=== PATIENT | female | born 1950 | race Caucasian/White ===

== ENCOUNTER → 2017-07-19 17:16 | Outpatient (CLI) | payer MEDICARE, OTHER, SELFPAY | PROVIDERS: Family Provider Family Medicine Geriatric Medicine; PCP Family Medicine Geriatric Medicine; Visit Provider Family Medicine Geriatric Medicine | DX: Z13.89 Encounter for screening for other disorder (principal); E55.9 Vitamin D deficiency, unspecified; I10 Essential (primary) hypertension | CPT/HCPCS: 36415; 80053; 82306; 84443; 86803 ==

== ENCOUNTER → 2017-07-20 09:21 | Outpatient (CLI) | payer MEDICARE, OTHER, SELFPAY ==
[2017-07-20 12:20] LABS: Absolute Lymphocyte Count 1.59 X10^3/ul (0.83-4.51); Absolute Neutrophil Count 3.4 X10^3/uL (2.0-7.7); Basophil# 0.01 X10^3/uL; Basophil% 0.2 % (0-1); Eosinophil# 0.06 X10^3/uL; Eosinophils% 1.1 % (0-5); Hematocrit 45.7 % (37-47); Hemoglobin 15.1 g/dl (12.0-15.0); Lymphocyte # 1.59 X10^3/ul (4.0); Lymphocyte % 28.8 % (19-41); Mean Corpuscular Hgb 31.4 pg (27.0-32.0); Mean Platelet Vol. 10.6 fl (6.2-12.0); Monocyte% 9.1 % (0-10); Neutrophil # 3.36 X10^3/uL (2.7-7.7); Neutrophil % 60.8 % (47-70); Platelet Count 331 K/mm3 (150-450); RBC Distribution Width CV 12.6 % (11.6-14.6); RBC Distribution Width SD 43.4 fl (35.1-43.9); Red Blood Count 4.81 M/mm3 (4.2-5.4); White Blood Count 5.5 K/mm3 (4.4-11.0)
[2017-07-20 12:26] LABS: POSITIVE COUNT NO; POSITIVE DIFFERENTIAL NO; POSITIVE MORPHOLOGY NO
[2017-07-20 12:42] LABS: Vitamin D,25 Hydroxy 21.3 ng/mL (29.95-100.01)
[2017-07-20 13:19] LABS: ALB/GLOB Ratio 1.1 RATIO (0.9-2.4); AST(SGOT) 14 U/L (15-37); Alanine Aminotransfer ALT/SGPT 28 U/L (13-56); Albumin, Serum 3.9 g/dL (3.2-5.0); Alkaline Phosphatase 61 U/L (45-117); Anion Gap 6 (5-15); BUN 15 mg/dL (7-18); BUN/Creat Ratio 20.1 RATIO (10-20); Calcium,Total 8.4 mg/dL (8.5-10.1); Chloride 112 mmol/L (98-107); Creatinine, Serum 0.75 mg/dL (0.55-1.02); EST Glomerular Filtration Rate 82 mL/min (>60); Est Glom Filt Rate - Afr Amer 99 mL/min (>60); Globulin 3.5 g/dL (2.2-4.2); Glucose 104 mg/dL (74-106); Potassium 3.8 mmol/L (3.5-5.1); Protein, Total 7.4 g/dL (6.4-8.2); Sodium Level 143 mmol/L (136-145); Thyroid Stim Hormone (TSH) 2.02 uIU/mL (0.358-3.74)
[2017-07-21 10:55] LABS: Hep C Antibodies <0.1 s/co ratio (0.0-0.9)
== END ==
PROVIDERS: Family Provider Family Medicine Geriatric Medicine; PCP Family Medicine Geriatric Medicine; Visit Provider Family Medicine Geriatric Medicine
DX: Z13.89 Encounter for screening for other disorder (principal); E55.9 Vitamin D deficiency, unspecified; I10 Essential (primary) hypertension
CPT/HCPCS: 36415; 80053; 82306; 84443; 85025; 86803

== ENCOUNTER → 2017-07-27 13:44 | Outpatient (CLI) | payer MEDICARE, OTHER, SELFPAY ==
--- NOTE | 2017-07-27 13:52 | VDUE_ITS ---
Reason For Study: Edema Right Proximal Left Proximal Right jugular vein is spontaneous, widely Left jugular vein is spontaneous, widely patent, phasic, with no intraluminal patent, phasic, with no intraluminal echogenicity noted. echogenicity noted. Right subclavian vein is spontaneous, widely Left subclavian vein is spontaneous, widely patent, phasic, with no intraluminal patent, phasic, with no intraluminal echogenicity noted. echogenicity noted. Right Lower Arm Left Arm Right radial vein is compressible. Left axillary vein is spontaneous, patent, Right ulnar vein is compressible. phasic, competent, compressible and Right Arm demonstrates augmentation. Right axillary vein is spontaneous, patent, Left brachial vein is compressible. phasic, competent, compressible and Left cephalic vein is compressible. demonstrates augmentation. Left basilic vein is compressible. Right brachial vein is compressible. Left Lower Arm Right cephalic vein is compressible. Left radial vein is compressible. Right basilic vein is compressible. Left ulnar vein is compressible. < Interpretation Summary Deep veins of the upper extremities are bilaterally patent and compressible segmentally. There is no evidence of deep vein thrombosis on either side. The superficial veins of the upper extremities, the basilic and cephalic veins, are patent and compressible bilaterally. There is no evidence of upper extremity superficial thrombophlebitis on either side involving the veins imaged. Ordering Physician: Parish Plascencia Referring Physician: Parish Plascencia Chi Performed By: Alia Sam RVT
--- NOTE | 2017-07-27 14:20 | CT_ITS ---
STUDY: CT MAXILLOFACIAL SINUSES REASON FOR EXAM: Female, 67 years old. SINUSITIS. LOSS OF BALANCE TO LEFT RADIATION DOSAGE (If Supplied By Facility): CTDIvol = ( 29.38 ) mGy, DLP = ( 606.22 ) mGycm TECHNIQUE: The patient was scanned in a multi detector CT scanner. High resolution axial imaging was performed without the administration of intravenous contrast material. Sagittal and coronal images were reconstructed. Individualized dose optimization techniques were used for this CT. COMPARISON: None. FINDINGS: FRONTAL SINUSES: Normal aeration, without mucosal inflammatory disease. ETHMOIDAL SINUSES: Normal aeration, without mucosal inflammatory disease. MAXILLARY SINUSES: There is a mucous retention cyst and/or polyp of the right maxillary sinus. Mild mucosal thickening of the left maxillary sinus. SPHENOIDAL SINUSES: Mild mucoperiosteal thickening of the sphenoid sinus. There is patency of the bilateral maxillary infundibuli with normal uncinate processes, ethmoid bullae, and hiatus semilunaris. Normal bilateral middle turbinates. Normal bilateral inferior turbinates. Normal midline nasal septum. There is patency of the bilateral nasal airways. Severe degenerative findings of the right and left mandibular condyle. The visualized bilateral orbital contents are normal. CT/Sinus/Facial Bone IMPRESSION: There is a mucous retention cyst and/or polyp of the right maxillary sinus. Mild mucoperiosteal thickening of the sphenoid sinus. Mild mucosal thickening of the left maxillary sinus. Electronically Signed: Angus Rosales MD at 16:51 EDT , Service support ,
== END ==
PROVIDERS: Family Provider Family Medicine Geriatric Medicine; PCP Family Medicine Geriatric Medicine; Visit Provider Family Medicine Geriatric Medicine
DX: J32.9 Chronic sinusitis, unspecified (principal); R60.0 Localized edema
CPT/HCPCS: 70486; 93970

== ENCOUNTER → 2017-08-23 08:56 | Outpatient (CLI) | payer MEDICARE, OTHER, SELFPAY ==
--- NOTE | 2017-08-23 08:59 | BI_ITS ---
MAMMOGRAPHY - BILATERAL SCREENING REASON FOR EXAM: Female, 67 years old. Routine annual screening examination. PERTINENT HISTORY: Mother with breast cancer. TECHNIQUE: Digital bilateral breast oneil (3D mammographic acquisition) in the CC and MLO projections. 2-D mediolateral oblique (MLO) and craniocaudad (CC) views of both breasts were obtained. CAD: Full Field Digital Mammography with Computer Added Detection was performed. COMPARISON: Comparison is made with prior study dated February 02, 2014. FINDINGS: Breast Composition: The breasts are almost entirely fatty. There are no dominant masses or suspicious calcifications. The previously seen nodular density in the mid lateral aspect of the right breast as decreased in size. It presently measures 7.5 mm. This may represent a small intramammary lymph node. No other significant abnormalities are identified. There has been no significant change since the prior study. BI/SCREENING MAMM (CAD), BILAT IMPRESSION: Stable bilateral screening mammogram. Yearly follow-up mammogram recommended. (A) ASSESSMENT CATEGORY: BIRADS Category 2: Benign. A letter regarding these results will be sent to the patient by the facility within 30 days. Approximately 10% of breast cancers are not detected by mammography. A normal mammogram should not delay biopsy of a clinically suspicious abnormality. [id number] Electronically Signed: Billy Mathew MD at 7:55 EDT Tel [phone], Service support ,
--- NOTE | 2017-08-23 09:03 | BD_ITS ---
STUDY: DUAL ENERGY X-RAY ABSORPTIOMETRY / DXA REASON FOR EXAM: Female, 67 years old. The patient is postmenopausal. Loss of height. TECHNIQUE: Bone Mineral Density (BMD) measurements of lumbar spine and bilateral hips were obtained. COMPARISON: Comparison is made with prior study dated May 06, 2009. FINDINGS: Lumbar Spine (L1-L4): g/cm2 (1.646) / T-score (4.0) / Z-score (5.6) Findings are suggestive of normal bone density with a low fracture risk. Left Femur Total: g/cm2 (1.137) / T-score (1.0) / Z-score (2.4) Left Femoral Neck: g/cm2 (0.952) / T-score (-0.6) / Z-score (1.0) Right Femur Total: g/cm2 (1.032) / T-score (0.2) / Z-score (1.5) Right Femoral Neck: g/cm2 (1.001) / T-score (-0.3) / Z-score (1.3) The T-Scores on the most recent prior examination were: Lumbar Spine (L1-L4): There has been improvement of bone density since the previous examination. Left Femur Total: which represents a worsening of 8.3%. Right Femur Total: which represents a worsening of 11.1%. BD/Dexa Bone Density Study IMPRESSION: The patient is considered normal as outlined below according to World Dion Organization (WHO) criteria with a low fracture risk. There has been worsening of bone density since the previous examination. Reference Information: The T-score is the number of standard deviations above or below the standard which is normal for young adults at their peak bone mineral density. The World Health Organization (WHO) interprets the T-scores as follows: Above -1 Normal bone density Between -1 and -2.5 Osteopenia Equal to / or below -2.5 Osteoporosis As a practical clinical guideline, osteopenia may be graded as follows: Mild -1 through -1.5 Moderate -1.6 through -2.0 Severe -2.1 through -2.4 The Z-score is the number of standard deviations above or below age-matched controls. A Z-score of less than -1.5 would be considered abnormal. References: 1. NIH Osteoporosis and Related Bone Diseases http://www.osteo.org 2. International Society for Clinical Densitometry http://www.iscd.org 3. National Osteoporosis Foundation http://www.nof.org Electronically Signed: Billy Mathew MD at 10:56 EDT Tel [phone], Service support ,
== END ==
PROVIDERS: Family Provider Family Medicine Geriatric Medicine; PCP Family Medicine Geriatric Medicine; Visit Provider Family Medicine Geriatric Medicine
DX: Z78.0 Asymptomatic menopausal state (principal); Z12.31 Encounter for screening mammogram for malignant neoplasm of breast
CPT/HCPCS: 77063; 77067; 77080

== ENCOUNTER → 2017-09-13 11:13 | Outpatient (CLI) | payer MEDICARE, OTHER, SELFPAY ==
[2017-09-13 11:59] LABS: Creatinine, Serum 0.78 mg/dL (0.55-1.02); EST Glomerular Filtration Rate 79 mL/min (>60); Est Glom Filt Rate - Afr Amer 95 mL/min (>60)
== END ==
PROVIDERS: Family Provider Family Medicine Geriatric Medicine; PCP Family Medicine Geriatric Medicine; Visit Provider Otolaryngology
DX: H90.A21 Sensorineural hearing loss, unilateral, right ear, with restricted hearing on the contralateral side (principal)
CPT/HCPCS: 36415; 82565

== ENCOUNTER → 2017-09-25 17:08 | Outpatient (CLI) | payer MEDICARE, OTHER, SELFPAY ==
--- NOTE | 2017-09-25 17:15 | RAD_ITS ---
STUDY: X-RAY CHEST REASON FOR EXAM: Female, 67 years old. Shortness of breath. TECHNIQUE: PA and lateral views of the chest. COMPARISON: None. FINDINGS: The lungs are clear and expanded. There is no demonstrated pleural abnormality. Normal size heart. Normal mediastinum and azra. Normal visualized pulmonary arteries. Normal visualized aortic arch and descending thoracic aorta. There are diffuse degenerative changes of the visualized thoracic spine. Normal visualized ribs, clavicles, and shoulders. There is no demonstrated abnormality of the visualized soft tissue structures of the upper abdomen. RAD/Chest PA and Lateral IMPRESSION: No acute cardiopulmonary process. Electronically Signed: Ana Paula Maurer MD at 19:49 EDT Tel , Service support ,
[2017-09-25 18:30] LABS: Absolute Lymphocyte Count 2.06 X10^3/ul (0.83-4.51); Absolute Neutrophil Count 5.7 X10^3/uL (2.0-7.7); Basophil# 0.02 X10^3/uL; Basophil% 0.2 % (0-1); Eosinophil# 0.09 X10^3/uL; Eosinophils% 1.1 % (0-5); Hematocrit 44.9 % (37-47); Lymphocyte # 2.06 X10^3/ul (4.0); Lymphocyte % 24.3 % (19-41); Mean Corp Hgb Conc 33.4 g/gl (32-36); Mean Corpuscular Hgb 31.8 pg (27.0-32.0); Mean Corpuscular Volume 95.3 fL (81-99); Mean Platelet Vol. 10.1 fl (6.2-12.0); Monocyte# 0.64 X10^3/uL; Monocyte% 7.5 % (0-10); Neutrophil # 5.67 X10^3/uL (2.7-7.7); Neutrophil % 66.9 % (47-70); Platelet Count 348 K/mm3 (150-450); RBC Distribution Width CV 12.6 % (11.6-14.6); RBC Distribution Width SD 43.5 fl (35.1-43.9); Red Blood Count 4.71 M/mm3 (4.2-5.4); White Blood Count 8.5 K/mm3 (4.4-11.0)
[2017-09-25 18:41] LABS: D-Dimer Quantitative (DVT/PE) 0.36 FEU/ug/m (0.27-0.49)
[2017-09-25 18:44] LABS: POSITIVE COUNT NO; POSITIVE DIFFERENTIAL NO; POSITIVE MORPHOLOGY NO
[2017-09-25 18:49] LABS: ALB/GLOB Ratio 1.2 RATIO (0.9-2.4); AST(SGOT) 18 U/L (15-37); Alanine Aminotransfer ALT/SGPT 30 U/L (13-56); Albumin, Serum 4.4 g/dL (3.2-5.0); Alkaline Phosphatase 63 U/L (45-117); Anion Gap 11 (5-15); BNP,B-Type NATRIURETIC PEPTIDE 75.9 pg/mL (0-100); BUN 19 mg/dL (7-18); BUN/Creat Ratio 19.9 RATIO (10-20); CPK Total, Creatine Kinase 216 U/L (26-192); Calcium,Total 9.5 mg/dL (8.5-10.1); Chloride 106 mmol/L (98-107); Creatinine, Serum 0.95 mg/dL (0.55-1.02); EST Glomerular Filtration Rate 62 mL/min (>60); Est Glom Filt Rate - Afr Amer 75 mL/min (>60); Globulin 3.8 g/dL (2.2-4.2); Glucose 99 mg/dL (74-106); Potassium 3.1 mmol/L (3.5-5.1); Protein, Total 8.2 g/dL (6.4-8.2); Sodium Level 142 mmol/L (136-145)
[2017-09-27 15:43] LABS: Myoglobin, Serum 57 ng/mL (25-58)
== END ==
PROVIDERS: Family Provider Family Medicine Geriatric Medicine; PCP Family Medicine Geriatric Medicine; Visit Provider Family Medicine Geriatric Medicine
DX: R06.02 Shortness of breath (principal)
CPT/HCPCS: 36415; 71046; 80053; 82550; 83874; 83880; 84484; 85025; 85379

== ENCOUNTER → 2017-09-26 10:43 | Outpatient (CLI) | payer MEDICARE, OTHER, SELFPAY ==
--- NOTE | 2017-09-26 10:46 | VDLE_ITS ---
Reason For Study: LEG SWELLING RIGHT LEFT GSV is normal. GSV is normal. CFV is compressible, spontaneous, phasic, CFV is compressible, spontaneous, phasic, competent and demonstrates normal competent, and demonstrates normal augmentation. augmentation. FV is compressible, spontaneous, phasic, FV is compressible, spontaneous, phasic, competent and demonstrates normal competent and demonstrates normal augmentation. augmentation. POP V is compressible, spontaneous, phasic, POP V is compressible, spontaneous, phasic, competent and demonstrates normal competent and demonstrates normal augmentation. augmentation. T/P Trunk is compressible. T/P Trunk is compressible. PTV is compressible. PTV is compressible. RT PerV is compressible. LT PerV is compressible. Procedure Exam performed in department. A preliminary report was called and/or faxed to Dr. Plascencia. Interpretation Summary Deep veins of the lower extremities are bilaterally patent and compressible segmentally. There is no evidence of deep vein thrombosis on either side. Valvular competence appears intact within the proximal deep venous systems bilaterally. The greater saphenous veins appear bilaterally patent and compressible segmentally. Ordering Physician: Parish Plascencia Referring Physician: Parish Plascencia Chi Performed By: Alia Sam RVT
== END ==
PROVIDERS: Family Provider Family Medicine Geriatric Medicine; PCP Family Medicine Geriatric Medicine; Visit Provider Family Medicine Geriatric Medicine
DX: R60.0 Localized edema (principal)
CPT/HCPCS: 93970

== ENCOUNTER → 2017-10-04 08:48 | Outpatient (CLI) | payer MEDICARE, OTHER, SELFPAY ==
--- NOTE | 2017-10-04 09:56 | ECHOD_ITS ---
Reason For Study: SOB Procedure This was a 2D Doppler, Color Flow transthoracic echocardiogram. Exam performed in department. Left Ventricle Normal size and thickness. The estimated ejection fraction is 65 %. Stage 1 diastolic dysfunction. No regional wall motion abnormalities noted. Right Ventricle Normal size and thickness. Normal systolic function. Atria Normal left atrium. Normal right atrium. Normal atrial septum. Mitral Valve The mitral valve is structurally normal. No prolapse or stenosis seen. Tricuspid Valve Normal tricuspid valve. Trivial tricuspid valve insufficiency. Right ventricular systolic pressure estimated to be 40 mmHg. Mild pulmonary hypertension. Aortic Valve Normal aortic valve. Trisinus/trileaflet aortic valve. Pulmonic Valve Normal pulmonic valve. Great Vessels Normal aortic root. Normal arch. Normal inferior vena cava. Inferior vena cava collapse with sniff. Pericardium/Pleural No pericardial effusion. MMode/2D Measurements & Calculations LVIDd: 4.5 cm IVSd: 1.2 cm Ao root diam: 3.1 cm LVIDs: 3.3 cm LVPWd: 1.2 cm LA dimension: 3.3 cm FS: 25.9 % LAV(MOD-bp): 45.2 ml LVAd ap4: 33.5 cm2 SV(MOD-sp4): 74.5 ml LAV(MOD-bp) Indexed: 20.8 ml/m2 EDV(MOD-sp4): 119.2 ml LAV(MOD-sp2): 55.8 ml EDV(sp4-el): 123.4 ml LAV(MOD-sp4): 34.7 ml LVAs ap4: 18.4 cm2 ESV(MOD-sp4): 44.7 ml ESV(sp4-el): 44.8 ml EF(MOD-sp4): 62.5 % EF(sp4-el): 63.7 % SV(sp4-el): 78.6 ml LA A4 area: 14.7 cm2 RA A4 area: 13.7 cm2 Time Measurements MV dec time: 0.17 sec Doppler Measurements & Calculations MV E max osei: 77.8 cm/sec Lat Peak E' Osei: 8.0 cm/sec Med Peak E' Osei: 8.0 cm/sec MV A max osei: 100.6 cm/sec E/E' lat: 9.8 E/E' med: 9.8 MV E/A: 0.77 Ao V2 max: 159.5 cm/sec LV V1 max: 133.0 cm/sec PA V2 max: 114.8 cm/sec Ao max P.2 mmHg LV V1 max P.1 mmHg TR max osei: 294.4 cm/sec TR max P.8 mmHg Interpretation Summary The estimated ejection fraction is 65 %. Stage 1 diastolic dysfunction. Trivial tricuspid valve insufficiency. Right ventricular systolic pressure estimated to be 40 mmHg. Mild pulmonary hypertension. Comapred to echo report dated 04/07/2010, no appreciable changes noted. Ordering Physician: Parish Plascencia Referring Physician: Parish Plascencia Chi Performed By: Nerissa Pelayo RDCS
--- NOTE | 2017-10-04 11:17 | PFT ---
INTRODUCTION: The patient is a 67-year-old female that presents for pulmonary function testing secondary to a diagnosis of shortness of breath. Respiratory therapy reports good patient effort. Bronchodilators were used during testing. INTERPRETATION: Forced expiration spirometry demonstrates no evidence of a large airways obstructive ventilatory defect. There was no significant response to aerosolized bronchodilators, based upon strict ATS criteria. Spirograms are of good quality and plateau normally. Body plethysmography was performed and reveals lung volumes to be within normal limits. Diffusing capacity by single breath CO is within normal limits at 92% of predicted. IMPRESSION: These pulmonary function studies are essentially within normal limits.
== END ==
PROVIDERS: Family Provider Family Medicine Geriatric Medicine; PCP Family Medicine Geriatric Medicine; Visit Provider Family Medicine Geriatric Medicine
DX: R06.02 Shortness of breath (principal)
CPT/HCPCS: 93306; 94060; 94726; 94729

== ENCOUNTER → 2017-10-09 15:04 | Outpatient (CLI) | payer MEDICARE, OTHER, SELFPAY | PROVIDERS: Family Provider Family Medicine Geriatric Medicine; PCP Family Medicine Geriatric Medicine; Visit Provider Obstetrics & Gynecology | DX: N39.41 Urge incontinence (principal) | CPT/HCPCS: 87086; 87088 ==

== ENCOUNTER → 2017-10-10 13:33 | Outpatient (CLI) | payer MEDICARE, OTHER, SELFPAY ==
[2017-10-10 17:38] LABS: Anion Gap 9 (5-15); BUN 17 mg/dL (7-18); BUN/Creat Ratio 21.1 RATIO (10-20); Calcium,Total 9.2 mg/dL (8.5-10.1); Chloride 104 mmol/L (98-107); EST Glomerular Filtration Rate 75 mL/min (>60); Est Glom Filt Rate - Afr Amer 91 mL/min (>60); Glucose 92 mg/dL (74-106); Sodium Level 143 mmol/L (136-145)
== END ==
PROVIDERS: Family Provider Family Medicine Geriatric Medicine; PCP Family Medicine Geriatric Medicine; Visit Provider Family Medicine Geriatric Medicine
DX: I27.0 Primary pulmonary hypertension (principal)
CPT/HCPCS: 36415; 80048

== ENCOUNTER → 2017-10-19 09:27 | Outpatient (CLI) | payer MEDICARE, OTHER, SELFPAY ==
[2017-10-19 11:52] LABS: Anion Gap 8 (5-15); BUN 12 mg/dL (7-18); BUN/Creat Ratio 16.8 RATIO (10-20); Calcium,Total 8.5 mg/dL (8.5-10.1); Chloride 105 mmol/L (98-107); Creatinine, Serum 0.72 mg/dL (0.55-1.02); EST Glomerular Filtration Rate 86 mL/min (>60); Est Glom Filt Rate - Afr Amer 104 mL/min (>60); Glucose 111 mg/dL (74-106); Potassium 3.6 mmol/L (3.5-5.1); Sodium Level 141 mmol/L (136-145)
== END ==
PROVIDERS: Family Provider Family Medicine Geriatric Medicine; PCP Family Medicine Geriatric Medicine; Visit Provider Family Medicine Geriatric Medicine
DX: E87.6 Hypokalemia (principal)
CPT/HCPCS: 36415; 80048

== ENCOUNTER → 2018-01-23 09:35 | Outpatient (CLI) | payer MEDICARE, OTHER, SELFPAY ==
[2018-01-23 13:05] LABS: Absolute Lymphocyte Count 2.18 X10^3/ul (0.83-4.51); Absolute Neutrophil Count 3.7 X10^3/uL (2.0-7.7); Basophil# 0.01 X10^3/uL; Basophil% 0.2 % (0-1); Eosinophil# 0.09 X10^3/uL; Eosinophils% 1.4 % (0-5); Hematocrit 49.2 % (37-47); Hemoglobin 16.1 g/dl (12.0-15.0); Lymphocyte # 2.18 X10^3/ul (4.0); Lymphocyte % 33.1 % (19-41); Mean Corp Hgb Conc 32.7 g/gl (32-36); Mean Corpuscular Hgb 31.8 pg (27.0-32.0); Mean Corpuscular Volume 97.2 fL (81-99); Mean Platelet Vol. 11.3 fl (6.2-12.0); Monocyte# 0.62 X10^3/uL; Monocyte% 9.4 % (0-10); Neutrophil # 3.68 X10^3/uL (2.7-7.7); Neutrophil % 55.7 % (47-70); Platelet Count 349 K/mm3 (150-450); RBC Distribution Width CV 12.6 % (11.6-14.6); RBC Distribution Width SD 44.6 fl (35.1-43.9); Red Blood Count 5.06 M/mm3 (4.2-5.4); White Blood Count 6.6 K/mm3 (4.4-11.0)
[2018-01-23 13:32] LABS: AST(SGOT) 15 U/L (15-37); Alanine Aminotransfer ALT/SGPT 34 U/L (13-56); Alkaline Phosphatase 69 U/L (45-117); Anion Gap 9 (5-15); BUN 14 mg/dL (7-18); BUN/Creat Ratio 17.7 RATIO (10-20); Calcium,Total 8.8 mg/dL (8.5-10.1); Chloride 105 mmol/L (98-107); Creatinine, Serum 0.79 mg/dL (0.55-1.02); EST Glomerular Filtration Rate 77 mL/min (>60); Est Glom Filt Rate - Afr Amer 93 mL/min (>60); Globulin 4.1 g/dL (2.2-4.2); Glucose 106 mg/dL (74-106); Potassium 3.6 mmol/L (3.5-5.1); Protein, Total 8.1 g/dL (6.4-8.2); Sodium Level 140 mmol/L (136-145); Thyroid Stim Hormone (TSH) 2.03 uIU/mL (0.358-3.74)
[2018-01-23 14:08] LABS: POSITIVE COUNT NO; POSITIVE DIFFERENTIAL NO; POSITIVE MORPHOLOGY NO
== END ==
PROVIDERS: Family Provider Family Medicine Geriatric Medicine; PCP Family Medicine Geriatric Medicine; Visit Provider Family Medicine Geriatric Medicine
DX: E55.9 Vitamin D deficiency, unspecified (principal); I10 Essential (primary) hypertension
CPT/HCPCS: 36415; 80053; 82306; 84443; 85025

== ENCOUNTER → 2018-02-06 15:30 | Outpatient (CLI) | payer MEDICARE, OTHER, SELFPAY ==
[2018-01-31 09:09] VITALS: BMI 34.8
--- NOTE | 2018-02-06 15:30 | MASS_PTH ---
PATIENT: ELY HERNÁNDEZ LOC: [facility] U#:[id number] AGE/SX: 75/F ROOM: RE02/06/[address]: Dr. Dragan Webb MD : 1950 BED: DIS: SPEC #: [id number] RECD: 02/07/18 08:10 STATUS: MARYBEL REZac #: [id number] JSOE: 02/06/18 15:[address]: Dragan Webb DEPT: SURGICAL PATHOLOGY RECD BY: Manish Treadwell ENTERED: 02/07/18 09:02 SP TYPE: Mass OTHR DR: Dr. Parish Plascencia MD Tissues: Scalp, NOS Procedures: Surgery Specimen Level III HEADER OPERATION: Excision scalp mass PRE-OP DIAGNOSIS: Scalp mass TISSUE SUBMITTED: Scalp tissue MICROSCOPIC DIAGNOSIS Scalp mass, excision: Trichilemmal cyst with focal calcifications. SJ:jacoyb 02/08/18 MICROSCOPIC DESCRIPTION Slides are reviewed. GROSS DESCRIPTION Received in fixative is one container labeled with the patient's name and designated scalp. The specimen consists of a piece of rudd-white skin with underlying tissue. The skin piece measures 3.5 x 0.6 cm. The underlying tissue measures 3 x 2.5 x 2 cm. Also present in the container is a detached piece of skin measuring 1.5 x 0.3 x 0.3 cm. The underlying tissue is partly disrupted and appears to consist of cysts. Watch Engineer sections are submitted in two cassettes. / SJ:jacoby 02/07/18 TC:5 CPT: 58993
== END ==
PROVIDERS: Family Provider Family Medicine Geriatric Medicine; PCP Family Medicine Geriatric Medicine; Referring Provider Surgery; Visit Provider Surgery
DX: R22.0 Localized swelling, mass and lump, head (principal)
CPT/HCPCS: 88304; 88305

== ENCOUNTER → 2018-05-08 06:22 | Outpatient (CLI) | payer MEDICARE, OTHER, SELFPAY ==
[2018-01-31 09:09] VITALS: BMI 34.8
--- NOTE | 2018-05-08 13:12 | STRESSREP ---
Stress Test Report Exercise myocardial perfusion stress test. 68-year-old man with a history of dyspnea. Medications: Pravastatin furosemide amlodipine. Stress protocol: Resting EKG demonstrates normal sinus rhythm with a rate of 77 bpm resting blood pressure 168/90 mmHg. The patient exercised according to the regular Berhane protocol for total duration of 6 minutes. The maximum heart rate attained was 136 bpm which was 89% of maximum predicted heart rate the maximum workload was 7 metabolic equivalents. At rest nonspecific ST-T wave changes were noted. The patient maintained sinus rhythm throughout the recording. At peak exercise there was upsloping ST depression of 1.4 mm not meeting the criteria for ischemia in lead II and aVF and V5 and V6 being less than 1 mm. The resting blood pressure 168/90 with a peak blood pressure 194/80 mmHg. Myocardial perfusion protocol. 14.6 mCi of technetium 99m sestamibi was injected at rest. The patient exercised according to regular Berhane protocol for 6 minutes. At peak exercise 44.1 mCi of technetium 99m sestamibi was injected stress images were obtained stress and rest images were reconstructed and compared in the short axis vertical long horizontal long axis. Gated images were also obtained. Perfusion SPECT analysis: Review of the stress images demonstrate normal uptake of tracer noted in all areas of the myocardium. There is significant GI attenuation artifact noted on the stress and resting images. No obvious ischemia is noted in this area. The gated ejection fraction is noted to be 70%. Conclusion: Exercise myocardial perfusion stress test with no obvious ischemia noted. Preserved ejection fraction. Good functional capacity.
== END ==
PROVIDERS: Family Provider Family Medicine Geriatric Medicine; PCP Family Medicine Geriatric Medicine; Referring Provider Internal Medicine Pulmonary Disease; Visit Provider Internal Medicine Pulmonary Disease
DX: R06.00 Dyspnea, unspecified (principal)
CPT/HCPCS: 78452; 93017; A9500; A4216

== ENCOUNTER → 2018-06-04 16:23 | Outpatient (CLI) | payer MEDICARE, OTHER, SELFPAY ==
[2018-01-31 09:09] VITALS: BMI 34.8
--- NOTE | 2018-06-04 15:59 | LES_PTH ---
PATIENT: ELY HERNÁNDEZ LOC: [facility] U#:[id number] AGE/SX: 75/F ROOM: RE06/04/[address]: Dr. Parish Plascencia MD : 1950 BED: DIS: SPEC #: [id number] RECD: 06/05/18 12:59 STATUS: MARYBEL JULIETH #: [id number] JOSE: 06/04/18 15:[address]: Parish Plascencia Chi DEPT: SURGICAL PATHOLOGY RECD BY: Manish Treadwell Tissues: Skin of face, NOS Procedures: Surgery Specimen Level IV HEADER OPERATION: Not noted PRE-OP DIAGNOSIS: L81.9 TISSUE SUBMITTED: Left cheek MICROSCOPIC DIAGNOSIS Left cheek, skin lesion, shave biopsy: Seborrheic keratosis. CE:jacoby 06/06/18 MICROSCOPIC DESCRIPTION Slides are reviewed. GROSS DESCRIPTION Received in fixative is one container labeled with the patient's name and designated left cheek. The specimen consists of a piece of rudd-white skin measuring 1.2 x 1 cm and 0.2 cm in thickness. The specimen is inked, serially sectioned and submitted entirely in one cassette. / SJ:rg 06/05/18 TC:1 CPT: 71346
== END ==
PROVIDERS: Family Provider Family Medicine Geriatric Medicine; PCP Family Medicine Geriatric Medicine; Visit Provider Family Medicine Geriatric Medicine
DX: L81.9 Disorder of pigmentation, unspecified (principal)
CPT/HCPCS: 88305

== ENCOUNTER 2018-06-20 10:03 | Emergency (ER) | payer MEDICARE, OTHER, SELFPAY ==
[2018-01-31 09:09] VITALS: BMI 34.8
[2018-06-20 10:03] VITALS: BP 162/97; PULSE 79; RESP 16; TEMP 36.4; O2SAT 96; BMI 36.3
--- NOTE | 2018-06-20 10:22 | CT_ITS ---
STUDY: CT BRAIN WITHOUT CONTRAST REASON FOR EXAM: Female, 68 years old. Vertigo. RADIATION DOSAGE (If Supplied By Facility): CTDIvol = ( 44.99 ) mGy, DLP = ( 762.36 ) mGycm TECHNIQUE: Transaxial CT imaging of the brain was performed without administration of intravenous contrast material. Individualized dose optimization techniques were used for this CT. COMPARISON: No relevant priors. FINDINGS: Normal soft tissue structures. There is hyperostosis frontalis internus. Normal size ventricles and extra-axial spaces for the patient's age. Normal white matter tracts of the cerebral hemispheres. Normal basal ganglia and thalami. Normal brainstem. Normal cerebellum. There is no intracranial hemorrhage. There are no findings of an acute ischemic infarction. Mucosal polyp or retention cyst at the base of the right maxillary sinus. CT/Brain/Head without Contrast IMPRESSION: Retention cyst or polyp at the base of the right maxillary sinus. Electronically Signed: Billy Mathew, at 11:42 EDT , Service support ,
--- NOTE | 2018-06-20 10:22 | EKG12_ITS ---
Test Reason : DIZZINESS Blood Pressure : / mmHG Vent. Rate : 075 BPM Atrial Rate : 075 BPM P-R Int : 170 ms QRS Dur : 096 ms QT Int : 406 ms P-R-T Axes : 044 007 055 degrees QTc Int : 453 ms Normal sinus rhythm with sinus arrhythmia Nonspecific ST abnormality Poor R-Wave Progression Abnormal ECG Confirmed by BLESSING GORMAN, PELON ([id number]), desk editor GRANT CARTER ([id number]) on 06/24/2018 10:23:08 AM Referred By: CELSO Confirmed By:PELON FUNK MD
--- NOTE | 2018-06-20 10:29 | ED.DCSUM_ITS ---
- ER Visit Summary Date of Service: 06/20/18 Chief Complaint: Dizziness History of Present Illness: The patient is a 68 F who presents with dizziness that has been intermittent over the past week. Patient describes her dizziness as feeling off balance and the room was spinning. Patient states this is worse with certain movements and improves when she just remains still. Patient states she does have some tinnitus which is a buzzing sound that only last for a couple seconds. Patient does admit to some decreased hearing. Patient also admits to a left occipital headache that she describes as a fullness. Patient also admits to some paresthesias in the left side of her face. Physical Examination: Vital signs are stable. Patient is afebrile. Patient is in no acute distress. Pupils are equal, round, and reactive to light bilaterally. Extraocular muscles are intact. There is no nystagmus noted. There is a mild effusion behind the right tympanic membrane but there is no erythema. The left tympanic membrane is clear. Oral mucosa is pink and moist. Neck is supple. Trachea is midline. There is no JVD noted. Heart was regular rate and rhythm. Lungs are clear and equal bilateral. Skin is warm dry. Cranial nerves II through XII are intact. There are no focal motor or sensory deficits noted. The remaining physical exam is within normal limits. Test Results: EKG showed normal sinus rhythm with a rate of 75. There are no acute ST or T wave changes noted. CBC, basic metabolic profile, troponin, and urinalysis were obtained and were normal. PA and lateral chest x-ray was obtained and was normal. CT scan of the brain was obtained. There is no acute intracranial abnormality. Emergency Department Course and Treatment: Patient was given a dose of meclizine here. Patient felt better on reevaluation. Patient was given a prescription for meclizine. Patient was instructed to follow-up with her primary care physician in 5-7 days. Patient understood and was agreeable with the plan. All questions were answered. Disposition: Discharge home Impression: Dizziness This note was generated with [employer] dictation software. It may contain incorrect words, spelling, and punctuation that were not noted in review of the chart prior to signing ED Disposition - Plan for ED Patient: Disposition: Home or Assisted Living Diagnosis: Dizziness Instructions: ED Dizziness [facility] Prescriptions: Meclizine HCl [Antivert] 25 mg PO 4X/DAY PRN PRN #20 tab PRN Reason: Dizziness Referrals: Parish Plascencia Chi, MD [Primary Care Provider] - 5-7 Days
[2018-06-20 10:57] LABS: Absolute Lymphocyte Count 2.06 X10^3/ul (0.83-4.51); Absolute Neutrophil Count 3.2 X10^3/uL (2.0-7.7); Basophil# 0.01 X10^3/uL; Basophil% 0.2 % (0-1); Eosinophil# 0.11 X10^3/uL; Eosinophils% 1.8 % (0-5); Hematocrit 47.1 % (37-47); Hemoglobin 15.7 g/dl (12.0-15.0); Lymphocyte # 2.06 X10^3/ul (4.0); Lymphocyte % 34.1 % (19-41); Mean Corp Hgb Conc 33.3 g/gl (32-36); Mean Corpuscular Hgb 30.7 pg (27.0-32.0); Mean Platelet Vol. 10.2 fl (6.2-12.0); Monocyte# 0.64 X10^3/uL; Monocyte% 10.6 % (0-10); Neutrophil # 3.22 X10^3/uL (2.7-7.7); Neutrophil % 53.3 % (47-70); Platelet Count 348 K/mm3 (150-450); RBC Distribution Width CV 12.3 % (11.6-14.6); Red Blood Count 5.12 M/mm3 (4.2-5.4)
[2018-06-20 10:58] LABS: POSITIVE COUNT NO; POSITIVE DIFFERENTIAL NO; POSITIVE MORPHOLOGY NO
[2018-06-20 11:00] LABS: Bacteria 0 SEEN /hpf (None Seen)
[2018-06-20 11:04] LABS: Color, Urine Yellow (Yellow); Glucose, Dipstick Normal (Normal); Ketone-Dipstick 5 mg/dl (Negative); Leukocyte Esterase-Dipstick 25 /ul (Negative); Nitrite-Dipstick Negative (Negative); Occult Blood-Urine 10 /ul (Negative); Protein-Dipstick 15 mg/dl (Negative); Specific Gravity, Urine 1.025 (1.002-1.030); Urine Clarity Clear (Clear); Urine Urobilinogen 1 mg/dl (Normal)
[2018-06-20 11:06] LABS: Urine Bilirubin Dipstick 1 mg/dL (Negative)
[2018-06-20 11:10] LABS: Mucous, Urine 3+ /hpf (<or=2+); Squamous Epithelial Cells - UA 0-5 SEEN /hpf (5-10); White Blood Cells 0-5 SEEN /hpf (0-5)
--- NOTE | 2018-06-20 11:10 | RAD_ITS ---
STUDY: X-RAY CHEST REASON FOR EXAM: Female, 68 years old. Chest pain. TECHNIQUE: AP and lateral views of the chest. COMPARISON: Comparison is made with prior study dated April 14, 2010. FINDINGS: The lungs are clear and expanded. Scattered calcified granulomas. There is no demonstrated pleural abnormality. Normal size heart. Normal mediastinum and azra. Normal visualized pulmonary arteries. There is atherosclerotic tortuosity of the aortic arch and descending thoracic aorta. Normal visualized thoracic spine. Normal visualized ribs, clavicles, and shoulders. There is no demonstrated abnormality of the visualized soft tissue structures of the upper abdomen. RAD/Chest PA and Lateral IMPRESSION: Normal x-ray examination of the chest. Electronically Signed: Billy Mathew, at 11:43 EDT , Service support ,
[2018-06-20 11:11] LABS: Red Blood Cells-Urine 0-5 SEEN /hpf (0-5)
[2018-06-20 11:17] LABS: Anion Gap 6 (5-15); BUN 19 mg/dL (7-18); BUN/Creat Ratio 25.8 RATIO (10-20); Calcium,Total 8.9 mg/dL (8.5-10.1); Chloride 107 mmol/L (98-107); Creatinine, Serum 0.74 mg/dL (0.55-1.02); EST Glomerular Filtration Rate 83 mL/min (>60); Est Glom Filt Rate - Afr Amer 101 mL/min (>60); Estimated Creatinine Clearance 52.36 ml/min; Glucose 118 mg/dL (74-106); Potassium 3.8 mmol/L (3.5-5.1); Sodium Level 141 mmol/L (136-145)
[2018-06-20] MEDS: Meclizine HCl 25 MG Tablet PO (11:36)
[2018-06-20 11:37] VITALS: BP 158/63; BP 158/80; BP 165/92; PULSE 73; PULSE 75; PULSE 78
[2018-06-20 13:13] VITALS: BP 170/67; PULSE 82; RESP 20; O2SAT 94
[2018-06-20 13:30] VITALS: BP 170/67; PULSE 68; RESP 16; O2SAT 97
== END 2018-06-20 13:30 | disposition home or self-care (01) ==
PROVIDERS: Emergency Provider Emergency Medicine; Family Provider Family Medicine Geriatric Medicine; PCP Family Medicine Geriatric Medicine
DX: R42 Dizziness and giddiness (principal); I10 Essential (primary) hypertension; M79.7 Fibromyalgia; Z79.82 Long term (current) use of aspirin; Z79.899 Other long term (current) drug therapy
CPT/HCPCS: 70450; 71046; 80048; 81001; 84484; 85025; 93005; 99285; A4216

== ENCOUNTER → 2018-06-24 14:57 | Outpatient (CLI) | payer MEDICARE, OTHER, SELFPAY ==
[2018-06-24 10:03] VITALS: BMI 36.9
[2018-06-24 15:48] LABS: Partial Thromboplast Time 27.9 Seconds (24.1-36.2); Prothrombin Time (Protime)PT. 13.3 SECONDS (11.7-14.9)
== END ==
LOC: OLS.ABSOLU 14:59 → LAB 15:09
PROVIDERS: Internal Medicine Cardiovascular Disease; Family Provider Family Medicine Geriatric Medicine; PCP Family Medicine Geriatric Medicine; Referring Provider Family Medicine Geriatric Medicine; Visit Provider Family Medicine Geriatric Medicine
DX: R07.9 Chest pain, unspecified (principal)
CPT/HCPCS: 36415; 85610; 85730

== ENCOUNTER → 2018-07-09 16:15 | Outpatient (CLI) | payer MEDICARE, OTHER, SELFPAY ==
[2018-07-01 08:12] VITALS: BMI 36.9
--- NOTE | 2018-07-09 16:20 | RAD_ITS ---
STUDY: X-RAY - LUMBAR SPINE REASON FOR EXAM: Female, 68 years old. Lower back pain TECHNIQUE: 3 view(s) of the lumbar spine were obtained. COMPARISON: None FINDINGS: Mild levoscoliosis. Normal lumbar lordosis. En bloc anterior listhesis of L3-L4 relative to L2 and L5, grade 1. Otherwise normal alignment. Normal vertebral body height. Mild osteopenia. Moderate disc narrowing L1-L2, mild L2-L3, L3-L4, L4-L5 and L5-S1. Prominent facet hypertrophy L2-L3, L3-L4 and L4-L5.). L4-L5. RAD/Lumbar Spine 2 or 3 Views IMPRESSION: Spondylosis, scoliosis and spondylolisthesis as noted above. Electronically Signed: Alejandro Hartman MD at 10:57 EDT Tel , Service support ,
== END ==
PROVIDERS: Family Provider Family Medicine Geriatric Medicine; PCP Family Medicine Geriatric Medicine; Referring Provider Family Medicine Geriatric Medicine; Visit Provider Family Medicine Geriatric Medicine
DX: M54.5 Low back pain (principal)
CPT/HCPCS: 72100

== ENCOUNTER 2018-07-19 09:46 | Day surgery (SDC) | payer MEDICARE, OTHER, SELFPAY ==
[2018-06-24 10:03] VITALS: BMI 36.9
--- NOTE | 2018-06-24 12:30 | HP_ITS ---
HPI HPI Surgical H&P: Yes Details: This is a 68-year-old white female who presents today for outpatient cardiovascular consultation based upon concerns of ongoing chest discomfort, shortness of breath/dyspnea, and fatigue superimposed upon a history of underlying pulmonary hypertension and obstructive sleep apnea. She states that despite her noninvasive cardiopulmonary evaluation thus far she continues with concerns of chest discomfort, dyspnea, and fatigue, all especially with exercise/exertion which improves with rest. However she states even at certain times at rest she will feel an underlying chest discomfort as well as feel somewhat more short of breath and dyspneic. She notes that she has not had orthopnea or PND or worsening peripheral pitting edema. There is been no near syncope or syncope. She describes her chest discomfort as somewhat of a chest pressure sensation. Occasionally she states she gets a separate sharp chest discomfort. She has undergone noninvasive studies. From a cardiovascular standpoint it appears that in October 2017 she had a transthoracic echocardiogram performed. The results are as noted below. More recently in May of this year she had a pharmacologic stress nuclear imaging study performed. The results are as noted below. She had an ECG in the office today. She was noted to be in sinus rhythm with poor R wave progression. She states that her wired sweatband cutter does not feel that her underlying pulmonary disease process explains her symptoms. She states her primary care physician has been concerned about her symptoms being related to a cardiovascular etiology despite the results of her previous noninvasive studies. Intake Vital Signs 06/24/18 Height 5 ft 7 in 06/24/18 Weight: 236 lb 06/24/18 Body Mass Index (BMI) 36.9 06/24/18 Blood Pressure 160/90 H 06/24/18 Blood Pressure Location Rt brachial 06/24/18 Blood Pressure Position Sitting 06/24/18 Respiratory Rate 18 06/24/18 Pulse Rate 76 06/24/18 Pulse Source Auscultation 06/24/18 Body Mass Index (BMI) 36.3 Intake Visit Reasons: Dyspnea/Ref. Sibilia Practice Manager Required: No Accompanied by: Self Allergies codeine Allergy (Mild, Verified 06/24/18 10:03) roaring sounds, hives Penicillins Allergy (Mild, Verified 06/24/18 10:03) hives Medications citalopram 20 mg tablet 20 mg PO QDAY 10/09/17 [History Confirmed 06/24/18] potassium chloride ER 20 mEq tablet,extended release 20 meq PO DAILY 06/17/18 [History Confirmed 06/24/18] Meclizine HCl [Antivert] 25 mg PO 4X/DAY PRN PRN #20 tab 06/20/18 [Rx Confirmed 06/24/18] amlodipine 5 mg tablet 5 mg PO DAILY #1 tab 06/24/18 [Rx Confirmed 06/24/18] aspirin 81 mg tablet,delayed release 81 mg PO DAILY #30 tab 06/24/18 [Rx Confirmed 06/24/18] clopidogrel 75 mg tablet 75 mg PO DAILY #30 tab 06/24/18 [Rx Confirmed 06/24/18] ergocalciferol (vitamin D2) 50,000 unit capsule 50,000 unit PO QWEEK 06/24/18 [History Confirmed 06/24/18] furosemide 40 mg tablet 60 mg PO DAILY tab 06/24/18 [History Confirmed 06/24/18] olmesartan 40 mg-hydrochlorothiazide 12.5 mg tablet 1 tab PO DAILY 06/24/18 [History Confirmed 06/24/18] oxybutynin chloride ER 5 mg tablet,extended release 24 hr 5 mg PO QDAY tab 06/24/18 [History Confirmed 06/24/18] pravastatin 40 mg tablet 40 mg PO DAILY 06/24/18 [History Confirmed 06/24/18] [facility] Medical History Pulmonary hypertension (Chronic) Essential hypertension (Chronic) Sebaceous cyst (Acute) Mood disorder (Acute) Edema (Acute) Hyperlipidemia (Chronic) Osteoarthritis (Acute) HESHAM (obstructive sleep apnea) (Chronic) Hypertension (Inactive) Surgical History History of (Resolved) History of tonsillectomy (Resolved) S/P dilation and curettage (Resolved) S/P partial thyroidectomy (Resolved) S/P right knee arthroscopy (Resolved) exploratory surgery (Resolved) Family History Father Heart disease Hypertension Hyperlipidemia Mother Diabetes Breast cancer Heart disease Hypertension Hyperlipidemia Sister CVA (cerebral vascular accident) Social History Smoking Status: Never smoker alcohol intake: never substance use type: does not use caffeine: Yes eating out: rarely or never what type of physical activity do you participate in: none seatbelt use: always do you feel safe at home: Yes additional social history: [id number] at [employer] Patient is retired ROS Const Const: Positive for fatigue; negative for weakness, frequent falls, excessive sweating, weight gain or weight loss Eyes Eyes: Negative for transient loss of vision, blurry vision or change in vision ENT ENT: Positive for dizziness (Went to ED on meclizine which has helped) and balance problems (unsteadiness with ambulation) Cardio Chest Pain: Yes Character: sharp, other (heavy) Onset: at rest, exercise Location: mid sternal Duration: minutes Palpitations: Yes (occasional) feels like its: fast, other (flip flop) Edema: Bilateral (slight) Muscle aches with walking: None Resp Respiratory: Positive for SOB with activity (baseline); negative for SOB at rest Additional Details: wears CPAP @ night with oxygen GI GI: Negative vomiting or vomiting blood/hematemesis : Negative for hematuria Musc Musc: Positive for balance problems (unsteadiness with ambulation); negative for muscle aches/ myalgia, muscle weakness or joint pain Skin Skin: Negative non-healing lesions or rash Neuro Neuro: Positive for dizziness (Went to ED on meclizine which has helped); negative for lightheadedness, orthostatic symptoms, frequent falls, weakness or blurry vision Shashank Hematologic/Lymphatic: Negative for easy bleeding Endo Endo: Positive for fatigue; negative for excessive sweating Psych Psych: Negative for anxiety or depression Allergy Allergy/Immunology: Negative for hives, Negative for rash Cardiology Exam Const Appearance: cooperative, healthy appearing, comfortable, no acute distress, well developed and well groomed Nutritional Appearance: overweight Orientation: alert, awake and oriented x3 Head Head: normal to inspection, normocephalic and atraumatic Ears: hearing grossly normal bilaterally Nose: external nose normal Face and Sinus: face symmetric Mouth: oral mucosae normal Teeth and gingiva: fair dentition Eyes Eyelids: eyelids normal Conjunctivae: conjunctivae normal Pupils: PERRL EOM: EOM intact bilaterally Neck Neck: normal visual inspection and full ROM Carotids: normal carotid upstroke Chest Chest inspection: normal inspection of the chest, symmetric chest movement and normal respiratory effort Auscultation: Bilateral: Clear to Auscultation Cardio Palpation: normal PMI Rate: regular rate Rhythm: regular rhythm Heart sounds: S1 normal and S2 normal GI GI: normal to inspection, soft and bowel sounds present Neuro General: alert, awake, oriented x3, gait normal and moves all extremities Skin Skin: no rashes or lesions noted Extremities Pulses: Normal: Right Radial Pulse, Left Radial Pulse Lower Extremity Edema: Trace: Bilateral Psych Psychological: normal affect Assessment & Plan 1. Chest pain, unspecified type R07.9 Plan She does have chest discomfort. She has both chest pressure and at times a sharp discomfort. Thus there may be more than one etiology for her chest discomfort. From a cardiac standpoint there are concerns as to whether or not she does have any evidence of underlying cardiovascular disease especially CAD contributing to her symptoms that was not detected on her for exercise tolerance test/imaging study. At the present time she will continue medical management. She will initiate additional medical therapy with aspirin 81 mg a day and antiplatelet therapy with clopidogrel/Plavix 75 mg a day. She will be asked to undergo further evaluation with diagnostic cardiac catheterization. The procedure and risks were discussed with her. She was agreeable to this approach. Orders Orders: Left & Right Heart Cath Today Partial Thromboplast Time Today Prothrombin Time w/INR Today 2. Dyspnea, unspecified type R06.00 Plan She does have shortness of breath and dyspnea. Again the etiology may be multifactorial. However in the interim based on the cardiovascular concerns she will continue her cardiac evaluation. With respect to her cardiac catheterization this will include a right/left cardiac catheterization to further assess her underlying cardiopulmonary status. Orders Orders: Left & Right Heart Cath Today 3. Fatigue, unspecified type R53.83 Plan She does have progressive fatigue. She has been evaluated noninvasively. Recently she had laboratory studies performed. She was not anemic. At the present time she will continue her cardiopulmonary evaluation as noted above. Orders Orders: Left & Right Heart Cath Today 4. Pulmonary HTN I27.20 Plan She has a history of pulmonary hypertension. This may be secondary to her obstructive sleep apnea. This will be reassessed during her diagnostic cardiac catheterization with respect to right heart catheterization. Hopefully this will be helpful to her wired sweatband cutter. Orders Orders: 12 Lead EKG performed by [facility] Today Left & Right Heart Cath Today 5. Edema, unspecified type R60.9 Plan She does have trace bilateral lower extremity pitting pedal edema. This could be related to multiple etiologies including concerns of her obstructive sleep apnea and pulmonary hypertension and right-sided involvement. At the present time she will continue her medical management. She will be reassessed as noted above. 6. Hyperlipidemia, unspecified hyperlipidemia type E78.5 Plan She does have a history of hyperlipidemia. She is on lipid-lowering therapy. Orders Orders: Left & Right Heart Cath Today 7. Essential hypertension I10 Plan She does have a history of hypertension. She states her amlodipine was recently discontinued because of low blood pressures. Her ARB was altered because of concerns of recalls on her previous ARB. At the moment her blood pressure is elevated. She states it has been elevated since discontinuation of her amlodipine therapy. Thus she will reinitiate amlodipine at 5 mg a day. She will continue to monitor her blood pressures. Orders Orders: 12 Lead EKG performed by BMS Today Left & Right Heart Cath Today Plan Detail Other Medications New: aspirin 81 mg PO DAILY 30 tabs 0RF clopidogrel (Plavix) 75 mg PO DAILY 30 tabs 3RF amlodipine 5 mg PO DAILY 1 tab 0RF Additional Comments Thank you for allowing us to participate in the patients plan of care, if you have any questions please do not hesitate to call. This note was generated with [employer] dictation software. It may contain incorrect words, spelling, and punctuation that were not noted in checking the note before signing. Follow Up 6 Weeks (PFM) Coding Level of Care Code Off vis,new,level 5 Diagnoses Chest pain, unspecified type R07.9 ??Chest pain type: unspecified Dyspnea, unspecified type R06.00 ??Dyspnea type: unspecified Fatigue, unspecified type R53.83 ??Fatigue type: unspecified Pulmonary HTN I27.20 Edema, unspecified type R60.9 ??Edema type: unspecified Hyperlipidemia, unspecified hyperlipidemia type E78.5 ??Hyperlipidemia type: unspecified Essential hypertension I10 Coding Level of Care Code Off vis,new,level 5 Diagnoses Chest pain, unspecified type R07.9 ??Chest pain type: unspecified Dyspnea, unspecified type R06.00 ??Dyspnea type: unspecified Fatigue, unspecified type R53.83 ??Fatigue type: unspecified Pulmonary HTN I27.20 Edema, unspecified type R60.9 ??Edema type: unspecified Hyperlipidemia, unspecified hyperlipidemia type E78.5 ??Hyperlipidemia type: unspecified Essential hypertension I10 Supplemental Info Supplemental Information Transthoracic echocardiogram: 10-04-17 Interpretation Summary The estimated ejection fraction is 65 %. Stage 1 diastolic dysfunction. Trivial tricuspid valve insufficiency. Right ventricular systolic pressure estimated to be 40 mmHg. Mild pulmonary hypertension. Compared to echo report dated 04/07/2010, no appreciable changes noted. Stress test: 05-08-18 Exercise myocardial perfusion stress test. 68-year-old man with a history of dyspnea. Medications: Pravastatin furosemide amlodipine. Stress protocol: Resting EKG demonstrates normal sinus rhythm with a rate of 77 bpm resting blood pressure 168/90 mmHg. The patient exercised according to the regular Berhane protocol for total duration of 6 minutes. The maximum heart rate attained was 136 bpm which was 89% of maximum predicted heart rate the maximum workload was 7 metabolic equivalents. At rest nonspecific ST-T wave changes were noted. The patient maintained sinus rhythm throughout the recording. At peak exercise there was upsloping ST depression of 1.4 mm not meeting the criteria for ischemia in lead II and aVF and V5 and V6 being less than 1 mm. The resting blood pressure 168/90 with a peak blood pressure 194/80 mmHg. Myocardial perfusion protocol. 14.6 mCi of technetium 99m sestamibi was injected at rest. The patient exercised according to regular Berhane protocol for 6 minutes. At peak exercise 44.1 mCi of technetium 99m sestamibi was injected stress images were obtained stress and rest images were reconstructed and compared in the short axis vertical long horizontal long axis. Gated images were also obtained. Perfusion SPECT analysis: Review of the stress images demonstrate normal uptake of tracer noted in all areas of the myocardium. There is significant GI attenuation artifact noted on the stress and resting images. No obvious ischemia is noted in this area. The gated ejection fraction is noted to be 70%. Conclusion: Exercise myocardial perfusion stress test with no obvious ischemia noted. Preserved ejection fraction. Good functional capacity. Labs LDL Cholesterol 106 mg/dL (0-130) 01/23/14 HDL Cholesterol 32 mg/dL (40-) L 01/23/14 Triglycerides 93 mg/dL (0-199) 01/23/14 VLDL Cholesterol 19 mg/dL (5-40) 01/23/14 Diagnostics Electrocardiogram 06/24/18 Echocardiogram 10/04/17 Stress Test Nuclear Medicine 05/08/18 Stress Test 05/08/18 Chest X-Ray 06/20/18 Venous Doppler Study 09/26/17 Pulmonary Pulmonary Function Test 10/04/17 I have re-examined the patient. There are no clinical changes since date of exam.
[2018-07-01 08:12] VITALS: BMI 36.9
[2018-07-19 12:10] LABS: Blood Gas Specimen Type VEN; VBG BASE EXCESS 0 mmol/L (-1.0-3.5); VBG Bicarbonate 25 mmol/L (22-26); VBG Oxygen Content 26 mmol/L (23-33); VBG PO2 41 mmHg (25-40); VBG SO2 76 % (50-70); VBG pCO2 40.7 mmHg (41-51)
[2018-07-19 12:10] LABS: Blood Gas Specimen Type VEN; VBG BASE EXCESS 0 mmol/L (-1.0-3.5); VBG Bicarbonate 25 mmol/L (22-26); VBG Oxygen Content 26 mmol/L (23-33); VBG PO2 37 mmHg (25-40); VBG SO2 70 % (50-70); VBG pH 7.38 (7.32-7.42)
[2018-07-19 12:10] LABS: Base Excess -2 mmol/L (-2 to +2); Bicarbonate 23.6 mmol/L (22-26); Blood Gas Specimen Type ART; PO2 64 mmHG (75-100); SO2 91 % (95-99); Total Carbon Dioxide 25 mmol/L; pCO2 40.4 mmHg (35-45); pH 7.38 (7.35-7.45)
[2018-07-19 12:10] LABS: Blood Gas Specimen Type VEN; VBG BASE EXCESS 0 mmol/L (-1.0-3.5); VBG Bicarbonate 26 mmol/L (22-26); VBG Oxygen Content 27 mmol/L (23-33); VBG PO2 38 mmHg (25-40); VBG SO2 71 % (50-70); VBG pCO2 43.5 mmHg (41-51); VBG pH 7.38 (7.32-7.42)
--- NOTE | 2018-07-19 17:30 | CL.D_ITS ---
Patient Name: ELY HERNÁNDEZ Study Date: 07/19/2018 Performing: Conrad Arias MD Ht: 67 inches 170 cm : 1950 Wt: 236.2 lbs 107 kg Age: 68 Gender: female BSA: 2.17 PROCEDURE(S) PERFORMED WT80-TAL/LHC/COR/LV CLINICAL PROFILE AND INDICATIONS Indications: Suspected CAD Heart Failure: None Stress/Imaging Date: 05/18/2018Stress Test with SPECT MPI: Negative Angina Classification Anginal Classification w/in 2 Weeks: CCS III CAD Presentations: Other: Shortness of breath / dyspnea on exertion; pulmonary hypertension CONCLUSIONS Right heart pressures - moderately elevated The patient has pulmonary hypertension which is moderate. Intracardiac shunting: None Elevated Left Ventricular End Diastolic Pressure Normal LV size, wall motion,and systolic function LVEF: by LV gram 65 % Single vessel CAD of the LAD (non angiographically significant) RECOMMENDATIONS DESCRIPTION OF PROCEDURE The patient arrived to the procedure lab. The risks and benefits of the procedure as well as a full d escription of our services here and current unavailability of surgical backup were fully explained to the patient and/or their significant other prior to the catheterization. The Timeout was completed, verifying the correct patient and procedure. The patient's procedural site was prepped and draped in the usual fashion. Local anesthetic was given subcutaneously to right radial region with Lidocaine 2% . Using a modified Seldinger technique, arterial access was obtained via the right radial artery, a 6 Fr sheath was inserted. Venous access was obtained via the right antecubital a 7Fr sheath was inserte d. A 7Fr thermal dilution catheter was inserted and right heart pressures were recorded, it was then advanced to PA position for cardiac outputs. O2 saturations were then obtained. Thermal dilution card iac outputs were then recorded. Simultaneous pressures were then recorded. Left Ventriculography was performed in CARR projection using a 5 Fr. Pigtail catheter. The Thermal dilution catheter was then removed. Left Coronary Artery selective angiography was performed in multiple view s using a 5 Fr. 4.0 Sophia catheter. Right Coronary Artery selective angiography was then performed in multiple views using a 5 Fr. 4.0 Sophia catheter.The arterial sheath was pulled and a TR Band was angel lied for hemostasis. The venous sheath was then pulled and manual compression applied until hemostasi s achieved CORONARY ANGIOGRAPHY DOMINANCE: Right Dominant LEFT HEART ASSESSMENT Left Ventricular Ejection Fraction: by LV Gram 65 % Normal LV wall motion Elevated Left Ventricular End Diastolic Pressure LVEDP: 21 mmHg RIGHT HEART ASSESSMENT Thermal CO: 6.44 Thermal CI: 2.97 Adama CO: 9.01 Adama CI: 4.15 PW: 18 PA: 43/22 29 RV: 40/9 17 RA: 14 PVR: 137 SVR: 1019 Aortic Valve Area: >3.50 Aortic Valve Index: 1.61 Aortic Valve Mean Gradient: 12.1 Mitral Valve Area: 3.03 Mitral Valve index: 1.4 Mitral Valve Mean Gradient: 5.5 Right Heart pressures - elevated Pulmonary Hypertension Moderate Intracardiac shunting: None LEFT MAIN: Angiographically normal LEFT ANTERIOR DESCENDING ARTERY: PROX LAD: Mild calcification, Eccentric: 10 - 25 % Stenosis CIRCUMFLEX ARTERY: Angiographically normal RIGHT CORONARY ARTERY: Angiographically normal VALVE FINDINGS: Normal Aortic Valve function Normal Mitral Valve function AORTIC ROOT: Angiographically normal COMPLICATIONS No Complications PROCEDURE MEDICATIONS Versed 1 mg IV Fentanyl 50 mcg IV Oxygen: 2 L/min via nasal cannula Heparin given IA 07/19/2018 11:35:40 Verapamil 2.5mg, Ntg 100mcgs, 2000 units of Heparin given IA 07/19/2018 11:35:40 SUMMARY OF HEMODYNAMIC DATA Time AIR REST ECG 10:17:51 RA (14) SV 11:46:34 RV 40/9, 17 11:46:58 PA 43/22 (29) PA 11:47:23 PW (18) PV 11:47:45 LV 126/9, 17 11:54:48 PW (21) 11:54:48 LV 126/11, 21 11:55:11 PW (20) 11:55:11 LV 129/11, 23 11:57:10 PW (21) 11:57:10 LV 130/11, 23 11:57:16 PW (21) 11:57:16 LVp 131/9, 22 11:57:36 AOp 134/63 (92) 11:57:41 PA 47/22 (32) 11:58:10 RV 44/11, 20 11:58:24 RA (14) 11:58:37 AO 131/71 (96) SA 11:58:59 Valve Area (c P-P/ms Time AIR REST Mitral 3.03 5.5 mn/353 ms 11:57:16 Aortic 3.50 12.1 mn/50 ms 11:57:36 Type SV CO (l/m) CI (l/m/ HR Time AIR REST Thermal 82.60 6.44 2.97 78 10:17:51 Adama 115.50 9.01 4.15 78 10:17:51 Label % O2 Pres/Loc Time AIR REST AO 91 PV 12:00:40 PA 70 PA 12:00:45 SVC 71 12:00:58 IVC 76 SV 12:01:06 Signed By Conrad Arias MD On 07/19/2018 17:30:07 Conrad Arias MD
== END 2018-07-19 15:20 | disposition home or self-care (01) ==
LOC: CLSP 09:47
PROVIDERS: Family Provider Family Medicine Geriatric Medicine; PCP Family Medicine Geriatric Medicine; Referring Provider Internal Medicine Cardiovascular Disease; Visit Provider Internal Medicine Cardiovascular Disease
DX: I25.10 Atherosclerotic heart disease of native coronary artery without angina pectoris (principal); I50.1 Left ventricular failure, unspecified; I11.0 Hypertensive heart disease with heart failure; I27.20 Pulmonary hypertension, unspecified; R07.89 Other chest pain; R06.00 Dyspnea, unspecified; R53.83 Other fatigue; R60.0 Localized edema; E78.5 Hyperlipidemia, unspecified; G47.33 Obstructive sleep apnea (adult) (pediatric); Z79.82 Long term (current) use of aspirin; Z79.02 Long term (current) use of antithrombotics/antiplatelets; Z79.899 Other long term (current) drug therapy
CPT/HCPCS: 82803; 93460; 99152; 99153; J7040; A4216; C1751; C1769; C1894; Q9967

== ENCOUNTER → 2018-08-14 12:11 | Outpatient (CLI) | payer MEDICARE, OTHER, SELFPAY ==
[2018-07-01 08:12] VITALS: BMI 36.9
[2018-08-14 13:36] LABS: Anion Gap 4 (5-15); BUN 19 mg/dL (7-18); BUN/Creat Ratio 24.7 RATIO (10-20); Chloride 105 mmol/L (98-107); Creatinine, Serum 0.77 mg/dL (0.55-1.02); EST Glomerular Filtration Rate 79 mL/min (>60); Est Glom Filt Rate - Afr Amer 96 mL/min (>60); Glucose 104 mg/dL (74-106); Potassium 3.7 mmol/L (3.5-5.1); Sodium Level 139 mmol/L (136-145)
== END ==
PROVIDERS: Family Provider Family Medicine Geriatric Medicine; PCP Family Medicine Geriatric Medicine; Referring Provider Internal Medicine Cardiovascular Disease; Visit Provider Internal Medicine Cardiovascular Disease
DX: I10 Essential (primary) hypertension (principal); I27.20 Pulmonary hypertension, unspecified; R60.9 Edema, unspecified
CPT/HCPCS: 36415; 80048

== ENCOUNTER → 2019-01-21 11:34 | Outpatient (CLI) | payer MEDICARE, OTHER, SELFPAY ==
[2018-08-15 13:39] VITALS: BMI 35.5
[2019-01-21 12:43] LABS: Absolute Lymphocyte Count 1.65 X10^3/uL (0.83-4.51); Absolute Neutrophil Count 3.6 X10^3/uL (2.0-7.7); Basophil# 0.02 X10^3/uL; Basophil% 0.3 % (0-1); Eosinophil# 0.08 X10^3/uL; Eosinophils% 1.3 % (0-5); Hematocrit 43.9 % (37-47); Hemoglobin 14.5 g/dL (12.0-15.0); Lymphocyte # 1.65 X10^3/ul (4.0); Lymphocyte % 27.7 % (19-41); Mean Corpuscular Hgb 32.1 pg (27.0-32.0); Mean Corpuscular Volume 97.1 fL (81-99); Mean Platelet Vol. 10.4 fl (6.2-12.0); Monocyte# 0.63 X10^3/uL; Monocyte% 10.6 % (0-10); NRBC Flagged by Analyzer 0 % (0-5); Neutrophil # 3.57 X10^3/uL (2.7-7.7); Neutrophil % 59.9 % (47-70); Platelet Count 342 K/mm3 (150-450); Red Blood Count 4.52 M/mm3 (4.2-5.4)
[2019-01-21 13:04] LABS: Vitamin D,25 Hydroxy 21.4 ng/mL (29.95-100.01)
[2019-01-21 13:05] LABS: ALB/GLOB Ratio 1.1 RATIO (0.9-2.4); AST(SGOT) 20 U/L (15-37); Alanine Aminotransfer ALT/SGPT 33 U/L (13-56); Albumin, Serum 4.1 g/dL (3.2-5.0); Alkaline Phosphatase 72 U/L (45-117); Anion Gap 8 (5-15); BUN 15 mg/dL (7-18); BUN/Creat Ratio 18.2 RATIO (10-20); Calcium,Total 8.6 mg/dL (8.5-10.1); Chloride 108 mmol/L (98-107); Creatinine, Serum 0.82 mg/dL (0.55-1.02); EST Glomerular Filtration Rate 73 mL/min (>60); Est Glom Filt Rate - Afr Amer 88 mL/min (>60); Globulin 3.8 g/dL (2.2-4.2); Glucose 93 mg/dL (74-106); Potassium 4.1 mmol/L (3.5-5.1); Protein, Total 7.9 g/dL (6.4-8.2); Sodium Level 140 mmol/L (136-145)
== END ==
PROVIDERS: Family Provider Family Medicine Geriatric Medicine; PCP Family Medicine Geriatric Medicine; Visit Provider Family Medicine Geriatric Medicine
DX: E55.9 Vitamin D deficiency, unspecified (principal); I10 Essential (primary) hypertension
CPT/HCPCS: 36415; 80053; 82306; 84443; 85025

== ENCOUNTER 2019-05-26 10:42 | Emergency (ER) | payer MEDICARE, OTHER, SELFPAY ==
[2019-02-17 13:07] VITALS: BMI 37.3
[2019-05-26 10:43] VITALS: BP 161/80; PULSE 85; RESP 17; TEMP 36.5; O2SAT 98; BMI 34.4
[2019-05-26 10:54] VITALS: BP 161/80; PULSE 85; RESP 17; TEMP 36.5; O2SAT 98
--- NOTE | 2019-05-26 11:13 | ED.DCSUM_ITS ---
History of Present Illness Chief Complaint: Lower Extremity Injury Informant: Patient Onset: Today Narrative: Mechanical fall in the yard prior to arrival. Patient holding her daughter's dog when it ran slipped twisting her leg backwards. She states she heard 2 snaps. There was no head injuries. No chest pains or abdominal pains. Came by private vehicle. No history of fractures. Reports allergy to codeine however is tolerated Vicodin or Percocet in the past. No medicines taken prior to arrival. Does not follow orthopedist. Prior similar symptoms: No Past Medical History - Allergies and Home Meds Allergies/Adverse Reactions: Allergies codeine Allergy (Mild, Verified 05/26/19 10:43) roaring sounds, hives Penicillins Allergy (Mild, Verified 05/26/19 10:43) hives Primary Care Physician: Parish Plascencia Chi, MD [Primary Care Provider] - Past Medical History: - - Hypertension, hyperlipidemia, pulmonary hypertension, HESHAM Smoking Status: Never smoker Review of Systems General: Denies: Chills, Fever, Sweats Eyes: Denies: Visual changes - bilaterally, Diplopia ENT: Denies: Rhinorrhea, Sore throat Cardiovascular: Denies: Chest pain, Palpitations Respiratory: Denies: Dyspnea, Cough, Dyspnea on exertion Gastrointestinal: Denies: Abdominal pain, Nausea, Vomiting, Diarrhea, Melena, Hematochezia Genitourinary: Denies: Dysuria, Hematuria, Frequency Musculoskeletal: Reports: Arthralgias, Extremity Pain. Denies: Back pain Skin: Denies: Rash, Wounds Neurological: Denies: Headache, Weakness, Numbness Physical Exam Vital Signs/Narrative: Vital Signs Temp Pulse Resp BP Pulse Ox 05/26/19 10:54 97.7 F L 85 17 161/80 H 98 05/26/19 10:43 97.7 F L 85 17 161/80 H 98 Inital Vital Signs reviewed: Yes General: Well nourished, Well developed, No Acute Distress Head: Normocephalic, Atraumatic Eyes: Perrl, EOMI ENT: Moist mucous membranes, No rhinorrhea Neck: Supple, Nontender Cardiovascular: Regular rate, Regular rhythm, No murmurs Respiratory: No distress, CTA bilaterally, Chest nontender Abdomen: Soft, Nontender, Nondistended, Normal bowel sounds Back: Nontender, Normal Inspection Extremities: - - Right lower extremity: Negative logroll, no knee or proximal leg tenderness. There is tenderness the medial and lateral malleolus with slight swelling no deformities noted. No foot tenderness. Skin intact. Neurovascular intact distally. Skin: Normal color, No rash Neurological: Alert, Oriented x3, Cranial nerves II-XII grossly intact, Normal Strength, Normal Sensation Psychological: Normal affect, Normal Mood Diagnostic/Tx/Re-eval - Medical Decision Making Clinical Impression(s) from Imaging Studies Ankle X-Ray 05/26/19 11:20 IMPRESSION: Nondisplaced oblique fracture of the lateral malleolus with disruption of the ankle mortise. Soft tissue swelling. Calcaneal spurs. Electronically Signed: Billy Mathew, at 11:35 EDT , Service support , Patient clinically concerns of fracture treated with ice [place] tolerated well. X-ray concerns for a bimalleolar equivalent fracture with syndesmotic disruption. I spoke with Dr. Rohit Julio updated and she will follow-up with their liner machine operator helper Dr. Evelia Julio in the office. Agrees with posterior splint with stirrups which was placed. She will be nonweightbearing with crutches and outpatient follow-up. Prescription for [place] and Colace will be written.OARRS report checked. Procedure note: Verbal consent. Splinting. Nylon sleeve was placed with Curlex dressing. 3 inch stirrup plaster, 5 inch posterior short leg splint was placed. Phillip wrap dressing, foot in 90 degree position. Neurovascular intact post splint. Patient tolerate procedure well. ED Disposition - Plan for ED Patient: Disposition: Home or Assisted Living Diagnosis: Closed right ankle fracture Instructions: FRACTURE, Ankle (General) Prescriptions: Docusate Sodium [Colace] 100 mg PO DAILY #30 cap Transmission Status: Pending to [facility] Hydrocodone Bitart/Apap 5-325 [[place] 5MG-325MG] 1 tablet PO Q6H PRN PRN 3 Days #12 tablet PRN Reason: Pain Transmission Status: Sent to [facility] Referrals: Rohit Julio MD [STAFF PHYSICIAN] - 3-5 Days Additional Instructions: Bimalleolar equivalent fracture of the right ankle. Nonweightbearing to the right lower extremity, use crutches. Call office of Dr. Rohit Julio to be seen by Dr. Evelia Julio.
[2019-05-26] MEDS: HYDROcodone Bitartrate/Apap 5/325 Tablet PO (11:15)
--- NOTE | 2019-05-26 11:20 | RAD_ITS ---
STUDY: X-RAY - RIGHT ANKLE REASON FOR EXAM: Female, 69 years old. FALL AND PAIN, DEFORMITY AND BRUISING TO LATERAL ANKLE TECHNIQUE: 3 view(s) of the ankle. COMPARISON: None. FINDINGS: Normal visualized distal tibia and fibula. Nondisplaced oblique fracture of the lateral malleolus. There is disruption of the ankle mortise with asymmetry. Plantar spurs. The visualized subtalar, talonavicular, calcaneocuboid and tarsal articulations are normal. Soft tissue swelling. RAD/Ankle min 3 Views IMPRESSION: Nondisplaced oblique fracture of the lateral malleolus with disruption of the ankle mortise. Soft tissue swelling. Calcaneal spurs. Electronically Signed: Billy Mathew, at 11:35 EDT , Service support ,
[2019-05-26 14:00] VITALS: BP 107/63; PULSE 75; RESP 18; O2SAT 95
== END 2019-05-26 14:02 | disposition home or self-care (01) ==
PROVIDERS: Emergency Provider Emergency Medicine; PCP Family Medicine Geriatric Medicine
DX: S82.64XA Nondisplaced fracture of lateral malleolus of right fibula, initial encounter for closed fracture (principal); W18.39XA Other fall on same level, initial encounter; X50.1XXA Overexertion from prolonged static or awkward postures, initial encounter; Y93.89 Activity, other specified; Y92.007 Garden or yard of unspecified non-institutional (private) residence as the place of occurrence of the external cause; Y99.8 Other external cause status; I10 Essential (primary) hypertension; E78.5 Hyperlipidemia, unspecified; Z79.82 Long term (current) use of aspirin
CPT/HCPCS: 29515; 73610; 99284

== ENCOUNTER → 2019-05-28 12:03 | Outpatient (CLI) | payer MEDICARE, OTHER, SELFPAY ==
[2019-05-26 10:43] VITALS: BMI 34.4
--- NOTE | 2019-05-28 12:29 | EKG12_ITS ---
Test Reason : PRE-OP Blood Pressure : / mmHG Vent. Rate : 070 BPM Atrial Rate : 070 BPM P-R Int : 172 ms QRS Dur : 096 ms QT Int : 426 ms P-R-T Axes : 037 003 017 degrees QTc Int : 460 ms Normal sinus rhythm Normal ECG When compared with ECG of 20-JUN-2018 10:55, Nonspecific T wave abnormality now evident in Inferior leads Confirmed by ERLIN JACOBSON ([id number]), city editor TWYLA KENNEY ([id number]) on 05/29/2019 8:04:19 AM Referred By: Alejandro Julio Confirmed By:ERLIN JACOBSON
--- NOTE | 2019-05-28 12:42 | RAD_ITS ---
STUDY: X-RAY CHEST REASON FOR EXAM: Female, 69 years old. ENCOUNTER FOR PRE PROCEDURAL RESPIRATORY EXAM -- PRE OP FOR ANKLE SURGERY TECHNIQUE: PA and lateral views of the chest. COMPARISON: Comparison is made with prior study dated June 20, 2018. FINDINGS: The lungs are clear and expanded. Scattered calcified granulomas. There is no demonstrated pleural abnormality. There is borderline cardiomegaly. Normal mediastinum and azra. Normal visualized pulmonary arteries. There is atherosclerotic tortuosity of the aortic arch and descending thoracic aorta. There are mild degenerative changes of the visualized thoracic spine. Normal visualized ribs, clavicles, and shoulders. There is no demonstrated abnormality of the visualized soft tissue structures of the upper abdomen. RAD/Chest PA and Lateral IMPRESSION: Stable examination. No acute abnormality is seen. Electronically Signed: Billy Mathew, at 15:39 EDT , Service support ,
[2019-05-28 13:49] LABS: Absolute Lymphocyte Count 1.54 X10^3/uL (0.83-4.51); Basophil# 0.02 X10^3/uL; Basophil% 0.3 % (0-1); Eosinophil# 0.04 X10^3/uL; Eosinophils% 0.5 % (0-5); Hematocrit 44.1 % (37-47); Hemoglobin 14.8 g/dL (12.0-15.0); Hemoglobin A1c 6.4 % (4.2-6.3); Lymphocyte # 1.54 X10^3/ul (4.0); Lymphocyte % 20.9 % (19-41); Mean Corp Hgb Conc 33.6 g/dL (32-36); Mean Corpuscular Hgb 32.3 pg (27.0-32.0); Mean Corpuscular Volume 96.3 fL (81-99); Monocyte# 0.73 X10^3/uL; Monocyte% 9.9 % (0-10); NRBC Flagged by Analyzer 0 % (0-5); Neutrophil # 5.03 X10^3/uL (2.7-7.7); Neutrophil % 68.1 % (47-70); Platelet Count 327 K/mm3 (150-450); RBC Distribution Width CV 12.4 % (11.6-14.6); RBC Distribution Width SD 43.8 fl (35.1-43.9); Red Blood Count 4.58 M/mm3 (4.2-5.4); White Blood Count 7.4 K/mm3 (4.4-11.0)
[2019-05-28 14:03] LABS: Anion Gap 8 (5-15); BUN 16 mg/dL (7-18); BUN/Creat Ratio 23.6 RATIO (10-20); Chloride 107 mmol/L (98-107); Creatinine, Serum 0.68 mg/dL (0.55-1.02); EST Glomerular Filtration Rate 91 mL/min (>60); Est Glom Filt Rate - Afr Amer 110 mL/min (>60); Glucose 97 mg/dL (74-106); Potassium 3.6 mmol/L (3.5-5.1); Sodium Level 143 mmol/L (136-145)
== END ==
PROVIDERS: Physician Assistant; PCP Family Medicine Geriatric Medicine; Referring Provider Podiatrist Foot & Ankle Surgery; Visit Provider Podiatrist Foot & Ankle Surgery
DX: Z01.818 Encounter for other preprocedural examination (principal); Z01.810 Encounter for preprocedural cardiovascular examination; Z01.811 Encounter for preprocedural respiratory examination; E11.9 Type 2 diabetes mellitus without complications
CPT/HCPCS: 36415; 71046; 80048; 83036; 85025; 93005

== ENCOUNTER 2019-06-05 07:35 | Day surgery (SDC) | payer MEDICARE, OTHER, SELFPAY ==
[2019-06-05] VITALS (7 sets, daily range): BP systolic 95–135; BP diastolic 57–79; PULSE 81–92; RESP 16–18; TEMP 36.3–36.6; O2SAT 92–98
--- NOTE | 2019-06-05 09:00 | RAD_ITS ---
STUDY: X-RAY - RIGHT ANKLE REASON FOR EXAM: Female, 69 years old. ORIF RIGHT ANKLE TECHNIQUE: 3 view(s) of the ankle. COMPARISON: Comparison is made with prior examination dated May 26, 2019. FINDINGS: Intraoperative imaging provided for open reduction and internal fixation of the distal fibular fracture utilizing screws and sideplate fixation device. The ankle mortise is symmetrical. Postoperative soft tissue changes. RAD/Ankle min 3 Views IMPRESSION: Status post open reduction and internal fixation of the distal fibular fracture. There is good alignment. Postoperative soft tissue changes. Electronically Signed: Billy Mathew, at 12:34 EDT , Service support ,
--- NOTE | 2019-06-05 11:27 | DCINST_ITS ---
Discharge Diet: No Restrictions Discharge Activity: May Not Drive, May Not Shower, Use Walker, Use Crutches Weight Bearing Status: No weight bearing Keep extremity elevated above heart level: Right Leg Additional Activity Instructions:: 1. Keep the dressing clean, dry, intact to the right leg. Do not get dressing wet. If get dressing wet, call office for further instructions. At this time, I recommend sponge bathing to avoid getting the dressing wet. 2. Ice around right knee 20 minutes on, 20 minutes off, every hour while you are awake until follow-up appointment. 3. Elevate right foot above level of heart as much as possible until follow-up appointment. 4. No walking or standing on right foot. Keep weight off of right foot at all times. Use crutches/walker/wheelchair for assistance. 5. Begin taking doxycycline (antibiotic) tomorrow, June 05 as instructed. This medication is twice a day. 6. Begin taking aspirin 325 tomorrowJune 05 as instructed. This medication is twice a day. 7. Begin taking Percocet (pain medication) today, June 04, when you are home. Take 1 Percocet every 6 hours. May increase to 2 percocets if needed. After taking the first Percocet, wait 3 hours and take 600 mg of ibuprofen (3 of the small 200mg tablets). After taking ibuprofen, wait another 3 hours to take a Percocet. So, you are taking pain medication every 3 hours, alternating between the ibuprofen and the Percocet. Do not take more than 3000 mg of ibuprofen in a day. Do not add Tylenol at this time because Tylenol is already in the Percocet medication. #8. Please call office if have any questions or concerns. Call your doctor if your incision/area has: Sudden Increased Bleeding, Increased Pain/ Swelling Call your doctor if you observe: Fever of 101 or Higher, Shortness of breath, Chest pain, Increased palpitations (irregular heartbeat), Calf discomfort, Uncontrolled pain Cleanse incision/area with: Keep Dressing Clean & Dry Allergies/Adverse Reactions: Allergies codeine Allergy (Mild, Verified 06/04/19 10:30) roaring sounds, hives Penicillins Allergy (Mild, Verified 06/04/19 10:30) hives Medications to take at Discharge citalopram 20 mg tablet 20 mg PO QDAY 10/09/17 aspirin 81 mg tablet,delayed release 81 mg PO DAILY #30 tab 06/24/18 ergocalciferol (vitamin D2) 1,250 mcg (50,000 unit) capsule 50,000 unit PO QWEEK 06/24/18 olmesartan 40 mg-hydrochlorothiazide 12.5 mg tablet 1 tab PO DAILY 06/24/18 oxybutynin chloride 5 mg tablet,extended release 24 hr 5 mg PO QDAY tab 06/24/18 pravastatin 40 mg tablet 40 mg PO DAILY 06/24/18 potassium chloride 10 mEq tablet,extended release 20 meq PO DAILY tab 08/15/18 Docusate Sodium [Colace] 100 mg PO DAILY #30 cap 05/26/19 amlodipine 10 mg tablet 10 mg PO DAILY #90 ea 05/26/19 furosemide 40 mg tablet 80 mg PO DAILY #180 ea 05/26/19 Primary Care Physician: Parish Plascencia Chi, MD [Primary Care Provider] - Test Results: Test results from this visit will be discussed in further detail at your follow- up appointment, if applicable. Please Follow Up With: Alejandro Julio DPM When: On June 12 as previously scheduled
--- NOTE | 2019-06-05 11:33 | PCM.OPRPT ---
Problem List (1) Bimalleolar fracture of right ankle Status: Acute Qualifiers: Encounter type: subsequent encounter Fracture type: closed Fracture healing: with routine healing Qualified Code(s): S82.841D - Displaced bimalleolar fracture of right lower leg, subsequent encounter for closed fracture with routine healing (2) Syndesmotic disruption of right ankle Status: Acute Qualifiers: Encounter type: subsequent encounter Qualified Code(s): S93.431D - Sprain of tibiofibular ligament of right ankle, subsequent encounter (3) Dislocation of right ankle joint Status: Acute Qualifiers: Encounter type: subsequent encounter Qualified Code(s): S93.04XD - Dislocation of right ankle joint, subsequent encounter Report of Operation Date of Procedure: 06/05/19 Pre-Operative Diagnosis: 1. Right ankle bimalleolar fracture. 2. Right ankle syndesmotic disruption. 3. Right ankle deltoid ligament injury. 4. Right ankle joint dislocation Post-Operative Diagnosis: Same as preoperative Surgery/Procedure Performed:: 1. Right ankle lateral malleolar open reduction with internal fixation. 2. Right ankle syndesmosis repair. 3. Right ankle joint reduction of dislocation Description of Surgical Findings:: Consistent with diagnosis. Reduction of deformity achieved and held with internal fixation. record maker: Atiya Bergman Type of Anesthesia:: General/Regional - With a popliteal and saphenous block to the right lower extremity Anesthesiologist: Yg Catherine Special Medications: 1 g of vancomycin given preoperatively Specimen's removed: None Drains: None Estimated Blood Loss (mL): 15 Description of Procedure: Pathology: None Anesthesia: General with a popliteal and saphenous block to the right lower extremity Hemostasis: Pneumatic thigh tourniquet placed to the level of the right thigh at 300 mmHg for 120 minutes Estimated blood loss: 50 mL Materials: #1. Arthrex tight rope. 2. Arthrex 5 hole locking distal fibular plate right side. 3. Arthrex 3.5 x 12 mm cortical screw. 4. Arthrex 3.5 x 14 mm cortical screw x2. 5. Arthrex 3.5 x 20 mm cortical screw. 6. Arthrex 2.7 x 10 mm locking screw. 7. Arthrex 2.7 x 12 mm locking screw. 8. Arthrex 2.7 x 14 mm locking screw. 9. Arthrex 2.7 x 16 mm locking screw. 10. Arthrex 3.0 x 16 mm cancellus screw. 11. Arthrex 3.0 x 14 mm cancellus screw. 11. Size 0 Vicryl. 12. Size 2-0 Vicryl. 13. Size 3-0 Vicryl. 14. Size 3-0 nylon. Injectables: None Complications: None Condition: Stable Indications: Patient is a 69-year-old female who suffered a slip and fall while at home on May 26, 2019, injuring her right ankle. Patient subsequently reported to the emergency department for further evaluation. Patient was diagnosed with a right ankle joint fracture and dislocation, which was reduced by the emergency department staff. She was then splinted and instructed to remain nonweightbearing. Patient followed up with me on May 27 for initial evaluation. I discussed with the patient her radiographic findings. I discussed with the patient and her desire to return to activities of daily living with minimal hindrance. I then recommended surgical intervention due to the fractures and dislocation that were present along with the patient's activity level. Patient agreed to surgical intervention. Surgery was planned for a later time due to the excessive swelling that was present in her right ankle. Patient followed up with me in the office on June 01 for an edema check. Significant reduction in edema was had at that time, and surgical intervention was decided to be performed today, June 04. Operative report: Before the patient was brought to the operating room, the risks, benefits, possible outcomes, possible complications of the procedure were discussed with the patient. All the patient's questions were answered to her satisfaction and all of her concerns were addressed. Risks include but not limited to infection, delayed or nonhealing wounds, delayed or nonhealing bone, loss of function, loss of limb, loss of life, DVT. No guarantees were made as to the outcome of the procedure. Patient understood all aspects of the procedure, and consent was then signed by the patient. Before the patient was brought to the operating room, the anesthesiologist administered a popliteal block to the right lower extremity. Patient was then brought to the operating room and placed on the operating table in supine position. At that time, anesthesia took control the airway. After timeout, under general anesthesia, a well-padded pneumatic thigh tourniquet was placed to the level of the right thigh. Next, 10 mL of 0.5% Marcaine plain was distributed in a proximal saphenous nerve block fashion in the area of the tibial tuberosity. Next, the right foot, ankle, leg were then scrubbed, prepped, draped in the usual sterile manner. At this time, radiographic evaluation was used to determine the distal tip of the lateral malleolus, level of the fibular fracture, level of the ankle joint line, level of the medial malleolus, and level of where the syndesmosis would be repaired. These were all then marked on the patient. Next, live radiographic evaluation was used to assess the deltoid ligament. There was evidence of deltoid insufficiency at this time. Next, the right foot, ankle, leg were then elevated and exsanguinated via Esmarch and inflation of the pneumatic thigh tourniquet was performed to 300 mmHg. Attention was then directed to the lateral aspect of the right ankle in the area of the lateral malleolus. At this time, #15 blade was used to perform a linear longitudinal incision starting on the lateral aspect of the distal one third of the fibular shaft extending distally to the distal tip of the lateral malleolus. This incision was approximately 10 cm in length. This incision was deepened utilizing sharp and blunt dissection. Care was taken to retract all vital neural and vascular structures. All bleeders were cauterized and ligated as necessary. Next, a periosteal and capsular incision was made in line with the original skin incision. The periosteal capsular structures were then reflected anteriorly and posteriorly, thus exposing the fibular fracture at the operative site. Along with the oblique spiral fracture that was present of the fibula, a Chaput avulsion fracture was noted at the anterior aspect of the fibula at the level of the syndesmosis. Next, these fractures were reduced and temporarily fixated. Radiographic evaluation was then performed. The fibula was noted to be reduced from preoperative assessment. The fibula was noted to be back out to length. This was then held via temporary fixation. At this time, the lag screw was inserted in standard AO fixation as perpendicular to the oblique fracture as possible. Of note during insertion of the screw was the adequate compression of the fractured fibula. Furthermore, no shifting any of the fragments occurred during insertion of the screw. Once the screw was fully inserted, temporary fixation was then removed. The interfragmentary screw was noted to hold the fibula in the corrected reduced position. At this time, the Arthrex fibular plate was placed over the lateral aspect of the fibula. Radiographic evaluation was then performed to obtain optimal positioning of the plate. Once this positioning was had, this was fixated via temporary fixation. Next, the plate was then held via a mixture of nonlocking, cancellous and locking screws to the lateral aspect of the fibula. Of note during insertion of the screws was the adequate compression of the plate to the bone. Furthermore, no shifting of any of the fragments or the plate occurred during insertion of the screws. Once adequate fixation was had proximal and distal to the fracture, temporary fixation was then removed. Radiographic evaluation was then performed. The plate was noted to be well adhered to the fibula at this time I was noted to be in a good position on the fibula. All screws noted to the either be too long and too short. Furthermore, all the fixation at this time was noted to hold the oblique fibular fracture in the correct the reduced position. At this time, the hook test was performed via live radiographic evaluation, and demonstrated an instability of the distal syndesmosis. The syndesmosis was reduced via live radiographic evaluation via a bone clamp. Care was taken make sure that the foot was held in a dorsiflexed position as the syndesmosis was reduced. Once adequate reduction of the syndesmosis was had, it was determined to use the Arthrex tight rope. The K wire for the Arthrex tight rope was placed through the plate of the fibula into the tibia. Radiograph evaluation was then performed. The K wire was noted to reapproximate the syndesmosis. The Arthrex tight rope was then placed from lateral to medial through the fibular plate at the level to reapproximate the syndesmosis. This was approximately 1.5 cm proximal to the ankle joint line, and correlated with an open hole in the fibula plate. Care was taken to make sure that this tight rope was angulated 30 degrees posterior lateral to anterior medial to reapproximate the syndesmosis. Once the Arthrex tight rope was adequately placed and tightened down, the bone clamp was then removed. Radiograph evaluation was then performed. The ankle joint mortise was noted to be back in anatomical alignment. The hook test was then performed, and the syndesmosis was noted to be stable at this time. It was decided to that another tight rope would not be necessary. Live radiographic evaluation was then performed once again to test the deltoid. There was no further deltoid insufficiency noted, and the talus noted to be back in anatomical position in the ankle joint mortise. It was then termed at this time that the deltoid will be treated conservatively. Attention was then directed back to the lateral aspect of the fibula in the area of the Chaput fracture. External rotation of the fibula was performed, and this Chaput fracture was noted to be in the area of the anterior inferior tibiofibular ligament. It was then termed at this time the fixation of this fracture would be performed. This fracture was held via temporary fixation and an Arthrex 3.0 cancellus screw was placed as perpendicular to the fracture site as possible and inserted in standard AO fixation. Of note her insertion of the screw was adequate compression of the fracture fragment. Furthermore, no shifting of the fragment occurred during insertion of the screw. Once the screw was fully inserted, all temporary fixation was then removed. The screw was noted to hold this fracture in the corrected reduced position. Radiograph evaluation was then performed once again. The fibula was noted to be out the length and reduced from preoperative assessment. The internal fixation of the fibula was noted to hold the fracture fragments in the corrected reduced position. The tibiofibular overlap was noted to be reduced from preoperative assessment. The ankle joint mortise was noted to be intact at this time with the talus underneath the tibia. No further deltoid insufficiency was noted under live radiographic evaluation. The surgical site on the lateral aspect of the ankle was was irrigated with copious muscle normal sterile saline. The periosteal and capsular structures were reapproximated coapted utilizing size 0 Vicryl and size 2-0 Vicryl. The pneumatic thigh tourniquet was then released and a prompt hyperemic response noted to the entirety of the right lower extremity. All bleeders were cauterized and ligated as necessary. The subcutaneous tissue was reapproximated coapted utilizing size 2-0 Vicryl and 3-0 Vicryl. The skin was reapproximated coapted utilizing 3-0 nylon in a simple interrupted horizontal mattress fashion. The skin of the site of where the bone clamp was on the medial aspect of the right ankle was reapproximated coapted utilizing 3-0 nylon in a simple interrupted fashion. The surgical sites were then dressed with Betadine soaked gauze, and a dry sterile dressing consisting of 4 x 4 gauze, ABD pads, wrapped with Kerlix. The right foot and ankle were then wrapped with an Phillip bandage. At this time, cast padding was wrapped from the metatarsal heads extending proximally to the level just distal to the tibial tuberosity. A posterior splint was fashioned to the right lower extremity and was adhered to the right lower extremity utilizing Phillip bandages. Care was taken make sure that the right foot and ankle were held in a neutral position as the posterior splint dried. Neurovascular status was assessed at the end of application and deemed intact to the right lower extremity. The patient tolerated the anesthesia and the procedure well and was transported to the PACU with vital signs stable and neurovascular status intact to the right lower extremity. After period of postoperative monitoring, patient will be discharged home with written and oral instructions for wound care and follow-up. The assistant branch operations manager, the nurse practitioner, was utilized throughout the entire procedure. She helped with patient positioning, holding of limb, holding of retractors. She helped with exposure throughout. She helped with bandage application and cast application. Without the assistant branch operations manager, surgical time would have been increased and surgical outcome could have been less optimal.` - Complications None - Admit VTE Documentation VTE Present on Admission: No VTE Mechan Device Prophylaxis: SCD's VTE Pharm Prophylaxis ordered?: Yes
--- NOTE | 2019-06-05 12:25 | RAD_ITS ---
STUDY: X-RAY - RIGHT ANKLE REASON FOR EXAM: Female, 69 years old. POST OP; -- ORIF RIGHT ANKLE TECHNIQUE: 3 view(s) of the ankle. COMPARISON: Comparison is made with prior intraoperative images provided from earlier today. FINDINGS: The patient is status post open reduction and internal fixation of the distal fibula. The ankle mortise is intact. Normal tibiotalar articulation and ankle mortise. Calcaneal spurs. The visualized subtalar, talonavicular, calcaneocuboid and tarsal articulations are normal. Postoperative soft tissue changes. RAD/Ankle min 3 Views IMPRESSION: Status post open reduction and fixation of the distal fibular fracture. There is good alignment. Postoperative soft tissue changes. Electronically Signed: Billy Mathew, at 12:47 EDT , Service support ,
[2019-06-05] MEDS: Lactated Ringers 1,000 ML 100 ML IV (12:38)
== END 2019-06-05 14:44 | disposition home or self-care (01) ==
LOC: SDC 09:20 → AC 09:20
PROVIDERS: PCP Family Medicine Geriatric Medicine; Referring Provider Podiatrist Foot & Ankle Surgery; Visit Provider Podiatrist Foot & Ankle Surgery
PROC: (CPT 27792; principal; 2019-06-05 08:45)
DX: S82.841A Displaced bimalleolar fracture of right lower leg, initial encounter for closed fracture (principal); S93.431A Sprain of tibiofibular ligament of right ankle, initial encounter; S93.421A Sprain of deltoid ligament of right ankle, initial encounter; W01.0XXA Fall on same level from slipping, tripping and stumbling without subsequent striking against object, initial encounter; Y93.9 Activity, unspecified; Y92.009 Unspecified place in unspecified non-institutional (private) residence as the place of occurrence of the external cause; I10 Essential (primary) hypertension; I27.20 Pulmonary hypertension, unspecified; E78.00 Pure hypercholesterolemia, unspecified; M79.7 Fibromyalgia; M19.90 Unspecified osteoarthritis, unspecified site; G47.30 Sleep apnea, unspecified; Z79.82 Long term (current) use of aspirin
CPT/HCPCS: 27792; 27829; 64445; 76942; 73610; 76000; C1713; J7040; J7120; J2405; J3490

== ENCOUNTER → 2019-06-23 09:38 | Outpatient (CLI) | payer MEDICARE, OTHER, SELFPAY ==
[2019-05-26 10:43] VITALS: BMI 34.4
--- NOTE | 2019-06-23 09:46 | VDLE_ITS ---
Reason For Study: pain RIGHT GSV is normal. CFV is compressible, spontaneous, phasic, competent and demonstrates normal augmentation. FV is compressible, spontaneous, phasic, competent and demonstrates normal augmentation. POP V is compressible, spontaneous, phasic, competent and demonstrates normal augmentation. T/P Trunk is compressible. PTV is compressible. Soleus V and Peroneal V are dilated and noncompressible. Procedure The exam was abbreviated due to the COVID 19 protocol. Exam performed in department. The exam was diagnostic. A preliminary report was called and/or faxed to Dr. Julio and Dr. Plascencia. Interpretation Summary Acute deep vein thrombosis is noted in the right soleus vein. Acute deep vein thrombosis is noted in the right peroneal vein. The remainder of the right lower extremity deep venous system is patent and compressible. Valvular competence appears intact within the proximal deep venous system on the right . The right great saphenous vein appears patent and compressible segmentally. Ordering Physician: Alejandro Julio Performed By: Kings Burrosw RVT
== END ==
PROVIDERS: PCP Family Medicine Geriatric Medicine; Referring Provider Family Medicine; Visit Provider Podiatrist Foot & Ankle Surgery
DX: I82.451 Acute embolism and thrombosis of right peroneal vein (principal); I82.461 Acute embolism and thrombosis of right calf muscular vein
CPT/HCPCS: 93971

== ENCOUNTER → 2019-07-25 11:21 | Outpatient (CLI) | payer MEDICARE, OTHER, SELFPAY ==
[2019-07-25 12:30] LABS: Absolute Lymphocyte Count 1.75 X10^3/uL (0.83-4.51); Absolute Neutrophil Count 3.5 X10^3/uL (2.0-7.7); Basophil# 0.02 X10^3/uL; Basophil% 0.3 % (0-1); Eosinophil# 0.12 X10^3/uL; Hematocrit 44.6 % (37-47); Lymphocyte # 1.75 X10^3/ul (4.0); Lymphocyte % 29.3 % (19-41); Mean Corp Hgb Conc 33.6 g/dL (32-36); Mean Corpuscular Hgb 31.4 pg (27.0-32.0); Mean Corpuscular Volume 93.5 fL (81-99); Mean Platelet Vol. 10.6 fl (6.2-12.0); Monocyte# 0.54 X10^3/uL; NRBC Flagged by Analyzer 0 % (0-5); Neutrophil # 3.52 X10^3/uL (2.7-7.7); Neutrophil % 59.1 % (47-70); Platelet Count 364 K/mm3 (150-450); RBC Distribution Width SD 41.7 fl (35.1-43.9); Red Blood Count 4.77 M/mm3 (4.2-5.4)
[2019-07-25 12:51] LABS: AST(SGOT) 17 U/L (15-37); Alanine Aminotransfer ALT/SGPT 28 U/L (13-56); Albumin, Serum 3.6 g/dL (3.2-5.0); Alkaline Phosphatase 68 U/L (45-117); Anion Gap 9 (5-15); BUN 15 mg/dL (7-18); BUN/Creat Ratio 20.3 RATIO (10-20); Calcium,Total 8.6 mg/dL (8.5-10.1); Chloride 108 mmol/L (98-107); Creatinine, Serum 0.74 mg/dL (0.55-1.02); EST Glomerular Filtration Rate 83 mL/min (>60); Est Glom Filt Rate - Afr Amer 100 mL/min (>60); Globulin 3.5 g/dL (2.2-4.2); Glucose 115 mg/dL (74-106); Potassium 3.6 mmol/L (3.5-5.1); Protein, Total 7.1 g/dL (6.4-8.2); Sodium Level 141 mmol/L (136-145); Thyroid Stim Hormone (TSH) 1.89 uIU/mL (0.358-3.74)
[2019-07-25 12:56] LABS: Vitamin D,25 Hydroxy 22.1 ng/mL
== END ==
PROVIDERS: PCP Family Medicine Geriatric Medicine; Visit Provider Family Medicine Geriatric Medicine
DX: E55.9 Vitamin D deficiency, unspecified (principal); I10 Essential (primary) hypertension
CPT/HCPCS: 36415; 80053; 82306; 84443; 85025

== ENCOUNTER → 2019-07-30 12:13 | Outpatient (CLI) | payer MEDICARE, OTHER, SELFPAY | PROVIDERS: PCP Family Medicine Geriatric Medicine; Referring Provider Podiatrist Foot & Ankle Surgery; Visit Provider Podiatrist Foot & Ankle Surgery | DX: S82.841D Displaced bimalleolar fracture of right lower leg, subsequent encounter for closed fracture with routine healing (principal) | CPT/HCPCS: 87070; 87205 ==

== ENCOUNTER → 2019-09-23 17:09 | Outpatient (CLI) | payer MEDICARE, OTHER, SELFPAY ==
[2019-09-23 17:38] LABS: Absolute Lymphocyte Count 1.59 X10^3/uL (0.83-4.51); Absolute Neutrophil Count 5.3 X10^3/uL (2.0-7.7); Basophil# 0.03 X10^3/uL; Basophil% 0.4 % (0-1); Eosinophil# 0.13 X10^3/uL; Eosinophils% 1.6 % (0-5); Hematocrit 45.7 % (37-47); Hemoglobin 15.1 g/dL (12.0-15.0); Lymphocyte # 1.59 X10^3/ul (4.0); Lymphocyte % 19.9 % (19-41); Mean Corpuscular Hgb 31.8 pg (27.0-32.0); Mean Corpuscular Volume 96.2 fL (81-99); Mean Platelet Vol. 10.3 fl (6.2-12.0); Monocyte# 0.88 X10^3/uL; NRBC Flagged by Analyzer 0 % (0-5); Neutrophil # 5.34 X10^3/uL (2.7-7.7); Neutrophil % 66.8 % (47-70); Platelet Count 375 K/mm3 (150-450); RBC Distribution Width CV 12.2 % (11.6-14.6); RBC Distribution Width SD 43.2 fl (35.1-43.9); Red Blood Count 4.75 M/mm3 (4.2-5.4)
[2019-09-23 17:59] LABS: Anion Gap 5 (5-15); BUN 17 mg/dL (7-18); BUN/Creat Ratio 17.9 RATIO (10-20); Calcium,Total 8.8 mg/dL (8.5-10.1); Chloride 104 mmol/L (98-107); Creatinine, Serum 0.95 mg/dL (0.55-1.02); EST Glomerular Filtration Rate 62 mL/min (>60); Est Glom Filt Rate - Afr Amer 75 mL/min (>60); Glucose 97 mg/dL (74-106); Potassium 3.8 mmol/L (3.5-5.1); Sodium Level 140 mmol/L (136-145)
== END ==
PROVIDERS: PCP Family Medicine Geriatric Medicine; Visit Provider Family Medicine Geriatric Medicine
DX: R60.9 Edema, unspecified (principal)
CPT/HCPCS: 36415; 80048; 85025

== ENCOUNTER → 2019-09-24 10:52 | Outpatient (CLI) | payer MEDICARE, OTHER, SELFPAY ==
--- NOTE | 2019-09-24 10:59 | VDLE_ITS ---
Reason For Study: Edema RIGHT GSV is normal. CFV is compressible, spontaneous, phasic, competent and demonstrates normal augmentation. FV is compressible, spontaneous, phasic, competent and demonstrates normal augmentation. POP V is compressible, spontaneous, phasic, competent and demonstrates normal augmentation. T/P Trunk is compressible. PTV is compressible. Peroneal vein is partially compressible as compared to 06/23/2019. Procedure Exam performed in department. Compared to 06/23/2019. A preliminary report was called and/or faxed to [facility]. Interpretation Summary Acute deep vein thrombosis is noted in the right peroneal vein. The remainder of the right lower extremity deep venous system is patent and compressible. Valvular competence appears intact within the proximal deep venous system on the right . The right great saphenous vein appears patent and compressible segmentally. There has been improvement and partial resolution of acute deep vein thrombosis since a prior study on 06/23/2019. Ordering Physician: Parish Plascencia Referring Physician: Parish Plascencia Chi Performed By: Tawnya Chino RVT and Student
--- NOTE | 2019-09-24 12:14 | RAD_ITS ---
STUDY: X-RAY - RIGHT KNEE REASON FOR EXAM: Female, 69 years old. RIGHT KNEE PAIN. TECHNIQUE: 4 view(s) of the knee. COMPARISON: None. FINDINGS: Normal visualized distal femur. Normal visualized proximal tibia and fibula. Normal proximal tibiofibular articulation. There is moderate degenerative arthrosis of the medial femorotibial compartment with moderate joint space narrowing. There is mild degenerative arthrosis of the lateral femorotibial compartment. There is moderate degenerative arthrosis of the patellofemoral articulation. The soft tissue structures are unremarkable. RAD/Knee 4 or More Views IMPRESSION: Degenerative arthrosis. Electronically Signed: Kin Tobin MD at 12:53 EDT , Service support ,
== END ==
PROVIDERS: PCP Family Medicine Geriatric Medicine; Referring Provider Family Medicine Geriatric Medicine; Visit Provider Family Medicine Geriatric Medicine
DX: R60.0 Localized edema (principal); M17.11 Unilateral primary osteoarthritis, right knee
CPT/HCPCS: 73564; 93971

== ENCOUNTER → 2019-12-15 15:27 | Outpatient (CLI) | payer MEDICARE, OTHER, SELFPAY ==
[2019-12-15 16:07] LABS: Absolute Lymphocyte Count 0.95 X10^3/uL (0.83-4.51); Absolute Neutrophil Count 3.8 X10^3/uL (2.0-7.7); Basophil# 0.02 X10^3/uL; Basophil% 0.4 % (0-1); Eosinophil# 0.03 X10^3/uL; Eosinophils% 0.5 % (0-5); Hematocrit 41.1 % (37-47); Hemoglobin 13.6 g/dL (12.0-15.0); Lymphocyte # 0.95 X10^3/ul (4.0); Lymphocyte % 17.4 % (19-41); Mean Corp Hgb Conc 33.1 g/dL (32-36); Mean Corpuscular Hgb 31.4 pg (27.0-32.0); Mean Corpuscular Volume 94.9 fL (81-99); Mean Platelet Vol. 10.5 fl (6.2-12.0); Monocyte# 0.66 X10^3/uL; Monocyte% 12.1 % (0-10); NRBC Flagged by Analyzer 0 % (0-5); Neutrophil # 3.78 X10^3/uL (2.7-7.7); Neutrophil % 69.2 % (47-70); Platelet Count 233 K/mm3 (150-450); RBC Distribution Width CV 12.4 % (11.6-14.6); RBC Distribution Width SD 43.4 fl (35.1-43.9); Red Blood Count 4.33 M/mm3 (4.2-5.4); White Blood Count 5.5 K/mm3 (4.4-11.0)
[2019-12-15 16:23] LABS: Anion Gap 9 (5-15); BUN 11 mg/dL (7-18); Chloride 104 mmol/L (98-107); Creatinine, Serum 0.65 mg/dL (0.55-1.02); EST Glomerular Filtration Rate 96 mL/min (>60); Est Glom Filt Rate - Afr Amer 117 mL/min (>60); Glucose 95 mg/dL (74-106); Potassium 3.4 mmol/L (3.5-5.1); Sodium Level 137 mmol/L (136-145)
--- NOTE | 2019-12-15 16:50 | RAD_ITS ---
STUDY: X-RAY CHEST REASON FOR EXAM: Female, 69 years old. MALAISE TECHNIQUE: Frontal and lateral views of the chest. COMPARISON: 05/28/2019. FINDINGS: The lungs are clear and expanded. Small area of discoid atelectasis in the lower right lung. No infiltrates. No effusions. There is no demonstrated pleural abnormality. Normal size heart. Normal mediastinum and azra. Normal visualized pulmonary arteries. There is atherosclerotic tortuosity of the aortic arch and descending thoracic aorta. Normal visualized thoracic spine. Normal visualized ribs, clavicles, and shoulders. There is no demonstrated abnormality of the visualized soft tissue structures of the upper abdomen. RAD/Chest PA and Lateral IMPRESSION: No definite acute or significant abnormality seen. Electronically Signed: Adonis Oliva MD at 17:59 EDT , Service support ,
== END ==
LOC: POLAB3 15:27 → RAD 16:48
PROVIDERS: PCP Family Medicine Geriatric Medicine; Referring Provider Family Medicine Geriatric Medicine; Visit Provider Family Medicine Geriatric Medicine
DX: R53.81 Other malaise (principal); R53.83 Other fatigue
CPT/HCPCS: 36415; 71046; 80048; 85025; 87086

== ENCOUNTER → 2019-12-16 10:18 | Outpatient (CLI) | payer MEDICARE, OTHER, SELFPAY | PROVIDERS: PCP Family Medicine Geriatric Medicine; Referring Provider Family Medicine Geriatric Medicine; Visit Provider Family Medicine Geriatric Medicine | DX: U07.1 COVID-19 (principal) | CPT/HCPCS: 87635; C9803; U0003 ==

== ENCOUNTER 2019-12-16 21:17 | Inpatient (IN) | payer MEDICARE, OTHER, SELFPAY ==
[2019-12-16] VITALS (7 sets, daily range): BP systolic 147–187; BP diastolic 75–90; PULSE 87–99; RESP 14–34; TEMP 37.2–39.8; O2SAT 66–96; BMI 36.7
--- NOTE | 2019-12-16 21:18 | ED.RN ---
PULLED OLD [place] FOR
--- NOTE | 2019-12-16 21:22 | EKG12_ITS ---
Test Reason : SOB Blood Pressure : / mmHG Vent. Rate : 093 BPM Atrial Rate : 093 BPM P-R Int : 152 ms QRS Dur : 092 ms QT Int : 374 ms P-R-T Axes : 052 049 027 degrees QTc Int : 465 ms Normal sinus rhythm Nonspecific ST and T wave abnormality Abnormal ECG Confirmed by KARINE GORMAN, BETHANY ([id number]), scientific editor GRANT CARTER ([id number]) on 12/22/2019 8:19:20 A M Referred By: HILTON Confirmed By:ILAN MILTON MD
[2019-12-16] MEDS: Ipratropium/Albuterol Sulfate 3 ML AMPUL.NEB INHALATION (21:27)
--- NOTE | 2019-12-16 21:42 | RAD_ITS ---
STUDY: X-RAY CHEST REASON FOR EXAM: Female, 69 years old. Dyspnea, shortness of breath. TECHNIQUE: Single AP portable view of the chest. COMPARISON: December 15, 2019 FINDINGS: There are monitoring devices. There are moderate bilateral groundglass and airspace increased opacities of the lungs. There is no demonstrated pleural abnormality. Normal size heart. Normal mediastinum and azra. Normal visualized pulmonary arteries. Normal visualized aortic arch and descending thoracic aorta. There are diffuse degenerative changes of the visualized thoracic spine. Normal visualized ribs, clavicles, and shoulders. There is no demonstrated abnormality of the visualized soft tissue structures of the upper abdomen. RAD/Chest 1 View (Portable) IMPRESSION: Bilateral pneumonia. Electronically Signed: Colin Arguelles MD at 22:03 EDT , Service support ,
[2019-12-16 21:44] LABS: Absolute Lymphocyte Count 0.74 X10^3/uL (0.83-4.51); Absolute Neutrophil Count 3.1 X10^3/uL (2.0-7.7); Basophil# 0.01 X10^3/uL; Basophil% 0.2 % (0-1); Hematocrit 42.3 % (37-47); Lymphocyte # 0.74 X10^3/ul (4.0); Lymphocyte % 17.3 % (19-41); Mean Corp Hgb Conc 33.1 g/dL (32-36); Mean Corpuscular Hgb 31.5 pg (27.0-32.0); Mean Corpuscular Volume 95.1 fL (81-99); Mean Platelet Vol. 10.1 fl (6.2-12.0); Monocyte# 0.43 X10^3/uL; Monocyte% 10.1 % (0-10); NRBC Flagged by Analyzer 0 % (0-5); Neutrophil # 3.07 X10^3/uL (2.7-7.7); Neutrophil % 71.9 % (47-70); Platelet Count 199 K/mm3 (150-450); RBC Distribution Width CV 12.5 % (11.6-14.6); RBC Distribution Width SD 43.7 fl (35.1-43.9); Red Blood Count 4.45 M/mm3 (4.2-5.4); White Blood Count 4.3 K/mm3 (4.4-11.0)
[2019-12-16 21:45] LABS: Base Excess -2 mmol/L (-2 to +2); Bicarbonate 21.9 mmol/L (22-26); Blood Gas Specimen Type ART; FI02 44; O2 Delivery Device Cannula; PO2 63 mmHG (75-100); SITE L Radial; SO2 93 % (95-99); Total Carbon Dioxide 23 mmol/L; pCO2 30.9 mmHg (35-45); pH 7.46 (7.35-7.45)
[2019-12-16 21:46] LABS: POSITIVE COUNT NO; POSITIVE DIFFERENTIAL NO; POSITIVE MORPHOLOGY NO
[2019-12-16 21:53] LABS: International Normalized Ratio 1.1; Prothrombin Time (Protime)PT. 13.2 SECONDS (11.7-14.9)
[2019-12-16 21:54] LABS: Partial Thromboplast Time 29.3 Seconds (24.1-36.2)
[2019-12-16 22:05] LABS: ALB/GLOB Ratio 0.9 RATIO (0.9-2.4); AST(SGOT) 29 U/L (15-37); Alanine Aminotransfer ALT/SGPT 32 U/L (13-56); Albumin, Serum 3.4 g/dL (3.2-5.0); Alkaline Phosphatase 57 U/L (45-117); Anion Gap 7 (5-15); BUN 16 mg/dL (7-18); BUN/Creat Ratio 21.9 RATIO (10-20); Calcium,Total 7.6 mg/dL (8.5-10.1); Chloride 113 mmol/L (98-107); Creatinine, Serum 0.73 mg/dL (0.55-1.02); EST Glomerular Filtration Rate 84 mL/min (>60); Est Glom Filt Rate - Afr Amer 101 mL/min (>60); Estimated Creatinine Clearance 53.56 ml/min; Globulin 3.6 g/dL (2.2-4.2); Glucose 122 mg/dL (74-106); Potassium 3.4 mmol/L (3.5-5.1); Sodium Level 143 mmol/L (136-145)
[2019-12-16 22:30] LABS: Lactic Acid 1.1 mmol/L (0.4-1.9)
[2019-12-16 22:42] LABS: Bacteria 0 SEEN /hpf (None Seen)
[2019-12-16 22:46] LABS: Color, Urine Yellow (Yellow); Glucose, Dipstick Normal (Normal); Ketone-Dipstick Negative (Negative); Leukocyte Esterase-Dipstick Negative /ul (Negative); Nitrite-Dipstick Negative (Negative); Occult Blood-Urine 25 /ul (Negative); Protein-Dipstick 100 mg/dl (Negative); Specific Gravity, Urine 1.025 (1.002-1.030); Urine Bilirubin Dipstick Negative (Negative); Urine Clarity Clear (Clear); Urine Urobilinogen Normal (Normal)
[2019-12-16] MEDS: Acetaminophen 500 MG Tablet 1000 MG PO (22:47)
[2019-12-16 22:56] LABS: Mucous, Urine 2+ /hpf (<or=2+)
[2019-12-16 22:59] LABS: Red Blood Cells-Urine 0-5 SEEN /hpf (0-5); Squamous Epithelial Cells - UA 0-5 SEEN /hpf (5-10)
[2019-12-16 23:01] LABS: White Blood Cells 0-5 SEEN /hpf (0-5)
--- NOTE | 2019-12-16 23:22 | ED.VIS.GEN ---
History of Present Illness Chief Complaint: Shortness of Breath Informant: Patient Narrative: 69-year-old female with past medical history of hypertension, hyperlipidemia, HESHAM presents with concern for shortness of breath and weakness. Patient states that for the past 4 to 5 days she has had worsening shortness of breath. Admits to cough and fever. Was seen by her primary care doctor yesterday where she had a COVID test which is pending. Was told to treat her as influenza. Denies any chest pain, nausea, vomiting, abdominal pain. No sick contacts. Past Medical History - Allergies and Home Meds Allergies/Adverse Reactions: Allergies codeine Allergy (Mild, Verified 06/04/19 10:30) roaring sounds, hives Penicillins Allergy (Mild, Verified 06/04/19 10:30) hives Prior records reviewed: Yes Past Medical History: - - HTN, HLD, HESHAM Lives: Spouse/ Significant Other Smoking Status: Never smoker Alcohol: None Drugs: None Review of Systems General: Reports: Fever, Malaise. Denies: Chills, Sweats Eyes: Denies: Visual changes - bilaterally, Diplopia ENT: Denies: Rhinorrhea, Sore throat Cardiovascular: Denies: Chest pain, Palpitations Respiratory: Reports: Dyspnea, Cough. Denies: Dyspnea on exertion Gastrointestinal: Denies: Abdominal pain, Nausea, Vomiting, Diarrhea, Melena, Hematochezia Genitourinary: Denies: Dysuria, Hematuria, Frequency Musculoskeletal: Denies: Back pain, Extremity Pain Skin: Denies: Rash, Wounds Neurological: Denies: Headache, Weakness, Numbness Physical Exam Vital Signs/Narrative: Vital Signs Temp Pulse Resp BP Pulse Ox 12/16/19 23:11 103.7 F H 87 16 147/75 H 95 12/16/19 22:25 103.7 F H 87 16 147/75 H 95 12/16/19 22:13 89 14 96 12/16/19 21:37 94 20 H 12/16/19 21:25 94 28 H 187/90 H 94 12/16/19 21:21 93 12/16/19 21:18 99 F 99 34 H 187/90 H 66 Inital Vital Signs reviewed: Yes General: Well nourished, Well developed, No Acute Distress Head: Normocephalic, Atraumatic Eyes: Perrl, EOMI ENT: Moist mucous membranes, No rhinorrhea Neck: Supple, Nontender Cardiovascular: Regular rate, Regular rhythm, No murmurs Respiratory: Chest nontender, - - Coarse breath sounds bilaterally. Moderate respiratory distress. Abdomen: Soft, Nontender, Nondistended, Normal bowel sounds Back: Nontender, Normal Inspection Extremities: Nontender, No edema Skin: Normal color, No rash Neurological: Alert, Oriented x3, Cranial nerves II-XII grossly intact, Normal Strength, Normal Sensation Psychological: Normal affect, Normal Mood Diagnostic/Tx/Re-eval Chest X-Ray - ED: 1 View, - - Bilateral groundglass opacities Clinical Impression(s) from Imaging Studies Chest X-Ray 12/16/19 21:42 IMPRESSION: Bilateral pneumonia. Electronically Signed: Colin Arguelles MD at 22:03 EDT , Service support , Laboratory Data 12/16/19 12/16/19 12/16/19 21:30 21:30 21:30 WBC 4.3 L RBC 4.45 Hgb 14.0 Hct 42.3 MCV 95.1 MCH 31.5 MCHC 33.1 RDW Std Deviation 43.7 RDW Coeff of Kristie 12.5 Plt Count 199 MPV 10.1 Immature Gran % (Auto) 0.500 Neut % (Auto) 71.9 H Lymph % (Auto) 17.3 L Blanco % (Auto) 10.1 H Eos % (Auto) 0.0 Baso % (Auto) 0.2 Absolute Neuts (auto) 3.1 Absolute Lymphs (auto) 0.74 L Nucleated RBC % 0 PT 13.2 INR 1.1 APTT 29.3 Specimen Type Sample Site pH Bicarbonate Actual Total CO2 Base Excess O2 Saturation O2 % ABG pCO2 ABG pO2 O2 Delivery Device Sodium 143 Potassium 3.4 L Chloride 113 H Carbon Dioxide 23.0 Anion Gap 7 BUN 16 Creatinine 0.73 Estim Creat Clear Calc 53.56 Est GFR (MDRD) Af Amer 101 Est GFR (MDRD) Non-Af 84 BUN/Creatinine Ratio 21.9 H Glucose 122 H Lactic Acid Calcium 7.6 L Total Bilirubin 0.30 AST 29 ALT 32 Alkaline Phosphatase 57 Troponin I < 0.015 Total Protein 7.0 Albumin 3.4 Globulin 3.6 Albumin/Globulin Ratio 0.9 Urine Color Urine Clarity Urine pH Ur Specific [place] Urine Protein Urine Glucose (UA) Urine Ketones Urine Occult Blood Urine Nitrite Urine Bilirubin Urine Urobilinogen Ur Leukocyte Esterase Urine RBC Urine WBC Ur Squamous Epith Cells Urine Bacteria Urine Mucus 12/16/19 12/16/19 12/16/19 21:30 21:39 22:30 WBC RBC Hgb Hct MCV MCH MCHC RDW Std Deviation RDW Coeff of Kristie Plt Count MPV Immature Gran % (Auto) Neut % (Auto) Lymph % (Auto) Blanco % (Auto) Eos % (Auto) Baso % (Auto) Absolute Neuts (auto) Absolute Lymphs (auto) Nucleated RBC % PT INR APTT Specimen Type ART Sample Site L Radial pH 7.46 H Bicarbonate Actual 21.9 L Total CO2 23 Base Excess -2 O2 Saturation 93 L O2 % 44 ABG pCO2 30.9 L ABG pO2 63 L O2 Delivery Device Cannula Sodium Potassium Chloride Carbon Dioxide Anion Gap BUN Creatinine Estim Creat Clear Calc Est GFR (MDRD) Af Amer Est GFR (MDRD) Non-Af BUN/Creatinine Ratio Glucose Lactic Acid 1.1 Calcium Total Bilirubin AST ALT Alkaline Phosphatase Troponin I Total Protein Albumin Globulin Albumin/Globulin Ratio Urine Color Yellow Urine Clarity Clear Urine pH 5.0 Ur Specific [place] 1.025 Urine Protein 100 H Urine Glucose (UA) Normal Urine Ketones Negative Urine Occult Blood 25 H Urine Nitrite Negative Urine Bilirubin Negative Urine Urobilinogen Normal Ur Leukocyte Esterase Negative Urine RBC 0-5 SEEN Urine WBC 0-5 SEEN Ur Squamous Epith Cells 0-5 SEEN Urine Bacteria 0 SEEN Urine Mucus 2+ - Rhythm Strip Rhythm Strip: Sinus Rhythm Rate: 93 Ectopy: None - EKG Initial EKG Interpretation: Sinus Rhythm - Sinus rhythm at 93 bpm. AK and QTC within normal limits. Nonspecific ST changes. - Medical Decision Making Patient presented in respiratory distress with pulse oximetry of 60% on room air. Patient was placed on 6 L nasal cannula which increased her to approximately 92 to 93%. ABG showed continued hypoxemia and patient was placed on high flow nasal cannula at 40 L. Patient was given DuoNeb breathing treatment. X-ray shows concern for coronavirus. Lab work mild hypokalemia which was replaced p.o. Patient's respiratory distress resolved with high flow nasal cannula. Coronavirus positive. Given her increased oxygen requirement patient will be admitted to the intensive care unit. Impression: 1. COVID pneumonia 2. Acute hypoxemic respiratory failure 3. Hypokalemia ED Disposition - Plan for ED Patient: Disposition: Acute Care Hospital [facility]
--- NOTE | 2019-12-16 23:49 | PCM.HP.STD ---
Problem List (1) Acute respiratory failure with hypoxia Status: Acute (2) Suspected COVID-19 virus infection Status: Acute (3) Bimalleolar fracture of right ankle Status: Resolved Qualifiers: Encounter type: subsequent encounter Fracture type: closed Fracture healing: with routine healing Qualified Code(s): S82.841D - Displaced bimalleolar fracture of right lower leg, subsequent encounter for closed fracture with routine healing (4) Syndesmotic disruption of right ankle Status: Resolved Qualifiers: Encounter type: subsequent encounter Qualified Code(s): S93.431D - Sprain of tibiofibular ligament of right ankle, subsequent encounter (5) Dislocation of right ankle joint Status: Resolved Qualifiers: Encounter type: subsequent encounter Qualified Code(s): S93.04XD - Dislocation of right ankle joint, subsequent encounter (6) SOB (shortness of breath) Status: Chronic (7) Pulmonary hypertension Status: Chronic (8) Essential hypertension Status: Chronic (9) Sebaceous cyst Status: Resolved (10) Urinary incontinence Status: Chronic Qualifiers: Urinary Incontinence type: urge incontinence Qualified Code(s): N39.41 - Urge incontinence Comment: UA and culture and start oxybutinin (11) Mood disorder Status: Chronic (12) Edema Status: Resolved Qualifiers: Edema type: unspecified Qualified Code(s): R60.9 - Edema, unspecified (13) Hyperlipidemia Status: Chronic Qualifiers: Hyperlipidemia type: unspecified Qualified Code(s): E78.5 - Hyperlipidemia, unspecified History of Present Illness Date of Admission: 12/16/19 Chief Complaint: shortness of breath. The patient is a 69 year old F presents with a several day history of progressive shortness of breath. Presented to her primary care doctor's office today and had a COVID test, results of which are still pending at this time. She denies any known exposure though she combat a week ago, was around a friend's who works with the [employer] but was a very brief interaction. Patient states that she is not had any other known or suspected contact with anyone with COVID-19. She presented to the emergency room later today after just getting even more short of breath. Patient pulse ox dropped down to around 66%. Patient was then put on high flow oxygen and has improved since then. In the emergency room, patient received aerosols and potassium. Patient is also been having fevers during these past few days as well. She denies any anosmia nor dysgeusia. [] Past Medical History Past Medical History (Chronic Problems): Chronic Problems (Last Reviewed 08/15/18 @ 13:44 by Phuong Kebede) SOB (shortness of breath) (Chronic) Pulmonary hypertension (Chronic) Essential hypertension (Chronic) Urinary incontinence (Chronic) UA and culture and start oxybutinin Mood disorder (Chronic) Hyperlipidemia (Chronic) Medical History: Medical History (Last Reviewed 12/16/19 @ 23:[address] Gilberto Rockwell, DO) Pulmonary hypertension (Chronic) I27.20 Essential hypertension (Chronic) I10 Sebaceous cyst (Acute) L72.3 Mood disorder (Acute) F39 Edema (Acute) R60.9 Hyperlipidemia (Chronic) E78.5 History of left heart catheterization (LHC) Onset Date: ~07/19/18 Z98.890 prox LAD 10-25% stenosis 07/19/18 Osteoarthritis M19.90 HESHAM (obstructive sleep apnea) G47.33 Hypertension (Inactive) I10 Allergies codeine Allergy (Mild, Verified 06/04/19 10:30) roaring sounds, hives Penicillins Allergy (Mild, Verified 06/04/19 10:30) hives Home Medications: Ambulatory Orders Medication Instructions Recorded citalopram 20 mg tablet 20 mg PO QDAY 10/09/17 aspirin 81 mg tablet,delayed 81 mg PO DAILY #30 tab 06/24/18 release olmesartan 40 1 tab PO DAILY 06/24/18 mg-hydrochlorothiazide 12.5 mg tablet oxybutynin chloride 5 mg 5 mg PO QDAY tab 06/24/18 tablet,extended release 24 hr pravastatin 40 mg tablet 40 mg PO DAILY 06/24/18 potassium chloride 10 mEq 20 meq PO DAILY tab 08/15/18 tablet,extended release amlodipine 10 mg tablet 10 mg PO DAILY #90 ea 05/26/19 furosemide 40 mg tablet 80 mg PO DAILY #180 ea 05/26/19 Surgical History: Surgical History (Last Reviewed 12/16/19 @ 23:[address] Gilberto Rockwell, DO) History of Z98.891 History of tonsillectomy Z90.89 S/P dilation and curettage Z98.890 S/P partial thyroidectomy Z98.890 S/P right knee arthroscopy Z98.890 exploratory surgery due to female issues Lives: Spouse/ Significant Other Smoking Status: Never smoker Alcohol: None Drugs: None - *Family History Maternal Family History: Family History (Last Reviewed 12/16/19 @ 23:[address] Gilberto Rockwell, DO) Father Heart disease Hypertension Hyperlipidemia Mother Diabetes Breast cancer Heart disease Hypertension Hyperlipidemia Sister CVA (cerebral vascular accident) Review of Systems Constitutional: Reports: Chills, Fever, Malaise. Denies: Anorexia Eyes: Denies: Blurred vision, Double vision HEENT: Denies: Head Aches, Sinus Congestion, Sinus Drainage Cardiovascular: Denies: Chest Pain, Palpitations Respiratory: Reports: Shortness of Breath. Denies: Cough Gastrointestinal: Denies: Abdominal Pain, Nausea, Vomiting Genitourinary: Denies: Dysuria Musculoskeletal: Denies: Joint Pain, Joint Tenderness Skin: Denies: Rash, Wounds Neurological: Denies: Numbness, Tingling, Focal weakness Psychiatric: Denies: Anxiety, Depression Hematologic/ Lymphatic: Reports: Hx of blood clot - After a fracture. Denies: Easy Bruising, Easy Bleeding Comment: All review of systems were negative except as mentioned above in the history of present illness and the other review of systems. VTE Information - Inpt Only VTE Present on Admission: No VTE Mechan Device Prophylaxis: None VTE Pharm Prophylaxis ordered?: Yes - Physical Exam Vitals/I&O's: Vital Signs Temp Pulse Resp BP Pulse Ox 39.8 C H 87 16 147/75 H 95 12/16/19 23:11 12/16/19 23:11 12/16/19 23:11 12/16/19 23:11 12/16/19 23:11 Oxygen Flow Rate (L/min) 40 Oxygen Delivery Method Nasal Cannula Weight: 109.6 kg Body Mass Index (BMI) 36.7 General: Alert, Cooperative HEENT: Atraumatic, Normocephalic Oral: Moist Mucosa, No Gingival or Mucosal Lesions/ Ulcerations Neck: No Nodes, Thyroid Normal Size and Texture Lungs: Diminished, - - Coarse breath sounds bilaterally Cardiovascular: Regular rate, Regular Rhythm, Normal S1, Normal S2, No murmurs Abdomen: Bowel Sounds Present, Soft, Non Tender, Non-Distended, No Hepato-splenomegaly, Obese Extremities: No edema, No Calf Tenderness Skin: No rashes, No breakdown Musculoskeletal: No Tenderness to Palpation of Joints or Extremities, No Muscle Wasting Psych/Mental Status: Normal Affect, Appropriate Microbiology Past 72 Hours 12/16/19 21:35 Mucosa - Nose Influenza Types A,B Direct FA (KAMLESH) - Final Laboratory Results 12/16/19 21:23: COVID-19 (SONNY) Detected 12/16/19 21:30: WBC 4.3 L, RBC 4.45, Hgb 14.0, Hct 42.3, MCV 95.1, MCH 31.5, MCHC 33.1, RDW Std Deviation 43.7, RDW Coeff of Kristie 12.5, Plt Count 199, MPV 10.1, Immature Gran % (Auto) 0.500, Neut % (Auto) 71.9 H, Lymph % (Auto) 17.3 L, Stephenson % (Auto) 10.1 H, Eos % (Auto) 0.0, Baso % (Auto) 0.2, Absolute Neuts (auto) 3.1, Absolute Lymphs (auto) 0.74 L, Nucleated RBC % 0 12/16/19 21:30: PT 13.2, INR 1.1, APTT 29.3 12/16/19 21:30: Sodium 143, Potassium 3.4 L, Chloride 113 H, Carbon Dioxide 23.0, Anion Gap 7, BUN 16, Creatinine 0.73, Estim Creat Clear Calc 53.56, Est GFR (MDRD) Af Amer 101, Est GFR (MDRD) Non-Af 84, BUN/Creatinine Ratio 21.9 H, Glucose 122 H, Calcium 7.6 L, Total Bilirubin 0.30, AST 29, ALT 32, Alkaline Phosphatase 57, Troponin I < 0.015, Total Protein 7.0, Albumin 3.4, Globulin 3.6, Albumin/Globulin Ratio 0.9 12/16/19 21:30: Lactic Acid 1.1 12/16/19 21:39: Specimen Type ART, Sample Site L Radial, pH 7.46 H, Bicarbonate Actual 21.9 L, Total CO2 23, Base Excess -2, O2 Saturation 93 L, O2 % 44, ABG pCO2 30.9 L, ABG pO2 63 L, O2 Delivery Device Cannula 12/16/19 22:30: Urine Color Yellow, Urine Clarity Clear, Urine pH 5.0, Ur Specific [place] 1.025, Urine Protein 100 H, Urine Glucose (UA) Normal, Urine Ketones Negative, Urine Occult Blood 25 H, Urine Nitrite Negative, Urine Bilirubin Negative, Urine Urobilinogen Normal, Ur Leukocyte Esterase Negative, Urine RBC 0-5 SEEN, Urine WBC 0-5 SEEN, Ur Squamous Epith Cells 0-5 SEEN, Urine Bacteria 0 SEEN, Urine Mucus 2+ Chest x-ray reviewed and showed bilateral infiltrates. Diffuse. Assessment/Plan All Active Problems (Last Reviewed 08/15/18 @ 13:44 by Phuong Kebede) Bimalleolar fracture of right ankle (Resolved) Syndesmotic disruption of right ankle (Resolved) Dislocation of right ankle joint (Resolved) Acute respiratory failure with hypoxia (Acute) Suspected COVID-19 virus infection (Acute) Sebaceous cyst (Resolved) Edema (Resolved) 1. Acute hypoxic respiratory failure: Due to acute COVID-19 infection with possible acute lung injury. On high-flow oxygen and appears to be tolerating this. Wean oxygen as tolerated. Admit to ICU. Consult CCM. Pulmonary toilet. Empiric abx. Check BCx, SCx, urinary antigens. 2. Acute COVID-19. Start dexamethasone and treat for 10 days. Consult ID to see if patient would qualify for remdesivir and convalescent plasma. Empiric abx for now. Enoxaparin therapuetic dosing. Check additional labs (D-dimer, LDH, etc.) 3. H/o VTE: had been provoked previously from a leg fracture. 4. hypokalemia: replaced in ED. monitor 5. HTN: increased earlier while she was distressed, currently better. continue home meds 6. VTE prophylaxis: anticoagulated. Patient seen and examined on 12/16/2019. Billing to reflect this date.
[2019-12-17] VITALS (41 sets, daily range): BP systolic 100–151; BP diastolic 57–92; PULSE 62–98; RESP 12–95; TEMP 36.6–37.2; O2SAT 91–100; BMI 36.2; BMI 36.3
[2019-12-17 00:57] LABS: Fibrinogen 448 mg/dl (203-444)
[2019-12-17 00:58] LABS: LDH 386 U/L (84-246)
[2019-12-17 01:10] LABS: D-Dimer Quantitative (DVT/PE) 0.63 FEU/ug/m (0.27-0.49)
[2019-12-17] MEDS: 0.9% Saline Lock 10 ML Syringe IV ×3 (01:35→09:20)
[2019-12-17] MEDS: dexAMETHasone 10 MG/ML Vial 6 MG IV ×2 (01:35→09:17)
[2019-12-17 04:32] LABS: Absolute Neutrophil Count 3.6 X10^3/uL (2.0-7.7); Basophil# 0.01 X10^3/uL; Basophil% 0.2 % (0-1); Hematocrit 40.1 % (37-47); Hemoglobin 12.9 g/dL (12.0-15.0); Lymphocyte % 13.3 % (19-41); Mean Corp Hgb Conc 32.2 g/dL (32-36); Mean Corpuscular Hgb 31.7 pg (27.0-32.0); Mean Corpuscular Volume 98.5 fL (81-99); Mean Platelet Vol. 10.6 fl (6.2-12.0); Monocyte# 0.27 X10^3/uL; NRBC Flagged by Analyzer 0 % (0-5); Neutrophil # 3.61 X10^3/uL (2.7-7.7); Neutrophil % 80.3 % (47-70); POSITIVE DIFFERENTIAL YES; POSITIVE MORPHOLOGY YES; Platelet Count 198 K/mm3 (150-450); RBC Distribution Width CV 12.6 % (11.6-14.6); RBC Distribution Width SD 45.7 fl (35.1-43.9); Red Blood Count 4.07 M/mm3 (4.2-5.4); White Blood Count 4.5 K/mm3 (4.4-11.0)
[2019-12-17 04:52] LABS: Differential Indicated SCAN CRITERIA MET
[2019-12-17 04:55] LABS: Anion Gap 5 (5-15); BUN 14 mg/dL (7-18); BUN/Creat Ratio 20.4 RATIO (10-20); Calcium,Total 7.5 mg/dL (8.5-10.1); Chloride 109 mmol/L (98-107); Creatinine, Serum 0.69 mg/dL (0.55-1.02); EST Glomerular Filtration Rate 90 mL/min (>60); Est Glom Filt Rate - Afr Amer 109 mL/min (>60); Estimated Creatinine Clearance 53.56 ml/min; Glucose 218 mg/dL (74-106); Potassium 3.6 mmol/L (3.5-5.1); Sodium Level 141 mmol/L (136-145)
[2019-12-17 04:57] LABS: Differential Comment SCANNED
[2019-12-17] MEDS: Ipratropium/Albuterol Sulfate 3 ML AMPUL.NEB INHALATION (07:12)
--- NOTE | 2019-12-17 07:49 | PCM.CON.CC ---
Problem List (1) Acute respiratory failure with hypoxia Status: Acute (2) Suspected COVID-19 virus infection Status: Acute (3) Pulmonary hypertension Status: Chronic (4) Essential hypertension Status: Chronic (5) Mood disorder Status: Chronic (6) Edema Status: Resolved Qualifiers: Edema type: unspecified Qualified Code(s): R60.9 - Edema, unspecified (7) Hyperlipidemia Status: Chronic Qualifiers: Hyperlipidemia type: unspecified Qualified Code(s): E78.5 - Hyperlipidemia, unspecified Reason for Consult Date of Consultation: 12/17/19 Reason for Consultation: COVID-19 History of Present Illness: The patient is a 69 year old F, with past medical history listed below, who presented with [facility] on 12/16/2019 secondary to progressive shortness of breath. Patient states that she started to develop symptoms approximately 6 days ago. Patient states she had cough and fever. Patient did have COVID testing done on the day prior to presentation, but results are still pending. Patient was told that she probably had influenza and was told to use supportive measures in the interim. Patient did have a loose bowel movement, but denied any chest pain, nausea, vomiting or abdominal pain. On presentation to the ER, patient was afebrile, but hypertensive at 187/90. Over the course of the ER visit, patient did develop a fever as high as 103.7 ?F. Chest x-ray showed bilateral groundglass opacities per radiology report. Patient did have some mild leukopenia at 4.3, but other cell lines were appropriate. CMP was unremarkable. ABG shows significant AA gradient. Patient was given duo nebs, but required high flow nasal cannula at 40 L/min to maintain saturations. Patient was admitted to the intensive care unit for further evaluation. Patient does not report any previous lung conditions. Patient states that she does have contact with her that was sick 5 to 6 days before her. He did not receive COVID testing. Patient denies any significant travel history. Patient states that she used to work at [employer] and may have been exposed to asbestos, but has no concrete event. Patient denies any exposure to TB. Patient does report having a loose bowel movement yesterday, but is not reporting any diarrhea. Patient has not required supplemental oxygen previously. Patient does have a CPAP at home and reportedly is compliant with therapy. Patient states that her [employer] is [employer] and she had a sleep study at Dr. Miranda's office. Review of systems otherwise negative from a constitutional, HEENT, respiratory, cardiovascular, GI, genitourinary, musculoskeletal, skin, neurologic, psychiatric and hematologic system unless stated above. Past Medical History Past Medical History (Chronic Problems): Chronic Problems (Last Reviewed 12/16/19 @ 23:[address] Gilberto Rockwell, ) SOB (shortness of breath) (Chronic) Pulmonary hypertension (Chronic) Essential hypertension (Chronic) Urinary incontinence (Chronic) UA and culture and start oxybutinin Mood disorder (Chronic) Hyperlipidemia (Chronic) Medical History: Medical History (Last Reviewed 12/16/19 @ 23:[address] Gilberto Rockwell, ) Pulmonary hypertension (Chronic) I27.20 Essential hypertension (Chronic) I10 Sebaceous cyst (Resolved) L72.3 Mood disorder (Chronic) F39 Edema (Resolved) R60.9 Hyperlipidemia (Chronic) E78.5 History of left heart catheterization (LHC) Onset Date: ~07/19/18 Z98.890 prox LAD 10-25% stenosis 07/19/18 Osteoarthritis M19.90 HESHAM (obstructive sleep apnea) G47.33 Hypertension (Inactive) I10 Allergies codeine Allergy (Mild, Verified 06/04/19 10:30) roaring sounds, hives Penicillins Allergy (Mild, Verified 06/04/19 10:30) hives Home Medications: Ambulatory Orders Medication Instructions Recorded citalopram 20 mg tablet 20 mg PO QDAY 10/09/17 aspirin 81 mg tablet,delayed 81 mg PO DAILY #30 tab 06/24/18 release olmesartan 40 1 tab PO DAILY 06/24/18 mg-hydrochlorothiazide 12.5 mg tablet oxybutynin chloride 5 mg 5 mg PO QDAY tab 06/24/18 tablet,extended release 24 hr pravastatin 40 mg tablet 40 mg PO DAILY 06/24/18 potassium chloride 10 mEq 20 meq PO DAILY tab 08/15/18 tablet,extended release amlodipine 10 mg tablet 10 mg PO DAILY #90 ea 05/26/19 furosemide 40 mg tablet 80 mg PO DAILY #180 ea 05/26/19 Surgical History: Surgical History (Last Reviewed 12/16/19 @ 23:[address] Gilberto Rockwell DO) History of Z98.891 History of tonsillectomy Z90.89 S/P dilation and curettage Z98.890 S/P partial thyroidectomy Z98.890 S/P right knee arthroscopy Z98.890 exploratory surgery due to female issues Lives: Spouse/ Significant Other Smoking Status: Never smoker Alcohol: None Drugs: None - *Family History Maternal Family History: Family History (Last Reviewed 12/16/19 @ 23:[address] Gilberto Rockwell DO) Father Heart disease Hypertension Hyperlipidemia Mother Diabetes Breast cancer Heart disease Hypertension Hyperlipidemia Sister CVA (cerebral vascular accident) Review of Systems Comment: See HPI Patient Problems: Active and Suspected Problems (Last Reviewed 12/16/19 @ 23:[address] Gilberto Rockwell DO) Acute respiratory failure with hypoxia (Acute) Suspected COVID-19 virus infection (Acute) Objective: Chest x-ray was personally reviewed and shows bilateral infiltrates. Complete PFT (10/04/2017): Normal PFT (FVC 105%, FEV1 113%, TLC 110%, DLCO 92%) Patient did have a heart catheterization completed in 2019 showing moderately elevated right heart pressures with elevated LVEDP and an EF of 65%. Patient did have some narrowing of the LAD, but this did not require intervention. - Physical Exam Vitals/I&O's: Vital Signs Temp Pulse Resp BP Pulse Ox 36.6 C 66 12 147/74 H 100 12/17/19 04:00 12/17/19 07:42 12/17/19 07:13 12/17/19 06:59 12/17/19 07:17 Oxygen Flow Rate (L/min) 3 Oxygen Delivery Method Nasal Cannula Weight: 108.2 kg Body Mass Index (BMI) 36.2 Intake and Output for Last 24 Hours 12/15/19 12/16/19 12/17/19 23:59 23:59 23:59 Intake Total 605 / 605 Output Total 150 / 150 Balance 455 / 455 General: Alert, Oriented x3, Cooperative, No apparent distress, Well developed, Well nourished, - - Obese. Mild conversational dyspnea. HEENT: Atraumatic, PERRLA, EOMI, Normocephalic, - - No scleral icterus or injection noted Oral: Moist Mucosa, No Gingival or Mucosal Lesions/ Ulcerations Neck: Supple, No JVD, No Nodes, Trachea Midline Lungs: No rhonchi, No rales, Diminished, Wheezes Cardiovascular: Regular rate, Regular Rhythm, Normal S1, Normal S2, No murmurs, No rub noted, No Gallop Abdomen: Bowel Sounds Present, Soft, Non Tender, Non-Distended, Obese Extremities: No clubbing, No cyanosis, Edema Skin: No rashes, No breakdown Musculoskeletal: No Tenderness to Palpation of Joints or Extremities Lymphatic: No Cervical, Supraclavicular, or Inguinal Adenopathy Neurological: Cranial nerves II-XII grossly intact, Neuro grossly intact, Motor Exam 5/5 strength throughout Psych/Mental Status: Alert and oriented to time, place, person, mood and affect Microbiology Past 72 Hours 12/16/19 22:30 Urine Catheter - Catheter Legionella Antigen - Final 12/16/19 22:30 Urine Catheter - Catheter Streptococcus pneumoniae Antigen (M - Final 12/16/19 21:35 Mucosa - Nose Influenza Types A,B Direct FA (KAMLESH) - Final Laboratory Results 12/16/19 21:23: COVID-19 (SONNY) Detected 12/16/19 21:30: WBC 4.3 L, RBC 4.45, Hgb 14.0, Hct 42.3, MCV 95.1, MCH 31.5, MCHC 33.1, RDW Std Deviation 43.7, RDW Coeff of Kristie 12.5, Plt Count 199, MPV 10.1, Immature Gran % (Auto) 0.500, Neut % (Auto) 71.9 H, Lymph % (Auto) 17.3 L, [place] % (Auto) 10.1 H, Eos % (Auto) 0.0, Baso % (Auto) 0.2, Absolute Neuts (auto) 3.1, Absolute Lymphs (auto) 0.74 L, Nucleated RBC % 0 12/16/19 21:30: PT 13.2, INR 1.1, APTT 29.3 12/16/19 21:30: Sodium 143, Potassium 3.4 L, Chloride 113 H, Carbon Dioxide 23.0, Anion Gap 7, BUN 16, Creatinine 0.73, Estim Creat Clear Calc 53.56, Est GFR (MDRD) Af Amer 101, Est GFR (MDRD) Non-Af 84, BUN/Creatinine Ratio 21.9 H, Glucose 122 H, Calcium 7.6 L, Total Bilirubin 0.30, AST 29, ALT 32, Alkaline Phosphatase 57, Troponin I < 0.015, Total Protein 7.0, Albumin 3.4, Globulin 3.6, Albumin/Globulin Ratio 0.9 12/16/19 21:30: Lactic Acid 1.1 12/16/19 21:30: Fibrinogen 448 H, D-Dimer Quant (PE/DVT) 0.63 H* 12/16/19 21:30: Lactate Dehydrogenase 386 H 12/16/19 21:39: Specimen Type ART, Sample Site L Radial, pH 7.46 H, Bicarbonate Actual 21.9 L, Total CO2 23, Base Excess -2, O2 Saturation 93 L, O2 % 44, ABG pCO2 30.9 L, ABG pO2 63 L, O2 Delivery Device Cannula 12/16/19 22:30: Urine Color Yellow, Urine Clarity Clear, Urine pH 5.0, Ur Specific [employer] 1.025, Urine Protein 100 H, Urine Glucose (UA) Normal, Urine Ketones Negative, Urine Occult Blood 25 H, Urine Nitrite Negative, Urine Bilirubin Negative, Urine Urobilinogen Normal, Ur Leukocyte Esterase Negative, Urine RBC 0-5 SEEN, Urine WBC 0-5 SEEN, Ur Squamous Epith Cells 0-5 SEEN, Urine Bacteria 0 SEEN, Urine Mucus 2+ 12/17/19 04:15: WBC 4.5, RBC 4.07 L, Hgb 12.9, Hct 40.1, MCV 98.5, MCH 31.7, MCHC 32.2, RDW Std Deviation 45.7 H, RDW Coeff of Kristie 12.6, Plt Count 198, MPV 10.6, Immature Gran % (Auto) 0.200, Neut % (Auto) 80.3 H, Lymph % (Auto) 13.3 L, [place] % (Auto) 6.0, Eos % (Auto) 0.0, Baso % (Auto) 0.2, Absolute Neuts (auto) 3.6, Absolute Lymphs (auto) 0.60 L, Nucleated RBC % 0, Differential Comment SCANNED 12/17/19 04:15: Sodium 141, Potassium 3.6, Chloride 109 H, Carbon Dioxide 27.0, Anion Gap 5, BUN 14, Creatinine 0.69, Estim Creat Clear Calc 53.56, Est GFR (MDRD) Af Amer 109, Est GFR (MDRD) Non-Af 90, BUN/Creatinine Ratio 20.4 H, Glucose 218 H, Calcium 7.5 L Current Medications Acetaminophen (Acetaminophen 325 Mg Tablet) 650 mg PO Q6H PRN PRN PRN Reason: Pain Score 1-10/Temp > 100.7 F Albuterol Sulfate (Albuterol 2.5 Mg/3 Ml Vial.Neb.) 2.5 mg INHALATION Q2H PRN PRN PRN Reason: SHORTNESS OF BREATH Albuterol/Ipratropium (Ipratropium/Albuterol Sulfate 3 Ml Ampul.Neb) 3 ml INHALATION Q4HWA.RT MARY Last Admin: 12/17/19 07:12 Dose: 3 ml Documented by: Amlodipine Besylate (Amlodipine 10 Mg Tablet) 10 mg PO DAILY [facility] Aspirin (Aspirin E.C. 81 Mg Tablet) 81 mg PO DAILY [facility] Citalopram Hydrobromide (Citalopram 20 Mg Tablet) 20 mg PO DAILY [facility] Dexamethasone Sodium Phosphate (Dexamethasone 10 Mg/Ml Vial) 6 mg IV DAILY [facility] Last Admin: 12/17/19 01:35 Dose: 6 mg Documented by: Enoxaparin Sodium (Enoxaparin 120 Mg/0.8 Ml Syringe) 110 mg SC Q24 [facility] Furosemide (Furosemide 80 Mg Tablet) 80 mg PO DAILY [facility] Guaifenesin (Guaifenesin 600 Mg Tablet) 600 mg PO BID [facility] Hydrochlorothiazide (Hydrochlorothiazide 12.5mg) 12.5 mg PO DAILY [facility] Sodium Chloride () 250 mls @ 15 mls/hr IV .[id number] PRN PRN Reason: Saline Flush Sodium Chloride () 250 mls @ 15 mls/hr IV .[id number] PRN PRN Reason: Additional IVPB Infusion Azithromycin 500 mg/ Dextrose 255 mls @ 250 mls/hr IV Q24H [facility] Ceftriaxone Sodium 2 gm/ (Sodium Chloride) 50 mls @ 100 mls/hr IV Q24H [facility] Influenza Virus Vaccine Quadrival (Influenza Vaccine (6mos+)/Pf 0.5 Ml Syringe) 0.5 ml IM .ONCE ONE Stop: 12/17/19 10:01 Losartan Potassium (Losartan Potassium 100 Mg Tablet) 100 mg PO DAILY [facility] Ondansetron HCl (Ondansetron 4 Mg/2 Ml Vial) 4 mg IV Q8H PRN PRN PRN Reason: NAUSEA/VOMITING Potassium Chloride (Potassium Chloride 20 Meq Tablet) 20 meq PO DAILY MARY Pravastatin Sodium (Pravastatin 40 Mg Tablet) 40 mg PO QHS MARY Sodium Chloride (0.9% Saline Lock 10 Ml Syringe) 10 - 40 ml IV UD PRN PRN Reason: SALINE FLUSH Last Admin: 12/17/19 04:11 Dose: 10 ml Documented by: Tolterodine Tartrate (Tolterodine Tartrate 2 Mg Cap.Sa) 2 mg PO DAILY MARY Clinical Impression(s) from Imaging Studies Chest X-Ray 12/16/19 21:42 IMPRESSION: Bilateral pneumonia. Electronically Signed: Colin Arguelles MD at 22:03 EDT , Service support , Assessment/Plan Active and Suspected Problems (Last Reviewed 12/16/19 @ 23:[address] Gilberto Rockwell, DO) Acute respiratory failure with hypoxia (Acute) Suspected COVID-19 virus infection (Acute) RECOMMENDATIONS: 1. Obtain type and screen, pro calcitonin and CRP 2. Arrange for convalescent serum 3. Defer to infectious disease on antiretroviral therapy 4. Potentially transition to Eliquis in the next 24 hours 5. Initiate CPAP at home settings with sleep 6. Wean oxygen as tolerated IMPRESSIONS: 1. Acute hypoxic respiratory failure secondary to COVID-19 Patient with bilateral infiltrates and significant increase in AA gradient. Patient does not appear to be fluid overloaded at this time. Given significant hypoxia, day 6 of symptoms and verified COVID-19, will arrange for convalescent serum. Patient is on anticoagulation and Decadron. Defer to infectious disease on potential antiretroviral therapy. Wean oxygen as tolerated. We will continue with empiric antibiotics for now. If procalcitonin is low, this may be able to be discontinued. Infectious disease to see the patient. 2. Hypokalemia/hypertension/obesity/pulmonary hypertension Complicates care, management, recovery and prognosis. Patient did receive potassium supplementation. Patient has had elevated pulmonary artery pressures in the past and a pattern consistent with type II pulmonary hypertension. Will monitor fluid status closely. Patient may require diuretic therapy intermittently. Okay to continue with baseline hypertensive medications at this time. Inpatient E&M: 22718 In Hosp L3
[2019-12-17] MEDS: guaiFENesin 600 MG Tablet PO ×2 (09:15→21:09)
[2019-12-17] MEDS: Aspirin E.C. 81 MG Tablet PO (09:16)
[2019-12-17] MEDS: hydroCHLOROthiazide 12.5mg 12.5 MG PO (09:16)
[2019-12-17] MEDS: Citalopram 20 MG Tablet PO (09:16)
[2019-12-17] MEDS: Losartan Potassium 100 MG Tablet PO (09:16)
[2019-12-17] MEDS: Tolterodine Tartrate 2 MG CAP.SA PO (09:16)
[2019-12-17] MEDS: amLODIPine 10 MG Tablet PO (09:16)
[2019-12-17] MEDS: Furosemide 80 MG Tablet PO (09:17)
[2019-12-17] MEDS: Enoxaparin 120 MG/0.8 ML Syringe 110 MG SC ×2 (09:18→21:09)
--- NOTE | 2019-12-17 10:09 | CPS ---
This RT called [facility] and found out that the patient's home CPAP setting is 9 with a 1L bleed in. Emilie Quigley RRT
[2019-12-17 14:07] LABS: Procalcitonin 0.24 ng/mL (0.00-0.09)
[2019-12-17] MEDS: Acetaminophen 325 MG Tablet 650 MG PO (14:40)
--- NOTE | 2019-12-17 16:13 | CON.PCM_ITS ---
Problem List (1) COVID-19 Status: Acute Reason for Consult: covid Consulted by: Dr. Carvajal History of Present Illness: The patient is a 69 year old F with pulm htn, presented last night with fever, cough, change in taste, dyspnea, n/v/d, fatigue. 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 Sx worsened, came to ED, fever to 103.7, sat 66% on arrival. Started on dex, azithro, ceftriaxone. No sputum. Full ROS performed and neg except as noted above. - Medical History Past Medical History (Chronic Problems): Chronic Problems (Last Reviewed 12/16/19 @ 23:[address] Gilberto Rockwell, DO) SOB (shortness of breath) (Chronic) Pulmonary hypertension (Chronic) Essential hypertension (Chronic) Urinary incontinence (Chronic) UA and culture and start oxybutinin Mood disorder (Chronic) Hyperlipidemia (Chronic) Allergies/Adverse Reactions: Allergies codeine Allergy (Mild, Verified 06/04/19 10:30) roaring sounds, hives Penicillins Allergy (Mild, Verified 06/04/19 10:30) hives Home Medications: Ambulatory Orders Medication Instructions Recorded citalopram 20 mg tablet 20 mg PO QDAY 10/09/17 aspirin 81 mg tablet,delayed 81 mg PO DAILY #30 tab 06/24/18 release olmesartan 40 1 tab PO DAILY 06/24/18 mg-hydrochlorothiazide 12.5 mg tablet oxybutynin chloride 5 mg 5 mg PO QDAY tab 06/24/18 tablet,extended release 24 hr pravastatin 40 mg tablet 40 mg PO DAILY 06/24/18 potassium chloride 10 mEq 20 meq PO DAILY tab 08/15/18 tablet,extended release amlodipine 10 mg tablet 10 mg PO DAILY #90 ea 05/26/19 furosemide 40 mg tablet 80 mg PO DAILY #180 ea 05/26/19 - Social History Tobacco Use: non-smoker Vital Signs Temp Pulse Resp BP Pulse Ox 98.5 F 73 16 127/79 H 93 12/17/19 14:00 12/17/19 15:50 12/17/19 15:00 12/17/19 15:00 12/17/19 15:00 Oxygen Flow Rate (L/min) 2 Oxygen Delivery Method Nasal Cannula Weight: 108.2 kg Body Mass Index (BMI) 36.2 Microbiology Past 72 Hours 12/16/19 22:30 Legionella Antigen - Final Urine Catheter - Catheter Streptococcus pneumoniae Antigen (M - Final 12/16/19 21:35 Influenza Types A,B Direct FA (KAMLESH) - Final Mucosa - Nose Laboratory Tests Past 24 Hrs 12/16/19 12/16/19 12/16/19 21:23 21:30 21:30 WBC 4.3 L RBC 4.45 Hgb 14.0 Hct 42.3 MCV 95.1 MCH 31.5 MCHC 33.1 RDW Std Deviation 43.7 RDW Coeff of Kristie 12.5 Plt Count 199 MPV 10.1 Immature Gran % (Auto) 0.500 Neut % (Auto) 71.9 H Lymph % (Auto) 17.3 L [place] % (Auto) 10.1 H Eos % (Auto) 0.0 Baso % (Auto) 0.2 Absolute Neuts (auto) 3.1 Absolute Lymphs (auto) 0.74 L Nucleated RBC % 0 Differential Comment PT 13.2 INR 1.1 APTT 29.3 Fibrinogen D-Dimer Quant (PE/DVT) Specimen Type Sample Site pH Bicarbonate Actual Total CO2 Base Excess O2 Saturation O2 % ABG pCO2 ABG pO2 O2 Delivery Device Sodium Potassium Chloride Carbon Dioxide Anion Gap BUN Creatinine Estim Creat Clear Calc Est GFR (MDRD) Af Amer Est GFR (MDRD) Non-Af BUN/Creatinine Ratio Glucose Lactic Acid Calcium Total Bilirubin AST ALT Alkaline Phosphatase Lactate Dehydrogenase Troponin I C-React Prot Ext Range Total Protein Albumin Globulin Albumin/Globulin Ratio Procalcitonin Urine Color Urine Clarity Urine pH Ur Specific [place] Urine Protein Urine Glucose (UA) Urine Ketones Urine Occult Blood Urine Nitrite Urine Bilirubin Urine Urobilinogen Ur Leukocyte Esterase Urine RBC Urine WBC Ur Squamous Epith Cells Urine Bacteria Urine Mucus COVID-19 (SONNY) Detected Blood Type Antibody Screen 12/16/19 12/16/19 12/16/19 21:30 21:30 21:30 WBC RBC Hgb Hct MCV MCH MCHC RDW Std Deviation RDW Coeff of Kristie Plt Count MPV Immature Gran % (Auto) Neut % (Auto) Lymph % (Auto) [place] % (Auto) Eos % (Auto) Baso % (Auto) Absolute Neuts (auto) Absolute Lymphs (auto) Nucleated RBC % Differential Comment PT INR APTT Fibrinogen 448 H D-Dimer Quant (PE/DVT) 0.63 H* Specimen Type Sample Site pH Bicarbonate Actual Total CO2 Base Excess O2 Saturation O2 % ABG pCO2 ABG pO2 O2 Delivery Device Sodium 143 Potassium 3.4 L Chloride 113 H Carbon Dioxide 23.0 Anion Gap 7 BUN 16 Creatinine 0.73 Estim Creat Clear Calc 53.56 Est GFR (MDRD) Af Amer 101 Est GFR (MDRD) Non-Af 84 BUN/Creatinine Ratio 21.9 H Glucose 122 H Lactic Acid 1.1 Calcium 7.6 L Total Bilirubin 0.30 AST 29 ALT 32 Alkaline Phosphatase 57 Lactate Dehydrogenase Troponin I < 0.015 C-React Prot Ext Range Total Protein 7.0 Albumin 3.4 Globulin 3.6 Albumin/Globulin Ratio 0.9 Procalcitonin Urine Color Urine Clarity Urine pH Ur Specific [place] Urine Protein Urine Glucose (UA) Urine Ketones Urine Occult Blood Urine Nitrite Urine Bilirubin Urine Urobilinogen Ur Leukocyte Esterase Urine RBC Urine WBC Ur Squamous Epith Cells Urine Bacteria Urine Mucus COVID-19 (SONNY) Blood Type Antibody Screen 12/16/19 12/16/19 12/16/19 21:30 21:39 22:30 WBC RBC Hgb Hct MCV MCH MCHC RDW Std Deviation RDW Coeff of Kristie Plt Count MPV Immature Gran % (Auto) Neut % (Auto) Lymph % (Auto) [place] % (Auto) Eos % (Auto) Baso % (Auto) Absolute Neuts (auto) Absolute Lymphs (auto) Nucleated RBC % Differential Comment PT INR APTT Fibrinogen D-Dimer Quant (PE/DVT) Specimen Type ART Sample Site L Radial pH 7.46 H Bicarbonate Actual 21.9 L Total CO2 23 Base Excess -2 O2 Saturation 93 L O2 % 44 ABG pCO2 30.9 L ABG pO2 63 L O2 Delivery Device Cannula Sodium Potassium Chloride Carbon Dioxide Anion Gap BUN Creatinine Estim Creat Clear Calc Est GFR (MDRD) Af Amer Est GFR (MDRD) Non-Af BUN/Creatinine Ratio Glucose Lactic Acid Calcium Total Bilirubin AST ALT Alkaline Phosphatase Lactate Dehydrogenase 386 H Troponin I C-React Prot Ext Range Total Protein Albumin Globulin Albumin/Globulin Ratio Procalcitonin Urine Color Yellow Urine Clarity Clear Urine pH 5.0 Ur Specific [place] 1.025 Urine Protein 100 H Urine Glucose (UA) Normal Urine Ketones Negative Urine Occult Blood 25 H Urine Nitrite Negative Urine Bilirubin Negative Urine Urobilinogen Normal Ur Leukocyte Esterase Negative Urine RBC 0-5 SEEN Urine WBC 0-5 SEEN Ur Squamous Epith Cells 0-5 SEEN Urine Bacteria 0 SEEN Urine Mucus 2+ COVID-19 (SONNY) Blood Type Antibody Screen 12/17/19 12/17/19 12/17/19 04:15 04:15 08:30 WBC 4.5 RBC 4.07 L Hgb 12.9 Hct 40.1 MCV 98.5 MCH 31.7 MCHC 32.2 RDW Std Deviation 45.7 H RDW Coeff of Kristie 12.6 Plt Count 198 MPV 10.6 Immature Gran % (Auto) 0.200 Neut % (Auto) 80.3 H Lymph % (Auto) 13.3 L [place] % (Auto) 6.0 Eos % (Auto) 0.0 Baso % (Auto) 0.2 Absolute Neuts (auto) 3.6 Absolute Lymphs (auto) 0.60 L Nucleated RBC % 0 Differential Comment SCANNED PT INR APTT Fibrinogen D-Dimer Quant (PE/DVT) Specimen Type Sample Site pH Bicarbonate Actual Total CO2 Base Excess O2 Saturation O2 % ABG pCO2 ABG pO2 O2 Delivery Device Sodium 141 Potassium 3.6 Chloride 109 H Carbon Dioxide 27.0 Anion Gap 5 BUN 14 Creatinine 0.69 Estim Creat Clear Calc 53.56 Est GFR (MDRD) Af Amer 109 Est GFR (MDRD) Non-Af 90 BUN/Creatinine Ratio 20.4 H Glucose 218 H Lactic Acid Calcium 7.5 L Total Bilirubin AST ALT Alkaline Phosphatase Lactate Dehydrogenase Troponin I C-React Prot Ext Range 33.80 H Total Protein Albumin Globulin Albumin/Globulin Ratio Procalcitonin Urine Color Urine Clarity Urine pH Ur Specific [place] Urine Protein Urine Glucose (UA) Urine Ketones Urine Occult Blood Urine Nitrite Urine Bilirubin Urine Urobilinogen Ur Leukocyte Esterase Urine RBC Urine WBC Ur Squamous Epith Cells Urine Bacteria Urine Mucus COVID-19 (SONNY) Blood Type Antibody Screen 12/17/19 12/17/19 08:30 11:30 WBC RBC Hgb Hct MCV MCH MCHC RDW Std Deviation RDW Coeff of Kristie Plt Count MPV Immature Gran % (Auto) Neut % (Auto) Lymph % (Auto) [place] % (Auto) Eos % (Auto) Baso % (Auto) Absolute Neuts (auto) Absolute Lymphs (auto) Nucleated RBC % Differential Comment PT INR APTT Fibrinogen D-Dimer Quant (PE/DVT) Specimen Type Sample Site pH Bicarbonate Actual Total CO2 Base Excess O2 Saturation O2 % ABG pCO2 ABG pO2 O2 Delivery Device Sodium Potassium Chloride Carbon Dioxide Anion Gap BUN Creatinine Estim Creat Clear Calc Est GFR (MDRD) Af Amer Est GFR (MDRD) Non-Af BUN/Creatinine Ratio Glucose Lactic Acid Calcium Total Bilirubin AST ALT Alkaline Phosphatase Lactate Dehydrogenase Troponin I C-React Prot Ext Range Total Protein Albumin Globulin Albumin/Globulin Ratio Procalcitonin 0.24 H Urine Color Urine Clarity Urine pH Ur Specific [place] Urine Protein Urine Glucose (UA) Urine Ketones Urine Occult Blood Urine Nitrite Urine Bilirubin Urine Urobilinogen Ur Leukocyte Esterase Urine RBC Urine WBC Ur Squamous Epith Cells Urine Bacteria Urine Mucus COVID-19 (SONNY) Blood Type O POSITIVE Antibody Screen NEGATIVE - Other Studies Radiology: [] reviewed Other Studies: [] Route of nutrition/ use of supplements: [] Nutritional Intake: [] IV Site: [] Lara Catheter: [] - Physical Exam General: Alert, Oriented x3, Cooperative HEENT: Atraumatic, PERRLA, EOMI Neck: Supple, No Nodes Lungs: Diminished Cardiovascular: Regular rate, Regular Rhythm, No murmurs Abdomen: Soft, Non Tender, Non-Distended Extremities: No edema Skin: No rashes IV Site: Peripheral, without redness Musculoskeletal: No Tenderness to Palpation of Joints or Extremities Neurological: Cranial nerves II-XII grossly intact - Assessment/Plan Antibiotics: [] Assessment/Plan: [] Active and Suspected Problems (Last Reviewed 12/16/19 @ 23:[address] Gilberto Rockwell, DO) Acute respiratory failure with hypoxia (Acute) Suspected COVID-19 virus infection (Acute) covid with acute hypoxic resp failure - on dex and therapeutic lovenox. Minimally elevated d-dimer. Consider decreasing lovenox or checking CTA of ches t. Will stop azithro/ceftriaxone. UAgs neg, low suspicion for bacterial process. Plasma order by pulm. Will order remdesivir. Reviewed EUA and risks/benefits with her, and she consents to remdesivir. Will follow, thank you
--- NOTE | 2019-12-17 17:20 | PCM.PN.HOSP ---
Patient Problems: Active and Suspected Problems (Last Reviewed 12/16/19 @ 23:[address] Gilberto Rockwell, DO) Acute respiratory failure with hypoxia (Acute) Suspected COVID-19 virus infection (Acute) COVID-19 (Acute) Subjective: Pt states that she is feeling better today but still pretty rough. PO intake is fine. Now sense of smell has been compromised. Vitals/I&O's: Vital Signs Temp Pulse Resp BP Pulse Ox 98.5 F 70 15 122/84 H 92 12/17/19 14:00 12/17/19 16:00 12/17/19 16:00 12/17/19 16:00 12/17/19 16:00 Oxygen Flow Rate (L/min) 3 Oxygen Delivery Method Nasal Cannula Weight: 108.2 kg Body Mass Index (BMI) 36.2 Intake and Output for Last 24 Hours 12/15/19 12/16/19 12/17/19 23:59 23:59 23:59 Intake Total 1305 / 1305 Output Total 1550 / 1550 Balance -245 / -245 General: Alert, Oriented x3, Cooperative, No apparent distress, Well developed, Well nourished, - - Older WF sitting up in a chair watching TV, appears comfortable, Non-toxic, no dyspnea with conversation Oral: Moist Mucosa, No Gingival or Mucosal Lesions/ Ulcerations, - - dentures in place Neck: Supple, Trachea Midline Lungs: Clear to auscultation, Normal air movement, No rhonchi, No wheeze, No rales Cardiovascular: Regular rate, Regular Rhythm, Normal S1, Normal S2, No murmurs, No Ectopic Activity, No rub noted, No Gallop Abdomen: Bowel Sounds Present, Soft, Non Tender, Non-Distended, No hernias noted Extremities: No clubbing, No cyanosis, No edema, Capillary Refill Less than 3 Seconds, Peripheral Pulses Normal Skin: No rashes, No breakdown Musculoskeletal: No Tenderness to Palpation of Joints or Extremities, No Muscle Wasting Neurological: Cranial nerves II-XII grossly intact, Neuro grossly intact Psych/Mental Status: Normal Affect, Appropriate Microbiology Past 72 Hours 12/16/19 22:30 Urine Catheter - Catheter Legionella Antigen - Final 12/16/19 22:30 Urine Catheter - Catheter Streptococcus pneumoniae Antigen (M - Final 12/16/19 21:35 Mucosa - Nose Influenza Types A,B Direct FA (KAMLESH) - Final Laboratory Results 12/16/19 21:23: COVID-19 (SONNY) Detected 12/16/19 21:30: WBC 4.3 L, RBC 4.45, Hgb 14.0, Hct 42.3, MCV 95.1, MCH 31.5, MCHC 33.1, RDW Std Deviation 43.7, RDW Coeff of Kristie 12.5, Plt Count 199, MPV 10.1, Immature Gran % (Auto) 0.500, Neut % (Auto) 71.9 H, Lymph % (Auto) 17.3 L, [place] % (Auto) 10.1 H, Eos % (Auto) 0.0, Baso % (Auto) 0.2, Absolute Neuts (auto) 3.1, Absolute Lymphs (auto) 0.74 L, Nucleated RBC % 0 12/16/19 21:30: PT 13.2, INR 1.1, APTT 29.3 12/16/19 21:30: Sodium 143, Potassium 3.4 L, Chloride 113 H, Carbon Dioxide 23.0, Anion Gap 7, BUN 16, Creatinine 0.73, Estim Creat Clear Calc 53.56, Est GFR (MDRD) Af Amer 101, Est GFR (MDRD) Non-Af 84, BUN/Creatinine Ratio 21.9 H, Glucose 122 H, Calcium 7.6 L, Total Bilirubin 0.30, AST 29, ALT 32, Alkaline Phosphatase 57, Troponin I < 0.015, Total Protein 7.0, Albumin 3.4, Globulin 3.6, Albumin/Globulin Ratio 0.9 12/16/19 21:30: Lactic Acid 1.1 12/16/19 21:30: Fibrinogen 448 H, D-Dimer Quant (PE/DVT) 0.63 H* 12/16/19 21:30: Lactate Dehydrogenase 386 H 12/16/19 21:39: Specimen Type ART, Sample Site L Radial, pH 7.46 H, Bicarbonate Actual 21.9 L, Total CO2 23, Base Excess -2, O2 Saturation 93 L, O2 % 44, ABG pCO2 30.9 L, ABG pO2 63 L, O2 Delivery Device Cannula 12/16/19 22:30: Urine Color Yellow, Urine Clarity Clear, Urine pH 5.0, Ur Specific Wheeler 1.025, Urine Protein 100 H, Urine Glucose (UA) Normal, Urine Ketones Negative, Urine Occult Blood 25 H, Urine Nitrite Negative, Urine Bilirubin Negative, Urine Urobilinogen Normal, Ur Leukocyte Esterase Negative, Urine RBC 0-5 SEEN, Urine WBC 0-5 SEEN, Ur Squamous Epith Cells 0-5 SEEN, Urine Bacteria 0 SEEN, Urine Mucus 2+ 12/17/19 04:15: WBC 4.5, RBC 4.07 L, Hgb 12.9, Hct 40.1, MCV 98.5, MCH 31.7, MCHC 32.2, RDW Std Deviation 45.7 H, RDW Coeff of Kristie 12.6, Plt Count 198, MPV 10.6, Immature Gran % (Auto) 0.200, Neut % (Auto) 80.3 H, Lymph % (Auto) 13.3 L, [place] % (Auto) 6.0, Eos % (Auto) 0.0, Baso % (Auto) 0.2, Absolute Neuts (auto) 3.6, Absolute Lymphs (auto) 0.60 L, Nucleated RBC % 0, Differential Comment SCANNED 12/17/19 04:15: Sodium 141, Potassium 3.6, Chloride 109 H, Carbon Dioxide 27.0, Anion Gap 5, BUN 14, Creatinine 0.69, Estim Creat Clear Calc 53.56, Est GFR (MDRD) Af Amer 109, Est GFR (MDRD) Non-Af 90, BUN/Creatinine Ratio 20.4 H, Glucose 218 H, Calcium 7.5 L 12/17/19 08:30: C-React Prot Ext Range 33.80 H 12/17/19 08:30: Blood Type O POSITIVE, Antibody Screen NEGATIVE 12/17/19 11:30: Procalcitonin 0.24 H Current Medications Acetaminophen (Acetaminophen 325 Mg Tablet) 650 mg PO Q6H PRN PRN PRN Reason: Pain Score 1-10/Temp > 100.7 F Last Admin: 12/17/19 14:40 Dose: 650 mg Documented by: Albuterol Sulfate (Albuterol 2.5 Mg/3 Ml Vial.Neb.) 2.5 mg INHALATION Q2H PRN PRN PRN Reason: SHORTNESS OF BREATH Amlodipine Besylate (Amlodipine 10 Mg Tablet) 10 mg PO DAILY [facility] Last Admin: 12/17/19 09:16 Dose: 10 mg Documented by: Aspirin (Aspirin E.C. 81 Mg Tablet) 81 mg PO DAILY [facility] Last Admin: 12/17/19 09:16 Dose: 81 mg Documented by: Citalopram Hydrobromide (Citalopram 20 Mg Tablet) 20 mg PO DAILY [facility] Last Admin: 12/17/19 09:16 Dose: 20 mg Documented by: Dexamethasone (Dexamethasone 4 Mg Tablet) 6 mg PO DAILY@0800 [facility] Stop: 12/26/19 08:01 Enoxaparin Sodium (Enoxaparin 120 Mg/0.8 Ml Syringe) 110 mg SC Q12 [facility] Furosemide (Furosemide 80 Mg Tablet) 80 mg PO DAILY [facility] Last Admin: 12/17/19 09:17 Dose: 80 mg Documented by: Guaifenesin (Guaifenesin 600 Mg Tablet) 600 mg PO BID [facility] Last Admin: 12/17/19 09:15 Dose: 600 mg Documented by: Hydrochlorothiazide (Hydrochlorothiazide 12.5mg) 12.5 mg PO DAILY [facility] Last Admin: 12/17/19 09:16 Dose: 12.5 mg Documented by: Sodium Chloride () 250 mls @ 15 mls/hr IV .[id number] PRN PRN Reason: Saline Flush Sodium Chloride () 250 mls @ 15 mls/hr IV .[id number] PRN PRN Reason: Additional IVPB Infusion Remdesivir (Investigational) (100 mg/ Sodium Chloride) 250 mls @ 125 mls/hr IV DAILY [facility]ARY; Protocol Stop: 12/21/19 11:59 Remdesivir (Investigational) (200 mg/ Sodium Chloride) 250 mls @ 125 mls/hr IV X1 ONE; Protocol Stop: 12/17/19 18:59 Losartan Potassium (Losartan Potassium 100 Mg Tablet) 100 mg PO DAILY [facility] Last Admin: 12/17/19 09:16 Dose: 100 mg Documented by: Ondansetron HCl (Ondansetron 4 Mg/2 Ml Vial) 4 mg IV Q8H PRN PRN PRN Reason: NAUSEA/VOMITING Potassium Chloride (Potassium Chloride 20 Meq Tablet) 20 meq PO DAILY [facility] Last Admin: 12/17/19 09:16 Dose: 20 meq Documented by: Pravastatin Sodium (Pravastatin 40 Mg Tablet) 40 mg PO QHS [facility] Sodium Chloride (0.9% Saline Lock 10 Ml Syringe) 10 - 40 ml IV UD PRN PRN Reason: SALINE FLUSH Last Admin: 12/17/19 09:20 Dose: 10 ml Documented by: Tolterodine Tartrate (Tolterodine Tartrate 2 Mg Cap.Sa) 2 mg PO DAILY [facility] Last Admin: 12/17/19 09:16 Dose: 2 mg Documented by: STROKE Vital Signs/Narrative: Vital Signs Temp Pulse Resp BP Pulse Ox 12/17/19 16:00 70 15 122/84 H 92 12/17/19 15:50 73 12/17/19 15:00 81 16 127/79 H 93 12/17/19 14:00 98.5 F 98 25 H 106/68 93 Medical Necessity - Tobacco Use Smoking Status: Never smoker Assessment/Plan All Active Problems (Last Reviewed 12/16/19 @ 23:[address] Gilberto Rockwell, DO) Bimalleolar fracture of right ankle (Resolved) Syndesmotic disruption of right ankle (Resolved) Dislocation of right ankle joint (Resolved) Acute respiratory failure with hypoxia (Acute) Suspected COVID-19 virus infection (Acute) COVID-19 (Acute) Sebaceous cyst (Resolved) Edema (Resolved) Acute Hypoxic Respiratory Failure 2/ COVID 19 -on decadron and Lovenox full dose -will have pulm drive anticoagulation -d/c abx per ID -convalescent plasma started -Remdesivir initiated today 12/16 -was on HFNC but has been weaned to 2-3 L nasal cannula now -ID and Pulm/CCM following Hypokalemia -resolved Hyperglycemia -suspected steroid induced -start SSI HTN -continue Amlodipine/Lasix 40 mg BID/Losartan -d/c HCTZ since on lasix L LE DVT -pt states that she was on Xarelto on admission -this is not on her MAR -DVT was provoked at that time and it had completed 6 mos so treatment completed -will continue OAC for now with COVID-19 Recent R Bimalleolar fx -resolved PAH -diuresis HPL -continue statin Depression -Celexa Urinary incontinence -continue oxybutynin Obesity -recommend wgt loss DVT Prophylaxis -full dose Lovenox Inpatient E&M: 01766 Subs Hosp L2
[2019-12-17] MEDS: Insulin Lispro 100 UNIT/ML INSULN.PEN SC (21:09)
[2019-12-17] MEDS: Pravastatin 40 MG Tablet PO (21:09)
[2019-12-17 23:51] LABS: Bedside Glucose 242 mg/dL (70-110)
[2019-12-18] VITALS (32 sets, daily range): BP systolic 94–158; BP diastolic 51–100; PULSE 53–94; RESP 13–33; TEMP 36.6–38.2; O2SAT 2–99
[2019-12-18 04:12] LABS: Hematocrit 42.2 % (37-47); Hemoglobin 13.8 g/dL (12.0-15.0); Mean Corp Hgb Conc 32.7 g/dL (32-36); Mean Corpuscular Hgb 31.7 pg (27.0-32.0); Mean Corpuscular Volume 96.8 fL (81-99); Mean Platelet Vol. 10.5 fl (6.2-12.0); Platelet Count 245 K/mm3 (150-450); RBC Distribution Width CV 12.3 % (11.6-14.6); RBC Distribution Width SD 43.8 fl (35.1-43.9); Red Blood Count 4.36 M/mm3 (4.2-5.4); White Blood Count 7.4 K/mm3 (4.4-11.0)
[2019-12-18 04:26] LABS: ALB/GLOB Ratio 0.9 RATIO (0.9-2.4); AST(SGOT) 17 U/L (15-37); Alanine Aminotransfer ALT/SGPT 30 U/L (13-56); Albumin, Serum 3.3 g/dL (3.2-5.0); Alkaline Phosphatase 49 U/L (45-117); Anion Gap 6 (5-15); BUN 17 mg/dL (7-18); Calcium,Total 8.2 mg/dL (8.5-10.1); Chloride 107 mmol/L (98-107); Creatinine, Serum 0.63 mg/dL (0.55-1.02); EST Glomerular Filtration Rate 99 mL/min (>60); Est Glom Filt Rate - Afr Amer 120 mL/min (>60); Estimated Creatinine Clearance 53.56 ml/min; Globulin 3.6 g/dL (2.2-4.2); Glucose 115 mg/dL (74-106); Potassium 3.4 mmol/L (3.5-5.1); Protein, Total 6.9 g/dL (6.4-8.2); Sodium Level 140 mmol/L (136-145)
--- NOTE | 2019-12-18 07:52 | PN_ITS ---
Patient Problems: Active and Suspected Problems (Last Reviewed 12/16/19 @ 23:[address] Gilberto Rockwell, DO) Acute respiratory failure with hypoxia (Acute) Suspected COVID-19 virus infection (Acute) COVID-19 (Acute) Subjective: Patient did okay overnight. Patient has had headache leading to decreased sleep overnight. Patient also had some numbness of the right upper extremity that responded to repositioning. Patient was compliant with CPAP overnight and is still requiring 2 L nasal cannula to maintain saturations. No GI symptoms have been reported. Patient continues to report anosmia, but does have taste. - Physical Exam Vitals/I&O's: Vital Signs Temp Pulse Resp BP Pulse Ox 36.8 C 87 30 H 144/74 H 92 12/18/19 04:00 12/18/19 07:40 12/18/19 07:00 12/18/19 07:00 12/18/19 07:00 Oxygen Flow Rate (L/min) 2 Oxygen Delivery Method Nasal Cannula Weight: 106.5 kg Body Mass Index (BMI) 36.2 Intake and Output for Last 24 Hours 12/16/19 12/17/19 12/18/19 23:59 23:59 23:59 Intake Total 2105 / 2105 210 / 210 Output Total 2225 / 2225 100 / 100 Balance -120 / -120 110 / 110 General: Alert, Oriented x3, Cooperative, No apparent distress, - - Obese. Scleral injection noted. HEENT: Atraumatic, PERRLA, EOMI, Normocephalic Oral: Moist Mucosa, No Gingival or Mucosal Lesions/ Ulcerations, - - Crowded posterior pharynx Neck: Supple, No JVD, No Nodes, Trachea Midline Lungs: No rhonchi, No rales, Diminished, Wheezes Cardiovascular: Regular rate, Regular Rhythm, Normal S1, Normal S2, No murmurs, No rub noted, No Gallop Abdomen: Bowel Sounds Present, Soft, Non Tender, Non-Distended, Obese Extremities: No clubbing, No cyanosis, Edema - Trace lower extremity Skin: - - No change compared to previous Musculoskeletal: No Tenderness to Palpation of Joints or Extremities Lymphatic: No Cervical, Supraclavicular, or Inguinal Adenopathy Neurological: Cranial nerves II-XII grossly intact, Neuro grossly intact, Motor Exam 5/5 strength throughout Psych/Mental Status: Alert and oriented to time, place, person, mood and affect Microbiology Past 72 Hours 12/16/19 22:30 Urine Catheter - Catheter Legionella Antigen - Final 12/16/19 22:30 Urine Catheter - Catheter Streptococcus pneumoniae Antigen (M - Final 12/16/19 21:35 Mucosa - Nose Influenza Types A,B Direct FA (KAMLESH) - Final Laboratory Results 12/17/19 08:30: C-React Prot Ext Range 33.80 H 12/17/19 08:30: Blood Type O POSITIVE, Antibody Screen NEGATIVE 12/17/19 11:30: Procalcitonin 0.24 H 12/17/19 21:07: POC Glucose 242 H 12/18/19 04:05: WBC 7.4, RBC 4.36, Hgb 13.8, Hct 42.2, MCV 96.8, MCH 31.7, MCHC 32.7, RDW Std Deviation 43.8, RDW Coeff of Kristie 12.3, Plt Count 245, MPV 10.5 12/18/19 04:05: Sodium 140, Potassium 3.4 L, Chloride 107, Carbon Dioxide 27.0, Anion Gap 6, BUN 17, Creatinine 0.63, Estim Creat Clear Calc 53.56, Est GFR (MDRD) Af Amer 120, Est GFR (MDRD) Non-Af 99, BUN/Creatinine Ratio 27.0 H, Glucose 115 H, Calcium 8.2 L, Total Bilirubin 0.30, AST 17, ALT 30, Alkaline Phosphatase 49, Total Protein 6.9, Albumin 3.3, Globulin 3.6, Albumin/Globulin Ratio 0.9 Current Medications Acetaminophen (Acetaminophen 325 Mg Tablet) 650 mg PO Q6H PRN PRN PRN Reason: Pain Score 1-10/Temp > 100.7 F Last Admin: 12/17/19 14:40 Dose: 650 mg Documented by: Albuterol Sulfate (Albuterol 2.5 Mg/3 Ml Vial.Neb.) 2.5 mg INHALATION Q2H PRN PRN PRN Reason: SHORTNESS OF BREATH Amlodipine Besylate (Amlodipine 10 Mg Tablet) 10 mg PO DAILY [facility] Last Admin: 12/17/19 09:16 Dose: 10 mg Documented by: Aspirin (Aspirin E.C. 81 Mg Tablet) 81 mg PO DAILY [facility] Last Admin: 12/17/19 09:16 Dose: 81 mg Documented by: Citalopram Hydrobromide (Citalopram 20 Mg Tablet) 20 mg PO DAILY [facility] Last Admin: 12/17/19 09:16 Dose: 20 mg Documented by: Dexamethasone (Dexamethasone 4 Mg Tablet) 6 mg PO DAILY@0800 [facility] Stop: 12/26/19 08:01 Dextrose (Dextrose 50%-Water 25 Gm/50 Ml Disp.Syrin) 0 gm IV X1 PRN; Protocol PRN Reason: Hypoglycemia Enoxaparin Sodium (Enoxaparin 120 Mg/0.8 Ml Syringe) 110 mg SC Q12 [facility] Last Admin: 12/17/19 21:09 Dose: 110 mg Documented by: Furosemide (Furosemide 80 Mg Tablet) 80 mg PO DAILY [facility] Last Admin: 12/17/19 09:17 Dose: 80 mg Documented by: Glucagon (Glucagon 1 Mg/Ml Syringe) 1 mg IM .X1 PRN PRN Reason: Hypoglycemia Guaifenesin (Guaifenesin 600 Mg Tablet) 600 mg PO BID [facility] Last Admin: 12/17/19 21:09 Dose: 600 mg Documented by: Sodium Chloride () 250 mls @ 15 mls/hr IV .[id number] PRN PRN Reason: Saline Flush Sodium Chloride () 250 mls @ 15 mls/hr IV .[id number] PRN PRN Reason: Additional IVPB Infusion Remdesivir (Investigational) (100 mg/ Sodium Chloride) 250 mls @ 125 mls/hr IV DAILY [facility]; Protocol Stop: 12/21/19 11:59 Insulin Human Lispro (Insulin Lispro 100 Unit/Ml Insuln.Pen) 0 unit SC ACHS [facility]; Protocol Last Admin: 12/17/19 21:09 Dose: 2 units Documented by: Losartan Potassium (Losartan Potassium 100 Mg Tablet) 100 mg PO DAILY [facility] Last Admin: 12/17/19 09:16 Dose: 100 mg Documented by: Melatonin (Melatonin 3 Mg Tablet) 3 mg PO QHS PRN PRN Reason: INSOMNIA Ondansetron HCl (Ondansetron 4 Mg/2 Ml Vial) 4 mg IV Q8H PRN PRN PRN Reason: NAUSEA/VOMITING Potassium Chloride (Potassium Chloride 20 Meq Tablet) 20 meq PO DAILY [facility] Last Admin: 12/17/19 09:16 Dose: 20 meq Documented by: Pravastatin Sodium (Pravastatin 40 Mg Tablet) 40 mg PO QHS [facility] Last Admin: 12/17/19 21:09 Dose: 40 mg Documented by: Sodium Chloride (0.9% Saline Lock 10 Ml Syringe) 10 - 40 ml IV UD PRN PRN Reason: SALINE FLUSH Last Admin: 12/17/19 09:20 Dose: 10 ml Documented by: Tolterodine Tartrate (Tolterodine Tartrate 2 Mg Cap.Sa) 2 mg PO DAILY [facility] Last Admin: 12/17/19 09:16 Dose: 2 mg Documented by: Medical Necessity - Tobacco Use Smoking Status: Never smoker Assessment/Plan All Active Problems (Last Reviewed 12/16/19 @ 23:[address] Gilberto Rockwell, DO) Bimalleolar fracture of right ankle (Resolved) Syndesmotic disruption of right ankle (Resolved) Dislocation of right ankle joint (Resolved) Acute respiratory failure with hypoxia (Acute) Suspected COVID-19 virus infection (Acute) COVID-19 (Acute) Sebaceous cyst (Resolved) Edema (Resolved) RECOMMENDATIONS: 1. Okay to use Tylenol for headache, melatonin for sleep 2. Await convalescent serum 3. Continue antiretroviral therapy, Decadron and anticoagulation 4. Potentially transition to Eliquis in the next 24 hours 5. Initiate CPAP at home settings with sleep 6. Wean oxygen as tolerated IMPRESSIONS: 1. Acute hypoxic respiratory failure secondary to COVID-19 Patient with bilateral infiltrates and significant increase in AA gradient. Patient does not appear to be fluid overloaded at this time. Given significant hypoxia, day 7 of symptoms and verified COVID-19, will transfuse convalescent serum when available. Patient is on anticoagulation and Decadron. Patient has been initiated on antiretroviral therapy. Wean oxygen as tolerated. We will continue with empiric antibiotics for now. Defer antibiotics to infectious disease. Procalcitonin was less than 0.5 2. Hypokalemia/hypertension/obesity/pulmonary hypertension Complicates care, management, recovery and prognosis. Patient did receive potassium supplementation. Patient has had elevated pulmonary artery pressures in the past and a pattern consistent with type II pulmonary hypertension. Will monitor fluid status closely. Patient may require diuretic therapy intermittently. Okay to continue with baseline hypertensive medications at this time.
--- NOTE | 2019-12-18 09:40 | CM.UR ---
NEHEMIAH DICKSON NOTE: Participated in ICU interdisciplinary rounds. Pt in COVID-19 isolation precautions. Pt on 2L/M O2 at this time. Current treatment: Remdesiver , started 12/16, Decadron, therapeutic Lovenox, and Convalescent plasma pending (has been ordered but has not arrived yet). PT/OT evals pending. Call placed to [facility] and spoke with Odette. She states pt's current O2 orders are: CPAP (Pressure setting is 9) @ HS w/O2 bleed-in @ 1 L/M. Has concentrator and portable back-up tank. NEHEMIAH DICKSON to continue to follow and assist w/discharge planning. Allan LARKINN NEHEMIAH DICKSON
[2019-12-18] MEDS: dexAMETHasone 4 MG Tablet 6 MG PO (10:04)
[2019-12-18] MEDS: Aspirin E.C. 81 MG Tablet PO (10:06)
[2019-12-18] MEDS: amLODIPine 10 MG Tablet PO (10:06)
[2019-12-18] MEDS: guaiFENesin 600 MG Tablet PO ×2 (10:06→20:30)
[2019-12-18] MEDS: Tolterodine Tartrate 2 MG CAP.SA PO (10:06)
[2019-12-18] MEDS: Acetaminophen 325 MG Tablet 650 MG PO ×2 (10:07→20:30)
[2019-12-18] MEDS: Losartan Potassium 100 MG Tablet PO (10:07)
[2019-12-18] MEDS: Citalopram 20 MG Tablet PO (10:07)
[2019-12-18] MEDS: Furosemide 80 MG Tablet PO (10:07)
--- NOTE | 2019-12-18 11:10 | PCM.PN.ID ---
Patient Problems: Active and Suspected Problems (Last Reviewed 12/16/19 @ 23:[address] Gilberto Rockwell, DO) Acute respiratory failure with hypoxia (Acute) Suspected COVID-19 virus infection (Acute) COVID-19 (Acute) Subjective: Feeling worse today, no fever, but increased fatigue and O2 sats are down. No n/v/d. Some taste changes - Physical Exam Vitals/I&O's: Vital Signs Temp Pulse Resp BP Pulse Ox 98.5 F 84 33 H 143/64 H 92 12/18/19 08:00 12/18/19 10:00 12/18/19 10:00 12/18/19 10:00 12/18/19 10:00 Oxygen Flow Rate (L/min) 2 Oxygen Delivery Method Nasal Cannula Weight: 106.5 kg Body Mass Index (BMI) 36.2 Intake and Output for Last 24 Hours 12/16/19 12/17/19 12/18/19 23:59 23:59 23:59 Intake Total 2105 / 2105 210 / 210 Output Total 2225 / 2225 100 / 100 Balance -120 / -120 110 / 110 General: Cooperative, No apparent distress Lungs: Diminished Cardiovascular: Regular rate, Regular Rhythm Abdomen: Soft, Non Tender, Non-Distended Skin: No rashes Microbiology Past 72 Hours 12/16/19 22:30 Urine, Clean Catch Urine Culture - Preliminary Culture exhibits no growth. 12/16/19 22:30 Urine Catheter - Catheter Legionella Antigen - Final 12/16/19 22:30 Urine Catheter - Catheter Streptococcus pneumoniae Antigen (M - Final 12/16/19 21:35 Mucosa - Nose Influenza Types A,B Direct FA (KAMLESH) - Final Laboratory Results 12/17/19 11:30: Procalcitonin 0.24 H 12/17/19 21:07: POC Glucose 242 H 12/18/19 04:05: WBC 7.4, RBC 4.36, Hgb 13.8, Hct 42.2, MCV 96.8, MCH 31.7, MCHC 32.7, RDW Std Deviation 43.8, RDW Coeff of Kristie 12.3, Plt Count 245, MPV 10.5 12/18/19 04:05: Sodium 140, Potassium 3.4 L, Chloride 107, Carbon Dioxide 27.0, Anion Gap 6, BUN 17, Creatinine 0.63, Estim Creat Clear Calc 53.56, Est GFR (MDRD) Af Amer 120, Est GFR (MDRD) Non-Af 99, BUN/Creatinine Ratio 27.0 H, Glucose 115 H, Calcium 8.2 L, Total Bilirubin 0.30, AST 17, ALT 30, Alkaline Phosphatase 49, Total Protein 6.9, Albumin 3.3, Globulin 3.6, Albumin/Globulin Ratio 0.9 Current Medications Acetaminophen (Acetaminophen 325 Mg Tablet) 650 mg PO Q6H PRN PRN PRN Reason: Pain Score 1-10/Temp > 100.7 F Last Admin: 12/18/19 10:07 Dose: 650 mg Documented by: Albuterol Sulfate (Albuterol 2.5 Mg/3 Ml Vial.Neb.) 2.5 mg INHALATION Q2H PRN PRN PRN Reason: SHORTNESS OF BREATH Amlodipine Besylate (Amlodipine 10 Mg Tablet) 10 mg PO DAILY [facility] Last Admin: 12/18/19 10:06 Dose: 10 mg Documented by: Aspirin (Aspirin E.C. 81 Mg Tablet) 81 mg PO DAILY [facility] Last Admin: 12/18/19 10:06 Dose: 81 mg Documented by: Citalopram Hydrobromide (Citalopram 20 Mg Tablet) 20 mg PO DAILY [facility] Last Admin: 12/18/19 10:07 Dose: 20 mg Documented by: Dexamethasone (Dexamethasone 4 Mg Tablet) 6 mg PO DAILY@0800 [facility] Stop: 12/26/19 08:01 Last Admin: 12/18/19 10:04 Dose: 6 mg Documented by: Dextrose (Dextrose 50%-Water 25 Gm/50 Ml Disp.Syrin) 0 gm IV X1 PRN; Protocol PRN Reason: Hypoglycemia Enoxaparin Sodium (Enoxaparin 120 Mg/0.8 Ml Syringe) 110 mg SC Q12 [facility] Last Admin: 12/17/19 21:09 Dose: 110 mg Documented by: Furosemide (Furosemide 80 Mg Tablet) 80 mg PO DAILY [facility] Last Admin: 12/18/19 10:07 Dose: 80 mg Documented by: Glucagon (Glucagon 1 Mg/Ml Syringe) 1 mg IM .X1 PRN PRN Reason: Hypoglycemia Guaifenesin (Guaifenesin 600 Mg Tablet) 600 mg PO BID [facility] Last Admin: 12/18/19 10:06 Dose: 600 mg Documented by: Sodium Chloride () 250 mls @ 15 mls/hr IV .[id number] PRN PRN Reason: Saline Flush Sodium Chloride () 250 mls @ 15 mls/hr IV .[id number] PRN PRN Reason: Additional IVPB Infusion Remdesivir (Investigational) (100 mg/ Sodium Chloride) 250 mls @ 125 mls/hr IV DAILY [facility]; Protocol Stop: 12/21/19 11:59 Last Admin: 12/18/19 10:08 Dose: 125 mls/hr Documented by: Insulin Human Lispro (Insulin Lispro 100 Unit/Ml Insuln.Pen) 0 unit SC ACHS [facility]; Protocol Last Admin: 12/18/19 08:47 Dose: Not Given Documented by: Losartan Potassium (Losartan Potassium 100 Mg Tablet) 100 mg PO DAILY [facility] Last Admin: 12/18/19 10:07 Dose: 100 mg Documented by: Melatonin (Melatonin 3 Mg Tablet) 3 mg PO QHS PRN PRN Reason: INSOMNIA Ondansetron HCl (Ondansetron 4 Mg/2 Ml Vial) 4 mg IV Q8H PRN PRN PRN Reason: NAUSEA/VOMITING Potassium Chloride (Potassium Chloride 20 Meq Tablet) 20 meq PO DAILY [facility] Last Admin: 12/18/19 10:06 Dose: 20 meq Documented by: Pravastatin Sodium (Pravastatin 40 Mg Tablet) 40 mg PO QHS [facility] Last Admin: 12/17/19 21:09 Dose: 40 mg Documented by: Senna/Docusate Sodium (Senna/Docusate Sodium 1 Tablet) 2 tablet PO BID PRN PRN PRN Reason: Constipation Sodium Chloride (0.9% Saline Lock 10 Ml Syringe) 10 - 40 ml IV UD PRN PRN Reason: SALINE FLUSH Last Admin: 12/17/19 09:20 Dose: 10 ml Documented by: Tolterodine Tartrate (Tolterodine Tartrate 2 Mg Cap.Sa) 2 mg PO DAILY [facility] Last Admin: 12/18/19 10:06 Dose: 2 mg Documented by: Medical Necessity - Tobacco Use Smoking Status: Never smoker Route of nutrition/ use of supplements: [] Nutritional Intake: [] IV Site: [] Lara Catheter: [] - Assessment/Plan Antibiotics: [] Assessment/Plan: [] Active and Suspected Problems (Last Reviewed 12/16/19 @ 23:[address] Gilberto Rockwell, DO) Acute respiratory failure with hypoxia (Acute) Suspected COVID-19 virus infection (Acute) covid with acute hypoxic resp failure - on dex and therapeutic lovenox. Minimally elevated d-dimer. H/o DVT. Cont remdesivir, plasma pending. Will follow, d/w nursing
[2019-12-18] MEDS: Enoxaparin 120 MG/0.8 ML Syringe 110 MG SC ×2 (11:33→20:29)
[2019-12-18] MEDS: Ondansetron 4 MG/2 ML Vial IV (11:46)
[2019-12-18 11:50] LABS: Bedside Glucose 120 mg/dL (70-110)
--- NOTE | 2019-12-18 13:36 | CHAPLAIN ---
Type of Pastoral Visit ___ Initial Visit ___ Follow-up Visit ___ On-call Visit ___ General Patient Visit ___ Spiritual Assessment ___ Family Conference ___ Bereavement ___ Rapid Response ___ Code Blue _x__ Other (describe below) Pastoral Care Referral From _x__ Patient ___ Family ___ Nurse ___ Physician ___ [employer] Solution Architect ___ Fruit Loader ___ Other (describe below) Sacrament/Intervention ___ Active listening ___ Anointing ___ Moravian ___ Bereavement ___ Communion ___ Cindy exploration ___ ___ Life review ___ Prayer ___ Reconciliation ___ Sacrament of Sick ___ Supportive presence ___ Wedding ___ Other (describe below) Pastoral Comments due to [employer] restrictions this dietetic assistant in unable to visit patient; however phone attempts made to contact patient have failed for three times over and
--- NOTE | 2019-12-18 15:32 | PCM.PN.HOSP ---
Patient Problems: Active and Suspected Problems (Last Reviewed 12/16/19 @ 23:[address] Gilberto Rockwell, DO) Acute respiratory failure with hypoxia (Acute) Suspected COVID-19 virus infection (Acute) COVID-19 (Acute) Subjective: Had a brief episode of confusion and hypoxia today when she removed her O2. Did not sleep well last pm either. Feeling better now and overall feels better than when she mahesh admitted. Still with low grade temps. Vitals/I&O's: Vital Signs Temp Pulse Resp BP Pulse Ox 100.8 F H 91 28 H 131/61 H 94 12/18/19 12:00 12/18/19 12:00 12/18/19 12:00 12/18/19 12:00 12/18/19 12:00 Oxygen Flow Rate (L/min) 2 Oxygen Delivery Method Nasal Cannula Weight: 106.5 kg Body Mass Index (BMI) 36.2 Intake and Output for Last 24 Hours 12/16/19 12/17/19 12/18/19 23:59 23:59 23:59 Intake Total 2105 / 2105 900 / 900 Output Total 2225 / 2225 950 / 950 Balance -120 / -120 -50 / -50 General: Alert, Oriented x3, Cooperative, No apparent distress, Well developed, Well nourished, - - obese WF, lying in bed sleeping but awakens easily. appears comfortable Oral: Moist Mucosa, No Gingival or Mucosal Lesions/ Ulcerations, - - no thrush Lungs: Clear to auscultation, No rhonchi, No wheeze, No rales, Diminished - bases Cardiovascular: Regular rate, Regular Rhythm, Normal S1, Normal S2, No murmurs, No Ectopic Activity, No rub noted, No Gallop Abdomen: Bowel Sounds Present, Soft, Non Tender, Non-Distended, Obese, No hernias noted Extremities: No clubbing, No cyanosis, No edema, Capillary Refill Less than 3 Seconds, Peripheral Pulses Normal Neurological: Neuro grossly intact Psych/Mental Status: Normal Affect, Appropriate, Alert and oriented to time, place, person, mood and affect Microbiology Past 72 Hours 12/16/19 22:30 Urine, Clean Catch Urine Culture - Preliminary Culture exhibits no growth. 12/16/19 22:30 Urine Catheter - Catheter Legionella Antigen - Final 12/16/19 22:30 Urine Catheter - Catheter Streptococcus pneumoniae Antigen (M - Final 12/16/19 21:35 Mucosa - Nose Influenza Types A,B Direct FA ([facility]LES[facility]) - Final Laboratory Results 12/17/19 21:07: POC Glucose 242 H 12/18/19 04:05: WBC 7.4, RBC 4.36, Hgb 13.8, Hct 42.2, MCV 96.8, MCH 31.7, MCHC 32.7, RDW Std Deviation 43.8, RDW Coeff of Kristie 12.3, Plt Count 245, MPV 10.5 12/18/19 04:05: Sodium 140, Potassium 3.4 L, Chloride 107, Carbon Dioxide 27.0, Anion Gap 6, BUN 17, Creatinine 0.63, Estim Creat Clear Calc 53.56, Est GFR (MDRD) Af Amer 120, Est GFR (MDRD) Non-Af 99, BUN/Creatinine Ratio 27.0 H, Glucose 115 H, Calcium 8.2 L, Total Bilirubin 0.30, AST 17, ALT 30, Alkaline Phosphatase 49, Total Protein 6.9, Albumin 3.3, Globulin 3.6, Albumin/Globulin Ratio 0.9 12/18/19 11:44: POC Glucose 120 H Current Medications Acetaminophen (Acetaminophen 325 Mg Tablet) 650 mg PO Q6H PRN PRN PRN Reason: Pain Score 1-10/Temp > 100.7 F Last Admin: 12/18/19 10:07 Dose: 650 mg Documented by: Albuterol Sulfate (Albuterol 2.5 Mg/3 Ml Vial.Neb.) 2.5 mg INHALATION Q2H PRN PRN PRN Reason: SHORTNESS OF BREATH Amlodipine Besylate (Amlodipine 10 Mg Tablet) 10 mg PO DAILY [facility] Last Admin: 12/18/19 10:06 Dose: 10 mg Documented by: Aspirin (Aspirin E.C. 81 Mg Tablet) 81 mg PO DAILY [facility] Last Admin: 12/18/19 10:06 Dose: 81 mg Documented by: Citalopram Hydrobromide (Citalopram 20 Mg Tablet) 20 mg PO DAILY [facility] Last Admin: 12/18/19 10:07 Dose: 20 mg Documented by: Dexamethasone (Dexamethasone 4 Mg Tablet) 6 mg PO DAILY@0800 [facility] Stop: 12/26/19 08:01 Last Admin: 12/18/19 10:04 Dose: 6 mg Documented by: Dextrose (Dextrose 50%-Water 25 Gm/50 Ml Disp.Syrin) 0 gm IV X1 PRN; Protocol PRN Reason: Hypoglycemia Enoxaparin Sodium (Enoxaparin 120 Mg/0.8 Ml Syringe) 110 mg SC Q12 [facility] Last Admin: 12/18/19 11:33 Dose: 110 mg Documented by: Furosemide (Furosemide 80 Mg Tablet) 80 mg PO DAILY [facility] Last Admin: 12/18/19 10:07 Dose: 80 mg Documented by: Glucagon (Glucagon 1 Mg/Ml Syringe) 1 mg IM .X1 PRN PRN Reason: Hypoglycemia Guaifenesin (Guaifenesin 600 Mg Tablet) 600 mg PO BID [facility] Last Admin: 12/18/19 10:06 Dose: 600 mg Documented by: Sodium Chloride () 250 mls @ 15 mls/hr IV .[id number] PRN PRN Reason: Saline Flush Sodium Chloride () 250 mls @ 15 mls/hr IV .[id number] PRN PRN Reason: Additional IVPB Infusion Remdesivir (Investigational) (100 mg/ Sodium Chloride) 250 mls @ 125 mls/hr IV DAILY [facility]; Protocol Stop: 12/21/19 11:59 Last Infusion: 12/18/19 12:48 Dose: Infused Documented by: Insulin Human Lispro (Insulin Lispro 100 Unit/Ml Insuln.Pen) 0 unit SC ACHS [facility]; Protocol Last Admin: 12/18/19 12:02 Dose: Not Given Documented by: Losartan Potassium (Losartan Potassium 100 Mg Tablet) 100 mg PO DAILY [facility] Last Admin: 12/18/19 10:07 Dose: 100 mg Documented by: Melatonin (Melatonin 3 Mg Tablet) 3 mg PO QHS PRN PRN Reason: INSOMNIA Ondansetron HCl (Ondansetron 4 Mg/2 Ml Vial) 4 mg IV Q8H PRN PRN PRN Reason: NAUSEA/VOMITING Last Admin: 12/18/19 11:46 Dose: 4 mg Documented by: Potassium Chloride (Potassium Chloride 20 Meq Tablet) 20 meq PO DAILY [facility] Last Admin: 12/18/19 10:06 Dose: 20 meq Documented by: Pravastatin Sodium (Pravastatin 40 Mg Tablet) 40 mg PO QHS [facility] Last Admin: 12/17/19 21:09 Dose: 40 mg Documented by: Senna/Docusate Sodium (Senna/Docusate Sodium 1 Tablet) 2 tablet PO BID PRN PRN PRN Reason: Constipation Sodium Chloride (0.9% Saline Lock 10 Ml Syringe) 10 - 40 ml IV UD PRN PRN Reason: SALINE FLUSH Last Admin: 12/17/19 09:20 Dose: 10 ml Documented by: Tolterodine Tartrate (Tolterodine Tartrate 2 Mg Cap.Sa) 2 mg PO DAILY [facility] Last Admin: 12/18/19 10:06 Dose: 2 mg Documented by: STROKE Vital Signs/Narrative: Vital Signs Temp Pulse Resp BP BP Pulse Ox 12/18/19 12:00 100.8 F H 91 14 131/61 H 131/61 H 94 Medical Necessity - Tobacco Use Smoking Status: Never smoker Assessment/Plan All Active Problems (Last Reviewed 12/16/19 @ 23:[address] Gilberto Rockwell, DO) Bimalleolar fracture of right ankle (Resolved) Syndesmotic disruption of right ankle (Resolved) Dislocation of right ankle joint (Resolved) Acute respiratory failure with hypoxia (Acute) Suspected COVID-19 virus infection (Acute) COVID-19 (Acute) Sebaceous cyst (Resolved) Edema (Resolved) Acute Hypoxic Respiratory Failure 04/06 COVID 19 -on decadron and Lovenox full dose -will have pulm drive anticoagulation -convalescent plasma -Remdesivir initiated 12/16 (04/09) -on 2 L nasal cannula with SpO2 90-96% -ID and Pulm/CCM following Hypokalemia -slightly low -recheck in am after replacement Hyperglycemia -suspected steroid induced -start SSI -BGT good HTN -continue Amlodipine/Lasix 40 mg BID/Losartan -d/c HCTZ since on lasix -BP controlled L LE DVT -pt states that she was on Xarelto on admission -this is not on her MAR -DVT was provoked at that time and it had completed 6 mos so treatment completed -will continue OAC for now with COVID-19 Recent R Bimalleolar fx -resolved PAH -diuresis HPL -continue statin Depression -Celexa Urinary incontinence -continue oxybutynin Obesity -recommend wgt loss DVT Prophylaxis -full dose Lovenox Inpatient E&M: 15909 Subs Hosp L2
[2019-12-18] MEDS: Insulin Lispro 100 UNIT/ML INSULN.PEN SC ×2 (16:50→20:35)
[2019-12-18 20:25] LABS: Bedside Glucose 190 mg/dL (70-110)
[2019-12-18] MEDS: MELATONIN 3 MG TABLET PO (20:30)
[2019-12-18] MEDS: Pravastatin 40 MG Tablet PO (20:30)
[2019-12-18 22:46] LABS: Bedside Glucose 173 mg/dL (70-110)
[2019-12-19] VITALS (28 sets, daily range): BP systolic 102–135; BP diastolic 56–94; PULSE 50–87; RESP 12–27; TEMP 36–36.6; O2SAT 92–100
[2019-12-19 04:19] LABS: Hematocrit 40.8 % (37-47); Hemoglobin 13.8 g/dL (12.0-15.0); Mean Corp Hgb Conc 33.8 g/dL (32-36); Mean Corpuscular Hgb 31.8 pg (27.0-32.0); Mean Platelet Vol. 10.3 fl (6.2-12.0); Platelet Count 249 K/mm3 (150-450); RBC Distribution Width CV 12.3 % (11.6-14.6); Red Blood Count 4.34 M/mm3 (4.2-5.4); White Blood Count 4.2 K/mm3 (4.4-11.0)
[2019-12-19 04:36] LABS: ALB/GLOB Ratio 0.8 RATIO (0.9-2.4); AST(SGOT) 15 U/L (15-37); Alanine Aminotransfer ALT/SGPT 28 U/L (13-56); Albumin, Serum 3.1 g/dL (3.2-5.0); Alkaline Phosphatase 45 U/L (45-117); Anion Gap 6 (5-15); BUN 25 mg/dL (7-18); BUN/Creat Ratio 40.6 RATIO (10-20); Calcium,Total 7.9 mg/dL (8.5-10.1); Chloride 105 mmol/L (98-107); Creatinine, Serum 0.62 mg/dL (0.55-1.02); EST Glomerular Filtration Rate 102 mL/min (>60); Est Glom Filt Rate - Afr Amer 123 mL/min (>60); Estimated Creatinine Clearance 53.56 ml/min; Globulin 3.7 g/dL (2.2-4.2); Glucose 144 mg/dL (74-106); Potassium 3.4 mmol/L (3.5-5.1); Protein, Total 6.8 g/dL (6.4-8.2); Sodium Level 139 mmol/L (136-145)
--- NOTE | 2019-12-19 07:19 | PN_ITS ---
Subjective: Patient did well overnight. No acute issues were reported and she was actually weaned to 1 L nasal cannula. Patient continues to wait on convalescent serum. At approximately 6 AM, patient had a paroxysmal coughing episode leading to desaturation and significant chest tightness. Patient has to be placed on BiPAP with good response. General: Alert, Oriented x3, Cooperative, No apparent distress - On BiPAP therapy HEENT: Atraumatic, PERRLA, EOMI, Normocephalic, - - No scleral icterus or inje ction noted Oral: Moist Mucosa, No Gingival or Mucosal Lesions/ Ulcerations Neck: Supple, No JVD, No Nodes, Trachea Midline Lungs: Diminished, Wheezes - Left greater than right Cardiovascular: Regular rate, Regular Rhythm, Normal S1, Normal S2, No murmurs, No rub noted, No Gallop Abdomen: Bowel Sounds Present, Soft, Non Tender, Non-Distended, Obese Extremities: No clubbing, No cyanosis, Edema - Trace Skin: No rashes, No breakdown Musculoskeletal: No Tenderness to Palpation of Joints or Extremities Lymphatic: No Cervical, Supraclavicular, or Inguinal Adenopathy Neurological: Cranial nerves II-XII grossly intact, Neuro grossly intact, Motor Exam 5/5 strength throughout Psych/Mental Status: Alert and oriented to time, place, person, mood and affect Vital Signs Temp Pulse Resp BP Pulse Ox 36.6 C 70 24 H 126/64 H 100 12/19/19 04:00 12/19/19 07:00 12/19/19 07:00 12/19/19 07:00 12/19/19 07:00 Oxygen Flow Rate (L/min) 1 Oxygen Delivery Method CPAP Weight: 105 kg Body Mass Index (BMI) 36.2 Intake and Output for Last 24 Hours 12/17/19 12/18/19 12/19/19 23:59 23:59 23:59 Intake Total 2105 / 2105 1210 / 1210 120 / 120 Output Total 2225 / 2225 1750 / 1750 0 / 0 Balance -120 / -120 -540 / -540 120 / 120 Labs (Last 48 Hours) 12/17/19 12/17/19 12/17/19 08:30 08:30 11:30 WBC RBC Hgb Hct MCV MCH MCHC RDW Std Deviation RDW Coeff of Kristie Plt Count MPV Sodium Potassium Chloride Carbon Dioxide Anion Gap BUN Creatinine Estim Creat Clear Calc Est GFR (MDRD) Af Amer Est GFR (MDRD) Non-Af BUN/Creatinine Ratio Glucose Calcium Total Bilirubin AST ALT Alkaline Phosphatase C-React Prot Ext Range 33.80 H Total Protein Albumin Globulin Albumin/Globulin Ratio Procalcitonin 0.24 H POC Glucose Blood Type O POSITIVE Antibody Screen NEGATIVE 12/17/19 12/18/19 12/18/19 21:07 04:05 04:05 WBC 7.4 RBC 4.36 Hgb 13.8 Hct 42.2 MCV 96.8 MCH 31.7 MCHC 32.7 RDW Std Deviation 43.8 RDW Coeff of Kristie 12.3 Plt Count 245 MPV 10.5 Sodium 140 Potassium 3.4 L Chloride 107 Carbon Dioxide 27.0 Anion Gap 6 BUN 17 Creatinine 0.63 Estim Creat Clear Calc 53.56 Est GFR (MDRD) Af Amer 120 Est GFR (MDRD) Non-Af 99 BUN/Creatinine Ratio 27.0 H Glucose 115 H Calcium 8.2 L Total Bilirubin 0.30 AST 17 ALT 30 Alkaline Phosphatase 49 C-React Prot Ext Range Total Protein 6.9 Albumin 3.3 Globulin 3.6 Albumin/Globulin Ratio 0.9 Procalcitonin POC Glucose 242 H Blood Type Antibody Screen 12/18/19 12/18/19 12/18/19 11:44 16:48 20:27 WBC RBC Hgb Hct MCV MCH MCHC RDW Std Deviation RDW Coeff of Kristie Plt Count MPV Sodium Potassium Chloride Carbon Dioxide Anion Gap BUN Creatinine Estim Creat Clear Calc Est GFR (MDRD) Af Amer Est GFR (MDRD) Non-Af BUN/Creatinine Ratio Glucose Calcium Total Bilirubin AST ALT Alkaline Phosphatase C-React Prot Ext Range Total Protein Albumin Globulin Albumin/Globulin Ratio Procalcitonin POC Glucose 120 H 190 H 173 H Blood Type Antibody Screen 12/19/19 12/19/19 04:05 04:05 WBC 4.2 L RBC 4.34 Hgb 13.8 Hct 40.8 MCV 94.0 MCH 31.8 MCHC 33.8 RDW Std Deviation 43.0 RDW Coeff of Kristie 12.3 Plt Count 249 MPV 10.3 Sodium 139 Potassium 3.4 L Chloride 105 Carbon Dioxide 28.0 Anion Gap 6 BUN 25 H Creatinine 0.62 Estim Creat Clear Calc 53.56 Est GFR (MDRD) Af Amer 123 Est GFR (MDRD) Non-Af 102 BUN/Creatinine Ratio 40.6 H Glucose 144 H Calcium 7.9 L Total Bilirubin 0.40 AST 15 ALT 28 Alkaline Phosphatase 45 C-React Prot Ext Range Total Protein 6.8 Albumin 3.1 L Globulin 3.7 Albumin/Globulin Ratio 0.8 L Procalcitonin POC Glucose Blood Type Antibody Screen Microbiology 12/16/19 22:30 Urine, Clean Catch Urine Culture - Preliminary Culture exhibits no growth. Medical Necessity - Tobacco Use Smoking Status: Never smoker Assessment/Plan All Active Problems (Last Reviewed 12/16/19 @ 23:[address] Gilberto Rockwell, DO) Bimalleolar fracture of right ankle (Resolved) Syndesmotic disruption of right ankle (Resolved) Dislocation of right ankle joint (Resolved) Acute respiratory failure with hypoxia (Acute) Suspected COVID-19 virus infection (Acute) COVID-19 (Acute) Sebaceous cyst (Resolved) Edema (Resolved) RECOMMENDATIONS: 1. Okay to use Tylenol for headache, melatonin for sleep 2. Await convalescent serum 3. Continue antiretroviral therapy, Decadron and anticoagulation 4. We will transition Eliquis therapy. 5. Initiate CPAP at home settings with sleep 6. Wean oxygen as tolerated 7. Okay to change to PCU status IMPRESSIONS: 1. Acute hypoxic respiratory failure secondary to COVID-19 Patient with bilateral infiltrates and significant increase in AA gradient. Patient does not appear to be fluid overloaded at this time. Given significant hypoxia, day 7 of symptoms on presentation and verified COVID-19, will transfuse convalescent serum when available. Patient is on anticoagulation and Decadron. Will transition from Lovenox to Eliquis to limit potential complication of abdominal hematoma. Patient has been initiated on antiretroviral therapy. Wean oxygen as tolerated. We will continue with empiric antibiotics for now. Defer antibiotics to infectious disease. Procalcitonin was less than 0.5 2. Hypokalemia/hypertension/obesity/pulmonary hypertension Complicates care, management, recovery and prognosis. Patient did receive potassium supplementation. Patient has had elevated pulmonary artery pressures in the past and a pattern consistent with type II pulmonary hypertension. Will monitor fluid status closely. Patient may require diuretic therapy intermittently. Okay to continue with baseline hypertensive medications at this time. Inpatient E&M: [id number] [facility] L3
[2019-12-19] MEDS: dexAMETHasone 4 MG Tablet 6 MG PO (08:26)
[2019-12-19] MEDS: Acetaminophen 325 MG Tablet 650 MG PO ×2 (08:27→16:59)
[2019-12-19] MEDS: guaiFENesin 600 MG Tablet PO ×2 (08:28→21:25)
[2019-12-19] MEDS: amLODIPine 10 MG Tablet PO (08:28)
[2019-12-19] MEDS: Furosemide 80 MG Tablet PO (08:28)
[2019-12-19] MEDS: Tolterodine Tartrate 2 MG CAP.SA PO (08:28)
[2019-12-19] MEDS: Losartan Potassium 100 MG Tablet PO (08:29)
[2019-12-19] MEDS: Citalopram 20 MG Tablet PO (08:29)
[2019-12-19] MEDS: Aspirin E.C. 81 MG Tablet PO (08:29)
[2019-12-19] MEDS: Senna/Docusate Sodium 1 Tablet 2 TABLET PO (09:51)
[2019-12-19] MEDS: APIXABAN 5 MG TABLET 10 MG PO ×2 (09:51→21:25)
[2019-12-19] MEDS: Insulin Lispro 100 UNIT/ML INSULN.PEN SC ×2 (12:08→16:56)
[2019-12-19 12:20] LABS: Bedside Glucose 241 mg/dL (70-110)
--- NOTE | 2019-12-19 16:30 | PCM.PN.HOSP ---
Patient Problems: Active and Suspected Problems (Last Reviewed 12/16/19 @ 23:[address] Gilberto Rockwell, DO) Acute respiratory failure with hypoxia (Acute) Suspected COVID-19 virus infection (Acute) COVID-19 (Acute) Subjective: Pt states that she is finally feeling better. Took O2 off earlier and has been able to walk around the room some. Vitals/I&O's: Vital Signs Temp Pulse Resp BP Pulse Ox 96.8 F L 87 17 125/60 H 94 12/19/19 12:00 12/19/19 15:59 12/19/19 15:00 12/19/19 15:00 12/19/19 15:00 Oxygen Flow Rate (L/min) 1 Oxygen Delivery Method Nasal Cannula Weight: 105 kg Body Mass Index (BMI) 36.2 Intake and Output for Last 24 Hours 12/17/19 12/18/19 12/19/19 23:59 23:59 23:59 Intake Total 2105 / 2105 1210 / 1210 870 / 870 Output Total 2225 / 2225 1750 / 1750 1050 / 1050 Balance -120 / -120 -540 / -540 -180 / -180 General: Alert, Oriented x3, Cooperative, No apparent distress, Well developed, Well nourished, - - sitting up in a chair watching TV Oral: Moist Mucosa, No Gingival or Mucosal Lesions/ Ulcerations, - - no thrush Lungs: Clear to auscultation, Normal air movement, No rhonchi, No wheeze, No rales Cardiovascular: Regular rate, Regular Rhythm, Normal S1, Normal S2, No murmurs, No Ectopic Activity, No rub noted, No Gallop Abdomen: Bowel Sounds Present, Soft, Non Tender, Non-Distended, Obese Extremities: No clubbing, No cyanosis, No edema, Capillary Refill Less than 3 Seconds, Peripheral Pulses Normal Neurological: Cranial nerves II-XII grossly intact, Neuro grossly intact Psych/Mental Status: Normal Affect, Appropriate Microbiology Past 72 Hours 12/16/19 21:30 Blood Culture (Wb) - Anticubital Right Blood Culture - Preliminary No growth in 48 hours. 12/16/19 21:30 Blood Culture (Wb) - Left Hand Blood Culture - Preliminary No growth in 48 hours. 12/16/19 22:30 Urine, Clean Catch Urine Culture - Final Culture exhibits no growth. 12/16/19 22:30 Urine Catheter - Catheter Legionella Antigen - Final 12/16/19 22:30 Urine Catheter - Catheter Streptococcus pneumoniae Antigen (M - Final 12/16/19 21:35 Mucosa - Nose Influenza Types A,B Direct FA (KAMLESH) - Final Laboratory Results 12/18/19 16:48: POC Glucose 190 H 12/18/19 20:27: POC Glucose 173 H 12/19/19 04:05: WBC 4.2 L, RBC 4.34, Hgb 13.8, Hct 40.8, MCV 94.0, MCH 31.8, MCHC 33.8, RDW Std Deviation 43.0, RDW Coeff of Kristie 12.3, Plt Count 249, MPV 10.3 12/19/19 04:05: Sodium 139, Potassium 3.4 L, Chloride 105, Carbon Dioxide 28.0, Anion Gap 6, BUN 25 H, Creatinine 0.62, Estim Creat Clear Calc 53.56, Est GFR (MDRD) Af Amer 123, Est GFR (MDRD) Non-Af 102, BUN/Creatinine Ratio 40.6 H, Glucose 144 H, Calcium 7.9 L, Total Bilirubin 0.40, AST 15, ALT 28, Alkaline Phosphatase 45, Total Protein 6.8, Albumin 3.1 L, Globulin 3.7, Albumin/Globulin Ratio 0.8 L 12/19/19 12:05: POC Glucose 241 H Current Medications Acetaminophen (Acetaminophen 325 Mg Tablet) 650 mg PO Q6H PRN PRN PRN Reason: Pain Score 1-10/Temp > 100.7 F Last Admin: 12/19/19 08:27 Dose: 650 mg Documented by: Albuterol Sulfate (Albuterol 2.5 Mg/3 Ml Vial.Neb.) 2.5 mg INHALATION Q2H PRN PRN PRN Reason: SHORTNESS OF BREATH Amlodipine Besylate (Amlodipine 10 Mg Tablet) 10 mg PO DAILY [facility] Last Admin: 12/19/19 08:28 Dose: 10 mg Documented by: Apixaban (Apixaban 5 Mg Tablet) 10 mg PO BID [facility] Last Admin: 12/19/19 09:51 Dose: 10 mg Documented by: Aspirin (Aspirin E.C. 81 Mg Tablet) 81 mg PO DAILY [facility] Last Admin: 12/19/19 08:29 Dose: 81 mg Documented by: Citalopram Hydrobromide (Citalopram 20 Mg Tablet) 20 mg PO DAILY [facility] Last Admin: 12/19/19 08:29 Dose: 20 mg Documented by: Dexamethasone (Dexamethasone 4 Mg Tablet) 6 mg PO DAILY@0800 [facility] Stop: 12/26/19 08:01 Last Admin: 12/19/19 08:26 Dose: 6 mg Documented by: Dextrose (Dextrose 50%-Water 25 Gm/50 Ml Disp.Syrin) 0 gm IV X1 PRN; Protocol PRN Reason: Hypoglycemia Furosemide (Furosemide 80 Mg Tablet) 80 mg PO DAILY [facility] Last Admin: 12/19/19 08:28 Dose: 80 mg Documented by: Glucagon (Glucagon 1 Mg/Ml Syringe) 1 mg IM .X1 PRN PRN Reason: Hypoglycemia Guaifenesin (Guaifenesin 600 Mg Tablet) 600 mg PO BID [facility] Last Admin: 12/19/19 08:28 Dose: 600 mg Documented by: Sodium Chloride () 250 mls @ 15 mls/hr IV .[id number] PRN PRN Reason: Saline Flush Last Admin: 12/19/19 09:52 Dose: 15 mls/hr Documented by: Sodium Chloride () 250 mls @ 15 mls/hr IV .[id number] PRN PRN Reason: Additional IVPB Infusion Remdesivir (Investigational) (100 mg/ Sodium Chloride) 250 mls @ 125 mls/hr IV DAILY [facility]; Protocol Stop: 12/21/19 11:59 Last Infusion: 12/19/19 11:51 Dose: Infused Documented by: Insulin Human Lispro (Insulin Lispro 100 Unit/Ml Insuln.Pen) 0 unit SC ACHS [facility]; Protocol Last Admin: 12/19/19 12:08 Dose: 2 units Documented by: Losartan Potassium (Losartan Potassium 100 Mg Tablet) 100 mg PO DAILY [facility] Last Admin: 12/19/19 08:29 Dose: 100 mg Documented by: Melatonin (Melatonin 3 Mg Tablet) 3 mg PO QHS PRN PRN Reason: INSOMNIA Last Admin: 12/18/19 20:30 Dose: 3 mg Documented by: Ondansetron HCl (Ondansetron 4 Mg/2 Ml Vial) 4 mg IV Q8H PRN PRN PRN Reason: NAUSEA/VOMITING Last Admin: 12/18/19 11:46 Dose: 4 mg Documented by: Potassium Chloride (Potassium Chloride 20 Meq Tablet) 20 meq PO DAILY [facility] Last Admin: 12/19/19 08:28 Dose: 20 meq Documented by: Pravastatin Sodium (Pravastatin 40 Mg Tablet) 40 mg PO QHS [facility] Last Admin: 12/18/19 20:30 Dose: 40 mg Documented by: Senna/Docusate Sodium (Senna/Docusate Sodium 1 Tablet) 2 tablet PO BID PRN PRN PRN Reason: Constipation Last Admin: 12/19/19 09:51 Dose: 2 tablet Documented by: Sodium Chloride (0.9% Saline Lock 10 Ml Syringe) 10 - 40 ml IV UD PRN PRN Reason: SALINE FLUSH Last Admin: 12/17/19 09:20 Dose: 10 ml Documented by: Tolterodine Tartrate (Tolterodine Tartrate 2 Mg Cap.Sa) 2 mg PO DAILY [facility] Last Admin: 12/19/19 08:28 Dose: 2 mg Documented by: STROKE Vital Signs/Narrative: Vital Signs Pulse Resp BP Pulse Ox 12/19/19 15:59 87 12/19/19 15:00 71 17 125/60 H 94 12/19/19 14:25 98 12/19/19 14:00 71 22 H 118/60 94 12/19/19 13:00 60 12 112/94 H 94 Medical Necessity - Tobacco Use Smoking Status: Never smoker Assessment/Plan All Active Problems (Last Reviewed 12/16/19 @ 23:[address] Gilberto Rockwell, DO) Bimalleolar fracture of right ankle (Resolved) Syndesmotic disruption of right ankle (Resolved) Dislocation of right ankle joint (Resolved) Acute respiratory failure with hypoxia (Acute) Suspected COVID-19 virus infection (Acute) COVID-19 (Acute) Sebaceous cyst (Resolved) Edema (Resolved) Acute Hypoxic Respiratory Failure 2/2 COVID 19 -on decadron and Eliquis now -convalescent plasma given -Remdesivir initiated 12/16 (05/07) -off supplemental O2 with SpO2 92-94% -ID and Pulm/CCM following Hypokalemia -slightly low -recheck in am after replacement Hyperglycemia -suspected steroid induced -SSI HTN -continue Amlodipine/Lasix 80 daily/Losartan -d/c HCTZ since on lasix -BP controlled L LE DVT -pt states that she was on Xarelto on admission -this is not on her MAR -DVT was provoked at that time and it had completed 6 mos so treatment completed -will continue OAC for now with COVID-19 Recent R Bimalleolar fx -resolved PAH -diuresis HPL -continue statin Depression -Celexa Urinary incontinence -continue oxybutynin Obesity -recommend wgt loss DVT Prophylaxis -[place] Inpatient E&M: [id number] Subs Hosp L2
--- NOTE | 2019-12-19 16:31 | PCM.PN.ID ---
Patient Problems: Active and Suspected Problems (Last Reviewed 12/16/19 @ 23:[address] Gilberto Rockwell, DO) Acute respiratory failure with hypoxia (Acute) Suspected COVID-19 virus infection (Acute) COVID-19 (Acute) Subjective: Feeling better today, some cough, no fever - Physical Exam Vitals/I&O's: Vital Signs Temp Pulse Resp BP Pulse Ox 96.8 F L 87 17 125/60 H 94 12/19/19 12:00 12/19/19 15:59 12/19/19 15:00 12/19/19 15:00 12/19/19 15:00 Oxygen Flow Rate (L/min) 1 Oxygen Delivery Method Nasal Cannula Weight: 105 kg Body Mass Index (BMI) 36.2 Intake and Output for Last 24 Hours 12/17/19 12/18/19 12/19/19 23:59 23:59 23:59 Intake Total 2105 / 2105 1210 / 1210 870 / 870 Output Total 2225 / 2225 1750 / 1750 1050 / 1050 Balance -120 / -120 -540 / -540 -180 / -180 General: Alert, Cooperative, No apparent distress Lungs: Diminished - much improved Cardiovascular: Regular rate, Regular Rhythm Abdomen: Soft, Non Tender, Non-Distended Skin: No rashes Microbiology Past 72 Hours 12/16/19 21:30 Blood Culture (Wb) - Anticubital Right Blood Culture - Preliminary No growth in 48 hours. 12/16/19 21:30 Blood Culture (Wb) - Left Hand Blood Culture - Preliminary No growth in 48 hours. 12/16/19 22:30 Urine, Clean Catch Urine Culture - Final Culture exhibits no growth. 12/16/19 22:30 Urine Catheter - Catheter Legionella Antigen - Final 12/16/19 22:30 Urine Catheter - Catheter Streptococcus pneumoniae Antigen (M - Final 12/16/19 21:35 Mucosa - Nose Influenza Types A,B Direct FA (KAMLESH) - Final Laboratory Results 12/18/19 16:48: POC Glucose 190 H 12/18/19 20:27: POC Glucose 173 H 12/19/19 04:05: WBC 4.2 L, RBC 4.34, Hgb 13.8, Hct 40.8, MCV 94.0, MCH 31.8, MCHC 33.8, RDW Std Deviation 43.0, RDW Coeff of Kristie 12.3, Plt Count 249, MPV 10.3 12/19/19 04:05: Sodium 139, Potassium 3.4 L, Chloride 105, Carbon Dioxide 28.0, Anion Gap 6, BUN 25 H, Creatinine 0.62, Estim Creat Clear Calc 53.56, Est GFR (MDRD) Af Amer 123, Est GFR (MDRD) Non-Af 102, BUN/Creatinine Ratio 40.6 H, Glucose 144 H, Calcium 7.9 L, Total Bilirubin 0.40, AST 15, ALT 28, Alkaline Phosphatase 45, Total Protein 6.8, Albumin 3.1 L, Globulin 3.7, Albumin/Globulin Ratio 0.8 L 12/19/19 12:05: POC Glucose 241 H Current Medications Acetaminophen (Acetaminophen 325 Mg Tablet) 650 mg PO Q6H PRN PRN PRN Reason: Pain Score 1-10/Temp > 100.7 F Last Admin: 12/19/19 08:27 Dose: 650 mg Documented by: Albuterol Sulfate (Albuterol 2.5 Mg/3 Ml Vial.Neb.) 2.5 mg INHALATION Q2H PRN PRN PRN Reason: SHORTNESS OF BREATH Amlodipine Besylate (Amlodipine 10 Mg Tablet) 10 mg PO DAILY [facility] Last Admin: 12/19/19 08:28 Dose: 10 mg Documented by: Apixaban (Apixaban 5 Mg Tablet) 10 mg PO BID [facility] Last Admin: 12/19/19 09:51 Dose: 10 mg Documented by: Aspirin (Aspirin E.C. 81 Mg Tablet) 81 mg PO DAILY [facility] Last Admin: 12/19/19 08:29 Dose: 81 mg Documented by: Citalopram Hydrobromide (Citalopram 20 Mg Tablet) 20 mg PO DAILY [facility] Last Admin: 12/19/19 08:29 Dose: 20 mg Documented by: Dexamethasone (Dexamethasone 4 Mg Tablet) 6 mg PO DAILY@0800 [facility] Stop: 12/26/19 08:01 Last Admin: 12/19/19 08:26 Dose: 6 mg Documented by: Dextrose (Dextrose 50%-Water 25 Gm/50 Ml Disp.Syrin) 0 gm IV X1 PRN; Protocol PRN Reason: Hypoglycemia Furosemide (Furosemide 80 Mg Tablet) 80 mg PO DAILY [facility] Last Admin: 12/19/19 08:28 Dose: 80 mg Documented by: Glucagon (Glucagon 1 Mg/Ml Syringe) 1 mg IM .X1 PRN PRN Reason: Hypoglycemia Guaifenesin (Guaifenesin 600 Mg Tablet) 600 mg PO BID [facility] Last Admin: 12/19/19 08:28 Dose: 600 mg Documented by: Sodium Chloride () 250 mls @ 15 mls/hr IV .[id number] PRN PRN Reason: Saline Flush Last Admin: 12/19/19 09:52 Dose: 15 mls/hr Documented by: Sodium Chloride () 250 mls @ 15 mls/hr IV .[id number] PRN PRN Reason: Additional IVPB Infusion Remdesivir (Investigational) (100 mg/ Sodium Chloride) 250 mls @ 125 mls/hr IV DAILY [facility]; Protocol Stop: 12/21/19 11:59 Last Infusion: 12/19/19 11:51 Dose: Infused Documented by: Insulin Human Lispro (Insulin Lispro 100 Unit/Ml Insuln.Pen) 0 unit SC ACHS [facility]; Protocol Last Admin: 12/19/19 12:08 Dose: 2 units Documented by: Losartan Potassium (Losartan Potassium 100 Mg Tablet) 100 mg PO DAILY [facility] Last Admin: 12/19/19 08:29 Dose: 100 mg Documented by: Melatonin (Melatonin 3 Mg Tablet) 3 mg PO QHS PRN PRN Reason: INSOMNIA Last Admin: 12/18/19 20:30 Dose: 3 mg Documented by: Ondansetron HCl (Ondansetron 4 Mg/2 Ml Vial) 4 mg IV Q8H PRN PRN PRN Reason: NAUSEA/VOMITING Last Admin: 12/18/19 11:46 Dose: 4 mg Documented by: Potassium Chloride (Potassium Chloride 20 Meq Tablet) 20 meq PO DAILY [facility] Last Admin: 12/19/19 08:28 Dose: 20 meq Documented by: Pravastatin Sodium (Pravastatin 40 Mg Tablet) 40 mg PO QHS [facility] Last Admin: 12/18/19 20:30 Dose: 40 mg Documented by: Senna/Docusate Sodium (Senna/Docusate Sodium 1 Tablet) 2 tablet PO BID PRN PRN PRN Reason: Constipation Last Admin: 12/19/19 09:51 Dose: 2 tablet Documented by: Sodium Chloride (0.9% Saline Lock 10 Ml Syringe) 10 - 40 ml IV UD PRN PRN Reason: SALINE FLUSH Last Admin: 12/17/19 09:20 Dose: 10 ml Documented by: Tolterodine Tartrate (Tolterodine Tartrate 2 Mg Cap.Sa) 2 mg PO DAILY [facility] Last Admin: 12/19/19 08:28 Dose: 2 mg Documented by: Medical Necessity - Tobacco Use Smoking Status: Never smoker Route of nutrition/ use of supplements: [] Nutritional Intake: [] IV Site: [] Lara Catheter: [] - Assessment/Plan Antibiotics: [] Assessment/Plan: [] Active and Suspected Problems (Last Reviewed 12/16/19 @ 23:[address] Gilberto Rockwell, DO) Acute respiratory failure with hypoxia (Acute) Suspected COVID-19 virus infection (Acute) covid with acute hypoxic resp failure - on dex and therapeutic lovenox. Minimally elevated d-dimer. H/o DVT. Cont remdesivir, plasma pending. Feeling a lot better today. Will follow, d/w nursing
[2019-12-19 17:11] LABS: Bedside Glucose 218 mg/dL (70-110)
[2019-12-19] MEDS: Pravastatin 40 MG Tablet PO (21:25)
[2019-12-20] VITALS (14 sets, daily range): BP systolic 119–167; BP diastolic 64–84; PULSE 55–70; RESP 13–28; TEMP 36.2–36.6; O2SAT 92–98
[2019-12-20 06:53] LABS: Hematocrit 41.1 % (37-47); Hemoglobin 13.6 g/dL (12.0-15.0); Mean Corp Hgb Conc 33.1 g/dL (32-36); Mean Corpuscular Hgb 31.4 pg (27.0-32.0); Mean Corpuscular Volume 94.9 fL (81-99); Mean Platelet Vol. 10.3 fl (6.2-12.0); Platelet Count 280 K/mm3 (150-450); RBC Distribution Width CV 12.1 % (11.6-14.6); RBC Distribution Width SD 42.4 fl (35.1-43.9); Red Blood Count 4.33 M/mm3 (4.2-5.4); White Blood Count 4.6 K/mm3 (4.4-11.0)
[2019-12-20 07:15] LABS: ALB/GLOB Ratio 0.8 RATIO (0.9-2.4); AST(SGOT) 14 U/L (15-37); Alanine Aminotransfer ALT/SGPT 25 U/L (13-56); Albumin, Serum 2.9 g/dL (3.2-5.0); Alkaline Phosphatase 47 U/L (45-117); Anion Gap 4 (5-15); BUN 24 mg/dL (7-18); BUN/Creat Ratio 47.6 RATIO (10-20); Calcium,Total 7.9 mg/dL (8.5-10.1); Chloride 108 mmol/L (98-107); EST Glomerular Filtration Rate 129 mL/min (>60); Est Glom Filt Rate - Afr Amer 156 mL/min (>60); Estimated Creatinine Clearance 53.56 ml/min; Globulin 3.6 g/dL (2.2-4.2); Glucose 121 mg/dL (74-106); Potassium 3.9 mmol/L (3.5-5.1); Protein, Total 6.5 g/dL (6.4-8.2); Sodium Level 141 mmol/L (136-145)
--- NOTE | 2019-12-20 07:46 | PN_ITS ---
Patient Problems: Active and Suspected Problems (Last Reviewed 12/16/19 @ 23:[address] Gilberto Rockwell, DO) Acute respiratory failure with hypoxia (Acute) Suspected COVID-19 virus infection (Acute) COVID-19 (Acute) Subjective: Patient did well overnight. Patient did receive convalescent serum and tolerated this well. Patient continues to have no need for BiPAP rescue. Patient does report it is been several days since her last bowel movement. Patient denies any current chest pain, abdominal pain, nausea or vomiting. Patient does believe the melatonin is helping with sleeping overnight. - Physical Exam Vitals/I&O's: Vital Signs Temp Pulse Resp BP Pulse Ox 36.3 C L 61 20 H 144/77 H 96 12/20/19 04:50 12/20/19 06:00 12/20/19 06:00 12/20/19 06:00 12/20/19 07:18 Oxygen Flow Rate (L/min) 1 Oxygen Delivery Method Nasal Cannula Weight: 104.6 kg Body Mass Index (BMI) 36.2 Intake and Output for Last 24 Hours 12/18/19 12/19/19 12/20/19 23:59 23:59 23:59 Intake Total 1210 / 1210 1522 / 1522 700 / 700 Output Total 1750 / 1750 1850 / 1850 500 / 500 Balance -540 / -540 -328 / -328 200 / 200 General: Alert, Oriented x3, Cooperative, No apparent distress, - - No conversational dyspnea HEENT: Atraumatic, PERRLA, EOMI, Normocephalic, - - No scleral icterus or injection noted Oral: Moist Mucosa, No Gingival or Mucosal Lesions/ Ulcerations Neck: Supple, No JVD, No Nodes, Trachea Midline Lungs: No rhonchi, No wheeze, No rales, Diminished, - - Symmetric expansion. No dullness to percussion. Cardiovascular: Regular rate, Regular Rhythm, Normal S1, Normal S2, No murmurs, No rub noted, No Gallop Abdomen: Bowel Sounds Present, Soft, Non Tender, Non-Distended Extremities: No clubbing, No cyanosis, Edema - Trace lower extremity Skin: No rashes, No breakdown Musculoskeletal: No Tenderness to Palpation of Joints or Extremities Lymphatic: No Cervical, Supraclavicular, or Inguinal Adenopathy Neurological: Cranial nerves II-XII grossly intact, Neuro grossly intact, Motor Exam 5/5 strength throughout Psych/Mental Status: Alert and oriented to time, place, person, mood and affect Microbiology Past 72 Hours 12/16/19 21:30 Blood Culture (Wb) - Anticubital Right Blood Culture - Preliminary No growth in 48 hours. 12/16/19 21:30 Blood Culture (Wb) - Left Hand Blood Culture - Preliminary No growth in 48 hours. 12/16/19 22:30 Urine, Clean Catch Urine Culture - Final Culture exhibits no growth. Laboratory Results 12/19/19 12:05: POC Glucose 241 H 12/19/19 16:54: POC Glucose 218 H 12/20/19 06:40: WBC 4.6, RBC 4.33, Hgb 13.6, Hct 41.1, MCV 94.9, MCH 31.4, MCHC 33.1, RDW Std Deviation 42.4, RDW Coeff of Kristie 12.1, Plt Count 280, MPV 10.3 12/20/19 06:40: Sodium 141, Potassium 3.9, Chloride 108 H, Carbon Dioxide 29.0, Anion Gap 4 L, BUN 24 H, Creatinine 0.50 L, Estim Creat Clear Calc 53.56, Est GFR (MDRD) Af Amer 156, Est GFR (MDRD) Non-Af 129, BUN/Creatinine Ratio 47.6 H, Glucose 121 H, Calcium 7.9 L, Total Bilirubin 0.60, AST 14 L, ALT 25, Alkaline Phosphatase 47, Total Protein 6.5, Albumin 2.9 L, Globulin 3.6, Albumin/Globulin Ratio 0.8 L Current Medications Acetaminophen (Acetaminophen 325 Mg Tablet) 650 mg PO Q6H PRN PRN PRN Reason: Pain Score 1-10/Temp > 100.7 F Last Admin: 12/19/19 16:59 Dose: 650 mg Documented by: Albuterol Sulfate (Albuterol 2.5 Mg/3 Ml Vial.Neb.) 2.5 mg INHALATION Q2H PRN PRN PRN Reason: SHORTNESS OF BREATH Amlodipine Besylate (Amlodipine 10 Mg Tablet) 10 mg PO DAILY [facility] Last Admin: 12/19/19 08:28 Dose: 10 mg Documented by: Apixaban (Apixaban 5 Mg Tablet) 10 mg PO BID [facility] Last Admin: 12/19/19 21:25 Dose: 10 mg Documented by: Aspirin (Aspirin E.C. 81 Mg Tablet) 81 mg PO DAILY [facility] Last Admin: 12/19/19 08:29 Dose: 81 mg Documented by: Citalopram Hydrobromide (Citalopram 20 Mg Tablet) 20 mg PO DAILY [facility] Last Admin: 12/19/19 08:29 Dose: 20 mg Documented by: Dexamethasone (Dexamethasone 4 Mg Tablet) 6 mg PO DAILY@0800 [facility] Stop: 12/26/19 08:01 Last Admin: 12/19/19 08:26 Dose: 6 mg Documented by: Dextrose (Dextrose 50%-Water 25 Gm/50 Ml Disp.Syrin) 0 gm IV X1 PRN; Protocol PRN Reason: Hypoglycemia Furosemide (Furosemide 80 Mg Tablet) 80 mg PO DAILY [facility] Last Admin: 12/19/19 08:28 Dose: 80 mg Documented by: Glucagon (Glucagon 1 Mg/Ml Syringe) 1 mg IM .X1 PRN PRN Reason: Hypoglycemia Guaifenesin (Guaifenesin 600 Mg Tablet) 600 mg PO BID [facility] Last Admin: 12/19/19 21:25 Dose: 600 mg Documented by: Sodium Chloride () 250 mls @ 15 mls/hr IV .[id number] PRN PRN Reason: Saline Flush Last Infusion: 12/19/19 20:00 Dose: 0 mls/hr Documented by: Sodium Chloride () 250 mls @ 15 mls/hr IV .[id number] PRN PRN Reason: Additional IVPB Infusion Remdesivir (Investigational) (100 mg/ Sodium Chloride) 250 mls @ 125 mls/hr IV DAILY [facility]; Protocol Stop: 12/21/19 11:59 Last Infusion: 12/19/19 11:51 Dose: Infused Documented by: Insulin Human Lispro (Insulin Lispro 100 Unit/Ml Insuln.Pen) 0 unit SC ACHS [facility]; Protocol Last Admin: 12/19/19 21:26 Dose: Not Given Documented by: Losartan Potassium (Losartan Potassium 100 Mg Tablet) 100 mg PO DAILY [facility] Last Admin: 12/19/19 08:29 Dose: 100 mg Documented by: Melatonin (Melatonin 3 Mg Tablet) 3 mg PO QHS PRN PRN Reason: INSOMNIA Last Admin: 12/18/19 20:30 Dose: 3 mg Documented by: Ondansetron HCl (Ondansetron 4 Mg/2 Ml Vial) 4 mg IV Q8H PRN PRN PRN Reason: NAUSEA/VOMITING Last Admin: 12/18/19 11:46 Dose: 4 mg Documented by: Potassium Chloride (Potassium Chloride 20 Meq Tablet) 20 meq PO DAILY [facility] Last Admin: 12/19/19 08:28 Dose: 20 meq Documented by: Pravastatin Sodium (Pravastatin 40 Mg Tablet) 40 mg PO QHS [facility] Last Admin: 12/19/19 21:25 Dose: 40 mg Documented by: Senna/Docusate Sodium (Senna/Docusate Sodium 1 Tablet) 2 tablet PO BID PRN PRN PRN Reason: Constipation Last Admin: 12/19/19 09:51 Dose: 2 tablet Documented by: Sodium Chloride (0.9% Saline Lock 10 Ml Syringe) 10 - 40 ml IV UD PRN PRN Reason: SALINE FLUSH Last Admin: 12/17/19 09:20 Dose: 10 ml Documented by: Tolterodine Tartrate (Tolterodine Tartrate 2 Mg Cap.Sa) 2 mg PO DAILY [facility] Last Admin: 12/19/19 08:28 Dose: 2 mg Documented by: Medical Necessity - Tobacco Use Smoking Status: Never smoker Assessment/Plan All Active Problems (Last Reviewed 12/16/19 @ 23:[address] Gilberto Rockwell, DO) Bimalleolar fracture of right ankle (Resolved) Syndesmotic disruption of right ankle (Resolved) Dislocation of right ankle joint (Resolved) Acute respiratory failure with hypoxia (Acute) Suspected COVID-19 virus infection (Acute) COVID-19 (Acute) Sebaceous cyst (Resolved) Edema (Resolved) RECOMMENDATIONS: 1. Okay to use Tylenol for headache, melatonin for sleep. Continue stool softeners 2. Increase activity as tolerated 3. Continue antiretroviral therapy, Decadron and anticoagulation 4. Continue anticoagulation 5. Continue CPAP at home settings with sleep 6. Wean oxygen as tolerated 7. Possible discharge in the next 24 hours IMPRESSIONS: 1. Acute hypoxic respiratory failure secondary to COVID-19 Patient with bilateral infiltrates and significant increase in AA gradient. Patient does not appear to be fluid overloaded at this time. Given significant hypoxia, day 7 of symptoms on presentation and verified COVID-19, will transfuse convalescent serum when available. Patient is on anticoagulation and Decadron and tolerating well. Patient has been initiated on antiretroviral therapy and this will be completed tomorrow. Wean oxygen as tolerated. 2. Hypokalemia/hypertension/obesity/pulmonary hypertension Complicates care, management, recovery and prognosis. Patient did receive potassium supplementation. Patient has had elevated pulmonary artery pressures in the past and a pattern consistent with type II pulmonary hypertension. Will monitor fluid status closely. Fluid status appears to be stable. Okay to continue with baseline hypertensive medications at this time. Continue stool softeners until bowel movement Inpatient E&M: 39160 [facility] Hosp L2
--- NOTE | 2019-12-20 10:05 | CM.UR ---
Participated in interdisciplinary rounds this am. Plan is for patient to be discharged home, possibly tomorrow. Dr. Mcintosh mentioned possibly needing Home O2 at discharge. Reviewed chart and noted that patient already has home o2 that she bleeds into her cpap at night. Gets from [facility]. Will need updated order faxed with changes, at discharge. Placed green sheet on chart at this time. Meek Ortiz RN, CCM.
[2019-12-20 10:13] LABS: Bedside Glucose 106 mg/dL (70-110)
[2019-12-20] MEDS: Losartan Potassium 100 MG Tablet PO (10:13)
[2019-12-20] MEDS: dexAMETHasone 4 MG Tablet 6 MG PO (10:13)
[2019-12-20] MEDS: Citalopram 20 MG Tablet PO (10:13)
[2019-12-20] MEDS: amLODIPine 10 MG Tablet PO (10:13)
[2019-12-20] MEDS: Aspirin E.C. 81 MG Tablet PO (10:13)
[2019-12-20] MEDS: Tolterodine Tartrate 2 MG CAP.SA PO (10:13)
[2019-12-20] MEDS: guaiFENesin 600 MG Tablet PO ×2 (10:14→21:24)
[2019-12-20] MEDS: Furosemide 80 MG Tablet PO (10:14)
[2019-12-20] MEDS: APIXABAN 5 MG TABLET 10 MG PO ×2 (10:14→21:24)
--- NOTE | 2019-12-20 11:53 | PN_ITS ---
Patient Problems: Active and Suspected Problems (Last Reviewed 12/16/19 @ 23:[address] Gilberto Rockwell, DO) Acute respiratory failure with hypoxia (Acute) Suspected COVID-19 virus infection (Acute) COVID-19 (Acute) Subjective: Pt states that she is feeling much better. No BM yet. No bleeding. Not ready to go home but would like to go tomorrow if able. Vitals/I&O's: Vital Signs Temp Pulse Resp BP Pulse Ox 97.5 F L 70 28 H 151/83 H 95 12/20/19 10:21 12/20/19 10:21 12/20/19 10:21 12/20/19 10:21 12/20/19 10:38 Oxygen Flow Rate (L/min) 1 Oxygen Delivery Method Nasal Cannula Weight: 104.6 kg Body Mass Index (BMI) 36.2 Intake and Output for Last 24 Hours 12/18/19 12/19/19 12/20/19 23:59 23:59 23:59 Intake Total 1210 / 1210 1522 / 1522 700 / 700 Output Total 1750 / 1750 1850 / 1850 500 / 500 Balance -540 / -540 -328 / -328 200 / 200 General: Alert, Oriented x3, Cooperative, No apparent distress, Well developed, Well nourished HEENT: Atraumatic, Normocephalic Oral: Moist Mucosa, - - no thrush Neck: Supple, Trachea Midline Lungs: Clear to auscultation, No rhonchi, No wheeze, No rales, Diminished Cardiovascular: Regular rate, Regular Rhythm, Normal S1, Normal S2, No murmurs, No Ectopic Activity, No rub noted, No Gallop Abdomen: Bowel Sounds Present, Soft, Non Tender, Non-Distended, Obese Extremities: No clubbing, No cyanosis, No edema, Capillary Refill Less than 3 Seconds, Peripheral Pulses Normal Skin: No rashes, No breakdown Neurological: Cranial nerves II-XII grossly intact, Neuro grossly intact Psych/Mental Status: Normal Affect, Appropriate Microbiology Past 72 Hours 12/16/19 21:30 Blood Culture (Wb) - Anticubital Right Blood Culture - Preliminary No growth in 48 hours. 12/16/19 21:30 Blood Culture (Wb) - Left Hand Blood Culture - Preliminary No growth in 48 hours. 12/16/19 22:30 Urine, Clean Catch Urine Culture - Final Culture exhibits no growth. Laboratory Results 12/19/19 12:05: POC Glucose 241 H 12/19/19 16:54: POC Glucose 218 H 12/20/19 06:40: WBC 4.6, RBC 4.33, Hgb 13.6, Hct 41.1, MCV 94.9, MCH 31.4, MCHC 33.1, RDW Std Deviation 42.4, RDW Coeff of Kristie 12.1, Plt Count 280, MPV 10.3 12/20/19 06:40: Sodium 141, Potassium 3.9, Chloride 108 H, Carbon Dioxide 29.0, Anion Gap 4 L, BUN 24 H, Creatinine 0.50 L, Estim Creat Clear Calc 53.56, Est GFR (MDRD) Af Amer 156, Est GFR (MDRD) Non-Af 129, BUN/Creatinine Ratio 47.6 H, Glucose 121 H, Calcium 7.9 L, Total Bilirubin 0.60, AST 14 L, ALT 25, Alkaline Phosphatase 47, Total Protein 6.5, Albumin 2.9 L, Globulin 3.6, Albumin/Globulin Ratio 0.8 L 12/20/19 09:00: POC Glucose 106 Current Medications Acetaminophen (Acetaminophen 325 Mg Tablet) 650 mg PO Q6H PRN PRN PRN Reason: Pain Score 1-10/Temp > 100.7 F Last Admin: 12/19/19 16:59 Dose: 650 mg Documented by: Albuterol Sulfate (Albuterol 2.5 Mg/3 Ml Vial.Neb.) 2.5 mg INHALATION Q2H PRN PRN PRN Reason: SHORTNESS OF BREATH Amlodipine Besylate (Amlodipine 10 Mg Tablet) 10 mg PO DAILY [facility] Last Admin: 12/20/19 10:13 Dose: 10 mg Documented by: Apixaban (Apixaban 5 Mg Tablet) 10 mg PO BID [facility] Last Admin: 12/20/19 10:14 Dose: 10 mg Documented by: Aspirin (Aspirin E.C. 81 Mg Tablet) 81 mg PO DAILY [facility] Last Admin: 12/20/19 10:13 Dose: 81 mg Documented by: Citalopram Hydrobromide (Citalopram 20 Mg Tablet) 20 mg PO DAILY [facility] Last Admin: 12/20/19 10:13 Dose: 20 mg Documented by: Dexamethasone (Dexamethasone 4 Mg Tablet) 6 mg PO DAILY@0800 [facility] Stop: 12/26/19 08:01 Last Admin: 12/20/19 10:13 Dose: 6 mg Documented by: Dextrose (Dextrose 50%-Water 25 Gm/50 Ml Disp.Syrin) 0 gm IV X1 PRN; Protocol PRN Reason: Hypoglycemia Furosemide (Furosemide 80 Mg Tablet) 80 mg PO DAILY [facility] Last Admin: 12/20/19 10:14 Dose: 80 mg Documented by: Glucagon (Glucagon 1 Mg/Ml Syringe) 1 mg IM .X1 PRN PRN Reason: Hypoglycemia Guaifenesin (Guaifenesin 600 Mg Tablet) 600 mg PO BID [facility] Last Admin: 12/20/19 10:14 Dose: 600 mg Documented by: Sodium Chloride () 250 mls @ 15 mls/hr IV .[id number] PRN PRN Reason: Saline Flush Last Infusion: 12/19/19 20:00 Dose: 0 mls/hr Documented by: Sodium Chloride () 250 mls @ 15 mls/hr IV .[id number] PRN PRN Reason: Additional IVPB Infusion Remdesivir (Investigational) (100 mg/ Sodium Chloride) 250 mls @ 125 mls/hr IV DAILY [facility]; Protocol Stop: 12/21/19 11:59 Last Admin: 12/20/19 10:14 Dose: 125 mls/hr Documented by: Insulin Human Lispro (Insulin Lispro 100 Unit/Ml Insuln.Pen) 0 unit SC ACHS [facility]; Protocol Last Admin: 12/20/19 10:21 Dose: Not Given Documented by: Losartan Potassium (Losartan Potassium 100 Mg Tablet) 100 mg PO DAILY [facility] Last Admin: 12/20/19 10:13 Dose: 100 mg Documented by: Melatonin (Melatonin 3 Mg Tablet) 3 mg PO QHS PRN PRN Reason: INSOMNIA Last Admin: 12/18/19 20:30 Dose: 3 mg Documented by: Ondansetron HCl (Ondansetron 4 Mg/2 Ml Vial) 4 mg IV Q8H PRN PRN PRN Reason: NAUSEA/VOMITING Last Admin: 12/18/19 11:46 Dose: 4 mg Documented by: Potassium Chloride (Potassium Chloride 20 Meq Tablet) 20 meq PO DAILY [facility] Last Admin: 12/20/19 10:13 Dose: 20 meq Documented by: Pravastatin Sodium (Pravastatin 40 Mg Tablet) 40 mg PO QHS [facility] Last Admin: 12/19/19 21:25 Dose: 40 mg Documented by: Senna/Docusate Sodium (Senna/Docusate Sodium 1 Tablet) 2 tablet PO BID PRN PRN PRN Reason: Constipation Last Admin: 12/19/19 09:51 Dose: 2 tablet Documented by: Sodium Chloride (0.9% Saline Lock 10 Ml Syringe) 10 - 40 ml IV UD PRN PRN Reason: SALINE FLUSH Last Admin: 12/17/19 09:20 Dose: 10 ml Documented by: Tolterodine Tartrate (Tolterodine Tartrate 2 Mg Cap.Sa) 2 mg PO DAILY [facility] Last Admin: 12/20/19 10:13 Dose: 2 mg Documented by: STROKE Vital Signs/Narrative: Vital Signs Temp Pulse Resp BP Pulse Ox 12/20/19 10:38 95 12/20/19 10:21 97.5 F L 70 28 H 151/83 H 97 Medical Necessity - Tobacco Use Smoking Status: Never smoker Assessment/Plan All Active Problems (Last Reviewed 12/16/19 @ 23:[address] Gilberto Rockwell, DO) Bimalleolar fracture of right ankle (Resolved) Syndesmotic disruption of right ankle (Resolved) Dislocation of right ankle joint (Resolved) Acute respiratory failure with hypoxia (Acute) Suspected COVID-19 virus infection (Acute) COVID-19 (Acute) Sebaceous cyst (Resolved) Edema (Resolved) Acute Hypoxic Respiratory Failure 2/2 COVID 19 -on decadron (day 07/12) and Eliquis now -convalescent plasma given -Remdesivir initiated 12/16 (06/07) -on 1 L at 92-97% -desataturates at [facility] -ID and Pulm/CCM following Hypokalemia -resolved Hyperglycemia -suspected steroid induced -SSI HTN -continue Amlodipine/Lasix 80 daily/Losartan -d/c HCTZ since on lasix -BP up but on steroid--> monitor L LE DVT -pt states that she was on Xarelto on admission -this is not on her MAR -DVT was provoked at that time and it had completed 6 mos so treatment completed -will continue OAC for now with COVID-19 Recent R Bimalleolar fx -resolved PAH -diuresis HESHAM CPAP --> pt reports compliance HPL -continue statin Depression -Celexa Urinary incontinence -continue oxybutynin Obesity -recommend wgt loss DVT Prophylaxis -[facility] Inpatient E&M: 18922 Subs Hosp L2
[2019-12-20 13:01] LABS: Bedside Glucose 142 mg/dL (70-110)
[2019-12-20] MEDS: Insulin Lispro 100 UNIT/ML INSULN.PEN SC ×2 (17:04→21:25)
[2019-12-20 17:41] LABS: Bedside Glucose 275 mg/dL (70-110)
[2019-12-20] MEDS: Pravastatin 40 MG Tablet PO (21:24)
[2019-12-20 22:15] LABS: Bedside Glucose 215 mg/dL (70-110)
[2019-12-21] VITALS (8 sets, daily range): BP systolic 134–150; BP diastolic 75–89; PULSE 52–61; RESP 16–18; TEMP 36.1–36.2; O2SAT 93–97
[2019-12-21 03:22] LABS: Hematocrit 43.1 % (37-47); Hemoglobin 14.3 g/dL (12.0-15.0); Mean Corp Hgb Conc 33.2 g/dL (32-36); Mean Corpuscular Hgb 31.4 pg (27.0-32.0); Mean Corpuscular Volume 94.5 fL (81-99); Mean Platelet Vol. 10.2 fl (6.2-12.0); Platelet Count 342 K/mm3 (150-450); Red Blood Count 4.56 M/mm3 (4.2-5.4); White Blood Count 6.1 K/mm3 (4.4-11.0)
[2019-12-21 03:37] LABS: ALB/GLOB Ratio 0.9 RATIO (0.9-2.4); AST(SGOT) 17 U/L (15-37); Alanine Aminotransfer ALT/SGPT 31 U/L (13-56); Albumin, Serum 3.1 g/dL (3.2-5.0); Alkaline Phosphatase 52 U/L (45-117); Anion Gap 4 (5-15); BUN 22 mg/dL (7-18); BUN/Creat Ratio 37.4 RATIO (10-20); Chloride 106 mmol/L (98-107); Creatinine, Serum 0.59 mg/dL (0.55-1.02); EST Glomerular Filtration Rate 107 mL/min (>60); Est Glom Filt Rate - Afr Amer 130 mL/min (>60); Estimated Creatinine Clearance 53.56 ml/min; Globulin 3.6 g/dL (2.2-4.2); Glucose 168 mg/dL (74-106); Potassium 3.8 mmol/L (3.5-5.1); Protein, Total 6.7 g/dL (6.4-8.2); Sodium Level 140 mmol/L (136-145)
--- NOTE | 2019-12-21 07:20 | PN_ITS ---
Patient Problems: Active and Suspected Problems (Last Reviewed 12/16/19 @ 23:[address] Gilberto Rockwell, DO) Acute respiratory failure with hypoxia (Acute) Suspected COVID-19 virus infection (Acute) COVID-19 (Acute) Subjective: Patient did well overnight. No acute issues were reported. Patient did have a bowel movement and tolerated well. - Physical Exam Vitals/I&O's: Vital Signs Temp Pulse Resp BP Pulse Ox 36.1 C L 60 16 150/89 H 97 12/21/19 03:15 12/21/19 05:25 12/21/19 05:25 12/21/19 03:15 12/21/19 05:25 Oxygen Flow Rate (L/min) 1 Oxygen Delivery Method Bi-pap Weight: 104.9 kg Body Mass Index (BMI) 36.2 Intake and Output for Last 24 Hours 12/19/19 12/20/19 12/21/19 23:59 23:59 23:59 Intake Total 1522 / 1522 950 / 950 Output Total 1850 / 1850 1800 / 1800 Balance -328 / -328 -850 / -850 General: Alert, Oriented x3, Cooperative, No apparent distress, Well developed, Well nourished, - - Obese. Speaking in full sentences. HEENT: Atraumatic, PERRLA, EOMI, Normocephalic, - - No scleral icterus or injection noted Oral: Moist Mucosa, No Gingival or Mucosal Lesions/ Ulcerations Neck: Supple, No JVD, No Nodes, Trachea Midline Lungs: No rhonchi, No wheeze, No rales, Diminished, - - Fair effort. Cardiovascular: Normal S1, Normal S2, No murmurs, Bradycardic, No rub noted, No Gallop Abdomen: Bowel Sounds Present, Soft, Non Tender, Non-Distended, Obese Extremities: No clubbing, No cyanosis, No edema, Capillary Refill Less than 3 Seconds Skin: No rashes, No breakdown Musculoskeletal: No Tenderness to Palpation of Joints or Extremities Lymphatic: No Cervical, Supraclavicular, or Inguinal Adenopathy Neurological: Cranial nerves II-XII grossly intact, Neuro grossly intact, Motor Exam 5/5 strength throughout Psych/Mental Status: Alert and oriented to time, place, person, mood and affect Microbiology Past 72 Hours 12/16/19 21:30 Blood Culture (Wb) - Anticubital Right Blood Culture - Preliminary No growth in 48 hours. 12/16/19 21:30 Blood Culture (Wb) - Left Hand Blood Culture - Preliminary No growth in 48 hours. 12/16/19 22:30 Urine, Clean Catch Urine Culture - Final Culture exhibits no growth. Laboratory Results 12/20/19 09:00: POC Glucose 106 12/20/19 12:54: POC Glucose 142 H 12/20/19 17:01: POC Glucose 275 H 12/20/19 21:23: POC Glucose 215 H 12/21/19 03:15: WBC 6.1, RBC 4.56, Hgb 14.3, Hct 43.1, MCV 94.5, MCH 31.4, MCHC 33.2, RDW Std Deviation 42.0, RDW Coeff of Kristie 12.0, Plt Count 342, MPV 10.2 12/21/19 03:15: Sodium 140, Potassium 3.8, Chloride 106, Carbon Dioxide 30.0, Anion Gap 4 L, BUN 22 H, Creatinine 0.59, Estim Creat Clear Calc 53.56, Est GFR (MDRD) Af Amer 130, Est GFR (MDRD) Non-Af 107, BUN/Creatinine Ratio 37.4 H, Glucose 168 H, Calcium 8.0 L, Total Bilirubin 0.50, AST 17, ALT 31, Alkaline Phosphatase 52, Total Protein 6.7, Albumin 3.1 L, Globulin 3.6, Albumin/Globulin Ratio 0.9 Current Medications Acetaminophen (Acetaminophen 325 Mg Tablet) 650 mg PO Q6H PRN PRN PRN Reason: Pain Score 1-10/Temp > 100.7 F Last Admin: 12/19/19 16:59 Dose: 650 mg Documented by: Albuterol Sulfate (Albuterol 2.5 Mg/3 Ml Vial.Neb.) 2.5 mg INHALATION Q2H PRN PRN PRN Reason: SHORTNESS OF BREATH Amlodipine Besylate (Amlodipine 10 Mg Tablet) 10 mg PO DAILY [facility] Last Admin: 12/20/19 10:13 Dose: 10 mg Documented by: Apixaban (Apixaban 5 Mg Tablet) 10 mg PO BID [facility] Last Admin: 12/20/19 21:24 Dose: 10 mg Documented by: Aspirin (Aspirin E.C. 81 Mg Tablet) 81 mg PO DAILY [facility] Last Admin: 12/20/19 10:13 Dose: 81 mg Documented by: Citalopram Hydrobromide (Citalopram 20 Mg Tablet) 20 mg PO DAILY [facility] Last Admin: 12/20/19 10:13 Dose: 20 mg Documented by: Dexamethasone (Dexamethasone 4 Mg Tablet) 6 mg PO DAILY@0800 [facility] Stop: 12/26/19 08:01 Last Admin: 12/20/19 10:13 Dose: 6 mg Documented by: Dextrose (Dextrose 50%-Water 25 Gm/50 Ml Disp.Syrin) 0 gm IV X1 PRN; Protocol PRN Reason: Hypoglycemia Furosemide (Furosemide 80 Mg Tablet) 80 mg PO DAILY [facility] Last Admin: 12/20/19 10:14 Dose: 80 mg Documented by: Glucagon (Glucagon 1 Mg/Ml Syringe) 1 mg IM .X1 PRN PRN Reason: Hypoglycemia Guaifenesin (Guaifenesin 600 Mg Tablet) 600 mg PO BID [facility] Last Admin: 12/20/19 21:24 Dose: 600 mg Documented by: Sodium Chloride () 250 mls @ 15 mls/hr IV .[id number] PRN PRN Reason: Saline Flush Last Infusion: 12/19/19 20:00 Dose: 0 mls/hr Documented by: Sodium Chloride () 250 mls @ 15 mls/hr IV .[id number] PRN PRN Reason: Additional IVPB Infusion Remdesivir (Investigational) (100 mg/ Sodium Chloride) 250 mls @ 125 mls/hr IV DAILY [facility]; Protocol Stop: 12/21/19 11:59 Last Infusion: 12/20/19 12:14 Dose: Infused Documented by: Insulin Human Lispro (Insulin Lispro 100 Unit/Ml Insuln.Pen) 0 unit SC ACHS [facility]; Protocol Last Admin: 12/20/19 21:25 Dose: 2 units Documented by: Losartan Potassium (Losartan Potassium 100 Mg Tablet) 100 mg PO DAILY [facility] Last Admin: 12/20/19 10:13 Dose: 100 mg Documented by: Melatonin (Melatonin 3 Mg Tablet) 3 mg PO QHS PRN PRN Reason: INSOMNIA Last Admin: 12/18/19 20:30 Dose: 3 mg Documented by: Ondansetron HCl (Ondansetron 4 Mg/2 Ml Vial) 4 mg IV Q8H PRN PRN PRN Reason: NAUSEA/VOMITING Last Admin: 12/18/19 11:46 Dose: 4 mg Documented by: Potassium Chloride (Potassium Chloride 20 Meq Tablet) 20 meq PO DAILY [facility] Last Admin: 12/20/19 10:13 Dose: 20 meq Documented by: Pravastatin Sodium (Pravastatin 40 Mg Tablet) 40 mg PO QHS [facility] Last Admin: 12/20/19 21:24 Dose: 40 mg Documented by: Senna/Docusate Sodium (Senna/Docusate Sodium 1 Tablet) 2 tablet PO BID PRN PRN PRN Reason: Constipation Last Admin: 12/19/19 09:51 Dose: 2 tablet Documented by: Sodium Chloride (0.9% Saline Lock 10 Ml Syringe) 10 - 40 ml IV UD PRN PRN Reason: SALINE FLUSH Last Admin: 12/17/19 09:20 Dose: 10 ml Documented by: Tolterodine Tartrate (Tolterodine Tartrate 2 Mg Cap.Sa) 2 mg PO DAILY [facility] Last Admin: 12/20/19 10:13 Dose: 2 mg Documented by: Medical Necessity - Tobacco Use Smoking Status: Never smoker Assessment/Plan All Active Problems (Last Reviewed 12/16/19 @ 23:[address] Gilberto Rockwell, DO) Bimalleolar fracture of right ankle (Resolved) Syndesmotic disruption of right ankle (Resolved) Dislocation of right ankle joint (Resolved) Acute respiratory failure with hypoxia (Acute) Suspected COVID-19 virus infection (Acute) COVID-19 (Acute) Sebaceous cyst (Resolved) Edema (Resolved) RECOMMENDATIONS: 1. Okay to use Tylenol for headache, melatonin for sleep. Continue stool softeners 2. Increase activity as tolerated 3. Completed antiretroviral therapy. Decadron to complete 10 days and anticoagulation for the next 3 months 4. Walking oximetry with supplemental oxygen is indicated for home 5. Continue CPAP at home settings with sleep 6. Follow-up with nurse practitioner in 4 weeks in our office 7. Okay to discharge from a pulmonary perspective IMPRESSIONS: 1. Acute hypoxic respiratory failure secondary to COVID-19 Patient with bilateral infiltrates and significant increase in AA gradient. Patient does not appear to be fluid overloaded at this time. Given significant hypoxia, day 7 of symptoms on presentation and verified COVID-19, and tolerated convalescent serum well. Patient is now completed antiretroviral therapy. Decadron should be completed for a total of 10 days. Anticoagulation for the next 3 months given history of DVT. Patient will need a walking oximetry prior to discharge. Patient should be advised to have a pulse oximeter at home. Patient can follow-up with nurse practitioner in our office in 4 weeks for appropriate testing. 2. Hypokalemia/hypertension/obesity/pulmonary hypertension Complicates care, management, recovery and prognosis. Patient did receive potassium supplementation. Patient has had elevated pulmonary artery pressures in the past and a pattern consistent with type II pulmonary hypertension. Fluid status appears to be stable. Okay to continue with baseline hypertensive medications at this time. Continue stool softeners as needed. Inpatient E&M: 06300 Subs Hosp L2
--- NOTE | 2019-12-21 09:15 | DCINST_ITS ---
- Discharge Diagnoses Current Active Problems: Current Active and Chronic Problems (Last Reviewed 12/16/19 @ 23:[address] Gilberto Rockwell, DO) Acute respiratory failure with hypoxia (Acute) Suspected COVID-19 virus infection (Acute) COVID-19 (Acute) SOB (shortness of breath) (Chronic) Pulmonary hypertension (Chronic) Essential hypertension (Chronic) Urinary incontinence (Chronic) UA and culture and start oxybutinin Mood disorder (Chronic) Hyperlipidemia (Chronic) You will use the following diet at home:: Cardiac Your food should be the consistency of: Regular Your liquids should be the consistency of: Regular/Thin Discharge Activity: Return to Normal Activity, No Restrictions, [address], - - Please self quarantine through 12/24 Allergies/Adverse Reactions: Allergies codeine Allergy (Mild, Verified 06/04/19 10:30) roaring sounds, hives Penicillins Allergy (Mild, Verified 06/04/19 10:30) hives Medications to take at Discharge citalopram 20 mg tablet 20 mg PO QDAY 10/09/17 aspirin 81 mg tablet,delayed release 81 mg PO DAILY #30 tab 06/24/18 oxybutynin chloride 5 mg tablet,extended release 24 hr 5 mg PO QDAY tab 06/24/18 pravastatin 40 mg tablet 40 mg PO DAILY 06/24/18 potassium chloride 10 mEq tablet,extended release 20 meq PO DAILY tab 08/15/18 amlodipine 10 mg tablet 10 mg PO DAILY #90 ea 05/26/19 furosemide 40 mg tablet 80 mg PO DAILY #180 ea 05/26/19 Dexamethasone [Decadron] 6 mg PO DAILY@0800 #5 tab 12/21/19 Losartan Potassium [Cozaar] 100 mg PO DAILY #30 tab 12/21/19 The following prescriptions were given: Losartan Potassium [Cozaar] 100 mg PO DAILY #30 tab Transmission Status: Pending to [id number] Dexamethasone [Decadron] 6 mg PO DAILY@0800 #5 tab Transmission Status: Pending to [id number] Primary Care Physician: Parish Plascencia Chi, MD [Primary Care Provider] - Please follow up with your Primary Care Physician in: 1-2 weeks after quarantine is complete Test Results: Test results from this visit will be discussed in further detail at your follow- up appointment, if applicable.
[2019-12-21 09:16] LABS: Bedside Glucose 102 mg/dL (70-110)
--- NOTE | 2019-12-21 09:18 | DS.PCM_ITS ---
Discharge Date and Diagnosis - Problem List Patient Problems: Active and Suspected Problems (Last Reviewed 12/16/19 @ 23:[address] Gilberto Rockwell DO) Acute respiratory failure with hypoxia (Acute) Suspected COVID-19 virus infection (Acute) COVID-19 (Acute) Date of Admission: 12/16/19 Date of Discharge: 12/21/19 - Primary Discharge Diagnosis Acute Problems: Active Problems (Last Reviewed 12/16/19 @ 23:[address] Gilberto Rockwell DO) Acute respiratory failure with hypoxia (Acute) Suspected COVID-19 virus infection (Acute) COVID-19 (Acute) - Secondary Discharge Diagnosis Chronic Problems: Chronic Problems (Last Reviewed 12/16/19 @ 23:[address] Gilberto Rockwell DO) SOB (shortness of breath) (Chronic) Pulmonary hypertension (Chronic) Essential hypertension (Chronic) Urinary incontinence (Chronic) UA and culture and start oxybutinin Mood disorder (Chronic) Hyperlipidemia (Chronic) Hospital Course and Treatment Imaging Results: STUDY: X-RAY CHEST REASON FOR EXAM: Female, 69 years old. Dyspnea, shortness of breath. TECHNIQUE: Single AP portable view of the chest. COMPARISON: December 15, 2019 FINDINGS: There are monitoring devices. There are moderate bilateral groundglass and airspace increased opacities of the lungs. There is no demonstrated pleural abnormality. Normal size heart. Normal mediastinum and azra. Normal visualized pulmonary arteries. Normal visualized aortic arch and descending thoracic aorta. There are diffuse degenerative changes of the visualized thoracic spine. Normal visualized ribs, clavicles, and shoulders. There is no demonstrated abnormality of the visualized soft tissue structures of the upper abdomen. RAD/Chest 1 View (Portable) IMPRESSION: Bilateral pneumonia. CCM/Pulm Operations: None Procedures: None Summary of Care Provided: Ms Berg is a 69 yo female who presented to the ED on 12/16/2019 with a several day h/o SOB. She was seen by her PCP in his office on the day of admission and a COVID test was done but was pending on presentation. She had no known h/o exposure but had been around a friends who works with the [employer]. Her has been ill too. She came to the ED 2/2 having more severe SOB than she had been experiencing previously. In the ED her SpO2 was 66% on RA and she was placed on Airvo HFNC. She was admitted to the ICU where she received supplemental O2 with nocturnal CPAP, Decadron, 5 days of Remdesivir and convalescent plasma. SHe had been on Xarelto at home for a DVT, which was continued at d/c, but was placed on Lovenox and then Eliquis during her hospit alization. Other than her hypoxemia, she was medically stable throughout her stay. She was able to be weaned off O2 by the time of d/c. She was discharged on Decadron for 5 more days and placed back on her home Xarelto which she should continue for at least 21 days after d/c. She was noted to be on Lasix and a combination BP pill of Losartan/HCTZ. At discharge, since she is already on 1 diuretic daily, I discontinued the HCTZ from her combo pill and sent her home just on the Losartan. She will need her BP reassessed after she is off of the Decadron as her pressures did run above goal at times during her hospitalization. She was discharges home in stable condition and instructed to self quarantine through 12/25/2019. Discharge Dx Acute Hypoxic Respiratory Failure 2/2 COVID 19 Hypokalemia Hyperglycemia HTN L LE DVT Recent R Bimalleolar fx PAH HESHAM HPL Depression Urinary incontinence Obesity D/C Time > 31' Patient Problems: Active and Suspected Problems (Last Reviewed 12/16/19 @ 23:[address] Gilberto Rockwell, DO) Acute respiratory failure with hypoxia (Acute) Suspected COVID-19 virus infection (Acute) COVID-19 (Acute) Subjective: Pt is off O2 at rest and wearing CPAP at HS. States that she feels much better. - Physical Exam Vitals/I&O's: Vital Signs Temp Pulse Resp BP Pulse Ox 97.1 F L 61 18 134/75 H 93 12/21/19 09:10 12/21/19 09:10 12/21/19 09:10 12/21/19 09:10 12/21/19 09:10 Oxygen Flow Rate (L/min) 1 Oxygen Delivery Method Room Air Weight: 104.9 kg Body Mass Index (BMI) 36.2 Intake and Output for Last 24 Hours 12/19/19 12/20/19 12/21/19 23:59 23:59 23:59 Intake Total 1522 / 1522 950 / 950 Output Total 1850 / 1850 1800 / 1800 Balance -328 / -328 -850 / -850 General: Alert, Oriented x3, Cooperative, No apparent distress, Well developed, Well nourished, - - Older WF sitting up in bed watching TV, just waking up HEENT: Atraumatic, PERRLA, EOMI, Normocephalic, EAC Clear Oral: Moist Mucosa, No Gingival or Mucosal Lesions/ Ulcerations Neck: Supple, No JVD, Trachea Midline, Thyroid Normal Size and Texture Lungs: Clear to auscultation, Normal air movement, No rhonchi, No wheeze, No rales Cardiovascular: Regular rate, Regular Rhythm, Normal S1, Normal S2, No murmurs, No Ectopic Activity, No rub noted, No Gallop Abdomen: Bowel Sounds Present, Soft, Non Tender, Non-Distended, Obese, No hernias noted Extremities: No clubbing, No cyanosis, No edema, Capillary Refill Less than 3 Seconds, Peripheral Pulses Normal Skin: No rashes, No breakdown Musculoskeletal: No Tenderness to Palpation of Joints or Extremities, No Muscle Wasting, Arthritic Changes Lymphatic: No Cervical, Supraclavicular, or Inguinal Adenopathy Neurological: Cranial nerves II-XII grossly intact, Neuro grossly intact, Muscle tone normal, Coordination normal Psych/Mental Status: Normal Affect, Appropriate, Alert and oriented to time, place, person, mood and affect Microbiology Past 72 Hours 12/16/19 21:30 Blood Culture (Wb) - Anticubital Right Blood Culture - Preliminary No growth in 48 hours. 12/16/19 21:30 Blood Culture (Wb) - Left Hand Blood Culture - Preliminary No growth in 48 hours. 12/16/19 22:30 Urine, Clean Catch Urine Culture - Final Culture exhibits no growth. Laboratory Results 12/20/19 09:00: POC Glucose 106 12/20/19 12:54: POC Glucose 142 H 12/20/19 17:01: POC Glucose 275 H 12/20/19 21:23: POC Glucose 215 H 12/21/19 03:15: WBC 6.1, RBC 4.56, Hgb 14.3, Hct 43.1, MCV 94.5, MCH 31.4, MCHC 33.2, RDW Std Deviation 42.0, RDW Coeff of Kristie 12.0, Plt Count 342, MPV 10.2 12/21/19 03:15: Sodium 140, Potassium 3.8, Chloride 106, Carbon Dioxide 30.0, Anion Gap 4 L, BUN 22 H, Creatinine 0.59, Estim Creat Clear Calc 53.56, Est GFR (MDRD) Af Amer 130, Est GFR (MDRD) Non-Af 107, BUN/Creatinine Ratio 37.4 H, Glucose 168 H, Calcium 8.0 L, Total Bilirubin 0.50, AST 17, ALT 31, Alkaline Phosphatase 52, Total Protein 6.7, Albumin 3.1 L, Globulin 3.6, Albumin/Globulin Ratio 0.9 12/21/19 09:07: POC Glucose 102 Current Medications Acetaminophen (Acetaminophen 325 Mg Tablet) 650 mg PO Q6H PRN PRN PRN Reason: Pain Score 1-10/Temp > 100.7 F Last Admin: 12/19/19 16:59 Dose: 650 mg Documented by: Albuterol Sulfate (Albuterol 2.5 Mg/3 Ml Vial.Neb.) 2.5 mg INHALATION Q2H PRN PRN PRN Reason: SHORTNESS OF BREATH Amlodipine Besylate (Amlodipine 10 Mg Tablet) 10 mg PO DAILY [facility] Last Admin: 12/20/19 10:13 Dose: 10 mg Documented by: Apixaban (Apixaban 5 Mg Tablet) 10 mg PO BID [facility] Last Admin: 12/20/19 21:24 Dose: 10 mg Documented by: Aspirin (Aspirin E.C. 81 Mg Tablet) 81 mg PO DAILY [facility] Last Admin: 12/20/19 10:13 Dose: 81 mg Documented by: Citalopram Hydrobromide (Citalopram 20 Mg Tablet) 20 mg PO DAILY [facility] Last Admin: 12/20/19 10:13 Dose: 20 mg Documented by: Dexamethasone (Dexamethasone 4 Mg Tablet) 6 mg PO DAILY@0800 [facility] Stop: 12/26/19 08:01 Last Admin: 12/20/19 10:13 Dose: 6 mg Documented by: Dextrose (Dextrose 50%-Water 25 Gm/50 Ml Disp.Syrin) 0 gm IV X1 PRN; Protocol PRN Reason: Hypoglycemia Furosemide (Furosemide 80 Mg Tablet) 80 mg PO DAILY [facility] Last Admin: 12/20/19 10:14 Dose: 80 mg Documented by: Glucagon (Glucagon 1 Mg/Ml Syringe) 1 mg IM .X1 PRN PRN Reason: Hypoglycemia Guaifenesin (Guaifenesin 600 Mg Tablet) 600 mg PO BID [facility] Last Admin: 12/20/19 21:24 Dose: 600 mg Documented by: Sodium Chloride () 250 mls @ 15 mls/hr IV .[id number] PRN PRN Reason: Saline Flush Last Infusion: 12/19/19 20:00 Dose: 0 mls/hr Documented by: Sodium Chloride () 250 mls @ 15 mls/hr IV .[id number] PRN PRN Reason: Additional IVPB Infusion Remdesivir (Investigational) (100 mg/ Sodium Chloride) 250 mls @ 125 mls/hr IV DAILY [facility]; Protocol Stop: 12/21/19 11:59 Last Infusion: 12/20/19 12:14 Dose: Infused Documented by: Insulin Human Lispro (Insulin Lispro 100 Unit/Ml Insuln.Pen) 0 unit SC ACHS [facility]; Protocol Last Admin: 12/20/19 21:25 Dose: 2 units Documented by: Losartan Potassium (Losartan Potassium 100 Mg Tablet) 100 mg PO DAILY [facility] Last Admin: 12/20/19 10:13 Dose: 100 mg Documented by: Melatonin (Melatonin 3 Mg Tablet) 3 mg PO QHS PRN PRN Reason: INSOMNIA Last Admin: 12/18/19 20:30 Dose: 3 mg Documented by: Ondansetron HCl (Ondansetron 4 Mg/2 Ml Vial) 4 mg IV Q8H PRN PRN PRN Reason: NAUSEA/VOMITING Last Admin: 12/18/19 11:46 Dose: 4 mg Documented by: Potassium Chloride (Potassium Chloride 20 Meq Tablet) 20 meq PO DAILY [facility] Last Admin: 12/20/19 10:13 Dose: 20 meq Documented by: Pravastatin Sodium (Pravastatin 40 Mg Tablet) 40 mg PO QHS [facility] Last Admin: 12/20/19 21:24 Dose: 40 mg Documented by: Senna/Docusate Sodium (Senna/Docusate Sodium 1 Tablet) 2 tablet PO BID PRN PRN PRN Reason: Constipation Last Admin: 12/19/19 09:51 Dose: 2 tablet Documented by: Sodium Chloride (0.9% Saline Lock 10 Ml Syringe) 10 - 40 ml IV UD PRN PRN Reason: SALINE FLUSH Last Admin: 12/17/19 09:20 Dose: 10 ml Documented by: Tolterodine Tartrate (Tolterodine Tartrate 2 Mg Cap.Sa) 2 mg PO DAILY [facility] Last Admin: 12/20/19 10:13 Dose: 2 mg Documented by: Discharge Activity: Return to Normal Activity, No Restrictions, [address], - - Please self quarantine through 12/24 Home Medications: Medications to take at Discharge citalopram 20 mg tablet 20 mg PO QDAY 10/09/17 aspirin 81 mg tablet,delayed release 81 mg PO DAILY #30 tab 06/24/18 oxybutynin chloride 5 mg tablet,extended release 24 hr 5 mg PO QDAY tab 06/24/18 pravastatin 40 mg tablet 40 mg PO DAILY 06/24/18 potassium chloride 10 mEq tablet,extended release 20 meq PO DAILY tab 08/15/18 amlodipine 10 mg tablet 10 mg PO DAILY #90 ea 05/26/19 furosemide 40 mg tablet 80 mg PO DAILY #180 ea 05/26/19 Dexamethasone [Decadron] 6 mg PO DAILY@0800 #5 tab 12/21/19 Losartan Potassium [Cozaar] 100 mg PO DAILY #30 tab 12/21/19 Rivaroxaban [Xarelto] 20 mg PO DAILY #30 tablet 12/21/19 Following Prescriptions Were Given to Patient: Losartan Potassium [Cozaar] 100 mg PO DAILY #30 tab Transmission Status: Pending to [facility] Dexamethasone [Decadron] 6 mg PO DAILY@0800 #5 tab Transmission Status: Pending to [id number] Primary Care Physician: Parish Plascencia Chi, MD [Primary Care Provider] - Please follow up with your Primary Care Physician in: 1-2 weeks after quarantine is complete Medical Necessity - Tobacco Use Smoking Status: Never smoker Meaningful Use Info Meaningful Use Diagnoses (Choose all that apply): None applicable Inpatient E&M: 22067 Disch Hosp
[2019-12-21] MEDS: amLODIPine 10 MG Tablet PO (10:16)
[2019-12-21] MEDS: APIXABAN 5 MG TABLET 10 MG PO (10:16)
[2019-12-21] MEDS: dexAMETHasone 4 MG Tablet 6 MG PO (10:16)
[2019-12-21] MEDS: Losartan Potassium 100 MG Tablet PO (10:17)
[2019-12-21] MEDS: Aspirin E.C. 81 MG Tablet PO (10:17)
[2019-12-21] MEDS: guaiFENesin 600 MG Tablet PO (10:17)
[2019-12-21] MEDS: Citalopram 20 MG Tablet PO (10:17)
[2019-12-21] MEDS: Tolterodine Tartrate 2 MG CAP.SA PO (10:17)
[2019-12-21] MEDS: Furosemide 80 MG Tablet PO (10:17)
--- NOTE | 2019-12-22 16:04 | CASEMGMT ---
NEHEMIAH DICKSON Discharge Follow-up Phone Call: EMELYN: Charleen Strata: 3 Call Date: 12/22/2019 Discharge Date: 12/21/2019 Time of Call: 1550 Admitting Diagnosis: COVID-19 Discharge follow-up call placed to pt. Pt states she has been feeling better since discharge but continues to not have any energy. Pt states she is resting and trying to not overdo it. Pt states she has been able to remain in quarantine with her [id number] and [id number] picking up items and dropping them off at the front door without entering the home. Pt states she picked up her prescriptions at [facility] yesterday and they were able to place them in the trunk to prevent contact. Discussed Xarelto prescription. Pt states she was taking this prior to admission. Pt read label and dosage is the same as prior to admission. Pt states there is one refill noted to remain. Discussed follow-up appointment which does not appear to have been made prior to pt's discharge. Clarified for pt that she will need to call and schedule the appointment for 1-2 weeks after her quarantine has been completed. Pt states she will do so. No new prescription for Xarelto was sent at discharge. Encouraged pt to use her refill and to discuss the continuation of the medication with her PCP at her follow-up appointment. Pt agreeable. States she is able to afford this medication now that her deductible has been met and it is now $38 for a 30 day supply. Asked patient about her BP. She states she has not been taking it but states according to how she is feeling she can tell that it has been alright. Pt denies any issues with shortness of breath although states her chest feels tight for which she has been doing deep breathing exercises. Pt denies any further questions or concerns. Efe Morse RN CM
== END 2019-12-21 14:05 | disposition home or self-care (01) | DRG 177 ==
LOC: ED 22:00 → ICU 23:53
PROVIDERS: Internal Medicine Critical Care Medicine; Internal Medicine Infectious Disease; Emergency Provider Emergency Medicine; PCP Family Medicine Geriatric Medicine; Visit Provider Internal Medicine
DX: U07.1 COVID-19 (principal); J96.01 Acute respiratory failure with hypoxia; J12.89 Other viral pneumonia; I10 Essential (primary) hypertension; E78.5 Hyperlipidemia, unspecified; F32.9 Major depressive disorder, single episode, unspecified; E87.6 Hypokalemia; E66.9 Obesity, unspecified; G47.33 Obstructive sleep apnea (adult) (pediatric); I27.21 Secondary pulmonary arterial hypertension; N39.41 Urge incontinence; R73.9 Hyperglycemia, unspecified; T38.0X5A Adverse effect of glucocorticoids and synthetic analogues, initial encounter; Z68.36 Body mass index [BMI] 36.0-36.9, adult; Z86.718 Personal history of other venous thrombosis and embolism; Z79.01 Long term (current) use of anticoagulants; Z79.82 Long term (current) use of aspirin; Z79.899 Other long term (current) drug therapy; Z23 Encounter for immunization
CPT/HCPCS: 36415; 36600; 71045; 71046; 80048; 80053; 81001; 82803; 82962; 83605; 83615; 84145; 84484; 85025; 85027; 85379; 85384; 85610; 85730; 86140; 86850; 86900; 86901; 87040; 87086; 87088; 87449; 87635; 87804; 93005; 94640; 94660; 97116; 97162; 97166; 97530; 97802; 99281; C9803; G0008; J7030; J7050; P9612; 90686; A4216; J0696; J2405; U0003

== ENCOUNTER → 2020-01-14 12:43 | Outpatient (CLI) | payer MEDICARE, OTHER, SELFPAY ==
[2019-12-17 00:26] VITALS: BMI 36.2
--- NOTE | 2020-01-14 12:46 | VDLE_ITS ---
Reason For Study: Edema RIGHT GSV is normal. CFV is compressible, spontaneous, phasic, competent and demonstrates normal augmentation. FV is compressible, spontaneous, phasic, competent and demonstrates normal augmentation. POP V is compressible, spontaneous, phasic, competent and demonstrates normal augmentation. T/P Trunk is compressible. PTV is compressible. RT PerV is compressible. Procedure This is a venous duplex using B-mode, color flow and spectral Doppler. Exam performed in department. Compared to 09/24/2019. A preliminary report was called and/or faxed to [facility]. Interpretation Summary Deep veins of the right lower extremity are patent and compressible segmentally. There is no evidence of right lower extremity deep vein thrombosis. Valvular competence appears intact within the proximal deep venous system on the right . The right great saphenous vein appears patent and compressible segmentally. Ordering Physician: Parish Plascencia Referring Physician: Parish Plascencia Chi Performed By: Tawnya Chino RVT
== END ==
PROVIDERS: PCP Family Medicine Geriatric Medicine; Referring Provider Family Medicine Geriatric Medicine; Visit Provider Family Medicine Geriatric Medicine
DX: R60.0 Localized edema (principal)
CPT/HCPCS: 93970

== ENCOUNTER → 2020-01-27 12:58 | Outpatient (CLI) | payer MEDICARE, OTHER, SELFPAY ==
[2019-12-17 00:26] VITALS: BMI 36.2
[2020-01-27 14:23] LABS: Absolute Lymphocyte Count 2.03 X10^3/uL (0.83-4.51); Absolute Neutrophil Count 5.9 X10^3/uL (2.0-7.7); Basophil# 0.03 X10^3/uL; Basophil% 0.3 % (0-1); Eosinophil# 0.03 X10^3/uL; Eosinophils% 0.3 % (0-5); Hematocrit 44.9 % (37-47); Hemoglobin 14.5 g/dL (12.0-15.0); Lymphocyte # 2.03 X10^3/ul (4.0); Lymphocyte % 23.2 % (19-41); Mean Corp Hgb Conc 32.3 g/dL (32-36); Mean Corpuscular Hgb 31.1 pg (27.0-32.0); Mean Corpuscular Volume 96.4 fL (81-99); Mean Platelet Vol. 9.7 fl (6.2-12.0); Monocyte# 0.72 X10^3/uL; Monocyte% 8.2 % (0-10); NRBC Flagged by Analyzer 0 % (0-5); Neutrophil # 5.92 X10^3/uL (2.7-7.7); Neutrophil % 67.7 % (47-70); Platelet Count 477 K/mm3 (150-450); RBC Distribution Width CV 13.2 % (11.6-14.6); RBC Distribution Width SD 47.1 fl (35.1-43.9); Red Blood Count 4.66 M/mm3 (4.2-5.4); White Blood Count 8.8 K/mm3 (4.4-11.0)
[2020-01-27 14:39] LABS: Vitamin D,25 Hydroxy 22.1 ng/mL
[2020-01-27 14:50] LABS: ALB/GLOB Ratio 1.2 RATIO (0.9-2.4); AST(SGOT) 11 U/L (15-37); Alanine Aminotransfer ALT/SGPT 30 U/L (13-56); Albumin, Serum 4.2 g/dL (3.2-5.0); Alkaline Phosphatase 75 U/L (45-117); Anion Gap 5 (5-15); BUN 20 mg/dL (7-18); Calcium,Total 9.4 mg/dL (8.5-10.1); Chloride 104 mmol/L (98-107); EST Glomerular Filtration Rate 58 mL/min (>60); Est Glom Filt Rate - Afr Amer 71 mL/min (>60); Globulin 3.4 g/dL (2.2-4.2); Glucose 83 mg/dL (74-106); Potassium 3.7 mmol/L (3.5-5.1); Protein, Total 7.6 g/dL (6.4-8.2); Sodium Level 141 mmol/L (136-145); Thyroid Stim Hormone (TSH) 2.29 uIU/mL (0.358-3.74)
== END ==
PROVIDERS: PCP Family Medicine Geriatric Medicine; Visit Provider Family Medicine Geriatric Medicine
DX: I10 Essential (primary) hypertension (principal); E55.9 Vitamin D deficiency, unspecified
CPT/HCPCS: 36415; 80053; 82306; 84443; 85025

== ENCOUNTER → 2020-05-27 14:59 | Outpatient (CLI) | payer MEDICARE, OTHER, SELFPAY ==
[2019-12-17 00:26] VITALS: BMI 36.2
[2020-05-27 15:30] LABS: Absolute Lymphocyte Count 1.53 X10^3/uL (0.83-4.51); Absolute Neutrophil Count 7.6 X10^3/uL (2.0-7.7); Basophil# 0.02 X10^3/uL; Basophil% 0.2 % (0-1); Hematocrit 46.8 % (37-47); Hemoglobin 15.8 g/dL (12.0-15.0); Lymphocyte # 1.53 X10^3/ul (4.0); Lymphocyte % 14.8 % (19-41); Mean Corp Hgb Conc 33.8 g/dL (32-36); Mean Corpuscular Hgb 31.9 pg (27.0-32.0); Mean Corpuscular Volume 94.4 fL (81-99); Mean Platelet Vol. 9.5 fl (6.2-12.0); Monocyte% 9.7 % (0-10); NRBC Flagged by Analyzer 0 % (0-5); Neutrophil # 7.64 X10^3/uL (2.7-7.7); Neutrophil % 74.1 % (47-70); Platelet Count 375 K/mm3 (150-450); RBC Distribution Width CV 12.3 % (11.6-14.6); RBC Distribution Width SD 42.4 fl (35.1-43.9); Red Blood Count 4.96 M/mm3 (4.2-5.4); White Blood Count 10.3 K/mm3 (4.4-11.0)
[2020-05-27 15:55] LABS: ALB/GLOB Ratio 1.1 RATIO (0.9-2.4); AST(SGOT) 18 U/L (15-37); Alanine Aminotransfer ALT/SGPT 31 U/L (13-56); Alkaline Phosphatase 68 U/L (45-117); Anion Gap 7 (5-15); BUN 17 mg/dL (7-18); BUN/Creat Ratio 19.8 RATIO (10-20); Calcium,Total 9.2 mg/dL (8.5-10.1); Chloride 104 mmol/L (98-107); Creatinine, Serum 0.86 mg/dL (0.55-1.02); EST Glomerular Filtration Rate 70 mL/min (>60); Est Glom Filt Rate - Afr Amer 84 mL/min (>60); Globulin 3.7 g/dL (2.2-4.2); Glucose 105 mg/dL (74-106); Potassium 3.6 mmol/L (3.5-5.1); Protein, Total 7.7 g/dL (6.4-8.2); Sodium Level 140 mmol/L (136-145); Thyroid Stim Hormone (TSH) 1.39 uIU/mL (0.358-3.74)
== END ==
PROVIDERS: PCP Family Medicine Geriatric Medicine; Visit Provider Family Medicine Geriatric Medicine
DX: G93.40 Encephalopathy, unspecified (principal); R53.83 Other fatigue
CPT/HCPCS: 36415; 80053; 84443; 85025

== ENCOUNTER → 2020-05-27 15:18 | Outpatient (CLI) | payer MEDICARE, OTHER, SELFPAY ==
[2019-12-17 00:26] VITALS: BMI 36.2
--- NOTE | 2020-05-27 15:23 | CT_ITS ---
EXAMINATION : Head CT w/out contrast HISTORY : memory loss COMPARISON : None. TECHNIQUE : Multiple contiguous axial images were obtained from the skull base to the vertex without intravenous contrast. A radiation dose optimization technique was used for this scan. FINDINGS : There is no evidence for acute intracranial hemorrhage, mass effect, or midline shift. There is no extra-axial fluid collection. There are periventricular white matter changes consistent with chronic microvascular ischemic disease There is normal moon-white differentiation, without CT evidence of acute ischemia or infarct. The skull base and calvarium are unremarkable. The orbits are unremarkable. Small amount of mucoid debris seen within the right maxillary sinus. The remaining paranasal sinuses are clear. The mastoid air cells are well-aerated. The soft tissues are unremarkable. CT/Brain/Head without Contrast IMPRESSION: No acute intracranial abnormality. Mild chronic ischemic changes of the brain. Right maxillary sinusitis. Electronically Signed: Alex Pino MD at 16:22 EDT Tel , Service support ,
--- NOTE | 2020-05-27 15:23 | CT_ITS ---
STUDY: CTA CHEST REASON FOR EXAM: Female, 70 years old. SOB RADIATION DOSAGE (If Supplied By Facility): CTDIvol = ( 13.475 ) mGy, DLP = ( 522.84 ) mGycm TECHNIQUE: The examination was performed with the intravenous administration of IV 100mL Isovue-370. Post-processing of the angiographic images was performed, with multiplanar reformation and 3D reconstruction. Individualized dose optimization techniques were used for this CT. COMPARISON: None. FINDINGS: Normal enhancement of the main pulmonary artery and right and left pulmonary arteries. Normal enhancement of the bilateral peripheral pulmonary arteries. There is no demonstrated pulmonary embolism. Normal thoracic aorta and visualized great vessels. There is no demonstrated aortic dissection. Normal heart and pericardium. Normal mediastinum. Normal hilar regions. Normal visualized trachea and bronchi. The lungs are well expanded. Normal pulmonary parenchyma. Normal pleura. Normal chest wall structures. Normal osseous structures. Normal visualized upper abdomen. CT/CTA Chest W/WO Contrast IMPRESSION: Normal CTA chest examination, without a demonstrated pulmonary embolism or arterial dissection. Electronically Signed: Adonis Oliva MD at 16:44 EDT , Service support ,
[2020-05-27 15:51] LABS: CREATININE FINGERSTICK 1.4 mg/dL (0.55-1.02)
== END ==
PROVIDERS: PCP Family Medicine Geriatric Medicine; Referring Provider Family Medicine Geriatric Medicine; Visit Provider Family Medicine Geriatric Medicine
DX: I67.82 Cerebral ischemia (principal); J32.0 Chronic maxillary sinusitis; R41.3 Other amnesia; R06.02 Shortness of breath; G93.40 Encephalopathy, unspecified; R53.83 Other fatigue
CPT/HCPCS: 36415; 70450; 71275; 80053; 84443; 85025; Q9967; A4216

== ENCOUNTER → 2020-05-31 | Outpatient (CLI) | payer MEDICARE, OTHER, SELFPAY ==
[2019-12-17 00:26] VITALS: BMI 36.2
== END | disposition home or self-care (01) ==
LOC: LABSPEC 14:10
PROVIDERS: PCP Family Medicine Geriatric Medicine; Referring Provider Family Medicine Geriatric Medicine; Visit Provider Family Medicine Geriatric Medicine
DX: R06.02 Shortness of breath (principal)
CPT/HCPCS: 87635; C9803; U0002

== ENCOUNTER → 2020-07-27 12:53 | Outpatient (CLI) | payer MEDICARE, OTHER, SELFPAY ==
[2019-12-17 00:26] VITALS: BMI 36.2
[2020-07-27 14:45] LABS: Absolute Lymphocyte Count 1.52 X10^3/uL (0.83-4.51); Absolute Neutrophil Count 3.6 X10^3/uL (2.0-7.7); Basophil# 0.03 X10^3/uL; Basophil% 0.5 % (0-1); Eosinophil# 0.07 X10^3/uL; Eosinophils% 1.2 % (0-5); Hematocrit 42.9 % (37-47); Lymphocyte # 1.52 X10^3/ul (0.83-4.51); Lymphocyte % 26.3 % (19-41); Mean Corp Hgb Conc 32.6 g/dL (32-36); Mean Corpuscular Volume 95.1 fL (81-99); Mean Platelet Vol. 10.2 fl (6.2-12.0); Monocyte# 0.56 X10^3/uL; Monocyte% 9.7 % (0-10); NRBC Flagged by Analyzer 0 % (0-5); Neutrophil % 62.1 % (47-70); Platelet Count 356 K/mm3 (150-450); RBC Distribution Width CV 12.5 % (11.6-14.6); RBC Distribution Width SD 43.7 fl (35.1-43.9); Red Blood Count 4.51 M/mm3 (4.2-5.4); White Blood Count 5.8 K/mm3 (4.4-11.0)
[2020-07-27 15:14] LABS: ALB/GLOB Ratio 1.1 RATIO (0.9-2.4); AST(SGOT) 21 U/L (15-37); Alanine Aminotransfer ALT/SGPT 34 U/L (13-56); Albumin, Serum 3.7 g/dL (3.2-5.0); Alkaline Phosphatase 59 U/L (45-117); Anion Gap 6 (5-15); BUN 17 mg/dL (7-18); Calcium,Total 8.9 mg/dL (8.5-10.1); Chloride 105 mmol/L (98-107); EST Glomerular Filtration Rate 66 mL/min (>60); Est Glom Filt Rate - Afr Amer 80 mL/min (>60); Globulin 3.4 g/dL (2.2-4.2); Glucose 120 mg/dL (74-106); Protein, Total 7.1 g/dL (6.4-8.2); Sodium Level 142 mmol/L (136-145); Thyroid Stim Hormone (TSH) 1.46 uIU/mL (0.358-3.74)
[2020-07-29 12:02] LABS: Vitamin D,25 Hydroxy 19.3 ng/mL
== END ==
PROVIDERS: PCP Family Medicine Geriatric Medicine; Visit Provider Family Medicine Geriatric Medicine
DX: I10 Essential (primary) hypertension (principal); E55.9 Vitamin D deficiency, unspecified
CPT/HCPCS: 36415; 80053; 82306; 84443; 85025

== ENCOUNTER → 2020-10-27 09:07 | Outpatient (CLI) | payer MEDICARE, OTHER, SELFPAY ==
[2020-10-27 09:12] LABS: Bacteria 0 SEEN /hpf (None Seen); Mucous, Urine 0 SEEN /hpf (<or=2+); Red Blood Cells-Urine 0 SEEN /hpf (0-5)
[2020-10-27 09:53] LABS: Absolute Lymphocyte Count 1.47 X10^3/uL (0.83-4.51); Absolute Neutrophil Count 3.2 X10^3/uL (2.0-7.7); Basophil# 0.03 X10^3/uL; Basophil% 0.5 % (0-1); Eosinophil# 0.17 X10^3/uL; Hemoglobin 14.7 g/dL (12.0-15.0); Lymphocyte # 1.47 X10^3/ul (0.83-4.51); Lymphocyte % 26.2 % (19-41); Mean Corp Hgb Conc 33.4 g/dL (32-36); Mean Corpuscular Hgb 31.4 pg (27.0-32.0); Mean Platelet Vol. 10.3 fl (6.2-12.0); Monocyte# 0.72 X10^3/uL; Monocyte% 12.8 % (0-10); NRBC Flagged by Analyzer 0 % (0-5); Neutrophil # 3.22 X10^3/uL (2.7-7.7); Neutrophil % 57.3 % (47-70); Platelet Count 348 K/mm3 (150-450); RBC Distribution Width CV 12.6 % (11.6-14.6); RBC Distribution Width SD 43.2 fl (35.1-43.9); Red Blood Count 4.68 M/mm3 (4.2-5.4); White Blood Count 5.6 K/mm3 (4.4-11.0)
[2020-10-27 09:57] LABS: Color, Urine Yellow (Yellow); Glucose, Dipstick Normal (Normal); Ketone-Dipstick Negative (Negative); Leukocyte Esterase-Dipstick 100 /ul (Negative); Nitrite-Dipstick Negative (Negative); Occult Blood-Urine 10 /ul (Negative); Protein-Dipstick 15 mg/dl (Negative); Specific Gravity, Urine 1.025 (1.002-1.030); Urine Bilirubin Dipstick Negative (Negative); Urine Clarity Sl. Cloudy (Clear); Urine Urobilinogen Normal (Normal)
[2020-10-27 10:04] LABS: Squamous Epithelial Cells - UA 0-5 SEEN /hpf (5-10); White Blood Cells 5-10 SEEN /hpf (0-5)
[2020-10-27 10:05] LABS: Amorphous Sediment 1+
[2020-10-27 10:28] LABS: ALB/GLOB Ratio 1.2 RATIO (0.9-2.4); AST(SGOT) 17 U/L (15-37); Alanine Aminotransfer ALT/SGPT 32 U/L (13-56); Albumin, Serum 3.8 g/dL (3.2-5.0); Alkaline Phosphatase 56 U/L (45-117); Anion Gap 6 (5-15); BUN 23 mg/dL (7-18); BUN/Creat Ratio 29.1 RATIO (10-20); CPK Total, Creatine Kinase 205 U/L (26-192); Chloride 107 mmol/L (98-107); Creatinine, Serum 0.79 mg/dL (0.55-1.02); EST Glomerular Filtration Rate 76 mL/min (>60); Est Glom Filt Rate - Afr Amer 92 mL/min (>60); Globulin 3.2 g/dL (2.2-4.2); Glucose 147 mg/dL (74-106); Potassium 3.3 mmol/L (3.5-5.1); Sodium Level 141 mmol/L (136-145)
[2020-10-28 15:16] LABS: Aldolase 4.5 U/L (3.3-10.3)
== END ==
PROVIDERS: PCP Family Medicine Geriatric Medicine; Referring Provider Dermatology; Visit Provider Dermatology
DX: L30.9 Dermatitis, unspecified (principal); M32.10 Systemic lupus erythematosus, organ or system involvement unspecified
CPT/HCPCS: 36415; 80053; 81001; 82085; 82550; 85025; 86038

== ENCOUNTER 2020-11-08 18:25 | Emergency (ER) | payer MEDICARE, OTHER, SELFPAY ==
[2020-11-08 18:26] VITALS: BP 136/90; PULSE 92; RESP 16; TEMP 36.6; BMI 36.0
--- NOTE | 2020-11-08 19:37 | EDS_ITS ---
HPI History of Present Illness Chief Complaint: Laceration Informant: patient and spouse/S.O. Onset/Context/Timing Onset: Today and Hours Mechanism/Context: other Current Severity: Moderate Maximum Severity: Moderate Narrative Narrative: 70-year-old female states her tetanus is up-to-date within the last 1 to 2 years. Was attacked by her pet potbelly pig that weighs around 150 pounds. She was bitten on the right hand and forearm left wrist and significant bite laceration of the left lower leg. This occurred several hours ago. She states her tetanus is up-to-date. She states this is happened before. Tetanus Immunization: <5 years Prior similar symptoms: Yes Recent Illness/Hospitalization: No [facility] Medical History (Updated 11/09/20 @ 00:[address] Clifford Khan MD) Edema Essential hypertension History of left heart catheterization (LHC) (~07/19/18) Hyperlipidemia Hypertension Mood disorder HESHAM (obstructive sleep apnea) Osteoarthritis Pulmonary hypertension Sebaceous cyst Home Medications citalopram 20 mg tablet 20 mg PO QDAY 10/09/17 [History Last Taken 12/16/19] aspirin 81 mg tablet,delayed release 81 mg PO DAILY #30 tab 06/24/18 [Rx Last Taken 12/16/19] oxybutynin chloride 5 mg tablet,extended release 24 hr 5 mg PO QDAY tab 06/24/18 [History Last Taken 12/16/19] pravastatin 40 mg tablet 40 mg PO DAILY 06/24/18 [History Last Taken 12/16/19] potassium chloride 10 mEq tablet,extended release 20 meq PO DAILY tab 08/15/18 [History Last Taken 12/16/19] dexamethasone 6 mg PO DAILY@0800 #5 tab 12/21/19 [Rx Last Taken Unknown] rivaroxaban 20 mg PO DAILY #30 tab 12/21/19 [Rx Last Taken Unknown] amlodipine 10 mg tablet 10 mg PO DAILY #90 ea 08/16/20 [Rx Last Taken Unknown] furosemide 40 mg tablet 80 mg PO DAILY #180 ea 08/16/20 [Rx Last Taken Unknown] bupropion HCl 150 mg PO BID 11/08/20 [History Last Taken Unknown] olmesartan-hydrochlorothiazide 1 tab PO DAILY 11/08/20 [History Last Taken Unknown] sod sulf-pot chloride-mag sulf [Sutab] 1 tab PO DAILY 11/08/20 [History Last Taken Unknown] Allergy/AdvReac Type Severity Reaction Status Date / Time codeine Allergy Mild roaring Verified 11/08/20 18:26 sounds, hives Penicillins Allergy Mild hives Verified 11/08/20 18:26 Family History Father Heart disease Hypertension Hyperlipidemia Mother Diabetes Breast cancer Heart disease Hypertension Hyperlipidemia Sister CVA (cerebral vascular accident) Surgical History exploratory surgery History of History of tonsillectomy S/P dilation and curettage S/P partial thyroidectomy S/P right knee arthroscopy Social History Smoking Status: Never smoker alcohol intake: never substance use type: does not use caffeine: Yes eating out: rarely or never what type of physical activity do you participate in: none seatbelt use: always do you feel safe at home: Yes additional social history: [employer] at [employer] Patient is retired ROS ROS ED ROS Narrative Denies recent illness. Review of Systems ROS Unobtainable: Denies due to encephalopathy Constitutional Constitutional ED: Denies chills or fever(s) Eyes Eyes: Denies change in vision ENT ENT ED: Denies ear pain or sore throat Cardiovascular Cardiovascular: Denies chest pain Respiratory/Chest Respiratory/Chest: Denies cough or dyspnea Gastrointestinal Gastrointestinal: Denies abdominal pain, diarrhea, nausea or vomiting Genitourinary Genitourinary ED: Denies dysuria Musculoskeletal Musculoskeletal: Denies myalgias Integumentary Denies rash Neurologic Neurologic: Denies headache(s) Psychiatric Psychiatric: Denies depression Endocrine Endocrinology: Denies polyuria Hematologic/Lymphatic Hematologic/Lymphatic: Denies easy bruising Allergic/Immunologic Allergic/Immunologic ED: Denies urticaria EXAM Physical Exam Narrative Exam Narrative: 70-year-old female no acute distress. Vital signs stable afebrile. Has bite wounds to her right upper extremity and forearm. Left wrist and a significant laceration to her left lower leg. Both upper and lower extremities are neurovascularly intact. She has normal range of motion and touch sensation. There is a large laceration to the skin and subcu tissue the left lower leg. Const Vital Signs: 11/08/20 18:26 11/08/20 23:09 Temperature 97.9 F Temperature Source Temporal Pulse Rate 92 75 Respiratory Rate 16 18 Blood Pressure 136/90 H 130/78 H Blood Pressure Mean 105 95 Pulse Ox 98 Oxygen Delivery Method Room Air Positive well nourished and well developed General Appearance ED: well developed and NAD HEENT atraumatic Eyes PERRL and EOMs intact bilaterally Neck full ROM General: Negative for tenderness Chest Wall inspection of chest normal and palpation of chest normal Resp normal respiratory effort and clear to auscultation bilaterally Auscultation: Negative for rales, rhonchi or wheezes Cardio regular rhythm, S1 normal heart sound, S2 normal heart sound and no murmurs Rate: regular rate; Negative for tachycardic GI normal to inspection, nondistended, normoactive bowel sounds, non-tender and non-distended Palpation: soft Back/Spine normal to inspection; Negative for no thoracic nor lumbar tenderness General Back: Negative for CVA tenderness Thoracic Spine / Upper Back: Negative for thoracic spinal tenderness Extremity Extremity Narrative: Bite wounds to her right forearm. Left hand and wrist. And significant to her left lower leg with a large laceration on the lower amos and laterally. Neuro oriented x3, CN's II-XII intact bilaterally and moves all extremities Sensorium / Orientation: alert, oriented to person, oriented to place, oriented to time and orientation impaired; Negative for lethargic or stuporous Motor Exam: strength 5/5 throughout Psych mental status grossly normal Skin No no wounds and No no jaundice Skin Narrative: Left forearm. Left hand. Right upper extremity. Left lower leg. Wounds: wounds noted PROC Procedures Lacerations Left lower leg laceration: Length: 8 in Depth: Sub Q Shape: Linear Prep: Betadine and Shure-Clens Laceration repair: Irrigated, Lidocaine, Local, Skin sutures and Wound explored Irrigated (ml): 200 Number of Sutures/Asad: 20 Suture Information: Ethilon, Simple and 4-0 Comment: Left lower leg laceration approximately 78 inches in length. Irregular. Involve the skin and subcu tissue. Oozing of blood no pulsatile bleeding. No foreign body noted. Locally anesthetized with lidocaine. Cleaned with Thalia washed and irrigated with saline. Also cleaned with iodine and again washed out with saline. Closed using 20 simple interrupted 4-0 Ethilon sutures. Proper hemostasis and wound closure obtained. Patient was instructed on wound care. Ice and elevate. Watch for any signs of infection. She will be discharged on antibiotics both clindamycin and Cipro. Patient tolerated procedure well. She was instructed on scarring. MDM MDM MDM Narrative Medical decision making narrative: Left lower leg wounds need to be repaired. She will be given Sarona for pain. Clindamycin and Cipro. Repeat exam patient doing well at 12:20 AM. Wounds will be cleaned and dressed. Discharge Plan Triage Chief Complaint: Laceration ED Provider: Clifford Khan Dx/Rx/DC Orders Clinical Impression: Laceration, Animal bite Instructions: ED Laceration: All Closures Prescriptions: No Action citalopram 20 mg tablet 20 mg PO QDAY RF: 0 pravastatin 40 mg tablet 40 mg PO DAILY RF: 0 aspirin 81 mg tablet,delayed release (DR/EC) 81 mg PO DAILY Qty: 30 RF: 0 oxybutynin chloride [Ditropan XL] 5 mg tablet extended release 24hr 5 mg PO QDAY RF: 0 potassium chloride 10 mEq tablet extended release 20 meq PO DAILY RF: 0 dexamethasone 4 MG tablet 6 mg PO DAILY@0800 Qty: 5 RF: 0 rivaroxaban 20 MG tablet 20 mg PO DAILY Qty: 30 RF: 0 bupropion HCl 150 mg tablet sustained-release 12 hr 150 mg PO BID RF: 0 olmesartan-hydrochlorothiazide 40-12.5 mg tablet 1 tab PO DAILY RF: 0 Sutab 1.479-0.188- 0.225 gram tablet 1 tab PO DAILY RF: 0 amlodipine 10 mg tablet 10 mg PO DAILY Qty: 90 RF: 3 furosemide 40 mg tablet 80 mg PO DAILY Qty: 180 RF: 3 Primary Care Provider: Parish Plascencia Chi Referrals: Parish Plascencia Chi, MD [Primary Care Provider] - 10-14 Days suture removal Activity Restrictions/Additional Instructions: Ice and elevate your left lower leg to decrease pain, swelling and bruising. Watch for any signs of infection such as pus, redness, fever, red streaks or severe swelling is seen return. Take both antibiotics for the next 7 days clindamycin and Cipro. Stitches out in 14 days. Clean gently daily and dry gently. Apply antibiotic ointment daily. Disposition Disposition: Home, Self Care
[2020-11-08] MEDS: HYDROcodone Bitartrate/Apap 5/325 Tablet PO (20:15)
[2020-11-08] MEDS: Clindamycin HCl 150 MG Capsule 300 MG PO (20:15)
[2020-11-08 23:09] VITALS: BP 130/78; PULSE 75; RESP 18; O2SAT 98
[2020-11-09] MEDS: Lidocaine 1% (20 ml mdv) 20 ML Vial 30 ML INFILT (00:35)
[2020-11-09] MEDS: Ciprofloxacin 500 MG Tablet PO (00:35)
== END 2020-11-09 00:48 | disposition home or self-care (01) ==
PROVIDERS: Emergency Provider Emergency Medicine; PCP Family Medicine Geriatric Medicine
DX: S80.872A Other superficial bite, left lower leg, initial encounter (principal); S60.571A Other superficial bite of hand of right hand, initial encounter; S50.871A Other superficial bite of right forearm, initial encounter; S60.872A Other superficial bite of left wrist, initial encounter; W55.41XA Bitten by pig, initial encounter; Y93.9 Activity, unspecified; Y92.9 Unspecified place or not applicable; Y99.9 Unspecified external cause status; I10 Essential (primary) hypertension; I27.20 Pulmonary hypertension, unspecified; E78.5 Hyperlipidemia, unspecified; M19.90 Unspecified osteoarthritis, unspecified site; Z79.01 Long term (current) use of anticoagulants; Z79.82 Long term (current) use of aspirin; Z79.899 Other long term (current) drug therapy
CPT/HCPCS: 12005; 99284

== ENCOUNTER → 2020-11-15 | Outpatient (CLI) | payer MEDICARE, OTHER, SELFPAY ==
[2020-11-15 20:26] LABS: M R Staph aureus DNA By PCR Negative (Negative); Probe Check PASS; Specimen Processing Control PASS; Staph aureus DNA By PCR NEGATIVE (Negative)
== END | disposition home or self-care (01) ==
LOC: LABSPEC 11-16 09:52
PROVIDERS: PCP Family Medicine Geriatric Medicine; Visit Provider Family Medicine Geriatric Medicine
DX: L03.116 Cellulitis of left lower limb (principal)
CPT/HCPCS: 87070; 87077; 87205; 87640

== ENCOUNTER 2020-11-17 11:23 | Inpatient (IN) | payer MEDICARE, OTHER, SELFPAY ==
[2020-11-17 11:24] VITALS: BP 181/81; PULSE 95; RESP 15; TEMP 36.6; O2SAT 98; BMI 38.5
--- NOTE | 2020-11-17 11:53 | RAD_ITS ---
STUDY: X-RAY - LEFT TIBIA AND FIBULA REASON FOR EXAM: Female, 70 years old. ? Osteo TECHNIQUE: 4 view(s) of the tibia and fibula were obtained. COMPARISON: None. FINDINGS: Normal visualized tibia. Normal visualized fibula. Diffuse soft tissue swelling. Calcified phleboliths in the anterior lower leg. RAD/Tibia & Fibula 2 Views IMPRESSION: Soft tissue swelling. Electronically Signed: Billy Mathew MD at 13:32 EDT , Service support ,
[2020-11-17 11:56] VITALS: RESP 16
--- NOTE | 2020-11-17 11:56 | EDS_ITS ---
HPI History of Present Illness Chief Complaint: Wound Informant: patient Narrative Narrative: Patient was referred here by her physician for evaluation by another physician who she believes was named Dr. Romero. I am trying to obtain data or papers that might have been sent with her. This patient was cut bit scratched and poked by her potbelly pig recently. She was seen in the emergency department. All wounds are healing well. However, the wound on her left anterior amos started to get red. She was given clindamycin here. She followed up with her private physician. She has been on once a day antibiotics since Sunday. She states on Sunday the leg was much more swollen and red. She states the swelling is down considerably and the redness is much less now that she has been on antibiotics. She thinks she may have had a fever a day or so ago. But she is not having them now. She states there were concerns if there was something underneath the wound causing problems. [facility] Medical History (Updated 11/17/20 @ 14:[address] Ok Pete MD) Edema Essential hypertension History of left heart catheterization (LHC) (~07/19/18) Hyperlipidemia Hypertension Mood disorder HESHAM (obstructive sleep apnea) Osteoarthritis Pulmonary hypertension Sebaceous cyst Home Medications citalopram 20 mg tablet 20 mg PO QDAY 10/09/17 [History Last Taken 12/16/19] aspirin 81 mg tablet,delayed release 81 mg PO DAILY #30 tab 06/24/18 [Rx Last Taken 12/16/19] potassium chloride 10 mEq tablet,extended release 20 meq PO DAILY tab 08/15/18 [History Last Taken 12/16/19] amlodipine 10 mg tablet 10 mg PO DAILY #90 ea 08/16/20 [Rx Last Taken Unknown] furosemide 40 mg tablet 80 mg PO DAILY #180 ea 08/16/20 [Rx Last Taken Unknown] bupropion HCl 150 mg PO BID 11/08/20 [History Last Taken Unknown] olmesartan-hydrochlorothiazide 1 tab PO DAILY 11/08/20 [History Last Taken Unknown] Allergy/AdvReac Type Severity Reaction Status Date / Time codeine Allergy Mild roaring Verified 11/17/20 11:24 sounds, hives Penicillins Allergy Mild hives Verified 11/17/20 11:24 Family History Father Heart disease Hypertension Hyperlipidemia Mother Diabetes Breast cancer Heart disease Hypertension Hyperlipidemia Sister CVA (cerebral vascular accident) Surgical History exploratory surgery History of History of tonsillectomy S/P dilation and curettage S/P partial thyroidectomy S/P right knee arthroscopy Social History Smoking Status: Never smoker alcohol intake: never substance use type: does not use caffeine: Yes eating out: rarely or never what type of physical activity do you participate in: none seatbelt use: always do you feel safe at home: Yes additional social history: [id number] at [employer] Patient is retired ROS ROS ED Constitutional Constitutional ED: Reports subjective; Denies sweats Eyes Eyes: Denies blurry vision ENT ENT ED: Denies rhinorrhea Cardiovascular Cardiovascular: Denies chest pain or palpitations Respiratory/Chest Respiratory/Chest: Denies dyspnea Gastrointestinal Gastrointestinal: Denies abdominal pain, nausea or vomiting Musculoskeletal Musculoskeletal: Reports other Details: No diffuse myalgias or arthralgias. She does have sore areas related to the injury though. ; Denies arthralgias, back pain, myalgias or neck pain Integumentary Reports other Details: See history of present illness. All wounds are healing generally well. The left anterior wound is a bit open and red. It is improving though. Neurologic Neurologic: Denies headache(s) Endocrine Endocrinology: Denies polydipsia or polyuria Hematologic/Lymphatic Hematologic/Lymphatic: Denies easy bleeding or easy bruising Allergic/Immunologic Allergic/Immunologic ED: Denies urticaria EXAM Physical Exam Const Vital Signs: 11/17/20 11:24 11/17/20 11:56 11/17/20 14:05 Temperature 97.8 F Temperature Source Oral Pulse Rate 95 Respiratory Rate 15 16 16 Blood Pressure 181/81 H Blood Pressure Mean 114 Pulse Ox 98 Oxygen Delivery Method Room Air Positive well nourished and well developed Constitutional Narrative: Patient is awake alert nontoxic in appearance. General Appearance ED: well developed and NAD HEENT atraumatic Resp normal respiratory effort, no retractions and clear to auscultation bilaterally Cardio regular rate and regular rhythm GI non-tender Palpation: soft Back/Spine no CVA tenderness Extremity Extremity Narrative: Patient has multiple contusions abrasions on upper arms and left hand. None of these look red or infected. There are several contusions on lower extremities. There is a large healing flap type laceration to the left anterior amos. Lower portions of this are without significant blood supply. These are well demarcated at this point. There is a little bit of moisture at the wound at the upper end. There is some mild erythema diffusely on the anterior amos. The patient states this looks much better than a few days ago though. No posterior calf tenderness. No distended veins. Neuro Sensorium / Orientation: alert Psych mental status grossly normal Skin Skin Narrative: See above MDM MDM MDM Narrative Medical decision making narrative: Patient's blood work overall looks good. Lactate is negative. However, I talked to Dr. Acevedo and got the full story. This patient was on clindamycin and Cipro as an outpatient. She failed this and was getting worse. He has been very aggressive and got her on IV ceftriaxone and Flagyl for the last 3 days. Although there has been some improvement she still draining and having symptoms. She has two types of Enterococcus growing. He discussed the case with plastic surgery, Dr. Romero. The plan is to get her in the hospital for continued IV antibiotics and likely surgical revision of this.. I discussed the case with hospitalist. This patient has had extensive quality good care from the beginning of her injury all the way through now but she is not really recovering appropriately. With the failure of outpatient therapy I think she does need to come in the hospital. Her x-ray showed phleboliths in the anterior amos. I was concerned that these could be foreign bodies because of her history. However, when I looked at the images they look to be mostly in areas above and below the wound. I think these likely are phleboliths and not retained foreign material. Lab Data Attestation: I reviewed the patient's lab results. Labs: Laboratory Results - last 24 hr 11/17/20 11/17/20 11/17/20 12:13 12:13 12:13 WBC 6.7 RBC 4.23 Hgb 13.3 Hct 42.2 MCV 99.8 H MCH 31.4 MCHC 31.5 L RDW Std Deviation 45.4 H RDW Coeff of Kristie 12.5 Plt Count 398 MPV 9.7 Immature Gran % (Auto) 0.300 Neut % (Auto) 63.8 Lymph % (Auto) 22.9 [place] % (Auto) 9.8 Eos % (Auto) 2.7 Baso % (Auto) 0.5 Absolute Neuts (auto) 4.3 Absolute Lymphs (auto) 1.52 Nucleated RBC % 0 Sodium 143 Potassium 3.7 Chloride 112 H Carbon Dioxide 27.0 Anion Gap 4 L BUN 11 Creatinine 0.61 Estim Creat Clear Calc 50.91 Est GFR (MDRD) Af Amer 125 Est GFR (MDRD) Non-Af 103 BUN/Creatinine Ratio 18.1 Glucose 100 Lactic Acid Cancelled Calcium 8.4 L 11/17/20 13:04 WBC RBC Hgb Hct MCV MCH MCHC RDW Std Deviation RDW Coeff of Kristie Plt Count MPV Immature Gran % (Auto) Neut % (Auto) Lymph % (Auto) [place] % (Auto) Eos % (Auto) Baso % (Auto) Absolute Neuts (auto) Absolute Lymphs (auto) Nucleated RBC % Sodium Potassium Chloride Carbon Dioxide Anion Gap BUN Creatinine Estim Creat Clear Calc Est GFR (MDRD) Af Amer Est GFR (MDRD) Non-Af BUN/Creatinine Ratio Glucose Lactic Acid 1.0 Calcium Radiography Diagnostic Testing: Radiology Impression Tibia/Fibula X-Ray 11/17/20 11:53 IMPRESSION: Soft tissue swelling. Electronically Signed: Billy Mathew MD at 13:32 EDT , Service support , Discharge Plan Dx/Rx/DC Orders Clinical Impression: Failure of outpatient treatment, Wound infection Disposition Disposition: Acute Care Hospital [facility]
[2020-11-17 12:23] LABS: Absolute Lymphocyte Count 1.52 X10^3/uL (0.83-4.51); Absolute Neutrophil Count 4.3 X10^3/uL (2.0-7.7); Basophil# 0.03 X10^3/uL; Basophil% 0.5 % (0-1); Eosinophil# 0.18 X10^3/uL; Eosinophils% 2.7 % (0-5); Hematocrit 42.2 % (37-47); Hemoglobin 13.3 g/dL (12.0-15.0); Lymphocyte # 1.52 X10^3/ul (0.83-4.51); Lymphocyte % 22.9 % (19-41); Mean Corp Hgb Conc 31.5 g/dL (32-36); Mean Corpuscular Hgb 31.4 pg (27.0-32.0); Mean Corpuscular Volume 99.8 fL (81-99); Mean Platelet Vol. 9.7 fl (6.2-12.0); Monocyte# 0.65 X10^3/uL; Monocyte% 9.8 % (0-10); NRBC Flagged by Analyzer 0 % (0-5); Neutrophil # 4.25 X10^3/uL (2.7-7.7); Neutrophil % 63.8 % (47-70); Platelet Count 398 K/mm3 (150-450); RBC Distribution Width CV 12.5 % (11.6-14.6); RBC Distribution Width SD 45.4 fl (35.1-43.9); Red Blood Count 4.23 M/mm3 (4.2-5.4); White Blood Count 6.7 K/mm3 (4.4-11.0)
[2020-11-17 12:38] LABS: Anion Gap 4 (5-15); BUN 11 mg/dL (7-18); BUN/Creat Ratio 18.1 RATIO (10-20); Calcium,Total 8.4 mg/dL (8.5-10.1); Chloride 112 mmol/L (98-107); Creatinine, Serum 0.61 mg/dL (0.55-1.02); EST Glomerular Filtration Rate 103 mL/min (>60); Est Glom Filt Rate - Afr Amer 125 mL/min (>60); Estimated Creatinine Clearance 50.91 ml/min; Glucose 100 mg/dL (74-106); Potassium 3.7 mmol/L (3.5-5.1); Sodium Level 143 mmol/L (136-145)
[2020-11-17 14:05] VITALS: RESP 16
--- NOTE | 2020-11-17 14:05 | NURSING ---
DR ALEJANDRA JUAREZ
--- NOTE | 2020-11-17 14:13 | NURSING ---
MED SURG OLEE WOUND INFECTION
--- NOTE | 2020-11-17 14:47 | PCM.HP.STD ---
HPI - General General Date of Admission: 11/17/20 HPI Narrative ELY HERNÁNDEZ, is a very pleasant 70 F who about 8 days ago who was attacked by her pet potbelly pig and sustained multiple skin and soft tissue injuries with the most severe and significant being an avulsion injury involving the skin of amos on the left lower extremity. She presented to the emergency room at that time and had the avulsion sutured. Since then she has developed redness, pain swelling around the wound and skin of the flap appears to have developed a dark discoloration. She denies any purulent drainage from the wound or malodor. Denies any fever or chills. Denies any shakes or sweats. Denies any nausea vomiting. And overall she feels well. FORMERLY [facility], [facility] Medical History (Updated 11/17/20 @ 14:[address] Zayda Sahu MD) Edema Essential hypertension History of left heart catheterization (LHC) (~07/19/18) Hyperlipidemia Hypertension Mood disorder HESHAM (obstructive sleep apnea) Osteoarthritis Pulmonary hypertension Sebaceous cyst Home Medications citalopram 20 mg tablet 20 mg PO QDAY 10/09/17 [History Last Taken 12/16/19] bupropion HCl 150 mg PO BID 11/08/20 [History Last Taken Unknown] olmesartan-hydrochlorothiazide 1 tab PO DAILY 11/08/20 [History Last Taken Unknown] amlodipine 10 mg PO DAILY 11/17/20 [History Last Taken 11/16/20] aspirin 81 mg PO DAILY 11/17/20 [History Last Taken 11/16/20] furosemide 80 mg PO DAILY 11/17/20 [History Last Taken 11/16/20] potassium chloride [Klor-Con M20] 20 meq PO BID 11/17/20 [History Last Taken 11/15/20] Allergy/AdvReac Type Severity Reaction Status Date / Time codeine Allergy Mild roaring Verified 11/17/20 11:24 sounds, hives Penicillins Allergy Mild hives Verified 11/17/20 11:24 Family History Father Heart disease Hypertension Hyperlipidemia Mother Diabetes Breast cancer Heart disease Hypertension Hyperlipidemia Sister CVA (cerebral vascular accident) Surgical History exploratory surgery History of History of tonsillectomy S/P dilation and curettage S/P partial thyroidectomy S/P right knee arthroscopy Social History Smoking Status: Never smoker alcohol intake: never substance use type: does not use caffeine: Yes eating out: rarely or never what type of physical activity do you participate in: none seatbelt use: always do you feel safe at home: Yes additional social history: [email or web address] Patient is retired ROS ROS Narrative She denies any chest pain or shortness of breath. Denies any nausea vomiting. Denies any abdominal pain, frequency or dysuria. And all other systems were reviewed and essentially negative. Vital Signs Vital Signs Vital Signs: 11/17/20 11:24 11/17/20 11:56 11/17/20 14:05 Temperature 36.6 C Temperature Source Oral Pulse Rate 95 Respiratory Rate 15 16 16 Blood Pressure 181/81 H Blood Pressure Mean 114 Pulse Ox 98 Oxygen Delivery Method Room Air Weight Weight: 111.584 kg Body Mass Index (BMI) 38.5 Physical Exam Const alert, oriented x3 and no apparent distress General Appearance: cooperative and comfortable HEENT normocephalic and head/scalp atraumatic Head and Scalp: normal to inspection and normocephalic Nose: external nose normal and nares normal External Ear: external ears normal Mouth: oral and palatal mucosa normal and lips normal Eyes PERRL and EOMs intact bilaterally General Eye: normal appearance of both eyes Neck full ROM Chest inspection of chest normal Resp normal respiratory effort, normal air movement and no retractions Cardio regular rate, regular rhythm and no JVD Heart Sounds: S1 normal and S2 normal GI normal to inspection, nondistended, normoactive bowel sounds, soft to palpation and non-tender external exam normal Extremity Extremity Narrative: 10 x 4 cm wound over the left amos, sutures are intact however overlying skin appears necrotic. Slight serosanguineous drainage on the upper edge. There is no malodor. The surrounding redness, warmth and tenderness. General Extremity: normal exam except as noted Neuro oriented x3, CN's II-XII intact bilaterally and moves all extremities Results Lab / Micro Data Result Diagrams: 11/17/20 12:13 11/17/20 12:13 Labs: Laboratory Results - last 24 hr 11/17/20 12:13: WBC 6.7, RBC 4.23, Hgb 13.3, Hct 42.2, MCV 99.8 H, MCH 31.4, MCHC 31.5 L, RDW Std Deviation 45.4 H, RDW Coeff of Kristie 12.5, Plt Count 398, MPV 9.7, Immature Gran % (Auto) 0.300, Neut % (Auto) 63.8, Lymph % (Auto) 22.9, [place] % (Auto) 9.8, Eos % (Auto) 2.7, Baso % (Auto) 0.5, Absolute Neuts (auto) 4.3, Absolute Lymphs (auto) 1.52, Nucleated RBC % 0 11/17/20 12:13: Sodium 143, Potassium 3.7, Chloride 112 H, Carbon Dioxide 27.0, Anion Gap 4 L, BUN 11, Creatinine 0.61, Estim Creat Clear Calc 50.91, Est GFR (MDRD) Af Amer 125, Est GFR (MDRD) Non-Af 103, BUN/Creatinine Ratio 18.1, Glucose 100, Calcium 8.4 L 11/17/20 12:13: Lactic Acid Cancelled 11/17/20 13:04: Lactic Acid 1.0 Radiology Impression Tibia/Fibula X-Ray 11/17/20 11:53 IMPRESSION: Soft tissue swelling. Electronically Signed: Billy Mathew MD at 13:32 EDT , Service support , Assessment & Plan Assessment/Plan (1) Wound dehiscence: PLAN: Involving previously sutured avulsion/laceration injury to the left amos. This has been complicated by secondary wound infection and surrounding cellulitis. Start on IV antibiotics with cefazolin and vancomycin. Elevate lower extremity at all times. Consult plastic surgery. (2) Essential hypertension: PLAN: Fairly well controlled. Continue antihypertensives. (3) Mood disorder: PLAN: Continue antidepressants. (4) Morbid obesity: PLAN: Lifestyle modifications as able. Charges/Coding Visit Charges Inpatient E&M: 03040 Init Hosp L3
[2020-11-17 14:53] VITALS: BP 136/86; PULSE 80; RESP 18; TEMP 36.5; O2SAT 95
[2020-11-17 16:45] VITALS: BP 164/67; PULSE 87; RESP 18; TEMP 36.7; O2SAT 98; BMI 39.9
[2020-11-17] MEDS: Ibuprofen 600 MG Tablet PO (17:51)
--- NOTE | 2020-11-17 19:48 | PCS.PANDOC ---
PANDEMIC DOCUMENTATION INITIATED: Date: 10/18/2020 Time: 190
[2020-11-17] MEDS: Ascorbic Acid 500 MG Tablet PO (20:18)
--- NOTE | 2020-11-17 20:19 | NURSING ---
1800 medication given late due to pharmacy running behind.
--- NOTE | 2020-11-17 21:05 | PCM.RX.CS ---
Consult Pharmacy has been consulted to manage selected antiobiotic: Vancomycin Type of Consult: New start Suspected Infection: Skin/Soft tissue Labs: Sodium 143 mmol/L (136-145) 11/17/20 12:13 Potassium 3.7 mmol/L (3.5-5.1) 11/17/20 12:13 Chloride 112 mmol/L (98-107) H 11/17/20 12:13 Carbon Dioxide 27.0 mmol/L (21.0-32.0) 11/17/20 12:13 Anion Gap 4 (5-15) L 11/17/20 12:13 BUN 11 mg/dL (7-18) 11/17/20 12:13 Creatinine 0.61 mg/dL (0.55-1.02) 11/17/20 12:13 Est GFR (MDRD) Af Amer 125 mL/min (>60) 11/17/20 12:13 Est GFR (MDRD) Non-Af 103 mL/min (>60) 11/17/20 12:13 BUN/Creatinine Ratio 18.1 RATIO (10-20) 11/17/20 12:13 Glucose 100 mg/dL (74-106) 11/17/20 12:13 Goal Trough: 10-15 mcg/mL Pharmacy Plan for Drug Dosing: NEW START IV VANCOMYCIN Consulting Physician: Dr. Sahu Indication: SSTI Goal Trough: 10-15 SrCr: 0.61 CrCl: 50 mL/min Comments: Initial dose of 1750mg IV x1 given 11/17/20 @1833 Vancomcyin Dose: 1000mg IV Q12hr to start 11/18/20 @0600 Pending Level: 11/19/20 @0530, prior to 4th total dose per protocol Pharmacy Service will continue to monitor and adjust dosing as required.
[2020-11-17 21:59] VITALS: BP 136/73; PULSE 73; RESP 18; TEMP 36.8; O2SAT 96
[2020-11-17] MEDS: buPROPion (SR) 150 MG Tablet.SA PO (22:06)
[2020-11-17] MEDS: Cefazolin 2 GM in 0.9% Normal Saline 100 ML IV (22:07)
[2020-11-17] MEDS: Enoxaparin 40 MG/0.4 ML Syringe SC (22:10)
[2020-11-18 04:05] VITALS: BP 150/77; PULSE 77; RESP 18; TEMP 36.9; O2SAT 97
[2020-11-18] MEDS: Cefazolin 2 GM in 0.9% Normal Saline 100 ML IV ×3 (06:29→22:07)
[2020-11-18] MEDS: 0.9% Saline Lock 10 ML Syringe IV (06:31)
[2020-11-18 06:46] LABS: Absolute Neutrophil Count 3.4 X10^3/uL (2.0-7.7); Basophil# 0.02 X10^3/uL; Basophil% 0.3 % (0-1); Eosinophil# 0.24 X10^3/uL; Eosinophils% 4.2 % (0-5); Hematocrit 36.9 % (37-47); Hemoglobin 12.2 g/dL (12.0-15.0); Lymphocyte % 24.3 % (19-41); Mean Corp Hgb Conc 33.1 g/dL (32-36); Mean Corpuscular Hgb 31.4 pg (27.0-32.0); Mean Corpuscular Volume 95.1 fL (81-99); Mean Platelet Vol. 9.8 fl (6.2-12.0); Monocyte# 0.64 X10^3/uL; Monocyte% 11.1 % (0-10); NRBC Flagged by Analyzer 0 % (0-5); Neutrophil # 3.44 X10^3/uL (2.7-7.7); Neutrophil % 59.9 % (47-70); Platelet Count 362 K/mm3 (150-450); RBC Distribution Width CV 12.5 % (11.6-14.6); RBC Distribution Width SD 43.3 fl (35.1-43.9); Red Blood Count 3.88 M/mm3 (4.2-5.4); White Blood Count 5.8 K/mm3 (4.4-11.0)
[2020-11-18 07:19] LABS: ALB/GLOB Ratio 0.8 RATIO (0.9-2.4); AST(SGOT) 12 U/L (15-37); Alanine Aminotransfer ALT/SGPT 24 U/L (13-56); Albumin, Serum 2.8 g/dL (3.2-5.0); Alkaline Phosphatase 54 U/L (45-117); Anion Gap 5 (5-15); BUN 12 mg/dL (7-18); BUN/Creat Ratio 19.6 RATIO (10-20); Calcium,Total 8.1 mg/dL (8.5-10.1); Chloride 112 mmol/L (98-107); Creatinine, Serum 0.61 mg/dL (0.55-1.02); EST Glomerular Filtration Rate 102 mL/min (>60); Est Glom Filt Rate - Afr Amer 124 mL/min (>60); Estimated Creatinine Clearance 50.91 ml/min; Globulin 3.5 g/dL (2.2-4.2); Glucose 111 mg/dL (74-106); Potassium 3.6 mmol/L (3.5-5.1); Protein, Total 6.3 g/dL (6.4-8.2); Sodium Level 142 mmol/L (136-145)
[2020-11-18] MEDS: Vancomycin IV 1,000 MG/200 ML BAG 200 MG IV ×2 (07:30→17:24)
[2020-11-18] MEDS: Ascorbic Acid 500 MG Tablet PO ×2 (08:13→17:22)
[2020-11-18] MEDS: Ibuprofen 600 MG Tablet PO ×3 (08:13→17:23)
[2020-11-18] MEDS: Aspirin E.C. 81 MG Tablet PO (08:13)
[2020-11-18] MEDS: Potassium Chloride Oral Tablet 20 MEQ PO (08:13)
[2020-11-18] MEDS: Furosemide 80 MG Tablet PO (08:14)
[2020-11-18] MEDS: Citalopram 20 MG Tablet PO (08:14)
[2020-11-18] MEDS: buPROPion (SR) 150 MG Tablet.SA PO ×2 (08:14→20:27)
[2020-11-18 10:15] VITALS: BP 148/73; PULSE 79; RESP 14; TEMP 36.9; O2SAT 97
[2020-11-18] MEDS: amLODIPine 10 MG Tablet PO (10:20)
[2020-11-18] MEDS: Losartan Potassium 100 MG Tablet PO (10:20)
[2020-11-18] MEDS: hydroCHLOROthiazide 12.5mg 12.5 MG PO (10:20)
--- NOTE | 2020-11-18 10:31 | WOUNDNOTE ---
wound photo: left amos
--- NOTE | 2020-11-18 11:00 | CASEMGMT ---
RN RANDOLPH Face to Face with patient for initial transition planning/care coordination assessment. RN CM introduced self and role at [facility]. Patient lying in bed, alert and oriented. Patient willing to participate in assessment and is able to answer all questions appropriately. Care providers, pharmacy, and demographics verified. Patient wishes to discharge home, denies need for home health at this time, will monitor for wound care and IV ATBs. Patient states she has no further needs or concerns at this time. CM to follow for discharge planning needs that may arise. PCP: [facility] Specialists: Juana, program planner; Lela, offset press operator helper; Ferdinand, neuro Preferred Pharmacy: [facility] Insurance: [facility], [employer] Prescription Benefit: yes, [employer] Living Will/HPOA: none LNOK: Living Arrangements: Patient lives with in a single story home with 2 steps and railing to enter the home. Patient states she is independent at home. Transportation: self/ DME/HHC: shower chair, raised toilet, cane, grab bars, walker, cpap, oxygen at HS 1 lpm through [facility]. Patient denies previous HHC. Disposition Plan: Patient to discharge home with family support and follow-up plans in place. Tawnya MORRIS, RN, CM
[2020-11-18] MEDS: Enoxaparin 40 MG/0.4 ML Syringe SC ×2 (12:36→20:27)
--- NOTE | 2020-11-18 12:49 | PCM.CONS.GEN ---
Assessment & Plan Assessment/Plan (1) Bitten by pig, initial encounter: (2) Skin necrosis: (3) Abscess of left lower leg: (4) Cellulitis of left anterior lower leg: PLAN: Patient sustained a complex wound laceration by a pig bite back on 11/08/20. It was cleansed in the ED and sutured closed. She was discharged on Cipro and Clindamycin. She saw her PCP a week later with increasing redness and swelling and pain. He added daily injections of Ceftriaxone along with Flagyl. Some improvement was noted but the redness and swelling persisted. She came to the ED because she failed outpatient therapy. She was admitted and started on Vancomycin and Cefazolin. Initial WBC was normal at 6.7. Lactate was normal at 1.0. On exam, she has an unstable wound with some incisional separation with drainage and some skin necrosis medially along with periwound redness. It was recommended to this patient to proceed with operative intervention with surgical preparation left anterior leg with incision and drainage and excisional debridement of pig bite wound infection abscess with necrosis. Will proceed with surgery tomorrow under general anesthesia. Will leave the wound open and proceed with wound care with the VAC. After discharge, she will [facility]up [facility]. If there is a plateau in the healing process, can proceed with delayed closure with skin grafting. At the time of surgery, will send tissue to Pathology for analysis to rule out carcinoma and to Microbiology for culture. A positive culture will necessitate antibiotic therapy. Anticipate increased metabolic demands from the infection. Will check a Prealbumin and encourage nutritional supplementation with protein to help the healing process. Patient was informed of the risks and complications of the procedure including alternatives to surgery. These were discussed with the patient personally. Patient voices understanding and wishes to proceed. We discussed the current risks associated with COVID-19. While it is understood that there is a community spread of COVID-19, the risk of anna COVID-19 while at [facility] ([facility]) is very low; however, the risk cannot be completely mitigated because of the community spread of the disease. We discussed in detail the risk of exposure to and/or potential harm posed by the COVID-19 virus with having a surgery/procedure at this time versus the risk of delaying the surgery/procedure. It is not possible to know either the risk of delaying the surgery or procedure or chance of getting an infection with perfect accuracy, but a joint decision was made to proceed at this time with the scheduled surgery/procedure as indicated on the consent form. Patient was notified that we will need to comply with any screening or testing [facility] wishes to perform or that surgery may be delayed for any positive results. Procedure Criteria Procedure Type:?Elective COVID Risk Discussion: The surgeon/proceduralist and patient have discussed in detail the risk of exposure to and/or potential harm posed by the COVID-19 virus with having a surgery/procedure at this time versus the risk of delaying the surgery/procedure.? It is not possible to know either the risk of delaying the surgery or procedure or chance of getting an infection with perfect accuracy, but a joint decision was made between the patient and the surgeon/proceduralist to proceed at this time with the scheduled surgery/procedure as indicated on the consent form. HPI Consult Data Date of Consult: 11/18/20 PCP / Referring MD: Dr. Parish Plascencia MD Attending Care Provider: Dr. Gilberto Rockwell DO HPI Narrative Reason for Consultation: Traumatic pig bite wound infection abscess with necrosis left anterior leg. HPI Narrative: ELY HERNÁNDEZ, is a 70 year old F who was attacked by her pet potbelly pig on 11/08/20 and sustained a complex wound laceration to her left anterior leg. In the ED the wounds were cleansed and suture closed. She was discharged on Cipro and Clindamycin. A week later she saw her PCP because of increasing redness and pain and swelling who started her on daily injections of Ceftriaxone and added Flagyl. There was some improvement but the redness and swelling was persistent. She went to the ED on 11/17/20 for further evaluation. X-ray showed no fracture and no foreign body. WBC was normal at 6.7. Lactate was 1.0. She was admitted and started on Vancomycin and Cefazolin. She denied any fevers. I was asked to evaluate this patient for surgical options for treatment. FORMERLY [facility], [facility] Medical History Bitten by pig, initial encounter CPAP (continuous positive airway pressure) dependence Edema Essential hypertension High cholesterol History of left heart catheterization (LHC) (~07/19/18) History of stress test HTN (hypertension) Hyperlipidemia Hypertension Mood disorder On home oxygen therapy Open wound of left lower leg due to animal bite HESHAM (obstructive sleep apnea) Osteoarthritis Post-menopausal Pulmonary hypertension Scarlet fever Sebaceous cyst Skin necrosis Sleep apnea Thyroiditis Ulcer Home Medications citalopram 20 mg tablet 20 mg PO DAILY 10/09/17 [History Last Taken 11/16/20] bupropion HCl 150 mg PO BID 11/08/20 [History Last Taken 11/16/20] olmesartan-hydrochlorothiazide 1 tab PO DAILY 11/08/20 [History Last Taken 11/16/20] amlodipine 10 mg PO DAILY 11/17/20 [History Last Taken 11/16/20] aspirin 81 mg PO DAILY 11/17/20 [History Last Taken 11/16/20] furosemide 80 mg PO DAILY 11/17/20 [History Last Taken 11/16/20] potassium chloride [Klor-Con M20] 20 meq PO BID 11/17/20 [History Last Taken 11/15/20] linezolid [Zyvox] 600 mg PO BID #14 tab 11/20/20 [Rx Last Taken Unknown] Allergy/AdvReac Type Severity Reaction Status Date / Time codeine Allergy Mild roaring Verified 11/17/20 11:24 sounds, hives Penicillins Allergy Mild hives Verified 11/17/20 11:24 Family History Father Heart disease Hypertension Hyperlipidemia Mother Diabetes Breast cancer Heart disease Hypertension Hyperlipidemia Sister CVA (cerebral vascular accident) Surgical History exploratory surgery H/O cardiac catheterization History of History of tonsillectomy S/P dilation and curettage S/P partial thyroidectomy S/P right knee arthroscopy S/P tubal ligation Social History Smoking Status: Never smoker alcohol intake: never substance use type: does not use caffeine: Yes eating out: rarely or never what type of physical activity do you participate in: none seatbelt use: always do you feel safe at home: Yes additional social history: [employer] at [employer] Patient is retired ROS ROS Narrative General - Denies fever, fatigue, and weight loss. Eyes - Denies cataracts and glaucoma. ENT - Denies nasal congestion and sore throat. Endocrine - Denies excessive thirst and urination. Skin - Denies skin cancer. Pig bite wound laceration left anterior leg that was suture closed and is now infected with skin necrosis. Musculoskeletal - Denies joint pain, joint stiffness, weakness of muscles and joints, back pain, and arthritis. Neuro - Denies headaches. Cardiovascular - Denies chest pain, fatigue, and shortness of breath with exertion. Psych - Denies anxiety and depression. Respiratory - Denies chronic cough and shortness of breath. Gastrointestinal - Denies nausea, vomiting, diarrhea, and constipation. Hematologic - Denies abnormal bruising and bleeding. Genitourinary - Denies hematuria and urinary frequency. Physical Exam Narrative General - Alert and Oriented HEENT - PERRL. EOMI. Neck - Supple and nontender. Lungs - Clear to auscultation. Heart - Regular rate and rhythm. Abdomen - Soft and nondistended. Extremities - FROM. No inguinal adenopathy. Dorsalis pedis pulses are palpable. Mild swelling noted more so in left leg. On the left anterior leg is a recent complex wound laceration that was suture closed. There is the beginning of wound separation. There is an area of skin necrosis that extends to the suture line medially. There is periwound redness. Some tenderness to palpation. No fluctuance. Some drainage noted from the incision. Wound measures around 10 cm. Neuro - CN II-XII grossly intact. Psych - Normal mood and affect. Lab / Micro Data Attestation: I reviewed the patient's lab results. Result Diagrams: 11/20/20 06:50 11/20/20 06:50 Labs: Laboratory Results - last 24 hr 11/17/20 13:04: Lactic Acid 1.0 11/18/20 06:20: WBC 5.8, RBC 3.88 L, Hgb 12.2, Hct 36.9 L, MCV 95.1, MCH 31.4, MCHC 33.1 D, RDW Std Deviation 43.3, RDW Coeff of Kristie 12.5, Plt Count 362, MPV 9.8, Immature Gran % (Auto) 0.200, Neut % (Auto) 59.9, Lymph % (Auto) 24.3, [place] % (Auto) 11.1 H, Eos % (Auto) 4.2, Baso % (Auto) 0.3, Absolute Neuts (auto) 3.4, Absolute Lymphs (auto) 1.40, Nucleated RBC % 0 11/18/20 06:20: Sodium 142, Potassium 3.6, Chloride 112 H, Carbon Dioxide 25.0, Anion Gap 5, BUN 12, Creatinine 0.61, Estim Creat Clear Calc 50.91, Est GFR (MDRD) Af Amer 124, Est GFR (MDRD) Non-Af 102, BUN/Creatinine Ratio 19.6, Glucose 111 H, Calcium 8.1 L, Total Bilirubin 0.20, AST 12 L, ALT 24, Alkaline Phosphatase 54, Total Protein 6.3 L, Albumin 2.8 L, Globulin 3.5, Albumin/Globulin Ratio 0.8 L Radiology Impression Tibia/Fibula X-Ray 11/17/20 11:53 IMPRESSION: Soft tissue swelling. Electronically Signed: Billy Mathew MD at 13:32 EDT , Service support , Procedure Criteria Type of Procedure Procedure Type: Elective Elective Risks - COVID COVID Risk Discussion: The surgeon/proceduralist and patient have discussed in detail the risk of exposure to and/or potential harm posed by the COVID-19 virus with having a surgery/procedure at this time versus the risk of delaying the surgery/procedure. It is not possible to know either the risk of delaying the surgery or procedure or chance of getting an infection with perfect accuracy, but a joint decision was made between the patient and the surgeon/proceduralist to proceed at this time with the scheduled surgery/procedure as indicated on the consent form. Charges/Coding Visit Charges Inpatient E&M: 11280 Init Hosp L2 (ICD-10 - W55.41xA, I96, L02.416, L03.116)
--- NOTE | 2020-11-18 12:54 | CASEMGMT ---
Pt provided with list of [facility] agencies and RN CM to check back with pt tomorrow in regards to same. SStmaria antonia RN CM
[2020-11-18 14:16] VITALS: BP 144/71; PULSE 78; RESP 14; TEMP 37.2; O2SAT 95
--- NOTE | 2020-11-18 14:52 | CASEMGMT ---
Palliative screening tool completed at this time for Lace/Strata 3. Patient meets criteria for palliative consult. NEHEMIAH CM updated hospitalist and no referral at this time.
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
[2020-11-18 19:54] VITALS: BP 156/55; PULSE 77; RESP 18; TEMP 36.8; O2SAT 96
[2020-11-19] VITALS (14 sets, daily range): BP systolic 113–145; BP diastolic 51–83; PULSE 62–75; RESP 16–18; TEMP 36.3–37.2; O2SAT 92–98; BMI 39.9
[2020-11-19] MEDS: Acetaminophen 325 MG Tablet 650 MG PO (00:20)
[2020-11-19] MEDS: Cefazolin 2 GM in 0.9% Normal Saline 100 ML IV ×3 (05:12→22:20)
[2020-11-19 05:49] LABS: Absolute Lymphocyte Count 1.56 X10^3/uL (0.83-4.51); Absolute Neutrophil Count 3.9 X10^3/uL (2.0-7.7); Basophil# 0.03 X10^3/uL; Basophil% 0.5 % (0-1); Eosinophil# 0.32 X10^3/uL; Eosinophils% 4.9 % (0-5); Hematocrit 36.9 % (37-47); Hemoglobin 12.1 g/dL (12.0-15.0); Lymphocyte # 1.56 X10^3/ul (0.83-4.51); Lymphocyte % 23.9 % (19-41); Mean Corp Hgb Conc 32.8 g/dL (32-36); Mean Corpuscular Hgb 31.1 pg (27.0-32.0); Mean Corpuscular Volume 94.9 fL (81-99); Mean Platelet Vol. 9.8 fl (6.2-12.0); Monocyte# 0.74 X10^3/uL; Monocyte% 11.3 % (0-10); NRBC Flagged by Analyzer 0 % (0-5); Neutrophil # 3.86 X10^3/uL (2.7-7.7); Neutrophil % 59.2 % (47-70); Platelet Count 356 K/mm3 (150-450); RBC Distribution Width CV 12.5 % (11.6-14.6); RBC Distribution Width SD 43.2 fl (35.1-43.9); Red Blood Count 3.89 M/mm3 (4.2-5.4); White Blood Count 6.5 K/mm3 (4.4-11.0)
--- NOTE | 2020-11-19 05:55 | EKG12_ITS ---
Test Reason : PRE-OP Blood Pressure : / mmHG Vent. Rate : 063 BPM Atrial Rate : 063 BPM P-R Int : 194 ms QRS Dur : 106 ms QT Int : 468 ms P-R-T Axes : 055 020 040 degrees QTc Int : 478 ms Normal sinus rhythm Normal ECG When compared with ECG of 16-DEC-2019 21:28, No significant change was found Confirmed by BLESSING GORMAN, PELON ([id number]), editorial clerk GRANT CARTER ([id number]) on 11/22/2020 10:31:20 AM Referred By: CLARKE Confirmed By:PELON FUNK MD
[2020-11-19] MEDS: Vancomycin IV 1,000 MG/200 ML BAG 200 MG IV ×2 (06:14→18:43)
[2020-11-19 06:15] LABS: Anion Gap 6 (5-15); BUN 16 mg/dL (7-18); BUN/Creat Ratio 19.5 RATIO (10-20); Calcium,Total 8.7 mg/dL (8.5-10.1); Chloride 110 mmol/L (98-107); Creatinine, Serum 0.82 mg/dL (0.55-1.02); EST Glomerular Filtration Rate 73 mL/min (>60); Est Glom Filt Rate - Afr Amer 89 mL/min (>60); Estimated Creatinine Clearance 62.08 ml/min; Glucose 117 mg/dL (74-106); Potassium 3.7 mmol/L (3.5-5.1); Sodium Level 142 mmol/L (136-145)
[2020-11-19 06:16] LABS: Vancomycin, Trough Level 8.9 ug/mL (5.0-15.0)
--- NOTE | 2020-11-19 06:33 | PCM.RX.CS ---
Consult Pharmacy has been consulted to manage selected antiobiotic: Vancomycin Type of Consult: Follow-up Suspected Infection: Skin/Soft tissue Prior Doses of Antibiotics Received/Current Regimen: Medications Vancomycin HCl (Vancomycin) 1,000 mg in 200 mls @ 200 mls/hr IV Q12H MARY Last Admin: 11/19/20 06:14 Dose: 200 mls/hr Labs: Sodium 142 mmol/L (136-145) 11/19/20 05:25 Potassium 3.7 mmol/L (3.5-5.1) 11/19/20 05:25 Chloride 110 mmol/L (98-107) H 11/19/20 05:25 Carbon Dioxide 26.0 mmol/L (21.0-32.0) 11/19/20 05:25 Anion Gap 6 (5-15) 11/19/20 05:25 BUN 16 mg/dL (7-18) 11/19/20 05:25 Creatinine 0.82 mg/dL (0.55-1.02) 11/19/20 05:25 Est GFR (MDRD) Af Amer 89 mL/min (>60) 11/19/20 05:25 Est GFR (MDRD) Non-Af 73 mL/min (>60) 11/19/20 05:25 BUN/Creatinine Ratio 19.5 RATIO (10-20) 11/19/20 05:25 Glucose 117 mg/dL (74-106) H 11/19/20 05:25 Vancomycin Trough 8.9 ug/mL (5.0-15.0) 11/19/20 05:25 Weight used for dosin kg Estimated Creatinine Clearance: 62 Goal Trough: 10-15 mcg/mL Pharmacy Plan for Drug Dosing: Vancomycin trough of 8.9 was below target range of 10-15, but SCr up slightly so will keep same vanco dose and re-draw level prior to 4th dose. Pharmacy Service will continue to monitor and adjust dosing as required. Follow-Up Labs: Trough Vancomycin Labs to be done on [date and time ordered]: 11/20/20 @5235
[2020-11-19] MEDS: Lactated Ringers 1,000 ML 100 ML IV (09:10)
--- NOTE | 2020-11-19 10:00 | SOF_PTH ---
PATIENT: ELY HERNÁNDEZ LOC: MS3 U#:[id number] AGE/SX: 70/F ROOM: [facility] [place] RE11/17/[address]: Dr. Gilberto Rockwell DO : 1950 BED: 1 DIS: 11/20/2020 SPEC #: [id number] RECD: 11/19/20 11:56 STATUS: MARYBEL REQ #: [id number] JOSE: 11/19/20 10:[address]: Kelvin Romero DEPT: SURGICAL PATHOLOGY RECD BY: Jocelyn Mcclain ENTERED: 11/19/20 12:30 SP TYPE: SOFT TISS OTHR DR: DO Dr. Zayda Masterson MD Dr. James A Slaby, MD Dr. Tai Chi Kwok, MD Tissues: Soft tissues, NOS Procedures: Surgery Specimen Level IV Comments: @ Ordering doctor for SUIV edited from to @ by JOHNOD at 11/19/20 160 @ Submitting doctor edited from to @ by RGOOD at 11/19/20 160 HEADER OPERATION: Incision and drainage, debridement, leg infection PRE-OP DIAGNOSIS: Leg infection TISSUE SUBMITTED: Soft tissue left leg MICROSCOPIC DIAGNOSIS Skin and soft tissue of left leg, excision: Ulceration with associated acute and chronic inflammation and abscess formation. AM:jacoby 11/22/2020 MICROSCOPIC DESCRIPTION Slides are reviewed. GROSS DESCRIPTION Received in fixative is one container labeled with the patient's name and designated soft tissue left leg. The specimen consists of a piece of skin with underlying tissue measuring 11 x 6.5 cm and up to 2 cm in thickness. The skin surface shows a focal area of ulceration and multiple sutures. Elevated Work Platform Operator sections are submitted in three cassettes. / SJ:jacoby 11/19/20 TC:2 CPT: 49814
--- NOTE | 2020-11-19 11:09 | OP.PCM_ITS ---
Problems Associated Problem List Diagnoses (1) Bitten by pig, initial encounter: (2) Skin necrosis: (3) Abscess of left lower leg: (4) Cellulitis of left anterior lower leg: (5) Open wound of left lower leg due to animal bite: Report of Operation Date of Procedure: 11/19/20 Pre-Operative Diagnosis: Pig bite wound infection abscess with skin necrosis left anterior leg. Post-Operative Diagnosis: 1. Pig bite wound infection abscess with skin ne crosis left anterior leg. 2. Open surgical wound left anterior leg. Surgery/Procedure Performed:: Surgical preparation left anterior leg with incision and drainage and excisional debridement pig bite wound infection abscess with skin necrosis (96 cm2). Description of Surgical Findings:: ELY HERNÁNDEZ, is a 70 year old F who was attacked by her pet mathieuy pig on 11/08/20 and sustained a complex wound laceration to her left anterior leg. In the ED the wounds were cleansed and suture closed. She was discharged on Cipro and Clindamycin. A week later she saw her PCP because of increasing redness and pain and swelling who started her on daily injections of Ceftriaxone and added Flagyl. There was some improvement but the redness and swelling was persistent. She went to the ED on 11/17/20 for further evaluation. X-ray showed no fracture and no foreign body. WBC was normal at 6.7. Lactate was 1.0. She was admitted and started on Vancomycin and Cefazolin. She denied any fevers. I was asked to evaluate this patient for surgical options for treatment. Patient was informed of the risks and complications of the procedure including alternatives to surgery. These were discussed with the patient personally. Patient voices understanding and wishes to proceed. Size of defect left anterior leg - 12 x 8 x 2 cm. Surgeon: Kelvin Romero renal medicine specialist: None Type of Anesthesia: General Specimen's removed: Pig bite wound infection abscess with skin necrosis left anterior leg to Pathology and Microbiology. Drains: None. Estimated Blood Loss (mL): 20. Description of Procedure: Patient was taken to OR in supine position and was placed under general anesthesia. The left anterior leg was prepped and draped in the usual fashion. SCD's were placed for DVT prophylaxis. Perioperative antibiotics were given intravenously. Using xylocaine with epinephrine, the pig bite wound infection abscess with skin necrosis left anterior leg was infiltrated. After waiting 5 minutes for the anesthetic to take effect, I proceeded with incision and drainage of the wound infection abscess around the area of skin necrosis and including the indurated tissue into the subcutaneous tissue. A lot of fat necrosis was present. Some pus was present. The fat necrosis extended down to the muscular fascia. The fat necrosis was excised and debrided. The overlying skin necrosis and indurated tissue was also excised and debrided. The bone was palpable but not exposed. The underlying fascia and muscle appeared mildly swollen but viable without evidence of necrotizing process. Some of the tissue was sent to Pathology for analysis to rule out carcinoma. Some of the tissue was sent to Microbiology for culture. A positive culture will necessitate antibiotic therapy. The size of the wound after surgical preparation left anterior leg with incision and drainage and excisional debridement pig bite wound infection abscess with necrosis was 12 x 8 x 2 cm or 96 cm2. Hemostasis was obtained with electrocautery. The wound was irrigated with saline. The wound was dressed with Mepitel nonadherent dressing followed by Kerlix gauze and Betadine followed by dry Kerlix gauze and ABD pads and an gregoria wrap for a compression dressing. Patient tolerated the procedure well and was sent to PACU in satisfactory condition. Patient will be sent upstairs for continued postop care. The VAC will be applied tomorrow. When tolerating po analgesia and when the VAC is approved, the patient will be discharged home. She will keep her left leg elevated when sitting. She will followup at the [facility] in a week. If there develops a plateau in the healing process, can proceed with delayed closure with skin grafting. Grafts/Implants Used: None. Complications None. Admit VTE Documentation VTE Present on Admission: No VTE Mechan Device Prophylaxis: SCD's VTE Pharm Prophylaxis ordered?: Yes Addendum Addendum: Surgery Charges CPT - 96810 ICD-10 - W55.41xA, S31.852A, I96, L02.416, L03.116 46586 W55.41xA, I96, L02.416, L03.116, S31.852A
--- NOTE | 2020-11-19 11:32 | WOUNDNOTE ---
Pt is currently off unit for surgery. home VAC paperwork initiated. awaiting approval at this time. CM working on home health care for VAC changes at home.
[2020-11-19] MEDS: Ibuprofen 600 MG Tablet PO ×2 (13:34→18:39)
[2020-11-19] MEDS: Citalopram 20 MG Tablet PO (13:46)
[2020-11-19] MEDS: buPROPion (SR) 150 MG Tablet.SA PO ×2 (13:46→22:21)
[2020-11-19] MEDS: Losartan Potassium 100 MG Tablet PO (13:47)
[2020-11-19] MEDS: hydroCHLOROthiazide 12.5mg 12.5 MG PO (13:49)
[2020-11-19] MEDS: Furosemide 80 MG Tablet PO (13:49)
[2020-11-19] MEDS: amLODIPine 10 MG Tablet PO (13:50)
[2020-11-19] MEDS: Enoxaparin 40 MG/0.4 ML Syringe SC ×2 (13:51→22:19)
--- NOTE | 2020-11-19 15:16 | NURSING ---
PT IV RED, SWOLLEN. SITE DC'D. PT VERY DIFFICULT STICK & IVS HAVE BEEN ATTEMPTED MULTIPLE TIMES. DR MIR MADE AWARE. IV NEEDS RESUMED UNTIL PENDING CULTURES RECEIVED. ORDER FOR MIDLINE.
--- NOTE | 2020-11-19 15:35 | PCM.PN.HOSP ---
Subjective Subjective nauseated post op. Objective Data Objective Data Vital Signs: Vital Signs Temp Pulse Resp BP Pulse Ox 36.5 C L 71 18 124/60 H 97 11/19/20 14:59 11/19/20 14:59 11/19/20 14:59 11/19/20 14:59 11/19/20 14:59 Oxygen Flow Rate (L/min) 2 Oxygen Delivery Method Nasal Cannula Weight: 115.847 kg Body Mass Index (BMI) 39.9 Intake & Output: Intake and Output for Last 24 Hours 11/17/20 11/18/20 11/19/20 23:59 23:59 23:59 Intake Total 885 / 885 1330.75 / 1480.75 670.0 / 670.0 Balance 885 / 885 1330.75 / 1480.75 670.0 / 670.0 Lab / Micro Data Result Diagrams: 11/19/20 05:25 11/19/20 05:25 Labs: Laboratory Results - last 24 hr 11/19/20 05:25: Vancomycin Trough 8.9 11/19/20 05:25: WBC 6.5, RBC 3.89 L, Hgb 12.1, Hct 36.9 L, MCV 94.9, MCH 31.1, MCHC 32.8, RDW Std Deviation 43.2, RDW Coeff of Kristie 12.5, Plt Count 356, MPV 9.8, Immature Gran % (Auto) 0.200, Neut % (Auto) 59.2, Lymph % (Auto) 23.9, Menard % (Auto) 11.3 H, Eos % (Auto) 4.9, Baso % (Auto) 0.5, Absolute Neuts (auto) 3.9, Absolute Lymphs (auto) 1.56, Nucleated RBC % 0 11/19/20 05:25: Sodium 142, Potassium 3.7, Chloride 110 H, Carbon Dioxide 26.0, Anion Gap 6, BUN 16, Creatinine 0.82, Estim Creat Clear Calc 62.08, Est GFR (MDRD) Af Amer 89, Est GFR (MDRD) Non-Af 73, BUN/Creatinine Ratio 19.5, Glucose 117 H, Calcium 8.7 Micro: Microbiology 11/17/20 13:04 Blood Culture (Wb) - Anticubital Right Blood Culture - Preliminary No growth in 48 hours. 11/17/20 12:13 Blood Culture (Wb) - Anticubital Right Blood Culture - Preliminary No growth in 48 hours. Physical Exam Const alert Resp normal respiratory effort, no retractions, no use of accessory muscles and clear to auscultation bilaterally Cardio regular rate, regular rhythm, S1 normal heart sound and S2 normal heart sound GI normal to inspection, nondistended, normoactive bowel sounds, soft to palpation and non-tender Extremity Extremity Narrative: left legs wrapped. Assessment & Plan Assessment/Plan (1) Wound dehiscence: PLAN: Involving previously sutured avulsion/laceration injury to the left amos. This has been complicated by secondary wound infection and surrounding cellulitis. Start on IV antibiotics with cefazolin and vancomycin. Elevate lower extremity at all times. s/p I+D on Cefazolin and vanc (2) Essential hypertension: PLAN: Fairly well controlled. Continue antihypertensives. (3) Mood disorder: PLAN: Continue antidepressants. (4) Morbid obesity: PLAN: Lifestyle modifications as able. Charges/Coding Visit Charges Inpatient E&M: 82043 Subs Hosp L2
--- NOTE | 2020-11-19 15:54 | CASEMGMT ---
Addendum entered by Nichol Alejandro 11/19/20 16:08: Printed confirmation received that fax to [facility] was successful. Original Note: NEHEMIAH DICKSON NOTE: Per Marie Serrato, wound nurse, she confirmed wound vac insurance approval. Wound vac to be applied tomorrow 11/20/20 and anticipate d/c home Sat. Pt aware of above. Pt had been provided list of [facility] agencies previously. Discussed options and pt states [facility]. TC to Gee @ [facility] and referral made. Referral packet faxed. 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 He states they can accept pt and SOC will be either Sun or Mon. He requests post-op note be faxed to [facility] @ d/c. Green sheet placed on chart w/instructions for notifying [facility] when pt is d/c'd and to fax d/c instructions and summary if available. Note also left on green sheet for post-op note to be faxed as well. Pt made aware of [facility] able to accept and of discharge plan. She denies further discharge planning needs at this time. d/c plan: Home w/[facility] for SN for wound vac care/dsg changes. Allan MORRIS RN, CM
[2020-11-19] MEDS: Ondansetron ODT 4 MG Tablet PO (16:33)
[2020-11-19] MEDS: Ascorbic Acid 500 MG Tablet PO (18:39)
[2020-11-19] MEDS: Potassium Chloride Oral Tablet 20 MEQ PO (22:21)
[2020-11-20 02:24] VITALS: BP 108/55; PULSE 68; RESP 18; TEMP 36.3; O2SAT 96
[2020-11-20] MEDS: Cefazolin 2 GM in 0.9% Normal Saline 100 ML IV (05:01)
[2020-11-20] MEDS: Vancomycin IV 1,000 MG/200 ML BAG 200 MG IV (06:26)
[2020-11-20 07:12] LABS: Hematocrit 37.7 % (37-47); Hemoglobin 12.3 g/dL (12.0-15.0); Mean Corp Hgb Conc 32.6 g/dL (32-36); Mean Corpuscular Hgb 31.2 pg (27.0-32.0); Mean Corpuscular Volume 95.7 fL (81-99); Mean Platelet Vol. 9.7 fl (6.2-12.0); Platelet Count 386 K/mm3 (150-450); RBC Distribution Width CV 12.5 % (11.6-14.6); RBC Distribution Width SD 43.9 fl (35.1-43.9); Red Blood Count 3.94 M/mm3 (4.2-5.4); White Blood Count 7.5 K/mm3 (4.4-11.0)
[2020-11-20 07:33] VITALS: BP 133/60; PULSE 72; RESP 16; TEMP 36.7; O2SAT 97
[2020-11-20 07:41] LABS: Anion Gap 6 (5-15); BUN 15 mg/dL (7-18); BUN/Creat Ratio 20.4 RATIO (10-20); Calcium,Total 8.6 mg/dL (8.5-10.1); Chloride 106 mmol/L (98-107); Creatinine, Serum 0.74 mg/dL (0.55-1.02); EST Glomerular Filtration Rate 83 mL/min (>60); Est Glom Filt Rate - Afr Amer 100 mL/min (>60); Estimated Creatinine Clearance 50.91 ml/min; Glucose 119 mg/dL (74-106); Potassium 3.7 mmol/L (3.5-5.1); Sodium Level 140 mmol/L (136-145)
[2020-11-20] MEDS: Ibuprofen 600 MG Tablet PO ×2 (07:51→11:59)
[2020-11-20] MEDS: Ascorbic Acid 500 MG Tablet PO (07:52)
--- NOTE | 2020-11-20 10:05 | PCM.DC ---
Discharge Instructions Diet Discharge Diet: No restrictions Activity Discharge Activity: Return to Normal Activity Keep extremity elevated above heart level: Operative Extremity and Left Leg Dressing / Incision Call your doctor if your incision/area has: Continuous Slow Oozing, Sudden Increased Bleeding, Increased Pain/ Swelling, Increased Redness, Foul Smelling Discharge and Swelling at the incision site Call your doctor if you observe: Fever of 101 or Higher Cleanse incision/area with: Keep Dressing Clean & Dry Follow Up Care Test Results: Test results from this visit will be discussed in further detail at your follow-up appointment, if applicable. Discharge Plan Admission Admit Date/Time: 11/17/20 14:29 Primary Reason for Your Visit: cellulitis LLE. Attending Provider: Gilberto Rockwell Primary Care Provider: Parish Plascencia Chi Consulting Providers: Kelvin Romero Discharge Orders/Prescriptions Prescriptions: New linezolid 600 mg tablet 600 mg PO Q12H 7 Days Qty: 14 RF: 0 Continued olmesartan-hydrochlorothiazide 40-12.5 mg tablet 1 tab PO DAILY RF: 0 potassium chloride [Klor-Con M20] 20 mEq Tablet,Er Particles/Crystals 20 meq PO BID RF: 0 furosemide 40 mg tablet 80 mg PO DAILY RF: 0 aspirin 81 mg tablet,delayed release (DR/EC) 81 mg PO DAILY RF: 0 amlodipine 10 mg tablet 10 mg PO DAILY RF: 0 Held citalopram 20 mg tablet 20 mg PO DAILY RF: 0 Hold Instructions: Resume on 11/27/20. bupropion HCl 150 mg tablet sustained-release 12 hr 150 mg PO BID RF: 0 Hold Instructions: Resume on 11/27/20. Referrals / Follow Up: Kelvin Romero MD [STAFF PHYSICIAN] - In 1 Week Parish Plascencia Chi, MD [Primary Care Provider] - 12/06/20 10:40 am (If patient is discharged sooner, please call and adjust appointment date. ) Disposition Disposition (needs filled in before D/C Order can be placed): Home Health Service
--- NOTE | 2020-11-20 10:25 | PCM.DC.SUM ---
Providers Date of Admission: 11/17/20 Primary Care Physician: Dr. Parish lPascencia MD Consultations 11/17/20 16:43 Consult: Plastic Surgery Routine Consulting Provider: Kelvin Romero Reason for Consult: wound dehiscence EMERGENT Consult: No MD Notified: Yes Date Notified: 11/18/20 Time Notified: 06:50 Method of Notification: Text 11/18/20 10:30 Consult: Onc/Wound/plater barrel Routine Comment: Reason for Consult:: left amos wound Reason For Visit: WOUND DEHISCENCE AND INFECTION Diagnosis Discharge Diagnosis (1) Wound dehiscence: Status: Acute Code(s): T81.30XA - Disruption of wound, unspecified, initial encounter (2) Essential hypertension: Status: Chronic Code(s): I10 - Essential (primary) hypertension (3) Mood disorder: Status: Chronic Code(s): F39 - Unspecified mood [affective] disorder (4) Morbid obesity: Status: Acute Code(s): E66.01 - Morbid (severe) obesity due to excess calories Medications at Discharge Home Medications citalopram 20 mg tablet 20 mg PO DAILY 10/09/17 bupropion HCl 150 mg PO BID 11/08/20 olmesartan-hydrochlorothiazide 1 tab PO DAILY 11/08/20 amlodipine 10 mg PO DAILY 11/17/20 aspirin 81 mg PO DAILY 11/17/20 furosemide 80 mg PO DAILY 11/17/20 potassium chloride [Klor-Con M20] 20 meq PO BID 11/17/20 linezolid 600 mg PO Q12H 7 Days #14 tab 11/20/20 Hospital Course Operations - (Surgical preparation left anterior leg with incision and drainage and excisional debridement pig bite wound infection abscess with skin necrosis (96 cm2).) Procedures None Summary of Care Provided Minutes Spent on Discharge: 32 Hospital Course: 30-year-old female who got bit by her PEG and was sutured in the emergency room. Wound got worse and was noted to have decompensation of the wound. Patient was admitted started on antibiotics and patient was taken to surgery where she had 19 sectional debridement of the pig bite wound with abscess and skin necrosis. Patient had cultures that grew out Enterococcus. Patient would be discharged with linezolid as patient has a noted allergy with hives with penicillins. Patient will be told to hold her buprenorphine as well as citalopram while she is on this medication. Patient will continue with local wound care and follow-up Dr. Romero in a week. Physical Exam Const alert and oriented x3 Skin Skin Narrative: leg wrapped--did not remove Weight / BMI Weight Weight: 115.847 kg Body Mass Index (BMI) 39.9 ABG / Lab / Microbiology Data Result Diagrams: 11/20/20 06:50 11/20/20 06:50 Laboratory: Laboratory Results - last 24 hr 11/20/20 06:50: WBC 7.5, RBC 3.94 L, Hgb 12.3, Hct 37.7, MCV 95.7, MCH 31.2, MCHC 32.6, RDW Std Deviation 43.9, RDW Coeff of Kristie 12.5, Plt Count 386, MPV 9.7 11/20/20 06:50: Sodium 140, Potassium 3.7, Chloride 106, Carbon Dioxide 28.0, Anion Gap 6, BUN 15, Creatinine 0.74, Estim Creat Clear Calc 50.91, Est GFR (MDRD) Af Amer 100, Est GFR (MDRD) Non-Af 83, BUN/Creatinine Ratio 20.4 H, Glucose 119 H, Calcium 8.6, Prealbumin 19.0 L Microbiology: Microbiology 11/19/20 10:53 Tissue - Leg Gram Stain - Final 11/17/20 13:04 Blood Culture (Wb) - Anticubital Right Blood Culture - Preliminary No growth in 48 hours. 11/17/20 12:13 Blood Culture (Wb) - Anticubital Right Blood Culture - Preliminary No growth in 48 hours. D/C Instructions Discharge Diet: No restrictions Keep extremity elevated above heart level: Operative Extremity and Left Leg Call your doctor if your incision/area has: Continuous Slow Oozing, Sudden Increased Bleeding, Increased Pain/ Swelling, Increased Redness, Foul Smelling Discharge and Swelling at the incision site Call your doctor if you observe: Fever of 101 or Higher Cleanse incision/area with: Keep Dressing Clean & Dry Meaningful Use Info Meaningful Use Diagnoses (Choose all that apply): None applicable Discharge Plan Admission Admit Date/Time: 11/17/20 14:29 Primary Reason for Your Visit: cellulitis LLE. Attending Provider: Gilberto Rockwell Primary Care Provider: Parish Plascencia Chi Consulting Providers: Kelvin Romero Discharge Orders/Prescriptions Prescriptions: New linezolid 600 mg tablet 600 mg PO Q12H 7 Days Qty: 14 RF: 0 Continued olmesartan-hydrochlorothiazide 40-12.5 mg tablet 1 tab PO DAILY RF: 0 potassium chloride [Klor-Con M20] 20 mEq Tablet,Er Particles/Crystals 20 meq PO BID RF: 0 furosemide 40 mg tablet 80 mg PO DAILY RF: 0 aspirin 81 mg tablet,delayed release (DR/EC) 81 mg PO DAILY RF: 0 amlodipine 10 mg tablet 10 mg PO DAILY RF: 0 Held citalopram 20 mg tablet 20 mg PO DAILY RF: 0 Hold Instructions: Resume on 11/27/20. bupropion HCl 150 mg tablet sustained-release 12 hr 150 mg PO BID RF: 0 Hold Instructions: Resume on 11/27/20. Referrals / Follow Up: Kelvin Romero MD [STAFF PHYSICIAN] - In 1 Week Parish Plascencia Chi, MD [Primary Care Provider] - 12/06/20 10:40 am (If patient is discharged sooner, please call and adjust appointment date. ) Disposition Disposition (needs filled in before D/C Order can be placed): Home Health Service Charges/Coding Visit Charges Inpatient E&M: 75361 Disch Hosp
[2020-11-20] MEDS: Citalopram 20 MG Tablet PO (11:02)
[2020-11-20] MEDS: buPROPion (SR) 150 MG Tablet.SA PO (11:02)
[2020-11-20] MEDS: Enoxaparin 40 MG/0.4 ML Syringe SC (11:02)
[2020-11-20] MEDS: Furosemide 80 MG Tablet PO (11:03)
[2020-11-20] MEDS: Losartan Potassium 100 MG Tablet PO (11:03)
[2020-11-20] MEDS: hydroCHLOROthiazide 12.5mg 12.5 MG PO (11:03)
[2020-11-20] MEDS: amLODIPine 10 MG Tablet PO (11:03)
[2020-11-20] MEDS: Potassium Chloride Oral Tablet 20 MEQ PO (11:04)
--- NOTE | 2020-11-20 13:36 | WOUNDNOTE ---
wound photo: left lower leg
--- NOTE | 2020-11-20 13:37 | WOUNDNOTE ---
wound VAC placed without difficulty. present at bedside. reviewed alarms, etc. with patient and . pt aware to take dressing to wound center visits in case they change the VAC dressing. proof of delivery signed and dated and [facility].
--- NOTE | 2020-11-20 15:05 | NURSING ---
PICC taken out at 1450 today by this nurse.
--- NOTE | 2020-11-22 17:52 | CASEMGMT ---
NEHEMIAH DICKSON Discharge Follow-up Phone Call: EMELYN: Trudy Strata:3 Call Date: 11/22/20 Discharge Date: 11/20/20 Time of Call: 1750 Admitting Diagnosis: wound dehiscence This RN CM attempted to contact pt via phone for discharge follow-up. Nonidentifying voicemail received. Pt was discharged with home health services. Efe Morse RN CM
== END 2020-11-20 15:43 | disposition home health service (06) | DRG 902 ==
LOC: ED 14:14 → PCU 11-18 06:48 → MS3 11-18 21:19
PROVIDERS: Surgery; Admitting Provider Internal Medicine; Emergency Provider Emergency Medicine; PCP Family Medicine Geriatric Medicine
PROC: 0J9P0ZX Drainage of Left Lower Leg Subcutaneous Tissue and Fascia, Open Approach, Diagnostic (ICD-10-PCS; principal; 2020-11-19 09:50)
DX: T81.33XA Disruption of traumatic injury wound repair, initial encounter (principal); L02.416 Cutaneous abscess of left lower limb; L03.116 Cellulitis of left lower limb; I96 Gangrene, not elsewhere classified; L76.82 Other postprocedural complications of skin and subcutaneous tissue; I27.20 Pulmonary hypertension, unspecified; S81.852A Open bite, left lower leg, initial encounter; W55.41XA Bitten by pig, initial encounter; B95.2 Enterococcus as the cause of diseases classified elsewhere; I10 Essential (primary) hypertension; E66.01 Morbid (severe) obesity due to excess calories; F39 Unspecified mood [affective] disorder; E78.00 Pure hypercholesterolemia, unspecified; E78.5 Hyperlipidemia, unspecified; G47.33 Obstructive sleep apnea (adult) (pediatric); M19.90 Unspecified osteoarthritis, unspecified site; E06.9 Thyroiditis, unspecified; Z68.39 Body mass index [BMI] 39.0-39.9, adult; Z79.82 Long term (current) use of aspirin; Z79.899 Other long term (current) drug therapy; Z99.81 Dependence on supplemental oxygen
CPT/HCPCS: 36415; 73590; 80048; 80053; 80202; 83605; 84134; 85025; 85027; 87040; 87070; 87075; 87077; 87102; 87176; 87186; 87205; 87206; 87640; 88305; 93005; 99283; J7040; J7050; J7120; A4216; J2405

== ENCOUNTER 2020-12-27 10:30 | Outpatient (RCR) | payer MEDICARE, OTHER, SELFPAY ==
[2020-12-06 10:14] VITALS: BP 116/75; PULSE 97; RESP 16; TEMP 36.2; BMI 36.0
--- NOTE | 2020-12-06 12:57 | HP.PCM_ITS ---
History of Present Illness Date of Service: 12/06/20 Chief Complaint: Left anterior leg ulcer after being bitten by a pet potbelly pig History of Wound: 70 year old F who was attacked by her pet potbelly pig on 11/08/20 and sustained a complex wound laceration to her left anterior leg. In the ED the wounds were cleansed and suture closed. She was discharged on Cipro and Clindamycin. A week later she saw her PCP because of increasing redness and pain and swelling who started her on daily injections of Ceftriaxone and added Flagyl. There was some improvement but the redness and swelling was persistent. She went to the ED on 11/17/20 for further evaluation. X-ray showed no fracture and no foreign body. WBC was normal at 6.7. Lactate was 1.0. She was admitted and started on Vancomycin and Cefazolin. Surgery 11/19/20 - Surgical preparation left anterior leg with incision and drainage and excisional debridement pig bite wound infection abscess with skin necrosis (96 cm2). Wound care - Wound VAC at 150 mmHg three times per week. Wash ulcer with soap and water at the time of the VAC change. YAHAIRA wrap for compression. Operative cultures positive for Enterococcus avium, Enterococcus gallinarum, Turicella otitidis and Bacteroides thetaiotaomicron. She was started on Linezolid and Flagyl. She has completed the Flagyl but continues the Linezolid. Today she denies any fevers, chills, nausea or vomiting. She states her appetite is good and she has increased her protein intake. Progress of Wound: Improved. [facility] Medical History Bitten by pig, initial encounter CPAP (continuous positive airway pressure) dependence Edema Essential hypertension Headache Hearing problem High cholesterol History of blood clots History of left heart catheterization (LHC) (~07/19/18) History of stress test HTN (hypertension) Hyperlipidemia Hypertension Lupus Mood disorder Morbid obesity On home oxygen therapy Open wound of left lower leg due to animal bite HESHMA (obstructive sleep apnea) Osteoarthritis Post-menopausal Pulmonary hypertension Scarlet fever Sebaceous cyst Skin necrosis Sleep apnea Thyroid disease Thyroiditis Ulcer UTI (urinary tract infection) Home Medications citalopram 20 mg tablet 20 mg PO DAILY 10/09/17 [History Last Taken 11/16/20] bupropion HCl 150 mg PO BID 11/08/20 [History Last Taken 11/16/20] olmesartan-hydrochlorothiazide 1 tab PO DAILY 11/08/20 [History Last Taken 11/16/20] amlodipine 10 mg PO DAILY 11/17/20 [History Last Taken 11/16/20] furosemide 80 mg PO DAILY 11/17/20 [History Last Taken 11/16/20] potassium chloride [Klor-Con M20] 20 meq PO BID 11/17/20 [History Last Taken 11/15/20] linezolid [Zyvox] 600 mg PO BID #14 tab 11/20/20 [Rx Last Taken Unknown] diazepam 5 mg tablet 5 mg PO TID PRN #20 tab 11/24/20 [Rx Last Taken Unknown] Allergy/AdvReac Type Severity Reaction Status Date / Time codeine Allergy Mild roaring Verified 12/01/20 09:54 sounds, hives Penicillins Allergy Mild hives Verified 12/01/20 09:54 Family History Father Heart disease Hypertension Hyperlipidemia Melanoma Mother Diabetes Breast cancer Heart disease Hypertension Hyperlipidemia Sister CVA (cerebral vascular accident) Other Arthritis History of blood clots Osteoporosis Skin cancer Surgical History exploratory surgery H/O cardiac catheterization History of History of excision of lesion History of tonsillectomy S/P dilation and curettage S/P partial thyroidectomy S/P right knee arthroscopy S/P tubal ligation Social History Smoking Status: Never smoker alcohol intake: never substance use type: does not use caffeine: Yes eating out: rarely or never what type of physical activity do you participate in: none seatbelt use: always do you feel safe at home: Yes additional social history: [employer] at [employer] Patient is retired Does Not Take Aspirin Does Take Ibuprofen as needed ROS Constitutional Constitutional: Reports as per HPI Eyes Eyes: Reports none ENT HEENT: Reports none Cardiovascular Cardiovascular: Reports none Respiratory/Chest Respiratory/Chest: Reports none Gastrointestinal Gastrointestinal: Reports none Genitourinary Genitourinary: Reports none Musculoskeletal Musculoskeletal: Reports as per HPI Integumentary Integumentary: Reports skin ulcer Neurologic Neurologic: Reports none Psychiatric Psychiatric: Reports none Endocrine Endocrinology: Reports none Vital Signs Vital Signs Vital Signs: 12/06/20 10:14 Temperature 97.2 F L Temperature Source Temporal Pulse Rate 97 Respiratory Rate 16 Blood Pressure 116/75 Blood Pressure Mean 88 Blood Pressure Source Monitor Blood Pressure Position Sitting Blood Pressure Location Right Arm Oxygen Delivery Method Room Air Weight Weight: 230 lb Body Mass Index (BMI) 36.0 Physical Exam Const alert, oriented x3 and no apparent distress General Appearance: cooperative HEENT normocephalic Eyes PERRL Neck full ROM Lymph Lymphatic: no lymphedema noted Resp normal respiratory effort and normal air movement Cardio regular rate and regular rhythm GI soft to palpation and non-tender Back/Spine normal ROM Extremity full ROM and normal capillary refill Extremity Narrative: Left leg edema +2 Skin Wound Narrative: Left anterior leg ulcer is beefy pink Neuro oriented x3 Psych mental status grossly normal Debridement Note Debridement Note Wound debrided: Anterior leg wound Laterality: Left Type of Debridement: Excisional debridement Anesthesia Used: 5% Lidocaine Gel Depth: Down to and including healthy tissue, in the subcutaneous layer and to muscle Instrument Used: 7mm curette Tissue Removed: Subcutaneous tissue and slough into the muscle Severity: Fat Layer Exposed Amount of bleeding with debridement: Mild Bleeding Controlled with: Pressure and Compression and gauze Patient tolerated procedure: Patient tolerated procedure well Post-Debridement Measurements and Additional Note: Post-Debridement Measurements/Treatment - Nurse 1 - General Ulcer Assessment Start: 12/06/20 09:47 Freq: Status: Active Protocol: RUBIA Activity Type Activity Date Activity User E-Sign Co-Sign Detail Recorded Client Recorded Date Recorded By Document 12/06/20 10:14 SEBASTIAN [id number] 12/06/20 10:20 SEBASTIAN 12/06/20 10:14 - Today's Visit Information Type of service Initial Visit Arrival Mode Ambulatory Transfer Assistance None Accompanied by Patient Identification Verified (Name & Yes ) Patient Requires Transmission-Based No Precautions Height and Weight Height 5 ft 7 in Weight 230 lb Weight in Pounds 230.0 lbs Weight Measurement Method Estimated by Patient Body Mass Index (BMI) 36.0 BMI Classification Obese BSA - Karlo 2.15 Vital Signs Temperature (97.8 F-99.1 F) 97.2 F L Temperature Source Temporal Pulse Rate (60-100) 97 Pulse Location Monitor Respiratory Rate (12-18) 16 Respiratory rate source Observation Oxygen Delivery Method Room Air Blood Pressure (90/60-120/80) 116/75 Blood Pressure Mean 88 Source Monitor Position Sitting Blood Pressure Location Right Arm History Since Last Visit- (Skip if this is Patient's initial visit) Left Footwear Regular Shoe Right Footwear Regular Shoe Pain Scale: 0-10 Numeric Is Patient Pain Free? Yes Communication Assessment Preferred language Trinidadian Equipment Tech Required No Able to Read Yes Able to Write Yes Communication Tools None Right Hearing Abillity Normal Left Hearing Abillity Normal Visual Assistive Devices None Teaching Assessment Preferences Verbal,Written, Audio/Visual, Demonstration Barriers to Learning None Readiness To Learn Excellent Willingness to Engage in Self Management High Activies Readiness to Engage in Self Management High Activities Anxiety Level Calm Cooperation Cooperative Perception Coherent Interest in Health Problem Asks Questions Education Importance Acknowledges Need Does Patient Smoke tobacco or other No substances Smoking Status Never smoker Is Patient Diabetic No Functional Assessment Recent Decline in Ability to Perform Denies Any Declines Culture/Islam/Furniture Dipper Cultural/Islam Needs that may affect No Treatment Plan Teaching: Wound Center *Welcome to the Wound Center -Person Taught Patient,Family -Teaching Method Discussion -Response to teaching Verbalize understanding Welcome to the Wound Care Center English RAND - Nurse 1 - General Ulcer Measurement Start: 12/06/20 09:47 Freq: Status: Active Protocol: Activity Type Activity Date Activity User E-Sign Co-Sign Detail Recorded Client Recorded Date Recorded By Document 12/06/20 10:14 MT [id number] 12/06/20 10:20 SEBASTIAN 12/06/20 10:14 Wound Center Nurse 1 #1- L GERMAN POST OP -Combined with other wound No -Current Size (cm) - Length 10.2 -Current Size (cm) - Width 7 -Current Size (cm) - Depth 0.7 -Total Square Cm 71.4 -Date of Last Picture (Recall this 12/06/20 field) -Photo Taken Yes -Epithelialization None Present -Tunneling No -Undermining/Tunneling No -Circular Undermining No -Exudate Amt Large -Exudate Type Serosanguineous -Wound Margin Distinct, Outline Attached -Granulation Amt Medium (34-66%) -Granulation Quality Red -Slough/Fibrin Yes -Necrosis Amt Medium (34-66%) -Necrotic Tissue Type Adherent Slough -Texture (Mackenzie-wound Skin Appearance) Assessed, Scarring -Moisture (Mackenzie-wound Skin Appearance) Assessed -Color (Mackenzie-wound Skin Appearance) Assessed -Temperature (Mackenzie-wound Skin No Abnormality Appearance) (Pt Warm) -Tenderness on Palpation (Mackenzie-wound No Skin Appearance) -Ulcer Cleansing Soap and Water -Foul Odor after Cleansing No -Anesthetic Used 4% Lidocaine Solution Lower Limb Edema Present Yes Right Calf (cm) 41.5 Right Ankle (cm) 28 WC - Nurse 2 - General Ulcer CM Notes Start: 12/06/20 09:47 Freq: Status: Active Protocol: Activity Type Activity Date Activity User E-Sign Co-Sign Detail Recorded Client Recorded Date Recorded By Document 12/06/20 10:36 SHAQ [id number] 12/06/20 10:40 SHAQ 12/06/20 10:36 Wound Center Nurse 2 #1- L GERMAN POST OP -Time 10:36 -Correct Patient Yes -Correct Side, Site, Position Yes -Correct Procedure Yes -Procedure Performed Yes -Type of Procedure Debridement -Clinical Debridement Muscle / Fascia -Tissue Removed Muscle -Post Debridement (cm) - Length 11.5 -Post Debridement (cm) - Width 7.4 -Post Debridement (cm) - Depth 0.9 -Total Square (Post) (cm) 85.10 -Area of Debridement (cm) - Length 11.5 -Area of Debridement (cm) - Width 7.4 -Total Square (Area) (cm) 85.10 -Tunneling No -Undermining/Tunneling No -Circular Undermining No -Wound/Ulcer Outcome Not Healed -Foul Odor after Cleansing No -Bioengineered Tissue No -Bleeding Controlled with Pressure -Offloading No -Treatment Response Procedure Tolerated Well -Debridement - Muscle / Fascia, 1st Yes 20sq cm -Debridement, Muscle/Fascia, ea addt'l 4 20sq cm or part thereof Pain Scale: 0-10 Numeric Is Patient Pain Free? Yes - Nurse 3 - General Ulcer D/C NN Start: 12/06/20 09:47 Freq: Status: Active Protocol: Activity Type Activity Date Activity User E-Sign Co-Sign Detail Recorded Client Recorded Date Recorded By Document 12/06/20 10:52 TRI [id number] 12/06/20 10:52 TRI 10/04/21 10:52 Wound Care Nurse 3 #1- L GERAMN POST OP -Other Dressing wet to dry -Primary Dressing Covered/Secured with Dry Gauze,Dry Gauze & Roll Gauze,Secured with Tape Pain Scale: 0-10 Numeric Is Patient Pain Free? Yes WC - Visit Discharge Discharge Condition Stable Ambulatory Status Ambulatory Transportation Private Auto Accompanied by Charges/Coding Procedures Integumentary 111xxx-113xx: 04146 Global Visit Assessment/Plan Assessment/Plan (1) Open wound of left lower leg due to animal bite: CODE(S): S81.852A - Open bite, left lower leg, initial encounter (2) Abscess of left lower leg: CODE(S): L02.416 - Cutaneous abscess of left lower limb (3) Lupus: CODE(S): M32.9 - Systemic lupus erythematosus, unspecified (4) Skin necrosis: CODE(S): I96 - Gangrene, not elsewhere classified PLAN: Wound care - Wound VAC at 150 mmHg three times per week. Wash ulcer with soap and water at the time of the VAC change. YAHAIRA wrap for compression. Operative cultures positive for Enterococcus avium, Enterococcus gallinarum, Turicella otitidis and Bacteroides thetaiotaomicron. She was started on Linezolid and Flagyl. She has completed the Flagyl but continues the Linezolid. Follow up one week.
[2020-12-13 10:12] VITALS: BP 139/76; PULSE 107; RESP 18; TEMP 36.4; BMI 36.0
--- NOTE | 2020-12-13 12:25 | PN.PCM_ITS ---
History of Present Illness Date of Service: 12/13/20 Chief Complaint: Left anterior leg ulcer after being bitten by a pet potbelly pig History of Wound: 70 year old F who was attacked by her pet potbelly pig on 11/08/20 and sustained a complex wound laceration to her left anterior leg. In the ED the wounds were cleansed and suture closed. She was discharged on Cipro and Clindamycin. A week later she saw her PCP because of increasing redness and pain and swelling who started her on daily injections of Ceftriaxone and added Flagyl. There was some improvement but the redness and swelling was persistent. She went to the ED on 11/17/20 for further evaluation. X-ray showed no fracture and no foreign body. WBC was normal at 6.7. Lactate was 1.0. She was admitted and started on Vancomycin and Cefazolin. Surgery 11/19/20 - Surgical preparation left anterior leg with incision and drainage and excisional debridement pig bite wound infection abscess with skin necrosis (96 cm2). Wound care - Wound VAC at 150 mmHg three times per week. Wash ulcer with soap and water at the time of the VAC change. YAHAIRA wrap for compression. Operative cultures positive for Enterococcus avium, Enterococcus gallinarum, Turicella otitidis and Bacteroides thetaiotaomicron. She was started on Linezolid and Flagyl. She has completed the Flagyl but continues the Linezolid. Today she denies any fevers, chills, nausea or vomiting. She states her appetite is good and she has increased her protein intake. Progress of Wound: Improved. Objective Data Objective Data Vital Signs: Vital Signs Temp Pulse Resp BP 97.5 F L 107 H 18 139/76 H 12/13/20 10:12 12/13/20 10:12 12/13/20 10:12 12/13/20 10:12 Oxygen Delivery Method Room Air Weight: 230 lb Body Mass Index (BMI) 36.0 Charges/Coding Procedures Integumentary 111xxx-113xx: [id number] Global Visit Physical Exam Const alert and oriented x3 General Appearance: cooperative HEENT normocephalic Head and Scalp: atraumatic Eyes PERRL Lymph Lymphatic: no lymphedema noted Resp normal respiratory effort Cardio regular rate GI Palpation: soft Extremity normal capillary refill General Extremity: edema Skin Wound Narrative: Left anterior leg wound to the muscle. Wound is clean, and decreasing depth, granulation tissue is present. Neuro CN's II-XII intact bilaterally Psych Appearance: grossly normal Debridement Note Debridement Note Wound debrided: anterior leg ulcer Laterality: Left Type of Debridement: Excisional debridement Anesthesia Used: 5% Lidocaine Gel Depth: in the subcutaneous layer and to muscle Percentage of wound debrided: 100 Instrument Used: 7mm curette Tissue Removed: Subcutaneous tissue and slough into the muscle. Severity: Fat Layer Exposed Amount of bleeding with debridement: Mild Bleeding Controlled with: Pressure Patient tolerated procedure: Patient tolerated procedure well Post-Debridement Measurements and Additional Note: Post-Debridement Measurements/Treatment - Nurse 1 - General Ulcer Assessment Start: 12/06/20 09:47 Freq: Status: Active Protocol: RUBIA Activity Type Activity Date Activity User E-Sign Co-Sign Detail Recorded Client Recorded Date Recorded By Document 12/06/20 10:14 AK [id number] 12/06/20 10:20 AK Document 12/13/20 10:12 SHAQ [id number] 12/13/20 10:14 SHAQ 12/06/20 12/13/20 10:14 10:12 - Today's Visit Information Type of service Initial Visit Follow-up Visit (Physician/SUMMER NANNY ) Arrival Mode Ambulatory Ambulatory Transfer Assistance None Accompanied by Patient Identification Verified (Name & Yes Yes ) Patient Requires Transmission-Based No No Precautions Height and Weight Height 5 ft 7 in Weight 230 lb Weight in Pounds 230.0 lbs Weight Measurement Method Estimated by Patient Body Mass Index (BMI) 36.0 36.0 BMI Classification Obese Obese BSA - Karlo 2.15 Vital Signs Temperature (97.8 F-99.1 F) 97.2 F L 97.5 F L Temperature Source Temporal Temporal Pulse Rate (60-100) 97 107 H Pulse Location Monitor Monitor Respiratory Rate (12-18) 16 18 Respiratory rate source Observation Observation Oxygen Delivery Method Room Air Blood Pressure (90/60-120/80) 116/75 139/76 H Blood Pressure Mean (mm Hg) 88 97 Source Monitor Monitor Position Sitting Semi-Fowlers Blood Pressure Location Right Arm Left Arm Have you changed medications since your No last visit? Any new allergies or adverse reactions No Had a fall/change in ADL's that may No increase risk of falls Signs or symptoms of abuse and/or No neglect since last visit Have you been in the hospital since your No last visit? Has dressing in place as prescribed Yes Has compression in place as prescribed Yes Has offloadiing in place as prescribed N/A Experienced any changes in pain level or No management History Since Last Visit- (Skip if this is Patient's initial visit) Left Footwear Regular Shoe Regular Shoe Right Footwear Regular Shoe Regular Shoe Pain Scale: 0-10 Numeric Is Patient Pain Free? Yes Yes Communication Assessment Preferred language Mohawk Formulation Chemist Required No Able to Read Yes Able to Write Yes Communication Tools None Right Hearing Abillity Normal Left Hearing Abillity Normal Visual Assistive Devices None Teaching Assessment Preferences Verbal,Written, Audio/Visual, Demonstration Barriers to Learning None Readiness To Learn Excellent Willingness to Engage in Self Management High Activies Readiness to Engage in Self Management High Activities Anxiety Level Calm Cooperation Cooperative Perception Coherent Interest in Health Problem Asks Questions Education Importance Acknowledges Need Does Patient Smoke tobacco or other No substances Smoking Status Never smoker Is Patient Diabetic No Functional Assessment Recent Decline in Ability to Perform Denies Any Declines Culture/Evangelical/Broadcast Traffic Coordinator Cultural/Evangelical Needs that may affect No Treatment Plan Teaching: Wound Center *Welcome to the Wound Center -Person Taught Patient,Family -Teaching Method Discussion -Response to teaching Verbalize understanding Welcome to the Wound Care Center English RAND - Nurse 1 - General Ulcer Measurement Start: 12/06/20 09:47 Freq: Status: Active Protocol: Activity Type Activity Date Activity User E-Sign Co-Sign Detail Recorded Client Recorded Date Recorded By Document 12/06/20 10:14 AK [id number] 12/06/20 10:20 AK Document 12/13/20 10:12 JF [id number] 12/13/20 10:14 12/06/20 12/13/20 10:14 10:12 Wound Center Nurse 1 #1- L GERMAN POST OP -Combined with other wound No No -Current Size (cm) - Length 10.2 11 -Current Size (cm) - Width 7 6.8 -Current Size (cm) - Depth 0.7 0.8 -Total Square Cm 71.4 74.8 -Date of Last Picture (Recall this 12/06/20 field) -Photo Taken Yes No -Epithelialization None Present Small 1-33% -Tunneling No No -Undermining/Tunneling No No -Circular Undermining No No -Exudate Amt Large Medium -Exudate Type Serosanguineous Serosanguineous -Wound Margin Distinct, Flat & Intact Outline Attached -Granulation Amt Medium (34-66%) Large (67-100%) -Granulation Quality Red Red -Slough/Fibrin Yes Yes -Necrosis Amt Medium (34-66%) Small (1-33%) -Necrotic Tissue Type Adherent Slough Adherent Slough -Structure Exposed N/A -Texture (Mackenzie-wound Skin Appearance) Assessed, Assessed, Scarring Localized Edema -Moisture (Mackenzie-wound Skin Appearance) Assessed Assessed,Dry/ Scaly -Color (Mackenzie-wound Skin Appearance) Assessed Assessed -Temperature (Mackenzie-wound Skin No Abnormality No Abnormality Appearance) (Pt Warm) (Pt Warm) -Tenderness on Palpation (Mackenzie-wound No No Skin Appearance) -Ulcer Cleansing Soap and Water Wound Cleanser -Foul Odor after Cleansing No No -Anesthetic Used 4% Lidocaine 4% Lidocaine Solution Solution Lower Limb Edema Present Yes Yes Right Calf (cm) 41.5 Right Ankle (cm) 28 Left Calf (cm) 43.2 Left Ankle (cm) 27.3 WC - Nurse 2 - General Ulcer CM Notes Start: 12/06/20 09:47 Freq: Status: Active Protocol: Activity Type Activity Date Activity User E-Sign Co-Sign Detail Recorded Client Recorded Date Recorded By Document 12/06/20 10:36 [id number] 12/06/20 10:40 Document 12/13/20 10:22 [id number] 12/13/20 10:25 12/06/20 12/13/20 10:36 10:22 Wound Center Nurse 2 #1- L GERMAN POST OP -Time 10:36 10:23 -Correct Patient Yes Yes -Correct Side, Site, Position Yes Yes -Correct Procedure Yes Yes -Procedure Performed Yes Yes -Type of Procedure Debridement Debridement -Clinical Debridement Muscle / Fascia Muscle / Fascia -Tissue Removed Muscle Muscle -Post Debridement (cm) - Length 11.5 11.3 -Post Debridement (cm) - Width 7.4 7 -Post Debridement (cm) - Depth 0.9 0.7 -Total Square (Post) (cm) 85.10 79.1 -Area of Debridement (cm) - Length 11.5 11.3 -Area of Debridement (cm) - Width 7.4 7 -Total Square (Area) (cm) 85.10 79.1 -Tunneling No No -Undermining/Tunneling No No -Circular Undermining No No -Wound/Ulcer Outcome Not Healed Not Healed -Ulcer Cleansing Rinsed/ Irrigated with Saline -Foul Odor after Cleansing No No -Bioengineered Tissue No No -Bleeding Controlled with Pressure Pressure -Offloading No No -Treatment Response Procedure Procedure Tolerated Well Tolerated Well -Debridement - Muscle / Fascia, 1st Yes Yes 20sq cm -Debridement, Muscle/Fascia, ea addt'l 4 3 20sq cm or part thereof Pain Scale: 0-10 Numeric Is Patient Pain Free? Yes Yes - Nurse 3 - General Ulcer D/C NN Start: 12/06/20 09:47 Freq: Status: Active Protocol: Activity Type Activity Date Activity User E-Sign Co-Sign Detail Recorded Client Recorded Date Recorded By Document 12/06/20 10:52 KR [id number] 12/06/20 10:52 KR Document 12/13/20 10:41 DL [id number] 12/13/20 10:42 DL 12/06/20 12/13/20 10:52 10:41 Wound Care Nurse 3 #1- L GERMAN POST OP -Ulcer Cleansing Rinsed/ Irrigated with Saline -Foul Odor after Cleansing No -Other Dressing wet to dry moist gauze -Primary Dressing Covered/Secured with Dry Gauze,Dry Dry Gauze & Gauze & Roll Roll Gauze, Gauze,Secured Secured with with Tape Tape Treatment Response Procedure Tolerated Well Pain Scale: 0-10 Numeric Is Patient Pain Free? Yes Yes - Visit Discharge Discharge Condition Stable Stable Ambulatory Status Ambulatory Ambulatory Transportation Private Auto Accompanied by Notes: Pt.to resume vac at home today per Home Health. Assessment/Plan Assessment/Plan (1) Open wound of left lower leg due to animal bite: CODE(S): S81.852A - Open bite, left lower leg, initial encounter (2) Abscess of left lower leg: CODE(S): L02.416 - Cutaneous abscess of left lower limb (3) Skin necrosis: CODE(S): I96 - Gangrene, not elsewhere classified (4) Lupus: CODE(S): M32.9 - Systemic lupus erythematosus, unspecified PLAN: Wound care - Wound VAC at 150 mmHg three times per week. Wash ulcer with soap and water at the time of the VAC change. YAHAIRA wrap for compression. Operative cultures positive for Enterococcus avium, Enterococcus gallinarum, Turicella otitidis and Bacteroides thetaiotaomicron. She has completed the Linezolid and the Flagyl. Follow up one week.
[2020-12-20 11:18] VITALS: BP 150/73; PULSE 82; RESP 16; TEMP 36.3; BMI 36.0
--- NOTE | 2020-12-20 12:37 | PCM.WC.PN ---
History of Present Illness Date of Service: 12/20/20 Chief Complaint: Left anterior leg ulcer after being bitten by a pet potbelly pig History of Wound: 70 year old F who was attacked by her pet potbelly pig on 11/08/20 and sustained a complex wound laceration to her left anterior leg. In the ED the wounds were cleansed and suture closed. She was discharged on Cipro and Clindamycin. A week later she saw her PCP because of increasing redness and pain and swelling who started her on daily injections of Ceftriaxone and added Flagyl. There was some improvement but the redness and swelling was persistent. She went to the ED on 11/17/20 for further evaluation. X-ray showed no fracture and no foreign body. WBC was normal at 6.7. Lactate was 1.0. She was admitted and started on Vancomycin and Cefazolin. Surgery 11/19/20 - Surgical preparation left anterior leg with incision and drainage and excisional debridement pig bite wound infection abscess with skin necrosis (96 cm2). Wound care - Wound VAC at 150 mmHg three times per week. Wash ulcer with soap and water at the time of the VAC change. YAHAIRA wrap for compression. Operative cultures positive for Enterococcus avium, Enterococcus gallinarum, Turicella otitidis and Bacteroides thetaiotaomicron. She was started on Linezolid and Flagyl. She has completed the Flagyl and the Linezolid. Today she denies any fevers, chills, nausea or vomiting. She states her appetite is good and she has increased her protein intake. Progress of Wound: Improved. Objective Data Objective Data Vital Signs: Vital Signs Temp Pulse Resp BP 97.3 F L 82 16 150/73 H 12/20/20 11:18 12/20/20 11:18 12/20/20 11:18 12/20/20 11:18 Oxygen Delivery Method Room Air Weight: 230 lb Body Mass Index (BMI) 36.0 Charges/Coding Procedures Integumentary 111xxx-113xx: [id number] Global Visit Physical Exam Const alert and oriented x3 General Appearance: cooperative HEENT normocephalic Lymph Lymphatic: no lymphedema noted Resp normal respiratory effort Cardio regular rate GI Palpation: soft Extremity no calf tenderness General Extremity: edema Skin Wound Narrative: Left anterior leg wound into the muscle. Beefy pink in color. Neuro CN's II-XII intact bilaterally Psych Appearance: grossly normal Debridement Note Debridement Note Wound debrided: anterior leg wound Laterality: Left Wound Grade/Stage: Stage IV Type of Debridement: Excisional debridement Anesthesia Used: 5% Lidocaine Gel Depth: Down to and including healthy tissue, in the subcutaneous layer and to muscle Percentage of wound debrided: 100 Instrument Used: 7mm curette Tissue Removed: Subcutaneous tissue and slough into the muscle Severity: Fat Layer Exposed Amount of bleeding with debridement: Mild Bleeding Controlled with: Pressure Patient tolerated procedure: Patient tolerated procedure well Post-Debridement Measurements and Additional Note: Post-Debridement Measurements/Treatment - Nurse 1 - General Ulcer Assessment Start: 12/06/20 09:47 Freq: Status: Active Protocol: RUBIA Activity Type Activity Date Activity User E-Sign Co-Sign Detail Recorded Client Recorded Date Recorded By Document 12/06/20 10:14 AK [id number] 12/06/20 10:20 AK Document 12/13/20 10:12 JF [id number] 12/13/20 10:14 JF Document 12/20/20 11:18 ML [id number] 12/20/20 11:29 ML 12/06/20 12/13/20 12/20/20 10:14 10:12 11:18 - Today's Visit Information Type of service Initial Visit Follow-up Visit Follow-up Visit (Physician/REDIPPER (Physician/REDIPPER ) ) Arrival Mode Ambulatory Ambulatory Ambulatory Transfer Assistance None Accompanied by Patient Identification Verified (Name & Yes Yes Yes ) Patient Requires Transmission-Based No No No Precautions Safety Precautions NA Height and Weight Height 5 ft 7 in Weight 230 lb Weight in Pounds 230.0 lbs Weight Measurement Method Estimated by Patient Body Mass Index (BMI) 36.0 36.0 36.0 BMI Classification Obese Obese Obese BSA - Karlo 2.15 Vital Signs Temperature (97.8 F-99.1 F) 97.2 F L 97.5 F L 97.3 F L Temperature Source Temporal Temporal Temporal Pulse Rate (60-100) 97 107 H 82 Pulse Location Monitor Monitor Monitor Respiratory Rate (12-18) 16 18 16 Respiratory rate source Observation Observation Observation Oxygen Delivery Method Room Air Blood Pressure (90/60-120/80) 116/75 139/76 H 150/73 H Blood Pressure Mean (mm Hg) 88 97 98 Source Monitor Monitor Monitor Position Sitting Semi-Fowlers Sitting Blood Pressure Location Right Arm Left Arm Left Arm Have you changed medications since your No No last visit? Any new allergies or adverse reactions No No Had a fall/change in ADL's that may No No increase risk of falls Signs or symptoms of abuse and/or No No neglect since last visit Have you been in the hospital since your No No last visit? Has dressing in place as prescribed Yes Yes Has compression in place as prescribed Yes Yes Has offloadiing in place as prescribed N/A N/A Experienced any changes in pain level or No No management History Since Last Visit- (Skip if this is Patient's initial visit) Left Footwear Regular Shoe Regular Shoe Regular Shoe Right Footwear Regular Shoe Regular Shoe Regular Shoe Pain Scale: 0-10 Numeric Is Patient Pain Free? 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 Required No Able to Read Yes Able to Write Yes Communication Tools None Right Hearing Abillity Normal Left Hearing Abillity Normal Visual Assistive Devices None Teaching Assessment Preferences Verbal,Written, Audio/Visual, Demonstration Barriers to Learning None Readiness To Learn Excellent Willingness to Engage in Self Management High Activies Readiness to Engage in Self Management High Activities Anxiety Level Calm Cooperation Cooperative Perception Coherent Interest in Health Problem Asks Questions Education Importance Acknowledges Need Does Patient Smoke tobacco or other No substances Smoking Status Never smoker Is Patient Diabetic No Functional Assessment Recent Decline in Ability to Perform Denies Any Declines Culture/Jehovah'S Witness/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 Cultural/Jehovah'S Witness Needs that may affect No Treatment Plan Teaching: Wound Center *Welcome to the Wound Center -Person Taught Patient,Family -Teaching Method Discussion -Response to teaching Verbalize understanding Welcome to the Wound Care Center English RAND - Nurse 1 - General Ulcer Measurement Start: 12/06/20 09:47 Freq: Status: Active Protocol: Activity Type Activity Date Activity User E-Sign Co-Sign Detail Recorded Client Recorded Date Recorded By Document 12/06/20 10:14 AK [id number] 12/06/20 10:20 AK Document 12/13/20 10:12 JF [id number] 12/13/20 10:14 JF Document 12/20/20 11:18 ML [id number] 12/20/20 11:29 ML 12/06/20 12/13/20 12/20/20 10:14 10:12 11:18 Wound Center Nurse 1 #1- L GERMAN POST OP -Combined with other wound No No -Current Size (cm) - Length 10.2 11 10 -Current Size (cm) - Width 7 6.8 6.7 -Current Size (cm) - Depth 0.7 0.8 0.5 -Total Square Cm 71.4 74.8 67.0 -Date of Last Picture (Recall this 12/06/20 field) -Photo Taken Yes No -Epithelialization None Present Small 1-33% -Tunneling No No -Undermining/Tunneling No No -Circular Undermining No No -Exudate Amt Large Medium Medium -Exudate Type Serosanguineous Serosanguineous Serosanguineous -Wound Margin Distinct, Flat & Intact Distinct, Outline Outline Attached Attached -Granulation Amt Medium (34-66%) Large (67-100%) Medium (34-66%) -Granulation Quality Red Red -Slough/Fibrin Yes Yes Yes -Necrosis Amt Medium (34-66%) Small (1-33%) Medium (34-66%) -Necrotic Tissue Type Adherent Slough Adherent Slough Adherent Slough -Structure Exposed N/A -Texture (Mackenzie-wound Skin Appearance) Assessed, Assessed, Assessed Scarring Localized Edema -Moisture (Mackenzie-wound Skin Appearance) Assessed Assessed,Dry/ Assessed Scaly -Color (Mackenzie-wound Skin Appearance) Assessed Assessed Assessed -Temperature (Mackenzie-wound Skin No Abnormality No Abnormality No Abnormality Appearance) (Pt Warm) (Pt Warm) (Pt Warm) -Tenderness on Palpation (Mackenzie-wound No No No Skin Appearance) -Ulcer Cleansing Soap and Water Wound Cleanser Soap and Water -Foul Odor after Cleansing No No No -Anesthetic Used 4% Lidocaine 4% Lidocaine 4% Lidocaine Solution Solution Solution Lower Limb Edema Present Yes Yes Right Calf (cm) 41.5 Right Ankle (cm) 28 Left Calf (cm) 43.2 Left Ankle (cm) 27.3 WC - Nurse 2 - General Ulcer CM Notes Start: 12/06/20 09:47 Freq: Status: Active Protocol: Activity Type Activity Date Activity User E-Sign Co-Sign Detail Recorded Client Recorded Date Recorded By Document 12/06/20 10:36 SHAQ [id number] 12/06/20 10:40 SHAQ Document 12/13/20 10:22 SHAQ [id number] 12/13/20 10:25 Document 12/20/20 12:12 SHAQ [id number] 12/20/20 12:14 JF 12/06/20 12/13/20 12/20/20 10:36 10:22 12:12 Wound Center Nurse 2 #1- L [place] POST OP -Time 10:36 10:23 12:12 -Correct Patient Yes Yes Yes -Correct Side, Site, Position Yes Yes Yes -Correct Procedure Yes Yes Yes -Procedure Performed Yes Yes Yes -Type of Procedure Debridement Debridement Debridement -Clinical Debridement Muscle / Fascia Muscle / Fascia Muscle / Fascia -Tissue Removed Muscle Muscle Muscle -Post Debridement (cm) - Length 11.5 11.3 10.2 -Post Debridement (cm) - Width 7.4 7 6.2 -Post Debridement (cm) - Depth 0.9 0.7 0.8 -Total Square (Post) (cm) 85.10 79.1 63.24 -Area of Debridement (cm) - Length 11.5 11.3 10.2 -Area of Debridement (cm) - Width 7.4 7 6.2 -Total Square (Area) (cm) 85.10 79.1 63.24 -Tunneling No No No -Undermining/Tunneling No No -Circular Undermining No No No -Wound/Ulcer Outcome Not Healed Not Healed Not Healed -Ulcer Cleansing Rinsed/ Rinsed/ Irrigated with Irrigated with Saline Saline -Foul Odor after Cleansing No No No -Bioengineered Tissue No No No -Bleeding Controlled with Pressure Pressure Pressure -Offloading No No No -Treatment Response Procedure Procedure Tolerated Well Tolerated Well -Debridement - Muscle / Fascia, 1st Yes Yes Yes 20sq cm -Debridement, Muscle/Fascia, ea addt'l 4 3 3 20sq cm or part thereof Pain Scale: 0-10 Numeric Is Patient Pain Free? Yes Yes Yes WC - Nurse 3 - General Ulcer D/C NN Start: 12/06/20 09:47 Freq: Status: Active Protocol: Activity Type Activity Date Activity User E-Sign Co-Sign Detail Recorded Client Recorded Date Recorded By Document 12/06/20 10:52 KR [id number] 12/06/20 10:52 KR Document 12/13/20 10:41 DL [id number] 12/13/20 10:42 DL Document 12/20/20 12:26 DL [id number] 12/20/20 12:27 DL 12/06/20 12/13/20 12/20/20 10:52 10:41 12:26 Wound Care Nurse 3 #1- L GER[place] POST OP -Ulcer Cleansing Rinsed/ Rinsed/ Irrigated with Irrigated with Saline Saline -Foul Odor after Cleansing No No -Other Dressing wet to dry moist gauze moist gauze -Primary Dressing Covered/Secured with Dry Gauze,Dry Dry Gauze & Dry Gauze & Gauze & Roll Roll Gauze, Roll Gauze, Gauze,Secured Secured with Secured with with Tape Tape Tape Treatment Response Procedure Procedure Tolerated Well Tolerated Well Pain Scale: 0-10 Numeric Is Patient Pain Free? Yes Yes Yes WC - Visit Discharge Discharge Condition Stable Stable Stable Ambulatory Status Ambulatory Ambulatory Ambulatory Transportation Private Auto Private Auto Accompanied by Notes: Pt.to resume vac at home today per Home Health. Facility Type Home Health Notes: resume vac at home Orders Sent Yes Assessment/Plan Assessment/Plan (1) Open wound of left lower leg due to animal bite: CODE(S): S81.852A - Open bite, left lower leg, initial encounter (2) Abscess of left lower leg: CODE(S): L02.416 - Cutaneous abscess of left lower limb (3) Skin necrosis: CODE(S): I96 - Gangrene, not elsewhere classified (4) Lupus: CODE(S): M32.9 - Systemic lupus erythematosus, unspecified PLAN: Wound care - Wound VAC at 150 mmHg three times per week. Wash ulcer with soap and water at the time of the VAC change. YAHAIRA wrap for compression. Encouraged her to try and keep her legs elevated. She has increased edema this week, but she has been on her feet more than usual because she moved over the weekend. Operative cultures positive for Enterococcus avium, Enterococcus gallinarum, Turicella otitidis and Bacteroides thetaiotaomicron. She has completed the Linezolid and the Flagyl. Follow up one week.
[2020-12-27 10:29] VITALS: BP 167/59; PULSE 83; TEMP 36.4; BMI 36.0
--- NOTE | 2020-12-27 13:03 | PN.PCM_ITS ---
History of Present Illness Date of Service: 12/27/20 Chief Complaint: Left anterior leg ulcer after being bitten by a pet potbelly pig History of Wound: 70 year old F who was attacked by her pet potbelly pig on 11/08/20 and sustained a complex wound laceration to her left anterior leg. In the ED the wounds were cleansed and suture closed. She was discharged on Cipro and Clindamycin. A week later she saw her PCP because of increasing redness and pain and swelling who started her on daily injections of Ceftriaxone and added Flagyl. There was some improvement but the redness and swelling was persistent. She went to the ED on 11/17/20 for further evaluation. X-ray showed no fracture and no foreign body. WBC was normal at 6.7. Lactate was 1.0. She was admitted and started on Vancomycin and Cefazolin. Surgery 11/19/20 - Surgical preparation left anterior leg with incision and drainage and excisional debridement pig bite wound infection abscess with skin necrosis (96 cm2). Wound care - Wound VAC at 150 mmHg three times per week. Wash ulcer with soap and water at the time of the VAC change. YAHAIRA wrap for compression. Operative cultures positive for Enterococcus avium, Enterococcus gallinarum, Turicella otitidis and Bacteroides thetaiotaomicron. She was started on Linezolid and Flagyl. She has completed the Flagyl and the Linezolid. Today she denies any fevers, chills, nausea or vomiting. She states her appetite is good and she has increased her protein intake. Progress of Wound: Stable. Objective Data Objective Data Vital Signs: Vital Signs Temp Pulse Resp BP 97.5 F L 83 16 167/59 H 12/27/20 10:29 12/27/20 10:29 12/20/20 11:18 12/27/20 10:29 Oxygen Delivery Method Room Air Weight: 230 lb Body Mass Index (BMI) 36.0 Charges/Coding Procedures Integumentary 111xxx-113xx: [id number] Global Visit Physical Exam Const alert and oriented x3 General Appearance: cooperative HEENT normocephalic Resp normal respiratory effort Cardio regular rate GI Palpation: soft Extremity normal capillary refill Extremity Narrative: Bilateral lower extremity +1 edema General Extremity: edema Skin Wound Narrative: Left anterior leg ulcer beefy pink with good granulation tissue. Neuro CN's II-XII intact bilaterally Psych Appearance: grossly normal Debridement Note Debridement Note Wound debrided: Anterior leg ulcer Laterality: Left Type of Debridement: Excisional debridement Depth: Down to and including healthy tissue, in the subcutaneous layer and to muscle Instrument Used: 7mm curette Tissue Removed: Subcutaneous tissue and slough into the muscle Severity: Fat Layer Exposed Amount of bleeding with debridement: Mild Bleeding Controlled with: Pressure and Compression and gauze Patient tolerated procedure: Patient tolerated procedure well Post-Debridement Measurements and Additional Note: Post-Debridement Measurements/Treatment WC - Nurse 1 - General Ulcer Assessment Start: 12/06/20 09:47 Freq: Status: Active Protocol: GIORGI.eCareer Activity Type Activity Date Activity User E-Sign Co-Sign Detail Recorded Client Recorded Date Recorded By Document 12/06/20 10:14 AK [id number] 12/06/20 10:20 AK Document 12/13/20 10:12 JF [id number] 12/13/20 10:14 JF Document 12/20/20 11:18 ML [id number] 12/20/20 11:29 ML Document 12/27/20 10:29 DL [id number] 12/27/20 10:33 DL 12/06/20 12/13/20 12/20/20 10:14 10:12 11:18 - Today's Visit Information Type of service Initial Visit Follow-up Visit Follow-up Visit (Physician/DIPLOMA PHARMACY TECHNICIAN (Physician/DIPLOMA PHARMACY TECHNICIAN ) ) Arrival Mode Ambulatory Ambulatory Ambulatory Transfer Assistance None Accompanied by Patient Identification Verified (Name & Yes Yes Yes ) Patient Requires Transmission-Based No No No Precautions Safety Precautions NA Height and Weight Height 5 ft 7 in Weight 230 lb Weight in Pounds 230.0 lbs Weight Measurement Method Estimated by Patient Body Mass Index (BMI) 36.0 36.0 36.0 BMI Classification Obese Obese Obese BSA - Karlo 2.15 Vital Signs Temperature (97.8 F-99.1 F) 97.2 F L 97.5 F L 97.3 F L Temperature Source Temporal Temporal Temporal Pulse Rate (60-100) 97 107 H 82 Pulse Location Monitor Monitor Monitor Respiratory Rate (12-18) 16 18 16 Respiratory rate source Observation Observation Observation Oxygen Delivery Method Room Air Blood Pressure (90/60-120/80) 116/75 139/76 H 150/73 H Blood Pressure Mean (mm Hg) 88 97 98 Source Monitor Monitor Monitor Position Sitting Semi-Fowlers Sitting Blood Pressure Location Right Arm Left Arm Left Arm Have you changed medications since your No No last visit? Any new allergies or adverse reactions No No Had a fall/change in ADL's that may No No increase risk of falls Signs or symptoms of abuse and/or No No neglect since last visit Have you been in the hospital since your No No last visit? Has dressing in place as prescribed Yes Yes Has compression in place as prescribed Yes Yes Has offloadiing in place as prescribed N/A N/A Experienced any changes in pain level or No No management History Since Last Visit- (Skip if this is Patient's initial visit) Left Footwear Regular Shoe Regular Shoe Regular Shoe Right Footwear Regular Shoe Regular Shoe Regular Shoe Pain Scale: 0-10 Numeric Is Patient Pain Free? Yes Yes Yes Communication Assessment Preferred language Romansh Combo Welder Required No Able to Read Yes Able to Write Yes Communication Tools None Right Hearing Abillity Normal Left Hearing Abillity Normal Visual Assistive Devices None Teaching Assessment Preferences Verbal,Written, Audio/Visual, Demonstration Barriers to Learning None Readiness To Learn Excellent Willingness to Engage in Self Management High Activies Readiness to Engage in Self Management High Activities Anxiety Level Calm Cooperation Cooperative Perception Coherent Interest in Health Problem Asks Questions Education Importance Acknowledges Need Does Patient Smoke tobacco or other No substances Smoking Status Never smoker Is Patient Diabetic No Functional Assessment Recent Decline in Ability to Perform Denies Any Declines Culture/Mandaeism/Creel Clerk Cultural/Mandaeism Needs that may affect No Treatment Plan Teaching: Wound Center *Welcome to the Wound Center -Person Taught Patient,Family -Teaching Method Discussion -Response to teaching Verbalize understanding Welcome to the Wound Care Center Romansh 12/27/20 10:29 - Today's Visit Information Type of service Follow-up Visit (Physician/DIPLOMA PHARMACY TECHNICIAN ) Arrival Mode Ambulatory Transfer Assistance Accompanied by Patient Identification Verified (Name & Yes ) Patient Requires Transmission-Based Precautions Safety Precautions Height and Weight Height Weight Weight in Pounds Weight Measurement Method Body Mass Index (BMI) 36.0 BMI Classification Obese BSA - Karlo Vital Signs Temperature (97.8 F-99.1 F) 97.5 F L Temperature Source Temporal Pulse Rate (60-100) 83 Pulse Location Monitor Respiratory Rate (12-18) Respiratory rate source Oxygen Delivery Method Blood Pressure (90/60-120/80) 167/59 H Blood Pressure Mean (mm Hg) 95 Source Monitor Position Sitting Blood Pressure Location Right Arm Have you changed medications since your No last visit? Any new allergies or adverse reactions No Had a fall/change in ADL's that may No increase risk of falls Signs or symptoms of abuse and/or No neglect since last visit Have you been in the hospital since your No last visit? Has dressing in place as prescribed Yes Has compression in place as prescribed Yes Has offloadiing in place as prescribed N/A Experienced any changes in pain level or No management History Since Last Visit- (Skip if this is Patient's initial visit) Left Footwear Regular Shoe Right Footwear Regular Shoe Pain Scale: 0-10 Numeric Is Patient Pain Free? Yes Communication Assessment Preferred speech and language tutor Required Able to Read Able to Write Communication Tools Right Hearing Abillity Left Hearing Abillity Visual Assistive Devices Teaching Assessment Preferences Barriers to Learning Readiness To Learn Willingness to Engage in Self Management Activies Readiness to Engage in Self Management Activities Anxiety Level Cooperation Perception Interest in Health Problem Education Importance Does Patient Smoke tobacco or other substances Smoking Status Is Patient Diabetic Functional Assessment Recent Decline in Ability to Perform Culture/Mandaeism/Creel Clerk Cultural/Mandaeism Needs that may affect Treatment Plan Teaching: Wound Center *Welcome to the Wound Center -Person Taught -Teaching Method -Response to teaching Welcome to the Wound Care Center WC - Nurse 1 - General Ulcer Measurement Start: 12/06/20 09:47 Freq: Status: Active Protocol: Activity Type Activity Date Activity User E-Sign Co-Sign Detail Recorded Client Recorded Date Recorded By Document 12/06/20 10:14 AK [id number] 12/06/20 10:20 AK Document 12/13/20 10:12 JF [id number] 12/13/20 10:14 JF Document 12/20/20 11:18 ML [id number] 12/20/20 11:29 ML Document 12/27/20 10:29 DL [id number] 12/27/20 10:33 DL 12/06/20 12/13/20 12/20/20 10:14 10:12 11:18 Wound Center Nurse 1 #1- L GERMAN POST OP -Combined with other wound No No -Current Size (cm) - Length 10.2 11 10 -Current Size (cm) - Width 7 6.8 6.7 -Current Size (cm) - Depth 0.7 0.8 0.5 -Total Square Cm 71.4 74.8 67.0 -Date of Last Picture (Recall this 12/06/20 field) -Photo Taken Yes No -Epithelialization None Present Small 1-33% -Tunneling No No -Undermining/Tunneling No No -Circular Undermining No No -Exudate Amt Large Medium Medium -Exudate Type Serosanguineous Serosanguineous Serosanguineous -Wound Margin Distinct, Flat & Intact Distinct, Outline Outline Attached Attached -Granulation Amt Medium (34-66%) Large (67-100%) Medium (34-66%) -Granulation Quality Red Red -Slough/Fibrin Yes Yes Yes -Necrosis Amt Medium (34-66%) Small (1-33%) Medium (34-66%) -Necrotic Tissue Type Adherent Slough Adherent Slough Adherent Slough -Structure Exposed N/A -Texture (Mackenzie-wound Skin Appearance) Assessed, Assessed, Assessed Scarring Localized Edema -Moisture (Mackenzie-wound Skin Appearance) Assessed Assessed,Dry/ Assessed Scaly -Color (Mackenzie-wound Skin Appearance) Assessed Assessed Assessed -Temperature (Mackenzie-wound Skin No Abnormality No Abnormality No Abnormality Appearance) (Pt Warm) (Pt Warm) (Pt Warm) -Tenderness on Palpation (Mackenzie-wound No No No Skin Appearance) -Ulcer Cleansing Soap and Water Wound Cleanser Soap and Water -Foul Odor after Cleansing No No No -Anesthetic Used 4% Lidocaine 4% Lidocaine 4% Lidocaine Solution Solution Solution Lower Limb Edema Present Yes Yes Right Calf (cm) 41.5 Right Ankle (cm) 28 Left Calf (cm) 43.2 Left Ankle (cm) 27.3 12/27/20 10:29 Wound Center Nurse 1 #1- L GERMAN POST OP -Combined with other wound -Current Size (cm) - Length 9.9 -Current Size (cm) - Width 5.8 -Current Size (cm) - Depth 0.8 -Total Square Cm 57.42 -Date of Last Picture (Recall this field) -Photo Taken -Epithelialization -Tunneling -Undermining/Tunneling -Circular Undermining -Exudate Amt Medium -Exudate Type Serosanguineous -Wound Margin Distinct, Outline Attached -Granulation Amt Large (67-100%) -Granulation Quality Red -Slough/Fibrin -Necrosis Amt None Present (0 %) -Necrotic Tissue Type -Structure Exposed -Texture (Mackenzie-wound Skin Appearance) Assessed, Scarring -Moisture (Mackenzie-wound Skin Appearance) No Abnormality, Assessed -Color (Mackenzie-wound Skin Appearance) No Abnormality, Assessed -Temperature (Mackenzie-wound Skin No Abnormality Appearance) (Pt Warm) -Tenderness on Palpation (Mackenzie-wound No Skin Appearance) -Ulcer Cleansing Rinsed/ Irrigated with Saline -Foul Odor after Cleansing No -Anesthetic Used 4% Lidocaine Solution Lower Limb Edema Present Right Calf (cm) Right Ankle (cm) Left Calf (cm) Left Ankle (cm) WC - Nurse 2 - General Ulcer CM Notes Start: 12/06/20 09:47 Freq: Status: Active Protocol: Activity Type Activity Date Activity User E-Sign Co-Sign Detail Recorded Client Recorded Date Recorded By Document 12/06/20 10:36 [id number] 12/06/20 10:40 Document 12/13/20 10:22 [id number] 12/13/20 10:25 Document 12/20/20 12:12 [id number] 12/20/20 12:14 Document 12/27/20 10:50 [id number] 12/27/20 10:52 12/06/20 12/13/20 12/20/20 10:36 10:22 12:12 Wound Center Nurse 2 #1- L GERMAN POST OP -Time 10:36 10:23 12:12 -Correct Patient Yes Yes Yes -Correct Side, Site, Position Yes Yes Yes -Correct Procedure Yes Yes Yes -Procedure Performed Yes Yes Yes -Type of Procedure Debridement Debridement Debridement -Clinical Debridement Muscle / Fascia Muscle / Fascia Muscle / Fascia -Tissue Removed Muscle Muscle Muscle -Post Debridement (cm) - Length 11.5 11.3 10.2 -Post Debridement (cm) - Width 7.4 7 6.2 -Post Debridement (cm) - Depth 0.9 0.7 0.8 -Total Square (Post) (cm) 85.10 79.1 63.24 -Area of Debridement (cm) - Length 11.5 11.3 10.2 -Area of Debridement (cm) - Width 7.4 7 6.2 -Total Square (Area) (cm) 85.10 79.1 63.24 -Tunneling No No No -Undermining/Tunneling No No -Circular Undermining No No No -Wound/Ulcer Outcome Not Healed Not Healed Not Healed -Ulcer Cleansing Rinsed/ Rinsed/ Irrigated with Irrigated with Saline Saline -Foul Odor after Cleansing No No No -Bioengineered Tissue No No No -Bleeding Controlled with Pressure Pressure Pressure -Offloading No No No -Treatment Response Procedure Procedure Tolerated Well Tolerated Well -Debridement - Muscle / Fascia, 1st Yes Yes Yes 20sq cm -Debridement, Muscle/Fascia, ea addt'l 4 3 3 20sq cm or part thereof Pain Scale: 0-10 Numeric Is Patient Pain Free? Yes Yes Yes 12/27/20 10:50 Wound Center Nurse 2 #1- L GERMAN POST OP -Time 10:50 -Correct Patient Yes -Correct Side, Site, Position Yes -Correct Procedure Yes -Procedure Performed Yes -Type of Procedure Debridement -Clinical Debridement Muscle / Fascia -Tissue Removed Muscle -Post Debridement (cm) - Length 10 -Post Debridement (cm) - Width 6.5 -Post Debridement (cm) - Depth 0.7 -Total Square (Post) (cm) 65.0 -Area of Debridement (cm) - Length 10 -Area of Debridement (cm) - Width 6.5 -Total Square (Area) (cm) 65.0 -Tunneling No -Undermining/Tunneling No -Circular Undermining No -Wound/Ulcer Outcome Not Healed -Ulcer Cleansing Rinsed/ Irrigated with Saline -Foul Odor after Cleansing No -Bioengineered Tissue No -Bleeding Controlled with Pressure -Offloading No -Treatment Response Procedure Tolerated Well -Debridement - Muscle / Fascia, 1st Yes 20sq cm -Debridement, Muscle/Fascia, ea addt'l 3 20sq cm or part thereof Pain Scale: 0-10 Numeric Is Patient Pain Free? Yes - Nurse 3 - General Ulcer D/C NN Start: 12/06/20 09:47 Freq: Status: Active Protocol: Activity Type Activity Date Activity User E-Sign Co-Sign Detail Recorded Client Recorded Date Recorded By Document 12/06/20 10:52 KR [id number] 12/06/20 10:52 KR Document 12/13/20 10:41 DL [id number] 12/13/20 10:42 DL Document 12/20/20 12:26 DL [id number] 12/20/20 12:27 DL Document 12/27/20 11:10 DL [id number] 12/27/20 11:11 DL 12/06/20 12/13/20 12/20/20 10:52 10:41 12:26 Wound Care Nurse 3 #1- L GERMAN POST OP -Ulcer Cleansing Rinsed/ Rinsed/ Irrigated with Irrigated with Saline Saline -Foul Odor after Cleansing No No -Other Dressing wet to dry moist gauze moist gauze -Primary Dressing Covered/Secured with Dry Gauze,Dry Dry Gauze & Dry Gauze & Gauze & Roll Roll Gauze, Roll Gauze, Gauze,Secured Secured with Secured with with Tape Tape Tape Treatment Response Procedure Procedure Tolerated Well Tolerated Well Pain Scale: 0-10 Numeric Is Patient Pain Free? Yes Yes Yes WC - Visit Discharge Discharge Condition Stable Stable Stable Ambulatory Status Ambulatory Ambulatory Ambulatory Transportation Private Auto Private Auto Accompanied by Notes: Pt.to resume vac at home today per Home Health. Facility Type Home Health Notes: resume vac at home Orders Sent Yes 12/27/20 11:10 Wound Care Nurse 3 #1- L GERMAN POST OP -Ulcer Cleansing Rinsed/ Irrigated with Saline -Foul Odor after Cleansing No -Other Dressing moist gauze -Primary Dressing Covered/Secured with Dry Gauze & Roll Gauze, Secured with Tape Treatment Response Procedure Tolerated Well Pain Scale: 0-10 Numeric Is Patient Pain Free? Yes WC - Visit Discharge Discharge Condition Stable Ambulatory Status Ambulatory Transportation Private Auto Accompanied by Notes: Facility Type Home Health Notes: Orders Sent Yes Assessment/Plan Assessment/Plan (1) Ulcer of left lower extremity with fat layer exposed: CODE(S): L97.922 - Non-pressure chronic ulcer of unspecified part of left lower leg with fat layer exposed (2) History of excision of lesion: CODE(S): Z98.890 - Other specified postprocedural states; Z87.2 - Personal history of diseases of the skin and subcutaneous tissue (3) Lupus: CODE(S): M32.9 - Systemic lupus erythematosus, unspecified (4) Animal bite: CODE(S): T14.8XXA - Other injury of unspecified body region, initial encounter (5) Edema: CODE(S): R60.9 - Edema, unspecified QUALIFIERS: Edema type: unspecified Qualified Code(s): R60.9 - Edema, unspecified PLAN: Wound care - Wound VAC at 150 mmHg three times per week. Wash ulcer with soap and water at the time of the VAC change. YAHAIRA wrap for compression. She has been having some issues with her wound VAC working. When home health applies her wound VAC today, if they have any issues they are to either give us a call or call [facility] to try to figure out the wound VAC issues. Encouraged her to try and keep her legs elevated. Operative cultures positive for Enterococcus avium, Enterococcus gallinarum, Turicella otitidis and Bacteroides thetaiotaomicron. She has completed the Linezolid and the Flagyl. Follow up one week.
--- NOTE | 2020-12-29 13:10 | WC ---
Home Health nurse Jennifer called. reports pt's left leg/wound is slightly more red than it was on Sunday for her wound center appt and it's spreading & warm to touch. WHIT Davila updated. She will notify HH and pt w/any new orders.
== END 2021-01-02 23:59 ==
LOC: WC 10:30
PROVIDERS: PCP Family Medicine Geriatric Medicine; Visit Provider Nurse Practitioner Family
DX: L97.822 Non-pressure chronic ulcer of other part of left lower leg with fat layer exposed (principal); S81.812S Laceration without foreign body, left lower leg, sequela; W55.41 Bitten by pig; I96 Gangrene, not elsewhere classified; M32.9 Systemic lupus erythematosus, unspecified; L02.416 Cutaneous abscess of left lower limb; E78.5 Hyperlipidemia, unspecified; I10 Essential (primary) hypertension; E66.01 Morbid (severe) obesity due to excess calories; Z86.718 Personal history of other venous thrombosis and embolism; Z99.81 Dependence on supplemental oxygen; G47.33 Obstructive sleep apnea (adult) (pediatric); M19.90 Unspecified osteoarthritis, unspecified site; Z79.899 Other long term (current) drug therapy
CPT/HCPCS: 11043; 11046; 99213; G0463

== ENCOUNTER → 2021-01-05 14:44 | Outpatient (CLI) | payer MEDICARE, OTHER, SELFPAY ==
[2021-01-05 16:02] LABS: ALB/GLOB Ratio 0.9 RATIO (0.9-2.4); AST(SGOT) 12 U/L (15-37); Alanine Aminotransfer ALT/SGPT 23 U/L (13-56); Albumin, Serum 3.6 g/dL (3.2-5.0); Alkaline Phosphatase 72 U/L (45-117); Anion Gap 8 (5-15); BUN 24 mg/dL (7-18); BUN/Creat Ratio 30.6 RATIO (10-20); Calcium,Total 9.1 mg/dL (8.5-10.1); Chloride 106 mmol/L (98-107); Creatinine, Serum 0.78 mg/dL (0.55-1.02); EST Glomerular Filtration Rate 77 mL/min (>60); Est Glom Filt Rate - Afr Amer 93 mL/min (>60); Globulin 4.1 g/dL (2.2-4.2); Glucose 118 mg/dL (74-106); Potassium 3.9 mmol/L (3.5-5.1); Protein, Total 7.7 g/dL (6.4-8.2); Sodium Level 139 mmol/L (136-145)
== END ==
PROVIDERS: PCP Family Medicine Geriatric Medicine; Visit Provider Nurse Practitioner Family
DX: S81.852A Open bite, left lower leg, initial encounter (principal); X58.XXXA Exposure to other specified factors, initial encounter
CPT/HCPCS: 80053

== ENCOUNTER 2021-01-24 09:30 | Outpatient (RCR) | payer MEDICARE, OTHER, SELFPAY ==
[2021-01-03 00:05] VITALS: BP 167/59; PULSE 83; RESP 16; TEMP 36.4; BMI 36.0
[2021-01-03 09:20] VITALS: BP 134/56; PULSE 80; RESP 16; TEMP 36.9; BMI 36.0
--- NOTE | 2021-01-03 12:45 | PN.PCM_ITS ---
History of Present Illness Date of Service: 01/03/21 Chief Complaint: Left anterior leg ulcer after being bitten by a pet potbelly pig History of Wound: 70 year old F who was attacked by her pet potbelly pig on 11/08/20 and sustained a complex wound laceration to her left anterior leg. In the ED the wounds were cleansed and suture closed. She was discharged on Cipro and Clindamycin. A week later she saw her PCP because of increasing redness and pain and swelling who started her on daily injections of Ceftriaxone and added Flagyl. There was some improvement but the redness and swelling was persistent. She went to the ED on 11/17/20 for further evaluation. X-ray showed no fracture and no foreign body. WBC was normal at 6.7. Lactate was 1.0. She was admitted and started on Vancomycin and Cefazolin. Surgery 11/19/20 - Surgical preparation left anterior leg with incision and drainage and excisional debridement pig bite wound infection abscess with skin necrosis (96 cm2). Wound care - Will take a wound VAC holiday this week and apply Silver alginate dressing daily covered with ABD. PHILLIP wrap for compression. She was placed on Levaquin on 12/29/20 because home health called stating that her mackenzie wound was red and warm. Wound culture obtained today, 01/03/21. She has had a plateau in the healing process and would benefit using an advanced skin substitute graph such as Theraskin to help with wound healing. Operative cultures positive for Enterococcus avium, Enterococcus gallinarum, Turicella otitidis and Bacteroides thetaiotaomicron. Fungal cultures positive for Sara tropicalis. She completed Linezolid and Flagyl. She was started on Diflucan daily. Will obtain a CMP when home health goes to see her next. Today she denies any fevers, chills, nausea or vomiting. She states her appetite is good and she has increased her protein intake. Progress of Wound: Improved, she has erythema surrounding the ulcer, most likely from the wound VAC. Objective Data Objective Data Vital Signs: Vital Signs Temp Pulse Resp BP 98.4 F 80 16 134/56 H 01/03/21 09:20 01/03/21 09:20 01/03/21 09:20 01/03/21 09:20 Oxygen Delivery Method Room Air Weight: 230 lb Body Mass Index (BMI) 36.0 Charges/Coding Procedures Integumentary 111xxx-113xx: 13049 Global Visit Physical Exam Const alert and oriented x3 Constitutional Narrative: She is very weepy today. General Appearance: cooperative HEENT normocephalic Head and Scalp: atraumatic Eyes PERRL Lymph Lymphatic: no lymphedema noted Resp normal respiratory effort Cardio regular rate GI non-tender Palpation: soft Extremity normal capillary refill Skin Skin Narrative: Left leg ulcer is beefy pink. The periwound is pink and tender. It appears as if the wound VAC did not have a good seal. Neuro CN's II-XII intact bilaterally Psych Appearance: grossly normal Debridement Note Debridement Note Wound debrided: leg ulcer Laterality: Left Type of Debridement: Excisional debridement Anesthesia Used: 5% Lidocaine Gel Depth: Down to and including healthy tissue and in the subcutaneous layer Percentage of wound debrided: 100 Instrument Used: 5mm curette Tissue Removed: subcutaneous tissue and slough Severity: Fat Layer Exposed Amount of bleeding with debridement: Mild Bleeding Controlled with: Pressure and Compression and gauze Patient tolerated procedure: Patient tolerated procedure well Post-Debridement Measurements and Additional Note: Post-Debridement Measurements/Treatment - Nurse 1 - General Ulcer Assessment Start: 01/03/21 09:20 Freq: Status: Active Protocol: RUBIA Activity Type Activity Date Activity User E-Sign Co-Sign Detail Recorded Client Recorded Date Recorded By Document 01/03/21 09:20 [facility] [id number] 01/03/21 09:22 [facility] 01/03/21 09:20 - Today's Visit Information Type of service Follow-up Visit (Physician/INSULATOR APPRENTICE ) Arrival Mode Ambulatory Transfer Assistance None Accompanied by friend Patient Identification Verified (Name & Yes ) Patient Requires Transmission-Based No Precautions Height and Weight Body Mass Index (BMI) 36.0 BMI Classification Obese Vital Signs Temperature (97.8 F-99.1 F) 98.4 F Temperature Source Temporal Pulse Rate (60-100) 80 Pulse Location Monitor Respiratory Rate (12-18) 16 Respiratory rate source Observation Oxygen Delivery Method Room Air Blood Pressure (90/60-120/80) 134/56 H Blood Pressure Mean (mm Hg) 82 Source Monitor Position Sitting Blood Pressure Location Right Arm History Since Last Visit- (Skip if this is Patient's initial visit) Have you changed medications since your No last visit? Any new allergies or adverse reactions No Had a fall/change in ADL's that may No increase risk of falls Signs or symptoms of abuse and/or No neglect since last visit Have you been in the hospital since your No last visit? Has dressing in place as prescribed Yes Has compression in place as prescribed Yes Has offloadiing in place as prescribed N/A Experienced any changes in pain level or No management Left Footwear Regular Shoe Right Footwear Regular Shoe Pain Scale: 0-10 Numeric Is Patient Pain Free? Yes - Nurse 1 - General Ulcer Measurement Start: 01/03/21 09:20 Freq: Status: Active Protocol: Activity Type Activity Date Activity User E-Sign Co-Sign Detail Recorded Client Recorded Date Recorded By Document 01/03/21 09:20 [facility] [id number] 01/03/21 09:22 [facility] 01/03/21 09:20 Wound Center Nurse 1 #1- L GERMAN POST OP -Combined with other wound No -Current Size (cm) - Length 10.2 -Current Size (cm) - Width 6.4 -Current Size (cm) - Depth 0.4 -Total Square Cm 65.28 -Photo Taken No -Epithelialization Small 1-33% -Tunneling No -Undermining/Tunneling No -Circular Undermining No -Exudate Amt Large -Exudate Type Serosanguineous -Wound Margin Distinct, Outline Attached -Granulation Amt Medium (34-66%) -Granulation Quality Red -Slough/Fibrin Yes -Necrosis Amt Medium (34-66%) -Necrotic Tissue Type Adherent Slough -Texture (Mackenzie-wound Skin Appearance) Assessed, Scarring -Moisture (Mackenzie-wound Skin Appearance) Assessed -Color (Mackenzie-wound Skin Appearance) Assessed, Erythema -Temperature (Mackenzie-wound Skin No Abnormality Appearance) (Pt Warm) -Tenderness on Palpation (Mackenzie-wound Yes Skin Appearance) -Ulcer Cleansing Soap and Water -Foul Odor after Cleansing No -Anesthetic Used 4% Lidocaine Solution Lower Limb Edema Present Yes Left Calf (cm) 45.3 Left Ankle (cm) 27.8 - Nurse 2 - General Ulcer CM Notes Start: 01/03/21 09:20 Freq: Status: Active Protocol: Activity Type Activity Date Activity User E-Sign Co-Sign Detail Recorded Client Recorded Date Recorded By Document 01/03/21 09:58 [id number] 01/03/21 10:06 [facility] 01/03/21 09:58 Wound Center Nurse 2 #1- L GERMAN POST OP -Time 09:59 -Correct Patient Yes -Correct Side, Site, Position Yes -Correct Procedure Yes -Procedure Performed Yes -Type of Procedure Debridement -Clinical Debridement Subcutaneous -Tissue Removed Subcutaneous -Post Debridement (cm) - Length 10.3 -Post Debridement (cm) - Width 6.5 -Post Debridement (cm) - Depth 0.3 -Total Square (Post) (cm) 66.95 -Area of Debridement (cm) - Length 10.3 -Area of Debridement (cm) - Width 6.5 -Total Square (Area) (cm) 66.95 -Tunneling No -Undermining/Tunneling No -Circular Undermining No -Wound/Ulcer Outcome Not Healed -Ulcer Cleansing Rinsed/ Irrigated with Saline -Foul Odor after Cleansing No -Bioengineered Tissue No -Bleeding Controlled with Pressure -Offloading No -Treatment Response Procedure Tolerated Well -Debridement - Subq, 1st 20sq cm Yes -Debridement, SubQ, ea addt'l 20sq cm 3 or part thereof Pain Scale: 0-10 Numeric Is Patient Pain Free? Yes - Nurse 3 - General Ulcer D/C NN Start: 01/03/21 09:20 Freq: Status: Active Protocol: Activity Type Activity Date Activity User E-Sign Co-Sign Detail Recorded Client Recorded Date Recorded By Document 01/03/21 10:20 [facility] [id number] 01/03/21 10:27 [facility] 01/03/21 10:20 Wound Care Nurse 3 #1- L GERMAN POST OP -Ulcer Cleansing Rinsed/ Irrigated with Saline -Foul Odor after Cleansing No -Primary Dressing Applied Aquacel AG 4x4 -Primary Dressing Covered/Secured with Dry Gauze, Secured with Tape,Other -Other Covering abd, -Aquacel AG 4x4 1 Left -Compression Wrap Phillip Wrap Treatment Response Procedure Tolerated Well Pain Scale: 0-10 Numeric Is Patient Pain Free? Yes - Visit Discharge Discharge Condition Stable Ambulatory Status Ambulatory Transportation Private Auto Accompanied by friend Facility Type Home Health Assessment/Plan Assessment/Plan (1) Ulcer of left lower extremity with fat layer exposed: CODE(S): L97.922 - Non-pressure chronic ulcer of unspecified part of left lower leg with fat layer exposed (2) History of excision of lesion: CODE(S): Z98.890 - Other specified postprocedural states; Z87.2 - Personal history of diseases of the skin and subcutaneous tissue (3) Lupus: CODE(S): M32.9 - Systemic lupus erythematosus, unspecified (4) Animal bite: CODE(S): T14.8XXA - Other injury of unspecified body region, initial encounter (5) Edema: CODE(S): R60.9 - Edema, unspecified QUALIFIERS: Edema type: unspecified Qualified Code(s): R60.9 - Edema, unspecified PLAN: Wound care - Will take a wound VAC holiday this week and apply Silver alginate dressing daily covered with ABD. PHILLIP wrap for compression. She was placed on Levaquin on 12/29/20 because home health called stating that her mackenzie wound was red and warm. Wound culture obtained today, 01/03/21. Depending on the results of the culture, it may necessitate the need for a change in the antibiotic. She has had a plateau in the healing process and would benefit using an advanced skin substitute graph such as Theraskin to help with wound healing. Operative cultures positive for Enterococcus avium, Enterococcus gallinarum, Turicella otitidis and Bacteroides thetaiotaomicron. Fungal cultures positive for Sara tropicalis. She completed Linezolid and Flagyl. She was started on Diflucan daily. Will obtain a CMP when home health goes to see her next. Follow up one week.
[2021-01-10 10:32] VITALS: BP 166/96; PULSE 106; RESP 20; TEMP 36.8; BMI 36.0
--- NOTE | 2021-01-10 13:00 | PN.PCM_ITS ---
History of Present Illness Date of Service: 01/10/21 Chief Complaint: Nonhealing ulcer left anterior leg. History of Wound: Surgery 11/19/20 - Surgical preparation left anterior leg with incision and drainage and excisional debridement pig bite wound infection abscess with skin necrosis (96 cm2). Wound care - Silver dressing and PHILLIP wrap for compression. She was placed on Levaquin on 12/29/20 because home health called stating that her mackenzie wound was red and warm. Wound culture obtained today, 01/03/21. It showed MRSA. She was started on Linezolid. She has had a plateau in the healing process and would benefit using an advanced skin substitute graph such as Theraskin to help with wound healing. Will apply it once it is approved. Anticipate one week for approval. Operative cultures positive for Enterococcus avium, Enterococcus gallinarum, Turicella otitidis and Bacteroides thetaiotaomicron. Fungal cultures positive for Sara tropicalis. She completed Linezolid and Flagyl. She was started on Diflucan daily. Labs from 01/05/22 showed Total Bilirubin was 0.20, AST was 12, ALT was 23, Alkaline Phosphatase was 72, Albumin was 3.6. Today she denies any fevers, chills, nausea or vomiting. She states her appetite is good and she has increased her protein intake. Progress of Wound: Improved. Objective Data Objective Data Vital Signs: Vital Signs Temp Pulse Resp BP 98.2 F 106 H 20 H 166/96 H 01/10/21 10:32 01/10/21 10:32 01/10/21 10:32 01/10/21 10:32 Oxygen Delivery Method Room Air Weight: 230 lb Body Mass Index (BMI) 36.0 Lab / Micro Data Attestation: I reviewed the patient's lab results. Micro: Microbiology 01/03/21 10:00 Wound Abcess - Leg, Left Gram Stain - Final 01/03/21 10:00 Wound Abcess - Leg, Left Wound Culture - Final Meth. resistant Staph. aureus 01/03/21 10:00 Wound Abcess - Leg, Left Anaerobic Culture - Final No anaerobic bacteria isolated. Charges/Coding Procedures Integumentary 111xxx-113xx: 29427 Blanche subq tissue 20 sq cm/< (ICD-10 - L97.922, A49.02, M32.9, R60.0, W55.41xA) Add On Codes: 17943 Blanche subq tissue add-on (x2 units ICD-10 - L97.922, A49.02, M32.9, R60.0, W55.41xA) Debridement Note Debridement Note Wound debrided: #1 Left anterior leg. Laterality: Left Wound Grade/Stage: 2. Type of Debridement: Excisional debridement Anesthesia Used: 4% Lidocaine Solution Depth: Down to and including healthy tissue Percentage of wound debrided: 100 Instrument Used: 7mm curette Tissue Removed: subcutaneous tissue. Severity: Fat Layer Exposed Amount of bleeding with debridement: Mild Bleeding Controlled with: Compression and gauze Patient tolerated procedure: Patient tolerated procedure well Post-Debridement Measurements and Additional Note: Post-Debridement Measurements/Treatment - Nurse 1 - General Ulcer Assessment Start: 01/03/21 09:20 Freq: Status: Active Protocol: RUBIA Activity Type Activity Date Activity User E-Sign Co-Sign Detail Recorded Client Recorded Date Recorded By Document 01/03/21 09:20 [facility] [id number] 01/03/21 09:22 [facility] Document 01/10/21 10:32 DL [id number] 01/10/21 10:43 DL 01/03/21 01/10/21 09:20 10:32 - Today's Visit Information Type of service Follow-up Visit Follow-up Visit (Physician/AIRPLANE TESTER (Physician/AIRPLANE TESTER ) ) Arrival Mode Ambulatory Ambulatory Transfer Assistance None None Accompanied by friend Patient Identification Verified (Name & Yes Yes ) Patient Requires Transmission-Based No No Precautions Height and Weight Body Mass Index (BMI) 36.0 36.0 BMI Classification Obese Obese Vital Signs Temperature (97.8 F-99.1 F) 98.4 F 98.2 F Temperature Source Temporal Temporal Pulse Rate (60-100) 80 106 H Pulse Location Monitor Monitor Respiratory Rate (12-18) 16 20 H Respiratory rate source Observation Observation Oxygen Delivery Method Room Air Blood Pressure (90/60-120/80) 134/56 H 166/96 H Blood Pressure Mean (mm Hg) 82 119 Source Monitor Monitor Position Sitting Blood Pressure Location Right Arm History Since Last Visit- (Skip if this is Patient's initial visit) Have you changed medications since your No Yes last visit? Any new allergies or adverse reactions No No Had a fall/change in ADL's that may No No increase risk of falls Signs or symptoms of abuse and/or No No neglect since last visit Have you been in the hospital since your No No last visit? Has dressing in place as prescribed Yes Yes Has compression in place as prescribed Yes Yes Has offloadiing in place as prescribed N/A N/A Experienced any changes in pain level or No No management Left Footwear Regular Shoe Right Footwear Regular Shoe Pain Scale: 0-10 Numeric Is Patient Pain Free? Yes Yes WC - Nurse 1 - General Ulcer Measurement Start: 01/03/21 09:20 Freq: Status: Active Protocol: Activity Type Activity Date Activity User E-Sign Co-Sign Detail Recorded Client Recorded Date Recorded By Document 01/03/21 09:20 [facility] [id number] 01/03/21 09:22 [facility] Document 01/10/21 10:32 DL [id number] 01/10/21 10:43 DL 01/03/21 01/10/21 09:20 10:32 Wound Center Nurse 1 #1- L GERMAN POST OP -Combined with other wound No -Current Size (cm) - Length 10.2 9.7 -Current Size (cm) - Width 6.4 5 -Current Size (cm) - Depth 0.4 0.2 -Total Square Cm 65.28 48.5 -Photo Taken No No -Epithelialization Small 1-33% -Tunneling No -Undermining/Tunneling No -Circular Undermining No -Exudate Amt Large Medium -Exudate Type Serosanguineous Yellow/Green -Wound Margin Distinct, Distinct, Outline Outline Attached Attached -Granulation Amt Medium (34-66%) Medium (34-66%) -Granulation Quality Red [place] -Slough/Fibrin Yes -Necrosis Amt Medium (34-66%) Medium (34-66%) -Necrotic Tissue Type Adherent Slough Adherent Slough -Structure Exposed N/A -Texture (Mackenzie-wound Skin Appearance) Assessed, Scarring Scarring -Moisture (Mackenzie-wound Skin Appearance) Assessed Dry/Scaly -Color (Mackenzie-wound Skin Appearance) Assessed, Rubor Erythema -Temperature (Mackenzie-wound Skin No Abnormality No Abnormality Appearance) (Pt Warm) (Pt Warm) -Tenderness on Palpation (Mackenzie-wound Yes No Skin Appearance) -Ulcer Cleansing Soap and Water Soap and Water -Foul Odor after Cleansing No No -Anesthetic Used 4% Lidocaine 4% Lidocaine Solution Solution Lower Limb Edema Present Yes Left Calf (cm) 45.3 43 Left Ankle (cm) 27.8 26.4 - Nurse 2 - General Ulcer CM Notes Start: 01/03/21 09:20 Freq: Status: Active Protocol: Activity Type Activity Date Activity User E-Sign Co-Sign Detail Recorded Client Recorded Date Recorded By Document 01/03/21 09:58 [id number] 01/03/21 10:06 Document 01/10/21 11:33 [id number] 01/10/21 11:36 01/03/21 01/10/21 09:58 11:33 Wound Center Nurse 2 #1- L GERMAN POST OP -Time 09:59 11:33 -Correct Patient Yes Yes -Correct Side, Site, Position Yes Yes -Correct Procedure Yes Yes -Procedure Performed Yes Yes -Type of Procedure Debridement Debridement -Clinical Debridement Subcutaneous Subcutaneous -Tissue Removed Subcutaneous Subcutaneous -Post Debridement (cm) - Length 10.3 9.7 -Post Debridement (cm) - Width 6.5 5 -Post Debridement (cm) - Depth 0.3 0.2 -Total Square (Post) (cm) 66.95 48.5 -Area of Debridement (cm) - Length 10.3 9.7 -Area of Debridement (cm) - Width 6.5 5 -Total Square (Area) (cm) 66.95 48.5 -Tunneling No No -Undermining/Tunneling No No -Circular Undermining No No -Wound/Ulcer Outcome Not Healed Not Healed -Ulcer Cleansing Rinsed/ Rinsed/ Irrigated with Irrigated with Saline Saline -Foul Odor after Cleansing No No -Bioengineered Tissue No No -Bleeding Controlled with Pressure Pressure -Offloading No No -Treatment Response Procedure Procedure Tolerated Well Tolerated Well -Debridement - Subq, 1st 20sq cm Yes Yes -Debridement, SubQ, ea addt'l 20sq cm 3 2 or part thereof Pain Scale: 0-10 Numeric Is Patient Pain Free? Yes Yes - Nurse 3 - General Ulcer D/C NN Start: 01/03/21 09:20 Freq: Status: Active Protocol: Activity Type Activity Date Activity User E-Sign Co-Sign Detail Recorded Client Recorded Date Recorded By Document 01/03/21 10:20 [facility] [id number] 01/03/21 10:27 [facility] Document 01/10/21 11:55 DL [id number] 01/10/21 11:56 DL 01/03/21 01/10/21 10:20 11:55 Wound Care Nurse 3 #1- L GERMAN POST OP -Ulcer Cleansing Rinsed/ Rinsed/ Irrigated with Irrigated with Saline Saline -Foul Odor after Cleansing No No -Primary Dressing Applied Aquacel AG 4x4 Aquacel AG 4x4 -Primary Dressing Covered/Secured with Dry Gauze, Dry Gauze & Secured with Roll Gauze, Tape,Other Secured with Tape -Other Covering abd, abd -Aquacel AG 4x4 1 1 Left -Compression Wrap Phillip Wrap Phillip Wrap Treatment Response Procedure Procedure Tolerated Well Tolerated Well Pain Scale: 0-10 Numeric Is Patient Pain Free? Yes Yes WC - Visit Discharge Discharge Condition Stable Stable Ambulatory Status Ambulatory Ambulatory Transportation Private Auto Private Auto Accompanied by friend Facility Type Home Health Home Health Orders Sent Yes Assessment/Plan Assessment/Plan (1) Ulcer of left lower extremity with fat layer exposed: CODE(S): L97.922 - Non-pressure chronic ulcer of unspecified part of left lower leg with fat layer exposed (2) Lupus: CODE(S): M32.9 - Systemic lupus erythematosus, unspecified (3) MRSA (methicillin resistant Staphylococcus aureus) infection: CODE(S): A49.02 - Methicillin resistant Staphylococcus aureus infection, unspecified site (4) Edema of both lower legs: CODE(S): R60.0 - Localized edema (5) Bitten by pig, initial encounter: CODE(S): W55.41XA - Bitten by pig, initial encounter PLAN: Continue Silver dressing changes daily until the Thera-skin advanced skin substitute graft is approved. Continue PHILLIP for compression. Keep legs elevated when sitting. Recent culture from 01/03/21 showed MRSA. She was started on Linezolid. She also had a fungal culture from surgery that showed Sara tropicalis. She is on Diflucan. Recent LFTS's from 01/05/21 were stable. She will labs drawn monthly while on Diflucan. Anticipate 2 months duration. Prealbumin from 11/20/20 was 19.0. Encourage nutritional supplementation with protein to help the healing process. Followup one week. Anticipate starting Thera-skin advanced skin substitute graft to promote healing.
[2021-01-17 09:41] VITALS: BP 171/71; PULSE 88; RESP 18; TEMP 36.8; BMI 36.0
--- NOTE | 2021-01-17 15:31 | PN.PCM_ITS ---
History of Present Illness Date of Service: 01/17/21 Chief Complaint: Left anterior leg ulcer after being bitten by a pet potbelly pig History of Wound: 71 year old F who was attacked by her pet potbelly pig on 11/08/20 and sustained a complex wound laceration to her left anterior leg. In the ED the wounds were cleansed and suture closed. She was discharged on Cipro and Clindamycin. A week later she saw her PCP because of increasing redness and pain and swelling who started her on daily injections of Ceftriaxone and added Flagyl. There was some improvement but the redness and swelling was persistent. She went to the ED on 11/17/20 for further evaluation. X-ray showed no fracture and no foreign body. WBC was normal at 6.7. Lactate was 1.0. She was admitted and started on Vancomycin and Cefazolin. Surgery 11/19/20 - Surgical preparation left anterior leg with incision and drainage and excisional debridement pig bite wound infection abscess with skin necrosis (96 cm2). Wound care - Theraskin #1 placed today. She was placed on Levaquin on 12/29/20 because home health called stating that her mackenzie wound was red and warm. Wound culture obtained on 01/03/21 which was positive for MRSA. With all the resistance, she was started on Linezolid. She had to stop her antidepressants w hile on this medications. Operative cultures positive for Enterococcus avium, Enterococcus gallinarum, Turicella otitidis and Bacteroides thetaiotaomicron. Fungal cultures positive for Sara tropicalis. She completed Linezolid and Flagyl. She was started on Diflucan daily. CMP drawn on 01/05/21 Total Bili 0.20, AST 12, ALT 23, Alk Phos 72, Albumin 3.6. Today she denies any fevers, chills, nausea or vomiting. She states her appetite is good and she has increased her protein intake. Progress of Wound: Improved. Redness surrounding the ulcer is resolving. Objective Data Objective Data Vital Signs: Vital Signs Temp Pulse Resp BP 98.2 F 88 18 171/71 H 01/17/21 09:41 01/17/21 09:41 01/17/21 09:41 01/17/21 09:41 Oxygen Delivery Method Room Air Weight: 230 lb Body Mass Index (BMI) 36.0 Lab / Micro Data Micro: Microbiology 01/03/21 10:00 Wound Abcess - Leg, Left Gram Stain - Final 01/03/21 10:00 Wound Abcess - Leg, Left Wound Culture - Final Meth. resistant Staph. aureus 01/03/21 10:00 Wound Abcess - Leg, Left Anaerobic Culture - Final No anaerobic bacteria isolated. Charges/Coding Procedures Integumentary 150xxx-152xx: 63419 Skin sub graft trnk/arm/leg (58 modifier) Add On Codes: 74433 Skin sub graft t/a/l add-on Physical Exam Const alert and oriented x3 General Appearance: cooperative HEENT normocephalic Resp normal respiratory effort Cardio regular rate GI Palpation: soft Extremity normal to inspection Skin Skin Narrative: Left leg ulcer is beefy pink with granulation tissue. Surrounding the ulcer the skin is improving. Neuro CN's II-XII intact bilaterally Psych Appearance: grossly normal Debridement Note Debridement Note Wound debrided: leg ulcer Laterality: Left Type of Debridement: Excisional debridement Anesthesia Used: 5% Lidocaine Gel Depth: Down to and including healthy tissue and in the subcutaneous layer Percentage of wound debrided: 100 Instrument Used: 5mm curette Tissue Removed: Subcutaneous tissue and slough Severity: Fat Layer Exposed Amount of bleeding with debridement: Mild Bleeding Controlled with: Pressure Patient tolerated procedure: Patient tolerated procedure well Post-Debridement Measurements and Additional Note: Post-Debridement Measurements/Treatment - Nurse 1 - General Ulcer Assessment Start: 01/03/21 09:20 Freq: Status: Active Protocol: [email or web address] Activity Type Activity Date Activity User E-Sign Co-Sign Detail Recorded Client Recorded Date Recorded By Document 01/03/21 09:20 [facility] [id number] 01/03/21 09:22 [facility] Document 01/10/21 10:32 DL [id number] 01/10/21 10:43 DL Document 01/17/21 09:41 KR [id number] 01/17/21 09:44 KR 01/03/21 01/10/21 01/17/21 09:20 10:32 09:41 - Today's Visit Information Type of service Follow-up Visit Follow-up Visit Follow-up Visit (Physician/PACK PRESS OPERATOR (Physician/PACK PRESS OPERATOR (Physician/PACK PRESS OPERATOR ) ) ) Arrival Mode Ambulatory Ambulatory Ambulatory Transfer Assistance None None None Accompanied by friend Patient Identification Verified (Name & Yes Yes Yes ) Patient Requires Transmission-Based No No No Precautions Height and Weight Body Mass Index (BMI) 36.0 36.0 36.0 BMI Classification Obese Obese Obese Vital Signs Temperature (97.8 F-99.1 F) 98.4 F 98.2 F 98.2 F Temperature Source Temporal Temporal Temporal Pulse Rate (60-100) 80 106 H 88 Pulse Location Monitor Monitor Monitor Respiratory Rate (12-18) 16 20 H 18 Respiratory rate source Observation Observation Observation Oxygen Delivery Method Room Air Room Air Blood Pressure (90/60-120/80) 134/56 H 166/96 H 171/71 H Blood Pressure Mean (mm Hg) 82 119 104 Source Monitor Monitor Monitor Position Sitting Sitting Blood Pressure Location Right Arm Left Arm History Since Last Visit- (Skip if this is Patient's initial visit) Have you changed medications since your No Yes No last visit? Any new allergies or adverse reactions No No No Had a fall/change in ADL's that may No No No increase risk of falls Signs or symptoms of abuse and/or No No No neglect since last visit Have you been in the hospital since your No No No last visit? Has dressing in place as prescribed Yes Yes Yes Has compression in place as prescribed Yes Yes Yes Has offloadiing in place as prescribed N/A N/A N/A Experienced any changes in pain level or No No No management Left Footwear Regular Shoe Regular Shoe Right Footwear Regular Shoe Regular Shoe Pain Scale: 0-10 Numeric Is Patient Pain Free? Yes Yes Yes WC - Nurse 1 - General Ulcer Measurement Start: 01/03/21 09:20 Freq: Status: Active Protocol: Activity Type Activity Date Activity User E-Sign Co-Sign Detail Recorded Client Recorded Date Recorded By Document 01/03/21 09:20 [facility] [id number] 01/03/21 09:22 [facility] Document 01/10/21 10:32 DL [id number] 01/10/21 10:43 DL Document 01/17/21 09:41 KR [id number] 01/17/21 09:44 KR 01/03/21 01/10/21 01/17/21 09:20 10:32 09:41 Wound Center Nurse 1 #1- L GERMAN POST OP -Combined with other wound No No -Current Size (cm) - Length 10.2 9.7 8.9 -Current Size (cm) - Width 6.4 5 4.6 -Current Size (cm) - Depth 0.4 0.2 0.2 -Total Square Cm 65.28 48.5 40.94 -Photo Taken No No No -Epithelialization Small 1-33% Small 1-33% -Tunneling No No -Undermining/Tunneling No No -Circular Undermining No No -Exudate Amt Large Medium Medium -Exudate Type Serosanguineous Yellow/Green Serosanguineous -Wound Margin Distinct, Distinct, Flat & Intact Outline Outline Attached Attached -Granulation Amt Medium (34-66%) Medium (34-66%) Large (67-100%) -Granulation Quality Red [place] -Slough/Fibrin Yes Yes -Necrosis Amt Medium (34-66%) Medium (34-66%) Small (1-33%) -Necrotic Tissue Type Adherent Slough Adherent Slough Adherent Slough -Structure Exposed N/A -Texture (Mackenzie-wound Skin Appearance) Assessed, Scarring Assessed, Scarring Scarring -Moisture (Mackenzie-wound Skin Appearance) Assessed Dry/Scaly Assessed,Dry/ Scaly -Color (Mackenzie-wound Skin Appearance) Assessed, Rubor Assessed Erythema -Temperature (Mackenzie-wound Skin No Abnormality No Abnormality No Abnormality Appearance) (Pt Warm) (Pt Warm) (Pt Warm) -Tenderness on Palpation (Mackenzie-wound Yes No No Skin Appearance) -Ulcer Cleansing Soap and Water Soap and Water Soap and Water -Foul Odor after Cleansing No No Yes, Due to Product Use -Anesthetic Used 4% Lidocaine 4% Lidocaine 4% Lidocaine Solution Solution Solution Lower Limb Edema Present Yes Yes Left Calf (cm) 45.3 43 43.6 Left Ankle (cm) 27.8 26.4 29.7 - Nurse 2 - General Ulcer CM Notes Start: 01/03/21 09:20 Freq: Status: Active Protocol: Activity Type Activity Date Activity User E-Sign Co-Sign Detail Recorded Client Recorded Date Recorded By Document 01/03/21 09:58 [facility] [id number] 01/03/21 10:06 JF Document 01/10/21 11:33 JF [id number] 01/10/21 11:36 JF Document 01/17/21 10:27 JF [id number] 01/17/21 10:37 SHAQ 01/03/21 01/10/21 01/17/21 09:58 11:33 10:27 Wound Center Nurse 2 #1- L GERMAN POST OP -Time 09:59 11:33 10:28 -Correct Patient Yes Yes Yes -Correct Side, Site, Position Yes Yes Yes -Correct Procedure Yes Yes Yes -Procedure Performed Yes Yes Yes -Type of Procedure Debridement Debridement Debridement -Clinical Debridement Subcutaneous Subcutaneous Subcutaneous -Tissue Removed Subcutaneous Subcutaneous Subcutaneous -Post Debridement (cm) - Length 10.3 9.7 9.2 -Post Debridement (cm) - Width 6.5 5 4.7 -Post Debridement (cm) - Depth 0.3 0.2 0.1 -Total Square (Post) (cm) 66.95 48.5 43.24 -Area of Debridement (cm) - Length 10.3 9.7 9.2 -Area of Debridement (cm) - Width 6.5 5 4.7 -Total Square (Area) (cm) 66.95 48.5 43.24 -Tunneling No No No -Undermining/Tunneling No No No -Circular Undermining No No No -Wound/Ulcer Outcome Not Healed Not Healed Not Healed -Ulcer Cleansing Rinsed/ Rinsed/ Rinsed/ Irrigated with Irrigated with Irrigated with Saline Saline Saline -Foul Odor after Cleansing No No No -Bioengineered Tissue No No Yes -Type of Bioengineered Tissue Theraskin -Expiration Date 04/24/25 -Product Lot Number [id number] -Percent Used 100 -Lot number of Saline Used [id number] -Bleeding Controlled with Pressure Pressure Pressure -Offloading No No No -Treatment Response Procedure Procedure Procedure Tolerated Well Tolerated Well Tolerated Well -Debridement - Subq, 1st 20sq cm Yes Yes No -Debridement, SubQ, ea addt'l 20sq cm 3 2 or part thereof -Apply Skin Sub - 1st 25 sq cm - Legs 1 -Apply Skin Sub - each addt'l 25 sq cm 1 - Legs -Theraskin (per sq cm) 39 Pain Scale: 0-10 Numeric Is Patient Pain Free? Yes Yes Yes WC - Nurse 3 - General Ulcer D/C NN Start: 01/03/21 09:20 Freq: Status: Active Protocol: Activity Type Activity Date Activity User E-Sign Co-Sign Detail Recorded Client Recorded Date Recorded By Document 01/03/21 10:20 [facility] [id number] 01/03/21 10:27 [facility] Document 01/10/21 11:55 DL [id number] 01/10/21 11:56 DL Document 01/17/21 10:55 KR [id number] 01/17/21 10:56 KR 01/03/21 01/10/21 01/17/21 10:20 11:55 10:55 Wound Care Nurse 3 #1- L GERMAN POST OP -Ulcer Cleansing Rinsed/ Rinsed/ Irrigated with Irrigated with Saline Saline -Foul Odor after Cleansing No No -Primary Dressing Applied Aquacel AG 4x4 Aquacel AG 4x4 -Other Dressing ABD pad -Primary Dressing Covered/Secured with Dry Gauze, Dry Gauze & Dry Gauze & Secured with Roll Gauze, Roll Gauze, Tape,Other Secured with Secured with Tape Tape -Other Covering abd, abd -Aquacel AG 4x4 1 1 Left -Compression Wrap Phillip Wrap Phillip Wrap Phillip Wrap -Tubular Bandage Single Layer -Size of Tubigrip Used Size E -Size E ($) 1 Treatment Response Procedure Procedure Tolerated Well Tolerated Well Pain Scale: 0-10 Numeric Is Patient Pain Free? Yes Yes Yes WC - Visit Discharge Discharge Condition Stable Stable Stable Ambulatory Status Ambulatory Ambulatory Ambulatory Transportation Private Auto Private Auto Private Auto Accompanied by friend Facility Type Home Health Home Health Orders Sent Yes Assessment/Plan Assessment/Plan (1) Ulcer of left lower extremity with fat layer exposed: CODE(S): L97.922 - Non-pressure chronic ulcer of unspecified part of left lower leg with fat layer exposed (2) MRSA (methicillin resistant Staphylococcus aureus) infection: CODE(S): A49.02 - Methicillin resistant Staphylococcus aureus infection, unspecified site (3) Lupus: CODE(S): M32.9 - Systemic lupus erythematosus, unspecified (4) Animal bite: CODE(S): T14.8XXA - Other injury of unspecified body region, initial encounter (5) Edema: CODE(S): R60.9 - Edema, unspecified QUALIFIERS: Edema type: unspecified Qualified Code(s): R60.9 - Edema, unspecified (6) History of excision of lesion: CODE(S): Z98.890 - Other specified postprocedural states; Z87.2 - Personal history of diseases of the skin and subcutaneous tissue PLAN: Wound care - She was approved for an advanced skin graft substitute. Theraskin #1 was placed on left leg ulcer, 100% of the product was used. It was secured with Dermabond and steri-strips and topped with wound veil that was secured with steri-strips. Covered with ABD. Compression is a tubigrip and PHILLIP wrap. She was placed on Levaquin on 12/29/20 because home health called stating that her mackenzie wound was red and warm. The redness was probably caused from the wound VAC, which was stopped. Wound culture obtained on 01/03/21 which was positive for MRSA. With all the resistance, she was started on Linezolid. She had to stop her antidepressants while on this medications. Operative cultures positive for Enterococcus avium, Enterococcus gallinarum, Turicella otitidis and Bacteroides thetaiotaomicron. Fungal cultures positive for Sara tropicalis. She completed Linezolid and Flagyl. She was started on Diflucan daily. CMP drawn on 01/05/21 Total Bili 0.20, AST 12, ALT 23, Alk Phos 72, Albumin 3.6. Follow up one week.
[2021-01-24 09:31] VITALS: BP 114/60; PULSE 74; TEMP 36.3; BMI 36.0
--- NOTE | 2021-01-24 14:17 | PCM.WC.PN ---
History of Present Illness Date of Service: 01/24/21 Chief Complaint: Left anterior leg ulcer after being bitten by a pet potbelly pig History of Wound: 71 year old F who was attacked by her pet potbelly pig on 11/08/20 and sustained a complex wound laceration to her left anterior leg. In the ED the wounds were cleansed and suture closed. She was discharged on Cipro and Clindamycin. A week later she saw her PCP because of increasing redness and pain and swelling who started her on daily injections of Ceftriaxone and added Flagyl. There was some improvement but the redness and swelling was persistent. She went to the ED on 11/17/20 for further evaluation. X-ray showed no fracture and no foreign body. WBC was normal at 6.7. Lactate was 1.0. She was admitted and started on Vancomycin and Cefazolin. Surgery 11/19/20 - Surgical preparation left anterior leg with incision and drainage and excisional debridement pig bite wound infection abscess with skin necrosis (96 cm2). Wound care - Theraskin #2 placed today. She was placed on Levaquin on 12/29/20 because home health called stating that her mackenzie wound was red and warm. Wound culture obtained on 01/03/21 which was positive for MRSA. With all the resistance, she was started on Linezolid. She had to stop her antidepressants while on this medications. Operative cultures positive for Enterococcus avium, Enterococcus gallinarum, Turicella otitidis and Bacteroides thetaiotaomicron. Fungal cultures positive for Sara tropicalis. She completed Linezolid and Flagyl. She was started on Diflucan daily. CMP drawn on 01/05/21 Total Bili 0.20, AST 12, ALT 23, Alk Phos 72, Albumin 3.6. Today she denies any fevers, chills, nausea or vomiting. She states her appetite is good and she has increased her protein intake. Progress of Wound: Improved. Objective Data Objective Data Vital Signs: Vital Signs Temp Pulse Resp BP 97.4 F L 74 18 114/60 01/24/21 09:31 01/24/21 09:31 01/17/21 09:41 01/24/21 09:31 Oxygen Delivery Method Room Air Weight: 230 lb Body Mass Index (BMI) 36.0 Lab / Micro Data Micro: Microbiology 01/03/21 10:00 Wound Abcess - Leg, Left Gram Stain - Final 01/03/21 10:00 Wound Abcess - Leg, Left Wound Culture - Final Meth. resistant Staph. aureus 01/03/21 10:00 Wound Abcess - Leg, Left Anaerobic Culture - Final No anaerobic bacteria isolated. Charges/Coding Procedures Integumentary 150xxx-152xx: 10779 Skin sub graft trnk/arm/leg (58 modifier) Add On Codes: 64688 Skin sub graft t/a/l add-on (x1) Physical Exam Const alert and oriented x3 General Appearance: cooperative HEENT normocephalic Head and Scalp: atraumatic Lymph Lymphatic: no lymphedema noted Resp normal respiratory effort Cardio regular rate GI non-tender Palpation: soft Extremity normal capillary refill Skin Wound Narrative: left leg ulcer is beefy pink, smaller in size. There is a definite improvement using the advanced skin substitute Theraskin. Neuro CN's II-XII intact bilaterally Psych Appearance: grossly normal Debridement Note Debridement Note Wound debrided: leg ulcer Laterality: Left Type of Debridement: Excisional debridement Anesthesia Used: 5% Lidocaine Gel Depth: Down to and including healthy tissue and in the subcutaneous layer Percentage of wound debrided: 100 Instrument Used: 7mm curette Tissue Removed: Subcutaneous tissue and slough Severity: Fat Layer Exposed Amount of bleeding with debridement: Mild Bleeding Controlled with: Pressure and Compression and gauze Patient tolerated procedure: Patient tolerated procedure well Post-Debridement Measurements and Additional Note: Post-Debridement Measurements/Treatment GIORGI - Nurse 1 - General Ulcer Assessment Start: 01/03/21 09:20 Freq: Status: Active Protocol: RUBIA Activity Type Activity Date Activity User E-Sign Co-Sign Detail Recorded Client Recorded Date Recorded By Document 01/03/21 09:20 [facility] [id number] 01/03/21 09:22 BM Document 01/10/21 10:32 DL [id number] 01/10/21 10:43 DL Document 01/17/21 09:41 KR [id number] 01/17/21 09:44 KR Document 01/24/21 09:31 KR [id number] 01/24/21 09:36 KR 01/03/21 01/10/21 01/17/21 09:20 10:32 09:41 - Today's Visit Information Type of service Follow-up Visit Follow-up Visit Follow-up Visit (Physician/[facility] (Physician/[facility] (Physician/[facility] ) ) ) Arrival Mode Ambulatory Ambulatory Ambulatory Transfer Assistance None None None Accompanied by friend Patient Identification Verified (Name & Yes Yes Yes ) Patient Requires Transmission-Based No No No Precautions Height and Weight Body Mass Index (BMI) 36.0 36.0 36.0 BMI Classification Obese Obese Obese Vital Signs Temperature (97.8 F-99.1 F) 98.4 F 98.2 F 98.2 F Temperature Source Temporal Temporal Temporal Pulse Rate (60-100) 80 106 H 88 Pulse Location Monitor Monitor Monitor Respiratory Rate (12-18) 16 20 H 18 Respiratory rate source Observation Observation Observation Oxygen Delivery Method Room Air Room Air Blood Pressure (90/60-120/80) 134/56 H 166/96 H 171/71 H Blood Pressure Mean (mm Hg) 82 119 104 Source Monitor Monitor Monitor Position Sitting Sitting Blood Pressure Location Right Arm Left Arm History Since Last Visit- (Skip if this is Patient's initial visit) Have you changed medications since your No Yes No last visit? Any new allergies or adverse reactions No No No Had a fall/change in ADL's that may No No No increase risk of falls Signs or symptoms of abuse and/or No No No neglect since last visit Have you been in the hospital since your No No No last visit? Has dressing in place as prescribed Yes Yes Yes Has compression in place as prescribed Yes Yes Yes Has offloadiing in place as prescribed N/A N/A N/A Experienced any changes in pain level or No No No management Left Footwear Regular Shoe Regular Shoe Right Footwear Regular Shoe Regular Shoe Pain Scale: 0-10 Numeric Is Patient Pain Free? Yes Yes Yes 01/24/21 09:31 WC - Today's Visit Information Type of service Follow-up Visit (Physician/[facility] ) Arrival Mode Ambulatory Transfer Assistance Accompanied by Patient Identification Verified (Name & Yes ) Patient Requires Transmission-Based Precautions Height and Weight Body Mass Index (BMI) 36.0 BMI Classification Obese Vital Signs Temperature (97.8 F-99.1 F) 97.4 F L Temperature Source Temporal Pulse Rate (60-100) 74 Pulse Location Monitor Respiratory Rate (12-18) Respiratory rate source Oxygen Delivery Method Blood Pressure (90/60-120/80) 114/60 Blood Pressure Mean (mm Hg) 78 Source Monitor Position Semi-Fowlers Blood Pressure Location Left Arm History Since Last Visit- (Skip if this is Patient's initial visit) Have you changed medications since your No last visit? Any new allergies or adverse reactions No Had a fall/change in ADL's that may No increase risk of falls Signs or symptoms of abuse and/or No neglect since last visit Have you been in the hospital since your No last visit? Has dressing in place as prescribed Yes Has compression in place as prescribed N/A Has offloadiing in place as prescribed N/A Experienced any changes in pain level or No management Left Footwear Regular Shoe Right Footwear Regular Shoe Pain Scale: 0-10 Numeric Is Patient Pain Free? Yes WC - Nurse 1 - General Ulcer Measurement Start: 01/03/21 09:20 Freq: Status: Active Protocol: Activity Type Activity Date Activity User E-Sign Co-Sign Detail Recorded Client Recorded Date Recorded By Document 01/03/21 09:20 [facility] [id number] 01/03/21 09:22 [facility] Document 01/10/21 10:32 DL [id number] 01/10/21 10:43 DL Document 01/17/21 09:41 KR [id number] 01/17/21 09:44 KR Document 01/24/21 09:31 KR [id number] 01/24/21 09:36 KR 01/03/21 01/10/21 01/17/21 09:20 10:32 09:41 Wound Center Nurse 1 #1- L GERMAN POST OP -Combined with other wound No No -Current Size (cm) - Length 10.2 9.7 8.9 -Current Size (cm) - Width 6.4 5 4.6 -Current Size (cm) - Depth 0.4 0.2 0.2 -Total Square Cm 65.28 48.5 40.94 -Photo Taken No No No -Epithelialization Small 1-33% Small 1-33% -Tunneling No No -Undermining/Tunneling No No -Circular Undermining No No -Exudate Amt Large Medium Medium -Exudate Type Serosanguineous Yellow/Green Serosanguineous -Wound Margin Distinct, Distinct, Flat & Intact Outline Outline Attached Attached -Granulation Amt Medium (34-66%) Medium (34-66%) Large (67-100%) -Granulation Quality Red [place] -Slough/Fibrin Yes Yes -Necrosis Amt Medium (34-66%) Medium (34-66%) Small (1-33%) -Necrotic Tissue Type Adherent Slough Adherent Slough Adherent Slough -Structure Exposed N/A -Texture (Mackenzie-wound Skin Appearance) Assessed, Scarring Assessed, Scarring Scarring -Moisture (Mackenzie-wound Skin Appearance) Assessed Dry/Scaly Assessed,Dry/ Scaly -Color (Mackenzie-wound Skin Appearance) Assessed, Rubor Assessed Erythema -Temperature (Mackenzie-wound Skin No Abnormality No Abnormality No Abnormality Appearance) (Pt Warm) (Pt Warm) (Pt Warm) -Tenderness on Palpation (Mackenzie-wound Yes No No Skin Appearance) -Ulcer Cleansing Soap and Water Soap and Water Soap and Water -Foul Odor after Cleansing No No Yes, Due to Product Use -Anesthetic Used 4% Lidocaine 4% Lidocaine 4% Lidocaine Solution Solution Solution Lower Limb Edema Present Yes Yes Left Calf (cm) 45.3 43 43.6 Left Ankle (cm) 27.8 26.4 29.7 01/24/21 09:31 Wound Center Nurse 1 #1- L GERMAN POST OP -Combined with other wound -Current Size (cm) - Length 8.5 -Current Size (cm) - Width 4.5 -Current Size (cm) - Depth 0.1 -Total Square Cm 38.25 -Photo Taken -Epithelialization -Tunneling -Undermining/Tunneling -Circular Undermining -Exudate Amt Small -Exudate Type Serosanguineous -Wound Margin Distinct, Outline Attached -Granulation Amt Large (67-100%) -Granulation Quality Red -Slough/Fibrin -Necrosis Amt None Present (0 %) -Necrotic Tissue Type -Structure Exposed -Texture (Mackenzie-wound Skin Appearance) Assessed, Scarring -Moisture (Mackenzie-wound Skin Appearance) Assessed,Dry/ Scaly -Color (Mackenzie-wound Skin Appearance) No Abnormality, Assessed -Temperature (Mackenzie-wound Skin No Abnormality Appearance) (Pt Warm) -Tenderness on Palpation (Mackenzie-wound No Skin Appearance) -Ulcer Cleansing Rinsed/ Irrigated with Saline -Foul Odor after Cleansing No -Anesthetic Used 4% Lidocaine Solution Lower Limb Edema Present Left Calf (cm) Left Ankle (cm) WC - Nurse 2 - General Ulcer CM Notes Start: 01/03/21 09:20 Freq: Status: Active Protocol: Activity Type Activity Date Activity User E-Sign Co-Sign Detail Recorded Client Recorded Date Recorded By Document 01/03/21 09:58 [id number] 01/03/21 10:06 Document 01/10/21 11:33 [id number] 01/10/21 11:36 Document 01/17/21 10:27 [id number] 01/17/21 10:37 Document 01/24/21 10:04 [id number] 01/24/21 10:12 01/03/21 01/10/21 01/17/21 09:58 11:33 10:27 Wound Center Nurse 2 #1- L GERMAN POST OP -Time 09:59 11:33 10:28 -Correct Patient Yes Yes Yes -Correct Side, Site, Position Yes Yes Yes -Correct Procedure Yes Yes Yes -Procedure Performed Yes Yes Yes -Type of Procedure Debridement Debridement Debridement -Clinical Debridement Subcutaneous Subcutaneous Subcutaneous -Tissue Removed Subcutaneous Subcutaneous Subcutaneous -Post Debridement (cm) - Length 10.3 9.7 9.2 -Post Debridement (cm) - Width 6.5 5 4.7 -Post Debridement (cm) - Depth 0.3 0.2 0.1 -Total Square (Post) (cm) 66.95 48.5 43.24 -Area of Debridement (cm) - Length 10.3 9.7 9.2 -Area of Debridement (cm) - Width 6.5 5 4.7 -Total Square (Area) (cm) 66.95 48.5 43.24 -Tunneling No No No -Undermining/Tunneling No No No -Circular Undermining No No No -Wound/Ulcer Outcome Not Healed Not Healed Not Healed -Ulcer Cleansing Rinsed/ Rinsed/ Rinsed/ Irrigated with Irrigated with Irrigated with Saline Saline Saline -Foul Odor after Cleansing No No No -Bioengineered Tissue No No Yes -Type of Bioengineered Tissue Theraskin -Expiration Date 04/24/25 -Product Lot Number [id number] -Percent Used 100 -Lot number of Saline Used [id number] -Bleeding Controlled with Pressure Pressure Pressure -Offloading No No No -Treatment Response Procedure Procedure Procedure Tolerated Well Tolerated Well Tolerated Well -Debridement - Subq, 1st 20sq cm Yes Yes No -Debridement, SubQ, ea addt'l 20sq cm 3 2 or part thereof -Apply Skin Sub - 1st 25 sq cm - Legs 1 -Apply Skin Sub - each addt'l 25 sq cm 1 - Legs -Theraskin (per sq cm) 39 Pain Scale: 0-10 Numeric Is Patient Pain Free? Yes Yes Yes 01/24/21 10:04 Wound Center Nurse 2 #1- L GERMAN POST OP -Time 10:05 -Correct Patient Yes -Correct Side, Site, Position Yes -Correct Procedure Yes -Procedure Performed Yes -Type of Procedure Debridement -Clinical Debridement Subcutaneous -Tissue Removed Subcutaneous -Post Debridement (cm) - Length 9 -Post Debridement (cm) - Width 4.5 -Post Debridement (cm) - Depth 0.1 -Total Square (Post) (cm) 40.5 -Area of Debridement (cm) - Length 9 -Area of Debridement (cm) - Width 4.5 -Total Square (Area) (cm) 40.5 -Tunneling No -Undermining/Tunneling No -Circular Undermining No -Wound/Ulcer Outcome Not Healed -Ulcer Cleansing Rinsed/ Irrigated with Saline -Foul Odor after Cleansing No -Bioengineered Tissue Yes -Type of Bioengineered Tissue Theraskin -Expiration Date 05/08/25 -Product Lot Number [id number] -Percent Used 100 -Lot number of Saline Used [id number] -Bleeding Controlled with Pressure -Offloading No -Treatment Response Procedure Tolerated Well -Debridement - Subq, 1st 20sq cm No -Debridement, SubQ, ea addt'l 20sq cm or part thereof -Apply Skin Sub - 1st 25 sq cm - Legs 1 -Apply Skin Sub - each addt'l 25 sq cm 1 - Legs -Theraskin (per sq cm) 39 Pain Scale: 0-10 Numeric Is Patient Pain Free? Yes WC - Nurse 3 - General Ulcer D/C NN Start: 01/03/21 09:20 Freq: Status: Active Protocol: Activity Type Activity Date Activity User E-Sign Co-Sign Detail Recorded Client Recorded Date Recorded By Document 01/03/21 10:20 [facility] [id number] 01/03/21 10:27 BMF Document 01/10/21 11:55 DL [id number] 01/10/21 11:56 DL Document 01/17/21 10:55 KR [id number] 01/17/21 10:56 KR Document 01/24/21 10:35 KR [id number] 01/24/21 10:36 KR 01/03/21 01/10/21 01/17/21 10:20 11:55 10:55 Wound Care Nurse 3 #1- L GERMAN POST OP -Ulcer Cleansing Rinsed/ Rinsed/ Irrigated with Irrigated with Saline Saline -Foul Odor after Cleansing No No -Primary Dressing Applied Aquacel AG 4x4 Aquacel AG 4x4 -Other Dressing ABD pad -Primary Dressing Covered/Secured with Dry Gauze, Dry Gauze & Dry Gauze & Secured with Roll Gauze, Roll Gauze, Tape,Other Secured with Secured with Tape Tape -Other Covering abd, abd -Aquacel AG 4x4 1 1 Left -Compression Wrap Phillip Wrap Phillip Wrap Phillip Wrap -Tubular Bandage Single Layer -Size of Tubigrip Used Size E -Size E ($) 1 Treatment Response Procedure Procedure Tolerated Well Tolerated Well Pain Scale: 0-10 Numeric Is Patient Pain Free? Yes Yes Yes WC - Visit Discharge Discharge Condition Stable Stable Stable Ambulatory Status Ambulatory Ambulatory Ambulatory Transportation Private Auto Private Auto Private Auto Accompanied by friend Facility Type Home Health Home Health Orders Sent Yes 01/24/21 10:35 Wound Care Nurse 3 #1- L GERMAN POST OP -Ulcer Cleansing -Foul Odor after Cleansing -Primary Dressing Applied -Other Dressing abd pad -Primary Dressing Covered/Secured with Dry Gauze & Roll Gauze, Secured with Tape -Other Covering -Aquacel AG 4x4 Left -Compression Wrap Phillip Wrap -Tubular Bandage Single Layer -Size of Tubigrip Used Size E -Size E ($) 1 Treatment Response Pain Scale: 0-10 Numeric Is Patient Pain Free? Yes WC - Visit Discharge Discharge Condition Stable Ambulatory Status Ambulatory Transportation Private Auto Accompanied by Facility Type Orders Sent Assessment/Plan Assessment/Plan (1) Ulcer of left lower extremity with fat layer exposed: CODE(S): L97.922 - Non-pressure chronic ulcer of unspecified part of left lower leg with fat layer exposed (2) MRSA (methicillin resistant Staphylococcus aureus) infection: CODE(S): A49.02 - Methicillin resistant Staphylococcus aureus infection, unspecified site (3) Open wound of left lower leg due to animal bite: CODE(S): S81.852A - Open bite, left lower leg, initial encounter (4) Lupus: CODE(S): M32.9 - Systemic lupus erythematosus, unspecified (5) History of excision of lesion: CODE(S): Z98.890 - Other specified postprocedural states; Z87.2 - Personal history of diseases of the skin and subcutaneous tissue PLAN: Wound care - She was approved for an advanced skin graft substitute. Theraskin #2 was placed on left leg ulcer, 100% of the product was used. It was secured with Dermabond and steri-strips and topped with wound veil that was secured with steri-strips. Covered with ABD. Compression is a tubigrip and PHILLIP wrap. She was placed on Levaquin on 12/29/20 because home health called stating that her mackenzie wound was red and warm. The redness was probably caused from the wound VAC, which was stopped. Wound culture obtained on 01/03/21 which was positive for MRSA. With all the resistance, she was started on Linezolid. She had to stop her antidepressants while on this medications. Operative cultures positive for Enterococcus avium, Enterococcus gallinarum, Turicella otitidis and Bacteroides thetaiotaomicron. Fungal cultures positive for Sara tropicalis. She completed Linezolid and Flagyl. She was started on Diflucan daily. CMP drawn on 01/05/21 Total Bili 0.20, AST 12, ALT 23, Alk Phos 72, Albumin 3.6. She will need a repeat CMP ordered at her next visit, 01/31/21, to check her liver enzymes. Follow up one week.
== END 2021-02-01 23:59 ==
LOC: WC 09:30
PROVIDERS: PCP Family Medicine Geriatric Medicine; Visit Provider Nurse Practitioner Family
DX: L97.822 Non-pressure chronic ulcer of other part of left lower leg with fat layer exposed (principal); S81.812S Laceration without foreign body, left lower leg, sequela; W55.41 Bitten by pig; M32.9 Systemic lupus erythematosus, unspecified; Z86.14 Personal history of Methicillin resistant Staphylococcus aureus infection
CPT/HCPCS: 11042; 11045; 15271; 15272; 87070; 87075; 87077; 87186; 87205; Q4121

== ENCOUNTER → 2021-01-24 10:56 | Outpatient (CLI) | payer MEDICARE, OTHER, SELFPAY ==
[2021-01-24 12:34] LABS: Vitamin B12 355 pg/mL (211-911)
[2021-01-24 12:42] LABS: T4 Free Direct 0.85 ng/dL (0.76-1.46); Thyroid Stim Hormone (TSH) 1.76 uIU/mL (0.358-3.74)
== END ==
PROVIDERS: PCP Family Medicine Geriatric Medicine; Referring Provider Psychiatry & Neurology Neurology; Visit Provider Psychiatry & Neurology Neurology
DX: E06.9 Thyroiditis, unspecified (principal); R41.89 Other symptoms and signs involving cognitive functions and awareness
CPT/HCPCS: 36415; 82607; 82746; 83921; 84439; 84443

== ENCOUNTER → 2021-01-25 10:52 | Outpatient (CLI) | payer MEDICARE, OTHER, SELFPAY ==
[2021-01-25 12:19] LABS: Absolute Lymphocyte Count 1.87 X10^3/uL (0.83-4.51); Absolute Neutrophil Count 3.3 X10^3/uL (2.0-7.7); Basophil# 0.02 X10^3/uL; Basophil% 0.3 % (0-1); Eosinophil# 0.19 X10^3/uL; Eosinophils% 3.2 % (0-5); Hematocrit 47.8 % (37-47); Hemoglobin 15.6 g/dL (12.0-15.0); Lymphocyte # 1.87 X10^3/ul (0.83-4.51); Lymphocyte % 31.6 % (19-41); Mean Corp Hgb Conc 32.6 g/dL (32-36); Mean Corpuscular Hgb 31.5 pg (27.0-32.0); Mean Corpuscular Volume 96.6 fL (81-99); Mean Platelet Vol. 10.1 fl (6.2-12.0); Monocyte# 0.56 X10^3/uL; Monocyte% 9.5 % (0-10); NRBC Flagged by Analyzer 0 % (0-5); Neutrophil # 3.26 X10^3/uL (2.7-7.7); Neutrophil % 55.2 % (47-70); POSITIVE COUNT YES; Platelet Count 348 K/mm3 (150-450); RBC Distribution Width CV 13.5 % (11.6-14.6); RBC Distribution Width SD 48.5 fl (35.1-43.9); Red Blood Count 4.95 M/mm3 (4.2-5.4); White Blood Count 5.9 K/mm3 (4.4-11.0)
[2021-01-25 12:45] LABS: ALB/GLOB Ratio 0.9 RATIO (0.9-2.4); AST(SGOT) 23 U/L (15-37); Alanine Aminotransfer ALT/SGPT 34 U/L (13-56); Albumin, Serum 3.9 g/dL (3.2-5.0); Alkaline Phosphatase 70 U/L (45-117); Anion Gap 8 (5-15); BUN 26 mg/dL (7-18); BUN/Creat Ratio 32.4 RATIO (10-20); Calcium,Total 9.4 mg/dL (8.5-10.1); Chloride 105 mmol/L (98-107); EST Glomerular Filtration Rate 75 mL/min (>60); Est Glom Filt Rate - Afr Amer 91 mL/min (>60); Globulin 4.4 g/dL (2.2-4.2); Glucose 133 mg/dL (74-106); Potassium 4.2 mmol/L (3.5-5.1); Protein, Total 8.3 g/dL (6.4-8.2); Sodium Level 135 mmol/L (136-145)
[2021-01-25 12:55] LABS: Vitamin D,25 Hydroxy 26.2 ng/mL
== END ==
PROVIDERS: PCP Family Medicine Geriatric Medicine; Visit Provider Family Medicine Geriatric Medicine
DX: I10 Essential (primary) hypertension (principal); E55.9 Vitamin D deficiency, unspecified
CPT/HCPCS: 36415; 80053; 82306; 84443; 85025

== ENCOUNTER → 2021-02-23 10:47 | Outpatient (CLI) | payer MEDICARE, OTHER, SELFPAY ==
[2021-02-23 12:40] LABS: AST(SGOT) 10 U/L (15-37); Alanine Aminotransfer ALT/SGPT 26 U/L (13-56); Albumin, Serum 3.9 g/dL (3.2-5.0); Alkaline Phosphatase 71 U/L (45-117); Anion Gap 12 (5-15); BUN 33 mg/dL (7-18); BUN/Creat Ratio 39.4 RATIO (10-20); Calcium,Total 9.8 mg/dL (8.5-10.1); Chloride 102 mmol/L (98-107); Creatinine, Serum 0.84 mg/dL (0.55-1.02); EST Glomerular Filtration Rate 71 mL/min (>60); Est Glom Filt Rate - Afr Amer 86 mL/min (>60); Globulin 3.9 g/dL (2.2-4.2); Glucose 128 mg/dL (74-106); Potassium 4.4 mmol/L (3.5-5.1); Protein, Total 7.8 g/dL (6.4-8.2); Sodium Level 139 mmol/L (136-145)
== END ==
PROVIDERS: PCP Family Medicine Geriatric Medicine; Referring Provider Nurse Practitioner Family; Visit Provider Nurse Practitioner Family
DX: L97.929 Non-pressure chronic ulcer of unspecified part of left lower leg with unspecified severity (principal); Z79.2 Long term (current) use of antibiotics
CPT/HCPCS: 36415; 80053

== ENCOUNTER 2021-02-28 10:00 | Outpatient (RCR) | payer MEDICARE, OTHER, SELFPAY ==
[2021-02-02 00:12] VITALS: BP 114/60; PULSE 74; RESP 18; TEMP 36.3; BMI 36.0
[2021-02-02 09:48] VITALS: BP 154/88; PULSE 95; TEMP 36.1; BMI 36.0
--- NOTE | 2021-02-02 11:05 | PCM.WC.HP ---
History of Present Illness Date of Service: 02/02/21 Chief Complaint: Left anterior leg ulcer after being bitten by a pet potbelly pig History of Wound: 71 year old F who was attacked by her pet potbelly pig on 11/08/20 and sustained a complex wound laceration to her left anterior leg. In the ED the wounds were cleansed and suture closed. She was discharged on Cipro and Clindamycin. A week later she saw her PCP because of increasing redness and pain and swelling who started her on daily injections of Ceftriaxone and added Flagyl. There was some improvement but the redness and swelling was persistent. She went to the ED on 11/17/20 for further evaluation. X-ray showed no fracture and no foreign body. WBC was normal at 6.7. Lactate was 1.0. She was admitted and started on Vancomycin and Cefazolin. Surgery 11/19/20 - Surgical preparation left anterior leg with incision and drainage and excisional debridement pig bite wound infection abscess with skin necrosis (96 cm2). Wound care - Theraskin #2 placed today. She was placed on Levaquin on 12/29/20 because home health called stating that her mackenzie wound was red and warm. Wound culture obtained on 01/03/21 which was positive for MRSA. With all the resistance, she was started on Linezolid. She had to stop her antidepressants while on this medications. Operative cultures positive for Enterococcus avium, Enterococcus gallinarum, Turicella otitidis and Bacteroides thetaiotaomicron. Fungal cultures positive for Sara tropicalis. She completed Linezolid and Flagyl. She was started on Diflucan daily. CMP drawn on 01/05/21 Total Bili 0.20, AST 12, ALT 23, Alk Phos 72, Albumin 3.6. Today she denies any fevers, chills, nausea or vomiting. She states her appetite is good and she has increased her protein intake. [facility] Medical History Bitten by pig, initial encounter CPAP (continuous positive airway pressure) dependence Edema Essential hypertension Headache Hearing problem High cholesterol History of blood clots History of left heart catheterization (LHC) (~07/19/18) History of stress test HTN (hypertension) Hyperlipidemia Hypertension Lupus Mood disorder Morbid obesity On home oxygen therapy Open wound of left lower leg due to animal bite HESHAM (obstructive sleep apnea) Osteoarthritis Post-menopausal Pulmonary hypertension Scarlet fever Sebaceous cyst Skin necrosis Sleep apnea Thyroid disease Thyroiditis Ulcer UTI (urinary tract infection) Home Medications citalopram 20 mg tablet 20 mg PO DAILY 10/09/17 [History Last Taken 11/16/20] bupropion HCl 150 mg PO BID 11/08/20 [History Last Taken 11/16/20] olmesartan-hydrochlorothiazide 1 tab PO DAILY 11/08/20 [History Last Taken 11/16/20] amlodipine 10 mg PO DAILY 11/17/20 [History Last Taken 11/16/20] furosemide 80 mg PO DAILY 11/17/20 [History Last Taken 11/16/20] potassium chloride [Klor-Con M20] 20 meq PO BID 11/17/20 [History Last Taken 11/15/20] linezolid [Zyvox] 600 mg PO BID #14 tab 11/20/20 [Rx Last Taken Unknown] diazepam 5 mg tablet 5 mg PO TID PRN #20 tab 11/24/20 [Rx Last Taken Unknown] fluconazole [Diflucan] 400 mg PO DAILY #60 tab 01/03/21 [Rx Last Taken Unknown] linezolid 600 mg tablet 600 mg PO Q12H 14 Days #28 tab 01/06/21 [Rx Last Taken Unknown] Allergy/AdvReac Type Severity Reaction Status Date / Time codeine Allergy Mild roaring Verified 12/01/20 09:54 sounds, hives Penicillins Allergy Mild hives Verified 12/01/20 09:54 Family History Father Heart disease Hypertension Hyperlipidemia Melanoma Mother Diabetes Breast cancer Heart disease Hypertension Hyperlipidemia Sister CVA (cerebral vascular accident) Other Arthritis History of blood clots Osteoporosis Skin cancer Surgical History exploratory surgery H/O cardiac catheterization History of History of excision of lesion History of tonsillectomy S/P dilation and curettage S/P partial thyroidectomy S/P right knee arthroscopy S/P tubal ligation Social History Smoking Status: Never smoker alcohol intake: never substance use type: does not use caffeine: Yes eating out: rarely or never what type of physical activity do you participate in: none seatbelt use: always do you feel safe at home: Yes additional social history: [employer] at [employer] Patient is retired Does Not Take Aspirin Does Take Ibuprofen as needed ROS Constitutional Constitutional: Reports as per HPI Eyes Eyes: Reports none ENT HEENT: Reports none Cardiovascular Cardiovascular: Reports none Respiratory/Chest Respiratory/Chest: Reports none Gastrointestinal Gastrointestinal: Reports none Genitourinary Genitourinary: Reports none Musculoskeletal Musculoskeletal: Reports as per HPI Integumentary Integumentary: Reports skin ulcer Neurologic Neurologic: Reports none Psychiatric Psychiatric: Reports none Endocrine Endocrinology: Reports none Vital Signs Vital Signs Vital Signs: 02/02/21 00:12 02/02/21 09:48 Temperature 97.4 F L 97.0 F L Temperature Source Temporal Pulse Rate 74 95 Respiratory Rate 18 Blood Pressure 114/60 154/88 H Blood Pressure Mean 78 110 Blood Pressure Source Monitor Blood Pressure Position Sitting Blood Pressure Location Left Arm Left Arm Weight Weight: 230 lb Body Mass Index (BMI) 36.0 Physical Exam Const oriented x3 General Appearance: cooperative Exam Limitations: no limitations HEENT normocephalic Head and Scalp: normal to inspection Face and Sinus: normal facial exam Nose: external nose normal General Ear: hearing grossly impaired External Ear: external ears normal Mouth: oral and palatal mucosa normal Eyes PERRL General Eye: normal appearance of both eyes Neck full ROM General: normal visual inspection Resp normal respiratory effort Effort and Inspection: able to speak in complete sentences Auscultation: clear to auscultation bilaterally Cardio regular rate and regular rhythm Palpation: normal PMI Rate: regular rate Rhythm: regular rhythm GI Auscultation: normoactive bowel sounds Palpation: soft and no hepatosplenomegaly external exam normal Back/Spine Cervical Spine: cervical ROM normal Thoracic Spine / Upper Back: normal to inspection Lumbar Spine / Lower Back: normal to inspection Extremity normal to inspection General Extremity: normal exam except as noted Skin no rashes or lesions noted Neuro oriented x3 Psych Appearance: grossly normal Speech: normal speech Thought Content: normal thought content Judgement: judgement good Debridement Note Debridement Note Wound debrided: Left lower leg Pig bite Laterality: Left Type of Debridement: Excisional debridement Anesthesia Used: 5% Lidocaine Gel Depth: in the subcutaneous layer Percentage of wound debrided: 100 Instrument Used: 7mm curette Severity: Limited To Skin Breakdown Bleeding Controlled with: Compression and gauze Patient tolerated procedure: Patient tolerated procedure well Post-Debridement Measurements and Additional Note: Post-Debridement Measurements/Treatment - Nurse 1 - General Ulcer Assessment Start: 02/02/21 09:48 Freq: Status: Active Protocol: RUBIA Activity Type Activity Date Activity User E-Sign Co-Sign Detail Recorded Client Recorded Date Recorded By Document 02/02/21 09:48 SEBASTIAN [id number] 02/02/21 09:53 SEBASTIAN 02/02/21 09:48 - Today's Visit Information Type of service Follow-up Visit (Physician/[employer] ) Arrival Mode Ambulatory Patient Identification Verified (Name & Yes ) Height and Weight Body Mass Index (BMI) 36.0 BMI Classification Obese Vital Signs Temperature (97.8 F-99.1 F) 97.0 F L Temperature Source Temporal Pulse Rate (60-100) 95 Pulse Location Monitor Blood Pressure (90/60-120/80) 154/88 H Blood Pressure Mean 110 Source Monitor Position Sitting Blood Pressure Location Left Arm History Since Last Visit- (Skip if this is Patient's initial visit) Have you changed medications since your No last visit? Any new allergies or adverse reactions No Had a fall/change in ADL's that may No increase risk of falls Signs or symptoms of abuse and/or No neglect since last visit Have you been in the hospital since your No last visit? Has dressing in place as prescribed Yes Has compression in place as prescribed Yes Has offloadiing in place as prescribed N/A Experienced any changes in pain level or No management Left Footwear Regular Shoe Right Footwear Regular Shoe Pain Scale: 0-10 Numeric Is Patient Pain Free? Yes [facility] Nurse 1 - General Ulcer Measurement Start: 02/02/21 09:48 Freq: Status: Active Protocol: Activity Type Activity Date Activity User E-Sign Co-Sign Detail Recorded Client Recorded Date Recorded By Document 02/02/21 09:48 SEBASTIAN [id number] 02/02/21 09:53 AK Document 02/02/21 10:08 TRI [id number] 02/02/21 10:09 TRI 02/02/21 02/02/21 09:48 10:08 Wound Center Nurse 1 #1- L GERMAN POST OP -Current Size (cm) - Length 0.1 8.5 -Current Size (cm) - Width 0.1 4 -Current Size (cm) - Depth 0.1 0.2 -Total Square Cm 0.01 34.0 -Exudate Amt Medium -Exudate Type Serosanguineous -Wound Margin Distinct, Outline Attached -Granulation Amt Large (67-100%) -Granulation Quality Red -Necrosis Amt None Present (0 %) -Texture (Mackenzie-wound Skin Appearance) Assessed, Scarring -Moisture (Mackenzie-wound Skin Appearance) No Abnormality -Color (Mackenzie-wound Skin Appearance) No Abnormality, Assessed -Temperature (Mackenzie-wound Skin No Abnormality Appearance) (Pt Warm) -Tenderness on Palpation (Mackenzie-wound No Skin Appearance) -Ulcer Cleansing Soap and Water -Foul Odor after Cleansing No -Anesthetic Used 4% Lidocaine Solution Left Calf (cm) 35.5 Left Ankle (cm) 25.5 WC - Nurse 2 - General Ulcer CM Notes Start: 02/02/21 09:48 Freq: Status: Active Protocol: Activity Type Activity Date Activity User E-Sign Co-Sign Detail Recorded Client Recorded Date Recorded By Document 02/02/21 10:17 MW [id number] 02/02/21 10:28 MW 02/02/21 10:17 Wound Center Nurse 2 -Time 10:25 -Correct Patient Yes -Correct Side, Site, Position Yes -Correct Procedure Yes -Procedure Performed Yes -Type of Procedure Debridement -Clinical Debridement Subcutaneous -Tissue Removed Subcutaneous -Post Debridement (cm) - Length 8.7 -Post Debridement (cm) - Width 4.4 -Post Debridement (cm) - Depth 0.1 -Total Square (Post) (cm) 38.28 -Area of Debridement (cm) - Length 8.7 -Area of Debridement (cm) - Width 4.4 -Total Square (Area) (cm) 38.28 -Tunneling No -Undermining/Tunneling No -Circular Undermining No -Wound/Ulcer Outcome Not Healed -Ulcer Cleansing Rinsed/ Irrigated with Saline -Foul Odor after Cleansing No -Bioengineered Tissue Yes -Type of Bioengineered Tissue [facility] -Expiration Date 05/02/25 -Product Lot Number [id number] -Percent Used 100 -Lot number of Saline Used [id number] -Bleeding Controlled with Pressure -Offloading No -Treatment Response Procedure Tolerated Well -Debridement - Subq, 1st 20sq cm No -Apply Skin Sub - 1st 25 sq cm - Legs 1 -NuShield (per sq cm) 39 Pain Scale: 0-10 Numeric Is Patient Pain Free? Yes WC - Nurse 3 - General Ulcer D/C NN Start: 02/02/21 09:48 Freq: Status: Active Protocol: Activity Type Activity Date Activity User E-Sign Co-Sign Detail Recorded Client Recorded Date Recorded By Document 02/02/21 10:39 MW [id number] 02/02/21 10:40 MW 02/02/21 10:39 Wound Care Nurse 3 #1- L GERMAN POST OP -Ulcer Cleansing Not Cleansed -Foul Odor after Cleansing No -Negative Pressure Wound Therapy N/A -Primary Dressing Covered/Secured with Dry Gauze & Roll Gauze, Secured with Tape -Other Covering ABD PAD Left -Lotion applied to leg before No compression wrap -Compression Wrap Phillip Wrap -Tubular Bandage Single Layer -Size of Tubigrip Used Size E -Size E ($) 1 Treatment Response Procedure Tolerated Well Pain Scale: 0-10 Numeric Is Patient Pain Free? Yes Teaching: Wound Center Dressing Your Wound -Person Taught Patient -Teaching Method Discussion, Demonstration -Response to teaching Verbalize understanding WC - Visit Discharge Discharge Condition Stable Ambulatory Status Ambulatory Transportation Private Auto Accompanied by SELF Medication Reconcilliation completed & No provided to patient/care provider Clinical Summary of Care Provided Yes Assessment/Plan Assessment/Plan (1) Ulcer of left lower extremity with fat layer exposed: CODE(S): L97.922 - Non-pressure chronic ulcer of unspecified part of left lower leg with fat layer exposed (2) MRSA (methicillin resistant Staphylococcus aureus) infection: CODE(S): A49.02 - Methicillin resistant Staphylococcus aureus infection, unspecified site (3) Open wound of left lower leg due to animal bite: CODE(S): S81.852A - Open bite, left lower leg, initial encounter PLAN: 3. Courtesy visit TheraSkin applied to left lower leg wound was then covered with a wound veil and Steri-Strips then gauze and Curlex patient to have outer dressing change by Sunday. She is to wear a single layer Tubigrip with an Phillip wrap over top Follow-up with Anai next week (4) Lupus: CODE(S): M32.9 - Systemic lupus erythematosus, unspecified (5) History of excision of lesion: CODE(S): Z98.890 - Other specified postprocedural states; Z87.2 - Personal history of diseases of the skin and subcutaneous tissue
--- NOTE | 2021-02-07 11:59 | PCM.WC.PN ---
History of Present Illness Date of Service: 02/07/21 Chief Complaint: Left anterior leg ulcer after being bitten by a pet potbelly pig History of Wound: 71 year old F who was attacked by her pet potbelly pig on 11/08/20 and sustained a complex wound laceration to her left anterior leg. In the ED the wounds were cleansed and suture closed. She was discharged on Cipro and Clindamycin. A week later she saw her PCP because of increasing redness and pain and swelling who started her on daily injections of Ceftriaxone and added Flagyl. There was some improvement but the redness and swelling was persistent. She went to the ED on 11/17/20 for further evaluation. X-ray showed no fracture and no foreign body. WBC was normal at 6.7. Lactate was 1.0. She was admitted and started on Vancomycin and Cefazolin. Surgery 11/19/20 - Surgical preparation left anterior leg with incision and drainage and excisional debridement pig bite wound infection abscess with skin necrosis (96 cm2). Wound care - Theraskin #3 placed last Sunday at her courtesy visit with another provider. She was placed on Levaquin on 12/29/20 because home health called stating that her mackenzie wound was red and warm. Wound culture obtained on 01/03/21 which was positive for MRSA. With all the resistance, she was started on Linezolid. She had to stop her antidepressants while on this medications. Operative cultures positive for Enterococcus avium, Enterococcus gallinarum, Turicella otitidis and Bacteroides thetaiotaomicron. Fungal cultures positive for Sara tropicalis. She completed Linezolid and Flagyl. She was started on Diflucan daily. CMP drawn on 01/05/21 Total Bili 0.20, AST 12, ALT 23, Alk Phos 72, Albumin 3.6. Today she denies any fevers, chills, nausea or vomiting. She states her appetite is good and she has increased her protein intake. Progress of Wound: Stable. THeraskin is held in place with steri strips. Objective Data Objective Data Vital Signs: Vital Signs Temp Pulse Resp BP 97.0 F L 95 18 154/88 H 02/02/21 09:48 02/02/21 09:48 02/02/21 00:12 02/02/21 09:48 Weight: 230 lb Body Mass Index (BMI) 36.0 Charges/Coding Visit Charges Office Visits / Consults: 77850 OV L3 Est Physical Exam Const alert and oriented x3 General Appearance: cooperative HEENT normocephalic Head and Scalp: atraumatic Eyes PERRL Lymph Lymphatic: no lymphedema noted Resp normal respiratory effort Cardio regular rate GI non-tender Palpation: soft Extremity normal capillary refill and no calf tenderness Skin Wound Narrative: Left anterior leg ulcer is stable with Theraskin in place and secured with steri strips and a wound veil. Neuro CN's II-XII intact bilaterally Psych Appearance: grossly normal Debridement Note Debridement Note No debridement was completed: No debridement was completed today Post-Debridement Measurements and Additional Note: Post-Debridement Measurements/Treatment WC - Nurse 1 - General Ulcer Assessment Start: 02/02/21 09:48 Freq: Status: Active Protocol: RUBIA Activity Type Activity Date Activity User E-Sign Co-Sign Detail Recorded Client Recorded Date Recorded By Document 02/02/21 09:48 SEBASTIAN [id number] 02/02/21 09:53 SEBASTIAN 02/02/21 09:48 WC - Today's Visit Information Type of service Follow-up Visit (Physician/[employer] ) Arrival Mode Ambulatory Patient Identification Verified (Name & Yes ) Height and Weight Body Mass Index (BMI) 36.0 BMI Classification Obese Vital Signs Temperature (97.8 F-99.1 F) 97.0 F L Temperature Source Temporal Pulse Rate (60-100) 95 Pulse Location Monitor Blood Pressure (90/60-120/80) 154/88 H Blood Pressure Mean (mm Hg) 110 Source Monitor Position Sitting Blood Pressure Location Left Arm History Since Last Visit- (Skip if this is Patient's initial visit) Have you changed medications since your No last visit? Any new allergies or adverse reactions No Had a fall/change in ADL's that may No increase risk of falls Signs or symptoms of abuse and/or No neglect since last visit Have you been in the hospital since your No last visit? Has dressing in place as prescribed Yes Has compression in place as prescribed Yes Has offloadiing in place as prescribed N/A Experienced any changes in pain level or No management Left Footwear Regular Shoe Right Footwear Regular Shoe Pain Scale: 0-10 Numeric Is Patient Pain Free? Yes - Nurse 1 - General Ulcer Measurement Start: 02/02/21 09:48 Freq: Status: Active Protocol: Activity Type Activity Date Activity User E-Sign Co-Sign Detail Recorded Client Recorded Date Recorded By Document 02/02/21 09:48 AK [id number] 02/02/21 09:53 AK Document 02/02/21 10:08 KR [id number] 02/02/21 10:09 KR 02/02/21 02/02/21 09:48 10:08 Wound Center Nurse 1 #1- L GERMAN POST OP -Current Size (cm) - Length 0.1 8.5 -Current Size (cm) - Width 0.1 4 -Current Size (cm) - Depth 0.1 0.2 -Total Square Cm 0.01 34.0 -Exudate Amt Medium -Exudate Type Serosanguineous -Wound Margin Distinct, Outline Attached -Granulation Amt Large (67-100%) -Granulation Quality Red -Necrosis Amt None Present (0 %) -Texture (Mackenzie-wound Skin Appearance) Assessed, Scarring -Moisture (Mackenzie-wound Skin Appearance) No Abnormality -Color (Mackenzie-wound Skin Appearance) No Abnormality, Assessed -Temperature (Mackenzie-wound Skin No Abnormality Appearance) (Pt Warm) -Tenderness on Palpation (Mackenzie-wound No Skin Appearance) -Ulcer Cleansing Soap and Water -Foul Odor after Cleansing No -Anesthetic Used 4% Lidocaine Solution Left Calf (cm) 35.5 Left Ankle (cm) 25.5 WC - Nurse 2 - General Ulcer CM Notes Start: 02/02/21 09:48 Freq: Status: Active Protocol: Activity Type Activity Date Activity User E-Sign Co-Sign Detail Recorded Client Recorded Date Recorded By Document 02/02/21 10:17 MW [id number] 02/02/21 10:28 MW Document 02/07/21 10:03 JF [id number] 02/07/21 10:07 JF 02/02/21 02/07/21 10:17 10:03 Wound Center Nurse 2 #1- L GERMAN POST OP -Time 10:25 -Correct Patient Yes No -Correct Side, Site, Position Yes No -Correct Procedure Yes No -Procedure Performed Yes No -Type of Procedure Debridement -Clinical Debridement Subcutaneous -Tissue Removed Subcutaneous -Post Debridement (cm) - Length 8.7 -Post Debridement (cm) - Width 4.4 -Post Debridement (cm) - Depth 0.1 -Total Square (Post) (cm) 38.28 -Area of Debridement (cm) - Length 8.7 -Area of Debridement (cm) - Width 4.4 -Total Square (Area) (cm) 38.28 -Tunneling No No -Undermining/Tunneling No No -Circular Undermining No No -Wound/Ulcer Outcome Not Healed Not Healed -Ulcer Cleansing Rinsed/ Irrigated with Saline -Foul Odor after Cleansing No -Bioengineered Tissue Yes -Type of Bioengineered Tissue NuShield -Expiration Date 05/02/25 -Product Lot Number [id number] -Percent Used 100 -Lot number of Saline Used [id number] -Bleeding Controlled with Pressure -Offloading No -Treatment Response Procedure Tolerated Well -Debridement - Subq, 1st 20sq cm No No -Apply Skin Sub - 1st 25 sq cm - Legs 1 -NuShield (per sq cm) 39 Pain Scale: 0-10 Numeric Is Patient Pain Free? Yes Yes WC - Nurse 3 - General Ulcer D/C NN Start: 02/02/21 09:48 Freq: Status: Active Protocol: Activity Type Activity Date Activity User E-Sign Co-Sign Detail Recorded Client Recorded Date Recorded By Document 02/02/21 10:39 MW [id number] 02/02/21 10:40 MW Document 02/07/21 10:22 DL [id number] 02/07/21 10:23 DL 02/02/21 02/07/21 10:39 10:22 Wound Care Nurse 3 #1- L GERMAN POST OP -Ulcer Cleansing Not Cleansed -Foul Odor after Cleansing No No -Negative Pressure Wound Therapy N/A -Other Dressing Theraskin Recheck today only -Primary Dressing Covered/Secured with Dry Gauze & Dry Gauze & Roll Gauze, Roll Gauze, Secured with Secured with Tape Tape -Other Covering ABD PAD ABD Left -Lotion applied to leg before No compression wrap -Compression Wrap Phillip Wrap Phillip Wrap -Tubular Bandage Single Layer Single Layer -Size of Tubigrip Used Size E Size E -Size E ($) 1 1 -Other phillip Treatment Response Procedure Tolerated Well Pain Scale: 0-10 Numeric Is Patient Pain Free? Yes Yes Teaching: Wound Center Dressing Your Wound -Person Taught Patient -Teaching Method Discussion, Demonstration -Response to teaching Verbalize understanding WC - Visit Discharge Discharge Condition Stable Stable Ambulatory Status Ambulatory Ambulatory Transportation Private Auto Private Auto Accompanied by SELF Medication Reconcilliation completed & No provided to patient/care provider Clinical Summary of Care Provided Yes Assessment/Plan Assessment/Plan (1) Ulcer of left lower extremity with fat layer exposed: CODE(S): L97.922 - Non-pressure chronic ulcer of unspecified part of left lower leg with fat layer exposed (2) MRSA (methicillin resistant Staphylococcus aureus) infection: CODE(S): A49.02 - Methicillin resistant Staphylococcus aureus infection, unspecified site (3) Animal bite: CODE(S): T14.8XXA - Other injury of unspecified body region, initial encounter (4) Lupus: CODE(S): M32.9 - Systemic lupus erythematosus, unspecified (5) History of excision of lesion: CODE(S): Z98.890 - Other specified postprocedural states; Z87.2 - Personal history of diseases of the skin and subcutaneous tissue PLAN: Wound care - She was approved for an advanced skin graft substitute. Theraskin #3 was placed on left leg ulcer last Sunday, 100% of the product was used. It was secured with Dermabond and steri-strips and topped with wound veil that was secured with steri-strips. Covered with ABD. Compression is a tubigrip and PHILLIP wrap. Wound culture obtained on 01/03/21 which was positive for MRSA. With all the resistance, she was started on Linezolid. She had to stop her antidepressants while on this medications. Linezolid completed. Operative cultures positive for Enterococcus avium, Enterococcus gallinarum, Turicella otitidis and Bacteroides thetaiotaomicron. Fungal cultures positive for Sara tropicalis. She completed Linezolid and Flagyl. She is on Diflucan daily. CMP drawn on 01/05/21 Total Bili 0.20, AST 12, ALT 23, Alk Phos 72, Albumin 3.6. CMP 01/25/21 Total Bili 0.40, AST 23, ALT 34, Alk Phos 70, Albumin 3.9. Follow up one week.
[2021-02-14 09:29] VITALS: BP 124/72; PULSE 99; RESP 18; TEMP 36.6; BMI 36.0
--- NOTE | 2021-02-14 11:01 | PN.PCM_ITS ---
History of Present Illness Date of Service: 02/14/21 Chief Complaint: Left anterior leg ulcer after being bitten by a pet potbelly pig History of Wound: 71 year old F who was attacked by her pet potbelly pig on 11/08/20 and sustained a complex wound laceration to her left anterior leg. In the ED the wounds were cleansed and suture closed. She was discharged on Cipro and Clindamycin. A week later she saw her PCP because of increasing redness and pain and swelling who started her on daily injections of Ceftriaxone and added Flagyl. There was some improvement but the redness and swelling was persistent. She went to the ED on 11/17/20 for further evaluation. X-ray showed no fracture and no foreign body. WBC was normal at 6.7. Lactate was 1.0. She was admitted and started on Vancomycin and Cefazolin. Surgery 11/19/20 - Surgical preparation left anterior leg with incision and drainage and excisional debridement pig bite wound infection abscess with skin necrosis (96 cm2). Wound care - Theraskin #4 placed today. She was placed on Levaquin on 12/29/20 because home health called stating that her mackenzie wound was red and warm. Wound culture obtained on 01/03/21 which was positive for MRSA. With all the resistance, she was started on Linezolid. She had to stop her antidepressants while on this medications. Operative cultures positive for Enterococcus avium, Enterococcus gallinarum, Turicella otitidis and Bacteroides thetaiotaomicron. Fungal cultures positive for Sara tropicalis. She completed Linezolid and Flagyl. She was started on Diflucan daily. CMP drawn on 01/05/21 Total Bili 0.20, AST 12, ALT 23, Alk Phos 72, Albumin 3.6. Today she denies any fevers, chills, nausea or vomiting. She states her appetite is good and she has increased her protein intake. Progress of Wound: Improved. Beefy pink, decreasing in size. Granulation tissue present. Objective Data Objective Data Vital Signs: Vital Signs Temp Pulse Resp BP 97.9 F 99 18 124/72 H 02/14/21 09:29 02/14/21 09:29 02/14/21 09:29 02/14/21 09:29 Oxygen Delivery Method Room Air Weight: 230 lb Body Mass Index (BMI) 36.0 Charges/Coding Procedures Integumentary 150xxx-152xx: [id number] Skin sub graft trnk/arm/leg (58 modifier) Physical Exam Const alert and oriented x3 General Appearance: cooperative HEENT normocephalic Head and Scalp: atraumatic Lymph Lymphatic: no lymphedema noted Resp normal respiratory effort Cardio regular rate GI non-tender Palpation: soft Extremity normal capillary refill Extremity Narrative: minimal to no edema of her left leg today Skin Wound Narrative: Left anterior leg ulcer is beefy pink and small in size Neuro CN's II-XII intact bilaterally Psych Appearance: grossly normal Debridement Note Debridement Note Wound debrided: anterior lateral leg ulcer Laterality: Left Type of Debridement: Excisional debridement Anesthesia Used: 4% Lidocaine Solution Depth: Down to and including healthy tissue and in the subcutaneous layer Percentage of wound debrided: 100 Instrument Used: 7mm curette Tissue Removed: Subcutaneous tissue and slough Severity: Fat Layer Exposed Amount of bleeding with debridement: Mild Bleeding Controlled with: Pressure and Compression and gauze Patient tolerated procedure: Patient tolerated procedure well Post-Debridement Measurements and Additional Note: Post-Debridement Measurements/Treatment - Nurse 1 - General Ulcer Assessment Start: 02/02/21 09:48 Freq: Status: Active Protocol: [email or web address] Activity Type Activity Date Activity User E-Sign Co-Sign Detail Recorded Client Recorded Date Recorded By Document 02/02/21 09:48 DC [id number] 02/02/21 09:53 DC Document 02/14/21 09:29 [facility] [id number] 02/14/21 09:43 [facility] 02/02/21 02/14/21 09:48 09:29 - Today's Visit Information Type of service Follow-up Visit Follow-up Visit (Physician/BUDGET ASSISTANT (Physician/BUDGET ASSISTANT ) ) Arrival Mode Ambulatory Ambulatory Transfer Assistance None Accompanied by Patient Identification Verified (Name & Yes Yes ) Height and Weight Body Mass Index (BMI) 36.0 36.0 BMI Classification Obese Obese Vital Signs Temperature (97.8 F-99.1 F) 97.0 F L 97.9 F Temperature Source Temporal Temporal Pulse Rate (60-100) 95 99 Pulse Location Monitor Monitor Respiratory Rate (12-18) 18 Respiratory rate source Observation Oxygen Delivery Method Room Air Blood Pressure (90/60-120/80) 154/88 H 124/72 H Blood Pressure Mean (mm Hg) 110 89 Source Monitor Monitor Position Sitting Sitting Blood Pressure Location Left Arm Left Forearm History Since Last Visit- (Skip if this is Patient's initial visit) Have you changed medications since your No No last visit? Any new allergies or adverse reactions No No Had a fall/change in ADL's that may No No increase risk of falls Signs or symptoms of abuse and/or No No neglect since last visit Have you been in the hospital since your No No last visit? Has dressing in place as prescribed Yes Yes Has compression in place as prescribed Yes Yes Has offloadiing in place as prescribed N/A N/A Experienced any changes in pain level or No No management Left Footwear Regular Shoe Regular Shoe Right Footwear Regular Shoe Regular Shoe Pain Scale: 0-10 Numeric Is Patient Pain Free? Yes Yes WC - Nurse 1 - General Ulcer Measurement Start: 02/02/21 09:48 Freq: Status: Active Protocol: Activity Type Activity Date Activity User E-Sign Co-Sign Detail Recorded Client Recorded Date Recorded By Document 02/02/21 09:48 DC [id number] 02/02/21 09:53 AK Document 02/02/21 10:08 KR [id number] 02/02/21 10:09 KR Document 02/14/21 09:29 [facility] [id number] 02/14/21 09:43 BM 02/02/21 02/02/21 02/14/21 09:48 10:08 09:29 Wound Center Nurse 1 #1- L GERMAN POST OP -Combined with other wound No -Current Size (cm) - Length 0.1 8.5 8 -Current Size (cm) - Width 0.1 4 4.5 -Current Size (cm) - Depth 0.1 0.2 0.1 -Total Square Cm 0.01 34.0 36.0 -Photo Taken No -Tunneling No -Undermining/Tunneling No -Circular Undermining No -Exudate Amt Medium Medium -Exudate Type Serosanguineous Serosanguineous -Wound Margin Distinct, Distinct, Outline Outline Attached Attached -Granulation Amt Large (67-100%) -Granulation Quality Red -Necrosis Amt None Present (0 %) -Texture (Mackenzie-wound Skin Appearance) Assessed, Assessed, Scarring Scarring -Moisture (Mackenzie-wound Skin Appearance) No Abnormality Assessed -Color (Mackenzie-wound Skin Appearance) No Abnormality, Assessed Assessed -Temperature (Mackenzie-wound Skin No Abnormality No Abnormality Appearance) (Pt Warm) (Pt Warm) -Tenderness on Palpation (Mackenzie-wound No Yes Skin Appearance) -Ulcer Cleansing Soap and Water Soap and Water -Foul Odor after Cleansing No Yes, Due to Product Use -Anesthetic Used 4% Lidocaine 5% Lidocaine Solution Gel Lower Limb Edema Present Yes Left Calf (cm) 35.5 43.5 Left Ankle (cm) 25.5 26.2 WC - Nurse 2 - General Ulcer CM Notes Start: 02/02/21 09:48 Freq: Status: Active Protocol: Activity Type Activity Date Activity User E-Sign Co-Sign Detail Recorded Client Recorded Date Recorded By Document 02/02/21 10:17 MW [id number] 02/02/21 10:28 MW Edit Result 02/02/21 10:17 MW (1) [id number] 02/07/21 18:06 PL Document 02/07/21 10:03 [id number] 02/07/21 10:07 JF Document 02/14/21 09:58 MW [id number] 02/14/21 10:11 MW (1) #1- L GERMAN POST OP - Type of Bioengineered Tissue NuShield => Theraskin - NuShield (per sq cm) 39 => - Theraskin (per sq cm) => 39 02/02/21 02/07/21 02/14/21 10:17 10:03 09:58 Wound Center Nurse 2 #1- L GERMAN POST OP -Time 10:25 09:58 -Correct Patient Yes No Yes -Correct Side, Site, Position Yes No Yes -Correct Procedure Yes No Yes -Procedure Performed Yes No Yes -Type of Procedure Debridement Debridement -Clinical Debridement Subcutaneous Subcutaneous -Tissue Removed Subcutaneous Subcutaneous -Post Debridement (cm) - Length 8.7 7.5 -Post Debridement (cm) - Width 4.4 4.7 -Post Debridement (cm) - Depth 0.1 0.1 -Total Square (Post) (cm) 38.28 35.25 -Area of Debridement (cm) - Length 8.7 7.5 -Area of Debridement (cm) - Width 4.4 4.7 -Total Square (Area) (cm) 38.28 35.25 -Tunneling No No No -Undermining/Tunneling No No No -Circular Undermining No No No -Wound/Ulcer Outcome Not Healed Not Healed Not Healed -Ulcer Cleansing Rinsed/ Rinsed/ Irrigated with Irrigated with Saline Saline -Foul Odor after Cleansing No No -Bioengineered Tissue Yes Yes -Type of Bioengineered Tissue Theraskin Theraskin -Expiration Date 05/02/25 05/04/25 -Product Lot Number [id number] -Percent Used 100 100 -Lot number of Saline Used [id number] -Bleeding Controlled with Pressure Pressure -Offloading No No -Treatment Response Procedure Procedure Tolerated Well Tolerated Well -Debridement - Subq, 1st 20sq cm No No No -Apply Skin Sub - 1st 25 sq cm - Legs 1 1 -Theraskin (per sq cm) 39 39 Pain Scale: 0-10 Numeric Is Patient Pain Free? Yes Yes Yes - Nurse 3 - General Ulcer D/C NN Start: 02/02/21 09:48 Freq: Status: Active Protocol: Activity Type Activity Date Activity User E-Sign Co-Sign Detail Recorded Client Recorded Date Recorded By Document 02/02/21 10:39 MW [id number] 02/02/21 10:40 MW Document 02/07/21 10:22 DL [id number] 02/07/21 10:23 DL Document 02/14/21 10:23 DL [id number] 02/14/21 10:24 DL 02/02/21 02/07/21 02/14/21 10:39 10:22 10:23 Wound Care Nurse 3 #1- L GERMAN POST OP -Ulcer Cleansing Not Cleansed -Foul Odor after Cleansing No No No -Negative Pressure Wound Therapy N/A -Other Dressing Theraskin Theraskin Recheck today only -Primary Dressing Covered/Secured with Dry Gauze & Dry Gauze & Dry Gauze & Roll Gauze, Roll Gauze, Roll Gauze, Secured with Secured with Secured with Tape Tape Tape -Other Covering ABD PAD ABD ABD Left -Lotion applied to leg before No compression wrap -Compression Wrap Phillip Wrap Phillip Wrap -Tubular Bandage Single Layer Single Layer Single Layer -Size of Tubigrip Used Size E Size E Size E -Size E ($) 1 1 1 -Other phillip Treatment Response Procedure Procedure Tolerated Well Tolerated Well Pain Scale: 0-10 Numeric Is Patient Pain Free? Yes Yes Yes Teaching: Wound Center Dressing Your Wound -Person Taught Patient -Teaching Method Discussion, Demonstration -Response to teaching Verbalize understanding WC - Visit Discharge Discharge Condition Stable Stable Stable Ambulatory Status Ambulatory Ambulatory Ambulatory Transportation Private Auto Private Auto Private Auto Accompanied by SELF Medication Reconcilliation completed & No provided to patient/care provider Clinical Summary of Care Provided Yes Assessment/Plan Assessment/Plan (1) Ulcer of left lower extremity with fat layer exposed: CODE(S): L97.922 - Non-pressure chronic ulcer of unspecified part of left lower leg with fat layer exposed (2) MRSA (methicillin resistant Staphylococcus aureus) infection: CODE(S): A49.02 - Methicillin resistant Staphylococcus aureus infection, unspecified site (3) Animal bite: CODE(S): T14.8XXA - Other injury of unspecified body region, initial enco unter (4) Lupus: CODE(S): M32.9 - Systemic lupus erythematosus, unspecified (5) History of excision of lesion: CODE(S): Z98.890 - Other specified postprocedural states; Z87.2 - Personal history of diseases of the skin and subcutaneous tissue PLAN: Wound care - She was approved for an advanced skin graft substitute. Theraskin #4 was placed on left leg ulcer today, 100% of the product was used. It was secured with Dermabond and steri-strips and topped with wound veil that was secured with steri-strips. Covered with ABD. Compression is a tubigrip and PHILLIP wrap. Wound culture obtained on 01/03/21 which was positive for MRSA. With all the resistance, she has completed her Linezolid. Operative cultures positive for Enterococcus avium, Enterococcus gallinarum, Turicella otitidis and Bacteroides thetaiotaomicron. Fungal cultures positive for Sara tropicalis. She completed Linezolid and Flagyl. She is on Diflucan daily. CMP drawn on 01/05/21 Total Bili 0.20, AST 12, ALT 23, Alk Phos 72, Albumin 3.6. CMP 01/25/21 Total Bili 0.40, AST 23, ALT 34, Alk Phos 70, Albumin 3.9. Follow up one week.
[2021-02-21 09:30] VITALS: BP 133/74; PULSE 93; RESP 16; TEMP 36.2; BMI 36.0
--- NOTE | 2021-02-21 10:22 | PCM.WC.PN ---
History of Present Illness Date of Service: 02/21/21 Chief Complaint: Left anterior leg ulcer after being bitten by a pet potbelly pig History of Wound: 71 year old F who was attacked by her pet potbelly pig on 11/08/20 and sustained a complex wound laceration to her left anterior leg. In the ED the wounds were cleansed and suture closed. She was discharged on Cipro and Clindamycin. A week later she saw her PCP because of increasing redness and pain and swelling who started her on daily injections of Ceftriaxone and added Flagyl. There was some improvement but the redness and swelling was persistent. She went to the ED on 11/17/20 for further evaluation. X-ray showed no fracture and no foreign body. WBC was normal at 6.7. Lactate was 1.0. She was admitted and started on Vancomycin and Cefazolin. Surgery 11/19/20 - Surgical preparation left anterior leg with incision and drainage and excisional debridement pig bite wound infection abscess with skin necrosis (96 cm2). Wound care - Theraskin #5 placed today on left leg ulcer. She was placed on Levaquin on 12/29/20 because home health called stating that her mackenzie wound was red and warm. Wound culture obtained on 01/03/21 which was positive for MRSA. With all the resistance, she was started on Linezolid. She had to stop her antidepressants while on this medications. Operative cultures positive for Enterococcus avium, Enterococcus gallinarum, Turicella otitidis and Bacteroides thetaiotaomicron. Fungal cultures positive for Sara tropicalis. She completed Linezolid and Flagyl. She was started on Diflucan daily. CMP drawn on 01/05/21 Total Bili 0.20, AST 12, ALT 23, Alk Phos 72, Albumin 3.6. Today she denies any fevers, chills, nausea or vomiting. She states her appetite is good and she has increased her protein intake. Progress of Wound: Improved. Beefy pink, decreasing in size. Granulation tissue present. Objective Data Objective Data Vital Signs: Vital Signs Temp Pulse Resp BP 97.2 F L 93 16 133/74 H 02/21/21 09:30 02/21/21 09:30 02/21/21 09:30 02/21/21 09:30 Oxygen Delivery Method Room Air Weight: 230 lb Body Mass Index (BMI) 36.0 Charges/Coding Procedures Integumentary 150xxx-152xx: 16299 Skin sub graft trnk/arm/leg Add On Codes: 73320 Skin sub graft t/a/l add-on (x1) Physical Exam Const alert and oriented x3 General Appearance: cooperative HEENT normocephalic Head and Scalp: atraumatic Lymph Lymphatic: no lymphedema noted Resp normal respiratory effort Cardio regular rate GI non-tender Palpation: soft Extremity no clubbing, cyanosis or edema Neuro CN's II-XII intact bilaterally Psych Appearance: grossly normal Debridement Note Debridement Note Wound debrided: anterior leg ulcer Laterality: Left Type of Debridement: Excisional debridement and Selective debridement Anesthesia Used: 5% Lidocaine Gel Depth: Down to and including healthy tissue and in the subcutaneous layer Percentage of wound debrided: 100 Instrument Used: 5mm curette Tissue Removed: Subcutaneous tissue and slough Severity: Fat Layer Exposed Amount of bleeding with debridement: Mild Bleeding Controlled with: Pressure and Compression and gauze Patient tolerated procedure: Patient tolerated procedure well Post-Debridement Measurements and Additional Note: Post-Debridement Measurements/Treatment - Nurse 1 - General Ulcer Assessment Start: 02/02/21 09:48 Freq: Status: Active Protocol: GIORGI.KATIE Activity Type Activity Date Activity User E-Sign Co-Sign Detail Recorded Client Recorded Date Recorded By Document 02/02/21 09:48 [place] [id number] 02/02/21 09:53 OH Document 02/14/21 09:29 [facility] [id number] 02/14/21 09:43 [facility] Document 02/21/21 09:30 [facility] [id number] 02/21/21 09:35 [facility] 02/02/21 02/14/21 02/21/21 09:48 09:29 09:30 - Today's Visit Information Type of service Follow-up Visit Follow-up Visit Follow-up Visit (Physician/CARPENTER APPRENTICE (Physician/CARPENTER APPRENTICE (Physician/CARPENTER APPRENTICE ) ) ) Arrival Mode Ambulatory Ambulatory Ambulatory Transfer Assistance None None Accompanied by Patient Identification Verified (Name & Yes Yes Yes ) Height and Weight Body Mass Index (BMI) 36.0 36.0 36.0 BMI Classification Obese Obese Obese Vital Signs Temperature (97.8 F-99.1 F) 97.0 F L 97.9 F 97.2 F L Temperature Source Temporal Temporal Temporal Pulse Rate (60-100) 95 99 93 Pulse Location Monitor Monitor Monitor Respiratory Rate (12-18) 18 16 Respiratory rate source Observation Observation Oxygen Delivery Method Room Air Room Air Blood Pressure (90/60-120/80) 154/88 H 124/72 H 133/74 H Blood Pressure Mean (mm Hg) 110 89 93 Source Monitor Monitor Monitor Position Sitting Sitting Sitting Blood Pressure Location Left Arm Left Forearm Left Arm History Since Last Visit- (Skip if this is Patient's initial visit) Have you changed medications since your No No No last visit? Any new allergies or adverse reactions No No No Had a fall/change in ADL's that may No No No increase risk of falls Signs or symptoms of abuse and/or No No No neglect since last visit Have you been in the hospital since your No No No last visit? Has dressing in place as prescribed Yes Yes Yes Has compression in place as prescribed Yes Yes Yes Has offloadiing in place as prescribed N/A N/A N/A Experienced any changes in pain level or No No No management Left Footwear Regular Shoe Regular Shoe Regular Shoe Right Footwear Regular Shoe Regular Shoe Regular Shoe Pain Scale: 0-10 Numeric Is Patient Pain Free? Yes Yes Yes WC - Nurse 1 - General Ulcer Measurement Start: 02/02/21 09:48 Freq: Status: Active Protocol: Activity Type Activity Date Activity User E-Sign Co-Sign Detail Recorded Client Recorded Date Recorded By Document 02/02/21 09:48 AK [id number] 02/02/21 09:53 AK Document 02/02/21 10:08 KR [id number] 02/02/21 10:09 KR Document 02/14/21 09:29 [facility] [id number] 02/14/21 09:43 BMF Document 02/21/21 09:30 BM [id number] 02/21/21 09:35 BMF 02/02/21 02/02/21 02/14/21 09:48 10:08 09:29 Wound Center Nurse 1 #1- L GERMAN POST OP -Combined with other wound No -Current Size (cm) - Length 0.1 8.5 8 -Current Size (cm) - Width 0.1 4 4.5 -Current Size (cm) - Depth 0.1 0.2 0.1 -Total Square Cm 0.01 34.0 36.0 -Photo Taken No -Tunneling No -Undermining/Tunneling No -Circular Undermining No -Exudate Amt Medium Medium -Exudate Type Serosanguineous Serosanguineous -Wound Margin Distinct, Distinct, Outline Outline Attached Attached -Granulation Amt Large (67-100%) -Granulation Quality Red -Slough/Fibrin -Necrosis Amt None Present (0 %) -Texture (Mackenzie-wound Skin Appearance) Assessed, Assessed, Scarring Scarring -Moisture (Mackenzie-wound Skin Appearance) No Abnormality Assessed -Color (Mackenzie-wound Skin Appearance) No Abnormality, Assessed Assessed -Temperature (Mackenzie-wound Skin No Abnormality No Abnormality Appearance) (Pt Warm) (Pt Warm) -Tenderness on Palpation (Mackenzie-wound No Yes Skin Appearance) -Ulcer Cleansing Soap and Water Soap and Water -Foul Odor after Cleansing No Yes, Due to Product Use -Anesthetic Used 4% Lidocaine 5% Lidocaine Solution Gel Lower Limb Edema Present Yes Left Calf (cm) 35.5 43.5 Left Ankle (cm) 25.5 26.2 02/21/21 09:30 Wound Center Nurse 1 #1- L GERMAN POST OP -Combined with other wound No -Current Size (cm) - Length 7.8 -Current Size (cm) - Width 3.4 -Current Size (cm) - Depth 0.1 -Total Square Cm 26.52 -Photo Taken No -Tunneling No -Undermining/Tunneling No -Circular Undermining No -Exudate Amt Large -Exudate Type Serosanguineous -Wound Margin Distinct, Outline Attached -Granulation Amt Large (67-100%) -Granulation Quality Red -Slough/Fibrin No -Necrosis Amt None Present (0 %) -Texture (Mackenzie-wound Skin Appearance) Assessed, Scarring -Moisture (Mackenzie-wound Skin Appearance) Assessed,Dry/ Scaly -Color (Mackenzie-wound Skin Appearance) Assessed -Temperature (Mackenzie-wound Skin No Abnormality Appearance) (Pt Warm) -Tenderness on Palpation (Mackenzie-wound No Skin Appearance) -Ulcer Cleansing Soap and Water -Foul Odor after Cleansing No -Anesthetic Used 4% Lidocaine Solution Lower Limb Edema Present Left Calf (cm) Left Ankle (cm) WC - Nurse 2 - General Ulcer CM Notes Start: 02/02/21 09:48 Freq: Status: Active Protocol: Activity Type Activity Date Activity User E-Sign Co-Sign Detail Recorded Client Recorded Date Recorded By Document 02/02/21 10:17 MW [id number] 02/02/21 10:28 MW Edit Result 02/02/21 10:17 MW (1) [id number] 02/07/21 18:06 PL Document 02/07/21 10:03 JF [id number] 02/07/21 10:07 JF Document 02/14/21 09:58 MW [id number] 02/14/21 10:11 MW Document 02/21/21 09:41 JF [id number] 02/21/21 09:51 JF (1) #1- L GERMAN POST OP - Type of Bioengineered Tissue NuShield => Theraskin - NuShield (per sq cm) 39 => - Theraskin (per sq cm) => 39 02/02/21 02/07/21 02/14/21 10:17 10:03 09:58 Wound Center Nurse 2 #1- L GERMAN POST OP -Time 10:25 09:58 -Correct Patient Yes No Yes -Correct Side, Site, Position Yes No Yes -Correct Procedure Yes No Yes -Procedure Performed Yes No Yes -Type of Procedure Debridement Debridement -Clinical Debridement Subcutaneous Subcutaneous -Tissue Removed Subcutaneous Subcutaneous -Post Debridement (cm) - Length 8.7 7.5 -Post Debridement (cm) - Width 4.4 4.7 -Post Debridement (cm) - Depth 0.1 0.1 -Total Square (Post) (cm) 38.28 35.25 -Area of Debridement (cm) - Length 8.7 7.5 -Area of Debridement (cm) - Width 4.4 4.7 -Total Square (Area) (cm) 38.28 35.25 -Tunneling No No No -Undermining/Tunneling No No No -Circular Undermining No No No -Wound/Ulcer Outcome Not Healed Not Healed Not Healed -Ulcer Cleansing Rinsed/ Rinsed/ Irrigated with Irrigated with Saline Saline -Foul Odor after Cleansing No No -Bioengineered Tissue Yes Yes -Type of Bioengineered Tissue Theraskin Theraskin -Expiration Date 05/02/25 05/04/25 -Product Lot Number [id number] -Percent Used 100 100 -Lot number of Saline Used [id number] -Bleeding Controlled with Pressure Pressure -Offloading No No -Treatment Response Procedure Procedure Tolerated Well Tolerated Well -Debridement - Subq, 1st 20sq cm No No No -Apply Skin Sub - 1st 25 sq cm - Legs 1 1 -Apply Skin Sub - each addt'l 25 sq cm - Legs -Theraskin (per sq cm) 39 39 Pain Scale: 0-10 Numeric Is Patient Pain Free? Yes Yes Yes 02/21/21 09:41 Wound Center Nurse 2 #1- L GERMAN POST OP -Time 09:41 -Correct Patient Yes -Correct Side, Site, Position Yes -Correct Procedure Yes -Procedure Performed Yes -Type of Procedure Debridement -Clinical Debridement Subcutaneous -Tissue Removed Subcutaneous -Post Debridement (cm) - Length 8.0 -Post Debridement (cm) - Width 3.8 -Post Debridement (cm) - Depth 0.1 -Total Square (Post) (cm) 30.40 -Area of Debridement (cm) - Length 8.0 -Area of Debridement (cm) - Width 3.8 -Total Square (Area) (cm) 30.40 -Tunneling No -Undermining/Tunneling No -Circular Undermining No -Wound/Ulcer Outcome Not Healed -Ulcer Cleansing Rinsed/ Irrigated with Saline -Foul Odor after Cleansing No -Bioengineered Tissue Yes -Type of Bioengineered Tissue Theraskin -Expiration Date 07/19/24 -Product Lot Number [id number] -Percent Used 100 -Lot number of Saline Used [id number] -Bleeding Controlled with Pressure -Offloading No -Treatment Response Procedure Tolerated Well -Debridement - Subq, 1st 20sq cm No -Apply Skin Sub - 1st 25 sq cm - Legs 1 -Apply Skin Sub - each addt'l 25 sq cm 1 - Legs -Theraskin (per sq cm) 26 Pain Scale: 0-10 Numeric Is Patient Pain Free? Yes - Nurse 3 - General Ulcer D/C NN Start: 02/02/21 09:48 Freq: Status: Active Protocol: Activity Type Activity Date Activity User E-Sign Co-Sign Detail Recorded Client Recorded Date Recorded By Document 02/02/21 10:39 MW [id number] 02/02/21 10:40 MW Document 02/07/21 10:22 DL [id number] 02/07/21 10:23 DL Document 02/14/21 10:23 DL [id number] 02/14/21 10:24 DL Document 02/21/21 10:04 DL [id number] 02/21/21 10:06 DL 02/02/21 02/07/21 02/14/21 10:39 10:22 10:23 Wound Care Nurse 3 #1- L GERMAN POST OP -Ulcer Cleansing Not Cleansed -Foul Odor after Cleansing No No No -Negative Pressure Wound Therapy N/A -Other Dressing Theraskin Theraskin Recheck today only -Primary Dressing Covered/Secured with Dry Gauze & Dry Gauze & Dry Gauze & Roll Gauze, Roll Gauze, Roll Gauze, Secured with Secured with Secured with Tape Tape Tape -Other Covering ABD PAD ABD ABD Left -Lotion applied to leg before No compression wrap -Compression Wrap Phillip Wrap Phillip Wrap -Tubular Bandage Single Layer Single Layer Single Layer -Size of Tubigrip Used Size E Size E Size E -Size E ($) 1 1 1 -Other phillip Treatment Response Procedure Procedure Tolerated Well Tolerated Well Pain Scale: 0-10 Numeric Is Patient Pain Free? Yes Yes Yes Teaching: Wound Center Dressing Your Wound -Person Taught Patient -Teaching Method Discussion, Demonstration -Response to teaching Verbalize understanding WC - Visit Discharge Discharge Condition Stable Stable Stable Ambulatory Status Ambulatory Ambulatory Ambulatory Transportation Private Auto Private Auto Private Auto Accompanied by SELF Medication Reconcilliation completed & No provided to patient/care provider Clinical Summary of Care Provided Yes 02/21/21 10:04 Wound Care Nurse 3 #1- L GERMAN POST OP -Ulcer Cleansing -Foul Odor after Cleansing No -Negative Pressure Wound Therapy -Other Dressing Theraskin -Primary Dressing Covered/Secured with Dry Gauze & Roll Gauze, Secured with Tape -Other Covering ABD Left -Lotion applied to leg before compression wrap -Compression Wrap Phillip Wrap -Tubular Bandage Single Layer -Size of Tubigrip Used Size E -Size E ($) 1 -Other Treatment Response Procedure Tolerated Well Pain Scale: 0-10 Numeric Is Patient Pain Free? Yes Teaching: Wound Center Dressing Your Wound -Person Taught -Teaching Method -Response to teaching WC - Visit Discharge Discharge Condition Stable Ambulatory Status Ambulatory Transportation Private Auto Accompanied by Medication Reconcilliation completed & provided to patient/care provider Clinical Summary of Care Provided Assessment/Plan Assessment/Plan (1) Ulcer of left lower extremity with fat layer exposed: CODE(S): L97.922 - Non-pressure chronic ulcer of unspecified part of left lower leg with fat layer exposed (2) Animal bite: CODE(S): T14.8XXA - Other injury of unspecified body region, initial encounter (3) Lupus: CODE(S): M32.9 - Systemic lupus erythematosus, unspecified (4) History of excision of lesion: CODE(S): Z98.890 - Other specified postprocedural states; Z87.2 - Personal history of diseases of the skin and subcutaneous tissue PLAN: Wound care - She was approved for an advanced skin graft substitute. Theraskin #5 was placed on left leg ulcer today, 100% of the product was used. It was secured with Dermabond and steri-strips and topped with wound veil that was secured with steri-strips. Covered with ABD. Compression is a tubigrip and PHILLIP wrap. Wound culture obtained on 01/03/21 which was positive for MRSA. With all the resistance, she has completed her Linezolid. Operative cultures positive for Enterococcus avium, Enterococcus gallinarum, Turicella otitidis and Bacteroides thetaiotaomicron. Fungal cultures positive for Sara tropicalis. She completed Linezolid and Flagyl. She is on Diflucan daily. CMP drawn on 01/05/21 Total Bili 0.20, AST 12, ALT 23, Alk Phos 72, Albumin 3.6. CMP 01/25/21 Total Bili 0.40, AST 23, ALT 34, Alk Phos 70, Albumin 3.9. Ordered CMP for today. Follow up one week.
[2021-02-28 09:48] VITALS: BP 143/79; PULSE 90; RESP 16; BMI 36.0
--- NOTE | 2021-02-28 11:39 | PCM.WC.PN ---
History of Present Illness Date of Service: 02/28/21 Chief Complaint: Left anterior leg ulcer after being bitten by a pet potbelly pig History of Wound: 71 year old F who was attacked by her pet potbelly pig on 11/08/20 and sustained a complex wound laceration to her left anterior leg. In the ED the wounds were cleansed and suture closed. She was discharged on Cipro and Clindamycin. A week later she saw her PCP because of increasing redness and pain and swelling who started her on daily injections of Ceftriaxone and added Flagyl. There was some improvement but the redness and swelling was persistent. She went to the ED on 11/17/20 for further evaluation. X-ray showed no fracture and no foreign body. WBC was normal at 6.7. Lactate was 1.0. She was admitted and started on Vancomycin and Cefazolin. Surgery 11/19/20 - Surgical preparation left anterior leg with incision and drainage and excisional debridement pig bite wound infection abscess with skin necrosis (96 cm2). Wound care - Theraskin #6 placed today on left leg ulcer. She was placed on Levaquin on 12/29/20 because home health called stating that her mackenzie wound was red and warm. Wound culture obtained on 01/03/21 which was positive for MRSA. With all the resistance, she was started on Linezolid. She had to stop her antidepressants while on this medications. Operative cultures positive for Enterococcus avium, Enterococcus gallinarum, Turicella otitidis and Bacteroides thetaiotaomicron. Fungal cultures positive for Sara tropicalis. She completed Linezolid and Flagyl. She was started on Diflucan daily. CMP drawn on 01/05/21 Total Bili 0.20, AST 12, ALT 23, Alk Phos 72, Albumin 3.6. Today she denies any fevers, chills, nausea or vomiting. She states her appetite is good and she has increased her protein intake. Progress of Wound: Improved. Beefy pink, decreasing in size. Granulation tissue present. Objective Data Objective Data Vital Signs: Vital Signs Temp Pulse Resp BP 97.2 F L 90 16 143/79 H 02/21/21 09:30 02/28/21 09:48 02/28/21 09:48 02/28/21 09:48 Oxygen Delivery Method Room Air Weight: 230 lb Body Mass Index (BMI) 36.0 Charges/Coding Procedures Integumentary 150xxx-152xx: 33772 Skin sub graft trnk/arm/leg Add On Codes: 13860 Skin sub graft t/a/l add-on (x1) Physical Exam Const alert and oriented x3 General Appearance: cooperative HEENT normocephalic Head and Scalp: atraumatic Eyes PERRL Lymph Lymphatic: no lymphedema noted Resp normal respiratory effort Cardio regular rate GI non-tender Palpation: soft Extremity normal capillary refill and no calf tenderness Skin Wound Narrative: Left leg ulcer is beefy pink and smaller in size. Granulation tissue present. Neuro CN's II-XII intact bilaterally Psych Appearance: grossly normal Debridement Note Debridement Note Wound debrided: anterior leg ulcer Laterality: Left Type of Debridement: Excisional debridement Anesthesia Used: 5% Lidocaine Gel Depth: Down to and including healthy tissue and in the subcutaneous layer Percentage of wound debrided: 100 Instrument Used: 7mm curette Tissue Removed: Subcutaneous tissue and slough Severity: Fat Layer Exposed Amount of bleeding with debridement: Mild Bleeding Controlled with: Pressure and Compression and gauze Patient tolerated procedure: Patient tolerated procedure well Post-Debridement Measurements and Additional Note: Post-Debridement Measurements/Treatment - Nurse 1 - General Ulcer Assessment Start: 02/02/21 09:48 Freq: Status: Active Protocol: RUBIA Activity Type Activity Date Activity User E-Sign Co-Sign Detail Recorded Client Recorded Date Recorded By Document 02/02/21 09:48 SD [id number] 02/02/21 09:53 SD Document 02/14/21 09:29 [facility] [id number] 02/14/21 09:43 [facility] Document 02/21/21 09:30 [facility] [id number] 02/21/21 09:35 [facility] Document 02/28/21 09:48 [facility] [id number] 02/28/21 09:57 [facility] 02/02/21 02/14/21 02/21/21 09:48 09:29 09:30 - Today's Visit Information Type of service Follow-up Visit Follow-up Visit Follow-up Visit (Physician/ALTERNATIVE MEDICINE PRACTITIONER (Physician/ALTERNATIVE MEDICINE PRACTITIONER (Physician/ALTERNATIVE MEDICINE PRACTITIONER ) ) ) Arrival Mode Ambulatory Ambulatory Ambulatory Transfer Assistance None None Accompanied by Patient Identification Verified (Name & Yes Yes Yes ) Patient Requires Transmission-Based Precautions Height and Weight Body Mass Index (BMI) 36.0 36.0 36.0 BMI Classification Obese Obese Obese Vital Signs Temperature (97.8 F-99.1 F) 97.0 F L 97.9 F 97.2 F L Temperature Source Temporal Temporal Temporal Pulse Rate (60-100) 95 99 93 Pulse Location Monitor Monitor Monitor Respiratory Rate (12-18) 18 16 Respiratory rate source Observation Observation Oxygen Delivery Method Room Air Room Air Blood Pressure (90/60-120/80) 154/88 H 124/72 H 133/74 H Blood Pressure Mean (mm Hg) 110 89 93 Source Monitor Monitor Monitor Position Sitting Sitting Sitting Blood Pressure Location Left Arm Left Forearm Left Arm History Since Last Visit- (Skip if this is Patient's initial visit) Have you changed medications since your No No No last visit? Any new allergies or adverse reactions No No No Had a fall/change in ADL's that may No No No increase risk of falls Signs or symptoms of abuse and/or No No No neglect since last visit Have you been in the hospital since your No No No last visit? Has dressing in place as prescribed Yes Yes Yes Has compression in place as prescribed Yes Yes Yes Has offloadiing in place as prescribed N/A N/A N/A Experienced any changes in pain level or No No No management Left Footwear Regular Shoe Regular Shoe Regular Shoe Right Footwear Regular Shoe Regular Shoe Regular Shoe Pain Scale: 0-10 Numeric Is Patient Pain Free? Yes Yes Yes 02/28/21 09:48 WC - Today's Visit Information Type of service Follow-up Visit (Physician/ALTERNATIVE MEDICINE PRACTITIONER ) Arrival Mode Ambulatory Transfer Assistance None Accompanied by Patient Identification Verified (Name & Yes ) Patient Requires Transmission-Based No Precautions Height and Weight Body Mass Index (BMI) 36.0 BMI Classification Obese Vital Signs Temperature (97.8 F-99.1 F) Temperature Source Pulse Rate (60-100) 90 Pulse Location Monitor Respiratory Rate (12-18) 16 Respiratory rate source Observation Oxygen Delivery Method Room Air Blood Pressure (90/60-120/80) 143/79 H Blood Pressure Mean (mm Hg) 100 Source Monitor Position Sitting Blood Pressure Location Left Arm History Since Last Visit- (Skip if this is Patient's initial visit) Have you changed medications since your No last visit? Any new allergies or adverse reactions No Had a fall/change in ADL's that may No increase risk of falls Signs or symptoms of abuse and/or No neglect since last visit Have you been in the hospital since your No last visit? Has dressing in place as prescribed Yes Has compression in place as prescribed Yes Has offloadiing in place as prescribed N/A Experienced any changes in pain level or No management Left Footwear Regular Shoe Right Footwear Regular Shoe Pain Scale: 0-10 Numeric Is Patient Pain Free? Yes WC - Nurse 1 - General Ulcer Measurement Start: 02/02/21 09:48 Freq: Status: Active Protocol: Activity Type Activity Date Activity User E-Sign Co-Sign Detail Recorded Client Recorded Date Recorded By Document 02/02/21 09:48 AK [id number] 02/02/21 09:53 AK Document 02/02/21 10:08 KR [id number] 02/02/21 10:09 KR Document 02/14/21 09:29 BMF [id number] 02/14/21 09:43 BMF Document 02/21/21 09:30 BMF [id number] 02/21/21 09:35 BMF Document 02/28/21 09:48 BMF [id number] 02/28/21 09:57 BMF 02/02/21 02/02/21 02/14/21 09:48 10:08 09:29 Wound Center Nurse 1 #1- L GERMAN POST OP -Combined with other wound No -Current Size (cm) - Length 0.1 8.5 8 -Current Size (cm) - Width 0.1 4 4.5 -Current Size (cm) - Depth 0.1 0.2 0.1 -Total Square Cm 0.01 34.0 36.0 -Photo Taken No -Epithelialization -Tunneling No -Undermining/Tunneling No -Circular Undermining No -Exudate Amt Medium Medium -Exudate Type Serosanguineous Serosanguineous -Wound Margin Distinct, Distinct, Outline Outline Attached Attached -Granulation Amt Large (67-100%) -Granulation Quality Red -Slough/Fibrin -Necrosis Amt None Present (0 %) -Necrotic Tissue Type -Texture (Mackenzie-wound Skin Appearance) Assessed, Assessed, Scarring Scarring -Moisture (Mackenzie-wound Skin Appearance) No Abnormality Assessed -Color (Mackenzie-wound Skin Appearance) No Abnormality, Assessed Assessed -Temperature (Mackenzie-wound Skin No Abnormality No Abnormality Appearance) (Pt Warm) (Pt Warm) -Tenderness on Palpation (Mackenzie-wound No Yes Skin Appearance) -Ulcer Cleansing Soap and Water Soap and Water -Foul Odor after Cleansing No Yes, Due to Product Use -Anesthetic Used 4% Lidocaine 5% Lidocaine Solution Gel Lower Limb Edema Present Yes Left Calf (cm) 35.5 43.5 Left Ankle (cm) 25.5 26.2 02/21/21 02/28/21 09:30 09:48 Wound Center Nurse 1 #1- L GERMAN POST OP -Combined with other wound No No -Current Size (cm) - Length 7.8 6.9 -Current Size (cm) - Width 3.4 4.1 -Current Size (cm) - Depth 0.1 0.1 -Total Square Cm 26.52 28.29 -Photo Taken No No -Epithelialization Small 1-33% -Tunneling No No -Undermining/Tunneling No No -Circular Undermining No No -Exudate Amt Large Medium -Exudate Type Serosanguineous Serosanguineous -Wound Margin Distinct, Distinct, Outline Outline Attached Attached -Granulation Amt Large (67-100%) Large (67-100%) -Granulation Quality Red Red -Slough/Fibrin No Yes -Necrosis Amt None Present (0 Small (1-33%) %) -Necrotic Tissue Type Adherent Slough -Texture (Mackenzie-wound Skin Appearance) Assessed, Assessed, Scarring Scarring -Moisture (Mackenzie-wound Skin Appearance) Assessed,Dry/ Assessed Scaly -Color (Mackenzie-wound Skin Appearance) Assessed Assessed -Temperature (Mackenzie-wound Skin No Abnormality No Abnormality Appearance) (Pt Warm) (Pt Warm) -Tenderness on Palpation (Mackenzie-wound No No Skin Appearance) -Ulcer Cleansing Soap and Water Soap and Water -Foul Odor after Cleansing No No -Anesthetic Used 4% Lidocaine 4% Lidocaine Solution Solution Lower Limb Edema Present Left Calf (cm) Left Ankle (cm) WC - Nurse 2 - General Ulcer CM Notes Start: 02/02/21 09:48 Freq: Status: Active Protocol: Activity Type Activity Date Activity User E-Sign Co-Sign Detail Recorded Client Recorded Date Recorded By Document 02/02/21 10:17 MW [id number] 02/02/21 10:28 MW Edit Result 02/02/21 10:17 MW (1) [id number] 02/07/21 18:06 PL Document 02/07/21 10:03 JF [id number] 02/07/21 10:07 JF Document 02/14/21 09:58 MW [id number] 02/14/21 10:11 MW Document 02/21/21 09:41 JF [id number] 02/21/21 09:51 JF Document 02/28/21 10:21 JF [id number] 02/28/21 10:35 JF (1) #1- L GERMAN POST OP - Type of Bioengineered Tissue NuShield => Theraskin - NuShield (per sq cm) 39 => - Theraskin (per sq cm) => 39 02/02/21 02/07/21 02/14/21 10:17 10:03 09:58 Wound Center Nurse 2 #1- L GERMAN POST OP -Time 10:25 09:58 -Correct Patient Yes No Yes -Correct Side, Site, Position Yes No Yes -Correct Procedure Yes No Yes -Procedure Performed Yes No Yes -Type of Procedure Debridement Debridement -Clinical Debridement Subcutaneous Subcutaneous -Tissue Removed Subcutaneous Subcutaneous -Post Debridement (cm) - Length 8.7 7.5 -Post Debridement (cm) - Width 4.4 4.7 -Post Debridement (cm) - Depth 0.1 0.1 -Total Square (Post) (cm) 38.28 35.25 -Area of Debridement (cm) - Length 8.7 7.5 -Area of Debridement (cm) - Width 4.4 4.7 -Total Square (Area) (cm) 38.28 35.25 -Tunneling No No No -Undermining/Tunneling No No No -Circular Undermining No No No -Wound/Ulcer Outcome Not Healed Not Healed Not Healed -Ulcer Cleansing Rinsed/ Rinsed/ Irrigated with Irrigated with Saline Saline -Foul Odor after Cleansing No No -Bioengineered Tissue Yes Yes -Type of Bioengineered Tissue Theraskin Theraskin -Expiration Date 05/02/25 05/04/25 -Product Lot Number [id number] -Percent Used 100 100 -Lot number of Saline Used [id number] -Bleeding Controlled with Pressure Pressure -Offloading No No -Treatment Response Procedure Procedure Tolerated Well Tolerated Well -Debridement - Subq, 1st 20sq cm No No No -Apply Skin Sub - 1st 25 sq cm - Legs 1 1 -Apply Skin Sub - each addt'l 25 sq cm - Legs -Theraskin (per sq cm) 39 39 Pain Scale: 0-10 Numeric Is Patient Pain Free? Yes Yes Yes 02/21/21 02/28/21 09:41 10:21 Wound Center Nurse 2 #1- L GERMAN POST OP -Time 09:41 10:21 -Correct Patient Yes Yes -Correct Side, Site, Position Yes Yes -Correct Procedure Yes Yes -Procedure Performed Yes Yes -Type of Procedure Debridement Debridement -Clinical Debridement Subcutaneous Subcutaneous -Tissue Removed Subcutaneous Subcutaneous -Post Debridement (cm) - Length 8.0 7.3 -Post Debridement (cm) - Width 3.8 4 -Post Debridement (cm) - Depth 0.1 0.1 -Total Square (Post) (cm) 30.40 29.2 -Area of Debridement (cm) - Length 8.0 7.3 -Area of Debridement (cm) - Width 3.8 4 -Total Square (Area) (cm) 30.40 29.2 -Tunneling No No -Undermining/Tunneling No No -Circular Undermining No No -Wound/Ulcer Outcome Not Healed Not Healed -Ulcer Cleansing Rinsed/ Rinsed/ Irrigated with Irrigated with Saline Saline -Foul Odor after Cleansing No No -Bioengineered Tissue Yes Yes -Type of Bioengineered Tissue Theraskin Theraskin -Expiration Date 07/19/24 07/26/24 -Product Lot Number [id number] -Percent Used 100 100 -Lot number of Saline Used [id number] -Bleeding Controlled with Pressure Pressure -Offloading No No -Treatment Response Procedure Procedure Tolerated Well Tolerated Well -Debridement - Subq, 1st 20sq cm No No -Apply Skin Sub - 1st 25 sq cm - Legs 1 1 -Apply Skin Sub - each addt'l 25 sq cm 1 1 - Legs -Theraskin (per sq cm) 26 26 Pain Scale: 0-10 Numeric Is Patient Pain Free? Yes Yes WC - Nurse 3 - General Ulcer D/C NN Start: 02/02/21 09:48 Freq: Status: Active Protocol: Activity Type Activity Date Activity User E-Sign Co-Sign Detail Recorded Client Recorded Date Recorded By Document 02/02/21 10:39 MW [id number] 02/02/21 10:40 MW Document 02/07/21 10:22 DL [id number] 02/07/21 10:23 DL Document 02/14/21 10:23 DL [id number] 02/14/21 10:24 DL Document 02/21/21 10:04 DL [id number] 02/21/21 10:06 DL Document 02/28/21 10:49 DL [id number] 02/28/21 10:50 DL 02/02/21 02/07/21 02/14/21 10:39 10:22 10:23 Wound Care Nurse 3 #1- L GERMAN POST OP -Ulcer Cleansing Not Cleansed -Foul Odor after Cleansing No No No -Negative Pressure Wound Therapy N/A -Other Dressing Theraskin Theraskin Recheck today only -Primary Dressing Covered/Secured with Dry Gauze & Dry Gauze & Dry Gauze & Roll Gauze, Roll Gauze, Roll Gauze, Secured with Secured with Secured with Tape Tape Tape -Other Covering ABD PAD ABD ABD Left -Lotion applied to leg before No compression wrap -Compression Wrap Phillip Wrap Phillip Wrap -Tubular Bandage Single Layer Single Layer Single Layer -Size of Tubigrip Used Size E Size E Size E -Size E ($) 1 1 1 -Other phillip Treatment Response Procedure Procedure Tolerated Well Tolerated Well Pain Scale: 0-10 Numeric Is Patient Pain Free? Yes Yes Yes Teaching: Wound Center Dressing Your Wound -Person Taught Patient -Teaching Method Discussion, Demonstration -Response to teaching Verbalize understanding WC - Visit Discharge Discharge Condition Stable Stable Stable Ambulatory Status Ambulatory Ambulatory Ambulatory Transportation Private Auto Private Auto Private Auto Accompanied by SELF Medication Reconcilliation completed & No provided to patient/care provider Clinical Summary of Care Provided Yes 02/21/21 02/28/21 10:04 10:49 Wound Care Nurse 3 #1- L GERMAN POST OP -Ulcer Cleansing -Foul Odor after Cleansing No No -Negative Pressure Wound Therapy -Other Dressing Theraskin -Primary Dressing Covered/Secured with Dry Gauze & Dry Gauze & Roll Gauze, Roll Gauze, Secured with Secured with Tape Tape -Other Covering ABD ABD Left -Lotion applied to leg before compression wrap -Compression Wrap Phillip Wrap -Tubular Bandage Single Layer Single Layer -Size of Tubigrip Used Size E Size E -Size E ($) 1 1 -Other Treatment Response Procedure Procedure Tolerated Well Tolerated Well Pain Scale: 0-10 Numeric Is Patient Pain Free? Yes Yes Teaching: Wound Center Dressing Your Wound -Person Taught -Teaching Method -Response to teaching WC - Visit Discharge Discharge Condition Stable Stable Ambulatory Status Ambulatory Ambulatory Transportation Private Auto Private Auto Accompanied by Medication Reconcilliation completed & provided to patient/care provider Clinical Summary of Care Provided Assessment/Plan Assessment/Plan (1) Ulcer of left lower extremity with fat layer exposed: CODE(S): L97.922 - Non-pressure chronic ulcer of unspecified part of left lower leg with fat layer exposed (2) Edema: CODE(S): R60.9 - Edema, unspecified QUALIFIERS: Edema type: unspecified Qualified Code(s): R60.9 - Edema, unspecified (3) Lupus: CODE(S): M32.9 - Systemic lupus erythematosus, unspecified (4) History of excision of lesion: CODE(S): Z98.890 - Other specified postprocedural states; Z87.2 - Personal history of diseases of the skin and subcutaneous tissue PLAN: Wound care - She was approved for an advanced skin graft substitute. Theraskin #6 was placed on left leg ulcer today, 100% of the product was used. It was secured with Dermabond and steri-strips and topped with wound veil that was secured with steri-strips. Covered with ABD. Compression is a tubigrip and PHILLIP wrap. Can change the outer dressing above the wound veil as needed. Wound culture obtained on 01/03/21 which was positive for MRSA. With all the resistance, she has completed her Linezolid. Operative cultures positive for Enterococcus avium, Enterococcus gallinarum, Turicella otitidis and Bacteroides thetaiotaomicron. Fungal cultures positive for Sara tropicalis. She completed Linezolid and Flagyl. She is on Diflucan daily, which she should be finished with soon. CMP drawn on 01/05/21 Total Bili 0.20, AST 12, ALT 23, Alk Phos 72, Albumin 3.6. CMP 01/25/21 Total Bili 0.40, AST 23, ALT 34, Alk Phos 70, Albumin 3.9. CMP 02/23/21 Total Bili 0.30, AST 10, ALT 26, Alk Phos 71, Albumin 3.9. Follow up one week.
== END 2021-03-04 23:59 ==
LOC: WC 10:00
PROVIDERS: PCP Family Medicine Geriatric Medicine; Visit Provider Nurse Practitioner Family
DX: L97.822 Non-pressure chronic ulcer of other part of left lower leg with fat layer exposed (principal); S81.812S Laceration without foreign body, left lower leg, sequela; W55.41 Bitten by pig; M32.9 Systemic lupus erythematosus, unspecified; I10 Essential (primary) hypertension; E78.5 Hyperlipidemia, unspecified; G47.33 Obstructive sleep apnea (adult) (pediatric); M19.90 Unspecified osteoarthritis, unspecified site; E66.01 Morbid (severe) obesity due to excess calories; Z79.899 Other long term (current) drug therapy; Z68.36 Body mass index [BMI] 36.0-36.9, adult; Z86.14 Personal history of Methicillin resistant Staphylococcus aureus infection
CPT/HCPCS: 15271; 15272; 99213; Q4121; Q4160; G0463

== ENCOUNTER 2021-03-17 15:42 | Outpatient (CLI) | payer MEDICARE, OTHER, SELFPAY ==
--- NOTE | 2021-03-17 16:20 | RAD_ITS ---
STUDY: X-RAY - LUMBOSACRAL SPINE REASON FOR EXAM: Female, 71 years old. LOW BACK PAIN TECHNIQUE: 6 view(s) of the lumbosacral spine were obtained. COMPARISON: 07/09/2018 FINDINGS: Normal lumbar lordosis. Mild levoscoliosis centered at L3. 2 mm of retrolisthesis of L1 on L2, 2 mm retrolisthesis of L2 on L3, 2 mm retrolisthesis of L3 on L4, and 5 mm of anterolisthesis of L4 on L5 which are unchanged on the flexion and extension views. There is multilevel endplate spondylosis of the lumbar vertebrae. There is multi-level degenerative disc disease with multi-level disc space narrowing. Facet hypertrophy in the lower lumbar spine. Normal bilateral sacral ala, sacroiliac joints, and visualized sacrum. Normal visualized soft tissue structures. RAD/L/S Spine w Bend Min 6 Vw IMPRESSION: Levoscoliosis with degenerative disc disease and subluxation at multiple levels. Electronically Signed: Alejandro Thomas MD at 16:45 EST Tel , Service support ,
[2021-03-17 16:32] LABS: Absolute Lymphocyte Count 2.01 X10^3/uL (0.83-4.51); Absolute Neutrophil Count 4.2 X10^3/uL (2.0-7.7); Basophil# 0.03 X10^3/uL; Basophil% 0.4 % (0-1); Eosinophil# 0.15 X10^3/uL; Eosinophils% 2.1 % (0-5); Hematocrit 39.6 % (37-47); Hemoglobin 13.3 g/dL (12.0-15.0); Lymphocyte # 2.01 X10^3/ul (0.83-4.51); Lymphocyte % 28.8 % (19-41); Mean Corp Hgb Conc 33.6 g/dL (32-36); Mean Corpuscular Hgb 31.1 pg (27.0-32.0); Mean Corpuscular Volume 92.7 fL (81-99); Mean Platelet Vol. 9.8 fl (6.2-12.0); Monocyte# 0.61 X10^3/uL; Monocyte% 8.7 % (0-10); NRBC Flagged by Analyzer 0 % (0-5); Neutrophil # 4.16 X10^3/uL (2.7-7.7); Neutrophil % 59.6 % (47-70); Platelet Count 383 K/mm3 (150-450); RBC Distribution Width CV 12.9 % (11.6-14.6); RBC Distribution Width SD 43.8 fl (35.1-43.9); Red Blood Count 4.27 M/mm3 (4.2-5.4)
[2021-03-17 17:06] LABS: ALB/GLOB Ratio 1.1 RATIO (0.9-2.4); AST(SGOT) 16 U/L (15-37); Alanine Aminotransfer ALT/SGPT 33 U/L (13-56); Alkaline Phosphatase 67 U/L (45-117); Anion Gap 8 (5-15); BUN 19 mg/dL (7-18); BUN/Creat Ratio 27.4 RATIO (10-20); CPK Total, Creatine Kinase 106 U/L (26-192); Calcium,Total 8.8 mg/dL (8.5-10.1); Chloride 102 mmol/L (98-107); Creatinine, Serum 0.69 mg/dL (0.55-1.02); EST Glomerular Filtration Rate 89 mL/min (>60); Est Glom Filt Rate - Afr Amer 107 mL/min (>60); Globulin 3.5 g/dL (2.2-4.2); Glucose 98 mg/dL (74-106); Potassium 3.2 mmol/L (3.5-5.1); Protein, Total 7.5 g/dL (6.4-8.2); Sodium Level 141 mmol/L (136-145); Troponin-I HS 9 pg/mL (3.0-54.0)
[2021-03-19 16:20] LABS: Myoglobin, Serum 31 ng/mL (25-58)
== END 2021-03-17 23:59 | disposition short-term general hospital (02) ==
PROVIDERS: PCP Family Medicine Geriatric Medicine; Referring Provider Family Medicine Geriatric Medicine; Visit Provider Family Medicine Geriatric Medicine
DX: M54.50 Low back pain, unspecified (principal); I10 Essential (primary) hypertension
CPT/HCPCS: 36415; 72114; 80053; 82550; 83874; 84484; 85025

== ENCOUNTER 2021-03-23 08:47 | Outpatient (CLI) | payer MEDICARE, OTHER, SELFPAY | END 2021-03-23 23:59 | disposition short-term general hospital (02) | LOC: PSN 08:48 | PROVIDERS: PCP Family Medicine Geriatric Medicine; Referring Provider Family Medicine Geriatric Medicine; Visit Provider Family Medicine Geriatric Medicine | DX: R68.83 Chills (without fever) (principal) | CPT/HCPCS: 87635; 87804; 87807; C9803; U0003; U0005 ==

== ENCOUNTER 2021-03-31 11:00 | Outpatient (RCR) | payer MEDICARE, OTHER, SELFPAY ==
[2021-03-05 00:14] VITALS: BP 143/79; PULSE 90; RESP 16; TEMP 36.2; BMI 36.0
[2021-03-07 09:51] VITALS: BP 150/79; PULSE 86; RESP 18; TEMP 36.4; BMI 36.0
--- NOTE | 2021-03-07 13:05 | PN.PCM_ITS ---
History of Present Illness Date of Service: 03/07/21 Chief Complaint: Left anterior leg ulcer after being bitten by a pet potbelly pig History of Wound: 71 year old F who was attacked by her pet potbelly pig on 11/08/20 and sustained a complex wound laceration to her left anterior leg. In the ED the wounds were cleansed and suture closed. She was discharged on Cipro and Clindamycin. A week later she saw her PCP because of increasing redness and pain and swelling who started her on daily injections of Ceftriaxone and added Flagyl. There was some improvement but the redness and swelling was persistent. She went to the ED on 11/17/20 for further evaluation. X-ray showed no fracture and no foreign body. WBC was normal at 6.7. Lactate was 1.0. She was admitted and started on Vancomycin and Cefazolin. Surgery 11/19/20 - Surgical preparation left anterior leg with incision and drainage and excisional debridement pig bite wound infection abscess with skin necrosis (96 cm2). Wound care - Theraskin #7 placed today on left leg ulcer. She was placed on Levaquin on 12/29/20 because home health called stating that her mackenzie wound was red and warm. Wound culture obtained on 01/03/21 which was positive for MRSA. With all the resistance, she was started on Linezolid. She had to stop her antidepressants while on this medications. Operative cultures positive for Enterococcus avium, Enterococcus gallinarum, Turicella otitidis and Bacteroides thetaiotaomicron. Fungal cultures positive f or Sara tropicalis. She completed Linezolid and Flagyl. She was started on Diflucan daily. CMP drawn on 01/05/21 Total Bili 0.20, AST 12, ALT 23, Alk Phos 72, Albumin 3.6. Today she denies any fevers, chills, nausea or vomiting. She states her appetite is good and she has increased her protein intake. Progress of Wound: Improved. Objective Data Objective Data Vital Signs: Vital Signs Temp Pulse Resp BP 97.6 F L 86 18 150/79 H 03/07/21 09:51 03/07/21 09:51 03/07/21 09:51 03/07/21 09:51 Weight: 230 lb Body Mass Index (BMI) 36.0 Charges/Coding Procedures Integumentary 150xxx-152xx: 67757 Skin sub graft trnk/arm/leg Add On Codes: 35837 Skin sub graft t/a/l add-on (x1) Physical Exam Const alert and oriented x3 General Appearance: cooperative HEENT normocephalic Head and Scalp: atraumatic Eyes PERRL Resp normal respiratory effort Cardio regular rate Extremity normal capillary refill Extremity Narrative: +1 edema lower legs and feet. Skin Wound Narrative: Left leg ulcer is beefy pink and smaller in size. Neuro CN's II-XII intact bilaterally Psych Appearance: grossly normal Debridement Note Debridement Note Wound debrided: leg ulcer Laterality: Left Type of Debridement: Excisional debridement Anesthesia Used: 5% Lidocaine Gel Depth: Down to and including healthy tissue and in the subcutaneous layer Percentage of wound debrided: 100 Instrument Used: 7mm curette Tissue Removed: Subcutaneous tissue and slough Severity: Fat Layer Exposed Amount of bleeding with debridement: Mild Bleeding Controlled with: Pressure and Compression and gauze Patient tolerated procedure: Patient tolerated procedure well Post-Debridement Measurements and Additional Note: Post-Debridement Measurements/Treatment - Nurse 1 - General Ulcer Assessment Start: 03/07/21 09:51 Freq: Status: Active Protocol: RUBIA Activity Type Activity Date Activity User E-Sign Co-Sign Detail Recorded Client Recorded Date Recorded By Document 03/07/21 09:51 DL [id number] 03/07/21 09:57 DL 03/07/21 09:51 - Today's Visit Information Type of service Follow-up Visit (Physician/ADMINISTRATIVE SERVICES DIRECTOR ) Arrival Mode Ambulatory Transfer Assistance None Patient Identification Verified (Name & Yes ) Patient Requires Transmission-Based No Precautions Height and Weight Body Mass Index (BMI) 36.0 BMI Classification Obese Vital Signs Temperature (97.8 F-99.1 F) 97.6 F L Temperature Source Temporal Pulse Rate (60-100) 86 Pulse Location Monitor Respiratory Rate (12-18) 18 Respiratory rate source Observation Blood Pressure (90/60-120/80) 150/79 H Blood Pressure Mean (mm Hg) 102 Source Monitor History Since Last Visit- (Skip if this is Patient's initial visit) Have you changed medications since your No last visit? Any new allergies or adverse reactions No Had a fall/change in ADL's that may No increase risk of falls Signs or symptoms of abuse and/or No neglect since last visit Have you been in the hospital since your No last visit? Has dressing in place as prescribed Yes Has compression in place as prescribed Yes Has offloadiing in place as prescribed N/A Experienced any changes in pain level or No management Pain Scale: 0-10 Numeric Is Patient Pain Free? Yes - Nurse 1 - General Ulcer Measurement Start: 03/07/21 09:51 Freq: Status: Active Protocol: Activity Type Activity Date Activity User E-Sign Co-Sign Detail Recorded Client Recorded Date Recorded By Document 03/07/21 09:51 DL [id number] 03/07/21 09:57 DL 03/07/21 09:51 Wound Center Nurse 1 #1- L GERMAN POST OP -Current Size (cm) - Length 6.9 -Current Size (cm) - Width 4 -Current Size (cm) - Depth 0.1 -Total Square Cm 27.6 -Photo Taken No -Exudate Amt Medium -Exudate Type Serosanguineous -Wound Margin Distinct, Outline Attached -Granulation Amt Large (67-100%) -Granulation Quality Red -Necrosis Amt Medium (34-66%) -Necrotic Tissue Type Adherent Slough -Structure Exposed N/A -Texture (Mackenzie-wound Skin Appearance) Scarring -Moisture (Mackenzie-wound Skin Appearance) No Abnormality -Color (Mackenzie-wound Skin Appearance) No Abnormality -Temperature (Mackenzie-wound Skin No Abnormality Appearance) (Pt Warm) -Tenderness on Palpation (Mackenzie-wound No Skin Appearance) -Ulcer Cleansing Soap and Water -Foul Odor after Cleansing No -Anesthetic Used 4% Lidocaine Solution Left Calf (cm) 40.5 Left Ankle (cm) 26.2 - Nurse 2 - General Ulcer CM Notes Start: 03/07/21 09:51 Freq: Status: Active Protocol: Activity Type Activity Date Activity User E-Sign Co-Sign Detail Recorded Client Recorded Date Recorded By Document 03/07/21 10:18 [id number] 03/07/21 10:27 SHAQ 03/07/21 10:18 Wound Center Nurse 2 #1- L GERMAN POST OP -Time 10:18 -Correct Patient Yes -Correct Side, Site, Position Yes -Correct Procedure Yes -Procedure Performed Yes -Type of Procedure Debridement -Clinical Debridement Subcutaneous -Tissue Removed Subcutaneous -Post Debridement (cm) - Length 7.0 -Post Debridement (cm) - Width 3.7 -Post Debridement (cm) - Depth 0.1 -Total Square (Post) (cm) 25.90 -Area of Debridement (cm) - Length 7.0 -Area of Debridement (cm) - Width 3.7 -Total Square (Area) (cm) 25.90 -Tunneling No -Undermining/Tunneling No -Circular Undermining No -Wound/Ulcer Outcome Not Healed -Ulcer Cleansing Rinsed/ Irrigated with Saline -Foul Odor after Cleansing No -Bioengineered Tissue Yes -Type of Bioengineered Tissue Theraskin -Expiration Date 07/26/24 -Product Lot Number [id number] -Percent Used 100 -Lot number of Saline Used [id number] -Bleeding Controlled with Pressure -Offloading No -Treatment Response Procedure Tolerated Well -Debridement - Subq, 1st 20sq cm No -Apply Skin Sub - 1st 25 sq cm - Legs 1 -Apply Skin Sub - each addt'l 25 sq cm 1 - Legs -Theraskin (per sq cm) 26 Pain Scale: 0-10 Numeric Is Patient Pain Free? Yes - Nurse 3 - General Ulcer D/C NN Start: 03/07/21 09:51 Freq: Status: Active Protocol: Activity Type Activity Date Activity User E-Sign Co-Sign Detail Recorded Client Recorded Date Recorded By Document 03/07/21 10:43 DL [id number] 03/07/21 10:47 DL 03/07/21 10:43 Wound Care Nurse 3 #1- L GERMAN POST OP -Ulcer Cleansing Rinsed/ Irrigated with Saline -Foul Odor after Cleansing No -Other Dressing Theraskin -Primary Dressing Covered/Secured with Dry Gauze & Roll Gauze, Secured with Tape Treatment Response Procedure Tolerated Well Pain Scale: 0-10 Numeric Is Patient Pain Free? Yes - Visit Discharge Discharge Condition Stable Ambulatory Status Ambulatory Transportation Private Auto Assessment/Plan Assessment/Plan (1) Ulcer of left lower extremity with fat layer exposed: CODE(S): L97.922 - Non-pressure chronic ulcer of unspecified part of left lower leg with fat layer exposed (2) History of excision of lesion: CODE(S): Z98.890 - Other specified postprocedural states; Z87.2 - Personal history of diseases of the skin and subcutaneous tissue (3) Lupus: CODE(S): M32.9 - Systemic lupus erythematosus, unspecified (4) Edema of both lower legs: CODE(S): R60.0 - Localized edema PLAN: Wound care - She was approved for an advanced skin graft substitute. Theraskin #7 was placed on left leg ulcer today, 100% of the product was used. It was secured with Dermabond and steri-strips and topped with wound veil that was secured with steri-strips. Covered with ABD. Compression is a tubigrip and YAHAIRA wrap. Can change the outer dressing above the wound veil as needed. Wound culture obtained on 01/03/21 which was positive for MRSA. With all the resistance, she has completed her Linezolid. Operative cultures positive for Enterococcus avium, Enterococcus gallinarum, Turicella otitidis and Bacteroides thetaiotaomicron. Fungal cultures positive for Sara tropicalis. She completed Linezolid and Flagyl and Diflucan daily. Because of her history of Lupus she may have delayed wound healing. CMP drawn on 01/05/21 Total Bili 0.20, AST 12, ALT 23, Alk Phos 72, Albumin 3.6. CMP 01/25/21 Total Bili 0.40, AST 23, ALT 34, Alk Phos 70, Albumin 3.9. CMP 02/23/21 Total Bili 0.30, AST 10, ALT 26, Alk Phos 71, Albumin 3.9. Follow up one week.
[2021-03-14 09:32] VITALS: BP 138/77; PULSE 115; RESP 16; TEMP 37; BMI 36.0
--- NOTE | 2021-03-14 13:58 | PN.PCM_ITS ---
History of Present Illness Date of Service: 03/14/21 Chief Complaint: Left anterior leg ulcer after being bitten by a pet potbelly pig History of Wound: 71 year old F who was attacked by her pet potbelly pig on 11/08/20 and sustained a complex wound laceration to her left anterior leg. In the ED the wounds were cleansed and suture closed. She was discharged on Cipro and Clindamycin. A week later she saw her PCP because of increasing redness and pain and swelling who started her on daily injections of Ceftriaxone and added Flagyl. There was some improvement but the redness and swelling was persistent. She went to the ED on 11/17/20 for further evaluation. X-ray showed no fracture and no foreign body. WBC was normal at 6.7. Lactate was 1.0. She was admitted and started on Vancomycin and Cefazolin. Surgery 11/19/20 - Surgical preparation left anterior leg with incision and drainage and excisional debridement pig bite wound infection abscess with skin necrosis (96 cm2). Wound care - Theraskin #8 placed today on left leg ulcer. She was placed on Levaquin on 12/29/20 because home health called stating that her mackenzie wound was red and warm. Wound culture obtained on 01/03/21 which was positive for MRSA. With all the resistance, she was started on Linezolid. She had to stop her antidepressants while on this medications. Operative cultures positive for Enterococcus avium, Enterococcus gallinarum, Turicella otitidis and Bacteroides thetaiotaomicron. Fungal cultures positive f or Sara tropicalis. She completed Linezolid and Flagyl. She was started on Diflucan daily. CMP drawn on 01/05/21 Total Bili 0.20, AST 12, ALT 23, Alk Phos 72, Albumin 3.6. Today she denies any fevers, chills, nausea or vomiting. She states her appetite is good and she has increased her protein intake. Progress of Wound: Improved. Objective Data Objective Data Vital Signs: Vital Signs Temp Pulse Resp BP 98.6 F 115 H 16 138/77 H 03/14/21 09:32 03/14/21 09:32 03/14/21 09:32 03/14/21 09:32 Oxygen Delivery Method Room Air Weight: 230 lb Body Mass Index (BMI) 36.0 Physical Exam Const alert and oriented x3 General Appearance: cooperative HEENT normocephalic Resp normal respiratory effort Cardio regular rate GI non-tender Palpation: soft Extremity normal capillary refill Skin Wound Narrative: Left leg ulcer is beefy pink and smaller in size. Neuro CN's II-XII intact bilaterally Psych Appearance: grossly normal and well kempt Debridement Note Debridement Note Wound debrided: leg ulcer Laterality: Left Type of Debridement: Excisional debridement Depth: Down to and including healthy tissue and in the subcutaneous layer Percentage of wound debrided: 100 Instrument Used: 7mm curette Tissue Removed: Subcutaneous tissue and slough Amount of bleeding with debridement: Mild Bleeding Controlled with: Pressure and Compression and gauze Patient tolerated procedure: Patient tolerated procedure well Post-Debridement Measurements and Additional Note: Post-Debridement Measurements/Treatment - Nurse 1 - General Ulcer Assessment Start: 03/07/21 09:51 Freq: Status: Active Protocol: RUBIA Activity Type Activity Date Activity User E-Sign Co-Sign Detail Recorded Client Recorded Date Recorded By Document 03/07/21 09:51 DL [id number] 03/07/21 09:57 DL Document 03/14/21 09:32 [facility] [id number] 03/14/21 09:38 BM 03/07/21 03/14/21 09:51 09:32 - Today's Visit Information Type of service Follow-up Visit Follow-up Visit (Physician/DIRECTOR OF RESEARCH (Physician/DIRECTOR OF RESEARCH ) ) Arrival Mode Ambulatory Ambulatory Transfer Assistance None None Accompanied by Patient Identification Verified (Name & Yes Yes ) Patient Requires Transmission-Based No No Precautions Height and Weight Body Mass Index (BMI) 36.0 36.0 BMI Classification Obese Obese Vital Signs Temperature (97.8 F-99.1 F) 97.6 F L 98.6 F Temperature Source Temporal Temporal Pulse Rate (60-100) 86 115 H Pulse Location Monitor Monitor Respiratory Rate (12-18) 18 16 Respiratory rate source Observation Observation Oxygen Delivery Method Room Air Blood Pressure (90/60-120/80) 150/79 H 138/77 H Blood Pressure Mean (mm Hg) 102 97 Source Monitor Monitor Position Sitting Blood Pressure Location Left Arm History Since Last Visit- (Skip if this is Patient's initial visit) Have you changed medications since your No No last visit? Any new allergies or adverse reactions No No Had a fall/change in ADL's that may No No increase risk of falls Signs or symptoms of abuse and/or No No neglect since last visit Have you been in the hospital since your No No last visit? Has dressing in place as prescribed Yes Yes Has compression in place as prescribed Yes Yes Has offloadiing in place as prescribed N/A N/A Experienced any changes in pain level or No No management Left Footwear Regular Shoe Right Footwear Regular Shoe Pain Scale: 0-10 Numeric Is Patient Pain Free? Yes Yes WC - Nurse 1 - General Ulcer Measurement Start: 03/07/21 09:51 Freq: Status: Active Protocol: Activity Type Activity Date Activity User E-Sign Co-Sign Detail Recorded Client Recorded Date Recorded By Document 03/07/21 09:51 DL [id number] 03/07/21 09:57 DL Document 03/14/21 09:32 [facility] [id number] 03/14/21 09:38 BMF 03/07/21 03/14/21 09:51 09:32 Wound Center Nurse 1 #1- L GERMAN POST OP -Combined with other wound No -Current Size (cm) - Length 6.9 6.1 -Current Size (cm) - Width 4 3 -Current Size (cm) - Depth 0.1 0.1 -Total Square Cm 27.6 18.3 -Photo Taken No No -Epithelialization Small 1-33% -Tunneling No -Undermining/Tunneling No -Circular Undermining No -Exudate Amt Medium Large -Exudate Type Serosanguineous Serosanguineous -Wound Margin Distinct, Distinct, Outline Outline Attached Attached -Granulation Amt Large (67-100%) -Granulation Quality Red -Necrosis Amt Medium (34-66%) -Necrotic Tissue Type Adherent Slough -Structure Exposed N/A -Texture (Mackenzie-wound Skin Appearance) Scarring Assessed -Moisture (Mackenzie-wound Skin Appearance) No Abnormality Assessed,Dry/ Scaly -Color (Mackenzie-wound Skin Appearance) No Abnormality Assessed -Temperature (Mackenzie-wound Skin No Abnormality No Abnormality Appearance) (Pt Warm) (Pt Warm) -Tenderness on Palpation (Mackenzie-wound No No Skin Appearance) -Ulcer Cleansing Soap and Water Soap and Water -Foul Odor after Cleansing No No -Anesthetic Used 4% Lidocaine 4% Lidocaine Solution Solution Lower Limb Edema Present Yes Left Calf (cm) 40.5 40 Left Ankle (cm) 26.2 25.6 WC - Nurse 2 - General Ulcer CM Notes Start: 03/07/21 09:51 Freq: Status: Active Protocol: Activity Type Activity Date Activity User E-Sign Co-Sign Detail Recorded Client Recorded Date Recorded By Document 03/07/21 10:18 [id number] 03/07/21 10:27 Document 03/14/21 09:56 [id number] 03/14/21 10:02 03/07/21 03/14/21 10:18 09:56 Wound Center Nurse 2 #1- L GERMAN POST OP -Time 10:18 10:00 -Correct Patient Yes Yes -Correct Side, Site, Position Yes Yes -Correct Procedure Yes Yes -Procedure Performed Yes Yes -Type of Procedure Debridement Debridement -Clinical Debridement Subcutaneous Subcutaneous -Tissue Removed Subcutaneous Subcutaneous -Post Debridement (cm) - Length 7.0 6.3 -Post Debridement (cm) - Width 3.7 3.8 -Post Debridement (cm) - Depth 0.1 0.1 -Total Square (Post) (cm) 25.90 23.94 -Area of Debridement (cm) - Length 7.0 6.3 -Area of Debridement (cm) - Width 3.7 3.8 -Total Square (Area) (cm) 25.90 23.94 -Tunneling No No -Undermining/Tunneling No No -Circular Undermining No No -Wound/Ulcer Outcome Not Healed Not Healed -Ulcer Cleansing Rinsed/ Rinsed/ Irrigated with Irrigated with Saline Saline -Foul Odor after Cleansing No No -Bioengineered Tissue Yes Yes -Type of Bioengineered Tissue Theraskin Theraskin -Expiration Date 07/26/24 08/09/24 -Product Lot Number [id number] -Percent Used 100 100 -Lot number of Saline Used [id number] -Bleeding Controlled with Pressure Pressure -Offloading No No -Treatment Response Procedure Procedure Tolerated Well Tolerated Well -Debridement - Subq, 1st 20sq cm No No -Apply Skin Sub - 1st 25 sq cm - Legs 1 1 -Apply Skin Sub - each addt'l 25 sq cm 1 - Legs -Theraskin (per sq cm) 26 26 Pain Scale: 0-10 Numeric Is Patient Pain Free? Yes Yes WC - Nurse 3 - General Ulcer D/C NN Start: 03/07/21 09:51 Freq: Status: Active Protocol: Activity Type Activity Date Activity User E-Sign Co-Sign Detail Recorded Client Recorded Date Recorded By Document 03/07/21 10:43 DL [id number] 03/07/21 10:47 DL Document 03/14/21 10:18 [facility] [id number] 03/14/21 10:19 BMF 03/07/21 03/14/21 10:43 10:18 Wound Care Nurse 3 #1- L GERMAN POST OP -Ulcer Cleansing Rinsed/ Irrigated with Saline -Foul Odor after Cleansing No -Other Dressing Theraskin THERASKIN -Primary Dressing Covered/Secured with Dry Gauze & Secured with Roll Gauze, Tape,Other Secured with Tape -Other Covering ABD Left -Tubular Bandage Single Layer -Size of Tubigrip Used Size E -Size E ($) 1 Treatment Response Procedure Procedure Tolerated Well Tolerated Well Pain Scale: 0-10 Numeric Is Patient Pain Free? Yes Yes WC - Visit Discharge Discharge Condition Stable Stable Ambulatory Status Ambulatory Ambulatory Transportation Private Auto Private Auto Assessment/Plan Assessment/Plan (1) Ulcer of left lower extremity with fat layer exposed: CODE(S): L97.922 - Non-pressure chronic ulcer of unspecified part of left lower leg with fat layer exposed (2) Edema of both lower legs: CODE(S): R60.0 - Localized edema (3) Animal bite: CODE(S): T14.8XXA - Other injury of unspecified body region, initial encounter (4) Lupus: CODE(S): M32.9 - Systemic lupus erythematosus, unspecified PLAN: Wound care - She was approved for an advanced skin graft substitute. Theraskin #8 was placed on left leg ulcer today, 100% of the product was used. It was secured with Dermabond and steri-strips and topped with wound veil that was secured with steri-strips. Covered with ABD. Compression is a tubigrip and YAHAIRA wrap. Can change the outer dressing above the wound veil as needed. Wound culture obtained on 01/03/21 which was positive for MRSA. With all the resistance, she has completed her Linezolid. Operative cultures positive for Enterococcus avium, Enterococcus gallinarum, Turicella otitidis and Bacteroides thetaiotaomicron. Fungal cultures positive for Sara tropicalis. She completed Linezolid and Flagyl and Diflucan daily. Because of her history of Lupus she may have delayed wound healing. CMP drawn on 01/05/21 Total Bili 0.20, AST 12, ALT 23, Alk Phos 72, Albumin 3.6. CMP 01/25/21 Total Bili 0.40, AST 23, ALT 34, Alk Phos 70, Albumin 3.9. CMP 02/23/21 Total Bili 0.30, AST 10, ALT 26, Alk Phos 71, Albumin 3.9. Follow up one week.
[2021-03-31 11:00] VITALS: TEMP 37.4; BMI 36.0
--- NOTE | 2021-03-31 12:21 | PN.PCM_ITS ---
History of Present Illness Date of Service: 03/31/21 Chief Complaint: Left anterior leg ulcer after being bitten by a pet potbelly pig History of Wound: 71 year old F who was attacked by her pet potbelly pig on 11/08/20 and sustained a complex wound laceration to her left anterior leg. In the ED the wounds were cleansed and suture closed. She was discharged on Cipro and Clindamycin. A week later she saw her PCP because of increasing redness and pain and swelling who started her on daily injections of Ceftriaxone and added Flagyl. There was some improvement but the redness and swelling was persistent. She went to the ED on 11/17/20 for further evaluation. X-ray showed no fracture and no foreign body. WBC was normal at 6.7. Lactate was 1.0. She was admitted and started on Vancomycin and Cefazolin. Surgery 11/19/20 - Surgical preparation left anterior leg with incision and drainage and excisional debridement pig bite wound infection abscess with skin necrosis (96 cm2). Wound care - Theraskin #8 placed today on left leg ulcer. She was placed on Levaquin on 12/29/20 because home health called stating that her mackenzie wound was red and warm. Wound culture obtained on 01/03/21 which was positive for MRSA. With all the resistance, she was started on Linezolid. She had to stop her antidepressants while on this medications. Operative cultures positive for Enterococcus avium, Enterococcus gallinarum, Turicella otitidis and Bacteroides thetaiotaomicron. Fungal cultures positive f or Sara tropicalis. She completed Linezolid and Flagyl. She was started on Diflucan daily. CMP drawn on 01/05/21 Total Bili 0.20, AST 12, ALT 23, Alk Phos 72, Albumin 3.6. Today she denies any fevers, chills, nausea or vomiting. She states her appetite is good and she has increased her protein intake. Progress of Wound: Improved. Subjective Subjective This is a 71-year-old female who presents to the wound care center for follow-up of left anterior lower leg ulceration. She states that the site is getting smaller and she feels that it is improving nicely. She denies any nausea, vomiting, fever, chills, or shortness of breath Objective Data Objective Data Vital Signs: Vital Signs Temp Pulse Resp BP 99.3 F H 115 H 16 138/77 H 03/31/21 11:00 03/14/21 09:32 03/14/21 09:32 03/14/21 09:32 Oxygen Delivery Method Room Air Weight: 104.326 kg Body Mass Index (BMI) 36.0 Physical Exam Const alert, oriented x3 and no apparent distress General Appearance: cooperative and comfortable HEENT normocephalic Eyes General Eye: normal appearance of both eyes Neck General: normal visual inspection Lymph Lymphatic: no lymphadenopathy noted and no lymphedema noted Resp normal respiratory effort Cardio regular rate and regular rhythm Extremity Peripheral Pulses: Yes posterior tibial pulses present and dorsalis pedis pulses present Skin no rashes or lesions noted Skin Narrative: Skin is intact with some left lower extremity edema. Ulceration site anterior left lower extremity is noted with no localized erythema. Surrounding skin is atrophic and thin with scarring secondary to healing. Wound Narrative: Left lower extremity anterior ulceration demonstrates 100% granular tissue bed with no localized erythema, no purulent drainage, no malodor, no proximal streaking or redness, or other localized signs of infection. Intact margins. Surrounding skin is atrophic and thin with scarring secondary to healing. Neuro Motor Exam: strength 5/5 throughout and clonus absent Debridement Note Debridement Note Wound debrided: Left lower extremity anterior ulceration Type of Debridement: Excisional debridement Anesthesia Used: 4% Lidocaine Solution Depth: in the subcutaneous layer Percentage of wound debrided: 100 Instrument Used: 5mm curette Tissue Removed: Fibrous, devitalized subcutaneous, biofilm, slough Severity: Fat Layer Exposed Amount of bleeding with debridement: Mild Bleeding Controlled with: Pressure Patient tolerated procedure: Patient tolerated procedure well Post-Debridement Measurements and Additional Note: Post-Debridement Measurements/Treatment WC - Nurse 1 - General Ulcer Assessment Start: 03/07/21 09:51 Freq: Status: Active Protocol: RUBIA Activity Type Activity Date Activity User E-Sign Co-Sign Detail Recorded Client Recorded Date Recorded By Document 03/07/21 09:51 DL [id number] 03/07/21 09:57 DL Document 03/14/21 09:32 [facility] [id number] 03/14/21 09:38 BMF Document 03/31/21 11:00 [id number] 03/31/21 11:25 03/07/21 03/14/21 03/31/21 09:51 09:32 11:00 WC - Today's Visit Information Type of service Follow-up Visit Follow-up Visit 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 (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/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 (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/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 ) ) ) Arrival Mode Ambulatory Ambulatory Ambulatory Transfer Assistance None None Accompanied by Patient Identification Verified (Name & Yes Yes Yes ) Patient Requires Transmission-Based No No No Precautions Height and Weight Body Mass Index (BMI) 36.0 36.0 36.0 BMI Classification Obese Obese Obese Vital Signs Temperature (97.8 F-99.1 F) 97.6 F L 98.6 F 99.3 F H Temperature Source Temporal Temporal Temporal Pulse Rate (60-100) 86 115 H Pulse Location Monitor Monitor Respiratory Rate (12-18) 18 16 Respiratory rate source Observation Observation Oxygen Delivery Method Room Air Blood Pressure (90/60-120/80) 150/79 H 138/77 H Blood Pressure Mean (mm Hg) 102 97 Source Monitor Monitor Position Sitting Blood Pressure Location Left Arm History Since Last Visit- (Skip if this is Patient's initial visit) Have you changed medications since your No No No last visit? Any new allergies or adverse reactions No No No Had a fall/change in ADL's that may No No No increase risk of falls Signs or symptoms of abuse and/or No No No neglect since last visit Have you been in the hospital since your No No No last visit? Has dressing in place as prescribed Yes Yes Yes Has compression in place as prescribed Yes Yes Yes Has offloadiing in place as prescribed N/A N/A N/A Experienced any changes in pain level or No No No management Left Footwear Regular Shoe Regular Shoe Right Footwear Regular Shoe Regular Shoe Pain Scale: 0-10 Numeric Is Patient Pain Free? Yes Yes Yes - Nurse 1 - General Ulcer Measurement Start: 03/07/21 09:51 Freq: Status: Active Protocol: Activity Type Activity Date Activity User E-Sign Co-Sign Detail Recorded Client Recorded Date Recorded By Document 03/07/21 09:51 DL [id number] 03/07/21 09:57 DL Document 03/14/21 09:32 [facility] [id number] 03/14/21 09:38 BMF Document 03/31/21 11:00 [id number] 03/31/21 11:25 03/07/21 03/14/21 03/31/21 09:51 09:32 11:00 Wound Center Nurse 1 #1- L GERMAN POST OP -Combined with other wound No No -Current Size (cm) - Length 6.9 6.1 5.4 -Current Size (cm) - Width 4 3 2.4 -Current Size (cm) - Depth 0.1 0.1 0.1 -Total Square Cm 27.6 18.3 12.96 -Photo Taken No No No -Epithelialization Small 1-33% Medium 34-66% -Tunneling No No -Undermining/Tunneling No No -Circular Undermining No No -Exudate Amt Medium Large Medium -Exudate Type Serosanguineous Serosanguineous Serosanguineous -Wound Margin Distinct, Distinct, Flat & Intact Outline Outline Attached Attached -Granulation Amt Large (67-100%) Large (67-100%) -Granulation Quality Red Red -Slough/Fibrin Yes -Necrosis Amt Medium (34-66%) Small (1-33%) -Necrotic Tissue Type Adherent Slough Adherent Slough -Structure Exposed N/A N/A -Texture (Mackenzie-wound Skin Appearance) Scarring Assessed Assessed, Localized Edema -Moisture (Mackenzie-wound Skin Appearance) No Abnormality Assessed,Dry/ Assessed,Dry/ Scaly Scaly -Color (Mackenzie-wound Skin Appearance) No Abnormality Assessed Assessed -Temperature (Mackenzie-wound Skin No Abnormality No Abnormality No Abnormality Appearance) (Pt Warm) (Pt Warm) (Pt Warm) -Tenderness on Palpation (Mackenzie-wound No No No Skin Appearance) -Ulcer Cleansing Soap and Water Soap and Water Wound Cleanser -Foul Odor after Cleansing No No No -Anesthetic Used 4% Lidocaine 4% Lidocaine 4% Lidocaine Solution Solution Solution Lower Limb Edema Present Yes Yes Left Calf (cm) 40.5 40 42.0 Left Ankle (cm) 26.2 25.6 25.4 WC - Nurse 2 - General Ulcer CM Notes Start: 03/07/21 09:51 Freq: Status: Active Protocol: Activity Type Activity Date Activity User E-Sign Co-Sign Detail Recorded Client Recorded Date Recorded By Document 03/07/21 10:18 SHAQ [id number] 03/07/21 10:27 Document 03/14/21 09:56 [id number] 03/14/21 10:02 JF 03/07/21 03/14/21 10:18 09:56 Wound Center Nurse 2 #1- L GERMAN POST OP -Time 10:18 10:00 -Correct Patient Yes Yes -Correct Side, Site, Position Yes Yes -Correct Procedure Yes Yes -Procedure Performed Yes Yes -Type of Procedure Debridement Debridement -Clinical Debridement Subcutaneous Subcutaneous -Tissue Removed Subcutaneous Subcutaneous -Post Debridement (cm) - Length 7.0 6.3 -Post Debridement (cm) - Width 3.7 3.8 -Post Debridement (cm) - Depth 0.1 0.1 -Total Square (Post) (cm) 25.90 23.94 -Area of Debridement (cm) - Length 7.0 6.3 -Area of Debridement (cm) - Width 3.7 3.8 -Total Square (Area) (cm) 25.90 23.94 -Tunneling No No -Undermining/Tunneling No No -Circular Undermining No No -Wound/Ulcer Outcome Not Healed Not Healed -Ulcer Cleansing Rinsed/ Rinsed/ Irrigated with Irrigated with Saline Saline -Foul Odor after Cleansing No No -Bioengineered Tissue Yes Yes -Type of Bioengineered Tissue Theraskin Theraskin -Expiration Date 07/26/24 08/09/24 -Product Lot Number [id number] -Percent Used 100 100 -Lot number of Saline Used [id number] -Bleeding Controlled with Pressure Pressure -Offloading No No -Treatment Response Procedure Procedure Tolerated Well Tolerated Well -Debridement - Subq, 1st 20sq cm No No -Apply Skin Sub - 1st 25 sq cm - Legs 1 1 -Apply Skin Sub - each addt'l 25 sq cm 1 - Legs -Theraskin (per sq cm) 26 26 Pain Scale: 0-10 Numeric Is Patient Pain Free? Yes Yes WC - Nurse 3 - General Ulcer D/C NN Start: 03/07/21 09:51 Freq: Status: Active Protocol: Activity Type Activity Date Activity User E-Sign Co-Sign Detail Recorded Client Recorded Date Recorded By Document 03/07/21 10:43 DL [id number] 03/07/21 10:47 DL Document 03/14/21 10:18 BMF [id number] 03/14/21 10:19 [facility] 03/07/21 03/14/21 10:43 10:18 Wound Care Nurse 3 #1- L GERMAN POST OP -Ulcer Cleansing Rinsed/ Irrigated with Saline -Foul Odor after Cleansing No -Other Dressing Theraskin THERASKIN -Primary Dressing Covered/Secured with Dry Gauze & Secured with Roll Gauze, Tape,Other Secured with Tape -Other Covering ABD Left -Tubular Bandage Single Layer -Size of Tubigrip Used Size E -Size E ($) 1 Treatment Response Procedure Procedure Tolerated Well Tolerated Well Pain Scale: 0-10 Numeric Is Patient Pain Free? Yes Yes WC - Visit Discharge Discharge Condition Stable Stable Ambulatory Status Ambulatory Ambulatory Transportation Private Auto Private Auto Assessment/Plan Assessment/Plan (1) Edema of both lower legs: CODE(S): R60.0 - Localized edema (2) Ulcer of left lower extremity with fat layer exposed: CODE(S): L97.922 - Non-pressure chronic ulcer of unspecified part of left lower leg with fat layer exposed (3) Lupus: CODE(S): M32.9 - Systemic lupus erythematosus, unspecified (4) Thyroid disease: CODE(S): E07.9 - Disorder of thyroid, unspecified (5) Open wound of left lower leg due to animal bite: CODE(S): S81.852A - Open bite, left lower leg, initial encounter (6) Hyperlipidemia: CODE(S): E78.5 - Hyperlipidemia, unspecified QUALIFIERS: Hyperlipidemia type: unspecified Qualified Code(s): E78.5 - Hyperlipidemia, unspecified PLAN: This is a 71-year-old female who presents to the wound care clinic for follow-up of left lower extremity anterior ulceration complicated by edema, thyroid disease, lupus, hyperlipidemia. Patient states they have been applying TheraSkin to the ulceration site and she feels the site is getting smaller and healing well. Site was inspected and a debridement performed with a #5 curette removing nonviable tissue and grafting product along with any slough or biofilm buildup. Site was cleansed with normal sterile saline. A new TheraSkin graft measuring 4 cm x 6.5 cm (#26 TS) was applied to the left lower extremity anterior ulceration site. Site was secured with a wound veil, wound glue, and Steri-Strips. Site dressed with ABD pad Kerlix. Patient instructed to change the outer dressing as needed. She is also instructed not to change the inner TheraSkin site and instructed not to get wet. Tubigrip compression was applied in a single layer to the left lower extremity and she was instructed to elevate the legs above the level of the heart for 30 minutes for 3-4 times a day. I reviewed and discussed his case today. Debridement was performed today as noted in the clinical panel to all of the ulcer sites. The following work up and care recommendations were made: Dressing: TheraSkin, wound veil, Dermabond, Steri-Strips, ABD pad, Kerlix, Tubigrip dressing Wash: Soap and water Tissue growth optimization: Offload: Elevation of the legs to offloading control edema Vascular: Palpable pedal pulses Edema: Tubigrip dressing Infection: No localized signs of infection Pain: Patient may take deaj-pyi-jtiikdi Tylenol extra strength for pain Host factors: Increase protein intake I answered all the patient's questions. To return to the wound healing center in 1 week with Anai Davila NP or call sooner if the patient has any questions or concerns. The problems addressed require a low medical decision making level which includes two or more minor problems, a stable chronic illness, or an acute uncomplicated illness or injury. The medical decision making level is low. There is noted low risk of morbidity after considering this treatment plan and diagnostic data. Note: [employer] speech recognition email marketer software was used to create portions of this document. Sound-alike and misspelled words, as well as other email marketer errors may be contained in the documentation.
== END 2021-04-04 23:59 ==
LOC: WC 11:00
PROVIDERS: PCP Family Medicine Geriatric Medicine; Visit Provider Nurse Practitioner Family
DX: L97.822 Non-pressure chronic ulcer of other part of left lower leg with fat layer exposed (principal); M32.9 Systemic lupus erythematosus, unspecified; E78.5 Hyperlipidemia, unspecified; E07.9 Disorder of thyroid, unspecified; S81.852S Open bite, left lower leg, sequela; R60.0 Localized edema; W55.41 Bitten by pig
CPT/HCPCS: 15271; 15272; Q4121

== ENCOUNTER 2021-04-29 11:16 | Outpatient (CLI) | payer MEDICARE, OTHER, SELFPAY ==
--- NOTE | 2021-04-29 11:26 | ECHOD_ITS ---
Reason For Study: DYSPNEA/SOB Procedure This was a 2D Doppler, Color Flow transthoracic echocardiogram. The study was technically difficult. Exam performed in department. Left Ventricle Normal LV size. Left ventricular systolic function is normal. The estimated ejection fraction is 60 %. Diastolic function is indeterminate. No regional wall motion abnormalities noted. Right Ventricle Normal RV size. Normal systolic function. Atria Normal left atrium. Normal right atrium. No doppler evidence for ASD. Mitral Valve There is no mitral annular calcification. Normal mitral valve. Mild (1+) mitral valve insufficiency. Tricuspid Valve Normal tricuspid valve. Mild tricuspid valve insufficiency. Right ventricular systolic pressure estimated to be 35 mmHg. Aortic Valve Trisinus/trileaflet aortic valve. The aortic valve is not well visualized. Pulmonic Valve The pulmonic valve is not well visualized. Great Vessels Normal sized aortic root. Pericardium/Pleural No pericardial effusion. MMode/2D Measurements & Calculations LVIDd: 5.4 cm IVSd: 0.99 cm Ao root diam: 3.5 cm LVIDs: 4.0 cm LVPWd: 0.97 cm RVDd: 2.7 cm FS: 25.6 % LAV(MOD-bp): 39.0 ml LA A4 area: 14.8 cm2 LA dimension(2D): 3.6 cm LAV(MOD-bp) Indexed: 18.0 ml/m2 LAV(MOD-sp2): 37.5 ml LAV(MOD-sp4): 37.1 ml RA A4 area: 12.9 cm2 Time Measurements MV dec time: 0.21 sec Doppler Measurements & Calculations MV E max osei: 72.4 cm/sec Lat Peak E' Osei: 6.8 cm/sec Med Peak E' Osei: 5.8 cm/sec MV A max osei: 94.4 cm/sec E/E' lat: 10.6 E/E' med: 12.5 MV E/A: 0.77 Ao V2 max: 124.3 cm/sec LV V1 max: 98.3 cm/sec PA V2 max: 78.8 cm/sec Ao max P.2 mmHg LV V1 max P.9 mmHg TR max osei: 283.4 cm/sec TR max P.1 mmHg ECHO/Echo Complete Interpretation Summary The study was technically difficult. Left ventricular systolic function is normal. The estimated ejection fraction is 60 %. Mild (1+) mitral valve insufficiency. Mild tricuspid valve insufficiency. Right ventricular systolic pressure estimated to be 35 mmHg. Diastolic function is indeterminate. Ordering Physician: Conrad Arias Referring Physician: Parish Plascencia Chi Performed By: Kya Berg, JEY, RVT
== END 2021-04-29 23:59 | disposition home or self-care (01) ==
LOC: CVS 11:17
PROVIDERS: PCP Family Medicine Geriatric Medicine; Referring Provider Internal Medicine Cardiovascular Disease; Visit Provider Internal Medicine Cardiovascular Disease
DX: I27.20 Pulmonary hypertension, unspecified (principal); R00.2 Palpitations
CPT/HCPCS: 93225; 93226; 93306

== ENCOUNTER 2021-05-02 09:30 | Outpatient (RCR) | payer MEDICARE, OTHER, SELFPAY ==
[2021-04-05 00:19] VITALS: BP 138/77; PULSE 115; RESP 16; TEMP 37.4; BMI 36.0
[2021-04-11 09:43] VITALS: PULSE 76; TEMP 36.4; BMI 36.0
--- NOTE | 2021-04-11 13:25 | PN.PCM_ITS ---
History of Present Illness Date of Service: 04/11/21 Chief Complaint: Left anterior leg ulcer after being bitten by a pet potbelly pig History of Wound: 71 year old F who was attacked by her pet potbelly pig on 11/08/20 and sustained a complex wound laceration to her left anterior leg. In the ED the wounds were cleansed and suture closed. She was discharged on Cipro and Clindamycin. A week later she saw her PCP because of increasing redness and pain and swelling who started her on daily injections of Ceftriaxone and added Flagyl. There was some improvement but the redness and swelling was persistent. She went to the ED on 11/17/20 for further evaluation. X-ray showed no fracture and no foreign body. WBC was normal at 6.7. Lactate was 1.0. She was admitted and started on Vancomycin and Cefazolin. Surgery 11/19/20 - Surgical preparation left anterior leg with incision and drainage and excisional debridement pig bite wound infection abscess with skin necrosis (96 cm2). Wound care - She had 9 applications of Theraskin. She now will place Alicia and cover with ABD daily. Single layer tubigrip for compression. She was placed on Levaquin on 12/29/20 because home health called stating that her wilmer wound was red and warm. Wound culture obtained on 01/03/21 which was positive for MRSA. With all the resistance, she was started on Linezolid. She had to stop her antidepressants while on this medications. Operative cultures positive for Enterococcus avium, Enterococcus gallinarum, Turicella otitidis and Bacteroides thetaiotaomicron. Fungal cultures positive for Sara tropicalis. She completed Linezolid and Flagyl. She was started on Diflucan daily. CMP drawn on 01/05/21 Total Bili 0.20, AST 12, ALT 23, Alk Phos 72, Albumin 3.6. Today she denies any fevers, chills, nausea or vomiting. She states her appetite is good and she has increased her protein intake. Progress of Wound: Left leg ulcer is beefy pink, smaller in size. Granulation tissue present. Objective Data Objective Data Vital Signs: Vital Signs Temp Pulse Resp BP 97.6 F L 76 16 138/77 H 04/11/21 09:43 04/11/21 09:43 04/05/21 00:19 04/05/21 00:19 Weight: 230 lb Body Mass Index (BMI) 36.0 Charges/Coding Procedures Integumentary 111xxx-113xx: 24708 Blanche subq tissue 20 sq cm/< Physical Exam Const alert and oriented x3 General Appearance: cooperative HEENT normocephalic Head and Scalp: atraumatic Resp normal respiratory effort Cardio regular rate Extremity normal capillary refill and no calf tenderness Extremity Narrative: +1 edema Skin Wound Narrative: Left leg ulcer is beefy pink, smaller in size. Granulation tissue present. Neuro CN's II-XII intact bilaterally Psych Appearance: grossly normal Thought Process: normal thought process Debridement Note Debridement Note Wound debrided: Leg ulcer Laterality: Left Type of Debridement: Excisional debridement Anesthesia Used: 5% Lidocaine Gel Depth: Down to and including healthy tissue and in the subcutaneous layer Percentage of wound debrided: 100 Instrument Used: 5mm curette Tissue Removed: Subcutaneous tissue and slough Severity: Fat Layer Exposed Amount of bleeding with debridement: Mild Bleeding Controlled with: Compression and gauze Patient tolerated procedure: Patient tolerated procedure well Post-Debridement Measurements and Additional Note: Post-Debridement Measurements/Treatment - Nurse 1 - General Ulcer Assessment Start: 04/11/21 09:31 Freq: Status: Active Protocol: RUBIA Activity Type Activity Date Activity User E-Sign Co-Sign Detail Recorded Client Recorded Date Recorded By Document 04/11/21 09:43 SEBASTIAN [id number] 04/11/21 10:46 SEBASTIAN 04/11/21 09:43 - Today's Visit Information Type of service 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 Any new allergies or adverse reactions No Had a fall/change in ADL's that may No increase risk of falls Signs or symptoms of abuse and/or No neglect since last visit Have you been in the hospital since your No last visit? Has dressing in place as prescribed Yes Has compression in place as prescribed N/A Has offloadiing in place as prescribed N/A Experienced any changes in pain level or No management Left Footwear Regular Shoe Right Footwear Regular Shoe Pain Scale: 0-10 Numeric Is Patient Pain Free? Yes GIORGI - Nurse 1 - General Ulcer Measurement Start: 04/11/21 09:31 Freq: Status: Active Protocol: Activity Type Activity Date Activity User E-Sign Co-Sign Detail Recorded Client Recorded Date Recorded By Document 04/11/21 09:43 SEBASTIAN [id number] 04/11/21 10:46 SEBASTIAN 04/11/21 09:43 Wound Center Nurse 1 #1- L GERMAN POST OP -Combined with other wound No -Circular Undermining No -Change in Wound Grade/Stage No -Exudate Amt None Present -Wound Margin Distinct, Outline Attached -Granulation Amt None Present (0 %) -Slough/Fibrin No -Ulcer Cleansing Soap and Water -Anesthetic Used 4% Lidocaine Solution -Wound Comment(s) Couldn't measure. The dressing was stuck to the wound. I soaked in lidocain 4% GIORGI - Nurse 2 - General Ulcer CM Notes Start: 04/11/21 09:31 Freq: Status: Active Protocol: Activity Type Activity Date Activity User E-Sign Co-Sign Detail Recorded Client Recorded Date Recorded By Document 04/11/21 10:00 SHAQ [id number] 04/11/21 10:05 SHAQ 04/11/21 10:00 Wound Center Nurse 2 -Time 10:01 -Correct Patient Yes -Correct Side, Site, Position Yes -Correct Procedure Yes -Procedure Performed Yes -Type of Procedure Debridement -Clinical Debridement Subcutaneous -Tissue Removed Subcutaneous -Post Debridement (cm) - Length 5 -Post Debridement (cm) - Width 2.5 -Post Debridement (cm) - Depth 0.1 -Total Square (Post) (cm) 12.5 -Area of Debridement (cm) - Length 5 -Area of Debridement (cm) - Width 2.5 -Total Square (Area) (cm) 12.5 -Tunneling No -Undermining/Tunneling No -Circular Undermining No -Wound/Ulcer Outcome Not Healed -Ulcer Cleansing Rinsed/ Irrigated with Saline -Foul Odor after Cleansing No -Bioengineered Tissue No -Bleeding Controlled with Pressure -Offloading No -Treatment Response Procedure Tolerated Well -Debridement - Subq, 1st 20sq cm Yes Pain Scale: 0-10 Numeric Is Patient Pain Free? Yes - Nurse 3 - General Ulcer D/C NN Start: 04/11/21 09:31 Freq: Status: Active Protocol: Activity Type Activity Date Activity User E-Sign Co-Sign Detail Recorded Client Recorded Date Recorded By Document 04/11/21 10:20 DL [id number] 04/11/21 10:23 DL 04/11/21 10:20 Wound Care Nurse 3 #1- L GERMAN POST OP -Ulcer Cleansing Rinsed/ Irrigated with Saline -Foul Odor after Cleansing No -Primary Dressing Applied Promogran Alicia Matter -Primary Dressing Covered/Secured with Dry Gauze & Roll Gauze, Secured with Tape -Promogran Alicia Matter 1 Left -Tubular Bandage Single Layer -Size of Tubigrip Used Size E -Size E ($) 1 Treatment Response Procedure Tolerated Well Pain Scale: 0-10 Numeric Is Patient Pain Free? Yes WC - Visit Discharge Discharge Condition Stable Ambulatory Status Ambulatory Transportation Private Auto Accompanied by Assessment/Plan Assessment/Plan (1) Ulcer of left lower extremity with fat layer exposed: CODE(S): L97.922 - Non-pressure chronic ulcer of unspecified part of left lower leg with fat layer exposed (2) Edema of both lower legs: CODE(S): R60.0 - Localized edema (3) Lupus: CODE(S): M32.9 - Systemic lupus erythematosus, unspecified PLAN: Wound care - She completed 9 applications of Theraskin. Will now apply Alicia covered with ABD daily. Compression is a single layer tubigrip. Wound culture obtained on 01/03/21 which was positive for MRSA. With all the resistance, she has completed her Linezolid. Operative cultures positive for Enterococcus avium, Enterococcus gallinarum, Turicella otitidis and Bacteroides thetaiotaomicron. Fungal cultures positive for Sara tropicalis. She completed Linezolid and Flagyl and Diflucan daily. Because of her history of Lupus she may have delayed wound healing. Follow up one week.
[2021-04-18 09:37] VITALS: BP 186/81; PULSE 81; RESP 16; TEMP 36.5; BMI 36.0
--- NOTE | 2021-04-18 11:02 | PCM.WC.PN ---
History of Present Illness Date of Service: 04/18/21 Chief Complaint: Left anterior leg ulcer after being bitten by a pet potbelly pig History of Wound: 71 year old F who was attacked by her pet potbelly pig on 11/08/20 and sustained a complex wound laceration to her left anterior leg. In the ED the wounds were cleansed and suture closed. She was discharged on Cipro and Clindamycin. A week later she saw her PCP because of increasing redness and pain and swelling who started her on daily injections of Ceftriaxone and added Flagyl. There was some improvement but the redness and swelling was persistent. She went to the ED on 11/17/20 for further evaluation. X-ray showed no fracture and no foreign body. WBC was normal at 6.7. Lactate was 1.0. She was admitted and started on Vancomycin and Cefazolin. Surgery 11/19/20 - Surgical preparation left anterior leg with incision and drainage and excisional debridement pig bite wound infection abscess with skin necrosis (96 cm2). Wound care - She had 9 applications of Theraskin. She now will place Alicia and cover with ABD or gauze daily. Double layer tubigrip for compression. She was placed on Levaquin on 12/29/20 because home health called stating that her mackenzie wound was red and warm. Wound culture obtained on 01/03/21 which was positive for MRSA. With all the resistance, she was started on Linezolid. She had to stop her antidepressants while on this medications. Operative cultures positive for Enterococcus avium, Enterococcus gallinarum, Turicella otitidis and Bacteroides thetaiotaomicron. Fungal cultures positive for Sara tropicalis. She completed Linezolid and Flagyl. She was started on Diflucan daily. CMP drawn on 01/05/21 Total Bili 0.20, AST 12, ALT 23, Alk Phos 72, Albumin 3.6. Today she denies any fevers, chills, nausea or vomiting. She states her appetite is good and she has increased her protein intake. Progress of Wound: Left leg ulcer is beefy pink, smaller in size. Granulation tissue present. Objective Data Objective Data Vital Signs: Vital Signs Temp Pulse Resp BP 97.7 F L 81 16 186/81 H 04/18/21 09:37 04/18/21 09:37 04/18/21 09:37 04/18/21 09:37 Oxygen Delivery Method Room Air Weight: 230 lb Body Mass Index (BMI) 36.0 Charges/Coding Procedures Integumentary 111xxx-113xx: 69020 Blanche subq tissue 20 sq cm/< Physical Exam Const alert and oriented x3 General Appearance: cooperative HEENT normocephalic Resp normal respiratory effort Cardio regular rate Extremity normal capillary refill Extremity Narrative: +1 nonpitting edema bilateral lower extremities Skin Wound Narrative: Left leg ulcer is beefy pink, smaller in size. Granulation tissue present. Neuro CN's II-XII intact bilaterally Psych Appearance: grossly normal Debridement Note Debridement Note Wound debrided: Lower leg ulcer Laterality: Left Type of Debridement: Excisional debridement Anesthesia Used: 5% Lidocaine Gel Depth: Down to and including healthy tissue and in the subcutaneous layer Instrument Used: 5mm curette Tissue Removed: Subcutaneous tissue and slough Severity: Fat Layer Exposed Amount of bleeding with debridement: Mild Bleeding Controlled with: Pressure and Compression and gauze Patient tolerated procedure: Patient tolerated procedure well Post-Debridement Measurements and Additional Note: Post-Debridement Measurements/Treatment - Nurse 1 - General Ulcer Assessment Start: 04/11/21 09:31 Freq: Status: Active Protocol: RUBIA Activity Type Activity Date Activity User E-Sign Co-Sign Detail Recorded Client Recorded Date Recorded By Document 04/11/21 09:43 MI [id number] 04/11/21 10:46 MI Document 04/18/21 09:37 [facility] [id number] 04/18/21 09:44 [facility] 04/11/21 04/18/21 09:43 09:37 - Today's Visit Information Type of service Follow-up Visit Follow-up Visit (Physician/DEVELOPER ANALYST (Physician/DEVELOPER ANALYST ) ) Arrival Mode Ambulatory Ambulatory Transfer Assistance None Accompanied by Patient Identification Verified (Name & Yes Yes ) Patient Requires Transmission-Based No Precautions Safety Precautions NA Height and Weight Body Mass Index (BMI) 36.0 36.0 BMI Classification Obese Obese Vital Signs Temperature (97.8 F-99.1 F) 97.6 F L 97.7 F L Temperature Source Temporal Temporal Pulse Rate (60-100) 76 81 Pulse Location Monitor Respiratory Rate (12-18) 16 Respiratory rate source Observation Oxygen Delivery Method Room Air Blood Pressure (90/60-120/80) 186/81 H Blood Pressure Mean (mm Hg) 116 Source Monitor Position Sitting Blood Pressure Location Left Arm Comment 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 Any new allergies or adverse reactions No No Had a fall/change in ADL's that may No No increase risk of falls Signs or symptoms of abuse and/or No No neglect since last visit Have you been in the hospital since your No No last visit? Has dressing in place as prescribed Yes Yes Has compression in place as prescribed N/A Yes Has offloadiing in place as prescribed N/A N/A Experienced any changes in pain level or No No management Left Footwear Regular Shoe Regular Shoe Right Footwear Regular Shoe Regular Shoe Pain Scale: 0-10 Numeric Is Patient Pain Free? Yes Yes WC - Nurse 1 - General Ulcer Measurement Start: 04/11/21 09:31 Freq: Status: Active Protocol: Activity Type Activity Date Activity User E-Sign Co-Sign Detail Recorded Client Recorded Date Recorded By Document 04/11/21 09:43 MI [id number] 04/11/21 10:46 AK Document 04/18/21 09:37 [facility] [id number] 04/18/21 09:44 [facility] 04/11/21 04/18/21 09:43 09:37 Wound Center Nurse 1 #1- L GERMAN POST OP -Combined with other wound No No -Current Size (cm) - Length 5.4 -Current Size (cm) - Width 2.7 -Current Size (cm) - Depth 0.1 -Total Square Cm 14.58 -Photo Taken No -Epithelialization Small 1-33% -Tunneling No -Undermining/Tunneling No -Circular Undermining No No -Change in Wound Grade/Stage No -Exudate Amt None Present Medium -Exudate Type Serosanguineous -Wound Margin Distinct, Distinct, Outline Outline Attached Attached -Granulation Amt None Present (0 Large (67-100%) %) -Granulation Quality [place] -Slough/Fibrin No Yes -Necrosis Amt Small (1-33%) -Necrotic Tissue Type Adherent Slough -Texture (Mackenzie-wound Skin Appearance) Assessed, Scarring -Moisture (Mackenzie-wound Skin Appearance) Assessed,Dry/ Scaly -Color (Mackenzie-wound Skin Appearance) Assessed -Temperature (Mackenzie-wound Skin No Abnormality Appearance) (Pt Warm) -Tenderness on Palpation (Mackenzie-wound No Skin Appearance) -Ulcer Cleansing Soap and Water Rinsed/ Irrigated with Saline -Foul Odor after Cleansing Yes, Due to Product Use -Anesthetic Used 4% Lidocaine 4% Lidocaine Solution Solution -Wound Comment(s) Couldn't measure. The dressing was stuck to the wound. I soaked in lidocain 4% Lower Limb Edema Present Yes Left Calf (cm) 40.2 Left Ankle (cm) 26.5 WC - Nurse 2 - General Ulcer CM Notes Start: 04/11/21 09:31 Freq: Status: Active Protocol: Activity Type Activity Date Activity User E-Sign Co-Sign Detail Recorded Client Recorded Date Recorded By Document 04/11/21 10:00 [id number] 04/11/21 10:05 Document 04/18/21 09:58 [id number] 04/18/21 10:00 04/11/21 04/18/21 10:00 09:58 Wound Center Nurse 2 #1- L GERMAN POST OP -Time 10:01 09:59 -Correct Patient Yes Yes -Correct Side, Site, Position Yes Yes -Correct Procedure Yes Yes -Procedure Performed Yes Yes -Type of Procedure Debridement Debridement -Clinical Debridement Subcutaneous Subcutaneous -Tissue Removed Subcutaneous Subcutaneous -Post Debridement (cm) - Length 5 5.0 -Post Debridement (cm) - Width 2.5 2.6 -Post Debridement (cm) - Depth 0.1 0.1 -Total Square (Post) (cm) 12.5 13.00 -Area of Debridement (cm) - Length 5 5 -Area of Debridement (cm) - Width 2.5 2.6 -Total Square (Area) (cm) 12.5 13.0 -Tunneling No No -Undermining/Tunneling No No -Circular Undermining No No -Wound/Ulcer Outcome Not Healed Not Healed -Ulcer Cleansing Rinsed/ Rinsed/ Irrigated with Irrigated with Saline Saline -Foul Odor after Cleansing No No -Bioengineered Tissue No No -Bleeding Controlled with Pressure Pressure -Offloading No No -Treatment Response Procedure Procedure Tolerated Well Tolerated Well -Debridement - Subq, 1st 20sq cm Yes Yes Pain Scale: 0-10 Numeric Is Patient Pain Free? Yes Yes - Nurse 3 - General Ulcer D/C NN Start: 04/11/21 09:31 Freq: Status: Active Protocol: Activity Type Activity Date Activity User E-Sign Co-Sign Detail Recorded Client Recorded Date Recorded By Document 04/11/21 10:20 DL [id number] 04/11/21 10:23 DL Document 04/18/21 10:09 DL [id number] 04/18/21 10:12 DL 04/11/21 04/18/21 10:20 10:09 Wound Care Nurse 3 #1- L GERMAN POST OP -Ulcer Cleansing Rinsed/ Rinsed/ Irrigated with Irrigated with Saline Saline -Foul Odor after Cleansing No No -Primary Dressing Applied Promogran Promogran Alicia Matter Alicia Matter -Primary Dressing Covered/Secured with Dry Gauze & Dry Gauze & Roll Gauze, Roll Gauze, Secured with Secured with Tape Tape -Promogran Alicia Matter 1 1 Left -Tubular Bandage Single Layer Double Layer -Size of Tubigrip Used Size E Size E -Size E ($) 1 2 Treatment Response Procedure Procedure Tolerated Well Tolerated Well Pain Scale: 0-10 Numeric Is Patient Pain Free? Yes Yes WC - Visit Discharge Discharge Condition Stable Stable Ambulatory Status Ambulatory Ambulatory Transportation Private Auto Private Auto Accompanied by Assessment/Plan Assessment/Plan (1) Ulcer of left lower extremity with fat layer exposed: CODE(S): L97.922 - Non-pressure chronic ulcer of unspecified part of left lower leg with fat layer exposed (2) Edema of both lower legs: CODE(S): R60.0 - Localized edema (3) Lupus: CODE(S): M32.9 - Systemic lupus erythematosus, unspecified PLAN: Wound care - She completed 9 applications of Theraskin. Will now apply Alicia covered with ABD daily. Compression is a double layer tubigrip. Wound culture obtained on 01/03/21 which was positive for MRSA. With all the resistance, she has completed her Linezolid. Operative cultures positive for Enterococcus avium, Enterococcus gallinarum, Turicella otitidis and Bacteroides thetaiotaomicron. Fungal cultures positive for Sara tropicalis. She completed Linezolid and Flagyl and Diflucan daily. Because of her history of Lupus she may have delayed wound healing. Follow up one week.
[2021-04-25 09:24] VITALS: BP 180/70; PULSE 79; RESP 16; TEMP 36.4; BMI 36.0
--- NOTE | 2021-04-25 13:09 | PN.PCM_ITS ---
History of Present Illness Date of Service: 04/25/21 Chief Complaint: Left anterior leg ulcer after being bitten by a pet potbelly pig History of Wound: 71 year old F who was attacked by her pet potbelly pig on 11/08/20 and sustained a complex wound laceration to her left anterior leg. In the ED the wounds were cleansed and suture closed. She was discharged on Cipro and Clindamycin. A week later she saw her PCP because of increasing redness and pain and swelling who started her on daily injections of Ceftriaxone and added Flagyl. There was some improvement but the redness and swelling was persistent. She went to the ED on 11/17/20 for further evaluation. X-ray showed no fracture and no foreign body. WBC was normal at 6.7. Lactate was 1.0. She was admitted and started on Vancomycin and Cefazolin. Surgery 11/19/20 - Surgical preparation left anterior leg with incision and drainage and excisional debridement pig bite wound infection abscess with skin necrosis (96 cm2). Wound care - She had 9 applications of Theraskin. She now will place Alicia and cover with ABD or gauze daily. Double layer tubigrip for compression. If she needs more compression, she can apply an PHILLIP wrap over the double tubigrip. She was placed on Levaquin on 12/29/20 because home health called stating that her mackenzie wound was red and warm. Wound culture obtained on 01/03/21 which was positive for MRSA. With all the resistance, she was started on Linezolid. She had to stop her antidepressants while on this medications. Operative cultures positive for Enterococcus avium, Enterococcus gallinarum, Turicella otitidis and Bacteroides thetaiotaomicron. Fungal cultures positive for Sara tropicalis. She completed Linezolid and Flagyl. She was started on Diflucan daily. CMP drawn on 01/05/21 Total Bili 0.20, AST 12, ALT 23, Alk Phos 72, Albumin 3.6. Today she denies any fevers, chills, nausea or vomiting. She states her appetite is good and she has increased her protein intake. Progress of Wound: Left leg ulcer is beefy pink, smaller in size. Granulation tissue present. Objective Data Objective Data Vital Signs: Vital Signs Temp Pulse Resp BP 97.6 F L 79 16 180/70 H 04/25/21 09:24 04/25/21 09:24 04/25/21 09:24 04/25/21 09:24 Oxygen Delivery Method Room Air Weight: 230 lb Body Mass Index (BMI) 36.0 Charges/Coding Procedures Integumentary 111xxx-113xx: 89212 Blanche subq tissue 20 sq cm/< Physical Exam Const alert and oriented x3 General Appearance: cooperative HEENT normocephalic Head and Scalp: atraumatic Resp normal respiratory effort Cardio regular rate Extremity normal capillary refill Extremity Narrative: +1-+2 edema bilateral lower extremities. Skin Wound Narrative: Left anterior leg ulcer is beefy pink, smaller in size, good granulation tissue is present. Neuro CN's II-XII intact bilaterally Psych Appearance: grossly normal Debridement Note Debridement Note Wound debrided: anterior leg ulcer Laterality: Left Type of Debridement: Excisional debridement Anesthesia Used: 5% Lidocaine Gel Depth: Down to and including healthy tissue and in the subcutaneous layer Percentage of wound debrided: 100 Instrument Used: 5mm curette Tissue Removed: Subcutaneous tissue and slough Severity: Fat Layer Exposed Amount of bleeding with debridement: Mild Bleeding Controlled with: Compression and gauze Patient tolerated procedure: Patient tolerated procedure well Post-Debridement Measurements and Additional Note: Post-Debridement Me asurements/Treatment - Nurse 1 - General Ulcer Assessment Start: 04/11/21 09:31 Freq: Status: Active Protocol: RUBIA Activity Type Activity Date Activity User E-Sign Co-Sign Detail Recorded Client Recorded Date Recorded By Document 04/11/21 09:43 AR [id number] 04/11/21 10:46 AR Document 04/18/21 09:37 [facility] [id number] 04/18/21 09:44 [facility] Document 04/25/21 09:24 [facility] [id number] 04/25/21 09:33 [facility] 04/11/21 04/18/21 04/25/21 09:43 09:37 09:24 - Today's Visit Information Type of service Follow-up Visit Follow-up Visit Follow-up Visit (Physician/MACHINE TANK OPERATOR (Physician/MACHINE TANK OPERATOR (Physician/MACHINE TANK OPERATOR ) ) ) Arrival Mode Ambulatory Ambulatory Ambulatory Transfer Assistance None None Accompanied by Patient Identification Verified (Name & Yes Yes Yes ) Patient Requires Transmission-Based No No Precautions Safety Precautions NA Height and Weight Body Mass Index (BMI) 36.0 36.0 36.0 BMI Classification Obese Obese Obese Vital Signs Temperature (97.8 F-99.1 F) 97.6 F L 97.7 F L 97.6 F L Temperature Source Temporal Temporal Temporal Pulse Rate (60-100) 76 81 79 Pulse Location Monitor Monitor Respiratory Rate (12-18) 16 16 Respiratory rate source Observation Observation Oxygen Delivery Method Room Air Room Air Blood Pressure (90/60-120/80) 186/81 H 180/70 H Blood Pressure Mean (mm Hg) 116 106 Source Monitor Monitor Position Sitting Sitting Blood Pressure Location Left Arm Left Arm Comment 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 Any new allergies or adverse reactions No No No Had a fall/change in ADL's that may No No No increase risk of falls Signs or symptoms of abuse and/or No No No neglect since last visit Have you been in the hospital since your No No No last visit? Has dressing in place as prescribed Yes Yes Yes Has compression in place as prescribed N/A Yes Yes Has offloadiing in place as prescribed N/A N/A N/A Experienced any changes in pain level or No No No management Left Footwear Regular Shoe Regular Shoe Regular Shoe Right Footwear Regular Shoe Regular Shoe Regular Shoe Pain Scale: 0-10 Numeric Is Patient Pain Free? Yes Yes Yes WC - Nurse 1 - General Ulcer Measurement Start: 04/11/21 09:31 Freq: Status: Active Protocol: Activity Type Activity Date Activity User E-Sign Co-Sign Detail Recorded Client Recorded Date Recorded By Document 04/11/21 09:43 AK [id number] 04/11/21 10:46 AK Document 04/18/21 09:37 [facility] [id number] 04/18/21 09:44 [facility] Document 04/25/21 09:24 [facility] [id number] 04/25/21 09:33 BMF 04/11/21 04/18/21 04/25/21 09:43 09:37 09:24 Wound Center Nurse 1 #1- L GERMAN POST OP -Combined with other wound No No No -Current Size (cm) - Length 5.4 5 -Current Size (cm) - Width 2.7 2.3 -Current Size (cm) - Depth 0.1 0.1 -Total Square Cm 14.58 11.5 -Date of Last Picture (Recall this 04/25/21 field) -Photo Taken No Yes -Epithelialization Small 1-33% Small 1-33% -Tunneling No No -Undermining/Tunneling No No -Circular Undermining No No No -Change in Wound Grade/Stage No -Exudate Amt None Present Medium Medium -Exudate Type Serosanguineous Serosanguineous -Wound Margin Distinct, Distinct, Distinct, Outline Outline Outline Attached Attached Attached -Granulation Amt None Present (0 Large (67-100%) Large (67-100%) %) -Granulation Quality [place] Red -Slough/Fibrin No Yes No -Necrosis Amt Small (1-33%) None Present (0 %) -Necrotic Tissue Type Adherent Slough -Texture (Mackenzie-wound Skin Appearance) Assessed, Assessed, Scarring Scarring -Moisture (Mackenzie-wound Skin Appearance) Assessed,Dry/ Assessed,Dry/ Scaly Scaly -Color (Mackenzie-wound Skin Appearance) Assessed Assessed -Temperature (Mackenzie-wound Skin No Abnormality No Abnormality Appearance) (Pt Warm) (Pt Warm) -Tenderness on Palpation (Mackenzie-wound No Yes Skin Appearance) -Ulcer Cleansing Soap and Water Rinsed/ Soap and Water Irrigated with Saline -Foul Odor after Cleansing Yes, Due to No Product Use -Anesthetic Used 4% Lidocaine 4% Lidocaine 4% Lidocaine Solution Solution Solution -Wound Comment(s) Couldn't measure. The dressing was stuck to the wound. I soaked in lidocain 4% Lower Limb Edema Present Yes Yes Right Calf (cm) 40.5 Right Ankle (cm) 26.5 Left Calf (cm) 40.2 Left Ankle (cm) 26.5 WC - Nurse 2 - General Ulcer CM Notes Start: 04/11/21 09:31 Freq: Status: Active Protocol: Activity Type Activity Date Activity User E-Sign Co-Sign Detail Recorded Client Recorded Date Recorded By Document 04/11/21 10:00 SHAQ [id number] 04/11/21 10:05 Document 04/18/21 09:58 [id number] 04/18/21 10:00 JF Document 04/25/21 09:43 [id number] 04/25/21 09:44 04/11/21 04/18/21 04/25/21 10:00 09:58 09:43 Wound Center Nurse 2 #1- L GERMAN POST OP -Time 10:01 09:59 09:43 -Correct Patient Yes Yes Yes -Correct Side, Site, Position Yes Yes Yes -Correct Procedure Yes Yes Yes -Procedure Performed Yes Yes Yes -Type of Procedure Debridement Debridement Debridement -Clinical Debridement Subcutaneous Subcutaneous Subcutaneous -Tissue Removed Subcutaneous Subcutaneous Subcutaneous -Post Debridement (cm) - Length 5 5.0 4.8 -Post Debridement (cm) - Width 2.5 2.6 2.5 -Post Debridement (cm) - Depth 0.1 0.1 0.1 -Total Square (Post) (cm) 12.5 13.00 12.00 -Area of Debridement (cm) - Length 5 5 4.8 -Area of Debridement (cm) - Width 2.5 2.6 2.5 -Total Square (Area) (cm) 12.5 13.0 12.00 -Tunneling No No No -Undermining/Tunneling No No No -Circular Undermining No No No -Wound/Ulcer Outcome Not Healed Not Healed Not Healed -Ulcer Cleansing Rinsed/ Rinsed/ Rinsed/ Irrigated with Irrigated with Irrigated with Saline Saline Saline -Foul Odor after Cleansing No No No -Bioengineered Tissue No No No -Bleeding Controlled with Pressure Pressure Pressure -Offloading No No No -Treatment Response Procedure Procedure Procedure Tolerated Well Tolerated Well Tolerated Well -Debridement - Subq, 1st 20sq cm Yes Yes Yes Pain Scale: 0-10 Numeric Is Patient Pain Free? Yes Yes Yes WC - Nurse 3 - General Ulcer D/C NN Start: 04/11/21 09:31 Freq: Status: Active Protocol: Activity Type Activity Date Activity User E-Sign Co-Sign Detail Recorded Client Recorded Date Recorded By Document 04/11/21 10:20 DL [id number] 04/11/21 10:23 DL Document 04/18/21 10:09 DL [id number] 04/18/21 10:12 DL Document 04/25/21 10:00 BMF [id number] 04/25/21 10:00 [facility] 04/11/21 04/18/21 04/25/21 10:20 10:09 10:00 Wound Care Nurse 3 #1- L GERMAN POST OP -Ulcer Cleansing Rinsed/ Rinsed/ Rinsed/ Irrigated with Irrigated with Irrigated with Saline Saline Saline -Foul Odor after Cleansing No No No -Primary Dressing Applied Promogran Promogran Promogran Alicia Matter Alicia Matter Alicia Matter -Primary Dressing Covered/Secured with Dry Gauze & Dry Gauze & Dry Gauze & Roll Gauze, Roll Gauze, Roll Gauze, Secured with Secured with Secured with Tape Tape Tape -Promogran Alicia Matter 1 1 1 Left -Compression Wrap Phillip Wrap -Tubular Bandage Single Layer Double Layer Double Layer -Size of Tubigrip Used Size E Size E Size E -Size E ($) 1 2 1 Treatment Response Procedure Procedure Procedure Tolerated Well Tolerated Well Tolerated Well Pain Scale: 0-10 Numeric Is Patient Pain Free? Yes Yes Yes WC - Visit Discharge Discharge Condition Stable Stable Stable Ambulatory Status Ambulatory Ambulatory Ambulatory Transportation Private Auto Private Auto Private Auto Accompanied by Assessment/Plan Assessment/Plan (1) Ulcer of left lower extremity with fat layer exposed: CODE(S): L97.922 - Non-pressure chronic ulcer of unspecified part of left lower leg with fat layer exposed (2) Edema of both lower legs: CODE(S): R60.0 - Localized edema (3) Lupus: CODE(S): M32.9 - Systemic lupus erythematosus, unspecified (4) Essential hypertension: CODE(S): I10 - Essential (primary) hypertension PLAN: Wound care - She completed 9 applications of Theraskin. Will now apply Alicia covered with ABD daily. Compression is a double layer tubigrip. If she needs further compression, she can apply an PHILLIP wrap over the double layer tubigrip. Wound culture obtained on 01/03/21 which was positive for MRSA. With all the resistance, she has completed her Linezolid. Operative cultures positive for Enterococcus avium, Enterococcus gallinarum, Turicella otitidis and Bacteroides thetaiotaomicron. Fungal cultures positive for Sara tropicalis. She completed Linezolid and Flagyl and Diflucan daily. Because of her history of Lupus she may have delayed wound healing. She has been having issues with her blood pressure being higher than normal. She has an appointment later today with her PCP to discuss this. Follow up one week.
[2021-05-02 09:27] VITALS: BP 151/107; PULSE 77; RESP 16; TEMP 36.4; BMI 36.0
--- NOTE | 2021-05-02 13:44 | PN.PCM_ITS ---
History of Present Illness Date of Service: 05/02/21 Chief Complaint: Left anterior leg ulcer after being bitten by a pet potbelly pig History of Wound: 71 year old F who was attacked by her pet potbelly pig on 11/08/20 and sustained a complex wound laceration to her left anterior leg. In the ED the wounds were cleansed and suture closed. She was discharged on Cipro and Clindamycin. A week later she saw her PCP because of increasing redness and pain and swelling who started her on daily injections of Ceftriaxone and added Flagyl. There was some improvement but the redness and swelling was persistent. She went to the ED on 11/17/20 for further evaluation. X-ray showed no fracture and no foreign body. WBC was normal at 6.7. Lactate was 1.0. She was admitted and started on Vancomycin and Cefazolin. Surgery 11/19/20 - Surgical preparation left anterior leg with incision and drainage and excisional debridement pig bite wound infection abscess with skin necrosis (96 cm2). Wound care - She had 9 applications of Theraskin. She now will place Alicia and cover with ABD or gauze daily. Double layer tubigrip for compression. If she needs more compression, she can apply an PHILLIP wrap over the double tubigrip. She was placed on Levaquin on 12/29/20 because home health called stating that her mackenzie wound was red and warm. Wound culture obtained on 01/03/21 which was positive for MRSA. With all the resistance, she was started on Linezolid. She had to stop her antidepressants while on this medications. Operative cultures positive for Enterococcus avium, Enterococcus gallinarum, Turicella otitidis and Bacteroides thetaiotaomicron. Fungal cultures positive for Sara tropicalis. She completed Linezolid and Flagyl. She was started on Diflucan daily. CMP drawn on 01/05/21 Total Bili 0.20, AST 12, ALT 23, Alk Phos 72, Albumin 3.6. Today she denies any fevers, chills, nausea or vomiting. She states her appetite is good and she has increased her protein intake. Progress of Wound: Left leg ulcer is beefy pink, smaller in size. Granulation tissue present. Objective Data Objective Data Vital Signs: Vital Signs Temp Pulse Resp BP 97.6 F L 77 16 151/107 H 05/02/21 09:27 05/02/21 09:27 05/02/21 09:27 05/02/21 09:27 Oxygen Delivery Method Room Air Weight: 230 lb Body Mass Index (BMI) 36.0 Charges/Coding Procedures Integumentary 111xxx-113xx: 17242 Blanche subq tissue 20 sq cm/< Physical Exam Const alert and oriented x3 General Appearance: cooperative HEENT normocephalic Head and Scalp: atraumatic Eyes PERRL Resp normal respiratory effort Cardio regular rate Extremity normal capillary refill Extremity Narrative: +1 edema bilateral lower extremities Skin Wound Narrative: Left leg ulcer improving in size, beefy pink in color. Neuro CN's II-XII intact bilaterally Psych Appearance: grossly normal Debridement Note Debridement Note Wound debrided: Leg ulcer Laterality: Left Type of Debridement: Excisional debridement Anesthesia Used: 4% Lidocaine Solution and 5% Lidocaine Gel Depth: Down to and including healthy tissue and in the subcutaneous layer Percentage of wound debrided: 100 Instrument Used: 5mm curette Tissue Removed: Nonviable tissue and slough Severity: Fat Layer Exposed Amount of bleeding with debridement: Mild Bleeding Controlled with: Pressure Patient tolerated procedure: Patient tolerated procedure well Post-Debridement Measurements and Additional Note: Post-Debridement Measure ments/Treatment - Nurse 1 - General Ulcer Assessment Start: 04/11/21 09:31 Freq: Status: Active Protocol: RUBIA Activity Type Activity Date Activity User E-Sign Co-Sign Detail Recorded Client Recorded Date Recorded By Document 04/11/21 09:43 UT [id number] 04/11/21 10:46 UT Document 04/18/21 09:37 [facility] [id number] 04/18/21 09:44 [facility] Document 04/25/21 09:24 [facility] [id number] 04/25/21 09:33 [facility] Document 05/02/21 09:27 [facility] [id number] 05/02/21 09:37 [facility] 04/11/21 04/18/21 04/25/21 09:43 09:37 09:24 - Today's Visit Information Type of service Follow-up Visit Follow-up Visit Follow-up Visit (Physician/COMFORT FILLER (Physician/COMFORT FILLER (Physician/COMFORT FILLER ) ) ) Arrival Mode Ambulatory Ambulatory Ambulatory Transfer Assistance None None Accompanied by Patient Identification Verified (Name & Yes Yes Yes ) Patient Requires Transmission-Based No No Precautions Safety Precautions NA Height and Weight Body Mass Index (BMI) 36.0 36.0 36.0 BMI Classification Obese Obese Obese Vital Signs Temperature (97.8 F-99.1 F) 97.6 F L 97.7 F L 97.6 F L Temperature Source Temporal Temporal Temporal Pulse Rate (60-100) 76 81 79 Pulse Location Monitor Monitor Respiratory Rate (12-18) 16 16 Respiratory rate source Observation Observation Oxygen Delivery Method Room Air Room Air Blood Pressure (90/60-120/80) 186/81 H 180/70 H Blood Pressure Mean (mm Hg) 116 106 Source Monitor Monitor Position Sitting Sitting Blood Pressure Location Left Arm Left Arm Comment pt states counseled pt on switchboard troubleshooter bp restarted bp meds History Since Last Visit- (Skip if this is Patient's initial visit) Have you changed medications since your No No No last visit? Any new allergies or adverse reactions No No No Had a fall/change in ADL's that may No No No increase risk of falls Signs or symptoms of abuse and/or No No No neglect since last visit Have you been in the hospital since your No No No last visit? Has dressing in place as prescribed Yes Yes Yes Has compression in place as prescribed N/A Yes Yes Has offloadiing in place as prescribed N/A N/A N/A Experienced any changes in pain level or No No No management Left Footwear Regular Shoe Regular Shoe Regular Shoe Right Footwear Regular Shoe Regular Shoe Regular Shoe Pain Scale: 0-10 Numeric Is Patient Pain Free? Yes Yes Yes 05/02/21 09:27 WC - Today's Visit Information Type of service Follow-up Visit (Physician/COMFORT FILLER ) Arrival Mode Ambulatory Transfer Assistance None Accompanied by Patient Identification Verified (Name & Yes ) Patient Requires Transmission-Based No Precautions Safety Precautions Height and Weight Body Mass Index (BMI) 36.0 BMI Classification Obese Vital Signs Temperature (97.8 F-99.1 F) 97.6 F L Temperature Source Temporal Pulse Rate (60-100) 77 Pulse Location Monitor Respiratory Rate (12-18) 16 Respiratory rate source Observation Oxygen Delivery Method Room Air Blood Pressure (90/60-120/80) 151/107 H Blood Pressure Mean (mm Hg) 121 Source Monitor Position Sitting Blood Pressure Location Left Arm Comment pt currently seeing cardio & pcp for ^bp's History Since Last Visit- (Skip if this is Patient's initial visit) Have you changed medications since your No last visit? Any new allergies or adverse reactions No Had a fall/change in ADL's that may No increase risk of falls Signs or symptoms of abuse and/or No neglect since last visit Have you been in the hospital since your No last visit? Has dressing in place as prescribed Yes Has compression in place as prescribed Yes Has offloadiing in place as prescribed N/A Experienced any changes in pain level or No management Left Footwear Regular Shoe Right Footwear Regular Shoe Pain Scale: 0-10 Numeric Is Patient Pain Free? Yes WC - Nurse 1 - General Ulcer Measurement Start: 04/11/21 09:31 Freq: Status: Active Protocol: Activity Type Activity Date Activity User E-Sign Co-Sign Detail Recorded Client Recorded Date Recorded By Document 04/11/21 09:43 UT [id number] 04/11/21 10:46 AK Document 04/18/21 09:37 [facility] [id number] 04/18/21 09:44 BM Document 04/25/21 09:24 BM [id number] 04/25/21 09:33 BM Document 05/02/21 09:27 BM [id number] 05/02/21 09:37 BMF 04/11/21 04/18/21 04/25/21 09:43 09:37 09:24 Wound Center Nurse 1 #1- L GERMAN POST OP -Combined with other wound No No No -Current Size (cm) - Length 5.4 5 -Current Size (cm) - Width 2.7 2.3 -Current Size (cm) - Depth 0.1 0.1 -Total Square Cm 14.58 11.5 -Date of Last Picture (Recall this 04/25/21 field) -Photo Taken No Yes -Epithelialization Small 1-33% Small 1-33% -Tunneling No No -Undermining/Tunneling No No -Circular Undermining No No No -Change in Wound Grade/Stage No -Exudate Amt None Present Medium Medium -Exudate Type Serosanguineous Serosanguineous -Wound Margin Distinct, Distinct, Distinct, Outline Outline Outline Attached Attached Attached -Granulation Amt None Present (0 Large (67-100%) Large (67-100%) %) -Granulation Quality [place] Red -Slough/Fibrin No Yes No -Necrosis Amt Small (1-33%) None Present (0 %) -Necrotic Tissue Type Adherent Slough -Texture (Mackenzie-wound Skin Appearance) Assessed, Assessed, Scarring Scarring -Moisture (Mackenzie-wound Skin Appearance) Assessed,Dry/ Assessed,Dry/ Scaly Scaly -Color (Mackenzie-wound Skin Appearance) Assessed Assessed -Temperature (Mackenzie-wound Skin No Abnormality No Abnormality Appearance) (Pt Warm) (Pt Warm) -Tenderness on Palpation (Mackenzie-wound No Yes Skin Appearance) -Ulcer Cleansing Soap and Water Rinsed/ Soap and Water Irrigated with Saline -Foul Odor after Cleansing Yes, Due to No Product Use -Anesthetic Used 4% Lidocaine 4% Lidocaine 4% Lidocaine Solution Solution Solution -Wound Comment(s) Couldn't measure. The dressing was stuck to the wound. I soaked in lidocain 4% Lower Limb Edema Present Yes Yes Right Calf (cm) 40.5 Right Ankle (cm) 26.5 Left Calf (cm) 40.2 Left Ankle (cm) 26.5 05/02/21 09:27 Wound Center Nurse 1 #1- L GERMAN POST OP -Combined with other wound No -Current Size (cm) - Length 5 -Current Size (cm) - Width 2.2 -Current Size (cm) - Depth 0.1 -Total Square Cm 11.0 -Date of Last Picture (Recall this 05/02/21 field) -Photo Taken No -Epithelialization Small 1-33% -Tunneling No -Undermining/Tunneling No -Circular Undermining No -Change in Wound Grade/Stage -Exudate Amt Medium -Exudate Type Serosanguineous -Wound Margin Distinct, Outline Attached -Granulation Amt Large (67-100%) -Granulation Quality Red -Slough/Fibrin No -Necrosis Amt Small (1-33%) -Necrotic Tissue Type Adherent Slough -Texture (Mackenzie-wound Skin Appearance) Assessed, Scarring -Moisture (Mackenzie-wound Skin Appearance) Assessed -Color (Mackenzie-wound Skin Appearance) Assessed -Temperature (Mackenzie-wound Skin No Abnormality Appearance) (Pt Warm) -Tenderness on Palpation (Mackenzie-wound Yes Skin Appearance) -Ulcer Cleansing Rinsed/ Irrigated with Saline -Foul Odor after Cleansing Yes, Due to Product Use -Anesthetic Used 5% Lidocaine Gel -Wound Comment(s) Lower Limb Edema Present Yes Right Calf (cm) Right Ankle (cm) Left Calf (cm) 44 Left Ankle (cm) 26.5 WC - Nurse 2 - General Ulcer CM Notes Start: 04/11/21 09:31 Freq: Status: Active Protocol: Activity Type Activity Date Activity User E-Sign Co-Sign Detail Recorded Client Recorded Date Recorded By Document 04/11/21 10:00 [id number] 04/11/21 10:05 Document 04/18/21 09:58 [id number] 04/18/21 10:00 Document 04/25/21 09:43 [id number] 04/25/21 09:44 Document 05/02/21 09:47 [id number] 05/02/21 09:54 04/11/21 04/18/21 04/25/21 10:00 09:58 09:43 Wound Center Nurse 2 #1- L GERMAN POST OP -Time 10:01 09:59 09:43 -Correct Patient Yes Yes Yes -Correct Side, Site, Position Yes Yes Yes -Correct Procedure Yes Yes Yes -Procedure Performed Yes Yes Yes -Type of Procedure Debridement Debridement Debridement -Clinical Debridement Subcutaneous Subcutaneous Subcutaneous -Tissue Removed Subcutaneous Subcutaneous Subcutaneous -Post Debridement (cm) - Length 5 5.0 4.8 -Post Debridement (cm) - Width 2.5 2.6 2.5 -Post Debridement (cm) - Depth 0.1 0.1 0.1 -Total Square (Post) (cm) 12.5 13.00 12.00 -Area of Debridement (cm) - Length 5 5 4.8 -Area of Debridement (cm) - Width 2.5 2.6 2.5 -Total Square (Area) (cm) 12.5 13.0 12.00 -Tunneling No No No -Undermining/Tunneling No No No -Circular Undermining No No No -Wound/Ulcer Outcome Not Healed Not Healed Not Healed -Ulcer Cleansing Rinsed/ Rinsed/ Rinsed/ Irrigated with Irrigated with Irrigated with Saline Saline Saline -Foul Odor after Cleansing No No No -Bioengineered Tissue No No No -Bleeding Controlled with Pressure Pressure Pressure -Offloading No No No -Treatment Response Procedure Procedure Procedure Tolerated Well Tolerated Well Tolerated Well -Debridement - Subq, 1st 20sq cm Yes Yes Yes Pain Scale: 0-10 Numeric Is Patient Pain Free? Yes Yes Yes 05/02/21 09:47 Wound Center Nurse 2 #1- L GERMAN POST OP -Time 09:47 -Correct Patient Yes -Correct Side, Site, Position Yes -Correct Procedure Yes -Procedure Performed Yes -Type of Procedure Debridement -Clinical Debridement Subcutaneous -Tissue Removed Subcutaneous -Post Debridement (cm) - Length 5.3 -Post Debridement (cm) - Width 2.0 -Post Debridement (cm) - Depth 0.1 -Total Square (Post) (cm) 10.60 -Area of Debridement (cm) - Length 5.3 -Area of Debridement (cm) - Width 2.0 -Total Square (Area) (cm) 10.60 -Tunneling No -Undermining/Tunneling No -Circular Undermining No -Wound/Ulcer Outcome Not Healed -Ulcer Cleansing Rinsed/ Irrigated with Saline -Foul Odor after Cleansing No -Bioengineered Tissue No -Bleeding Controlled with Pressure -Offloading No -Treatment Response Procedure Tolerated Well -Debridement - Subq, 1st 20sq cm Yes Pain Scale: 0-10 Numeric Is Patient Pain Free? Yes - Nurse 3 - General Ulcer D/C NN Start: 04/11/21 09:31 Freq: Status: Active Protocol: Activity Type Activity Date Activity User E-Sign Co-Sign Detail Recorded Client Recorded Date Recorded By Document 04/11/21 10:20 DL [id number] 04/11/21 10:23 DL Document 04/18/21 10:09 DL [id number] 04/18/21 10:12 DL Document 04/25/21 10:00 [facility] [id number] 04/25/21 10:00 [facility] Document 05/02/21 10:04 [facility] [id number] 05/02/21 10:05 BMF 04/11/21 04/18/21 04/25/21 10:20 10:09 10:00 Wound Care Nurse 3 #1- L GERMAN POST OP -Ulcer Cleansing Rinsed/ Rinsed/ Rinsed/ Irrigated with Irrigated with Irrigated with Saline Saline Saline -Foul Odor after Cleansing No No No -Primary Dressing Applied Promogran Promogran Promogran Alicia Matter Alicia Matter Alicia Matter -Primary Dressing Covered/Secured with Dry Gauze & Dry Gauze & Dry Gauze & Roll Gauze, Roll Gauze, Roll Gauze, Secured with Secured with Secured with Tape Tape Tape -Promogran Alicia Matter 1 1 1 Left -Compression Wrap Phillip Wrap -Tubular Bandage Single Layer Double Layer Double Layer -Size of Tubigrip Used Size E Size E Size E -Size E ($) 1 2 1 Treatment Response Procedure Procedure Procedure Tolerated Well Tolerated Well Tolerated Well Pain Scale: 0-10 Numeric Is Patient Pain Free? Yes Yes Yes WC - Visit Discharge Discharge Condition Stable Stable Stable Ambulatory Status Ambulatory Ambulatory Ambulatory Transportation Private Auto Private Auto Private Auto Accompanied by 05/02/21 10:04 Wound Care Nurse 3 #1- L GERMAN POST OP -Ulcer Cleansing Rinsed/ Irrigated with Saline -Foul Odor after Cleansing No -Primary Dressing Applied Promogran Alicia Matter -Primary Dressing Covered/Secured with Dry Gauze & Roll Gauze, Secured with Tape -Promogran Alicia Matter 1 Left -Compression Wrap Phillip Wrap -Tubular Bandage Double Layer -Size of Tubigrip Used Size E -Size E ($) 1 Treatment Response Procedure Tolerated Well Pain Scale: 0-10 Numeric Is Patient Pain Free? Yes WC - Visit Discharge Discharge Condition Stable Ambulatory Status Ambulatory Transportation Private Auto Accompanied by Assessment/Plan Assessment/Plan (1) Ulcer of left lower extremity with fat layer exposed: CODE(S): L97.922 - Non-pressure chronic ulcer of unspecified part of left lower leg with fat layer exposed (2) Edema of both lower legs: CODE(S): R60.0 - Localized edema (3) Lupus: CODE(S): M32.9 - Systemic lupus erythematosus, unspecified (4) Essential hypertension: CODE(S): I10 - Essential (primary) hypertension (5) Animal bite: CODE(S): T14.8XXA - Other injury of unspecified body region, initial en counter PLAN: Wound care - She completed 9 applications of Theraskin. Will now apply Alicia covered with gauze or ABD daily. Compression is a double layer tubigrip. If she needs further compression, she can apply an PHILLIP wrap over the double layer tubigrip. Wound culture obtained on 01/03/21 which was positive for MRSA. With all the resistance, she has completed her Linezolid. Operative cultures positive for Enterococcus avium, Enterococcus gallinarum, Turicella otitidis and Bacteroides thetaiotaomicron. Fungal cultures positive for Sara tropicalis. She completed Linezolid and Flagyl and Diflucan daily. Because of her history of Lupus she may have delayed wound healing. She continues to have issues with her blood pressure being higher than normal. She has been seeing her PCP and switchboard troubleshooter for this. Follow up one week.
== END 2021-05-02 23:59 ==
LOC: WC 09:30
PROVIDERS: PCP Family Medicine Geriatric Medicine; Visit Provider Nurse Practitioner Family
DX: L97.822 Non-pressure chronic ulcer of other part of left lower leg with fat layer exposed (principal); M32.9 Systemic lupus erythematosus, unspecified; I10 Essential (primary) hypertension; R60.0 Localized edema; S81.852S Open bite, left lower leg, sequela; W55.41 Bitten by pig
CPT/HCPCS: 11042

== ENCOUNTER 2021-05-09 12:33 | Outpatient (CLI) | payer MEDICARE, OTHER, SELFPAY ==
[2021-05-09 14:04] LABS: Anion Gap 6 (5-15); BUN 25 mg/dL (7-18); BUN/Creat Ratio 28.8 RATIO (10-20); Calcium,Total 9.4 mg/dL (8.5-10.1); Chloride 103 mmol/L (98-107); Creatinine, Serum 0.87 mg/dL (0.55-1.02); EST Glomerular Filtration Rate 68 mL/min (>60); Est Glom Filt Rate - Afr Amer 83 mL/min (>60); Glucose 112 mg/dL (74-106); Potassium 3.4 mmol/L (3.5-5.1); Sodium Level 139 mmol/L (136-145)
== END 2021-05-09 23:59 | disposition home or self-care (01) ==
LOC: LAB 12:35
PROVIDERS: PCP Family Medicine Geriatric Medicine; Referring Provider Nurse Practitioner Gerontology; Visit Provider Nurse Practitioner Gerontology
DX: I10 Essential (primary) hypertension (principal); L97.822 Non-pressure chronic ulcer of other part of left lower leg with fat layer exposed; M32.9 Systemic lupus erythematosus, unspecified; R60.0 Localized edema; S81.852S Open bite, left lower leg, sequela; W55.41 Bitten by pig
CPT/HCPCS: 11042; 36415; 80048

== ENCOUNTER 2021-05-30 09:30 | Outpatient (RCR) | payer MEDICARE, OTHER, SELFPAY ==
[2021-05-03 00:21] VITALS: BP 151/107; PULSE 77; RESP 16; TEMP 36.4; BMI 36.0
[2021-05-09 09:25] VITALS: BP 146/68; PULSE 78; RESP 16; TEMP 37.2; BMI 36.0
--- NOTE | 2021-05-09 15:47 | PN.PCM_ITS ---
History of Present Illness Date of Service: 05/09/21 Chief Complaint: Nonhealing ulcer left anterior leg. History of Wound: Surgery 11/19/20 - Surgical preparation left anterior leg with incision and drainage and excisional debridement pig bite wound infection abscess with skin necrosis (96 cm2). Wound care - Silver dressing and PHILLIP wrap for compression. She was placed on Levaquin on 12/29/20 because home health called stating that her mackenzie wound was red and warm. Wound culture 01/03/21. It showed MRSA. She was started on Linezolid. She has had a plateau in the healing process and would benefit using an advanced skin substitute graph such as Theraskin to help with wound healing. Will apply it once it is approved. Anticipate one week for approval. Operative cultures positive for Enterococcus avium, Enterococcus gallinarum, Turicella otitidis and Bacteroides thetaiotaomicron. Fungal cultures positive for Sara tropicalis. She completed Linezolid and Flagyl. She was started on Diflucan daily. Labs from 01/05/22 showed Total Bilirubin was 0.20, AST was 12, ALT was 23, Alkaline Phosphatase was 72, Albumin was 3.6. Today she denies any fevers, chills, nausea or vomiting. She states her appetite is good and she has increased her protein intake. Progress of Wound: Wound culture that was obtained last week was not resulted. Her ulcer is beefy pink and smaller in size. Her edema is under better contol. Objective Data Objective Data Vital Signs: Vital Signs Temp Pulse Resp BP 98.9 F 78 16 146/68 H 05/09/21 09:25 05/09/21 09:25 05/09/21 09:25 05/09/21 09:25 Oxygen Delivery Method Room Air Weight: 230 lb Body Mass Index (BMI) 36.0 Charges/Coding Procedures Integumentary 111xxx-113xx: 13639 Blanche subq tissue 20 sq cm/< Physical Exam Const alert and oriented x3 General Appearance: cooperative HEENT normocephalic Resp normal respiratory effort Cardio regular rate Extremity normal capillary refill and no calf tenderness Extremity Narrative: +1 edema Skin Wound Narrative: Left leg ulcer is beefy pink, and a small in size compared to last week. Neuro CN's II-XII intact bilaterally Psych Appearance: grossly normal Debridement Note Debridement Note Wound debrided: Leg ulcer Laterality: Left Type of Debridement: Excisional debridement Anesthesia Used: 5% Lidocaine Gel Depth: Down to and including healthy tissue and in the subcutaneous layer Instrument Used: 5mm curette Tissue Removed: Subcutaneous tissue and slough Severity: Fat Layer Exposed Amount of bleeding with debridement: Mild Bleeding Controlled with: Pressure, Compression and gauze and Silver Nitrate (Along the medial edge of the ulcer) Patient tolerated procedure: Patient tolerated procedure well Post-Debridement Measurements and Additional Note: Post-Debridement Measurements/Treatment - Nurse 1 - General Ulcer Assessment Start: 05/09/21 09:24 Freq: Status: Active Protocol: RUBIA Activity Type Activity Date Activity User E-Sign Co-Sign Detail Recorded Client Recorded Date Recorded By Document 05/09/21 09:25 [facility] [id number] 05/09/21 09:30 [facility] 05/09/21 09:25 WC - Today's Visit Information Type of service Follow-up Visit (Physician/MEDIA PROFESSIONAL ) Arrival Mode Ambulatory Transfer Assistance None Accompanied by Patient Identification Verified (Name & Yes ) Patient Requires Transmission-Based No Precautions Height and Weight Body Mass Index (BMI) 36.0 BMI Classification Obese Vital Signs Temperature (97.8 F-99.1 F) 98.9 F Temperature Source Temporal Pulse Rate (60-100) 78 Pulse Location Monitor Respiratory Rate (12-18) 16 Respiratory rate source Observation Oxygen Delivery Method Room Air Blood Pressure (90/60-120/80) 146/68 H Blood Pressure Mean (mm Hg) 94 Source Monitor Position Sitting Blood Pressure Location Left Arm History Since Last Visit- (Skip if this is Patient's initial visit) Have you changed medications since your No last visit? Any new allergies or adverse reactions No Had a fall/change in ADL's that may No increase risk of falls Signs or symptoms of abuse and/or No neglect since last visit Have you been in the hospital since your No last visit? Has dressing in place as prescribed Yes Has compression in place as prescribed Yes Has offloadiing in place as prescribed N/A Experienced any changes in pain level or No management Left Footwear Regular Shoe Right Footwear Regular Shoe Pain Scale: 0-10 Numeric Is Patient Pain Free? Yes - Nurse 1 - General Ulcer Measurement Start: 05/09/21 09:24 Freq: Status: Active Protocol: Activity Type Activity Date Activity User E-Sign Co-Sign Detail Recorded Client Recorded Date Recorded By Document 05/09/21 09:25 [facility] [id number] 05/09/21 09:30 [facility] 05/09/21 09:25 Wound Center Nurse 1 #1- L GERMAN POST OP -Combined with other wound No -Current Size (cm) - Length 4.9 -Current Size (cm) - Width 1.8 -Current Size (cm) - Depth 0.1 -Total Square Cm 8.82 -Photo Taken No -Epithelialization Small 1-33% -Undermining/Tunneling No -Circular Undermining No -Exudate Amt Medium -Exudate Type Serosanguineous -Wound Margin Distinct, Outline Attached -Granulation Amt Large (67-100%) -Granulation Quality Red -Slough/Fibrin No -Necrosis Amt None Present (0 %) -Texture (Mackenzie-wound Skin Appearance) Assessed, Scarring -Moisture (Mackenzie-wound Skin Appearance) Assessed, Weeping -Color (Mackenzie-wound Skin Appearance) Assessed -Temperature (Mackenzie-wound Skin No Abnormality Appearance) (Pt Warm) -Tenderness on Palpation (Mackenzie-wound No Skin Appearance) -Ulcer Cleansing Rinsed/ Irrigated with Saline -Foul Odor after Cleansing No -Anesthetic Used 5% Lidocaine Gel Lower Limb Edema Present Yes Left Calf (cm) 38 Left Ankle (cm) 25 - Nurse 2 - General Ulcer CM Notes Start: 05/09/21 09:24 Freq: Status: Active Protocol: Activity Type Activity Date Activity User E-Sign Co-Sign Detail Recorded Client Recorded Date Recorded By Document 05/09/21 09:43 [id number] 05/09/21 09:46 JF Edit Result 05/09/21 09:43 JF (1) [id number] 05/09/21 09:49 JF (1) #1- L GERMAN POST OP - Bleeding Controlled with Pressure => Pressure,Silver => Nitrate 05/09/21 09:43 Wound Center Nurse 2 #1- L GERMAN POST OP -Time 09:44 -Correct Patient Yes -Correct Side, Site, Position Yes -Correct Procedure Yes -Procedure Performed Yes -Type of Procedure Debridement -Clinical Debridement Subcutaneous -Tissue Removed Subcutaneous -Post Debridement (cm) - Length 4.8 -Post Debridement (cm) - Width 2 -Post Debridement (cm) - Depth 0.1 -Total Square (Post) (cm) 9.6 -Area of Debridement (cm) - Length 4.8 -Area of Debridement (cm) - Width 2.0 -Total Square (Area) (cm) 9.60 -Tunneling No -Undermining/Tunneling No -Circular Undermining No -Wound/Ulcer Outcome Not Healed -Ulcer Cleansing Rinsed/ Irrigated with Saline -Foul Odor after Cleansing No -Bioengineered Tissue No -Bleeding Controlled with Pressure,Silver Nitrate -Offloading No -Treatment Response Procedure Tolerated Well -Debridement - Subq, 1st 20sq cm Yes Pain Scale: 0-10 Numeric Is Patient Pain Free? Yes - Nurse 3 - General Ulcer D/C NN Start: 05/09/21 09:24 Freq: Status: Active Protocol: Activity Type Activity Date Activity User E-Sign Co-Sign Detail Recorded Client Recorded Date Recorded By Document 05/09/21 10:00 [facility] [id number] 05/09/21 10:02 [facility] 05/09/21 10:00 Wound Care Nurse 3 #1- L GERMAN POST OP -Ulcer Cleansing Rinsed/ Irrigated with Saline -Negative Pressure Wound Therapy Discontinue -Primary Dressing Applied Promogran Alicia Matter -Primary Dressing Covered/Secured with Dry Gauze & Roll Gauze, Secured with Tape -Promogran Alicia Matter 1 Left -Compression Wrap Phillip Wrap -Tubular Bandage Double Layer -Size of Tubigrip Used Size E -Size E ($) 2 Treatment Response Procedure Tolerated Well Pain Scale: 0-10 Numeric Is Patient Pain Free? 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 Will now apply Alicia covered with gauze or ABD daily. Compression is a double layer tubigrip. If she needs further compression, she can apply an PHILLIP wrap over the double layer tubigrip. Wound culture obtained on 01/03/21 which was positive for MRSA. She has completed her Linezolid. Operative cultures positive for Enterococcus avium, Enterococcus gallinarum, Turicella otitidis and Bacteroides thetaiotaomicron. Fungal cultures positive for Sara tropicalis. She completed Linezolid and Flagyl and Diflucan. Because of her history of Lupus she may have delayed wound healing. She continues to have issues with her blood pressure being higher than normal. She has been seeing her PCP and siderographist for this. Follow up one week.
[2021-05-16 09:39] VITALS: BP 144/76; PULSE 83; TEMP 36.1; BMI 36.0
--- NOTE | 2021-05-16 12:03 | PN.PCM_ITS ---
History of Present Illness Date of Service: 05/16/21 Chief Complaint: Nonhealing ulcer left anterior leg. History of Wound: Surgery 11/19/20 - Surgical preparation left anterior leg with incision and drainage and excisional debridement pig bite wound infection abscess with skin necrosis (96 cm2). Wound care - Silver dressing and YAHAIRA wrap for compression. She was placed on Levaquin on 12/29/20 because home health called stating that her mackenzie wound was red and warm. Wound culture 01/03/21. It showed MRSA. She was started on Linezolid. She has had a plateau in the healing process and would benefit using an advanced skin substitute graph such as Theraskin to help with wound healing. Will apply it once it is approved. Anticipate one week for approval. Operative cultures positive for Enterococcus avium, Enterococcus gallinarum, Turicella otitidis and Bacteroides thetaiotaomicron. Fungal cultures positive for Sara tropicalis. She completed Linezolid and Flagyl. She was started on Diflucan daily. Labs from 01/05/22 showed Total Bilirubin was 0.20, AST was 12, ALT was 23, Alkaline Phosphatase was 72, Albumin was 3.6. Today she denies any fevers, chills, nausea or vomiting. She states her appetite is good and she has increased her protein intake. Progress of Wound: Left leg ulcer is beefy pink, and is smaller in size. She is having increased calf pain. Will order ultrasound to rule out DVT. Will obtain wound culture since her last culture was lost. Objective Data Objective Data Vital Signs: Vital Signs Temp Pulse Resp BP 96.9 F L 83 16 144/76 H 05/16/21 09:39 05/16/21 09:39 05/09/21 09:25 05/16/21 09:39 Oxygen Delivery Method Room Air Weight: 230 lb Body Mass Index (BMI) 36.0 Charges/Coding Procedures Integumentary 111xxx-113xx: 11314 Blanche subq tissue 20 sq cm/< Physical Exam Const alert and oriented x3 General Appearance: cooperative HEENT normocephalic Resp normal respiratory effort Cardio regular rate GI non-tender Extremity normal capillary refill Extremity Narrative: +1 edema bilateral lower extremities Skin Wound Narrative: Left leg ulcer is beefy pink, and is smaller in size, good granulation tissue is seen. Neuro CN's II-XII intact bilaterally Psych Appearance: grossly normal Debridement Note Debridement Note Wound debrided: Leg ulcer Laterality: Left Type of Debridement: Excisional debridement Anesthesia Used: 5% Lidocaine Gel Depth: Down to and including healthy tissue and in the subcutaneous layer Percentage of wound debrided: 100 Instrument Used: 5mm curette Tissue Removed: Subcutaneous tissue and slough Severity: Fat Layer Exposed Amount of bleeding with debridement: Mild Bleeding Controlled with: Pressure and Compression and gauze Patient tolerated procedure: Patient tolerated procedure well Post-Debridement Measurements and Additional Note: Post-Debridement Measurements/Treatment - Nurse 1 - General Ulcer Assessment Start: 05/09/21 09:24 Freq: Status: Active Protocol: [facility] Activity Type Activity Date Activity User E-Sign Co-Sign Detail Recorded Client Recorded Date Recorded By Document 05/09/21 09:25 [facility] [id number] 05/09/21 09:30 [facility] Document 05/16/21 09:39 TRI [id number] 05/16/21 09:40 KR 05/09/21 05/16/21 09:25 09:39 - Today's Visit Information Type of service Follow-up Visit Follow-up Visit (Physician/SOUS CHEF KITCHEN MANAGER (Physician/SOUS CHEF KITCHEN MANAGER ) ) Arrival Mode Ambulatory Ambulatory Transfer Assistance None Accompanied by Patient Identification Verified (Name & Yes Yes ) Patient Requires Transmission-Based No Precautions Height and Weight Body Mass Index (BMI) 36.0 36.0 BMI Classification Obese Obese Vital Signs Temperature (97.8 F-99.1 F) 98.9 F 96.9 F L Temperature Source Temporal Temporal Pulse Rate (60-100) 78 83 Pulse Location Monitor Monitor Respiratory Rate (12-18) 16 Respiratory rate source Observation Oxygen Delivery Method Room Air Blood Pressure (90/60-120/80) 146/68 H 144/76 H Blood Pressure Mean (mm Hg) 94 98 Source Monitor Monitor Position Sitting Semi-Fowlers Blood Pressure Location Left Arm Right Arm History Since Last Visit- (Skip if this is Patient's initial visit) Have you changed medications since your No No last visit? Any new allergies or adverse reactions No No Had a fall/change in ADL's that may No No increase risk of falls Signs or symptoms of abuse and/or No No neglect since last visit Have you been in the hospital since your No No last visit? Has dressing in place as prescribed Yes Yes Has compression in place as prescribed Yes Yes Has offloadiing in place as prescribed N/A N/A Experienced any changes in pain level or No No management Left Footwear Regular Shoe Regular Shoe Right Footwear Regular Shoe Regular Shoe Pain Scale: 0-10 Numeric Is Patient Pain Free? Yes Yes - Nurse 1 - General Ulcer Measurement Start: 05/09/21 09:24 Freq: Status: Active Protocol: Activity Type Activity Date Activity User E-Sign Co-Sign Detail Recorded Client Recorded Date Recorded By Document 05/09/21 09:25 [facility] [id number] 05/09/21 09:30 [facility] Document 05/16/21 09:39 KR [id number] 05/16/21 09:40 KR 05/09/21 05/16/21 09:25 09:39 Wound Center Nurse 1 #1- L GERMAN POST OP -Combined with other wound No -Current Size (cm) - Length 4.9 4.4 -Current Size (cm) - Width 1.8 2.6 -Current Size (cm) - Depth 0.1 0.1 -Total Square Cm 8.82 11.44 -Photo Taken No -Epithelialization Small 1-33% -Undermining/Tunneling No -Circular Undermining No -Exudate Amt Medium Small -Exudate Type Serosanguineous Serosanguineous -Wound Margin Distinct, Distinct, Outline Outline Attached Attached -Granulation Amt Large (67-100%) Medium (34-66%) -Granulation Quality Red Red -Slough/Fibrin No -Necrosis Amt None Present (0 None Present (0 %) %) -Texture (Mackenzie-wound Skin Appearance) Assessed, Assessed, Scarring Scarring -Moisture (Mackenzie-wound Skin Appearance) Assessed, No Abnormality, Weeping Assessed -Color (Mackenzie-wound Skin Appearance) Assessed No Abnormality, Assessed -Temperature (Mackenzie-wound Skin No Abnormality No Abnormality Appearance) (Pt Warm) (Pt Warm) -Tenderness on Palpation (Mackenzie-wound No No Skin Appearance) -Ulcer Cleansing Rinsed/ Rinsed/ Irrigated with Irrigated with Saline Saline -Foul Odor after Cleansing No No -Anesthetic Used 5% Lidocaine 5% Lidocaine Gel Gel Lower Limb Edema Present Yes Left Calf (cm) 38 Left Ankle (cm) 25 WC - Nurse 2 - General Ulcer CM Notes Start: 05/09/21 09:24 Freq: Status: Active Protocol: Activity Type Activity Date Activity User E-Sign Co-Sign Detail Recorded Client Recorded Date Recorded By Document 05/09/21 09:43 JF [id number] 05/09/21 09:46 JF Edit Result 05/09/21 09:43 JF (1) [id number] 05/09/21 09:49 JF Document 05/16/21 11:05 PL [id number] 05/16/21 11:06 PL (1) #1- L GERMAN POST OP - Bleeding Controlled with Pressure => Pressure,Silver => Nitrate 05/09/21 05/16/21 09:43 11:05 Wound Center Nurse 2 #1- L GERMAN POST OP -Time 09:44 10:02 -Correct Patient Yes Yes -Correct Side, Site, Position Yes Yes -Correct Procedure Yes Yes -Procedure Performed Yes Yes -Type of Procedure Debridement Debridement -Clinical Debridement Subcutaneous Subcutaneous -Tissue Removed Subcutaneous Subcutaneous -Post Debridement (cm) - Length 4.8 3.0 -Post Debridement (cm) - Width 2 2.3 -Post Debridement (cm) - Depth 0.1 0.1 -Total Square (Post) (cm) 9.6 6.90 -Area of Debridement (cm) - Length 4.8 3.0 -Area of Debridement (cm) - Width 2.0 2.3 -Total Square (Area) (cm) 9.60 6.90 -Tunneling No No -Undermining/Tunneling No No -Circular Undermining No No -Wound/Ulcer Outcome Not Healed Not Healed -Ulcer Cleansing Rinsed/ Rinsed/ Irrigated with Irrigated with Saline Saline -Foul Odor after Cleansing No No -Bioengineered Tissue No No -Bleeding Controlled with Pressure,Silver Pressure Nitrate -Offloading No -Treatment Response Procedure Procedure Tolerated Well Tolerated Well -Debridement - Subq, 1st 20sq cm Yes Yes Pain Scale: 0-10 Numeric Is Patient Pain Free? Yes Yes - Nurse 3 - General Ulcer D/C NN Start: 05/09/21 09:24 Freq: Status: Active Protocol: Activity Type Activity Date Activity User E-Sign Co-Sign Detail Recorded Client Recorded Date Recorded By Document 05/09/21 10:00 [facility] [id number] 05/09/21 10:02 [facility] Document 05/16/21 10:16 KR [id number] 05/16/21 10:17 KR 05/09/21 05/16/21 10:00 10:16 Wound Care Nurse 3 #1- L GERMAN POST OP -Ulcer Cleansing Rinsed/ Rinsed/ Irrigated with Irrigated with Saline Saline -Negative Pressure Wound Therapy Discontinue -Primary Dressing Applied Promogran Promogran Alicia Matter Alicia Matter -Primary Dressing Covered/Secured with Dry Gauze & Dry Gauze, Roll Gauze, Secured with Secured with Tape Tape -Promogran Alicia Matter 1 1 Left -Compression Wrap Yahaira Wrap -Tubular Bandage Double Layer Double Layer -Size of Tubigrip Used Size E Size E -Size E ($) 2 2 Treatment Response Procedure Tolerated Well Pain Scale: 0-10 Numeric Is Patient Pain Free? Yes Yes WC - Visit Discharge Discharge Condition Stable Ambulatory Status Ambulatory Transportation Private Auto Accompanied by Assessment/Plan Assessment/Plan (1) Ulcer of left lower extremity with fat layer exposed: CODE(S): L97.922 - Non-pressure chronic ulcer of unspecified part of left lower leg with fat layer exposed (2) Edema of both lower legs: CODE(S): R60.0 - Localized edema (3) Lupus: CODE(S): M32.9 - Systemic lupus erythematosus, unspecified (4) Animal bite: CODE(S): T14.8XXA - Other injury of unspecified body region, initial encounter (5) Leg pain, left: CODE(S): M79.605 - Pain in left leg PLAN: Wound care - She completed 9 applications of Theraskin. Will now apply Alicia covered with gauze or ABD daily. Compression is a double layer tubigrip. If she needs further compression, she can apply an YAHAIRA wrap over the double layer tubigrip. Wound culture obtained on 01/03/21 which was positive for MRSA. She has completed her Linezolid. Operative cultures positive for Enterococcus avium, Enterococcus gallinarum, Turicella otitidis and Bacteroides thetaiotaomicron. Fungal cultures positive for Sara tropicalis. She completed Linezolid and Flagyl and Diflucan. Because of her history of Lupus she may have delayed wound healing. Will order ultrasound to rule out DVT of her left leg. Obtained wound cultures, depending on the results of the culture that may ne cessitate the need for treatment with antibiotics. Follow up one week.
--- NOTE | 2021-05-16 14:31 | VDLE_ITS ---
Reason For Study: calf pain Procedure LEFT This is a venous duplex using B-mode, color GSV is normal. flow and spectral Doppler. CFV is compressible, spontaneous, phasic, Exam performed in department. competent, and demonstrates normal The exam was abbreviated due to the COVID 19 augmentation. protocol. FV is compressible, spontaneous, phasic, The exam was diagnostic. competent and demonstrates normal A preliminary report was called and/or faxed augmentation. to Sierra Davila. POP V is compressible, spontaneous, phasic, competent and demonstrates normal augmentation. T/P Trunk is compressible. PTV is compressible. LT PerV is compressible. VL/Venous Duplex US, Unilateral Interpretation Summary Deep veins of the left lower extremity are patent and compressible segmentally. There is no evidence of left lower extremity deep vein thrombosis. Valvular competence appears intac t within the proximal deep venous system on the left . The left great saphenous vein appears patent a nd compressible segmentally. Ordering Physician: Sierra Davila Performed By: Kings Burrows RVT
[2021-05-23 09:37] VITALS: BP 149/74; PULSE 84; RESP 18; TEMP 36.7; BMI 36.0
--- NOTE | 2021-05-23 09:54 | PN.PCM_ITS ---
History of Present Illness Date of Service: 05/23/21 Chief Complaint: Nonhealing ulcer left anterior leg. History of Wound: Surgery 11/19/20 - Surgical preparation left anterior leg with incision and drainage and excisional debridement pig bite wound infection abscess with skin necrosis (96 cm2). Wound care - Moistened Alicia topped with gauze daily. Double tubigrip topped with PHILLIP wrap for compression. Wound culture obtained 05/16/21 which was positive for Serratia marcenscens and Anaerobic cocci. She has been started on Levaquin and Metronidazole. Left leg ultrasound on 05/16/21 was negative for DVT. She was placed on Levaquin on 12/29/20 because home health called stating that her mackenzie wound was red and warm. Wound culture 01/03/21. It showed MRSA. She was started on Linezolid. Operative cultures positive for Enterococcus avium, Enterococcus gallinarum, Turicella otitidis and Bacteroides thetaiotaomicron. Fungal cultures positive for Sara tropicalis. She completed Linezolid and Flagyl. She was started on Diflucan daily. Labs from 01/05/22 showed Total Bilirubin was 0.20, AST was 12, ALT was 23, Alkaline Phosphatase was 72, Albumin was 3.6. Today she denies any fevers, chills, nausea or vomiting. She states her appetite is good and she has increased her protein intake. Progress of Wound: Left leg ulcer is beefy pink, and is smaller in size. Her pain has improved since starting the antibiotic last Sunday. Her left leg venous ultrasound was negative for DVT. Objective Data Objective Data Vital Signs: Vital Signs Temp Pulse Resp BP 98.1 F 84 18 149/74 H 05/23/21 09:37 05/23/21 09:37 05/23/21 09:37 05/23/21 09:37 Oxygen Delivery Method Room Air Weight: 230 lb Body Mass Index (BMI) 36.0 Lab / Micro Data Micro: Microbiology 05/16/21 10:08 Wound - Leg, Left Gram Stain - Final 05/16/21 10:08 Wound - Leg, Left Wound Culture - Final Serratia marcescens 05/16/21 10:08 Wound - Leg, Left Anaerobic Culture - Final Anaerobic cocci Charges/Coding Procedures Integumentary [id number]: [id number] Blanche subq tissue 20 sq cm/< Physical Exam Const alert and oriented x3 General Appearance: cooperative HEENT normocephalic Head and Scalp: atraumatic Resp normal respiratory effort Cardio regular rate GI non-tender Extremity normal capillary refill Skin Wound Narrative: Left leg ultrasound is beefy pink, the ulcer is smaller. Edema +1 bilateral lower leg edema. Neuro CN's II-XII intact bilaterally Psych Appearance: grossly normal Debridement Note Debridement Note Wound debrided: leg ulcer Laterality: Left Type of Debridement: Excisional debridement Anesthesia Used: 5% Lidocaine Gel Depth: Down to and including healthy tissue and in the subcutaneous layer Percentage of wound debrided: 100 Instrument Used: 5mm curette Tissue Removed: Subcutaneous tissue and slough Severity: Fat Layer Exposed Amount of bleeding with debridement: Mild Bleeding Controlled with: Compression and gauze Patient tolerated procedure: Patient tolerated procedure well Post-Debridement Measurements and Additional Note: Post-Debridement Measurements/Treatment - Nurse 1 - General Ulcer Assessment Start: 05/09/21 09:24 Freq: Status: Active Protocol: RUBIA Activity Type Activity Date Activity User E-Sign Co-Sign Detail Recorded Client Recorded Date Recorded By Document 05/09/21 09:25 [facility] [id number] 05/09/21 09:30 [facility] Document 05/16/21 09:39 KR [id number] 05/16/21 09:40 KR Document 05/23/21 09:37 DL [id number] 05/23/21 09:39 DL 05/09/21 05/16/21 05/23/21 09:25 09:39 09:37 - Today's Visit Information Type of service Follow-up Visit Follow-up Visit Follow-up Visit (Physician/INTEGRITY DIRECTOR (Physician/INTEGRITY DIRECTOR (Physician/INTEGRITY DIRECTOR ) ) ) Arrival Mode Ambulatory Ambulatory Ambulatory Transfer Assistance None None Accompanied by Patient Identification Verified (Name & Yes Yes Yes ) Patient Requires Transmission-Based No No Precautions Height and Weight Body Mass Index (BMI) 36.0 36.0 36.0 BMI Classification Obese Obese Obese Vital Signs Temperature (97.8 F-99.1 F) 98.9 F 96.9 F L 98.1 F Temperature Source Temporal Temporal Temporal Pulse Rate (60-100) 78 83 84 Pulse Location Monitor Monitor Monitor Respiratory Rate (12-18) 16 18 Respiratory rate source Observation Observation Oxygen Delivery Method Room Air Blood Pressure (90/60-120/80) 146/68 H 144/76 H 149/74 H Blood Pressure Mean (mm Hg) 94 98 99 Source Monitor Monitor Monitor Position Sitting Semi-Fowlers Blood Pressure Location Left Arm Right Arm History Since Last Visit- (Skip if this is Patient's initial visit) Have you changed medications since your No No No last visit? Any new allergies or adverse reactions No No No Had a fall/change in ADL's that may No No No increase risk of falls Signs or symptoms of abuse and/or No No No neglect since last visit Have you been in the hospital since your No No No last visit? Has dressing in place as prescribed Yes Yes Yes Has compression in place as prescribed Yes Yes Yes Has offloadiing in place as prescribed N/A N/A N/A Experienced any changes in pain level or No No No management Left Footwear Regular Shoe Regular Shoe Right Footwear Regular Shoe Regular Shoe Pain Scale: 0-10 Numeric Is Patient Pain Free? Yes Yes Yes WC - Nurse 1 - General Ulcer Measurement Start: 05/09/21 09:24 Freq: Status: Active Protocol: Activity Type Activity Date Activity User E-Sign Co-Sign Detail Recorded Client Recorded Date Recorded By Document 05/09/21 09:25 [facility] [id number] 05/09/21 09:30 [facility] Document 05/16/21 09:39 KR [id number] 05/16/21 09:40 KR Document 05/23/21 09:37 DL [id number] 05/23/21 09:39 DL 05/09/21 05/16/21 05/23/21 09:25 09:39 09:37 Wound Center Nurse 1 #1- L GERMAN POST OP -Combined with other wound No -Current Size (cm) - Length 4.9 4.4 5 -Current Size (cm) - Width 1.8 2.6 1.9 -Current Size (cm) - Depth 0.1 0.1 0.1 -Total Square Cm 8.82 11.44 9.5 -Photo Taken No No -Epithelialization Small 1-33% -Undermining/Tunneling No -Circular Undermining No -Exudate Amt Medium Small Medium -Exudate Type Serosanguineous Serosanguineous Serosanguineous -Wound Margin Distinct, Distinct, Distinct, Outline Outline Outline Attached Attached Attached -Granulation Amt Large (67-100%) Medium (34-66%) Large (67-100%) -Granulation Quality Red Red Red -Slough/Fibrin No -Necrosis Amt None Present (0 None Present (0 Small (1-33%) %) %) -Necrotic Tissue Type Adherent Slough -Structure Exposed N/A -Texture (Mackenzie-wound Skin Appearance) Assessed, Assessed, Scarring Scarring Scarring -Moisture (Mackenzie-wound Skin Appearance) Assessed, No Abnormality, No Abnormality Weeping Assessed -Color (Mackenzie-wound Skin Appearance) Assessed No Abnormality, No Abnormality Assessed -Temperature (Mackenzie-wound Skin No Abnormality No Abnormality No Abnormality Appearance) (Pt Warm) (Pt Warm) (Pt Warm) -Tenderness on Palpation (Mackenzie-wound No No No Skin Appearance) -Ulcer Cleansing Rinsed/ Rinsed/ Soap and Water Irrigated with Irrigated with Saline Saline -Foul Odor after Cleansing No No No -Anesthetic Used 5% Lidocaine 5% Lidocaine 4% Lidocaine Gel Gel Solution Lower Limb Edema Present Yes Left Calf (cm) 38 38.2 Left Ankle (cm) 25 24.8 WC - Nurse 2 - General Ulcer CM Notes Start: 05/09/21 09:24 Freq: Status: Active Protocol: Activity Type Activity Date Activity User E-Sign Co-Sign Detail Recorded Client Recorded Date Recorded By Document 05/09/21 09:43 [id number] 05/09/21 09:46 JF Edit Result 05/09/21 09:43 JF (1) [id number] 05/09/21 09:49 JF Document 05/16/21 11:05 PL [id number] 05/16/21 11:06 PL Document 05/23/21 09:49 JF [id number] 05/23/21 09:50 JF (1) #1- L GERMAN POST OP - Bleeding Controlled with Pressure => Pressure,Silver => Nitrate 05/09/21 05/16/21 05/23/21 09:43 11:05 09:49 Wound Center Nurse 2 #1- L GERMAN POST OP -Time 09:44 10:02 09:49 -Correct Patient Yes Yes Yes -Correct Side, Site, Position Yes Yes Yes -Correct Procedure Yes Yes Yes -Procedure Performed Yes Yes Yes -Type of Procedure Debridement Debridement Debridement -Clinical Debridement Subcutaneous Subcutaneous Subcutaneous -Tissue Removed Subcutaneous Subcutaneous Subcutaneous -Post Debridement (cm) - Length 4.8 3.0 4.8 -Post Debridement (cm) - Width 2 2.3 2.3 -Post Debridement (cm) - Depth 0.1 0.1 0.1 -Total Square (Post) (cm) 9.6 6.90 11.04 -Area of Debridement (cm) - Length 4.8 3.0 4.8 -Area of Debridement (cm) - Width 2.0 2.3 2.3 -Total Square (Area) (cm) 9.60 6.90 11.04 -Tunneling No No No -Undermining/Tunneling No No No -Circular Undermining No No No -Wound/Ulcer Outcome Not Healed Not Healed Not Healed -Ulcer Cleansing Rinsed/ Rinsed/ Rinsed/ Irrigated with Irrigated with Irrigated with Saline Saline Saline -Foul Odor after Cleansing No No No -Bioengineered Tissue No No No -Bleeding Controlled with Pressure,Silver Pressure Pressure Nitrate -Treatment Response Procedure Procedure Procedure Tolerated Well Tolerated Well Tolerated Well -Offloading No No -Debridement - Subq, 1st 20sq cm Yes Yes Yes Pain Scale: 0-10 Numeric Is Patient Pain Free? Yes Yes Yes - Nurse 3 - General Ulcer D/C NN Start: 05/09/21 09:24 Freq: Status: Active Protocol: Activity Type Activity Date Activity User E-Sign Co-Sign Detail Recorded Client Recorded Date Recorded By Document 05/09/21 10:00 [facility] [id number] 05/09/21 10:02 [facility] Document 05/16/21 10:16 [id number] 05/16/21 10:17 KR 05/09/21 05/16/21 10:00 10:16 Wound Care Nurse 3 #1- L GERMAN POST OP -Ulcer Cleansing Rinsed/ Rinsed/ Irrigated with Irrigated with Saline Saline -Negative Pressure Wound Therapy Discontinue -Primary Dressing Applied Promogran Promogran Alicia Matter Alicia Matter -Primary Dressing Covered/Secured with Dry Gauze & Dry Gauze, Roll Gauze, Secured with Secured with Tape Tape -Promogran Alicia Matter 1 1 Left -Compression Wrap Phillip Wrap -Tubular Bandage Double Layer Double Layer -Size of Tubigrip Used Size E Size E -Size E ($) 2 2 Treatment Response Procedure Tolerated Well Pain Scale: 0-10 Numeric Is Patient Pain Free? 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 Will now apply Alicia covered with gauze or ABD daily. Compression is a double layer tubigrip topped with PHILLIP wrap over the double layer tubigrip. Wound culture obtained 05/16/21 which was positive for Serratia marcenscens and Anaerobic cocci. She has been started on Levaquin and Metronidazole. Left leg ultrasound on 05/16/21 was negative for DVT. Wound culture obtained on 01/03/21 which was positive for MRSA. She has completed her Linezolid. Operative cultures positive for Enterococcus avium, Enterococcus gallinarum, Turicella otitidis and Bacteroides thetaiotaomicron. Fungal cultures positive for Sara tropicalis. She completed Linezolid and Flagyl and Diflucan. Because of her history of Lupus she may have delayed wound healing. Follow up one week.
[2021-05-30 09:16] VITALS: BP 145/82; PULSE 84; RESP 16; TEMP 36.1; BMI 36.0
--- NOTE | 2021-05-30 12:28 | PCM.WC.PN ---
History of Present Illness Date of Service: 05/30/21 Chief Complaint: Nonhealing ulcer left anterior leg. History of Wound: Surgery 11/19/20 - Surgical preparation left anterior leg with incision and drainage and excisional debridement pig bite wound infection abscess with skin necrosis (96 cm2). Wound care - Moistened Alicia topped with gauze daily. Double tubigrip topped with PHILLIP wrap for compression. Wound culture obtained 05/16/21 which was positive for Serratia marcenscens and Anaerobic cocci. She has been started on Levaquin and Metronidazole. Left leg ultrasound on 05/16/21 was negative for DVT. She was placed on Levaquin on 12/29/20 because home health called stating that her mackenzie wound was red and warm. Wound culture 01/03/21. It showed MRSA. She was started on Linezolid. Operative cultures positive for Enterococcus avium, Enterococcus gallinarum, Turicella otitidis and Bacteroides thetaiotaomicron. Fungal cultures positive for Sara tropicalis. She completed Linezolid and Flagyl and Diflucan. Labs from 01/05/22 showed Total Bilirubin was 0.20, AST was 12, ALT was 23, Alkaline Phosphatase was 72, Albumin was 3.6. Today she denies any fevers, chills, nausea or vomiting. She states her appetite is good and she has increased her protein intake. Progress of Wound: Left leg ulcer is beefy pink, and is stable. Not much improvement in the size of the ulcer. She has +1-+2 edema. Objective Data Objective Data Vital Signs: Vital Signs Temp Pulse Resp BP 97 F L 84 16 145/82 H 05/30/21 09:16 05/30/21 09:16 05/30/21 09:16 05/30/21 09:16 Oxygen Delivery Method Room Air Weight: 230 lb Body Mass Index (BMI) 36.0 Lab / Micro Data Micro: Microbiology 05/16/21 10:08 Wound - Leg, Left Gram Stain - Final 05/16/21 10:08 Wound - Leg, Left Wound Culture - Final Serratia marcescens 05/16/21 10:08 Wound - Leg, Left Anaerobic Culture - Final Anaerobic cocci Charges/Coding Procedures Integumentary [id number]: [id number] Blanche subq tissue 20 sq cm/< Physical Exam Const alert and oriented x3 General Appearance: cooperative HEENT normocephalic Head and Scalp: atraumatic Resp normal respiratory effort Cardio regular rate Extremity normal capillary refill and no calf tenderness General Extremity: edema left lower extremity Skin Wound Narrative: Left leg ulcer is beefy pink. Stable in size. Debridement Note Debridement Note Wound debrided: leg ulcer Laterality: Left Type of Debridement: Excisional debridement Anesthesia Used: 5% Lidocaine Gel Depth: Down to and including healthy tissue and in the subcutaneous layer Percentage of wound debrided: 100 Instrument Used: 5mm curette Tissue Removed: Subcutaneous tissue and slough Severity: Fat Layer Exposed Amount of bleeding with debridement: Mild Bleeding Controlled with: Pressure and Compression and gauze Patient tolerated procedure: Patient tolerated procedure well Post-Debridement Measurements and Additional Note: Post-Debridement Measurements/Treatment - Nurse 1 - General Ulcer Assessment Start: 05/09/21 09:24 Freq: Status: Active Protocol: RUBIA Activity Type Activity Date Activity User E-Sign Co-Sign Detail Recorded Client Recorded Date Recorded By Document 05/09/21 09:25 [facility] [id number] 05/09/21 09:30 [facility] Document 05/16/21 09:39 KR [id number] 05/16/21 09:40 KR Document 05/23/21 09:37 DL [id number] 05/23/21 09:39 DL Document 05/30/21 09:16 [facility] [id number] 05/30/21 09:23 [facility] 05/09/21 05/16/21 05/23/21 09:25 09:39 09:37 - Today's Visit Information Type of service Follow-up Visit Follow-up Visit Follow-up Visit (Physician/SALES AND BUSINESS DEVELOPMENT MANAGER (Physician/SALES AND BUSINESS DEVELOPMENT MANAGER (Physician/SALES AND BUSINESS DEVELOPMENT MANAGER ) ) ) Arrival Mode Ambulatory Ambulatory Ambulatory Transfer Assistance None None Accompanied by Patient Identification Verified (Name & Yes Yes Yes ) Patient Requires Transmission-Based No No Precautions Height and Weight Body Mass Index (BMI) 36.0 36.0 36.0 BMI Classification Obese Obese Obese Vital Signs Temperature (97.8 F-99.1 F) 98.9 F 96.9 F L 98.1 F Temperature Source Temporal Temporal Temporal Pulse Rate (60-100) 78 83 84 Pulse Location Monitor Monitor Monitor Respiratory Rate (12-18) 16 18 Respiratory rate source Observation Observation Oxygen Delivery Method Room Air Blood Pressure (90/60-120/80) 146/68 H 144/76 H 149/74 H Blood Pressure Mean (mm Hg) 94 98 99 Source Monitor Monitor Monitor Position Sitting Semi-Fowlers Blood Pressure Location Left Arm Right Arm History Since Last Visit- (Skip if this is Patient's initial visit) Have you changed medications since your No No No last visit? Any new allergies or adverse reactions No No No Had a fall/change in ADL's that may No No No increase risk of falls Signs or symptoms of abuse and/or No No No neglect since last visit Have you been in the hospital since your No No No last visit? Has dressing in place as prescribed Yes Yes Yes Has compression in place as prescribed Yes Yes Yes Has offloadiing in place as prescribed N/A N/A N/A Experienced any changes in pain level or No No No management Left Footwear Regular Shoe Regular Shoe Right Footwear Regular Shoe Regular Shoe Pain Scale: 0-10 Numeric Is Patient Pain Free? Yes Yes Yes 05/30/21 09:16 WC - Today's Visit Information Type of service Follow-up Visit (Physician/SALES AND BUSINESS DEVELOPMENT MANAGER ) Arrival Mode Ambulatory Transfer Assistance None Accompanied by Patient Identification Verified (Name & Yes ) Patient Requires Transmission-Based No Precautions Height and Weight Body Mass Index (BMI) 36.0 BMI Classification Obese Vital Signs Temperature (97.8 F-99.1 F) 97 F L Temperature Source Temporal Pulse Rate (60-100) 84 Pulse Location Monitor Respiratory Rate (12-18) 16 Respiratory rate source Observation Oxygen Delivery Method Room Air Blood Pressure (90/60-120/80) 145/82 H Blood Pressure Mean (mm Hg) 103 Source Monitor Position Sitting Blood Pressure Location Left Arm History Since Last Visit- (Skip if this is Patient's initial visit) Have you changed medications since your No last visit? Any new allergies or adverse reactions No Had a fall/change in ADL's that may No increase risk of falls Signs or symptoms of abuse and/or No neglect since last visit Have you been in the hospital since your No last visit? Has dressing in place as prescribed Yes Has compression in place as prescribed Yes Has offloadiing in place as prescribed N/A Experienced any changes in pain level or No management Left Footwear Regular Shoe Right Footwear Regular Shoe Pain Scale: 0-10 Numeric Is Patient Pain Free? Yes WC - Nurse 1 - General Ulcer Measurement Start: 05/09/21 09:24 Freq: Status: Active Protocol: Activity Type Activity Date Activity User E-Sign Co-Sign Detail Recorded Client Recorded Date Recorded By Document 05/09/21 09:25 [facility] [id number] 05/09/21 09:30 [facility] Document 05/16/21 09:39 KR [id number] 05/16/21 09:40 KR Document 05/23/21 09:37 DL [id number] 05/23/21 09:39 DL Document 05/30/21 09:16 BMF [id number] 05/30/21 09:23 BMF 05/09/21 05/16/21 05/23/21 09:25 09:39 09:37 Wound Center Nurse 1 #1- L GERMAN POST OP -Combined with other wound No -Current Size (cm) - Length 4.9 4.4 5 -Current Size (cm) - Width 1.8 2.6 1.9 -Current Size (cm) - Depth 0.1 0.1 0.1 -Total Square Cm 8.82 11.44 9.5 -Photo Taken No No -Epithelialization Small 1-33% -Tunneling -Undermining/Tunneling No -Circular Undermining No -Exudate Amt Medium Small Medium -Exudate Type Serosanguineous Serosanguineous Serosanguineous -Wound Margin Distinct, Distinct, Distinct, Outline Outline Outline Attached Attached Attached -Granulation Amt Large (67-100%) Medium (34-66%) Large (67-100%) -Granulation Quality Red Red Red -Slough/Fibrin No -Necrosis Amt None Present (0 None Present (0 Small (1-33%) %) %) -Necrotic Tissue Type Adherent Slough -Structure Exposed N/A -Texture (Mackenzie-wound Skin Appearance) Assessed, Assessed, Scarring Scarring Scarring -Moisture (Mackenzie-wound Skin Appearance) Assessed, No Abnormality, No Abnormality Weeping Assessed -Color (Mackenzie-wound Skin Appearance) Assessed No Abnormality, No Abnormality Assessed -Temperature (Mackenzie-wound Skin No Abnormality No Abnormality No Abnormality Appearance) (Pt Warm) (Pt Warm) (Pt Warm) -Tenderness on Palpation (Mackenzie-wound No No No Skin Appearance) -Ulcer Cleansing Rinsed/ Rinsed/ Soap and Water Irrigated with Irrigated with Saline Saline -Foul Odor after Cleansing No No No -Anesthetic Used 5% Lidocaine 5% Lidocaine 4% Lidocaine Gel Gel Solution Lower Limb Edema Present Yes Left Calf (cm) 38 38.2 Left Ankle (cm) 25 24.8 05/30/21 09:16 Wound Center Nurse 1 #1- L GERMAN POST OP -Combined with other wound No -Current Size (cm) - Length 4.4 -Current Size (cm) - Width 2.3 -Current Size (cm) - Depth 0.1 -Total Square Cm 10.12 -Photo Taken No -Epithelialization None Present -Tunneling No -Undermining/Tunneling No -Circular Undermining No -Exudate Amt Medium -Exudate Type Serosanguineous -Wound Margin Distinct, Outline Attached -Granulation Amt Large (67-100%) -Granulation Quality [place] -Slough/Fibrin Yes -Necrosis Amt Small (1-33%) -Necrotic Tissue Type Adherent Slough -Structure Exposed -Texture (Mackenzie-wound Skin Appearance) Assessed, Scarring -Moisture (Mackenzie-wound Skin Appearance) Assessed,Dry/ Scaly -Color (Mackenzie-wound Skin Appearance) Assessed -Temperature (Mackenzie-wound Skin No Abnormality Appearance) (Pt Warm) -Tenderness on Palpation (Mackenzie-wound No Skin Appearance) -Ulcer Cleansing Soap and Water -Foul Odor after Cleansing No -Anesthetic Used 5% Lidocaine Gel Lower Limb Edema Present Yes Left Calf (cm) 39 Left Ankle (cm) 27.4 WC - Nurse 2 - General Ulcer CM Notes Start: 05/09/21 09:24 Freq: Status: Active Protocol: Activity Type Activity Date Activity User E-Sign Co-Sign Detail Recorded Client Recorded Date Recorded By Document 05/09/21 09:43 SHAQ [id number] 05/09/21 09:46 JF Edit Result 05/09/21 09:43 JF (1) [id number] 05/09/21 09:49 JF Document 05/16/21 11:05 PL [id number] 05/16/21 11:06 PL Document 05/23/21 09:49 JF [id number] 05/23/21 09:50 JF Document 05/30/21 09:43 JF [id number] 05/30/21 09:44 JF (1) #1- L GERMAN POST OP - Bleeding Controlled with Pressure => Pressure,Silver => Nitrate 05/09/21 05/16/21 05/23/21 09:43 11:05 09:49 Wound Center Nurse 2 #1- L GERMAN POST OP -Time 09:44 10:02 09:49 -Correct Patient Yes Yes Yes -Correct Side, Site, Position Yes Yes Yes -Correct Procedure Yes Yes Yes -Procedure Performed Yes Yes Yes -Type of Procedure Debridement Debridement Debridement -Clinical Debridement Subcutaneous Subcutaneous Subcutaneous -Tissue Removed Subcutaneous Subcutaneous Subcutaneous -Post Debridement (cm) - Length 4.8 3.0 4.8 -Post Debridement (cm) - Width 2 2.3 2.3 -Post Debridement (cm) - Depth 0.1 0.1 0.1 -Total Square (Post) (cm) 9.6 6.90 11.04 -Area of Debridement (cm) - Length 4.8 3.0 4.8 -Area of Debridement (cm) - Width 2.0 2.3 2.3 -Total Square (Area) (cm) 9.60 6.90 11.04 -Tunneling No No No -Undermining/Tunneling No No No -Circular Undermining No No No -Wound/Ulcer Outcome Not Healed Not Healed Not Healed -Ulcer Cleansing Rinsed/ Rinsed/ Rinsed/ Irrigated with Irrigated with Irrigated with Saline Saline Saline -Foul Odor after Cleansing No No No -Bioengineered Tissue No No No -Bleeding Controlled with Pressure,Silver Pressure Pressure Nitrate -Treatment Response Procedure Procedure Procedure Tolerated Well Tolerated Well Tolerated Well -Offloading No No -Debridement - Subq, 1st 20sq cm Yes Yes Yes Pain Scale: 0-10 Numeric Is Patient Pain Free? Yes Yes Yes 05/30/21 09:43 Wound Center Nurse 2 #1- L GERMAN POST OP -Time 09:44 -Correct Patient Yes -Correct Side, Site, Position Yes -Correct Procedure Yes -Procedure Performed Yes -Type of Procedure Debridement -Clinical Debridement Subcutaneous -Tissue Removed Subcutaneous -Post Debridement (cm) - Length 5 -Post Debridement (cm) - Width 2 -Post Debridement (cm) - Depth 0.1 -Total Square (Post) (cm) 10 -Area of Debridement (cm) - Length 5.0 -Area of Debridement (cm) - Width 2.0 -Total Square (Area) (cm) 10.00 -Tunneling No -Undermining/Tunneling No -Circular Undermining No -Wound/Ulcer Outcome Not Healed -Ulcer Cleansing Rinsed/ Irrigated with Saline -Foul Odor after Cleansing No -Bioengineered Tissue No -Bleeding Controlled with Pressure -Treatment Response Procedure Tolerated Well -Offloading No -Debridement - Subq, 1st 20sq cm Yes Pain Scale: 0-10 Numeric Is Patient Pain Free? Yes - Nurse 3 - General Ulcer D/C NN Start: 05/09/21 09:24 Freq: Status: Active Protocol: Activity Type Activity Date Activity User E-Sign Co-Sign Detail Recorded Client Recorded Date Recorded By Document 05/09/21 10:00 [facility] [id number] 05/09/21 10:02 [facility] Document 05/16/21 10:16 [id number] 05/16/21 10:17 KR Document 05/23/21 09:56 [facility] [id number] 05/23/21 09:57 [facility] Document 05/30/21 10:04 [facility] [id number] 05/30/21 10:04 F 05/09/21 05/16/21 05/23/21 10:00 10:16 09:56 Wound Care Nurse 3 #1- L GERMAN POST OP -Ulcer Cleansing Rinsed/ Rinsed/ Rinsed/ Irrigated with Irrigated with Irrigated with Saline Saline Saline -Foul Odor after Cleansing No -Negative Pressure Wound Therapy Discontinue -Primary Dressing Applied Promogran Promogran Promogran Alicia Matter Alicia Matter Alicia Matter -Primary Dressing Covered/Secured with Dry Gauze & Dry Gauze, Dry Gauze & Roll Gauze, Secured with Roll Gauze, Secured with Tape Secured with Tape Tape -Promogran Alicia Matter 1 1 1 Left -Multi-Layered Wrap Application -Compression Wrap Phillip Wrap Phillip Wrap -Tubular Bandage Double Layer Double Layer Double Layer -Size of Tubigrip Used Size E Size E Size E -Size E ($) 2 2 2 Treatment Response Procedure Procedure Tolerated Well Tolerated Well Pain Scale: 0-10 Numeric Is Patient Pain Free? Yes Yes Yes WC - Visit Discharge Discharge Condition Stable Stable Ambulatory Status Ambulatory Ambulatory Transportation Private Auto Private Auto Accompanied by Facility Type 05/30/21 10:04 Wound Care Nurse 3 #1- L GERMAN POST OP -Ulcer Cleansing Rinsed/ Irrigated with Saline -Foul Odor after Cleansing No -Negative Pressure Wound Therapy -Primary Dressing Applied Promogran Alicia Matter -Primary Dressing Covered/Secured with Dry Gauze -Promogran Alicia Matter 1 Left -Multi-Layered Wrap Application Multi-Layer Comp - Left ($) -Compression Wrap -Tubular Bandage -Size of Tubigrip Used -Size E ($) Treatment Response Procedure Tolerated Well Pain Scale: 0-10 Numeric Is Patient Pain Free? 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 Will now apply Alicia covered with gauze or ABD daily. Will place 3M 2 layer wraps for compression. This may help her edema improve. She will come in for a nurse visit at the end of the week to have the 3M 2 layer wraps change. Wound culture obtained 05/16/21 which was positive for Serratia marcenscens and Anaerobic cocci. She is taking Levaquin and Flagyl. Left leg ultrasound on 05/16/21 was negative for DVT. Wound culture obtained on 01/03/21 which was positive for MRSA. She has completed her Linezolid. Operative cultures positive for Enterococcus avium, Enterococcus gallinarum, Turicella otitidis and Bacteroides thetaiotaomicron. Fungal cultures positive for Sara tropicalis. She completed Linezolid and Flagyl and Diflucan. Because of her history of Lupus she may have delayed wound healing. Follow up one week with a nurse visit on or Sunday to have 3M 2 layer wraps change.
== END 2021-06-02 23:59 | disposition home or self-care (01) ==
LOC: WC 09:30
PROVIDERS: PCP Family Medicine Geriatric Medicine; Visit Provider Nurse Practitioner Family
DX: L97.822 Non-pressure chronic ulcer of other part of left lower leg with fat layer exposed (principal); M32.9 Systemic lupus erythematosus, unspecified; R60.0 Localized edema; S81.852S Open bite, left lower leg, sequela; W55.41 Bitten by pig
CPT/HCPCS: 11042; 29581; 87070; 87075; 87077; 87186; 87205; 93971

== ENCOUNTER 2021-06-27 09:45 | Outpatient (RCR) | payer MEDICARE, OTHER, SELFPAY ==
[2021-06-03 00:23] VITALS: BP 145/82; PULSE 84; RESP 16; TEMP 36.1; BMI 36.0
[2021-06-03 13:26] VITALS: RESP 18; TEMP 36.2; BMI 36.0
[2021-06-06 09:24] VITALS: BP 138/73; PULSE 81; RESP 16; TEMP 36.2; BMI 36.0
--- NOTE | 2021-06-06 12:16 | PN.PCM_ITS ---
History of Present Illness Date of Service: 06/06/21 Chief Complaint: Nonhealing ulcer left anterior leg. History of Wound: Surgery 11/19/20 - Surgical preparation left anterior leg with incision and drainage and excisional debridement pig bite wound infection abscess with skin necrosis (96 cm2). Wound care - Moistened Alicia topped with gauze daily. 3M 2layer wraps for compression on the left leg. Wound culture obtained 05/16/21 which was positive for Serratia marcenscens and Anaerobic cocci. She has completed the Metronidazole. She continues to take the Levofloxicin. Left leg ultrasound on 05/16/21 was negative for DVT. She was placed on Levaquin on 12/29/20 because home health called stating that her mackenzie wound was red and warm. Wound culture 01/03/21. It showed MRSA. She was started on Linezolid. Operative cultures positive for Enterococcus avium, Enterococcus gallinarum, Tu ricella otitidis and Bacteroides thetaiotaomicron. Fungal cultures positive for Sara tropicalis. She completed Linezolid and Flagyl. She was started on Diflucan daily. Labs from 01/05/22 showed Total Bilirubin was 0.20, AST was 12, ALT was 23, Alkaline Phosphatase was 72, Albumin was 3.6. Today she denies any fevers, chills, nausea or vomiting. She states her appetite is good and she has increased her protein intake. Progress of Wound: Much improvement with her ulcer this week after using the 3M 2 layer wraps. Objective Data Objective Data Vital Signs: Vital Signs Temp Pulse Resp BP 97.1 F L 81 16 138/73 H 06/06/21 09:24 06/06/21 09:24 06/06/21 09:24 06/06/21 09:24 Oxygen Delivery Method Room Air Weight: 230 lb Body Mass Index (BMI) 36.0 Charges/Coding Procedures Integumentary 111xxx-113xx: 63619 Blanche subq tissue 20 sq cm/< Physical Exam Const alert and oriented x3 General Appearance: cooperative HEENT normocephalic Head and Scalp: atraumatic Resp normal respiratory effort Cardio regular rate GI non-tender Palpation: soft Extremity normal capillary refill Extremity Narrative: +1 to +2 edema on her left lower extremity. It is much improved after using the 3M 2 layer wraps this past week. Skin Wound Narrative: Left leg ulcer is beefy pink, it is smaller in size this week. Neuro CN's II-XII intact bilaterally Psych Appearance: grossly normal Debridement Note Debridement Note Wound debrided: Leg ulcer Laterality: Left Type of Debridement: Excisional debridement Anesthesia Used: 5% Lidocaine Gel Depth: Down to and including healthy tissue Percentage of wound debrided: 100 Instrument Used: 5mm curette Tissue Removed: Nonviable tissue and slough Severity: Fat Layer Exposed Amount of bleeding with debridement: Mild Bleeding Controlled with: Pressure and Compression and gauze Patient tolerated procedure: Patient tolerated procedure well Post-Debridement Measurements and Additional Note: Post-Debridement Measurements/Treatment - Nurse 1 - General Ulcer Assessment Start: 06/03/21 13:26 Freq: Status: Active Protocol: RUBIA Activity Type Activity Date Activity User E-Sign Co-Sign Detail Recorded Client Recorded Date Recorded By Document 06/03/21 13:26 DL [id number] 06/03/21 13:30 DL Document 06/06/21 09:24 [facility] [id number] 06/06/21 09:34 BM 06/03/21 06/06/21 13:26 09:24 - Today's Visit Information Type of service Nurse-only Follow-up Visit Visit (Physician/COMPUTER CONSULTANT ) Arrival Mode Ambulatory Ambulatory Transfer Assistance None Patient Identification Verified (Name & Yes Yes ) Patient Requires Transmission-Based No Precautions Height and Weight Body Mass Index (BMI) 36.0 36.0 BMI Classification Obese Obese Vital Signs Temperature (97.8 F-99.1 F) 97.2 F L 97.1 F L Temperature Source Temporal Temporal Pulse Rate (60-100) 81 Pulse Location Monitor Respiratory Rate (12-18) 18 16 Respiratory rate source Observation Observation Oxygen Delivery Method Room Air Blood Pressure (90/60-120/80) 138/73 H Blood Pressure Mean (mm Hg) 94 Source Monitor Position Sitting Blood Pressure Location Left Arm History Since Last Visit- (Skip if this is Patient's initial visit) Have you changed medications since your No No last visit? Any new allergies or adverse reactions No No Had a fall/change in ADL's that may No No increase risk of falls Signs or symptoms of abuse and/or No No neglect since last visit Have you been in the hospital since your No No last visit? Has dressing in place as prescribed Yes Yes Has compression in place as prescribed Yes Yes Has offloadiing in place as prescribed N/A N/A Experienced any changes in pain level or No No management Left Footwear Regular Shoe Right Footwear Regular Shoe Pain Scale: 0-10 Numeric Is Patient Pain Free? Yes Yes WC - Nurse 1 - General Ulcer Measurement Start: 06/03/21 13:26 Freq: Status: Active Protocol: Activity Type Activity Date Activity User E-Sign Co-Sign Detail Recorded Client Recorded Date Recorded By Document 06/03/21 13:26 DL [id number] 06/03/21 13:30 DL Document 06/06/21 09:24 BMF [id number] 06/06/21 09:34 BMF 06/03/21 06/06/21 13:26 09:24 Wound Center Nurse 1 #1- L GERMAN POST OP -Combined with other wound No -Current Size (cm) - Length 4.4 -Current Size (cm) - Width 1.8 -Current Size (cm) - Depth 0.1 -Total Square Cm 7.92 -Date of Last Picture (Recall this 06/06/21 field) -Photo Taken No Yes -Epithelialization Small 1-33% -Tunneling No -Undermining/Tunneling No -Circular Undermining No -Exudate Amt Medium Medium -Exudate Type Serosanguineous Serosanguineous -Wound Margin Distinct, Distinct, Outline Outline Attached Attached -Granulation Amt Large (67-100%) Large (67-100%) -Granulation Quality [place] -Slough/Fibrin Yes -Necrosis Amt None Present (0 %) -Necrotic Tissue Type Adherent Slough -Structure Exposed N/A -Texture (Mackenzie-wound Skin Appearance) Scarring Assessed, Scarring -Moisture (Mackenzie-wound Skin Appearance) No Abnormality Assessed -Color (Mackenzie-wound Skin Appearance) Assessed Assessed -Temperature (Mackenzie-wound Skin No Abnormality No Abnormality Appearance) (Pt Warm) (Pt Warm) -Tenderness on Palpation (Mackenzie-wound No No Skin Appearance) -Ulcer Cleansing Soap and Water Soap and Water -Foul Odor after Cleansing No No -Anesthetic Used 5% Lidocaine Gel -Wound Comment(s) Dressing applied per Dann Womack today Lower Limb Edema Present Yes Left Calf (cm) 40 Left Ankle (cm) 25.5 WC - Nurse 2 - General Ulcer CM Notes Start: 06/03/21 13:26 Freq: Status: Active Protocol: Activity Type Activity Date Activity User E-Sign Co-Sign Detail Recorded Client Recorded Date Recorded By Document 06/06/21 09:50 [id number] 06/06/21 09:51 06/06/21 09:50 Wound Center Nurse 2 #1- L GERMAN POST OP -Time 09:50 -Correct Patient Yes -Correct Side, Site, Position Yes -Correct Procedure Yes -Procedure Performed Yes -Type of Procedure Debridement -Clinical Debridement Subcutaneous -Tissue Removed Subcutaneous -Post Debridement (cm) - Length 4.3 -Post Debridement (cm) - Width 1.8 -Post Debridement (cm) - Depth 0.1 -Total Square (Post) (cm) 7.74 -Area of Debridement (cm) - Length 4.3 -Area of Debridement (cm) - Width 1.8 -Total Square (Area) (cm) 7.74 -Tunneling No -Undermining/Tunneling No -Circular Undermining No -Wound/Ulcer Outcome Not Healed -Ulcer Cleansing Rinsed/ Irrigated with Saline -Foul Odor after Cleansing No -Bioengineered Tissue No -Bleeding Controlled with Pressure -Treatment Response Procedure Tolerated Well -Offloading No -Debridement - Subq, 1st 20sq cm Yes Pain Scale: 0-10 Numeric Is Patient Pain Free? Yes - Nurse 3 - General Ulcer D/C NN Start: 06/03/21 13:26 Freq: Status: Active Protocol: Activity Type Activity Date Activity User E-Sign Co-Sign Detail Recorded Client Recorded Date Recorded By Document 06/03/21 13:26 DL [id number] 06/03/21 13:30 DL Document 06/06/21 09:55 KR [id number] 06/06/21 09:56 KR 06/03/21 06/06/21 13:26 09:55 Vital Signs Temperature (97.8 F-99.1 F) 97.2 F L Temperature Source Temporal Respiratory Rate (12-18) 18 Respiratory rate source Observation Pain Scale: 0-10 Numeric Is Patient Pain Free? Yes Yes Wound Care Nurse 3 #1- L GERMAN POST OP -Ulcer Cleansing Soap and Water Rinsed/ Irrigated with Saline -Foul Odor after Cleansing No -Primary Dressing Applied Promogran Promogran Alicia Matter Alicia Matter -Other Dressing ABD -Primary Dressing Covered/Secured with Dry Gauze Dry Gauze, Secured with Tape -Promogran Alicia Matter 1 1 Left -Multi-Layered Wrap Application Multi-Layer Comp - Left ($) Treatment Response Procedure Tolerated Well WC - Visit Discharge Discharge Condition Stable Stable Ambulatory Status Ambulatory Ambulatory Transportation Private Auto Private Auto Assessment/Plan Assessment/Plan (1) Ulcer of left lower extremity with fat layer exposed: CODE(S): L97.922 - Non-pressure chronic ulcer of 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 Applying Mostened Alicia covered with ABD or super absorber dressing. Will place 3M 2 layer wraps for compression. The compression really improved her ulcer over the past week. Will reapply the 3M 2 layer wraps again this week. Wound culture obtained 05/16/21 which was positive for Serratia marcenscens and Anaerobic cocci. She completed Flagyl. She continues to take Levaquin. Left leg ultrasound on 05/16/21 was negative for DVT. Wound culture obtained on 01/03/21 which was positive for MRSA. She has completed her Linezolid. Operative cultures positive for Enterococcus avium, Enterococcus gallinarum, T uricella otitidis and Bacteroides thetaiotaomicron. Fungal cultures positive for Sara tropicalis. She completed Linezolid and Flagyl and Diflucan. Because of her history of Lupus she may have delayed wound healing. Follow up one week. She is to call or come in sooner if she develops any problems or concerns.
[2021-06-13 09:27] VITALS: BP 133/95; PULSE 75; RESP 16; TEMP 36.6; BMI 36.0
--- NOTE | 2021-06-13 10:32 | PN.PCM_ITS ---
History of Present Illness Date of Service: 06/13/21 Chief Complaint: Nonhealing ulcer left anterior leg. History of Wound: Surgery 11/19/20 - Surgical preparation left anterior leg with incision and drainage and excisional debridement pig bite wound infection abscess with skin necrosis (96 cm2). Wound care - Moistened Alicia topped with gauze. 3M 2layer wraps for compression on the left leg. Compression is to be left on for a week. Wound culture obtained 05/16/21 which was positive for Serratia marcenscens and Anaerobic cocci. She has completed the Metronidazole. She continues to take the Levofloxicin. Left leg ultrasound on 05/16/21 was negative for DVT. She was placed on Levaquin on 12/29/20 because home health called stating that her mackenzie wound was red and warm. Wound culture 01/03/21. It showed MRSA. She was started on Linezolid. Operative cultures positive for Enterococcus avium, Enterococcus gallinarum, Turicella otitidis and Bacteroides thetaiotaomicron. Fungal cultures positive for Sara tropicalis. She completed Linezolid and Flagyl. She was started on Diflucan daily. Labs from 01/05/22 showed Total Bilirubin was 0.20, AST was 12, ALT was 23, Alkaline Phosphatase was 72, Albumin was 3.6. Today she denies any fevers, chills, nausea or vomiting. She states her appetite is good and she has increased her protein intake. Progress of Wound: Patient states she is having much less discomfort. She is surprised how much less swelling she has in her left lower leg and ankle. Ulcer continues to improve this week after using the 3M 2 layer wraps. Objective Data Objective Data Vital Signs: Vital Signs Temp Pulse Resp BP 97.9 F 75 16 133/95 H 06/13/21 09:27 06/13/21 09:27 06/13/21 09:27 06/13/21 09:27 Oxygen Delivery Method Room Air Weight: 230 lb Body Mass Index (BMI) 36.0 Charges/Coding Procedures Integumentary 111xxx-113xx: 04091 Blanche subq tissue 20 sq cm/< Physical Exam Const alert and oriented x3 General Appearance: cooperative HEENT normocephalic Resp normal respiratory effort Extremity normal capillary refill Extremity Narrative: +1 edema left leg edema. There is much improvement with her edema using the 3M 2 layer wraps. Skin Wound Narrative: Left lower leg ulcer is beefy pink. It is smaller this week. Neuro CN's II-XII intact bilaterally Psych Appearance: well kempt Debridement Note Debridement Note Wound debrided: leg ulcer Laterality: Left Type of Debridement: Excisional debridement Anesthesia Used: 5% Lidocaine Gel Depth: Down to and including healthy tissue and in the subcutaneous layer Percentage of wound debrided: 100 Instrument Used: 5mm curette Tissue Removed: Nonviable tissue and slough Severity: Fat Layer Exposed Amount of bleeding with debridement: Mild Bleeding Controlled with: Pressure and Compression and gauze Patient tolerated procedure: Patient tolerated procedure well Post-Debridement Measurements and Additional Note: Post-Debridement Measurements/Treatment - Nurse 1 - General Ulcer Assessment Start: 06/03/21 13:26 Freq: Status: Active Protocol: RUBIA Activity Type Activity Date Activity User E-Sign Co-Sign Detail Recorded Client Recorded Date Recorded By Document 06/03/21 13:26 DL [id number] 06/03/21 13:30 DL Document 06/06/21 09:24 BM [id number] 06/06/21 09:34 BMF Document 06/13/21 09:27 [facility] [id number] 06/13/21 09:35 [facility] 06/03/21 06/06/21 06/13/21 13:26 09:24 09:27 - Today's Visit Information Type of service Nurse-only Follow-up Visit Follow-up Visit Visit (Physician/TAP AND DIE MAKER TECHNICIAN (Physician/TAP AND DIE MAKER TECHNICIAN ) ) Arrival Mode Ambulatory Ambulatory Ambulatory Transfer Assistance None None Accompanied by husb Patient Identification Verified (Name & Yes Yes Yes ) Patient Requires Transmission-Based No No Precautions Height and Weight Body Mass Index (BMI) 36.0 36.0 36.0 BMI Classification Obese Obese Obese Vital Signs Temperature (97.8 F-99.1 F) 97.2 F L 97.1 F L 97.9 F Temperature Source Temporal Temporal Temporal Pulse Rate (60-100) 81 75 Pulse Location Monitor Monitor Respiratory Rate (12-18) 18 16 16 Respiratory rate source Observation Observation Observation Oxygen Delivery Method Room Air Room Air Blood Pressure (90/60-120/80) 138/73 H 133/95 H Blood Pressure Mean (mm Hg) 94 107 Source Monitor Monitor Position Sitting Sitting Blood Pressure Location Left Arm Right Arm History Since Last Visit- (Skip if this is Patient's initial visit) Have you changed medications since your No No No last visit? Any new allergies or adverse reactions No No No Had a fall/change in ADL's that may No No No increase risk of falls Signs or symptoms of abuse and/or No No No neglect since last visit Have you been in the hospital since your No No No last visit? Has dressing in place as prescribed Yes Yes Yes Has compression in place as prescribed Yes Yes Yes Has offloadiing in place as prescribed N/A N/A N/A Experienced any changes in pain level or No No No management Left Footwear Regular Shoe Regular Shoe Right Footwear Regular Shoe Regular Shoe Pain Scale: 0-10 Numeric Is Patient Pain Free? Yes Yes Yes WC - Nurse 1 - General Ulcer Measurement Start: 06/03/21 13:26 Freq: Status: Active Protocol: Activity Type Activity Date Activity User E-Sign Co-Sign Detail Recorded Client Recorded Date Recorded By Document 06/03/21 13:26 DL [id number] 06/03/21 13:30 DL Document 06/06/21 09:24 BMF [id number] 06/06/21 09:34 BMF Document 06/13/21 09:27 [facility] [id number] 06/13/21 09:35 BMF 06/03/21 06/06/21 06/13/21 13:26 09:24 09:27 Wound Center Nurse 1 #1- L GERMAN POST OP -Combined with other wound No No -Current Size (cm) - Length 4.4 4 -Current Size (cm) - Width 1.8 1.5 -Current Size (cm) - Depth 0.1 0.1 -Total Square Cm 7.92 6.0 -Date of Last Picture (Recall this 06/06/21 06/13/21 field) -Photo Taken No Yes Yes -Epithelialization Small 1-33% Small 1-33% -Tunneling No No -Undermining/Tunneling No No -Circular Undermining No No -Exudate Amt Medium Medium Medium -Exudate Type Serosanguineous Serosanguineous Serosanguineous -Wound Margin Distinct, Distinct, Distinct, Outline Outline Outline Attached Attached Attached -Granulation Amt Large (67-100%) Large (67-100%) Large (67-100%) -Granulation Quality [place] -Slough/Fibrin Yes Yes -Necrosis Amt None Present (0 Small (1-33%) %) -Necrotic Tissue Type Adherent Slough Adherent Slough -Structure Exposed N/A -Texture (Mackenzie-wound Skin Appearance) Scarring Assessed, Assessed, Scarring Scarring -Moisture (Mackenzie-wound Skin Appearance) No Abnormality Assessed Assessed, Maceration -Color (Mackenzie-wound Skin Appearance) Assessed Assessed Assessed,Palor -Temperature (Mackenzie-wound Skin No Abnormality No Abnormality No Abnormality Appearance) (Pt Warm) (Pt Warm) (Pt Warm) -Tenderness on Palpation (Mackenzie-wound No No No Skin Appearance) -Ulcer Cleansing Soap and Water Soap and Water Soap and Water -Foul Odor after Cleansing No No No -Anesthetic Used 5% Lidocaine 5% Lidocaine Gel Gel -Wound Comment(s) Dressing applied per Dann Womack today Lower Limb Edema Present Yes Yes Right Calf (cm) 40.1 Right Ankle (cm) 26.4 Left Calf (cm) 40 Left Ankle (cm) 25.5 WC - Nurse 2 - General Ulcer CM Notes Start: 06/03/21 13:26 Freq: Status: Active Protocol: Activity Type Activity Date Activity User E-Sign Co-Sign Detail Recorded Client Recorded Date Recorded By Document 06/06/21 09:50 [id number] 06/06/21 09:51 Document 06/13/21 09:48 [id number] 06/13/21 09:51 06/06/21 06/13/21 09:50 09:48 Wound Center Nurse 2 #1- L GERMAN POST OP -Time 09:50 09:49 -Correct Patient Yes Yes -Correct Side, Site, Position Yes Yes -Correct Procedure Yes Yes -Procedure Performed Yes Yes -Type of Procedure Debridement Debridement -Clinical Debridement Subcutaneous Subcutaneous -Tissue Removed Subcutaneous Subcutaneous -Post Debridement (cm) - Length 4.3 3.7 -Post Debridement (cm) - Width 1.8 1.6 -Post Debridement (cm) - Depth 0.1 0.1 -Total Square (Post) (cm) 7.74 5.92 -Area of Debridement (cm) - Length 4.3 3.7 -Area of Debridement (cm) - Width 1.8 1.6 -Total Square (Area) (cm) 7.74 5.92 -Tunneling No No -Undermining/Tunneling No No -Circular Undermining No No -Wound/Ulcer Outcome Not Healed Not Healed -Ulcer Cleansing Rinsed/ Rinsed/ Irrigated with Irrigated with Saline Saline -Foul Odor after Cleansing No No -Bioengineered Tissue No No -Bleeding Controlled with Pressure Pressure -Treatment Response Procedure Procedure Tolerated Well Tolerated Well -Offloading No No -Debridement - Subq, 1st 20sq cm Yes Yes Pain Scale: 0-10 Numeric Is Patient Pain Free? Yes Yes WC - Nurse 3 - General Ulcer D/C NN Start: 06/03/21 13:26 Freq: Status: Active Protocol: Activity Type Activity Date Activity User E-Sign Co-Sign Detail Recorded Client Recorded Date Recorded By Document 06/03/21 13:26 DL [id number] 06/03/21 13:30 DL Document 06/06/21 09:55 KR [id number] 06/06/21 09:56 KR Edit Result 06/06/21 09:55 KR (1) [id number] 06/07/21 06:53 PL Document 06/13/21 10:05 BMF [id number] 06/13/21 10:06 BMF (1) Left - Multi-Layered Wrap Application => Multi-Layer Comp - => Left ($) 06/03/21 06/06/21 06/13/21 13:26 09:55 10:05 Vital Signs Temperature (97.8 F-99.1 F) 97.2 F L Temperature Source Temporal Respiratory Rate (12-18) 18 Respiratory rate source Observation Pain Scale: 0-10 Numeric Is Patient Pain Free? Yes Yes Yes Wound Care Nurse 3 #1- L GERMAN POST OP -Ulcer Cleansing Soap and Water Rinsed/ Rinsed/ Irrigated with Irrigated with Saline Saline -Foul Odor after Cleansing No No -Primary Dressing Applied Promogran Promogran Promogran Alicia Matter Alicia Matter Alicia Matter -Other Dressing ABD drsg per kr telegraph repeater installer -Primary Dressing Covered/Secured with Dry Gauze Dry Gauze, Secured with Tape -Promogran Alicia Matter 1 1 1 Left -Multi-Layered Wrap Application Multi-Layer Multi-Layer Multi-Layer Comp - Left ($) Comp - Left ($) Comp - Left ($) -Other 3m per kr telegraph repeater installer Treatment Response Procedure Procedure Tolerated Well Tolerated Well WC - Visit Discharge Discharge Condition Stable Stable Stable Ambulatory Status Ambulatory Ambulatory Ambulatory Transportation Private Auto Private Auto Private Auto Accompanied by Assessment/Plan Assessment/Plan (1) Ulcer of left lower extremity with fat layer exposed: CODE(S): L97.922 - Non-pressure chronic ulcer of 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 Applying moistened Alicia covered with ABD or super absorber dressing. Will place 3M 2 layer wraps for compression. The compression really improved her ulcer over the past week. Will reapply the 3M 2 layer wraps again this week. Wound culture obtained 05/16/21 which was positive for Serratia marcenscens and Anaerobic cocci. She completed Flagyl. She continues to take Levaquin. Left leg ultrasound on 05/16/21 was negative for DVT. Wound culture obtained on 01/03/21 which was positive for MRSA. She has completed her Linezolid. Operative cultures positive for Enterococcus avium, Enterococcus gallinarum, Turicella otitidis and Bacteroides thetaiotaomicron. Fungal cultures positive for Sara tropicalis. She completed Linezolid and Flagyl and Diflucan. Because of her history of Lupus she may have delayed wound healing. Follow up one week. She is to call or come in sooner if she develops any problems or concerns. If she starts to have discomfort with the 3M 2 layer wr aps, she may call to come in for a nurse visit at the end of the week to have them changed.
[2021-06-17 10:28] VITALS: BP 143/66; PULSE 78; TEMP 36.1; BMI 36.0
[2021-06-20 09:38] VITALS: BP 135/77; PULSE 77; RESP 20; TEMP 36.7; BMI 36.0
--- NOTE | 2021-06-20 13:00 | PCM.WC.PN ---
History of Present Illness Date of Service: 06/20/21 Chief Complaint: Nonhealing ulcer left anterior leg. History of Wound: Surgery 11/19/20 - Surgical preparation left anterior leg with incision and drainage and excisional debridement pig bite wound infection abscess with skin necrosis (96 cm2). Wound care - Moistened Nuha topped with gauze. 3M 2layer wraps for compression on the left leg. Compression is to be left on for a week. Wound culture obtained 05/16/21 which was positive for Serratia marcenscens and Anaerobic cocci. She has completed the Metronidazole. She continues to take the Levofloxicin. Left leg ultrasound on 05/16/21 was negative for DVT. She was placed on Levaquin on 12/29/20 because home health called stating that her mackenzie wound was red and warm. Wound culture 01/03/21. It showed MRSA. She was started on Linezolid. Operative cultures positive for Enterococcus avium, Enterococcus gallinarum, Turicella otitidis and Bacteroides thetaiotaomicron. Fungal cultures positive for Sara tropicalis. She completed Linezolid and Flagyl. She was started on Diflucan daily. Labs from 01/05/22 showed Total Bilirubin was 0.20, AST was 12, ALT was 23, Alkaline Phosphatase was 72, Albumin was 3.6. Today she denies any fevers, chills, nausea or vomiting. She states her appetite is good and she has increased her protein intake. Progress of Wound: Ulcer is stable. She has more edema this week than last week. Unsure if the 3 M 2 layer wraps were snug enough since she has more edema present today. Objective Data Objective Data Vital Signs: Vital Signs Temp Pulse Resp BP 98.1 F 77 20 H 135/77 H 06/20/21 09:38 06/20/21 09:38 06/20/21 09:38 06/20/21 09:38 Oxygen Delivery Method Room Air Weight: 230 lb Body Mass Index (BMI) 36.0 Charges/Coding Procedures Integumentary 111xxx-113xx: 14488 Global Visit Physical Exam Const alert and oriented x3 General Appearance: cooperative HEENT normocephalic Resp normal respiratory effort Cardio regular rate Extremity normal capillary refill Extremity Narrative: +2 pitting edema of left lower leg and ankle. Skin Wound Narrative: Left leg ulcer is beefy pink. It is slightly smaller this week. Neuro CN's II-XII intact bilaterally Psych Appearance: well kempt Debridement Note Debridement Note Wound debrided: Leg ulcer Laterality: Left Type of Debridement: Excisional debridement Anesthesia Used: 5% Lidocaine Gel Depth: Down to and including healthy tissue and in the subcutaneous layer Percentage of wound debrided: 100 Instrument Used: 5mm curette Tissue Removed: Nonviable tissue and slough Severity: Fat Layer Exposed Bleeding Controlled with: Pressure Post-Debridement Measurements and Additional Note: Post-Debridement Measurements/Treatment - Nurse 1 - General Ulcer Assessment Start: 06/03/21 13:26 Freq: Status: Active Protocol: [email or web address] Activity Type Activity Date Activity User E-Sign Co-Sign Detail Recorded Client Recorded Date Recorded By Document 06/03/21 13:26 DL [id number] 06/03/21 13:30 DL Document 06/06/21 09:24 BMF [id number] 06/06/21 09:34 BMF Document 06/13/21 09:27 BMF [id number] 06/13/21 09:35 [facility] Document 06/17/21 10:28 AK [id number] 06/17/21 10:30 AK Document 06/20/21 09:38 DL [id number] 06/20/21 09:44 DL 06/03/21 06/06/21 06/13/21 13:26 09:24 09:27 - Today's Visit Information Type of service Nurse-only Follow-up Visit Follow-up Visit Visit (Physician/CORE WINDING OPERATOR (Physician/CORE WINDING OPERATOR ) ) Arrival Mode Ambulatory Ambulatory Ambulatory Transfer Assistance None None Accompanied by husb Patient Identification Verified (Name & Yes Yes Yes ) Patient Requires Transmission-Based No No Precautions Safety Precautions Height and Weight Body Mass Index (BMI) 36.0 36.0 36.0 BMI Classification Obese Obese Obese Vital Signs Temperature (97.8 F-99.1 F) 97.2 F L 97.1 F L 97.9 F Temperature Source Temporal Temporal Temporal Pulse Rate (60-100) 81 75 Pulse Location Monitor Monitor Respiratory Rate (12-18) 18 16 16 Respiratory rate source Observation Observation Observation Oxygen Delivery Method Room Air Room Air Blood Pressure (90/60-120/80) 138/73 H 133/95 H Blood Pressure Mean (mm Hg) 94 107 Source Monitor Monitor Position Sitting Sitting Blood Pressure Location Left Arm Right Arm History Since Last Visit- (Skip if this is Patient's initial visit) Have you changed medications since your No No No last visit? Any new allergies or adverse reactions No No No Had a fall/change in ADL's that may No No No increase risk of falls Signs or symptoms of abuse and/or No No No neglect since last visit Have you been in the hospital since your No No No last visit? Has dressing in place as prescribed Yes Yes Yes Has compression in place as prescribed Yes Yes Yes Has offloadiing in place as prescribed N/A N/A N/A Experienced any changes in pain level or No No No management Left Footwear Regular Shoe Regular Shoe Right Footwear Regular Shoe Regular Shoe Pain Scale: 0-10 Numeric Is Patient Pain Free? Yes Yes Yes 06/17/21 06/20/21 10:28 09:38 WC - Today's Visit Information Type of service Follow-up Visit Follow-up Visit (Physician/CORE WINDING OPERATOR (Physician/CORE WINDING OPERATOR ) ) Arrival Mode Ambulatory Ambulatory Transfer Assistance None Accompanied by Patient Identification Verified (Name & Yes Yes ) Patient Requires Transmission-Based Yes No Precautions Safety Precautions NA Height and Weight Body Mass Index (BMI) 36.0 36.0 BMI Classification Obese Obese Vital Signs Temperature (97.8 F-99.1 F) 97 F L 98.1 F Temperature Source Temporal Temporal Pulse Rate (60-100) 78 77 Pulse Location Monitor Monitor Respiratory Rate (12-18) 20 H Respiratory rate source Observation Oxygen Delivery Method Blood Pressure (90/60-120/80) 143/66 H 135/77 H Blood Pressure Mean (mm Hg) 91 96 Source Monitor Position Blood Pressure Location History Since Last Visit- (Skip if this is Patient's initial visit) Have you changed medications since your No No last visit? Any new allergies or adverse reactions No No Had a fall/change in ADL's that may No No increase risk of falls Signs or symptoms of abuse and/or No No neglect since last visit Have you been in the hospital since your No No last visit? Has dressing in place as prescribed Yes Yes Has compression in place as prescribed Yes Yes Has offloadiing in place as prescribed N/A N/A Experienced any changes in pain level or No No management Left Footwear Regular Shoe Regular Shoe Right Footwear Regular Shoe Regular Shoe Pain Scale: 0-10 Numeric Is Patient Pain Free? Yes Yes WC - Nurse 1 - General Ulcer Measurement Start: 06/03/21 13:26 Freq: Status: Active Protocol: Activity Type Activity Date Activity User E-Sign Co-Sign Detail Recorded Client Recorded Date Recorded By Document 06/03/21 13:26 DL [id number] 06/03/21 13:30 DL Document 06/06/21 09:24 BMF [id number] 06/06/21 09:34 BMF Document 06/13/21 09:27 BMF [id number] 06/13/21 09:35 BMF Document 06/20/21 09:38 DL [id number] 06/20/21 09:44 DL 06/03/21 06/06/21 06/13/21 13:26 09:24 09:27 Wound Center Nurse 1 #1- L GERMAN POST OP -Combined with other wound No No -Current Size (cm) - Length 4.4 4 -Current Size (cm) - Width 1.8 1.5 -Current Size (cm) - Depth 0.1 0.1 -Total Square Cm 7.92 6.0 -Date of Last Picture (Recall this 06/06/21 06/13/21 field) -Photo Taken No Yes Yes -Epithelialization Small 1-33% Small 1-33% -Tunneling No No -Undermining/Tunneling No No -Circular Undermining No No -Exudate Amt Medium Medium Medium -Exudate Type Serosanguineous Serosanguineous Serosanguineous -Wound Margin Distinct, Distinct, Distinct, Outline Outline Outline Attached Attached Attached -Granulation Amt Large (67-100%) Large (67-100%) Large (67-100%) -Granulation Quality [place] -Slough/Fibrin Yes Yes -Necrosis Amt None Present (0 Small (1-33%) %) -Necrotic Tissue Type Adherent Slough Adherent Slough -Structure Exposed N/A -Texture (Mackenzie-wound Skin Appearance) Scarring Assessed, Assessed, Scarring Scarring -Moisture (Mackenzie-wound Skin Appearance) No Abnormality Assessed Assessed, Maceration -Color (Mackenzie-wound Skin Appearance) Assessed Assessed Assessed,Palor -Temperature (Mackenzie-wound Skin No Abnormality No Abnormality No Abnormality Appearance) (Pt Warm) (Pt Warm) (Pt Warm) -Tenderness on Palpation (Mackenzie-wound No No No Skin Appearance) -Ulcer Cleansing Soap and Water Soap and Water Soap and Water -Foul Odor after Cleansing No No No -Anesthetic Used 5% Lidocaine 5% Lidocaine Gel Gel -Wound Comment(s) Dressing applied per Dann Womack today Lower Limb Edema Present Yes Yes Right Calf (cm) 40.1 Right Ankle (cm) 26.4 Left Calf (cm) 40 Left Ankle (cm) 25.5 06/20/21 09:38 Wound Center Nurse 1 #1- L GERMAN POST OP -Combined with other wound No -Current Size (cm) - Length 3.7 -Current Size (cm) - Width 1.3 -Current Size (cm) - Depth 0.2 -Total Square Cm 4.81 -Date of Last Picture (Recall this field) -Photo Taken No -Epithelialization Small 1-33% -Tunneling No -Undermining/Tunneling No -Circular Undermining No -Exudate Amt Medium -Exudate Type Serosanguineous -Wound Margin Distinct, Outline Attached -Granulation Amt Large (67-100%) -Granulation Quality [place] -Slough/Fibrin Yes -Necrosis Amt Small (1-33%) -Necrotic Tissue Type Adherent Slough -Structure Exposed -Texture (Mackenzie-wound Skin Appearance) Assessed, Scarring -Moisture (Mackenzie-wound Skin Appearance) Assessed -Color (Mackenzie-wound Skin Appearance) Assessed -Temperature (Mackenzie-wound Skin No Abnormality Appearance) (Pt Warm) -Tenderness on Palpation (Mackenzie-wound No Skin Appearance) -Ulcer Cleansing Soap and Water -Foul Odor after Cleansing No -Anesthetic Used 5% Lidocaine Gel -Wound Comment(s) Lower Limb Edema Present Yes Right Calf (cm) Right Ankle (cm) Left Calf (cm) 36 Left Ankle (cm) 25.2 WC - Nurse 2 - General Ulcer CM Notes Start: 06/03/21 13:26 Freq: Status: Active Protocol: Activity Type Activity Date Activity User E-Sign Co-Sign Detail Recorded Client Recorded Date Recorded By Document 06/06/21 09:50 HSAQ [id number] 06/06/21 09:51 Document 06/13/21 09:48 [id number] 06/13/21 09:51 Document 06/20/21 09:56 [id number] 06/20/21 10:02 06/06/21 06/13/21 06/20/21 09:50 09:48 09:56 Wound Center Nurse 2 #1- L GERMAN POST OP -Time 09:50 09:49 09:56 -Correct Patient Yes Yes Yes -Correct Side, Site, Position Yes Yes Yes -Correct Procedure Yes Yes Yes -Procedure Performed Yes Yes Yes -Type of Procedure Debridement Debridement Debridement -Clinical Debridement Subcutaneous Subcutaneous Subcutaneous -Tissue Removed Subcutaneous Subcutaneous Subcutaneous -Post Debridement (cm) - Length 4.3 3.7 3.5 -Post Debridement (cm) - Width 1.8 1.6 1.3 -Post Debridement (cm) - Depth 0.1 0.1 0.1 -Total Square (Post) (cm) 7.74 5.92 4.55 -Area of Debridement (cm) - Length 4.3 3.7 3.5 -Area of Debridement (cm) - Width 1.8 1.6 1.3 -Total Square (Area) (cm) 7.74 5.92 4.55 -Tunneling No No No -Undermining/Tunneling No No No -Circular Undermining No No No -Wound/Ulcer Outcome Not Healed Not Healed Not Healed -Ulcer Cleansing Rinsed/ Rinsed/ Rinsed/ Irrigated with Irrigated with Irrigated with Saline Saline Saline -Foul Odor after Cleansing No No No -Bioengineered Tissue No No No -Bleeding Controlled with Pressure Pressure Pressure -Treatment Response Procedure Procedure Procedure Tolerated Well Tolerated Well Tolerated Well -Offloading No No No -Debridement - Subq, 1st 20sq cm Yes Yes Yes Pain Scale: 0-10 Numeric Is Patient Pain Free? Yes Yes Yes WC - Nurse 3 - General Ulcer D/C NN Start: 06/03/21 13:26 Freq: Status: Active Protocol: Activity Type Activity Date Activity User E-Sign Co-Sign Detail Recorded Client Recorded Date Recorded By Document 06/03/21 13:26 DL [id number] 06/03/21 13:30 DL Document 06/06/21 09:55 KR [id number] 04/04/22 09:56 KR Edit Result 06/06/21 09:55 KR (1) [id number] 06/07/21 06:53 PL Document 06/13/21 10:05 [facility] [id number] 06/13/21 10:06 BMF Document 06/17/21 10:28 AK [id number] 06/17/21 10:30 AK Document 06/20/21 10:14 [facility] [id number] 06/20/21 10:14 BMF (1) Left - Multi-Layered Wrap Application => Multi-Layer Comp - => Left ($) 06/03/21 06/06/21 06/13/21 13:26 09:55 10:05 Vital Signs Temperature (97.8 F-99.1 F) 97.2 F L Temperature Source Temporal Pulse Rate (60-100) Pulse Location Respiratory Rate (12-18) 18 Respiratory rate source Observation Blood Pressure (90/60-120/80) Blood Pressure Mean (mm Hg) Source Pain Scale: 0-10 Numeric Is Patient Pain Free? Yes Yes Yes Wound Care Nurse 3 #1- L GERMAN POST OP -Ulcer Cleansing Soap and Water Rinsed/ Rinsed/ Irrigated with Irrigated with Saline Saline -Foul Odor after Cleansing No No -Negative Pressure Wound Therapy -Primary Dressing Applied Promogran Promogran Promogran Nuha Matter Nuha Matter Nuha Matter -Other Dressing ABD drsg per kr tuck pointer -Primary Dressing Covered/Secured with Dry Gauze Dry Gauze, Secured with Tape -Optilok 6.5x10 -Promogran Nuha Matter 1 1 1 Left -Lotion applied to leg before compression wrap -Multi-Layered Wrap Application Multi-Layer Multi-Layer Multi-Layer Comp - Left ($) Comp - Left ($) Comp - Left ($) -Other 3m per kr tuck pointer Treatment Response Procedure Procedure Tolerated Well Tolerated Well WC - Visit Discharge Discharge Condition Stable Stable Stable Ambulatory Status Ambulatory Ambulatory Ambulatory Transportation Private Auto Private Auto Private Auto Accompanied by Medication Reconcilliation completed & provided to patient/care provider Clinical Summary of Care Provided 06/17/21 06/20/21 10:28 10:14 Vital Signs Temperature (97.8 F-99.1 F) 97 F L Temperature Source Temporal Pulse Rate (60-100) 78 Pulse Location Monitor Respiratory Rate (12-18) Respiratory rate source Blood Pressure (90/60-120/80) 143/66 H Blood Pressure Mean (mm Hg) 91 Source Monitor Pain Scale: 0-10 Numeric Is Patient Pain Free? Yes Yes Wound Care Nurse 3 #1- L GERMAN POST OP -Ulcer Cleansing Rinsed/ Rinsed/ Irrigated with Irrigated with Saline Saline -Foul Odor after Cleansing No No -Negative Pressure Wound Therapy N/A -Primary Dressing Applied Promogran Optilok 6.5x10, Nuha Matter Other -Other Dressing nuha -Primary Dressing Covered/Secured with -Optilok 6.5x10 1 -Promogran Nuha Matter 1 Left -Lotion applied to leg before No compression wrap -Multi-Layered Wrap Application Multi-Layer Multi-Layer Comp - Left ($) Comp - Left ($) -Other Treatment Response Procedure Tolerated Well WC - Visit Discharge Discharge Condition Stable Stable Ambulatory Status Ambulatory Ambulatory Transportation Private Auto Private Auto Accompanied by Medication Reconcilliation completed & Yes provided to patient/care provider Clinical Summary of Care Provided Yes Assessment/Plan Assessment/Plan (1) Ulcer of left lower extremity with fat layer exposed: CODE(S): L97.922 - Non-pressure chronic ulcer of 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 Applying moistened Nuha covered with ABD or super absorber dressing. Will place 3M 2 layer wraps for compression. The compression really improved her ulcer over the past week. Will reapply the 3M 2 layer wraps again this week. Wound culture obtained 05/16/21 which was positive for Serratia marcenscens and Anaerobic cocci. She completed Flagyl and the Levaquin. Left leg ultrasound on 05/16/21 was negative for DVT. Wound culture obtained on 01/03/21 which was positive for MRSA. She has completed her Linezolid. Operative cultures positive for Enterococcus avium, Enterococcus gallinarum, Turicella otitidis and Bacteroides thetaiotaomicron. Fungal cultures positive for Sara tropicalis. She completed Linezolid and Flagyl and Diflucan. Because of her history of Lupus she may have delayed wound healing. Follow up one week. She is to call or come in sooner if she develops any problems or concerns. If she starts to have discomfort with the 3M 2 layer wraps, she may call to come in for a nurse visit at the end of the week to have them changed.
[2021-06-27 09:41] VITALS: BP 159/89; PULSE 82; RESP 20; TEMP 36.8; BMI 36.0
--- NOTE | 2021-06-27 10:54 | PCM.WC.PN ---
History of Present Illness Date of Service: 06/27/21 Chief Complaint: Nonhealing ulcer left anterior leg. History of Wound: Surgery 11/19/20 - Surgical preparation left anterior leg with incision and drainage and excisional debridement pig bite wound infection abscess with skin necrosis (96 cm2). Wound care - Moistened Nuha topped with a super absorber gauze. 3M 2layer wraps for compression on the left leg. Compression is to be left on for a week. Wound culture obtained 05/16/21 which was positive for Serratia marcenscens and Anaerobic cocci. She has completed the Metronidazole. She continues to take the Levofloxicin. Left leg ultrasound on 05/16/21 was negative for DVT. She was placed on Levaquin on 12/29/20 because home health called stating that her mackenzie wound was red and warm. Wound culture 01/03/21. It showed MRSA. She was started on Linezolid. Operative cultures positive for Enterococcus avium, Enterococcus gallinarum, Turicella otitidis and Bacteroides thetaiotaomicron. Fungal cultures positive for Sara tropicalis. She completed Linezolid and Flagyl. She was started on Diflucan daily. Labs from 01/05/22 showed Total Bilirubin was 0.20, AST was 12, ALT was 23, Alkaline Phosphatase was 72, Albumin was 3.6. Today she denies any fevers, chills, nausea or vomiting. She states her appetite is good and she has increased her protein intake. Progress of Wound: Ulcer is improved this week, beefy pink. There is less edema present. The 3M 2 layer wraps were placed well this week. Objective Data Objective Data Vital Signs: Vital Signs Temp Pulse Resp BP 98.2 F 82 20 H 159/89 H 06/27/21 09:41 06/27/21 09:41 06/27/21 09:41 06/27/21 09:41 Oxygen Delivery Method Room Air Weight: 230 lb Body Mass Index (BMI) 36.0 Charges/Coding Procedures Integumentary 111xxx-113xx: 26020 Blanche subq tissue 20 sq cm/< Physical Exam Const alert and oriented x3 General Appearance: cooperative HEENT normocephalic Resp normal respiratory effort Cardio regular rate Extremity Extremity Narrative: +1 edema Skin Wound Narrative: Ulcer is improved this week, beefy pink. There is less edema present. Neuro CN's II-XII intact bilaterally Psych Appearance: grossly normal Debridement Note Debridement Note Wound debrided: leg ulcer Laterality: Left Type of Debridement: Excisional debridement Anesthesia Used: 5% Lidocaine Gel Depth: Down to and including healthy tissue and in the subcutaneous layer Percentage of wound debrided: 100 Instrument Used: 5mm curette Tissue Removed: Nonviable tissue and slough Severity: Fat Layer Exposed Amount of bleeding with debridement: Mild Bleeding Controlled with: Pressure Patient tolerated procedure: Patient tolerated procedure well Post-Debridement Measurements and Additional Note: Post-Debridement Measurements/Treatment - Nurse 1 - General Ulcer Assessment Start: 06/03/21 13:26 Freq: Status: Active Protocol: GIORGICryptoSealKristian Activity Type Activity Date Activity User E-Sign Co-Sign Detail Recorded Client Recorded Date Recorded By Document 06/03/21 13:26 DL [id number] 06/03/21 13:30 DL Document 06/06/21 09:24 BMF [id number] 06/06/21 09:34 BMF Document 06/13/21 09:27 BMF [id number] 06/13/21 09:35 BM Document 06/17/21 10:28 AK [id number] 06/17/21 10:30 AK Document 06/20/21 09:38 DL [id number] 06/20/21 09:44 DL Document 06/27/21 09:41 DL [id number] 06/27/21 09:48 DL 06/03/21 06/06/21 06/13/21 13:26 09:24 09:27 - Today's Visit Information Type of service Nurse-only Follow-up Visit Follow-up Visit Visit (Physician/RN HOSPITAL (Physician/RN HOSPITAL ) ) Arrival Mode Ambulatory Ambulatory Ambulatory Transfer Assistance None None Accompanied by husb Patient Identification Verified (Name & Yes Yes Yes ) Patient Requires Transmission-Based No No Precautions Safety Precautions Height and Weight Body Mass Index (BMI) 36.0 36.0 36.0 BMI Classification Obese Obese Obese Vital Signs Temperature (97.8 F-99.1 F) 97.2 F L 97.1 F L 97.9 F Temperature Source Temporal Temporal Temporal Pulse Rate (60-100) 81 75 Pulse Location Monitor Monitor Respiratory Rate (12-18) 18 16 16 Respiratory rate source Observation Observation Observation Oxygen Delivery Method Room Air Room Air Blood Pressure (90/60-120/80) 138/73 H 133/95 H Blood Pressure Mean (mm Hg) 94 107 Source Monitor Monitor Position Sitting Sitting Blood Pressure Location Left Arm Right Arm History Since Last Visit- (Skip if this is Patient's initial visit) Have you changed medications since your No No No last visit? Any new allergies or adverse reactions No No No Had a fall/change in ADL's that may No No No increase risk of falls Signs or symptoms of abuse and/or No No No neglect since last visit Have you been in the hospital since your No No No last visit? Has dressing in place as prescribed Yes Yes Yes Has compression in place as prescribed Yes Yes Yes Has offloadiing in place as prescribed N/A N/A N/A Experienced any changes in pain level or No No No management Left Footwear Regular Shoe Regular Shoe Right Footwear Regular Shoe Regular Shoe Pain Scale: 0-10 Numeric Is Patient Pain Free? Yes Yes Yes 06/17/21 06/20/21 06/27/21 10:28 09:38 09:41 WC - Today's Visit Information Type of service Follow-up Visit Follow-up Visit Follow-up Visit (Physician/RN HOSPITAL (Physician/RN HOSPITAL (Physician/RN HOSPITAL ) ) ) Arrival Mode Ambulatory Ambulatory Ambulatory Transfer Assistance None None Accompanied by Patient Identification Verified (Name & Yes Yes Yes ) Patient Requires Transmission-Based Yes No No Precautions Safety Precautions NA Height and Weight Body Mass Index (BMI) 36.0 36.0 36.0 BMI Classification Obese Obese Obese Vital Signs Temperature (97.8 F-99.1 F) 97 F L 98.1 F 98.2 F Temperature Source Temporal Temporal Temporal Pulse Rate (60-100) 78 77 82 Pulse Location Monitor Monitor Monitor Respiratory Rate (12-18) 20 H 20 H Respiratory rate source Observation Observation Oxygen Delivery Method Blood Pressure (90/60-120/80) 143/66 H 135/77 H 159/89 H Blood Pressure Mean (mm Hg) 91 96 112 Source Monitor Monitor Position Blood Pressure Location History Since Last Visit- (Skip if this is Patient's initial visit) Have you changed medications since your No No No last visit? Any new allergies or adverse reactions No No No Had a fall/change in ADL's that may No No No increase risk of falls Signs or symptoms of abuse and/or No No No neglect since last visit Have you been in the hospital since your No No last visit? Has dressing in place as prescribed Yes Yes Yes Has compression in place as prescribed Yes Yes Yes Has offloadiing in place as prescribed N/A N/A N/A Experienced any changes in pain level or No No management Left Footwear Regular Shoe Regular Shoe Regular Shoe Right Footwear Regular Shoe Regular Shoe Regular Shoe Pain Scale: 0-10 Numeric Is Patient Pain Free? Yes Yes Yes WC - Nurse 1 - General Ulcer Measurement Start: 06/03/21 13:26 Freq: Status: Active Protocol: Activity Type Activity Date Activity User E-Sign Co-Sign Detail Recorded Client Recorded Date Recorded By Document 06/03/21 13:26 DL [id number] 06/03/21 13:30 DL Document 06/06/21 09:24 BMF [id number] 06/06/21 09:34 BMF Document 06/13/21 09:27 BMF [id number] 06/13/21 09:35 BMF Document 06/20/21 09:38 DL [id number] 06/20/21 09:44 DL Document 06/27/21 09:41 DL [id number] 06/27/21 09:48 DL 06/03/21 06/06/21 06/13/21 13:26 09:24 09:27 Wound Center Nurse 1 #1- L GERMAN POST OP -Combined with other wound No No -Current Size (cm) - Length 4.4 4 -Current Size (cm) - Width 1.8 1.5 -Current Size (cm) - Depth 0.1 0.1 -Total Square Cm 7.92 6.0 -Date of Last Picture (Recall this 06/06/21 06/13/21 field) -Photo Taken No Yes Yes -Epithelialization Small 1-33% Small 1-33% -Tunneling No No -Undermining/Tunneling No No -Circular Undermining No No -Exudate Amt Medium Medium Medium -Exudate Type Serosanguineous Serosanguineous Serosanguineous -Wound Margin Distinct, Distinct, Distinct, Outline Outline Outline Attached Attached Attached -Granulation Amt Large (67-100%) Large (67-100%) Large (67-100%) -Granulation Quality Jarales Jarales Jarales -Slough/Fibrin Yes Yes -Necrosis Amt None Present (0 Small (1-33%) %) -Necrotic Tissue Type Adherent Slough Adherent Slough -Structure Exposed N/A -Texture (Mackenzie-wound Skin Appearance) Scarring Assessed, Assessed, Scarring Scarring -Moisture (Mackenzie-wound Skin Appearance) No Abnormality Assessed Assessed, Maceration -Color (Mackenzie-wound Skin Appearance) Assessed Assessed Assessed,Palor -Temperature (Mackenzie-wound Skin No Abnormality No Abnormality No Abnormality Appearance) (Pt Warm) (Pt Warm) (Pt Warm) -Tenderness on Palpation (Mackenzie-wound No No No Skin Appearance) -Ulcer Cleansing Soap and Water Soap and Water Soap and Water -Foul Odor after Cleansing No No No -Anesthetic Used 5% Lidocaine 5% Lidocaine Gel Gel -Wound Comment(s) Dressing applied per Dann Womack today Lower Limb Edema Present Yes Yes Right Calf (cm) 40.1 Right Ankle (cm) 26.4 Left Calf (cm) 40 Left Ankle (cm) 25.5 06/20/21 06/27/21 09:38 09:41 Wound Center Nurse 1 #1- L GERMAN POST OP -Combined with other wound No -Current Size (cm) - Length 3.7 2.7 -Current Size (cm) - Width 1.3 1 -Current Size (cm) - Depth 0.2 0.1 -Total Square Cm 4.81 2.7 -Date of Last Picture (Recall this field) -Photo Taken No No -Epithelialization Small 1-33% -Tunneling No -Undermining/Tunneling No -Circular Undermining No -Exudate Amt Medium Small -Exudate Type Serosanguineous Serosanguineous -Wound Margin Distinct, Fibrotic Scar, Outline Thickened Scar Attached -Granulation Amt Large (67-100%) Large (67-100%) -Granulation Quality Jarales Pale,Jarales -Slough/Fibrin Yes -Necrosis Amt Small (1-33%) Small (1-33%) -Necrotic Tissue Type Adherent Slough Adherent Slough -Structure Exposed N/A -Texture (Mackenzie-wound Skin Appearance) Assessed, Scarring Scarring -Moisture (Mackenzie-wound Skin Appearance) Assessed No Abnormality -Color (Mackenzie-wound Skin Appearance) Assessed No Abnormality -Temperature (Mackenzie-wound Skin No Abnormality No Abnormality Appearance) (Pt Warm) (Pt Warm) -Tenderness on Palpation (Mackenzie-wound No No Skin Appearance) -Ulcer Cleansing Soap and Water Soap and Water -Foul Odor after Cleansing No No -Anesthetic Used 5% Lidocaine 5% Lidocaine Gel Gel -Wound Comment(s) Lower Limb Edema Present Yes Right Calf (cm) Right Ankle (cm) Left Calf (cm) 36 38.2 Left Ankle (cm) 25.2 25 WC - Nurse 2 - General Ulcer CM Notes Start: 06/03/21 13:26 Freq: Status: Active Protocol: Activity Type Activity Date Activity User E-Sign Co-Sign Detail Recorded Client Recorded Date Recorded By Document 06/06/21 09:50 [id number] 06/06/21 09:51 Document 06/13/21 09:48 [id number] 06/13/21 09:51 Document 06/20/21 09:56 [id number] 06/20/21 10:02 Document 06/27/21 10:05 [id number] 06/27/21 10:13 06/06/21 06/13/21 06/20/21 09:50 09:48 09:56 Wound Center Nurse 2 #1- L GERMAN POST OP -Time 09:50 09:49 09:56 -Correct Patient Yes Yes Yes -Correct Side, Site, Position Yes Yes Yes -Correct Procedure Yes Yes Yes -Procedure Performed Yes Yes Yes -Type of Procedure Debridement Debridement Debridement -Clinical Debridement Subcutaneous Subcutaneous Subcutaneous -Tissue Removed Subcutaneous Subcutaneous Subcutaneous -Post Debridement (cm) - Length 4.3 3.7 3.5 -Post Debridement (cm) - Width 1.8 1.6 1.3 -Post Debridement (cm) - Depth 0.1 0.1 0.1 -Total Square (Post) (cm) 7.74 5.92 4.55 -Area of Debridement (cm) - Length 4.3 3.7 3.5 -Area of Debridement (cm) - Width 1.8 1.6 1.3 -Total Square (Area) (cm) 7.74 5.92 4.55 -Tunneling No No No -Undermining/Tunneling No No No -Circular Undermining No No No -Wound/Ulcer Outcome Not Healed Not Healed Not Healed -Ulcer Cleansing Rinsed/ Rinsed/ Rinsed/ Irrigated with Irrigated with Irrigated with Saline Saline Saline -Foul Odor after Cleansing No No No -Bioengineered Tissue No No No -Bleeding Controlled with Pressure Pressure Pressure -Treatment Response Procedure Procedure Procedure Tolerated Well Tolerated Well Tolerated Well -Offloading No No No -Debridement - Subq, 1st 20sq cm Yes Yes Yes Pain Scale: 0-10 Numeric Is Patient Pain Free? Yes Yes Yes 06/27/21 10:05 Wound Center Nurse 2 #1- L GERMAN POST OP -Time 10:05 -Correct Patient Yes -Correct Side, Site, Position Yes -Correct Procedure Yes -Procedure Performed Yes -Type of Procedure Debridement -Clinical Debridement Subcutaneous -Tissue Removed Subcutaneous -Post Debridement (cm) - Length 3.0 -Post Debridement (cm) - Width 1.2 -Post Debridement (cm) - Depth 0.1 -Total Square (Post) (cm) 3.60 -Area of Debridement (cm) - Length 3.0 -Area of Debridement (cm) - Width 1.2 -Total Square (Area) (cm) 3.60 -Tunneling No -Undermining/Tunneling No -Circular Undermining No -Wound/Ulcer Outcome Not Healed -Ulcer Cleansing Rinsed/ Irrigated with Saline -Foul Odor after Cleansing No -Bioengineered Tissue No -Bleeding Controlled with Pressure -Treatment Response Procedure Tolerated Well -Offloading No -Debridement - Subq, 1st 20sq cm Yes Pain Scale: 0-10 Numeric Is Patient Pain Free? Yes WC - Nurse 3 - General Ulcer D/C NN Start: 06/03/21 13:26 Freq: Status: Active Protocol: Activity Type Activity Date Activity User E-Sign Co-Sign Detail Recorded Client Recorded Date Recorded By Document 06/03/21 13:26 DL [id number] 06/03/21 13:30 DL Document 06/06/21 09:55 KR [id number] 06/06/21 09:56 KR Edit Result 06/06/21 09:55 KR (1) [id number] 06/07/21 06:53 PL Document 06/13/21 10:05 [facility] [id number] 06/13/21 10:06 [facility] Document 06/17/21 10:28 UT [id number] 06/17/21 10:30 UT Document 06/20/21 10:14 [facility] [id number] 06/20/21 10:14 [facility] Document 06/27/21 10:21 [facility] [id number] 06/27/21 10:22 [facility] (1) Left - Multi-Layered Wrap Application => Multi-Layer Comp - => Left ($) 06/03/21 06/06/21 06/13/21 13:26 09:55 10:05 Vital Signs Temperature (97.8 F-99.1 F) 97.2 F L Temperature Source Temporal Pulse Rate (60-100) Pulse Location Respiratory Rate (12-18) 18 Respiratory rate source Observation Blood Pressure (90/60-120/80) Blood Pressure Mean (mm Hg) Source Pain Scale: 0-10 Numeric Is Patient Pain Free? 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 -Primary Dressing Covered/Secured with Dry Gauze Dry Gauze, Secured with Tape -Optilok 6.5x10 -Promogran Nuha Matter 1 1 1 Left -Lotion applied to leg before compression wrap -Multi-Layered Wrap Application Multi-Layer Multi-Layer Multi-Layer Comp - Left ($) Comp - Left ($) Comp - Left ($) -Other 3m per kr [place] [employer] hydraulic press operator Treatment Response Procedure Procedure Tolerated Well Tolerated Well WC - Visit Discharge Discharge Condition Stable Stable Stable Ambulatory Status Ambulatory Ambulatory Ambulatory Transportation Private Auto Private Auto Private Auto Accompanied by Medication Reconcilliation completed & provided to patient/care provider Clinical Summary of Care Provided 06/17/21 06/20/21 06/27/21 10:28 10:14 10:21 Vital Signs Temperature (97.8 F-99.1 F) 97 F L Temperature Source Temporal Pulse Rate (60-100) 78 Pulse Location Monitor Respiratory Rate (12-18) Respiratory rate source Blood Pressure (90/60-120/80) 143/66 H Blood Pressure Mean (mm Hg) 91 Source Monitor Pain Scale: 0-10 Numeric Is Patient Pain Free? Yes Yes Yes Wound Care Nurse 3 #1- L GERMAN POST OP -Ulcer Cleansing Rinsed/ Rinsed/ Rinsed/ Irrigated with Irrigated with Irrigated with Saline Saline Saline -Foul Odor after Cleansing No No No -Negative Pressure Wound Therapy N/A -Primary Dressing Applied Promogran Optilok 6.5x10, Optilok 6.5x10, Nuha Matter Other Promogran Nuha Matter -Other Dressing nuha drsg per dl [place] hat hydraulic press operator -Primary Dressing Covered/Secured with -Optilok 6.5x10 1 1 -Promogran Nuha Matter 1 1 Left -Lotion applied to leg before No compression wrap -Multi-Layered Wrap Application Multi-Layer Multi-Layer Multi-Layer Comp - Left ($) Comp - Left ($) Comp - Left ($) -Other 3m applied per dl [place] hat hydraulic press operator Treatment Response Procedure Procedure Tolerated Well Tolerated Well WC - Visit Discharge Discharge Condition Stable Stable Stable Ambulatory Status Ambulatory Ambulatory Ambulatory Transportation Private Auto Private Auto Private Auto Accompanied by Medication Reconcilliation completed & Yes provided to patient/care provider Clinical Summary of Care Provided Yes Assessment/Plan Assessment/Plan (1) Ulcer of left lower extremity with fat layer exposed: CODE(S): L97.922 - Non-pressure chronic ulcer of 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 Applying moistened Nuha covered with ABD or super absorber dressing. Will place 3M 2 layer wraps for compression. The compression really improved her ulcer over the past week. Will reapply the 3M 2 layer wraps again this week. There was increased compression this past week with the 3M 2 layer wraps and she has much less edema and her ulcer has improved in the the appearance of the ulcer. Wound culture obtained 05/16/21 which was positive for Serratia marcenscens and Anaerobic cocci. She completed Flagyl and the Levaquin. Left leg ultrasound on 05/16/21 was negative for DVT. Wound culture obtained on 01/03/21 which was positive for MRSA. She has completed her Linezolid. Operative cultures positive for Enterococcus avium, Enterococcus gallinarum, Turicella otitidis and Bacteroides thetaiotaomicron. Fungal cultures positive for Sara tropicalis. She completed Linezolid and Flagyl and Diflucan. Because of her history of Lupus she may have delayed wound healing. Follow up one week. She is to call or come in sooner if she develops any problems or concerns. If she starts to have discomfort with the 3M 2 layer wraps, she may call to come in for a nurse visit at the end of the week to have them changed.
== END 2021-07-02 23:59 | disposition home or self-care (01) ==
LOC: WC 09:45
PROVIDERS: PCP Family Medicine Geriatric Medicine; Visit Provider Nurse Practitioner Family
DX: L97.822 Non-pressure chronic ulcer of other part of left lower leg with fat layer exposed (principal); M32.9 Systemic lupus erythematosus, unspecified; R60.0 Localized edema; S81.852S Open bite, left lower leg, sequela; W55.41 Bitten by pig
CPT/HCPCS: 11042; 29581

== ENCOUNTER → 2021-07-28 | Outpatient (CLI) | payer MEDICARE, OTHER, SELFPAY ==
[2021-07-28 12:13] LABS: Absolute Lymphocyte Count 2.51 X10^3/uL (0.83-4.51); Absolute Neutrophil Count 4.9 X10^3/uL (2.0-7.7); Basophil# 0.01 X10^3/uL; Basophil% 0.1 % (0-1); Eosinophil# 0.13 X10^3/uL; Eosinophils% 1.6 % (0-5); Hematocrit 48.2 % (37-47); Hemoglobin 16.1 g/dL (12.0-15.0); Lymphocyte # 2.51 X10^3/ul (0.83-4.51); Lymphocyte % 30.4 % (19-41); Mean Corp Hgb Conc 33.4 g/dL (32-36); Mean Corpuscular Hgb 31.8 pg (27.0-32.0); Mean Corpuscular Volume 95.1 fL (81-99); Mean Platelet Vol. 10.1 fl (6.2-12.0); Monocyte# 0.64 X10^3/uL; Monocyte% 7.8 % (0-10); NRBC Flagged by Analyzer 0 % (0-5); Neutrophil # 4.93 X10^3/uL (2.7-7.7); Neutrophil % 59.7 % (47-70); Platelet Count 421 K/mm3 (150-450); RBC Distribution Width CV 12.4 % (11.6-14.6); RBC Distribution Width SD 42.8 fl (35.1-43.9); Red Blood Count 5.07 M/mm3 (4.2-5.4); White Blood Count 8.3 K/mm3 (4.4-11.0)
[2021-07-28 12:34] LABS: Vitamin D,25 Hydroxy 25.7 ng/mL
[2021-07-28 12:39] LABS: ALB/GLOB Ratio 1.1 RATIO (0.9-2.4); AST(SGOT) 13 U/L (15-37); Alanine Aminotransfer ALT/SGPT 29 U/L (13-56); Albumin, Serum 4.2 g/dL (3.2-5.0); Alkaline Phosphatase 61 U/L (45-117); Anion Gap 10 (5-15); BUN 17 mg/dL (7-18); Calcium,Total 9.5 mg/dL (8.5-10.1); Chloride 104 mmol/L (98-107); Creatinine, Serum 0.77 mg/dL (0.55-1.02); EST Glomerular Filtration Rate 78 mL/min (>60); Est Glom Filt Rate - Afr Amer 95 mL/min (>60); Globulin 3.7 g/dL (2.2-4.2); Glucose 127 mg/dL (74-106); Potassium 4.1 mmol/L (3.5-5.1); Protein, Total 7.9 g/dL (6.4-8.2); Sodium Level 139 mmol/L (136-145); Thyroid Stim Hormone (TSH) 1.52 uIU/mL (0.358-3.74)
== END | disposition home or self-care (01) ==
LOC: POLAB3 09:17
PROVIDERS: PCP Family Medicine Geriatric Medicine; Visit Provider Family Medicine Geriatric Medicine
DX: E55.9 Vitamin D deficiency, unspecified (principal); I10 Essential (primary) hypertension
CPT/HCPCS: 36415; 80053; 82306; 84443; 85025

== ENCOUNTER 2021-08-02 13:15 | Outpatient (RCR) | payer MEDICARE, OTHER, SELFPAY ==
[2021-07-03 00:23] VITALS: BP 159/89; PULSE 82; RESP 20; TEMP 36.8; BMI 36.0
[2021-07-04 09:36] VITALS: BP 136/70; PULSE 88; RESP 20; TEMP 36.8; BMI 36.0
--- NOTE | 2021-07-04 12:42 | PN.PCM_ITS ---
History of Present Illness Date of Service: 07/04/21 Chief Complaint: Nonhealing ulcer left anterior leg. History of Wound: Surgery 11/19/20 - Surgical preparation left anterior leg with incision and drainage and excisional debridement pig bite wound infection abscess with skin necrosis (96 cm2). Wound care - Moistened Nuha topped with a super absorber gauze. 3M 2layer wraps for compression on the left leg. Compression is to be left on for a week. Wound culture obtained 05/16/21 which was positive for Serratia marcenscens and Anaerobic cocci. She has completed the Metronidazole. She continues to take the Levofloxicin. Left leg ultrasound on 05/16/21 was negative for DVT. She was placed on Levaquin on 12/29/20 because home health called stating that her mackenzie wound was red and warm. Wound culture 01/03/21. It showed MRSA. She was started on Linezolid. Operative cultures positive for Enterococcus avium, Enterococcus gallinarum, Turicella otitidis and Bacteroides thetaiotaomicron. Fungal cultures positive for Sara tropicalis. She completed Linezolid and Flagyl. She was started on Diflucan daily. Labs from 01/05/22 showed Total Bilirubin was 0.20, AST was 12, ALT was 23, Alkaline Phosphatase was 72, Albumin was 3.6. Today she denies any fevers, chills, nausea or vomiting. She states her appetite is good and she has increased her protein intake. Progress of Wound: Ulcer is smaller and improving in overall size. Base of ulcer is beefy pink. The 3M 2 layer wraps are helping control the edema. Objective Data Objective Data Vital Signs: Vital Signs Temp Pulse Resp BP 98.3 F 88 20 H 136/70 H 07/04/21 09:36 07/04/21 09:36 07/04/21 09:36 07/04/21 09:36 Weight: 230 lb Body Mass Index (BMI) 36.0 Charges/Coding Procedures Integumentary 111xxx-113xx: 71259 Blanche subq tissue 20 sq cm/< Physical Exam Const alert and oriented x3 HEENT normocephalic Eyes PERRL Lymph Lymphatic: no lymphedema noted Resp clear to auscultation bilaterally Cardio regular rate Extremity normal capillary refill Extremity Narrative: +1 edema General Extremity: edema Skin no rashes or lesions noted Neuro CN's II-XII intact bilaterally Psych Appearance: well kempt Debridement Note Debridement Note Wound debrided: Leg ulcer Laterality: Left Type of Debridement: Excisional debridement Anesthesia Used: 5% Lidocaine Gel Depth: Down to and including healthy tissue and in the subcutaneous layer Percentage of wound debrided: 100 Instrument Used: 5mm curette Tissue Removed: Nonviable tissue and slough Severity: Fat Layer Exposed Bleeding Controlled with: Pressure and Compression and gauze Patient tolerated procedure: Patient tolerated procedure well Post-Debridement Measurements and Additional Note: Post-Debridement Measurements/Treatment WC - Nurse 1 - General Ulcer Assessment Start: 07/04/21 09:36 Freq: Status: Active Protocol: RUBIA Activity Type Activity Date Activity User E-Sign Co-Sign Detail Recorded Client Recorded Date Recorded By Document 07/04/21 09:36 DL [id number] 07/04/21 09:41 DL 07/04/21 09:36 WC - Today's Visit Information Type of service Follow-up Visit (Physician/OFFSHORE DIVER ) Arrival Mode Ambulatory Transfer Assistance None Patient Identification Verified (Name & Yes ) Patient Requires Transmission-Based No Precautions Height and Weight Body Mass Index (BMI) 36.0 BMI Classification Obese Vital Signs Temperature (97.8 F-99.1 F) 98.3 F Temperature Source Temporal Pulse Rate (60-100) 88 Pulse Location Monitor Respiratory Rate (12-18) 20 H Respiratory rate source Observation Blood Pressure (90/60-120/80) 136/70 H Blood Pressure Mean (mm Hg) 92 Source Monitor History Since Last Visit- (Skip if this is Patient's initial visit) Have you changed medications since your No last visit? Any new allergies or adverse reactions No Had a fall/change in ADL's that may No increase risk of falls Signs or symptoms of abuse and/or No neglect since last visit Have you been in the hospital since your No last visit? Has dressing in place as prescribed Yes Has compression in place as prescribed Yes Has offloadiing in place as prescribed N/A Experienced any changes in pain level or No management Pain Scale: 0-10 Numeric Is Patient Pain Free? Yes GIORGI - Nurse 1 - General Ulcer Measurement Start: 07/04/21 09:36 Freq: Status: Active Protocol: Activity Type Activity Date Activity User E-Sign Co-Sign Detail Recorded Client Recorded Date Recorded By Document 07/04/21 09:36 DL [id number] 07/04/21 09:41 DL 07/04/21 09:36 Wound Center Nurse 1 #1- L GERMAN POST OP -Current Size (cm) - Length 2.8 -Current Size (cm) - Width 0.7 -Current Size (cm) - Depth 0.1 -Total Square Cm 1.96 -Photo Taken No -Exudate Amt Small -Exudate Type Serosanguineous -Wound Margin Distinct, Outline Attached -Granulation Amt Large (67-100%) -Granulation Quality [place] -Necrosis Amt None Present (0 %) -Structure Exposed Fat Layer Exposed -Texture (Mackenzie-wound Skin Appearance) Scarring -Moisture (Mackenzie-wound Skin Appearance) No Abnormality -Color (Mackenzie-wound Skin Appearance) No Abnormality -Temperature (Mackenzie-wound Skin No Abnormality Appearance) (Pt Warm) -Tenderness on Palpation (Mackenzie-wound No Skin Appearance) -Ulcer Cleansing Rinsed/ Irrigated with Saline -Foul Odor after Cleansing No -Anesthetic Used 5% Lidocaine Gel Left Calf (cm) 40 Left Ankle (cm) 25 WC - Nurse 2 - General Ulcer CM Notes Start: 07/04/21 09:36 Freq: Status: Active Protocol: Activity Type Activity Date Activity User E-Sign Co-Sign Detail Recorded Client Recorded Date Recorded By Document 07/04/21 10:00 SHAQ [id number] 07/04/21 10:03 SHAQ 07/04/21 10:00 Wound Center Nurse 2 #1- L GERMAN POST OP -Time 10:00 -Correct Patient Yes -Correct Side, Site, Position Yes -Correct Procedure Yes -Procedure Performed Yes -Type of Procedure Debridement -Clinical Debridement Subcutaneous -Tissue Removed Subcutaneous -Post Debridement (cm) - Length 2.8 -Post Debridement (cm) - Width 1.2 -Post Debridement (cm) - Depth 0.1 -Total Square (Post) (cm) 3.36 -Area of Debridement (cm) - Length 2.8 -Area of Debridement (cm) - Width 1.2 -Total Square (Area) (cm) 3.36 -Tunneling No -Undermining/Tunneling No -Circular Undermining No -Wound/Ulcer Outcome Not Healed -Ulcer Cleansing Rinsed/ Irrigated with Saline -Foul Odor after Cleansing No -Bioengineered Tissue No -Bleeding Controlled with Pressure -Treatment Response Procedure Tolerated Well -Offloading No -Debridement - Subq, 1st 20sq cm Yes Pain Scale: 0-10 Numeric Is Patient Pain Free? Yes - Nurse 3 - General Ulcer D/C NN Start: 07/04/21 09:36 Freq: Status: Active Protocol: Activity Type Activity Date Activity User E-Sign Co-Sign Detail Recorded Client Recorded Date Recorded By Document 07/04/21 10:08 DL [id number] 07/04/21 10:16 DL 07/04/21 10:08 Wound Care Nurse 3 #1- L GERMAN POST OP -Ulcer Cleansing Not Cleansed -Foul Odor after Cleansing No -Primary Dressing Applied Promogran Nuha Matter -Other Dressing moistened nuha -Primary Dressing Covered/Secured with Dry Gauze -Promogran Nuha Matter 1 Pain Scale: 0-10 Numeric Is Patient Pain Free? Yes WC - Visit Discharge Discharge Condition Stable Ambulatory Status Ambulatory Transportation Private Auto Assessment/Plan Assessment/Plan (1) Ulcer of left lower extremity with fat layer exposed: CODE(S): L97.922 - Non-pressure chronic ulcer of 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 Applying moistened Nuha covered with ABD or super absorber dressing. Will place 3M 2 layer wraps for compression. The compression really improved her ulcer over the past couple weeks. Will reapply the 3M 2 layer wraps again this week. There was increased compression this past week with the 3M 2 layer wraps and she has much less edema and her ulcer has improved in the the appearance of the ulcer. Wound culture obtained 05/16/21 which was positive for Serratia marcenscens and Anaerobic cocci. She completed Flagyl and the Levaquin. Left leg ultrasound on 05/16/21 was negative for DVT. Wound culture obtained on 01/03/21 which was positive for MRSA. She has completed her Linezolid. Operative cultures positive for Enterococcus avium, Enterococcus gallinarum, Turicella otitidis and Bacteroides thetaiotaomicron. Fungal cultures positive for Sara tropicalis. She completed Linezolid and Flagyl and Diflucan. Because of her history of Lupus she may have delayed wound healing. Follow up one week. She is to call or come in sooner if she develops any problems or concerns. If she starts to have discomfort with the 3M 2 layer wraps, she may call to come in for a nurse visit at the end of the week to have them changed.
[2021-07-11 09:25] VITALS: BP 154/77; PULSE 87; RESP 16; TEMP 36.9; BMI 36.0
--- NOTE | 2021-07-11 10:06 | PCM.WC.PN ---
History of Present Illness Date of Service: 07/11/21 Chief Complaint: Nonhealing ulcer left anterior leg. History of Wound: Surgery 11/19/20 - Surgical preparation left anterior leg with incision and drainage and excisional debridement pig bite wound infection abscess with skin necrosis (96 cm2). Wound care - Moistened Nuha topped with a super absorber gauze. 3M 2layer wraps for compression on the left leg. Compression is to be left on for a week. Wound culture obtained 05/16/21 which was positive for Serratia marcenscens and Anaerobic cocci. She has completed the Metronidazole. She continues to take the Levofloxicin. Left leg ultrasound on 05/16/21 was negative for DVT. She was placed on Levaquin on 12/29/20 because home health called stating that her mackenzie wound was red and warm. Wound culture 01/03/21. It showed MRSA. She was started on Linezolid. Operative cultures positive for Enterococcus avium, Enterococcus gallinarum, Turicella otitidis and Bacteroides thetaiotaomicron. Fungal cultures positive for Sara tropicalis. She completed Linezolid and Flagyl. She was started on Diflucan daily. Labs from 01/05/22 showed Total Bilirubin was 0.20, AST was 12, ALT was 23, Alkaline Phosphatase was 72, Albumin was 3.6. Today she denies any fevers, chills, nausea or vomiting. She states her appetite is good and she has increased her protein intake. Progress of Wound: Ulcer is smaller and improving in overall size. Base of ulcer is beefy pink. The 3M 2 layer wraps are helping control the edema and the is much improvement in the ulcer. Objective Data Objective Data Vital Signs: Vital Signs Temp Pulse Resp BP 98.5 F 87 16 154/77 H 07/11/21 09:25 07/11/21 09:25 07/11/21 09:25 07/11/21 09:25 Oxygen Delivery Method Room Air Weight: 230 lb Body Mass Index (BMI) 36.0 Charges/Coding Procedures Integumentary 111xxx-113xx: 89854 Blanche subq tissue 20 sq cm/< Physical Exam Const alert and oriented x3 General Appearance: cooperative HEENT normocephalic Head and Scalp: atraumatic Resp normal respiratory effort Cardio regular rate Cardio Narrative: Left pedal pulse +2 Extremity normal capillary refill Extremity Narrative: Left leg edema +1, which is much improved since wearing the 3M 2 layer wraps. Skin Wound Narrative: Left anterior lower leg ulcer is beefy pink, smaller in size. Neuro Sensorium / Orientation: awake and alert Psych Appearance: well kempt Debridement Note Debridement Note Wound debrided: anterior leg ulcer Laterality: Left Type of Debridement: Excisional debridement Anesthesia Used: 5% Lidocaine Gel Depth: Down to and including healthy tissue and in the subcutaneous layer Percentage of wound debrided: 100 Instrument Used: 5mm curette Tissue Removed: Non viable tissue and slough Severity: Fat Layer Exposed Amount of bleeding with debridement: Mild Bleeding Controlled with: Compression and gauze Patient tolerated procedure: Patient tolerated procedure well Post-Debridement Measurements and Additional Note: Post-Debridement Measurements/Treatment - Nurse 1 - General Ulcer Assessment Start: 07/04/21 09:36 Freq: Status: Active Protocol: RUBIA Activity Type Activity Date Activity User E-Sign Co-Sign Detail Recorded Client Recorded Date Recorded By Document 07/04/21 09:36 DL [id number] 07/04/21 09:41 DL Document 07/11/21 09:25 [facility] [id number] 07/11/21 09:35 BM 07/04/21 07/11/21 09:36 09:25 - Today's Visit Information Type of service Follow-up Visit Follow-up Visit (Physician/MANAGEMENT SPECIALIST (Physician/MANAGEMENT SPECIALIST ) ) Arrival Mode Ambulatory Ambulatory Transfer Assistance None None Accompanied by HUSB IN CAR Patient Identification Verified (Name & Yes Yes ) Patient Requires Transmission-Based No No Precautions Height and Weight Body Mass Index (BMI) 36.0 36.0 BMI Classification Obese Obese Vital Signs Temperature (97.8 F-99.1 F) 98.3 F 98.5 F Temperature Source Temporal Temporal Pulse Rate (60-100) 88 87 Pulse Location Monitor Monitor Respiratory Rate (12-18) 20 H 16 Respiratory rate source Observation Observation Oxygen Delivery Method Room Air Blood Pressure (90/60-120/80) 136/70 H 154/77 H Blood Pressure Mean (mm Hg) 92 102 Source Monitor Monitor Position Sitting Blood Pressure Location Left Arm History Since Last Visit- (Skip if this is Patient's initial visit) Have you changed medications since your No No last visit? Any new allergies or adverse reactions No No Had a fall/change in ADL's that may No No increase risk of falls Signs or symptoms of abuse and/or No No neglect since last visit Have you been in the hospital since your No No last visit? Has dressing in place as prescribed Yes No Has compression in place as prescribed Yes Yes Has offloadiing in place as prescribed N/A N/A Experienced any changes in pain level or No No management Left Footwear Regular Shoe Right Footwear Regular Shoe Other Footwear PT SHOWERED AND REMOVED 3M PRIOR TO VISIT Pain Scale: 0-10 Numeric Is Patient Pain Free? Yes Yes WC - Nurse 1 - General Ulcer Measurement Start: 07/04/21 09:36 Freq: Status: Active Protocol: Activity Type Activity Date Activity User E-Sign Co-Sign Detail Recorded Client Recorded Date Recorded By Document 07/04/21 09:36 DL [id number] 07/04/21 09:41 DL Document 07/11/21 09:25 [facility] [id number] 07/11/21 09:35 [facility] 07/04/21 07/11/21 09:36 09:25 Wound Center Nurse 1 #1- L GERMAN POST OP -Combined with other wound No -Current Size (cm) - Length 2.8 2.6 -Current Size (cm) - Width 0.7 1 -Current Size (cm) - Depth 0.1 0.1 -Total Square Cm 1.96 2.6 -Photo Taken No No -Epithelialization Small 1-33% -Tunneling No -Undermining/Tunneling No -Circular Undermining No -Exudate Amt Small Medium -Exudate Type Serosanguineous Serosanguineous -Wound Margin Distinct, Distinct, Outline Outline Attached Attached -Granulation Amt Large (67-100%) Large (67-100%) -Granulation Quality [place] -Slough/Fibrin Yes -Necrosis Amt None Present (0 Small (1-33%) %) -Necrotic Tissue Type Adherent Slough -Structure Exposed Fat Layer Exposed -Texture (Mackenzie-wound Skin Appearance) Scarring Assessed, Scarring -Moisture (Mackenzie-wound Skin Appearance) No Abnormality Assessed -Color (Mackenzie-wound Skin Appearance) No Abnormality Assessed -Temperature (Mackenzie-wound Skin No Abnormality No Abnormality Appearance) (Pt Warm) (Pt Warm) -Tenderness on Palpation (Mackenzie-wound No No Skin Appearance) -Ulcer Cleansing Rinsed/ Soap and Water Irrigated with Saline -Foul Odor after Cleansing No No -Anesthetic Used 5% Lidocaine 5% Lidocaine Gel Gel Lower Limb Edema Present Yes Left Calf (cm) 40 41.2 Left Ankle (cm) 25 26.2 WC - Nurse 2 - General Ulcer CM Notes Start: 07/04/21 09:36 Freq: Status: Active Protocol: Activity Type Activity Date Activity User E-Sign Co-Sign Detail Recorded Client Recorded Date Recorded By Document 07/04/21 10:00 [id number] 07/04/21 10:03 JF 07/04/21 10:00 Wound Center Nurse 2 #1- L GERMAN POST OP -Time 10:00 -Correct Patient Yes -Correct Side, Site, Position Yes -Correct Procedure Yes -Procedure Performed Yes -Type of Procedure Debridement -Clinical Debridement Subcutaneous -Tissue Removed Subcutaneous -Post Debridement (cm) - Length 2.8 -Post Debridement (cm) - Width 1.2 -Post Debridement (cm) - Depth 0.1 -Total Square (Post) (cm) 3.36 -Area of Debridement (cm) - Length 2.8 -Area of Debridement (cm) - Width 1.2 -Total Square (Area) (cm) 3.36 -Tunneling No -Undermining/Tunneling No -Circular Undermining No -Wound/Ulcer Outcome Not Healed -Ulcer Cleansing Rinsed/ Irrigated with Saline -Foul Odor after Cleansing No -Bioengineered Tissue No -Bleeding Controlled with Pressure -Treatment Response Procedure Tolerated Well -Offloading No -Debridement - Subq, 1st 20sq cm Yes Pain Scale: 0-10 Numeric Is Patient Pain Free? Yes - Nurse 3 - General Ulcer D/C NN Start: 07/04/21 09:36 Freq: Status: Active Protocol: Activity Type Activity Date Activity User E-Sign Co-Sign Detail Recorded Client Recorded Date Recorded By Document 07/04/21 10:08 DL [id number] 07/04/21 10:16 DL Edit Result 07/04/21 10:08 DL (1) [id number] 07/05/21 07:09 PL (1) Left - Multi-Layered Wrap Application => Multi-Layer Comp - => Left ($) 07/04/21 10:08 Wound Care Nurse 3 #1- L GERMAN POST OP -Ulcer Cleansing Not Cleansed -Foul Odor after Cleansing No -Primary Dressing Applied Promogran Nuha Matter -Other Dressing moistened nuha -Primary Dressing Covered/Secured with Dry Gauze -Promogran Nuha Matter 1 Left -Multi-Layered Wrap Application Multi-Layer Comp - Left ($) Pain Scale: 0-10 Numeric Is Patient Pain Free? Yes WC - Visit Discharge Discharge Condition Stable Ambulatory Status Ambulatory Transportation Private Auto Assessment/Plan Assessment/Plan (1) Ulcer of left lower extremity with fat layer exposed: CODE(S): L97.922 - Non-pressure chronic ulcer of unspecified part of left lower leg with fat layer exposed (2) Edema of both lower legs: CODE(S): R60.0 - Localized edema (3) Animal bite: CODE(S): T14.8XXA - Other injury of unspecified body region, initial encounter (4) Lupus: CODE(S): M32.9 - Systemic lupus erythematosus, unspecified (5) History of excision of lesion: CODE(S): Z98.890 - Other specified postprocedural states; Z87.2 - Personal history of diseases of the skin and subcutaneous tissue PLAN: Wound care - She completed 9 applications of Theraskin. Applying moistened Nuha covered with ABD or super absorber dressing. Will continue the 3M 2 layer wraps for compression. The compression has really improved her ulcer over the past several weeks. Will reapply the 3M 2 layer wraps again this week. Wound culture obtained 05/16/21 which was positive for Serratia marcenscens and Anaerobic cocci. She completed Flagyl and the Levaquin. Left leg ultrasound on 05/16/21 was negative for DVT. Wound culture obtained on 01/03/21 which was positive for MRSA. She has completed her Linezolid. Operative cultures positive for Enterococcus avium, Enterococcus gallinarum, Turicella otitidis and Bacteroides thetaiotaomicron. Fungal cultures positive for Sara tropicalis. She completed Linezolid and Flagyl and Diflucan. Because of her history of Lupus she may have delayed wound healing. Follow up one week. She is to call or come in sooner if she develops any problems or concerns. If she starts to have discomfort with the 3M 2 layer wraps, she may call to come in for a nurse visit at the end of the week to have them changed.
[2021-07-15 10:11] VITALS: BP 139/63; PULSE 78; TEMP 35.9; BMI 36.0
[2021-07-19 14:02] VITALS: BP 152/82; PULSE 96; TEMP 36; BMI 36.0
--- NOTE | 2021-07-19 16:24 | PCM.WC.PN ---
History of Present Illness Date of Service: 07/19/21 Chief Complaint: Nonhealing ulcer left anterior leg. History of Wound: Surgery 11/19/20 - Surgical preparation left anterior leg with incision and drainage and excisional debridement pig bite wound infection abscess with skin necrosis (96 cm2). Wound care - Moistened Nuha topped with a super absorber gauze. 3M 2layer wraps for compression on the left leg. Compression is to be left on for a week. Wound culture obtained 05/16/21 which was positive for Serratia marcenscens and Anaerobic cocci. She has completed the Metronidazole. She continues to take the Levofloxicin. Left leg ultrasound on 05/16/21 was negative for DVT. She was placed on Levaquin on 12/29/20 because home health called stating that her mackenzie wound was red and warm. Wound culture 01/03/21. It showed MRSA. She was started on Linezolid. Operative cultures positive for Enterococcus avium, Enterococcus gallinarum, Turicella otitidis and Bacteroides thetaiotaomicron. Fungal cultures positive for Sara tropicalis. She completed Linezolid and Flagyl. She was started on Diflucan daily. Labs from 01/05/22 showed Total Bilirubin was 0.20, AST was 12, ALT was 23, Alkaline Phosphatase was 72, Albumin was 3.6. Today she denies any fevers, chills, nausea or vomiting. She states her appetite is good and she has increased her protein intake. Progress of Wound: Ulcer is much smaller and improving in overall size. Base of ulcer is beefy pink. The 3M 2 layer wraps are helping control the edema and the is much improvement in the ulcer. Objective Data Objective Data Vital Signs: Vital Signs Temp Pulse Resp BP 96.8 F L 96 16 152/82 H 07/19/21 14:02 07/19/21 14:02 07/11/21 09:25 07/19/21 14:02 Oxygen Delivery Method Room Air Weight: 230 lb Body Mass Index (BMI) 36.0 Charges/Coding Procedures Integumentary 111xxx-113xx: [id number] Blanche subq tissue 20 sq cm/< Physical Exam Const alert and oriented x3 General Appearance: cooperative HEENT normocephalic Head and Scalp: atraumatic Resp normal respiratory effort Cardio regular rate Cardio Narrative: Left pedal pulse +2 Extremity normal capillary refill Extremity Narrative: Left leg edema +1, which is much improved since wearing the 3M 2 layer wraps. Skin Wound Narrative: Left anterior lower leg ulcer is beefy pink, smaller in size. Neuro Sensorium / Orientation: awake and alert Psych Appearance: well kempt Debridement Note Debridement Note Wound debrided: Leg ulcer Laterality: Left Type of Debridement: Excisional debridement Anesthesia Used: 4% Lidocaine Solution Depth: Down to and including healthy tissue and in the subcutaneous layer Instrument Used: 3mm curette Tissue Removed: Nonviable tissue and slough Severity: Fat Layer Exposed Amount of bleeding with debridement: Mild Bleeding Controlled with: Pressure and Compression and gauze Patient tolerated procedure: Patient tolerated procedure well Post-Debridement Measurements and Additional Note: Post-Debridement Measurements/Treatment - Nurse 1 - General Ulcer Assessment Start: 07/04/21 09:36 Freq: Status: Active Protocol: RUBIA Activity Type Activity Date Activity User E-Sign Co-Sign Detail Recorded Client Recorded Date Recorded By Document 07/04/21 09:36 DL [id number] 07/04/21 09:41 DL Document 07/11/21 09:25 [facility] [id number] 07/11/21 09:35 BMF Document 07/15/21 10:11 AK [id number] 07/15/21 10:12 AK Document 07/19/21 14:02 KR [id number] 07/19/21 14:06 KR 07/04/21 07/11/21 07/15/21 09:36 09:25 10:11 - Today's Visit Information Type of service Follow-up Visit Follow-up Visit Nurse-only (Physician/DANDY TENDER (Physician/DANDY TENDER Visit ) ) Arrival Mode Ambulatory Ambulatory Ambulatory Transfer Assistance None None Accompanied by HUSB IN CAR Patient Identification Verified (Name & Yes Yes Yes ) Patient Requires Transmission-Based No No No Precautions Safety Precautions NA Height and Weight Body Mass Index (BMI) 36.0 36.0 36.0 BMI Classification Obese Obese Obese Vital Signs Temperature (97.8 F-99.1 F) 98.3 F 98.5 F 96.6 F L Temperature Source Temporal Temporal Temporal Pulse Rate (60-100) 88 87 78 Pulse Location Monitor Monitor Monitor Respiratory Rate (12-18) 20 H 16 Respiratory rate source Observation Observation Oxygen Delivery Method Room Air Blood Pressure (90/60-120/80) 136/70 H 154/77 H 139/63 H Blood Pressure Mean (mm Hg) 92 102 88 Source Monitor Monitor Monitor Position Sitting Blood Pressure Location Left Arm History Since Last Visit- (Skip if this is Patient's initial visit) Have you changed medications since your No No No last visit? Any new allergies or adverse reactions No No No Had a fall/change in ADL's that may No No No increase risk of falls Signs or symptoms of abuse and/or No No No neglect since last visit Have you been in the hospital since your No No No last visit? Has dressing in place as prescribed Yes No Yes Has compression in place as prescribed Yes Yes N/A Has offloadiing in place as prescribed N/A N/A N/A Experienced any changes in pain level or No No No management Left Footwear Regular Shoe Regular Shoe Right Footwear Regular Shoe Regular Shoe Other Footwear PT SHOWERED AND REMOVED 3M PRIOR TO VISIT Pain Scale: 0-10 Numeric Is Patient Pain Free? Yes Yes Yes 07/19/21 14:02 - Today's Visit Information Type of service Follow-up Visit (Physician/DANDY TENDER ) Arrival Mode Ambulatory Transfer Assistance Accompanied by Patient Identification Verified (Name & Yes ) Patient Requires Transmission-Based Precautions Safety Precautions Height and Weight Body Mass Index (BMI) 36.0 BMI Classification Obese Vital Signs Temperature (97.8 F-99.1 F) 96.8 F L Temperature Source Temporal Pulse Rate (60-100) 96 Pulse Location Monitor Respiratory Rate (12-18) Respiratory rate source Oxygen Delivery Method Blood Pressure (90/60-120/80) 152/82 H Blood Pressure Mean (mm Hg) 105 Source Monitor Position Semi-Fowlers Blood Pressure Location Right Arm History Since Last Visit- (Skip if this is Patient's initial visit) Have you changed medications since your No last visit? Any new allergies or adverse reactions No Had a fall/change in ADL's that may No increase risk of falls Signs or symptoms of abuse and/or No neglect since last visit Have you been in the hospital since your No last visit? Has dressing in place as prescribed Yes Has compression in place as prescribed Yes Has offloadiing in place as prescribed N/A Experienced any changes in pain level or No management Left Footwear Regular Shoe Right Footwear Regular Shoe Other Footwear Pain Scale: 0-10 Numeric Is Patient Pain Free? Yes WC - Nurse 1 - General Ulcer Measurement Start: 07/04/21 09:36 Freq: Status: Active Protocol: Activity Type Activity Date Activity User E-Sign Co-Sign Detail Recorded Client Recorded Date Recorded By Document 07/04/21 09:36 DL [id number] 07/04/21 09:41 DL Document 07/11/21 09:25 BMF [id number] 07/11/21 09:35 BMF Document 07/19/21 14:02 KR [id number] 07/19/21 14:06 KR 07/04/21 07/11/21 07/19/21 09:36 09:25 14:02 Wound Center Nurse 1 #1- L GERMAN POST OP -Combined with other wound No -Current Size (cm) - Length 2.8 2.6 2.3 -Current Size (cm) - Width 0.7 1 0.6 -Current Size (cm) - Depth 0.1 0.1 0.1 -Total Square Cm 1.96 2.6 1.38 -Photo Taken No No -Epithelialization Small 1-33% -Tunneling No -Undermining/Tunneling No -Circular Undermining No -Exudate Amt Small Medium Small -Exudate Type Serosanguineous Serosanguineous Serosanguineous -Wound Margin Distinct, Distinct, Distinct, Outline Outline Outline Attached Attached Attached -Granulation Amt Large (67-100%) Large (67-100%) Large (67-100%) -Granulation Quality [place] -Slough/Fibrin Yes -Necrosis Amt None Present (0 Small (1-33%) None Present (0 %) %) -Necrotic Tissue Type Adherent Slough -Structure Exposed Fat Layer Exposed -Texture (Mackenzie-wound Skin Appearance) Scarring Assessed, Assessed, Scarring Scarring -Moisture (Mackenzie-wound Skin Appearance) No Abnormality Assessed No Abnormality, Assessed -Color (Mackenzie-wound Skin Appearance) No Abnormality Assessed No Abnormality, Assessed -Temperature (Mackenzie-wound Skin No Abnormality No Abnormality No Abnormality Appearance) (Pt Warm) (Pt Warm) (Pt Warm) -Tenderness on Palpation (Mackenzie-wound No No No Skin Appearance) -Ulcer Cleansing Rinsed/ Soap and Water Rinsed/ Irrigated with Irrigated with Saline Saline -Foul Odor after Cleansing No No No -Anesthetic Used 5% Lidocaine 5% Lidocaine 4% Lidocaine Gel Gel Solution Lower Limb Edema Present Yes Left Calf (cm) 40 41.2 40.0 Left Ankle (cm) 25 26.2 23.6 WC - Nurse 2 - General Ulcer CM Notes Start: 07/04/21 09:36 Freq: Status: Active Protocol: Activity Type Activity Date Activity User E-Sign Co-Sign Detail Recorded Client Recorded Date Recorded By Document 07/04/21 10:00 [id number] 07/04/21 10:03 JF Document 07/11/21 10:05 PL [id number] 07/11/21 10:06 PL Document 07/19/21 14:40 [id number] 07/19/21 14:42 07/04/21 07/11/21 07/19/21 10:00 10:05 14:40 Wound Center Nurse 2 #1- L GERMAN POST OP -Time 10:00 09:43 14:41 -Correct Patient Yes Yes Yes -Correct Side, Site, Position Yes Yes Yes -Correct Procedure Yes Yes Yes -Procedure Performed Yes Yes Yes -Type of Procedure Debridement Debridement Debridement -Clinical Debridement Subcutaneous Subcutaneous Subcutaneous -Tissue Removed Subcutaneous Subcutaneous Subcutaneous -Post Debridement (cm) - Length 2.8 3.0 2.3 -Post Debridement (cm) - Width 1.2 1.0 0.7 -Post Debridement (cm) - Depth 0.1 0.1 0.1 -Total Square (Post) (cm) 3.36 3.00 1.61 -Area of Debridement (cm) - Length 2.8 3.0 2.3 -Area of Debridement (cm) - Width 1.2 1.0 0.7 -Total Square (Area) (cm) 3.36 3.00 1.61 -Tunneling No No No -Undermining/Tunneling No No No -Circular Undermining No No No -Wound/Ulcer Outcome Not Healed Not Healed Not Healed -Ulcer Cleansing Rinsed/ Rinsed/ Rinsed/ Irrigated with Irrigated with Irrigated with Saline Saline Saline -Foul Odor after Cleansing No No No -Bioengineered Tissue No No No -Bleeding Controlled with Pressure Pressure Pressure -Treatment Response Procedure Procedure Procedure Tolerated Well Tolerated Well Tolerated Well -Offloading No No -Debridement - Subq, 1st 20sq cm Yes Yes Yes Pain Scale: 0-10 Numeric Is Patient Pain Free? Yes Yes Yes - Nurse 3 - General Ulcer D/C NN Start: 07/04/21 09:36 Freq: Status: Active Protocol: Activity Type Activity Date Activity User E-Sign Co-Sign Detail Recorded Client Recorded Date Recorded By Document 07/04/21 10:08 DL [id number] 07/04/21 10:16 DL Edit Result 07/04/21 10:08 DL (1) [id number] 07/05/21 07:09 PL Document 07/11/21 10:08 AK [id number] 07/11/21 10:09 AK Document 07/15/21 10:11 AK [id number] 07/15/21 10:12 AK Document 07/19/21 14:54 AK [id number] 07/19/21 14:55 AK (1) Left - Multi-Layered Wrap Application => Multi-Layer Comp - => Left ($) 07/04/21 07/11/21 07/15/21 10:08 10:08 10:11 Wound Care Nurse 3 #1- L GERMAN POST OP -Ulcer Cleansing Not Cleansed Rinsed/ Soap and Water Irrigated with Saline -Foul Odor after Cleansing No No No -Negative Pressure Wound Therapy N/A N/A -Primary Dressing Applied Promogran Optilok 6.5x10, Optilok 6.5x10, Nuha Matter Promogran Promogran Nuha Matter Nuha Matter -Other Dressing moistened nuha -Primary Dressing Covered/Secured with Dry Gauze -Optilok 6.5x10 1 1 -Promogran Nuha Matter 1 1 1 Left -Lotion applied to leg before Yes compression wrap -Multi-Layered Wrap Application Multi-Layer Multi-Layer Multi-Layer Comp - Left ($) Comp - Left ($) Comp - Left ($) Vital Signs Temperature (97.8 F-99.1 F) 96.6 F L Temperature Source Temporal Pulse Rate (60-100) 78 Pulse Location Monitor Blood Pressure (90/60-120/80) 139/63 H Blood Pressure Mean (mm Hg) 88 Source Monitor Pain Scale: 0-10 Numeric Is Patient Pain Free? Yes Yes Yes WC - Visit Discharge Discharge Condition Stable Stable Stable Ambulatory Status Ambulatory Ambulatory Ambulatory Transportation Private Auto Private Auto Private Auto Medication Reconcilliation completed & Yes Yes provided to patient/care provider Clinical Summary of Care Provided Yes Yes 07/19/21 14:54 Wound Care Nurse 3 #1- L GERMAN POST OP -Ulcer Cleansing Rinsed/ Irrigated with Saline -Foul Odor after Cleansing No -Negative Pressure Wound Therapy N/A -Primary Dressing Applied NonAdherent Contact Layer, Promogran Nuha Matter -Other Dressing -Primary Dressing Covered/Secured with Dry Gauze -Optilok 6.5x10 -Promogran Nuha Matter 0 Left -Lotion applied to leg before Yes compression wrap -Multi-Layered Wrap Application Multi-Layer Comp - Left ($) Vital Signs Temperature (97.8 F-99.1 F) Temperature Source Pulse Rate (60-100) Pulse Location Blood Pressure (90/60-120/80) Blood Pressure Mean (mm Hg) Source Pain Scale: 0-10 Numeric Is Patient Pain Free? Yes WC - Visit Discharge Discharge Condition Stable Ambulatory Status Ambulatory Transportation Private Auto Medication Reconcilliation completed & Yes provided to patient/care provider Clinical Summary of Care Provided Yes Assessment/Plan Assessment/Plan (1) Ulcer of left lower extremity with fat layer exposed: CODE(S): L97.922 - Non-pressure chronic ulcer of unspecified part of left lower leg with fat layer exposed (2) Edema of both lower legs: CODE(S): R60.0 - Localized edema (3) Animal bite: CODE(S): T14.8XXA - Other injury of unspecified body region, initial encounter (4) Lupus: CODE(S): M32.9 - Systemic lupus erythematosus, unspecified (5) History of excision of lesion: CODE(S): Z98.890 - Other specified postprocedural states; Z87.2 - Personal history of diseases of the skin and subcutaneous tissue PLAN: Wound care - She completed 9 applications of [place]. Applying moistened Nuha covered with adaptic and topped with ABD or super absorber dressing. Will continue the 3M 2 layer wraps for compression. The compression has really improved her ulcer over the past several weeks. Will reapply the 3M 2 layer wraps again this week. Wound culture obtained 05/16/21 which was positive for Serratia marcenscens and Anaerobic cocci. She completed Flagyl and the Levaquin. Left leg ultrasound on 05/16/21 was negative for DVT. Wound culture obtained on 01/03/21 which was positive for MRSA. She has completed her Linezolid. Operative cultures positive for Enterococcus avium, Enterococcus gallinarum, Turicella otitidis and Bacteroides thetaiotaomicron. Fungal cultures positive for Sara tropicalis. She completed Linezolid and Flagyl and Diflucan. Because of her history of Lupus she may have delayed wound healing. Follow up one week. She is to call or come in sooner if she develops any problems or concerns. If she starts to have discomfort with the 3M 2 layer wraps, she may call to come in for a nurse visit at the end of the week to have them changed.
[2021-07-25 08:21] VITALS: BP 163/82; PULSE 81; RESP 18; TEMP 36.2; BMI 36.0
--- NOTE | 2021-07-25 09:18 | PCM.WC.PN ---
History of Present Illness Date of Service: 07/25/21 Chief Complaint: Nonhealing ulcer left anterior leg. History of Wound: Surgery 11/19/20 - Surgical preparation left anterior leg with incision and drainage and excisional debridement pig bite wound infection abscess with skin necrosis (96 cm2). Wound care - Moistened Nuha topped with a super absorber gauze. 3M 2layer wraps for compression on the left leg. Compression is to be left on for a week. Wound culture obtained 05/16/21 which was positive for Serratia marcenscens and Anaerobic cocci. She has completed the Metronidazole. She continues to take the Levofloxicin. Left leg ultrasound on 05/16/21 was negative for DVT. She was placed on Levaquin on 12/29/20 because home health called stating that her mackenzie wound was red and warm. Wound culture 01/03/21. It showed MRSA. She was started on Linezolid. Operative cultures positive for Enterococcus avium, Enterococcus gallinarum, Turicella otitidis and Bacteroides thetaiotaomicron. Fungal cultures positive for Sara tropicalis. She completed Linezolid and Flagyl. She was started on Diflucan daily. Labs from 01/05/22 showed Total Bilirubin was 0.20, AST was 12, ALT was 23, Alkaline Phosphatase was 72, Albumin was 3.6. Today she denies any fevers, chills, nausea or vomiting. She states her appetite is good and she has increased her protein intake. Progress of Wound: Ulcer is much smaller and improving in overall size. Base of ulcer is beefy pink. The 3M 2 layer wraps are helping control the edema and the is much improvement in the ulcer. She required a nurses visit last to have her 3M 2layer wraps redone due to them becoming too loose. Objective Data Objective Data Vital Signs: Vital Signs Temp Pulse Resp BP 97.1 F L 81 18 163/82 H 07/25/21 08:21 07/25/21 08:21 07/25/21 08:21 07/25/21 08:21 Oxygen Delivery Method Room Air Weight: 230 lb Body Mass Index (BMI) 36.0 Charges/Coding Procedures Integumentary 111xxx-113xx: 35956 Blanche subq tissue 20 sq cm/< Physical Exam Const alert and oriented x3 General Appearance: cooperative HEENT normocephalic Head and Scalp: atraumatic Resp normal respiratory effort Cardio regular rate Cardio Narrative: Left pedal pulse +2 Extremity normal capillary refill Extremity Narrative: Left leg edema +1, which is much improved since wearing the 3M 2 layer wraps. Skin Wound Narrative: Left anterior lower leg ulcer is beefy pink, smaller in size. Neuro Sensorium / Orientation: awake and alert Psych Appearance: well kempt Debridement Note Debridement Note Wound debrided: leg ulcer Laterality: Left Type of Debridement: Excisional debridement Anesthesia Used: 4% Lidocaine Solution and 5% Lidocaine Gel Depth: Down to and including healthy tissue and in the subcutaneous layer Percentage of wound debrided: 100 Instrument Used: 3mm curette Tissue Removed: Non viable tissue and slough Severity: Fat Layer Exposed Amount of bleeding with debridement: Mild Bleeding Controlled with: Pressure Patient tolerated procedure: Patient tolerated procedure well Post-Debridement Measurements and Additional Note: Post-Debridement Measurements/Treatment - Nurse 1 - General Ulcer Assessment Start: 07/04/21 09:36 Freq: Status: Active Protocol: RUBIA Activity Type Activity Date Activity User E-Sign Co-Sign Detail Recorded Client Recorded Date Recorded By Document 07/04/21 09:36 DL [id number] 07/04/21 09:41 DL Document 07/11/21 09:25 [facility] [id number] 07/11/21 09:35 BMF Document 07/15/21 10:11 AK [id number] 07/15/21 10:12 AK Document 07/19/21 14:02 KR [id number] 07/19/21 14:06 KR Document 07/25/21 08:21 JF [id number] 07/25/21 08:21 JF 07/04/21 07/11/21 07/15/21 09:36 09:25 10:11 - Today's Visit Information Type of service Follow-up Visit Follow-up Visit Nurse-only (Physician/FIELD OPERATIONS TECHNICIAN (Physician/FIELD OPERATIONS TECHNICIAN Visit ) ) Arrival Mode Ambulatory Ambulatory Ambulatory Transfer Assistance None None Accompanied by HUSB IN CAR Patient Identification Verified (Name & Yes Yes Yes ) Patient Requires Transmission-Based No No No Precautions Safety Precautions NA Height and Weight Body Mass Index (BMI) 36.0 36.0 36.0 BMI Classification Obese Obese Obese Vital Signs Temperature (97.8 F-99.1 F) 98.3 F 98.5 F 96.6 F L Temperature Source Temporal Temporal Temporal Pulse Rate (60-100) 88 87 78 Pulse Location Monitor Monitor Monitor Respiratory Rate (12-18) 20 H 16 Respiratory rate source Observation Observation Oxygen Delivery Method Room Air Blood Pressure (90/60-120/80) 136/70 H 154/77 H 139/63 H Blood Pressure Mean (mm Hg) 92 102 88 Source Monitor Monitor Monitor Position Sitting Blood Pressure Location Left Arm History Since Last Visit- (Skip if this is Patient's initial visit) Have you changed medications since your No No No last visit? Any new allergies or adverse reactions No No No Had a fall/change in ADL's that may No No No increase risk of falls Signs or symptoms of abuse and/or No No No neglect since last visit Have you been in the hospital since your No No No last visit? Has dressing in place as prescribed Yes No Yes Has compression in place as prescribed Yes Yes N/A Has offloadiing in place as prescribed N/A N/A N/A Experienced any changes in pain level or No No No management Left Footwear Regular Shoe Regular Shoe Right Footwear Regular Shoe Regular Shoe Other Footwear PT SHOWERED AND REMOVED 3M PRIOR TO VISIT Pain Scale: 0-10 Numeric Is Patient Pain Free? Yes Yes Yes 07/19/21 07/25/21 14:02 08:21 WC - Today's Visit Information Type of service Follow-up Visit Follow-up Visit (Physician/FIELD OPERATIONS TECHNICIAN (Physician/FIELD OPERATIONS TECHNICIAN ) ) Arrival Mode Ambulatory Ambulatory Transfer Assistance Accompanied by Patient Identification Verified (Name & Yes ) Patient Requires Transmission-Based No Precautions Safety Precautions Height and Weight Body Mass Index (BMI) 36.0 36.0 BMI Classification Obese Obese Vital Signs Temperature (97.8 F-99.1 F) 96.8 F L 97.1 F L Temperature Source Temporal Temporal Pulse Rate (60-100) 96 81 Pulse Location Monitor Monitor Respiratory Rate (12-18) 18 Respiratory rate source Observation Oxygen Delivery Method Blood Pressure (90/60-120/80) 152/82 H 163/82 H Blood Pressure Mean (mm Hg) 105 109 Source Monitor Monitor Position Semi-Fowlers Semi-Fowlers Blood Pressure Location Right Arm Left Arm History Since Last Visit- (Skip if this is Patient's initial visit) Have you changed medications since your No No last visit? Any new allergies or adverse reactions No No Had a fall/change in ADL's that may No No increase risk of falls Signs or symptoms of abuse and/or No No neglect since last visit Have you been in the hospital since your No No last visit? Has dressing in place as prescribed Yes Yes Has compression in place as prescribed Yes Yes Has offloadiing in place as prescribed N/A N/A Experienced any changes in pain level or No No management Left Footwear Regular Shoe Regular Shoe Right Footwear Regular Shoe Regular Shoe Other Footwear Pain Scale: 0-10 Numeric Is Patient Pain Free? Yes Yes WC - Nurse 1 - General Ulcer Measurement Start: 07/04/21 09:36 Freq: Status: Active Protocol: Activity Type Activity Date Activity User E-Sign Co-Sign Detail Recorded Client Recorded Date Recorded By Document 07/04/21 09:36 DL [id number] 07/04/21 09:41 DL Document 07/11/21 09:25 [facility] [id number] 07/11/21 09:35 BMF Document 07/19/21 14:02 KR [id number] 07/19/21 14:06 KR Document 07/25/21 08:21 JF [id number] 07/25/21 08:22 JF 07/04/21 07/11/21 07/19/21 09:36 09:25 14:02 Wound Center Nurse 1 #1- L GERMAN POST OP -Combined with other wound No -Current Size (cm) - Length 2.8 2.6 2.3 -Current Size (cm) - Width 0.7 1 0.6 -Current Size (cm) - Depth 0.1 0.1 0.1 -Total Square Cm 1.96 2.6 1.38 -Photo Taken No No -Epithelialization Small 1-33% -Tunneling No -Undermining/Tunneling No -Circular Undermining No -Exudate Amt Small Medium Small -Exudate Type Serosanguineous Serosanguineous Serosanguineous -Wound Margin Distinct, Distinct, Distinct, Outline Outline Outline Attached Attached Attached -Granulation Amt Large (67-100%) Large (67-100%) Large (67-100%) -Granulation Quality [place] -Slough/Fibrin Yes -Necrosis Amt None Present (0 Small (1-33%) None Present (0 %) %) -Necrotic Tissue Type Adherent Slough -Structure Exposed Fat Layer Exposed -Texture (Mackenzie-wound Skin Appearance) Scarring Assessed, Assessed, Scarring Scarring -Moisture (Mackenzie-wound Skin Appearance) No Abnormality Assessed No Abnormality, Assessed -Color (Mackenzie-wound Skin Appearance) No Abnormality Assessed No Abnormality, Assessed -Temperature (Mackenzie-wound Skin No Abnormality No Abnormality No Abnormality Appearance) (Pt Warm) (Pt Warm) (Pt Warm) -Tenderness on Palpation (Mackenzie-wound No No No Skin Appearance) -Ulcer Cleansing Rinsed/ Soap and Water Rinsed/ Irrigated with Irrigated with Saline Saline -Foul Odor after Cleansing No No No -Anesthetic Used 5% Lidocaine 5% Lidocaine 4% Lidocaine Gel Gel Solution Lower Limb Edema Present Yes Left Calf (cm) 40 41.2 40.0 Left Ankle (cm) 25 26.2 23.6 07/25/21 08:21 Wound Center Nurse 1 #1- L GERMAN POST OP -Combined with other wound No -Current Size (cm) - Length 1.5 -Current Size (cm) - Width 0.5 -Current Size (cm) - Depth 0.1 -Total Square Cm 0.75 -Photo Taken No -Epithelialization Large 67-100% -Tunneling -Undermining/Tunneling No -Circular Undermining No -Exudate Amt Small -Exudate Type Serosanguineous -Wound Margin Flat & Intact -Granulation Amt Medium (34-66%) -Granulation Quality Red -Slough/Fibrin Yes -Necrosis Amt Small (1-33%) -Necrotic Tissue Type Adherent Slough -Structure Exposed N/A -Texture (Mackenzie-wound Skin Appearance) Assessed, Localized Edema ,Scarring -Moisture (Mackenzie-wound Skin Appearance) Assessed,Dry/ Scaly -Color (Mackenzie-wound Skin Appearance) Assessed -Temperature (Mackenzie-wound Skin No Abnormality Appearance) (Pt Warm) -Tenderness on Palpation (Mackenzie-wound No Skin Appearance) -Ulcer Cleansing Rinsed/ Irrigated with Saline -Foul Odor after Cleansing No -Anesthetic Used 4% Lidocaine Solution Lower Limb Edema Present Yes Left Calf (cm) 40.0 Left Ankle (cm) 25.0 WC - Nurse 2 - General Ulcer CM Notes Start: 07/04/21 09:36 Freq: Status: Active Protocol: Activity Type Activity Date Activity User E-Sign Co-Sign Detail Recorded Client Recorded Date Recorded By Document 07/04/21 10:00 [id number] 07/04/21 10:03 Document 07/11/21 10:05 PL [id number] 07/11/21 10:06 PL Document 07/19/21 14:40 [id number] 07/19/21 14:42 Document 07/25/21 08:38 [id number] 07/25/21 08:41 07/04/21 07/11/21 07/19/21 10:00 10:05 14:40 Wound Center Nurse 2 #1- L GERMAN POST OP -Time 10:00 09:43 14:41 -Correct Patient Yes Yes Yes -Correct Side, Site, Position Yes Yes Yes -Correct Procedure Yes Yes Yes -Procedure Performed Yes Yes Yes -Type of Procedure Debridement Debridement Debridement -Clinical Debridement Subcutaneous Subcutaneous Subcutaneous -Tissue Removed Subcutaneous Subcutaneous Subcutaneous -Post Debridement (cm) - Length 2.8 3.0 2.3 -Post Debridement (cm) - Width 1.2 1.0 0.7 -Post Debridement (cm) - Depth 0.1 0.1 0.1 -Total Square (Post) (cm) 3.36 3.00 1.61 -Area of Debridement (cm) - Length 2.8 3.0 2.3 -Area of Debridement (cm) - Width 1.2 1.0 0.7 -Total Square (Area) (cm) 3.36 3.00 1.61 -Tunneling No No No -Undermining/Tunneling No No No -Circular Undermining No No No -Wound/Ulcer Outcome Not Healed Not Healed Not Healed -Ulcer Cleansing Rinsed/ Rinsed/ Rinsed/ Irrigated with Irrigated with Irrigated with Saline Saline Saline -Foul Odor after Cleansing No No No -Bioengineered Tissue No No No -Bleeding Controlled with Pressure Pressure Pressure -Treatment Response Procedure Procedure Procedure Tolerated Well Tolerated Well Tolerated Well -Offloading No No -Debridement - Subq, 1st 20sq cm Yes Yes Yes Pain Scale: 0-10 Numeric Is Patient Pain Free? Yes Yes Yes 07/25/21 08:38 Wound Center Nurse 2 #1- L GERMAN POST OP -Time 08:39 -Correct Patient Yes -Correct Side, Site, Position Yes -Correct Procedure Yes -Procedure Performed Yes -Type of Procedure Debridement -Clinical Debridement Subcutaneous -Tissue Removed Subcutaneous -Post Debridement (cm) - Length 1.8 -Post Debridement (cm) - Width 0.7 -Post Debridement (cm) - Depth 0.1 -Total Square (Post) (cm) 1.26 -Area of Debridement (cm) - Length 1.8 -Area of Debridement (cm) - Width 0.7 -Total Square (Area) (cm) 1.26 -Tunneling No -Undermining/Tunneling No -Circular Undermining No -Wound/Ulcer Outcome Not Healed -Ulcer Cleansing Rinsed/ Irrigated with Saline -Foul Odor after Cleansing No -Bioengineered Tissue No -Bleeding Controlled with Pressure -Treatment Response Procedure Tolerated Well -Offloading No -Debridement - Subq, 1st 20sq cm Yes Pain Scale: 0-10 Numeric Is Patient Pain Free? Yes WC - Nurse 3 - General Ulcer D/C NN Start: 07/04/21 09:36 Freq: Status: Active Protocol: Activity Type Activity Date Activity User E-Sign Co-Sign Detail Recorded Client Recorded Date Recorded By Document 07/04/21 10:08 DL [id number] 07/04/21 10:16 DL Edit Result 07/04/21 10:08 DL (1) [id number] 07/05/21 07:09 PL Document 07/11/21 10:08 AK [id number] 07/11/21 10:09 AK Document 07/15/21 10:11 AK [id number] 07/15/21 10:12 AK Document 07/19/21 14:54 AK [id number] 07/19/21 14:55 AK Document 07/25/21 08:50 AK [id number] 07/25/21 08:51 AK (1) Left - Multi-Layered Wrap Application => Multi-Layer Comp - => Left ($) 07/04/21 07/11/21 07/15/21 10:08 10:08 10:11 Wound Care Nurse 3 #1- L GERMAN POST OP -Ulcer Cleansing Not Cleansed Rinsed/ Soap and Water Irrigated with Saline -Foul Odor after Cleansing No No No -Negative Pressure Wound Therapy N/A N/A -Primary Dressing Applied Promogran Optilok 6.5x10, Optilok 6.5x10, Nuha Matter Promogran Promogran Nuha Matter Nuha Matter -Other Dressing moistened nuha -Primary Dressing Covered/Secured with Dry Gauze -Optilok 6.5x10 1 1 -Promogran Nuha Matter 1 1 1 Left -Lotion applied to leg before Yes compression wrap -Multi-Layered Wrap Application Multi-Layer Multi-Layer Multi-Layer Comp - Left ($) Comp - Left ($) Comp - Left ($) Vital Signs Temperature (97.8 F-99.1 F) 96.6 F L Temperature Source Temporal Pulse Rate (60-100) 78 Pulse Location Monitor Blood Pressure (90/60-120/80) 139/63 H Blood Pressure Mean (mm Hg) 88 Source Monitor Pain Scale: 0-10 Numeric Is Patient Pain Free? Yes Yes Yes WC - Visit Discharge Discharge Condition Stable Stable Stable Ambulatory Status Ambulatory Ambulatory Ambulatory Transportation [place] Medication Reconcilliation completed & Yes Yes provided to patient/care provider Clinical Summary of Care Provided Yes Yes 07/19/21 07/25/21 14:54 08:50 Wound Care Nurse 3 #1- L GER[place] POST OP -Ulcer Cleansing Rinsed/ Rinsed/ Irrigated with Irrigated with Saline Saline -Foul Odor after Cleansing No No -Negative Pressure Wound Therapy N/A N/A -Primary Dressing Applied NonAdherent NonAdherent Contact Layer, Contact Layer, Promogran Promogran Nuha Matter Nuha Matter -Other Dressing -Primary Dressing Covered/Secured with Dry Gauze Dry Gauze, Secured with Tape -Optilok 6.5x10 -Promogran Nuha Matter 0 1 Left -Lotion applied to leg before Yes compression wrap -Multi-Layered Wrap Application Multi-Layer Multi-Layer Comp - Left ($) Comp - Left ($) Vital Signs Temperature (97.8 F-99.1 F) Temperature Source Pulse Rate (60-100) Pulse Location Blood Pressure (90/60-120/80) Blood Pressure Mean (mm Hg) Source Pain Scale: 0-10 Numeric Is Patient Pain Free? Yes Yes WC - Visit Discharge Discharge Condition Stable Stable Ambulatory Status Ambulatory Ambulatory Transportation [place] Medication Reconcilliation completed & Yes Yes provided to patient/care provider Clinical Summary of Care Provided Yes Yes Assessment/Plan Assessment/Plan (1) Ulcer of left lower extremity with fat layer exposed: CODE(S): L97.922 - Non-pressure chronic ulcer of unspecified part of left lower leg with fat layer exposed (2) Edema of both lower legs: CODE(S): R60.0 - Localized edema (3) Animal bite: CODE(S): T14.8XXA - Other injury of unspecified body region, initial encounter (4) Lupus: CODE(S): M32.9 - Systemic lupus erythematosus, unspecified (5) History of excision of lesion: CODE(S): Z98.890 - Other specified postprocedural states; Z87.2 - Personal history of diseases of the skin and subcutaneous tissue PLAN: Wound care - She completed 9 applications of [place]. Applying moistened Nuha covered with adaptic and topped with ABD or super absorber dressing. Will continue the 3M 2 layer wraps for compression. The compression has really improved her ulcer over the past several weeks. Will reapply the 3M 2 layer wraps again this week. Will order knee high compression stockings for her to start to wear for compression. Wound culture obtained 05/16/21 which was positive for Serratia marcenscens and Anaerobic cocci. She completed Flagyl and the Levaquin. Left leg ultrasound on 05/16/21 was negative for DVT. Wound culture obtained on 01/03/21 which was positive for MRSA. She has completed her Linezolid. Operative cultures positive for Enterococcus avium, Enterococcus gallinarum, Turicella otitidis and Bacteroides thetaiotaomicron. Fungal cultures positive for Sara tropicalis. She completed Linezolid and Flagyl and Diflucan. Because of her history of Lupus she may have delayed wound healing. Follow up one week. She is to call or come in sooner if she develops any problems or concerns. If she starts to have discomfort with the 3M 2 layer wraps, she may call to come in for a nurse visit at the end of the week to have them changed.
[2021-07-28 13:41] VITALS: BP 148/85; PULSE 92; RESP 18; TEMP 36.1; BMI 36.0
[2021-08-02 13:27] VITALS: BP 165/85; PULSE 80; RESP 18; TEMP 36.2; BMI 36.0
--- NOTE | 2021-08-02 15:17 | PCM.WC.PN ---
History of Present Illness Date of Service: 08/02/21 Chief Complaint: Nonhealing ulcer left anterior leg. History of Wound: Surgery 11/19/20 - Surgical preparation left anterior leg with incision and drainage and excisional debridement pig bite wound infection abscess with skin necrosis (96 cm2). Wound care - Moistened Nuha topped with adaptic and covered with gauze. 3M 2layer wraps for compression on the left leg. Compression is to be left on for a week. Wound culture obtained 05/16/21 which was positive for Serratia marcenscens and Anaerobic cocci. She has completed the Metronidazole. She continues to take the Levofloxicin. Left leg ultrasound on 05/16/21 was negative for DVT. She was placed on Levaquin on 12/29/20 because home health called stating that her mackenzie wound was red and warm. Wound culture 01/03/21. It showed MRSA. She was started on Linezolid. Operative cultures positive for Enterococcus avium, Enterococcus gallinarum, Turicella otitidis and Bacteroides thetaiotaomicron. Fungal cultures positive for Sara tropicalis. She completed Linezolid and Flagyl. She was started on Diflucan daily. Labs from 01/05/22 showed Total Bilirubin was 0.20, AST was 12, ALT was 23, Alkaline Phosphatase was 72, Albumin was 3.6. Today she denies any fevers, chills, nausea or vomiting. She states her appetite is good and she has increased her protein intake. Progress of Wound: Ulcer is much smaller and improving in overall size. Base of ulcer is beefy pink. The 3M 2 layer wraps are helping control the edema and the is much improvement in the ulcer. Objective Data Objective Data Vital Signs: Vital Signs Temp Pulse Resp BP 97.2 F L 80 18 165/85 H 08/02/21 13:27 08/02/21 13:27 08/02/21 13:27 08/02/21 13:27 Oxygen Delivery Method Room Air Weight: 230 lb Body Mass Index (BMI) 36.0 Charges/Coding Procedures Integumentary 111xxx-113xx: 13450 Blanche subq tissue 20 sq cm/< Physical Exam Const alert and oriented x3 General Appearance: cooperative HEENT normocephalic Head and Scalp: atraumatic Resp normal respiratory effort Cardio regular rate Cardio Narrative: Left pedal pulse +2 Extremity normal capillary refill Extremity Narrative: Left leg edema +1, which is much improved since wearing the 3M 2 layer wraps. Skin Wound Narrative: Left anterior lower leg ulcer is beefy pink, smaller in size. Neuro Sensorium / Orientation: awake and alert Psych Appearance: well kempt Debridement Note Debridement Note Wound debrided: leg ulcer Laterality: Left Type of Debridement: Excisional debridement Anesthesia Used: 5% Lidocaine Gel Depth: Down to and including healthy tissue and in the subcutaneous layer Instrument Used: 3mm curette Tissue Removed: Non viable tissue and slough Severity: Fat Layer Exposed Amount of bleeding with debridement: Mild Bleeding Controlled with: Pressure and Compression and gauze Patient tolerated procedure: Patient tolerated procedure well Post-Debridement Measurements and Additional Note: Post-Debridement Measurements/Treatment - Nurse 1 - General Ulcer Assessment Start: 07/04/21 09:36 Freq: Status: Active Protocol: RUBIA Activity Type Activity Date Activity User E-Sign Co-Sign Detail Recorded Client Recorded Date Recorded By Document 07/04/21 09:36 DL [id number] 07/04/21 09:41 DL Document 07/11/21 09:25 [facility] [id number] 07/11/21 09:35 BMF Document 07/15/21 10:11 AK [id number] 07/15/21 10:12 AK Document 07/19/21 14:02 KR [id number] 07/19/21 14:06 KR Document 07/25/21 08:21 JF [id number] 07/25/21 08:21 JF Document 07/28/21 13:41 RB [id number] 07/28/21 13:45 RB Document 08/02/21 13:27 DL [id number] 08/02/21 13:32 DL 07/04/21 07/11/21 07/15/21 09:36 09:25 10:11 - Today's Visit Information Type of service Follow-up Visit Follow-up Visit Nurse-only (Physician/CREAM HAULER (Physician/CREAM HAULER Visit ) ) Arrival Mode Ambulatory Ambulatory Ambulatory Transfer Assistance None None Accompanied by HUSB IN CAR Patient Identification Verified (Name & Yes Yes Yes ) Patient Requires Transmission-Based No No No Precautions Safety Precautions NA Height and Weight Body Mass Index (BMI) 36.0 36.0 36.0 BMI Classification Obese Obese Obese Vital Signs Temperature (97.8 F-99.1 F) 98.3 F 98.5 F 96.6 F L Temperature Source Temporal Temporal Temporal Pulse Rate (60-100) 88 87 78 Pulse Location Monitor Monitor Monitor Respiratory Rate (12-18) 20 H 16 Respiratory rate source Observation Observation Oxygen Delivery Method Room Air Blood Pressure (90/60-120/80) 136/70 H 154/77 H 139/63 H Blood Pressure Mean (mm Hg) 92 102 88 Source Monitor Monitor Monitor Position Sitting Blood Pressure Location Left Arm History Since Last Visit- (Skip if this is Patient's initial visit) Have you changed medications since your No No No last visit? Any new allergies or adverse reactions No No No Had a fall/change in ADL's that may No No No increase risk of falls Signs or symptoms of abuse and/or No No No neglect since last visit Have you been in the hospital since your No No No last visit? Has dressing in place as prescribed Yes No Yes Has compression in place as prescribed Yes Yes N/A Has offloadiing in place as prescribed N/A N/A N/A Experienced any changes in pain level or No No No management Left Footwear Regular Shoe Regular Shoe Right Footwear Regular Shoe Regular Shoe Other Footwear PT SHOWERED AND REMOVED 3M PRIOR TO VISIT Pain Scale: 0-10 Numeric Is Patient Pain Free? Yes Yes Yes 07/19/21 07/25/21 07/28/21 14:02 08:21 13:41 WC - Today's Visit Information Type of service Follow-up Visit Follow-up Visit Follow-up Visit (Physician/CREAM HAULER (Physician/CREAM HAULER (Physician/CREAM HAULER ) ) ) Arrival Mode Ambulatory Ambulatory Ambulatory Transfer Assistance None Accompanied by Patient Identification Verified (Name & Yes Yes ) Patient Requires Transmission-Based No No Precautions Safety Precautions Height and Weight Body Mass Index (BMI) 36.0 36.0 36.0 BMI Classification Obese Obese Obese Vital Signs Temperature (97.8 F-99.1 F) 96.8 F L 97.1 F L 97 F L Temperature Source Temporal Temporal Temporal Pulse Rate (60-100) 96 81 92 Pulse Location Monitor Monitor Monitor Respiratory Rate (12-18) 18 18 Respiratory rate source Observation Observation Oxygen Delivery Method Blood Pressure (90/60-120/80) 152/82 H 163/82 H 148/85 H Blood Pressure Mean (mm Hg) 105 109 106 Source Monitor Monitor Monitor Position Semi-Fowlers Semi-Fowlers Semi-Fowlers Blood Pressure Location Right Arm Left Arm Left Arm History Since Last Visit- (Skip if this is Patient's initial visit) Have you changed medications since your No No No last visit? Any new allergies or adverse reactions No No No Had a fall/change in ADL's that may No No No increase risk of falls Signs or symptoms of abuse and/or No No No neglect since last visit Have you been in the hospital since your No No No last visit? Has dressing in place as prescribed Yes Yes Yes Has compression in place as prescribed Yes Yes Yes Has offloadiing in place as prescribed N/A N/A No Experienced any changes in pain level or No No No management Left Footwear Regular Shoe Regular Shoe Right Footwear Regular Shoe Regular Shoe Other Footwear Pain Scale: 0-10 Numeric Is Patient Pain Free? Yes Yes Yes 08/02/21 13:27 WC - Today's Visit Information Type of service Follow-up Visit (Physician/CREAM HAULER ) Arrival Mode Ambulatory Transfer Assistance None Accompanied by Patient Identification Verified (Name & Yes ) Patient Requires Transmission-Based No Precautions Safety Precautions Height and Weight Body Mass Index (BMI) 36.0 BMI Classification Obese Vital Signs Temperature (97.8 F-99.1 F) 97.2 F L Temperature Source Temporal Pulse Rate (60-100) 80 Pulse Location Monitor Respiratory Rate (12-18) 18 Respiratory rate source Observation Oxygen Delivery Method Blood Pressure (90/60-120/80) 165/85 H Blood Pressure Mean (mm Hg) 111 Source Monitor Position Blood Pressure Location History Since Last Visit- (Skip if this is Patient's initial visit) Have you changed medications since your No last visit? Any new allergies or adverse reactions No Had a fall/change in ADL's that may No increase risk of falls Signs or symptoms of abuse and/or No neglect since last visit Have you been in the hospital since your No last visit? Has dressing in place as prescribed Yes Has compression in place as prescribed Yes Has offloadiing in place as prescribed N/A Experienced any changes in pain level or No management Left Footwear Right Footwear Other Footwear Pain Scale: 0-10 Numeric Is Patient Pain Free? Yes WC - Nurse 1 - General Ulcer Measurement Start: 07/04/21 09:36 Freq: Status: Active Protocol: Activity Type Activity Date Activity User E-Sign Co-Sign Detail Recorded Client Recorded Date Recorded By Document 07/04/21 09:36 DL [id number] 07/04/21 09:41 DL Document 07/11/21 09:25 BMF [id number] 07/11/21 09:35 BMF Document 07/19/21 14:02 KR [id number] 07/19/21 14:06 KR Document 07/25/21 08:21 JF [id number] 07/25/21 08:22 JF Document 07/28/21 13:41 RB [id number] 07/28/21 13:45 RB Document 08/02/21 13:27 DL [id number] 08/02/21 13:32 DL 07/04/21 07/11/21 07/19/21 09:36 09:25 14:02 Wound Center Nurse 1 #1- L GERMAN POST OP -Combined with other wound No -Current Size (cm) - Length 2.8 2.6 2.3 -Current Size (cm) - Width 0.7 1 0.6 -Current Size (cm) - Depth 0.1 0.1 0.1 -Total Square Cm 1.96 2.6 1.38 -Photo Taken No No -Epithelialization Small 1-33% -Tunneling No -Undermining/Tunneling No -Circular Undermining No -Exudate Amt Small Medium Small -Exudate Type Serosanguineous Serosanguineous Serosanguineous -Wound Margin Distinct, Distinct, Distinct, Outline Outline Outline Attached Attached Attached -Granulation Amt Large (67-100%) Large (67-100%) Large (67-100%) -Granulation Quality [place] -Slough/Fibrin Yes -Necrosis Amt None Present (0 Small (1-33%) None Present (0 %) %) -Necrotic Tissue Type Adherent Slough -Structure Exposed Fat Layer Exposed -Texture (Mackenzie-wound Skin Appearance) Scarring Assessed, Assessed, Scarring Scarring -Moisture (Mackenzie-wound Skin Appearance) No Abnormality Assessed No Abnormality, Assessed -Color (Mackenzie-wound Skin Appearance) No Abnormality Assessed No Abnormality, Assessed -Temperature (Mackenzie-wound Skin No Abnormality No Abnormality No Abnormality Appearance) (Pt Warm) (Pt Warm) (Pt Warm) -Tenderness on Palpation (Mackenzie-wound No No No Skin Appearance) -Ulcer Cleansing Rinsed/ Soap and Water Rinsed/ Irrigated with Irrigated with Saline Saline -Foul Odor after Cleansing No No No -Anesthetic Used 5% Lidocaine 5% Lidocaine 4% Lidocaine Gel Gel Solution Lower Limb Edema Present Yes Left Calf (cm) 40 41.2 40.0 Left Ankle (cm) 25 26.2 23.6 07/25/21 07/28/21 08/02/21 08:21 13:41 13:27 Wound Center Nurse 1 #1- L GERMAN POST OP -Combined with other wound No No -Current Size (cm) - Length 1.5 0.1 -Current Size (cm) - Width 0.5 0.1 -Current Size (cm) - Depth 0.1 0.1 -Total Square Cm 0.75 0.01 -Photo Taken No Yes -Epithelialization Large 67-100% -Tunneling -Undermining/Tunneling No -Circular Undermining No -Exudate Amt Small Medium None Present -Exudate Type Serosanguineous Serosanguineous -Wound Margin Flat & Intact Distinct, Distinct, Outline Outline Attached Attached -Granulation Amt Medium (34-66%) Medium (34-66%) Large (67-100%) -Granulation Quality [place] -Slough/Fibrin Yes Yes -Necrosis Amt Small (1-33%) Small (1-33%) None Present (0 %) -Necrotic Tissue Type Adherent Slough Adherent Slough -Structure Exposed N/A N/A N/A -Texture (Mackenzie-wound Skin Appearance) Assessed, Assessed, Scarring Localized Edema Scarring ,Scarring -Moisture (Mackenzie-wound Skin Appearance) Assessed,Dry/ Assessed No Abnormality Scaly -Color (Mackenzie-wound Skin Appearance) Assessed Assessed No Abnormality -Temperature (Mackenzie-wound Skin No Abnormality No Abnormality No Abnormality Appearance) (Pt Warm) (Pt Warm) (Pt Warm) -Tenderness on Palpation (Mackenzie-wound No No No Skin Appearance) -Ulcer Cleansing Rinsed/ Wound Cleanser Soap and Water Irrigated with Saline -Foul Odor after Cleansing No No No -Anesthetic Used 4% Lidocaine 5% Lidocaine Solution Gel Lower Limb Edema Present Yes Yes Left Calf (cm) 40.0 37.5 41 Left Ankle (cm) 25.0 27 27.2 - Nurse 2 - General Ulcer CM Notes Start: 07/04/21 09:36 Freq: Status: Active Protocol: Activity Type Activity Date Activity User E-Sign Co-Sign Detail Recorded Client Recorded Date Recorded By Document 07/04/21 10:00 [id number] 07/04/21 10:03 Document 07/11/21 10:05 PL [id number] 07/11/21 10:06 PL Document 07/19/21 14:40 [id number] 07/19/21 14:42 Document 07/25/21 08:38 [id number] 07/25/21 08:41 Document 08/02/21 13:41 [id number] 08/02/21 13:44 07/04/21 07/11/21 07/19/21 10:00 10:05 14:40 Wound Center Nurse 2 #1- L GERMAN POST OP -Time 10:00 09:43 14:41 -Correct Patient Yes Yes Yes -Correct Side, Site, Position Yes Yes Yes -Correct Procedure Yes Yes Yes -Procedure Performed Yes Yes Yes -Type of Procedure Debridement Debridement Debridement -Clinical Debridement Subcutaneous Subcutaneous Subcutaneous -Tissue Removed Subcutaneous Subcutaneous Subcutaneous -Post Debridement (cm) - Length 2.8 3.0 2.3 -Post Debridement (cm) - Width 1.2 1.0 0.7 -Post Debridement (cm) - Depth 0.1 0.1 0.1 -Total Square (Post) (cm) 3.36 3.00 1.61 -Area of Debridement (cm) - Length 2.8 3.0 2.3 -Area of Debridement (cm) - Width 1.2 1.0 0.7 -Total Square (Area) (cm) 3.36 3.00 1.61 -Tunneling No No No -Undermining/Tunneling No No No -Circular Undermining No No No -Wound/Ulcer Outcome Not Healed Not Healed Not Healed -Ulcer Cleansing Rinsed/ Rinsed/ Rinsed/ Irrigated with Irrigated with Irrigated with Saline Saline Saline -Foul Odor after Cleansing No No No -Bioengineered Tissue No No No -Bleeding Controlled with Pressure Pressure Pressure -Treatment Response Procedure Procedure Procedure Tolerated Well Tolerated Well Tolerated Well -Offloading No No -Debridement - Subq, 1st 20sq cm Yes Yes Yes Pain Scale: 0-10 Numeric Is Patient Pain Free? Yes Yes Yes 07/25/21 08/02/21 08:38 13:41 Wound Center Nurse 2 #1- L GERMAN POST OP -Time 08:39 13:41 -Correct Patient Yes Yes -Correct Side, Site, Position Yes Yes -Correct Procedure Yes Yes -Procedure Performed Yes Yes -Type of Procedure Debridement Debridement -Clinical Debridement Subcutaneous Subcutaneous -Tissue Removed Subcutaneous Subcutaneous -Post Debridement (cm) - Length 1.8 2.6 -Post Debridement (cm) - Width 0.7 0.5 -Post Debridement (cm) - Depth 0.1 0.1 -Total Square (Post) (cm) 1.26 1.30 -Area of Debridement (cm) - Length 1.8 2.6 -Area of Debridement (cm) - Width 0.7 0.5 -Total Square (Area) (cm) 1.26 1.30 -Tunneling No No -Undermining/Tunneling No No -Circular Undermining No No -Wound/Ulcer Outcome Not Healed Not Healed -Ulcer Cleansing Rinsed/ Rinsed/ Irrigated with Irrigated with Saline Saline -Foul Odor after Cleansing No No -Bioengineered Tissue No No -Bleeding Controlled with Pressure Pressure -Treatment Response Procedure Procedure Tolerated Well Tolerated Well -Offloading No No -Debridement - Subq, 1st 20sq cm Yes Yes Pain Scale: 0-10 Numeric Is Patient Pain Free? Yes Yes - Nurse 3 - General Ulcer D/C NN Start: 07/04/21 09:36 Freq: Status: Active Protocol: Activity Type Activity Date Activity User E-Sign Co-Sign Detail Recorded Client Recorded Date Recorded By Document 07/04/21 10:08 DL [id number] 07/04/21 10:16 DL Edit Result 07/04/21 10:08 DL (1) [id number] 07/05/21 07:09 PL Document 07/11/21 10:08 AK [id number] 07/11/21 10:09 AK Document 07/15/21 10:11 AK [id number] 07/15/21 10:12 AK Document 07/19/21 14:54 AK [id number] 07/19/21 14:55 AK Document 07/25/21 08:50 AK [id number] 07/25/21 08:51 AK Document 07/28/21 13:45 RB [id number] 07/28/21 13:48 RB (1) Left - Multi-Layered Wrap Application => Multi-Layer Comp - => Left ($) 07/04/21 07/11/21 07/15/21 10:08 10:08 10:11 Wound Care Nurse 3 #1- L GERMAN POST OP -Ulcer Cleansing Not Cleansed Rinsed/ Soap and Water Irrigated with Saline -Foul Odor after Cleansing No No No -Negative Pressure Wound Therapy N/A N/A -Primary Dressing Applied Promogran Optilok 6.5x10, Optilok 6.5x10, Nuha Matter Promogran Promogran Nuha Matter Nuha Matter -Other Dressing moistened nuha -Primary Dressing Covered/Secured with Dry Gauze -Optilok 6.5x10 1 1 -Promogran Nuha Matter 1 1 1 Left -Lotion applied to leg before Yes compression wrap -Multi-Layered Wrap Application Multi-Layer Multi-Layer Multi-Layer Comp - Left ($) Comp - Left ($) Comp - Left ($) Treatment Response Vital Signs Temperature (97.8 F-99.1 F) 96.6 F L Temperature Source Temporal Pulse Rate (60-100) 78 Pulse Location Monitor Blood Pressure (90/60-120/80) 139/63 H Blood Pressure Mean (mm Hg) 88 Source Monitor Pain Scale: 0-10 Numeric Is Patient Pain Free? Yes Yes Yes WC - Visit Discharge Discharge Condition Stable Stable Stable Ambulatory Status Ambulatory Ambulatory Ambulatory Transportation Private Auto Private Auto Private Auto Medication Reconcilliation completed & Yes Yes provided to patient/care provider Clinical Summary of Care Provided Yes Yes 07/19/21 07/25/21 07/28/21 14:54 08:50 13:45 Wound Care Nurse 3 #1- L GERMAN POST OP -Ulcer Cleansing Rinsed/ Rinsed/ Rinsed/ Irrigated with Irrigated with Irrigated with Saline Saline Saline -Foul Odor after Cleansing No No -Negative Pressure Wound Therapy N/A N/A -Primary Dressing Applied NonAdherent NonAdherent NonAdherent Contact Layer, Contact Layer, Contact Layer Promogran Promogran Nuha Matter Nuha Matter -Other Dressing nuha -Primary Dressing Covered/Secured with Dry Gauze Dry Gauze, Dry Gauze Secured with Tape -Optilok 6.5x10 -Promogran Nuha Matter 0 1 Left -Lotion applied to leg before Yes compression wrap -Multi-Layered Wrap Application Multi-Layer Multi-Layer Multi-Layer Comp - Left ($) Comp - Left ($) Comp - Left ($) Treatment Response Procedure Tolerated Well Vital Signs Temperature (97.8 F-99.1 F) Temperature Source Pulse Rate (60-100) Pulse Location Blood Pressure (90/60-120/80) Blood Pressure Mean (mm Hg) Source Pain Scale: 0-10 Numeric Is Patient Pain Free? Yes Yes Yes WC - Visit Discharge Discharge Condition Stable Stable Stable Ambulatory Status Ambulatory Ambulatory Ambulatory Transportation Private Auto Private Auto Private Auto Medication Reconcilliation completed & Yes Yes No provided to patient/care provider Clinical Summary of Care Provided Yes Yes Yes Assessment/Plan Assessment/Plan (1) Ulcer of left lower extremity with fat layer exposed: CODE(S): L97.922 - Non-pressure chronic ulcer of unspecified part of left lower leg with fat layer exposed (2) Edema of both lower legs: CODE(S): R60.0 - Localized edema (3) Animal bite: CODE(S): T14.8XXA - Other injury of unspecified body region, initial encounter (4) Lupus: CODE(S): M32.9 - Systemic lupus erythematosus, unspecified (5) History of excision of lesion: CODE(S): Z98.890 - Other specified postprocedural states; Z87.2 - Personal history of diseases of the skin and subcutaneous tissue PLAN: Wound care - She completed 9 applications of Theraskin. Applying moistened Nuha covered with adaptic and topped with ABD or super absorber dressing. Will continue the 3M 2 layer wraps for compression. The compression has really improved her ulcer over the past several weeks. Will reapply the 3M 2 layer wraps again this week. Ordered knee high compression stockings for her to start to wear for compression but she received notification that the company said they are on back order. Will refer her to [facility] to be fit for Compression stockings 30-40 mmHg. Wound culture obtained 05/16/21 which was positive for Serratia marcenscens and Anaerobic cocci. She completed Flagyl and the Levaquin. Left leg ultrasound on 05/16/21 was negative for DVT. Wound culture obtained on 01/03/21 which was positive for MRSA. She has completed her Linezolid. Operative cultures positive for Enterococcus avium, Enterococcus gallinarum, Turicella otitidis and Bacteroides thetaiotaomicron. Fungal cultures positive for Sara tropicalis. She completed Linezolid and Flagyl and Diflucan. Because of her history of Lupus she may have delayed wound healing. Follow up one week for a nurse visit to change her 3M 2 layer wraps. Follow up two weeks to see me. Call or come in sooner if having any issues or difficulty.
== END 2021-08-02 23:59 | disposition home or self-care (01) ==
LOC: WC 13:15
PROVIDERS: PCP Family Medicine Geriatric Medicine; Visit Provider Nurse Practitioner Family
DX: L97.822 Non-pressure chronic ulcer of other part of left lower leg with fat layer exposed (principal); M32.9 Systemic lupus erythematosus, unspecified; R60.0 Localized edema; S81.852S Open bite, left lower leg, sequela; W55.41 Bitten by pig
CPT/HCPCS: 11042; 29581

== ENCOUNTER → 2021-08-10 | Outpatient (CLI) | payer MEDICARE, OTHER, SELFPAY ==
--- NOTE | 2021-08-10 11:05 | BI_ITS ---
MAMMOGRAPHY - BILATERAL SCREENING REASON FOR EXAM: Female, 71 years old. Routine annual screening examination. PERTINENT HISTORY: Mother with breast cancer. Aunt with breast cancer. TECHNIQUE: Digital bilateral breast iesha (3D mammographic acquisition) in the CC and MLO projections. 2-D mediolateral oblique (MLO) and craniocaudad (CC) views of both breasts were obtained. CAD: Full Field Digital Mammography with Computer Added Detection was performed. COMPARISON: Comparison is made with prior study dated 08/23/2017. FINDINGS: Breast Composition: The breasts are almost entirely fatty. There are no dominant masses or suspicious calcifications. Stable 7 mm well-defined nodular density in the central lateral aspect of the right breast suggestive of a small lymph node. No other significant abnormalities are identified. There has been no significant change since the prior study. BI/SCRN MAMM (CAD)W/IESHA BILAT IMPRESSION: Stable bilateral screening mammogram. Yearly follow-up mammogram recommended. (A) ASSESSMENT CATEGORY: BIRADS Category 2: Benign. A letter regarding these results will be sent to the patient by the facility within 30 days. Approximately 10% of breast cancers are not detected by mammography. A normal mammogram should not delay biopsy of a clinically suspicious abnormality. [id number] Electronically Signed: Billy Mathew MD at 13:20 EDT ,
== END | disposition home or self-care (01) ==
LOC: OPBI 10:50
PROVIDERS: PCP Family Medicine Geriatric Medicine; Referring Provider Family Medicine Geriatric Medicine; Visit Provider Family Medicine Geriatric Medicine
DX: Z12.31 Encounter for screening mammogram for malignant neoplasm of breast (principal); Z80.3 Family history of malignant neoplasm of breast
CPT/HCPCS: 77063; 77067

== ENCOUNTER 2021-08-29 09:30 | Outpatient (RCR) | payer MEDICARE, OTHER, SELFPAY ==
[2021-08-03 00:37] VITALS: BP 165/85; PULSE 80; RESP 18; TEMP 36.2; BMI 36.0
[2021-08-09 13:16] VITALS: BP 143/62; PULSE 59; TEMP 36.2; BMI 36.0
[2021-08-15 09:26] VITALS: BP 150/75; PULSE 84; TEMP 35.7; BMI 36.0
--- NOTE | 2021-08-15 12:14 | PCM.WC.PN ---
History of Present Illness Date of Service: 08/15/21 Chief Complaint: Nonhealing ulcer left anterior leg. History of Wound: Surgery 11/19/20 - Surgical preparation left anterior leg with incision and drainage and excisional debridement pig bite wound infection abscess with skin necrosis (96 cm2). Wound care - Moistened Alicia topped with a super absorber gauze. 3M 2layer wraps for compression on the left leg. Compression is to be left on for a week. Wound culture obtained 05/16/21 which was positive for Serratia marcenscens and Anaerobic cocci. She has completed the Metronidazole. She continues to take the Levofloxicin. Left leg ultrasound on 05/16/21 was negative for DVT. She was placed on Levaquin on 12/29/20 because home health called stating that her mackenzie wound was red and warm. Wound culture 01/03/21. It showed MRSA. She was started on Linezolid. Operative cultures positive for Enterococcus avium, Enterococcus gallinarum, Turicella otitidis and Bacteroides thetaiotaomicron. Fungal cultures positive for Sara tropicalis. She completed Linezolid and Flagyl. She was started on Diflucan daily. Labs from 01/05/22 showed Total Bilirubin was 0.20, AST was 12, ALT was 23, Alkaline Phosphatase was 72, Albumin was 3.6. Today she denies any fevers, chills, nausea or vomiting. She states her appetite is good and she has increased her protein intake. Progress of Wound: Left leg ulcer is much smaller in size tis week. Objective Data Objective Data Vital Signs: Vital Signs Temp Pulse Resp BP 96.3 F L 84 18 150/75 H 08/15/21 09:26 08/15/21 09:26 08/03/21 00:37 08/15/21 09:26 Weight: 230 lb Body Mass Index (BMI) 36.0 Charges/Coding Procedures Integumentary 111xxx-113xx: 57637 Blanche subq tissue 20 sq cm/< Physical Exam Const alert and oriented x3 General Appearance: cooperative HEENT normocephalic Head and Scalp: atraumatic Resp normal respiratory effort Cardio regular rate Cardio Narrative: Left pedal pulse +2 Extremity normal capillary refill Extremity Narrative: Left leg edema +1, which is much improved since wearing the 3M 2 layer wraps. Skin Wound Narrative: Left anterior lower leg ulcer is beefy pink, much smaller in size. Neuro Sensorium / Orientation: awake and alert Psych Appearance: well kempt Debridement Note Debridement Note Wound debrided: anterior leg ulcer Laterality: Left Type of Debridement: Excisional debridement Anesthesia Used: 5% Lidocaine Gel Depth: Down to and including healthy tissue and in the subcutaneous layer Percentage of wound debrided: 100 Instrument Used: 3mm curette Tissue Removed: Non viable tissue and slough Severity: Fat Layer Exposed Amount of bleeding with debridement: Mild Bleeding Controlled with: Pressure Patient tolerated procedure: Patient tolerated procedure well Post-Debridement Measurements and Additional Note: Post-Debridement Measurements/Treatment - Nurse 1 - General Ulcer Assessment Start: 08/09/21 13:16 Freq: Status: Active Protocol: RUBIA Activity Type Activity Date Activity User E-Sign Co-Sign Detail Recorded Client Recorded Date Recorded By Document 08/09/21 13:16 KS [id number] 08/09/21 13:18 KS Document 08/15/21 09:26 KS [id number] 08/15/21 09:35 KS 08/09/21 08/15/21 13:16 09:26 - Today's Visit Information Type of service Nurse-only Follow-up Visit Visit (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 ) Arrival Mode Ambulatory Ambulatory Patient Identification Verified (Name & Yes Yes ) Patient Requires Transmission-Based No No Precautions Safety Precautions NA Height and Weight Body Mass Index (BMI) 36.0 36.0 BMI Classification Obese Obese Vital Signs Temperature (97.8 F-99.1 F) 97.2 F L 96.3 F L Temperature Source Temporal Temporal Pulse Rate (60-100) 59 L 84 Pulse Location Monitor Monitor Blood Pressure (90/60-120/80) 143/62 H 150/75 H Blood Pressure Mean (mm Hg) 89 100 Source Monitor Monitor History Since Last Visit- (Skip if this is Patient's initial visit) Have you changed medications since your No No last visit? Any new allergies or adverse reactions No No Had a fall/change in ADL's that may No No increase risk of falls Signs or symptoms of abuse and/or No No neglect since last visit Have you been in the hospital since your No No last visit? Has dressing in place as prescribed Yes Yes Has compression in place as prescribed Yes Yes Has offloadiing in place as prescribed N/A N/A Experienced any changes in pain level or No No management Left Footwear Regular Shoe Regular Shoe Right Footwear Regular Shoe Regular Shoe Pain Scale: 0-10 Numeric Is Patient Pain Free? Yes Yes GIORGI - Nurse 1 - General Ulcer Measurement Start: 08/09/21 13:16 Freq: Status: Active Protocol: Activity Type Activity Date Activity User E-Sign Co-Sign Detail Recorded Client Recorded Date Recorded By Document 08/15/21 09:26 SEBASTIAN [id number] 08/15/21 09:35 SEBASTIAN 08/15/21 09:26 Wound Center Nurse 1 #1- L GERMAN POST OP -Combined with other wound No -Current Size (cm) - Length 0.1 -Current Size (cm) - Width 0.1 -Current Size (cm) - Depth 0.1 -Total Square Cm 0.01 -Date of Last Picture (Recall this 08/15/21 field) -Photo Taken Yes -Tunneling No -Undermining/Tunneling No -Circular Undermining No -Exudate Amt None Present -Wound Margin Distinct, Outline Attached -Granulation Amt Small (1-33%) -Granulation Quality Pale,[place] -Slough/Fibrin Yes -Necrosis Amt Small (1-33%) -Necrotic Tissue Type Adherent Slough -Structure Exposed N/A -Texture (Mackenzie-wound Skin Appearance) No Abnormality, Assessed -Moisture (Mackenzie-wound Skin Appearance) No Abnormality, Assessed -Color (Mackenzie-wound Skin Appearance) No Abnormality, Assessed -Temperature (Mackenzie-wound Skin No Abnormality Appearance) (Pt Warm) -Tenderness on Palpation (Mackenzie-wound No Skin Appearance) -Ulcer Cleansing Rinsed/ Irrigated with Saline -Foul Odor after Cleansing No -Anesthetic Used 4% Lidocaine Solution Left Calf (cm) 43 Left Ankle (cm) 26.5 GIORGI - Nurse 2 - General Ulcer CM Notes Start: 08/09/21 13:16 Freq: Status: Active Protocol: Activity Type Activity Date Activity User E-Sign Co-Sign Detail Recorded Client Recorded Date Recorded By Document 08/15/21 10:02 SHAQ [id number] 08/15/21 10:05 SHAQ 08/15/21 10:02 Wound Center Nurse 2 #1- L GERMAN POST OP -Time 10:03 -Correct Patient Yes -Correct Side, Site, Position Yes -Correct Procedure Yes -Procedure Performed Yes -Type of Procedure Debridement -Clinical Debridement Subcutaneous -Tissue Removed Subcutaneous -Post Debridement (cm) - Length 0.5 -Post Debridement (cm) - Width 0.2 -Post Debridement (cm) - Depth 0.1 -Total Square (Post) (cm) 0.10 -Area of Debridement (cm) - Length 0.5 -Area of Debridement (cm) - Width 0.2 -Total Square (Area) (cm) 0.10 -Tunneling No -Undermining/Tunneling No -Circular Undermining No -Wound/Ulcer Outcome Not Healed -Ulcer Cleansing Rinsed/ Irrigated with Saline -Foul Odor after Cleansing No -Bioengineered Tissue No -Bleeding Controlled with Pressure -Treatment Response Procedure Tolerated Well -Offloading No -Debridement - Subq, 1st 20sq cm Yes Pain Scale: 0-10 Numeric Is Patient Pain Free? Yes - Nurse 3 - General Ulcer D/C NN Start: 08/09/21 13:16 Freq: Status: Active Protocol: Activity Type Activity Date Activity User E-Sign Co-Sign Detail Recorded Client Recorded Date Recorded By Document 08/09/21 13:16 KS [id number] 08/09/21 13:18 KS Document 08/15/21 10:23 KS [id number] 08/15/21 10:24 KS 08/09/21 08/15/21 13:16 10:23 Vital Signs Temperature (97.8 F-99.1 F) 97.2 F L Temperature Source Temporal Pulse Rate (60-100) 59 L Pulse Location Monitor Blood Pressure (90/60-120/80) 143/62 H Blood Pressure Mean (mm Hg) 89 Source Monitor Pain Scale: 0-10 Numeric Is Patient Pain Free? Yes Yes Wound Care Nurse 3 #1- L GERMAN POST OP -Ulcer Cleansing Rinsed/ Rinsed/ Irrigated with Irrigated with Saline Saline -Foul Odor after Cleansing No No -Negative Pressure Wound Therapy N/A N/A -Primary Dressing Applied Promogran C Hydrogel ($), Alicia Matter NonAdherent Contact Layer -Primary Dressing Covered/Secured with Dry Gauze Dry Gauze & Roll Gauze, Secured with Tape -Promogran Alicia Matter 1 Left -Multi-Layered Wrap Application Multi-Layer Comp - Left ($) WC - Visit Discharge Discharge Condition Stable Stable Ambulatory Status Ambulatory Ambulatory Transportation Private Auto Private Auto Medication Reconcilliation completed & Yes Yes provided to patient/care provider Clinical Summary of Care Provided Yes Yes Notes: own compression sock applied Assessment/Plan Assessment/Plan (1) Ulcer of left lower extremity with fat layer exposed: CODE(S): L97.922 - Non-pressure chronic ulcer of unspecified part of left lower leg with fat layer exposed (2) Edema of both lower legs: CODE(S): R60.0 - Localized edema (3) Animal bite: CODE(S): T14.8XXA - Other injury of unspecified body region, initial encounter (4) Lupus: CODE(S): M32.9 - Systemic lupus erythematosus, unspecified (5) History of excision of lesion: CODE(S): Z98.890 - Other specified postprocedural states; Z87.2 - Personal history of diseases of the skin and subcutaneous tissue PLAN: Wound care - She completed 9 applications of Theraskin. Collagen hydrogel covered with adaptic and topped with gauze and ABD. The 3M 2 layer wraps for compression has really improved her ulcer over the past several weeks. Her compression stockings came in the mail, so will apply those today. Wound culture obtained 05/16/21 which was positive for Serratia marcenscens and Anaerobic cocci. She completed Flagyl and the Levaquin. Left leg ultrasound on 05/16/21 was negative for DVT. Wound culture obtained on 01/03/21 which was positive for MRSA. She has completed her Linezolid. Operative cultures positive for Enterococcus avium, Enterococcus gallinarum, Turicella otitidis and Bacteroides thetaiotaomicron. Fungal cultures positive for Sara tropicalis. She completed Linezolid and Flagyl and Diflucan. Because of her history of Lupus she may have delayed wound healing. Follow up one week. Call or come in sooner if having any issues or difficulty.
[2021-08-22 09:29] VITALS: BP 134/77; PULSE 95; TEMP 36.2; BMI 36.0
--- NOTE | 2021-08-22 12:26 | PN.PCM_ITS ---
History of Present Illness Date of Service: 08/22/21 Chief Complaint: Nonhealing ulcer left anterior leg. History of Wound: Surgery 11/19/20 - Surgical preparation left anterior leg with incision and drainage and excisional debridement pig bite wound infection abscess with skin necrosis (96 cm2). Wound care - Moistened Alicia topped with a super absorber gauze. 3M 2layer wraps for compression on the left leg. Compression is to be left on for a week. She received her compression stockings and they keep rolling down and causing pain. Wound culture obtained 05/16/21 which was positive for Serratia marcenscens and Anaerobic cocci. She has completed the Metronidazole. She continues to take the Levofloxicin. Left leg ultrasound on 05/16/21 was negative for DVT. She was placed on Levaquin on 12/29/20 because home health called stating that her mackenzie wound was red and warm. Wound culture 01/03/21. It showed MRSA. She was started on Linezolid. Operative cultures positive for Enterococcus avium, Enterococcus gallinarum, Turicella otitidis and Bacteroides thetaiotaomicron. Fungal cultures positive for Sara tropicalis. She completed Linezolid and Flagyl. She was started on Diflucan daily. Labs from 01/05/22 showed Total Bilirubin was 0.20, AST was 12, ALT was 23, Alkaline Phosphatase was 72, Albumin was 3.6. Today she denies any fevers, chills, nausea or vomiting. She states her appetite is good and she has increased her protein intake. Progress of Wound: Left leg ulcer is stable. Her edema has increased with the compression stockings and the patient states that they are causing her pain because they constantly are rolling down. Objective Data Objective Data Vital Signs: Vital Signs Temp Pulse Resp BP 97.2 F L 95 18 134/77 H 08/22/21 09:29 08/22/21 09:29 08/03/21 00:37 08/22/21 09:29 Weight: 230 lb Body Mass Index (BMI) 36.0 Charges/Coding Procedures Integumentary 111xxx-113xx: 06037 Blanche subq tissue 20 sq cm/< Physical Exam Const alert and oriented x3 General Appearance: cooperative HEENT normocephalic Head and Scalp: atraumatic Resp normal respiratory effort Cardio regular rate Cardio Narrative: Left pedal pulse +2 Extremity normal capillary refill Extremity Narrative: Left leg edema +2, which has increased this past week due to her wearing her compression stocking and not the 3M 2 layer wrap. Skin Wound Narrative: Left anterior lower leg ulcer is beefy pink, and stable in size. Neuro Sensorium / Orientation: awake and alert Psych Appearance: well kempt Debridement Note Debridement Note Wound debrided: anterior leg ulcer Laterality: Left Type of Debridement: Excisional debridement Anesthesia Used: 5% Lidocaine Gel Depth: Down to and including healthy tissue and in the subcutaneous layer Percentage of wound debrided: 100 Instrument Used: - (1 mm curette) Tissue Removed: Non viable tissue and slough Severity: Fat Layer Exposed Amount of bleeding with debridement: Mild Bleeding Controlled with: Pressure Patient tolerated procedure: Patient tolerated procedure well Post-Debridement Measurements and Additional Note: Post-Debridement Measurements/Treatment - Nurse 1 - General Ulcer Assessment Start: 08/09/21 13:16 Freq: Status: Active Protocol: RUBIA Activity Type Activity Date Activity User E-sign Co-sign Detail Recorded Client Recorded Date Recorded By Document 08/09/21 13:16 MI [id number] 08/09/21 13:18 AK Document 08/15/21 09:26 AK [id number] 08/15/21 09:35 AK Document 08/22/21 09:29 KR [id number] 08/22/21 09:33 KR 08/09/21 08/15/21 08/22/21 13:16 09:26 09:29 - Today's Visit Information Type of service Nurse-only Follow-up Visit Follow-up Visit Visit (Physician/[employer]ER GRADE [employer] (Physician/[employer] ) ) Arrival Mode Ambulatory Ambulatory Ambulatory Patient Identification Verified (Name & Yes Yes Yes ) Patient Requires Transmission-Based No No Precautions Safety Precautions NA Height and Weight Body Mass Index (BMI) 36.0 36.0 36.0 BMI Classification Obese Obese Obese Vital Signs Temperature (97.8 F-99.1 F) 97.2 F L 96.3 F L 97.2 F L Temperature Source Temporal Temporal Temporal Pulse Rate (60-100) 59 L 84 95 Pulse Location Monitor Monitor Monitor Blood Pressure (90/60-120/80) 143/62 H 150/75 H 134/77 H Blood Pressure Mean (mm Hg) 89 100 96 Source Monitor Monitor Monitor Position Semi-Fowlers Blood Pressure Location Right Arm History Since Last Visit- (Skip if this is Patient's initial visit) Have you changed medications since your No No No last visit? Any new allergies or adverse reactions No No No Had a fall/change in ADL's that may No No No increase risk of falls Signs or symptoms of abuse and/or No No No neglect since last visit Have you been in the hospital since your No No No last visit? Has dressing in place as prescribed Yes Yes Yes Has compression in place as prescribed Yes Yes Yes Has offloadiing in place as prescribed N/A N/A N/A Experienced any changes in pain level or No No No management Left Footwear Regular Shoe Regular Shoe Regular Shoe Right Footwear Regular Shoe Regular Shoe Regular Shoe Pain Scale: 0-10 Numeric Is Patient Pain Free? Yes Yes Yes WC - Nurse 1 - General Ulcer Measurement Start: 08/09/21 13:16 Freq: Status: Active Protocol: Activity Type Activity Date Activity User E-sign Co-sign Detail Recorded Client Recorded Date Recorded By Document 08/15/21 09:26 AK [id number] 08/15/21 09:35 AK Document 08/22/21 09:29 KR [id number] 08/22/21 09:33 KR 08/15/21 08/22/21 09:26 09:29 Wound Center Nurse 1 #1- L GERMAN POST OP -Combined with other wound No -Current Size (cm) - Length 0.1 1.3 -Current Size (cm) - Width 0.1 0.2 -Current Size (cm) - Depth 0.1 0.1 -Total Square Cm 0.01 0.26 -Date of Last Picture (Recall this 08/15/21 field) -Photo Taken Yes -Tunneling No -Undermining/Tunneling No -Circular Undermining No -Exudate Amt None Present Small -Exudate Type Serosanguineous -Wound Margin Distinct, Distinct, Outline Outline Attached Attached -Granulation Amt Small (1-33%) Small (1-33%) -Granulation Quality Pale,[place] -Slough/Fibrin Yes -Necrosis Amt Small (1-33%) Small (1-33%) -Necrotic Tissue Type Adherent Slough Adherent Slough -Structure Exposed N/A -Texture (Mackenzie-wound Skin Appearance) No Abnormality, Assessed, Assessed Scarring -Moisture (Mackenzie-wound Skin Appearance) No Abnormality, No Abnormality, Assessed Assessed -Color (Mackenzie-wound Skin Appearance) No Abnormality, No Abnormality, Assessed Assessed -Temperature (Mackenzie-wound Skin No Abnormality No Abnormality Appearance) (Pt Warm) (Pt Warm) -Tenderness on Palpation (Mackenzie-wound No No Skin Appearance) -Ulcer Cleansing Rinsed/ Rinsed/ Irrigated with Irrigated with Saline Saline -Foul Odor after Cleansing No No -Anesthetic Used 4% Lidocaine 5% Lidocaine Solution Gel Left Calf (cm) 43 43 Left Ankle (cm) 26.5 29.2 WC - Nurse 2 - General Ulcer CM Notes Start: 08/09/21 13:16 Freq: Status: Active Protocol: Activity Type Activity Date Activity User E-sign Co-sign Detail Recorded Client Recorded Date Recorded By Document 08/15/21 10:02 [id number] 08/15/21 10:05 Document 08/22/21 10:16 [id number] 08/22/21 10:17 08/15/21 08/22/21 10:02 10:16 Wound Center Nurse 2 #1- L GERMAN POST OP -Time 10:03 10:16 -Correct Patient Yes Yes -Correct Side, Site, Position Yes Yes -Correct Procedure Yes Yes -Procedure Performed Yes Yes -Type of Procedure Debridement Incision & Drainage -Clinical Debridement Subcutaneous -Tissue Removed Subcutaneous Epidermis, Subcutaneous -Post Debridement (cm) - Length 0.5 1.5 -Post Debridement (cm) - Width 0.2 0.2 -Post Debridement (cm) - Depth 0.1 0.1 -Total Square (Post) (cm) 0.10 0.30 -Area of Debridement (cm) - Length 0.5 1.5 -Area of Debridement (cm) - Width 0.2 0.2 -Total Square (Area) (cm) 0.10 0.30 -Tunneling No No -Undermining/Tunneling No No -Circular Undermining No No -Wound/Ulcer Outcome Not Healed Not Healed -Ulcer Cleansing Rinsed/ Rinsed/ Irrigated with Irrigated with Saline Saline -Foul Odor after Cleansing No No -Bioengineered Tissue No No -Bleeding Controlled with Pressure Pressure -Treatment Response Procedure Procedure Tolerated Well Tolerated Well -Offloading No No -Debridement - Subq, 1st 20sq cm Yes Yes Pain Scale: 0-10 Numeric Is Patient Pain Free? Yes Yes WC - Nurse 3 - General Ulcer D/C NN Start: 08/09/21 13:16 Freq: Status: Active Protocol: Activity Type Activity Date Activity User E-sign Co-sign Detail Recorded Client Recorded Date Recorded By Document 08/09/21 13:16 AK [id number] 08/09/21 13:18 AK Document 08/15/21 10:23 AK [id number] 08/15/21 10:24 AK Document 08/22/21 10:27 DL [id number] 08/22/21 10:29 DL 08/09/21 08/15/21 08/22/21 13:16 10:23 10:27 Vital Signs Temperature (97.8 F-99.1 F) 97.2 F L Temperature Source Temporal Pulse Rate (60-100) 59 L Pulse Location Monitor Blood Pressure (90/60-120/80) 143/62 H Blood Pressure Mean (mm Hg) 89 Source Monitor Pain Scale: 0-10 Numeric Is Patient Pain Free? Yes Yes Yes Wound Care Nurse 3 #1- L GERMAN POST OP -Ulcer Cleansing Rinsed/ Rinsed/ Rinsed/ Irrigated with Irrigated with Irrigated with Saline Saline Saline -Foul Odor after Cleansing No No No -Negative Pressure Wound Therapy N/A N/A -Primary Dressing Applied Promogran C Hydrogel ($), NonAdherent Alicia Matter NonAdherent Contact Layer Contact Layer -Other Dressing hydrogel -Primary Dressing Covered/Secured with Dry Gauze Dry Gauze & Dry Gauze & Roll Gauze, Roll Gauze Secured with Tape -Promogran Alicia Matter 1 Left -Multi-Layered Wrap Application Multi-Layer Multi-Layer Comp - Left ($) Comp - Left ($) Treatment Response Procedure Tolerated Well WC - Visit Discharge Discharge Condition Stable Stable Stable Ambulatory Status Ambulatory Ambulatory Ambulatory Transportation Private Auto Private Auto Private Auto Medication Reconcilliation completed & Yes Yes provided to patient/care provider Clinical Summary of Care Provided Yes Yes Notes: own compression sock applied Facility Type Home Health Orders Sent Yes Assessment/Plan Assessment/Plan (1) Ulcer of left lower extremity with fat layer exposed: CODE(S): L97.922 - Non-pressure chronic ulcer of 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 Collagen hydrogel covered with adaptic and topped with gauze. Will reapply the 3M 2 layer wraps for compression this week while she calls to see if the company she received her stockings through will send her a different size since hers keep rolling down. Wound culture obtained 05/16/21 which was positive for Serratia marcenscens and Anaerobic cocci. She completed Flagyl and the Levaquin. Left leg ultrasound on 05/16/21 was negative for DVT. Wound culture obtained on 01/03/21 which was positive for MRSA. She has completed her Linezolid. Operative cultures positive for Enterococcus avium, Enterococcus gallinarum, Turicella otitidis and Bacteroides thetaiotaomicron. Fungal cultures positive for Sara tropicalis. She completed Linezolid and Flagyl and Diflucan. Because of her history of Lupus she may have delayed wound healing. Follow up one week. Call or come in sooner if having any issues or difficulty.
[2021-08-25 13:38] VITALS: BP 148/67; PULSE 89; RESP 20; TEMP 35.8; BMI 36.0
[2021-08-29 09:27] VITALS: BP 159/94; PULSE 80; RESP 18; TEMP 35.7; BMI 36.0
--- NOTE | 2021-08-29 11:05 | PN.PCM_ITS ---
History of Present Illness Date of Service: 08/29/21 Chief Complaint: Nonhealing ulcer left anterior leg. History of Wound: Surgery 11/19/20 - Surgical preparation left anterior leg with incision and drainage and excisional debridement pig bite wound infection abscess with skin necrosis (96 cm2). Wound care - Moistened Alicia with adaptic covered with gauze daily. Double tubigrip. She is waiting to receive the proper size compression stocking. Wound culture obtained 05/16/21 which was positive for Serratia marcenscens and Anaerobic cocci. She has completed the Metronidazole. She continues to take the Levofloxicin. Left leg ultrasound on 05/16/21 was negative for DVT. She was placed on Levaquin on 12/29/20 because home health called stating that her mackenzie wound was red and warm. Wound culture 01/03/21. It showed MRSA. She was started on Linezolid. Operative cultures positive for Enterococcus avium, Enterococcus gallinarum, Turicella otitidis and Bacteroides thetaiotaomicron. Fungal cultures positive for Sara tropicalis. She completed Linezolid and Flagyl. She was started on Diflucan daily. Labs from 01/05/22 showed Total Bilirubin was 0.20, AST was 12, ALT was 23, Alkaline Phosphatase was 72, Albumin was 3.6. Today she denies any fevers, chills, nausea or vomiting. She states her appetite is good and she has increased her protein intake. Progress of Wound: Left leg ulcer is slightly smaller, the base is pink. She has +1-+2 non pitting edema. Objective Data Objective Data Vital Signs: Vital Signs Temp Pulse Resp BP 96.2 F L 80 18 159/94 H 08/29/21 09:27 08/29/21 09:27 08/29/21 09:27 08/29/21 09:27 Weight: 230 lb Body Mass Index (BMI) 36.0 Charges/Coding Procedures Integumentary 111xxx-113xx: 69172 Blanche subq tissue 20 sq cm/< Physical Exam Const alert and oriented x3 General Appearance: cooperative HEENT normocephalic Head and Scalp: atraumatic Resp normal respiratory effort Cardio regular rate Cardio Narrative: Left pedal pulse +2 Extremity normal capillary refill Extremity Narrative: Left leg edema +2, which has increased this past week due to her wearing her compression stocking and not the 3M 2 layer wrap. Skin Wound Narrative: Left anterior lower leg ulcer is beefy pink, and slightly smaller in size. Neuro Sensorium / Orientation: awake and alert Psych Appearance: well kempt Debridement Note Debridement Note Wound debrided: anterior leg ulcer Laterality: Left Type of Debridement: Excisional debridement Anesthesia Used: 5% Lidocaine Gel Depth: Down to and including healthy tissue and in the subcutaneous layer Percentage of wound debrided: 100 Instrument Used: 3mm curette Tissue Removed: Non viable tissue and slough Severity: Fat Layer Exposed Amount of bleeding with debridement: Mild Bleeding Controlled with: Pressure Patient tolerated procedure: Patient tolerated procedure well Post-Debridement Measurements and Additional Note: Post-Debridement Measurements/Treatment - Nurse 1 - General Ulcer Assessment Start: 08/09/21 13:16 Freq: Status: Active Protocol: RUBIA Activity Type Activity Date Activity User E-sign Co-sign Detail Recorded Client Recorded Date Recorded By Document 08/09/21 13:16 AK [id number] 08/09/21 13:18 AK Document 08/15/21 09:26 AK [id number] 08/15/21 09:35 AK Document 08/22/21 09:29 KR [id number] 08/22/21 09:33 KR Document 08/25/21 13:38 DL [id number] 08/25/21 13:40 DL Document 08/29/21 09:27 DL [id number] 08/29/21 09:31 DL 08/09/21 08/15/21 08/22/21 13:16 09:26 09:29 - Today's Visit Information Type of service Nurse-only Follow-up Visit Follow-up Visit Visit (Physician/DEPUTY JUVENILE OFFICER (Physician/DEPUTY JUVENILE OFFICER ) ) Arrival Mode Ambulatory Ambulatory Ambulatory Transfer Assistance Patient Identification Verified (Name & Yes Yes Yes ) Patient Requires Transmission-Based No No Precautions Safety Precautions NA Height and Weight Body Mass Index (BMI) 36.0 36.0 36.0 BMI Classification Obese Obese Obese Vital Signs Temperature (97.8 F-99.1 F) 97.2 F L 96.3 F L 97.2 F L Temperature Source Temporal Temporal Temporal Pulse Rate (60-100) 59 L 84 95 Pulse Location Monitor Monitor Monitor Respiratory Rate (12-18) Respiratory rate source Blood Pressure (90/60-120/80) 143/62 H 150/75 H 134/77 H Blood Pressure Mean (mm Hg) 89 100 96 Source Monitor Monitor Monitor Position Semi-Fowlers Blood Pressure Location Right Arm History Since Last Visit- (Skip if this is Patient's initial visit) Have you changed medications since your No No No last visit? Any new allergies or adverse reactions No No No Had a fall/change in ADL's that may No No No increase risk of falls Signs or symptoms of abuse and/or No No No neglect since last visit Have you been in the hospital since your No No No last visit? Has dressing in place as prescribed Yes Yes Yes Has compression in place as prescribed Yes Yes Yes Has offloadiing in place as prescribed N/A N/A N/A Experienced any changes in pain level or No No No management Left Footwear Regular Shoe Regular Shoe Regular Shoe Right Footwear Regular Shoe Regular Shoe Regular Shoe Pain Scale: 0-10 Numeric Is Patient Pain Free? Yes Yes Yes 08/25/21 08/29/21 13:38 09:27 WC - Today's Visit Information Type of service Nurse-only Follow-up Visit Visit (Physician/DEPUTY JUVENILE OFFICER ) Arrival Mode Ambulatory Ambulatory Transfer Assistance None None Patient Identification Verified (Name & Yes Yes ) Patient Requires Transmission-Based No No Precautions Safety Precautions Height and Weight Body Mass Index (BMI) 36.0 36.0 BMI Classification Obese Obese Vital Signs Temperature (97.8 F-99.1 F) 96.5 F L 96.2 F L Temperature Source Temporal Temporal Pulse Rate (60-100) 89 80 Pulse Location Monitor Monitor Respiratory Rate (12-18) 20 H 18 Respiratory rate source Observation Observation Blood Pressure (90/60-120/80) 148/67 H 159/94 H Blood Pressure Mean (mm Hg) 94 115 Source Monitor Monitor Position Blood Pressure Location History Since Last Visit- (Skip if this is Patient's initial visit) Have you changed medications since your No No last visit? Any new allergies or adverse reactions No No Had a fall/change in ADL's that may No No increase risk of falls Signs or symptoms of abuse and/or No No neglect since last visit Have you been in the hospital since your No No last visit? Has dressing in place as prescribed Yes Yes Has compression in place as prescribed Yes Yes Has offloadiing in place as prescribed N/A N/A Experienced any changes in pain level or No Yes management Left Footwear Right Footwear Pain Scale: 0-10 Numeric Is Patient Pain Free? Yes Yes WC - Nurse 1 - General Ulcer Measurement Start: 08/09/21 13:16 Freq: Status: Active Protocol: Activity Type Activity Date Activity User E-sign Co-sign Detail Recorded Client Recorded Date Recorded By Document 08/15/21 09:26 AK [id number] 08/15/21 09:35 AK Document 08/22/21 09:29 KR [id number] 08/22/21 09:33 KR Document 08/25/21 13:38 DL [id number] 08/25/21 13:40 DL Document 08/29/21 09:27 DL [id number] 08/29/21 09:31 DL 08/15/21 08/22/21 08/25/21 09:26 09:29 13:38 Wound Center Nurse 1 #1- L GERMAN POST OP -Combined with other wound No -Current Size (cm) - Length 0.1 1.3 -Current Size (cm) - Width 0.1 0.2 -Current Size (cm) - Depth 0.1 0.1 -Total Square Cm 0.01 0.26 -Date of Last Picture (Recall this 08/15/21 field) -Photo Taken Yes -Tunneling No -Undermining/Tunneling No -Circular Undermining No -Exudate Amt None Present Small None Present -Exudate Type Serosanguineous -Wound Margin Distinct, Distinct, Flat & Intact Outline Outline Attached Attached -Granulation Amt Small (1-33%) Small (1-33%) Small (1-33%) -Granulation Quality Pale,[place] -Slough/Fibrin Yes -Necrosis Amt Small (1-33%) Small (1-33%) None Present (0 %) -Necrotic Tissue Type Adherent Slough Adherent Slough -Structure Exposed N/A N/A -Texture (Mackenzie-wound Skin Appearance) No Abnormality, Assessed, Scarring Assessed Scarring -Moisture (Mackenzie-wound Skin Appearance) No Abnormality, No Abnormality, No Abnormality Assessed Assessed -Color (Mackenzie-wound Skin Appearance) No Abnormality, No Abnormality, Hemosiderin Assessed Assessed Staining -Temperature (Mackenzie-wound Skin No Abnormality No Abnormality No Abnormality Appearance) (Pt Warm) (Pt Warm) (Pt Warm) -Tenderness on Palpation (Mackenzie-wound No No Skin Appearance) -Ulcer Cleansing Rinsed/ Rinsed/ Soap and Water Irrigated with Irrigated with Saline Saline -Foul Odor after Cleansing No No No -Anesthetic Used 4% Lidocaine 5% Lidocaine Solution Gel Left Calf (cm) 43 43 41.6 Left Ankle (cm) 26.5 29.2 26.6 08/29/21 09:27 Wound Center Nurse 1 #1- L GERMAN POST OP -Combined with other wound -Current Size (cm) - Length 0.1 -Current Size (cm) - Width 0.1 -Current Size (cm) - Depth 0.1 -Total Square Cm 0.01 -Date of Last Picture (Recall this field) -Photo Taken No -Tunneling -Undermining/Tunneling -Circular Undermining -Exudate Amt None Present -Exudate Type Serosanguineous -Wound Margin Flat & Intact -Granulation Amt Large (67-100%) -Granulation Quality Pale -Slough/Fibrin -Necrosis Amt Small (1-33%) -Necrotic Tissue Type Adherent Slough -Structure Exposed N/A -Texture (Mackenzie-wound Skin Appearance) Scarring -Moisture (Mackenzie-wound Skin Appearance) No Abnormality -Color (Mackenzie-wound Skin Appearance) Assessed -Temperature (Mackenzie-wound Skin No Abnormality Appearance) (Pt Warm) -Tenderness on Palpation (Mackenzie-wound No Skin Appearance) -Ulcer Cleansing Soap and Water -Foul Odor after Cleansing No -Anesthetic Used 5% Lidocaine Gel Left Calf (cm) 39 Left Ankle (cm) 26 - Nurse 2 - General Ulcer CM Notes Start: 08/09/21 13:16 Freq: Status: Active Protocol: Activity Type Activity Date Activity User E-sign Co-sign Detail Recorded Client Recorded Date Recorded By Document 08/15/21 10:02 SHAQ [id number] 08/15/21 10:05 SHAQ Document 08/22/21 10:16 SHAQ [id number] 08/22/21 10:17 SHAQ 08/15/21 08/22/21 10:02 10:16 Wound Center Nurse 2 #1- L GERMAN POST OP -Time 10:03 10:16 -Correct Patient Yes Yes -Correct Side, Site, Position Yes Yes -Correct Procedure Yes Yes -Procedure Performed Yes Yes -Type of Procedure Debridement Incision & Drainage -Clinical Debridement Subcutaneous -Tissue Removed Subcutaneous Epidermis, Subcutaneous -Post Debridement (cm) - Length 0.5 1.5 -Post Debridement (cm) - Width 0.2 0.2 -Post Debridement (cm) - Depth 0.1 0.1 -Total Square (Post) (cm) 0.10 0.30 -Area of Debridement (cm) - Length 0.5 1.5 -Area of Debridement (cm) - Width 0.2 0.2 -Total Square (Area) (cm) 0.10 0.30 -Tunneling No No -Undermining/Tunneling No No -Circular Undermining No No -Wound/Ulcer Outcome Not Healed Not Healed -Ulcer Cleansing Rinsed/ Rinsed/ Irrigated with Irrigated with Saline Saline -Foul Odor after Cleansing No No -Bioengineered Tissue No No -Bleeding Controlled with Pressure Pressure -Treatment Response Procedure Procedure Tolerated Well Tolerated Well -Offloading No No -Debridement - Subq, 1st 20sq cm Yes Yes Pain Scale: 0-10 Numeric Is Patient Pain Free? Yes Yes WC - Nurse 3 - General Ulcer D/C NN Start: 08/09/21 13:16 Freq: Status: Active Protocol: Activity Type Activity Date Activity User E-sign Co-sign Detail Recorded Client Recorded Date Recorded By Document 08/09/21 13:16 TN [id number] 08/09/21 13:18 AK Document 08/15/21 10:23 AK [id number] 08/15/21 10:24 AK Document 08/22/21 10:27 DL [id number] 08/22/21 10:29 DL Document 08/25/21 13:38 DL [id number] 08/25/21 13:40 DL Document 08/29/21 10:02 DL [id number] 08/29/21 10:04 DL 08/09/21 08/15/21 08/22/21 13:16 10:23 10:27 Vital Signs Temperature (97.8 F-99.1 F) 97.2 F L Temperature Source Temporal Pulse Rate (60-100) 59 L Pulse Location Monitor Respiratory Rate (12-18) Respiratory rate source Blood Pressure (90/60-120/80) 143/62 H Blood Pressure Mean (mm Hg) 89 Source Monitor Pain Scale: 0-10 Numeric Is Patient Pain Free? Yes Yes Yes Wound Care Nurse 3 #1- L GERMAN POST OP -Ulcer Cleansing Rinsed/ Rinsed/ Rinsed/ Irrigated with Irrigated with Irrigated with Saline Saline Saline -Foul Odor after Cleansing No No No -Negative Pressure Wound Therapy N/A N/A -Primary Dressing Applied Promogran C Hydrogel ($), NonAdherent Alicia Matter NonAdherent Contact Layer Contact Layer -Other Dressing hydrogel -Primary Dressing Covered/Secured with Dry Gauze Dry Gauze & Dry Gauze & Roll Gauze, Roll Gauze Secured with Tape -Promogran Alicia Matter 1 Left -Multi-Layered Wrap Application Multi-Layer Multi-Layer Comp - Left ($) Comp - Left ($) -Tubular Bandage -Size of Tubigrip Used -Size D ($) Treatment Response Procedure Tolerated Well WC - Visit Discharge Discharge Condition Stable Stable Stable Ambulatory Status Ambulatory Ambulatory Ambulatory Transportation Private Auto Private Auto Private Auto Medication Reconcilliation completed & Yes Yes provided to patient/care provider Clinical Summary of Care Provided Yes Yes Notes: own compression sock applied Facility Type Home Health Orders Sent Yes 08/25/21 08/29/21 13:38 10:02 Vital Signs Temperature (97.8 F-99.1 F) 96.5 F L Temperature Source Temporal Pulse Rate (60-100) 89 Pulse Location Monitor Respiratory Rate (12-18) 20 H Respiratory rate source Observation Blood Pressure (90/60-120/80) 148/67 H Blood Pressure Mean (mm Hg) 94 Source Monitor Pain Scale: 0-10 Numeric Is Patient Pain Free? Yes Yes Wound Care Nurse 3 #1- L GERMAN POST OP -Ulcer Cleansing Soap and Water Rinsed/ Irrigated with Saline -Foul Odor after Cleansing No No -Negative Pressure Wound Therapy -Primary Dressing Applied NonAdherent Contact Layer -Other Dressing hydrogel hydrogel -Primary Dressing Covered/Secured with Dry Gauze Dry Gauze & Roll Gauze, Secured with Tape -Promogran Alicia Matter Left -Multi-Layered Wrap Application Multi-Layer Comp - Left ($) -Tubular Bandage Double Layer -Size of Tubigrip Used Size D -Size D ($) 1 Treatment Response Procedure Procedure Tolerated Well Tolerated Well WC - Visit Discharge Discharge Condition Stable Stable Ambulatory Status Ambulatory Ambulatory Transportation Private Auto Private Auto Medication Reconcilliation completed & provided to patient/care provider Clinical Summary of Care Provided Notes: Facility Type Orders Sent Assessment/Plan Assessment/Plan (1) Ulcer of left lower extremity with fat layer exposed: CODE(S): L97.922 - Non-pressure chronic ulcer of 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 Collagen hydrogel covered with adaptic and topped with gauze. She will use double layer tubigrip for compression until the correct size compression stockings are delivered. Wound culture obtained 05/16/21 which was positive for Serratia marcenscens and Anaerobic cocci. She completed Flagyl and the Levaquin. Left leg ultrasound on 05/16/21 was negative for DVT. Wound culture obtained on 01/03/21 which was positive for MRSA. She has completed her Linezolid. Operative cultures positive for Enterococcus avium, Enterococcus gallinarum, Turicella otitidis and Bacteroides thetaiotaomicron. Fungal cultures positive for Sara tropicalis. She completed Linezolid and Flagyl and Diflucan. Because of her history of Lupus she may have delayed wound healing. Follow up two weeks. Call or come in sooner if having any issues or difficulty.
== END 2021-09-01 23:59 | disposition home or self-care (01) ==
LOC: WC 09:30
PROVIDERS: PCP Family Medicine Geriatric Medicine; Visit Provider Nurse Practitioner Family
DX: L97.822 Non-pressure chronic ulcer of other part of left lower leg with fat layer exposed (principal); M32.9 Systemic lupus erythematosus, unspecified; R60.0 Localized edema; Z86.14 Personal history of Methicillin resistant Staphylococcus aureus infection
CPT/HCPCS: 11042; 29581

== ENCOUNTER 2021-09-12 09:22 | Outpatient (RCR) | payer MEDICARE, OTHER, SELFPAY ==
[2021-09-02 00:24] VITALS: BP 159/94; PULSE 80; RESP 18; TEMP 35.7; BMI 36.0
[2021-09-12 09:32] VITALS: BP 180/80; PULSE 74; TEMP 36.3; BMI 36.0
--- NOTE | 2021-09-12 10:24 | PN.PCM_ITS ---
History of Present Illness Date of Service: 09/12/21 Chief Complaint: Nonhealing ulcer left anterior leg. History of Wound: Surgery 11/19/20 - Surgical preparation left anterior leg with incision and drainage and excisional debridement pig bite wound infection abscess with skin necrosis (96 cm2). Wound care - She is healed this week. Continue to wear compression stocking to help control edema. Wound culture obtained 05/16/21 which was positive for Serratia marcenscens and Anaerobic cocci. She has completed the Metronidazole. She continues to take the Levofloxicin. Left leg ultrasound on 05/16/21 was negative for DVT. She was placed on Levaquin on 12/29/20 because home health called stating that her mackenzie wound was red and warm. Wound culture 01/03/21. It showed MRSA. She was started on Linezolid. Operative cultures positive for Enterococcus avium, Enterococcus gallinarum, Turicella otitidis and Bacteroides thetaiotaomicron. Fungal cultures positive for Sara tropicalis. She completed Linezolid and Flagyl. She was started on Diflucan daily. Labs from 01/05/22 showed Total Bilirubin was 0.20, AST was 12, ALT was 23, Alkaline Phosphatase was 72, Albumin was 3.6. Today she denies any fevers, chills, nausea or vomiting. She states her appetite is good and she has increased her protein intake. Progress of Wound: Left anterior leg ulcer is healed today. Objective Data Objective Data Vital Signs: Vital Signs Temp Pulse Resp BP 97.4 F L 74 18 180/80 H 09/12/21 09:32 09/12/21 09:32 09/02/21 00:24 09/12/21 09:32 Weight: 230 lb Body Mass Index (BMI) 36.0 Charges/Coding Visit Charges Office Visits / Consults: 57448 OV L3 Est Physical Exam Const alert and oriented x3 General Appearance: cooperative HEENT normocephalic Head and Scalp: atraumatic Resp normal respiratory effort Cardio regular rate and regular rhythm Cardio Narrative: Left pedal pulse +2 Extremity normal capillary refill Extremity Narrative: +1 lower extremity edema. Skin Wound Narrative: Left anterior lower leg ulcer is healed today. Neuro Sensorium / Orientation: awake and alert Psych Appearance: well kempt Debridement Note Debridement Note No debridement was completed: No debridement was completed today Post-Debridement Measurements and Additional Note: Post-Debridement Measurements/Treatment GIORGI - Nurse 1 - General Ulcer Assessment Start: 09/12/21 09:32 Freq: Status: Active Protocol: RUBIA Activity Type Activity Date Activity User E-sign Co-sign Detail Recorded Client Recorded Date Recorded By Document 09/12/21 09:32 TRI [id number] 09/12/21 09:34 TRI 09/12/21 09:32 - Today's Visit Information Type of service Follow-up Visit (Physician/[employer] ) Arrival Mode Ambulatory Patient Identification Verified (Name & Yes ) Height and Weight Body Mass Index (BMI) 36.0 BMI Classification Obese Vital Signs Temperature (97.8 F-99.1 F) 97.4 F L Temperature Source Temporal Pulse Rate (60-100) 74 Pulse Location Monitor Blood Pressure (90/60-120/80) 180/80 H Blood Pressure Mean (mm Hg) 113 Source Monitor Position Semi-Fowlers Blood Pressure Location Right Arm History Since Last Visit- (Skip if this is Patient's initial visit) Have you changed medications since your No last visit? Any new allergies or adverse reactions No Had a fall/change in ADL's that may No increase risk of falls Signs or symptoms of abuse and/or No neglect since last visit Have you been in the hospital since your No last visit? Has dressing in place as prescribed Yes Has compression in place as prescribed Yes Has offloadiing in place as prescribed N/A Experienced any changes in pain level or No management Left Footwear Regular Shoe Right Footwear Regular Shoe Pain Scale: 0-10 Numeric Is Patient Pain Free? Yes GIORGI - Nurse 1 - General Ulcer Measurement Start: 09/12/21 09:32 Freq: Status: Active Protocol: Activity Type Activity Date Activity User E-sign Co-sign Detail Recorded Client Recorded Date Recorded By Document 09/12/21 09:32 TRI [id number] 09/12/21 09:34 TRI 09/12/21 09:32 Wound Center Nurse 1 #1- L GERMAN POST OP -Current Size (cm) - Length 0.1 -Current Size (cm) - Width 0.1 -Current Size (cm) - Depth 0.1 -Total Square Cm 0.01 -Exudate Amt None Present -Wound Margin Distinct, Outline Attached -Granulation Amt None Present (0 %) -Necrosis Amt None Present (0 %) -Texture (Mackenzie-wound Skin Appearance) Assessed, Scarring -Moisture (Mackenzie-wound Skin Appearance) No Abnormality, Assessed -Color (Mackenzie-wound Skin Appearance) No Abnormality, Assessed -Temperature (Mackenzie-wound Skin No Abnormality Appearance) (Pt Warm) -Tenderness on Palpation (Mackenzie-wound No Skin Appearance) -Ulcer Cleansing Rinsed/ Irrigated with Saline -Foul Odor after Cleansing No -Anesthetic Used 5% Lidocaine Gel Left Calf (cm) 41 Left Ankle (cm) 26 - Nurse 2 - General Ulcer CM Notes Start: 09/12/21 09:32 Freq: Status: Active Protocol: Activity Type Activity Date Activity User E-sign Co-sign Detail Recorded Client Recorded Date Recorded By Document 09/12/21 09:56 [id number] 09/12/21 09:58 09/12/21 09:56 Wound Center Nurse 2 #1- L GERMAN POST OP -Correct Patient No -Correct Side, Site, Position No -Correct Procedure No -Procedure Performed No -Post Debridement (cm) - Length 0 -Post Debridement (cm) - Width 0 -Post Debridement (cm) - Depth 0 -Total Square (Post) (cm) 0 -Area of Debridement (cm) - Length 0 -Area of Debridement (cm) - Width 0 -Total Square (Area) (cm) 0 -Wound/Ulcer Outcome Healed- Epithelialized Pain Scale: 0-10 Numeric Is Patient Pain Free? Yes - Nurse 3 - General Ulcer D/C NN Start: 09/12/21 09:32 Freq: Status: Active Protocol: Activity Type Activity Date Activity User E-sign Co-sign Detail Recorded Client Recorded Date Recorded By Document 09/12/21 09:58 [id number] 09/12/21 09:59 09/12/21 09:58 Wound Care Nurse 3 Left -Stockings Yes Pain Scale: 0-10 Numeric Is Patient Pain Free? Yes - Visit Discharge Discharge Condition Stable Ambulatory Status Ambulatory Transportation Private Auto Medication Reconcilliation completed & Yes provided to patient/care provider Clinical Summary of Care Provided Yes Assessment/Plan Assessment/Plan (1) Ulcer of left lower extremity with fat layer exposed: CODE(S): L97.922 - Non-pressure chronic ulcer of 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 Ulcer is healed today. Massage the scarring with lotion 1-2 times daily to help soften the scarring. Continue to wear compression stockings to help with edema control. Wound culture obtained 05/16/21 which was positive for Serratia marcenscens and Anaerobic cocci. She completed Flagyl and the Levaquin. Left leg ultrasound on 05/16/21 was negative for DVT. Wound culture obtained on 01/03/21 which was positive for MRSA. She has completed her Linezolid. Operative cultures positive for Enterococcus avium, Enterococcus gallinarum, Turicella otitidis and Bacteroides thetaiotaomicron. Fungal cultures positive for Sara tropicalis. She completed Linezolid and Flagyl and Diflucan. Follow up as needed.
== END 2021-09-12 15:05 | disposition home or self-care (01) ==
LOC: WC 09:22
PROVIDERS: PCP Family Medicine Geriatric Medicine; Visit Provider Nurse Practitioner Family
DX: Z09 Encounter for follow-up examination after completed treatment for conditions other than malignant neoplasm (principal); M32.9 Systemic lupus erythematosus, unspecified; R60.0 Localized edema
CPT/HCPCS: 99213; G0463

== ENCOUNTER → 2021-11-18 | Outpatient (CLI) | payer MEDICARE, OTHER, SELFPAY ==
--- NOTE | 2021-11-18 12:36 | RAD_ITS ---
STUDY: X-RAY - LEFT SHOULDER REASON FOR EXAM: Female, 71 years old. PAIN TECHNIQUE: 4 view(s) of the shoulder. COMPARISON: None. FINDINGS: Normal glenohumeral articulation. There is hypertrophic osteoarthrosis of the acromioclavicular joint with inferior osseous spur formation. Normal acromion. Normal humeral head and visualized proximal humerus. The soft tissue structures are unremarkable. Normal visualized pulmonary apex. RAD/Shoulder min 2 Views IMPRESSION: Degenerative changes of the acromioclavicular joint. Electronically Signed: Billy Mathew MD at 14:47 EDT ,
--- NOTE | 2021-11-18 12:37 | RAD_ITS ---
EXAM: XR CERVICAL SPINE, 2 OR 3 VIEWS CLINICAL INDICATION: PAIN TECHNIQUE: Frontal and lateral views of the cervical spine. This report was created using [employer] report ad[employer]ise technology. COMPARISON: None. FINDINGS: VERTEBRAE: There is mild straightening of the normal cervical lordosis. This can suggest neck strain. The odontoid process is obscured by the overlying hard palate on the open mouth view. Therefore, it is not fully evaluated by plain film. C5-6: There is endplate spondylosis of the vertebral body. Loss of intervertebral disc height. No significant facet arthropathy. DISC SPACES: Unremarkable. Disc spaces are maintained. SOFT TISSUES: See above. LUNG APICES: Clear. OTHER FINDINGS: . RAD/Cerv Spine 2 or 3 Views IMPRESSION: 1. There is mild straightening of the normal cervical lordosis. This can suggest neck strain. 2. Degenerative findings at C5-6. 3. The odontoid process is obscured by the overlying hard palate on the open mouth view. Therefore, it is not fully evaluated by plain film. Electronically Signed: Angus Rosales MD at 14:20 EDT ,
[2021-11-18 13:59] LABS: Troponin-I HS 6 pg/mL (3.0-54.0)
[2021-11-18 14:09] LABS: BNP,B-Type NATRIURETIC PEPTIDE 50.5 pg/mL (0-100)
[2021-11-20 09:43] LABS: Myoglobin, Serum 61 ng/mL (25-58)
== END | disposition home or self-care (01) ==
PROVIDERS: PCP Family Medicine Geriatric Medicine; Referring Provider Family Medicine Geriatric Medicine; Visit Provider Family Medicine Geriatric Medicine
DX: M47.812 Spondylosis without myelopathy or radiculopathy, cervical region (principal); I50.1 Left ventricular failure, unspecified; M19.012 Primary osteoarthritis, left shoulder; R07.9 Chest pain, unspecified
CPT/HCPCS: 36415; 72040; 73030; 83874; 83880; 84484

== ENCOUNTER → 2021-12-21 | Outpatient (CLI) | payer MEDICARE, OTHER, SELFPAY ==
[2021-12-21 17:28] LABS: Absolute Lymphocyte Count 2.02 X10^3/uL (0.83-4.51); Absolute Neutrophil Count 6.8 X10^3/uL (2.0-7.7); Basophil# 0.01 X10^3/uL; Basophil% 0.1 % (0-1); Eosinophil# 0.01 X10^3/uL; Eosinophils% 0.1 % (0-5); Hemoglobin 14.3 g/dL (12.0-15.0); Lymphocyte # 2.02 X10^3/ul (0.83-4.51); Lymphocyte % 21.4 % (19-41); Mean Corp Hgb Conc 33.3 g/dL (32-36); Mean Corpuscular Hgb 31.6 pg (27.0-32.0); Mean Corpuscular Volume 94.9 fL (81-99); Mean Platelet Vol. 10.4 fl (6.2-12.0); Monocyte# 0.57 X10^3/uL; NRBC Flagged by Analyzer 0 % (0-5); Neutrophil # 6.82 X10^3/uL (2.7-7.7); Neutrophil % 72.1 % (47-70); Platelet Count 412 K/mm3 (150-450); RBC Distribution Width CV 12.7 % (11.6-14.6); RBC Distribution Width SD 43.6 fl (35.1-43.9); Red Blood Count 4.53 M/mm3 (4.2-5.4); White Blood Count 9.5 K/mm3 (4.4-11.0)
[2021-12-21 17:33] LABS: Prothrombin Time (Protime)PT. 13.1 SECONDS (11.7-14.9)
[2021-12-21 18:03] LABS: Anion Gap 7 (5-15); BUN 23 mg/dL (7-18); BUN/Creat Ratio 21.9 RATIO (10-20); Chloride 107 mmol/L (98-107); Creatinine, Serum 1.05 mg/dL (0.55-1.02); EST Glomerular Filtration Rate 55 mL/min (>60); Est Glom Filt Rate - Afr Amer 66 mL/min (>60); Glucose 127 mg/dL (74-106); Potassium 3.6 mmol/L (3.5-5.1); Sodium Level 142 mmol/L (136-145)
== END | disposition home or self-care (01) ==
LOC: POLAB3 16:14
PROVIDERS: PCP Family Medicine Geriatric Medicine; Visit Provider Family Medicine Geriatric Medicine
DX: Z01.812 Encounter for preprocedural laboratory examination (principal)
CPT/HCPCS: 36415; 80048; 85025; 85610

== ENCOUNTER → 2021-12-26 | Outpatient (CLI) | payer MEDICARE, OTHER, SELFPAY ==
--- NOTE | 2021-12-26 14:23 | US_ITS ---
INDICATION: NODULE EXAMINATION: Ultrasound US Thyroid (eg thyroid, parathyroid, parotid) TECHNIQUE: Dia scale and color doppler imaging was performed of the thyroid gland. COMPARISON: CT chest May 27, 2020. FINDINGS: RIGHT THYROID LOBE: 4.5 x 2.0 x 1.9 cm. Heterogeneous echotexture. No hyperemia. Nodule: Lower pole solid hypoechoic smoothly marginated nodule wider than tall without calcifications measuring 2.8 x 2.1 x 2.1 cm, TI-RAD4. LEFT THYROID LOBE: 5.5 x 2.1 x 2.1 cm. Heterogeneous echotexture. No hyperemia. Nodule: Lower pole solid isoechoic smoothly marginated 1.3 x 1.2 x 1.4 cm taller than wide nodule without calcification, TI-RAD4. Nodule 2: Medial anterior mid thyroid cystic solid hypoechoic smoothly marginated wider than tall nodule with coarse calcification measuring 0.6 x 0.4 x 0.5 cm, TI-RAD4, ISTHMUS: 0.2 cm. No thyroid nodules are present. US/Thyroid IMPRESSION: Large heterogeneous thyroid without hyperemia. Bilateral TI-RAD 4, moderately suspicious nodules. Consider fine-needle aspiration for largest 2.8 cm right thyroid lesion if not previously assessed per ACR criteria. One-year follow-up ultrasound recommended for largest left thyroid 1.4 cm nodule if not sampled at time of right thyroid lesion. Electronically Signed: Gavin Maza MD at 5:29 EDT ,
== END | disposition home or self-care (01) ==
LOC: US 14:20
PROVIDERS: PCP Family Medicine Geriatric Medicine; Referring Provider Family Medicine Geriatric Medicine; Visit Provider Family Medicine Geriatric Medicine
DX: E04.1 Nontoxic single thyroid nodule (principal)
CPT/HCPCS: 76536

== ENCOUNTER → 2022-01-06 | Outpatient (CLI) | payer MEDICARE, OTHER, SELFPAY ==
--- NOTE | 2022-01-06 07:39 | ASPS_PTH ---
PATIENT: ELY HERNÁNDEZ LOC: POLY #:[id number] AGE/SX: 71/F ROOM: RE01/06/[address]: Dr. Dragan Webb MD : 1950 BED: DIS: 01/06/2022 SPEC #: [id number] RECD: 01/06/22 13:12 STATUS: MARYBEL REZac #: [id number] JOSE: 01/06/22 07:[address]: Dragan Webb DEPT: CYTOLOGY RECD BY: Jocelyn Mcclain ENTERED: 01/09/22 08:33 SP TYPE: ASPIRATION OTHR DR: Dr. Parish Plascencia MD Tissues: A - Thyroid gland, NOS B - Thyroid gland, NOS Procedures: Special Stain Group II Cytology Other HEADER OPERATION: Fine needle aspiration bilateral lower pole nodules PRE-OP DIAGNOSIS: Multiple thyroid nodules TISSUE SUBMITTED: A ? Right lower pole thyroid nodule, B ? Left lower pole thyroid nodule DIAGNOSIS CYTOLOGY A. Right lower pole thyroid nodule, fine needle aspiration (smears): Consistent with benign follicular/colloid nodule ([place] Category II). Adequate for evaluation. See comment. B. Left lower pole thyroid nodule, fine needle aspiration (smears): Consistent with benign follicular/colloid nodule ([place] Category II). Adequate for evaluation. See comment. KARUNA:jacoby 01/10/2022 COMMENT A & B. Correlation with clinical, radiologic findings and appropriate follow up are necessary. Please make reference to previous specimen ([id number]) right thyroid, lobectomy with diagnosis of ?multinodular goiter with adenomatoid nodule.? CYTOLOGY STUDY Slides are reviewed. CYTOLOGY GROSS A - Received are eight smears labeled with the patient's name and designated per the requisition as right lower pole thyroid nodule. Submitted for staining. B - Received are six smears labeled with the patient's name and designated per the requisition as left lower pole thyroid nodule. Submitted for staining. / jacoby 01/09/2022 TC:5 [facility]: [id number] x2
== END | disposition home or self-care (01) ==
LOC: LABSPEC 13:19
PROVIDERS: PCP Family Medicine Geriatric Medicine; Visit Provider Surgery
DX: E04.2 Nontoxic multinodular goiter (principal)
CPT/HCPCS: 88161; 88313

== ENCOUNTER → 2022-01-17 | Outpatient (CLI) | payer MEDICARE, OTHER, SELFPAY ==
--- NOTE | 2022-01-17 08:03 | VDUE_ITS ---
Reason For Study: Swelling Left Proximal Left jugular vein is spontaneous, widely patent, phasic, with no intraluminal echogenicity noted. Left subclavian vein is spontaneous, widely patent, phasic, with no intraluminal echogenicity noted. Left Arm Left axillary vein is spontaneous, patent, phasic, competent, compressible and demonstrates augmentation. Left brachial vein is compressible. Left cephalic vein is compressible. Left basilic vein is compressible. Left Lower Arm Left radial vein is compressible. Left ulnar vein is compressible. VL/Venous Duplex US, Unilateral Interpretation Summary No evidence for acute deep venous thrombosis[left] upper extremity with patent and compressible cephalic and basilic veins. Ordering Physician: Gurinder Saavedra Referring Physician: Parish Plascencia Chi Performed By: Evin Mi RVT ???
== END | disposition home or self-care (01) ==
LOC: CVS 08:02
PROVIDERS: PCP Family Medicine Geriatric Medicine; Referring Provider Nurse Practitioner Family; Visit Provider Nurse Practitioner Family
DX: M79.602 Pain in left arm (principal); R60.0 Localized edema
CPT/HCPCS: 93971

== ENCOUNTER → 2022-01-19 | Outpatient (CLI) | payer MEDICARE, OTHER, SELFPAY ==
[2022-01-19 12:31] LABS: Absolute Lymphocyte Count 2.25 X10^3/uL (0.83-4.51); Absolute Neutrophil Count 3.9 X10^3/uL (2.0-7.7); Basophil# 0.01 X10^3/uL; Basophil% 0.1 % (0-1); Eosinophil# 0.06 X10^3/uL; Eosinophils% 0.9 % (0-5); Hematocrit 40.9 % (37-47); Hemoglobin 13.6 g/dL (12.0-15.0); Lymphocyte # 2.25 X10^3/ul (0.83-4.51); Lymphocyte % 32.9 % (19-41); Mean Corp Hgb Conc 33.3 g/dL (32-36); Mean Corpuscular Hgb 31.6 pg (27.0-32.0); Mean Corpuscular Volume 95.1 fL (81-99); Mean Platelet Vol. 10.1 fl (6.2-12.0); Monocyte# 0.62 X10^3/uL; Monocyte% 9.1 % (0-10); NRBC Flagged by Analyzer 0 % (0-5); Neutrophil # 3.86 X10^3/uL (2.7-7.7); Neutrophil % 56.6 % (47-70); Platelet Count 356 K/mm3 (150-450); RBC Distribution Width CV 12.8 % (11.6-14.6); RBC Distribution Width SD 44.6 fl (35.1-43.9); White Blood Count 6.8 K/mm3 (4.4-11.0)
[2022-01-19 13:41] LABS: ALB/GLOB Ratio 1.2 RATIO (0.9-2.4); AST(SGOT) 14 U/L (15-37); Alanine Aminotransfer ALT/SGPT 30 U/L (13-56); Albumin, Serum 3.9 g/dL (3.2-5.0); Alkaline Phosphatase 50 U/L (45-117); Anion Gap 8 (5-15); BUN 17 mg/dL (7-18); BUN/Creat Ratio 24.5 RATIO (10-20); Calcium,Total 9.1 mg/dL (8.5-10.1); Chloride 106 mmol/L (98-107); EST Glomerular Filtration Rate 88 mL/min (>60); Est Glom Filt Rate - Afr Amer 107 mL/min (>60); Globulin 3.2 g/dL (2.2-4.2); Glucose 97 mg/dL (74-106); Potassium 3.3 mmol/L (3.5-5.1); Protein, Total 7.1 g/dL (6.4-8.2); Sodium Level 143 mmol/L (136-145); Thyroid Stim Hormone (TSH) 0.94 uIU/mL (0.358-3.74)
== END | disposition home or self-care (01) ==
LOC: POLAB3 09:55
PROVIDERS: PCP Family Medicine Geriatric Medicine; Visit Provider Family Medicine Geriatric Medicine
DX: I10 Essential (primary) hypertension (principal); E55.9 Vitamin D deficiency, unspecified
CPT/HCPCS: 36415; 80053; 82306; 84443; 85025

== ENCOUNTER → 2022-01-27 | Outpatient (CLI) | payer MEDICARE, OTHER, SELFPAY ==
[2022-01-27 11:26] LABS: Anion Gap 5 (5-15); BUN 23 mg/dL (7-18); BUN/Creat Ratio 24.3 RATIO (10-20); Calcium,Total 9.3 mg/dL (8.5-10.1); Chloride 104 mmol/L (98-107); Creatinine, Serum 0.95 mg/dL (0.55-1.02); EST Glomerular Filtration Rate 62 mL/min (>60); Est Glom Filt Rate - Afr Amer 75 mL/min (>60); Glucose 112 mg/dL (74-106); Sodium Level 141 mmol/L (136-145)
== END | disposition home or self-care (01) ==
PROVIDERS: PCP Family Medicine Geriatric Medicine; Referring Provider Family Medicine Geriatric Medicine; Visit Provider Family Medicine Geriatric Medicine
DX: E87.6 Hypokalemia (principal)
CPT/HCPCS: 36415; 80048

== ENCOUNTER → 2022-02-13 | Outpatient (CLI) | payer MEDICARE, OTHER, SELFPAY ==
--- NOTE | 2022-02-13 10:02 | VDLE_ITS ---
Reason For Study: Edema Procedure LEFT This is a venous duplex using B-mode, color GSV is normal. flow and spectral Doppler. CFV is compressible, spontaneous, phasic, Exam performed in department. competent, and demonstrates normal A preliminary report was called and/or faxed augmentation. to Dr. Zavala. FV is compressible, spontaneous, phasic, competent and demonstrates normal augmentation. POP V is compressible, spontaneous, phasic, competent and demonstrates normal augmentation. T/P Trunk is compressible. PTV is compressible. LT PerV is compressible. VL/Venous Duplex US, Unilateral Interpretation Summary Deep veins of the left lower extremity are patent and compressible segmentally. There is no evidence of left lower extremity deep vein thrombosis. The left great saphenous vein angel ears patent and compressible segmentally. Ordering Physician: David Zavala Referring Physician: Parish Plascencia Chi Performed By: Bhumi Saavedra, JEY, RVT
== END | disposition home or self-care (01) ==
LOC: CVS 10:01
PROVIDERS: PCP Family Medicine Geriatric Medicine; Visit Provider Orthopaedic Surgery
DX: R60.0 Localized edema (principal)
CPT/HCPCS: 93971

== ENCOUNTER → 2022-08-02 | Outpatient (CLI) | payer MEDICARE, OTHER, SELFPAY ==
--- NOTE | 2022-08-02 12:10 | RAD_ITS ---
INDICATION: LEFT KNEE PAIN EXAMINATION/TECHNIQUE: X-RAY - LEFT XR Knee Complete 4 Views or More 4 VIEWS COMPARISON: Left tibia-fibula series 11/17/2020 FINDINGS: SOFT TISSUES: No soft tissue swelling or gas. No radiopaque foreign body. BONES/JOINTS: No acute fracture. Severe tricompartmental degenerative changes. No sclerotic or destructive changes observed. RAD/Knee 4 or More Views IMPRESSION: Severe tricompartmental degenerative changes. Electronically Signed: Ulises Taylor MD at 21:10 EDT ,
[2022-08-02 13:25] LABS: Basophil# 0.04 X10^3/uL; Basophil% 0.4 % (0-1); Eosinophil# 0.08 X10^3/uL; Eosinophils% 0.7 % (0-5); Hematocrit 46.3 % (37-47); Hemoglobin 15.3 g/dL (12.0-15.0); Lymphocyte % 27.4 % (19-41); Mean Corpuscular Hgb 31.9 pg (27.0-32.0); Mean Corpuscular Volume 96.5 fL (81-99); Monocyte# 0.81 X10^3/uL; Monocyte% 7.4 % (0-10); NRBC Flagged by Analyzer 0 % (0-5); Neutrophil # 6.97 X10^3/uL (2.7-7.7); Neutrophil % 63.8 % (47-70); Platelet Count 420 K/mm3 (150-450); RBC Distribution Width CV 13.1 % (11.6-14.6); RBC Distribution Width SD 46.6 fl (35.1-43.9); White Blood Count 10.9 K/mm3 (4.4-11.0)
[2022-08-02 13:41] LABS: Vitamin D,25 Hydroxy 35.4 ng/mL
[2022-08-02 13:52] LABS: ALB/GLOB Ratio 1.2 RATIO (0.9-2.4); AST(SGOT) 17 U/L (15-37); Alanine Aminotransfer ALT/SGPT 28 U/L (13-56); Albumin, Serum 4.2 g/dL (3.2-5.0); Alkaline Phosphatase 72 U/L (45-117); Anion Gap 7 (5-15); BUN 20 mg/dL (7-18); BUN/Creat Ratio 22.1 RATIO (10-20); Chloride 103 mmol/L (98-107); EST Glomerular Filtration Rate 65 mL/min (>60); Est Glom Filt Rate - Afr Amer 79 mL/min (>60); Globulin 3.4 g/dL (2.2-4.2); Glucose 117 mg/dL (74-106); Potassium 3.4 mmol/L (3.5-5.1); Protein, Total 7.6 g/dL (6.4-8.2); Sodium Level 141 mmol/L (136-145); Thyroid Stim Hormone (TSH) 1.69 uIU/mL (0.358-3.74)
== END | disposition home or self-care (01) ==
PROVIDERS: PCP Family Medicine Geriatric Medicine; Referring Provider Family Medicine Geriatric Medicine; Visit Provider Family Medicine Geriatric Medicine
DX: I10 Essential (primary) hypertension (principal); E55.9 Vitamin D deficiency, unspecified; M25.562 Pain in left knee
CPT/HCPCS: 36415; 73564; 80053; 82306; 84443; 85025

== ENCOUNTER → 2022-09-14 | Outpatient (CLI) | payer MEDICARE, OTHER, SELFPAY ==
[2022-09-14 15:33] LABS: Red Blood Cells-Urine 0 SEEN /hpf (0-5)
[2022-09-14 16:52] LABS: Color, Urine Yellow (Yellow); Glucose, Dipstick Normal (Normal); Ketone-Dipstick 5 mg/dl (Negative); Leukocyte Esterase-Dipstick 25 /ul (Negative); Nitrite-Dipstick Negative (Negative); Occult Blood-Urine 10 /ul (Negative); Protein-Dipstick 15 mg/dl (Negative); Specific Gravity, Urine 1.025 (1.002-1.030); Urine Bilirubin Dipstick Negative (Negative); Urine Clarity Clear (Clear); Urine Urobilinogen Normal (Normal)
[2022-09-14 16:59] LABS: Bacteria RARE /hpf (None Seen); Mucous, Urine 1+ /hpf (<or=2+); Squamous Epithelial Cells - UA 0-5 SEEN /hpf (5-10); White Blood Cells 0-5 SEEN /hpf (0-5)
[2022-09-14 17:23] LABS: ALB/GLOB Ratio 1.2 RATIO (0.9-2.4); AST(SGOT) 17 U/L (15-37); Alanine Aminotransfer ALT/SGPT 33 U/L (13-56); Alkaline Phosphatase 71 U/L (45-117); Anion Gap 8 (5-15); BUN 22 mg/dL (7-18); BUN/Creat Ratio 27.8 RATIO (10-20); Calcium,Total 9.9 mg/dL (8.5-10.1); Chloride 105 mmol/L (98-107); Cholesterol 266 mg/dL (200); Creatinine, Serum 0.79 mg/dL (0.55-1.02); EST Glomerular Filtration Rate 76 mL/min (>60); Est Glom Filt Rate - Afr Amer 92 mL/min (>60); Globulin 3.3 g/dL (2.2-4.2); Glucose 141 mg/dL (74-106); High Density Lipoprotein 53 mg/dL; Protein, Total 7.3 g/dL (6.4-8.2); Sodium Level 142 mmol/L (136-145); Triglycerides 217 mg/dL; Very Low Density Lipoprotein 43 mg/dL (5-40)
== END | disposition home or self-care (01) ==
LOC: BIMLAB 15:31
PROVIDERS: PCP Internal Medicine; Referring Provider Internal Medicine; Visit Provider Internal Medicine
DX: N39.41 Urge incontinence (principal); R35.0 Frequency of micturition; E78.5 Hyperlipidemia, unspecified; I10 Essential (primary) hypertension
CPT/HCPCS: 36415; 80053; 80061; 81001; 87086; 87088

== ENCOUNTER → 2022-10-17 | Outpatient (CLI) | payer MEDICARE, OTHER, SELFPAY ==
--- NOTE | 2022-10-17 15:51 | CT_ITS ---
EXAM: CT ABDOMEN AND PELVIS WITH INTRAVENOUS CONTRAST CLINICAL INDICATION: CHRONIC RIGHT FLANK PAIN TECHNIQUE: Helically acquired images were obtained of the abdomen and pelvis with intravenous contrast. This CT exam was performed using one or more of the following dose reduction techniques: automated exposure control, adjustment of the mA and/or kV according to patient size, and/or use of iterative reconstruction technique. CONTRAST: IV 100mL Isovue-370 RADIATION DOSE: CTDIvol = 18.09 mGy, DLP = 1230.40 mGy-cm COMPARISON: . April 10, 2006. FINDINGS: LOWER THORAX: Unremarkable. Lung bases are clear. No cardiomegaly. No significant pericardial effusion. ABDOMEN: LIVER: Unremarkable. Homogeneous. No focal mass. GALLBLADDER AND BILE DUCTS: Unremarkable. No calcified gallstones. No gallbladder distention or wall edema. No intra- or extrahepatic biliary ductal dilation. PANCREAS: Unremarkable. No focal cystic or solid mass. SPLEEN: Unremarkable. Normal size without focal cystic or solid mass. ADRENALS: Unremarkable. No nodules. KIDNEYS AND URETERS: Unremarkable. Normal renal size and position. No hydronephrosis. STOMACH AND BOWEL: Moderate stool throughout most of the proximal half of the colon, moderate gas and mildly redundant sigmoid, mild gas and stool in the rectum. Mild distal sigmoid diverticulosis, no evidence of acute diverticulitis. No stomach or bowel distention. PELVIS: APPENDIX: Normal appendix is seen on the coronal images. BLADDER: Unremarkable. REPRODUCTIVE: Unremarkable as visualized. No mass. ABDOMEN and PELVIS: INTRAPERITONEAL SPACE: Unremarkable. No ascites or other fluid collection. No free air. BONES/JOINTS: There is mild dextroscoliosis and mild multilevel degenerative spine changes. Grade 1 anterolisthesis of L4 with respect to L5 and at least moderate spinal stenosis at the level of the superior margin of L5, AP diameter of the canal is roughly 5 mm. No suspicious lytic or blastic abnormality. SOFT TISSUES: Unremarkable. No discrete abdominal or pelvic wall hernia. VASCULATURE: Mild aortoiliac atherosclerotic calcification and calcifications at the arterial origins, including estimated mild stenosis at the origin of the SMA and origin of right renal artery. Abdominal aorta is non-dilated. LYMPH NODES: Unremarkable. No enlarged lymph nodes. CT/Abdomen/Pelvis WITH Contrast IMPRESSION: 1. Degenerative spine changes including moderate apparent spinal stenosis at L4-5 due to multiple factors, similar to April 10, 2016. 2. Moderate stool in much of the colon. No focal inflammation or other specific acute abnormality. Electronically Signed: Felicity Costello MD at 22:24 EDT ,
[2022-10-17 16:27] LABS: CREATININE FINGERSTICK 1.4 mg/dL (0.55-1.02)
== END | disposition home or self-care (01) ==
LOC: CT 15:50
PROVIDERS: PCP Internal Medicine; Referring Provider Internal Medicine; Visit Provider Internal Medicine
DX: R10.9 Unspecified abdominal pain (principal); G89.29 Other chronic pain
CPT/HCPCS: 74177; Q9967

== ENCOUNTER → 2022-12-20 | Outpatient (CLI) | payer MEDICARE, OTHER, SELFPAY ==
[2022-12-20 12:44] LABS: Absolute Lymphocyte Count 2.44 X10^3/uL (0.83-4.51); Absolute Neutrophil Count 3.7 X10^3/uL (2.0-7.7); Basophil# 0.04 X10^3/uL; Basophil% 0.6 % (0-1); Eosinophil# 0.11 X10^3/uL; Eosinophils% 1.6 % (0-5); Hematocrit 47.5 % (37-47); Hemoglobin 15.5 g/dL (12.0-15.0); Lymphocyte # 2.44 X10^3/ul (0.83-4.51); Lymphocyte % 35.5 % (19-41); Mean Corp Hgb Conc 32.6 g/dL (32-36); Mean Corpuscular Hgb 31.4 pg (27.0-32.0); Mean Corpuscular Volume 96.3 fL (81-99); Mean Platelet Vol. 10.4 fl (6.2-12.0); Monocyte# 0.58 X10^3/uL; Monocyte% 8.4 % (0-10); NRBC Flagged by Analyzer 0 % (0-5); Neutrophil # 3.69 X10^3/uL (2.7-7.7); Neutrophil % 53.8 % (47-70); Platelet Count 389 K/mm3 (150-450); RBC Distribution Width SD 42.7 fl (35.1-43.9); Red Blood Count 4.93 M/mm3 (4.2-5.4); White Blood Count 6.9 K/mm3 (4.4-11.0)
[2022-12-20 14:04] LABS: ALB/GLOB Ratio 1.1 RATIO (0.9-2.4); AST(SGOT) 12 U/L (15-37); Alanine Aminotransfer ALT/SGPT 28 U/L (13-56); Albumin, Serum 3.9 g/dL (3.2-5.0); Alkaline Phosphatase 75 U/L (45-117); Anion Gap 7 (5-15); BUN 18 mg/dL (7-18); Calcium,Total 9.3 mg/dL (8.5-10.1); Chloride 110 mmol/L (98-107); Cholesterol 244 mg/dL (200); Creatinine, Serum 0.78 mg/dL (0.55-1.02); EST Glomerular Filtration Rate 77 mL/min (>60); Est Glom Filt Rate - Afr Amer 93 mL/min (>60); Globulin 3.7 g/dL (2.2-4.2); Glucose 120 mg/dL (74-106); High Density Lipoprotein 52 mg/dL; Potassium 3.8 mmol/L (3.5-5.1); Protein, Total 7.6 g/dL (6.4-8.2); Sodium Level 142 mmol/L (136-145); Triglycerides 157 mg/dL; Very Low Density Lipoprotein 31 mg/dL (5-40)
== END | disposition home or self-care (01) ==
LOC: BIMLAB 11:54
PROVIDERS: PCP Internal Medicine; Referring Provider Internal Medicine; Visit Provider Internal Medicine
DX: E78.5 Hyperlipidemia, unspecified (principal); I10 Essential (primary) hypertension
CPT/HCPCS: 36415; 80053; 80061; 85025

== ENCOUNTER → 2023-01-23 | Outpatient (CLI) | payer MEDICARE, OTHER, SELFPAY ==
--- NOTE | 2023-01-23 14:41 | PFTCOMP ---
COMPLETE PULMONARY FUNCTION TEST INTERPRETATION Brief HPI: Patient is a 73-year-old female, currently under the care of Meg Gusman, who presents to [facility] for complete pulmonary function tests secondary to diagnosis of dyspnea. Respiratory therapist reports good effort and reproducible results. Interpretation: Forced expiration spirometry shows no large airways obstructive ventilatory defect with an FEV1 of 123% predicted. There is no significant bronchodilator response by strict ATS criteria. Spirograms are of good quality and plateau normally. The respiratory flow volume loop shows a normal pattern. Lung volumes by body plethysmography show a normal total lung capacity at 6.42 L, 118% predicted. All other lung volumes are within normal limits. Diffusion capacity by carbon monoxide is normal at 122% predicted. The airway resistance is normal. Compared to previous pulmonary function tests from 10/04/2017, there has been no significant change. Impression: These pulmonary function tests are within normal limits and show no significant changes compared to 2018
== END | disposition home or self-care (01) ==
LOC: PSN 08:10
PROVIDERS: PCP Internal Medicine; Referring Provider Nurse Practitioner Acute Care; Visit Provider Nurse Practitioner Acute Care
DX: R06.02 Shortness of breath (principal)
CPT/HCPCS: 94060; 94726; 94729

== ENCOUNTER → 2023-02-01 | Outpatient (CLI) | payer MEDICARE, OTHER, SELFPAY ==
[2023-02-01 13:00] VITALS: PULSE 104; PULSE 110; PULSE 111; PULSE 112; PULSE 113; PULSE 85; PULSE 95; PULSE 96; O2SAT 91; O2SAT 93; O2SAT 94; O2SAT 95
--- NOTE | 2023-02-02 08:46 | PCM.PSN.6M ---
PSN 6 Minute Walk Test 6 Minute Walk Test 6 Minute Walk Test: 6 Minute Walk Test PSN:6-Minute Walk Test Start: 02/01/23 13:31 Freq: Status: Active Protocol: RESP.6MINW Document 02/01/23 13:00 EW (Rec: 02/01/23 13:36 EW [id number]) 6 Minute Walk Test Date Performed 02/01/23 Time Performed 13:00 Height 5 ft 7 in Weight: 235 lb Weight in Pounds 235.0 lbs Assistive device used: None Pre-test Oxygen Delivery Method Room Air Pulse Ox 95 Pulse Rate (60-100) 85 Dyspnea Patrick Scale (0-10) 2 Exertion Patrick Scale (6-20) 7 1st minute Oxygen Delivery Method Room Air Pulse Ox 94 Pulse Rate (60-100) 95 2nd minute Oxygen Delivery Method Room Air Pulse Ox 94 Pulse Rate (60-100) 104 H 3rd minute Oxygen Delivery Method Room Air Pulse Ox 94 Pulse Rate (60-100) 110 H 4th minute Oxygen Delivery Method Room Air Pulse Ox 93 Pulse Rate (60-100) 112 H 5th minute Oxygen Delivery Method Room Air Pulse Ox 91 Pulse Rate (60-100) 113 H 6th minute Oxygen Delivery Method Room Air Pulse Ox 91 Pulse Rate (60-100) 111 H Post-test Oxygen Delivery Method Room Air Pulse Ox 95 Pulse Rate (60-100) 96 Dyspnea Patrick Scale (0-10) 1 Exertion Patrick Scale (6-20) 11 Full Laps Walked 19 Partial Lap, Number of Tiles Walked 0 Total Distance Walked (ft) 1121 Interpretation Interpretation: The patient ambulated 1121 feet over the course of 6 minutes beginning on room air without assistive devices. Pretesting oxygen saturation was noted to be 95% on room air. With ambulation, the renate oxygen saturation was 91%. There was no significant exertional oxygen desaturation. Recommendations Recommendations: There is no indication for the use of supplemental oxygen at this time.
== END | disposition home or self-care (01) ==
LOC: PSN 12:56
PROVIDERS: PCP Internal Medicine; Referring Provider Nurse Practitioner Acute Care; Visit Provider Nurse Practitioner Acute Care
DX: R06.02 Shortness of breath (principal)
CPT/HCPCS: 94618

== ENCOUNTER 2023-03-01 13:53 | Observation (INO) | payer MEDICARE, OTHER, SELFPAY ==
--- NOTE | 2023-02-05 08:55 | RAD_ITS ---
INDICATION: PREOP -- EKG FIRST, WILL CALL EXAMINATION/TECHNIQUE: X-RAY - XR Chest 2 Views COMPARISON: 12/16/2019 FINDINGS: LIFE-SUPPORT AND LINES: 1. None HEART AND VESSELS: The cardiac silhouette, pulmonary vasculature have normal appearance. No evidence of congestive failure. LUNGS AND PLEURAL SPACES: There is shallow inspiration and crowding of bronchovascular markings. No pulmonary mass is noted. MEDIASTINUM AND HILAR REGIONS: No masses adenopathy noted. No areas of calcification. Visualized upper airway is normal in position. BONY ELEMENTS: No acute bony changes noted. Interval postoperative changes in the lower spine. RAD/Chest PA and Lateral IMPRESSION: 1. Shallow inspiration and crowding of bronchovascular markings. 2. No focal infiltrate, consolidation, congestive failure or effusion. Electronically Signed: Alejandro Devlin MD at 22:23 EST ,
[2023-02-05 10:15] LABS: Absolute Lymphocyte Count 2.43 X10^3/uL (0.83-4.51); Absolute Neutrophil Count 3.9 X10^3/uL (2.0-7.7); Basophil# 0.04 X10^3/uL; Basophil% 0.6 % (0-1); Eosinophil# 0.14 X10^3/uL; Eosinophils% 1.9 % (0-5); Hematocrit 49.7 % (37-47); Hemoglobin 15.9 g/dL (12.0-15.0); Lymphocyte # 2.43 X10^3/ul (0.83-4.51); Lymphocyte % 33.7 % (19-41); Mean Corpuscular Hgb 30.6 pg (27.0-32.0); Mean Corpuscular Volume 95.8 fL (81-99); Mean Platelet Vol. 10.4 fl (6.2-12.0); Monocyte# 0.66 X10^3/uL; Monocyte% 9.2 % (0-10); NRBC Flagged by Analyzer 0 % (0-5); Neutrophil # 3.93 X10^3/uL (2.7-7.7); Neutrophil % 54.5 % (47-70); Platelet Count 363 K/mm3 (150-450); RBC Distribution Width CV 12.4 % (11.6-14.6); RBC Distribution Width SD 43.6 fl (35.1-43.9); Red Blood Count 5.19 M/mm3 (4.2-5.4); White Blood Count 7.2 K/mm3 (4.4-11.0)
[2023-02-05 10:27] LABS: Partial Thromboplast Time 29.5 Seconds (24.1-36.2)
[2023-02-05 10:58] LABS: Anion Gap 5 (5-15); BUN 16 mg/dL (7-18); BUN/Creat Ratio 20.2 RATIO (10-20); Calcium,Total 9.5 mg/dL (8.5-10.1); Chloride 106 mmol/L (98-107); Creatinine, Serum 0.79 mg/dL (0.55-1.02); EST Glomerular Filtration Rate 76 mL/min (>60); Est Glom Filt Rate - Afr Amer 92 mL/min (>60); Glucose 148 mg/dL (74-106); Potassium 4.4 mmol/L (3.5-5.1); Sodium Level 141 mmol/L (136-145)
[2023-03-01] VITALS (14 sets, daily range): BP systolic 116–166; BP diastolic 47–85; PULSE 63–90; RESP 16–20; TEMP 35.9–37.3; O2SAT 91–100; BMI 36.9
--- OUTSIDE RECORDS SUMMARY | 2023-03-01 08:46 | XMS RPT_ITS | CCD ---
Author Name Unknown Address [address] [place] [address] Organization [facility] Care Team Providers Care Track Sweeper Name Role Phone Alex Martinez Unavailable Unavailable PROVIDER, UNKNOWN Unavailable Unavailable GENTRY WILSON Unavailable Unavailable DR GENTRY WILSON MD Primary Care Physician KATIE CALVILLO, DR. RINALDI Primary Care JERMAN Babb DO Attending Ari WILSON MD., DR. RINALDI Primary Care UnavailJERMAN Santos DO Admitting Unavailable JERMAN BENJAMIN DO Attending Unavailable JERMAN BENJAMIN DO Consulting Unavailable Allergies Allergy Classification Reported Allergen(s) Allergy Type Date of Onset Reaction(s) Facility (2 sources) Codeine; Translations: [codeine] Drug Allergy ringing in ears, rash [facility] (2 sources) Penicillin; Translations: [penicillins] Drug Allergy rash [facility] Medications Current Medications Medication Drug Class(es) Dates Sig (Normalized) Sig (Original) acetaminophen 325 mg / HYDROcodone bitartrate 5 mg oral tablet (2 sources) Opioid Agonist Start: 02-08-2022 End: 02-15-2022 take 1 tablet by mouth every six hours as needed for pain [place] 325- 5 mg oral tablet Dose = 1 tab(s), Oral, q6h, PRN for pain, X 7 day(s), # 28 tab(s), 0 Refill(s), Pharmacy: [id number], Cervical spondylosis, 170.2, cm, 02/08/22 8:56:00 EST, Height, 140.5 Start Date: 02/08/22 Stop Date: 02/15/22 Status: Ordered Problems Problem Classification Problem Date Documented Da te Episodic/Chronic Essential hypertension (2 sources) Essential hypertension; Translations: [Essential (primary) hypertension] Onset: 01-25-2022 Chronic Nonspecific chest pain (2 sources) Chest pain; Translations: [Chest pain, unspecified] Onset: 02-08-2022 Episodic Residual codes; unclassified (1 source) Sleep apnea; Translations: [Sleep apnea, unspecified] Onset: 02-08-2022 Chronic Spondylosis; intervertebral disc disorders; other back problems (2 sources) Spinal stenosis, cervical region; Translations: [Spinal stenosis, cervical region] Onset: 02-08-2022 Episodic Results Test Name Value Interpretation Reference Range Facil ity Vital Signs Date Time Vital Sign Value Performing Clinician Shaniqua avila 02-09-2022 14:37-0500 Reason For Taking VItal Signs JERMAN BENJAMIN DO [facility] 02-09-2022 11:58-0500 Body temperature 97.52 [degF] JERMAN BENJAMIN DO [facility] 02-09-2022 11:58-0500 Diastolic Blood Pressure Non-Invasive 85 1 JERMAN BENJAMIN DO [facility] 02-09-2022 11:58-0500 Heart rate 92 /min JERMAN BENJAMIN DO [facility] 02-09-2022 11:58-0500 Reason For Taking VItal Signs JERMAN BENJAMIN DO [facility] 02-09-2022 11:58-0500 Respiratory rate 16 /min JERMAN BENJAMIN DO [facility] 02-09-2022 11:58-0500 Systolic Blood Pressure Non-Invasive 151 1 JERMAN BENJAMIN DO [facility] 02-09-2022 09:27-0500 Heart rate 88 /min JERMAN BENJAMIN DO [facility] 02-09-2022 09:27-0500 Respiratory rate 16 /min JERMAN BENJAMIN DO [facility] 02-09-2022 09:24-0500 Body temperature 98.24 [degF] JERMAN BENJAMIN DO [facility] 02-09-2022 09:24-0500 Diastolic Blood Pressure Non-Invasive 94 1 JERMAN BENJAMIN DO [facility] 02-09-2022 09:24-0500 Heart rate 99 /min JERMAN BENJAMIN DO [facility] 02-09-2022 09:24-0500 Reason For Taking VItal Signs JERMAN BENJAMIN DO [facility] 02-09-2022 09:24-0500 Respiratory rate 16 /min JERMAN BENJAMIN DO [facility] 02-09-2022 09:24-0500 Systolic Blood Pressure Non-Invasive 180 1 JERMAN BENJAMIN DO [facility] 02-09-2022 08:50-0500 Heart rate 92 /min JERMAN BENJAMIN DO [facility] 02-09-2022 03:41-0500 Body temperature 98.24 [degF] JERMAN BENJAMIN DO [facility] 02-09-2022 03:41-0500 Diastolic Blood Pressure Non-Invasive 80 1 JERMAN BENJAMIN DO [facility] 02-09-2022 03:41-0500 Heart rate 99 /min JERMAN BENJAMIN DO [facility] 02-09-2022 03:41-0500 Systolic Blood Pressure Non-Invasive 139 1 JERMAN BENJAMIN DO [facility] 02-08-2022 14:00-0500 Body weight 48.5 kg/m2 JERMAN BENJAMIN DO [facility] 02-08-2022 12:05-0500 Body temperature 96.98 [degF] JERMAN BENJAMIN DO [facility] 02-08-2022 11:55-0500 Respiratory Rate - Anes 14 br/min JERMAN BENJAMIN DO [facility] 02-08-2022 11:50-0500 Respiratory Rate - Anes 2 br/min JERMAN BENJAMIN DO [facility] 02-08-2022 11:45-0500 Body temperature 97.23 [degF] JERMAN BENJAMIN DO [facility] 02-08-2022 11:45-0500 Respiratory Rate - Anes 3 br/min JERMAN BENJAMIN DO [facility] 02-08-2022 11:40-0500 Body temperature 97.09 [degF] JERMAN BENJAMIN DO [facility] 02-08-2022 11:35-0500 Body temperature 96.98 [degF] JERMAN BENJAMIN DO [facility] 02-08-2022 08:46-0500 Blood Pressure Location JERMAN BENJAMIN DO [facility] 02-08-2022 08:46-0500 Blood Pressure Method JERMAN BENJAMIN DO [facility] 02-08-2022 08:46-0500 Body height 170.2 cm JERMAN BENJAMIN DO [facility] 02-08-2022 08:46-0500 Body temperature 97.7 [degF] JERMAN BENJAMIN DO [facility] 02-08-2022 08:46-0500 Body weight 140.5 kg JERMAN BENJAMIN DO [facility] 02-08-2022 08:46-0500 Heart rate 89 /min JERMAN BENJAMIN DO [facility] 01-25-2022 13:10-0500 Body height 170.2 cm JERMAN BENJAMIN DO [facility] 01-25-2022 13:10-0500 Body weight 104.5 kg JERMAN BENJAMIN DO [facility] 01-25-2022 13:10-0500 Body weight 36.07 kg/m2 JERMAN BENJAMIN DO [facility] 01-25-2022 13:10-0500 diastolic 80 mm[Hg] JERMAN BENJAMIN DO [facility] 01-25-2022 13:10-0500 Heart rate 91 /min JERMAN BENJAMIN DO [facility] 01-25-2022 13:10-0500 Respiratory rate 20 /min JERMAN BENJAMIN DO [facility] 01-25-2022 13:10-0500 systolic 124 mm[Hg] JERMAN BENJAMIN DO [facility] Encounters Encounter Date Encounter Type Care Provider Facility Start: 02-08-2022 End: 02-09-[address] GENTRY WILSON MD. Facility:B Start: 02-08-2022 End: 12-08-2022 Observation JERMAN BENJAMIN DO [facility] Start: 01-25-2022 End: 01-26-[address] GENTRY WILSON MD. Facility:[facility] Start: 01-25-2022 End: 01-25-2022 Admission to establishment JERMAN BENJAMIN DO [facility] Start: 09-21-2017 [facility] Procedures Date Procedure Procedure Detail Performing Clinician Start: 02-08-2022 Cervical arthrodesis by anterior technique JERMAN BENJAMIN DO Immunizations Immunization Date Immunization Notes Care Provider [facility] 08-05-2021 SARS-CoV-2 (COVID-19 ) mRNA-1273 vaccine JERMAN BENJAMIN DO [facility] 02-22-2021 SARS-CoV-2 (COVID-19 ) mRNA-1273 vaccine JERMAN BENJAMIN DO [facility] 11-15-2020 influenza virus vaccine, unspecified formulation JERMAN BENJAMIN DO [facility] 07-08-2020 SARS-CoV-2 (COVID-19 ) mRNA-1273 vaccine JERMAN BENJAMIN DO [facility] Payers Date Payer Category Payer Medicare [id number] 2022 Unknown [id number] 1950 Unknown [id number] 1950 Unknown [id number] Medicare Social History Date Type Detail Facility Start: 01-25-2022 Tobacco smoking status Never s moked tobacco (finding) [facility] Sex Assigned At Female [facility] Functional Status Date Assessment Result Facility 02-09-2022 Functional Status Room check performed [facility] 02-09-2022 Functional Status [facility] 02-08-2022 Functional Status Min A [facility] 02-08-2022 Functional Status [facility] 02-08-2022 Functional Status ice on [facility] 02-08-2022 Functional Status Maintained [facility] 01-25-2022 Functional Status Sensory Deficits None A [facility] Mental Status Date Assessment Result Facility 02-09-2022 Mental Status Orientation Asse ssment Oriented x 4 [facility] 02-09-2022 Mental Status Orientation Oriented x 4 [facility] 02-08-2022 Mental Status [facility] Clinical Note 02-09-2022 Note Date & Type Note Facility 02-09-2022 Note Date of Service 02/09/2022 Subjective Overnight patient remained afebrile and hemodynamically stable. She was on O2 via nasal cannula overnight however she was weaned to room air with oxygen saturations of 94 to 97%. White blood cell count 13,000 with no fevers. Glucose mildly elevated at 143. On exam today, pt denies any fever or chills. No headache or dizziness. Denies chest pain, palpitations. No cough, dyspnea, sputum production. Denies N/V/D/C. No melena/hematochezia. No dysuria or hematuria. No new paresthesias. Objective Vitals and Measurements T: 36.4 C (Oral) TMIN: 36.4 C (Oral) TMAX: 36.8 C (Oral) HR: 92(Monitored) RR: 16 BP: 151/85 SpO2: 97% Intake and Output 7AM Yesterday to 7AM Today Intake and Output (Last 24 hours) Intake Output Total Summary Total Intake 0.00 Total Output 0.00 Fluid Balance 0.00 Physical Exam GEN: Appears chronically ill CHEST: Normal S1 and S2. Rhythm is regular. Clear to auscultation, without rales, rhonchi, wheezing. ABD: Positive bowel sounds x 4 quads. Soft, nondistended, nontender. EXT: No significant deformity or joint abnormality. No edema. Peripheral pulses intact. NEURO: Sensation grossly intact SKIN: Surgical dressing in place PSYCH: The mental examination revealed the patient was alert and oriented x 4 Weight Current Weight Dosing Weight: 140.5 kg (02/08/22) Current Weight: 140.5 kg (02/08/22) Dosing Weight: 140.5 kg (02/08/22) Medications No qualifying data available Lab Results 02/09 05:20 WBC: 13.6 H Hgb: 12.2 Hct: 35.1 L Platelet: 342 Neutrophil %: 81.0 H Glucose Level: 143 H Sodium Level: 141 Potassium Level: 4.1 BUN: 14 Creatinine Lvl (s): 0.69 EKG EKG [AO] - Completed -- 02/08/22 14:09:00 EST, 02/08/22 14:09:00 EST Assessment/Plan 1. Chest pain 2. HTN (hypertension) 3. Sleep apnea 4. Cervical spondylosis Chest pain resolved. EKG and troponins unremarkable. HTN- SBP goal 140 or less. Continue home antihypertensives. Sleep apnea continue CPAP at at bedtime. Cervical spondylosis management per primary team Patient is medically optimized for discharge DVT prophylaxis: SCDs Labs, diagnostics, and progress notes reviewed as noted in HPI Code Status: Full code Plan of care discussed with patient. All questions answered. Patient verbalizes understanding is agreeable to plan of care. Thank you for requesting our participation in the care of your patient. We will continue to follow during their hospitalization. This dictation was performed using voice recognition software and may include grammatical and/or spelling errors. Digitally Signed by AISHWARYA CONTRERAS on 02/09/2022 06:13 PM [facility] Discharge instructions 02-09-2022 Note Date & Type Note Facility 02-09-2022 Hospital Discharg e instructions Patient Education 02/09/2022 11:51:10 Anterior Cervical Diskectomy and Fusion, Care After Anterior Cervical Diskectomy and Fusion, Care After This sheet gives you information about how to care for yourself after your procedure. Your health care provider may also give you more specific instructions. If you have problems or questions, contact your health care provider. What can I expect after the procedure? After the procedure, it is common to have: Neck pain. Discomfort when swallowing. Slight hoarseness. Follow these instructions at home: If you have a neck brace: Wear it as told by your health care provider. Remove it only as told by your health care provider. Keep the brace clean and dry. Ask your health care provider if you should remove the brace to bathe or shower. Incision care Follow instructions from your health care provider about how to take care of your incision. Make sure you: ?Wash your hands with soap and water before and after you change your bandage (dressing). If soap and water are not available, use hand leaf stamper. ?Change your dressing as told by your health care provider. ?Leave stitches (sutures), skin glue, or adhesive strips in place. These skin closures may need to stay in place for 2 weeks or longer. If adhesive strip edges start to loosen and curl up, you may trim the loose edges. Do not remove adhesive strips completely unless your health care provider tells you to do that. Check your incision area every day for signs of infection. Check for: ?Redness, swelling, or pain. ?Fluid or blood. ?Warmth. ?Pus or a bad smell. Managing pain, stiffness, and swelling Take pezy-qdk-rjhggqt and prescription medicines only as told by your health care provider. If directed, put ice on the injured area. ?If you have a removable brace, remove it as told by your health care provider. ?Put ice in a plastic bag. ?Place a towel between your skin and the bag. ?Leave the ice on for 20 minutes, 2 3 times a day. Activity Return to your normal activities as told by your health care provider. Ask your health care provider what activities are safe for you. Do exercises as told by your health care provider. Do not take baths, swim, or use a hot tub until your health care provider approves. Do not lift anything that is heavier than 10 lb (4.5 kg), or the limit that you are told, until your health care provider says that it is safe. General instructions Ask your health care provider if the medicine prescribed to you: ?Requires you to avoid driving or using heavy machinery. ?Can cause constipation. You may need to take actions to prevent or treat constipation, such as: ?Drink enough fluid to keep your urine pale yellow. ?Take iuyv-tzv-xsybivk or prescription medicines. ?Eat foods that are high in fiber, such as beans, whole grains, and fresh fruits and vegetables. ?Limit foods that are high in fat and processed sugars, such as fried and sweet foods. Do not use any products that contain nicotine or tobacco, such as cigarettes, e-cigarettes, and chewing tobacco. These can delay healing. If you need help quitting, ask your health care provider. Keep all follow-up visits and physical therapy appointments as told by your health care provider. This is important. Contact a health care provider if you have: A fever. Redness, swelling, or pain around your incision. Fluid or blood coming from your incision. Pus or a bad smell coming from your incision. Pain that is not controlled by your pain medicine. Increasing hoarseness or trouble swallowing. Get help right away if you have: Severe pain. Sudden numbness or weakness in your arms. Warmth, tenderness, or swelling in your calf. Chest pain. Difficulty breathing. Summary After the procedure, it is common to have neck pain, discomfort when swallowing, and slight hoarseness. Follow instructions from your health care provider about how to take care of your incision. Check your incision area every day for signs of infection. Return to your normal activities as told by your health care provider. Ask your health care provider what activities are safe for you. Contact a health care provider if you have signs of infection at your incision. This information is not intended to replace advice given to you by your health care provider. Make sure you discuss any questions you have with your health care provider. Document Released: 03/17/2016 Document Revised: 11/14/2018 Document Reviewed: 11/14/2018 [employer] Patient Education 2020 [employer] Follow Up Care 01/11/2022 10:45:19 With:JERMAN BENJAMIN DO, Orthopedic Address: [address] [place] [address], [address] [facility] [place] [address]- [phone] When: Unknown [facility] Clinical Note 02-09-2022 Note Date & Type Note Facility 02-09-2022 Note Discharge Instructions Thank you for allowing [facility] to assist you with your healthcare needs. The following is important discharge information regarding your hospital visit. Your Care Team Jerman Benjamin, DO Your Diagnosis Chest pain HTN (hypertension) Sleep apnea Cervical spondylosis What to do next Instructions From Your Doctor Activity: Do not drive, smoke, operate machinery, return to work, or engage in activities that require you to be alert when taking narcotics, pain relievers or muscle relaxants No reaching overhead Do not turn your head from side to side, turn your upper body Wear both ROBERTO hose continuously for 6 weeks Remove during shower time and replaced with a clean pair Wash with soap and water, then hang dry for next use No heavy lifting, pulling, or pushing more than 10 pounds for 3 months Must wear your cervical collar at all times Call Dr. Benjamin office if: You have any difficulty breathing, swallowing, or swelling of your throat You have a sore throat that does not go away with ice chips, lozenges, pain meds etc. You fall at home, call immediately You experience numbness and/or tingling in your arms or legs that is changed or increased after discharge You develop chills, and/or fever greater than 100 degrees You have drainage from your incision, especially bloody or thick yellow You have increased redness or swelling around the incision You have severe or continued headaches, especially if no headaches were present in the hospital You start having increased pain that is not relieved by your medicine You run out of pain medication Care for your incision: Never put anything on your incision, no creams lotions or antibiotic ointment No hot tubs, swimming, or soaking in water for 6 weeks, or until your incision is healed To shower, cover your incision with a 4 x 4, Tegaderm dressing, and you must wear your cervical collar Change the dressing to your neck daily using a dry 4 x 4 and tape Wear your bone growth stimulator if given 1 daily as instructed If you need to shave using electric razor, do not tilt your head back or shave over the incision General reminders: Do not take any medications, herbal, prescription, or itpq-nls-judggsy unless prescribed for the next 12 weeks Remember to take your pain medication and/or muscle relaxants as ordered to keep your pain under control No NSAIDs for 3 months, will interfere with the fusion. Swelling around the nerves can cause continued numbness and tingling for days or weeks after surgery Follow Up Appointments Follow Up with JERMAN BENJAMIN DO, Orthopedic When Where: [facility], [address] [facility] [place] [address] [phone] The Following Activity and Diet Have Been Ordered for You No qualifying data available. No qualifying data available. The Following Equipment Has Been Ordered for You No qualifying data available. The Following Treatments Have Been Ordered for You Discharge Labs No qualifying data available. Discharge Radiology No qualifying data available. Other Therapies No qualifying data available. Post Acute Orders No qualifying data available. Someone Will Contact You Regarding These Home Health Referrals No home referrals have been ordered for you. No one will call you. Allergies codeine (ringing in ears, rash) penicillin (rash) Medications Please ask your primary doctor or pharmacist before taking any other medication not listed, including over the counter drugs, herbal medications, vitamins and or supplements as they may interact with your home medications. What How Much When Why Instructions Last Dose Changed acetaminophen-hydrocodone ([place] 325- 5 mg oral tablet) 1 tab(s) by mouth Every 6 hours as needed for for pain Cervical spondylosis Duration: 7 Days Pickup at [facility] Unchanged amLODIPine (amLODIPine 5 mg oral tablet) 1 tab(s) by mouth Once a day (in the evening) Unchanged cholecalciferol (Vitamin D3 25 mcg (1000 intl units) oral capsule) 1 cap by mouth Every day Unchanged furosemide (furosemide 40 mg oral tablet) 1 tab(s) by mouth Two (2) times a day Unchanged hydrochlorothiazide-olmesartan (hydrochlorothiazide-olmesartan 12.5 mg-40 mg oral tablet) 1 tab(s) by mouth Once a day (in the evening) Unchanged potassium chloride (Potassium Chloride (Eqv-K-Tab) 20 mEq oral tablet, extended release) 1 tab(s) by mouth Three (3) times a day Take with food Unchanged pregabalin (pregabalin 75 mg oral capsule) 1 cap by mouth Two (2) times a day Pharmacy Information [facility]: [id number] [place], [place] [phone] Please take this list to your next doctor s visit. Bring all medications you take, including over the counter medications, herbals and other supplements with you to your doctor s visit. Patients and families are reminded to discard old lists and to update any records with all medication providers or retail pharmacies. Education Materials Anterior Cervical Diskectomy and Fusion, Care After This sheet gives you information about how to care for yourself after your procedure. Your health care provider may also give you more specific instructions. If you have problems or questions, contact your health care provider. What can I expect after the procedure? After the procedure, it is common to have: Neck pain. Discomfort when swallowing. Slight hoarseness. Follow these instructions at home: If you have a neck brace: Wear it as told by your health care provider. Remove it only as told by your health care provider. Keep the brace clean and dry. Ask your health care provider if you should remove the brace to bathe or shower. Incision care Follow instructions from your health care provider about how to take care of your incision. Make sure you: ? Wash your hands with soap and water before and after you change your bandage (dressing). If soap and water are not available, use hand leaf stamper. ? Change your dressing as told by your health care provider. ? Leave stitches (sutures), skin glue, or adhesive strips in place. These skin closures may need to stay in place for 2 weeks or longer. If adhesive strip edges start to loosen and curl up, you may trim the loose edges. Do not remove adhesive strips completely unless your health care provider tells you to do that. Check your incision area every day for signs of infection. Check for: ? Redness, swelling, or pain. ? Fluid or blood. ? Warmth. ? Pus or a bad smell. Managing pain, stiffness, and swelling Take cesd-rcl-uczuvzj and prescription medicines only as told by your health care provider. If directed, put ice on the injured area. ? If you have a removable brace, remove it as told by your health care provider. ? Put ice in a plastic bag. ? Place a towel between your skin and the bag. ? Leave the ice on for 20 minutes, 2 3 times a day. Activity Return to your normal activities as told by your health care provider. Ask your health care provider what activities are safe for you. Do exercises as told by your health care provider. Do not take baths, swim, or use a hot tub until your health care provider approves. Do not lift anything that is heavier than 10 lb (4.5 kg), or the limit that you are told, until your health care provider says that it is safe. General instructions Ask your health care provider if the medicine prescribed to you: ? Requires you to avoid driving or using heavy machinery. ? Can cause constipation. You may need to take actions to prevent or treat constipation, such as: ? Drink enough fluid to keep your urine pale yellow. ? Take qyjz-tie-kzjdkhm or prescription medicines. ? Eat foods that are high in fiber, such as beans, whole grains, and fresh fruits and vegetables. ? Limit foods that are high in fat and processed sugars, such as fried and sweet foods. Do not use any products that contain nicotine or tobacco, such as cigarettes, e-cigarettes, and chewing tobacco. These can delay healing. If you need help quitting, ask your health care provider. Keep all follow-up visits and physical therapy appointments as told by your health care provider. This is important. Contact a health care provider if you have: A fever. Redness, swelling, or pain around your incision. Fluid or blood coming from your incision. Pus or a bad smell coming from your incision. Pain that is not controlled by your pain medicine. Increasing hoarseness or trouble swallowing. Get help right away if you have: Severe pain. Sudden numbness or weakness in your arms. Warmth, tenderness, or swelling in your calf. Chest pain. Difficulty breathing. Summary After the procedure, it is common to have neck pain, discomfort when swallowing, and slight hoarseness. Follow instructions from your health care provider about how to take care of your incision. Check your incision area every day for signs of infection. Return to your normal activities as told by your health care provider. Ask your health care provider what activities are safe for you. Contact a health care provider if you have signs of infection at your incision. This information is not intended to replace advice given to you by your health care provider. Make sure you discuss any questions you have with your health care provider. Document Released: 03/17/2016 Document Revised: 11/14/2018 Document Reviewed: 11/14/2018 [employer] Digital Patient Education 2020 [employer] Additional Information VACCINATE! IT SAVES LIVES! Members of the community who have not yet received the COVID-19 vaccine and would like to receive it can visit one of [facility] vaccine clinics. There are many vaccine clinic locations within the [facility]. For locations and available times, please visit [email or web address] It is important to note that some COVID mobile vaccine clinics are held outdoors and may be canceled in rainy or stormy conditions. To learn more about pediatric vaccinations (ages 5-11), we invite you to visit the [facility] webpage. [email or web address] To learn more about the COVID-19 vaccine, we invite you to visit the [employer] website for a list of frequently asked questions. [email or web address] [facility] Patient Portal Access Instructions: Stay connected with your healthcare team and access your personal medical information anytime with the [facility] Patient Portal.If you would like a full copy of your medical records, please contact the [facility] Medical Records Department, Sunday through Sunday between 8a.m. and 4:30p.m. Please follow the directions below to access the portal: 1.Access the email account you provided upon registration to the hospital.2.Look for an invitation email from [facility].3.Open the email and access the invitation link: Accept Invitation to [facility]4.Fill in the required palacios to create your account. Sign into [email or web address] with your username and password that you created in the above steps to stay up to date. You can then view a summary of results, a summary of your visits, and the ability to download your summaries to your computer or send the information securely to a physician. Remember that your healthcare information is confidential, so carefully consider who you will allow to register on the [facility] Patient Portal for access to your information. You can also access the [facility] Patient Portal on the [employer] angel. Simply click on Health Records under Health Data and then click on the [employer] logo. HOW TO SAFELY DISPOSE OF PRESCRIPTION MEDICATIONS Please use one of the following methods to safely dispose of your unused medications. 1.Use a drug disposal kit: the drug disposal pouch allows you to safely discard your old and unused drugs. Ask your nurse to give you one when you are discharged.2.Visit a local take-back location: Many local pharmacies and police departments have programs that collect old and unwanted prescription drugs. Call your local pharmacy or go to http://[email or web address]/9Q0Hi1x to find one close to you.3.Make use of household items: Use cat litter or old coffee grounds to dispose medications if other options are not available. Mix your drugs with these household products, seal them in an airtight container and throw it into the garbage. Call [facility]: [phone] to be sure your drugs can be disposed of in this way. Some medicines may require a different approach.4.Never flush your medications down the toilet. IF YOU HAVE BEEN PRESCRIBED AN OPIOID FOR PAIN If you have been prescribed an opioid (such as hydrocodone, oxycodone or morphine), it is critical to understand the possible side effects and risks of opioid pain medications. Even when taken as directed, opioids can have several side effects including: Tolerance, meaning you might need to take more of a medication for the same pain relief. Nausea, vomiting and/or constipation. Sleepiness, dizziness, dry mouth, confusion, depression or itching. Physical dependence, meaning you have withdrawal symptoms when a medication is stopped, can develop within a few days. KNOW YOUR RESPONSIBILITIES It is important to know exactly how much and how often to take the opioid pain medications you are prescribed. Never take opioids in higher amounts or more often than prescribed. Do not combine opioids with alcohol or other drugs that cause drowsiness, such as benzodiazepines, also known as benzos, including diazepam and alprazolam, muscle relaxants or sleep aids. Never sell or share prescription opioids. This is illegal. Store opioids in a secure place and out of reach of others (including children, family, friends and visitors). The last page of this document has been signed and retained as a CHART COPY. Signatures Patient Education Materials Anterior Cervical Diskectomy and Fusion, Care After Medication Leaflets My discharge plan and instructions have been reviewed and explained to me and IEDGAR CHERYL L understand my current condition and have read and understand these discharge instructions. I have received a written copy of the plan/instructions. If I have questions, I am aware that I should contact my doctor. Patient/Technical Support Specialist Signature: _ Date/Time: Relationship to Patient: Witness Name/Signature: Date/Time: [facility] Note 02-08-2022 Note Date & Type Note Facility 02-08-2022 Note ORIGINAL Images acquired, not reported on this accession number. [facility] Clinical Note 02-08-2022 Note Date & Type Note Facility 02-08-2022 Note ORIGINAL Images acquired, not reported on this accession number. [facility] Anesthesiology Consult note 02-08-2022 Note Date & Type Note Facility 02-08-2022 Anesthesiology Consult note Patient: ELY HERNÁNDEZ Age: 72 years Sex: Female : 1950 Associated Diagnoses: None Author: LONA OSBORNE Preoperative Information Anesthesia history Patient's history: negative. Family's history: negative. Health Status Allergies: Allergic Reactions (Selected) Severity Not Documented Codeine- Rash and ringing in ears. Penicillin- Rash., Allergies (2) ActiveReaction codeineringing in ears penicillinrash Current medications: (Selected) Inpatient Medications Ordered Bolus LR 1000 mL: 1,000 mL, IV Bolus, PREOP pharm Kefzol: 2 gram(s), 200 mL/hr, IV Piggyback, PREOP pharm LR 1000 mL: 125 mL/hr, Intravenous, Stop: 02/09/22 17:59:00 EST Pepcid IV: 20 mg, 2 mL, IV Push, PREOP pharm Tylenol: 1,000 mg, 2 tab(s), Oral, PREOP pharm Documented Medications Documented Potassium Chloride (Eqv-K-Tab) 20 mEq oral tablet, extended release: 20 mEq, 1 tab(s), Oral, TID, Take with food, 30 tab(s), 0 Refill(s) Vitamin D3 25 mcg (1000 intl units) oral capsule: 25 mcg, 1 cap(s), Oral, Daily, 0 Refill(s) acetaminophen-hydrocodone 325 mg-5 mg oral tablet: 1 tab(s), Oral, Daily, PRN: for pain, 0 Refill(s) amLODIPine 5 mg oral tablet: 5 mg, 1 tab(s), Oral, qDay, 30 tab(s), 0 Refill(s) furosemide 40 mg oral tablet: 80 mg, 2 tab(s), Oral, Daily, 0 Refill(s) hydrochlorothiazide-olmesartan 12.5 mg-40 mg oral tablet: 1 tab(s), Oral, Daily, 30 tab(s), 0 Refill(s) pregabalin 75 mg oral capsule: 75 mg, 1 cap(s), Oral, BID, 0 Refill(s), Medications (5) Active Scheduled: (4) acetaminophen 500 mg Tablet 1,000 mg 2 tab(s), Oral, PREOP pharm ceFAZolin 2 gram(s), IV Piggyback, PREOP pharm famotidine 20 mg/2 mL vial 20 mg 2 mL, IV Push, PREOP pharm Lactated Ringers Injection 1000 mL * Bolus * 1,000 mL, IV Bolus, PREOP pharm Continuous: (1) Lactated Ringers 1000 mL 1,000 mL, Intravenous, 125 mL/hr PRN: (0) Problem list: Active Problems (7) Brain fog Dependent edema DVT (deep venous thrombosis) HTN (hypertension) Neck pain OA (osteoarthritis) Sleep apnea Histories Past Medical History: No active or resolved past medical history items have been selected or recorded. Family History: No family history items have been selected or recorded. Procedure history: Arthroscopy of knee ([id number]). Comments: 01/25/2022 13:50 Tita Enriquez RN Right Tonsillectomy ([id number]). Open wound of left lower leg due to animal bite ([id number]). History of partial thyroidectomy ([id number]). section ([id number]). Comments: 01/25/2022 13:50 Tita Enriquez RN x2 ORIF - Open reduction of fracture of ankle with internal fixation ([id number]). Comments: 01/25/2022 13:50 Tita Enriquez RN Right Social History Social & Psychosocial Habits Alcohol 01/25/2022 Use: Never Substance Abuse 01/25/2022 Use: Never Tobacco 01/25/2022 Tobacco Use: Never (less than 100 in l Home/Environment 01/25/2022 Domestic Concerns None Living situation: Home/Independent Primary Core Setter: Self Current Home Treatments CPAP Special Services and Community Resources None Spouse Name Ilir Marital Status of Patient if Patient Independent Adult: Nutrition/Health 01/25/2022 Type of diet: Regular Appetite Good Eating Difficulties None . Physical Examination Vital Signs 02/08/2022 8:46 EST Temperature Temporal Artery 36.5 DegC Peripheral Pulse Rate 89 bpm Respiratory Rate 18 br/min Systolic Blood Pressure Non-Invasive 140 mmHg HI Diastolic Blood Pressure Non-Invasive 84 mmHg Blood Pressure Method Automatic Blood Pressure Location Right arm Vital Signs(last 24 hrs) Last Charted Resp Rate 18 br/min (FEB 08 08:46) SBPH 140mmHg (FEB 08 08:46) DBP84 mmHg (FEB 08 08:46) General: Alert and oriented, Mild distress. Airway: Normal temporomandibular joint mobility. Mallampati classification: II (soft palate, fauces, uvula visible). Dentition Evaluation: Dentures, lower, Dentures, upper. Respiratory: Lungs are clear to auscultation, Respirations are non-labored. Cardiovascular: Normal rate, Regular rhythm. Neurologic: Alert, Oriented. Review / Management Results review: No qualifying data available , Lab results 02/08/2022 8:48 EST SN - PP - Body Position Supine Standard Intra-op 02/08/2022 8:47 EST SN - Assess - LOC Alert, Awake SN - Assess - Orientation Oriented X 3 SN - Assess - Post-op Skin Integrity Intact/Dry 02/08/2022 8:47 EST SN - GCD - Post-operative Diagnosis SPINAL STENOSIS CERVICAL REGION; OTHER SPONDYLOSIS WITH RADICULOPATHY, CERVICAL REGION; OTHER SPECIFIED INFLAMMATORY SPONDYLOPATHIES, CERVICAL REGION; CERVICAL DISC DEGENERATION, UNSPECIFIED CERVICAL REGION; CERVICALGIA; FIBROMYALGIA SN - GCD - Case Level Level 5 02/08/2022 8:46 EST SN - CAt - Case Attendee SN - CAt - Case Attendee SN - CAt - Case Attendee SN - CAt - Case Attendee SN - CAt - Case Attendee SN - CAt - Case Attendee SN - CAt - Case Attendee SN - CAt - Case Attendee SN - CAt - Case Attendee SN - CAt - Case Attendee SN - CAt - Case Attendee SN - CAt - Case Attendee SN - CAt - Case Attendee SN - CAt - Case Attendee SN - CAt - Case Attendee SN - CAt - Case Attendee SN - CAt - Role Performed Primary Surgeon SN - CAt - Role Performed Scrub 1 SN - CAt - Role Performed Production Bow Maker 1 SN - CAt - Role Performed Janitorial Assistant 1 SN - CAt - Role Performed TRIM SETTER SN - CAt - Role Performed Phone Screener SN - CAt - Role Performed Nurse Transitional SN - CAt - Role Performed Phone Screener 02/08/2022 8:46 EST Temperature Temporal Artery 36.5 DegC Peripheral Pulse Rate 89 bpm Respiratory Rate 18 br/min Systolic Blood Pressure Non-Invasive 140 mmHg HI Diastolic Blood Pressure Non-Invasive 84 mmHg Blood Pressure Method Automatic Blood Pressure Location Right arm Heart Sounds ICU S1S2 Heart Rhythm Regular Oxygen Therapy Room air Oxygen Saturation 96 % Belongings At Bedside Cell phone, Dentures, lower, Dentures, upper, Pants, Shirt, Shoes 02/08/2022 8:42 EST Infectious Disease Symptoms Patient states no symptoms Safety Brochure Information Reviewed Unable to complete [facility] Video Viewed No Teaching Evaluation Verbalizes/Nonverbally indicates understanding Admission Note-Nursing Same Day Patient History (Modified) 02/08/2022 8:35 EST citric acid-sodium citrate Not Done: Not Appropriate at this Time (Not Done) 02/08/2022 8:33 EST SN - Preop - CTm Pt in SDS Room 02/08/2022 8:33 02/08/2022 7:23 EST Patient Instructions Documentation Patient Instructions Documentation . Assessment and Plan [place] [employer] Anesthesiologists (ASA) physical status classification: Class III. Anesthetic Preoperative Plan Anesthetic technique: General. Maintenance airway: Oral endotracheal tube. Postoperative pain management: Per surgeon. Risks discussed: nausea, vomiting, sore throat, hypotension, allergic reaction, serious complications. Informed consent: signed by patient. Digitally Signed by LONA OSBORNE on 02/08/2022 08:50 AM [facility] Clinical Note 02-08-2022 Note Date & Type Note Facility 02-08-2022 Note Date of Service 02/08/2022 Chief Complaint Status post C5-6, C6-7 ACDF Subjective The patient was seen and examined postoperatively in the PACU. She is resting comfortably. Her pain is controlled. She denies any other complaints including numbness tingling or weakness Intake and Output 7AM Yesterday to 7AM Today Intake and Output (Last 24 hours) Intake Output Total Summary Total Intake 0.00 Total Output 0.00 Fluid Balance 0.00 Physical Exam A&O, NAD NCAT, EOMI Regular rate and rhythm Dressing clean dry and intact, cervical collar in place Clear to auscultation bilaterally Abdomen soft and nontender Extremities: Sensation and motor intact grossly without focal deficit, no tenderness to palpation or edema, pulses and reflexes are normal and symmetric No qualifying data available. Medications Medications (6) Active Scheduled: (5) acetaminophen 500 mg Tablet 1,000 mg 2 tab(s), Oral, PREOP pharm ceFAZolin 2 gram(s), IV Piggyback, PREOP pharm citric acid-sodium citrate 334 mg-500 mg/5 mL (30 mL) Blank UD 30 mL, Oral, PREOP pharm famotidine 20 mg/2 mL vial 20 mg 2 mL, IV Push, PREOP pharm Lactated Ringers Injection 1000 mL * Bolus * 1,000 mL, IV Bolus, PREOP pharm Continuous: (1) Lactated Ringers 1000 mL 1,000 mL, Intravenous, 125 mL/hr PRN: (0) Lab Results No 36 Hour Lab Data EKG No qualifying data available. Assessment/Plan Orders: Lactated Ringers Infusion 1000 mL, Start: 02/08/22 6:00:00 EST, 18 hour(s), Stop date 02/09/22 17:59:00 EST, Rate: 125 mL/hr Okay to admit to floor See orders Discharge planning likely home tomorrow Digitally Signed by JERMAN BENJAMIN DO on 02/08/2022 12:04 PM [facility] Evaluation + Plan note Note Date & Type Note Facility Evaluation + Plan note Future Appointments [facility] Hospital course Narrative Note Date & Type Note Facility Hospital course Narrative No data available for this section [facility] Hospital Discharge instructions Note Date & Type Note Facility Hospital Discharge instructions No data available for this section [facility] Summary Purpose Family History No Family History Records FoundNo Family History Records FoundNo Family History Records FoundNo Family History Records Found Advance Directives No Advanced Directives Records FoundNo Advanced Directives Records FoundNo Advanced Directives Records FoundNo Advanced Directives Records Found Additional Source Comments INFORMATION SOURCE (unrecogn ized section and content) DATE CREATED AUTHOR AUTHOR'S ORGANIZ ATION 08/13/2018 [facility] DATE CREATED AUTHOR AUTHOR'S ORGANIZ ATION 12/05/2021 [facility] dical Specialist DATE CREATED AUTHOR AUTHOR'S ORGANIZ ATION 03/06/2022 [facility] [place] ([place]) Care Team (unrecognized sect ion and content) Care Team Personnel Name: GENTRY WILSON MD Member Role: Primary Care Physician Address: Address: [facility] [place] [address]- Care Team Related Persons Name: ILIR HERNÁNDEZ Address: Home [address] [place] [id number] Care Team Personnel Name: GENTRY WILSON MD Member Role: Primary Care Physician Address: Address: [facility] [place] [address]- Care Team Related Persons Name: JOHNRADHAILIR Address: [address] [address] FOR RECORDS PERTAINING TO PATIENTS WHO ARE OR HAVE BEEN ENROLLED IN A CHEMICAL DEPENDENCY/SUBSTANCEABUSE PROGRAM, SOME INFORMATION MAY BE OMITTED. This clinical summary was aggregated from multiple sources. Caution should be exercised in using it in the provision of clinical care. This summary normalizes information from multiple sources, and as a consequence, information in this document may materially change the coding, format and clinical context of patient data. In addition, data may be omitted in some cases. CLINICAL DECISIONS SHOULD BE BASED ON THE PRIMARY CLINICAL RECORDS. [facility]. provides no warranty or guarantee of the accuracy or completeness of information in this document.
--- NOTE | 2023-03-01 08:52 | OP.PCM_ITS ---
Report of Operation Date of Procedure: 03/01/23 Description of Surgical Findings:: Preop diagnosis: 1. Lumbar stenosis, L4-5 with spondylosis 2. Lumbar degenerative disc disease L4-5 Postop diagnosis: 1. Lumbar stenosis, L4-5 with spondylosis 2. Lumbar degenerative disc disease L4-5 Procedures performed: 1. L4-5 posterior lumbar interbody fusion 2. Insertion of intervertebral biomechanical device x1 3. Structural allograft for spinal fusion 4. L4 bilateral laminectomies, foraminotomies, facetectomies, decompression of bilateral nerve roots 5. L4-5 posterolateral fusion 6. Pedicle screw fixation 7. Local autograft for spinal fusion 8. Neuro monitoring bilateral upper and bilateral lower extremities Statement of medical necessity: The patient is a 73-year-old female with intractable back and leg pain. Image studies confirm the above diagnoses. They have failed conservative treatments and have opted for operative intervention understanding the risk to include but not limited to infection, bleeding, damage to nerves arteries and veins, possibility of spinal fluid leak, nonunion, hardw are failure, continued pain, need for further surgery, deep vein thrombosis, pulmonary embolism, heart attack, risk of stroke or . Description of the procedure: The patient was identified in the preoperative holding area. There they received preoperative IV antibiotics and was then transferred to the operative suite. Once in the operative suite after general endotracheal anesthesia was established, the patient was positioned prone on the Mahendra operating table. All bony prominences were padded accordingly. The lumbar spine was prepped and draped in a standard fashion. Bear hugger's were not turned on until the drapes were placed and sealed with Ioban. A midline incision was made and taken down to the fascia. The fascia was divided and subperiosteal dissection was taken down to the level of the transverse processes of L4 and L5 bilaterally. Deep retractors were placed. A bone scalpel was used to make cuts in the lamina and then a series of rongeurs and Kerrisons were used removing the spinous process and lamina of L4. Then facetectomies of greater than 50% were performed at L4-5 bilaterally as well as foraminotomies decompressing the bilateral nerve roots. Given the severity of the stenosis I needed to perform wide bilateral laminectomies and near complete facetectomies in order to decompress the neural elements. Disc created instability necessitating the fusion. I then proceeded with interbody fusion. The nerve roots and dura were identified and retracted medially. A knife was utilized to perform an annulotomy at L4-5 on the right. Endplate elevators, curettes, and pituitaries were utilized to remove disc material. Endplates were prepared with a rasp. An appropriate sized intervertebral peek cage device measuring 11 mm was packed with structural allograft and impacted into position completing the posterior lumbar interbody fusion at the L4-5 level. I then proceeded with pedicle screw fixation. Starting points were found at the junction of the superior articular process and transverse processes of L4 and L5 bilaterally. A power bur was used for the starting points. Pedicle probes were placed bilaterally and then 6.5 x 55 mm screws were placed bilaterally at L4 and L5. The screws were tested with intraoperative neurophysiologic monitoring and tested within normal limits. Connector rods were applied and secured with set screws. I then proceeded with the posterolateral fusion. This was accomplished by decorticating the transverse processes bilaterally at L4 and L5. This decorticated bone was then bridged with local autograft from the decompression as well as morselized cancellous allograft completing the posterolateral fusion of the L4-5 level. The incision was thoroughly irrigated. Tisseel was placed over the dura as a hemostatic agent. The fascia was closed with #1 Vicryl, subcutaneous with 2-0 Vicryl and skin with 2-0 nylon. A sterile dressing was applied with 4 x 4's ABD and tape. Sponge instrument and needle counts were correct at the end of the case. Neurophysiologic monitoring was maintained at baseline throughout the duration of the case. The patient was extubated and taken to the PACU without incident Surgeon: David Zavala Type of Anesthesia: General Drains: Hemovac Estimated Blood Loss (mL): 250 cc Fluids Replaced: 2000 cc Grafts/Implants Used: Unified spine Complications None Admit VTE Documentation VTE Present on Admission: No
--- NOTE | 2023-03-01 08:52 | PCM.PN.ORT ---
Subjective Subjective Seen and examined postop. Resting comfortably. Pain controlled. No complaints Objective Data Lab / Micro Data 02/05/23 09:09 02/05/23 09:09 Physical Exam Const alert, oriented x3 and no apparent distress General Appearance: cooperative, comfortable and well kempt HEENT normocephalic and head/scalp atraumatic Eyes EOMs intact bilaterally and conjunctivae normal Neck full ROM General: normal visual inspection Chest inspection of chest normal and palpation of chest normal Resp normal respiratory effort and normal air movement Effort and Inspection: able to speak in complete sentences Cardio regular rate, regular rhythm and peripheral pulses 2+ throughout GI soft to palpation, non-tender and non-distended Back/Spine Back/Spine Narrative: Dressing clean dry and intact Cervical Spine: cervical ROM normal Thoracic Spine / Upper Back: normal to inspection Lumbar Spine / Lower Back: normal to inspection Extremity normal to inspection, full ROM, normal capillary refill, no clubbing, cyanosis or edema and no calf tenderness Skin no rashes or lesions noted General Skin Exam: no breakdown Neuro oriented x3, CN's II-XII intact bilaterally, moves all extremities, no focal motor deficits, no sensory deficits noted and deep tendon reflexes 2+ bilaterally Motor Exam: strength 5/5 throughout and muscle tone normal throughout Assessment & Plan Assessment/Plan (1) Lumbar stenosis: PLAN: Okay to admit See orders Discharge planning, likely home tomorrow
--- NOTE | 2023-03-01 08:54 | PCM.DC.SUM ---
Providers Date of Admission: 03/01/23 Primary Care Physician: Dr. Selena Sahu MD Reason For Visit: LUMBAR STENOSIS Diagnosis Discharge Diagnosis (1) Lumbar stenosis: Status: Acute Code(s): M48.061 - Spinal stenosis, lumbar region without neurogenic claudication Plan: Okay to admit See orders Discharge planning, likely home tomorrow Medications at Discharge Home Medications oxybutynin chloride 5 mg tablet,extended release 24 hr 5 mg PO DAILY #60 tabs 09/18/22 furosemide 40 mg tablet 40 mg PO BID fluid #180 tabs 11/08/22 potassium chloride 20 mEq tablet,extended release 20 meq PO DAILY #90 tabs 11/08/22 lovastatin 10 mg tablet 10 mg PO QPM #30 tabs 01/01/23 olmesartan 40 mg tablet 40 mg PO QHS 02/01/23 venlafaxine 37.5 mg capsule,extended release 24 hr 37.5 mg PO DAILY 02/01/23 hydrocodone-acetaminophen 5-325mg 5mg-325mg 1 tab PO Q6H 7 days #28 tabs 03/01/23 Hospital Course Operations - (L4-5 posterior lumbar interbody fusion, decompression, posterior spinal fusion with instrumentation, use of allograft) Summary of Care Provided Minutes Spent on Discharge: 15 Hospital Course: The patient is a 73-year-old female who underwent L4-5 fusion on 03/01/2023. She was subsequently admitted. The hospitalist was consulted for medical management. The patient progressed well. Her pain was controlled and she was mobilizing well. No significant medical issues were reported. She was subsequently discharged home om 03/04/23 to follow-up with Dr. Zavala in 3 weeks Physical Exam Const alert, oriented x3 and no apparent distress General Appearance: cooperative, comfortable and well kempt Neck full ROM General: normal visual inspection Chest inspection of chest normal and palpation of chest normal Resp normal respiratory effort and normal air movement Effort and Inspection: able to speak in complete sentences Cardio regular rate and peripheral pulses 2+ throughout GI soft to palpation, non-tender and non-distended Back/Spine Back/Spine Narrative: Dressing clean dry and intact. Incision well-approximated with interrupted sutures in place. No tenderness erythema drainage or fluctuance Cervical Spine: cervical ROM normal Thoracic Spine / Upper Back: normal to inspection Lumbar Spine / Lower Back: normal to inspection Extremity normal to inspection, full ROM, normal capillary refill, no clubbing, cyanosis or edema and no calf tenderness Skin no rashes or lesions noted General Skin Exam: no breakdown Neuro oriented x3, CN's II-XII intact bilaterally, moves all extremities, no focal motor deficits, no sensory deficits noted and deep tendon reflexes 2+ bilaterally Motor Exam: strength 5/5 throughout and muscle tone normal throughout ABG / Lab / Microbiology Data 03/04/23 05:47 03/04/23 05:47 D/C Instructions Discharge Diet: No restrictions Additional Activity Instructions: No repetitive bending twisting or lifting greater than 5 pounds. Wear back brace at all times. Okay to remove brace to sleep Call your doctor if your incision/area has: Continuous Slow Oozing, Sudden Increased Bleeding, Increased Pain/ Swelling, Increased Redness, Foul Smelling Discharge and Swelling at the incision site Call your doctor if you observe: Fever of 101 or Higher, Coldness, Increased Pain, Numbness or Tingling, Change in Color, Inability to urinate, Inability to have a bowel movement, Using more than 1 pad per hour, Shortness of breath, Dizziness, Fainting spells, Swelling in the ankles, Chest pain, Prolonged hiccupping, Increased palpitations (irregular heartbeat), Calf discomfort and Uncontrolled pain Cleanse incision/area with: Do not get Incision Wet and Keep Dressing Clean & Dry Additional Dressing/Incision Instructions: Change dressing daily with iodine gauze and tape. Use waterproof dressing to shower Additional Instructions: 1. During your procedure, you received sedation through your IV. Please follow these instructions for the next 24 hours: Do not drive a motor vehicle, do not drink any alcoholic beverages, and do not sign any legal documents or make personal or business decisions. A responsible adult should stay with you at least 6 hours after the procedure. 2. Keep your surgical site/incision clean and the dressing dry and intact. You may use an ice pack at the surgical site to reduce any swelling or discomfort. 3. Monitor the incision site for any signs or symptoms of infection. Watch for redness, excessive swelling or drainage, or continued pain at the incision site after 3 days. Contact your physician immediately for a fever, chills or a temperature of 101.5? F or greater. 4. Take your medication exactly as prescribed by your physician. Do not attempt to wean yourself off any of your medications even though your pain is improving. This process needs to be carefully monitored by your doctor. Take any antibiotics prescribed exactly as directed and until they are gone. 5. Avoid stretching, bending, pulling, twisting or any sudden movements. Do not bend or twist at the waist. Wear back brace at all times 6. No lifting greater than 5 pounds. 7. Do not operate a motor vehicle, equipment or a power tool while taking pain medication 8. Do not have any manipulation done by a chiropractor or any other physician without first consulting with the surgeon 9. Please contact our office if you are even scheduled for a CT scan or an MRI. 10. Please call us if you have any questions, problems or concerns. Please Follow Up With: David Zavala DO When: 3 weeks Meaningful Use Info Meaningful Use Diagnoses (Choose all that apply): None applicable Discharge Plan Admission Admit Date/Time: 03/01/23 13:53 Attending Provider: David Zavala Primary Care Provider: Selena Sahu Consulting Providers: Heather Forrest; Leroy Pñia; Janae Santo; Janae Gaston; Genie Phillips; Florence Solorzano; Alina Ireland; Rajiv Bose; Rajiv Hayes; Barry Lau; Gilberto Rockwell; Zayda Sahu; Russ Erwin; Kelvin Hernadez; Michael Rowell; Imelda Carvajal; Karthik Moreira; Che Sepulveda; Malachi Butler; Reji Montano; Conrad Eubanks; Liz Zeng; Manish Gonzalez; Emilie Lay NP; Gurinder Rojo Instructions Additional Instructions / Restrictions: 1. During your procedure, you received sedation through your IV. Please follow these instructions for the next 24 hours: Do not drive a motor vehicle, do not drink any alcoholic beverages, and do not sign any legal documents or make personal or business decisions. A responsible adult should stay with you at least 6 hours after the procedure. 2. Keep your surgical site/incision clean and the dressing dry and intact. You may use an ice pack at the surgical site to reduce any swelling or discomfort. 3. Monitor the incision site for any signs or symptoms of infection. Watch for redness, excessive swelling or drainage, or continued pain at the incision site after 3 days. Contact your physician immediately for a fever, chills or a temperature of 101.5? F or greater. 4. Take your medication exactly as prescribed by your physician. Do not attempt to wean yourself off any of your medications even though your pain is improving. This process needs to be carefully monitored by your doctor. Take any antibiotics prescribed exactly as directed and until they are gone. 5. Avoid stretching, bending, pulling, twisting or any sudden movements. Do not bend or twist at the waist. Wear back brace at all times 6. No lifting greater than 5 pounds. 7. Do not operate a motor vehicle, equipment or a power tool while taking pain medication 8. Do not have any manipulation done by a chiropractor or any other physician without first consulting with the surgeon 9. Please contact our office if you are even scheduled for a CT scan or an MRI. 10. Please call us if you have any questions, problems or concerns. Discharge Orders/Prescriptions Prescriptions: New hydrocodone-acetaminophen 5-325 mg tablet 1 tab PO Q6H 7 Days Qty: 28 0RF Continued furosemide 40 mg tablet 40 mg PO BID Qty: 180 3RF potassium chloride 20 mEq tablet extended release 20 meq PO DAILY Qty: 90 3RF olmesartan 40 mg tablet 40 mg PO QHS venlafaxine 37.5 mg capsule,extended release 24hr 37.5 mg PO DAILY oxybutynin chloride 5 mg tablet extended release 24hr 5 mg PO DAILY Qty: 60 2RF lovastatin 10 mg tablet 10 mg PO QPM Qty: 30 2RF Discontinued hydrocodone-acetaminophen 5-325 mg tablet 1 tab PO QHS PRN (Reason: pain) aspirin [Adult Low Dose Aspirin] 81 mg tablet,delayed release (DR/EC) 81 mg PO DAILY Referrals / Follow Up: Selena Sahu MD [Primary Care Provider] - David Zavala DO [Med Staff - Active Staff] - Disposition Disposition (needs filled in before D/C Order can be placed): Home, Self Care
[2023-03-01] MEDS: Lactated Ringers 1,000 ML 15 ML IV (09:17)
--- NOTE | 2023-03-01 09:20 | RAD_ITS ---
EXAM: XR LUMBOSACRAL SPINE, 2 OR 3 VIEWS CLINICAL INDICATION: L4-5 POSTERIOR INTERBODY FUSION, DECOMP TECHNIQUE: 7 fluoroscopic images are provided. COMPARISON: No relevant prior studies available. FINDINGS: Localizer tip at the level of L4 on initial exam. Hardware placed at L4-L5 and metallic markers in what appears to be a disc spacer on the later views. RAD/Lumbar Spine 2 or 3 Views IMPRESSION: Intraoperative and immediate postoperative images. Electronically Signed: Felicity Costello MD at 6:21 EST ,
[2023-03-01] MEDS: Clindamycin in 0.9% Sod Chlor 600 MG/50 ML BAG 100 MG IV (10:07)
[2023-03-01] MEDS: THROMBIN (RECOMBINANT) 20,000 UNIT VIAL 20000 UNIT TOPICAL (10:53)
[2023-03-01] MEDS: Heparin 10,000 UNITS/10 ML Vial 10000 UNITS (10:53)
[2023-03-01] MEDS: Bupivacaine 0.25% 30 ML Vial (13:51)
[2023-03-01] MEDS: Lactated Ringers 1,000 ML 100 ML IV ×2 (14:20→22:43)
--- NOTE | 2023-03-01 14:20 | SUR.PHASEI ---
Addendum entered by Ness Leonardo 03/01/23 15:52: At 1535, Dr Zavala and Leon Damon cp bleacher operator, notified that patient had redness to chin and bridge of nose which were noted on PACU arrival. Redness is blanchable to both sites, but chin redness is firm. Dr Catherine was also notified. Original Note: SKIN ACROSS BRIDGE OF NOSE & CHIN ARE REDDENED, BLANCHES EASILY NOTED UPON PACU ARRIVAL. THE SKIN TO THE CHIN IS SLIGHTLY FIRM.
--- NOTE | 2023-03-01 16:29 | PCM.PN.HOSP ---
Reason for Visit Reason for Visit: Diagnoses Spinal stenosis, lumbar region without neurogenic claudication (03/01/23) Encounter for other preprocedural examination (03/01/23) Subjective Subjective Patient notes ongoing aching and severe pain to the lumbar region rated 10 out of 10 with no paresthesias or shooting pains down the legs but some increased tight sensation/burning to the anterior thigh bilaterally. She recently just came from PACU and medications are being obtained for her. She denies any other acute complaints at this time. She is asking to be repositioned but otherwise no requests. Patient denies fevers, chills, nausea, emesis, abdominal pain, chest pain or dyspnea. Objective Data Objective Data Vital Signs: Vital Signs Temp Pulse Resp BP Pulse Ox O2 Del Method O2 Flow Rate 97.3 F L 72 16 139/72 H 98 Room Air 2 03/01/23 15:35 03/01/23 15:35 03/01/23 15:35 03/01/23 15:35 03/01/23 15:35 03/01/23 15:35 03/01/23 15:35 Oxygen Flow Rate (L/min) 2 Oxygen Delivery Method Room Air Weight: 235 lb 14.314 oz Body Mass Index (BMI) 36.9 Intake & Output: Intake and Output for Last 24 Hours 02/27/23 02/28/23 03/01/23 23:59 23:59 23:59 Intake Total 2049 / 2049 Output Total 250 / 250 Balance 1800 / 1800 Lab / Micro Data 02/05/23 09:09 02/05/23 09:09 Physical Exam Narrative Physical Examination: General: Awake, alert, oriented x 3 and cooperative, laying in the MS bed, appears uncomfortable, recently transition back from PACU Skin: Normal color, normal turgor, no icterus, no cyanosis except for recent lumbar dressing in place with no drainage although difficult evaluation as she is currently position on her back with side rolling. HEENT: AT/NC, EOMI, PERRLA, moderately dry MM, no carotid bruits or JVD noted; however thickened neck makes evaluation difficult. Lungs: Mildly diminished, greater bases, proper effort, no rales, ronchi or wheezing. Heart: Regular rate and rhythm; no gallop, rub audible. Abdomen: Soft, obese, some mild discomfort to bilateral lower quadrants but no rebound or guarding, distant BS, difficult to assess distention and HSM given habitus. Extremities: No cyanosis, no clubbing, BL ankle not markedly pitting edema. Neurological: Patient awake, alert, oriented as noted, cognitive function intact; pupils equally reactive to light and accommodation, cranial nerves grossly normal, moving all 4 extremities although limited given recent lumbar back pain, no focal deficits, strength severely globally decreased secondary to recent OR. Psychiatric: Affect appears fatigued, uncomfortable, no acute evidence of depressive or anxiety feelings. Assessment & Plan Assessment/Plan (1) Lumbar stenosis: PLAN: Plan The patient is a 73 y/o F w/ PMHx: Obesity, Anxiety and Depression/Mood disorder, HESHAM on CPAP, HTN, HLD, Hx VTE, Pulmonary HTN, PVD, SLE who presents to the [facility] on 03/01/23 secondary to chronic lumbar back discomfort with lumbar stenosis for planned L4-5 posterior lumbar interbody fusion, insertion of intervertebral biomechanical device, structural allograft spinal fusion, L4 bilateral laminectomy/foraminotomies/facetectomy/decompression bilateral nerve roots, L4-5 posterior lateral fusion, pedicle screw fixation, local allograft for spinal fusion per Dr. Zavala. #1. Severe intractable lumbar back pain: Failed conservative therapies and treatments, admitted per Dr. Zavala, s/p L4-5 posterior lumbar interbody fusion, insertion of intervertebral biomechanical device, structural allograft spinal fusion, L4 bilateral laminectomy/foraminotomies/facetectomy/decompression bilateral nerve roots, L4-5 posterior lateral fusion, pedicle screw fixation, local allograft for spinal fusion, post-operative pain management, bowel regimen, DVT Prophylaxis, PT/OT/CM per surgery discretion. #2. Pulmonary hypertension: Per current list not on regimen but from review of chart does follow with pulmonary medicine with most recent evaluation 02/02/23, most recent noted echocardiogram 04/29/2021 with normal LV systolic function, EF 60%, mild MVI, mild TVI, RVSP 35 mmHg, diastolic function indeterminate. #3. Hypertension: Continue home regimen including Lasix, losartan, PRN hydralazine. #4. Hyperlipidemia: We will continue patient on statin therapy. #5. Anxiety depression/mood disorder: We will continue patient home venlafaxine regimen. #6. Obesity: Weight loss and lifestyle changes encouraged. #7. SLE: Noted in chart history, per current list not on any chronic regimen, encourage continued outpatient follow-up with rheumatology. #8. History of VTE: Per current list not on any chronic anticoagulation, would be appropriate once cleared per surgery given this history to have prophylaxis initiated. #9. HESHAM with chronic supplemental oxygen bled in nightly: CPAP nightly. #10. DVT prophylaxis: SCDs, chemoprophylaxis per surgery discretion given recent OR. Charges/Coding Visit Charges Inpatient E&M: 46846 Subs Hosp L3
--- NOTE | 2023-03-01 17:07 | NURSING ---
cps aware of pt with home cpap/oxgyen bleed and machine is at bedside
[2023-03-01] MEDS: Clindamycin 900 MG/50 ML BAG 75 MG IV (17:32)
[2023-03-01] MEDS: oxyCODONE 5 MG Tablet PO ×2 (17:32→23:21)
[2023-03-01] MEDS: Acetaminophen 500 MG Tablet 1000 MG PO ×2 (17:32→22:40)
[2023-03-01] MEDS: Furosemide 40 MG Tablet PO (17:32)
[2023-03-01] MEDS: Morphine 2 MG/ML Syringe IV (19:31)
--- NOTE | 2023-03-01 22:02 | CPS ---
set up pt own cpap machine with 2 l/m o2 bleed
[2023-03-01] MEDS: Atorvastatin Calcium 10 MG Tablet 5 MG PO (22:40)
[2023-03-01] MEDS: Losartan Potassium 100 MG Tablet PO (22:40)
[2023-03-02] MEDS: Clindamycin 900 MG/50 ML BAG 75 MG IV (02:08)
[2023-03-02 04:00] VITALS: BP 115/55; PULSE 83; RESP 16; TEMP 37.1; O2SAT 93
[2023-03-02] MEDS: Acetaminophen 500 MG Tablet 1000 MG PO ×3 (05:11→21:33)
[2023-03-02] MEDS: oxyCODONE 5 MG Tablet PO ×4 (06:40→21:32)
[2023-03-02 07:15] VITALS: O2SAT 93
--- OUTSIDE RECORDS SUMMARY | 2023-03-02 07:21 | XMS RPT_ITS | CCD ---
Author Name Unknown Address [address] [place] [address] Organization [facility] Care Team Providers Care Rolling Attendant Name Role Phone Alex Martinez Unavailable Unavailable PROVIDER, UNKNOWN Unavailable Unavailable GENTRY WILSON Unavailable Unavailable DR GENTRY WILOSN MD Primary Care Physician KATIE CALVILLO, DR. RINALDI Primary Care JERMAN Babb DO Attending Ari WILSON MD., DR. RINALDI Primary Care UnavailJERMAN Santos DO Admitting Unavailable JERMAN BENJAMIN DO Attending Unavailable JERMAN BENJAMIN DO Consulting Unavailable Allergies Allergy Classification Reported Allergen(s) Allergy Type Date of Onset Reaction(s) Facility (2 sources) Codeine; Translations: [codeine] Drug Allergy ringing in ears, rash [facility] (2 sources) Penicillin; Translations: [penicillins] Drug Allergy rash [facility] Medications Current Medications Medication Drug Class(es) Dates Sig (Normalized) Sig (Original) acetaminophen 325 mg / HYDROcodone bitartrate 5 mg oral tablet (2 sources) Opioid Agonist Start: 02-08-2022 End: 02-15-2022 take 1 tablet by mouth every six hours as needed for pain Abrams 325- 5 mg oral tablet Dose = 1 tab(s), Oral, q6h, PRN for pain, X 7 day(s), # 28 tab(s), 0 Refill(s), Pharmacy: [id number], Cervical spondylosis, 170.2, cm, [...] For Taking VItal Signs JERMAN BENJAMIN DO [facility] 02-09-2022 11:58-0500 Body temperature 97.52 [degF] JERMAN BENJAMIN DO [facility] 02-09-2022 11:58-0500 Diastolic Blood Pressure Non-Invasive 85 1 JERMAN BENJAMIN DO [facility] 02-09-2022 11:58-0500 Heart rate 92 /min JERMAN BENJAMIN DO [facility] 02-09-2022 11:58-0500 Reason For Taking VItal Signs JERMAN BENJAMIN DO [facility] 02-09-2022 11:58-0500 Respiratory rate 16 /min JERMAN BENJAMIN DO [facility] 02-09-2022 11:58-0500 Systolic Blood Pressure Non-Invasive 151 1 JERMAN BENJAMIN DO [facility] 02-09-2022 09:27-0500 Heart rate 88 /min JERMAN BENJAMIN DO [facility] 02-09-2022 09:27-0500 Respiratory rate 16 /min JERMAN BENJAMIN DO [facility] 02-09-2022 09:24-0500 Body temperature 98.24 [degF] JERMAN BENJAMIN DO [facility] 02-09-2022 09:24-0500 Diastolic Blood Pressure Non-Invasive 94 1 JERMAN BENJAMIN DO [facility] 02-09-2022 09:24-0500 Heart rate 99 /min JERMAN BENJAMIN DO [facility] 02-09-2022 09:24-0500 Reason For Taking VItal Signs JERMAN BENJAMIN DO [facility] 02-09-2022 09:24-0500 Respiratory rate 16 /min JERMAN BENJAMIN DO [facility] 02-09-2022 09:24-0500 Systolic Blood Pressure Non-Invasive 180 1 JERMAN BENJAMIN DO [facility] 02-09-2022 08:50-0500 Heart rate 92 /min JERMAN BENJAMIN DO [facility] 02-09-2022 03:41-0500 Body temperature 98.24 [degF] JERMAN BENJAMIN DO [facility] 02-09-2022 03:41-0500 Diastolic Blood Pressure Non-Invasive 80 1 JERMAN BENJAMIN DO [facility] 02-09-2022 03:41-0500 Heart rate 99 /min JERMAN BENJAMIN DO [facility] 02-09-2022 03:41-0500 Systolic Blood Pressure Non-Invasive 139 1 JERMAN BENJAMIN DO [facility] 02-08-2022 14:00-0500 Body weight 48.5 kg/m2 JERMAN BENJAMIN DO [facility] 02-08-2022 12:05-0500 Body temperature 96.98 [degF] JERMAN BENJAMIN DO [facility] 02-08-2022 11:55-0500 Respiratory Rate - Anes 14 br/min JERMAN BENJAMIN DO [facility] 02-08-2022 11:50-0500 Respiratory Rate - Anes 2 br/min JERMAN BENJAMIN DO [facility] 02-08-2022 11:45-0500 Body temperature 97.23 [degF] JERMAN BENJAMIN DO [facility] 02-08-2022 11:45-0500 Respiratory Rate - Anes 3 br/min JERMAN BENJAMIN DO [facility] 02-08-2022 11:40-0500 Body temperature 97.09 [degF] JERMAN BENJAMIN DO [facility] 02-08-2022 11:35-0500 Body temperature 96.98 [degF] JERMAN BENJAMIN DO [facility] 02-08-2022 08:46-0500 Blood Pressure Location JERMAN BENJAMIN DO [facility] 02-08-2022 08:46-0500 Blood Pressure Method JERMAN BENJAMIN DO [facility] 02-08-2022 08:46-0500 Body height 170.2 cm JERMAN BENJAMIN DO [facility] 02-08-2022 08:46-0500 Body temperature 97.7 [degF] JERMAN BENJAMIN DO [facility] 02-08-2022 08:46-0500 Body weight 140.5 kg JERMAN BENJAMIN DO [facility] 02-08-2022 08:46-0500 Heart rate 89 /min JERMAN BENJAMIN DO [facility] 01-25-2022 13:10-0500 Body height 170.2 cm JERMAN BENJAMIN DO [facility] 01-25-2022 13:10-0500 Body weight 104.5 kg JERMAN BENJAMIN DO [facility] 01-25-2022 13:10-0500 Body weight 36.07 kg/m2 JERMAN BENJAMIN DO [facility] 01-25-2022 13:10-0500 diastolic 80 mm[Hg] JERMAN BENJAMIN DO [facility] 01-25-2022 13:10-0500 Heart rate 91 /min JERMAN BENJAMIN DO [facility] 01-25-2022 13:10-0500 Respiratory rate 20 /min JERMAN BENJAMIN DO [facility] 01-25-2022 13:10-0500 systolic 124 mm[Hg] JERMAN BENJAMIN DO [facility] Encounters Encounter Date Encounter Type Care Provider Facility Start: 02-08-2022 End: 02-09-[address] GENTRY WILSON MD. Facility:B Start: 02-08-2022 End: 12-08-2022 Observation JERMAN BENJAMIN DO [facility] Start: 01-25-2022 End: 01-26-[address] GENTRY WILSON MD. Facility:B Start: 01-25-2022 End: 01-25-2022 Admission to establishment JERMAN BENJAMIN DO [facility] Start: 09-21-2017 Patient encounter [facility] Procedures Date Procedure Procedure Detail Performing Clinician Start: 02-08-2022 Cervical arthrodesis by anterior technique JERMAN BENJAMIN DO Immunizations Immunization Date Immunization Notes Care Provider Sigifredo flower 08-05-2021 SARS-CoV-2 (COVID-19 ) mRNA-1273 vaccine JERMAN BENJAMIN DO [facility] 02-22-2021 SARS-CoV-2 (COVID-19 ) mRNA-1273 vaccine JERMAN BENJAMIN DO [facility] 11-15-2020 influenza virus vaccine, unspecified formulation JERMAN BENJAMIN DO [facility] 07-08-2020 SARS-CoV-2 (COVID-19 ) mRNA-1273 vaccine JERMAN BENJAMIN DO [facility] Payers Date Payer Category Payer Medicare [id number] 2022 Unknown [id number] 1950 Unknown [id number] 1950 Unknown [id number] Medicare Social History Date Type Detail Facility Start: 01-25-2022 Tobacco smoking status Never s moked tobacco (finding) [facility] Sex Assigned At Female [facility] Functional Status Date Assessment Result Facility 02-09-2022 Functional Status Room check performed [facility] 02-09-2022 Functional Status [facility] 02-08-2022 Functional Status Min A [facility] 02-08-2022 Functional Status [facility] 02-08-2022 Functional Status ice on [facility] 02-08-2022 Functional Status Maintained [facility] 01-25-2022 Functional Status Sensory Deficits None A [facility] Mental Status Date Assessment Result Facility 02-09-2022 Mental Status Orientation Asse ssment Oriented x 4 [facility] 02-09-2022 Mental Status Orientation Oriented x 4 [facility] 02-08-2022 Mental Status [facility] Clinical Note 02-09-2022 Note Date & [...] by AISHWARYA CONTRERAS on 02/09/2022 06:13 PM [facility] Discharge instructions 02-09-2022 Note Date & Type [...] and water are not available, use hand gravity prospecting observer helper. ?Change your dressing as told by your [...] smell. Managing pain, stiffness, and swelling Take lfph-kuu-pzpvgkk and prescription medicines only as told by [...] to keep your urine pale yellow. ?Take vgxd-mhk-hebfqlc or prescription medicines. ?Eat foods that are [...] 03/17/2016 Document Revised: 11/14/2018 Document Reviewed: 11/14/2018 [employer] Patient Education 2020 [employer] Follow Up Care 01/11/2022 10:45:19 With:JERMAN BENJAMIN DO, Orthopedic Address: [address] [place] [address], [address] [facility] [place] [address]- [phone] When: Unknown [facility] Clinical Note 02-09-2022 Note Date & Type Note Facility 02-09-2022 Note Discharge Instructions Thank you for allowing [facility] to assist you with your healthcare needs. [...] not take any medications, herbal, prescription, or wavn-ooz-nqqlrty unless prescribed for the next 12 weeks Remember to take your pain medication and/or muscle relaxants as ordered to keep your pain under control No NSAIDs for 3 months, will interfere with the fusion. Swelling around the nerves can cause continued numbness and tingling for days or weeks after surgery Follow Up Appointments Follow Up with JERMAN BENJAMIN DO, Orthopedic When Where: [facility], [address] [facility] [place] [address]- [phone] The Following Activity and Diet Have Been [...] When Why Instructions Last Dose Changed acetaminophen-hydrocodone (Abrams 325- 5 mg oral tablet) 1 tab(s) by mouth Every 6 hours as needed for for pain Cervical spondylosis Duration: 7 Days Pickup at [facility] Unchanged amLODIPine (amLODIPine 5 mg oral [...] Two (2) times a day Pharmacy Information [facility]: [id number] [place], [place] [id number] [phone] Please take this list to your next [...] and water are not available, use hand gravity prospecting observer helper. ? Change your dressing as told by [...] smell. Managing pain, stiffness, and swelling Take lzmx-onu-ojsqlce and prescription medicines only as told by [...] keep your urine pale yellow. ? Take omlj-svo-cniorkw or prescription medicines. ? Eat foods that [...] 03/17/2016 Document Revised: 11/14/2018 Document Reviewed: 11/14/2018 [employer] Tablet [employer]mes Patient Education 2020 [employer] Additional Information VACCINATE! IT SAVES LIVES! Members of the community who have not yet received the COVID-19 vaccine and would like to receive it can visit one of [facility] vaccine clinics. There are many vaccine clinic locations within the [facility]. For locations and available times, please visit [email or web address] It is important to note that some COVID mobile vaccine clinics are held outdoors and may be canceled in rainy or stormy conditions. To learn more about pediatric vaccinations (ages 5-11), we invite you to visit the [facility] webpage. [email or web address]-Frequently-[email or web address] -Questions.html To learn more about the COVID-19 vaccine, we invite you to visit the [employer] website for a list of frequently asked questions. [email or web address]://[email or web address]assets/Patients-[email or web address] [email or web address]_[email or web address] [email or web address] [facility] Patient Portal Access Instructions: Stay connected with your healthcare team and access your personal medical information anytime with the [facility] Patient Portal.If you would like a full copy of your medical records, please contact the [facility] Medical Records Department, Sunday through Sunday between 8a.m. and 4:30p.m. Please follow the directions below to access the portal: 1.Access the email account you provided upon registration to the hospital.2.Look for an invitation email from [facility].3.Open the email and access the invitation link: Accept Invitation to [facility].Fill in the required palacios to create your account. Sign into www.[facility] with your username and password that you [...] you will allow to register on the [facility] Patient Portal for access to your information. You can also access the [facility] Patient Portal on the [employer] angel. Simply click on Health Records under Health Data and then click on the [employer] logo. HOW TO SAFELY DISPOSE OF PRESCRIPTION [...] Call your local pharmacy or go to [email or web address] to find one close to you.3.Make use of household items: Use cat litter or old coffee grounds to dispose medications if other options are not available. Mix your drugs with these household products, seal them in an airtight container and throw it into the garbage. Call [facility]: [phone] to be sure your drugs can be [...] aware that I should contact my doctor. Patient/Underwear Finisher Signature: _ Date/Time: Relationship to Patient: Witness Name/Signature: Date/Time: [facility] Clinical Note 02-08-2022 Note Date & Type Note Facility 02-08-2022 Note ORIGINAL Images acquired, not reported on this accession number. [facility] Clinical Note 02-08-2022 Note Date & Type Note Facility 02-08-2022 Note ORIGINAL Images acquired, not reported on this accession number. [facility] Anesthesiology Consult note 02-08-2022 Note Date [...] or recorded. Procedure history: Arthroscopy of knee ([id number]). Comments: 01/25/2022 13:50 Tita Enriquez RN Right Tonsillectomy ([id number]). Open wound of left lower leg due to animal bite ([id number]). History of partial thyroidectomy ([id number]). section ([id number]). Comments: 01/25/2022 13:50 Tita Enriquez RN x2 ORIF - Open reduction of fracture of ankle with internal fixation ([id number]). 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 Current Home Treatments CPAP Special Services [...] 1 SN - CAt - Role Performed Data Center Project Manager 1 SN - CAt - Role Performed Folder Seamer Automatic 1 SN - CAt - Role Performed MANAGER MSW SN - CAt - Role Performed Print Machine Operator SN - CAt - Role Performed Python Programmer SN - CAt - Role Performed Print Machine Operator 02/08/2022 8:46 EST Temperature Temporal Artery 36.5 [...] Brochure Information Reviewed Unable to complete [facility] Video Viewed No Teaching Evaluation Verbalizes/Nonverbally indicates understanding Admission Note-Nursing Same Day Patient History (Modified) 02/08/2022 8:35 EST citric acid-sodium citrate Not Done: Not Appropriate at this Time (Not Done) 02/08/2022 8:33 EST SN - Preop - CTm Pt in SDS Room 02/08/2022 8:33 02/08/2022 7:23 EST Patient Instructions Documentation Patient Instructions Documentation . Assessment and Plan [place] [employer] Anesthesiologists (ASA) physical status classification: Class III. Anesthetic Preoperative Plan Anesthetic technique: General. Maintenance airway: Oral endotracheal tube. Postoperative pain management: Per surgeon. Risks discussed: nausea, vomiting, sore throat, hypotension, allergic reaction, serious complications. Informed consent: signed by patient. Digitally Signed by LONA OSBORNE on 02/08/2022 08:50 AM [facility] Clinical Note 02-08-2022 Note Date & [...] JERMAN BENJAMIN DO on 02/08/2022 12:04 PM [facility] Evaluation + Plan note Note Date & Type Note Facility Evaluation + Plan note Future Appointments [facility] Hospital course Narrative Note Date & Type Note Facility Hospital course Narrative No data available for this section [facility] Hospital Discharge instructions Note Date & Type Note Facility Hospital Discharge instructions No data available for this section [facility] Summary Purpose Family History No Family History Records FoundNo Family History Records FoundNo Family History Records FoundNo Family History Records Found Advance Directives No Advanced Directives Records FoundNo Advanced Directives Records FoundNo Advanced Directives Records FoundNo Advanced Directives Records Found Additional Source Comments INFORMATION SOURCE (unrecogn ized section and content) DATE CREATED AUTHOR AUTHOR'S ORGANIZ ATION 08/13/2018 [facility] DATE CREATED AUTHOR AUTHOR'S ORGANIZ ATION 12/05/2021 [facility] dical Specialist DATE CREATED AUTHOR AUTHOR'S ORGANIZ ATION 03/06/2022 [facility] ([place]) Care Team (unrecognized sect ion and content) Care Team Personnel Name: GENTRY WILSON MD Member Role: Primary Care Physician Address: Address: [facility] [place] [address]- Care Team Related Persons Name: ILIR HERNÁNDEZ Address: Home [address] [place] [id number] Care Team Personnel Name: GENTRY WILSON MD Member Role: Primary Care Physician Address: Address: [facility] [place] [address]- Care Team Related Persons Name: JOHNRADHAILIR Address: [address] [address] FOR RECORDS PERTAINING TO PATIENTS WHO ARE [...] BE BASED ON THE PRIMARY CLINICAL RECORDS. [facility]. provides no warranty or guarantee of the accuracy or completeness of information in this document.
--- NOTE | 2023-03-02 07:38 | PN.ORTHO_ITS ---
Subjective Subjective Seen and examined postop day 1. Lying in bed resting comfortably. Pain controlled. No complaints Objective Data Objective Data Vital Signs: Vital Signs Temp Pulse Resp BP Pulse Ox O2 Del Method O2 Flow Rate 98.8 F 83 16 115/55 L 93 Nasal Cannula 2 03/02/23 04:00 03/02/23 04:00 03/02/23 04:00 03/02/23 04:00 03/02/23 04:00 03/02/23 04:00 03/02/23 04:00 FiO2 98 03/01/23 20:34 Oxygen Flow Rate (L/min) 2 Oxygen Delivery Method Nasal Cannula Weight: 235 lb 14.314 oz Body Mass Index (BMI) 36.9 Intake & Output: Intake and Output for Last 24 Hours 02/28/23 03/01/23 03/02/23 23:59 23:59 23:59 Intake Total 2821.67 / 2821.67 790 / 790 Output Total 700 / 700 530 / 530 Balance 2121.67 / 2121.67 260 / 260 Lab / Micro Data 02/05/23 09:09 02/05/23 09:09 Physical Exam Const alert, oriented x3 and no apparent distress General Appearance: cooperative, comfortable and well kempt Neck full ROM General: normal visual inspection Chest inspection of chest normal and palpation of chest normal Resp normal respiratory effort and normal air movement Effort and Inspection: able to speak in complete sentences Cardio regular rate and peripheral pulses 2+ throughout GI soft to palpation, non-tender and non-distended Back/Spine Back/Spine Narrative: Dressing clean dry and intact. Drain pulled Cervical Spine: cervical ROM normal Thoracic Spine / Upper Back: normal to inspection Lumbar Spine / Lower Back: normal to inspection Extremity normal to inspection, full ROM, normal capillary refill, no clubbing, cyanosis or edema and no calf tenderness Skin no rashes or lesions noted General Skin Exam: no breakdown Neuro oriented x3, CN's II-XII intact bilaterally, moves all extremities, no focal motor deficits, no sensory deficits noted and deep tendon reflexes 2+ bilat erally Motor Exam: strength 5/5 throughout and muscle tone normal throughout Assessment & Plan Assessment/Plan (1) Lumbar stenosis: PLAN: The patient is doing very well. Her pain is controlled and she has been o ut of bed with physical therapy and took a few steps. Continue pain control and mobilization as tolerated. Okay to discharge home when patient is mobilizing well enough and arrangements are made. Follow-up with Dr. Lopez clinic as scheduled
[2023-03-02 08:10] VITALS: BP 106/45; PULSE 85; RESP 18; TEMP 36.7; O2SAT 97
[2023-03-02 08:17] VITALS: O2SAT 97
[2023-03-02] MEDS: Potassium Chloride Oral Tablet 20 MEQ PO (09:59)
[2023-03-02] MEDS: Tolterodine Tartrate 2 MG CAP.SA PO (09:59)
[2023-03-02] MEDS: Venlafaxine XR 37.5 MG Capsule PO (09:59)
[2023-03-02] MEDS: Furosemide 40 MG Tablet PO (09:59)
--- NOTE | 2023-03-02 10:45 | CASEMGMT ---
NEHEMIAH DICKSON Discharge Planning Assessment: Face to Face with patient for initial transition planning/care coordination assessment.?NEHEMIAH DICKSON introduced self and role at [facility], pt alert, Ox4, voices understanding and is agreeable to participating in assessment with friend at bedside.? Care providers, pharmacy,?and demographics verified. Admitting dx: lumbar stenosis LACE strata: 2 PCP: Luis Alberto Specialists: Sally (ortho), Arnaldo (pulmonology) Preferred Pharmacy: [facility] Insurance: [facility] A/B, [facility] Prescription Benefit:?yes LNOK: spouse Ilir Living Arrangements: Pt lives with her spouse in a single story homeo with 3 steps w/handrail to enter. Pt states she has been independent with all ADLs and IADLs. States her spouse will be able to assist her if needed. Transportation: pt drives and her spouse can assists if needed DME: has grab bars, shower chair, has not used a walker previously but has one (present in pt's room), CPAP from [facility] with O2 bled in at 1l/min SNF: no previous HHC: yes, cannot recall name of provider but was from [place] ? Plan: return home w/support of her spouse. Pt denies any DC needs at this time. Efe Morse RN ACM
--- NOTE | 2023-03-02 11:16 | CASEMGMT ---
Met with pt to complete PEÑA form. PEÑA form explained to pt who voiced understanding and signed form. Original form placed in pt?s chart and copy provided to pt. Miguelangel Julio RN CM
[2023-03-02 14:57] VITALS: BP 135/54; PULSE 88; RESP 18; TEMP 36.8; O2SAT 93
[2023-03-02 21:21] VITALS: BP 126/68; PULSE 96; RESP 18; TEMP 36.6; O2SAT 95
[2023-03-02] MEDS: Atorvastatin Calcium 10 MG Tablet 5 MG PO (21:33)
[2023-03-02] MEDS: Losartan Potassium 100 MG Tablet PO (21:33)
[2023-03-03 04:28] VITALS: BP 128/66; PULSE 94; RESP 18; TEMP 37.6; O2SAT 96
[2023-03-03] MEDS: Acetaminophen 500 MG Tablet 1000 MG PO ×3 (04:36→22:02)
[2023-03-03] MEDS: oxyCODONE 5 MG Tablet PO ×4 (04:36→22:01)
[2023-03-03 07:41] VITALS: O2SAT 92
[2023-03-03 08:30] VITALS: BP 119/62; PULSE 83; RESP 16; TEMP 36.8; O2SAT 92
[2023-03-03] MEDS: Furosemide 40 MG Tablet PO ×2 (08:46→18:07)
[2023-03-03] MEDS: Venlafaxine XR 37.5 MG Capsule PO ×2 (08:46→10:48)
[2023-03-03] MEDS: Tolterodine Tartrate 2 MG CAP.SA PO (08:46)
[2023-03-03] MEDS: Potassium Chloride Oral Tablet 20 MEQ PO (10:50)
--- NOTE | 2023-03-03 11:35 | NURSING ---
DR BENJAMIN CALLED TO CHECK ON STATUS OF PT. PT HAVING SOME NAUSEA, HELPED W/DIET COKE AND LAYS CHIPS, AND SOME LIGHTHEADEDNESS.
[2023-03-03 14:00] VITALS: BP 135/68; PULSE 85; RESP 16; TEMP 36.6; O2SAT 96
--- NOTE | 2023-03-03 15:22 | NURSING ---
PT C/O NAUSEA AND H/A AGAIN, 10/12. PAGED DR BENJAMIN, PHONE WENT TO . LEFT BRIEF MSG TO CALL THIS NURSE BACK. COMMUNICATION SENT TO DR Caio GOMEZ TO CALL THIS NURSE BACK.
--- NOTE | 2023-03-03 15:39 | NURSING ---
CONTACTED DR BENJAMIN W/2ND PAGE. UPDATED ON PT STATUS AND NEW ORDERS RECEIVED.
[2023-03-03] MEDS: Ondansetron 8 MG Tablet PO (18:07)
[2023-03-03 18:08] VITALS: TEMP 36.7
[2023-03-03 21:57] VITALS: BP 137/60; PULSE 81; RESP 18; TEMP 37.4; O2SAT 94
[2023-03-03] MEDS: Losartan Potassium 100 MG Tablet PO (22:02)
[2023-03-03] MEDS: Atorvastatin Calcium 10 MG Tablet 5 MG PO (22:02)
[2023-03-04 05:19] VITALS: BP 130/75; PULSE 76; RESP 18; TEMP 36.4; O2SAT 96
[2023-03-04] MEDS: oxyCODONE 5 MG Tablet PO ×2 (05:24→11:48)
[2023-03-04] MEDS: Acetaminophen 500 MG Tablet 1000 MG PO ×2 (05:25→14:34)
[2023-03-04 06:27] LABS: Absolute Neutrophil Count 6.6 X10^3/uL (2.0-7.7); Basophil# 0.02 X10^3/uL; Basophil% 0.2 % (0-1); Eosinophil# 0.28 X10^3/uL; Eosinophils% 2.6 % (0-5); Hematocrit 38.1 % (37-47); Hemoglobin 12.3 g/dL (12.0-15.0); Lymphocyte % 23.5 % (19-41); Mean Corp Hgb Conc 32.3 g/dL (32-36); Mean Corpuscular Hgb 30.9 pg (27.0-32.0); Mean Corpuscular Volume 95.7 fL (81-99); Mean Platelet Vol. 10.2 fl (6.2-12.0); Monocyte# 1.18 X10^3/uL; Monocyte% 11.1 % (0-10); NRBC Flagged by Analyzer 0 % (0-5); Neutrophil # 6.64 X10^3/uL (2.7-7.7); Neutrophil % 62.3 % (47-70); Platelet Count 300 K/mm3 (150-450); RBC Distribution Width CV 12.9 % (11.6-14.6); RBC Distribution Width SD 45.7 fl (35.1-43.9); Red Blood Count 3.98 M/mm3 (4.2-5.4); White Blood Count 10.7 K/mm3 (4.4-11.0)
[2023-03-04 06:47] LABS: Anion Gap 4 (5-15); BUN 10 mg/dL (7-18); BUN/Creat Ratio 14.1 RATIO (10-20); Calcium,Total 8.4 mg/dL (8.5-10.1); Chloride 103 mmol/L (98-107); Creatinine, Serum 0.71 mg/dL (0.55-1.02); EST Glomerular Filtration Rate 86 mL/min (>60); Est Glom Filt Rate - Afr Amer 104 mL/min (>60); Estimated Creatinine Clearance 48.72 ml/min; Glucose 140 mg/dL (74-106); Potassium 3.5 mmol/L (3.5-5.1); Sodium Level 135 mmol/L (136-145)
[2023-03-04] MEDS: Potassium Chloride Oral Tablet 20 MEQ PO (09:18)
[2023-03-04] MEDS: Tolterodine Tartrate 2 MG CAP.SA PO (09:18)
[2023-03-04] MEDS: Furosemide 40 MG Tablet PO (09:18)
[2023-03-04 10:00] VITALS: BP 119/61; PULSE 85; RESP 16; TEMP 36.7; O2SAT 95
[2023-03-04 11:30] VITALS: O2SAT 95
[2023-03-04] MEDS: Ondansetron 8 MG Tablet PO (11:48)
--- NOTE | 2023-03-04 13:19 | NURSING ---
DR BENJAMIN CALLED W/UPDATE. ORDERS RECEIVED FOR DC, PT AWARE
[2023-03-04 15:00] VITALS: BP 149/71; PULSE 86; RESP 16; TEMP 37.1; O2SAT 97
== END 2023-03-04 15:05 | disposition home or self-care (01) ==
LOC: SDC 03-02 07:14 → MS3 03-02 07:14
PROVIDERS: Internal Medicine; Admitting Provider Orthopaedic Surgery; PCP Internal Medicine; Referring Provider Orthopaedic Surgery; Visit Provider Orthopaedic Surgery
PROC: 0SG00AJ Fusion of Lumbar Vertebral Joint with Interbody Fusion Device, Posterior Approach, Anterior Column, Open Approach (ICD-10-PCS; CPT 22630; principal; 2023-03-01 09:50)
DX: M48.061 Spinal stenosis, lumbar region without neurogenic claudication (principal); M46.98 Unspecified inflammatory spondylopathy, sacral and sacrococcygeal region; M32.9 Systemic lupus erythematosus, unspecified; F39 Unspecified mood [affective] disorder; M51.36 Other intervertebral disc degeneration, lumbar region; M47.26 Other spondylosis with radiculopathy, lumbar region; Z79.899 Other long term (current) drug therapy; M79.7 Fibromyalgia; I10 Essential (primary) hypertension; E78.5 Hyperlipidemia, unspecified; G47.30 Sleep apnea, unspecified; Z86.16 Personal history of COVID-19; Z86.718 Personal history of other venous thrombosis and embolism; M43.16 Spondylolisthesis, lumbar region; E66.8 Other obesity; Z68.38 Body mass index [BMI] 38.0-38.9, adult; F41.9 Anxiety disorder, unspecified; F32.A Depression, unspecified
CPT/HCPCS: 22633; 63052; 22853; 20930; 20936; 22842; 00670; 36415; 71046; 72100; 76000; 80048; 85025; 85610; 85730; 93005; 94668; 94762; 96361; 96365; 96366; 96375; 97162; 97530; 99221; C1713; J7120; G0378; J2405

== ENCOUNTER → 2023-05-03 | Outpatient (CLI) | payer MEDICARE, OTHER, SELFPAY ==
[2023-05-03 16:38] LABS: Mucous, Urine 0 SEEN /hpf (<or=2+)
[2023-05-03 17:04] LABS: Color, Urine Yellow (Yellow); Glucose, Dipstick Normal (Normal); Ketone-Dipstick 5 mg/dl (Negative); Leukocyte Esterase-Dipstick 100 /ul (Negative); Nitrite-Dipstick Negative (Negative); Occult Blood-Urine 10 /ul (Negative); Protein-Dipstick 15 mg/dl (Negative); Specific Gravity, Urine 1.025 (1.002-1.030); Urine Bilirubin Dipstick Negative (Negative); Urine Clarity Sl. Cloudy (Clear); Urine Urobilinogen Normal (Normal)
[2023-05-03 17:29] LABS: Red Blood Cells-Urine 0-5 SEEN /hpf (0-5); Squamous Epithelial Cells - UA 0-5 SEEN /hpf (5-10); White Blood Cells 0-5 SEEN /hpf (0-5)
[2023-05-03 17:30] LABS: Bacteria RARE /hpf (None Seen)
--- OUTSIDE RECORDS SUMMARY | 2023-05-03 22:44 | XMS RPT_ITS | CCD ---
Author Name Unknown Address [email or web address] [place] [address] Organization [facility] Care Team Providers Care Sales Intern Name Role Phone Alex Martinez Unavailable Unavailable [...] [codeine] Drug Allergy ringing in ears, rash [facility] (2 sources) Penicillin; Translations: [penicillins] Drug Allergy rash [facility] Medications Current Medications Medication Drug Class(es) Dates Sig (Normalized) Sig (Original) acetaminophen 325 mg / HYDROcodone bitartrate 5 mg oral tablet (2 sources) Opioid Agonist Start: 02-08-2022 End: 02-15-2022 take 1 tablet by mouth every six hours as needed for pain [place] 325- 5 mg oral tablet Dose = 1 tab(s), Oral, q6h, PRN for pain, X 7 day(s), # 28 tab(s), 0 Refill(s), Pharmacy: [id number], Cervical spondylosis, 170.2, cm, 02/08/22 [...] For Taking VItal Signs JERMAN BENJAMIN DO [facility] 02-09-2022 11:58-0500 Body temperature 97.52 [degF] JERMAN BENJAMIN DO [facility] 02-09-2022 11:58-0500 Diastolic Blood Pressure Non-Invasive 85 1 JERMAN BENJAMIN DO [facility] 02-09-2022 11:58-0500 Heart rate 92 /min JERMAN BENJAMIN DO [facility] 02-09-2022 11:58-0500 Reason For Taking VItal Signs JERMAN BENJAMIN DO [facility] 02-09-2022 11:58-0500 Respiratory rate 16 /min JERMAN BENJAMIN DO [facility] 02-09-2022 11:58-0500 Systolic Blood Pressure Non-Invasive 151 1 JERMAN BENJAMIN DO [facility] 02-09-2022 09:27-0500 Heart rate 88 /min JERMAN BENJAMIN DO [facility] 02-09-2022 09:27-0500 Respiratory rate 16 /min JERMAN BENJAMIN DO [facility] 02-09-2022 09:24-0500 Body temperature 98.24 [degF] JERMAN BENJAMIN DO [facility] 02-09-2022 09:24-0500 Diastolic Blood Pressure Non-Invasive 94 1 JERMAN BENJAMIN DO [facility] 02-09-2022 09:24-0500 Heart rate 99 /min JERMAN BENJAMIN DO [facility] 02-09-2022 09:24-0500 Reason For Taking VItal Signs JERMAN BENJAMIN DO [facility] 02-09-2022 09:24-0500 Respiratory rate 16 /min JERMAN BENJAMIN DO [facility] 02-09-2022 09:24-0500 Systolic Blood Pressure Non-Invasive 180 1 JERMAN BENJAMIN DO [facility] 02-09-2022 08:50-0500 Heart rate 92 /min JERMAN BENJAMIN DO [facility] 02-09-2022 03:41-0500 Body temperature 98.24 [degF] JERMAN BENJAMIN DO [facility] 02-09-2022 03:41-0500 Diastolic Blood Pressure Non-Invasive 80 1 JERMAN BENJAMIN DO [facility] 02-09-2022 03:41-0500 Heart rate 99 /min JERMAN BENJAMIN DO [facility] 02-09-2022 03:41-0500 Systolic Blood Pressure Non-Invasive 139 1 JERMAN BENJAMIN DO [facility] 02-08-2022 14:00-0500 Body weight 48.5 kg/m2 JERMAN BENJAMIN DO [facility] 02-08-2022 12:05-0500 Body temperature 96.98 [degF] JERMAN BENJAMIN DO [facility] 02-08-2022 11:55-0500 Respiratory Rate - Anes 14 br/min JERMAN BENJAMIN DO [facility] 02-08-2022 11:50-0500 Respiratory Rate - Anes 2 br/min JERMAN BENJAMIN DO [facility] 02-08-2022 11:45-0500 Body temperature 97.23 [degF] JERMAN BENJAMIN DO [facility] 02-08-2022 11:45-0500 Respiratory Rate - Anes 3 br/min JERMAN BENJAMIN DO [facility] 02-08-2022 11:40-0500 Body temperature 97.09 [degF] JERMAN BENJAMIN DO [facility] 02-08-2022 11:35-0500 Body temperature 96.98 [degF] JERMAN BENJAMIN DO [facility] 02-08-2022 08:46-0500 Blood Pressure Location JERMAN BENJAMIN DO [facility] 02-08-2022 08:46-0500 Blood Pressure Method JERMAN BENJAMIN DO [facility] 02-08-2022 08:46-0500 Body height 170.2 cm JERMAN BENJAMIN DO [facility] 02-08-2022 08:46-0500 Body temperature 97.7 [degF] JERMAN BENJAMIN DO [facility] 02-08-2022 08:46-0500 Body weight 140.5 kg JERMAN BENJAMIN DO [facility] 02-08-2022 08:46-0500 Heart rate 89 /min JERMAN BENJAMIN DO [facility] 01-25-2022 13:10-0500 Body height 170.2 cm JERMAN BENJAMIN DO [facility] 01-25-2022 13:10-0500 Body weight 104.5 kg JERMAN BENJAMIN DO [facility] 01-25-2022 13:10-0500 Body weight 36.07 kg/m2 JERMAN BENJAMIN DO [facility] 01-25-2022 13:10-0500 diastolic 80 mm[Hg] JERMAN BENJAMIN DO [facility] 01-25-2022 13:10-0500 Heart rate 91 /min JERMAN BENJAMIN DO [facility] 01-25-2022 13:10-0500 Respiratory rate 20 /min JERMAN BENJAMIN DO [facility] 01-25-2022 13:10-0500 systolic 124 mm[Hg] JERMAN BENJAMIN DO [facility] Encounters Encounter Date Encounter Type Care Provider Facility Start: 02-08-2022 End: 02-09-[address] GENTRY WILSON MD. Facility:B Start: 02-08-2022 End: 12-08-2022 Observation JERMAN BENJAMIN DO [facility] Start: 01-25-2022 End: 01-26-[address] GENTRY WILSON MD. Facility:B Start: 01-25-2022 End: 01-25-2022 Admission to establishment JERMAN BENJAMIN DO [facility] Start: 09-21-2017 Patient encounter [facility] Procedures Date Procedure Procedure Detail Performing Clinician Start: 02-08-2022 Cervical arthrodesis by anterior technique JERMAN BENJAMIN DO Immunizations Immunization Date Immunization Notes Care Provider Sigifredo flower 08-05-2021 SARS-CoV-2 (COVID-19 ) mRNA-1273 vaccine JERMAN BENJAMIN DO [facility] 02-22-2021 SARS-CoV-2 (COVID-19 ) mRNA-1273 vaccine JERMAN BENJAMIN DO [facility] 11-15-2020 influenza virus vaccine, unspecified formulation JERMAN BENJAMIN DO [facility] 07-08-2020 SARS-CoV-2 (COVID-19 ) mRNA-1273 vaccine JERMAN BENJAMIN DO [facility] Payers Date Payer Category Payer Medicare [id number] 2022 Unknown [id number] 1950 Unknown [id number] 1950 Unknown [id number] Medicare Social History Date Type Detail Facility Start: 01-25-2022 Tobacco smoking status Never s moked tobacco (finding) [facility] Sex Assigned At Female [facility] Functional Status Date Assessment Result Facility 02-09-2022 Functional Status Room check performed [facility] 02-09-2022 Functional Status [facility] 02-08-2022 Functional Status Min A [facility] 02-08-2022 Functional Status [facility] 02-08-2022 Functional Status ice on [facility] 02-08-2022 Functional Status Maintained [facility] 01-25-2022 Functional Status Sensory Deficits None A [facility] Mental Status Date Assessment Result Facility 02-09-2022 Mental Status Orientation Asse ssment Oriented x 4 [facility] 02-09-2022 Mental Status Orientation Oriented x 4 [facility] 02-08-2022 Mental Status [facility] Clinical Note 02-09-2022 Note Date & [...] by AISHWARYA CONTRERAS on 02/09/2022 06:13 PM [facility] Discharge instructions 02-09-2022 Note Date & [...] and water are not available, use hand manager of compliance. ?Change your dressing as told by your [...] smell. Managing pain, stiffness, and swelling Take ygmj-fqv-dcwpsjo and prescription medicines only as told by [...] to keep your urine pale yellow. ?Take sjmy-rjj-gysnpvf or prescription medicines. ?Eat foods that are [...] 03/17/2016 Document Revised: 11/14/2018 Document Reviewed: 11/14/2018 [employer] Patient Education 2020 [employer] Follow Up Care 01/11/2022 10:45:19 With:JERMAN BENJAMIN DO, Orthopedic Address: [address] [place] [address], [address] [facility] [place] [address]- [phone] When: Unknown [facility] Clinical Note 02-09-2022 Note Date & Type Note Facility 02-09-2022 Note Discharge Instructions Thank you for allowing [facility] to assist you with your healthcare needs. [...] not take any medications, herbal, prescription, or hkzw-pxn-itmbbft unless prescribed for the next 12 weeks Remember to take your pain medication and/or muscle relaxants as ordered to keep your pain under control No NSAIDs for 3 months, will interfere with the fusion. Swelling around the nerves can cause continued numbness and tingling for days or weeks after surgery Follow Up Appointments Follow Up with JERMAN BENJAMIN DO, Orthopedic When Where: [facility], [address] [facility] [place] [address]- [phone] The Following Activity and Diet Have Been [...] When Why Instructions Last Dose Changed acetaminophen-hydrocodone ([place] 325- 5 mg oral tablet) 1 tab(s) by mouth Every 6 hours as needed for for pain Cervical spondylosis Duration: 7 Days Pickup at [facility] Unchanged amLODIPine (amLODIPine 5 mg oral [...] Two (2) times a day Pharmacy Information [facility]: [address] [place], [place] [id number] [phone] Please take this list to your next [...] and water are not available, use hand manager of compliance. ? Change your dressing as told by [...] smell. Managing pain, stiffness, and swelling Take ijex-wtk-ujmcjrp and prescription medicines only as told by [...] keep your urine pale yellow. ? Take fidw-fwt-akvqbbv or prescription medicines. ? Eat foods that [...] 03/17/2016 Document Revised: 11/14/2018 Document Reviewed: 11/14/2018 [employer] Patient Education 2020 [employer] Additional Information VACCINATE! IT SAVES LIVES! Members of the community who have not yet received the COVID-19 vaccine and would like to receive it can visit one of [facility] vaccine clinics. There are many vaccine clinic locations within the [facility]. For locations and available times, please visit [email or web address] It is important to note that some COVID mobile vaccine clinics are held outdoors and may be canceled in rainy or stormy conditions. To learn more about pediatric vaccinations (ages 5-11), we invite you to visit the [facility] webpage. [email or web address] To learn more about the COVID-19 vaccine, we invite you to visit the [employer] website for a list of frequently asked questions. [email or web address] [facility] Patient Portal Access Instructions: Stay connected with your healthcare team and access your personal medical information anytime with the [facility] Patient Portal.If you would like a full copy of your medical records, please contact the [facility] Medical Records Department, Sunday through Sunday between 8a.m. and 4:30p.m. Please follow the directions below to access the portal: 1.Access the email account you provided upon registration to the hospital.2.Look for an invitation email from [facility].3.Open the email and access the invitation link: Accept Invitation to [facility].Fill in the required palacios to create your account. Sign into [email or web address] with your username and password that you [...] you will allow to register on the [facility] Patient Portal for access to your information. You can also access the [facility] Patient Portal on the [employer] angel. Simply click on Health Records under Health Data and then click on the [employer] logo. HOW TO SAFELY DISPOSE OF PRESCRIPTION [...] Call your local pharmacy or go to [email or web address] to find one close to you.3.Make use of household items: Use cat litter or old coffee grounds to dispose medications if other options are not available. Mix your drugs with these household products, seal them in an airtight container and throw it into the garbage. Call [facility]: [phone] to be sure your drugs can be [...] aware that I should contact my doctor. Patient/Aids Nurse Signature: _ Date/Time: Relationship to Patient: Witness Name/Signature: Date/Time: [facility] Clinical Note 02-08-2022 Note Date & Type Note Facility 02-08-2022 Note ORIGINAL Images acquired, not reported on this accession number. [facility] Clinical Note 02-08-2022 Note Date & Type Note Facility 02-08-2022 Note ORIGINAL Images acquired, not reported on this accession number. [facility] Anesthesiology Consult note 02-08-2022 Note Date & [...] or recorded. Procedure history: Arthroscopy of knee ([id number]). Comments: 01/25/2022 13:50 Tita Enriquez RN Right Tonsillectomy ([id number]). Open wound of left lower leg due to animal bite ([id number]). History of partial thyroidectomy ([id number]). section ([id number]). Comments: 01/25/2022 13:50 Tita Enriquez RN x2 ORIF - Open reduction of fracture of ankle with internal fixation ([id number]). Comments: 01/25/2022 13:50 Tita Enriquez RN Right Social History Social & Psychosocial Habits Alcohol 01/25/2022 Use: Never Substance Abuse 01/25/2022 Use: Never Tobacco 01/25/2022 Tobacco Use: Never (less than 100 in l Home/Environment 01/25/2022 Domestic Concerns None Living situation: Home/Independent Primary Tube Worker: Self Current Home Treatments CPAP Special Services [...] 1 SN - CAt - Role Performed Strip Picker 1 SN - CAt - Role Performed Mathematical Physicist 1 SN - CAt - Role Performed OXYHYDROGEN WELDER SN - CAt - Role Performed Contracts Paralegal SN - CAt - Role Performed Product Advisor SN - CAt - Role Performed Contracts Paralegal 02/08/2022 8:46 EST Temperature Temporal Artery 36.5 [...] Patient Instructions Documentation . Assessment and Plan [place] [employer] of Anesthesiologists (ASA) physical status classification: Class III. Anesthetic Preoperative Plan Anesthetic technique: General. Maintenance airway: Oral endotracheal tube. Postoperative pain management: Per surgeon. Risks discussed: nausea, vomiting, sore throat, hypotension, allergic reaction, serious complications. Informed consent: signed by patient. Digitally Signed by LONA OSBORNE on 02/08/2022 08:50 AM [facility] Clinical Note 02-08-2022 Note Date & Type [...] JERMAN BENJAMIN DO on 02/08/2022 12:04 PM [facility] Evaluation + Plan note Note Date & Type Note Facility Evaluation + Plan note Future Appointments [facility] Hospital course Narrative Note Date & Type Note Facility Hospital course Narrative No data available for this section [facility] Hospital Discharge instructions Note Date & Type Note Facility Hospital Discharge instructions No data available for this section [facility] Summary Purpose Family History No Family History Records FoundNo Family History Records FoundNo Family History Records FoundNo Family History Records Found Advance Directives No Advanced Directives Records FoundNo Advanced Directives Records FoundNo Advanced Directives Records FoundNo Advanced Directives Records Found Additional Source Comments INFORMATION SOURCE (unrecogn ized section and content) DATE CREATED AUTHOR AUTHOR'S ORGANIZ ATION 08/13/2018 [facility] DATE CREATED AUTHOR AUTHOR'S ORGANIZ ATION 12/05/2021 [facility] DATE CREATED AUTHOR AUTHOR'S ORGANIZ ATION 03/06/2022 [facility] ([place]) Care Team (unrecognized sect ion and content) Care Team Personnel Name: GENTRY WILSON MD Member Role: Primary Care Physician Address: Address: [facility] [place] [address]- Care Team Related Persons Name: ILIR HERNÁNDEZ Address: Home [address] [place] [id number] Care Team Personnel Name: GENTRY WILSON MD Member Role: Primary Care Physician Address: Address: [facility] [place] [address]- Care Team Related Persons Name: JOHNRADHAILIR Address: [address] [address] FOR RECORDS PERTAINING TO PATIENTS WHO ARE [...] THE PRIMARY CLINICAL RECORDS. [facility] [employer] [facility]. provides no warranty or guarantee of the accuracy or completeness of information in this document.
== END | disposition home or self-care (01) ==
LOC: LABSPEC 16:37
PROVIDERS: PCP Internal Medicine; Visit Provider Internal Medicine
DX: N32.81 Overactive bladder (principal); R35.0 Frequency of micturition
CPT/HCPCS: 81001; 87086; 87088

== ENCOUNTER → 2023-05-29 | Outpatient (CLI) | payer MEDICARE, OTHER, SELFPAY | END | disposition home or self-care (01) | LOC: SL 19:53 | PROVIDERS: PCP Internal Medicine; Referring Provider Nurse Practitioner Acute Care; Visit Provider Nurse Practitioner Acute Care | DX: G47.33 Obstructive sleep apnea (adult) (pediatric) (principal) | CPT/HCPCS: 95811 ==

== ENCOUNTER → 2023-06-22 | Outpatient (CLI) | payer MEDICARE, OTHER, SELFPAY | END | disposition home or self-care (01) | LOC: SL 08:46 | PROVIDERS: PCP Internal Medicine; Visit Provider Nurse Practitioner Acute Care | DX: R69 Illness, unspecified (principal) ==

== ENCOUNTER → 2023-07-23 | Outpatient (CLI) | payer MEDICARE, OTHER, SELFPAY ==
--- NOTE | 2023-07-23 10:34 | RAD_ITS ---
STUDY: X-RAY - CERVICAL SPINE REASON FOR EXAM: Female, 73 years old. Myelopathy. History of cervical surgery. TECHNIQUE: 4 view(s) of the cervical spine were obtained. COMPARISON: None FINDINGS: Osteopenia. Normal anterior atlantoaxial articulation. Normal odontoid process. Slight reversal of the normal lordotic curve, likely positional. Diffuse moderate uncovertebral and facet sclerosis. 3 mm of anterolisthesis of C4 on C5. Anterior fusion of C5-C7 with intervertebral disc prostheses with no complicating features identified. Normal soft tissues. RAD/Cerv Spine 2 or 3 Views IMPRESSION: Osteopenia with cervical spondylosis and posterior fusion changes from C5 to C7 with no complicating features. Electronically Signed: Rommel Morelos MD at 12:46 EDT ,
== END | disposition home or self-care (01) ==
LOC: RAD 10:33
PROVIDERS: PCP Internal Medicine; Referring Provider Anesthesiology Pain Medicine; Visit Provider Anesthesiology Pain Medicine
DX: M47.12 Other spondylosis with myelopathy, cervical region (principal)
CPT/HCPCS: 72040

== ENCOUNTER → 2023-08-15 | Outpatient (CLI) | payer MEDICARE, OTHER, SELFPAY ==
--- NOTE | 2023-08-15 08:35 | RAD_ITS ---
STUDY: X-RAY - LEFT SHOULDER REASON FOR EXAM: Female, 73 years old. Left Shoulder pain TECHNIQUE: 4 view(s) of the shoulder. COMPARISON: None. FINDINGS: Normal glenohumeral articulation. There is hypertrophic osteoarthrosis of the acromioclavicular joint with inferior osseous spur formation. Normal acromion. Normal humeral head and visualized proximal humerus. The soft tissue structures are unremarkable. Normal visualized pulmonary apex. RAD/Shoulder min 2 Views IMPRESSION: Hypertrophic osteoarthritis of the acromioclavicular joint Electronically Signed: Billy Mathew MD at 15:51 EDT ,
== END | disposition home or self-care (01) ==
LOC: RAD 08:35
PROVIDERS: PCP Internal Medicine; Referring Provider Internal Medicine; Visit Provider Internal Medicine
DX: M25.512 Pain in left shoulder (principal)
CPT/HCPCS: 73030

== ENCOUNTER → 2023-08-28 | Outpatient (CLI) | payer MEDICARE, OTHER, SELFPAY ==
--- NOTE | 2023-08-28 16:57 | RAD_ITS ---
STUDY: X-RAY - ABDOMEN/PELVIS REASON FOR EXAM: Female, 73 years old. CONSTIPATION TECHNIQUE: AP supine and upright views of the abdomen and pelvis. COMPARISON: None. FINDINGS: Normal visualized lung bases. There is an unremarkable bowel gas pattern. There is moderate stool. There is no demonstrated free abdominal air. Normal soft tissue structures. There is lumbar levoscoliosis with degenerative and postoperative change. There is anterior and posterior fusion at L4-5 with hardware. RAD/Abdomen Single View IMPRESSION: Moderate stool. Electronically Signed: Colin Arguelles MD at 18:06 EDT ,
== END | disposition home or self-care (01) ==
LOC: MTRAD 16:29
PROVIDERS: PCP Internal Medicine; Referring Provider Internal Medicine Gastroenterology; Visit Provider Internal Medicine Gastroenterology
DX: K59.00 Constipation, unspecified (principal); R10.9 Unspecified abdominal pain
CPT/HCPCS: 74018

== ENCOUNTER → 2023-12-11 | Outpatient (CLI) | payer MEDICARE, OTHER, SELFPAY ==
--- NOTE | 2023-12-11 13:50 | ECHOD_ITS ---
Reason For Study: CAD Procedure This was a 2D Doppler, Color Flow transthoracic echocardiogram. Exam performed in department. Left Ventricle Mild concentric left ventricular hypertrophy. Normal LV size. The left ventricular ejection fraction is 55 %. Septal motion consistent with bundle branch block. Normal diastology for age. Right Ventricle Normal right ventricle. Atria The left and right atria are normal. Mitral Valve Trivial mitral valve insufficiency. Tricuspid Valve Trivial tricuspid valve insufficiency. Normal pulmonary artery pressure. Aortic Valve Trisinus/trileaflet aortic valve. Pulmonic Valve The pulmonic valve is not well visualized. Great Vessels Normal sized aortic root. Pericardium/Pleural No pericardial effusion. MMode/2D Measurements & Calculations LVIDd: 4.2 cm IVSd: 1.2 cm Ao root diam: 3.6 cm LVIDs: 2.9 cm LVPWd: 1.2 cm RVDd: 3.2 cm FS: 30.6 % LAV(MOD-bp): 34.4 ml LVAd ap4: 24.0 cm2 LVAd ap2: 19.9 cm2 LAV(MOD-bp) Indexed: 15.7 ml/m2 LVLd ap4: 7.7 cm LVLd ap2: 7.6 cm LAV(MOD-sp2): 32.8 ml EDV(MOD-sp4): 63.7 ml EDV(MOD-sp2): 45.8 ml LAV(MOD-sp4): 35.9 ml EDV(sp4-el): 63.3 ml EDV(sp2-el): 44.6 ml LVAs ap4: 14.8 cm2 LVAs ap2: 12.0 cm2 LVLs ap4: 6.9 cm LVLs ap2: 6.6 cm ESV(MOD-sp4): 28.4 ml ESV(MOD-sp2): 19.3 ml ESV(sp4-el): 27.1 ml ESV(sp2-el): 18.5 ml EF(MOD-sp4): 55.5 % EF(MOD-sp2): 57.8 % EF(sp4-el): 57.2 % SV(MOD-sp4): 35.3 ml SV(MOD-sp2): 26.5 ml SV(sp4-el): 36.2 ml LA dimension(2D): 3.8 cm LA A4 area: 14.8 cm2 RA A4 area: 13.4 cm2 TAPSE: 1.8 cm Time Measurements MV dec time: 0.21 sec Doppler Measurements & Calculations MV E max osei: 80.3 cm/sec Lat Peak E' Osei: 8.5 cm/sec Med Peak E' Osei: 5.8 cm/sec MV A max osei: 88.9 cm/sec E/E' lat: 9.4 E/E' med: 13.9 MV E/A: 0.90 MV dec slope: 389.9 cm/sec2 Ao V2 max: 128.4 cm/sec LV V1 max: 98.8 cm/sec Ao max P.6 mmHg LV V1 max P.9 mmHg Ao V2 mean: 87.6 cm/sec LV V1 mean P.9 mmHg Ao mean P.5 mmHg LV V1 mean: 62.6 cm/sec Ao V2 VTI: 26.7 cm LV V1 VTI: 23.6 cm AV (velocity ratio): 0.89 PA V2 max: 94.8 cm/sec TR max osei: 264.3 cm/sec TR max P.9 mmHg ECHO/Echo Complete Interpretation Summary Mild concentric left ventricular hypertrophy. The left ventricular ejection fraction is 55 %. Ordering Physician: Laura Carpio Referring Physician: Selena Sahu Performed By: Marcella Ellis RDCS
== END | disposition home or self-care (01) ==
LOC: CVS 13:49
PROVIDERS: PCP Internal Medicine; Referring Provider Internal Medicine Cardiovascular Disease; Visit Provider Internal Medicine Cardiovascular Disease
DX: I25.10 Atherosclerotic heart disease of native coronary artery without angina pectoris (principal)
CPT/HCPCS: 93306

== ENCOUNTER → 2024-01-21 | Outpatient (CLI) | payer MEDICARE, OTHER, SELFPAY ==
[2024-01-21 12:53] LABS: Absolute Lymphocyte Count 2.13 X10^3/uL (0.83-4.51); Basophil# 0.02 X10^3/uL; Basophil% 0.3 % (0-1); Eosinophils% 1.3 % (0-5); Hematocrit 42.5 % (37-47); Hemoglobin 14.3 g/dL (12.0-15.0); Lymphocyte # 2.13 X10^3/ul (0.83-4.51); Lymphocyte % 26.9 % (19-41); Mean Corp Hgb Conc 33.6 g/dL (32-36); Mean Corpuscular Volume 95.1 fL (81-99); Mean Platelet Vol. 10.2 fl (6.2-12.0); Monocyte# 0.68 X10^3/uL; Monocyte% 8.6 % (0-10); NRBC Flagged by Analyzer 0 % (0-5); Neutrophil # 4.98 X10^3/uL (2.7-7.7); Neutrophil % 62.6 % (47-70); Platelet Count 358 K/mm3 (150-450); RBC Distribution Width CV 12.3 % (11.6-14.6); RBC Distribution Width SD 43.1 fl (35.1-43.9); Red Blood Count 4.47 M/mm3 (4.2-5.4); White Blood Count 7.9 K/mm3 (4.4-11.0)
[2024-01-21 13:14] LABS: ALB/GLOB Ratio 1.1 RATIO (0.9-2.4); AST(SGOT) 20 U/L (15-37); Alanine Aminotransfer ALT/SGPT 31 U/L (13-56); Albumin, Serum 3.7 g/dL (3.2-5.0); Alkaline Phosphatase 73 U/L (45-117); Anion Gap 7 (5-15); BUN 11 mg/dL (7-18); BUN/Creat Ratio 16.5 RATIO (10-20); Calcium,Total 8.6 mg/dL (8.5-10.1); Chloride 109 mmol/L (98-107); Cholesterol 242 mg/dL (200); Creatinine, Serum 0.67 mg/dL (0.55-1.02); EST Glomerular Filtration Rate 92 mL/min (>60); Est Glom Filt Rate - Afr Amer 111 mL/min (>60); Globulin 3.3 g/dL (2.2-4.2); Glucose 139 mg/dL (74-106); High Density Lipoprotein 54 mg/dL; Potassium 3.3 mmol/L (3.5-5.1); Sodium Level 141 mmol/L (136-145); Triglycerides 184 mg/dL; Very Low Density Lipoprotein 37 mg/dL (5-40)
[2024-01-22 09:03] LABS: Hemoglobin A1c 6.8 % (3.8-5.6)
== END | disposition home or self-care (01) ==
LOC: BIMLAB 10:48
PROVIDERS: PCP Internal Medicine; Visit Provider Internal Medicine
DX: I10 Essential (primary) hypertension (principal); E78.5 Hyperlipidemia, unspecified; R73.03 Prediabetes; E07.9 Disorder of thyroid, unspecified
CPT/HCPCS: 36415; 80053; 80061; 83036; 84443; 85025

== ENCOUNTER → 2024-04-17 | Outpatient (CLI) | payer MEDICARE, OTHER, SELFPAY ==
--- NOTE | 2024-04-17 10:30 | BD_ITS ---
PROCEDURE: DEXA BONE DENSITY STUDY REASON FOR EXAM: F, age 74 y/o . Postmenopausal. TECHNIQUE: DEXA scan of the lumbar spine and both hips. COMPARISON: Comparison is made with prior study dated August 26, 2017. FINDINGS: Lumbar Spine (L1-L4): g/cm2 (1.417)/T-score (4.0)/Z-score (6.2) findings are suggestive of normal with a low fracture risk. Left Femur Total: g/cm2 (1.136)/T-score (1.6)/Z-score (3.3) Left Femoral Neck: g/cm2 (0.762)/T-score (-0.8)/Z-score (1.3) Right Femur Total: g/cm2 (1.012)/T-score (0.6)/Z-score (2.3) Right Femoral Neck: g/cm2 (0.750)/T-score (-0.9)/Z-score (1.1) The T-Scores on the most recent prior examination were: Lumbar Spine (L1-L4): There has been decrease of bone density since the previous examination. Left Femur Total: Improvement of 6.4%. Right Femur Total: Improvement of 4.9%. BD/Dexa Bone Density Study IMPRESSION: The patient is considered normal as outlined below according to World [employer] anization (WHO) criteria with a low fracture risk. There has been improvement of bone density since the previous examination. Reading Location: [place] [address]
--- NOTE | 2024-04-17 10:30 | BI_ITS ---
PROCEDURE: SCRN MAMM (CAD)W/IESHA BILAT REASON FOR EXAM: F, Age 74 y/o, mother with breast cancer. TECHNIQUE: Bilateral screening digital breast tomosynthesis with 2D and 3D images. Computer aided detection. COMPARISON: Prior exam(s) dating back to August 10, 2021.. FINDINGS: The breasts are almost entirely fatty. Stable 7 mm well-defined nodule in the central lateral aspect of the right breast suggestive of a small lymph. Stable examination. Stable small bilateral axillary lymph nodes. No suspicious masses, areas of developing architectural distortion, or suspicious calcifications. BI/SCRN MAMM (CAD)W/IESHA BILAT IMPRESSION: BI-RADS 2: BENIGN. RECOMMEND ANNUAL MAMMOGRAPHIC SCREENING. Follow-up code: Routine Follow-up The patient will be notified of the results by letter. Reading Location: [place] [address]
== END | disposition home or self-care (01) ==
PROVIDERS: PCP Internal Medicine; Referring Provider Internal Medicine; Visit Provider Internal Medicine
DX: Z12.31 Encounter for screening mammogram for malignant neoplasm of breast (principal); Z78.0 Asymptomatic menopausal state
CPT/HCPCS: 77063; 77067; 77080

== ENCOUNTER → 2024-04-28 | Outpatient (CLI) | payer MEDICARE, OTHER, SELFPAY ==
[2024-04-28 14:07] LABS: Bacteria 0 SEEN /hpf (None Seen); Mucous, Urine 0 SEEN /hpf (<or=2+)
[2024-04-28 15:16] LABS: Color, Urine Yellow (Yellow); Glucose, Dipstick Normal (Normal); Ketone-Dipstick Negative (Negative); Leukocyte Esterase-Dipstick Negative /ul (Negative); Nitrite-Dipstick Negative (Negative); Occult Blood-Urine Negative /ul (Negative); Protein-Dipstick Negative (Negative); Urine Bilirubin Dipstick Negative (Negative); Urine Clarity Clear (Clear); Urine Urobilinogen Normal (Normal)
[2024-04-28 15:39] LABS: Red Blood Cells-Urine 0-5 SEEN /hpf (0-5); Squamous Epithelial Cells - UA 0-5 SEEN /hpf (5-10); White Blood Cells 0-5 SEEN /hpf (0-5)
[2024-04-28 19:20] LABS: Anion Gap 10 (5-15); BUN 25 mg/dL (7-18); BUN/Creat Ratio 29.2 RATIO (10-20); Calcium,Total 9.8 mg/dL (8.5-10.1); Chloride 106 mmol/L (98-107); Creatinine, Serum 0.86 mg/dL (0.55-1.02); EST Glomerular Filtration Rate 69 mL/min (>60); Est Glom Filt Rate - Afr Amer 83 mL/min (>60); Glucose 123 mg/dL (74-106); Potassium 4.2 mmol/L (3.5-5.1); Sodium Level 140 mmol/L (136-145)
== END | disposition home or self-care (01) ==
LOC: BIMLAB 14:06
PROVIDERS: PCP Internal Medicine; Referring Provider Internal Medicine; Visit Provider Internal Medicine
DX: I10 Essential (primary) hypertension (principal); N32.81 Overactive bladder
CPT/HCPCS: 36415; 80048; 81001

== ENCOUNTER → 2024-05-13 | Outpatient (CLI) | payer MEDICARE, OTHER, SELFPAY ==
--- NOTE | 2024-05-13 08:23 | MRI_ITS ---
PROCEDURE: MRI lumbar spine REASON FOR EXAM: PAIN TECHNIQUE: Multiplanar, multisequence MRI of the lumbar spine without and with intravenous gadolinium-based contrast. CONTRAST: 21 mL Clariscan intravenous. COMPARISON: Lumbar spine series of 04/11/2024. FINDINGS: Metallic artifact from a lower lumbar posterior fixation device is seen, including bilateral pedicle screws at L4 and L5. Prominent degenerative disc disease of the lumbar spine is similar to the prior study of 04/11/2024. Again seen is mild anterolisthesis of L4 upon L5 and mild retrolisthesis of L1 upon L2 and more so of L2 upon L3, similar to the prior study. Stable lumbar levoscoliosis. No acute osseous signal changes are seen. Conus Medullaris: Normally positioned. L1-2: Mild vertebral body osteophytosis is seen. A mild disc bulge is noted. Moderate right and mild left neural foraminal narrowing is noted. No significant spinal stenosis noted. L2-3: Inferior L2 vertebral body osteophytosis is seen, [id number]-[id number]-left. A slight disc bulge is seen, as well as a partially uncovered disc. Mild left and moderately severe right neural foraminal narrowing noted a mild degree of spinal canal narrowing is present. L3-4: Mild vertebral body osteophytosis and a mild disc bulge are seen. No significant degree of spinal canal stenosis is noted evaluation of the neural foramina is somewhat limited by metallic artifact, but at least moderate left neural foraminal narrowing is seen. L4-5: At this level of anterolisthesis, uncovered disc is noted. Evaluation is somewhat limited by metallic artifact, but at least mild right neural foraminal narrowing is noted. No significant spinal canal stenosis is seen at this level. L5-S1: A very mild disc bulge is noted. Evaluation of the neural foramina is limited by metallic artifact, but probably at least mild bilateral neural foraminal narrowing is seen. No significant degree of spinal canal stenosis is noted. Sacrum: Visualized upper sacrum and SI joints are unremarkable. Following intravenous contrast administration, no unexpected area of postcontrast enhancement is seen. MRI/Spine Lumbar W/WO Contrast IMPRESSION: Postsurgical changes and multilevel lumbar degenerative disc disease as describ ed Reading Location: [address]
== END | disposition home or self-care (01) ==
LOC: MRI 08:12
PROVIDERS: PCP Internal Medicine; Referring Provider Orthopaedic Surgery Orthopaedic Surgery of the Spine; Visit Provider Orthopaedic Surgery Orthopaedic Surgery of the Spine
DX: M54.16 Radiculopathy, lumbar region (principal); Z98.1 Arthrodesis status
CPT/HCPCS: 72158; A9575

== ENCOUNTER → 2024-06-03 | Outpatient (CLI) | payer MEDICARE, OTHER, SELFPAY ==
--- NOTE | 2024-06-04 12:41 | ST.MBS ---
Modified Barium Swallow Patient Information Study Date: 06/04/24 Study Time: 13:00 Direct Billable Minutes: 80 Total Minutes procedure & reportin Diagnosis: Dysphagia R13.10 Referring Physician: Selena Sahu Reason for Referral: Assess swallow function, assess risk for aspiration, and determine recommendations for least restrictive diet textures and compensatory strategies to improve safety of swallow. Medical History: The patient reports hx of difficulty swallowing for years (pt unsure exact duration) characterized by sensation of throat being crowded, dryness in mouth/throat, food sitting in her throat (improving w/ liquid wash), coughing on her own saliva, regurgitated food into throat 1X. Her PCP referred her for MBSS to further assess concerns for swallowing difficulty. Current Diet Ordered: Regular textures / Thin liquids Dentition: Upper Dentures and Lower Dentures Mental Status: WNL Respiratory Status: Oxygenating on Room Air Penetration-Aspiration Scale Penetration-Aspiration Scale: OBJECTIVE ASSESSMENT OF SWALLOW FUNCTION (QUANTITATIVE ? PER TRIAL): PENETRATION / ASPIRATION SCALE (ROJAS): 1 = does not enter airway 2 = enters airway/above vocal folds/ejected 3 = enters airway/above vocal folds/not ejected 4 = enters airway/contacts vocal folds/ejected 5 = enters airway/contacts vocal folds/not ejected 6 = enters airway/below vocal folds/ejected 7 = enters airway/below vocal folds/not ejected despite effort 8 = enters airway/below vocal folds/no effort VIDEOFLOROSCOPIC SCALE SCORE (ROJAS): Grade I = aspiration of material that has penetrated into the laryngeal vestibule, intact cough reflex Grade II = aspiration < 10 % of the bolus, intact cough reflex Grade III = aspiration of < 10 % of the bolus, reduced cough reflex or aspiration of > 10 % of the bolus, intact cough reflex Grade IV = aspiration of > 10 % of the bolus, reduced cough reflex Penetration-Aspiration Scale Score Thin Liquid via teaspoon: Result: 2= enter airway/above vocal folds/ejected Thin Liquid via teaspoon Trial 2: Result: 2= enter airway/above vocal folds/ejected Thin Liquid via small single sip: cup: Result: 2= enter airway/above vocal folds/ejected Thin Liquid via sequential sips: cup: Result: 4= enters airway/contacts vocal folds/ejected Comment: Esophageal screen - Complete clearance. Warba Thick Liquid via small single sip: cup: Result: 1= does not enter airway Pudding via teaspoon: Result: 1= does not enter airway Comment: Esophageal screen - Complete clearance. 1/2 Cookie: Result: 1= does not enter airway Comment: Esophageal screen - Retention in lower and middle esophagus. Thin Liquid via sequential sips:straw: Result: 2= enter airway/above vocal folds/ejected Comment: Esophageal screen - Complete clearance. Oral Phase Labial Seal: Interlabial escape, no progression to anterior lip Tongue Control During Bolus Hold: Posterior escape of greater than half of bolus Bolus Preparation/Mastication: Timely and efficient chewing and mashing (Small pieces of cookie un-chewed) Bolus Transport/Lingual Motion: Delayed initiation of tongue motion Oral Residue: Residue collection on oral structures Pharyngeal Phase Initiation of Pharyngeal Swallow: Bolus head in pyriforms Soft Palate Elevation: Trace column of contrast/air between soft palate and pharyngeal wall Laryngeal Elevation: Comp. Superior move thyroid cart w/comp. apprx arytenoid cart-epig pet Anterior Hyoid Excursion: Partial anterior movement Epiglottic Movement: Complete inversion Laryngeal Vestibule Closure at Height of Swallow: Incomplete; narrow column of air/contrast in laryngeal vestibule Pharyngeal Stripping Wave: Present - diminished Pharyngoesophageal Segment Opening: Parital distension and partial duration; parital obstruction of flow Tongue Base Retraction: Narrow column of contrast between tongue base & post. pharyngeal wall Pharyngeal Residue: Collection of residue within or on pharyngeal structures Esophageal Phase Esophageal Clearance: Esophageal retention Diagnosis/Impression Diagnosis: Mild oropharyngeal dysphagia R13.12; Esophageal dysphagia R13.14 Impression: The oral phase is marked by... -Timely mastication; however, small pieces of cookie un-chewed. -Posterior loss of ~50% of thin liquids to the pyriform sinuses prior to swallow onset. -Delayed tongue motion for A-P transport. -Trace-mild oral residues. The pharyngeal phase is marked by... -Delayed swallow onset. -Trace-mild pharyngeal residues due to decreased TB retraction and pharyngeal stripping wave. -Consistent laryngeal penetration of thin liquids during the swallow, which fully ejected after the swallow. With sequential sips via cup, liquids penetrated to the patient's vocal folds, but fully ejected. No aspiration was observed; however, MATCHER recommends sips 1 at a time to decrease risk for aspiration. The esophageal phase is marked by... -Small CP bar at the level of C4-C5 with small collection of barium just above CP bar, which fully cleared through the upper esophagus after the swallow. -Retention of cookie in the middle and lower esophagus, which fully cleared w/ liquid wash. Recommendations Diet: Regular Textures (Moisten dry textures) and Thin Liquids Compensatory Strategies: Small Bites (chew thoroughly), Small Sips (Sips 1 at a time), Slow Rate, Alternate bites/solids and sips/liquids (1 sip after each bite of solid food), Sitting upright and Remain sitting upright for 30 minutes after PO intake Recommend Repeat Modified Barium Swallow: No Need for Skilled Speech Therapy Services: Yes Comment: -Train the patient in use of strategies to decrease risk for aspiration and reflux aspiration. -Ongoing assessment of diet tolerance of recommended textures. -Train the patient in oropharyngeal exercise program to improve bolus control, swallow onset, and pharyngeal motility (lingual resistance, Ines, Ghislaine, effortful). Recommended Referrals: GI Consult Education Completed: 1. Described result of evaluation., 2. Pt understands evaluation & agrees with goals and treatment plan. and 7. Pt requires further education on strategies & risks. Status Active ST Patient: Active Contact Information [facility] Speech Therapy:: Cammy Mabry M.A. CCC-MATCHER? Speech-Language Pathologist?? [facility] [address] [place] [address]? [email or web address]?? [phone]
== END | disposition home or self-care (01) ==
LOC: RAD 12:54
PROVIDERS: PCP Internal Medicine; Referring Provider Internal Medicine; Visit Provider Internal Medicine
DX: R13.10 Dysphagia, unspecified (principal)
CPT/HCPCS: 74230; 92611

== ENCOUNTER → 2024-06-04 | Outpatient (CLI) | payer MEDICARE, OTHER, SELFPAY ==
[2024-06-04 13:01] LABS: Creatinine, Serum 0.65 mg/dL (0.70-1.20); EST Glomerular Filtration Rate 92 (>60)
== END | disposition home or self-care (01) ==
LOC: LAB 12:17
PROVIDERS: PCP Internal Medicine; Referring Provider Specialist; Visit Provider Specialist
DX: N28.9 Disorder of kidney and ureter, unspecified (principal)
CPT/HCPCS: 36415; 82565

== ENCOUNTER → 2024-06-16 | Outpatient (CLI) | payer MEDICARE, OTHER, SELFPAY ==
--- NOTE | 2024-06-16 15:31 | US_ITS ---
PROCEDURE: PELVIC W/ TRANSVAGINAL REASON FOR EXAM: ABNORMAL UETRINE FINDING TECHNIQUE: Transabdominal and transvaginal pelvic ultrasound COMPARISON: None FINDINGS: Measurements: Uterus: 7.4 cm x 4.7 cm x 3.5 cm with a volume of 63.1 mL Endometrial Thickness: 1.6 mm Right Ovary: Not visualized. Left Ovary: Not visualized. TRANSABDOMINAL: Uterus: 8 mm x 7 mm x 8 mm posterior fundal fibroid. Adjacent to this, there is a 6 mm x 5 mm x 4 mm fibroid. Endometrium: 1.6 mm Right ovary: Not visualized Left ovary: Not visualized Transvaginal sonography was performed to better visualize the endometrium. TRANSVAGINAL: Uterus: Fibroid uterus as described. Endometrium: 1.6 mm Right ovary: Not visualized Left ovary: Not visualized Other adnexal findings: None. Cul-de-sac: No free intraperitoneal fluid identified. Tenderness: No tenderness US/Pelvic w/ Transvaginal IMPRESSION: Small uterine fibroids. The ovaries were not visualized. Reading Location: [place] [id number]
== END | disposition home or self-care (01) ==
LOC: US 15:30
PROVIDERS: PCP Internal Medicine; Referring Provider Internal Medicine; Visit Provider Internal Medicine
DX: R93.89 Abnormal findings on diagnostic imaging of other specified body structures (principal)
CPT/HCPCS: 76830; 76856

== ENCOUNTER 2024-07-02 11:25 | Emergency (ER) | payer MEDICARE, OTHER, SELFPAY ==
[2024-07-02 11:26] VITALS: BP 145/85; PULSE 99; RESP 20; TEMP 36.3; O2SAT 98
--- NOTE | 2024-07-02 11:58 | EX.ED.DYSGE1 ---
HPI History of Present Illness Chief Complaint: Constipation Narrative Narrative: Chief complaint and HPI: Constipation. 74-year-old female with recent left knee surgery presents for evaluation of constipation. Patient states approximately 1 week ago she had surgery of the left knee by Dr. Castelan. She states that she originally was taking oxycodone as scheduled however she has now been taking it intermittently. She states that she was prescribed a stool softener which she has been taking. She also endorses taking MiraLAX, milk of magnesium, and eating prunes. She states that she feels like she needs to have a bowel movement but that she is unable to relieve herself. Her last bowel movement was approximately 1 week ago. Associated symptom is nausea, diffuse abdominal pain, and bloating. She denies any fever, chills, shortness of breath, chest pain, dysuria. Review of systems: See HPI Medications: As listed on the chart Allergies: As listed on the chart PFSH: Per chart Vital signs: As listed on the chart. Reviewed. Physical exam: Gen: A&O x3, NAD Head: Normocephalic, atraumatic Eyes: No sclera icterus, conjunctiva clear ENT: Moist mucous membranes Neck: Trachea midline, No JVD CV: RRR, no murmurs, no peripheral edema Resp: Lungs CTA BL, no w/r/c GI: Abd soft, mildly distended, mild diffuse tenderness to palpation, no r/r/g Rectal: Normal external examination. No evidence of hemorrhoids or fissures. Normal tone and sensation. No pain out of proportion. Large stool ball in the rectum-was able to partially disimpact, brown stool Musc: Full ROM, no deformity Skin: Warm, dry Neuro: Alert, oriented, grossly intact, sensation intact Psych: Cooperative, appropriate mood and affect [facility] Medical History Abnormal finding present on diagnostic imaging of uterus Health care maintenance Trigger finger, right Memory changes Left shoulder pain Chronic constipation OAB (overactive bladder) Umbilical discharge Lumbar stenosis Wears dentures Depression Arthritis Bladder disease High cholesterol Back pain Injury of head and neck Difficulty swallowing History of ulceration Heartburn Shortness of breath on exertion Non-smoker On home oxygen therapy Leg cramps History of Holter monitoring History of echocardiogram History of edema Cardiology follow-up encounter History of irregular heartbeat Hx of fracture of ankle Flu vaccine need Preoperative evaluation to rule out surgical contraindication Anxiety and depression Spinal stenosis Urinary frequency Venous insufficiency of both lower extremities Chronic abdominal pain Left arm pain Edema of left upper arm Leg pain, left Palpitations Essential hypertension Edema of both lower legs MRSA (methicillin resistant Staphylococcus aureus) infection Ulcer of left lower extremity with fat layer exposed Other acute postprocedural pain Thyroid disease Lupus Hearing problem Headache History of blood clots Open wound of left lower leg due to animal bite Abscess of left lower leg Cellulitis of left anterior lower leg Bitten by pig, initial encounter Skin necrosis Post-menopausal CPAP (continuous positive airway pressure) dependence On home oxygen therapy History of stress test Scarlet fever Morbid obesity Avulsion injury Animal bite Laceration COVID-19 Suspected COVID-19 virus infection Acute respiratory failure with hypoxia Dislocation of right ankle joint Syndesmotic disruption of right ankle Bimalleolar fracture of right ankle History of left heart catheterization (LHC) (~07/19/18) SOB (shortness of breath) HESHAM (obstructive sleep apnea) Pulmonary hypertension Essential hypertension Sebaceous cyst Osteoarthritis Urinary incontinence Mood disorder Edema Hyperlipidemia Home Medications ?Medication ?Instructions ?Recorded ?Last Taken ?Type potassium chloride 20 mEq 20 meq PO DAILY #90 tabs 11/08/22 07/01/24 Rx tablet,extended release acetaminophen 650 mg 650 mg PO Q12H PRN pain 06/12/23 07/02/24 History tablet,extended release (Tylenol Arthritis Pain) amlodipine 5 mg tablet 5 mg PO DAILY #90 tabs 06/12/23 07/01/24 Rx olmesartan 40 mg tablet 40 mg PO QHS #90 tabs 04/10/24 07/01/24 Rx venlafaxine 150 mg 150 mg PO DAILY #90 caps 04/28/24 07/01/24 Rx capsule,extended release 24 hr mirabegron 25 mg tablet,extended 25 mg PO QDAY #30 tabs 04/29/24 07/01/24 Rx release 24 hr (Myrbetriq) furosemide 40 mg tablet 40 mg PO BID fluid #180 tabs 05/28/24 07/01/24 Rx Held on 07/02/24. Instructions: pt does not want to take right now doxycycline hyclate 100 mg capsule 100 mg PO Q12H 07/02/24 07/01/24 History famotidine 20 mg tablet 20 mg PO DAILY 07/02/24 07/01/24 History oxybutynin chloride 10 mg 10 mg PO DAILY 07/02/24 07/01/24 History tablet,extended release 24 hr oxycodone 5 mg tablet 5 mg PO Q8H PRN pain 07/02/24 07/01/24 History rivaroxaban 10 mg tablet (Xarelto) 10 mg PO DAILY 07/02/24 07/02/24 History Allergy/AdvReac Type Severity Reaction Status Date / Time codeine Allergy Mild roaring Verified 07/02/24 11:30 sounds, hives, headache Penicillins Allergy Mild hives Verified 07/02/24 11:30 Family History Father Heart disease Hypertension Hyperlipidemia Melanoma Myocardial infarction Mother Diabetes Breast cancer Heart disease Hypertension Hyperlipidemia Hx of blood clots Sister CVA (cerebral vascular accident) Diabetes Other Arthritis High cholesterol Osteoporosis Parkinsons disease Skin cancer Surgical History History of lumbar surgery Hx of colonoscopy History of surgery on lower extremity Hx of fusion of cervical spine History of excision of lesion H/O cardiac catheterization S/P tubal ligation History of tonsillectomy exploratory surgery S/P right knee arthroscopy S/P dilation and curettage History of S/P partial thyroidectomy Social History Smoking Status: Never smoker alcohol intake: never substance use type: does not use caffeine: No eating out: rarely or never what type of physical activity do you participate in: none seatbelt use: always do you feel safe at home: Yes additional social history: 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 Patient states approximately 1 week ago she had surgery of the left knee by Dr. Castelan. On chart review, I was unable to find an operative report. Patient has been taking intermittent narcotics. On a bowel regimen. On rectal exam, patient had a large stool ball in her rectum. This was partially manually disimpacted. Patient tolerated this well. Differential diagnosis includes but is not limited to constipation, electrolyte abnormality, ileus. Basic labs ordered with CT abdomen and pelvis. CBC with mild leukocytosis of 13.5. No anemia. BMP relatively unremarkable without significant electrolyte abnormality or JORDY. Magnesium unremarkable. CT abdomen pelvis shows high rectosigmoid stool burden including a 9.1 cm rectal stool ball. Trace surrounding stranding could reflect early stercoral colitis. Upstream colonic stool burden is moderate and mostly right-sided. Patient has lumbar spinal operative changes with ill-defined fluid/stranding similar to previous MRI on 05/13/2024. Patient not endorsing any back pain, suspect this is chronic as this was seen previously. Patient symptoms are likely secondary to constipation from her narcotic use. She is updated of all the results. Plan is for enema. Patient unable to relieve herself with enema. Given significant stool burden, general surgery was consulted and patient was discussed with Dr. Daigle. Recommended admission to the hospital service with multiple enemas. NPO. If patient is unable to relieve herself may need surgical disimpaction. Patient was updated of all results and the plan. Another enema ordered. Patient was discussed with the hospitalist service who accepted admission. Impression: 1. Constipation 2. Recent surgery with narcotic usage Lab Data Labs: Laboratory Results - last 24 hr 07/02/24 12:04 WBC 13.5 H RBC 4.07 L Hgb 13.1 Hct 38.4 MCV 94.3 MCH 32.2 H MCHC 34.1 RDW Std Deviation 42.3 RDW Coeff of Kristie 12.2 Plt Count 500 H MPV 9.1 Immature Gran % (Auto) 0.400 Neut % (Auto) 79.8 H Lymph % (Auto) 11.7 L Rabun % (Auto) 7.2 Eos % (Auto) 0.6 Baso % (Auto) 0.3 Absolute Neuts (auto) 10.7 H Absolute Lymphs (auto) 1.58 Nucleated RBC % 0 Sodium 140 Potassium 4.1 Chloride 103 Carbon Dioxide 25.0 Anion Gap 13 BUN 16 Creatinine 0.66 L Est GFR (MDRD) Non-Af 92 BUN/Creatinine Ratio 24.4 H Glucose 174 H Calcium 9.4 Magnesium 2.1 Radiography Diagnostic Testing: Clinical Impression(s) from Imaging Studies Abdomen/Pelvis CT 07/02/24 12:48 IMPRESSION: 1. High rectosigmoid stool burden including a 9.1 cm rectal stool ball. Trace surrounding stranding could reflect early stercoral colitis. Upstream colonic stool burden is moderate and mostly RIGHT-sided. 2. Lumbar spinal operative changes with ill-defined fluid/stranding in the operative bed grossly similar to previous MRI 05/13/2024 allowing for the difference in modality. Appearance may be postoperative and reflect seroma however correlate for clinical evidence of superimposed infection. 3. Distended without calcified stones, convincing inflammation, or biliary dilatation. 4. Additional description as above. Reading Location: [id number] Discharge Plan Triage Chief Complaint: Constipation ED Provider: Monico Zavaleta Dx/Rx/DC Orders Prescriptions: No Action potassium chloride 20 mEq tablet extended release 20 meq PO DAILY Qty: 90 3RF acetaminophen [Tylenol Arthritis Pain] 650 mg tablet extended release 650 mg PO Q12H PRN (Reason: pain) amlodipine 5 mg tablet 5 mg PO DAILY Qty: 90 3RF venlafaxine 150 mg capsule,extended release 24hr 150 mg PO DAILY Qty: 90 1RF doxycycline hyclate 100 mg capsule 100 mg PO Q12H oxybutynin chloride 10 mg tablet extended release 24hr 10 mg PO DAILY famotidine 20 mg tablet 20 mg PO DAILY oxycodone 5 mg tablet 5 mg PO Q8H PRN (Reason: pain) Xarelto 10 mg tablet 10 mg PO DAILY olmesartan 40 mg tablet 40 mg PO QHS Qty: 90 1RF mirabegron [Myrbetriq] 25 mg tablet extended release 24 hr 25 mg PO QDAY Qty: 30 0RF furosemide 40 mg tablet 40 mg PO BID Qty: 180 3RF Primary Care Provider: Selena Sahu Referrals: Selena Sahu MD [Primary Care Provider] - Print Language: Vietnamese
[2024-07-02] MEDS: 0.9% Normal Saline (1000mL) 1,000 ML 999 ML IV (12:11)
[2024-07-02 12:12] LABS: Absolute Lymphocyte Count 1.58 X10^3/uL (0.83-4.51); Absolute Neutrophil Count 10.7 X10^3/uL (2.0-7.7); Basophil# 0.04 X10^3/uL; Basophil% 0.3 % (0-1); Eosinophil# 0.08 X10^3/uL; Eosinophils% 0.6 % (0-5); Hematocrit 38.4 % (37-47); Hemoglobin 13.1 g/dL (12.0-15.0); Lymphocyte # 1.58 X10^3/ul (0.83-4.51); Lymphocyte % 11.7 % (19-41); Mean Corp Hgb Conc 34.1 g/dL (32-36); Mean Corpuscular Hgb 32.2 pg (27.0-32.0); Mean Corpuscular Volume 94.3 fL (81-99); Mean Platelet Vol. 9.1 fl (6.2-12.0); Monocyte# 0.97 X10^3/uL; Monocyte% 7.2 % (0-10); NRBC Flagged by Analyzer 0 % (0-5); Neutrophil # 10.73 X10^3/uL (2.7-7.7); Neutrophil % 79.8 % (47-70); Platelet Count 500 K/mm3 (150-450); RBC Distribution Width CV 12.2 % (11.6-14.6); RBC Distribution Width SD 42.3 fl (35.1-43.9); Red Blood Count 4.07 M/mm3 (4.2-5.4); White Blood Count 13.5 K/mm3 (4.4-11.0)
[2024-07-02 12:41] LABS: Anion Gap 13 (5-15); BUN 16 mg/dL (4-19); BUN/Creat Ratio 24.4 RATIO (10-20); Calcium,Total 9.4 mg/dL (7.6-11.0); Chloride 103 mmol/L (98-108); Creatinine, Serum 0.66 mg/dL (0.70-1.20); EST Glomerular Filtration Rate 92 (>60); Glucose 174 mg/dL (70-99); Magnesium 2.1 mg/dL (1.5-2.2); Potassium 4.1 mmol/L (3.3-5.1); Sodium Level 140 mmol/L (133-145)
--- NOTE | 2024-07-02 12:48 | CT_ITS ---
PROCEDURE: ABDOMEN/PELVIS W IV CONT ONLY, 07/02/2024 REASON FOR EXAM: CONSTIPATION, ABDOMINAL PAIN TECHNIQUE: CT abdomen and pelvis was performed with IV contrast. Multiplanar reformats were generated. CONTRAST: Isovue-300 VOLUME: 100mL RADIATION DOSE SUMMARY: CTDlvol: 9.97+ 21.94 mGy DLP: 1178.11 mGycm One or more dose reduction techniques were used (e.g., Automated exposure control, adjustment of the mA and/or kV according to patient size, use of iterative reconstruction technique). COMPARISON: 10/17/2022 FINDINGS: Streak artifact related to lumbar spinal fusion hardware. Lung bases: Minimal atelectasis/scarring.. Liver: Unremarkable. Spleen: Unremarkable. Gallbladder: Distended without calcified stones, convincing inflammation, or biliary dilatation. Pancreas: Similar small calcification in the pancreatic head adjacent to the distal CBD. Adrenals: Unremarkable. Kidneys: Unremarkable. Bowel: Transverse duodenal diverticulum. High rectosigmoid colonic stool burden. Rectum distended to 9.1 x 6.8 cm.. trace surrounding stranding in the mesorectum and presacral region. Upstream colonic stool burden is moderate and mostly RIGHT-sided. Upstream liquid context suggesting malabsorption. Normal caliber appendix. Lymph nodes: Unremarkable. Vasculature: Mild/moderate atherosclerosis.. Peritoneum: As above.. Bladder: Underdistended and suboptimally evaluated, grossly unremarkable. Reproductive Organs: Unremarkable. Body Wall: Tiny fat containing umbilical hernia. Mild nonspecific subcutaneous stranding along the flanks and bilateral hips and lateral proximal lower extremities. Bones: Multilevel spondylosis. L4-L5 spinal fusion with laminectomy. Small fluid collection in the posterior paraspinal operative bed is difficult to delineate, roughly 4.4 x 4.2 cm with surrounding ill-defined fluid and stranding grossly similar to MRI 05/13/2024 allowing for the difference in modality. Thoracolumbar levoscoliosis. CT/Abdomen/Pelvis W IV Cont ONLY IMPRESSION: 1. High rectosigmoid stool burden including a 9.1 cm rectal stool ball. Trace surrounding stranding could reflect early stercoral colitis. Upstream colonic stool burden is moderate and mostly RIGHT- sided. 2. Lumbar spinal operative changes with ill-defined fluid/stranding in the oper ative bed grossly similar to previous MRI 05/13/2024 allowing for the difference in modality. Appearance may be postoper ative and reflect seroma however correlate for clinical evidence of superimposed infection. 3. Distended without calcified stones, convincing inflammation, or biliary dila tation. 4. Additional description as above. Reading Location: [id number]
[2024-07-02 13:59] VITALS: BP 148/65; PULSE 85; RESP 17; O2SAT 97; BMI 39.3
--- NOTE | 2024-07-02 16:03 | PCM.PN.HOSP ---
Subjective Subjective 74-year-old female presents to the hospital with abdominal pain and bloating. She has had decreased p.o. intake for the last couple of days, she had knee surgery at an outside hospital on 06/24/2024 and has been on narcotics since then. In the ER she has a CT scan of her abdomen pelvis which shows a rectosigmoid stool burden with a 9.1 cm rectal stool ball. General surgery was called and recommended admission with frequent enemas, and if these were unsuccessful then potentially needing surgical disimpaction as manual disimpaction in the ER was unsuccessful given how high up the stool burden appeared to be. Objective Data Objective Data Vital Signs: Vital Signs Temp Pulse Resp BP Pulse Ox O2 Del Method 97.4 F L 85 17 148/65 H 97 Room Air 07/02/24 11:26 07/02/24 13:59 07/02/24 13:59 07/02/24 13:59 07/02/24 13:59 07/02/24 13:59 Oxygen Delivery Method Room Air Weight: 251 lb 1.704 oz Body Mass Index (BMI) 39.3 Intake & Output: Intake and Output for Last 24 Hours 07/01/24 07/02/24 07/03/24 03:59 03:59 03:59 Intake Total 1000 / 1000 Balance 1000 / 1000 Lab / Micro Data 07/02/24 12:04 07/02/24 12:04 Labs: Laboratory Results - last 24 hr 07/02/24 12:04: WBC 13.5 H, RBC 4.07 L, Hgb 13.1, Hct 38.4, MCV 94.3, MCH 32.2 H, MCHC 34.1, RDW Std Deviation 42.3, RDW Coeff of Kristie 12.2, Plt Count 500 H, MPV 9.1, Immature Gran % (Auto) 0.400, Neut % (Auto) 79.8 H, Lymph % (Auto) 11.7 L, [place] % (Auto) 7.2, Eos % (Auto) 0.6, Baso % (Auto) 0.3, Absolute Neuts (auto) 10.7 H, Absolute Lymphs (auto) 1.58, Nucleated RBC % 0, Sodium 140, Potassium 4.1, Chloride 103, Carbon Dioxide 25.0, Anion Gap 13, BUN 16, Creatinine 0.66 L, Est GFR (MDRD) Non-Af 92, BUN/Creatinine Ratio 24.4 H, Glucose 174 H, Calcium 9.4, Magnesium 2.1 Radiography Diagnostic Testing: Radiology Impression Abdomen/Pelvis CT 07/02/24 12:48 IMPRESSION: 1. High rectosigmoid stool burden including a 9.1 cm rectal stool ball. Trace surrounding stranding could reflect early stercoral colitis. Upstream colonic stool burden is moderate and mostly RIGHT-sided. 2. Lumbar spinal operative changes with ill-defined fluid/stranding in the operative bed grossly similar to previous MRI 05/13/2024 allowing for the difference in modality. Appearance may be postoperative and reflect seroma however correlate for clinical evidence of superimposed infection. 3. Distended without calcified stones, convincing inflammation, or biliary dilatation. 4. Additional description as above. Reading Location: [facility] Physical Exam Narrative General: Alert, Oriented x3, Cooperative, No apparent distress HEENT: Atraumatic, PERRLA, EOMI, Normocephalic Oral: Moist Mucosa Neck: Supple, No JVD Lungs: Clear to auscultation, Normal air movement, No rhonchi, No wheeze, No rales Cardiovascular: Regular rate, Regular Rhythm, Normal S1, Normal S2, No murmurs Abdomen: Soft, Non Tender, Non-Distended, No Hepato-splenomegaly Neurological: No focal neurological deficits, moves all extremities Psych/Mental Status: Normal Affect, Appropriate Assessment & Plan Assessment/Plan (1) Constipation: PLAN: Plan 1. Postoperative constipation with stool ball that failed manual disimpaction ? This is likely related to narcotic use ? Second enema in the ER was successful in removing a large volume of stool, I discussed with general surgery who felt that given the volume as long as her symptoms have resolved she should be able to go home stool softeners. ? I discussed with the patient the plan for possible discharge from the ER they expressed understanding there is amenable to going home and would like to go home today. Will proceed with a soft diet and will do a third enema prior to discharge to make sure that all of the stool burden has been resolved ? Discussed that the next time she is ever on narcotics she needs to be more proactive in using stool softeners to try and prevent this from happening in the future, and also discussed dietary modifications Charges/Coding Visit Charges Office Visits / Consults: 97467 ED Visit; Low/Mod Severity
[2024-07-02 16:27] VITALS: BP 140/70; PULSE 80; RESP 15; TEMP 36.6; O2SAT 97
== END 2024-07-02 16:28 | disposition home or self-care (01) ==
LOC: ED 15:44 → PCU 15:58
PROVIDERS: Emergency Provider Surgery; PCP Internal Medicine; Visit Provider Surgery
DX: K59.00 Constipation, unspecified (principal); E78.00 Pure hypercholesterolemia, unspecified; I10 Essential (primary) hypertension; G47.33 Obstructive sleep apnea (adult) (pediatric); Z79.899 Other long term (current) drug therapy; Z79.01 Long term (current) use of anticoagulants; Z86.16 Personal history of COVID-19
CPT/HCPCS: 74177; 80048; 83735; 85025; 96360; 96361; 99285; Q9967; A4216

== ENCOUNTER → 2024-07-30 | Outpatient (CLI) | payer MEDICARE, OTHER, SELFPAY ==
[2024-07-30 15:32] LABS: Absolute Lymphocyte Count 2.23 X10^3/uL (0.83-4.51); Absolute Neutrophil Count 4.7 X10^3/uL (2.0-7.7); Basophil# 0.03 X10^3/uL; Basophil% 0.4 % (0-1); Eosinophils% 1.3 % (0-5); Hemoglobin 13.6 g/dL (12.0-15.0); Lymphocyte # 2.23 X10^3/ul (0.83-4.51); Lymphocyte % 29.2 % (19-41); Mean Corp Hgb Conc 32.4 g/dL (32-36); Mean Corpuscular Hgb 31.8 pg (27.0-32.0); Mean Corpuscular Volume 98.1 fL (81-99); Mean Platelet Vol. 9.9 fl (6.2-12.0); Monocyte# 0.51 X10^3/uL; Monocyte% 6.7 % (0-10); NRBC Flagged by Analyzer 0 % (0-5); Neutrophil # 4.74 X10^3/uL (2.7-7.7); Neutrophil % 62.1 % (47-70); Platelet Count 370 K/mm3 (150-450); RBC Distribution Width CV 12.5 % (11.6-14.6); RBC Distribution Width SD 45.2 fl (35.1-43.9); Red Blood Count 4.28 M/mm3 (4.2-5.4); White Blood Count 7.6 K/mm3 (4.4-11.0)
[2024-07-30 16:33] LABS: Hemoglobin A1c 6.9 % (<=5.6)
== END | disposition home or self-care (01) ==
LOC: BIMLAB 13:50
PROVIDERS: PCP Internal Medicine; Referring Provider Internal Medicine; Visit Provider Internal Medicine
DX: R73.03 Prediabetes (principal); I10 Essential (primary) hypertension
CPT/HCPCS: 36415; 83036; 85025

== ENCOUNTER 2024-09-26 15:00 | Outpatient (RCR) | payer MEDICARE, OTHER, SELFPAY ==
--- NOTE | 2024-06-30 15:03 | HP.PTEVAL ---
Patient's Visit Information Visit Information Visit Information: ELY HERNÁNDEZ is a 74 year old F referred to Physical Therapy by Raj Valencia PA-C with a diagnosis of L TKE, DOS: 06/24/24. Date of Evaluation: 06/30/24 Physical Therapist: Pravin Higgins DPT Visit Plan Frequency: 2-3x /Week Duration: 6 Weeks Plan: 1) L knee ROM to 0-0-120deg. 2) edema control 3) LE strengthening progressing to functional strengthening 4) vaso and ice as needed. Subjective Subjective: Pt. is here today for her initial evaluation with diagnosis of L TKA, DOS 06/24/24. Pt. reports overall doing well she arrives with use of FWW today. Pt. reports pain being better since this weekend. Pt. is sleeping well. No N/T, no chest pains, no calf pain. Pt. repots being HEP compliant with exercises given from hospital. Pt. reports having stiffness, but not severe. Pt. is doing most activities at home. Pt. does use a walker for all mobility. Bandage in place stiff form surgery. Pt. is hopeful to get back to all recreational activities. Pt. Pain L knee: Pain Intensity (Out of 10): 5 Pain Intensity Range: 3 and 8 Objective Objective: POSTURE: Pt. has fairly normal posture. [place] wt. shift to R side in stance and uses FWW. PALPATION: Pt. has negative homans sign. Pt. has increased edema. Knee still has bandage. Pt. to remove this weekend. NEURO: normal ROM: PROM 0-8-92deg. MMT: LLE: knee: ext 2#, flexion 5#; hip: flexion 0#, abd 4#. RLE: knee: ext 21#, flexon 18#; hip: flexionL: 18#, abd 17#. GAIT: Pt. ambulates with FWW with good tolerance. Pt. has some lack of TKE during stance and decreased knee flexion during swing phase. STAIRS: Pt. is able to complete with Favio and is very fatiguing with step to pattern. Balance/Special Test Scores TUG Test Time Seconds: 37 30 Second Chair Rise Test Seconds: 7 WOMAC Total Score: 96 WOMAC Percentatge: 0 Goals Goal 1:: LTG: Pt. to be I with HEP. Goal Time Frame: 4-6 Weeks Goal 2:: STG: Pt. to have increased L knee ROM to 0-0-120deg. Goal Time Frame: 2-4 Weeks Goal 3:: LTG: Pt. to have symmetrical strength between BLEs. Goal Time Frame: 4-6 Weeks Goal 4:: LTG: Pt. to ambulate with out AD with normal gait pattern without issues. Goal Time Frame: 4-6 Weeks Goal 5:: LTG: Pt. to negotiate 1 flight stairs with1 HR with reciprocal pattern. Goal Time Frame: 4-6 Weeks Goal 6:: LTG: pt. to complete TUG with less than 10 seconds without use of AD. Goal Time Frame: 4-6 Weeks Rehabilitation Potential Physical Therapy Diagnosis: Pt. has signs and symptoms consistent with L TKE, DOS: 06/24/24 with subsequent hypomobility, weakness, increased pain and difficulty with functional mobility. Pt. would benefit from PT to address the above limitations to progress back to all recreational and household activities. Rehabilitation Potential: Excellent Anticipated Interventions Patient/Client Instruction: Educate patient on: Condition, Plan of Care, Risk Factors and Benefits of Fitness Program For the Purpose of:: To improve decision making, To facilitate caregiver knowledge, To improve self management, To prevent re-injury and To improve ability to perform tasks related to life management Therapeutic Exercise to Include: Strength training, Endurance training, Balance training, Coordination, Flexibilty training, Passive ROM and Active ROM For the Purpose of:: To decrease pain, To decrease swelling/inflammation, To increase ROM, To improve nutrient delivery to tissue, To increase oxygenation perfusion, To improve muscle performance and motor function and To improve ability to perform ADL's Manual Therapy Techniques to Include: Mobilization, Passive ROM and Soft tissue mobilization For the Purpose of:: To increase ROM, To improve nutrient delivery to tissue, To increase oxygenation perfusion, To improve muscle performance and motor function, To improve ability to perform ADL's, To improve health of tissue, To decrease soft tissue restriction and To increase flexibility/ROM Cryotherapy (ice pack, ice massage): Yes Vasopneumatic device: Yes For the Purpose of:: To decrease pain, To decrease swelling/inflammation and To increase ROM Text: Thank you for the opportunity to evaluate your patient. For Medicare and Medicare HMO plans, please review the plan of care and approve it. It will need to be FAXED BACK to us at [phone] for Medicare purposes. For Medicare only, by signing this I certify the plan of care. Please let me know if there are questions or concerns regarding this plan of care. Physician Signature: Date:
--- NOTE | 2024-09-08 12:29 | HP.PTREVAL_ITS ---
Re-Evaluation Intro: Raj Valencia PA-C, It has been my pleasure to treat ELY HERNÁNDEZ over the last 8 visits for L TKA, DOS 06/24/24. Please see the progress note below for an update on the physical therapy plan of care! Subjective Subjective: Pt. reports going down the steps [place] [employer] when she felt like her knee cracked. She ended up fracturing her patella. Pt. to go back to physician in 2 weeks. Pt. is to ease back into activities. Pt. reports having 5/10 with walking, no pain at rest. Pt. reports getting stiff with prolonged sitting. Objective Objective/Function: L knee ROM: 0-2-106deg AROM, 0-0-110deg PROM. Pt. has some limited HS length without much pain. Pt. has quad set, but but a little weak. Reviewed with patient and improved. Due to her recent fracture she is to work on PROM/AROM, and quad sets. No resistance strengthening currently. Pt. is okay to walk and is WBAT, NO AD. Pt did not meet much of her goals due to having a patellar fracture ~1 month ago. She was immobilized and is now able to work on ROM and quad sets. Plan Plan Plan: Due to her fracture, patient is to work on PROM and AROM, and quad sets. No resistive exercises at this point in time. Add in HS and quad stretching to HEP. No forceful movements. Pt. to see physician in a few weeks. Balance/Gait/Functional tests Balance/Special Test Scores TUG Test Time Seconds: 37 Tug Test: >30sec.=impaired mobility 30 Second Chair Rise Test Seconds: 7 WOMAC Total Score: 72 WOMAC Percentage: 25.0000 Goals Goals Goal 1:: LTG: Pt. to be I with HEP. Goal Time Frame: 4-6 Weeks Goal Progress: Progressing Goal 2:: STG: Pt. to have increased L knee ROM to 0-0-120deg. Goal Time Frame: 2-4 Weeks Goal Progress: Progressing Goal 3:: LTG: Pt. to have symmetrical strength between BLEs. Goal Time Frame: 4-6 Weeks Goal Progress: Progressing Goal 4:: LTG: Pt. to ambulate with out AD with normal gait pattern without issues. Goal Time Frame: 4-6 Weeks Goal Progress: Goal Met Goal 5:: LTG: Pt. to negotiate 1 [address] stairs with1 HR with reciprocal pattern. Goal Time Frame: 4-6 Weeks Goal Progress: Progressing Goal 6:: LTG: pt. to complete TUG with less than 10 seconds without use of AD. Goal Time Frame: 4-6 Weeks Goal Progress: Progressing Anticipated Interventions Anticipated Interventions Patient/Client Instruction: Educate patient on: Condition, Plan of Care, Risk Factors and Benefits of Fitness Program For the Purpose of:: To improve decision making, To facilitate caregiver knowledge, To improve self management, To prevent re-injury and To improve ability to perform tasks related to life management Therapeutic Exercise to Include: Strength training, Endurance training, Balance training, Coordination, Flexibilty training, Passive ROM and Active ROM For the Purpose of:: To decrease pain, To decrease swelling/inflammation, To increase ROM, To improve nutrient delivery to tissue, To increase oxygenation perfusion, To improve muscle performance and motor function and To improve ability to perform ADL's Manual Therapy Techniques to Include: Mobilization, Passive ROM and Soft tissue mobilization For the Purpose of:: To increase ROM, To improve nutrient delivery to tissue, To increase oxygenation perfusion, To improve muscle performance and motor function, To improve ability to perform ADL's, To improve health of tissue, To decrease soft tissue restriction and To increase flexibility/ROM Cryotherapy (ice pack, ice massage): Yes Vasopneumatic device: Yes For the Purpose of:: To decrease pain, To decrease swelling/inflammation and To increase ROM Re-Evaluation Ending Re-evaluation ending: Please do not hesitate to contact me at [phone] by phone or if you have questions or concerns regarding this new plan of care! Sincerely, Pravin Higgins DPT
== END 2024-09-26 19:00 | disposition home or self-care (01) ==
LOC: PT 15:00
PROVIDERS: PCP Internal Medicine; Referring Provider Physician Assistant Surgical; Visit Provider Physician Assistant Surgical
DX: Z96.652 Presence of left artificial knee joint (principal); M17.11 Unilateral primary osteoarthritis, right knee; Z47.1 Aftercare following joint replacement surgery
CPT/HCPCS: 97016; 97110; 97140; 97161; 97530

== ENCOUNTER 2024-09-30 10:33 | Outpatient (RCR) | payer MEDICARE, OTHER, SELFPAY | END 2024-10-02 23:59 | LOC: NS 10:33 | PROVIDERS: PCP Internal Medicine; Referring Provider Internal Medicine; Visit Provider Internal Medicine | DX: Z71.3 Dietary counseling and surveillance (principal); E11.9 Type 2 diabetes mellitus without complications | CPT/HCPCS: 97802 ==

== ENCOUNTER → 2024-11-01 | Outpatient (CLI) | payer MEDICARE, OTHER, SELFPAY ==
[2024-11-01 10:51] LABS: AST(SGOT) 17 U/L (<=31); Alanine Aminotransfer ALT/SGPT 19 U/L (<=34); Albumin, Serum 4.3 g/dL (3.4-4.8); Alkaline Phosphatase 80 U/L (35-104); Bilirubin, Direct 0.12 mg/dL (0.00-0.30); Cholesterol 232 mg/dL (<=200); Globulin 2.9 g/dL (2.2-4.2); Low Density Lipoprotein Calc. 151 mg/dL; Triglycerides 119 mg/dL; Very Low Density Lipoprotein 24 mg/dL (5-40); cholesterol:hdl ratio screen 4.08
== END | disposition home or self-care (01) ==
LOC: LAB 09:02
PROVIDERS: PCP Internal Medicine; Referring Provider Student in an Organized Health Care Education/Training Program; Visit Provider Student in an Organized Health Care Education/Training Program
DX: E78.5 Hyperlipidemia, unspecified (principal)
CPT/HCPCS: 36415; 80061; 80076

== ENCOUNTER 2024-11-05 10:20 | Outpatient (RCR) | payer MEDICARE, OTHER, SELFPAY | END 2024-12-02 23:59 | LOC: NS 10:20 | PROVIDERS: PCP Internal Medicine; Referring Provider Internal Medicine; Visit Provider Internal Medicine | DX: Z71.3 Dietary counseling and surveillance (principal); E11.9 Type 2 diabetes mellitus without complications | CPT/HCPCS: 97803 ==

== ENCOUNTER → 2025-01-08 | Outpatient (CLI) | payer MEDICARE, OTHER, SELFPAY | END | disposition home or self-care (01) | LOC: MTLAB 09:06 | PROVIDERS: PCP Internal Medicine; Referring Provider Specialist; Visit Provider Specialist | DX: Z79.899 Other long term (current) drug therapy (principal) | CPT/HCPCS: 36415; 82565 ==

== ENCOUNTER → 2025-02-02 | Outpatient (CLI) | payer MEDICARE, OTHER, SELFPAY ==
[2025-02-02 11:40] LABS: Hematocrit 43.6 % (37-47); Hemoglobin 15.1 g/dL (12.0-15.0); Immature Granulocytes Count 0.010 X10^3/uL (0.0-0.0); Mean Corp Hgb Conc 34.6 g/dL (32-36); Mean Corpuscular Volume 92.6 fL (81-99); Mean Platelet Vol. 10.0 fl (6.2-12.0); NRBC Flagged by Analyzer 0 % (0-5); Platelet Count 382 K/mm3 (150-450); RBC Distribution Width CV 12.0 % (11.6-14.6); RBC Distribution Width SD 41.1 fl (35.1-43.9); Red Blood Count 4.71 M/mm3 (4.2-5.4); White Blood Count 6.7 K/mm3 (4.4-11.0)
[2025-02-02 12:24] LABS: AST(SGOT) 19 U/L (<=31); Alanine Aminotransfer ALT/SGPT 22 U/L (<=34); Albumin, Serum 4.3 g/dL (3.4-4.8); Alkaline Phosphatase 70 U/L (35-104); Anion Gap 12 (5-15); BUN 18 mg/dL (4-19); BUN/Creat Ratio 28.7 RATIO (10-20); Calcium,Total 9.2 mg/dL (7.6-11.0); Carbon Dioxide 23.2 mmol/L (21.0-32.0); Chloride 105 mmol/L (98-108); Cholesterol 113 mg/dL (<=200); Globulin 2.6 g/dL (2.2-4.2); Glucose 164 mg/dL (70-99); Low Density Lipoprotein Calc. 32 mg/dL; Potassium 4.1 mmol/L (3.3-5.1); Pro- Brain NATRIURETIC PEPTIDE 70 pg/mL (<=1800); Triglycerides 131 mg/dL; Very Low Density Lipoprotein 26 mg/dL (5-40); cholesterol:hdl ratio screen 1.95
== END | disposition home or self-care (01) ==
LOC: LAB 11:14
PROVIDERS: PCP Internal Medicine; Referring Provider Student in an Organized Health Care Education/Training Program; Visit Provider Student in an Organized Health Care Education/Training Program
DX: R53.83 Other fatigue (principal); R06.02 Shortness of breath; E78.5 Hyperlipidemia, unspecified
CPT/HCPCS: 36415; 80053; 80061; 83880; 85025

== ENCOUNTER 2025-02-10 10:50 | Outpatient (RCR) | payer MEDICARE, OTHER, SELFPAY | END 2025-03-04 23:59 | LOC: NS 10:50 | PROVIDERS: PCP Internal Medicine; Referring Provider Internal Medicine; Visit Provider Internal Medicine | DX: Z71.3 Dietary counseling and surveillance (principal); E11.9 Type 2 diabetes mellitus without complications | CPT/HCPCS: 97803 ==

== ENCOUNTER → 2025-02-12 | Outpatient (CLI) | payer MEDICARE, OTHER, SELFPAY ==
--- OUTSIDE RECORDS SUMMARY | 2025-02-12 07:26 | XMS RPT_ITS | CCD ---
Author Organization [facility] Care Team Providers Care Cardiovascular Tech Name Role Phone Jayeneelam Sebasaustinjenelle Unavailable Unavailable PROVIDER, UNKNOWN Unavailable Unavailable GENTRY PLASCENCIA Unavailable Unavailable Dr. Parish Plascencia Chi Primary Care Provider Lola MANAGER MUTUAL FUND, MANAGER MUTUAL FUND-C Sierra E Attending Provider Lola MANAGER MUTUAL FUND, MANAGER MUTUAL FUND-C Sierra E Referring Provider Lola MANAGER MUTUAL FUND, MANAGER MUTUAL FUND-C Sierra E Other Provider Dr. Parish Plascencia Chi Referring Provider Dr. Conrad Arias Attending Provider Dr. Parish Plascencia Chi Primary Care Provider Lola MANAGER MUTUAL FUND, MANAGER MUTUAL FUND-C Sierra E Attending Provider Lola MANAGER MUTUAL FUND, MANAGER MUTUAL FUND-C Sierra E Referring Provider Lola MANAGER MUTUAL FUND, MANAGER MUTUAL FUND-C Sierra E Other Provider Dr. Parish Plascencia Chi Primary Care Provider Lola MANAGER MUTUAL FUND, MANAGER MUTUAL FUND-C Sierra E Attending Provider Lola MANAGER MUTUAL FUND, MANAGER MUTUAL FUND-C Sierra E Referring Provider [phone] Lola MANAGER MUTUAL FUND, MANAGER MUTUAL FUND-C Sierra E Other Provider Roof MANAGER MUTUAL FUND, MANAGER MUTUAL FUND-C Gurinder Morillo Attending Provider Dr. Parish Plascencia Chi Primary Care Provider Lola MANAGER MUTUAL FUND, MANAGER MUTUAL FUND-C Sierra E Attending Provider Lola MANAGER MUTUAL FUND, MANAGER MUTUAL FUND-C Sierra E Referring Provider [phone] Lola MANAGER MUTUAL FUND, MANAGER MUTUAL FUND-C Sierra E Other Provider Dr. Conrad Arias Attending Provider Dr. Parish Plascencia Chi Referring Provider Dr. Parish Plascencia Chi Primary Care Provider Lola MANAGER MUTUAL FUND, MANAGER MUTUAL FUND-C Sierra E Attending Provider Lola MANAGER MUTUAL FUND, MANAGER MUTUAL FUND-C Sierra E Referring Provider [phone] Lola MANAGER MUTUAL FUND, MANAGER MUTUAL FUND-C Sierra E Other Provider Dr. Parish Plascencia Chi Primary Care Provider Lola MANAGER MUTUAL FUND, MANAGER MUTUAL FUND-C Sierra E Attending Provider Lola MANAGER MUTUAL FUND, MANAGER MUTUAL FUND-C Sierra E Referring Provider Lola MANAGER MUTUAL FUND, MANAGER MUTUAL FUND-C Sierra E Other Provider Dr. Parish Plascencia Chi Primary Care Provider Lola MANAGER MUTUAL FUND, MANAGER MUTUAL FUND-C Sierra E Attending Provider Lola MANAGER MUTUAL FUND, MANAGER MUTUAL FUND-C Sierra E Referring Provider [phone] Lola MANAGER MUTUAL FUND, MANAGER MUTUAL FUND-C Sierra E Other Provider Dr. Parish Plascencia Chi Primary Care Provider Lola MANAGER MUTUAL FUND, MANAGER MUTUAL FUND-C Sierra E Attending Provider Lola MANAGER MUTUAL FUND, MANAGER MUTUAL FUND-C Sierra E Referring Provider Lola MANAGER MUTUAL FUND, MANAGER MUTUAL FUND-C Sierra E Other Provider Dr. Parish Plascencia Chi Primary Care Provider Lola MANAGER MUTUAL FUND, MANAGER MUTUAL FUND-C Sierra E Attending Provider Lola MANAGER MUTUAL FUND, MANAGER MUTUAL FUND-C Sierra E Referring Provider Lola MANAGER MUTUAL FUND, MANAGER MUTUAL FUND-C Sierra E Other Provider Dr. Parish Plascencia Chi Referring Provider Dr. Dragan Webb Attending Provider Temo, Dr. Parish Borges Primary Care Provider TEMO GORMAN, DR RINALDI Primary Care Physician Roof MANAGER MUTUAL FUND, MANAGER MUTUAL FUND-C Gurinder Morillo Referring Provider Dr. Angela Vargas Attending Provider TEMO CALVILLO, DR. RINALDI Primary Care Unavailabl alonso BENJAMIN DO, DAVID Attending Unavailable TEMO CALVILLO, DR. RINALDI Primary Care Unavailabl e SOURAV GARCIA, DAVID Admitting Unavailable SOURAV GARCIA, DAVID Attending Unavailable SOURAV GARCIA, DAVID Consulting Unavailable Dr. Parish Plascencia Chi Primary Care Provider Temo, Dr. Parish Borges Referring Provider Dr. Delta Sahu Attending Provider [phone] Dr. Delta Sahu Primary Care Provider [phone] Luis Alberto, Dr. Walters Referring Provider [phone] Keri MANAGER MUTUAL FUND, MANAGER MUTUAL FUND-C Gurinder Morillo Attending Provider Dr. Delta Sahu Primary Care Provider [phone] Dr. Delta Sahu Attending Provider [phone] Dr. Delta Sahu Referring Provider [phone] Dr. Parish Plascencia Chi Referring Provider Roof MANAGER MUTUAL FUND, MANAGER MUTUAL FUND-C Gurinder Morillo Attending Provider Uzma MANAGER MUTUAL FUND, MANAGER MUTUAL FUND-C Meg Attending Provider Uzma MANAGER MUTUAL FUND, MANAGER MUTUAL FUND-C Meg Referring Provider Uzma MANAGER MUTUAL FUND, MANAGER MUTUAL FUND-C Meg Other Provider Dr. Berhane Mcintosh Attending Provider Dr. Delta Sahu Primary Care Provider [phone] Dr. Delta Sahu Attending Provider [phone] Dr. Delta Sahu Referring Provider [phone] Bertrand Schroeder Attending Provider 1([facility])[phone] Laura Carpio Attending Provider 1([facility])[phone] Benjamin, Dr. Hernandez Referring Provider 1([facility])[phone] Benjamin, Dr. Hernandez Other Provider 1([facility])[phone] Heather Forrest Other Provider 1([facility])[phone] Leroy Piña Other Provider 1([facility])[phone] Janae Santo Other Provider Dr. Janae Gaston Other Provider Dr. Genie Phillips Other Provider Unavailable Dr. Florence Solorzano Attending Provider 1([facility])[phone] Dr. Florence Solorzano Other Provider 1([facility])[phone] Alina Ireland Other Provider Dr. Rajiv Bose Other Provider Unavailabl e Dr. Rajiv Hayes Other Provider Unavailable MD Barry Lau Other Provider Dr. Angela Rockwell Other Provider Dr. Zayda Sahu Other Provider 1([facility])[phone] Russ Erwin Other Provider 1([facility])[phone] Kelvin Hernadez Other Provider Dr. Michael Rowell Other Provider 1([facility])[phone] Imelda Carvajal Other Provider Dr. Karthik Moreira Other Provider 1([facility])[phone] Che Sepulveda Other Provider 1([facility])[phone] Malachi Butler Other Provider 1([facility])[phone] Dr. Reji Montano Other Provider 1([facility])[phone] Conrad Eubanks Other Provider Dr. Liz Zeng Other Provider Dr. Manish Gonzalez Other Provider 1([facility])[phone] Alireza MANAGER MUTUAL FUND, MANAGER MUTUAL FUND-C Emilie Other Provider Darrel HALL, Gurinder Chapman Other Provider Unavailable Dr. Delta Sahu Primary Care Provider [phone] Dr. Delta Sahu Attending Provider [phone] Dr. Delta Sahu Referring Provider [phone] Dr. Delta Sahu Primary Care Provider [phone] Dr. Laura Carpio Attending Provider Sourav, Dr. Hernandez Referring Provider Benjamin, Dr. Hernandez Other Provider Dr. Heather Forrest Other Provider Dr. Leroy Piña Other Provider Dr. Janae Santo Other Provider Dr. Janae Gaston Other Provider Dr. Genie Phillips Other Provider Unavailable Dr. Florence Solorzano Attending Provider Dr. Florence Solorzano Other Provider Dr. Alina Ireland Other Provider Dr. Rajiv Bose Other Provider Unavailabl e Dr. Rajiv Hayes Other Provider Unavailable MD Barry Lau Other Provider Dr. Angela Rockwell Other Provider Dr. Zayda Sahu Other Provider Dr. Russ Erwin Other Provider Dr. Kelvin Hernadez Other Provider Dr. Michael Rowell Other Provider Dr. Imelda Carvajal Other Provider Dr. Karthik Moreira Other Provider Dr. Che Sepulveda Other Provider Kotsonis, Dr. Malachi F Other Provider Dr. Reji Montano Other Provider Dr. Conrad Eubanks Other Provider Dr. Liz Zeng Other Provider Dr. Manish Gonzalez Other Provider Alireza MANAGER MUTUAL FUND, MANAGER MUTUAL FUND-C Emilie Other Provider Gurinder Anaya Other Provider Unavailable Dr. Delta Sahu Attending Provider Dr. Delta Sahu Referring Provider Dr. Dragan Webb Attending Provider Dr. Delta Sahu Primary Care Provider Dr. David Benjamin Referring Provider Dr. Laura Carpio Attending Provider Dr. Delta Sahu MD Primary Care Provider Dr. Dragan Sheets MD Attending Provider Dr. Dragan Sheets MD Referring Provider Dr. Delta Sahu MD Referring Provider Dr. Corona Batres MD Attending Provider Dr. Kali Cantu MD Attending Provider Dr. Delta Sahu MD Attending Provider Dr. Corona Batres MD Referring Provider Gavin De La Cruz Attending Provider Dr. Christopher Kruger MD Attending Provider [phone] Dr. Christopher Kruger MD Referring Provider [phone] DELTA SAHU MD Primary Care Physician Dr. Delta Sahu MD Primary Care Provider Dr. Monico Zavaleta DO Attending Provider [facility], Dr. Marc Emergency Provider Carrie GORMAN, Dr. Malachi Dubose Attending Provider Genaro Lemus Attending Provider Eshenaur PA-C, Ray Attending Provider Eshenaujan PA-C, Ray Referring Provider Saskia GORMAN, Dr. Lara Other Provider [phone] Dr. Carla Hay DO Attending Provider Eshenaur PA-C, Ray Attending Provider Eshenaujan PA-C, Ray Referring Provider Saskia GORMAN, Dr. Lara Other Provider Torey GORMAN, Dr. Christopher Verduzco Attending Provider Luis Alberto GORMAN, Dr. Walters Primary Care Provider Luis Alberto GORMAN, Dr. Walters Attending Provider Luis Alberto GORMAN, Dr. Walters Referring Provider Medardo GORMAN, Dr. Jeter Attending Provider LUIS ALBERTO GORMAN, DELTA Means Primary Care Unavailab Teddy GORMAN, DR CHRISTOPHER Verduzco Attending DELTA Charles MD Primary Care Unavailab Teddy GORMAN, DR CHRISTOPHER Verduzco Attending Mohan Guerrero MD, DELTA Means Primary Care Unavailab Teddy GORMAN, DR CHRISTOPHER Verduzco Attending Mohan Espinal MD, DR CHRISTOPHER Verduzco Attending [facility] Consulting Unavailable DELTA SAHU MD Primary Care Mohan Espinal MD, DR CHRISTOPHER Verduzco Admitting DELTA Charles MD Primary Care Unavailab Teddy GORMAN, DR CHRISTOPHER Verduzco Attending DELTA Charles MD Primary Care Unavailab Teddy GORMAN, DR CHRISTOPHER Verduzco Attending Uzairab juan Sahu MD, Dr. Walters Primary Care Provider Luis Alberto GORMAN, Dr. Walters Referring Provider [phone] Luis Alberto GORMAN, Dr. Walters Attending Provider [phone] Uzma MANAGER MUTUAL FUND-Meg Alexander Attending Provider Luis Alberto GORMAN, Dr. Walters Primary Care Provider Luis Alberto GORMAN, Dr. Walters Attending Provider [phone] Luis Alberto GORMAN, Dr. Walters Referring Provider [phone] Eshenaur PA-C, Ray Attending Provider Eshenaur PA-C, Ray Referring Provider Saskia GORMAN, Dr. Lara Other Provider Luis Alberto GORMAN, Dr. Walters Primary Care Provider Luis Alberto GORMAN, Dr. Walters Referring Provider [phone] Luis Alberto GORMAN, Dr. Walters Attending Provider [phone] Luis Alberto GORMAN, Dr. Walters Primary Care Provider Luis Alberto GORMAN, Dr. Walters Referring Provider [phone] Ivana HALL Genaro Attending Provider [phone] Demsharon HALL, Genaro Referring Provider [phone] Luis Alberto GORMAN, Dr. Walters Primary Care Physician Luis Alberto GORMAN, Dr. Walters Attending Physician [phone] Luis Alberto GORMAN, Dr. Walters Referring Provider [phone] Meg Fishman Attending Physician Erik PA-C, Ray Attending Physician Saskia GORMAN, Dr. Lara Nurse Practitioner Ivana HALL, Genaro Attending Physician [phone] Luis Alberto GORMAN, Dr. Walters Primary Care Physician Luis Alberto GORMAN, Dr. Walters Attending Physician Christopher Kruger Referring Unavailable Oleghe, Efewongbe Primary Care Unavailable Christopher Kruger Attending Unavailable Oleghe, Efewongbe Referring Unavailable Oleghe, Efewongbe Primary Care Unavailable Oleghe, Efewongbe Attending Unavailable Carla Hay Attending Unavailabl e Oleghe, Efewongbe Referring Unavailable Oleghe, Efewongbe Primary Care Unavailable Genaro Heath Attending Unavailable Rosa Heathyler Referring Unavailable Oleghe, Efewongbe Primary Care Unavailable Oleghe, Efewongbe Referring Unavailable Oleghe, Efewongbe Attending Unavailable Oleghe, Efewongbe Primary Care Unavailable Oleghe, Efewongbe Primary Care Unavailable Christopher Kruger Attending Unavailable Monico Zavaleta Attending UnavailMalachi Oh Admitting Unavailable Oleghe, Efewongbe Primary Care Unavailable Corona Batres Attending Unavailable Corona Batres Referring Unavailable Oleghe, Efewongbe Primary Care Unavailable Genaro Heath Attending Unavailable Oleghe, Efewongbe Referring Unavailable Oleghe, Efewongbe Primary Care Unavailable Dragan Sheets Attending Unavailable Dragan Sheets Referring Unavailable Oleghe, Efewongbe Primary Care Unavailable Oleghe, Efewongbe Attending Unavailable Oleghe, Efewongbe Primary Care Unavailable iWlber Blanc Attending Unavailable Wilber Blanc Referring Unavailable Christopher Kruger Consulting Unavailable Oleghe, Efewongbe Primary Care Unavailable Oleghe, Efewongbe Attending Unavailable Oleghe, Efewongbe Referring Unavailable Oleghe, Efewongbe Primary Care Unavailable Oleghe, Efewongbe Referring Unavailable Oleghe, Efewongbe Attending Unavailable Oleghe, Efewongbe Primary Care Unavailable Oleghe, Efewongbe Referring Unavailable Oleghe, Efewongbe Attending Unavailable Oleghe, Efewongbe Primary Care Unavailable Christopher Kruger Attending Unavailable Christopher Kruger Referring Unavailable Oleghe, Efewongbe Primary Care Unavailable Oleghe, Efewongbe Referring Unavailable Oleghe, Efewongbe Attending Unavailable Oleghe, Efewongbe Primary Care Unavailable Oleghe, Efewongbe Referring Unavailable Oleghe, Efewongbe Attending Unavailable Oleghe, Efewongbe Primary Care Unavailable Oleghe, Efewongbe Referring Unavailable Meg Gusman NP Attending Unavailable Oleghe, Efewongbe Primary Care Unavailable Oleghe, Efewongbe Referring Unavailable Oleghe, Efewongbe Attending Unavailable Oleghe, Efewongbe Primary Care Unavailable Christopher Lema Attending Unavailable Oleghe, Efewongbe Referring Unavailable Oleghe, Efewongbe Primary Care Unavailable Oleghe, Efewongbe Referring Unavailable Oleghe, Efewongbe Attending Unavailable Oleghe, Efewongbe Primary Care Unavailable Oleghe, Efewongbe Referring Unavailable Oleghe, Efewongbe Primary Care Unavailable Oleghe, Efewongbe Attending Unavailable Oleghe, Efewongbe Referring Unavailable Oleghe, Efewongbe Primary Care Unavailable Oleghe, Efewongbe Attending Unavailable Oleghe, Efewongbe Referring Unavailable Gavin De La Cruz Attending Unavailable Oleghe, Efewongbe Primary Care Unavailable Corona Batres Attending Unavailable Oleghe, Efewongbe Referring Unavailable Oleghe, Efewongbe Primary Care Unavailable Oleghe, Efewongbe Referring Unavailable Oleghe, Efewongbe Primary Care Unavailable Oleghe, Efewongbe Attending Unavailable Oleghe, Efewongbe Primary Care Unavailable Kali Cantu Attending Unavailable Malachi Butler Attending Unavailable Oleghe, Efewongbe Primary Care Unavailable Oleghe, Efewongbe Attending Unavailable Oleghe, Efewongbe Primary Care Unavailable Dragan Sheets Attending Unavailable Oleghe, Efewongbe Referring Unavailable Oleghe, Efewongbe Primary Care Unavailable Corona Batres Attending Unavailable Oleghe, Efewongbe Referring Unavailable Oleghe, Efewongbe Primary Care Unavailable Oleghe, Efewongbe Attending Unavailable Oleghe, Efewongbe Referring Unavailable Oleghe, Efewongbe Primary Care Unavailable Allergies Allergy Classification Reported Allergen(s) Allergy Type Date of Onset Reaction(s) Facility (20 sources) Codeine; Translations: [codeine] Drug Allergy 2 roaring sounds, hives, roaring sounds, hives, headache, ringing in ears, rash [facility] (20 sources) Penicillins; Translations: [Penicillins] Allergy to substance 2 hives [facility] (3 sources) Penicillin; Translations: [penicillins] Drug Allergy rash [facility] (1 source) Codeine Drug Allergy 5 [facility] Repository Medications Current Medications Medication Drug Class(es) Dates Sig (Normalized) Sig (Original) acetaminophen 1000 mg oral tablet (17 sources) Start: 06-25-2024 Tylenol Dose : 1,000 mg = 2 tab(s), Oral, q8h, 0 Refill(s) Start Date: 06/25/24 Status: Ordered Repeat number: 1 Start: 06-12-2023 take 1 tablet by mouth every t welve hours as needed for pain acetaminophen 325 mg / HYDRO codone bitartrate 5 mg oral tablet (20 sources) Opioid Agonist Start: 09-02-2024 Start: 03-01-2023 End: 04-28-2024 Hydrocodone-Acetaminophen 5- 325 mg tablet Discontinued 1 {tbl} PO EVERY 6 HOURS 28 7 0 March 01, 2023 April 28, 2024 2:42pm Spinal stenosis of lumbar region Spinal stenosis, lumbar region without neurogenic claudication Start: 03-01-2023 take 1 tablet by kavon th every six hours Hydrocodone-Acetaminophen Active 1 TABLE T PO EVERY 6 HOURS 28 7 March 01, 2023 Start: 09-14-2022 End: 03-01-2023 Hydrocodone-Acetaminophen 5- 325 mg tablet Discontinued 1 {tbl} PO AT BEDTIME as needed for pain 0 November 08, 2022 12:00am March 01, 2023 9:57am Start: 09-14-2022 End: 03-01-2023 take 1 tablet by mouth at bedtime Hydrocodone-Acetaminophen Discontinued 1 TABLET PO AT BEDTIME November 08, 2022 12:00am March 01, 2023 9:57am Start: 02-08-2022 End: 02-15-2022 take 1 tablet by mouth every six hours as needed for pain [place] 325- 5 mg oral tablet Dose = 1 tab(s), Oral, q6h, PRN for pain, X 7 day(s), # 28 tab(s), 0 Refill(s), Pharmacy: [id number], Cervical spondylosis, 170.2, cm, 02/08/22 8:56:00 EST, Height, 140.5 Start Date: 02/08/22 Stop Date: 02/15/22 Status: Ordered Start: 01-25-2022 take 1 tablet by kavon th once daily as needed for pain acetaminophen-hydrocodone 325 mg-5 mg or al tablet Dose = 1 tab(s), Oral, Daily, PRN for pain, 0 Refill(s) Start Date: 01/25/22 Status: Ordered Start: 05-26-2019 End: 05-29-2019 Hydrocodone-Acetaminophen 1 TABLET tablet Discontinued 1 {tbl} PO EVERY 6 HOURS NEEDED as needed for Pain 12 3 May 26, 2019 May 28, 2019 12:00am May 29, 2019 12:07am Closed bimalleolar fracture Start: 05-26-2019 End: 05-29-2019 take 1 tablet by mouth every six hours as needed Hydrocodone-Acetaminophen Discontinued 1 TABLET PO EVERY 6 HOURS NEEDED 12 3 May 26, 2019 May 29, 2019 12:07am aspirin 81 mg delayed release oral tablet (20 sources) Platelet Aggregation Inhibitor, Nonsteroidal Anti-inflammatory Drug Start: 07-08-2024 End: 07-31-2024 Start: 06-12-2023 End: 07-02-2024 take 1 tablet by mouth once daily Aspirin 81 mg tablet,delayed release (DR/EC) Discontinued 81 mg PO DAILY 90 3 June 12, 2023 12:00am July 02, 2024 11:56am Start: 09-14-2022 End: 03-01-2023 Aspirin (Adult Low Dose Aspi rin) 81 mg tablet,delayed release (DR/EC) Discontinued 81 mg PO DAILY September 14, 2022 12:00am March 01, 2023 9:57am Start: 06-24-2018 End: 11-17-2020 take 1 tablet by mouth once daily Aspirin 81 mg tablet,delayed release (DR/EC) Discontinued 81 mg PO DAILY 30 0 June 24, 2018 12:00am November 17, 2020 2:55pm Blood-Glucose Meter (Accu-Ch ek Guide Glucose Meter) [facility] [place] (12 sources) Start: 11-14-2024 Blood-Glucose Meter (Accu-Chek Guide Glucose Meter) misc Active 0 .Route 1 0 November 14, 2024 3:38pm Type 2 diabetes mellitus Type 2 diabetes mellitus without complications to be used with glucose monitoring 1 time daily Start: 11-14-2024 End: 11-14-2024 Blood-Glucose Meter (Accu-Ch ek Guide Glucose Meter) misc Discontinued 0 .Route 1 November 14, 2024 11:46am November 14, 2024 3:38pm Type 2 diabetes mellitus Type 2 diabetes mellitus without complications to be used with glucose monitoring 1 time daily Start: 11-13-2024 End: 11-14-2024 Blood-Glucose Meter (Accu-Ch ek Guide Glucose Meter) misc Discontinued 0 .Route 1 November 13, 2024 1:00pm November 14, 2024 11:47am Type 2 diabetes mellitus Type 2 diabetes mellitus without complications to be used with glucose monitoring 4-5 times daily Start: 11-13-2024 End: 11-13-2024 Blood-Glucose Meter (Accu-Ch ek Guide Glucose Meter) misc Discontinued 0 .Route 1 November 13, 2024 12:43pm November 13, 2024 1:00pm Type 2 diabetes mellitus Type 2 diabetes mellitus without complications As directed to check blood glucose daily for type 2 DM Start: 11-12-2024 End: 11-13-2024 Blood-Glucose Meter (Accu-Ch ek Guide Glucose Meter) misc Discontinued 0 .Route 1 November 12, 2024 3:12pm November 13, 2024 12:43pm Type 2 diabetes mellitus Type 2 diabetes mellitus without complications As directed to check blood glucose daily for type 2 DM Start: 11-12-2024 End: 11-12-2024 Blood-Glucose Meter (Accu-Ch ek Guide Glucose Meter) misc Discontinued 0 .Route 1 November 12, 2024 12:00am November 12, 2024 3:12pm As directed to check blood glucose daily for type 2 DM docusate sodium 50 mg / milla osides, retirement 8.6 mg oral tablet (7 sources) Start: 09-02-2024 Start: 06-25-2024 End: 06-28-2024 take 1 tablet by mouth twice daily Senokot S 50 mg-8.6 mg oral tablet Dose = 2 tab(s), Oral, BID, Take until first bowel movement and then as needed., X 3 day(s), # 12 tab(s), 0 Refill(s), Pharmacy: [id number], 170, cm, 06/24/24 14:26:00 EDT, Height, kg, 06/24/24 14:26:00 EDT, Dosing Weight Start Date: 06/25/24 Stop Date: 06/28/24 Status: Ordered Quantity: 12.0 Unit: tab(s) Repeat number: 1 Eligen B12 1000 mcg oral tablet (1 source) Start: 05-28-2024 take 1 tablet by mouth once daily Eligen B12 1000 mcg oral tablet 1 tab(s), Oral, qDay, # 30 tab(s), 0 Refill(s) Start Date: 05/28/24 Status: Ordered Quantity: 30.0 Unit: tab(s) Repeat number: 1 1 ml evolocumab 140 mg/ml auto-injector (11 sources) PCSK9 Inhibitor Start: 07-08-2024 Handicap Placard (5 sources) Start: 09-10-[address] Active 0 .ROUTE .MEDSUPPLY 1 0 September 10, 2024 12:00am Other reduced mobility As directed, length of time 3 years herbal/nutritional product (3 sources) Start: 05-28-2024 herbal/nutriti anthony l product 2 gummies, Oral, Daily, 0 Refill(s) Start Date: 05/28/24 Status: Ordered Repeat number: 1 Start: 05-28-2024 herbal/nutriti onal product 2 gummies, Oral, Daily, 0 Refill(s) Start Date: 05/28/24 Status: Ordered Repeat number: 1 Start: 05-28-2024 herbal/nutriti onal product 2 gummies, Oral, Daily, 0 Refill(s) Start Date: 05/28/24 Status: Ordered Repeat number: 1 magnesium citrate 100 mg oral tablet (1 source) Start: 05-28-2024 magnesium citr ate 100 mg oral capsule Dose : 200 mg = 2 cap(s), Oral, qDay Start Date: 05/28/24 Status: Ordered Repeat number: 1 24 hr mirabegron 50 mg extended release oral tablet (20 sources) beta3-Adrenergic Agonist Start: 10-31-2024 take 1 tablet by mouth once daily Start: 04-29-2024 End: 10-31-2024 take 1 tablet by mouth once daily Mirabegron (Myrbetriq) 25 mg tablet extended release 24 hr Discontinued 25 mg PO daily 30 July 31, 2024 5:11pm October 31, 2024 2:18pm potassium chloride 20 meq extended release oral tablet (20 sources) Start: 09-14-2022 End: 11-08-2022 take 1 tablet by mouth once daily Start: 09-14-2022 End: 11-08-2022 Potassium Chloride 20 mEq ta blet extended release Discontinued meq PO September 14, 2022 12:00am November 08, 2022 11:10am Start: 01-25-2022 Potassium Chlo ride (Eqv-K-Tab) 20 mEq oral tablet, extended release Dose : 20 mEq = 1 tab(s), Oral, TID, Take with food, # 30 tab(s), 0 Refill(s) Start Date: 01/25/22 Status: Ordered Quantity: 30.0 Unit: tab(s) Repeat number: 1 Start: 04-13-2021 End: 01-06-2022 Potassium Chloride (Klor-Con M20) 20 mEq tablet,ER particles/crystals Discontinued 20 meq PO DAILY as needed for supplement April 13, 2021 2:47pm January 06, 2022 7:36am Start: 11-17-2020 End: 04-13-2021 Potassium Chloride (Klor-Con M20) 20 mEq Tablet,Er Particles/Crystals Discontinued 20 meq PO TWICE A DAY November 17, 2020 12:00am April 13, 2021 2:47pm supplement Start: 06-17-2018 End: 08-15-2018 take 1 tablet by mouth once daily Potassium Chloride 20 mEq tablet extended release Discontinued 20 meq PO DAILY June 17, 2018 12:00am August 15, 2018 1:43pm Vitamin C 250 mg oral tablet (1 source) Start: 05-28-2024 Vitamin C 250 mg oral tablet Dose : 250 mg = 1 tab(s), Oral, qDay, # 30 tab(s), 0 Refill(s) Start Date: 05/28/24 Status: Ordered Quantity: 30.0 Unit: tab(s) Repeat number: 1 Vitamin D and K oral tablet (1 source) Start: 05-28-2024 take 1 capsule by mouth once daily Vitamin D and K oral tablet Dose = 2 cap(s), Oral, Daily, 0 Refill(s) Start Date: 05/28/24 Status: Ordered Repeat number: 1 Vitamin D3 (1 source) Start: 05-28-2024 Vitamin D3 Dos e : 50 mcg = 1 tab(s), Oral, Daily, 0 Refill(s) Start Date: 05/28/24 Status: Ordered Repeat number: 1 Vitamin D3 25 mcg (1000 intl units) oral capsule (3 sources) Start: 01-25-2022 Vitamin D3 25 mcg (1000 intl units) oral capsule Dose : 25 mcg = 1 cap(s), Oral, Daily, 0 Refill(s) Start Date: 01/25/22 Status: Ordered Repeat number: 1 Start: 01-25-2022 Vitamin D3 25 mcg (1000 intl units) oral capsule Dose : 25 mcg = 1 cap(s), Oral, Daily, 0 Refill(s) Start Date: 01/25/22 Status: Ordered vitamin e 180 mg oral capsule (16 sources) Start: 05-28-2024 vitamin E 400 intl units oral capsule Dose : 400 International_Unit = 1 cap(s), Oral, Daily, 0 Refill(s) Start Date: 05/28/24 Status: Ordered Repeat number: 1 Start: 12-05-2023 End: 07-02-2024 vitamin E (dl, acetate) Disc ontinued PO DAILY December 05, 2023 12:00am July 02, 2024 11:58am Start: 12-05-2023 vitamin E (dl, acetate) Active PO DAILY December 05, 2023 12:00am Completed/Discontinued Medications Medication Drug Class(es) Dates Sig (Normalized) Sig (Original) acetaminophen 325 mg / oxyCODONE hydrochloride 5 mg oral tablet (20 sources) Opioid Agonist Start: 12-01-2020 End: 12-08-2020 Oxycodone-Acetaminoph en (Percocet) 5-325 mg tablet Discontinued 1 {tbl} PO THREE TIMES A DAY as needed for pain (scale score 7-10) 21 7 0 December 01, 2020 December 07, 2020 12:00am December 08, 2020 12:01am Other acute postprocedural pain Other acute postprocedural pain Start: 11-24-2020 End: 12-01-2020 take 7-10 tablets by mouth every six hours as needed for pain Oxycodone-Acetaminophen (Percocet) 5-325 mg tablet Discontinued 1 {tbl} PO EVERY 6 HOURS as needed for pain (scale score 7-10) 28 7 0 November 24, 2020 November 30, 2020 12:00am December 01, 2020 12:01am Other acute postprocedural pain Other acute postprocedural pain 28 tabs (twenty-eight) amLODIPine 5 mg oral tablet (20 sources) Dihydropyridine Calcium Channel Finn Start: 07-13-2021 End: 08-01-2024 take 1 tablet by mouth once daily Amlodipine 5 mg tablet Discontinued 5 mg PO DAILY 90 June 12, 2023 3:26pm August 01, 2024 4:23pm Start: 05-06-2021 End: 07-13-2021 take 5 mg by mouth once daily Amlodipine 10 mg tablet Discontinued 5 mg PO DAILY May 06, 2021 5:14pm July 13, 2021 10:26am Start: 05-06-2021 End: 07-13-2021 take 5 mg by mouth once daily Amlodipine Discontinued 5 MG PO DAILY May 06, 2021 5:14pm July 13, 2021 10:26am Start: 05-06-2021 End: 05-06-2021 take 1 tablet by mouth once daily Amlodipine 10 mg tablet Discontinued 10 mg PO DAILY May 06, 2021 1:00am May 06, 2021 5:15pm Start: 04-13-2021 End: 05-06-2021 take 1 tablet by mouth once daily Amlodipine 2.5 mg tablet Discontinued 2.5 mg PO DAILY 30 April 13, 2021 3:21pm May 06, 2021 5:03pm Start: 04-13-2021 End: 04-13-2021 take 1 tablet by mouth once daily Amlodipine 5 mg tablet Discontinued 5 mg PO DAILY 1 April 13, 2021 1:00am April 13, 2021 3:22pm Start: 07-19-2018 End: 02-09-2022 take 1 tablet by mouth once daily Amlodipine 10 mg tablet Discontinued 10 mg PO DAILY 90 3 August 16, 2020 5:13pm November 17, 2020 2:55pm Start: 06-24-2018 End: 07-19-2018 take 1 tablet by mouth once daily Amlodipine 5 mg tablet Discontinued 5 mg PO DAILY 30 June 25, 2018 8:54am July 19, 2018 1:27pm Start: 10-09-2017 End: 06-17-2018 take 1 tablet by mouth once daily Amlodipine 10 mg tablet Discontinued 10 mg PO daily October 09, 2017 12:00am June 17, 2018 2:52pm amLODIPine 5 mg / hydroCHLOROthiazide 12.5 mg / olmesartan medoxomil 20 mg oral tablet (20 sources) Thiazide Diuretic, Dihydropyridine Calcium Channel Finn, Angiotensin 2 Receptor Finn Start: 06-17-2018 End: 06-24-2018 Uhpwbzxkcw-Qqelxmiox-Silmlnw id 20-5-12.5 mg tablet Discontinued 1 {tbl} PO DAILY June 17, 2018 12:00am June 24, 2018 10:06am Start: 06-17-2018 End: 06-24-2018 take 1 tablet by mouth once daily Kftarlbcmp-Hmufounqv-Vkvtduwfy Discontin ued 1 TABLET PO DAILY June 17, 2018 12:00am June 24, 2018 10:06am ascorbate calcium (vitamin C ) (15 sources) Start: 12-05-2023 End: 07-02-2024 ascorbate calcium (vitamin C ) Discontinued PO DAILY December 05, 2023 12:00am July 02, 2024 11:55am Start: 12-05-2023 ascorbate calc ium (vitamin C) Active PO DAILY December 05, 2023 12:00am Blood-Glucose Meter (Freesty le Lite Meter) kit (5 sources) Start: 09-10-2024 End: 11-12-2024 Blood-Glucose Meter (Freesty le Lite Meter) kit Discontinued 0 .MEDSUPPLY 1 0 September 10, 2024 12:00am November 12, 2024 2:55pm Type 2 diabetes mellitus with hyperglycemia As directed, check blood glucose daily for type 2 DM Start: 09-10-2024 Blood-Glucose Meter (Freestyle Lite Meter) kit Active 0 .MEDSUPPLY 1 0 September 10, 2024 12:00am Type 2 diabetes mellitus with hyperglycemia As directed, check blood glucose daily for type 2 DM 12 hr buPROPion hydrochloride 150 mg extended release oral tablet (20 sources) Aminoketone Start: 11-08-2020 End: 04-13-2021 take 1 tablet by mouth twice daily Bupropion Hcl 150 mg tablet sustained-release 12 hr Discontinued 150 mg PO TWICE A DAY November 08, 2020 12:00am April 13, 2021 2:44pm mood On Hold: Resume on 11/27/20. 12 hr buPROPion hydrochloride 90 mg / naltrexone hydrochloride 8 mg extended release oral tablet (20 sources) Opioid Antagonist, Aminoketone Start: 01-21-2024 End: 07-02-2024 take 1 tablet by mouth every week, then take 2 tablets by mouth two times weekly in the morning, then take 1 tablet by mouth every week in the evening, then take 3 tablets by mouth two times weekly Naltrexone-Bupropion (Contrave) 8-90 mg tablet extended release Discontinued 2 {tbl} PO TWICE A DAY 360 90 1 April 28, 2024 2:41pm July 02, 2024 11:57am Take 1 tablet daily, Wk 1. BID week 2. 2tabs in AM and 1 tab in PM wk 3 and 2tabs BID week 4. Cholecalciferol (15 sources) Vitamin D Start: 12-05-2023 End: 07-02-2024 cholecalciferol (vitamin D3) (Baby Vitamin D3) Discontinued PO DAILY December 05, 2023 12:00am July 02, 2024 11:56am Start: 12-05-2023 cholecalcifero l (vitamin D3) (Baby Vitamin D3) Active PO DAILY December 05, 2023 12:00am citalopram 20 mg oral tablet (20 sources) Serotonin Reuptake Inhibitor Start: 10-09-2017 End: 04-13-2021 take 1 tablet by mouth once daily Citalopram 20 mg tablet Discontinued 20 mg PO DAILY October 09, 2017 12:00am April 13, 2021 2:45pm antidepressant On Hold: Resume on 11/27/20. clopidogrel 75 mg oral tablet (20 sources) [id number] Platelet Inhibitor Start: 06-24-2018 End: 02-17-2019 take 1 tablet by mouth once daily Clopidogrel (Plavix) 75 mg tablet Discontinued 75 mg PO DAILY 30 3 June 24, 2018 12:00am February 17, 2019 2:12pm diazePAM 5 mg oral tablet (20 sources) Benzodiazepine Start: 11-24-2020 End: 04-13-2021 take 1 tablet by mouth three times daily as needed for muscle spasms Diazepam (Valium) 5 mg tablet Discontinued 5 mg PO THREE TIMES A DAY as needed for spasms 20 0 November 24, 2020 12:00am April 13, 2021 2:45pm 20 tabs (twenty) doxycycline hyclate 100 mg oral capsule (12 sources) Tetracycline-class Drug Start: 06-25-2024 End: 07-29-2024 take 1 capsule by mouth every twelve hours Doxycycline Hyclate 100 mg capsule Discontinued 100 mg PO Q12H July 02, 2024 12:00am July 29, 2024 2:40pm famotidine 20 mg oral tablet (12 sources) Histamine-2 Receptor Antagonist Start: 07-02-2024 End: 10-31-2024 take 1 tablet by mouth once daily Famotidine 20 mg tablet Discontinued 20 mg PO DAILY July 02, 2024 12:00am October 31, 2024 1:48pm Start: 06-25-2024 Pepcid 20 mg o ral tablet Dose : 20 mg = 1 tab(s), Oral, qDay, # 30 tab(s), 0 Refill(s), Pharmacy: [id number], 170, cm, 06/24/24 14:26:00 EDT, Height, kg, 06/24/24 14:26:00 EDT, Dosing Weight Start Date: 06/25/24 Status: Ordered Quantity: 30.0 Unit: tab(s) Repeat number: 1 fluconazole 200 mg oral tablet (20 sources) Azole Antifungal Start: 01-03-2021 End: 04-13-2021 take 2 tablets by mouth once daily Fluconazole (Diflucan) 200 mg tablet Discontinued 400 mg PO DAILY 60 January 03, 2021 12:00am April 13, 2021 2:45pm furosemide 40 mg oral tablet (20 sources) Loop Diuretic Start: 09-14-2022 End: 11-08-2022 take 1 tablet by mouth once daily Furosemide 40 mg tablet Discontinued 40 mg PO DAILY September 14, 2022 3:25pm November 08, 2022 10:27am fluid Start: 01-06-2022 End: 05-28-2024 take 1 tablet by mouth twice daily Furosemide 40 mg tablet Discontinued 40 mg PO TWICE A DAY 180 0 December 31, 2023 9:05am May 28, 2024 9:29am fluid Start: 07-13-2021 End: 01-06-2022 take 1 tablet by mouth once daily as needed Furosemide 40 mg tablet Discontinued 40 mg PO DAILY as needed for fluid July 13, 2021 11:20am January 06, 2022 7:36am Start: 04-13-2021 End: 07-13-2021 take 1 tablet by mouth twice daily Furosemide 40 mg tablet Discontinued 40 mg PO TWICE A DAY April 13, 2021 2:45pm July 13, 2021 11:21am fluid Start: 05-26-2019 End: 04-13-2021 take 80 mg by mouth once daily Furosemide Discontinued 80 MG PO DAILY 180 August 16, 2020 5:13pm November 17, 2020 2:55pm Start: 07-19-2018 End: 04-13-2021 take 2 tablets by mouth once daily Furosemide 40 mg tablet Discontinued 80 mg PO DAILY 180 3 August 16, 2020 5:13pm November 17, 2020 2:55pm Start: 06-24-2018 End: 07-19-2018 Furosemide (Lasix) 40 mg tab let Discontinued 60 mg PO DAILY June 24, 2018 10:04am July 19, 2018 1:26pm Start: 06-17-2018 End: 06-24-2018 take 1 tablet by mouth once daily Furosemide (Lasix) 40 mg tablet Discontinued 40 mg PO DAILY June 17, 2018 2:51pm June 24, 2018 10:08am Start: 10-09-2017 End: 06-17-2018 take 1 tablet by mouth twice daily Furosemide (Lasix) 40 mg tablet Discontinued 40 mg PO TWICE A DAY October 09, 2017 12:00am June 17, 2018 2:53pm hydroCHLOROthiazide 12.5 mg / olmesartan medoxomil 40 mg oral tablet (20 sources) Thiazide Diuretic, Angiotensin 2 Receptor Finn Start: 05-06-2021 End: 12-20-2022 Olmesartan-Hydrochlorothiazi de 40-12.5 mg tablet Discontinued 1 {tbl} PO DAILY 90 November 08, 2022 11:09am December 20, 2022 11:03am Start: 05-06-2021 End: 12-20-2022 take 1 tablet by mouth once daily Olmesartan-Hydrochlorothiazide Discontin ued 1 TABLET PO DAILY November 08, 2022 11:09am December 20, 2022 11:03am Start: 11-08-2020 End: 04-13-2021 Olmesartan-Hydrochlorothiazi de 40-12.5 mg tablet Discontinued 1 {tbl} PO DAILY November 08, 2020 12:00am April 13, 2021 2:47pm bp Start: 11-08-2020 End: 04-13-2021 take 1 tablet by mouth once daily Olmesartan-Hydrochlorothiazide Discontin ued 1 TABLET PO DAILY November 08, 2020 12:00am April 13, 2021 2:47pm Start: 06-24-2018 End: 12-21-2019 Olmesartan-Hydrochlorothiazi de 40-12.5 mg tablet Discontinued 1 {tbl} PO DAILY June 24, 2018 12:00am December 21, 2019 9:14am BP Start: 06-24-2018 End: 12-21-2019 take 1 tablet by mouth once daily Olmesartan-Hydrochlorothiazide Discontin ued 1 TABLET PO DAILY June 24, 2018 12:00am December 21, 2019 9:14am hydrocortisone 25 mg/ml topical cream (18 sources) Corticosteroid Start: 05-03-2023 End: 07-02-2024 Hydrocortisone 2.5 % cream Discontinued 1 NMA TOPICAL TWICE A DAY as needed for rash 03 04May 03, 2023 1:00am July 02, 2024 11:28am levoFLOXacin 500 mg oral tablet (20 sources) Quinolone Antimicrobial Start: 05-19-2021 End: 07-13-2021 take 1 tablet by mouth once daily Levofloxacin 500 mg tablet Discontinued 500 mg PO DAILY 14 18 03May 19, 2021 12:00am July 13, 2021 10:27am Start: 12-29-2020 End: 01-06-2021 take 1 tablet by mouth once daily Levofloxacin 500 mg tablet Discontinued 500 mg PO DAILY 18 03December 29, 2020 12:00am January 06, 2021 11:55am levothyroxine sodium 0.175 mg oral tablet (20 sources) l-Thyroxine Start: 06-17-2018 End: 06-24-2018 take 1 tablet by mouth once daily Levothyroxine 175 mcg tablet Discontinued 175 ug PO DAILY June 17, 2018 12:00am June 24, 2018 10:07am linezolid 600 mg oral tablet (20 sources) Oxazolidinone Antibacterial Start: 01-06-2021 End: 04-13-2021 take 1 tablet by mouth every twelve hours Linezolid 600 mg tablet Discontinued 600 mg PO Q12H 28 14 January 06, 2021 12:00am April 13, 2021 2:46pm Methicillin resistant Staphylococcus aureus infection Methicillin resistant Staphylococcus aureus infection, unspecified site Start: 11-20-2020 End: 04-13-2021 take 1 tablet by mouth twice daily Linezolid (Zyvox) 600 mg tablet Discontinued 600 mg PO TWICE A DAY 14 November 20, 2020 12:00am April 13, 2021 2:46pm pankaj wong (15 sources) Start: 12-05-2023 End: 07-02-2024 lilorenzo wong Discontinued PO D AILY December 05, 2023 12:00am July 02, 2024 11:56am Start: 12-05-2023 lilorenzo wogn Act denisse PO DAILY December 05, 2023 12:00am LORazepam 1 mg oral tablet (15 sources) Benzodiazepine Start: 05-12-2024 End: 07-02-2024 take 1 tablet by mouth twice daily Lorazepam (Ativan) 1 mg tablet Discontinued 1 mg PO TWICE A DAY as needed for claustrophobia 2 May 12, 2024 12:00am July 02, 2024 11:57am Take 1 tablet one hour before the MRI, take 2nd tablet if needed when you arrive for the MRI lovastatin 10 mg oral tablet (20 sources) HMG-CoA Reductase Inhibitor Start: 01-01-2023 End: 01-21-2024 take 1 tablet by mouth once daily in the evening Lovastatin 10 mg tablet Discontinued 10 mg PO EVERY EVENING 30 2 January 01, 2023 12:00am January 21, 2024 11:11am meclizine hydrochloride 25 mg oral tablet (20 sources) Antiemetic Start: 06-20-2018 End: 02-17-2019 take 1 tablet by mouth four times daily as needed for dizziness Meclizine 25 MG tablet Discontinued 25 mg PO 4 TIMES DAILY NEEDED as needed for Dizziness June 20, 2018 12:00am February 17, 2019 2:12pm mecobalamin (13 sources) Start: 01-21-2024 End: 07-02-2024 Mecobalamin (Vitamin B12) 500 mcg tablet,chewable Discontinued ug PO January 21, 2024 1:00am July 02, 2024 11:57am Start: 01-21-2024 Mecobalamin (V itamin B12) 500 mcg tablet,chewable Active ug PO January 21, 2024 1:00am meloxicam 15 mg oral tablet (20 sources) Nonsteroidal Anti-inflammatory Drug Start: 11-02-2022 End: 12-20-2022 Meloxicam 15 mg tablet Discontinued mg PO November 02, 2022 12:00am December 20, 2022 10:58am Start: 11-02-2022 End: 12-20-2022 Meloxicam Discontinued MG PO November 02, 2022 12:00am December 20, 2022 10:58am 24 hr metFORMIN hydrochloride 500 mg extended release oral tablet (8 sources) Biguanide Start: 07-30-2024 End: 10-31-2024 take 1 tablet by mouth twice daily Metformin (Glucophage Xr) 500 mg tablet extended release 24 hr Discontinued 500 mg PO TWICE A DAY 60 July 30, 2024 12:00am October 31, 2024 1:48pm methylPREDNISolone 4 mg oral tablet (9 sources) Corticosteroid Start: 07-29-2024 End: 09-02-2024 take 1 tablet by mouth once Methylprednisolone (Medrol (Chau)) 4 mg tablets,dose pack Discontinued 0 PO per package directions 21 July 29, 2024 12:00am September 02, 2024 11:26am PO PER PKG DIR for 6 days metroNIDAZOLE 500 mg oral tablet (20 sources) Nitroimidazole Antimicrobial Start: 05-23-2021 End: 07-13-2021 take 1 tablet by mouth three times daily Metronidazole 500 mg tablet Discontinued 500 mg PO THREE TIMES A DAY 30 10 May 23, 2021 12:00am July 13, 2021 10:27am Start: 11-25-2020 End: 12-05-2020 take 1 tablet by mouth three times daily Metronidazole 500 mg tablet Discontinued 500 mg PO THREE TIMES A DAY 30 10 November 25, 2020 12:00am December 04, 2020 12:00am December 05, 2020 12:01am mupirocin 0.02 mg/mg topical ointment (11 sources) RNA Synthetase Inhibitor Antibacterial Start: 07-02-2024 End: 07-02-2024 Mupirocin 2 % ointment Discontinued TOPICAL TWICE A DAY July 02, 2024 12:00am July 02, 2024 11:57am olmesartan medoxomil 40 mg oral tablet (20 sources) Angiotensin 2 Receptor Finn Start: 12-20-2022 End: 10-31-2024 take 1 tablet by mouth at bedtime Olmesartan 40 mg tablet Discontinued 40 mg PO AT BEDTIME 90 September 10, 2024 4:55pm October 31, 2024 2:18pm 24 hr oxybutynin chloride 10 mg extended release oral tablet (20 sources) Cholinergic Muscarinic Antagonist Start: 07-02-2024 End: 07-31-2024 take 1 tablet by mouth once daily Oxybutynin Chloride 10 mg tablet extended release 24hr Discontinued 10 mg PO DAILY July 02, 2024 12:00am July 31, 2024 5:11pm Start: 05-07-2023 End: 04-28-2024 take 1 tablet by mouth once daily Oxybutynin Chloride 10 mg tablet extended release 24hr Discontinued 10 mg PO DAILY 90 April 10, 2024 2:00pm April 28, 2024 2:48pm Start: 09-18-2022 End: 05-07-2023 take 1 tablet by mouth once daily Oxybutynin Chloride 5 mg tablet extended release 24hr Discontinued 5 mg PO DAILY 90 March 28, 2023 12:06pm May 07, 2023 4:51pm Start: 10-09-2017 End: 06-24-2018 take 1 tablet by mouth once daily Oxybutynin Chloride (Ditropan Xl) 5 mg tablet extended release 24hr Discontinued 15 mg PO daily June 17, 2018 2:51pm June 24, 2018 10:08am oxyCODONE hydrochloride 5 mg oral tablet (12 sources) Opioid Agonist Start: 07-02-2024 End: 07-08-2024 take 1 tablet by mouth every eight hours as needed for pain Oxycodone 5 mg tablet Discontinued 5 mg PO Q8H as needed for pain July 02, 2024 12:00am July 08, 2024 11:38am Start: 06-25-2024 End: 07-02-2024 take 1-2 tablets by mouth every four hours as needed for pain oxyCODONE 5 mg oral tablet ( IMMEDIATE release ) See Instructions, PRN as needed for pain, 1-2 tab(s) Oral q4h, # 42 tab(s), 0 Refill(s), 07/02/24 8:40:00 AM EDT, Pharmacy: [id number], Status post left knee replacement, 170, cm, 06/24/24 14:26:00 EDT, Height, 111.5, kg, 06/24/24 14:26:00 EDT, Dosing Weight Start Date: 06/25/24 Stop Date: 07/02/24 Status: Ordered Quantity: 42.0 Unit: tab(s) Repeat number: 1 Indications: Presence of left artificial knee joint; pravastatin sodium 20 mg oral tablet (20 sources) HMG-CoA Reductase Inhibitor Start: 10-09-2017 End: 06-24-2018 take 1 tablet by mouth once daily Pravastatin 20 mg tablet Discontinued 20 mg PO daily October 09, 2017 12:00am June 24, 2018 10:04am pregabalin 75 mg oral capsule (20 sources) Start: 11-08-2022 End: 12-20-2022 take 1 capsule by mouth once daily Pregabalin 75 mg capsule Discontinued 75 mg PO DAILY November 08, 2022 12:00am December 20, 2022 11:01am Start: 01-25-2022 pregabalin 75 mg oral capsule Dose : 75 mg = 1 cap(s), Oral, BID, 0 Refill(s) Start Date: 01/25/22 Status: Ordered prevagen (15 sources) Start: 01-21-2024 End: 07-02-2024 prevagen Discontinued .Route January 21, 2024 1:00am July 02, 2024 11:58am po qd Start: 01-21-2024 prevagen Activ e .Route January 21, 2024 1:00am po qd Red Beet-Sour Johnson Extract 250-0.5 mg tablet,chewable (15 sources) Start: 12-05-2023 End: 07-02-2024 Red Beet-Sour Johnson Extract 250-0.5 mg tablet,chewable Discontinued {tbl} PO December 05, 2023 12:00am July 02, 2024 11:58am Start: 12-05-2023 Red Beet-Sour Johnson Extract 250-0.5 mg tablet,chewable Active {tbl} PO December 05, 2023 12:00am rivaroxaban 10 mg oral tablet (12 sources) Factor Xa Inhibitor Start: 06-25-2024 End: 07-09-2024 take 1 tablet by mouth once daily Rivaroxaban (Rivaroxaban 10 Mg Tablet) 10 mg tablet Discontinued 10 mg PO DAILY July 02, 2024 12:00am July 08, 2024 11:37am valsartan 160 mg oral tablet (20 sources) Angiotensin 2 Receptor Fnin Start: 10-09-2017 End: 06-17-2018 take 1 tablet by mouth once daily Valsartan 160 mg tablet Discontinued 160 mg PO daily October 09, 2017 12:00am June 17, 2018 2:53pm 24 hr venlafaxine 150 mg extended release oral capsule (20 sources) Serotonin and Norepinephrine Reuptake Inhibitor Start: 07-25-2023 End: 04-28-2024 take 1 capsule by mouth once daily Venlafaxine 150 mg capsule,extended release 24hr Discontinued 150 mg PO DAILY 90 0 December 31, 2023 12:19pm April 28, 2024 2:49pm Start: 05-03-2023 End: 07-25-2023 take 1 capsule by mouth once daily Venlafaxine 75 mg capsule,extended release 24hr Discontinued 75 mg PO DAILY 90 May 03, 2023 4:36pm July 25, 2023 6:01pm Start: 11-02-2022 End: 05-03-2023 take 1 capsule by mouth once daily Venlafaxine 37.5 mg capsule,extended release 24hr Discontinued 0 .ROUTE .COMPLEX 90 December 20, 2022 1:54pm February 01, 2023 10:34am Take 1 capsule by mouth once daily Vit C-Zinc Citrate-Elderberr y ([facility]) 45-3.75-50 mg tablet,chewable (15 sources) Start: 12-05-2023 End: 07-02-2024 Vit C-Zinc Citrate-Elderberr y ([facility]) 45-3.75-50 mg tablet,chewable Discontinued {tbl} PO December 05, 2023 12:00am July 02, 2024 11:58am Start: 12-05-2023 Vit C-Zinc Cit rate-Elderberry ([facility]) 45-3.75-50 mg tablet,chewable Active {tbl} PO December 05, 2023 12:00am vitamin b12 0.5 mg chewable tablet (2 sources) Vitamin B12 Start: 01-21-2024 End: 07-02-2024 Mecobalamin (Vitamin B12) 50 0 mcg tablet,chewable Discontinued ug PO January 21, 2024 1:00am July 02, 2024 11:57am Problems Active Problems Problem Classification Problem Date Documented Da te Episodic/Chronic Abdominal pain (20 sources) Chronic abdominal pain; Translations: [Unspecified abdominal pain] 09-14-2022 Episodic Allergic reactions (2 sources) Allergy status to narcotic agent status; Translations: [Allergy status to penicillin] Onset: 06-24-2024 Episodic Anxiety disorders (20 sources) Mixed anxiety and depressive disorder; Translations: [Anxiety disorder, unspecified] 11-02-2022 Chronic Bacterial infection; unspecified site (20 sources) Methicillin resistant Staphylococcus aureus infection; Translations: [Methicillin resistant Staphylococcus aureus infection, unspecified site] Episodic Cardiac dysrhythmias (20 sources) Palpitations; Translations: [Palpitations] Episodic Chronic ulcer of skin (20 sources) Ulcer of lower extremity; Translations: [Non-pressure chronic ulcer of unspecified part of left lower leg with fat layer exposed] Chronic Complications of surgical procedures or medical care (20 sources) Wound dehiscence; Translations: [Disruption of wound, unspecified, initial encounter] 11-23-2020 Episodic Conditions associated with dizziness or vertigo (20 sources) Dizziness; Translations: [Dizziness and giddiness] 06-21-2018 Episodic Coronary atherosclerosis and other heart disease (20 sources) Coronary arteriosclerosis; Translations: [Atherosclerotic heart disease of [place] coronary artery without angina pectoris] Onset: 06-24-2024 06-12-2023 Chronic Diabetes mellitus without complication (20 sources) Type 2 diabetes mellitus; Translations: [Type 2 diabetes mellitus without complications] Onset: 12-03-2024 07-30-2024 Chronic Diabetes mellitus without complication (5 sources) Diabetes mellitus without complication Diseases of white blood cells (1 source) Other elevated white blood cell count; Translations: [Other elevated white blood cell count] Onset: 06-24-2024 Chronic Disorders of lipid metabolism (20 sources) Hyperlipidemia; Translations: [Hyperlipidemia, unspecified] Onset: 11-07-2024 Chronic E Codes: Natural/environment (9 sources) Animal bite wound; Translations: [Bitten by pig, initial encounter] 05-06-2021 Episodic Comment on above: left anterior leg Essential hypertension (20 sources) Essential hypertension; Translations: [Essential (primary) hypertension] Onset: 01-25-2022 Chronic Comment on above: CONTROLLED WITH MED Fracture of lower limb (20 sources) Bimalleolar fracture of ankle ; Translations: [Displaced bimalleolar fracture of right lower leg, initial encounter for closed fracture] 12-17-2019 Episodic Gangrene (20 sources) Skin necrosis; Translations: [Gangrene, not elsewhere classified] 11-20-2020 Episodic Comment on above: left anterior leg Genitourinary symptoms and ill-defined conditions (20 sources) Urinary incontinence; Translations: [Unspecified urinary incontinence] 10-09-2017 Chronic Genitourinary symptoms and ill-defined conditions (20 sources) Increased frequency of urination; Translations: [Frequency of micturition] 09-15-2022 Episodic Headache; including migraine (20 sources) Headache; Translations: [Headache] 11-24-2020 Episodic Heart valve disorders (15 sources) Mitral valve regurgitation; Translations: [Nonrheumatic mitral (valve) insufficiency] 12-05-2023 Chronic Immunizations and screening for infectious disease (20 sources) Suspected disease caused by 2019-nCoV; Translations: [Suspected COVID-19 virus infection] 04-04-2021 Episodic Inflammatory diseases of female pelvic organs (18 sources) Adhesion of pelvis; Translations: [Female pelvic peritoneal adhesions (postinfective)] 07-22-2024 Episodic Joint disorders and dislocations; trauma-related (20 sources) Dislocation of right ankle joint, initial encounter; Translations: [Dislocation of right ankle joint] 12-17-2019 Episodic Nonspecific chest pain (4 sources) Chest pain; Translations: [Chest pain, unspecified] Onset: 02-08-2022 Episodic Open wounds of extremities (20 sources) Open wound of left lower leg due to animal bite; Translations: [Open bite, left lower leg, initial encounter] 06-16-2021 Episodic Comment on above: pig bite wound left anterior leg Open wounds of head; neck; and trunk (20 sources) Laceration - injury; Translations: [Laceration] 11-09-2020 Episodic Osteoarthritis (1 source) Bilateral primary osteoarthritis of knee; Translations: [Bilateral primary osteoarthritis of knee] Onset: 06-24-2024 Chronic Other acquired deformities (20 sources) Scoliosis of lumbar spine; Translations: [Scoliosis, unspecified] 04-11-2024 Chronic Other acquired deformities (1 source) Varus deformity, not elsewhere classified, left knee; Translations: [Varus deformity, not elsewhere classified, left knee] Onset: 06-24-2024 Episodic Other acquired deformities (1 source) Varus deformity, not elsewhere classified, right knee; Translations: [Varus deformity, not elsewhere classified, right knee] Onset: 06-24-2024 Episodic Other aftercare (1 source) skilled nursing (current) use of opiate analgesic; Translations: [skilled nursing (current) use of opiate analgesic] Onset: 06-24-2024 Episodic Other aftercare (1 source) Other nursing home (current) drug therapy; Translations: [Other terminal manager (current) drug therapy] Onset: 06-24-2024 Episodic Other aftercare (1 source) salvage determiner (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) 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 of anticoagulants; Translations: [salvage determiner (current) use of anticoagulants] Onset: 06-24-2024 Episodic Other aftercare (1 source) Encounter for therapeutic drug level monitoring; Translations: [Encounter for therapeutic drug level monitoring] Onset: 06-24-2024 Episodic Other connective tissue disease (1 source) Artificial knee joint present; Translations: [Presence of left artificial knee joint] Onset: 06-25-2024 Chronic Other connective tissue disease (1 source) Presence of left artificial knee joint; Translations: [Presence of left artificial knee joint] Onset: 06-24-2024 Chronic Other connective tissue disease (20 sources) Pain in left lower limb; Translations: [Pain in left leg] 05-19-2021 Episodic Other connective tissue disease (7 sources) Pain in left leg; Translations: [Pain in limb] Episodic Other connective tissue disease (20 sources) Pain in left arm; Translations: [Pain in left arm] 07-13-2021 Episodic Other connective tissue disease (17 sources) Triggering of digit; Translations: [Trigger finger, unspecified finger] 02-21-2024 Episodic Comment on above: Right ring finger Other connective tissue disease (1 source) Fibromyalgia; Translations: [Fibromyalgia] Onset: 06-24-2024 Episodic Other connective tissue disease (1 source) Arthrodesis status; Translations: [Arthrodesis status] Onset: 06-24-2024 Episodic Other connective tissue disease (2 sources) Trigger finger of right hand; Translations: [Trigger finger, unspecified finger] 02-21-2024 Episodic Comment on above: Right ring finger Other diseases of bladder and urethra (20 sources) Overactive bladder; Translations: [Overactive bladder] 05-03-2023 Chronic Other diseases of bladder and urethra (4 sources) Overactive bladder; Translations: [Hypertonicity of bladder] Onset: 04-28-2024 05-03-2023 Chronic Other diseases of veins and lymphatics (20 sources) Venous insufficiency of leg; Translations: [Venous insufficiency (chronic) (peripheral)] 09-14-2022 Episodic Other diseases of veins and lymphatics (3 sources) Venous insufficiency (chronic) (peripheral); Translations: [Venous (peripheral) insufficiency, unspecified] 09-14-2022 Episodic Other ear and sense organ disorders (20 sources) Hearing disorder; Translations: [Unspecified hearing loss, unspecified ear] 11-24-2020 Chronic Other gastrointestinal disorders (18 sources) Umbilical discharge; Translations: [Other specified symptoms and signs involving the digestive system and abdomen] 05-03-2023 Episodic Other gastrointestinal disorders (5 sources) Other specified symptoms and signs involving the digestive system and abdomen; Translations: [Other symptoms involving abdomen and pelvis] 05-03-2023 Episodic Other gastrointestinal disorders (15 sources) Chronic constipation; Translations: [Other constipation] 07-25-2023 Episodic Other gastrointestinal disorders (20 sources) Dysphagia; Translations: [Dysphagia, unspecified] 04-28-2024 Episodic Other gastrointestinal disorders (20 sources) Constipation; Translations: [Constipation, unspecified] 07-02-2024 Episodic Other injuries and conditions due to external causes (20 sources) Other injury of unspecified body region, initial encounter; Translations: [Bite by animal] Episodic Other injuries and conditions due to external causes (20 sources) Local infection of wound; Translations: [Other injury of unspecified body region, initial encounter] 11-23-2020 Episodic Other injuries and conditions due to external causes (20 sources) Avulsion - injury; Translations: [Other injury of unspecified body region, initial encounter] 11-17-2020 Episodic Other lower respiratory disease (20 sources) Dyspnea; Translations: [Shortness of breath] 02-17-2019 Episodic Other lower respiratory disease (12 sources) Shortness of breath; Translations: [Shortness of breath] Episodic Other nervous system disorders (20 sources) Acute postoperative pain; Translations: [Other acute postprocedural pain] 11-24-2020 Episodic Other nervous system disorders (6 sources) Memory finding; Translations: [Other symptoms and signs involving cognitive functions and awareness] 11-01-2024 Episodic Other non-traumatic joint disorders (15 sources) Pain in left shoulder; Translations: [Left shoulder pain] 07-25-2023 Episodic Other non-traumatic joint disorders (1 source) Osteophyte, left knee; Translations: [Osteophyte, left knee] Onset: 06-24-2024 Episodic Other nutritional; endocrine; and metabolic disorders (20 sources) Body mass index 30+ - obesity; Translations: [Obesity, unspecified] 06-12-2023 Chronic Other nutritional; endocrine; and metabolic disorders (1 source) Obesity, unspecified; Translations: [Obesity, unspecified] 06-12-2023 Chronic Other screening for suspected conditions (not mental disorders or infectious disease) (20 sources) Radiology result abnormal; Translations: [Abnormal findings on diagnostic imaging of other specified body structures] Onset: 06-20-2024 06-06-2024 Chronic Other skin disorders (20 sources) Sebaceous cyst of skin; Translations: [Sebaceous cyst] 12-17-2019 Episodic Phlebitis; thrombophlebitis and thromboembolism (3 sources) History of thromboembolism of vein; Translations: [Personal history of other venous thrombosis and embolism] Onset: 06-24-2024 Episodic Pulmonary heart disease (20 sources) Pulmonary hypertension; Translations: [Pulmonary hypertension, unspecified] Onset: 06-24-2024 Chronic Residual codes; unclassified (2 sources) Sleep apnea; Translations: [Sleep apnea, unspecified] Onset: 02-08-2022 Chronic Residual codes; unclassified (20 sources) Obstructive sleep apnea syndrome; Translations: [Obstructive sleep apnea (adult) (pediatric)] 01-19-2023 Chronic Comment on above: CPAP 4 cmH2O Residual codes; unclassified (3 sources) Obstructive sleep apnea (adult) (pediatric); Translations: [Obstructive sleep apnea (adult)(pediatric)] 01-19-2023 Chronic Residual codes; unclassified (2 sources) Sleep apnea, unspecified; Translations: [Sleep apnea, unspecified] Onset: 06-24-2024 Chronic Residual codes; unclassified (20 sources) Bilateral lower leg edema; Translations: [Localized edema] 03-13-2021 Episodic Residual codes; unclassified (20 sources) Edema; Translations: [Edema, unspecified] 12-17-2019 Episodic Residual codes; unclassified (20 sources) Past history of procedure; Translations: [Other specified postprocedural states] 05-06-2021 Episodic Comment on above: Surgical preparation left anterior leg with incision and drainage and excisional debridement pig bite wound infection abscess with skin necrosis (96 cm2) - 11/19/20 Residual codes; unclassified (20 sources) Other specified health status; Translations: [Failure of outpatient treatment] 11-23-2020 Episodic Residual codes; unclassified (20 sources) Other specified postprocedural states; Translations: [Other postprocedural status] Episodic Residual codes; unclassified (1 source) Edema, unspecified; Translations: [Edema] Episodic Residual codes; unclassified (20 sources) Localized edema; Translations: [Edema] Episodic Residual codes; unclassified (20 sources) Edema of left upper arm; Translations: [Localized edema] 07-13-2021 Episodic Residual codes; unclassified (15 sources) Memory impairment; Translations: [Other amnesia] 07-25-2023 Episodic Residual codes; unclassified (1 source) Family history of stroke; Translations: [Family history of stroke] Onset: 06-24-2024 Episodic Residual codes; unclassified (1 source) Family history of ischemic heart disease and other diseases of the circulatory system; Translations: [Family history of ischemic heart disease and other diseases of the circulatory system] Onset: 06-24-2024 Episodic Respiratory failure; insufficiency; arrest (adult) (1 source) Dependence on supplemental oxygen; Translations: [Dependence on supplemental oxygen] Onset: 06-24-2024 Chronic Respiratory failure; insufficiency; arrest (adult) (20 sources) Acute respiratory failure; Translations: [Acute respiratory failure with hypoxia] 12-17-2019 Episodic Skin and subcutaneous tissue infections (20 sources) Abscess of lower limb; Translations: [Cutaneous abscess of left lower limb] 11-20-2020 Episodic Sprains and strains (20 sources) Disorder of ankle joint; Translations: [Sprain of tibiofibular ligament of right ankle, initial encounter] 12-17-2019 Episodic Systemic lupus erythematosus and connective tissue disorders (20 sources) Lupus erythematosus; Translations: [Systemic lupus erythematosus, unspecified] Chronic Thyroid disorders (5 sources) Nontoxic single thyroid nodule; Translations: [Nontoxic uninodular goiter] Chronic Unclassified (20 sources) Bitten by pig, initial encounter 05-06-2021 Comment on above: left anterior leg Unclassified (12 sources) History of fusion of lumbar spine; Translations: [M54.16 - Radiculopathy, lumbar region,Z98.1 - Arthrodesis status] Unclassified (10 sources) R93.89 - Abnormal findings on diagnostic imaging of other specified body structures Unclassified (11 sources) Pelvic adhesions; Translations: [N73.6 - Female pelvic peritoneal adhesions (postinfective)] Unclassified (10 sources) E11.9 - Type 2 diabetes mellitus without complications Unclassified (1 source) Low back pain, unspecified; Translations: [Low back pain, unspecified] Onset: 04-11-2024 Viral infection (20 sources) Disease caused by 2019-nCoV; Translations: [COVID-19] 04-04-2021 Episodic Past or Other Problems Problem Classification Problem Date Documented Da te Episodic/Chronic Diabetes mellitus without complication (20 sources) Prediabetes; Translations: [Prediabetes] Onset: 05-29-2024 05-29-2024 Episodic Other connective tissue disease (1 source) Trigger finger, unspecified finger; Translations: [Trigger finger, unspecified finger] Onset: 04-28-2024 Episodic Other diseases of kidney and ureters (2 sources) Disorder of kidney and ureter, unspecified; Translations: [Disorder of kidney and ureter, unspecified] Onset: 06-06-2024 Episodic Other gastrointestinal disorders (3 sources) Constipation, unspecified; Translations: [Constipation, unspecified] Onset: 06-24-2024 Episodic Other gastrointestinal disorders (1 source) Dysphagia, unspecified; Translations: [Dysphagia, unspecified] Onset: 06-10-2024 Episodic Other screening for suspected conditions (not mental disorders or infectious disease) (1 source) Encounter for screening mammogram for malignant neoplasm of breast; Translations: [Encounter for screening mammogram for malignant neoplasm of breast] Onset: 05-01-2024 Episodic Residual codes; unclassified (20 sources) History of cardiac catheterization; Translations: [Other specified postprocedural states] Onset: 07-03-2018 04-13-2021 Episodic Comment on above: prox LAD 10-25% sten osis 07/19/18 Residual codes; unclassified (1 source) Asymptomatic menopausal state; Translations: [Asymptomatic menopausal state] Onset: 04-28-2024 Episodic Spondylosis; intervertebral disc disorders; other back problems (20 sources) Spinal stenosis, cervical region; Translations: [Spinal stenosis] Onset: 02-08-2022 Episodic Thyroid disorders (20 sources) Disorder of thyroid gland; Translations: [Disorder of thyroid, unspecified] Onset: 04-28-2024 Episodic Results Test Name Value Interpretation Reference Range Facility Serum Creatinine AND GFRon 1 03-10-2024 Creatinine [Mass/Vol] 0.78 mg/dL Normal 0.70-1.20 [facility] Comment on above: Performed By: #### L 501.1105 ####[facility] [address] [place], [place], [id number] GFR/1.73 sq M.predicted among non-blacks MDRD (S/P/Bld) [Vol rate/Area] 79 mL/min/{1.73_m2} Normal >60 [facility] Comment on above: Result Comment: mL/m in/1.73m2 CKD-EPI Creatinine Equation (2020) Performed By: #### L 501.1105 ####[facility] [address] [place], [place], [id number] Bilirubin directOrdered By: Genaro murray 11-01-2024 Bilirubin.direct [Mass/Vol] 0.12 mg/dL 0.00-0.30 [facility] Bilirubin, totalOrdered By: Genaro Heath on 11-01-2024 Bilirubin [Mass/Vol] 0.34 mg/dL 0.00-1.30 [facility] Calculated very low density lipoprotein (VLDL) cholesterol measurementOrdered By: Genaro Heath on 11-01-2024 Calculated very low density lipoprotein (VLDL) cholesterol measurement 24 mg/dL 5-40 [facility] LDL calc ser/plasOrdered By: Genaro Heath on 11-01-2024 Cholesterol in LDL [Mass/Vol] 151 mg/dL [facility] Comment on above: Euxmvhqkmi=324-937 m g/dL & Higher Gzax=956 mg/dL or greaterFriedwald Equation for LDL-C Laboratory - Chemistry and C hemistry - challengeOrdered By: Genaro Heath on 11-01-2024 AST [Catalytic activity/Vol] 17 U/L <32 [facility] Lipid Profileon 11-01-2024 CHOL:HDL 4.08 Normal [facility] Comment on above: Performed By: #### L 500.3400, L500.4100 ####[facility] [address] [place], [place], [phone] Cholesterol [Mass/Vol] 232 mg/dL High <=200 [facility] Comment on above: Result Comment: Chol esterol level, Desirable <200 mg/dL Borderline high cholesterol 200-239 mg/dL High cholesterol >=240 mg/dL Recommendations of the NCEP Adult Treatment Panel for the following risk-cutoff thresholds for the [place] population. Performed By: #### L 500.3400, L500.4100 ####[facility] [address] [place], [place], [phone] Cholesterol in HDL [Mass/Vol] 57 mg/dL Normal [facility] Comment on above: Result Comment: Gerda onal Cholesterol Education Program (NCEP) guidelines: <40 mg/dL: Low HDL-cholesterol (major risk factor for CHD) >= 60 mg/dL: High HDL-cholesterol (negative risk factor for CHD) HDL-cholesterol is affected by a number of factors, e.g. smoking, exercise, hormones, sex and age. Performed By: #### L 500.3400, L500.4100 ####[facility] [address] [place], [address] Cholesterol in LDL [Mass/Vol] 151 mg/dL Normal [facility] Comment on above: Result Comment: Bord ijvasi=552-404 mg/dL Higher Xcnu=820 mg/dL or greater Friedwald Equation for LDL-C Performed By: #### L 500.3400, L500.4100 ####[facility] [address] [place], [address] Cholesterol in VLDL [Mass/Vol] 24 mg/dL Normal 5-40 [facility] Comment on above: Performed By: #### L 500.3400, L500.4100 ####[facility] [address] [place], [address] Triglyceride [Mass/Vol] 119 mg/dL Normal [facility] Comment on above: Result Comment: The drugs N-Acetylcysteine and Metamizole may falsely depress this assay. Normal range: <150 mg/dL Borderline High: 150-199 mg/dL High: 200-499 mg/dL Very High: >500 mg/dL Performed By: #### L 500.3400, L500.4100 ####[facility] [address] [place], [address] Liver Profileon 11-01-2024 Albumin [Mass/Vol] 4.3 g/dL Normal 3.4-4.8 [facility] Comment on above: Performed By: #### L 500.3400, L500.4100 ####[facility] [address] [place], [address] ALK PHOS 80 U/L Normal 35-104 [facility] Comment on above: Performed By: #### L 500.3400, L500.4100 ####[facility] [address] [place], [address] ALT [Catalytic activity/Vol] 19 U/L Normal <=34 [facility] Comment on above: Performed By: #### L 500.3400, L500.4100 ####[facility] [address] [place], [address] AST [Catalytic activity/Vol] 17 U/L Normal <=31 [facility] Comment on above: Performed By: #### L 500.3400, L500.4100 ####[facility] [address] [place], [address] Bilirubin [Mass/Vol] 0.34 mg/dL Normal 0.00-1.30 [facility] Comment on above: Performed By: #### L 500.3400, L500.4100 ####[facility] [address] [place], [address] Bilirubin.direct [Mass/Vol] 0.12 mg/dL Normal 0.00-0.30 [facility] Comment on above: Performed By: #### L 500.3400, L500.4100 ####[facility] [address] [place], [address] Globulin (S) [Mass/Vol] 2.9 g/dL Normal 2.2-4.2 [facility] Comment on above: Performed By: #### L 500.3400, L500.4100 ####[facility] [address] [place], [address] T PROT 7.1 g/dL Normal 5.9-8.4 [facility] Comment on above: Performed By: #### L 500.3400, L500.4100 ####[facility] [address] [place], [address] Screening total cholesterol/ high density lipoprotein (HDL) cholesterol ratioOrdered By: Genaro Heath on 11-01-2024 Cholesterol.total/Choles terol in HDL [Mass ratio] 4.08 {ratio} [facility] Serum globulin measurementOr dered By: Genaro Heath on 11-01-2024 Globulin (S) [Mass/Vol] 2.9 g/dL 2.2-4.2 [facility] Serum or plasma alanine mojica otransferase (ALT) measurementOrdered By: Genaro Heath on 11-01-2024 ALT [Catalytic activity/Vol] 19 U/L <35 [facility] Serum or plasma albumin nguyen urement (mass/volume)Ordered By: Genaro Heath on 11-01-2024 Albumin [Mass/Vol] 4.3 g/dL 3.4-4.8 [facility] Serum or plasma alkaline elisabet sphatase measurementOrdered By: Genaro Heath on 11-01-2024 ALP [Catalytic activity/Vol] 80 U/L 35-104 [facility] Serum or plasma cholesterol in HDL measurement (mass/volume)Ordered By: Genaro Heath on 11-01-2024 Cholesterol in HDL [Mass/Vol] 57 mg/dL >40 [facility] Comment on above: National Cholesterol Education Program (NCEP) guidelines:<40 mg/dL: Low HDL-cholesterol (major risk factor for CHD)>= 60 mg/dL: High HDL-cholesterol (negative risk factor for CHD)HDL-cholesterol is affected by a number of factors, e.g. smoking, exercise, hormones, sex and age. Serum or plasma cholesterol measurement (mass/volume)Ordered By: Genaro Heath on 11-01-2024 Cholesterol [Mass/Vol] 232 mg/dL High <201 [facility] Comment on above: Cholesterol level, D esirable <200 mg/dLBorderline high cholesterol 200-239 mg/dLHigh cholesterol >=240 mg/dLRecommendations of the NCEP Adult Treatment Panel for the following risk-cutoff thresholds for the [place] population. Total proteinOrdered By: Asif Heath on 11-01-2024 Protein [Mass/Vol] 7.1 g/dL 5.9-8.4 [facility] Triglycerides measurementOrd ered By: Genaro Heath on 11-01-2024 Triglyceride [Mass/Vol] 119 mg/dL <199 [facility] Comment on above: The drugs N-Acetylcy steine and Metamizole may falsely depress this assay. Normal range: <150 mg/dLBorderline High: 150-199 mg/dLHigh: 200-499 mg/dLVery High: >500 mg/dL Internal Medicine Office Vis itoedouard 10-31-2024 Internal Medicine Office Visit [facility] [address] [place], [place] [address] OFFICE VISIT Date of Service: 10/31/24 MR#: [id number] Acct: [id number] Name: IRENE BERG Rep #: [id number] : 1950 Provider: Dr. Delta wright MD Age/Sex: 74/F Location: [facility] Status: Signed Intake Vital Signs 07/30/24 13:16 09/30/24 10:30 10/31/24 13:50 Height 5 ft 7 in 5 ft 7 in 5 ft 7 in Weight: 245 lb BMI 38.3 BP 142/80 H Blood Pressure Location Lt brachial Position Sitting Respiration 18 Pulse 94 Pulse Source Monitor Temp 97.9 F Temp Source Temporal Pulse Oximetry (%) 97 Oxygen Delivery Method room air Intake Visit Reasons: 3 M FU Chief Complaint: 3 M FU Is patient in pain?: No Allergies codeine Allergy (Mild, Verified 10/31/24 13:46) roaring sounds, hives, headache Penicillins Allergy (Mild, Verified 10/31/24 13:46) hives Medications ???Medication ???Instructions ???Recorded ???Confirmed ???Type potassium chloride 20 mEq 20 meq PO DAILY #90 tabs 11/08/22 09/02/24 Rx tablet,extended release acetaminophen 650 mg 650 mg PO Q12H PRN pain 06/12/23 0 10/31/24 History tablet,extended release (Tylenol Arthritis Pain) venlafaxine 150 mg 150 mg PO DAILY #90 caps 04/28/24 09/02/24 Rx capsule,extended release 24 hr furosemide 40 mg tablet 40 mg PO BID fluid #180 tabs 05/2810/31/24 Rx Held on 07/02/24. Instructions: pt does not want to take right now evolocumab 140 mg/mL subcutaneous 140 mg subcut Q2W #2 mL 07/08/24 10/31/24 Rx pen injector (Wu [place]) aspirin 81 mg tablet,delayed 81 mg PO QDAY #90 tabs 07/31/24 Rx release (Adult Low Dose Aspirin) amlodipine 5 mg tablet 5 mg PO DAILY #90 tabs 08/01/24 Rx hydrocodone-acetami nophen 5-325mg 1 tab PO BID PRN 09/02/24 5 History 5mg-325mg sennosides 8.6 mg-docusate sodium 2 tab PO BID 09/02/24 09/02/24 Hi story 50 mg tablet (Stool Softener-Laxative) Handicap Placard #1 ea 09/10/24 Rx blood sugar diagnostic (FreeStyle #100 ea 09/10/24 Rx Lite Strips) blood-glucose meter (FreeStyle #1 ea 09/10/24 Rx Lite Meter kit) lancets 28 gauge (FreeStyle #200 ea 09/10/24 Rx Lancets) mirabegron 50 mg tablet,extended 50 mg PO QDAY #30 tabs 10/31/24 Rx release 24 hr olmesartan 40 mg tablet 40 mg PO QHS #90 tabs 10/31/24 Rx Have you fallen in the past year?: No PFSH Medical History (Updated 11/01/24 @ 00:[address] Delta Sahu MD) Concern about memory Type 2 diabetes mellitus Abnormal finding present on diagnostic imaging of [facility] Health care maintenance Trigger finger, right Memory changes Left shoulder pain Chronic constipation OAB (overactive bladder) Umbilical discharge Lumbar stenosis Wears dentures Depression Arthritis Bladder disease High cholesterol Back pain Injury of head and neck Difficulty swallowing History of ulceration Heartburn Shortness of breath on exertion Non-smoker On home oxygen therapy Leg cramps History of Holter monitoring History of echocardiogram History of edema Cardiology follow-up encounter History of irregular heartbeat Hx of fracture of ankle Flu vaccine need Preoperative evaluation to rule out surgical contraindication Anxiety and depression Spinal stenosis Urinary frequency Venous insufficiency of both lower extremities Chronic abdominal pain Left arm pain Edema of left upper arm Leg pain, left Palpitations Essential hypertension Edema of both lower legs MRSA (methicillin resistant Staphylococcus aureus) infection Ulcer of left lower extremity with fat layer exposed Other acute postprocedural pain Thyroid disease Lupus Hearing problem Headache History of blood clots Open wound of left lower leg due to animal bite Abscess of left lower leg Cellulitis of left anterior lower leg Bitten by pig, initial encounter Skin necrosis Post-menopausal CPAP (continuous positive airway pressure) dependence On home oxygen therapy History of stress test Scarlet fever Morbid obesity Avulsion injury Animal bite Laceration COVID-19 Suspected COVID-19 virus infection Acute respiratory failure with hypoxia Dislocation of right ankle joint Syndesmotic disruption of right ankle Bimalleolar fracture of right ankle History of left heart catheterization (LHC) ( 07/19/18) SOB (shortness of breath) HESHAM (obstructive sleep apnea) Pulmonary hypertension Essential hypertension Sebaceous cyst Osteoarthritis Urinary incontinence Mood disorder Hyperlipidemia Surgical History Status post total left knee replacement History of lumbar surgery Hx of colonoscopy History of surgery on lower extremi (more content not included)... Normal [facility] - Hematology and Cell countsOrdered By: Delta Sahu on 10-31-2024 HbA1c (Bld) [Mass fraction] 6.9 % High 4.2-6.3 [facility] Re-Evaluation - PT (1)on Re-Evaluation - PT (1) [facility] [address] [place] [address] [address] [place] [address] / REEVALUATION / MEDICARE RECERTIFICATION PHYSICAL THERAPY MR#: [id number] Acct: [id number] Name: IRENE BERG Rep #: [id number] : 1950 74 From: Pravin Higgins DPT Referring Dr.: JARON Yadav Status:REG RCR Insurance: MEDICARE PART A B [facility] Re-Evaluation Intro: Raj Yadav PA-C, It has been my pleasure to treat IRENE BERG over the last 8 visits for L TKA, DOS 06/24/24. Please see the progress note below for an update on the physical therapy plan of care! Subjective Subjective: Pt. reports going down the steps at [employer] when she felt like her knee cracked. She ended up fracturing her patella. Pt. to go back to physician in 2 weeks. Pt. is to ease back into activities. Pt. reports having 5/10 with walking, no pain at rest. Pt. reports getting stiff with prolonged sitting. Objective Objective/Function: L knee ROM: 0-2-106deg AROM, 0-0-110deg PROM. Pt. has some limited HS length without much pain. Pt. has quad set, but but a little weak. Reviewed with patient and improved. Due to her recent fracture she is to work on PROM/AROM, and quad sets. No resistance strengthening currently. Pt. is okay to walk and is WBAT, NO AD. Pt did not meet much of her goals due to having a patellar fracture 1 month ago. She was immobilized and is now able to work on ROM and quad sets. Plan Plan Plan: Due to her fracture, patient is to work on PROM and AROM, and quad sets. No resistive exercises at this point in time. Add in HS and quad stretching to HEP. No forceful movements. Pt. to see physician in a few weeks. Balance/Gait/Functi onal tests Balance/Special Test Scores TUG Test Time Seconds: 37 Tug Test: >30sec.=impaired mobility 30 Second Chair Rise Test Seconds: 7 WOMAC Total Score: 72 WOMAC Percentage: 25.0000 Goals Goals Goal 1:: LTG: Pt. to be I with HEP. Goal Time Frame: 4-6 Weeks Goal Progress: Progressing Goal 2:: STG: Pt. to have increased L knee ROM to 0-0-120deg. Goal Time Frame: 2-4 Weeks Goal Progress: Progressing Goal 3:: LTG: Pt. to have symmetrical strength between BLEs. Goal Time Frame: 4-6 Weeks Goal Progress: Progressing Goal 4:: LTG: Pt. to ambulate with out AD with normal gait pattern without issues. Goal Time Frame: 4-6 Weeks Goal Progress: Goal Met Goal 5:: LTG: Pt. to negotiate 1 flight stairs with1 HR with reciprocal pattern. Goal Time Frame: 4-6 Weeks Goal Progress: Progressing Goal 6:: LTG: pt. to complete TUG with less than 10 seconds without use of AD. Goal Time Frame: 4-6 Weeks Goal Progress: Progressing Anticipated Interventions Anticipated Interventions Patient/Client Instruction: Educate patient on: Condition, Plan of Care, Risk Factors and Benefits of Fitness Program For the Purpose of:: To improve decision making, To facilitate caregiver knowledge, To improve self management, To prevent re-injury and To improve ability to perform tasks related to life management Therapeutic Exercise to Include: Strength training, Endurance training, Balance training, Coordination, Flexibilty training, Passive ROM and Active ROM For the Purpose of:: To decrease pain, To decrease swelling/inflammati on, To increase ROM, To improve nutrient delivery to tissue, To increase oxygenation perfusion, To improve muscle perfo rmance and motor function and To improve ability to perform ADL's Manual Therapy Techniques to Include: Mobilization, Passive ROM and Soft tissue mobilization For the Purpose of:: To increase ROM, To improve nutrient delivery to tissue, To increase oxygenation perfusion, To improve muscle performance and motor function, To improve ability to perform ADL's, To improve health of tissue, To decrease soft tissue restriction and To increase flexibility/ROM Cryotherapy (ice pack, ice massage): Yes Vasopneumatic device: Yes For the Purpose of:: To decrease pain, To decrease swelling/inflammati on and To increase ROM Re-Evaluation Ending Re-evaluation ending: Please do not hesitate to contact me at [phone] by phone or if you have questions or concerns regarding this new plan of care! Sincerely, Pravin Higgins, DPT 09/08/24 1229 CC: JARON Yadav; Dr. Delta Sahu MD CLS Signed For Medicare only, by signing this I certify the plan of care. _ Physicians Signature Date Normal [facility] Pulmonary Visit Reporton Pulmonary Visit Report [facility] Medicine of [address] [place] [address] OFFICE VISIT Date of Service: 09/02/24 MR#: [id number] Acct: [id number] Name: IRENE BERG Rep #: [id number] : 1950 Provider: MITA Gusman Age/Sex: 74/F [place] [facility] [place] Status: Signed Assessment and Plan Assessment and Plan (1) HESHAM (obstructive sleep apnea): Status: Chronic Comment: CPAP 4 cmH2O (2) Obesity (BMI 30-39.9): Status: Chronic Plan She is using and benefiting from Pap therapy. No indication for titration study at this time. Continue to encourage weight loss. Contact the office for any new or worsening symptoms in the meantime. Follow-up in 1 year. Plan Details Additional Comments: This note was generated with Vyyo dictation software. It may contain incorrect words, spelling, and punctuation that were not noted in checking the note before signing. Follow Up: 1 Year HPI 1 Y FU Chief Complaint: routine follow up HPI Comments Details: This patient presents to the office today for follow-up of her obstructive sleep apnea. She is ambulatory and on room air. She has not recently been seen in the ED or urgent care for any respiratory illness. She has not required any antibiotics or prednisone for breathing problems. She denies any difficulty with shortness of breath. She denies any cough, sputum production or hemoptysis. She denies any wheezing, chest tightness, chest pain or palpitations. She has not had any fever, chills or body aches. She wakes up feeling rested refreshed. She is quite pleased with her current nasal hybrid mask. She is not having difficulty with mask leaks or dry mouth. She is not requiring naps and is not nodding off to sleep unintentionally. She is not having morning headaches. She denies excessive nocturia. Compliance report over the past 30 days shows 100% compliance with average use of 7 hours and 9 minutes per night. Current setting is CPAP 4 cmH2O with residual AHI of 4.1 events per hour. Leaks do not appear to be problematic. Intake Vital Signs 09/03/23 08:07 07/30/24 13:16 09/02/24 09:08 Height 5 ft 7 in 5 ft 7 in 5 ft 7 in Weight: 240 lb BMI 37.5 BP 133/85 H Blood Pressure Location Lt brachial Position Sitting Respiration 18 Pulse 79 Pulse Source Monitor Temp 97.3 F L Temperature Source Temporal Artery Pulse Oximetry (%) 95 Oxygen Delivery Method room air Intake Visit Reasons: 1 Y FU Chief Complaint: FU Chronic Conditions, Security Guard Required: No DME Vendor: Candace Accompanied by: Self Allergies codeine Allergy (Mild, Verified 09/02/24 11:24) roaring sounds, hives, headache Penicillins Allergy (Mild, Verified 09/02/24 11:24) hives Medications ???Medication ???Instructions ???Recorded ???Confirmed ???Type potassium chloride 20 mEq 20 meq PO DAILY #90 tabs 11/08/22 09/02/24 Rx tablet,extended release acetaminophen 650 mg 650 mg PO Q12H PRN pain 06/12/23 0 09/02/24 History tablet,extended release (Tylenol Arthritis Pain) olmesartan 40 mg tablet 40 mg PO QHS #90 tabs 04/10/2403/29 Rx venlafaxine 150 mg 150 mg PO DAILY #90 caps 04/28/24 09/02/24 Rx capsule,extended release 24 hr furosemide 40 mg tablet 40 mg PO BID fluid #180 tabs 05/2809/02/24 Rx Held on 07/02/24. Instructions: pt does not want to take right now famotidine 20 mg tablet 20 mg PO DAILY 07/02/24 09/02/24 H istory evolocumab 140 mg/mL subcutaneous 140 mg subcut Q2W #2 mL 07/08/24 09/02/24 Rx pen injector (Wu Vail) metformin 500 mg tablet,extended 500 mg PO BID #60 tabs 07/30/24 Rx release 24 hr (Glucophage XR) aspirin 81 mg tablet,delayed 81 mg PO QDAY #90 tabs 07/31/24 Rx release (Adult Low Dose Aspirin) mirabegron 25 mg tablet,extended 25 mg PO QDAY #30 tabs 07/31/24 Rx release 24 hr (Myrbetriq) amlodipine 5 mg tablet 5 mg PO DAILY #90 tabs 08/01/24 Rx hydrocodone-acetami nophen 5-325mg 1 tab PO BID PRN 09/02/24 5 History 5mg-325mg sennosides 8.6 mg-docusate sodium 2 tab PO BID 09/02/24 09/02/24 Hi story 50 mg tablet (Stool Softener-Laxative) Have you fallen in the past year?: No [facility] Medical History Type 2 diabetes mellitus Abnormal finding present on diagnostic imaging of uterus Health care maintenance Trigger finger, right Memory changes Left shoulder pain Chronic constipation OAB (overactive bladder) Umbilical discharge Lumbar stenosis Wears dentures Depression Arthritis Bladder disease High cholesterol Back pain Injury of head and neck Difficulty swallowing History of ulceration Heartburn Shortness of breat (more content not included)... Normal [facility] Absolute lymphocyte countOrd ered By: Delta Sahu on 07-30-2024 Lymphocytes Auto (Unsp spec) [#/Vol] 2.23 10*3/uL 0.83-4.51 [facility] Absolute neutrophil countOrd ered By: Delta Sahu on 07-30-2024 Neutrophils (Bld) [#/Vol] 4.7 10*3/uL 2.0-7.7 [facility] Automated lymphocyte count a s percentage of total leukocytesOrdered By: Delta Sahu on 07-30-2024 Lymphocytes/100 WBC Auto (Unsp spec) 29.2 % 19- [facility] Basophil percentageOrdered B y: Delta Sahu on 07-30-2024 Basophils/100 WBC (Bld) 0.4 % 0-1 [facility] CBC W/Diff, Automatedon 07-04 Absolute Lymph 2.23 X10 3/uL Normal 0.83-4.51 [facility] Comment on above: Performed By: #### L 100.0100, L501.9985 #### [facility] [address] [place], [place], [id number] Absolute Neut 4.7 X10 3/uL Normal 2.0-7.7 [facility] Comment on above: Performed By: #### L 100.0100, L501.9985 #### [facility] [address] [place], [address] Basophils/100 WBC (Bld) 0.4 % Normal 0-1 [facility] Comment on above: Performed By: #### L 100.0100, L501.9985 #### [facility] [address] [place], [address] Eosinophils/100 WBC (Bld) 1.3 % Normal 0-5 [facility] Comment on above: Performed By: #### L 100.0100, L501.9985 #### [facility] [address] [place], [address] Erythrocyte distribution width (RBC) [Ratio] 12.5 % Normal 11.6-14.6 [facility] Comment on above: Performed By: #### L 100.0100, L501.9985 #### [facility] [address] [place], [address] Hematocrit (Bld) [Volume fraction] 42.0 % Normal 37-47 [facility] Comment on above: Performed By: #### L 100.0100, L501.9985 #### [facility] [address] [place], [address] Hemoglobin (Bld) [Mass/Vol] 13.6 g/dL Normal 12.0-15.0 [facility] Comment on above: Performed By: #### L 100.0100, L501.9985 #### [facility] [address] [place], [address] IG% 0.300 Normal 0.0-0.9 [facility] Comment on above: Result Comment: IG% - Immature Granulocytes (promyelocytes, myelocytes and metamyelocytes) > 1% indicates that a LEFT SHIFT is Present. Performed By: #### L 100.0100, L501.9985 #### [facility] [address] [place], [address] Lymphocytes/100 WBC (Bld) 29.2 % Normal 19-41 [facility] Comment on above: Performed By: #### L 100.0100, L501.9985 #### [facility] [address] [place], [address] MCH (RBC) [Entitic mass] 31.8 pg Normal 27.0-32.0 [facility] Comment on above: Performed By: #### L 100.0100, L501.9985 #### [facility] [address] [place], [address] MCHC (RBC) [Mass/Vol] 32.4 g/dL Normal 32-36 [facility] Comment on above: Performed By: #### L 100.0100, L501.9985 #### [facility] [address] [place], [address] MCV (RBC) [Entitic vol] 98.1 fL Normal 81-99 [facility] Comment on above: Performed By: #### L 100.0100, L501.9985 #### [facility] [address] [place], [address] Monocytes/100 WBC (Bld) 6.7 % Normal 0-10 [facility] Comment on above: Performed By: #### L 100.0100, L501.9985 #### [facility] [address] [place], [address] Neutrophils/100 WBC (Bld) 62.1 % Normal 47-70 [facility] Comment on above: Performed By: #### L 100.0100, L501.9985 #### [facility] [address] [place], [address] Nucleated RBC (Bld) [#/Vol] 0 10*3/uL Normal 0-5 [facility] Comment on above: Performed By: #### L 100.0100, L501.9985 #### [facility] [address] [place], [address] Platelet mean volume (Bld) [Entitic vol] 9.9 fL Normal 6.2-12.0 [facility] Comment on above: Performed By: #### L 100.0100, L501.9985 #### [facility] [address] [place], [address] Platelets (Bld) [#/Vol] 370 10*3/uL Normal 150-450 [facility] Comment on above: Performed By: #### L 100.0100, L501.9985 #### [facility] [address] [place], [address] RBC (Bld) [#/Vol] 4.28 10*6/uL Normal 4.2-5.4 [facility] Comment on above: Performed By: #### L 100.0100, L501.9985 #### [facility] [address] [place], [address] RDW SD 45.2 fl High 35.1-43.9 [facility] Comment on above: Performed By: #### L 100.0100, L501.9985 #### [facility] [address] [place], [address] WBC (Bld) [#/Vol] 7.6 10*3/uL Normal 4.4-11.0 [facility] Comment on above: Performed By: #### L 100.0100, L501.9985 #### [facility] [address] [place], [address] Eosinophil percentageOrdered By: Delta Sahu on 07-30-2024 Eosinophils/100 WBC (Bld) 1.3 % 0-5 [facility] Erythrocyte distribution wid th ratioOrdered By: Delta Sahu on 07-30-2024 Erythrocyte distribution width (RBC) [Ratio] 12.5 % 11.6-14.6 [facility] Erythrocyte distribution wid th standard deviationOrdered By: beatriz Sahu on 07-30-2024 Erythrocyte distribution width (RBC) [Ratio] 45.2 fl High 35.1-43.9 [facility] Hematocrit Auto (Bld) [Volum e fraction]Ordered By: christelvernalsarthak Sahu on 07-30-2024 Hematocrit (Bld) [Volume fraction] 42.0 % 37-47 [facility] Hemoglobin A1con 07-30-2024 HbA1c (Bld) [Mass fraction] 6.9 % High <=5.6 [facility] Comment on above: Result Comment: Norm al < 5.7 % Prediabetic 5.7 - 6.4 % Diabetic >or= 6.5 % Please note range changes. Performed By: #### L 100.0100, L501.9985 #### [facility] [address] [place], [place], [address] Hemoglobin A1c percentageOrd ered By: Delta Sahu on 07-30-2024 HbA1c (Bld) [Mass fraction] 6.9 % High <5.7 [facility] Comment on above: Normal < 5.7 % Predi abetic 5.7 - 6.4 % Diabetic >or= 6.5 % Please note range changes. Hemoglobin measurementOrdere d By: Delta Sahu on 07-30-2024 Hemoglobin (Bld) [Mass/Vol] 13.6 g/dL 12.0-15.0 [facility] Immature granulocytes/100 WB C Auto (Bld)Ordered By: beatriz Sahu on 07-30-2024 Immature granulocytes/100 WBC (Bld) 0.300 % 0.0-0.9 [facility] Comment on above: IG% - Immature Granu locytes (promyelocytes, myelocytes and metamyelocytes) > 1% indicates that a LEFT SHIFT is Present. Internal Medicine Office Vis marie 07-30-2024 Internal Medicine Office Visit [facility] [address] [place], [place] [address] OFFICE VISIT Date of Service: 07/30/24 MR#: [id number] Acct: [id number] Name: IRENE BERG Rep #: [id number] : 1950 Provider: Dr. Delta wright MD Age/Sex: 74/F Location[place] [facility] [place] Status: Signed Intake Vital Signs 04/28/24 13:12 07/29/24 14:39 07/30/24 13:16 Height 5 ft 7 in 5 ft 7 in 5 ft 7 in Weight: 241 lb 8 oz BMI 37.8 BP 128/64 H Blood Pressure Location Rt brachial Position Sitting Respiration 16 Pulse 86 Pulse Source Monitor Temp 96.7 F L Temp Source Temporal Pulse Oximetry (%) 97 Oxygen Delivery Method room air Intake Visit Reasons: 3 M FU Chief Complaint: FU Chronic Conditions, Security Guard Required: No Accompanied by: Self Is patient in pain?: No Allergies codeine Allergy (Mild, Verified 07/30/24 13:10) roaring sounds, hives, headache Penicillins Allergy (Mild, Verified 07/30/24 13:10) hives Medications ???Medication ???Instructions ???Recorded ???Confirmed ???Type potassium chloride 20 mEq 20 meq PO DAILY #90 tabs 11/08/22 07/30/24 Rx tablet,extended release acetaminophen 650 mg 650 mg PO Q12H PRN pain 06/12/23 0 07/30/24 History tablet,extended release (Tylenol Arthritis Pain) amlodipine 5 mg tablet 5 mg PO DAILY #90 tabs 06/12/23 Rx olmesartan 40 mg tablet 40 mg PO QHS #90 tabs 04/10/24 Rx venlafaxine 150 mg 150 mg PO DAILY #90 caps 04/28/24 07/30/24 Rx capsule,extended release 24 hr mirabegron 25 mg tablet,extended 25 mg PO QDAY #30 tabs 04/29/24 Rx release 24 hr (Myrbetriq) furosemide 40 mg tablet 40 mg PO BID fluid #180 tabs 05/2807/30/24 Rx Held on 07/02/24. Instructions: pt does not want to take right now famotidine 20 mg tablet 20 mg PO DAILY 07/02/24 07/30/24 H istory oxybutynin chloride 10 mg 10 mg PO DAILY 07/02/24 07/30/24 H istory tablet,extended release 24 hr aspirin 81 mg tablet,delayed 81 mg PO QDAY 07/08/24 07/30/24 Hi story release (Adult Low Dose Aspirin) evolocumab 140 mg/mL subcutaneous 140 mg subcut Q2W #2 mL 07/08/24 07/30/24 Rx pen injector (Vandanaa Aracelyick) methylprednisolone 4 mg tablets in See Rx Instructions PO PER PKG D IR 07/29/24 07/30/24 Rx a dose pack (Medrol (Chau)) #21 tabs metformin 500 mg tablet,extended 500 mg PO BID #60 tabs 07/30/24 Rx release 24 hr (Glucophage XR) Have you fallen in the past year?: No PFSH Medical History (Updated 07/30/24 @ 17:[address] Delta Sahu MD) Type 2 diabetes mellitus Abnormal finding present on diagnostic imaging of uterus Health care maintenance Trigger finger, right Memory changes Left shoulder pain Chronic constipation OAB (overactive bladder) Umbilical discharge Lumbar stenosis Wears dentures Depression Arthritis Bladder disease High cholesterol Back pain Injury of head and neck Difficulty swallowing History of ulceration Heartburn Shortness of breath on exertion Non-smoker On home oxygen therapy Leg cramps History of Holter monitoring History of echocardiogram History of edema Cardiology follow-up encounter History of irregular heartbeat Hx of fracture of ankle Flu vaccine need Preoperative evaluation to rule out surgical contraindication Anxiety and depression Spinal stenosis Urinary frequency Venous insufficiency of both lower extremities Chronic abdominal pain Left arm pain Edema of left upper arm Leg pain, left Palpitations Essential hypertension Edema of both lower legs MRSA (methicillin resistant Staphylococcus aureus) infection Ulcer of left lower extremity with fat layer exposed Other acute postprocedural pain Thyroid disease Lupus Hearing problem Headache History of blood clots Open wound of left lower leg due to animal bite Abscess of left lower leg Cellulitis of left anterior lower leg Bitten by pig, initial encounter Skin necrosis Post-menopausal CPAP (continuous positive airway pressure) dependence On home oxygen therapy History of stress test Scarlet fever Morbid obesity Avulsion injury Animal bite Laceration COVID-19 Suspected COVID-19 virus infection Acute respiratory failure with hypoxia Dislocation of right ankle joint Syndesmotic disruption of right ankle Bimalleolar fracture of right ankle History of left heart catheterization (LHC) ( 05/17/19) SOB (shortness of breath) HESHAM (obstructive sleep apnea) Pulmonary hypertension Essential hypertension Sebaceous cyst Osteoarthritis Urinary incontinence Mood disorder Hyperlipidemia Surgical History Status post total left knee replacement History of lumbar surgery Hx of colonoscopy History of surger (more content not included)... Normal [facility] MCV (mean corpuscular volume ) determinationOrdered By: Delta Sahu on 07-30-2024 MCV (RBC) [Entitic vol] 98.1 fL 81-99 [facility] Mean corpuscular hemoglobin (MCH) determinationOrdered By: Delta Sahu on 07-30-2024 MCH (RBC) [Entitic mass] 31.8 pg 27.0-32.0 [facility] Mean corpuscular hemoglobin concentration (MCHC) determinationOrdered By: Delta Sahu on 07-30-2024 MCHC (RBC) [Mass/Vol] 32.4 g/dL 32-36 [facility] Mean platelet volume determi nationOrdered By: Delta Sahu on 07-30-2024 Platelet mean volume (Bld) [Entitic vol] 9.9 fL 6.2-12.0 [facility] Monocyte percentageOrdered B y: Delta Sahu on 07-30-2024 Monocytes/100 WBC (Bld) 6.7 % 0-10 [facility] Neutrophil percentageOrdered By: Delta Sahu on 07-30-2024 Neutrophils/100 WBC (Bld) 62.1 % 47-70 [facility] Nucleated red blood cell per centageOrdered By: Delta Sahu on 07-30-2024 Nucleated RBC/100 WBC (Bld) [Ratio] 0 % 0-5 [facility] Platelet countOrdered By: Ef beatriz Shau on 07-30-2024 Platelets (Bld) [#/Vol] 370 10*3/uL 150-450 [facility] RBC Auto (Bld) [#/Vol]Ordere d By: Delta Sahu on 07-30-2024 RBC (Bld) [#/Vol] 4.28 10*6/uL 4.2-5.4 [facility] White blood cell (WBC) count Ordered By: Delta Sahu on 07-30-2024 WBC (Bld) [#/Vol] 7.6 10*3/uL 4.4-11.0 [facility] Surgery Visit Reporton 07-29 Surgery Visit Report [facility] [address] [place] [address] OFFICE VISIT Date of Service: 07/29/24 MR#: [id number] Acct: [id number] Name: IRENE BERG Rep #: [id number] : 1950 Provider: Dr. Christopher adorno MD Age/Sex: 74/F Location: [facility] Status: Signed Intake Vital Signs 07/22/24 10:42 07/29/24 14:39 Height 5 ft 7 in 5 ft 7 in Weight: 242 lb BMI 37.9 BP 160/88 H Blood Pressure Location Lt brachial Position Sitting Respiration 16 Pulse 86 Pulse Source NIBP Temp 98.0 F Temp Source Temporal Pulse Oximetry (%) 97 Oxygen Delivery Method room air Intake Visit Reasons: RLQ PAIN Security Guard Required: No Accompanied by: Is patient in pain?: Yes Pain scale (1-10): 5 Allergies codeine Allergy (Mild, Verified 07/30/24 13:10) roaring sounds, hives, headache Penicillins Allergy (Mild, Verified 07/30/24 13:10) hives Medications ???Medication ???Instructions ???Recorded ???Confirmed ???Type potassium chloride 20 mEq 20 meq PO DAILY #90 tabs 11/08/22 07/30/24 Rx tablet,extended release acetaminophen 650 mg 650 mg PO Q12H PRN pain 06/12/23 0 07/30/24 History tablet,extended release (Tylenol Arthritis Pain) amlodipine 5 mg tablet 5 mg PO DAILY #90 tabs 06/12/23 Rx olmesartan 40 mg tablet 40 mg PO QHS #90 tabs 04/10/24 Rx venlafaxine 150 mg 150 mg PO DAILY #90 caps 04/28/24 07/30/24 Rx capsule,extended release 24 hr mirabegron 25 mg tablet,extended 25 mg PO QDAY #30 tabs 04/29/24 Rx release 24 hr (Myrbetriq) furosemide 40 mg tablet 40 mg PO BID fluid #180 tabs 05/2807/30/24 Rx Held on 07/02/24. Instructions: pt does not want to take right now famotidine 20 mg tablet 20 mg PO DAILY 07/02/24 07/30/24 H istory oxybutynin chloride 10 mg 10 mg PO DAILY 07/02/24 07/30/24 H istory tablet,extended release 24 hr aspirin 81 mg tablet,delayed 81 mg PO QDAY 07/08/24 07/30/24 Hi story release (Adult Low Dose Aspirin) evolocumab 140 mg/mL subcutaneous 140 mg subcut Q2W #2 mL 07/08/24 07/30/24 Rx pen injector (Repatha SureClick) methylprednisolone 4 mg tablets in See Rx Instructions PO PER PKG D IR 07/29/24 07/30/24 Rx a dose pack (Medrol (Chau)) #21 tabs Have you fallen in the past year?: No PFSH Medical History Abnormal finding present on diagnostic imaging of uterus Health care maintenance Trigger finger, right Memory changes Left shoulder pain Chronic constipation OAB (overactive bladder) Umbilical discharge Lumbar stenosis Wears dentures Depression Arthritis Bladder disease High cholesterol Back pain Injury of head and neck Difficulty swallowing History of ulceration Heartburn Shortness of breath on exertion Non-smoker On home oxygen therapy Leg cramps History of Holter monitoring History of echocardiogram History of edema Cardiology follow-up encounter History of irregular heartbeat Hx of fracture of ankle Flu vaccine need Preoperative evaluation to rule out surgical contraindication Anxiety and depression Spinal stenosis Urinary frequency Venous insufficiency of both lower extremities Chronic abdominal pain Left arm pain Edema of left upper arm Leg pain, left Palpitations Essential hypertension Edema of both lower legs MRSA (methicillin resistant Staphylococcus aureus) infection Ulcer of left lower extremity with fat layer exposed Other acute postprocedural pain Thyroid disease Lupus Hearing problem Headache History of blood clots Open wound of left lower leg due to animal bite Abscess of left lower leg Cellulitis of left anterior lower leg Bitten by pig, initial encounter Skin necrosis Post-menopausal CPAP (continuous positive airway pressure) dependence On home oxygen therapy History of stress test Scarlet fever Morbid obesity Avulsion injury Animal bite Laceration COVID-19 Suspected COVID-19 virus infection Acute respiratory failure with hypoxia Dislocation of right ankle joint Syndesmotic disruption of right ankle Bimalleolar fracture of right ankle History of left heart catheterization (LHC) ( 07/19/18) SOB (shortness of breath) HESHAM (obstructive sleep apnea) Pulmonary hypertension Essential hypertension Sebaceous cyst Osteoarthritis Urinary incontinence Mood disorder Hyperlipidemia Surgical History Status post total left knee replacement History of lumbar surgery Hx of colonoscopy History of surgery on lower extremity Hx of fusion of cervical spine History of excision of lesion H/O cardiac catheterization S/P tubal ligation History of ton (more content not included)... Normal [facility] Yarn Cleaner Office Visit Reporton 07-22-2024 Yarn Cleaner Office Visit Report [facility] [address], [address] [place] [address] OFFICE VISIT Date of Service: 07/22/24 MR#: [id number] Acct: [id number] Name: IRENE BERG Rep #: [id number] : 1950 Provider: Dr. Carla Goncalves DO Age/Sex: 74/F Location: [facility] [place] Status: Signed Intake Vital Signs 06/06/24 14:15 07/08/24 06:24 07/22/24 10:40 07/22/24 10:42 Height 5 ft 7 in 5 ft 7 in 5 ft 7 in 5 ft 7 in Weight: 242 lb 234 lb 4 oz BMI 37.9 36.6 BP 139/83 H 90/68 Blood Pressure Location Lt brachial Position Sitting Respiration 18 Pulse 91 Pulse Source Monitor Pulse Oximetry (%) 96 Intake Visit Reasons: FIBROIDS (BIM) Security Guard Required: No Is patient in pain?: No Allergies codeine Allergy (Mild, Verified 07/22/24 10:40) roaring sounds, hives, headache Penicillins Allergy (Mild, Verified 07/22/24 10:40) hives Medications ???Medication ???Instructions ???Recorded ???Confirmed ???Type potassium chloride 20 mEq 20 meq PO DAILY #90 tabs 11/08/22 07/22/24 Rx tablet,extended release acetaminophen 650 mg 650 mg PO Q12H PRN pain 06/12/23 0 07/22/24 History tablet,extended release (Tylenol Arthritis Pain) amlodipine 5 mg tablet 5 mg PO DAILY #90 tabs 06/12/23 Rx olmesartan 40 mg tablet 40 mg PO QHS #90 tabs 04/10/24 Rx venlafaxine 150 mg 150 mg PO DAILY #90 caps 04/28/24 07/22/24 Rx capsule,extended release 24 hr mirabegron 25 mg tablet,extended 25 mg PO QDAY #30 tabs 04/29/24 Rx release 24 hr (Myrbetriq) furosemide 40 mg tablet 40 mg PO BID fluid #180 tabs 05/2807/22/24 Rx Held on 07/02/24. Instructions: pt does not want to take right now doxycycline hyclate 100 mg capsule 100 mg PO Q12H 07/02/24 07/22/24 History famotidine 20 mg tablet 20 mg PO DAILY 07/02/24 07/22/24 H istory oxybutynin chloride 10 mg 10 mg PO DAILY 07/02/24 07/22/24 H istory tablet,extended release 24 hr aspirin 81 mg tablet,delayed 81 mg PO QDAY 07/08/24 07/22/24 Hi story release (Adult Low Dose Aspirin) evolocumab 140 mg/mL subcutaneous 140 mg subcut Q2W #2 mL 07/08/24 07/22/24 Rx pen injector (Wu [place]ail) Is last menstrual period known: No Post menopausal: Yes Patient : No : No PFSH Medical History Abnormal finding present on diagnostic imaging of uterus Health care maintenance Trigger finger, right Memory changes Left shoulder pain Chronic constipation OAB (overactive bladder) Umbilical discharge Lumbar stenosis Wears dentures Depression Arthritis Bladder disease High cholesterol Back pain Injury of head and neck Difficulty swallowing History of ulceration Heartburn Shortness of breath on exertion Non-smoker On home oxygen therapy Leg cramps History of Holter monitoring History of echocardiogram History of edema Cardiology follow-up encounter History of irregular heartbeat Hx of fracture of ankle Flu vaccine need Preoperative evaluation to rule out surgical contraindication Anxiety and depression Spinal stenosis Urinary frequency Venous insufficiency of both lower extremities Chronic abdominal pain Left arm pain Edema of left upper arm Leg pain, left Palpitations Essential hypertension Edema of both lower legs MRSA (methicillin resistant Staphylococcus aureus) infection Ulcer of left lower extremity with fat layer exposed Other acute postprocedural pain Thyroid disease Lupus Hearing problem Headache History of blood clots Open wound of left lower leg due to animal bite Abscess of left lower leg Cellulitis of left anterior lower leg Bitten by pig, initial encounter Skin necrosis Post-menopausal CPAP (continuous positive airway pressure) dependence On home oxygen therapy History of stress test Scarlet fever Morbid obesity Avulsion injury Animal bite Laceration COVID-19 Suspected COVID-19 virus infection Acute respiratory failure with hypoxia Dislocation of right ankle joint Syndesmotic disruption of right ankle Bimalleolar fracture of right ankle History of left heart catheterization (LHC) ( 07/19/18) SOB (shortness of breath) HESHAM (obstructive sleep apnea) Pulmonary hypertension Essential hypertension Sebaceous cyst Osteoarthritis Urinary incontinence Mood disorder Hyperlipidemia Surgical History History of lumbar surgery Hx of colonoscopy History of surgery on lower extremity Hx of fusion of cervical spine History of excision of lesion H/O cardiac catheterization S/P tubal ligation History of tonsillectomy exploratory surgery S/P right knee arthroscopy S/P dilation and curettage Histor (more content not included)... Normal [facility] Cardiology Visit Reporton Cardiology Visit Report [facility]. [address] [place] [address] OFFICE VISIT Date of Service: 07/08/24 MR#: [id number] Acct: [id number] Name: IRENE BERG Rep #: [id number] : 1950 Provider: ISABEL Godoy Age/Sex: 74/F Location: [facility] [place] Status: Signed HPI HPI History of Present Illness Details: Irene Berg is a 74-year-old female who presents to office today for follow-up for monitoring of her cardiovascular health. Patient has a history of minimal coronary artery disease noted on angiogram in 2019, hypertension, dyslipidemia. Cardiac catheterization 07/19/2018 demonstrated 10-25% eccentric stenosis in the proximal LAD, angiographically normal RCA, circumflex, left main artery. Catheterization did demonstrate moderate pulmonary hypertension with elevated right heart pressures. Medical management was recommended at that time. Upon assessment in office today, patient reports ongoing headaches that have been occurring for months to years now that is described as coming across the top of her head in a bandlike fashion from the temporal region and sometimes from the back of the head. She has these a couple times a month and resolves within 10-15 minutes with occasionally needing to take Tylenol. Patient reports chronic lower extremity edema left greater than right that is adequately controlled with furosemide. This has been going on for years now. Patient did have trauma to her left lower extremity in the past. She reports noticing nausea in the last 6 months that usually resolves with fluid intake. She denies noticing nausea associated with any thing specifically including food intake or activity. Patient reports home BP readings typically 120s over 70s. Further ROS below. Intake Vital Signs 04/28/24 13:12 07/08/24 06:24 Height 5 ft 7 in 5 ft 7 in Weight: 242 lb BMI 37.9 BP 139/83 H Blood Pressure Location Lt brachial Position Sitting Respiration 18 Pulse 91 Pulse Source Monitor Pulse Oximetry (%) 96 Intake Visit Reasons: 6 M Security Guard Required: No Is patient in pain?: No Allergies codeine Allergy (Mild, Verified 07/02/24 11:30) roaring sounds, hives, headache Penicillins Allergy (Mild, Verified 07/02/24 11:30) hives Medications ???Medication ???Instructions ???Recorded ???Confirmed ???Type potassium chloride 20 mEq 20 meq PO DAILY #90 tabs 11/08/22 07/08/24 Rx tablet,extended release acetaminophen 650 mg 650 mg PO Q12H PRN pain 06/12/23 0 07/08/24 History tablet,extended release (Tylenol Arthritis Pain) amlodipine 5 mg tablet 5 mg PO DAILY #90 tabs 06/12/23 Rx olmesartan 40 mg tablet 40 mg PO QHS #90 tabs 04/10/2408/27 Rx venlafaxine 150 mg 150 mg PO DAILY #90 caps 04/28/24 07/08/24 Rx capsule,extended release 24 hr mirabegron 25 mg tablet,extended 25 mg PO QDAY #30 tabs 04/29/24 Rx release 24 hr (Myrbetriq) furosemide 40 mg tablet 40 mg PO BID fluid #180 tabs 05/2807/08/24 Rx Held on 07/02/24. Instructions: pt does not want to take right now doxycycline hyclate 100 mg capsule 100 mg PO Q12H 07/02/24 07/08/24 History famotidine 20 mg tablet 20 mg PO DAILY 07/02/24 07/08/24 H istory oxybutynin chloride 10 mg 10 mg PO DAILY 07/02/24 07/08/24 H istory tablet,extended release 24 hr aspirin 81 mg tablet,delayed 81 mg PO QDAY 07/08/24 07/08/24 Hi story release (Adult Low Dose Aspirin) evolocumab 140 mg/mL subcutaneous 140 mg subcut Q2W #2 mL 07/08/24 07/08/24 Rx pen injector (Repatha SureClick) Ejection fraction %: 60 Have you fallen in the past year?: No Nurse's Note: left total knee replacement 2weeks ago [facility] Medical History (Updated 07/09/24 @ 15:45 by ISABEL Godoy) Abnormal finding present on diagnostic imaging of [facility] Health care maintenance Trigger finger, right Memory changes Left shoulder pain Chronic constipation OAB (overactive bladder) Umbilical discharge Lumbar stenosis Wears dentures Depression Arthritis Bladder disease High cholesterol Back pain Injury of head and neck Difficulty swallowing History of ulceration Heartburn Shortness of breath on exertion Non-smoker On home oxygen therapy Leg cramps History of Holter monitoring History of echocardiogram History of edema Cardiology follow-up encounter History of irregular heartbeat Hx of fracture of ankle Flu vaccine need Preoperative evaluation to rule out surgical contraindication Anxiety and depression Spinal stenosis Urinary frequency Venous insufficiency of both lower extremities Chronic abdominal pain Left arm pain Edema of left upper arm Leg pain, left Palpitations Essential hypertension Edema of both lower legs MRSA (methicillin resistan (more content not included)... Normal [facility] Abdomen/Pelvis W IV Cont ONL Yon 07-02-2024 Abdomen/Pelvis W IV Cont ONLY [facility] Imaging Services [address] [place] [address] Abdomen/Pelvis W IV Cont ONLY MR#: [id number] Acct: [id number] Name: IRENE BERG Rep #: [id number] : 1950 F 74 From: Karthik Almanzar MD PCP: Dr. Delta Sahu MD Status: REG ER Study: Abdomen/Pelvis W IV Cont ONLY Date of Exam: Exam# [id number] Ordering Dr: Joe Zavaleta DO PROCEDURE: ABDOMEN/PELVIS W IV CONT ONLY, 07/02/2024 REASON FOR EXAM: CONSTIPATION, ABDOMINAL PAIN TECHNIQUE: CT abdomen and pelvis was performed with IV contrast. Multiplanar reformats were generated. CONTRAST: Isovue-300 VOLUME: 100mL RADIATION DOSE SUMMARY: CTDlvol: 9.97+ 21.94 mGy DLP: 1178.11 mGycm One or more dose reduction techniques were used (e.g., Automated exposure control, adjustment of the mA and/or kV according to patient size, use of iterative reconstruction technique). COMPARISON: 10/17/2022 FINDINGS: Streak artifact related to lumbar spinal fusion hardware. Lung bases: Minimal atelectasis/scarrin g.. Liver: Unremarkable. Spleen: Unremarkable. Gallbladder: Distended without calcified stones, convincing inflammation, or biliary dilatation. Pancreas: Similar small calcification in the pancreatic head adjacent to the distal CBD. Adrenals: Unremarkable. Kidneys: Unremarkable. Bowel: Transverse duodenal diverticulum. High rectosigmoid colonic stool burden. Rectum distended to 9.1 x 6.8 cm.. trace surrounding stranding in the mesorectum and presacral region. Upstream colonic stool burden is moderate and mostly RIGHT-sided. Upstream liquid context suggesting malabsorption. Normal caliber appendix. Lymph nodes: Unremarkable. Vasculature: Mild/moderate atherosclerosis.. Peritoneum: As above.. Bladder: Underdistended and suboptimally evaluated, grossly unremarkable. Reproductive Organs: Unremarkable. Body Wall: Tiny fat containing umbilical hernia. Mild nonspecific subcutaneous stranding along the flanks and bilateral hips and lateral proximal lower extremities. Bones: Multilevel spondylosis. L4-L5 spinal fusion with laminectomy. Small fluid collection in the posterior paraspinal operative bed is difficult to delineate, roughly 4.4 x 4.2 cm with surrounding ill-defined fluid and stranding grossly similar to MRI 05/13/2024 allowing for the difference in modality. Thoracolumbar levoscoliosis. CT/Abdomen/Pelvis W IV Cont ONLY IMPRESSION: 1. High rectosigmoid stool burden including a 9.1 cm rectal stool ball. Trace surrounding stranding could reflect early stercoral colitis. Upstream colonic stool burden is moderate and mostly RIGHT-sided. 2. Lumbar spinal operative changes with ill-defined fluid/stranding in the operative bed grossly similar to previous MRI 05/13/2024 allowing for the difference in modality. Appearance may be postoperative and reflect seroma however correlate for clinical evidence of superimposed infection. 3. Distended without calcified stones, convincing inflammation, or biliary dilatation. 4. Additional description as above. Reading Location: [facility] CC: Dr. Monico Zavaleta, DO; Dr. Delta Sahu MD Stone Setter Apprentice: Signed Normal [facility] Absolute lymphocyte countOrd ered By: Monico Zavaleta on 07-02-2024 Lymphocytes Auto (Unsp spec) [#/Vol] 1.58 10*3/uL 0.83-4.51 [facility] Absolute neutrophil countOrd ered By: Monico Zavaleta on 07-02-2024 Neutrophils (Bld) [#/Vol] 10.7 10*3/uL High 2.0-7.7 [facility] Anion gap in Serum or Plasma Ordered By: Monico Zavaleta on 07-02-2024 Anion gap [Moles/Vol] 13 mmol/L 5-15 [facility] Automated lymphocyte count a s percentage of total leukocytesOrdered By: Monico Zavaleta on 07-02-2024 Lymphocytes/100 WBC Auto (Unsp spec) 11.7 % Low 19-41 [facility] BUN/creatinine ratioOrdered By: Monico Zavaleta on 07-02-2024 Urea nitrogen/Creatinine [Mass ratio] 24.4 mg/mg High 10-20 [facility] Basic Metabolic Profile (BMP )on 07-02-2024 BUN/CRE 24.4 RATIO High 10-20 [facility] Comment on above: Performed By: #### L 100.0100, L501.5200, L500.2500 ####[facility] [address] [place], [address] Calcium [Mass/Vol] 9.4 mg/dL Normal 7.6-11.0 [facility] Comment on above: Performed By: #### L 100.0100, L501.5200, L500.2500 ####[facility] [address] [place], [address] Chloride [Moles/Vol] 103 mmol/L Normal 98-108 [facility] Comment on above: Performed By: #### L 100.0100, L501.5200, L500.2500 ####[facility] [address] [place], [address] CO2 [Moles/Vol] 25.0 mmol/L Normal 21.0-32.0 [facility] Comment on above: Performed By: #### L 100.0100, L501.5200, L500.2500 ####[facility] [address] [place], [address] Creatinine [Mass/Vol] 0.66 mg/dL Low 0.70-1.20 [facility] Comment on above: Performed By: #### L 100.0100, L501.5200, L500.2500 ####[facility] [address] [place], [address] GAP 13 Normal 5-15 [facility] Comment on above: Performed By: #### L 100.0100, L501.5200, L500.2500 ####[facility] [address] [place], [address] GFR/1.73 sq M.predicted among non-blacks MDRD (S/P/Bld) [Vol rate/Area] 92 mL/min/{1.73_m2} Normal >60 [facility] Comment on above: Result Comment: mL/m in/1.73m2 CKD-EPI Creatinine Equation (2020) Performed By: #### L 100.0100, L501.5200, L500.2500 ####[facility] [address] [place], [address] Glucose [Mass/Vol] 174 mg/dL High 70-99 [facility] Comment on above: Performed By: #### L 100.0100, L501.5200, L500.2500 ####[facility] [address] [place], [address] Potassium [Moles/Vol] 4.1 mmol/L Normal 3.3-5.1 [facility] Comment on above: Performed By: #### L 100.0100, L501.5200, L500.2500 ####[facility] [address] [place], [address] Sodium [Moles/Vol] 140 mmol/L Normal 133-145 [facility] Comment on above: Performed By: #### L 100.0100, L501.5200, L500.2500 ####[facility] [address] [place], [address] Urea nitrogen [Mass/Vol] 16 mg/dL Normal 4-19 [facility] Comment on above: Performed By: #### L 100.0100, L501.5200, L500.2500 ####[facility] [address] [place], [address] Basophil percentageOrdered B y: Monico Zavaleta on 07-02-2024 Basophils/100 WBC (Bld) 0.3 % 0-1 [facility] CBC W/Diff, Automatedon 06-05 Absolute Lymph 1.58 X10 3/uL Normal 0.83-4.51 [facility] Comment on above: Performed By: #### L 100.0100, L501.5200, L500.2500 ####[facility] [address] [place], [address] Absolute Neut 10.7 X10 3/uL High 2.0-7.7 [facility] Comment on above: Performed By: #### L 100.0100, L501.5200, L500.2500 ####[facility] [address] [place], [address] Basophils/100 WBC (Bld) 0.3 % Normal 0-1 [facility] Comment on above: Performed By: #### L 100.0100, L501.5200, L500.2500 ####[facility] [address] [place], [address] Eosinophils/100 WBC (Bld) 0.6 % Normal 0-5 [facility] Comment on above: Performed By: #### L 100.0100, L501.5200, L500.2500 ####[facility] [address] [place], [address] Erythrocyte distribution width (RBC) [Ratio] 12.2 % Normal 11.6-14.6 [facility] Comment on above: Performed By: #### L 100.0100, L501.5200, L500.2500 ####[facility] [address] [place], [address] Hematocrit (Bld) [Volume fraction] 38.4 % Normal 37-47 [facility] Comment on above: Performed By: #### L 100.0100, L501.5200, L500.2500 ####[facility] [address] [place], [address] Hemoglobin (Bld) [Mass/Vol] 13.1 g/dL Normal 12.0-15.0 [facility] Comment on above: Performed By: #### L 100.0100, L501.5200, L500.2500 ####[facility] [address] [place], [address] IG% 0.400 Normal 0.0-0.9 [facility] Comment on above: Result Comment: IG% - Immature Granulocytes (promyelocytes, myelocytes and metamyelocytes) > 1% indicates that a LEFT SHIFT is Present. Performed By: #### L 100.0100, L501.5200, L500.2500 ####[facility] [address] [place], [address] Lymphocytes/100 WBC (Bld) 11.7 % Low 19-41 [facility] Comment on above: Performed By: #### L 100.0100, L501.5200, L500.2500 ####[facility] [address] [place], [address] MCH (RBC) [Entitic mass] 32.2 pg High 27.0-32.0 [facility] Comment on above: Performed By: #### L 100.0100, L501.5200, L500.2500 ####[facility] [address] [place], [address] MCHC (RBC) [Mass/Vol] 34.1 g/dL Normal 32-36 [facility] Comment on above: Performed By: #### L 100.0100, L501.5200, L500.2500 ####[facility] [address] [place], [address] MCV (RBC) [Entitic vol] 94.3 fL Normal 81-99 [facility] Comment on above: Performed By: #### L 100.0100, L501.5200, L500.2500 ####[facility] [address] [place], [address] Monocytes/100 WBC (Bld) 7.2 % Normal 0-10 [facility] Comment on above: Performed By: #### L 100.0100, L501.5200, L500.2500 ####[facility] [address] [place], [address] Neutrophils/100 WBC (Bld) 79.8 % High 47-70 [facility] Comment on above: Performed By: #### L 100.0100, L501.5200, L500.2500 ####[facility] [address] [place], [address] Nucleated RBC (Bld) [#/Vol] 0 10*3/uL Normal 0-5 [facility] Comment on above: Performed By: #### L 100.0100, L501.5200, L500.2500 ####[facility] [address] [place], [address] Platelet mean volume (Bld) [Entitic vol] 9.1 fL Normal 6.2-12.0 [facility] Comment on above: Performed By: #### L 100.0100, L501.5200, L500.2500 ####[facility] [address] [place], [address] Platelets (Bld) [#/Vol] 500 10*3/uL High 150-450 [facility] Comment on above: Performed By: #### L 100.0100, L501.5200, L500.2500 ####[facility] [address] [place], [address] RBC (Bld) [#/Vol] 4.07 10*6/uL Low 4.2-5.4 [facility] Comment on above: Performed By: #### L 100.0100, L501.5200, L500.2500 ####[facility] [address] [place], [address] RDW SD 42.3 fl Normal 35.1-43.9 [facility] Comment on above: Performed By: #### L 100.0100, L501.5200, L500.2500 ####[facility] [address] [place], [address] WBC (Bld) [#/Vol] 13.5 10*3/uL High 4.4-11.0 [facility] Comment on above: Performed By: #### L 100.0100, L501.5200, L500.2500 ####[facility] [address] [place], [address] Carbon dioxide, total [Moles /volume] in Central venous bloodOrdered By: Monico Zavaleta on 07-02-2024 CO2 [Moles/Vol] 25.0 mmol/L 21.0-32.0 [facility] Chloride assayOrdered By: Henry Zavaleta on 07-02-2024 Chloride [Moles/Vol] 103 mmol/L 98-108 [facility] Emergency Department Summary on 07-02-2024 Emergency Department Summary [facility] Medical Records Department [address] [place] [address] Emergency Department Summary 07/02/24 MR#: [id number] Acct: [id number] Name: IRENE BERG Rep #: [id number] : 1950 74 From: Monico Zavaleta DO PCP: Dr. Delta Sahu MD Status:ADM JASON Location: [place] [address] Monico Zavaleta DO on 07/02/24 at 1557 Shortly after being admitted. Patient passed a large stool ball. She feels improved. Dr. Butler talked to general surgery, and okay with discharge home given the passage of stool. Follow-up outpatient with PCP. Continue bowel regimen. Patient in agreement to plan. She is comfortable with discharging home. Will be discharged after second enema. 07/02/24 1557 Cosigner Signature (if applicable): cc: Dr. Delta Sahu MD * Signed HPI History of Present Illness Chief Complaint: Constipation Narrative Narrative: Chief complaint and HPI: Constipation. 74-year-old female with recent left knee surgery presents for evaluation of constipation. Patient states approximately 1 week ago she had surgery of the left knee by Dr. Kruger. She states that she originally was taking oxycodone as scheduled however she has now been taking it intermittently. She states that she was prescribed a stool softener which she has been taking. She also endorses taking MiraLAX, milk of magnesium, and eating prunes. She states that she feels like she needs to have a bowel movement but that she is unable to relieve herself. Her last bowel movement was approximately 1 week ago. Associated symptom is nausea, diffuse abdominal pain, and bloating. She denies any fever, chills, shortness of breath, chest pain, dysuria. Review of systems: See HPI Medications: As listed on the chart Allergies: As listed on the chart PFSH: Per chart Vital signs: As listed on the chart. Reviewed. Physical exam: Gen: A O x3, NAD Head: Normocephalic, atraumatic Eyes: No sclera icterus, conjunctiva clear ENT: Moist mucous membranes Neck: Trachea midline, No JVD CV: RRR, no murmurs, no peripheral edema Resp: Lungs CTA BL, no w/r/c GI: Abd soft, mildly distended, mild diffuse tenderness to palpation, no r/r/g Rectal: Normal external examination. No evidence of hemorrhoids or fissures. Normal tone and sensation. No pain out of proportion. Large stool ball in the rectum-was able to partially disimpact, brown stool Musc: Full ROM, no deformity Skin: Warm, dry Neuro: Alert, oriented, grossly intact, sensation intact Psych: Cooperative, appropriate mood and affect [facility] Medical History Abnormal finding present on diagnostic imaging of uterus Health care maintenance Trigger finger, right Memory changes Left shoulder pain Chronic constipation OAB (overactive bladder) Umbilical discharge Lumbar stenosis Wears dentures Depression Arthritis Bladder disease High cholesterol Back pain Injury of head and neck Difficulty swallowing History of ulceration Heartburn Shortness of breath on exertion Non-smoker On home oxygen therapy Leg cramps History of Holter monitoring History of echocardiogram History of edema Cardiology follow-up encounter History of irregular heartbeat Hx of fracture of ankle Flu vaccine need Preoperative evaluation to rule out surgical contraindication Anxiety and depression Spinal stenosis Urinary frequency Venous insufficiency of both lower extremities Chronic abdominal pain Left arm pain Edema of left upper arm Leg pain, left Palpitations Essential hypertension Edema of both lower legs MRSA (methicillin resistant Staphylococcus aureus) infection Ulcer of left lower extremity with fat layer exposed Other acute postprocedural pain Thyroid disease Lupus Hearing problem Headache History of blood clots Open wound of left lower leg due to animal bite Abscess of left lower leg Cellulitis of left anterior lower leg Bitten by pig, initial encounter Skin necrosis Post-menopausal CPAP (continuous positive airway pressure) dependence On home oxygen therapy History of stress test Scarlet fever Morbid obesity Avulsion injury Animal bite Laceration COVID-19 Suspected COVID-19 virus infection Acute respiratory failure with hypoxia Dislocation of right ankle joint Syndesmotic disruption of right ankle Bimalleolar fracture of right ankle History of left heart catheterization (LHC) ( 07/19/18) SOB (shortness of breath) HESHAM (obstructive sleep apnea) Pulmonary hypertension Essential hypertension Sebaceous cyst Osteoarthritis Urinary incontinence Mood disorder Edema Hyperlipidemia Home Medications ???Medication ???Instructions ???Recorded ???Last Taken ???Type potassium chloride 20 mEq 20 meq PO DAILY #90 ta (more content not included)... Normal [facility] Eosinophil percentageOrdered By: Monico Zavaleta on 07-02-2024 Eosinophils/100 WBC (Bld) 0.6 % 0-5 [facility] Erythrocyte distribution wid th ratioOrdered By: Alamo Waqar on 07-02-2024 Erythrocyte distribution width (RBC) [Ratio] 12.2 % 11.6-14.6 [facility] Erythrocyte distribution wid th standard deviationOrdered By: Monico Brad Elkins on 07-02-2024 Erythrocyte distribution width (RBC) [Ratio] 42.3 fl 35.1-43.9 [facility] Glomerular filtration rate ( GFR) estimation/1.73 sq m using serum, plasma, or whole bOrdered By: Monico Zavaleta on 07-02-2024 GFR/1.73 sq M.predicted among non-blacks MDRD (S/P/Bld) [Vol rate/Area] 92 mL/min/{1.73_m2} >60 [facility] Comment on above: mL/min/1.73m2 CKD-EP I Creatinine Equation (2020) Hematocrit Auto (Bld) [Volum e fraction]Ordered By: Monicokaren Zavaleta on 07-02-2024 Hematocrit (Bld) [Volume fraction] 38.4 % 37-47 [facility] Hemoglobin measurementOrdere d By: Monico Zavaleta on 07-02-2024 Hemoglobin (Bld) [Mass/Vol] 13.1 g/dL 12.0-15.0 [facility] Immature granulocytes/100 WB C Auto (Bld)Ordered By: Alamo Waqar on 07-02-2024 Immature granulocytes/100 WBC (Bld) 0.400 % 0.0-0.9 [facility] Comment on above: IG% - Immature Granu locytes (promyelocytes, myelocytes and metamyelocytes) > 1% indicates that a LEFT SHIFT is Present. MCV (mean corpuscular volume ) determinationOrdered By: White HospitalWilliam on 07-02-2024 MCV (RBC) [Entitic vol] 94.3 fL 81-99 [facility] Magnesiumon 07-02-2024 Magnesium [Mass/Vol] 2.1 mg/dL Normal 1.5-2.2 [facility] Comment on above: Performed By: #### L 100.0100, L501.5200, L500.2500 ####[facility] [address] [place], [address] Magnesium measurement (mass/ volume)Ordered By: Monico Zavaleta on 07-02-2024 Magnesium (Unsp spec) [Mass/Vol] 2.1 mg/dL 1.5-2.2 [facility] Mean corpuscular hemoglobin (MCH) determinationOrdered By: [facility] on 07-02-2024 MCH (RBC) [Entitic mass] 32.2 pg High 27.0-32.0 [facility] Mean corpuscular hemoglobin concentration (MCHC) determinationOrdered By: [facility] on 07-02-2024 MCHC (RBC) [Mass/Vol] 34.1 g/dL 32-36 [facility] Mean platelet volume determi nationOrdered By: Monico Zavaleta on 07-02-2024 Platelet mean volume (Bld) [Entitic vol] 9.1 fL 6.2-12.0 [facility] Monocyte percentageOrdered B y: Monico Zavaleta on 07-02-2024 Monocytes/100 WBC (Bld) 7.2 % 0-10 [facility] Neutrophil percentageOrdered By: Monico Zavaleta on 07-02-2024 Neutrophils/100 WBC (Bld) 79.8 % High 47-70 [facility] Nucleated red blood cell per centageOrdered By: Monico Zavaleta on 07-02-2024 Nucleated RBC/100 WBC (Bld) [Ratio] 0 % 0-5 [facility] Platelet countOrdered By: Henry Zavaleta on 07-02-2024 Platelets (Bld) [#/Vol] 500 10*3/uL High 150-450 [facility] Potassium measurement (mass/ volume)Ordered By: Monico Zavaleta on 07-02-2024 Potassium (Unsp spec) [Mass/Vol] 4.1 mmol/L 3.3-5.1 [facility] RBC Auto (Bld) [#/Vol]Ordere d By: Monico Zavaleta on 07-02-2024 RBC (Bld) [#/Vol] 4.07 10*6/uL Low 4.2-5.4 [facility] Serum creatinine measurement (mass/volume)Ordered By: Monico Zavaleta on 07-02-2024 Creatinine [Mass/Vol] 0.66 mg/dL Low 0.70-1.20 [facility] Serum glucose measurement (m ass/volume)Ordered By: Monico Zavaleta on 07-02-2024 Glucose [Mass/Vol] 174 mg/dL High 70-99 [facility] Serum or plasma calcium nguyen urement (mass/volume)Ordered By: Monico Elkins on 07-02-2024 Calcium [Mass/Vol] 9.4 mg/dL 7.6-11.0 [facility] Serum or plasma urea nitroge n measurement (mass/volume)Ordered By: Monico Zavaleta on 07-02-2024 Urea nitrogen [Mass/Vol] 16 mg/dL 4-19 [facility] Sodium levelOrdered By: Joe anne Waqar on 07-02-2024 Sodium [Moles/Vol] 140 mmol/L 133-145 [facility] White blood cell (WBC) count Ordered By: Monico [facility] on 07-02-2024 WBC (Bld) [#/Vol] 13.5 10*3/uL High 4.4-11.0 [facility] Inital Evaluation (1) - PTon 06-30-2024 Inital Evaluation (1) - PT [facility] Physical Therapy [facility] [address] [place] [address] / REHABILITATION SERVICES INITIAL EVALUATION MR#: [id number] Acct: [id number] Name: IRENE BERG Rep #: [id number] : 1950 74 From: Pravin ELKINST Referring Dr.: Wilber Yadav PA-C Status: REG R CR Insurance: MEDICARE PART A B [facility] Patient's Visit Information Visit Information Visit Information: IRENE BERG is a 74 year old F referred to Physical Therapy by Raj Yadav PA-C with a diagnosis of L TKE, DOS: 06/24/24. Date of Evaluation: 06/30/24 Physical Therapist: Pravin Higgins DPT Visit Plan Frequency: 2-3x /Week Duration: 6 Weeks Plan: 1) L knee ROM to 0-0-120deg. 2) edema control 3) LE strengthening progressing to functional strengthening 4) vaso and ice as needed. Subjective Subjective: Pt. is here today for her initial evaluation with diagnosis of L TKA, DOS 06/24/24. Pt. reports overall doing well she arrives with use of FWW today. Pt. reports pain being better since this weekend. Pt. is sleeping well. No N/T, no chest pains, no calf pain. Pt. repots being HEP compliant with exercises given from hospital. Pt. reports having stiffness, but not severe. Pt. is doing most activities at home. Pt. does use a walker for all mobility. Bandage in place stiff form surgery. Pt. is hopeful to get back to all recreational activities. Pt. Pain L knee: Pain Intensity (Out of 10): 5 Pain Intensity Range: 3 and 8 Objective Objective: POSTURE: Pt. has fairly normal posture. [place] wt. shift to R side in stance and uses FWW. PALPATION: Pt. has negative homans sign. Pt. has increased edema. Knee still has bandage. Pt. to remove this weekend. NEURO: normal ROM: PROM 0-8-92deg. MMT: LLE: knee: ext 2#, flexion 5#; hip: flexion 0#, abd 4#. RLE: knee: ext 21#, flexon 18#; hip: flexionL: 18#, abd 17#. GAIT: Pt. ambulates with FWW with good tolerance. Pt. has some lack of TKE during stance and decreased knee flexion during swing phase. STAIRS: Pt. is able to complete with Favio and is very fatiguing with step to pattern. Balance/Special Test Scores TUG Test Time Seconds: 37 30 Second Chair Rise Test Seconds: 7 WOMAC Total Score: 96 WOMAC Percentatge: 0 Goals Goal 1:: LTG: Pt. to be I with HEP. Goal Time Frame: 4-6 Weeks Goal 2:: STG: Pt. to have increased L knee ROM to 0-0-120deg. Goal Time Frame: 2-4 Weeks Goal 3:: LTG: Pt. to have symmetrical strength between BLEs. Goal Time Frame: 4-6 Weeks Goal 4:: LTG: Pt. to ambulate with out AD with normal gait pattern without issues. Goal Time Frame: 4-6 Weeks Goal 5:: LTG: Pt. to negotiate 1 flight stairs with1 HR with reciprocal pattern. Goal Time Frame: 4-6 Weeks Goal 6:: LTG: pt. to complete TUG with less than 10 seconds without use of AD. Goal Time Frame: 4-6 Weeks Rehabilitation Potential Physical Therapy Diagnosis: Pt. has signs and symptoms consistent with L TKE, DOS: 06/24/24 with subsequent hypomobility, weakness, increased pain and difficulty with functional mobility. Pt. would benefit from PT to address the above limitations to progress back to all recreational and household activities. Rehabilitation Potential: Excellent Anticipated Interventions Patient/Client Instruction: Educate patient on: Condition, Plan of Care, Risk Factors and Benefits of Fitness Program For the Purpose of:: To improve decision making, To facilitate caregiver knowledge, To improve self management, To prevent re-injury and To improve ability to perform tasks related to life management Therapeutic Exercise to Include: Strength training, Endurance training, Balance training, Coordination, Flexibilty training, Passive ROM and Active ROM For the Purpose of:: To decrease pain, To decrease swelling/inflammati on, To increase ROM, To improve nutrient delivery to tissue, To increase oxygenation perfusion, To improve muscle performance and motor function and To improve ability to perform ADL's Manual Therapy Techniques to Include: Mobilization, Passive ROM and Soft tissue mobilization For the Purpose of:: To increase ROM, To improve nutrient delivery to tissue, To increase oxygenation perfusion, To improve muscle performance and motor function, To improve ability to perform ADL's, To improve health of tissue, To decrease soft tissue restriction and To increase flexibility/ROM Cryotherapy (ice pack, ice massage): Yes Vasopneumatic device: Yes For the Purpose of:: To decrease pain, To decrease swelling/inflammati on and To increase ROM Text: Thank you for the opportunity to evaluate your patient. For Medicare and Medicare HMO plans, please review the plan of care and approve it. It will need to be FAXED BACK to us at [phone] for Medicare purposes. For Medicare only, by signing this I certify the plan of care. (more content not included)... Normal [facility] .Auto Diffon 06-25-2024 Basophil, Absolute 0.0 10 3/mcL Normal 0.0-0.3 [facility] Comment on above: Performed By: #### C BC, ANEU, BMP, ADIFF, GFR #### [address] [place], [place] [address] Basophils/100 WBC (Bld) 0.0 % Normal 0.0-2.5 [facility] Comment on above: Performed By: #### C BC, ANEU, BMP, ADIFF, GFR #### [address] [place], [place] [address] Eosinophil, Absolute 0.0 10 3/mcL Normal 0.0-0.7 [facility] Comment on above: Performed By: #### C BC, ANEU, BMP, ADIFF, GFR #### [address] [address] Eosinophils/100 WBC (Bld) 0.0 % Normal 0.0-6.0 [facility] Comment on above: Performed By: #### C BC, ANEU, BMP, ADIFF, GFR #### [address] [address] Lymphocyte, Absolute 1.2 10 3/mcL Normal 0.9-4.3 [facility] Comment on above: Performed By: #### C BC, ANEU, BMP, ADIFF, GFR #### [address] [address] Lymphocytes/100 WBC (Bld) 10.2 % Low 20.0-40.0 [facility] Comment on above: Performed By: #### C BC, ANEU, BMP, ADIFF, GFR #### [address] [address] Monocyte, Absolute 0.7 10 3/mcL Normal 0.1-1.4 [facility] Comment on above: Performed By: #### C BC, ANEU, BMP, ADIFF, GFR #### [address] [address] Monocytes/100 WBC (Bld) 6.3 % Normal 2.0-13.0 [facility] Comment on above: Performed By: #### C BC, ANEU, BMP, ADIFF, GFR #### [address] [address] Neutrophils/100 WBC (Bld) 83.5 % High 50.0-75.0 [facility] Comment on above: Performed By: #### C BC, ANEU, BMP, ADIFF, GFR #### [address] [address] .GFRon 06-25-2024 Estimated Glomerular Filtration Rate 95 ml/min/1.73sqm Normal [facility] Comment on above: Result Comment: Stages of Chronic Kidney Disease (CKD) Stage Description eGFR(ml/min/1.73 sq.m.) CKD 1 Normal kidney function or >=90 normal kindney function with possible kidney damage (ex. Proteinuria) CKD 2 Kidney damage with mild loss 60-89 of kidney function CKD 3a Mild to moderate loss of kidney 45-59 function CKD 3b Moderate to severe loss of 30-44 of kindey function CKD 4 Severe loss of kidney function 15-29 CKD 5 Kidney failure <15 Note: (go live 2024) the eGFR calculation was updated to the 2020 CKD-EPI creatinine equation without a race factor to calculate the eGFR results. Performed By: #### C BC, ANEU, BMP, ADIFF, GFR #### [address] [address] .NEUABSon 06-25-2024 Neutrophil, Absolute 9.7 10 3/mcL High 2.3-8.1 [facility] Comment on above: Performed By: #### C BC, ANEU, BMP, ADIFF, GFR #### [address] [address] BMPon 06-25-2024 BUN/Creatinine Ratio 35 ratio High 7-27 [facility] Comment on above: Performed By: #### C BC, ANEU, BMP, ADIFF, GFR #### [address] [address] Calcium [Mass/Vol] 8.5 mg/dL Normal 8.4-10.2 [facility] Comment on above: Performed By: #### C BC, ANEU, BMP, ADIFF, GFR #### [address] [address] Chloride [Moles/Vol] 106 mmol/L Normal 98-107 [facility] Comment on above: Performed By: #### C BC, ANEU, BMP, ADIFF, GFR #### [address] [address] CO2 [Moles/Vol] 26 mmol/L Normal 23-31 [facility] Comment on above: Performed By: #### C BC, ANEU, BMP, ADIFF, GFR #### [address] [address] Creatinine [Mass/Vol] 0.57 mg/dL Normal 0.51-0.95 [facility] Comment on above: Performed By: #### C BC, ANEU, BMP, ADIFF, GFR #### [address] [address] Electrolyte Balance 9.0 mEq/L Normal 4.0-15.0 [facility] Comment on above: Performed By: #### C BC, ANEU, BMP, ADIFF, GFR #### [place] [address] Glucose [Mass/Vol] 227 mg/dL High 83-110 [facility] Comment on above: Performed By: #### C BC, ANEU, BMP, ADIFF, GFR #### [address] [place] [address] Potassium [Moles/Vol] 4.6 mmol/L Normal 3.5-5.1 [facility] Comment on above: Performed By: #### C BC, ANEU, BMP, ADIFF, GFR #### [place] [address] Sodium [Moles/Vol] 141 mmol/L Normal 136-145 [facility] Comment on above: Performed By: #### C BC, ANEU, BMP, ADIFF, GFR #### [place] [address] Urea nitrogen [Mass/Vol] 20 mg/dL High 7-18 [facility] Comment on above: Performed By: #### C BC, ANEU, BMP, ADIFF, GFR #### [address] [address] CBCon 06-25-2024 Erythrocyte distribution width (RBC) [Ratio] 12.7 % Normal 11.5-15.5 [facility] Comment on above: Performed By: #### C BC, ANEU, BMP, ADIFF, GFR #### [address] [address] Hematocrit (Bld) [Volume fraction] 35.6 % Normal 34.0-46.0 [facility] Comment on above: Performed By: #### C BC, ANEU, BMP, ADIFF, GFR #### [address] [address] Hgb 12.0 G/dL Normal 12.0-16.0 [facility] Comment on above: Performed By: #### C BC, ANEU, BMP, ADIFF, GFR #### [address] [address] MCH (RBC) [Entitic mass] 32.3 pg Normal 27.0-33.0 [facility] Comment on above: Performed By: #### C BC, ANEU, BMP, ADIFF, GFR #### [place] [address] MCHC 33.8 G/dL Normal 32.0-36.0 [facility] Comment on above: Performed By: #### C BC, ANEU, BMP, ADIFF, GFR #### [address] [address] MCV (RBC) [Entitic vol] 95.6 fL Normal 80.0-99.0 [facility] Comment on above: Performed By: #### C BC, ANEU, BMP, ADIFF, GFR #### [address] [address] Platelet 304 10 3/mcL Normal 150-450 [facility] Comment on above: Performed By: #### C BC, ANEU, BMP, ADIFF, GFR #### [address] [address] Platelet mean volume (Bld) [Entitic vol] 8.0 fL Normal 6.6-10.5 [facility] Comment on above: Performed By: #### C BC, ANEU, BMP, ADIFF, GFR #### [address] [address] RBC 3.73 10 6/mcL Low 4.10-5.30 [facility] Comment on above: Performed By: #### C BC, ANEU, BMP, ADIFF, GFR #### [facility] [address] [place], [place] [address] WBC 11.6 10 3/mcL High 4.5-10.8 [facility] Comment on above: Performed By: #### C BC, ANEU, BMP, ADIFF, GFR #### [facility] [address] [place], [place] [address] LABORATORYOrdered By: SYSTEM SYSTEM on 06-25-2024 Basophils (Bld) [#/Vol] 0.0 103/mcL Normal 0.0 - 0.3 10^3/mcL AO Workflow SS Basophils/100 WBC (Bld) 0.0 % Normal 0.0 - 2.5 % AO Workflow SS Calcium [Mass/Vol] 8.5 mg/dL Normal 8.4 - 10. 2 mg/dL AO ADM SS Chloride [Moles/Vol] 106 mmol/L Normal 98 - 10 7 mmol/L AO ADM SS CO2 [Moles/Vol] 26 mmol/L Normal 23 - 31 mmol/L AO ADM SS Creatinine [Mass/Vol] 0.57 mg/dL Normal 0.51 - 0.95 mg/dL AO ADM SS Electrolyte Balance 9.0 mEq/L Normal 4.0 - 15 .0 mEq/L AO ADM SS Eosinophil, Absolute 0.0 103/mcL Normal 0.0 - 0 .7 10^3/mcL AO Workflow SS Eosinophils/100 WBC (Bld) 0.0 % Normal 0.0 - 6.0 % AO Workflow SS Erythrocyte distribution width (RBC) [Ratio] 12.7 % Normal 11.5 - 15.5 % AO Workflow SS Estimated Glomerular Filtration Rate 95 ml/min/1.73sqm Invalid Interpretation Code AO Chemistry S Comment on above: Interpretive Data: Stages of Chronic Kidney Disease (CKD) Stage Description eGFR(ml/min/1.73 sq.m.) CKD 1 Normal kidney function or >=90 normal kindney function with possible kidney damage (ex. Proteinuria) CKD 2 Kidney damage with mild loss 60-89 of kidney function CKD 3a Mild to moderate loss of kidney 45-59 function CKD 3b Moderate to severe loss of 30-44 of kindey function CKD 4 Severe loss of kidney function 15-29 CKD 5 Kidney failure <15 Note: (go live 2024) the eGFR calculation was updated to the 2020 CKD-EPI creatinine equation without a race factor to calculate the eGFR results. Glucose [Mass/Vol] 227 mg/dL High 83 - 110 mg/dL AO ADM SS Hematocrit (Bld) [Volume fraction] 35.6 % Normal 34.0 - 46.0 % AO Workflow SS Hemoglobin (Bld) [Mass/Vol] 12.0 G/dL Normal 12.0 - 16.0 G/dL AO Workflow SS Lymphocytes (Bld) [#/Vol] 1.2 103/mcL Normal 0.9 - 4.3 10^3/mcL AO Workflow SS Lymphocytes/100 WBC (Bld) 10.2 % Low 20.0 - 40.0 % AO Workflow SS MCH (RBC) [Entitic mass] 32.3 pg Normal 27. 0 - 33.0 pg AO Workflow SS MCHC 33.8 G/dL Normal 32.0 - 36.0 G/dL AO Workflow SS MCV (RBC) [Entitic vol] 95.6 fL Normal 80.0 - 99.0 fL AO Workflow SS Monocytes (Bld) [#/Vol] 0.7 103/mcL Normal 0.1 - 1.4 10^3/mcL AO Workflow SS Monocytes/100 WBC (Bld) 6.3 % Normal 2.0 - 13.0 % AO Workflow SS Neutrophils (Bld) [#/Vol] 9.7 103/mcL High 2.3 - 8.1 10^3/mcL AO Workflow SS Neutrophils/100 WBC (Bld) 83.5 % High 50.0 - 75.0 % AO Workflow SS Platelet mean volume (Bld) [Entitic vol] 8.0 fL Normal 6.6 - 10.5 fL AO Workflow SS Platelets (Bld) [#/Vol] 304 103/mcL Normal 150 - 450 10^3/mcL AO Workflow SS Potassium [Moles/Vol] 4.6 mmol/L Normal 3.5 - 5.1 mmol/L AO ADM SS RBC (Bld) [#/Vol] 3.73 106/mcL Low 4.10 - 5.3 0 10^6/mcL AO Workflow SS Sodium [Moles/Vol] 141 mmol/L Normal 136 - 145 mmol/L AO ADM SS Urea nitrogen [Mass/Vol] 20 mg/dL High 7 - 18 mg/d L AO ADM SS Urea nitrogen/Creatinine [Mass ratio] 35 ratio High 7 - 27 ratio AO ADM SS WBC (Bld) [#/Vol] 11.6 103/mcL High 4.5 - 10.8 10^3/mcL AO Workflow SS ABO/Rh (Gel)on 06-24-2024 ABO/Rh Interp Positive Invalid Interpretation Code [facility] Comment on above: Performed By: #### A BSGEL, ABOGEL #### [address] [place], [place] [address] ABS (Gel)on 06-24-2024 ABSC Interp (Gel) Negative Normal [facility] Comment on above: Order Comment: kelechi anthony, spoke with Kari. ja Performed By: #### A BSGEL, ABOGEL #### [address] [place], [place] [address] LABORATORYOrdered By: Marina Johnson on 06-24-2024 ABO and Rh group Nom (Bld) Blood group O Rh(D) positive Invalid Interpretation Code AO BB Auto SS Blood group antibody screen Ql Negative ABSC (06/24/24 9:35 AM) Normal AO BB Auto SS US ANESTHESIA BLOCKon 2024 US ANESTHESIA BLOCK ORIGINAL Images acquired, not reported on this accession number. Normal [facility] XR KNEE 1 OR 2 VIEWS LEFTon 06-24-2024 XR KNEE 1 OR 2 VIEWS LEFT ORIGINAL EXAMINATION: TWO XRAY VIEWS OF THE LEFT KNEE 06/24/2024 1:17 pm COMPARISON: CT knee 05/28/2024.. HISTORY: ORDERING SYSTEM PROVIDED HISTORY: Reason for Exam: Status Post Arthroplasty FINDINGS: Status post left knee arthroplasty. Hardware is intact and in appropriate alignment without evidence of loosening. No evidence of periprosthetic fracture. Skin vanessa are noted. Soft tissue gas and small joint effusion along the knee joint is postoperative in etiology. IMPRESSION: Expected postsurgical changes of left knee arthroplasty. Interpreted by: Barry Tellez Preliminary Report By: Barry Tellez Electronically signed By Barry Tellez Dictated Date: 06/24/2024 1:23:18 PM Prelim Date: 06/24/2024 1:25:14 PM Sign Date: 06/24/2024 1:25:14 PM Ordering Provider: CHRISTOPHER SASKIA [facility] Pelvic w/ Transvaginalon Pelvic w/ Transvaginal [facility] Imaging Services [address] [place] [address] Pelvic w/ Transvaginal MR#: [id number] Acct: [id number] Name: IRENE BERG Rep #: [id number] : 1950 F 74 From: Billy perry MD PCP: Dr. Delta Sahu MD Status: REG CLI Study: Pelvic w/ Transvaginal Date of Exam: 06/16/24 Exam# [id number] Ordering Dr: Delta Sahu MD PROCEDURE: PELVIC W/ TRANSVAGINAL REASON FOR EXAM: ABNORMAL UETRINE FINDING TECHNIQUE: Transabdominal and transvaginal pelvic ultrasound COMPARISON: None FINDINGS: Measurements: Uterus: 7.4 cm x 4.7 cm x 3.5 cm with a volume of 63.1 mL Endometrial Thickness: 1.6 mm Right Ovary: Not visualized. Left Ovary: Not visualized. TRANSABDOMINAL: Uterus: 8 mm x 7 mm x 8 mm posterior fundal fibroid. Adjacent to this, there is a 6 mm x 5 mm x 4 mm fibroid. Endometrium: 1.6 mm Right ovary: Not visualized Left ovary: Not visualized Transvaginal sonography was performed to better visualize the endometrium. TRANSVAGINAL: Uterus: Fibroid uterus as described. Endometrium: 1.6 mm Right ovary: Not visualized Left ovary: Not visualized Other adnexal findings: None. Cul-de-sac: No free intraperitoneal fluid identified. Tenderness: No tenderness US/Pelvic w/ Transvaginal IMPRESSION: Small uterine fibroids. The ovaries were not visualized. Reading Location: [facility] CC: Dr. 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 Delta wright MD Age/Sex: 74/F Location: [facility] Status: Signed Intake Vital Signs 05/29/24 12:26 06/06/24 14:15 Height 5 ft 7 in 5 ft 7 in Weight: 248 lb BMI 38.8 BP 142/82 H Blood Pressure Location Lt brachial Position Sitting Respiration 19 H Pulse 98 Pulse Source Monitor Temp 97.0 F L Temp Source Temporal Pulse Oximetry (%) 98 Oxygen Delivery Method room air Intake Visit Reasons: WANTS A REFERRAL FOR OBGYN Chief Complaint: WANTS A REFERRAL FOR OBGYN Is patient in pain?: No Allergies codeine Allergy (Mild, Verified 06/06/24 14:13) roaring sounds, hives, headache Penicillins Allergy (Mild, Verified 06/06/24 14:13) hives Medications ???Medication ???Instructions ???Recorded ???Confirmed ???Type potassium chloride 20 mEq 20 meq PO DAILY #90 tabs 11/08/22 06/06/24 Rx tablet,extended release hydrocortisone 2.5 % topical cream 1 applic topical BID PRN rash #3 0 05/03/23 06/06/24 Rx grams acetaminophen 650 mg 650 mg PO Q12H PRN 06/12/23 History tablet,extended release (Tylenol Arthritis Pain) amlodipine 5 mg tablet 5 mg PO DAILY #90 tabs 06/12/23 Rx aspirin 81 mg tablet,delayed 81 mg PO DAILY #90 tabs 06/12/23 0 06/06/24 Rx release ascorbate calcium (vitamin C) PO DAILY 12/05/23 06/06/24 History cholecalciferol (vitamin D3) [Baby PO DAILY 12/05/23 06/06/24 Histo ry Vitamin D3] lions marvin PO DAILY 12/05/23 06/06/24 History red beet 250 mg-sour johnson tab PO 12/05/23 06/06/24 History extract 0.5 mg chewable tablet vitamin C 45 mg-zinc citrate 3.75 tab PO 12/05/23 06/06/24 History mg-elderberry 50 mg chewable tablet (Baoku) vitamin E (dl, acetate) PO DAILY 12/05/23 06/06/24 History mecobalamin (vitamin B12) 500 mcg mcg PO 01/21/24 06/06/24 History chewable tablet prevagen .Route 01/21/24 06/06/24 History olmesartan 40 mg tablet 40 mg PO QHS #90 tabs 04/10/2406/27 Rx naltrexone 8 mg-bupropion 90 mg 2 tab PO BID 3 months #360 tabs 05/29/24 Rx tablet,extended release (Contrave) venlafaxine 150 mg 150 mg PO DAILY #90 caps 04/28/24 06/06/24 Rx capsule,extended release 24 hr mirabegron 25 mg tablet,extended 25 mg PO QDAY #30 tabs 04/29/24 Rx release 24 hr (Myrbetriq) lorazepam 1 mg tablet (Ativan) 1 mg PO BID PRN claustrophobia #2 05/12/24 06/06/24 Rx tabs furosemide 40 mg tablet 40 mg PO BID fluid #180 tabs 05/2806/06/24 Rx Have you fallen in the past year?: No Nurse's Note: pt reports that Dr. Kruger noted an area of concern in her recent CT scan, advised her to see OB. She would like to see Dr. Paul at [facility] Medical History (Updated 06/06/24 @ 14:[address] Delta Sahu MD) Abnormal finding present on diagnostic imaging of uterus Health care maintenance Trigger finger, right Memory changes Left shoulder pain Chronic constipation OAB (overactive bladder) Umbilical discharge Lumbar stenosis Wears dentures Depression Arthritis Bladder disease High cholesterol Back pain Injury of head and neck Difficulty swallowing History of ulceration Heartburn Shortness of breath on exertion Non-smoker On home oxygen therapy Leg cramps History of Holter monitoring History of echocardiogram History of edema Cardiology follow-up encounter History of irregular heartbeat Hx of fracture of ankle Flu vaccine need Preoperative evaluation to rule out surgical contraindication Anxiety and depression Spinal stenosis Urinary frequency Venous insufficiency of both lower extremities Chronic abdominal pain Left arm pain Edema of left upper arm Leg pain, left Palpitations Essential hypertension Edema of both lower legs MRSA (methicillin resistant Staphylococcus aureus) infection Ulcer of left lower extremity with fat layer exposed Other acute postprocedural pain Thyroid disease Lupus Hearing problem Headache History of blood clots Open wound of left lower leg due to animal bite Abscess of left lower leg Cellulitis of left anterior lower leg Bitten by pig, initial encounter Skin necrosis Post-menopausal CPAP (continuous positive airway pressure) dependence On home oxygen therapy History of stress test Scarlet fever Morbid obesity Avulsion injury Animal bite Laceration COVID-19 Suspected COVID-19 virus infection Acute respiratory failure with hypoxia Dislocation of right ankle joint Syndesmotic disruption of right ankle Bimalleolar fracture of right ankle History of left h (more content not included)... Normal [facility] GFR/1.73 sq M.predicted genesis g non-blacks MDRD (S/P/Bld) [Vol rate/Area]Ordered By: Christopher Kruger on 06-04-2024 Estimated GFR (MDRD) Non-Af Amer 92 >60 [facility] Comment on above: mL/min/1.73m2 CKD-EP I Creatinine Equation (2020) Glomerular filtration rate ( GFR) estimation/1.73 sq m using serum, plasma, or whole bOrdered By: Christopher Kruger on 06-04-2024 GFR/1.73 sq M.predicted among non-blacks MDRD (S/P/Bld) [Vol rate/Area] 92 mL/min/{1.73_m2} >60 [facility] Comment on above: mL/min/1.73m2 CKD-EP I Creatinine Equation (2020) Modified Barium Swallow Stud n 06-04-2024 Modified Barium Swallow Study [facility] Speech Pathology [address] [place] [address] Modified Barium Swallow Study MR#: [id number] Acct: [id number] Name: IRENE BERG Rep #: [id number] : 1950 74 From: Cammy Mabry M.A. [employer] made error inputting the study date. Study was completed on 06/03/2024. Modified Barium Swallow Patient Information Study Date: 06/04/24 Study Time: 13:00 Direct Billable Minutes: 80 Total Minutes procedure reportin Diagnosis: Dysphagia R13.10 Referring Physician: Delta Sahu Reason for Referral: Assess swallow function, assess risk for aspiration, and determine recommendations for least restrictive diet textures and compensatory strategies to improve safety of swallow. Medical History: The patient reports hx of difficulty swallowing for years (pt unsure exact duration) characterized by sensation of throat being crowded, dryness in mouth/throat, food sitting in her throat (improving w/ liquid wash), coughing on her own saliva, regurgitated food into throat 1X. Her PCP referred her for MBSS to further assess concerns for swallowing difficulty. Current Diet Ordered: Regular textures / Thin liquids Dentition: Upper Dentures and Lower Dentures Mental Status: WNL Respiratory Status: Oxygenating on Room Air Penetration-Aspirat ion Scale Penetration-Aspirat ion Scale: OBJECTIVE ASSESSMENT OF SWALLOW FUNCTION (QUANTITATIVE ??? PER TRIAL): PENETRATION / ASPIRATION SCALE (ROJAS): 1 = does not enter airway 2 = enters airway/above vocal folds/ejected 3 = enters airway/above vocal folds/not ejected 4 = enters airway/contacts vocal folds/ejected 5 = enters airway/contacts vocal folds/not ejected 6 = enters airway/below vocal folds/ejected 7 = enters airway/below vocal folds/not ejected despite effort 8 = enters airway/below vocal folds/no effort VIDEOFLOROSCOPIC SCALE SCORE (ROJAS): Grade I = aspiration of material that has penetrated into the laryngeal vestibule, intact cough reflex Grade II = aspiration < 10 % of the bolus, intact cough reflex Grade III = aspiration of < 10 % of the bolus, reduced cough reflex or aspiration of > 10 % of the bolus, intact cough reflex Grade IV = aspiration of > 10 % of the bolus, reduced cough reflex Penetration-Aspirat ion Scale Score Thin Liquid via teaspoon: Result: 2= enter airway/above vocal folds/ejected Thin Liquid via teaspoon Trial 2: Result: 2= enter airway/above vocal folds/ejected Thin Liquid via small single sip: cup: Result: 2= enter airway/above vocal folds/ejected Thin Liquid via sequential sips: cup: Result: 4= enters airway/contacts vocal folds/ejected Comment: Esophageal screen - Complete clearance. [place] Thick Liquid via small single sip: cup: Result: 1= does not enter airway Pudding via teaspoon: Result: 1= does not enter airway Comment: Esophageal screen - Complete clearance. /2 Cookie: Result: 1= does not enter airway Comment: Esophageal screen - Retention in lower and middle esophagus. Thin Liquid via sequential sips:straw: Result: 2= enter airway/above vocal folds/ejected Comment: Esophageal screen - Complete clearance. Oral Phase Labial Seal: Interlabial escape, no progression to anterior lip Tongue Control During Bolus Hold: Posterior escape of greater than half of bolus Bolus Preparation/Mastica tion: Timely and efficient chewing and mashing (Small pieces of cookie un- chewed) Bolus Transport/Lingual Motion: Delayed initiation of tongue motion Oral Residue: Residue collection on oral structures Pharyngeal Phase Initiation of Pharyngeal Swallow: Bolus head in pyriforms Soft Palate Elevation: Trace column of contrast/air between soft palate and pharyngeal wall Laryngeal Elevation: Comp. Superior move thyroid cart w/comp. apprx arytenoid cart-epig pet Anterior Hyoid Excursion: Partial anterior movement Epiglottic Movement: Complete inversion Laryngeal Vestibule Closure at Height of Swallow: Incomplete; narrow column of air/contrast in laryngeal vestibule Pharyngeal Stripping Wave: Present - diminished Pharyngoesophageal Segment Opening: Parital distension and partial duration; parital obstruction of flow Tongue Base Retraction: Narrow column of contrast between tongue base post. pharyngeal wall Pharyngeal Residue: Collection of residue within or on pharyngeal structures Esophageal Phase Esophageal Clearance: Esophageal retention Diagnosis/Impressio n Diagnosis: Mild oropharyngeal dysphagia R13.12; Esophageal dysphagia R13.14 Impression: The oral phase is marked by... -Timely mastication; however, small pieces of cookie un-chewed. -Posterior loss of 50% of thin liquids to the pyriform sinuses prior to swallow onset. -Delayed tongue motion for A-P transport. -Trace-mild oral residues. The pharyngeal phase is marked by... -Delayed swallow onset. -Trace-mild pharyngeal residues due to decreased TB retrac (more content not included)... Normal [facility] Serum Creatinine AND GFRon 0 - Creatinine [Mass/Vol] 0.65 mg/dL Low 0.70-1.20 [facility] Comment on above: Performed By: #### L [id number] ####[facility] [id number] [place], [address] GFR/1.73 sq M.predicted among non-blacks MDRD (S/P/Bld) [Vol rate/Area] 92 mL/min/{1.73_m2} Normal >60 [facility] Comment on above: Result Comment: mL/m in/1.73m2 CKD-EPI Creatinine Equation (2020) Performed By: #### L [id number] ####[facility] [id number] [place], [address] Serum creatinine measurement (mass/volume)Ordered By: Christopher Kruger on 06-04-2024 Creatinine [Mass/Vol] 0.65 mg/dL Low 0.70-1.20 [facility] Internal Medicine Office Vis iton 05-29-2024 Internal Medicine Office Visit [facility] [address] [place] [address] [place] [address] OFFICE VISIT Date of Service: 05/29/24 MR#: [id number] Acct: [id number] Name: IRENE BERG Rep #: [id number] : 1950 Provider: ISABEL Andersen Age/Sex: 74/F Location: [facility] Status: Signed Intake Vital Signs 04/28/24 13:12 05/29/24 12:26 Height 5 ft 7 in 5 ft 7 in Weight: 242 lb 246 lb BMI 37.9 38.5 BP 124/78 H 130/78 H Blood Pressure Location Rt brachial Rt brachial Position Sitting Sitting Respiration 16 16 Pulse 86 78 Pulse Source Monitor Monitor Temp 96.1 F L 97.8 F Temp Source Temporal Temporal Pulse Oximetry (%) 98 96 Oxygen Delivery Method room air room air Intake Visit Reasons: SURGICAL CLEARANCE - KEEP 1 HR Security Guard Required: No Is patient in pain?: Yes (Bilateral knees) Pain scale (1-10): 8 Allergies codeine Allergy (Mild, Verified 05/27/24 08:03) roaring sounds, hives, headache Penicillins Allergy (Mild, Verified 05/27/24 08:03) hives Medications ???Medication ???Instructions ???Recorded ???Confirmed ???Type potassium chloride 20 mEq 20 meq PO DAILY #90 tabs 11/08/22 05/29/24 Rx tablet,extended release hydrocortisone 2.5 % topical cream 1 applic topical BID PRN rash #3 0 05/03/23 05/29/24 Rx grams acetaminophen 650 mg 650 mg PO Q12H PRN 06/12/23 History tablet,extended release (Tylenol Arthritis Pain) amlodipine 5 mg tablet 5 mg PO DAILY #90 tabs 06/12/23 Rx aspirin 81 mg tablet,delayed 81 mg PO DAILY #90 tabs 06/12/23 0 05/29/24 Rx release ascorbate calcium (vitamin C) PO DAILY 12/05/23 05/29/24 History cholecalciferol (vitamin D3) [Baby PO DAILY 12/05/23 05/29/24 Histo ry Vitamin D3] lions marvin PO DAILY 12/05/23 05/29/24 History red beet 250 mg-sour johnson tab PO 12/05/23 05/29/24 History extract 0.5 mg chewable tablet vitamin C 45 mg-zinc citrate 3.75 tab PO 12/05/23 05/29/24 History mg-elderberry 50 mg chewable tablet (Baoku) vitamin E (dl, acetate) PO DAILY 12/05/23 05/29/24 History mecobalamin (vitamin B12) 500 mcg mcg PO 01/21/24 05/29/24 History chewable tablet prevagen .Route 01/21/24 05/29/24 History olmesartan 40 mg tablet 40 mg PO QHS #90 tabs 04/10/24 Rx naltrexone 8 mg-bupropion 90 mg 2 tab PO BID 3 months #360 tabs 05/29/24 Rx tablet,extended release (Contrave) venlafaxine 150 mg 150 mg PO DAILY #90 caps 04/28/24 05/29/24 Rx capsule,extended release 24 hr mirabegron 25 mg tablet,extended 25 mg PO QDAY #30 tabs 04/29/24 Rx release 24 hr (Myrbetriq) lorazepam 1 mg tablet (Ativan) 1 mg PO BID PRN claustrophobia #2 05/12/24 05/29/24 Rx tabs furosemide 40 mg tablet 40 mg PO BID fluid #180 tabs 05/2805/29/24 Rx Have you fallen in the past year?: No Nurse's Note: Pt is here for preop for L knee replacement and R knee steroid injection w/ Dr. Kruger on 06/24/24 EKG already done by them and has preadmission testing through them on 05/26/24. and labs States during that btesting she had a o2 level at 87 and had to deep breathe and cough and it only got to 91. She is concerned because they asked if she had copd or CHF. Needs myrbetric refilled. [facility] Medical History (Updated 05/29/24 @ 21:23 by Gavin HALL, PA) Health care maintenance Trigger finger, right Memory changes Left shoulder pain Chronic constipation OAB (overactive bladder) Umbilical discharge Lumbar stenosis Wears dentures Depression Arthritis Bladder disease High cholesterol Back pain Injury of head and neck Difficulty swallowing History of ulceration Heartburn Shortness of breath on exertion Non-smoker On home oxygen therapy Leg cramps History of Holter monitoring History of echocardiogram History of edema Cardiology follow-up encounter History of irregular heartbeat Hx of fracture of ankle Flu vaccine need Preoperative evaluation to rule out surgical contraindication Anxiety and depression Spinal stenosis Urinary frequency Venous insufficiency of both lower extremities Chronic abdominal pain Left arm pain Edema of left upper arm Leg pain, left Palpitations Essential hypertension Edema of both lower legs MRSA (methicillin resistant Staphylococcus aureus) infection Ulcer of left lower extremity with fat layer exposed Other acute postprocedural pain Thyroid disease Lupus Hearing problem Headache History of blood clots Open wound of left lower leg due to animal bite Abscess of left lower leg Cellulitis of left anterior lower leg Bitten by pig, initial encounter Skin necrosis Post-menopausal CPAP (continuous positive airway pressure) dependence On home oxygen therapy History of stress test Scarlet fever Morbid obesity Avul (more content not included)... Normal [facility] - Hematology and Cell countsOrdered By: Gavin Stafford on 05-29-2024 HbA1c (Bld) [Mass fraction] 6.9 % High 4.2-6.3 [facility] .Auto Diffon 05-28-2024 Basophil, Absolute 0.0 10 3/mcL Normal 0.0-0.2 [facility] Comment on above: Performed By: #### A BSGEL, ABOGEL #### [address] [address] Basophils/100 WBC (Bld) 0.2 % Normal 0.0-2.5 [facility] Comment on above: Performed By: #### A BSVERONIKA ABOGEL #### [address] [address] Eosinophil, Absolute 0.1 10 3/mcL Normal 0.0-0.7 [facility] Comment on above: Performed By: #### A BSVERONIKA, ABOGEL #### [address] [address] Eosinophils/100 WBC (Bld) 1.0 % Normal 0.0-7.0 [facility] Comment on above: Performed By: #### A BSLUCRETIA BANDAGEL #### [address] [address] Lymphocyte, Absolute 2.2 10 3/mcL Normal 0.9-4.3 [facility] Comment on above: Performed By: #### A BSVERONIKA ABOGEL #### [address] [address] Lymphocytes/100 WBC (Bld) 32.6 % Normal 20.0-40.0 [facility] Comment on above: Performed By: #### A BSLUCRETIA BANDAGEL #### [address] [address] Monocyte, Absolute 0.5 10 3/mcL Normal 0.1-1.4 [facility] Comment on above: Performed By: #### A BSVERONIKA ABOGEL #### [address] [address] Monocytes/100 WBC (Bld) 7.6 % Normal 2.0-13.0 [facility] Comment on above: Performed By: #### A BSVERONIKA ABOGEL #### [address] [address] Neutrophils/100 WBC (Bld) 58.6 % Normal 50.0-75.0 [facility] Comment on above: Performed By: #### A BSVERONIKA ABOGEL #### [address] [address] .GFRon 05-28-2024 Estimated Glomerular Filtration Rate 93 ml/min/1.73sqm Normal [facility] Comment on above: Result Comment: Stages of Chronic Kidney Disease (CKD) Stage Description eGFR(ml/min/1.73 sq.m.) CKD 1 Normal kidney function or >=90 normal kindney function with possible kidney damage (ex. Proteinuria) CKD 2 Kidney damage with mild loss 60-89 of kidney function CKD 3a Mild to moderate loss of kidney 45-59 function CKD 3b Moderate to severe loss of 30-44 of kindey function CKD 4 Severe loss of kidney function 15-29 CKD 5 Kidney failure <15 Note: (go live 2024) the eGFR calculation was updated to the 2020 CKD-EPI creatinine equation without a race factor to calculate the eGFR results. Performed By: #### A BSGEL, ABOGEL #### [address] [address] .NEUABSon 05-28-2024 Neutrophil, Absolute 3.9 10 3/mcL Normal 2.3-8.1 [facility] Comment on above: Performed By: #### A BSGEL, ABOGEL #### [address] [address] ABO/Rh (Gel)on 05-28-2024 ABO/Rh Interp Positive Invalid Interpretation Code [facility] Comment on above: Performed By: #### A BSGEL, ABOGEL #### [address] [address] ABS (Gel)on 05-28-2024 ABSC Interp (Gel) Negative Normal [facility] Comment on above: Performed By: #### A BSGEL, ABOGEL #### [address] [address] ALBon 05-28-2024 Albumin Level 4.3 G/dL Normal 3.4-4.8 [facility] Comment on above: Performed By: #### A BSGEL, ABOGEL #### [address] [address] BMPon 05-28-2024 BUN/Creatinine Ratio 28 ratio High 7-27 [facility] Comment on above: Performed By: #### A BSVERONIKA ABOGEL #### [address] [address] Calcium [Mass/Vol] 9.2 mg/dL Normal 8.4-10.2 [facility] Comment on above: Performed By: #### A BSVERONIKA ABOGEL #### [address] [address] Chloride [Moles/Vol] 103 mmol/L Normal 98-107 [facility] Comment on above: Performed By: #### A BSVERONIKA ABOGEL #### [address] [address] CO2 [Moles/Vol] 30 mmol/L Normal 23-31 [facility] Comment on above: Performed By: #### A BSVERONIKA ABOGEL #### [address] [address] Creatinine [Mass/Vol] 0.64 mg/dL Normal 0.55-1.02 [facility] Comment on above: Result Comment: Test ing performed on Siemens Dimension EXL analyzer using a modified kinetic Dieter technique. Performed By: #### A BSLUCRETIA BANDAGEL #### [address] [address] Electrolyte Balance 9.0 mEq/L Normal 4.0-15.0 [facility] Comment on above: Performed By: #### A BSVERONIKA ABOGEL #### [address] [address] Glucose [Mass/Vol] 120 mg/dL High 83-110 [facility] Comment on above: Performed By: #### A BSVERONIKA, ABOGEL #### [address] [address] Potassium [Moles/Vol] 3.7 mmol/L Normal 3.5-5.1 [facility] Comment on above: Performed By: #### A BSVERONIKA, ABOGEL #### [place] [address] Sodium [Moles/Vol] 142 mmol/L Normal 136-145 [facility] Comment on above: Performed By: #### A RUBEN FLORES #### [place] [address] Urea nitrogen [Mass/Vol] 18 mg/dL Normal 7-18 [facility] Comment on above: Performed By: #### A LUCRETIA FLORESGEL #### [place] [address] CBCon 05-28-2024 Erythrocyte distribution width (RBC) [Ratio] 13.1 % Normal 11.5-15.5 [facility] Comment on above: Order Comment: kelechi anthony, spoke with Kari. ja Performed By: #### A RUBEN FLORES #### [place] [address] Hematocrit (Bld) [Volume fraction] 43.5 % Normal 34.0-46.0 [facility] Comment on above: Order Comment: kelechi anthony, spoke with Kari. ja Performed By: #### A RUBEN FLORES #### [place] [address] Hgb 14.9 G/dL Normal 12.0-16.0 [facility] Comment on above: Order Comment: kelechi anthony, spoke with Kari. ja Performed By: #### A LUCRETIA FLORESGEL #### [place] [id number] MCH (RBC) [Entitic mass] 32.2 pg Normal 27.0-33.0 [facility] Comment on above: Order Comment: kelechi anthony, spoke with Kari. ja Performed By: #### A LUCRETIA FLORESGEL #### [place] [address] MCHC 34.3 G/dL Normal 32.0-36.0 [facility] Comment on above: Order Comment: kelechi anthony, spoke with Kari. ja Performed By: #### A LUCRETIA FLORESGEL #### [place] [id number] MCV (RBC) [Entitic vol] 93.8 fL Normal 80.0-99.0 [facility] Comment on above: Order Comment: kelechi anthony, spoke with Kari. ja Performed By: #### A RUBEN FLORES #### [address] [address] Platelet 352 10 3/mcL Normal 150-450 [facility] Comment on above: Order Comment: kelechi anthony, spoke with Kari. ja Performed By: #### A RUBEN FLORES #### [place] [address] Platelet mean volume (Bld) [Entitic vol] 7.9 fL Normal 6.6-10.5 [facility] Comment on above: Order Comment: kelechi anthony, spoke with Kari. ja Performed By: #### A RUBEN FLORES #### [place] [address] RBC 4.64 10 6/mcL Normal 4.10-5.30 [facility] Comment on above: Order Comment: kelechi anthony, spoke with Kari. ja Performed By: #### A RUBEN FLORES #### [place] [id number] WBC 6.6 10 3/mcL Normal 4.5-10.8 [facility] Comment on above: Order Comment: kelechi anthony spoke with Kari. ja Performed By: #### A RUBEN FLORES #### [address] [address] [address] KNEE W/O CONTRAST LEFTon 05-28-2024 CT KNEE W/O CONTRAST LEFT ORIGINAL EXAMINATION: CT OF THE LEFT KNEE WITHOUT CONTRAST 05/28/2024 1:02 pm TECHNIQUE: CT of the left knee was performed without the administration of intravenous contrast. Multiplanar reformatted images are provided for review. Automated exposure control, iterative reconstruction, and/or weight based adjustment of the mA/kV was utilized to reduce the radiation dose to as low as reasonably achievable. MA KO protocol was performed with axial images the left hip and left ankle. COMPARISON: None. HISTORY ORDERING SYSTEM PROVIDED HISTORY: Reason for Exam: Unilateral primary osteoarthritis FINDINGS: There is no acute fracture or dislocation. There is no suspicious lytic lesion. 3 mm sclerotic lesion in the left super acetabular iliac bone on series 3, image 77. There is no aggressive periosteal reaction. Left SI joint degenerative changes. Limited evaluation of the uterus and adnexa on CT. Pubic symphysis is aligned. Left femoroacetabular joint with mild joint space narrowing. Severe tricompartmental osteoarthritis of the left knee most pronounced in the medial compartment with vacuum phenomena, asymmetric joint space narrowing, subchondral sclerosis, marginal osteophyte formation. Spurring of the tibial spines and intercondylar notch. Small knee joint effusion with calcified intra-articular bodies.. Lateral patellar tilting. Large popliteal Todd's cyst. There is an area of fat necrosis in the anteromedial pretibial soft tissues. Vascular calcifications. Vascular phleboliths in the anterior pretibial soft tissues. Retrocalcaneal enthesopathy. Plantar calcaneal enthesopathy. There is no evidence of solid soft tissue mass. IMPRESSION: Severe tricompartmental osteoarthritis of the left knee most pronounced in medial compartment in patient presenting for preop planning. Small knee joint effusion with calcified intra-articular bodies. Large popliteal Todd's cyst. Indeterminate 3 mm sclerotic lesion left super acetabular iliac bone. Additional incidental findings as above. Interpreted by: Kymberly Willoughby Preliminary Report By: Kymberly Willoughby Electronically signed By Kymberly Willoughby Dictated Date: 05/28/2024 3:10:36 PM Prelim Date: 05/28/2024 3:15:36 PM Sign Date: 05/28/2024 3:15:36 PM Ordering Provider: CHRISTOPHER KRUGER Normal [facility] MRSAPCRon 05-28-2024 MRSA (PCR) Detected Abnormal Not Detected [facility] Comment on above: Result Comment: [place] [id number] Performed By: #### A RUBEN FLORES #### [address] [address] MRSA PCR Int Normal [facility] Comment on above: Result Comment: Stap h aureus DNA detected by Real-Time Polymerase Chain Reaction (PCR). Organism viability can not be determined since free bacterial DNA may persist in the absence of viable organisms. As with all PCR based in vitro diagnostic tests, extremely low levels of target below the limit of detection of the assay may be detected, but results may not be reproducible, and the clinical significance unknown. Infection control will be notified. See Below Performed By: #### A RUBEN FLORES #### Aly [address] [address] Orthopedic Visit Reporton Orthopedic Visit Report [facility] [address] [place] [address] OFFICE VISIT Date of Service: 05/27/24 MR#: [id number] Acct: [id number] Name: IRENE BERG Rep #: [id number] : 1950 Provider: Dr. Corona Batres MD Age/Sex: 74/F Location: [facility] [place] Status: Signed Intake Vital Signs 04/28/24 13:12 Height 5 ft 7 in Weight: 242 lb BMI 37.9 BP 124/78 H Blood Pressure Location Rt brachial Position Sitting Respiration 16 Pulse 86 Pulse Source Monitor Temp 96.1 F L Temp Source Temporal Pulse Oximetry (%) 98 Oxygen Delivery Method room air Intake Visit Reasons: LUMBAR SPINE Chief Complaint: MRI Review Accompanied by: Is patient in pain?: Yes Pain scale (1-10): 5 Allergies codeine Allergy (Mild, Verified 05/27/24 08:03) roaring sounds, hives, headache Penicillins Allergy (Mild, Verified 05/27/24 08:03) hives Medications ???Medication ???Instructions ???Recorded ???Confirmed ???Type potassium chloride 20 mEq 20 meq PO DAILY #90 tabs 11/08/22 05/27/24 Rx tablet,extended release hydrocortisone 2.5 % topical cream 1 applic topical BID PRN rash #3 0 05/03/23 05/27/24 Rx grams acetaminophen 650 mg 650 mg PO Q12H PRN 06/12/23 History tablet,extended release (Tylenol Arthritis Pain) amlodipine 5 mg tablet 5 mg PO DAILY #90 tabs 06/12/23 Rx aspirin 81 mg tablet,delayed 81 mg PO DAILY #90 tabs 06/12/23 0 05/27/24 Rx release ascorbate calcium (vitamin C) PO DAILY 10/02/24 03/25/25 History cholecalciferol (vitamin D3) [Baby PO DAILY 12/05/23 05/27/24 Histo ry Vitamin D3] pankaj wong PO DAILY 12/05/23 05/27/24 History red beet 250 mg-sour johnson tab PO 12/05/23 05/27/24 History extract 0.5 mg chewable tablet vitamin C 45 mg-zinc citrate 3.75 tab PO 12/05/23 05/27/24 History mg-elderberry 50 mg chewable tablet (Baoku) vitamin E (dl, acetate) PO DAILY 12/05/23 05/27/24 History furosemide 40 mg tablet 40 mg PO BID fluid #180 tabs 12/3005/27/24 Rx mecobalamin (vitamin B12) 500 mcg mcg PO 01/21/24 05/27/24 History chewable tablet prevagen .Route 01/21/24 05/27/24 History olmesartan 40 mg tablet 40 mg PO QHS #90 tabs 04/10/24 Rx naltrexone 8 mg-bupropion 90 mg 2 tab PO BID 3 months #360 tabs 05/27/24 Rx tablet,extended release (Contrave) venlafaxine 150 mg 150 mg PO DAILY #90 caps 04/28/24 05/27/24 Rx capsule,extended release 24 hr mirabegron 25 mg tablet,extended 25 mg PO QDAY #30 tabs 04/29/24 Rx release 24 hr (Myrbetriq) lorazepam 1 mg tablet (Ativan) 1 mg PO BID PRN claustrophobia #2 05/12/24 05/27/24 Rx tabs Have you fallen in the past year?: No PFSH Medical History Health care maintenance Trigger finger, right Memory changes Left shoulder pain Chronic constipation OAB (overactive bladder) Umbilical discharge Lumbar stenosis Wears dentures Depression Arthritis Bladder disease High cholesterol Back pain Injury of head and neck Difficulty swallowing History of ulceration Heartburn Shortness of breath on exertion Non-smoker On home oxygen therapy Leg cramps History of Holter monitoring History of echocardiogram History of edema Cardiology follow-up encounter History of irregular heartbeat Hx of fracture of ankle Flu vaccine need Preoperative evaluation to rule out surgical contraindication Anxiety and depression Spinal stenosis Urinary frequency Venous insufficiency of both lower extremities Chronic abdominal pain Left arm pain Edema of left upper arm Leg pain, left Palpitations Essential hypertension Edema of both lower legs MRSA (methicillin resistant Staphylococcus aureus) infection Ulcer of left lower extremity with fat layer exposed Other acute postprocedural pain Thyroid disease Lupus Hearing problem Headache History of blood clots Open wound of left lower leg due to animal bite Abscess of left lower leg Cellulitis of left anterior lower leg Bitten by pig, initial encounter Skin necrosis Post-menopausal CPAP (continuous positive airway pressure) dependence On home oxygen therapy History of stress test Scarlet fever Morbid obesity Avulsion injury Animal bite Laceration COVID-19 Suspected COVID-19 virus infection Acute respiratory failure with hypoxia Dislocation of right ankle joint Syndesmotic disruption of right ankle Bimalleolar fracture of right ankle History of left heart catheterization (LHC) ( 07/19/18) SOB (shortness of breath) HESHAM (obstructive sleep apnea) Pulmonary hypertension Essential hypertension Sebaceous cyst Osteoarthritis Urinary incontinence (more content not included)... Normal [facility] Magnetic resonance imaging r eportOrdered By: Rajiv Wheeler on 05-19-2024 Study report [facility] Imaging Services [address] [place], [place] [address] Spine Lumbar W/WO Contrast MR#: [id number] Acct: [id number] Name: IRENE BERG Rep #: [id number] : 1950 F 74 From: Jesus Wheeler MD PCP: Dr. Delta Sahu MD Status: R EG CLI Study:Spine Lumbar W/WO Contrast Date of Exa m: 05/13/24 Exam# [id number] Ordering Dr: Nohemi Batres MD PROCEDURE: MRI lumbar spine REASON FOR EXAM: PAIN TECHNIQUE: Multiplanar, multisequence MRI of the lumbar spine without and with intravenous gadolinium-based contrast. CONTRAST: 21 mL Clariscan intravenous. COMPARISON: Lumbar spine series of 04/11/2024. FINDINGS: Metallic artifact from a lower lumbar posterior fixation device is seen, including bilateral pedicle screws at L4 and L5. Prominent degenerative disc disease of the lumbar spine is similar to the prior study of 04/11/2024. Again seen is mild anterolisthesis of L4 upon L5 and mild retrolisthesis of L1 upon L2 and more so of L2 upon L3, similar to the prior study. Stable lumbar levoscoliosis. No acute osseous signal changes are seen. Conus Medullaris: Normally positioned. L1-2: Mild vertebral body osteophytosis is seen. A mild disc bulge is noted. Moderate right and mild left neural foraminal narrowing is noted. No significant spinal stenosis noted. L2-3: Inferior L2 vertebral body osteophytosis is seen, zzheb-xzslbot-lhvj- left. A slight disc bulge is seen, as well as a partially uncovered disc. Mild left and moderately severe right neural foraminal narrowing noted a mild degree of spinal canal narrowing is present. L3-4: Mild vertebral body osteophytosis and a mild disc bulge are seen. No significant degree of spinal canal stenosis is noted evaluation of the neural foramina is somewhat limited by metallic artifact, but at least moderate left neural foraminal narrowing is seen. L4-5: At this level of anterolisthesis, uncovered disc is noted. Evaluation is somewhat limited by metallic artifact, but at least mild right neural foraminal narrowing is noted. No significant spinal canal stenosis is seen at this level. L5-S1: A very mild disc bulge is noted. Evaluation of the neural foramina is limited by metallic artifact, but probably at least mild bilateral neural foraminal narrowing is seen. No significant degree of spinal canal stenosis is noted. Sacrum: Visualized upper sacrum and SI joints are unremarkable. Following intravenous contrast administration, no unexpected area of postcontrast enhancement is seen. MRI/Spine Lumbar W/WO Contrast IMPRESSION: Postsurgical changes and multilevel lumbar degenerative disc disease as described Reading Location: [address] CC: Dr. Corona Batres MD; Dr. 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 [facility] Spine Lumbar W/WO Contraston 05-13-2024 Spine Lumbar W/WO Contrast [facility] Imaging Services [facility] [place], [place] [address] Spine Lumbar W/WO Contrast MR#: [id number] Acct: [id number] Name: IRENE BERG Rep #: [id number] : 1950 F 74 From: Rajiv Harper PCP: Dr. Delta Sahu MD Status: REG CLI Study: Spine Lumbar W/WO Contrast Date of Exam: 05/03 03/29 Exam# [id number] Ordering Dr: Corona Batres MD PROCEDURE: MRI lumbar spine REASON FOR EXAM: PAIN TECHNIQUE: Multiplanar, multisequence MRI of the lumbar spine without and with intravenous gadolinium-based contrast. CONTRAST: 21 mL Clariscan intravenous. COMPARISON: Lumbar spine series of 04/11/2024. FINDINGS: Metallic artifact from a lower lumbar posterior fixation device is seen, including bilateral pedicle screws at L4 and L5. Prominent degenerative disc disease of the lumbar spine is similar to the prior study of 04/11/2024. Again seen is mild anterolisthesis of L4 upon L5 and mild retrolisthesis of L1 upon L2 and more so of L2 upon L3, similar to the prior study. Stable lumbar levoscoliosis. No acute osseous signal changes are seen. Conus Medullaris: Normally positioned. L1-2: Mild vertebral body osteophytosis is seen. A mild disc bulge is noted. Moderate right and mild left neural foraminal narrowing is noted. No significant spinal stenosis noted. L2-3: Inferior L2 vertebral body osteophytosis is seen, nnpsc-bafwuws-ujpm- left. A slight disc bulge is seen, as well as a partially uncovered disc. Mild left and moderately severe right neural foraminal narrowing noted a mild degree of spinal canal narrowing is present. L3-4: Mild vertebral body osteophytosis and a mild disc bulge are seen. No significant degree of spinal canal stenosis is noted evaluation of the neural foramina is somewhat limited by metallic artifact, but at least moderate left neural foraminal narrowing is seen. L4-5: At this level of anterolisthesis, uncovered disc is noted. Evaluation is somewhat limited by metallic artifact, but at least mild right neural foraminal narrowing is noted. No significant spinal canal stenosis is seen at this level. L5-S1: A very mild disc bulge is noted. Evaluation of the neural foramina is limited by metallic artifact, but probably at least mild bilateral neural foraminal narrowing is seen. No significant degree of spinal canal stenosis is noted. Sacrum: Visualized upper sacrum and SI joints are unremarkable. Following intravenous contrast administration, no unexpected area of postcontrast enhancement is seen. MRI/Spine Lumbar W/WO Contrast IMPRESSION: Postsurgical changes and multilevel lumbar degenerative disc disease as described Reading Location: [address] CC: Dr. Corona Batres MD; Dr. Delta Sahu MD Stone Setter Apprentice: Signed Normal [facility] Basic Metabolic Profile (BMP )on 04-28-2024 BUN/CRE 29.2 RATIO High 10-20 [facility] Comment on above: Performed By: #### L 500.2500, L400.0001 ####[facility] [address] [place], [address] CA,Total 9.8 mg/dL Normal 8.5-10.1 [facility] Comment on above: Performed By: #### L 500.2500, L400.0001 ####[facility] [address] [place], [address] Chloride [Moles/Vol] 106 mmol/L Normal 98-107 [facility] Comment on above: Performed By: #### L 500.2500, L400.0001 ####[facility] [address] [place], [address] CO2 [Moles/Vol] 25.0 mmol/L Normal 21.0-32.0 [facility] Comment on above: Performed By: #### L 500.2500, L400.0001 ####[facility] [address] [place], [address] Creatinine [Mass/Vol] 0.86 mg/dL Normal 0.55-1.02 [facility] Comment on above: Result Comment: The validity of the calculated GFR GFRAA in patients over 70 years has not been determined. Clinical correlation is essential. Performed By: #### L 500.2500, L400.0001 ####[facility] [address] [place], [address] EST GFR - AA 83 mL/min Normal >60 [facility] Comment on above: Result Comment: Afri can Nicaraguan GFR Calc Performed By: #### L 500.2500, L400.0001 ####[facility] [address] [place], [address] GAP 10 Normal 5-15 [facility] Comment on above: Performed By: #### L 500.2500, L400.0001 ####[facility] [address] [place], [address] GFR/1.73 sq M.predicted among non-blacks MDRD (S/P/Bld) [Vol rate/Area] 69 mL/min/{1.73_m2} Normal >60 [facility] Comment on above: Result Comment: Non- GFR Calc Performed By: #### L 500.2500, L400.0001 ####[facility] [address] [place], [address] Glucose [Mass/Vol] 123 mg/dL High 74-106 [facility] Comment on above: Result Comment: Fast ing Glucose result from 100 to 125 mg/dL suggests IMPAIRED HOMEOSTASIS per A.D.A. criteria. Performed By: #### L 500.2500, L400.0001 ####[facility] [address] [place], [address] Potassium [Moles/Vol] 4.2 mmol/L Normal 3.5-5.1 [facility] Comment on above: Performed By: #### L 500.2500, L400.0001 ####[facility] [address] [place], [address] Sodium [Moles/Vol] 140 mmol/L Normal 136-145 [facility] Comment on above: Performed By: #### L 500.2500, L400.0001 ####[facility] [address] [place], [address] Urea nitrogen [Mass/Vol] 25 mg/dL High 7-18 [facility] Comment on above: Performed By: #### L 500.2500, L400.0001 ####[facility] [address] [place], [address] Bilirubin Test strip Ql (U)O rdered By: Delta Sahu on 04-28-2024 Bilirubin Ql (U) Negative Negative [facility] Blood urea nitrogen (BUN)/cr eatinine ratioOrdered By: Delta Sahu on 04-28-2024 Urea nitrogen/Creatinine [Mass ratio] 29.2 mg/mg High 10-20 [facility] Carbon dioxide measurementOr dered By: Delta Sahu on 04-28-2024 CO2 [Moles/Vol] 25.0 mmol/L 21.0-32.0 [facility] Chloride measurementOrdered By: Delta Sahu on 04-28-2024 Chloride [Moles/Vol] 106 mmol/L 98-107 [facility] Epithelial cells.squamous LM Ql (Urine sed)Ordered By: Delta Sahu on 04-28-2024 Epithelial cells.squamous LM.HPF (Urine sed) [#/Area] 0 /[HPF] 5-10 [facility] Estimated glomerular filtrat ion rate (GFR) AmericanOrdered By: Delta Sahu on 04-28-2024 Estimated GFR (MDRD) Amer 83 mL/min >60 [facility] Comment on above: GFR Calc Glomerular filtration rate ( GFR) estimationOrdered By: Delta Sahu on 04-28-2024 Estimated GFR (MDRD) Non-Af Amer 69 mL/min >60 [facility] Comment on above: Non- GFR Calc GFR/1.73 sq M.predicted among non-blacks MDRD (S/P/Bld) [Vol rate/Area] 69 mL/min/{1.73_m2} >60 [facility] Comment on above: Non- GFR Calc Glucose Ql (U)Ordered By: Cathi Sahu on 04-28-2024 Urine Glucose (UA) Normal mg/dl Normal [facility] Glucose measurementOrdered B y: Delta Sahu on 04-28-2024 Glucose [Mass/Vol] 123 mg/dL High 74-106 [facility] Comment on above: Fasting Glucose resu lt from 100 to 125 mg/dL suggests IMPAIRED HOMEOSTASIS per A.D.A. criteria. Internal Medicine Office Vis itoedouard 04-28-2024 Internal Medicine Office Visit [facility] [address] [place] [address] [place] [address] OFFICE VISIT Date of Service: 04/28/24 MR#: [id number] Acct: [id number] Name: IRENE BERG Rep #: [id number] : 1950 Provider: Dr. Delta wright MD Age/Sex: 74/F Location[place] [facility] [place] Status: Signed Intake Vital Signs 01/21/24 10:12 02/21/24 13:47 04/11/24 13:06 04/28/24 13:12 Height 5 ft 7 in 5 ft 7 in 5 ft 7 in 5 ft 7 in Weight: 242 lb BMI 37.9 BP 124/78 H Blood Pressure Location Rt brachial Position Sitting Respiration 16 Pulse 86 Pulse Source Monitor Temp 96.1 F L Temp Source Temporal Pulse Oximetry (%) 98 Oxygen Delivery Method room air Intake Visit Reasons: FOLLOW UP Chief Complaint: Follow-up chronic conditions Security Guard Required: No Accompanied by: Self Is patient in pain?: No Allergies codeine Allergy (Mild, Verified 04/28/24 13:07) roaring sounds, hives, headache Penicillins Allergy (Mild, Verified 04/28/24 13:07) hives Have you fallen in the past year?: No Nurse's Note: needs refill on effexor 150mg tab PFSH Medical History (Updated 04/28/24 @ 17:[address] Delta Sahu MD) Health care maintenance Trigger finger, right Memory changes Left shoulder pain Chronic constipation OAB (overactive bladder) Umbilical discharge Lumbar stenosis Wears dentures Depression Arthritis Bladder disease High cholesterol Back pain Injury of head and neck Difficulty swallowing History of ulceration Heartburn Shortness of breath on exertion Non-smoker On home oxygen therapy Leg cramps History of Holter monitoring History of echocardiogram History of edema Cardiology follow-up encounter History of irregular heartbeat Hx of fracture of ankle Flu vaccine need Preoperative evaluation to rule out surgical contraindication Anxiety and depression Spinal stenosis Urinary frequency Venous insufficiency of both lower extremities Chronic abdominal pain Left arm pain Edema of left upper arm Leg pain, left Palpitations Essential hypertension Edema of both lower legs MRSA (methicillin resistant Staphylococcus aureus) infection Ulcer of left lower extremity with fat layer exposed Other acute postprocedural pain Thyroid disease Lupus Hearing problem Headache History of blood clots Open wound of left lower leg due to animal bite Abscess of left lower leg Cellulitis of left anterior lower leg Bitten by pig, initial encounter Skin necrosis Post-menopausal CPAP (continuous positive airway pressure) dependence On home oxygen therapy History of stress test Scarlet fever Morbid obesity Avulsion injury Animal bite Laceration COVID-19 Suspected COVID-19 virus infection Acute respiratory failure with hypoxia Dislocation of right ankle joint Syndesmotic disruption of right ankle Bimalleolar fracture of right ankle History of left heart catheterization (LHC) ( 07/19/18) SOB (shortness of breath) HESHAM (obstructive sleep apnea) Pulmonary hypertension Essential hypertension Sebaceous cyst Osteoarthritis Urinary incontinence Mood disorder Edema Hyperlipidemia Surgical History History of lumbar surgery Hx of colonoscopy History of surgery on lower extremity Hx of fusion of cervical spine History of excision of lesion H/O cardiac catheterization S/P tubal ligation History of tonsillectomy exploratory surgery S/P right knee arthroscopy S/P dilation and curettage History of S/P partial thyroidectomy Family History Father Heart disease Hypertension Hyperlipidemia Melanoma Myocardial infarction Mother Diabetes Breast cancer Heart disease Hypertension Hyperlipidemia Hx of blood clots Sister CVA (cerebral vascular accident) Diabetes Other Arthritis High cholesterol Osteoporosis Parkinsons disease Skin cancer Social History Smoking Status: Never smoker alcohol intake: never substance use type: does not use caffeine: No eating out: rarely or never what type of physical activity do you participate in: none seatbelt use: always do you feel safe at home: Yes additional social history: [employer] at [employer] Patient is retired Does Not Take Aspirin Does Take Ibuprofen as needed HPI HPI Chief Complaint: Follow-up chronic conditions Details: IRENE BEGR, is a 74 F who presents to the office today for follow-up of her chronic conditions. Also has some concerns. History of urinary frequency/overactiv e bladder. Has been taking oxybutynin which for the most part is helpful but has some occasions where she does not think it is as helpful. Typically symptoms (more content not included)... Normal [facility] Ketones Test strip Ql (U)Ord ered By: Delta Sahu on 04-28-2024 Ketones Ql (U) Negative Negative [facility] Microscopic analysis of urin e for red blood cells (RBC)Ordered By: Delta Sahu on 04-28-2024 Microscopic analysis of urine for red blood cells (RBC) 0-5 SEEN /hpf 0-5 [facility] Urine RBC 0-5 SEEN /hpf 0-5 [facility] Mucus LM Ql (Urine sed)Order ed By: Delta Sahu on 04-28-2024 Mucus Ql (Urine sed) 0 SEEN /hpf [facility] Nitrite Test strip Ql (U)Ord ered By: Delta Sahu on 04-28-2024 Nitrite Ql (U) Negative Negative [facility] Potassium measurementOrdered By: Delta Sahu on 04-28-2024 Potassium [Moles/Vol] 4.2 mmol/L 3.5-5.1 [facility] Protein Test strip Ql (U)Ord ered By: Delta Sahu on 04-28-2024 Protein Ql (U) Negative Negative [facility] Serum anion gap measurementO rdered By: Delta Sahu on 04-28-2024 Anion gap [Moles/Vol] 10 mmol/L 5-15 [facility] Serum or plasma calcium nguyen urement (mass/volume)Ordered By: Delta Sahu on 04-28-2024 Calcium [Mass/Vol] 9.8 mg/dL 8.5-10.1 [facility] Serum or plasma creatinine m easurement (mass/volume)Ordered By: Delta Sahu on 04-28-2024 Creatinine [Mass/Vol] 0.86 mg/dL 0.55-1.02 [facility] Comment on above: The validity of the calculated GFR & GFRAA in patients over 70 years has not been determined. Clinical correlation is essential. Serum or plasma urea nitroge n measurement (mass/volume)Ordered By: Delta Sahu on 04-28-2024 Urea nitrogen [Mass/Vol] 25 mg/dL High 7-18 [facility] Sodium levelOrdered By: Susan murraysophiaalonso Sahu on 04-28-2024 Sodium [Moles/Vol] 140 mmol/L 136-145 [facility] Squamous epithelial cells de tection in urine sediment by light microscopyOrdered By: Delta Sahu on 04-28-2024 Epithelial cells.squamous LM Ql (Urine sed) 0-5 SEEN /hpf 5-10 [facility] Urinalysis, Completeon 04-28 EPI,SQUAMOUS 0-5 SEEN Normal 5-10 [facility] Comment on above: Order Comment: MAGGIE CTOR TO SPECIFY Performed By: #### L 500.2500, L400.0001 ####[facility] [address] [facility] [address] RBC 0-5 SEEN Normal 0-5 [facility] Comment on above: Order Comment: MAGGIE CTOR TO SPECIFY Performed By: #### L 500.2500, L400.0001 ####[facility] [address] [facility] [address] WBC 0-5 SEEN Normal 0-5 [facility] Comment on above: Order Comment: MAGGIE CTOR TO SPECIFY Performed By: #### L 500.2500, L400.0001 ####[facility] [address] [facility] [address] BACTERIA 0 SEEN Normal None Seen [facility] Comment on above: Order Comment: MAGGIE CTOR TO SPECIFY Performed By: #### L 500.2500, L400.0001 ####[facility] [address] [place], [address] Mucus Ql (Urine sed) 0 SEEN Normal [facility] Comment on above: Order Comment: MAGGIE CTOR TO SPECIFY Performed By: #### L 500.2500, L400.0001 ####[facility] [address] [place], [address] Urine blood detectionOrdered By: Delta Sahu on 04-28-2024 Urine Occult Blood Negative Negative [facility] Urine clarityOrdered By: Tab Sahu on 04-28-2024 Clarity (U) Clear Clear [facility] Urine color determinationOrd ered By: Delta Sahu on 04-28-2024 Color (U) Yellow Yellow [facility] Urine glucose detectionOrder ed By: Delta Sahu on 04-28-2024 Glucose Ql (U) Normal mg/dl Normal [facility] Urine leukocyte esterase det ection by dipstickOrdered By: Delta Sahu on 04-28-2024 Leukocyte esterase Test strip Ql (U) Negative Negative [facility] Urine pHOrdered By: Wolf Sahu on 04-28-2024 pH (U) 6.0 [pH] 5.0 - 8.0 [facility] Urine sediment bacteria coun t by microscopy (number/high power field)Ordered By: Delta Sahu on 04-28-2024 Bacteria LM.HPF (Urine sed) [#/Area] 0 /[HPF] None Seen [facility] Urine specific gravity measu rementOrdered By: Delta Sahu on 04-28-2024 Specific gravity (U) [Rel density] 1.010 1.002-1.030 [facility] Urine urobilinogen measureme ntOrdered By: Delta Sahu on 04-28-2024 Urobilinogen Ql (U) Normal mg/dl Normal [facility] Urobilinogen Ql (U)Ordered B y: Delta Sahu on 04-28-2024 Urine Urobilinogen Normal mg/dl Normal [facility] White blood cell countOrdere d By: Delta Sahu on 04-28-2024 Urine WBC 0-5 SEEN /hpf 0-5 [facility] White blood cell count 0-5 SEEN /hpf 0-5 [facility] Dexa Bone Density Studyon Dexa Bone Density Study [facility] Imaging Services [address] [place], [place] [address] Dexa Bone Density Study MR#: [id number] Acct: [id number] Name: IRENE BERG Rep #: [id number] : 1950 F 74 From: Billy perry MD PCP: Dr. Delta Sahu MD Status: REG CLI Study: Dexa Bone Density Study Date of Exam: 04/17/24 Exam# [id number] Ordering Dr: Delta Sahu MD PROCEDURE: DEXA BONE DENSITY STUDY REASON FOR EXAM: F, age 74 y/o . Postmenopausal. TECHNIQUE: DEXA scan of the lumbar spine and both hips. COMPARISON: Comparison is made with prior study dated August 26, 2017. FINDINGS: Lumbar Spine (L1-L4): g/cm2 (1.417)/T-score (4.0)/Z-score (6.2) findings are suggestive of normal with a low fracture risk. Left Femur Total: g/cm2 (1.136)/T-score (1.6)/Z-score (3.3) Left Femoral Neck: g/cm2 (0.762)/T-score (-0.8)/Z-score (1.3) Right Femur Total: g/cm2 (1.012)/T-score (0.6)/Z-score (2.3) Right Femoral Neck: g/cm2 (0.750)/T-score (-0.9)/Z-score (1.1) The T-Scores on the most recent prior examination were: Lumbar Spine (L1-L4): There has been decrease of bone density since the previous examination. Left Femur Total: Improvement of 6.4%. Right Femur Total: Improvement of 4.9%. BD/Dexa Bone Density Study IMPRESSION: The patient is considered normal as outlined below according to World Dion Organization (WHO) criteria with a low fracture risk. There has been improvement of bone density since the previous examination. Reading Location: [facility] CC: Dr. Delta Sahu MD Stone Setter Apprentice: Signed Normal [facility] SCRN MAMM (CAD)W/IESHA BILATo n 04-17-2024 SCRN MAMM (CAD)W/IESHA BILAT [facility] Imaging Services [address] [place] [address] SCRN MAMM (CAD)W/IESHA BILAT MR#: [id number] Acct: [id number] Name: IRENE BERG Rep #: [id number] : 1950 F 74 From: Billy perry MD PCP: Dr. Delta Sahu MD Status: REG CLI Study: SCRN MAMM (CAD)W/IESHA BILAT Date of Exam: 04/05 05/27 Exam# [id number] Ordering Dr: Delta Sahu MD PROCEDURE: SCRN MAMM (CAD)W/IESHA BILAT REASON FOR EXAM: F, Age 74 y/o, mother with breast cancer. TECHNIQUE: Bilateral screening digital breast tomosynthesis with 2D and 3D images. Computer aided detection. COMPARISON: Prior exam(s) dating back to August 10, 2021.. FINDINGS: The breasts are almost entirely fatty. Stable 7 mm well-defined nodule in the central lateral aspect of the right breast suggestive of a small lymph. Stable examination. Stable small bilateral axillary lymph nodes. No suspicious masses, areas of developing architectural distortion, or suspicious calcifications. BI/SCRN MAMM (CAD)W/IESHA BILAT IMPRESSION: BI-RADS 2: BENIGN. RECOMMEND ANNUAL MAMMOGRAPHIC SCREENING. Follow-up code: Routine Follow-up The patient will be notified of the results by letter. Reading Location: [facility] CC: Dr. Delta Sahu MD Stone Setter Apprentice: Signed Normal [facility] L/S Spine Min 4 Viewson L/S Spine Min 4 Views [facility] Imaging Services [address] [place] [address] L/S Spine Min 4 Views MR#: [id number] Acct: [id number] Name: IRENE BERG Rep #: [id number] : 1950 F 74 From: Gavin Rock MD PCP: Dr. Delta Sahu MD Status: DEP AMB Study: L/S Spine Min 4 Views Date of Exam: 04/11/24 Exam# [id number] Ordering Dr: Yue Thibodeaux PROCEDURE: L/S SPINE MIN 4 VIEWS REASON FOR EXAM: Pain. TECHNIQUE: Four views. COMPARISON: None. FINDINGS: L4-5 posterior fusion. Up to moderate discogenic degenerative changes of the non fused levels. Grade 1 retrolisthesis of L1 on L2 and L2 on L3 which is stable on flexion and extension views. Scoliotic curvature. RAD/L/S Spine Min 4 Views IMPRESSION: Postsurgical and degenerative changes as above. Scoliotic curvature. Reading Location: [facility] CC: ISABEL Ruiz; Dr. Delta Sahu MD Stone Setter Apprentice: Signed Normal [facility] Orthopedic Visit Reporton Orthopedic Visit Report [facility] [address] [place] [address] OFFICE VISIT Date of Service: 04/11/24 MR#: [id number] Acct: [id number] Name: IRENE BERG Rep #: [id number] : 1950 Provider: Dr. Corona Batres MD Age/Sex: 74/F Location: [facility] Status: Signed Intake Vital Signs 02/21/24 13:47 04/11/24 13:06 Height 5 ft 7 in 5 ft 7 in Weight: 246 lb 247 lb BMI 38.5 38.7 BP 148/84 H Blood Pressure Location Rt brachial Position Sitting Respiration 18 Pulse 84 Temp 98.1 F Temp Source Oral Intake Visit Reasons: LUMBAR SPINE Chief Complaint: Lumbar spine - Dr. Benjamin patient Accompanied by: Self Allergies codeine Allergy (Mild, Verified 04/11/24 13:13) roaring sounds, hives, headache Penicillins Allergy (Mild, Verified 04/11/24 13:13) hives Medications ???Medication ???Instructions ???Recorded ???Confirmed ???Type potassium chloride 20 mEq 20 meq PO DAILY #90 tabs 11/08/22 04/11/24 Rx tablet,extended release hydrocodone-acetami nophen 5-325mg 1 tab PO Q6H 7 days #28 tabs 12/2 10/2504/11/24 Rx 5mg-325mg hydrocortisone 2.5 % topical cream 1 applic topical BID PRN rash #3 0 05/03/23 04/11/24 Rx grams acetaminophen 650 mg 650 mg PO Q12H PRN 06/12/23 History tablet,extended release (Tylenol Arthritis Pain) amlodipine 5 mg tablet 5 mg PO DAILY #90 tabs 06/12/23 Rx aspirin 81 mg tablet,delayed 81 mg PO DAILY #90 tabs 06/12/23 0 04/11/24 Rx release ascorbate calcium (vitamin C) PO DAILY 12/05/23 04/11/24 History cholecalciferol (vitamin D3) [Baby PO DAILY 12/05/23 04/11/24 Histo ry Vitamin D3] lilorenzo marvin PO DAILY 12/05/23 04/11/24 History red beet 250 mg-sour johnson tab PO 12/05/23 04/11/24 History extract 0.5 mg chewable tablet vitamin C 45 mg-zinc citrate 3.75 tab PO 12/05/23 04/11/24 History mg-elderberry 50 mg chewable tablet (Baoku) vitamin E (dl, acetate) PO DAILY 12/05/23 04/11/24 History furosemide 40 mg tablet 40 mg PO BID fluid #180 tabs 12/3004/11/24 Rx venlafaxine 150 mg 150 mg PO DAILY #90 caps 12/31/23 04/11/24 Rx capsule,extended release 24 hr mecobalamin (vitamin B12) 500 mcg mcg PO 01/21/24 04/11/24 History chewable tablet naltrexone 8 mg-bupropion 90 mg 2 tab PO BID 3 months #360 tabs 04/11/24 Rx tablet,extended release (Contrave) prevagen .Route 01/21/24 04/11/24 History olmesartan 40 mg tablet 40 mg PO QHS #90 tabs 04/10/2409/26 Rx oxybutynin chloride 10 mg 10 mg PO DAILY #90 tabs 04/10/24 0 04/11/24 Rx tablet,extended release 24 hr Have you fallen in the past year?: No PFSH Medical History Health care maintenance Trigger finger, right Memory changes Left shoulder pain Chronic constipation OAB (overactive bladder) Umbilical discharge Lumbar stenosis Wears dentures Depression Arthritis Bladder disease High cholesterol Back pain Injury of head and neck Difficulty swallowing History of ulceration Heartburn Shortness of breath on exertion Non-smoker On home oxygen therapy Leg cramps History of Holter monitoring History of echocardiogram History of edema Cardiology follow-up encounter History of irregular heartbeat Hx of fracture of ankle Flu vaccine need Preoperative evaluation to rule out surgical contraindication Anxiety and depression Spinal stenosis Urinary frequency Venous insufficiency of both lower extremities Chronic abdominal pain Left arm pain Edema of left upper arm Leg pain, left Palpitations Essential hypertension Edema of both lower legs MRSA (methicillin resistant Staphylococcus aureus) infection Ulcer of left lower extremity with fat layer exposed Other acute postprocedural pain Thyroid disease Lupus Hearing problem Headache History of blood clots Open wound of left lower leg due to animal bite Abscess of left lower leg Cellulitis of left anterior lower leg Bitten by pig, initial encounter Skin necrosis Post-menopausal CPAP (continuous positive airway pressure) dependence On home oxygen therapy History of stress test Scarlet fever Morbid obesity Avulsion injury Animal bite Laceration COVID-19 Suspected COVID-19 virus infection Acute respiratory failure with hypoxia Dislocation of right ankle joint Syndesmotic disruption of right ankle Bimalleolar fracture of right ankle History of left heart catheterization (LHC) ( 07/19/18) SOB (shortness of breath) HESHAM (obstructive sleep apnea) Pulmonary hypertension Essential hypertension Sebaceous cyst Osteoarthritis Urinary incontinence Mood disorder Edema Hyperlipidemia Surgical History (Reviewed (more content not included)... Normal [facility] Plastic Surgery Visit Report on 02-21-2024 Plastic Surgery Visit Report [facility] Plastic Reconstructive Surgery [address], [address] [place], [place] [address] OFFICE VISIT Date of Service: 02/21/24 MR#: [id number] Acct: [id number] Name: IRENE BERG Rep #: [id number] : 1950 Provider: Dr. Dragan Sheets MD Age/Sex: 74/F Location: [facility] [place] Status: Signed Intake Vital Signs 01/21/24 10:12 02/21/24 13:47 Height 5 ft 7 in 5 ft 7 in Weight: 246 lb 4 oz 246 lb BMI 38.5 38.5 BP 136/76 H 148/84 H Blood Pressure Location Lt brachial Rt brachial Position Sitting Sitting Respiration 16 18 Pulse 84 84 Pulse Source Monitor Temp 97.3 F L 98.1 F Temp Source Temporal Oral Pulse Oximetry (%) 98 Oxygen Delivery Method room air Intake Visit Reasons: TRIGGER FINGER Chief Complaint: pt here for right trigger finger pain Allergies codeine Allergy (Mild, Verified 02/21/24 13:30) roaring sounds, hives, headache Penicillins Allergy (Mild, Verified 02/21/24 13:30) hives Medications ???Medication ???Instructions ???Recorded ???Confirmed ???Type potassium chloride 20 mEq 20 meq PO DAILY #90 tabs 11/08/22 02/21/24 Rx tablet,extended release hydrocodone-acetami nophen 5-325mg 1 tab PO Q6H 7 days #28 tabs 03/01/23 02/21/24 Rx 5mg-325mg hydrocortisone 2.5 % topical cream 1 applic topical BID PRN rash #30 05/03/23 02/21/24 Rx grams oxybutynin chloride 10 mg 10 mg PO DAILY #90 tabs 05/07/23 02/21/24 Rx tablet,extended release 24 hr acetaminophen 650 mg 650 mg PO Q12H PRN 06/12/23 02/21/24 History tablet,extended release (Tylenol Arthritis Pain) amlodipine 5 mg tablet 5 mg PO DAILY #90 tabs 06/12/23 02/21/24 Rx aspirin 81 mg tablet,delayed 81 mg PO DAILY #90 tabs 06/12/23 02/21/24 Rx release olmesartan 40 mg tablet 40 mg PO QHS #90 tabs 10/09/23 02/21/24 Rx ascorbate calcium (vitamin C) PO DAILY 12/05/23 02/21/24 History cholecalciferol (vitamin D3) [Baby PO DAILY 12/05/23 02/21/24 History Vitamin D3] lilorenzo marvin PO DAILY 12/05/23 02/21/24 History red beet 250 mg-sour johnson tab PO 12/05/23 02/21/24 History extract 0.5 mg chewable tablet vitamin C 45 mg-zinc citrate 3.75 tab PO 12/05/23 02/21/24 History mg-elderberry 50 mg chewable tablet (Baoku) vitamin E (dl, acetate) PO DAILY 12/05/23 02/21/24 History furosemide 40 mg tablet 40 mg PO BID fluid #180 tabs 12/31/23 02/21/24 Rx venlafaxine 150 mg 150 mg PO DAILY #90 caps 12/31/23 02/21/24 Rx capsule,extended release 24 hr mecobalamin (vitamin B12) 500 mcg mcg PO 01/21/24 02/21/24 History chewable tablet naltrexone 8 mg-bupropion 90 mg 2 tab PO BID 3 months #360 tabs 01/21/24 02/21/24 Rx tablet,extended release (Contrave) prevagen .Route 01/21/24 02/21/24 History Have you fallen in the past year?: No PFSH Medical History (Updated 02/21/24 @ 17:[address] Dragan Sheets MD) Health care maintenance Trigger finger, right Memory changes Left shoulder pain Chronic constipation OAB (overactive bladder) Umbilical discharge Lumbar stenosis Wears dentures Depression Arthritis Bladder disease High cholesterol Back pain Injury of head and neck Difficulty swallowing History of ulceration Heartburn Shortness of breath on exertion Non-smoker On home oxygen therapy Leg cramps History of Holter monitoring History of echocardiogram History of edema Cardiology follow-up encounter History of irregular heartbeat Hx of fracture of ankle Flu vaccine need Preoperative evaluation to rule out surgical contraindication Anxiety and depression Spinal stenosis Urinary frequency Venous insufficiency of both lower extremities Chronic abdominal pain Left arm pain Edema of left upper arm Leg pain, left Palpitations Essential hypertension Edema of both lower legs MRSA (methicillin resistant Staphylococcus aureus) infection Ulcer of left lower extremity with fat layer exposed Other acute postprocedural pain Thyroid disease Lupus Hearing problem Headache History of blood clots Open wound of left lower leg due to animal bite Abscess of left lower leg Cellulitis of left anterior lower leg Bitten by pig, initial encounter Skin necrosis Post-menopausal CPAP (continuous positive airway pressure) dependence On home oxygen therapy History of stress test Scarlet fever Morbid obesity Avulsion injury Animal bite Laceration COVID-19 Suspected COVID-19 virus infection Acute respiratory failure with hypoxia Dislocation of right ankle joint Syndesmotic disruption of right ankle Bimalleolar fracture of right ankle History of left heart catheterization (LHC) ( 07/19/18) SOB (shortness of breath) HESHAM (obstructive sleep apnea) Pulmonary hypertension Essential hypertension Sebaceous cyst Osteoarthritis (more content not included)... Normal [facility] Hemoglobin A1con 01-22-2024 HbA1c (Bld) [Mass fraction] 6.8 % High 3.8-5.6 [facility] Comment on above: Result Comment: Norm al < 5.7 % Prediabetic 5.7 - 6.4 % Diabetic >or= 6.5 % Please note range changes. Performed By: #### L 501.9985 ####[facility] [address] [place], [address] CBC W/Diff, Automatedon 01-03 Absolute Lymph 2.13 X10 3/uL Normal 0.83-4.51 [facility] Comment on above: Performed By: #### L 500.4100, L501.9520, L100.0100, L500.4050 #### [facility] [address] [place], [address] Absolute Neut 5.0 X10 3/uL Normal 2.0-7.7 [facility] Comment on above: Performed By: #### L 500.4100, L501.9520, L100.0100, L500.4050 #### [facility] [address] [place], [address] Basophils/100 WBC (Bld) 0.3 % Normal 0-1 [facility] Comment on above: Performed By: #### L 500.4100, L501.9520, L100.0100, L500.4050 #### [facility] [address] [place], [address] Eosinophils/100 WBC (Bld) 1.3 % Normal 0-5 [facility] Comment on above: Performed By: #### L 500.4100, L501.9520, L100.0100, L500.4050 #### [facility] [address] [place], [address] Erythrocyte distribution width (RBC) [Ratio] 12.3 % Normal 11.6-14.6 [facility] Comment on above: Performed By: #### L 500.4100, L501.9520, L100.0100, L500.4050 #### [facility] [address] [place], [address] Hematocrit (Bld) [Volume fraction] 42.5 % Normal 37-47 [facility] Comment on above: Performed By: #### L 500.4100, L501.9520, L100.0100, L500.4050 #### [facility] [address] [place], [address] Hemoglobin (Bld) [Mass/Vol] 14.3 g/dL Normal 12.0-15.0 [facility] Comment on above: Performed By: #### L 500.4100, L501.9520, L100.0100, L500.4050 #### [facility] [address] [place], [address] IG% 0.300 Normal 0.0-0.9 [facility] Comment on above: Result Comment: IG% - Immature Granulocytes (promyelocytes, myelocytes and metamyelocytes) > 1% indicates that a LEFT SHIFT is Present. Performed By: #### L 500.4100, L501.9520, L100.0100, L500.4050 #### [facility] [address] [place], [address] Lymphocytes/100 WBC (Bld) 26.9 % Normal 19-41 [facility] Comment on above: Performed By: #### L 500.4100, L501.9520, L100.0100, L500.4050 #### [facility] [address] [place], [address] MCH (RBC) [Entitic mass] 32.0 pg Normal 27.0-32.0 [facility] Comment on above: Performed By: #### L 500.4100, L501.9520, L100.0100, L500.4050 #### [facility] [address] [place], [address] MCHC (RBC) [Mass/Vol] 33.6 g/dL Normal 32-36 [facility] Comment on above: Performed By: #### L 500.4100, L501.9520, L100.0100, L500.4050 #### [facility] [address] [place], [address] MCV (RBC) [Entitic vol] 95.1 fL Normal 81-99 [facility] Comment on above: Performed By: #### L 500.4100, L501.9520, L100.0100, L500.4050 #### [facility] [address] [place], [address] Monocytes/100 WBC (Bld) 8.6 % Normal 0-10 [facility] Comment on above: Performed By: #### L 500.4100, L501.9520, L100.0100, L500.4050 #### [facility] [address] [place], [address] Neutrophils/100 WBC (Bld) 62.6 % Normal 47-70 [facility] Comment on above: Performed By: #### L 500.4100, L501.9520, L100.0100, L500.4050 #### [facility] [address] [place], [address] Nucleated RBC (Bld) [#/Vol] 0 10*3/uL Normal 0-5 [facility] Comment on above: Performed By: #### L 500.4100, L501.9520, L100.0100, L500.4050 #### [facility] [address] [place], [address] Platelet mean volume (Bld) [Entitic vol] 10.2 fL Normal 6.2-12.0 [facility] Comment on above: Performed By: #### L 500.4100, L501.9520, L100.0100, L500.4050 #### [facility] [address] [place], [address] Platelets (Bld) [#/Vol] 358 10*3/uL Normal 150-450 [facility] Comment on above: Performed By: #### L 500.4100, L501.9520, L100.0100, L500.4050 #### [facility] [address] [place], [address] RBC (Bld) [#/Vol] 4.47 10*6/uL Normal 4.2-5.4 [facility] Comment on above: Performed By: #### L 500.4100, L501.9520, L100.0100, L500.4050 #### [facility] [address] [place], [address] RDW SD 43.1 fl Normal 35.1-43.9 [facility] Comment on above: Performed By: #### L 500.4100, L501.9520, L100.0100, L500.4050 #### [facility] [address] [place], [address] WBC (Bld) [#/Vol] 7.9 10*3/uL Normal 4.4-11.0 [facility] Comment on above: Performed By: #### L 500.4100, L501.9520, L100.0100, L500.4050 #### [facility] [address] [place], [address] Comprehensive Metabolic Prof ilon 01-21-2024 Albumin [Mass/Vol] 3.7 g/dL Normal 3.2-5.0 [facility] Comment on above: Performed By: #### L 500.4100, L501.9520, L100.0100, L500.4050 #### [facility] [address] [place], [address] Albumin/Globulin [Mass ratio] 1.1 {ratio} Normal 0.9-2.4 [facility] Comment on above: Performed By: #### L 500.4100, L501.9520, L100.0100, L500.4050 #### [facility] [address] [place], [address] ALK P 73 U/L Normal 45-117 [facility] Comment on above: Performed By: #### L 500.4100, L501.9520, L100.0100, L500.4050 #### [facility] [address] [place], [address] ALT [Catalytic activity/Vol] 31 U/L Normal 13-56 [facility] Comment on above: Performed By: #### L 500.4100, L501.9520, L100.0100, L500.4050 #### [facility] [address] [place], [address] AST [Catalytic activity/Vol] 20 U/L Normal 15-37 [facility] Comment on above: Performed By: #### L 500.4100, L501.9520, L100.0100, L500.4050 #### [facility] [address] [place], [address] Bilirubin [Mass/Vol] 0.40 mg/dL Normal 0.20-1.00 [facility] Comment on above: Result Comment: For patients on eltrombopag therapy, use of Dimension [place] TBIL is not recommended. Performed By: #### L 500.4100, L501.9520, L100.0100, L500.4050 #### [facility] [address] [place], [address] BUN/CRE 16.5 RATIO Normal 10-20 [facility] Comment on above: Performed By: #### L 500.4100, L501.9520, L100.0100, L500.4050 #### [facility] [address] [place], [address] CA,Total 8.6 mg/dL Normal 8.5-10.1 [facility] Comment on above: Performed By: #### L 500.4100, L501.9520, L100.0100, L500.4050 #### [facility] [address] [place], [address] Chloride [Moles/Vol] 109 mmol/L High 98-107 [facility] Comment on above: Performed By: #### L 500.4100, L501.9520, L100.0100, L500.4050 #### [facility] [address] [place], [address] CO2 [Moles/Vol] 25.0 mmol/L Normal 21.0-32.0 [facility] Comment on above: Performed By: #### L 500.4100, L501.9520, L100.0100, L500.4050 #### [facility] [address] [place], [address] Creatinine [Mass/Vol] 0.67 mg/dL Normal 0.55-1.02 [facility] Comment on above: Result Comment: The validity of the calculated GFR GFRAA in patients over 70 years has not been determined. Clinical correlation is essential. Performed By: #### L 500.4100, L501.9520, L100.0100, L500.4050 #### [facility] [address] [place], [address] EST GFR - AA 111 mL/min Normal >60 [facility] Comment on above: Result Comment: Afri can [place] GFR Calc Performed By: #### L 500.4100, L501.9520, L100.0100, L500.4050 #### [facility] [address] [place], [address] GAP 7 Normal 5-15 [facility] Comment on above: Performed By: #### L 500.4100, L501.9520, L100.0100, L500.4050 #### [facility] [address] [place], [address] GFR/1.73 sq M.predicted among non-blacks MDRD (S/P/Bld) [Vol rate/Area] 92 mL/min/{1.73_m2} Normal >60 [facility] Comment on above: Result Comment: Non- GFR Calc Performed By: #### L 500.4100, L501.9520, L100.0100, L500.4050 #### [facility] [address] [place], [address] Globulin (S) [Mass/Vol] 3.3 g/dL Normal 2.2-4.2 [facility] Comment on above: Performed By: #### L 500.4100, L501.9520, L100.0100, L500.4050 #### [facility] [address] [place], [address] Glucose [Mass/Vol] 139 mg/dL High 74-106 [facility] Comment on above: Result Comment: Fast ing Glucose result greater than or equal to 126 mg/dL suggests DIABETES MELLITUS per A.D.A. criteria. Performed By: #### L 500.4100, L501.9520, L100.0100, L500.4050 #### [facility] [address] [place], [address] Potassium [Moles/Vol] 3.3 mmol/L Low 3.5-5.1 [facility] Comment on above: Performed By: #### L 500.4100, L501.9520, L100.0100, L500.4050 #### [facility] [address] [place], [address] Sodium [Moles/Vol] 141 mmol/L Normal 136-145 [facility] Comment on above: Performed By: #### L 500.4100, L501.9520, L100.0100, L500.4050 #### [facility] [address] [place], [address] T PROT 7.0 g/dL Normal 6.4-8.2 [facility] Comment on above: Performed By: #### L 500.4100, L501.9520, L100.0100, L500.4050 #### [facility] [address] [place], [address] Urea nitrogen [Mass/Vol] 11 mg/dL Normal 7-18 [facility] Comment on above: Performed By: #### L 500.4100, L501.9520, L100.0100, L500.4050 #### [facility] [address] [place], [address] Internal Medicine Office Vis marie 01-21-2024 Internal Medicine Office Visit [facility] [address] [place] [address] [place] [address] OFFICE VISIT Date of Service: 01/21/24 MR#: [id number] Acct: [id number] Name: IRENE BERG Rep #: [id number] : 1950 Provider: Dr. Delta wright MD Age/Sex: 74/F Location: [facility] Status: Signed Intake Vital Signs 10/02/24 13:10 01/21/24 10:12 Height 5 ft 7 in 5 ft 7 in Weight: 246 lb 4 oz BMI 38.5 BP 136/76 H Blood Pressure Location Lt brachial Position Sitting Respiration 16 Pulse 84 Pulse Source Monitor Temp 97.3 F L Temp Source Temporal Pulse Oximetry (%) 98 Oxygen Delivery Method room air Intake Visit Reasons: FOLLOW UP Chief Complaint: Follow-up chronic conditions. Weight concerns. Finger pain Security Guard Required: No Accompanied by: Self Is patient in pain?: No Allergies codeine Allergy (Mild, Verified 01/21/24 10:06) roaring sounds, hives, headache Penicillins Allergy (Mild, Verified 01/21/24 10:06) hives Medications ???Medication ???Instructions ???Recorded ???Confirmed ???Type potassium chloride 20 mEq 20 meq PO DAILY #90 tabs 11/08/22 01/21/24 Rx tablet,extended release hydrocodone-acetami nophen 5-325mg 1 tab PO Q6H 7 days #28 tabs 03/01/23 01/21/24 Rx 5mg-325mg hydrocortisone 2.5 % topical cream 1 applic topical BID PRN rash #30 05/03/23 01/21/24 Rx grams oxybutynin chloride 10 mg 10 mg PO DAILY #90 tabs 05/07/23 01/21/24 Rx tablet,extended release 24 hr acetaminophen 650 mg 650 mg PO Q12H PRN 06/12/23 01/21/24 History tablet,extended release (Tylenol Arthritis Pain) amlodipine 5 mg tablet 5 mg PO DAILY #90 tabs 06/12/23 01/21/24 Rx aspirin 81 mg tablet,delayed 81 mg PO DAILY #90 tabs 06/12/23 01/21/24 Rx release olmesartan 40 mg tablet 40 mg PO QHS #90 tabs 10/09/23 01/21/24 Rx ascorbate calcium (vitamin C) PO DAILY 12/05/23 01/21/24 History cholecalciferol (vitamin D3) [Baby PO DAILY 12/05/23 01/21/24 History Vitamin D3] lions marvin PO DAILY 12/05/23 01/21/24 History red beet 250 mg-sour johnson tab PO 12/05/23 01/21/24 History extract 0.5 mg chewable tablet vitamin C 45 mg-zinc citrate 3.75 tab PO 12/05/23 01/21/24 History mg-elderberry 50 mg chewable tablet (Baoku) vitamin E (dl, acetate) PO DAILY 12/05/23 01/21/24 History furosemide 40 mg tablet 40 mg PO BID fluid #180 tabs 12/31/23 01/21/24 Rx venlafaxine 150 mg 150 mg PO DAILY #90 caps 12/31/23 01/21/24 Rx capsule,extended release 24 hr mecobalamin (vitamin B12) 500 mcg mcg PO 01/21/24 01/21/24 History chewable tablet naltrexone 8 mg-bupropion 90 mg 2 tab PO BID 3 months #360 tabs 01/21/24 01/21/24 Rx tablet,extended release (Contrave) prevagen .Route 01/21/24 History Have you fallen in the past year?: No [facility] Medical History (Updated 01/21/24 @ 12:[address] Delta Sahu MD) Health care maintenance Trigger finger, right Memory changes Left shoulder pain Chronic constipation OAB (overactive bladder) Umbilical discharge Lumbar stenosis Wears dentures Depression Arthritis Bladder disease High cholesterol Back pain Injury of head and neck Difficulty swallowing History of ulceration Heartburn Shortness of breath on exertion Non-smoker On home oxygen therapy Leg cramps History of Holter monitoring History of echocardiogram History of edema Cardiology follow-up encounter History of irregular heartbeat Hx of fracture of ankle Flu vaccine need Preoperative evaluation to rule out surgical contraindication Anxiety and depression Spinal stenosis Urinary frequency Venous insufficiency of both lower extremities Chronic abdominal pain Left arm pain Edema of left upper arm Leg pain, left Palpitations Essential hypertension Edema of both lower legs MRSA (methicillin resistant Staphylococcus aureus) infection Ulcer of left lower extremity with fat layer exposed Other acute postprocedural pain Thyroid disease Lupus Hearing problem Headache History of blood clots Open wound of left lower leg due to animal bite Abscess of left lower leg Cellulitis of left anterior lower leg Bitten by pig, initial encounter Skin necrosis Post-menopausal CPAP (continuous positive airway pressure) dependence On home oxygen therapy History of stress test Scarlet fever Morbid obesity Avulsion injury Animal bite Laceration COVID-19 Suspected COVID-19 virus infection Acute respiratory failure with hypoxia Dislocation of right ankle joint Syndesmotic disruption of right ankle Bimalleolar fracture of right ankle History of left heart catheterization (LHC) ( 07/19/18) SOB (shortness of breath) HESHAM (obstructive sleep apnea) Pulmonary hypertension Essential hypertension Sebaceous cyst Osteoarthritis Urinary incontinence Moo (more content not included)... Normal [facility] Lipid Profileon 01-21-2024 Cholesterol [Mass/Vol] 242 mg/dL High 200 [facility] Comment on above: Result Comment: <200 mg/dL Desirable 200-240 mg/dL Borderline >240 mg/dL High Risk Performed By: #### L 500.4100, L501.9520, L100.0100, L500.4050 #### [facility] [address] [place], [address] Cholesterol in HDL [Mass/Vol] 54 mg/dL Normal [facility] Comment on above: Result Comment: The drugs N-Acetylcysteine and Metamizole may falsely depress this assay. Reference Range HDL <40 mg/dL Low HDL Cholesterol HDL >or= 60 mg/dL High HDL Cholesterol Performed By: #### L 500.4100, L501.9520, L100.0100, L500.4050 #### [facility] [address] [place], [address] Cholesterol in LDL [Mass/Vol] 151 mg/dL High 0-130 [facility] Comment on above: Performed By: #### L 500.4100, [id number], L100.0100, L500.4050 #### [facility] [address] [place], [address] Cholesterol in VLDL [Mass/Vol] 37 mg/dL Normal 5-40 [facility] Comment on above: Performed By: #### L 500.4100, [id number], L100.0100, L500.4050 #### [facility] [address] [place], [address] Triglyceride [Mass/Vol] 184 mg/dL Normal [facility] Comment on above: Result Comment: The drugs N-Acetylcysteine and Metamizole may falsely depress this assay. Serum Triglycerides Reference Interval Normal <150 mg/dL Borderline high 150 - 199 mg/dL High 200 - 499 mg/dL Very High > or = 500 mg/dL Performed By: #### L 500.4100, [id number], L100.0100, L500.4050 #### [facility] [address] [place], [address] Thyroid Stim Hormone (TSH)on 01-21-2024 TSH 1.500 uIU/mL Normal 0.358-3.740 [facility] Comment on above: Performed By: #### L 500.4100, [id number], L100.0100, L500.4050 #### [facility] [address] [place], [address] Basophil percentageOrdered B y: Delta Sahu on 05-03-2023 Basophil percentage 0-5 SEEN /hpf 0-5 [facility] Bilirubin Test strip Ql (U)O rdered By: Delta Sahu on 05-03-2023 Bilirubin Ql (U) Negative Negative [facility] Culture, urineOrdered By: Cathi Sahu on 05-03-2023 Bacteria identified Cx Nom (U) Positive [facility] Bacteria identified Cx Nom (U) Positive [facility] Ketones Test strip Ql (U)Ord ered By: Delta Sahu on 05-03-2023 Ketones Ql (U) 5 mg/dl Negative [facility] Mucus LM Ql (Urine sed)Order ed By: Delta Sahu on 05-03-2023 Mucus Ql (Urine sed) 0 SEEN /hpf [facility] Nitrite Test strip Ql (U)Ord ered By: Delta Sahu on 05-03-2023 Nitrite Ql (U) Negative Negative [facility] No Panel InformationOrdered By: Delta Sahu on 05-03-2023 Urine RBC 0-5 SEEN /hpf 0-5 [facility] Protein Test strip Ql (U)Ord ered By: Delta Sahu on 05-03-2023 Protein Ql (U) 15 mg/dl Negative [facility] Squamous epithelial cells de tection in urine sediment by light microscopyOrdered By: Delta Sahu on 05-03-2023 Epithelial cells.squamous LM Ql (Urine sed) 0-5 SEEN /hpf 5-10 [facility] Urine blood detectionOrdered By: Delta Sahu on 05-03-2023 RBC Ql (U) 10 /ul Negative [facility] Urine clarityOrdered By: Tab Sahu on 05-03-2023 Clarity (U) Sl. Cloudy Clear [facility] Urine color determinationOrd ered By: Delta Sahu on 05-03-2023 Color (U) Yellow Yellow [facility] Urine glucose detectionOrder ed By: Delta Sahu on 05-03-2023 Glucose Ql (U) Normal mg/dl Normal [facility] Urine leukocyte esterase det ection by dipstickOrdered By: Delta Sahu on 05-03-2023 Leukocyte esterase Test strip Ql (U) 100 /ul Negative [facility] Urine pHOrdered By: Wolf Sahu on 05-03-2023 pH (U) 6.0 [pH] 5.0 - 8.0 [facility] Urine sediment bacteria coun t by microscopy (number/high power field)Ordered By: Delta Sahu on 05-03-2023 Bacteria LM.HPF (Urine sed) [#/Area] RARE /hpf None Seen [facility] Urine specific gravity measu rementOrdered By: Delta Sahu on 05-03-2023 Specific gravity (U) [Rel density] 1.025 1.002-1.030 [facility] Urine urobilinogen measureme ntOrdered By: Delta Sahu on 05-03-2023 Urobilinogen Ql (U) Normal mg/dl Normal [facility] Absolute lymphocyte countOrd ered By: Imelda Carvajal on 03-04-2023 Lymphocytes Auto (Unsp spec) [#/Vol] 2.50 10*3/uL 0.83-4.51 [facility] Basophil percentageOrdered B y: Imelda Carvajal on 03-04-2023 Basophils/100 WBC (Bld) 0.2 % 0-1 [facility] Chloride [Moles/Vol] 103 mmol/L 98-107 [facility] Eosinophils/100 WBC (Bld) 2.6 % 0-5 [facility] Glucose [Mass/Vol] 140 mg/dL 74-106 [facility] Comment on above: Fasting Glucose resu lt greater than or equal to 126 mg/dL suggests DIABETES MELLITUS per A.D.A. criteria. Neutrophils (Bld) [#/Vol] 6.6 10*3/uL 2.0-7.7 [facility] Neutrophils/100 WBC (Bld) 62.3 % 47-70 [facility] Potassium [Moles/Vol] 3.5 mmol/L 3.5-5.1 [facility] Sodium [Moles/Vol] 135 mmol/L 136-145 [facility] WBC (Bld) [#/Vol] 10.7 10*3/uL 4.4-11.0 [facility] Blood erythrocytes count (nu mber/volume)Ordered By: Imelda Carvajal on 03-04-2023 RBC (Bld) [#/Vol] 3.98 10*6/uL 4.2-5.4 [facility] Blood hemoglobin measurement (mass/volume)Ordered By: Imelda Carvajal on 03-04-2023 Hemoglobin (Bld) [Mass/Vol] 12.3 g/dL 12.0-15.0 [facility] Blood lymphocytes/100 leukoc ytesOrdered By: Imelda Carvajal on 03-04-2023 Lymphocytes/100 WBC (Bld) 23.5 % 19-41 [facility] Blood monocytes/100 leukocyt esOrdered By: Imelda Carvajal on 03-04-2023 Monocytes/100 WBC (Bld) 11.1 % 0-10 [facility] Blood platelet mean volumeOr dered By: Imelda Carvajal on 03-04-2023 Platelet mean volume (Bld) [Entitic vol] 10.2 fL 6.2-12.0 [facility] Determination of erythrocyte mean corpuscular volume (MCV)Ordered By: Imelda Carvajal on 03-04-2023 MCV (RBC) [Entitic vol] 95.7 fL 81-99 [facility] Hematocrit Auto (Bld) [Volum e fraction]Ordered By: Imelda Carvajal on 03-04-2023 Hematocrit (Bld) [Volume fraction] 38.1 % 37-47 [facility] - Chemistry and C hemistry - challengeOrdered By: Imelda Carvajal on 03-04-2023 CO2 [Moles/Vol] 28.0 mmol/L 21.0-32.0 [facility] Urea nitrogen/Creatinine [Mass ratio] 14.1 mg/mg 10-20 [facility] - Hematology and Cell countsOrdered By: Imelda Carvajal on 03-04-2023 Erythrocyte distribution width (RBC) [Entitic vol] 45.7 fL 35.1-43.9 [facility] Erythrocyte distribution width (RBC) [Ratio] 12.9 % 11.6-14.6 [facility] Immature granulocytes/100 WBC (Bld) 0.300 % 0.0-0.9 [facility] Comment on above: IG% - Immature Granu locytes (promyelocytes, myelocytes and metamyelocytes) > 1% indicates that a LEFT SHIFT is Present. MCH (RBC) [Entitic mass] 30.9 pg 27.0-32.0 [facility] Nucleated RBC/100 WBC (Bld) [Ratio] 0 % 0-5 [facility] MCHC Auto (RBC) [Mass/Vol]Or dered By: Imelda Carvajal on 03-04-2023 MCHC (RBC) [Mass/Vol] 32.3 g/dL 32-36 [facility] No Panel InformationOrdered By: Imelda Carvajal on 03-04-2023 Estimated Creatinine Clearance Calc 48.72 ml/min [facility] Estimated GFR (MDRD) Amer 104 mL/min >60 [facility] Comment on above: GFR Calc Estimated GFR (MDRD) Non-Af Amer 86 mL/min >60 [facility] Comment on above: Non- GFR Calc Platelets bldOrdered By: Jazmine Carvajal on 03-04-2023 Platelets (Bld) [#/Vol] 300 10*3/uL 150-450 [facility] Serum or plasma calcium nguyen urement (mass/volume)Ordered By: Imelda Carvajal on 03-04-2023 Calcium [Mass/Vol] 8.4 mg/dL 8.5-10.1 [facility] Serum or plasma creatinine m easurement (mass/volume)Ordered By: Imelda Carvajal on 03-04-2023 Creatinine [Mass/Vol] 0.71 mg/dL 0.55-1.02 [facility] Comment on above: The validity of the calculated GFR & GFRAA in patients over 70 years has not been determined. Clinical correlation is essential. Serum or plasma urea nitroge n measurement (mass/volume)Ordered By: Imelda Carvajal on 03-04-2023 Urea nitrogen [Mass/Vol] 10 mg/dL 7-18 [facility] Thin prep Papanicolaou smear with manual screeningOrdered By: Imelda Carvajal on 03-04-2023 Thin prep Papanicolaou smear with manual screening 4 5-15 [facility] INR in Blood by Coagulation assayOrdered By: David Benjamin on 02-05-2023 INR Coag (Bld) [Relative time] 1.0 {INR} [facility] - CoagulationOrde red By: David Benjamin on 02-05-2023 aPTT Coag (Bld) [Time] 29.5 s 24.1-36.2 [facility] PT Coag (PPP) [Time] 13.0 s 11.7-14.9 [facility] Absolute lymphocyte countOrd ered By: Delta Sahu on 12-20-2022 Lymphocytes Auto (Unsp spec) [#/Vol] 2.44 10*3/uL 0.83-4.51 [facility] Basophil percentageOrdered B y: Delta Sahu on 12-20-2022 Basophils/100 WBC (Bld) 0.6 % 0-1 [facility] Bilirubin [Mass/Vol] 0.40 mg/dL 0.20-1.00 [facility] Comment on above: For patients on eltr ombopag therapy, use of Dimension [place] TBIL is not recommended. Chloride [Moles/Vol] 110 mmol/L 98-107 [facility] Cholesterol [Mass/Vol] 244 mg/dL <200 [facility] Comment on above: <200 mg/dL Desirable 200-240 mg/dL Borderline >240 mg/dL High Risk Eosinophils/100 WBC (Bld) 1.6 % 0-5 [facility] Glucose [Mass/Vol] 120 mg/dL 74-106 [facility] Comment on above: Fasting Glucose resu lt from 100 to 125 mg/dL suggests IMPAIRED HOMEOSTASIS per A.D.A. criteria. Neutrophils (Bld) [#/Vol] 3.7 10*3/uL 2.0-7.7 [facility] Neutrophils/100 WBC (Bld) 53.8 % 47-70 [facility] Potassium [Moles/Vol] 3.8 mmol/L 3.5-5.1 [facility] Protein [Mass/Vol] 7.6 g/dL 6.4-8.2 [facility] Sodium [Moles/Vol] 142 mmol/L 136-145 [facility] Triglyceride [Mass/Vol] 157 mg/dL <199 [facility] Comment on above: The drugs N-Acetylcy steine and Metamizole may falsely depress this assay.Serum Triglycerides Reference Interval Normal <150 mg/dL Borderline high 150 - 199 mg/dL High 200 - 499 mg/dL Very High > or = 500 mg/dL WBC (Bld) [#/Vol] 6.9 10*3/uL 4.4-11.0 [facility] Blood erythrocytes count (nu mber/volume)Ordered By: Delta Sahu on 12-20-2022 RBC (Bld) [#/Vol] 4.93 10*6/uL 4.2-5.4 [facility] Blood hemoglobin measurement (mass/volume)Ordered By: Delta Sahu on 12-20-2022 Hemoglobin (Bld) [Mass/Vol] 15.5 g/dL 12.0-15.0 [facility] Blood lymphocytes/100 leukoc ytesOrdered By: Delta Sahu on 12-20-2022 Lymphocytes/100 WBC (Bld) 35.5 % 19-41 [facility] Blood monocytes/100 leukocyt esOrdered By: Delta Sahu on 12-20-2022 Monocytes/100 WBC (Bld) 8.4 % 0-10 [facility] Blood platelet mean volumeOr dered By: Delta Sahu on 12-20-2022 Platelet mean volume (Bld) [Entitic vol] 10.4 fL 6.2-12.0 [facility] Determination of erythrocyte mean corpuscular volume (MCV)Ordered By: Delta Sahu on 12-20-2022 MCV (RBC) [Entitic vol] 96.3 fL 81-99 [facility] Hematocrit Auto (Bld) [Volum e fraction]Ordered By: [facility] on 12-20-2022 Hematocrit (Bld) [Volume fraction] 47.5 % 37-47 [facility] - Chemistry and C hemistry - challengeOrdered By: [facility] on 12-20-2022 ALP [Catalytic activity/Vol] 75 U/L 45-117 [facility] ALT [Catalytic activity/Vol] 28 U/L 13-56 [facility] CO2 [Moles/Vol] 25.0 mmol/L 21.0-32.0 [facility] Globulin (S) [Mass/Vol] 3.7 g/dL 2.2-4.2 [facility] Urea nitrogen/Creatinine [Mass ratio] 23.0 mg/mg 10-20 [facility] - Hematology and Cell countsOrdered By: christelvernalsarthak Sahu on 12-20-2022 Erythrocyte distribution width (RBC) [Entitic vol] 42.7 fL 35.1-43.9 [facility] Erythrocyte distribution width (RBC) [Ratio] 12.0 % 11.6-14.6 [facility] Immature granulocytes/100 WBC (Bld) 0.100 % 0.0-0.9 [facility] Comment on above: IG% - Immature Granu locytes (promyelocytes, myelocytes and metamyelocytes) > 1% indicates that a LEFT SHIFT is Present. MCH (RBC) [Entitic mass] 31.4 pg 27.0-32.0 [facility] Nucleated RBC/100 WBC (Bld) [Ratio] 0 % 0-5 [facility] MCHC Auto (RBC) [Mass/Vol]Or dered By: Delta Sahu on 12-20-2022 MCHC (RBC) [Mass/Vol] 32.6 g/dL 32-36 [facility] No Panel InformationOrdered By: Delta Sahu on 12-20-2022 Estimated GFR (MDRD) Amer 93 mL/min >60 [facility] Comment on above: GFR Calc Estimated GFR (MDRD) Non-Af Amer 77 mL/min >60 [facility] Comment on above: Non- GFR Calc Platelets bldOrdered By: Tab Sahu on 12-20-2022 Platelets (Bld) [#/Vol] 389 10*3/uL 150-450 [facility] Serum or plasma albumin nguyen urement (mass/volume)Ordered By: Delta Sahu on 12-20-2022 Albumin [Mass/Vol] 3.9 g/dL 3.2-5.0 [facility] Serum or plasma albumin/glob ulin mass ratioOrdered By: Delta Sahu on 12-20-2022 Albumin/Globulin [Mass ratio] 1.1 {ratio} 0.9-2.4 [facility] Serum or plasma calcium nguyen urement (mass/volume)Ordered By: Delta Sahu on 12-20-2022 Calcium [Mass/Vol] 9.3 mg/dL 8.5-10.1 [facility] Serum or plasma cholesterol in HDL measurement (mass/volume)Ordered By: Delta Sahu on 12-20-2022 Cholesterol in HDL [Mass/Vol] 52 mg/dL >40 [facility] Comment on above: The drugs N-Acetylcy steine and Metamizole may falsely depress this assay. Reference Range HDL <40 mg/dL Low HDL Cholesterol HDL >or= 60 mg/dL High HDL Cholesterol Serum or plasma cholesterol in VLDL measurement (mass/volume)Ordered By: Delta Sahu on 12-20-2022 Cholesterol in VLDL [Mass/Vol] 31 mg/dL 5-40 [facility] Serum or plasma creatinine m easurement (mass/volume)Ordered By: Delta Sahu on 12-20-2022 Creatinine [Mass/Vol] 0.78 mg/dL 0.55-1.02 [facility] Comment on above: The validity of the calculated GFR & GFRAA in patients over 70 years has not been determined. Clinical correlation is essential. Serum or plasma low density lipoprotein (LDL) cholesterol measurement (mass/volume)Ordered By: Delta Sahu on 12-20-2022 Cholesterol in LDL [Mass/Vol] 161 mg/dL 0-130 [facility] Serum or plasma urea nitroge n measurement (mass/volume)Ordered By: Delta Sahu on 12-20-2022 Urea nitrogen [Mass/Vol] 18 mg/dL 09-19 [facility] Thin prep Papanicolaou smear with manual screeningOrdered By: beatriz Sahu on 12-20-2022 Thin prep Papanicolaou smear with manual screening 12 U/L [facility] Thin prep Papanicolaou smear with manual screening 7 07-17 [facility] Basophil percentageOrdered B y: Delta Sahu on 10-17-2022 Creatinine [Mass/Vol] 1.4 mg/dL 0.55-1.02 [facility] - Chemistry and C hemistry - challengeOrdered By: Delta Sahu on 10-17-2022 GFR/1.73 sq M.predicted among non-blacks MDRD (S/P/Bld) [Vol rate/Area] 41.0000 mL/min/{1.73_m2} >60 [facility] Basophil percentageOrdered B y: Delta Sahu on 09-14-2022 Basophil percentage 0-5 SEEN /hpf 0-5 [facility] Bilirubin [Mass/Vol] 0.30 mg/dL 0.20-1.00 [facility] Comment on above: For patients on eltr ombopag therapy, use of Dimension [place] TBIL is not recommended. Chloride [Moles/Vol] 105 mmol/L 98-107 [facility] Cholesterol [Mass/Vol] 266 mg/dL <200 [facility] Comment on above: <200 mg/dL Desirable 200-240 mg/dL Borderline >240 mg/dL High Risk Glucose [Mass/Vol] 141 mg/dL 74-106 [facility] Comment on above: Fasting Glucose resu lt greater than or equal to 126 mg/dL suggests DIABETES MELLITUS per A.D.A. criteria. Potassium [Moles/Vol] 4.0 mmol/L 3.5-5.1 [facility] Protein [Mass/Vol] 7.3 g/dL 6.4-8.2 [facility] Sodium [Moles/Vol] 142 mmol/L 136-145 [facility] Triglyceride [Mass/Vol] 217 mg/dL <199 [facility] Comment on above: The drugs N-Acetylcy steine and Metamizole may falsely depress this assay.Serum Triglycerides Reference Interval Normal <150 mg/dL Borderline high 150 - 199 mg/dL High 200 - 499 mg/dL Very High > or = 500 mg/dL Bilirubin Test strip Ql (U)O rdered By: Delta Sahu on 09-14-2022 Bilirubin Ql (U) Negative Negative [facility] Culture, urineOrdered By: Cathi Sahu on 09-14-2022 Bacteria identified Cx Nom (U) Mixed Gram Pos & Gram Neg Org [facility] Ketones Test strip Ql (U)Ord ered By: Delta Sahu on 09-14-2022 Ketones Ql (U) 5 mg/dl Negative [facility] - Chemistry and C hemistry - challengeOrdered By: Delta Sahu on 09-14-2022 ALP [Catalytic activity/Vol] 71 U/L 45-117 [facility] ALT [Catalytic activity/Vol] 33 U/L 13-56 [facility] CO2 [Moles/Vol] 29.0 mmol/L 21.0-32.0 [facility] Globulin (S) [Mass/Vol] 3.3 g/dL 2.2-4.2 [facility] Urea nitrogen/Creatinine [Mass ratio] 27.8 mg/mg 10-20 [facility] Mucus LM Ql (Urine sed)Order ed By: Delta Sahu on 09-14-2022 Mucus Ql (Urine sed) 1+ /hpf [facility] Nitrite Test strip Ql (U)Ord ered By: Delta Sahu on 09-14-2022 Nitrite Ql (U) Negative Negative [facility] No Panel InformationOrdered By: Delta Sahu on 09-14-2022 Estimated GFR (MDRD) Amer 92 mL/min >60 [facility] Comment on above: GFR Calc Estimated GFR (MDRD) Non-Af Amer 76 mL/min >60 [facility] Comment on above: Non- GFR Calc Protein Test strip Ql (U)Ord ered By: Delta Sahu on 09-14-2022 Protein Ql (U) 15 mg/dl Negative [facility] Serum or plasma albumin nguyen urement (mass/volume)Ordered By: Delta Sahu on 09-14-2022 Albumin [Mass/Vol] 4.0 g/dL 3.2-5.0 [facility] Serum or plasma albumin/glob ulin mass ratioOrdered By: Delta Sahu on 09-14-2022 Albumin/Globulin [Mass ratio] 1.2 {ratio} 0.9-2.4 [facility] Serum or plasma calcium nguyen urement (mass/volume)Ordered By: Delta Sahu on 09-14-2022 Calcium [Mass/Vol] 9.9 mg/dL 8.5-10.1 [facility] Serum or plasma cholesterol in HDL measurement (mass/volume)Ordered By: Delta Sahu on 09-14-2022 Cholesterol in HDL [Mass/Vol] 53 mg/dL >40 [facility] Comment on above: The drugs N-Acetylcy steine and Metamizole may falsely depress this assay. Reference Range HDL <40 mg/dL Low HDL Cholesterol HDL >or= 60 mg/dL High HDL Cholesterol Serum or plasma cholesterol in VLDL measurement (mass/volume)Ordered By: Delta Sahu on 09-14-2022 Cholesterol in VLDL [Mass/Vol] 43 mg/dL 5-40 [facility] Serum or plasma creatinine m easurement (mass/volume)Ordered By: Delta Sahu on 09-14-2022 Creatinine [Mass/Vol] 0.79 mg/dL 0.55-1.02 [facility] Comment on above: The validity of the calculated GFR & GFRAA in patients over 70 years has not been determined. Clinical correlation is essential. Serum or plasma low density lipoprotein (LDL) cholesterol measurement (mass/volume)Ordered By: Delta Sahu on 09-14-2022 Cholesterol in LDL [Mass/Vol] 170 mg/dL 0-130 [facility] Serum or plasma urea nitroge n measurement (mass/volume)Ordered By: Delta Sahu on 09-14-2022 Urea nitrogen [Mass/Vol] 22 mg/dL 7-18 [facility] Squamous epithelial cells de tection in urine sediment by light microscopyOrdered By: Delta Sahu on 09-14-2022 Epithelial cells.squamous LM Ql (Urine sed) 0-5 SEEN /hpf 5-10 [facility] Thin prep Papanicolaou smear with manual screeningOrdered By: Delta Sahu on 09-14-2022 Thin prep Papanicolaou smear with manual screening 17 U/L 15-37 [facility] Thin prep Papanicolaou smear with manual screening 8 5-15 [facility] Urine blood detectionOrdered By: Delta Sahu on 09-14-2022 RBC Ql (U) 10 /ul Negative [facility] RBC Ql (U) 0 SEEN /hpf 0-5 [facility] Urine clarityOrdered By: Tab Sahu on 09-14-2022 Clarity (U) Clear Clear [facility] Urine color determinationOrd ered By: Delta Sahu on 09-14-2022 Color (U) Yellow Yellow [facility] Urine glucose detectionOrder ed By: Delta Sahu on 09-14-2022 Glucose Ql (U) Normal mg/dl Normal [facility] Urine leukocyte esterase det ection by dipstickOrdered By: Delta Sahu on 09-14-2022 Leukocyte esterase Test strip Ql (U) 25 /ul Negative [facility] Urine pHOrdered By: Wolf Sahu on 09-14-2022 pH (U) 5.0 [pH] 5.0 - 8.0 [facility] Urine sediment bacteria coun t by microscopy (number/high power field)Ordered By: Delta Sahu on 09-14-2022 Bacteria LM.HPF (Urine sed) [#/Area] RARE /hpf None Seen [facility] Urine specific gravity measu rementOrdered By: Delta Sahu on 09-14-2022 Specific gravity (U) [Rel density] 1.025 1.002-1.030 [facility] Urobilinogen Auto test strip Ql (U)Ordered By: Delta Sahu on 09-14-2022 Urobilinogen Ql (U) Normal mg/dl Normal [facility] Absolute lymphocyte countOrd ered By: Parish Plascencia on 08-02-2022 Lymphocytes Auto (Unsp spec) [#/Vol] 3.00 10*3/uL 0.83-4.51 [facility] Basophil percentageOrdered B y: Parish Plascencia on 08-02-2022 Basophils/100 WBC (Bld) 0.4 % 0-1 [facility] Bilirubin [Mass/Vol] 0.70 mg/dL 0.20-1.00 [facility] Comment on above: For patients on eltr ombopag therapy, use of Dimension [place] TBIL is not recommended. Chloride [Moles/Vol] 103 mmol/L 98-107 [facility] Eosinophils/100 WBC (Bld) 0.7 % 0-5 [facility] Glucose [Mass/Vol] 117 mg/dL 74-106 [facility] Comment on above: Fasting Glucose resu lt from 100 to 125 mg/dL suggests IMPAIRED HOMEOSTASIS per A.D.A. criteria. Neutrophils (Bld) [#/Vol] 7.0 10*3/uL 2.0-7.7 [facility] Neutrophils/100 WBC (Bld) 63.8 % 47-70 [facility] Potassium [Moles/Vol] 3.4 mmol/L 3.5-5.1 [facility] Protein [Mass/Vol] 7.6 g/dL 6.4-8.2 [facility] Sodium [Moles/Vol] 141 mmol/L 136-145 [facility] WBC (Bld) [#/Vol] 10.9 10*3/uL 4.4-11.0 [facility] Blood erythrocytes count (nu mber/volume)Ordered By: Parish Plascencia on 08-02-2022 RBC (Bld) [#/Vol] 4.80 10*6/uL 4.2-5.4 [facility] Blood hemoglobin measurement (mass/volume)Ordered By: [facility] on 08-02-2022 Hemoglobin (Bld) [Mass/Vol] 15.3 g/dL 12.0-15.0 [facility] Blood lymphocytes/100 leukoc ytesOrdered By: [facility] on 08-02-2022 Lymphocytes/100 WBC (Bld) 27.4 % 19-41 [facility] Blood monocytes/100 leukocyt esOrdered By: [facility] on 08-02-2022 Monocytes/100 WBC (Bld) 7.4 % 0-10 [facility] Blood platelet mean volumeOr dered By: [facility] on 08-02-2022 Platelet mean volume (Bld) [Entitic vol] 10.0 fL 6.2-12.0 [facility] Determination of erythrocyte mean corpuscular volume (MCV)Ordered By: [facility] on 08-02-2022 MCV (RBC) [Entitic vol] 96.5 fL 81-99 [facility] Hematocrit Auto (Bld) [Volum e fraction]Ordered By: [facility] on 08-02-2022 Hematocrit (Bld) [Volume fraction] 46.3 % 37-47 [facility] Laboratory - Chemistry and C hemistry - challengeOrdered By: [facility] 08-02-2022 ALP [Catalytic activity/Vol] 72 U/L 45-117 [facility] ALT [Catalytic activity/Vol] 28 U/L 13-56 [facility] CO2 [Moles/Vol] 31.0 mmol/L 21.0-32.0 [facility] Globulin (S) [Mass/Vol] 3.4 g/dL 2.2-4.2 [facility] Urea nitrogen/Creatinine [Mass ratio] 22.1 mg/mg 10-20 [facility] - Hematology and Cell countsOrdered By: [facility] 08-02-2022 Erythrocyte distribution width (RBC) [Entitic vol] 46.6 fL 35.1-43.9 [facility] Erythrocyte distribution width (RBC) [Ratio] 13.1 % 11.6-14.6 [facility] Immature granulocytes/100 WBC (Bld) 0.300 % 0.0-0.9 [facility] Comment on above: IG% - Immature Granu locytes (promyelocytes, myelocytes and metamyelocytes) > 1% indicates that a LEFT SHIFT is Present. MCH (RBC) [Entitic mass] 31.9 pg 27.0-32.0 [facility] Nucleated RBC/100 WBC (Bld) [Ratio] 0 % 0-5 [facility] MCHC Auto (RBC) [Mass/Vol]Or dered By: Parish Plascencia on 08-02-2022 MCHC (RBC) [Mass/Vol] 33.0 g/dL 32-36 [facility] No Panel InformationOrdered By: Parish Plascencia on 08-02-2022 Estimated GFR (MDRD) Amer 79 mL/min >60 [facility] Comment on above: GFR Calc Estimated GFR (MDRD) Non-Af Amer 65 mL/min >60 [facility] Comment on above: Non- GFR Calc Thyroid Stimulating Hormone (TSH) 1.69 uIU/mL 0.358-3.74 [facility] Vitamin D 25-Hydroxy 35.4 ng/mL [facility] Comment on above: Vitamin D 25(OH) Sta tus Range Deficiency <20 ng/mL (50nmol/L) Insufficiency 20 - 30 ng/mL (50 - 75 nmol/L) Sufficiency 30 - 100 ng/mL (75 - 250 nmol/L) Toxicity >100 ng/mL (>250 nmol/L) Platelets bldOrdered By: Parish Plascencia on 08-02-2022 Platelets (Bld) [#/Vol] 420 10*3/uL 150-450 [facility] Serum or plasma albumin nguyen urement (mass/volume)Ordered By: Parish Plascencia on 08-02-2022 Albumin [Mass/Vol] 4.2 g/dL 3.2-5.0 [facility] Serum or plasma albumin/glob ulin mass ratioOrdered By: Parish Plascencia on 08-02-2022 Albumin/Globulin [Mass ratio] 1.2 {ratio} 0.9-2.4 [facility] Serum or plasma calcium nguyen urement (mass/volume)Ordered By: Parish Plascencia on 08-02-2022 Calcium [Mass/Vol] 9.0 mg/dL 8.5-10.1 [facility] Serum or plasma creatinine m easurement (mass/volume)Ordered By: Parish Plascencia on 08-02-2022 Creatinine [Mass/Vol] 0.90 mg/dL 0.55-1.02 [facility] Comment on above: The validity of the calculated GFR & GFRAA in patients over 70 years has not been determined. Clinical correlation is essential. Serum or plasma urea nitroge n measurement (mass/volume)Ordered By: Parish Plascencia on 08-02-2022 Urea nitrogen [Mass/Vol] 20 mg/dL 7-18 [facility] Thin prep Papanicolaou smear with manual screeningOrdered By: Parish Plascencia on 08-02-2022 Thin prep Papanicolaou smear with manual screening 17 U/L 15-37 [facility] Thin prep Papanicolaou smear with manual screening 7 5-15 [facility] .Auto Diffon 02-09-2022 Basophil, Absolute 0.0 10 3/mcL Normal 0.0-0.2 [facility] ([place]) Basophils/100 WBC (Bld) 0.1 % Normal 0.0-2.5 A On license of [facility] ([place]) Eosinophil, Absolute 0.0 10 3/mcL Normal 0.0-0.4 [facility] ([place]) Eosinophils/100 WBC (Bld) 0.0 % Normal 0.0-7.0 [facility] ([place]) Lymphocyte, Absolute 1.5 10 3/mcL Normal 0.8-3.9 [facility] ([place]) Lymphocytes/100 WBC (Bld) 11.0 % Normal 10.0-50.0 [facility] ([place]) Monocyte, Absolute 1.1 10 3/mcL High 0.2-1.0 [facility] ([place] Monocytes/100 WBC (Bld) 7.9 % Normal 1.7-13.0 A On license of [facility] ([place]) Neutrophils/100 WBC (Bld) 81.0 % High 37.0-80.0 [facility] ([place]) .GFRon 02-09-2022 GFR 101 ml/min/1.73sqm Normal [facility] ([place]) Comment on above: Result Comment: GFR Population mean for , Non- Americans Ages 20-29 = 116 mL/min/1.73 sq.m. Ages 30-39 = 107 mL/min/1.73 sq.m. Ages 40-49 = 99 mL/min/1.73 sq.m. Ages 50-59 = 93 mL/min/1.73 sq.m. Ages 60-69 = 85 mL/min/1.73 sq.m. Ages 70+ = 75 mL/min/1.73 sq.m. Chronic Kidney Disease: Less than 60 mL/min/1.73 square meters End Stage Renal Disease: Less than 15 mL/min/1.73 square meters Performed By: #### SHALOM REY TROPHS ####[address] [place], [place] [address] GFR Non- 84 ml/min/1.73sqm Normal [facility] ([place]) Comment on above: Result Comment: GFR Population mean for , Non- Americans Ages 20-29 = 116 mL/min/1.73 sq.m. Ages 30-39 = 107 mL/min/1.73 sq.m. Ages 40-49 = 99 mL/min/1.73 sq.m. Ages 50-59 = 93 mL/min/1.73 sq.m. Ages 60-69 = 85 mL/min/1.73 sq.m. Ages 70+ = 75 mL/min/1.73 sq.m. Chronic Kidney Disease: Less than 60 mL/min/1.73 square meters End Stage Renal Disease: Less than 15 mL/min/1.73 square meters Performed By: #### SHALOM REY TROPHS ####[address] [place], [place] [address] .NEUABSon 02-09-2022 Neutrophil, Absolute 11.0 10 3/mcL High 2.9-6.2 A On license of [facility] ([place]) BMPon 02-09-2022 BUN/Creatinine Ratio 20 ratio Normal 7-27 [facility] ([place]) Comment on above: Performed By: #### SHALOM REY TROPHS ####[address] [place], [place] [address] Calcium [Mass/Vol] 9.0 mg/dL Normal 8.4-10.2 [facility] ([place]) Comment on above: Performed By: #### SHALOM REY, TROPHS ####[address] [place], [place] [address] Chloride [Moles/Vol] 105 mmol/L Normal 98-107 [facility] ([place]) Comment on above: Performed By: #### Candelario LERMA, SHALOM, TROPHS ####[address] [place], [place] [address] CO2 [Moles/Vol] 28 mmol/L Normal 23-31 [facility] ([place]) Comment on above: Performed By: #### SHALOM REY, TROPHS ####[address] [place], [place] [address] Creatinine [Mass/Vol] 0.69 mg/dL Normal 0.55-1.02 [facility] ([place]) Comment on above: Performed By: #### SHALOM REY, TROPHS ####[address] [place], [place] [address] Electrolyte Balance 8.0 mEq/L Normal 4.0-15.0 [facility] ([place]) Comment on above: Performed By: #### SHALOM REY, TROPHS ####[address] [place], [place] [address] Glucose [Mass/Vol] 143 mg/dL High 83-110 [facility] ([place]) Comment on above: Performed By: #### Candelario LERMA, SHALOM, TROPHS ####[address] [place], [place] [address] Potassium [Moles/Vol] 4.1 mmol/L Normal 3.5-5.1 [facility] ([place]) Comment on above: Performed By: #### Candelario LERMA, SHALOM, TROPHS ####[address] [place], [place] [address] Sodium [Moles/Vol] 141 mmol/L Normal 136-145 [facility] ([place]) Comment on above: Performed By: #### Candelario LERMA, SHALOM, TROPHS ####[address] [place], [place] [address] Urea nitrogen [Mass/Vol] 14 mg/dL Normal 7-18 [facility]) Comment on above: Performed By: #### G FR, SHALOM, TROPHS ####[address] [place], [place] [address] CBCon 02-09-2022 Erythrocyte distribution width (RBC) [Ratio] 13.0 % Normal 11.5-14.5 [facility] ([place]) Hematocrit (Bld) [Volume fraction] 35.1 % Low 37.0-47.0 [facility] ([place]) Hgb 12.2 G/dL Normal 12.0-16.0 [facility] ([place]) MCH (RBC) [Entitic mass] 32.7 pg High 27.0-31.2 [facility]) MCHC 34.8 G/dL Normal 33.0-37.0 [facility]) MCV (RBC) [Entitic vol] 93.9 fL Normal 80.0-94.0 A On license of [facility] ([place]) Platelet 342 10 3/mcL Normal 130-400 [facility]) Platelet mean volume (Bld) [Entitic vol] 7.9 fL Normal 7.4-10.4 [facility] ([place]) RBC 3.73 10 6/mcL Low 4.20-5.40 [facility] ([place]) WBC 13.6 10 3/mcL High 4.6-10.8 [facility]) LABORATORYOrdered By: Terese Emerson on 02-09-2022 Basophil, Absolute 0.0 103/mcL Invalid Interpretation Code 0.0 - 0.2 10^3/mcL AO Workflow SS Basophils/100 WBC (Bld) 0.1 % Invalid Interpretation Code 0.0 - 2.5 % AO Workflow SS Calcium [Mass/Vol] 9.0 mg/dL Invalid Interpretation Code 8.4 - 10.2 mg/dL AO ADM SS Chloride [Moles/Vol] 105 mmol/L Invalid Interpretation Code 98 - 107 mmol/L AO ADM SS CO2 [Moles/Vol] 28 mmol/L Invalid Interpretation Code 23 - 31 mmol/L AO ADM SS Creatinine [Mass/Vol] 0.69 mg/dL Invalid Interpretation Code 0.55 - 1.02 mg/dL AO ADM SS Electrolyte Balance 8.0 mEq/L Invalid Interpretation Code 4.0 - 15.0 mEq/L AO ADM SS Eosinophil, Absolute 0.0 103/mcL Invalid Interpretation Code 0.0 - 0.4 10^3/mcL AO Workflow SS Eosinophils/100 WBC (Bld) 0.0 % Invalid Interpretation Code 0.0 - 7.0 % AO Workflow SS Erythrocyte distribution width (RBC) [Ratio] 13.0 % Invalid Interpretation Code 11.5 - 14.5 % AO Workflow SS Glucose [Mass/Vol] 143 mg/dL Invalid Interpretation Code 83 - 110 mg/dL AO ADM SS Hematocrit (Bld) [Volume fraction] 35.1 % Invalid Interpretation Code 37.0 - 47.0 % AO Workflow SS Hemoglobin (Bld) [Mass/Vol] 12.2 G/dL Invalid Interpretation Code 12.0 - 16.0 G/dL AO Workflow SS Lymphocyte, Absolute 1.5 103/mcL Invalid Interpretation Code 0.8 - 3.9 10^3/mcL AO Workflow SS Lymphocytes/100 WBC (Bld) 11.0 % Invalid Interpretation Code 10.0 - 50.0 % AO Workflow SS MCH (RBC) [Entitic mass] 32.7 pg Invalid Interpretation Code 27.0 - 31.2 pg AO Workflow SS MCHC 34.8 G/dL Invalid Interpretation Code 33.0 - 37.0 G/dL AO Workflow SS MCV (RBC) [Entitic vol] 93.9 fL Invalid Interpretation Code 80.0 - 94.0 fL AO Workflow SS Monocyte, Absolute 1.1 103/mcL Invalid Interpretation Code 0.2 - 1.0 10^3/mcL AO Workflow SS Monocytes/100 WBC (Bld) 7.9 % Invalid Interpretation Code 1.7 - 13.0 % AO Workflow SS Neutrophil, Absolute 11.0 103/mcL Invalid Interpretation Code 2.9 - 6.2 10^3/mcL AO Workflow SS Neutrophils/100 WBC (Bld) 81.0 % Invalid Interpretation Code 37.0 - 80.0 % AO Workflow SS Platelet mean volume (Bld) [Entitic vol] 7.9 fL Invalid Interpretation Code 7.4 - 10.4 fL AO Workflow SS Platelets (Bld) [#/Vol] 342 103/mcL Invalid Interpretation Code 130 - 400 10^3/mcL AO Workflow SS Potassium [Moles/Vol] 4.1 mmol/L Invalid Interpretation Code 3.5 - 5.1 mmol/L AO ADM SS RBC (Bld) [#/Vol] 3.73 106/mcL Invalid Interpretation Code 4.20 - 5.40 10^6/mcL AO Workflow SS Sodium [Moles/Vol] 141 mmol/L Invalid Interpretation Code 136 - 145 mmol/L AO ADM SS Troponin I.cardiac DL <= 0.01 ng/mL [Mass/Vol] 6.8 ng/L Invalid Interpretation Code 0.0 - 51.4 ng/L AO ADM SS Urea nitrogen [Mass/Vol] 14 mg/dL Invalid Interpretation Code 7 - 18 mg/dL AO ADM SS Urea nitrogen/Creatinine [Mass ratio] 20 ratio Invalid Interpretation Code 7 - 27 ratio AO ADM SS WBC (Bld) [#/Vol] 13.6 103/mcL Invalid Interpretation Code 4.6 - 10.8 10^3/mcL AO Workflow SS LABORATORYOrdered By: SYSTEM SYSTEM on 02-09-2022 GFR 101 ml/min/1.73sqm Invalid Interpretation Code AO Chemistry S GFR Non- 84 ml/min/1.73sqm Inval id Interpretation Code AO Chemistry S TROPHSon 02-09-2022 Troponin I High Sensitivity 6.8 ng/L Normal 0.0-51.4 [facility] ([place]) Comment on above: Performed By: #### G FR, [facility], TROPHS ####[id number] [place], [place] [address] LABORATORYOrdered By: Marina Johnson on 02-08-2022 Troponin I.cardiac DL <= 0.01 ng/mL [Mass/Vol] 5.8 ng/L Invalid Interpretation Code 0.0 - 51.4 ng/L AO ADM SS TROPHSon 02-08-2022 Troponin I High Sensitivity 5.8 ng/L Normal 0.0-51.4 [facility] ([place]) Comment on above: Performed By: #### T [facility] ####[id number] [place], [place] [address] XR FLUORO 1-2 HRS TECH TIMEo n 02-08-2022 XR FLUORO 1-2 HRS TECH TIME ORIGINAL Images acquired, not reported on this accession number. Normal [facility] ([place]) Basophil percentageon 2021 Chloride [Moles/Vol] 104 mmol/L 98-107 [facility] Work Phone: Glucose [Mass/Vol] 112 mg/dL 74-106 [facility] Work Phone: Comment on above: Fasting Glucose resu lt from 100 to 125 mg/dL suggests IMPAIRED HOMEOSTASIS per A.D.A. criteria. Potassium [Moles/Vol] 4.0 mmol/L 3.5-5.1 [facility] Work Phone: Sodium [Moles/Vol] 141 mmol/L 136-145 [facility] Work Phone: Laboratory - Chemistry and C hemistry - challengeon 01-27-2022 CO2 [Moles/Vol] 32.0 mmol/L 21.0-32.0 [facility] Work Phone: Urea nitrogen/Creatinine [Mass ratio] 24.3 mg/mg 10-20 [facility] Work Phone: No Panel Informationon 01-27 Estimated GFR (MDRD) Amer 75 mL/min >60 [facility] Work Phone: Comment on above: GFR Calc Estimated GFR (MDRD) Non-Af Amer 62 mL/min >60 [facility] Work Phone: Comment on above: Non- GFR Calc Serum or plasma calcium nguyen urement (mass/volume)on 01-27-2022 Calcium [Mass/Vol] 9.3 mg/dL 8.5-10.1 [facility] Work Phone: Serum or plasma creatinine m easurement (mass/volume)on 01-27-2022 Creatinine [Mass/Vol] 0.95 mg/dL 0.55-1.02 [facility] Work Phone: Comment on above: The validity of the calculated GFR & GFRAA in patients over 70 years has not been determined. Clinical correlation is essential. Serum or plasma urea nitroge n measurement (mass/volume)on 01-27-2022 Urea nitrogen [Mass/Vol] 23 mg/dL 7-18 [facility] Work Phone: Thin prep Papanicolaou smear with manual screeningon 01-27-2022 Thin prep Papanicolaou smear with manual screening 5 5-15 [facility] Work Phone: .Auto Diffon 01-25-2022 Basophil, Absolute 0.0 10 3/mcL Normal 0.0-0.2 [facility] ([place]) Comment on above: Performed By: #### A PTT, PRO, BMP, GFR #### [address] [address] Basophils/100 WBC (Bld) 0.4 % Normal 0.0-2.5 A On license of [facility] ([place]) Comment on above: Performed By: #### A PTT, PRO, BMP, GFR #### [address] [address] Eosinophil, Absolute 0.1 10 3/mcL Normal 0.0-0.4 [facility] ([place]) Comment on above: Performed By: #### A PTT, PRO, BMP, GFR #### [address] [address] Eosinophils/100 WBC (Bld) 0.6 % Normal 0.0-7.0 [facility] ([place]) Comment on above: Performed By: #### A PTT, PRO, BMP, GFR #### [address] [address] Lymphocyte, Absolute 2.5 10 3/mcL Normal 0.8-3.9 [facility] ([place]) Comment on above: Performed By: #### A PTT, PRO, BMP, GFR #### [address] [address] Lymphocytes/100 WBC (Bld) 27.6 % Normal 10.0-50.0 [facility] ([place]) Comment on above: Performed By: #### A PTT, PRO, BMP, GFR #### [address] [address] Monocyte, Absolute 0.6 10 3/mcL Normal 0.2-1.0 [facility] ([place]) Comment on above: Performed By: #### A PTT, PRO, BMP, GFR #### [address] [address] Monocytes/100 WBC (Bld) 6.7 % Normal 1.7-13.0 A On license of [facility] ([place]) Comment on above: Performed By: #### A PTT, PRO, BMP, GFR #### [address] [address] Neutrophils/100 WBC (Bld) 64.7 % Normal 37.0-80.0 [facility] ([place]) Comment on above: Performed By: #### A PTT, PRO, BMP, GFR #### [address] [address] .GFRon 01-25-2022 GFR 52 ml/min/1.73sqm Normal [facility] ([place]) Comment on above: Result Comment: GFR Population mean for , Non- Americans Ages 20-29 = 116 mL/min/1.73 sq.m. Ages 30-39 = 107 mL/min/1.73 sq.m. Ages 40-49 = 99 mL/min/1.73 sq.m. Ages 50-59 = 93 mL/min/1.73 sq.m. Ages 60-69 = 85 mL/min/1.73 sq.m. Ages 70+ = 75 mL/min/1.73 sq.m. Chronic Kidney Disease: Less than 60 mL/min/1.73 square meters End Stage Renal Disease: Less than 15 mL/min/1.73 square meters Performed By: #### A PTT, PRO, BMP, GFR #### [address] [address] GFR Non- 43 ml/min/1.73sqm Normal [facility] ([place]) Comment on above: Result Comment: GFR Population mean for , Non- Americans Ages 20-29 = 116 mL/min/1.73 sq.m. Ages 30-39 = 107 mL/min/1.73 sq.m. Ages 40-49 = 99 mL/min/1.73 sq.m. Ages 50-59 = 93 mL/min/1.73 sq.m. Ages 60-69 = 85 mL/min/1.73 sq.m. Ages 70+ = 75 mL/min/1.73 sq.m. Chronic Kidney Disease: Less than 60 mL/min/1.73 square meters End Stage Renal Disease: Less than 15 mL/min/1.73 square meters Performed By: #### A PTT, PRO, BMP, GFR #### [address] [address] .NEUABSon 01-25-2022 Neutrophil, Absolute 5.8 10 3/mcL Normal 2.9-6.2 [facility] ([place]) Comment on above: Performed By: #### A PTT, PRO, BMP, GFR #### [address] [address] APTTon 01-25-2022 aPTT Coag (Bld) [Time] 29.9 s Normal 24.1-34.9 [facility] ([place]) Comment on above: Result Comment: For Heparin anticoagulation therapy, the recommended therapeutic range is: 46.2-75.9 seconds (1.5 - 2.5 the normal plasma mean). Patients on heparin therapy may have an extreme result. Performed By: #### A PTT, PRO, BMP, GFR #### [address] [address] Heparin dose (APTT) Unknown Normal [facility] ([place]) Comment on above: Performed By: #### A PTT, PRO, BMP, GFR #### [address] [address] BMPon 01-25-2022 BUN/Creatinine Ratio 22 ratio Normal 7-27 [facility]) Comment on above: Performed By: #### A PTT, PRO, BMP, GFR #### [address] [address] Calcium [Mass/Vol] 10.2 mg/dL Normal 8.4-10.2 [facility] ([place]) Comment on above: Performed By: #### A PTT, PRO, BMP, GFR #### [address] [address] Chloride [Moles/Vol] 103 mmol/L Normal 98-107 [facility] ([place]) Comment on above: Performed By: #### A PTT, PRO, BMP, GFR #### [address] [address] CO2 [Moles/Vol] 26 mmol/L Normal 23-31 [facility] ([place]) Comment on above: Performed By: #### A PTT, PRO, BMP, GFR #### [address] [address] Creatinine [Mass/Vol] 1.23 mg/dL High 0.55-1.02 [facility] ([place]) Comment on above: Performed By: #### A PTT, PRO, BMP, GFR #### [address] [address] Electrolyte Balance 12.0 mEq/L Normal 4.0-15.0 [facility] ([place]) Comment on above: Performed By: #### A PTT, PRO, BMP, GFR #### [address] [address] Glucose [Mass/Vol] 110 mg/dL Normal 83-110 [facility] ([place] Comment on above: Performed By: #### A PTT, PRO, BMP, GFR #### [address] [address] Potassium [Moles/Vol] 4.3 mmol/L Normal 3.5-5.1 [facility] ([place]) Comment on above: Performed By: #### A PTT, PRO, BMP, GFR #### [address] [address] Sodium [Moles/Vol] 141 mmol/L Normal 136-145 [facility] ([place] Comment on above: Performed By: #### A PTT, PRO, BMP, GFR #### [address] [address] Urea nitrogen [Mass/Vol] 27 mg/dL High 7-18 [facility] ([place]) Comment on above: Performed By: #### A PTT, PRO, BMP, GFR #### [address] [place] [address] CBCon 01-25-2022 Erythrocyte distribution width (RBC) [Ratio] 13.8 % Normal 11.5-14.5 [facility] ([place]) Comment on above: Order Comment: Pre-A dmission Testing Performed By: #### A PTT, PRO, BMP, GFR #### [address] [address] Hematocrit (Bld) [Volume fraction] 42.5 % Normal 37.0-47.0 [facility] ([place]) Comment on above: Order Comment: Pre-A dmission Testing Performed By: #### A PTT, PRO, BMP, GFR #### [place] [address] Hgb 14.6 G/dL Normal 12.0-16.0 [facility] ([place]) Comment on above: Order Comment: Pre-A dmission Testing Performed By: #### A PTT, PRO, BMP, GFR #### [address] [address] MCH (RBC) [Entitic mass] 32.1 pg High 27.0-31.2 [facility] ([place]) Comment on above: Order Comment: Pre-A dmission Testing Performed By: #### A PTT, PRO, BMP, GFR #### [address] [address] MCHC 34.2 G/dL Normal 33.0-37.0 [facility] ([place] Comment on above: Order Comment: Pre-A dmission Testing Performed By: #### A PTT, PRO, BMP, GFR #### [address] [address] MCV (RBC) [Entitic vol] 93.8 fL Normal 80.0-94.0 A On license of [facility] ([place]) Comment on above: Order Comment: Pre-A dmission Testing Performed By: #### A PTT, PRO, BMP, GFR #### [address] [address] Platelet 354 10 3/mcL Normal 130-400 [facility] ([place]) Comment on above: Order Comment: Pre-A dmission Testing Performed By: #### A PTT, PRO, BMP, GFR #### [address] [address] Platelet mean volume (Bld) [Entitic vol] 8.1 fL Normal 7.4-10.4 [facility] ([place]) Comment on above: Order Comment: Pre-A dmission Testing Performed By: #### A PTT, PRO, BMP, GFR #### [place] [address] RBC 4.54 10 6/mcL Normal 4.20-5.40 [facility] ([place]) Comment on above: Order Comment: Pre-A dmission Testing Performed By: #### A PTT, PRO, BMP, GFR #### [address] [address] WBC 8.9 10 3/mcL Normal 4.6-10.8 [facility] ([place]) Comment on above: Order Comment: Pre-A dmission Testing Performed By: #### A PTT, PRO, BMP, GFR #### [address] [address] LABORATORYOrdered By: Marina Johnson on 01-25-2022 aPTT Coag (Bld) [Time] 29.9 s Invalid Interpretation Code 24.1 - 34.9 seconds AO Coag SS Heparin dose (APTT) Unknown (01/25/22 12:44 PM) Invalid Interpretation Code AO Coag SS INR Coag (PPP) [Relative time] 1.0 {INR} Invalid Interpretation Code 0.9 - 1.2 ratio AO Coag SS PT Coag (PPP) [Time] 11.5 s Invalid Interpretation Code 9.7 - 13.9 seconds AO Coag SS LABORATORYOrdered By: Sobia Sena on 01-25-2022 Basophil, Absolute 0.0 103/mcL Invalid Interpretation Code 0.0 - 0.2 10^3/mcL AO Workflow SS Basophils/100 WBC (Bld) 0.4 % Invalid Interpretation Code 0.0 - 2.5 % AO Workflow SS Eosinophil, Absolute 0.1 103/mcL Invalid Interpretation Code 0.0 - 0.4 10^3/mcL AO Workflow SS Eosinophils/100 WBC (Bld) 0.6 % Invalid Interpretation Code 0.0 - 7.0 % AO Workflow SS Erythrocyte distribution width (RBC) [Ratio] 13.8 % Invalid Interpretation Code 11.5 - 14.5 % AO Workflow SS Hematocrit (Bld) [Volume fraction] 42.5 % Invalid Interpretation Code 37.0 - 47.0 % AO Workflow SS Hemoglobin (Bld) [Mass/Vol] 14.6 G/dL Invalid Interpretation Code 12.0 - 16.0 G/dL AO Workflow SS Lymphocyte, Absolute 2.5 103/mcL Invalid Interpretation Code 0.8 - 3.9 10^3/mcL AO Workflow SS Lymphocytes/100 WBC (Bld) 27.6 % Invalid Interpretation Code 10.0 - 50.0 % AO Workflow SS MCH (RBC) [Entitic mass] 32.1 pg Invalid Interpretation Code 27.0 - 31.2 pg AO Workflow SS MCHC 34.2 G/dL Invalid Interpretation Code 33.0 - 37.0 G/dL AO Workflow SS MCV (RBC) [Entitic vol] 93.8 fL Invalid Interpretation Code 80.0 - 94.0 fL AO Workflow SS Monocyte, Absolute 0.6 103/mcL Invalid Interpretation Code 0.2 - 1.0 10^3/mcL AO Workflow SS Monocytes/100 WBC (Bld) 6.7 % Invalid Interpretation Code 1.7 - 13.0 % AO Workflow SS Neutrophil, Absolute 5.8 103/mcL Invalid Interpretation Code 2.9 - 6.2 10^3/mcL AO Workflow SS Neutrophils/100 WBC (Bld) 64.7 % Invalid Interpretation Code 37.0 - 80.0 % AO Workflow SS Platelet mean volume (Bld) [Entitic vol] 8.1 fL Invalid Interpretation Code 7.4 - 10.4 fL AO Workflow SS Platelets (Bld) [#/Vol] 354 103/mcL Invalid Interpretation Code 130 - 400 10^3/mcL AO Workflow SS RBC (Bld) [#/Vol] 4.54 106/mcL Invalid Interpretation Code 4.20 - 5.40 10^6/mcL AO Workflow SS WBC (Bld) [#/Vol] 8.9 103/mcL Invalid Interpretation Code 4.6 - 10.8 10^3/mcL AO Workflow SS LABORATORYOrdered By: Roxann High on 01-25-2022 Calcium [Mass/Vol] 10.2 mg/dL Invalid Interpretation Code 8.4 - 10.2 mg/dL AO ADM SS Chloride [Moles/Vol] 103 mmol/L Invalid Interpretation Code 98 - 107 mmol/L AO ADM SS CO2 [Moles/Vol] 26 mmol/L Invalid Interpretation Code 23 - 31 mmol/L AO ADM SS Creatinine [Mass/Vol] 1.23 mg/dL Invalid Interpretation Code 0.55 - 1.02 mg/dL AO ADM SS Electrolyte Balance 12.0 mEq/L Invalid Interpretation Code 4.0 - 15.0 mEq/L AO ADM SS Glucose [Mass/Vol] 110 mg/dL Invalid Interpretation Code 83 - 110 mg/dL AO ADM SS Potassium [Moles/Vol] 4.3 mmol/L Invalid Interpretation Code 3.5 - 5.1 mmol/L AO ADM SS Sodium [Moles/Vol] 141 mmol/L Invalid Interpretation Code 136 - 145 mmol/L AO ADM SS Urea nitrogen [Mass/Vol] 27 mg/dL Invalid Interpretation Code 7 - 18 mg/dL AO ADM SS Urea nitrogen/Creatinine [Mass ratio] 22 ratio Invalid Interpretation Code 7 - 27 ratio AO ADM SS LABORATORYOrdered By: SYSTEM SYSTEM on 01-25-2022 GFR 52 ml/min/1.73sqm Invalid Interpretation Code AO Chemistry S GFR Non- 43 ml/min/1.73sqm Inval id Interpretation Code AO Chemistry S PROon 01-25-2022 INR Coag (PPP) [Relative time] 1.0 {INR} Normal 0.9-1.2 [facility] ([place]) Comment on above: Result Comment: Reddy dard Dose 2.0 - 3.0 High Dose 2.5 - 3.5 The recommended therapeutic range for oral anticoagulant therapy is: LOW RISK: Prophylaxis of venous thrombosis INR: 2.0 - 3.0 Treatment of pulmonary embolism 2.0 - 3.0 Prevention of systemic embolism 2.0 - 3.0 HIGH RISK: Mechanical prosthetic valves 2.5 - 3.5 Performed By: #### A PTT, PRO, BMP, GFR #### [id number] [place], [place] [address] PT Coag (PPP) [Time] 11.5 s Normal 9.7-13.9 [facility] ([place]) Comment on above: Performed By: #### A PTT, PRO, BMP, GFR #### [address] [place], [place] [address] Absolute lymphocyte counton 01-19-2022 Lymphocytes Auto (Unsp spec) [#/Vol] 2.25 10*3/uL 0.83-4.51 [facility] Work Phone: Basophil percentageon 2021 Basophils/100 WBC (Bld) 0.1 % 0-1 [facility] Work Phone: Bilirubin [Mass/Vol] 0.50 mg/dL 0.20-1.00 [facility] Work Phone: Comment on above: For patients on eltr ombopag therapy, use of Dimension [place] TBIL is not recommended. Chloride [Moles/Vol] 106 mmol/L 98-107 [facility] Work Phone: Eosinophils/100 WBC (Bld) 0.9 % 0-5 [facility] Work Phone: Glucose [Mass/Vol] 97 mg/dL 74-106 [facility] Work Phone: Neutrophils (Bld) [#/Vol] 3.9 10*3/uL 2.0-7.7 [facility] Work Phone: Neutrophils/100 WBC (Bld) 56.6 % 47-70 [facility] Work Phone: Potassium [Moles/Vol] 3.3 mmol/L 3.5-5.1 [facility] Work Phone: Protein [Mass/Vol] 7.1 g/dL 6.4-8.2 [facility] Work Phone: Sodium [Moles/Vol] 143 mmol/L 136-145 [facility] Work Phone: WBC (Bld) [#/Vol] 6.8 10*3/uL 4.4-11.0 [facility] Work Phone: Blood erythrocytes count (nu mber/volume)on 01-19-2022 RBC (Bld) [#/Vol] 4.30 10*6/uL 4.2-5.4 [facility]: Blood hemoglobin measurement (mass/volume)on 01-19-2022 Hemoglobin (Bld) [Mass/Vol] 13.6 g/dL 12.0-15.0 [facility] Work Phone: Blood lymphocytes/100 leukoc yteson 01-19-2022 Lymphocytes/100 WBC (Bld) 32.9 % 19-41 [facility] Work Phone: Blood monocytes/100 leukocyt eson 01-19-2022 Monocytes/100 WBC (Bld) 9.1 % 0-10 [facility] Work Phone: Blood platelet mean volumeon 01-19-2022 Platelet mean volume (Bld) [Entitic vol] 10.1 fL 6.2-12.0 [facility] Work Phone: Determination of erythrocyte mean corpuscular volume (MCV)on 01-19-2022 MCV (RBC) [Entitic vol] 95.1 fL 81-99 [facility] Work Phone: Hematocrit Auto (Bld) [Volum e fraction]on 01-19-2022 Hematocrit (Bld) [Volume fraction] 40.9 % 37-47 [facility] Work Phone: Laboratory - Chemistry and C hemistry - challengeon 01-19-2022 ALP [Catalytic activity/Vol] 50 U/L 45-117 [facility] Work Phone: ALT [Catalytic activity/Vol] 30 U/L 13-56 [facility] Work Phone: CO2 [Moles/Vol] 29.0 mmol/L 21.0-32.0 [facility] Work Phone: Globulin (S) [Mass/Vol] 3.2 g/dL 2.2-4.2 [facility] Work Phone: Urea nitrogen/Creatinine [Mass ratio] 24.5 mg/mg 10-20 [facility] Work Phone: Laboratory - Hematology and Cell countson 01-19-2022 Erythrocyte distribution width (RBC) [Entitic vol] 44.6 fL 35.1-43.9 [facility] Work Phone: Erythrocyte distribution width (RBC) [Ratio] 12.8 % 11.6-14.6 [facility] Work Phone: Immature granulocytes/100 WBC (Bld) 0.400 % 0.0-0.9 [facility] Work Phone: Comment on above: IG% - Immature Granu locytes (promyelocytes, myelocytes and metamyelocytes) > 1% indicates that a LEFT SHIFT is Present. MCH (RBC) [Entitic mass] 31.6 pg 27.0-32.0 [facility] Work Phone: Nucleated RBC/100 WBC (Bld) [Ratio] 0 % 0-5 [facility] Work Phone: MCHC Auto (RBC) [Mass/Vol]on 01-19-2022 MCHC (RBC) [Mass/Vol] 33.3 g/dL 32-36 [facility] Work Phone: No Panel Informationon 01-19 Estimated GFR (MDRD) Amer 107 mL/min >60 [facility] Work Phone: Comment on above: GFR Calc Estimated GFR (MDRD) Non-Af Amer 88 mL/min >60 [facility] Work Phone: Comment on above: Non- GFR Calc Thyroid Stimulating Hormone (TSH) 0.94 uIU/mL 0.358-3.74 [facility] Work Phone: Vitamin D 25-Hydroxy 30.0 ng/mL [facility] Work Phone: Comment on above: Vitamin D 25(OH) Sta tus Range Deficiency <20 ng/mL (50nmol/L) Insufficiency 20 - 30 ng/mL (50 - 75 nmol/L) Sufficiency 30 - 100 ng/mL (75 - 250 nmol/L) Toxicity >100 ng/mL (>250 nmol/L) Platelets bldon 01-19-2022 Platelets (Bld) [#/Vol] 356 10*3/uL 150-450 [facility] Work Phone: Serum or plasma albumin nguyen urement (mass/volume)on 01-19-2022 Albumin [Mass/Vol] 3.9 g/dL 3.2-5.0 [facility] Work Phone: Serum or plasma albumin/glob ulin mass ratioon 01-19-2022 Albumin/Globulin [Mass ratio] 1.2 {ratio} 0.9-2.4 [facility] Work Phone: Serum or plasma calcium nguyen urement (mass/volume)on 01-19-2022 Calcium [Mass/Vol] 9.1 mg/dL 8.5-10.1 [facility] Work Phone: Serum or plasma creatinine m easurement (mass/volume)on 01-19-2022 Creatinine [Mass/Vol] 0.70 mg/dL 0.55-1.02 [facility] Work Phone: Comment on above: The validity of the calculated GFR & GFRAA in patients over 70 years has not been determined. Clinical correlation is essential. Serum or plasma urea nitroge n measurement (mass/volume)on 01-19-2022 Urea nitrogen [Mass/Vol] 17 mg/dL 7-18 [facility] Work Phone: Thin prep Papanicolaou smear with manual screeningon 01-19-2022 Thin prep Papanicolaou smear with manual screening 14 U/L 15-37 [facility] Work Phone: Thin prep Papanicolaou smear with manual screening 8 5-15 [facility] Work Phone: Absolute lymphocyte counton 12-21-2021 Lymphocytes Auto (Unsp spec) [#/Vol] 2.02 10*3/uL 0.83-4.51 [facility] Work Phone: Basophil percentageon 2021 Basophils/100 WBC (Bld) 0.1 % 0-1 [facility] Work Phone: [phone] Chloride [Moles/Vol] 107 mmol/L 98-107 [facility] Work Phone: [phone] Eosinophils/100 WBC (Bld) 0.1 % 0-5 [facility] Work Phone: [phone] Glucose [Mass/Vol] 127 mg/dL 74-106 [facility] Work Phone: Comment on above: Fasting Glucose resu lt greater than or equal to 126 mg/dL suggests DIABETES MELLITUS per A.D.A. criteria. Neutrophils (Bld) [#/Vol] 6.8 10*3/uL 2.0-7.7 [facility] Work Phone: [phone] Neutrophils/100 WBC (Bld) 72.1 % 47-70 [facility] Work Phone: [phone] Potassium [Moles/Vol] 3.6 mmol/L 3.5-5.1 [facility] Work Phone: Sodium [Moles/Vol] 142 mmol/L 136-145 [facility] Work Phone: [phone] WBC (Bld) [#/Vol] 9.5 10*3/uL 4.4-11.0 [facility] Work Phone: Blood erythrocytes count (nu mber/volume)on 12-21-2021 RBC (Bld) [#/Vol] 4.53 10*6/uL 4.2-5.4 [facility] Work Phone: [phone] Blood hemoglobin measurement (mass/volume)on 12-21-2021 Hemoglobin (Bld) [Mass/Vol] 14.3 g/dL 12.0-15.0 [facility] Work Phone: [phone] Blood lymphocytes/100 leukoc yteson 12-21-2021 Lymphocytes/100 WBC (Bld) 21.4 % 19-41 [facility] Work Phone: Blood monocytes/100 leukocyt eson 12-21-2021 Monocytes/100 WBC (Bld) 6.0 % 0-10 [facility] Work Phone: [phone] Blood platelet mean volumeon 12-21-2021 Platelet mean volume (Bld) [Entitic vol] 10.4 fL 6.2-12.0 [facility] Work Phone: Determination of erythrocyte mean corpuscular volume (MCV)on 12-21-2021 MCV (RBC) [Entitic vol] 94.9 fL 81-99 [facility] Work Phone: Hematocrit Auto (Bld) [Volum e fraction]on 12-21-2021 Hematocrit (Bld) [Volume fraction] 43.0 % 37-47 [facility] Work Phone: INR in Blood by Coagulation assayon 12-21-2021 INR Coag (Bld) [Relative time] 1.0 {INR} [facility] Work Phone: Laboratory - Chemistry and C hemistry - challengeon 12-21-2021 CO2 [Moles/Vol] 28.0 mmol/L 21.0-32.0 [facility] Work Phone: Urea nitrogen/Creatinine [Mass ratio] 21.9 mg/mg 10-20 [facility] Work Phone: Laboratory - Coagulationon 1 PT Coag (PPP) [Time] 13.1 s 11.7-14.9 [facility] Work Phone: [phone] Laboratory - Hematology and Cell countson 12-21-2021 Erythrocyte distribution width (RBC) [Entitic vol] 43.6 fL 35.1-43.9 [facility] Work Phone: Erythrocyte distribution width (RBC) [Ratio] 12.7 % 11.6-14.6 [facility] Work Phone: Immature granulocytes/100 WBC (Bld) 0.300 % 0.0-0.9 [facility] Work Phone: Comment on above: IG% - Immature Granu locytes (promyelocytes, myelocytes and metamyelocytes) > 1% indicates that a LEFT SHIFT is Present. MCH (RBC) [Entitic mass] 31.6 pg 27.0-32.0 [facility] Work Phone: Nucleated RBC/100 WBC (Bld) [Ratio] 0 % 0-5 [facility] Work Phone: MCHC Auto (RBC) [Mass/Vol]on 12-21-2021 MCHC (RBC) [Mass/Vol] 33.3 g/dL 32-36 [facility] Work Phone: No Panel Informationon 12-21 Estimated GFR (MDRD) Amer 66 mL/min >60 [facility] Work Phone: Comment on above: GFR Calc Estimated GFR (MDRD) Non-Af Amer 55 mL/min >60 [facility] Work Phone: Comment on above: Non- GFR Calc Platelets bldon 12-21-2021 Platelets (Bld) [#/Vol] 412 10*3/uL 150-450 [facility] Work Phone: Serum or plasma calcium nguyen urement (mass/volume)on 12-21-2021 Calcium [Mass/Vol] 9.0 mg/dL 8.5-10.1 [facility] Work Phone: Serum or plasma creatinine m easurement (mass/volume)on 12-21-2021 Creatinine [Mass/Vol] 1.05 mg/dL 0.55-1.02 [facility] Work Phone: Comment on above: The validity of the calculated GFR & GFRAA in patients over 70 years has not been determined. Clinical correlation is essential. Serum or plasma urea nitroge n measurement (mass/volume)on 12-21-2021 Urea nitrogen [Mass/Vol] 23 mg/dL 7-18 [facility] Work Phone: Thin prep Papanicolaou smear with manual screeningon 12-21-2021 Thin prep Papanicolaou smear with manual screening 7 5-15 [facility] Work Phone: MRI Cervical Spine w/oon MRI Cervical Spine w/o HISTORY: Neck dianne n. Left shoulder pain. Left-sided back pain. Left arm pain. Burning and weakness. TECHNIQUE: Routine cervical spine MR protocol without gadolinium. COMPARISON: None. RESULT: CERVICAL: Counting reference: Craniocervical junction. Anatomic Variants: None. Alignment: Straightening of the cervical lordosis. Craniocervical junction: Craniocervical junction is normal. Cord: The cervical spinal cord is grossly within normal limits of signal intensity and morphology. Bone marrow signal/fracture: No evidence for acute fracture. No pathologic marrow infiltration. Cervical soft tissues: Partially imaged polyp or mucous retention cyst within the right maxillary sinus. Heterogeneous thyroid with multiple cystic nodules with the largest on the right measuring around 3.0 cm. Recommend correlation with thyroid ultrasound, if not already performed. C2-C3: Disc bulge and endplate osteophytes without significant canal or foraminal narrowing. C3-C4: Broad-based disc bulge. Mild canal narrowing without significant foraminal narrowing. C4-C5: Broad-based disc bulge. Endplate osteophytes. Facet/uncovertebral degenerative changes. Mild canal narrowing without significant foraminal narrowing. C5-C6: Broad-based disc bulge. Endplate degenerative signal. Endplate osteophytes. Facet/uncovertebral degenerative changes. Moderate canal narrowing with moderate bilateral foraminal narrowing. C6-C7: Broad-based disc bulge. Endplate osteophytes. Superimposed left foraminal zone disc protrusion. Facet/uncovertebral degenerative changes. Moderate canal narrowing and moderate bilateral foraminal narrowing. C7-T1: Facet degenerative changes without definite canal or foraminal narrowing. Upper thoracic spine: Visualized upper thoracic canal and foramina without significant narrowing. IMPRESSION: Multilevel degenerative changes within the cervical spine, worst at the C5-C6 and C6-C7 levels, with high grade canal and bilateral foraminal narrowing as discussed. Left foraminal zone disc protrusion at C6-C7 contributes to moderate canal narrowing. Report reported and signed by Barry Mead on 11/24/2021 1619 Normal [facility] - Chemistry and C hemistry - challengeon 11-18-2021 Myoglobin [Mass/Vol] 61 ng/mL 25-58 [facility] Work Phone: Comment on above: Performed at: [address] [id number] Director: Roman Ling PhD, Phone: [phone] Natriuretic peptide B (Bld) [Mass/Vol] 50.5 pg/mL 0-100 [facility] Work Phone: No Panel Informationon 11-18 Troponin I High Sensitivity 6 pg/mL 3.0-54.0 [facility] Work Phone: Comment on above: Please Note: New Kari t Units and Gender Specific Reference Ranges. For more information see Policy Stat Procedure [place] High Sensitivity Troponin (TNIH) and attachments. Absolute lymphocyte counton 07-28-2021 Lymphocytes Auto (Unsp spec) [#/Vol] 2.51 10*3/uL 0.83-4.51 [facility] Work Phone: Basophil percentageon 2021 Basophils/100 WBC (Bld) 0.1 % 0-1 [facility] Work Phone: Bilirubin [Mass/Vol] 0.40 mg/dL 0.20-1.00 [facility] Work Phone: Comment on above: For patients on eltr ombopag therapy, use of Dimension [place] TBIL is not recommended. Chloride [Moles/Vol] 104 mmol/L 98-107 [facility] Work Phone: Eosinophils/100 WBC (Bld) 1.6 % 0-5 [facility] Work Phone: Glucose [Mass/Vol] 127 mg/dL 74-106 [facility] Work Phone: Comment on above: Fasting Glucose resu lt greater than or equal to 126 mg/dL suggests DIABETES MELLITUS per A.D.A. criteria. Neutrophils (Bld) [#/Vol] 4.9 10*3/uL 2.0-7.7 [facility] Work Phone: Neutrophils/100 WBC (Bld) 59.7 % 47-70 [facility] Work Phone: Potassium [Moles/Vol] 4.1 mmol/L 3.5-5.1 [facility] Work Phone: Protein [Mass/Vol] 7.9 g/dL 6.4-8.2 [facility]: [phone] Sodium [Moles/Vol] 139 mmol/L 136-145 [facility] Work Phone: WBC (Bld) [#/Vol] 8.3 10*3/uL 4.4-11.0 [facility] Work Phone: Blood erythrocytes count (nu mber/volume)on 07-28-2021 RBC (Bld) [#/Vol] 5.07 10*6/uL 4.2-5.4 [facility] Work Phone: Blood hemoglobin measurement (mass/volume)on 07-28-2021 Hemoglobin (Bld) [Mass/Vol] 16.1 g/dL 12.0-15.0 [facility] Work Phone: Blood lymphocytes/100 leukoc yteson 07-28-2021 Lymphocytes/100 WBC (Bld) 30.4 % 19-41 [facility] Work Phone: Blood monocytes/100 leukocyt eson 07-28-2021 Monocytes/100 WBC (Bld) 7.8 % 0-10 [facility] Work Phone: Blood platelet mean volumeon 07-28-2021 Platelet mean volume (Bld) [Entitic vol] 10.1 fL 6.2-12.0 [facility] Work Phone: Determination of erythrocyte mean corpuscular volume (MCV)on 07-28-2021 MCV (RBC) [Entitic vol] 95.1 fL 81-99 [facility] Work Phone: Hematocrit Auto (Bld) [Volum e fraction]on 07-28-2021 Hematocrit (Bld) [Volume fraction] 48.2 % 37-47 [facility] Work Phone: Laboratory - Chemistry and C hemistry - challengeon 07-28-2021 ALP [Catalytic activity/Vol] 61 U/L 45-117 [facility] Work Phone: [phone] ALT [Catalytic activity/Vol] 29 U/L 13-56 [facility] Work Phone: [phone] CO2 [Moles/Vol] 25.0 mmol/L 21.0-32.0 [facility] Work Phone: [phone] Globulin (S) [Mass/Vol] 3.7 g/dL 2.2-4.2 [facility] Work Phone: [phone] Urea nitrogen/Creatinine [Mass ratio] 22.0 mg/mg 10-20 [facility] Work Phone: Laboratory - Hematology and Cell countson 07-28-2021 Erythrocyte distribution width (RBC) [Entitic vol] 42.8 fL 35.1-43.9 [facility] Work Phone: [phone] Erythrocyte distribution width (RBC) [Ratio] 12.4 % 11.6-14.6 [facility] Work Phone: Immature granulocytes/100 WBC (Bld) 0.400 % 0.0-0.9 [facility] Work Phone: Comment on above: IG% - Immature Granu locytes (promyelocytes, myelocytes and metamyelocytes) > 1% indicates that a LEFT SHIFT is Present. MCH (RBC) [Entitic mass] 31.8 pg 27.0-32.0 [facility] Work Phone: Nucleated RBC/100 WBC (Bld) [Ratio] 0 % 0-5 [facility] Work Phone: [phone] MCHC Auto (RBC) [Mass/Vol]on 07-28-2021 MCHC (RBC) [Mass/Vol] 33.4 g/dL 32-36 [facility] Work Phone: No Panel Informationon 07-28 Estimated GFR (MDRD) Amer 95 mL/min >60 [facility] Work Phone: Comment on above: GFR Calc Estimated GFR (MDRD) Non-Af Amer 78 mL/min >60 [facility] Work Phone: Comment on above: Non- GFR Calc Thyroid Stimulating Hormone (TSH) 1.52 uIU/mL 0.358-3.74 [facility] Work Phone: Vitamin D 25-Hydroxy 25.7 ng/mL [facility] Work Phone: Comment on above: Vitamin D 25(OH) Sta tus Range Deficiency <20 ng/mL (50nmol/L) Insufficiency 20 - 30 ng/mL (50 - 75 nmol/L) Sufficiency 30 - 100 ng/mL (75 - 250 nmol/L) Toxicity >100 ng/mL (>250 nmol/L) Platelets bldon 07-28-2021 Platelets (Bld) [#/Vol] 421 10*3/uL 150-450 [facility] Work Phone: Serum or plasma albumin nguyen urement (mass/volume)on 07-28-2021 Albumin [Mass/Vol] 4.2 g/dL 3.2-5.0 [facility] Work Phone: Serum or plasma albumin/glob ulin mass ratioon 07-28-2021 Albumin/Globulin [Mass ratio] 1.1 {ratio} 0.9-2.4 [facility] Work Phone: Serum or plasma calcium nguyen urement (mass/volume)on 07-28-2021 Calcium [Mass/Vol] 9.5 mg/dL 8.5-10.1 [facility] Work Phone: Serum or plasma creatinine m easurement (mass/volume)on 07-28-2021 Creatinine [Mass/Vol] 0.77 mg/dL 0.55-1.02 [facility] Work Phone: Comment on above: The validity of the calculated GFR & GFRAA in patients over 70 years has not been determined. Clinical correlation is essential. Serum or plasma urea nitroge n measurement (mass/volume)on 07-28-2021 Urea nitrogen [Mass/Vol] 17 mg/dL 7-18 [facility] Work Phone: Thin prep Papanicolaou smear with manual screeningon 07-28-2021 Thin prep Papanicolaou smear with manual screening 13 U/L 15-37 [facility] Work Phone: Thin prep Papanicolaou smear with manual screening 10 5-15 [facility] Work Phone: Bacteria identified Anaer cx Nom (Unsp spec)on 05-16-2021 Anaerobic Culture Anaerobic cocci [facility] Work Phone: Bacteria identified Cx Nom ( Wound)on 05-16-2021 Wound Culture Serratia marcescens [facility] Work Phone: Gram stain for investigation of transfusion reactionon 05-16-2021 Microscopic observation Gram stain Nom (Unsp spec) [facility] Work Phone: Basophil percentageon 2021 Chloride [Moles/Vol] 103 mmol/L 98-107 [facility] Work Phone: Glucose [Mass/Vol] 112 mg/dL 74-106 [facility] Work Phone: Comment on above: Fasting Glucose resu lt from 100 to 125 mg/dL suggests IMPAIRED HOMEOSTASIS per A.D.A. criteria. Potassium [Moles/Vol] 3.4 mmol/L 3.5-5.1 [facility] Work Phone: Sodium [Moles/Vol] 139 mmol/L 136-145 [facility] Work Phone: Laboratory - Chemistry and C hemistry - challengeon 05-09-2021 CO2 [Moles/Vol] 30.0 mmol/L 21.0-32.0 [facility] Work Phone: Urea nitrogen/Creatinine [Mass ratio] 28.8 mg/mg 10-20 [facility] Work Phone: No Panel Informationon 05-09 Estimated GFR (MDRD) Amer 83 mL/min >60 [facility] Work Phone: Comment on above: GFR Calc Estimated GFR (MDRD) Non-Af Amer 68 mL/min >60 [facility] Work Phone: Comment on above: Non- GFR Calc Serum or plasma calcium nguyen urement (mass/volume)on 05-09-2021 Calcium [Mass/Vol] 9.4 mg/dL 8.5-10.1 [facility] Work Phone: Serum or plasma creatinine m easurement (mass/volume)on 05-09-2021 Creatinine [Mass/Vol] 0.87 mg/dL 0.55-1.02 [facility] Work Phone: Comment on above: The validity of the calculated GFR & GFRAA in patients over 70 years has not been determined. Clinical correlation is essential. Serum or plasma urea nitroge n measurement (mass/volume)on 05-09-2021 Urea nitrogen [Mass/Vol] 25 mg/dL 7-18 [facility] Work Phone: Thin prep Papanicolaou smear with manual screeningon 05-09-2021 Thin prep Papanicolaou smear with manual screening 6 5-15 [facility] Work Phone: Laboratory - Microbiology an d Antimicrobial susceptibilityon 03-23-2021 SARS-CoV-2 (COVID-19) RNA SONNY+probe Ql (Unsp spec) Not detected Not Detect [facility] Work Phone: Comment on above: Normal Reference Ran ge: Not DetectedMethod:(RT-PCR) real-time reverse transcriptase PCRLuminex BRIA Instrument*The Food and Drug Administration (FDA) has issued an Emergency Use Authorization (EAU) for the BRIA SARS-CoV-2 Assay for the rapid detection of the virus that causes COVID-19. This test has been validated, but the FDAs independent review of this validation is pending.*Negative results do not preclude infection and should not be used as the sole basis for treatment or patient management. Optimum specimen types and timing for peak viral levels during infections caused by SARS-CoV-2 have not been determined. Collection of multiple specimens from the same patient may be necessary to detect the virus. The possibility of a false negative result should be considered if the patient has clinical presentation or has had recent exposure. No Panel Informationon 03-23 Influenza Types A,B Direct FA (KAMLESH) [facility] Work Phone: [phone] Absolute lymphocyte counton 03-17-2021 Lymphocytes Auto (Unsp spec) [#/Vol] 2.01 10*3/uL 0.83-4.51 [facility] Work Phone: [phone] Basophil percentageon 2021 Basophils/100 WBC (Bld) 0.4 % 0-1 [facility] Work Phone: [phone] Bilirubin [Mass/Vol] 0.30 mg/dL 0.20-1.00 [facility] Work Phone: Comment on above: For patients on eltr ombopag therapy, use of Dimension [place] TBIL is not recommended. Chloride [Moles/Vol] 102 mmol/L 98-107 [facility] Work Phone: [phone] Eosinophils/100 WBC (Bld) 2.1 % 0-5 [facility] Work Phone: [phone] Glucose [Mass/Vol] 98 mg/dL 74-106 [facility] Work Phone: Neutrophils (Bld) [#/Vol] 4.2 10*3/uL 2.0-7.7 [facility] Work Phone: Neutrophils/100 WBC (Bld) 59.6 % 47-70 [facility] Work Phone: [phone] Potassium [Moles/Vol] 3.2 mmol/L 3.5-5.1 [facility] Work Phone: [phone] Protein [Mass/Vol] 7.5 g/dL 6.4-8.2 [facility] Work Phone: Sodium [Moles/Vol] 141 mmol/L 136-145 [facility] Work Phone: WBC (Bld) [#/Vol] 7.0 10*3/uL 4.4-11.0 [facility] Work Phone: Blood erythrocytes count (nu mber/volume)on 03-17-2021 RBC (Bld) [#/Vol] 4.27 10*6/uL 4.2-5.4 [facility] Work Phone: Blood hemoglobin measurement (mass/volume)on 03-17-2021 Hemoglobin (Bld) [Mass/Vol] 13.3 g/dL 12.0-15.0 [facility] Work Phone: Blood lymphocytes/100 leukoc yteson 03-17-2021 Lymphocytes/100 WBC (Bld) 28.8 % 19-41 [facility] Work Phone: Blood monocytes/100 leukocyt eson 03-17-2021 Monocytes/100 WBC (Bld) 8.7 % 0-10 [facility] Work Phone: Blood platelet mean volumeon 03-17-2021 Platelet mean volume (Bld) [Entitic vol] 9.8 fL 6.2-12.0 [facility] Work Phone: Determination of erythrocyte mean corpuscular volume (MCV)on 03-17-2021 MCV (RBC) [Entitic vol] 92.7 fL 81-99 [facility] Work Phone: Hematocrit Auto (Bld) [Volum e fraction]on 03-17-2021 Hematocrit (Bld) [Volume fraction] 39.6 % 37-47 [facility] Work Phone: Laboratory - Chemistry and C hemistry - challengeon 03-17-2021 ALP [Catalytic activity/Vol] 67 U/L 45-117 [facility] Work Phone: ALT [Catalytic activity/Vol] 33 U/L 13-56 [facility] Work Phone: CK [Catalytic activity/Vol] 106 U/L 26-192 [facility] Work Phone: CO2 [Moles/Vol] 31.0 mmol/L 21.0-32.0 [facility] Work Phone: Globulin (S) [Mass/Vol] 3.5 g/dL 2.2-4.2 [facility] Work Phone: Myoglobin [Mass/Vol] 31 ng/mL [facility] Work Phone: Comment on above: Performed at: [address] [id number] Director: Roman Ling PhD, Phone: [phone] Urea nitrogen/Creatinine [Mass ratio] 27.4 mg/mg 10-20 [facility] Work Phone: Laboratory - Hematology and Cell countson 03-17-2021 Erythrocyte distribution width (RBC) [Entitic vol] 43.8 fL 35.1-43.9 [facility] Work Phone: Erythrocyte distribution width (RBC) [Ratio] 12.9 % 11.6-14.6 [facility] Work Phone: Immature granulocytes/100 WBC (Bld) 0.400 % 0.0-0.9 [facility] Work Phone: Comment on above: IG% - Immature Granu locytes (promyelocytes, myelocytes and metamyelocytes) > 1% indicates that a LEFT SHIFT is Present. MCH (RBC) [Entitic mass] 31.1 pg 27.0-32.0 [facility] Work Phone: Nucleated RBC/100 WBC (Bld) [Ratio] 0 % 0-5 [facility] Work Phone: MCHC Auto (RBC) [Mass/Vol]on 03-17-2021 MCHC (RBC) [Mass/Vol] 33.6 g/dL 32-36 [facility] Work Phone: No Panel Informationon 03-17 Estimated GFR (MDRD) Amer 107 mL/min >60 [facility] Work Phone: Comment on above: GFR Calc Estimated GFR (MDRD) Non-Af Amer 89 mL/min >60 [facility] Work Phone: Comment on above: Non- GFR Calc Troponin I High Sensitivity 9 pg/mL 3.0-54.0 [facility] Work Phone: Comment on above: Please Note: New Kari t Units and Gender Specific Reference Ranges. For more information see Policy Stat Procedure [place] High Sensitivity Troponin (TNIH) and attachments. Platelets bldon 03-17-2021 Platelets (Bld) [#/Vol] 383 10*3/uL 150-450 [facility] Work Phone: Serum or plasma albumin nguyen urement (mass/volume)on 03-17-2021 Albumin [Mass/Vol] 4.0 g/dL 3.2-5.0 [facility] Work Phone: Serum or plasma albumin/glob ulin mass ratioon 03-17-2021 Albumin/Globulin [Mass ratio] 1.1 {ratio} 0.9-2.4 [facility] Work Phone: Serum or plasma calcium nguyen urement (mass/volume)on 03-17-2021 Calcium [Mass/Vol] 8.8 mg/dL 8.5-10.1 [facility] Work Phone: Serum or plasma creatinine m easurement (mass/volume)on 03-17-2021 Creatinine [Mass/Vol] 0.69 mg/dL 0.55-1.02 [facility] Work Phone: Comment on above: The validity of the calculated GFR & GFRAA in patients over 70 years has not been determined. Clinical correlation is essential. Serum or plasma urea nitroge n measurement (mass/volume)on 03-17-2021 Urea nitrogen [Mass/Vol] 19 mg/dL 7-18 [facility] Work Phone: Thin prep Papanicolaou smear with manual screeningon 03-17-2021 Thin prep Papanicolaou smear with manual screening 16 U/L 15-37 [facility] Work Phone: Thin prep Papanicolaou smear with manual screening 8 5-15 [facility] Work Phone: CNOVon 08-09-2018 CNOV Office Visit (UCTR) ---- IRENE BERG ([id number]) 1950 F Date Time Provider Department 08/09/18 3:15 PM SARAHY SIMMS [facility] During your visit today, we recorded the following information about you: Pulse Respiration Blood pressure Weight 108/minute 16/minute 110/76 102.1 kg Sarahy Simms APRN.MUSIC REHABILITATION THERAPIST 08/09/2018 5:20 PM Signed Subjective HPI Pt presents with c/o pig tooth puncture wound to right amos x today. States she has a pot belly pig and it has a tooth that sticks out of his mouth. The pig ran at her today and the tooth hit her leg, piercing through her jeans into her skin. She cleansed the wound with warm soapy water and hydrogen peroxide and covered with bandage. Has has several smaller scratches from this tooth with no secondary infection. But this one was deeper. Tetanus vaccine is UTD. Denies fever, chills, myalgias. Review of Systems Constitutional: Negative for chills and fever. Musculoskeletal: Negative for myalgias. Skin: Negative for itching and rash. Objective Physical Exam Constitutional: She is oriented to person, place, and time and well-developed, well-nourished, and in no distress. No distress. Neurological: She is alert and oriented to person, place, and time. Skin: Skin is warm and dry. Abrasion noted. She is not diaphoretic. 3mm puncture wound noted. bactroban and fresh dressing applied. BP 110/76 Pulse 108 Resp 16 Wt 102.1 kg (225 lb) BMI 34.98 kg/m? .Patient presents with: Puncture Wound: pig's tooth x today PAST MEDICAL HISTORY Diagnosis Date - Carpal tunnel syndrome left - Diverticulosis of colon (without mention of hemorrhage) - Essential hypertension, benign - Hypoglycemia, unspecified - Internal hemorrhoids without mention of complication - Myalgia and myositis, unspecified - Other and unspecified hyperlipidemia - Thyroid nodule right PAST SURGICAL HISTORY Procedure Laterality Date - DELIVERY+ CARE 1970, 1973 - COLONOSCOP W/ OR W/O [facility] SPEC 05/12/10 - KNEE SCOPE,DIAGNOSTIC left - LEFT HEART CATH,PERCUTANEOUS 2001 Dr. Cantu - was OK - LYSIS ADNEXAL ADHESIONS - MAMMOGRAM BILATERAL may 2009 Dr. Owens - REMOVE TONSILS/ADENOIDS,<1 2 Y/O - THYROID RIGHT FINE NEEDLE ASPIRATION ALLERGIES Codeine; Lisinopril; Penicillin G MEDICATIONS furosemide (LASIX) 40 mg tablet Take 2 tablets by mouth once daily. pravastatin (PRAVACHOL) 40 mg tablet Take 1 tablet by mouth once daily. baclofen (LIORESAL) 10 mg tablet Take 1 tablet by mouth once daily. buPROPion SR (ZYBAN SR; WELLBUTRIN SR) 150 mg 12 hr tablet Take 1 tablet by mouth twice daily. diclofenac, EC, (VOLTAREN) 50 mg EC tablet Take 1 tablet by mouth twice daily. famotidine (PEPCID) 40 mg tablet Take 1 tablet by mouth once daily as needed. meclizine (ANTIVERT) 25 mg tab Take 1 tablet by mouth as needed. VITAMIN D 50,000 unit capsule Take 50,000 Units by mouth once each week. olmesartan-hydrochl orothiazide (BENICAR HCT) 40-12.5 mg per tablet Take 1 tablet by mouth once daily. oxybutynin XL (DITROPAN XL) 5 mg 24 hr tablet Take 5 mg by mouth once daily. citalopram (CELEXA) 20 mg ORAL tablet Take 1 tablet by mouth once daily. pravastatin (PRAVACHOL) 10 mg ORAL tablet Take 10 mg by mouth once daily. potassium chloride(K-DUR 10 MEQ TAB) Pt is unsure of dose aspirin(ADULT LOW DOSE ASPIRIN 81 MG TAB, DELAYED RELEASE) Take one(1) tablet daily. THERAPEUTIC MULTIVITAMIN TAB Take one(1) tablet daily. TYLENOL ARTHRITIS 650 MG TAB 2 tabs as needed amLODIPine (NORVASC) 5 mg tablet Take 1 tablet by mouth once daily. citalopram (CELEXA) 20 mg tablet Take 1 tablet by mouth once daily. clopidogrel (PLAVIX) 75 mg tablet Take 75 mg by mouth once daily. Valsartan-Hydrochlo rothiazide 320-12.5 mg per tablet Take 1 tablet by mouth once daily. mupirocin (BACTROBAN) 2 % ointment Apply 1 application to affected area three times daily. doxycycline monohydrate (MONODOX) 100 mg capsule Take 1 capsule by mouth twice daily for 10 days. levothyroxine 175 mcg ORAL tablet Take 1 tablet by mouth once daily. lisinopril 10 mg ORAL tablet Take 10 mg by mouth once daily. furosemide(LASIX 40 MG TAB) Take one(1) and 1/2 tablet daily. telmisartan(MICARDI S 80 MG TAB) Take one(1) two times daily omega-3 fatty acids(FISH OIL CONCENTRATE 1,000 MG CAP) Take one(1) tablet daily. FAMILY HISTORY Problem Relation Age of Onset - Breast Cancer Mother dx age 68, now alive at 86 (2008) - Heart Father aortic valve - Diabetes Mother contolled will PO meds - Hypertension Father Social History Tobacco Use - Smoking status: Never Smoker - Smokeless tobacco: Never Used Substance Use Topics - Alcohol use: No - Drug use: No ASSESSMENT/PLAN: 1. Animal bite of right lower leg, initial encounter - ICD9: 891.0, E906.5, ICD10: S81.851A - MUPIROCIN 2 % TOPICAL OINTMENT - DOXYCYCLINE MONOHYDRATE 100 MG CAPSULE Reviewed red flag SANDS The patient is instructed to return or seek emergency treatment if symptoms become worse or with any acute change in condition. The patient verbalizes understanding and is in agreement with plan of care. Sarahy Simms CNP Referring Provider: SELF [[id number]] Allergies As of Date: 08/09/2018 Noted Allergy Reaction CODEINE 03/26/2006 2 - Rash Comments: roaring in ears LISINOPRIL 06/30/2008 3 - Cough PENICILLIN G 03/26/2006 2 - Rash Date Reviewed: 08/09/2018 Reviewed by: Jordi Acevedo Ma - Fully Assessed Reason for Visit: Puncture Wound [1987] Cmt: pig's tooth x today Primary Visit Diagnosis:Animal bite of right lower leg, initial encounter [S81.770Q] Order(s):mupirocin (BACTROBAN) 2 % ointmentApply 1 application to affected area three times daily.Disp: 30 gRfl: 0 doxycycline monohydrate (MONODOX) 100 mg capsuleTake 1 capsule by mouth twice daily for 10 days.Disp: 20 capsuleRfl: 0 Prescriptions as of 08/09/2018 Sig: FUROSEMIDE 40 MG TABLET Take 2 tablets by mouth once * PRAVASTATIN 40 MG TABLET Take 1 tablet by mouth once d* BACLOFEN 10 MG TABLET Take 1 tablet by mouth once d* BUPROPION HCL SR 150 MG TABLE* Take 1 tablet by mouth twice * DICLOFENAC SODIUM 50 MG TABLE* Take 1 tablet by mouth twice * FAMOTIDINE 40 MG TABLET Take 1 tablet by mouth once d* MECLIZINE 25 MG TABLET Take 1 tablet by mouth as nee* VITAMIN D2 50,000 UNIT CAPSULE Take 50,000 Units by mouth on* OLMESARTAN 40 MG-HYDROCHLOROT* Take 1 tablet by mouth once d* OXYBUTYNIN CHLORIDE ER 5 MG T* Take 5 mg by mouth once daily* CITALOPRAM 20 MG TABLET Take 1 tablet by mouth once d* PRAVASTATIN 10 MG TABLET Take 10 mg by mouth once ebony* K-DUR 10 MEQ TABLET,EXTENDED * Pt is unsure of dose ADULT LOW DOSE ASPIRIN 81 MG * Take one(1) tablet daily. THERAPEUTIC MULTIVITAMIN TABL* Take one(1) tablet daily. TYLENOL ARTHRITIS 650 MG TABL* 2 tabs as needed AMLODIPINE 5 MG TABLET Take 1 tablet by mouth once d* CITALOPRAM 20 MG TABLET Take 1 tablet by mouth once d* CLOPIDOGREL 75 MG TABLET Take 75 mg by mouth once ebony* VALSARTAN 320 MG-HYDROCHLOROT* Take 1 tablet by mouth once d* MUPIROCIN 2 % TOPICAL OINTMENT Apply 1 application to affect* DOXYCYCLINE MONOHYDRATE 100 M* Take 1 capsule by mouth twice* LEVOTHYROXINE 175 MCG TABLET Take 1 tablet by mouth once d* Patient not taking: Reported on 06/20/2018 LISINOPRIL 10 MG TABLET Take 10 mg by mouth once ebony* LASIX 40 MG TABLET Take one(1) and 1/2 tablet da* MICARDIS 80 MG TABLET Take one(1) two times daily FISH OIL CONCENTRATE 1,000 MG* Take one(1) tablet daily. Medication notes this encounter FISH OIL CONCENTRATE 1,000 MG CAPSULE >> Jordi Acevedo Ma 08/09/2018 3:23 PM >> JORDI ACEVEDO MA SunAug 09, 2018 3:23 PM When remembers Problem List As Of Date 08/09/2018 Noted Resolved BENIGN HYPERTENSION [I10] INVALID FOR* More... OBESITY NOS [E66.9] INVALID FOR* HYPERLIPIDEMIA NEC/NOS [E78.5] INVALID FOR* More... 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 DOXYCYCLINE MONOHYDRATE 100 MG CAPSU* 20 c* 0 08/09/2018 08/19/2018 Route: ORAL Sig: Take 1 capsule by mouth twice daily for 10 days. Encounter Status:Closed by SARAHY SIMMS CNP on 08/09/18 [facility] PROGRESSon 08-09-2018 Protein mass conc HNO ID: [id number] Author: Sarahy Simms Service: ? Author Type: Nurse Practitioner Type: Progress Notes Filed: 08/09/2018 5:20 PM Note Text: Subjective HPI Pt presents with c/o pig tooth puncture wound to right amos x today. States she has a pot belly pig and it has a tooth that sticks out of his mouth. The pig ran at her today and the tooth hit her leg, piercing through her jeans into her skin. She cleansed the wound with warm soapy water and hydrogen peroxide and covered with bandage. Has has several smaller scratches from this tooth with no secondary infection. But this one was deeper. Tetanus vaccine is UTD. Denies fever, chills, myalgias. Review of Systems Constitutional: Negative for chills and fever. Musculoskeletal: Negative for myalgias. Skin: Negative for itching and rash. Objective Physical Exam Constitutional: She is oriented to person, place, and time and well-developed, well-nourished, and in no distress. No distress. Neurological: She is alert and oriented to person, place, and time. Skin: Skin is warm and dry. Abrasion noted. She is not diaphoretic. 3mm puncture wound noted. bactroban and fresh dressing applied. BP 110/76 Pulse 108 Resp 16 Wt 102.1 kg (225 lb) BMI 34.98 kg/m? .Patient presents with: Puncture Wound: pig's tooth x today PAST MEDICAL HISTORY Diagnosis Date - Carpal tunnel syndrome left - Diverticulosis of colon (without mention of hemorrhage) - Essential hypertension, benign - Hypoglycemia, unspecified - Internal hemorrhoids without mention of complication - Myalgia and myositis, unspecified - Other and unspecified hyperlipidemia - Thyroid nodule right PAST SURGICAL HISTORY Procedure Laterality Date - DELIVERY+ CARE 1970, 1973 - COLONOSCOP W/ OR W/O [facility] SPEC 05/12/10 - KNEE SCOPE,DIAGNOSTIC left - LEFT HEART CATH,PERCUTANEOUS 2001 Dr. Cantu - was OK - LYSIS ADNEXAL ADHESIONS - MAMMOGRAM BILATERAL may 2009 Dr. Owens - REMOVE TONSILS/ADENOIDS,<1 2 Y/O - THYROID RIGHT FINE NEEDLE ASPIRATION ALLERGIES Codeine; Lisinopril; Penicillin G MEDICATIONS furosemide (LASIX) 40 mg tablet Take 2 tablets by mouth once daily. pravastatin (PRAVACHOL) 40 mg tablet Take 1 tablet by mouth once daily. baclofen (LIORESAL) 10 mg tablet Take 1 tablet by mouth once daily. buPROPion SR (ZYBAN SR; WELLBUTRIN SR) 150 mg 12 hr tablet Take 1 tablet by mouth twice daily. diclofenac, EC, (VOLTAREN) 50 mg EC tablet Take 1 tablet by mouth twice daily. famotidine (PEPCID) 40 mg tablet Take 1 tablet by mouth once daily as needed. meclizine (ANTIVERT) 25 mg tab Take 1 tablet by mouth as needed. VITAMIN D 50,000 unit capsule Take 50,000 Units by mouth once each week. olmesartan-hydrochl orothiazide (BENICAR HCT) 40-12.5 mg per tablet Take 1 tablet by mouth once daily. oxybutynin XL (DITROPAN XL) 5 mg 24 hr tablet Take 5 mg by mouth once daily. citalopram (CELEXA) 20 mg ORAL tablet Take 1 tablet by mouth once daily. pravastatin (PRAVACHOL) 10 mg ORAL tablet Take 10 mg by mouth once daily. potassium chloride(K-DUR 10 MEQ TAB) Pt is unsure of dose aspirin(ADULT LOW DOSE ASPIRIN 81 MG TAB, DELAYED RELEASE) Take one(1) tablet daily. THERAPEUTIC MULTIVITAMIN TAB Take one(1) tablet daily. TYLENOL ARTHRITIS 650 MG TAB 2 tabs as needed amLODIPine (NORVASC) 5 mg tablet Take 1 tablet by mouth once daily. citalopram (CELEXA) 20 mg tablet Take 1 tablet by mouth once daily. clopidogrel (PLAVIX) 75 mg tablet Take 75 mg by mouth once daily. Valsartan-Hydrochlo rothiazide 320-12.5 mg per tablet Take 1 tablet by mouth once daily. mupirocin (BACTROBAN) 2 % ointment Apply 1 application to affected area three times daily. doxycycline monohydrate (MONODOX) 100 mg capsule Take 1 capsule by mouth twice daily for 10 days. levothyroxine 175 mcg ORAL tablet Take 1 tablet by mouth once daily. lisinopril 10 mg ORAL tablet Take 10 mg by mouth once daily. furosemide(LASIX 40 MG TAB) Take one(1) and 1/2 tablet daily. telmisartan(MICARDI S 80 MG TAB) Take one(1) two times daily omega-3 fatty acids(FISH OIL CONCENTRATE 1,000 MG CAP) Take one(1) tablet daily. FAMILY HISTORY Problem Relation Age of Onset - Breast Cancer Mother dx age 68, now alive at 86 (2009) - Heart Father aortic valve - Diabetes Mother contolled will PO meds - Hypertension Father Social History Tobacco Use - Smoking status: Never Smoker - Smokeless tobacco: Never Used Substance Use Topics - Alcohol use: No - Drug use: No ASSESSMENT/PLAN: 1. Animal bite of right lower leg, initial encounter - ICD9: 891.0, E906.5, ICD10: S81.851A - MUPIROCIN 2 % TOPICAL OINTMENT - DOXYCYCLINE MONOHYDRATE 100 MG CAPSULE Reviewed red flag SANDS The patient is instructed to return or seek emergency treatment if symptoms become worse or with any acute change in condition. The patient verbalizes understanding and is in agreement with plan of care. Sarahy Simms CNP [facility] CNOVon 06-20-2018 CNOV Office Visit (UCWSTR) ---- IRENE BERG ([id number]) 1950 F Date Time Provider Department 06/20/18 9:15 AM DIMPLE LINDSEY (MUSIC REHABILITATION THERAPIST) [facility] During your visit today, we recorded the following information about you: Temperature Pulse Respiration Blood pressure 98 degrees 76/minute 16/minute 124/78 Weight 107.5 kg Dimple Lindsey APRN.CNP 06/20/2018 9:52 AM Signed ASSESSMENT/PLAN: 1. Dizziness - ICD9: 780.4, ICD10: R42 (primary diagnosis) 2. Right facial numbness - ICD9: 782.0, ICD10: R20.0 - Recommend further evaluation in ER. YENI Cunningham APRN.CNP 06/20/2018 10:23 AM Signed Subjective HPI Irene Berg is a 68 year old female who presents with dizziness for the past couple weeks that is intermittent, and in the last few days has noticed some vision changes and a pulling sensation on her right face area. She denies l.o.c. She denies pain or weakness. Review of Systems Constitutional: Negative. Negative for fever. HENT: Negative for congestion, ear pain and sore throat. Eyes: Positive for blurred vision. Respiratory: Negative. Negative for cough. Neurological: Positive for dizziness and sensory change. Negative for tingling, tremors, speech change, focal weakness, seizures, loss of consciousness, weakness and headaches. BP 124/78 Pulse 76 Temp 36.7 ?C (98 ?F) (Tympanic) Resp 16 Wt 107.5 kg (237 lb) BMI 36.84 kg/m? PAST MEDICAL HISTORY Diagnosis Date - Carpal tunnel syndrome left - Diverticulosis of colon (without mention of hemorrhage) - Essential hypertension, benign - Hypoglycemia, unspecified - Internal hemorrhoids without mention of complication - Myalgia and myositis, unspecified - Other and unspecified hyperlipidemia - Thyroid nodule right PAST SURGICAL HISTORY Procedure Laterality Date - DELIVERY+ CARE 1970, 1973 - COLONOSCOP W/ OR W/O [facility] SPEC 05/12/10 - KNEE SCOPE,DIAGNOSTIC left - LEFT HEART CATH,PERCUTANEOUS 2001 Dr. Cantu - was OK - LYSIS ADNEXAL ADHESIONS - MAMMOGRAM BILATERAL may 2009 Dr. Owens - REMOVE TONSILS/ADENOIDS,<1 2 Y/O - THYROID RIGHT FINE NEEDLE ASPIRATION ALLERGIES Codeine; Lisinopril; Penicillin G MEDICATIONS citalopram (CELEXA) 20 mg ORAL tablet Take 1 tablet by mouth once daily. pravastatin (PRAVACHOL) 10 mg ORAL tablet Take 10 mg by mouth once daily. potassium chloride(K-DUR 10 MEQ TAB) Pt is unsure of dose furosemide(LASIX 40 MG TAB) Take one(1) and 1/2 tablet daily. omega-3 fatty acids(FISH OIL CONCENTRATE 1,000 MG CAP) Take one(1) tablet daily. aspirin(ADULT LOW DOSE ASPIRIN 81 MG TAB, DELAYED RELEASE) Take one(1) tablet daily. THERAPEUTIC MULTIVITAMIN TAB Take one(1) tablet daily. TYLENOL ARTHRITIS 650 MG TAB 2 tabs as needed VITAMIN D 50,000 unit capsule olmesartan-hydrochl orothiazide (BENICAR HCT) 40-12.5 mg per tablet oxybutynin XL (DITROPAN XL) 5 mg 24 hr tablet levothyroxine 175 mcg ORAL tablet Take 1 tablet by mouth once daily. lisinopril 10 mg ORAL tablet Take 10 mg by mouth once daily. telmisartan(MICARDI S 80 MG TAB) Take one(1) two times daily FAMILY HISTORY Problem Relation Age of Onset - Breast Cancer Mother dx age 68, now alive at 86 (2008) - Heart Father aortic valve - Diabetes Mother contolled will PO meds - Hypertension Father Social History Tobacco Use - Smoking status: Never Smoker - Smokeless tobacco: Never Used Substance Use Topics - Alcohol use: No - Drug use: No Objective Physical Exam Constitutional: She is oriented to person, place, and time and well-developed, well-nourished, and in no distress. HENT: Head: Neurological: She is alert and oriented to person, place, and time. She has normal sensation and normal strength. She displays facial asymmetry. She displays no weakness and normal speech. She exhibits normal muscle tone. She has an abnormal Romberg Test. Skin: Skin is warm and dry. Nursing note and vitals reviewed. ASSESSMENT/PLAN: 1. Dizziness - ICD9: 780.4, ICD10: R42 (primary diagnosis) 2. Right facial numbness - ICD9: 782.0, ICD10: R20.0 - Recommend further evaluation in ER. Patient chooses to go to [facility]. Report called to attending . Dimple Lindsey APRN.MUSIC REHABILITATION THERAPIST Referring Provider: SELF [[id number]] Allergies As of Date: 06/20/2018 Noted Allergy Reaction CODEINE 03/26/2006 2 - Rash Comments: roaring in ears LISINOPRIL 06/30/2008 3 - Cough PENICILLIN G 03/26/2006 2 - Rash Date Reviewed: 06/20/2018 Reviewed by: Grazyna Gaston Ma - Fully Assessed Reason for Visit: Dizziness [36] Cmt: ear pressure x couple weeks increased last 2 days Primary Visit Diagnosis:Dizziness [R42] Other Visit Diagnosis:Right facial numbness [R20.0] Prescriptions as of 06/20/2018 Sig: CITALOPRAM 20 MG TABLET Take 1 tablet by mouth once d* PRAVASTATIN 10 MG TABLET Take 10 mg by mouth once ebony* K-DUR 10 MEQ TABLET,EXTENDED * Pt is unsure of dose LASIX 40 MG TABLET Take one(1) and 1/2 tablet da* FISH OIL CONCENTRATE 1,000 MG* Take one(1) tablet daily. ADULT LOW DOSE ASPIRIN 81 MG * Take one(1) tablet daily. THERAPEUTIC MULTIVITAMIN TABL* Take one(1) tablet daily. TYLENOL ARTHRITIS 650 MG TABL* 2 tabs as needed VITAMIN D2 50,000 UNIT CAPSULE OLMESARTAN 40 MG-HYDROCHLOROT* OXYBUTYNIN CHLORIDE ER 5 MG T* LEVOTHYROXINE 175 MCG TABLET Take 1 tablet by mouth once d* Patient not taking: Reported on 06/20/2018 LISINOPRIL 10 MG TABLET Take 10 mg by mouth once ebony* MICARDIS 80 MG TABLET Take one(1) two times daily Problem List As Of Date 06/20/2018 Noted Resolved BENIGN HYPERTENSION [I10] INVALID FOR* More... OBESITY NOS [E66.9] INVALID FOR* HYPERLIPIDEMIA NEC/NOS [E78.5] INVALID FOR* More... 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 Dizziness - ICD9: 780.4, ICD10: R42 (primary diagnosis) 2. Right facial numbness - ICD9: 782.0, ICD10: R20.0 - Recommend further evaluation in ER. Dimple Lindsey APRN.MUSIC REHABILITATION THERAPIST Encounter Status:Closed by DIMPLE LINDSEY on 06/20/18 [facility] PROGRESSon 06-20-2018 Protein mass conc HNO ID: [id number] Author: Dimple (Margarito) Rosalia Service: ? Author Type: Nurse Practitioner Type: Progress Notes Filed: 06/20/2018 10:23 AM Note Text: Subjective HPI Irene Berg is a 68 year old female who presents with dizziness for the past couple weeks that is intermittent, and in the last few days has noticed some vision changes and a pulling sensation on her right face area. She denies l.o.c. She denies pain or weakness. Review of Systems Constitutional: Negative. Negative for fever. HENT: Negative for congestion, ear pain and sore throat. Eyes: Positive for blurred vision. Respiratory: Negative. Negative for cough. Neurological: Positive for dizziness and sensory change. Negative for tingling, tremors, speech change, focal weakness, seizures, loss of consciousness, weakness and headaches. BP 124/78 Pulse 76 Temp 36.7 ?C (98 ?F) (Tympanic) Resp 16 Wt 107.5 kg (237 lb) BMI 36.84 kg/m? PAST MEDICAL HISTORY Diagnosis Date - Carpal tunnel syndrome left - Diverticulosis of colon (without mention of hemorrhage) - Essential hypertension, benign - Hypoglycemia, unspecified - Internal hemorrhoids without mention of complication - Myalgia and myositis, unspecified - Other and unspecified hyperlipidemia - Thyroid nodule right PAST SURGICAL HISTORY Procedure Laterality Date - DELIVERY+ CARE 1970, 1973 - COLONOSCOP W/ OR W/O [facility] SPEC 05/12/10 - KNEE SCOPE,DIAGNOSTIC left - LEFT HEART CATH,PERCUTANEOUS 2001 Dr. Cantu - was OK - LYSIS ADNEXAL ADHESIONS - MAMMOGRAM BILATERAL may 2009 Dr. Owens - REMOVE TONSILS/ADENOIDS,<1 2 Y/O - THYROID RIGHT FINE NEEDLE ASPIRATION ALLERGIES Codeine; Lisinopril; Penicillin G MEDICATIONS citalopram (CELEXA) 20 mg ORAL tablet Take 1 tablet by mouth once daily. pravastatin (PRAVACHOL) 10 mg ORAL tablet Take 10 mg by mouth once daily. potassium chloride(K-DUR 10 MEQ TAB) Pt is unsure of dose furosemide(LASIX 40 MG TAB) Take one(1) and 1/2 tablet daily. omega-3 fatty acids(FISH OIL CONCENTRATE 1,000 MG CAP) Take one(1) tablet daily. aspirin(ADULT LOW DOSE ASPIRIN 81 MG TAB, DELAYED RELEASE) Take one(1) tablet daily. THERAPEUTIC MULTIVITAMIN TAB Take one(1) tablet daily. TYLENOL ARTHRITIS 650 MG TAB 2 tabs as needed VITAMIN D 50,000 unit capsule olmesartan-hydrochl orothiazide (BENICAR HCT) 40-12.5 mg per tablet oxybutynin XL (DITROPAN XL) 5 mg 24 hr tablet levothyroxine 175 mcg ORAL tablet Take 1 tablet by mouth once daily. lisinopril 10 mg ORAL tablet Take 10 mg by mouth once daily. telmisartan(MICARDI S 80 MG TAB) Take one(1) two times daily FAMILY HISTORY Problem Relation Age of Onset - Breast Cancer Mother dx age 68, now alive at 86 (2008) - Heart Father aortic valve - Diabetes Mother contolled will PO meds - Hypertension Father Social History Tobacco Use - Smoking status: Never Smoker - Smokeless tobacco: Never Used Substance Use Topics - Alcohol use: No - Drug use: No Objective Physical Exam Constitutional: She is oriented to person, place, and time and well-developed, well-nourished, and in no distress. HENT: Head: Neurological: She is alert and oriented to person, place, and time. She has normal sensation and normal strength. She displays facial asymmetry. She displays no weakness and normal speech. She exhibits normal muscle tone. She has an abnormal Romberg Test. Skin: Skin is warm and dry. Nursing note and vitals reviewed. ASSESSMENT/PLAN: 1. Dizziness - ICD9: 780.4, ICD10: R42 (primary diagnosis) 2. Right facial numbness - ICD9: 782.0, ICD10: R20.0 - Recommend further evaluation in ER. Patient chooses to go to [facility]. Report called to attending MD. Dimple Lindsey APRN.MUSIC REHABILITATION THERAPIST Normal [facility] MRI Brain w/ + w/o Contrasto n 09-21-2017 MRI Brain w/ + w/o Contrast Patient Name: IRENE BERG MRI Exam Date/Time 09/21/2017 14:14:02 EDT Exam MRI Brain w/ + w/o Contrast Ordering Physician ANGELA ABEL Accession Number [id number] CPT4 Codes 03169 () Reason For Exam hearing loss Report MRI BRAIN WITH and WITHOUT CONTRAST (IAC PROTOCOL): INDICATION: Right-sided hearing loss COMPARISON: None CONTRAST: 20 mL of Gadolinium. MR scan of the brain was performed with sagittal T1 weighted, axial T2 weighted and FLAIR scans. High resolution axial T1-weighted and 3D studies of the posterior fossa were performed. Following Gadolinium administration, high resolution axial and coronal fat-saturated T1 weighted images were performed. The ventricles and sulci are normal in size for age. There is no evidence of mass lesion or cerebral edema. There is no suggestion of intracranial hemorrhage on the gradient echo T2 sequence. There is no hydrocephalus, midline shift, or herniation. No epidural or subdural collections are present. Several foci of periventricular T2 hyperintensity, favoring the peripheral aspects of the brain are visualized, a nonspecific finding, often secondary to microangiopathic ischemic events. Diffusion weighted images are negative. The sellar and parasellar anatomy demonstrates no gross abnormality. Flow void is seen within the vessels of the [place]. The globes and orbital contents are grossly normal. A right-sided retention cyst is present. There is mild mucosal thickening of the ethmoid air cells. The mastoid air cells are clear. The brain stem is unremarkable. Within the posterior fossa the cerebellum and craniocervical junction are normal. The cisternal portions of the 7th and 8th cranial nerves are normal. There is no mass in the IACs or petrous bones. Following Gadolinium administration, there is no evidence of acoustic schwannoma or other mass lesion in the posterior fossa or petrous bones. There is no pathologic enhancement in the brain or meninges. There is normal enhancement of the cerebral vascular structures and choroid. IMPRESSION: No evidence of acoustic schwannoma or other posterior fossa mass lesion. Negative MR scan of the remainder of the brain without and with Gadolinium. Report Dictated on Workstation: [id number] Final Dictated: 09/21/2017 4:45 pm Dictating Physician: DO LOPEZ ALFRED Signed Date and Time: 09/21/2017 4:47 pm Signed by: DO LOPEZ ALFRED Transcribed Date and Time: 09/21/2017 4:45 Normal [facility] Bacteria identified Anaer cx Nom (Unsp spec) Anaerobic Culture Anaerobic cocci [facility] Work Phone: Bacteria identified Cx Nom ( Wound) Wound Culture Serratia marcescens [facility] Work Phone: Gram stain for investigation of transfusion reaction Microscopic observation Gram stain Nom (Unsp spec) [facility] Work Phone: Vital Signs Date Time Vital Sign Value Performing Clinician Facility 11-05-2024 10:35-0400 Body height 170.[address] Delta Sahu MD Work Phone: [facility] 11-05-2024 10:35-0400 Body weight 111.[address] Delta Sahu MD Work Phone: [facility] 10-31-2024 13:50-0400 Body height 170.[address] Delta Sahu MD Work Phone: [facility] 10-31-2024 13:50-0400 Body mass index (BMI) [Ratio] 38.3 kg/m2 Dr. Delta Sahu MD Work Phone: [facility] 10-31-2024 13:50-0400 Body temperature 97.9 [degF] Dr. Delta Sahu MD Work Phone: [facility] 10-31-2024 13:50-0400 Body weight 111.[address] Delta Sahu MD Work Phone: [facility] 10-31-2024 13:50-0400 Diastolic blood pressure 80 mm[Hg] Dr. Delta Sahu MD Work Phone: [facility] 10-31-2024 13:50-0400 Heart rate 94 /min Dr. Delta Sahu MD Work Phone: [facility] 10-31-2024 13:50-0400 Respiratory rate 18 /min Dr. Delta Sahu MD Work Phone: [facility] 10-31-2024 13:50-0400 SaO2% (BldA) [Mass fraction] 97 % Dr. Delta Sahu MD Work Phone: [facility] 10-31-2024 13:50-0400 Systolic blood pressure 142 mm[Hg] Dr. Delta Sahu MD Work Phone: [facility] 09-30-2024 10:30-0400 Body height 170.[address] Delta Sahu MD Work Phone: [facility] 09-30-2024 10:30-0400 Body weight 108.[address] Delta Sahu MD Work Phone: [facility] 09-02-2024 09:08-0400 Body height 170.[address] Delta Sahu MD Work Phone: [facility] 09-02-2024 09:08-0400 Body mass index (BMI) [Ratio] 37.5 kg/m2 Dr. Delta Sahu MD Work Phone: [facility] 09-02-2024 09:08-0400 Body temperature 97.3 [degF] Dr. Delta Sahu MD Work Phone: [facility] 09-02-2024 09:08-0400 Body weight 108.[address] Delta Sahu MD Work Phone: [facility] 09-02-2024 09:08-0400 Diastolic blood pressure 85 mm[Hg] Dr. Delta Sahu MD Work Phone: [facility] 09-02-2024 09:08-0400 Heart rate 79 /min Dr. Delta Sahu MD Work Phone: [facility] 09-02-2024 09:08-0400 Respiratory rate 18 /min Dr. Delta Sahu MD Work Phone: [facility] 09-02-2024 09:08-0400 SaO2% (BldA) [Mass fraction] 95 % Dr. Delta Sahu MD Work Phone: [facility] 09-02-2024 09:08-0400 Systolic blood pressure 133 mm[Hg] Dr. Delta Sahu MD Work Phone: [facility] 07-30-2024 13:16-0400 Body height 170.[address] Delta Sahu MD Work Phone: [facility] 07-30-2024 13:16-0400 Body mass index (BMI) [Ratio] 37.8 kg/m2 Dr. Delta Sahu MD Work Phone: [facility] 07-30-2024 13:16-0400 Body temperature 96.7 [degF] Dr. Delta Sahu MD Work Phone: [facility] 07-30-2024 13:16-0400 Body weight 109.[address] Delta Sahu MD Work Phone: [facility] 07-30-2024 13:16-0400 Diastolic blood pressure 64 mm[Hg] Dr. Delta Sahu MD Work Phone: [facility] 07-30-2024 13:16-0400 Heart rate 86 /min Dr. Delta Sahu MD Work Phone: [facility] 07-30-2024 13:16-0400 Respiratory rate 16 /min Dr. Delta Sahu MD Work Phone: [facility] 07-30-2024 13:16-0400 SaO2% (BldA) [Mass fraction] 97 % Dr. Delta Sahu MD Work Phone: [facility] 07-30-2024 13:16-0400 Systolic blood pressure 128 mm[Hg] Dr. Delta Sahu MD Work Phone: [facility] 07-29-2024 14:39-0400 Body height 170.[address] Delta Sahu MD Work Phone: [facility] 07-29-2024 14:39-0400 Body mass index (BMI) [Ratio] 37.9 kg/m2 Dr. Delta Sahu MD Work Phone: [facility] 07-29-2024 14:39-0400 Body temperature 98 [degF] Dr. Delta Sahu MD Work Phone: [facility] 07-29-2024 14:39-0400 Body weight 109.[address] Delta Sahu MD Work Phone: [facility] 07-29-2024 14:39-0400 Diastolic blood pressure 88 mm[Hg] Dr. Delta Sahu MD Work Phone: [facility] 07-29-2024 14:39-0400 Heart rate 86 /min Dr. Delta Sahu MD Work Phone: [facility] 07-29-2024 14:39-0400 Respiratory rate 16 /min Dr. Delta Sahu MD Work Phone: [facility] 07-29-2024 14:39-0400 SaO2% (BldA) [Mass fraction] 97 % Dr. Delta Sahu MD Work Phone: [facility] 07-29-2024 14:39-0400 Systolic blood pressure 160 mm[Hg] Dr. Delta Sahu MD Work Phone: [facility] 07-22-2024 10:42-0400 Body height 170.[address] Delta Sahu MD Work Phone: [facility] 07-22-2024 10:40-0400 Body mass index (BMI) [Ratio] 36.6 kg/m2 Dr. Delta Sahu MD Work Phone: [facility] 07-22-2024 10:40-0400 Body weight 106.[address] Delta Sahu MD Work Phone: [facility] 07-22-2024 10:40-0400 Diastolic blood pressure 68 mm[Hg] Dr. Delta Sahu MD Work Phone: [facility] 07-22-2024 10:40-0400 Systolic blood pressure 90 mm[Hg] Dr. Delta Sahu MD Work Phone: [facility] 07-08-2024 06:24-0400 Body mass index (BMI) [Ratio] 37.9 kg/m2 Dr. Delta Sahu MD Work Phone: [facility] 07-08-2024 06:24-0400 Body weight 109.[address] Delta Sahu MD Work Phone: [facility] 07-08-2024 06:24-0400 Diastolic blood pressure 83 mm[Hg] Dr. Delta Sahu MD Work Phone: [facility] 07-08-2024 06:24-0400 Heart rate 91 /min Dr. Delta Sahu MD Work Phone: [facility] 07-08-2024 06:24-0400 Respiratory rate 18 /min Dr. Delta Sahu MD Work Phone: [facility] 07-08-2024 06:24-0400 SaO2% (BldA) [Mass fraction] 96 % Dr. Delta Sahu MD Work Phone: [facility] 07-08-2024 06:24-0400 Systolic blood pressure 139 mm[Hg] Dr. Delta Sahu MD Work Phone: [facility] 07-02-2024 16:27-0400 Body temperature 97.8 [degF] Dr. Delta Sahu MD Work Phone: [facility] 07-02-2024 16:27-0400 Diastolic blood pressure 70 mm[Hg] Dr. Delta Sahu MD Work Phone: [facility] 07-02-2024 16:27-0400 Heart rate 80 /min Dr. Delta Sahu MD Work Phone: [facility] 07-02-2024 16:27-0400 Respiratory rate 15 /min Dr. Delta Sahu MD Work Phone: [facility] 07-02-2024 16:27-0400 SaO2% (BldA) [Mass fraction] 97 % Dr. Delta Sahu MD Work Phone: [facility] 07-02-2024 16:27-0400 Systolic blood pressure 140 mm[Hg] Dr. Delta Sahu MD Work Phone: [facility] 07-02-2024 13:59-0400 Body mass index (BMI) [Ratio] 39.3 kg/m2 Dr. Delta Sahu MD Work Phone: [facility] 07-02-2024 13:59-0400 Body weight 113.[address] Delta Sahu MD Work Phone: [facility] 06-25-2024 16:22-0400 Body temperature 97.7 [degF] DR CHRISTOPHER KRUGER MD [facility] 06-25-2024 16:22-0400 Diastolic Blood Pressure Non-Invasive 94 mm[Hg] DR CHRISTOPHER KRUGER MD [facility] 06-25-2024 16:22-0400 Heart rate 89 /min DR CHRISTOPHER KRUGER MD [facility] 06-25-2024 16:22-0400 Respiratory rate 16 /min DR CHRISTOPHER KRUGER MD [facility] 06-25-2024 16:22-0400 Systolic Blood Pressure Non-Invasive 154 mm[Hg] DR CHRISTOPHER KRUGER MD [facility] 06-25-2024 06:07-0400 Body temperature 97.7 [degF] DR CHRISTOPHER KRUGER MD [facility] 06-25-2024 06:07-0400 Diastolic Blood Pressure Non-Invasive 70 mm[Hg] DR CHRISTOPHER KRUGER MD [facility] 06-25-2024 06:07-0400 Heart rate 85 /min DR CHRISTOPHER KRUGER MD [facility] 06-25-2024 06:07-0400 Respiratory rate 16 /min DR CHRISTOPHER KRUGER MD [facility] 06-25-2024 06:07-0400 Systolic Blood Pressure Non-Invasive 147 mm[Hg] DR CHRISTOPHER KRUGER MD [facility] 06-25-2024 04:30-0400 Body temperature 97.7 [degF] DR CHRISTOPHER KRUGER MD [facility] 06-25-2024 04:30-0400 Diastolic Blood Pressure Non-Invasive 54 mm[Hg] DR CHRISTOPHER KRUGER MD [facility] 06-25-2024 04:30-0400 Heart rate 87 /min DR CHRISTOPHER KRUGER MD [facility] 06-25-2024 04:30-0400 Respiratory rate 16 /min DR CHRISTOPHER KRUGER MD [facility] 06-25-2024 04:30-0400 Systolic Blood Pressure Non-Invasive 112 mm[Hg] DR CHRISTOPHER KRUGER MD [facility] 06-24-2024 23:32-0400 Heart rate 83 /min DR CHRISTOPHER KRUGER MD [facility] 06-24-2024 19:04-0400 Heart rate 86 /min DR CHRISTOPHER KRUGER MD [facility] 06-24-2024 14:26-0400 Body height [address] CHRISTOPHER KRUGER MD [facility] 06-24-2024 14:26-0400 Body weight 111.[address] CHRISTOPHER KRUGER MD [facility] 06-24-2024 14:26-0400 Body weight 38.58 kg/m2 DR CHRISTOPHER KRUGER MD [facility] 06-24-2024 13:55-0400 Heart rate 72 /min DR CHRISTOPHER KRUGER MD [facility] 06-24-2024 12:57-0400 Body temperature 98.42 [degF] DR CHRISTOPHER KRUGER MD [facility] 06-24-2024 12:45-0400 Respiratory Rate - Anes 12 br/min DR CHRISTOPHER KRUGER MD [facility] 06-24-2024 12:40-0400 Respiratory Rate - Anes 10 br/min DR CHRISTOPHER KRUGER MD [facility] 06-24-2024 12:35-0400 Respiratory Rate - Anes 12 br/min DR CHRISTOPHER KRUGER MD [facility] 06-24-2024 12:30-0400 Body temperature 96.8 [degF] DR CHRISTOPHER KRUGER MD [facility] 06-24-2024 09:47-0400 Body height [address] CHRISTOPHER KRUGER MD [facility] 06-24-2024 09:47-0400 Body temperature 98.24 [degF] DR CHRISTOPHER KRUGER MD [facility] 06-24-2024 09:47-0400 Body weight 111.[address] CHRISTOPHER KRUGER MD [facility] 06-06-2024 14:15-0400 Body height 170.[address] Delta Sahu MD Work Phone: [facility] 06-06-2024 14:15-0400 Body mass index (BMI) [Ratio] 38.8 kg/m2 Dr. Delta Sahu MD Work Phone: [facility] 06-06-2024 14:15-0400 Body temperature 97 [degF] Dr. Delta Sahu MD Work Phone: [facility] 06-06-2024 14:15-0400 Body weight 112.[address] Delta Sahu MD Work Phone: [facility] 06-06-2024 14:15-0400 Diastolic blood pressure 82 mm[Hg] Dr. Delta Sahu MD Work Phone: [facility] 06-06-2024 14:15-0400 Heart rate 98 /min Dr. Delta Sahu MD Work Phone: [facility] 06-06-2024 14:15-0400 Respiratory rate 19 /min Dr. Delta Sahu MD Work Phone: [facility] 06-06-2024 14:15-0400 SaO2% (BldA) [Mass fraction] 98 % Dr. Delta Sahu MD Work Phone: [facility] 06-06-2024 14:15-0400 Systolic blood pressure 142 mm[Hg] Dr. Delta Sahu MD Work Phone: [facility] 05-29-2024 12:26-0400 Body mass index (BMI) [Ratio] 38.5 kg/m2 Dr. Delta Sahu MD Work Phone: [facility] 05-29-2024 12:26-0400 Body temperature 97.8 [degF] Dr. Delta Sahu MD Work Phone: [facility] 05-29-2024 12:26-0400 Body weight 111.[address] Delta Sahu MD Work Phone: [facility] 05-29-2024 12:26-0400 Diastolic blood pressure 78 mm[Hg] Dr. Delta Sahu MD Work Phone: [facility] 05-29-2024 12:26-0400 Heart rate 78 /min Dr. Delta Sahu MD Work Phone: [facility] 05-29-2024 12:26-0400 Respiratory rate 16 /min Dr. Delta Sahu MD Work Phone: [facility] 05-29-2024 12:26-0400 SaO2% (BldA) [Mass fraction] 96 % Dr. Delta Sahu MD Work Phone: [facility] 05-29-2024 12:26-0400 Systolic blood pressure 130 mm[Hg] Dr. Delta Sahu MD Work Phone: [facility] 04-28-2024 13:12-0500 Body height 170.[address] Delta Sahu MD Work Phone: [facility] 04-28-2024 13:12-0500 Body mass index (BMI) [Ratio] 37.9 kg/m2 Dr. Delta Sahu MD Work Phone: [facility] 04-28-2024 13:12-0500 Body temperature 96.1 [degF] Dr. Delta Sahu MD Work Phone: [facility] 04-28-2024 13:12-0500 Body weight 109.[address] Delta Sahu MD Work Phone: [facility] 04-28-2024 13:12-0500 Diastolic blood pressure 78 mm[Hg] Dr. Delta Sahu MD Work Phone: [facility] 04-28-2024 13:12-0500 Heart rate 86 /min Dr. Delta Sahu MD Work Phone: [facility] 04-28-2024 13:12-0500 Respiratory rate 16 /min Dr. Delta Sahu MD Work Phone: [facility] 04-28-2024 13:12-0500 SaO2% (BldA) [Mass fraction] 98 % Dr. Delta Sahu MD Work Phone: [facility] 04-28-2024 13:12-0500 Systolic blood pressure 124 mm[Hg] Dr. Delta Sahu MD Work Phone: [facility] 04-11-2024 13:06-0500 Body mass index (BMI) [Ratio] 38.7 kg/m2 Dr. Delta Sahu MD Work Phone: [facility] 04-11-2024 13:06-0500 Body weight 112.[address] Delta Sahu MD Work Phone: [facility] 02-21-2024 13:47-0500 Body mass index (BMI) [Ratio] 38.5 kg/m2 Dr. Delta Sahu MD Work Phone: [facility] 02-21-2024 13:47-0500 Body temperature 98.1 [degF] Dr. Delta Sahu MD Work Phone: [facility] 02-21-2024 13:47-0500 Body weight 111.[address] Delta Sahu MD Work Phone: [facility] 02-21-2024 13:47-0500 Diastolic blood pressure 84 mm[Hg] Dr. Delta Sahu MD Work Phone: [facility] 02-21-2024 13:47-0500 Heart rate 84 /min Dr. Delta Sahu MD Work Phone: [facility] 02-21-2024 13:47-0500 Respiratory rate 18 /min Dr. Delta Sahu MD Work Phone: [facility] 02-21-2024 13:47-0500 Systolic blood pressure 148 mm[Hg] Dr. Delta Sahu MD Work Phone: [facility] 06-12-2023 13:02-0400 Body height 170.[address] Delta Sahu Work Phone: [facility] 06-12-2023 13:02-0400 Body mass index (BMI) [Ratio] 38.8 kg/m2 Dr. Delta Sahu Work Phone: [facility] 06-12-2023 13:02-0400 Body weight 112.[address] Delta Sahu Work Phone: [facility] 06-12-2023 13:02-0400 Diastolic blood pressure 83 mm[Hg] Dr. Delta Sahu Work Phone: [facility] 06-12-2023 13:02-0400 Heart rate 82 /min Dr. Delta Sahu Work Phone: [facility] 06-12-2023 13:02-0400 Respiratory rate 14 /min Dr. Delta Sahu Work Phone: [facility] 06-12-2023 13:02-0400 SaO2% (BldA) [Mass fraction] 95 % Dr. Delta Sahu Work Phone: [facility] 06-12-2023 13:02-0400 Systolic blood pressure 149 mm[Hg] Dr. Delta Sahu Work Phone: [facility] 05-08-2023 14:16-0500 Body height 170.[address] Delta Sahu Work Phone: [facility] 05-08-2023 14:16-0500 Body mass index (BMI) [Ratio] 38.4 kg/m2 Dr. Delta Sahu Work Phone: [facility] 05-08-2023 14:16-0500 Body temperature 97.6 [degF] Dr. Delta Sahu Work Phone: [facility] 05-08-2023 14:16-0500 Body weight 111.[address] Delta Sahu Work Phone: [facility] 05-08-2023 14:16-0500 Diastolic blood pressure 82 mm[Hg] Dr. Delta Sahu Work Phone: [facility] 05-08-2023 14:16-0500 Heart rate 83 /min Dr. Delta Sahu Work Phone: [facility] 05-08-2023 14:16-0500 Respiratory rate 18 /min Dr. Delta Sahu Work Phone: [facility] 05-08-2023 14:16-0500 SaO2% (BldA) [Mass fraction] 97 % Dr. Delta Sahu Work Phone: [facility] 05-08-2023 14:16-0500 Systolic blood pressure 147 mm[Hg] Dr. Delta Sahu Work Phone: [facility] 05-03-2023 15:18-0500 Body height 170.[address] Delta Sahu Work Phone: [facility] 05-03-2023 15:18-0500 Body mass index (BMI) [Ratio] 38.4 kg/m2 Dr. Delta Sahu Work Phone: [facility] 05-03-2023 15:18-0500 Body temperature 97.3 [degF] Dr. Delta Sahu Work Phone: [facility] 05-03-2023 15:18-0500 Body weight 111.[address] Delta Sahu Work Phone: [facility] 05-03-2023 15:18-0500 Diastolic blood pressure 80 mm[Hg] Dr. Delta Sahu Work Phone: [facility] 05-03-2023 15:18-0500 Heart rate 78 /min Dr. Delta Sahu Work Phone: [facility] 05-03-2023 15:18-0500 Respiratory rate 18 /min Dr. Delta Sahu Work Phone: [facility] 05-03-2023 15:18-0500 SaO2% (BldA) [Mass fraction] 96 % Dr. Delta Sahu Work Phone: [facility] 05-03-2023 15:18-0500 Systolic blood pressure 138 mm[Hg] Dr. Delta Sahu Work Phone: [facility] 03-28-2023 10:47-0500 Body temperature 97.8 [degF] Dr. Delta Sahu Work Phone: [facility] 03-28-2023 10:47-0500 Diastolic blood pressure 74 mm[Hg] Dr. Delta Sahu Work Phone: [facility] 03-28-2023 10:47-0500 Heart rate 107 /min Dr. Delta Sahu Work Phone: [facility] 03-28-2023 10:47-0500 Respiratory rate 16 /min Dr. Delta Sahu Work Phone: [facility] 03-28-2023 10:47-0500 SaO2% (BldA) [Mass fraction] 98 % Dr. Delta Sahu Work Phone: [facility] 03-28-2023 10:47-0500 Systolic blood pressure 126 mm[Hg] Dr. Delta Sahu Work Phone: [facility] 03-04-2023 15:00-0500 Body temperature 98.7 [degF] Dr. Parish Plascencia Work Phone: [facility] 03-04-2023 15:00-0500 Diastolic blood pressure 71 mm[Hg] Dr. Parish Plascencia Work Phone: [facility] 03-04-2023 15:00-0500 Heart rate 86 /min Dr. Parish Plascencia Work Phone: [facility] 03-04-2023 15:00-0500 Respiratory rate 16 /min Dr. Parish Plascencia Work Phone: [facility] 03-04-2023 15:00-0500 SaO2% (BldA) [Mass fraction] 97 % Dr. Parish Plascencia Work Phone: [facility] 03-04-2023 15:00-0500 Systolic blood pressure 149 mm[Hg] Dr. Parish Plascencia Work Phone: [facility] 03-03-2023 07:41-0500 Inhaled oxygen flow rate 2 L/min Dr. Parish Plascencia Work Phone: [facility] 03-01-2023 20:34-0500 Inhaled oxygen concentration 98 % Dr. Parish Plascencia Work Phone: [facility] 03-01-2023 16:39-0500 Body height 170.[address] Parish Plascencia Work Phone: [facility] 03-01-2023 16:39-0500 Body mass index (BMI) [Ratio] 36.9 kg/m2 Dr. Parish Plascencia Work Phone: [facility] 03-01-2023 16:39-0500 Body weight [address] Parish Plascencia Work Phone: [facility] 02-01-2023 13:00-0500 Body weight 106.[address] Parish Plascencia Work Phone: [facility] 02-01-2023 13:00-0500 Heart rate 85 /min Dr. Parish Plascencia Work Phone: [facility] 02-01-2023 13:00-0500 SaO2% (BldA) [Mass fraction] 95 % Dr. Parish Plascencia Work Phone: [facility] 01-19-2023 08:34-0500 Body height 170.[address] Delta Sahu Work Phone: [facility] 01-19-2023 08:34-0500 Body mass index (BMI) [Ratio] 37.3 kg/m2 Dr. Delta Sahu Work Phone: [facility] 01-19-2023 08:34-0500 Body temperature 96.1 [degF] Dr. Delta Sahu Work Phone: [facility] 01-19-2023 08:34-0500 Body weight 107.[address] Delta Sahu Work Phone: [facility] 01-19-2023 08:34-0500 Diastolic blood pressure 79 mm[Hg] Dr. Delta Sahu Work Phone: [facility] 01-19-2023 08:34-0500 Heart rate 74 /min Dr. Delta Sahu Work Phone: [facility] 01-19-2023 08:34-0500 Respiratory rate 20 /min Dr. Delta Sahu Work Phone: [facility] 01-19-2023 08:34-0500 SaO2% (BldA) [Mass fraction] 97 % Dr. Delta Sahu Work Phone: [facility] 01-19-2023 08:34-0500 Systolic blood pressure 156 mm[Hg] Dr. Delta Sahu Work Phone: [facility] 01-16-2023 13:02-0500 Diastolic blood pressure 97 mm[Hg] Dr. Delta Sahu Work Phone: [facility] 01-16-2023 13:02-0500 Systolic blood pressure 163 mm[Hg] Dr. Delta Sahu Work Phone: [facility] 12-20-2022 10:57-0400 Body height 170.[address] Parish Plascencia Work Phone: [facility] 12-20-2022 10:57-0400 Body mass index (BMI) [Ratio] 37.4 kg/m2 Dr. Parish Plascencia Work Phone: [facility] 12-20-2022 10:57-0400 Body temperature 99 [degF] Dr. Parish Plascencia Work Phone: [facility] 12-20-2022 10:57-0400 Body weight 108.[address] Parish Plascencia Work Phone: [facility] 12-20-2022 10:57-0400 Diastolic blood pressure 80 mm[Hg] Dr. Parish Plascencia Work Phone: [phone] [place] [address] 12-20-2022 10:57-0400 Heart rate 73 /min Dr. Parish Plascencia Work Phone: [phone] [place] [address] 12-20-2022 10:57-0400 Respiratory rate 16 /min Dr. Parish Plascencia Work Phone: [facility] 12-20-2022 10:57-0400 SaO2% (BldA) [Mass fraction] 97 % Dr. Parish Plascencia Work Phone: 2(951)758-950249 [place] [address] 12-20-2022 10:57-0400 Systolic blood pressure 144 mm[Hg] Dr. Parish Plascencia Work Phone: 7(308)244-609849 [place] [address] 11-08-2022 10:23-0400 Body mass index (BMI) [Ratio] 36.9 kg/m2 Dr. Parish Plascencia Work Phone: 9(134)[phone] [place] [address] 11-08-2022 10:23-0400 Body weight 107.[address] Parish Plascencia Work Phone: 7(724)248-563149 [place] [address] 11-08-2022 10:23-0400 Diastolic blood pressure 75 mm[Hg] Dr. Parish Plascencia Work Phone: 3(426)943-653449 [place] [address] 11-08-2022 10:23-0400 Heart rate 76 /min Dr. Parish Plascencia Work Phone: 2(646)256-874349 [place] [address] 11-08-2022 10:23-0400 Respiratory rate 20 /min Dr. Parish Plascencia Work Phone: 6(331)027-822949 [place] [address] 11-08-2022 10:23-0400 SaO2% (BldA) [Mass fraction] 96 % Dr. Parish Plascencia Work Phone: 6(801)268-186349 [place] [address] 11-08-2022 10:23-0400 Systolic blood pressure 116 mm[Hg] Dr. Parish Plascencia Work Phone: [facility] 11-02-2022 14:15-0400 Body mass index (BMI) [Ratio] 37 kg/m2 Dr. Parish Plascencia Work Phone: [facility] 11-02-2022 14:15-0400 Body temperature 97.6 [degF] Dr. Parish Plascencia Work Phone: [facility] 11-02-2022 14:15-0400 Body weight 107.[address] Parish Plascencia Work Phone: [facility] 11-02-2022 14:15-0400 Diastolic blood pressure 84 mm[Hg] Dr. Parish Plascencia Work Phone: [facility] 11-02-2022 14:15-0400 Heart rate 103 /min Dr. Parish Plascencia Work Phone: [facility] 11-02-2022 14:15-0400 Respiratory rate 20 /min Dr. Parish Plascencia Work Phone: [facility] 11-02-2022 14:15-0400 SaO2% (BldA) [Mass fraction] 96 % Dr. Parish Plascencia Work Phone: [facility] 11-02-2022 14:15-0400 Systolic blood pressure 134 mm[Hg] Dr. Parish Plascencia Work Phone: [facility] 09-14-2022 14:41-0400 Body height 170.[address] Parish Plascencia Work Phone: [facility] 09-14-2022 14:41-0400 Body mass index (BMI) [Ratio] 37.5 kg/m2 Dr. Parish Plascencia Work Phone: [facility] 09-14-2022 14:41-0400 Body temperature 96.9 [degF] Dr. Parish Plascencia Work Phone: [facility] 09-14-2022 14:41-0400 Body weight 108.[address] Parish Plascencia Work Phone: [facility] 09-14-2022 14:41-0400 Diastolic blood pressure 88 mm[Hg] Dr. Parish Plascencia Work Phone: [facility] 09-14-2022 14:41-0400 Heart rate 114 /min Dr. Parish Plascencia Work Phone: [facility] 09-14-2022 14:41-0400 Respiratory rate 18 /min Dr. Parish Plascencia Work Phone: [facility] 09-14-2022 14:41-0400 SaO2% (BldA) [Mass fraction] 95 % Dr. Parish Plascencia Work Phone: [facility] 09-14-2022 14:41-0400 Systolic blood pressure 144 mm[Hg] Dr. Parish Plascencia Work Phone: [facility] 02-09-2022 14:37-0500 Reason For Taking VItal Signs DAVID BENJAMIN DO [facility] 02-09-2022 11:58-0500 Body temperature 97.52 [degF] DAVID BENJAMIN DO [facility] 02-09-2022 11:58-0500 Diastolic Blood Pressure Non-Invasive 85 1 DAVID BENJAMIN DO [facility] 02-09-2022 11:58-0500 Heart rate 92 /min DAVID BENJAMIN DO [facility] 02-09-2022 11:58-0500 Reason For Taking VItal Signs DAVID BENJAMIN DO [facility] 02-09-2022 11:58-0500 Respiratory rate 16 /min DAVID BENJAMIN DO [facility] 02-09-2022 11:58-0500 Systolic Blood Pressure Non-Invasive 151 1 DAVID BENJAMIN DO [facility] 02-09-2022 09:27-0500 Heart rate 88 /min DAVID BENJAMIN DO [facility] 02-09-2022 09:27-0500 Respiratory rate 16 /min DAVID BENJAMIN DO [facility] 02-09-2022 09:24-0500 Body temperature 98.24 [degF] DAVID BENJAMIN DO [facility] 02-09-2022 09:24-0500 Diastolic Blood Pressure Non-Invasive 94 1 DAVID BENJAMIN DO [facility] 02-09-2022 09:24-0500 Heart rate 99 /min DAVID BENJAMIN DO [facility] 02-09-2022 09:24-0500 Reason For Taking VItal Signs DAVID BENJAMIN DO [facility] 02-09-2022 09:24-0500 Respiratory rate 16 /min DAVID BENJAMIN DO [facility] 02-09-2022 09:24-0500 Systolic Blood Pressure Non-Invasive 180 1 DAVID BENJAMIN DO [facility] 02-09-2022 08:50-0500 Heart rate 92 /min DAVID BENJAMIN DO [facility] 02-09-2022 03:41-0500 Body temperature 98.24 [degF] DAVID BENJAMIN DO [facility] 02-09-2022 03:41-0500 Diastolic Blood Pressure Non-Invasive 80 1 DAVID BENJAMIN DO [facility] 02-09-2022 03:41-0500 Heart rate 99 /min DAVID BENJAMIN DO [facility] 02-09-2022 03:41-0500 Systolic Blood Pressure Non-Invasive 139 1 DAVID BENJAMIN DO [facility] 02-08-2022 14:00-0500 Body weight 48.5 kg/m2 DAVID BENJAMIN DO [facility] 02-08-2022 12:05-0500 Body temperature 96.98 [degF] DAVID BENJAMIN DO [facility] 02-08-2022 11:55-0500 Respiratory Rate - Anes 14 br/min DAVID BENJAMIN DO [facility] 02-08-2022 11:50-0500 Respiratory Rate - Anes 2 br/min DAVID BENJAMIN DO [facility] 02-08-2022 11:45-0500 Body temperature 97.23 [degF] DAVID BENJAMIN DO [facility] 02-08-2022 11:45-0500 Respiratory Rate - Anes 3 br/min DAVID BENJAMIN DO [facility] 02-08-2022 11:40-0500 Body temperature 97.09 [degF] DAVID BENJAMIN DO [facility] 02-08-2022 11:35-0500 Body temperature 96.98 [degF] DAVID BENJAMIN DO [facility] 02-08-2022 08:46-0500 Blood Pressure Location DAVID BENJAMIN DO [facility] 02-08-2022 08:46-0500 Blood Pressure Method DAVID BENJAMIN DO [facility] 02-08-2022 08:46-0500 Body height 170.2 cm DAVID BENJAMIN DO [facility] 02-08-2022 08:46-0500 Body temperature 97.7 [degF] DAVID BENJAMIN DO [facility] 02-08-2022 08:46-0500 Body weight 140.5 kg DAVID BENJAMIN DO [facility] 02-08-2022 08:46-0500 Heart rate 89 /min DAVID BENJAMIN DO [facility] 01-25-2022 13:10-0500 Body height 170.2 cm DAVID BENJAMIN DO [facility] 01-25-2022 13:10-0500 Body weight 104.5 kg DAVID BENJAMIN DO [facility] 01-25-2022 13:10-0500 Body weight 36.07 kg/m2 DAVID BENJAMIN DO [facility] 01-25-2022 13:10-0500 diastolic 80 mm[Hg] DAVID BENJAMIN DO [facility] 01-25-2022 13:10-0500 Heart rate 91 /min DAVID BENJAMIN DO [facility] 01-25-2022 13:10-0500 Respiratory rate 20 /min DAVID BENJAMIN DO [facility] 01-25-2022 13:10-0500 systolic 124 mm[Hg] DAVID BENJAMIN DO [facility] 01-06-2022 07:33-0400 Body height 170.[address] Parish Plascencia Work Phone: [facility] Work Phone: 01-06-2022 07:33-0400 Body mass index (BMI) [Ratio] 36.1 kg/m2 Dr. Parish Plascencia Work Phone: [facility] Work Phone: 01-06-2022 07:33-0400 Body temperature 97.4 [degF] Dr. Parish Plascencia Work Phone: [facility] Work Phone: 01-06-2022 07:33-0400 Body weight 104.[address] Parish Plascencia Work Phone: [facility] Work Phone: 01-06-2022 07:33-0400 Diastolic blood pressure 76 mm[Hg] Dr. Parish Plascencia Work Phone: [facility] Work Phone: 01-06-2022 07:33-0400 Heart rate 87 /min Dr. Parish Plascencia Work Phone: [facility] Work Phone: 01-06-2022 07:33-0400 Respiratory rate 17 /min Dr. Parish Plascencia Work Phone: [facility] Work Phone: 01-06-2022 07:33-0400 SaO2% (BldA) [Mass fraction] 97 % Dr. Parish Plascencia Work Phone: [facility] Work Phone: 01-06-2022 07:33-0400 Systolic blood pressure 126 mm[Hg] Dr. Parish Plascencia Work Phone: [facility] Work Phone: 09-12-2021 09:32-0400 Body mass index (BMI) [Ratio] 36 kg/m2 Dr. Parish Plascencia Work Phone: [facility] Work Phone: 09-12-2021 09:32-0400 Body temperature 97.4 [degF] Dr. Parish Plascencia Work Phone: [facility] Work Phone: 09-12-2021 09:32-0400 Diastolic blood pressure 80 mm[Hg] Dr. Parish Plascencia Work Phone: [facility] Work Phone: 09-12-2021 09:32-0400 Heart rate 74 /min Dr. Parish Plascencia Work Phone: [facility] Work Phone: 09-12-2021 09:32-0400 Systolic blood pressure 180 mm[Hg] Dr. Parish Plascencia Work Phone: [facility] Work Phone: 09-02-2021 00:24-0400 Body weight 104.[address] Parish Plascencia Work Phone: [facility] Work Phone: 09-02-2021 00:24-0400 Respiratory rate 18 /min Dr. Parish Plascencia Work Phone: [facility] Work Phone: 08-29-2021 09:27-0400 Body mass index (BMI) [Ratio] 36 kg/m2 Dr. Parish Plascencia Work Phone: [facility] Work Phone: 08-29-2021 09:27-0400 Body temperature 96.2 [degF] Dr. Parish Plascencia Work Phone: [facility] Work Phone: 08-29-2021 09:27-0400 Diastolic blood pressure 94 mm[Hg] Dr. Parish Plascencia Work Phone: [facility] Work Phone: 08-29-2021 09:27-0400 Heart rate 80 /min Dr. Parish Plascencia Work Phone: [facility] Work Phone: 08-29-2021 09:27-0400 Respiratory rate 18 /min Dr. Parish Plascencia Work Phone: [facility] Work Phone: 08-29-2021 09:27-0400 Systolic blood pressure 159 mm[Hg] Dr. Parish Plascencia Work Phone: [facility] Work Phone: 08-09-2021 13:16-0400 Body mass index (BMI) [Ratio] 36 kg/m2 Dr. Parish Plascencia Work Phone: [facility] Work Phone: 08-09-2021 13:16-0400 Body temperature 97.2 [degF] Dr. Parish Plascencia Work Phone: [facility] Work Phone: 08-09-2021 13:16-0400 Diastolic blood pressure 62 mm[Hg] Dr. Parish Plascencia Work Phone: [facility] Work Phone: 08-09-2021 13:16-0400 Heart rate 59 /min Dr. Parish Plascencia Work Phone: [facility] Work Phone: 08-09-2021 13:16-0400 Systolic blood pressure 143 mm[Hg] Dr. Parish Plascencia Work Phone: [facility] Work Phone: 08-03-2021 00:37-0400 Body weight 104.[address] Parish Plascencia Work Phone: [facility] Work Phone: 08-03-2021 00:37-0400 Respiratory rate 18 /min Dr. Parish Plascencia Work Phone: [facility] Work Phone: 08-02-2021 13:27-0400 Body mass index (BMI) [Ratio] 36 kg/m2 Dr. Parish Plascencia Work Phone: [facility] Work Phone: 08-02-2021 13:27-0400 Body temperature 97.2 [degF] Dr. Parish Plascencia Work Phone: [facility] Work Phone: 08-02-2021 13:27-0400 Diastolic blood pressure 85 mm[Hg] Dr. Parish Plascencia Work Phone: [facility] Work Phone: 08-02-2021 13:27-0400 Heart rate 80 /min Dr. Parish Plascencia Work Phone: [facility] Work Phone: 08-02-2021 13:27-0400 Respiratory rate 18 /min Dr. Parish Plascencia Work Phone: [facility] Work Phone: 08-02-2021 13:27-0400 Systolic blood pressure 165 mm[Hg] Dr. Parish Plascencia Work Phone: [facility] Work Phone: 07-13-2021 10:38-0400 Diastolic blood pressure 81 mm[Hg] Dr. Parish Plascencia Work Phone: [facility] Work Phone: 07-13-2021 10:38-0400 Heart rate 88 /min Dr. Parish Plascencia Work Phone: [facility] Work Phone: 07-13-2021 10:38-0400 Systolic blood pressure 149 mm[Hg] Dr. Parish Plascencia Work Phone: [facility] Work Phone: 07-13-2021 10:38-0400 Diastolic blood pressure 81 mm[Hg] Dr. Parish Plascencia Work Phone: [facility] Work Phone: 07-13-2021 10:38-0400 Heart rate 88 /min Dr. Parish Plascencia Work Phone: [facility] Work Phone: 07-13-2021 10:38-0400 Systolic blood pressure 149 mm[Hg] Dr. Parish Plascencia Work Phone: [facility] Work Phone: 07-13-2021 10:37-0400 Body height 170.[address] Parish Plascencia Work Phone: [facility] Work Phone: 07-13-2021 10:37-0400 Body mass index (BMI) [Ratio] 37 kg/m2 Dr. Parish Plascencia Work Phone: [facility] Work Phone: 07-13-2021 10:37-0400 Body weight 107.[address] Parish Plascencia Work Phone: [facility] Work Phone: 07-13-2021 10:37-0400 Respiratory rate 18 /min Dr. Parish Plascencia Work Phone: [facility] Work Phone: 07-13-2021 10:37-0400 Body height 170.[address] Parish Plascencia Work Phone: [facility] Work Phone: 07-13-2021 10:37-0400 Body mass index (BMI) [Ratio] 37 kg/m2 Dr. Parish Palscencia Work Phone: [facility] Work Phone: 07-13-2021 10:37-0400 Body weight 107.[address] Parish Plascencia Work Phone: [facility] Work Phone: 07-13-2021 10:37-0400 Respiratory rate 18 /min Dr. Parish Plascencia Work Phone: [facility] Work Phone: 07-03-2021 00:23-0400 Body weight 104.[address] Parish Plascencia Work Phone: [facility] Work Phone: 06-27-2021 09:41-0400 Body mass index (BMI) [Ratio] 36 kg/m2 Dr. Parish Plascencia Work Phone: [facility] Work Phone: 06-27-2021 09:41-0400 Body temperature 98.2 [degF] Dr. Parish Plascencia Work Phone: [facility] Work Phone: 06-27-2021 09:41-0400 Diastolic blood pressure 89 mm[Hg] Dr. Parish Plascencia Work Phone: [facility] Work Phone: 06-27-2021 09:41-0400 Heart rate 82 /min Dr. Parish Plascencia Work Phone: [facility] Work Phone: 06-27-2021 09:41-0400 Respiratory rate 20 /min Dr. Parish Plascencia Work Phone: [facility] Work Phone: 06-27-2021 09:41-0400 Systolic blood pressure 159 mm[Hg] Dr. Parish Plascencia Work Phone: [facility] Work Phone: 06-20-2021 09:38-0400 Body mass index (BMI) [Ratio] 36 kg/m2 Dr. Parish Plascencia Work Phone: [facility] Work Phone: 06-20-2021 09:38-0400 Body temperature 98.1 [degF] Dr. Parish Plascencia Work Phone: [facility] Work Phone: 06-20-2021 09:38-0400 Diastolic blood pressure 77 mm[Hg] Dr. Parish Plascencia Work Phone: [facility] Work Phone: 06-20-2021 09:38-0400 Heart rate 77 /min Dr. Parish Plascencia Work Phone: [facility] Work Phone: 06-20-2021 09:38-0400 Respiratory rate 20 /min Dr. Parish Plascencia Work Phone: [facility] Work Phone: 06-20-2021 09:38-0400 Systolic blood pressure 135 mm[Hg] Dr. Parish Plascencia Work Phone: [facility] Work Phone: 06-03-2021 00:23-0400 Body weight 104.[address] Parish Plascencia Work Phone: [facility] Work Phone: 05-30-2021 09:16-0400 Body mass index (BMI) [Ratio] 36 kg/m2 Dr. Parish Plascencia Work Phone: [facility] Work Phone: 05-30-2021 09:16-0400 Body temperature 97 [degF] Dr. Parish Plascencia Work Phone: [facility] Work Phone: 05-30-2021 09:16-0400 Diastolic blood pressure 82 mm[Hg] Dr. Parish Plascencia Work Phone: [facility] Work Phone: 05-30-2021 09:16-0400 Heart rate 84 /min Dr. Parish Plascencia Work Phone: [facility] Work Phone: 05-30-2021 09:16-0400 Respiratory rate 16 /min Dr. Parish Plascencia Work Phone: [facility] Work Phone: 05-30-2021 09:16-0400 Systolic blood pressure 145 mm[Hg] Dr. Parish Plascencia Work Phone: [facility] Work Phone: 05-03-2021 00:21-0500 Body weight 104.[address] Parish Plascencia Work Phone: [facility] Work Phone: 05-02-2021 23:21-0500 Body weight 104.[address] Parish Plascencia Work Phone: [facility] Work Phone: 05-02-2021 08:27-0500 Body mass index (BMI) [Ratio] 36 kg/m2 Dr. Parish Plascencia Work Phone: [facility] Work Phone: 05-02-2021 08:27-0500 Body temperature 97.6 [degF] Dr. Parish Plascencia Work Phone: [facility] Work Phone: 05-02-2021 08:27-0500 Diastolic blood pressure 107 mm[Hg] Dr. Parish Plascencia Work Phone: [facility] Work Phone: 05-02-2021 08:27-0500 Heart rate 77 /min Dr. Parish Plascencia Work Phone: [facility] Work Phone: 05-02-2021 08:27-0500 Respiratory rate 16 /min Dr. Parish Plascencia Work Phone: [facility] Work Phone: 05-02-2021 08:27-0500 Systolic blood pressure 151 mm[Hg] Dr. Parish Plascencia Work Phone: [facility] Work Phone: 04-13-2021 12:44-0500 Body height 170.[address] Parish Plascencia Work Phone: [facility] Work Phone: 04-13-2021 12:44-0500 Body mass index (BMI) [Ratio] 36.8 kg/m2 Dr. Parish Plascencia Work Phone: [facility] Work Phone: 04-13-2021 12:44-0500 Body weight 106.[address] Parish Plascencia Work Phone: [facility] Work Phone: 04-13-2021 12:44-0500 Diastolic blood pressure 100 mm[Hg] Dr. Parish Plascencia Work Phone: [facility] Work Phone: 04-13-2021 12:44-0500 Heart rate 76 /min Dr. Parish Plascencia Work Phone: [facility] Work Phone: 04-13-2021 12:44-0500 Respiratory rate 16 /min Dr. Parish Plascencia Work Phone: [facility] Work Phone: 04-13-2021 12:44-0500 Systolic blood pressure 172 mm[Hg] Dr. Parish Plascencia Work Phone: [facility] Work Phone: 04-04-2021 23:19-0500 Body weight 104.[address] Parish Plascencia Work Phone: [facility] Work Phone: 03-31-2021 10:00-0500 Body mass index (BMI) [Ratio] 36 kg/m2 Dr. Parish Plascencia Work Phone: [facility] Work Phone: 03-31-2021 10:00-0500 Body temperature 99.3 [degF] Dr. Parish Plascencia Work Phone: [facility] Work Phone: 03-14-2021 08:32-0500 Diastolic blood pressure 77 mm[Hg] Dr. Parish Plascencia Work Phone: [facility] Work Phone: 03-14-2021 08:32-0500 Heart rate 115 /min Dr. Parish Plascencia Work Phone: [facility] Work Phone: 03-14-2021 08:32-0500 Respiratory rate 16 /min Dr. Parish Plascencia Work Phone: [facility] Work Phone: 03-14-2021 08:32-0500 Systolic blood pressure 138 mm[Hg] Dr. Parish Plascencia Work Phone: [facility] Work Phone: 03-04-2021 23:14-0500 Body weight 104.[address] Parish Plascencia Work Phone: [facility] Work Phone: 02-28-2021 08:48-0500 Body mass index (BMI) [Ratio] 36 kg/m2 Dr. Parish Plascencia Work Phone: [facility] Work Phone: 02-28-2021 08:48-0500 Diastolic blood pressure 79 mm[Hg] Dr. Parish Plascencia Work Phone: [facility] Work Phone: 02-28-2021 08:48-0500 Heart rate 90 /min Dr. Parish Plascencia Work Phone: [facility] Work Phone: 02-28-2021 08:48-0500 Respiratory rate 16 /min Dr. Parish Plascencia Work Phone: [facility] Work Phone: 02-28-2021 08:48-0500 Systolic blood pressure 143 mm[Hg] Dr. Parish Plascencia Work Phone: [facility] Work Phone: 02-21-2021 08:30-0500 Body temperature 97.2 [degF] Dr. Parish Plascencia Work Phone: [facility] Work Phone: 02-01-2021 23:12-0500 Body weight 104.[address] Parish Plascencia Work Phone: [facility] Work Phone: Encounters Encounter Date Encounter Type Care Provider Facility Start: 02-10-2025 ambulatory Delta Russell ty:[facility] Start: 01-08-2025 ambulatory Christopher Kruger Facility: [facility] Start: 11-05-2024 End: 12-02-[address] Delta Sahu MD -Nutritional Services Work Phone: Start: 11-05-[address] Kamaljit Sahu MD -Nutritional Services Work Phone: Start: 11-05-2024 End: 12-02-[address] Delta Sahu MD Work Phone: -Nutritional Services Start: 11-01-2024 End: 11-01-[address] Delta Sahu MD Work Phone: -Laboratory Start: 11-01-2024 End: 11-01-2024 Patient encounter procedure Genaro Heath PA -Laboratory Work Phone: Start: 10-31-2024 End: 10-31-[address] Delta Sahu MD -[facility] Work Phone: Start: 10-31-2024 End: 11-01-[address] Delta Sahu MD Work Phone: -[facility] Start: 09-30-2024 End: 10-02-[address] Delta Sahu MD -Nutritional Services Work Phone: Start: 09-30-2024 End: 10-02-[address] Delta Sahu MD Work Phone: -Nutritional Services Start: 09-26-2024 End: 09-26-[address] Delta Sahu MD Work Phone: -Physical Therapy Start: 09-26-2024 End: 09-26-2024 Discharged Recurring Ray Eshenaur PA-C -Physical Therapy Work Phone: Start: 09-26-2024 Registered Recurring Ray Eshenaur PA -C -Physical Therapy Work Phone: Start: 09-02-2024 End: 09-02-[address] Delta Sahu MD Work Phone: -[facility] Start: 09-02-2024 End: 09-02-2024 Patient encounter procedure Meg Gusman MANAGER [employer]-C -[facility] Work Phone: Start: 08-22-2024 Non-patient / Non-visit Dr. Cathi Sahu MD -[facility] Start: 08-22-[address] Delta Sahu MD Work Phone: [facility] Work Phone: Start: 08-21-2024 ambulatory DELTA SAHU MD F acility:[facility] Start: 08-13-2024 ambulatory DELTA SAHU MD F acility:[facility] Start: 07-30-2024 End: 07-30-[address] Delta Sahu MD -[facility] Work Phone: Start: 07-30-2024 End: 07-30-[address] Delta Sahu MD Work Phone: [facility] Work Phone: Start: 07-29-2024 End: 07-29-[address] Christopher Lema MD -[facility] Work Phone: Start: 07-29-2024 End: 07-30-[address] Delta Sahu MD Work Phone: [facility] Work Phone: Start: 07-23-2024 Registered Recurring Ray Eshenaur PA -C -Physical Therapy Work Phone: Start: 07-22-2024 End: 07-22-[address] Carla Hay DO -[facility] Work Phone: Start: 07-22-2024 End: 07-22-[address] Delta Sahu MD Work Phone: [facility] Work Phone: Start: 07-18-2024 Registered Recurring Wilber Jim -Physical Therapy Work Phone: Start: 07-08-2024 End: 07-08-2024 Patient encounter procedure Genaro HALL -[facility] Work Phone: Start: 07-08-2024 End: 07-08-2024 ambulatory Genaro Heath Facility[place] Start: 07-02-2024 ambulatory Malachi Moseley ility:[facility] Start: 07-02-2024 Non-patient / Non-visit Dr. Mariama Butler MD -[facility] Work Phone: Start: 07-02-2024 End: 07-02-2024 [facility] Work [facility]: Start: 06-24-2024 End: 06-25-[address] CHRISTOPHER KRUGER MD Facility:[facility] Start: 06-24-2024 End: 06-25-[address] CHRISTOPHER KRUGER MD [facility] Start: 06-16-2024 End: 06-16-[address] Delta Sahu MD Work Phone: [facility] Work Phone: Start: 06-16-2024 End: 06-16-[address] Delta Sahu MD -Ultrasound, [facility] Work Phone: Start: 06-16-2024 End: 06-16-2024 ambulatory [facility] Facility:[facility] Start: 06-06-2024 End: 06-06-[address] Delta Sahu MD -[facility] Work Phone: Start: 06-06-2024 End: 06-06-2024 ambulatory [facility] Facility:[facility] Start: 06-06-2024 ambulatory [facility] ty:[facility] Start: 06-04-2024 End: 06-04-[address] Delta Sahu MD Work Phone: [facility] Work Phone: Start: 06-04-2024 End: 06-04-[address] Christopher Kruger MD -Laboratory Work Phone: Start: 06-03-2024 End: 06-04-[address] Delta Sahu MD Work Phone: [facility] Work Phone: Start: 06-03-2024 End: 06-03-[address] Delta Sahu MD -Radiology, [facility] Work Phone: Start: 06-03-2024 End: 06-03-2024 ambulatory [facility] Facility:[facility] Start: 05-29-[address] Alonso Sahu MD Work Phone: [facility] Start: 05-29-[address] Delta Sahu MD Work Phone: [facility] Start: 05-29-2024 End: 05-29-2024 Patient encounter procedure Gavin HALL -[facility] Work Phone: Start: 05-29-2024 End: 05-29-2024 Patient encounter status Gavin HALL [facility] Start: 05-29-2024 End: 05-29-2024 ambulatory Delta Sahu Facility:[facility] Start: 05-28-2024 End: 05-28-2024 ambulatory DELTA SAHU MD Facility:[facility] Start: 05-28-2024 End: 05-28-2024 ambulatory DELTA SAHU MD Facility:[facility] Start: 05-27-2024 End: 05-27-[address] Corona Batres MD -[facility] Work Phone: Start: 05-27-2024 End: 05-27-2024 ambulatory Corona Batres Facility:[facility] Start: 05-13-2024 End: 05-13-[address] Delta Sahu MD Work Phone: [facility] Work Phone: Start: 05-13-2024 End: 05-13-[address] Corona Batres MD -[facility] Work Phone: Start: 05-13-2024 End: 05-13-2024 ambulatory Corona Batres Facility:[facility] Start: 04-28-2024 End: 04-28-[address] Delta Sahu MD -[facility] Work Phone: Start: 04-28-2024 End: 04-28-2024 ambulatory Delta Sahu Facility:[facility] Start: 04-28-2024 End: 04-28-2024 [facility] Start: 04-17-2024 End: 04-17-[address] Delta Sahu MD -Outpatient Bone Densitometry Work Phone: Start: 04-17-2024 End: 04-17-2024 ambulatory [facility] Facility:[facility] Start: 04-11-2024 End: 04-11-[address] Corona Batres MD -[facility] Work Phone: Start: 04-11-2024 End: 04-11-2024 ambulatory Corona Batres Facility:[facility] Start: 03-14-2024 ambulatory Dragan Sheets Facility:[facility] Start: 02-21-2024 End: 02-21-[address] Dragan Sheets MD -[facility] Work Phone: Start: 02-21-2024 End: 02-21-2024 ambulatory Dragan Sheets Facility:[facility] Start: 01-21-[address] Alonso Sahu MD Work Phone: [facility] Start: 01-21-2024 End: 01-21-2024 ambulatory [facility] Facility:[facility] Start: 01-21-2024 End: 01-21-2024 ambulatory [facility] Facility:[facility] Start: 06-22-2023 End: 06-22-[address] Delta Sahu Work Phone: [facility] Work Phone: Start: 06-22-2023 End: 06-22-[address] Delta Sahu Work Phone: [facility]-Sleep Lab Work Phone: Start: 06-12-2023 End: 06-12-[address] Delta Sahu Work Phone: [facility] Work Phone: Start: 05-29-2023 End: 05-29-[address] Delta Sahu Work Phone: [facility] Work Phone: Start: 05-29-2023 End: 05-29-[address] Delta Sahu Work Phone: [facility]-Sleep Lab Work Phone: Start: 05-08-2023 End: 05-08-[address] Delta Sahu Work Phone: [facility] Work Phone: Start: 05-03-2023 End: 05-03-[address] Delta Sahu Work Phone: [facility] Work Phone: Start: 05-03-2023 End: 05-03-[address] Delta Sahu Work Phone: [facility]-Laboratory, Specimen Work Phone: Start: 05-03-2023 End: 05-03-[address] Delta Sahu Work Phone: [facility] Work Phone: Start: 03-28-2023 End: 03-28-[address] Delta Sahu Work Phone: [facility] Work Phone: Start: 03-01-2023 Non-patient / Non-visit Dr. Pio Plascencia Work Phone: [facility] Inpatient Physicians Work Phone: Start: 03-01-2023 End: 03-04-2023 Evaluation and management of inpatient Dr. Parish Plascencia Work Phone: [facility]-Medical Surgical 3 Work Phone: Start: 03-01-2023 End: 03-04-[address] Parish Plascencia Work Phone: [facility] Work Phone: Start: 02-05-2023 End: 02-05-2023 Non-patient / Non-visit Dr. Parish Plascencia Work Phone: [facility] Work Phone: Start: 02-02-2023 Non-patient / Non-visit [facility] Start: 02-01-2023 End: 02-01-[address] Parish Plascencia Work Phone: [facility]-Pulmonary Services/Neurology Work Phone: Start: 01-23-2023 Non-patient / Non-visit Dr. Cathi Sahu Work Phone: [facility] Start: 01-23-2023 End: 01-23-[address] Delta Sahu Work Phone: [facility] Work Phone: Start: 01-23-2023 End: 01-23-[address] Delta Sahu Work Phone: [facility]-Pulmonary Services/Neurology Work Phone: Start: 01-19-2023 End: 01-19-[address] Delta Sahu Work Phone: [facility]-Pulmonary Medicine [facility] Work Phone: Start: 01-16-2023 End: 01-16-[address] Delta Sahu Work Phone: [facility] Work Phone: Start: 12-20-[address] Kristian Plascencia Work Phone: [facility] Start: 12-20-2022 End: 12-20-[address] Parish Plascencia Work Phone: [facility] Work Phone: Start: 12-20-2022 End: 12-20-[address] Parish Plascencia Work Phone: [facility]-Laboratory, [facility] Start: 12-20-2022 End: 12-20-2022 Emergency department patient visit Dr. Parish Plascencia Work Phone: [facility] Start: 12-20-2022 End: 12-20-[address] Parish Plascencia Work Phone: [facility] Work Phone: Start: 11-08-2022 End: 11-08-[address] Parish Plascencia Work Phone: [facility] Work Phone: Start: 11-02-2022 End: 11-02-[address] Parish Plascencia Work Phone: [facility] Work Phone: Start: 10-17-2022 End: 10-17-[address] Parish Plascencia Work Phone: [facility] Work Phone: Start: 10-17-2022 End: 10-17-[address] Parish Plascencia Work Phone: [facility] Work Phone: Start: 09-14-2022 End: 09-14-[address] Parish Plascencia Work Phone: [facility] Work Phone: Start: 09-14-2022 End: 09-14-[address] Parish Plascencia Work Phone: [facility] [place] Start: 09-14-2022 End: 09-14-[address] Parish Plascencia Work Phone: [facility] Work Phone: Start: 08-02-2022 End: 08-02-2022 ambulatory [facility] Work Phone: Start: 08-02-2022 End: 08-02-2022 Patient encounter procedure [facility] Office 3rd Flr Start: 02-13-2022 Non-patient / Non-visit Dr. Pio Plascencia Work Phone: [facility] Start: 02-13-2022 End: 02-13-[address] Parish Plascencia Work Phone: [facility] Work Phone: Start: 02-13-2022 End: 02-13-[address] Parish Plascencia Work Phone: [facility]-Cardiovascula r Services Start: 02-08-2022 End: 02-09-[address] GENTRY PLASCENCIA MD. Facility:[facility] Start: 02-08-2022 End: 02-09-2022 Observation DAVID BENJAMIN DO [facility] Start: 01-27-2022 End: 01-27-[address] Parish Plascencia Work Phone: [facility] Work Phone: Start: 01-27-2022 End: 01-27-[address] Parish Plascencia Work Phone: [facility]-Laboratory Start: 01-25-2022 End: 01-26-[address] GENTRY PLASCENCIA MD. Facility:[facility] Start: 01-25-2022 End: 01-25-2022 Admission to establishment DAVID BENJAMIN [facility] Start: 01-19-2022 End: 01-19-[address] Parish Plascencia Work Phone: [facility] Work Phone: Start: 01-19-2022 End: 01-19-[address] Parish [facility]ascencia [facility] Start: 01-17-2022 Non-patient / Non-visit Dr. Pio Plascencia Work Phone: [facility] Start: 01-17-2022 End: 01-17-[address] Parish Plascencia Work Phone: [facility] Work Phone: Start: 01-17-2022 End: 01-17-[address] Parish Plascencia Work Phone: [facility]-Cardiovascula r Services Start: 01-06-2022 End: 01-06-[address] Parish Plascencia Work Phone: [facility] Work Phone: Start: 01-06-2022 End: 01-06-[address] Parish Plascencia Work Phone: [facility]-Laboratory, Specimen Start: 01-06-2022 End: 01-06-[address] Parish Plascencia Work Phone: [facility] Start: 12-26-2021 End: 12-26-[address] Parish Plascencia Work Phone[facility] Start: 12-21-2021 End: 12-21-[address] Parish Plascencia Work Phone: [facility] Work Phone: Start: 12-21-2021 End: 12-21-[address] Parish Plascencia Work Phone: [facility]-Laboratory, Phy Office 3rd Flr Start: 11-18-2021 End: 11-18-[address] Parish Plascencia Work Phone: [facility] Work Phone: Start: 11-18-2021 End: 11-18-[address] Parish Plascencia Work Phone: [facility]-Radiology, [facility] Start: 09-12-2021 Non-patient / Non-visit Dr. Pio Plascencia Work Phone: [facility] Start: 09-12-2021 End: 09-12-[address] Parish Plascencia Work Phone: [facility] Start: 08-29-2021 Non-patient / Non-visit Dr. Pio Plascencia Work Phone: [facility] Start: 08-29-2021 End: 09-01-[address] Parish Plascencia Work Phone: [facility] Start: 08-22-2021 Non-patient / Non-visit Dr. Pio Plascencia Work Phone: [facility] Start: 08-15-2021 Non-patient / Non-visit Dr. Pio Plascencia Work Phone: [facility] Start: 08-10-2021 End: 08-10-[address] Parish Plascencia Work Phone: [facility]-Outpatient Breast Imaging Start: 08-09-[address] Parish arizmendi Work Phone: [facility] Start: 08-02-2021 Non-patient / Non-visit Dr. Pio Plascnecia Work Phone: [facility] Start: 08-02-2021 End: 08-02-[address] Parish Plascencia Work Phone: [facility] Start: 07-28-2021 End: 07-28-[address] Parish Plascencia Work Phone: [facility]-Laboratory, Phy Office 3rd Flr Start: 07-25-2021 Non-patient / Non-visit Dr. Pio Plascencia Work Phone: [facility] Start: 07-19-2021 Non-patient / Non-visit Dr. Pio Plascencia Work Phone: [facility] Start: 07-13-2021 End: 07-13-[address] Parish Plascencia Work Phone: [facility] Start: 07-11-2021 Non-patient / Non-visit Dr. Pio Plascencia Work Phone: [facility] Start: 07-04-2021 Non-patient / Non-visit Dr. Pio Plascencia Work Phone: [facility] Start: 06-27-2021 Non-patient / Non-visit Dr. Pio Plascencia Work Phone: [facility] Start: 06-27-2021 End: 07-02-[address] Parish [facility]ascencia [facility] Start: 06-20-2021 Non-patient / Non-visit Dr. Pio Plascencia Work Phone: [facility] Start: 06-20-[address] Parish arizmendi Work Phone: [facility] Start: 06-13-2021 Non-patient / Non-visit Dr. Pio Plascencia Work Phone: [facility] Start: 06-06-2021 Non-patient / Non-visit Dr. Pio Plascencia Work Phone: [facility] Start: 05-30-2021 Non-patient / Non-visit Dr. Pio Plascencia Work Phone: [facility] Start: 05-30-2021 End: 06-02-[address] Parish Plascencia [facility] Start: 05-23-2021 Non-patient / Non-visit Dr. Pio Plascencia Work Phone: [facility] Start: 05-16-2021 Non-patient / Non-visit Dr. Pio Plascencia Work Phone: [facility] Start: 05-09-2021 Non-patient / Non-visit Dr. Pio Plascencia Work Phone: [facility] Start: 05-09-2021 End: 05-09-[address] Parish Plascencia Work Phone: [facility]-Laboratory Start: 05-02-2021 Non-patient / Non-visit Dr. Pio Plascencia Work Phone: [facility] Start: 05-02-2021 End: 05-02-[address] Parish Plascencia [facility] Start: 04-29-2021 Non-patient / Non-visit Dr. Pio Plascencia Work Phone: [facility] Start: 04-29-2021 End: 04-29-[address] Parish Plascencia Work Phone: [facility]-Cardiovascula r Services Start: 04-25-2021 Non-patient / Non-visit Dr. Pio Plascencia Work Phone: [facility] Start: 04-18-2021 Non-patient / Non-visit Dr. Pio Plascencia Work Phone: [facility] Start: 04-13-2021 End: 04-13-[address] Parish Plascencia Work Phone: [facility] Start: 04-11-2021 Non-patient / Non-visit Dr. Pio Plascencia Work Phone: [facility] Start: 03-31-2021 End: 04-04-[address] Parish Plascencia [facility] [place] Start: 03-23-2021 End: 03-23-[address] Parish Plascencia Work Phone: [facility]-Pulmonary Services/Neurology Start: 03-17-2021 End: 03-17-[address] Parish Plascencia Work Phone: [facility]-Laboratory, Phy Office 3rd Flr Start: 03-14-2021 Non-patient / Non-visit Dr. Pio Plascencia Work Phone: [facility] Start: 03-07-2021 Non-patient / Non-visit Dr. Pio Plascencia Work Phone: [facility] Start: 02-28-2021 Non-patient / Non-visit Dr. Pio Plascencia Work Phone: [facility] Start: 02-28-2021 End: 03-04-[address] Parish Plascencia Work Phone: [facility] Start: 09-21-[address] [facility] Procedures Date Procedure Procedure Detail Performing Clinician Start: 07-02-2024 Computed tomography of abdomen and pelvis with intravenous contrast Dr. Delta Sahu MD Work Phone: Start: 06-24-[address] CHRISTOPHER KRUGER MD Comment on above: Left Knee Start: 06-16-[address] Alonso Sahu MD Work Phone: Start: 06-03-[address] Rhett Sahu MD Work Phone: Start: 05-13-2024 MRI of lumbar spine with contrast Dr. eDlta Sahu MD Work Phone: Start: 04-28-2024 Measurement of renal function Dr. Delta Sahu MD Work Phone: Comment on above: GFR Calc Start: 04-28-2024 Urnls dip stick/tabl et reagent auto microscopy Dr. Delta Sahu MD Work Phone: Start: 04-17-2024 Dual energy X-ray absorptiometry Dr. Delta Sahu MD Work Phone: Start: 04-17-2024 Screening mammography Leroy Sahu MD Work Phone: Start: 04-11-2024 X-ray of lumbosacral spine Dr. Delta Sahu MD Work Phone: Start: 05-03-[address] Kamaljit Sahu Work Phone: Start: 03-01-2023 Post Lum Interbody F usion Watt One Level (Not Applicable) Dr. Parish Plascencia Work Phone: Start: 03-01-2023 Fluoroscopic guidance Leroy Sahu Work Phone: Start: 03-01-2023 X-ray of lumbar spin e, two or three views Dr. Delta Sahu Work Phone: Start: 02-05-2023 Plain chest X-ray Dr. Kristian Plascencia Work Phone: Start: 10-17-2022 Computed tomography of abdomen and pelvis with contrast Dr. Parish Plascencia Work Phone: Start: 09-14-[address] Parish arizmendi Work Phone: Start: 08-02-2022 Radiologic examinati on of knee Start: 02-08-2022 Cervical arthrodesis by anterior technique DAVID BENJAMIN DO Comment on above: C5-6, C6-7 Start: 12-26-2021 US scan of thyroid Dr. Parish Plascencia Work Phone: Start: 11-18-2021 X-ray of cervical spine Dr. Parish Plascencia Work Phone: Start: 11-18-2021 Plain X-ray of shoulder Dr. Parish Plascencia Work Phone: Start: 08-10-2021 Screening mammography Leroy Plascencia Work Phone: Start: 05-16-[address] Parish Plascencia Work Phone: Start: 05-16-2021 Investigation of transfusion reaction Dr. Parish Plascencia Work Phone: Start: 05-16-2021 Microbial culture, routine Dr. Parish Plascencia Work Phone: Start: 03-23-2021 Influenza Types A,B Direct FA (KAMLESH) Dr. Parish Plascencia Work Phone: Start: 03-23-2021 End: 03-23-2021 Respiratory syncytial virus antigen assay Dr. Parish Plascencia Work Phone: Start: 03-17-2021 Complete x-ray serie s of lumbar spine with bending views Dr. Parish Plascencia Work Phone: Anaerobic microbial culture Dr. Parish Plascencia Work Phone: Arthroscopy of knee DAVID BENJAMIN DO Comment on above: Right section DAVID ALLISON DO Comment on above: x2 History of subtotal thyroidectomy DAVID BENJAMIN DO Investigation of transfusion reaction Dr. Parish Plascencia Work Phone: Ligation of fallopian tube D R CHRISTOPHER KRUGER MD Lumbar spinal fusion DR CHEVY KRUGER MD Comment on above: L4-L5 Microbial culture, routine Leroy Plascencia Work Phone: Open reduction of fr acture of ankle with internal fixation DAVID BENJAMIN DO Comment on above: Right Open wound of left l ower leg due to animal bite DAVID BENJAMIN DO Tonsillectomy DAVID BENJAMIN DO Plan of Treatment Date Care Activity Detail Author Start: 08-22-2024 Patient referral [facility] Work Phone: Start: 07-30-2024 CBC W Auto Differential panel - Blood [facility] Start: 07-30-2024 Hemoglobin A1c/Hemoglobin.total in Blood [facility] Start: 07-22-2024 Patient referral [facility] Work Phone: Start: 07-02-2024 [facility] Start: 07-02-2024 Hospital admission, emergency, from emergency room, medical nature [facility] Start: 06-06-2024 Patient referral [facility] Work Phone: Start: 04-11-2024 Patient referral [facility] Work Phone: Start: 05-03-2023 Patient referral [facility] Work Phone: Start: 03-04-2023 Patient discharge [facility] Start: 03-03-2023 [facility] Start: 03-02-2023 Care planning and problem solving actions [facility] Start: 03-01-2023 Oxygen therapy [facility] Start: 03-01-2023 Following clinical pathway protocol [facility] Start: 03-01-2023 Continuous positive airway pressure ventilation treatment [facility] Start: 03-01-2023 Allograft for spine surgery only morselized SP BONE ALGRFT MORSEL ADD-ON [facility] Start: 03-01-2023 Anesthesia extensive spine & spinal cord ANESTH SPINE CORD SURGERY [facility] Start: 03-01-2023 Arthdsis post/posterolatrl/postinte rbody lumbar ARTHRD CMBN 1NTRSPC LUMBAR [facility] Start: 03-01-2023 Autograft spine surgery local from same incision SP BONE AGRFT LOCAL ADD-ON [facility] Start: 03-01-2023 Insj biomchn dev intervertebral dsc spc w/arthrd INSJ BIOMECHANICAL DEVICE [facility] Start: 03-01-2023 BARKER FACETC/FRMT ARTHRD LUM 1 BARKER FACETC/FRMT ARTHRD LUM 1 [facility] Start: 03-01-2023 Posterior segmental instrumentation 3-6 vrt seg INSERT SPINE FIXATION DEVICE [facility] Start: 03-01-2023 Admission procedure [facility] Start: 03-01-2023 Application of ice collar, cap or bag [facility] Start: 03-01-2023 Application of intermittent pneumatic compression device [facility] Start: 03-01-2023 Catheterization of vein [facility] Start: 03-01-2023 Consultation [facility] Start: 03-01-2023 Following clinical pathway protocol [facility] Start: 03-01-2023 Incentive spirometry [facility] Start: 03-01-2023 Introduction of urinary catheter [facility] Start: 03-01-2023 Maintenance of drainage tube [facility] Start: 03-01-2023 Measuring intake and output [facility] Start: 03-01-[address] [facility] Start: 03-01-2023 Patient education [facility] Start: 03-01-2023 Procedure discontinued [facility] Start: 03-01-2023 Provision of activity privileges [facility] Start: 03-01-2023 Recommendation to continue with treatment [facility] Start: 03-01-2023 Referral to service [facility] Start: 03-01-2023 Taking patient vital signs [facility] Start: 03-01-2023 Fluoroscopic guidance O.R. Fluoro for C-Arm [facility] Start: 03-01-2023 RF Less than 1 hour [facility] Start: 03-01-2023 X-ray of lumbar spine, two or three views Lumbar Spine 2 or 3 Views [facility] Start: 03-01-2023 XR Lumbar spine 2 or 3 Views [facility] Start: 07-13-2021 Patient referral [facility] Work Phone: CT Abdomen and Pelvi s W contrast IV [facility] Erythrocyte mean corpuscular volume determination [facility] Exercise tolerance test [facility] Hematocrit [Volume Fraction] of Blood [facility] Hemoglobin [Mass/vol ume] in Blood [facility] Hepatic function panel [facility] Leukocytes [#/volume ] in Blood [facility] Lipid 1996 panel - S aster or Plasma [facility] Mean corpuscular hemoglobin concentration determination [facility] Mean corpuscular hemoglobin determination [facility] Neutrophil count [facility] Neutrophil percent differential count [facility] Patient Education Treating Const ipation Eating a High-Fiber Diet [facility] Work Phone: Patient referral [facility] Work Phone: Platelets [#/volume] in Blood [facility] Red blood cell count [facility] Red cell distributio n width determination [facility] US Pelvis [facility] US.doppler Lower ext remity vein [facility] Work Phone: Videoswallow [facility] Immunizations Immunization Date Immunization Notes Care Provider [facility] 12-20-2022 influenza, injectabl e, quadrivalent, preservative free Dr. Parish Plascencia Work Phone: [facility] 08-05-2021 SARS-CoV-2 (COVID-19 ) mRNA-1273 vaccine DAVID BENJAMIN DO [facility] 02-22-2021 SARS-CoV-2 (COVID-19 ) mRNA-1273 vaccine DAVID BENJAMIN DO [facility] 11-15-2020 influenza virus vaccine, unspecified formulation DAVID BENJAMIN DO [facility] 11-15-2020 influenza, injectabl e, quadrivalent, preservative free Dr. Delta Sahu MD Work Phone: [facility] 07-08-2020 SARS-CoV-2 (COVID-19 ) mRNA-1273 vaccine DAVID BENJAMIN DO [facility] Comment on above: Result Comment: 2021: [id number] 06-24-2020 Covid (Moderna) Dr. Parish Plascencia Work Phone: [facility] 06-10-2020 SARS-CoV-2 (COVID-19 ) mRNA-6350 vaccine DAVID BENJAMIN DO [facility] Comment on above: Result Comment: 2021: [id number] 06-03-2020 Covid (Moderna) Dr. Parish Plascencia Work Phone: [facility] 12-18-2019 influenza virus vaccine, unspecified formulation DAVID BENJAMIN DO [facility] 12-18-2019 influenza, injectabl e, quadrivalent, preservative free Dr. Parish Plascencia Work Phone: [facility] 12-18-2019 influenza, seasonal, injectable Dr. Parish Plascencia Work Phone: [facility] 12-18-2019 influenza, seasonal, injectable, preservative free Dr. Delta Sahu MD Work Phone: [facility] 10-08-2018 influenza virus vaccine, unspecified formulation DAVID BENJAMIN DO [facility] 10-08-2018 influenza, injectabl e, quadrivalent, preservative free Dr. Delta Sahu MD Work Phone: [facility] 12-19-2017 influenza virus vaccine, unspecified formulation DAVID SOURAV GARCIA [facility] 12-19-2017 influenza, injectabl e, quadrivalent, preservative free Dr. Delta Sahu MD Work Phone: [facility] Payers Date Payer Category Payer Medicare 2024 Unknown [id number] 2024 Self-pay [id number] 2018 Unknown [id number] 2015 Medicare [id number] 1950 Unknown [id number] 2.16.8 [id number] 1950 Unknown [id number] 2.16.8 [id number] 1950 Unknown [id number] 2.16. [id number] 1950 Unknown [id number] 2.16. [id number] 1950 Unknown [id number] 2.16. 840.1.267094.3.579.2.627 1950 Unknown [id number] 2.16. 40.1.811930.3.579.2.627 1950 Unknown [id number] 2.16.8 40.1.407120.3.579.2.627 1950 Unknown [id number] 2.16.8 40.1.046905.3.579.2.627 Unknown [id number] Unknown [id number] Unknown [id number] 2.16.8 40.1.907299.3.579.2.462 Unknown [id number] 2.16.8 40.1.118950.3.579.2.462 Unknown [id number] 2.16.8 40.1.475187.3.579.2.462 Unknown [id number] 2.16.8 40.1.302481.3.579.2.462 Unknown [id number] 2.16.8 40.1.321622.3.579.2.462 Unknown [id number] 2.16.8 40.1.585048.3.579.2.462 Unknown [id number] 2.16.8 40.1.839601.3.579.2.462 Unknown [id number] 2.16.8 40.1.033452.3.579.2.462 Unknown [id number] 2.16.8 40.1.705586.3.579.2.462 Unknown [id number] 2.16.8 40.1.921274.3.579.2.462 Unknown [id number] 2.16.8 40.1.651117.3.579.2.462 Unknown [id number] 2.16.8 40.1.363685.3.579.2.462 Unknown [id number] 2.16.8 40.1.826172.3.579.2.462 Unknown [id number] 2.16.8 [id number] Unknown [id number] 2.16.8 [id number] Unknown [id number] 2.16.8 [id number] Unknown [id number] 2.16.8 [id number] Unknown [id number] 2.16.8 [id number] Unknown [id number] 2.16.8 [id number] Unknown [id number] 2.16.8 [id number] Unknown [id number] 2.16.8 [id number] Unknown [id number] 2.16.8 [id number] Unknown [id number] 2.16.8 [id number] Unknown [id number] 2.16.8 [id number] Unknown [id number] 2.16.8 [id number] Unknown [id number] 2.16.8 [id number] Unknown [id number] 2.16.8 [id number] Unknown [id number] 2.16.8 [id number] Unknown [id number] 2.16.8 [id number] Unknown [id number] 2.16.8 [id number] Unknown [id number] 2.16.8 [id number] Unknown [id number] 2.16.8 [id number] Unknown [id number] 2.16.8 [id number] Social History Date Type Detail Facility Start: 04-13-2021 End: 06-12-2023 Tobacco smoking status NHIS Unknown if ever smoked [facility] Start: 12-16-2019 None [facility] Start: 12-16-2019 Spouse/ Signif icant Other [facility] Start: 06-04-2019 Non-smoker [facility] Start: 1950 Sex Assigned At Female A [facility] Start: 01-25-2022 End: 07-22-2024 Tobacco smoking status Never smoked tobacco (finding) [facility] Start: 01-11-2022 End: 05-22-2024 Sex Female (finding) [facility] NEGATED: Highlighted row [facility] Medical Equipment Procedure Code Equipment Code Equipment Original Text Equipment Identifier Dates ORIF, ankle CANCELLOUS SCREW FDA Start: 06-05-2019 ORIF, ankle LOCKING SCREW FDA Start: 06-05-2019 ORIF, ankle LOCKING SCREW FDA Start: 06-05-2019 ORIF, ankle TIGHTROPE, XP FDA Start: 06-05-2019 ORIF, ankle CANCELLOUS SCREW FDA Start: 06-05-2019 ORIF, ankle CORTICAL SCREW FDA Start: 06-05-2019 ORIF, ankle CORTICAL SCREW FDA Start: 06-05-2019 ORIF, ankle CORTICAL SCREW FDA Start: 06-05-2019 ORIF, ankle CORTICAL SCREWS FDA Start: 06-05-2019 ORIF, ankle LOCKING DISTAL F IB PLATE-RIGHT FDA Start: 06-05-2019 ORIF, ankle LOCKING SCREW FDA Start: 06-05-2019 ORIF, ankle LOCKING SCREW FDA Start: 06-05-2019 ORIF, ankle CANCELLOUS SCREW FDA Start: 06-05-2019 ORIF, ankle LOCKING SCREW FDA Start: 06-05-2019 ORIF, ankle LOCKING SCREW FDA Start: 06-05-2019 ORIF, ankle TIGHTROPE, XP FDA Start: 06-05-2019 ORIF, ankle CANCELLOUS SCREW FDA Start: 06-05-2019 ORIF, ankle CORTICAL SCREW FDA Start: 06-05-2019 ORIF, ankle CORTICAL SCREW FDA Start: 06-05-2019 ORIF, ankle CORTICAL SCREW FDA Start: 06-05-2019 ORIF, ankle CORTICAL SCREWS FDA Start: 06-05-2019 ORIF, ankle LOCKING DISTAL F IB PLATE-RIGHT FDA Start: 06-05-2019 ORIF, ankle LOCKING SCREW FDA Start: 06-05-2019 ORIF, ankle LOCKING SCREW FDA Start: 06-05-2019 ORIF, ankle CANCELLOUS SCREW FDA Start: 06-05-2019 ORIF, ankle LOCKING SCREW FDA Start: 06-05-2019 ORIF, ankle LOCKING SCREW FDA Start: 06-05-2019 ORIF, ankle TIGHTROPE, XP FDA Start: 06-05-2019 ORIF, ankle CANCELLOUS SCREW FDA Start: 06-05-2019 ORIF, ankle CORTICAL SCREW FDA Start: 06-05-2019 ORIF, ankle CORTICAL SCREW FDA Start: 06-05-2019 ORIF, ankle CORTICAL SCREW FDA Start: 06-05-2019 ORIF, ankle CORTICAL SCREWS FDA Start: 06-05-2019 ORIF, ankle LOCKING DISTAL F IB PLATE-RIGHT FDA Start: 06-05-2019 ORIF, ankle LOCKING SCREW FDA Start: 06-05-2019 ORIF, ankle LOCKING SCREW FDA Start: 06-05-2019 ORIF, ankle CANCELLOUS SCREW FDA Start: 06-05-2019 ORIF, ankle LOCKING SCREW FDA Start: 06-05-2019 ORIF, ankle LOCKING SCREW FDA Start: 06-05-2019 ORIF, ankle TIGHTROPE, XP FDA Start: 06-05-2019 ORIF, ankle CANCELLOUS SCREW FDA Start: 06-05-2019 ORIF, ankle CORTICAL SCREW FDA Start: 06-05-2019 ORIF, ankle CORTICAL SCREW FDA Start: 06-05-2019 ORIF, ankle CORTICAL SCREW FDA Start: 06-05-2019 ORIF, ankle CORTICAL SCREWS FDA Start: 06-05-2019 ORIF, ankle LOCKING DISTAL F IB PLATE-RIGHT FDA Start: 06-05-2019 ORIF, ankle LOCKING SCREW FDA Start: 06-05-2019 ORIF, ankle LOCKING SCREW FDA Start: 06-05-2019 ORIF, ankle CANCELLOUS SCREW FDA Start: 06-05-2019 ORIF, ankle LOCKING SCREW FDA Start: 06-05-2019 ORIF, ankle LOCKING SCREW FDA Start: 06-05-2019 ORIF, ankle TIGHTROPE, XP FDA Start: 06-05-2019 ORIF, ankle CANCELLOUS SCREW FDA Start: 06-05-2019 ORIF, ankle CORTICAL SCREW FDA Start: 06-05-2019 ORIF, ankle CORTICAL SCREW FDA Start: 06-05-2019 ORIF, ankle CORTICAL SCREW FDA Start: 06-05-2019 ORIF, ankle CORTICAL SCREWS FDA Start: 06-05-2019 ORIF, ankle LOCKING DISTAL F IB PLATE-RIGHT FDA Start: 06-05-2019 ORIF, ankle LOCKING SCREW FDA Start: 06-05-2019 ORIF, ankle LOCKING SCREW FDA Start: 06-05-2019 ORIF, ankle CANCELLOUS SCREW FDA Start: 06-05-2019 ORIF, ankle LOCKING SCREW FDA Start: 06-05-2019 ORIF, ankle LOCKING SCREW FDA Start: 06-05-2019 ORIF, ankle TIGHTROPE, XP FDA Start: 06-05-2019 ORIF, ankle CANCELLOUS SCREW FDA Start: 06-05-2019 ORIF, ankle CORTICAL SCREW FDA Start: 06-05-2019 ORIF, ankle CORTICAL SCREW FDA Start: 06-05-2019 ORIF, ankle CORTICAL SCREW FDA Start: 06-05-2019 ORIF, ankle CORTICAL SCREWS FDA Start: 06-05-2019 ORIF, ankle LOCKING DISTAL F IB PLATE-RIGHT FDA Start: 06-05-2019 ORIF, ankle LOCKING SCREW FDA Start: 06-05-2019 ORIF, ankle LOCKING SCREW FDA Start: 06-05-2019 ORIF, ankle CANCELLOUS SCREW FDA Start: 06-05-2019 ORIF, ankle LOCKING SCREW FDA Start: 06-05-2019 ORIF, ankle LOCKING SCREW FDA Start: 06-05-2019 ORIF, ankle TIGHTROPE, XP FDA Start: 06-05-2019 ORIF, ankle CANCELLOUS SCREW FDA Start: 06-05-2019 ORIF, ankle CORTICAL SCREW FDA Start: 06-05-2019 ORIF, ankle CORTICAL SCREW FDA Start: 06-05-2019 ORIF, ankle CORTICAL SCREW FDA Start: 06-05-2019 ORIF, ankle CORTICAL SCREWS FDA Start: 06-05-2019 ORIF, ankle LOCKING DISTAL F IB PLATE-RIGHT FDA Start: 06-05-2019 ORIF, ankle LOCKING SCREW FDA Start: 06-05-2019 ORIF, ankle LOCKING SCREW FDA Start: 06-05-2019 ORIF, ankle CANCELLOUS SCREW FDA Start: 06-05-2019 ORIF, ankle LOCKING SCREW FDA Start: 06-05-2019 ORIF, ankle LOCKING SCREW FDA Start: 06-05-2019 ORIF, ankle TIGHTROPE, XP FDA Start: 06-05-2019 ORIF, ankle CANCELLOUS SCREW FDA Start: 06-05-2019 ORIF, ankle CORTICAL SCREW FDA Start: 06-05-2019 ORIF, ankle CORTICAL SCREW FDA Start: 06-05-2019 ORIF, ankle CORTICAL SCREW FDA Start: 06-05-2019 ORIF, ankle CORTICAL SCREWS FDA Start: 06-05-2019 ORIF, ankle LOCKING DISTAL F IB PLATE-RIGHT FDA Start: 06-05-2019 ORIF, ankle LOCKING SCREW FDA Start: 06-05-2019 ORIF, ankle LOCKING SCREW FDA Start: 06-05-2019 ORIF, ankle CANCELLOUS SCREW FDA Start: 06-05-2019 ORIF, ankle LOCKING SCREW FDA Start: 06-05-2019 ORIF, ankle LOCKING SCREW FDA Start: 06-05-2019 ORIF, ankle TIGHTROPE, XP FDA Start: 06-05-2019 ORIF, ankle CANCELLOUS SCREW FDA Start: 06-05-2019 ORIF, ankle CORTICAL SCREW FDA Start: 06-05-2019 ORIF, ankle CORTICAL SCREW FDA Start: 06-05-2019 ORIF, ankle CORTICAL SCREW FDA Start: 06-05-2019 ORIF, ankle CORTICAL SCREWS FDA Start: 06-05-2019 ORIF, ankle LOCKING DISTAL F IB PLATE-RIGHT FDA Start: 06-05-2019 ORIF, ankle LOCKING SCREW FDA Start: 06-05-2019 ORIF, ankle LOCKING SCREW FDA Start: 06-05-2019 ORIF, ankle CANCELLOUS SCREW FDA Start: 06-05-2019 ORIF, ankle LOCKING SCREW FDA Start: 06-05-2019 ORIF, ankle LOCKING SCREW FDA Start: 06-05-2019 ORIF, ankle TIGHTROPE, XP FDA Start: 06-05-2019 ORIF, ankle CANCELLOUS SCREW FDA Start: 06-05-2019 ORIF, ankle CORTICAL SCREW FDA Start: 06-05-2019 ORIF, ankle CORTICAL SCREW FDA Start: 06-05-2019 ORIF, ankle CORTICAL SCREW FDA Start: 06-05-2019 ORIF, ankle CORTICAL SCREWS FDA Start: 06-05-2019 ORIF, ankle LOCKING DISTAL F IB PLATE-RIGHT FDA Start: 06-05-2019 ORIF, ankle LOCKING SCREW FDA Start: 06-05-2019 ORIF, ankle LOCKING SCREW FDA Start: 06-05-2019 ORIF, ankle CANCELLOUS SCREW FDA Start: 06-05-2019 ORIF, ankle LOCKING SCREW FDA Start: 06-05-2019 ORIF, ankle LOCKING SCREW FDA Start: 06-05-2019 ORIF, ankle TIGHTROPE, XP FDA Start: 06-05-2019 ORIF, ankle CANCELLOUS SCREW FDA Start: 06-05-2019 ORIF, ankle CORTICAL SCREW FDA Start: 06-05-2019 ORIF, ankle CORTICAL SCREW FDA Start: 06-05-2019 ORIF, ankle CORTICAL SCREW FDA Start: 06-05-2019 ORIF, ankle CORTICAL SCREWS FDA Start: 06-05-2019 ORIF, ankle LOCKING DISTAL F IB PLATE-RIGHT FDA Start: 06-05-2019 ORIF, ankle LOCKING SCREW FDA Start: 06-05-2019 ORIF, ankle LOCKING SCREW FDA Start: 06-05-2019 ORIF, ankle CANCELLOUS SCREW FDA Start: 06-05-2019 ORIF, ankle LOCKING SCREW FDA Start: 06-05-2019 ORIF, ankle LOCKING SCREW FDA Start: 06-05-2019 ORIF, ankle TIGHTROPE, XP FDA Start: 06-05-2019 ORIF, ankle CANCELLOUS SCREW FDA Start: 06-05-2019 ORIF, ankle CORTICAL SCREW FDA Start: 06-05-2019 ORIF, ankle CORTICAL SCREW FDA Start: 06-05-2019 ORIF, ankle CORTICAL SCREW FDA Start: 06-05-2019 ORIF, ankle CORTICAL SCREWS FDA Start: 06-05-2019 ORIF, ankle LOCKING DISTAL F IB PLATE-RIGHT FDA Start: 06-05-2019 ORIF, ankle LOCKING SCREW FDA Start: 06-05-2019 ORIF, ankle LOCKING SCREW FDA Start: 06-05-2019 ORIF, ankle CANCELLOUS SCREW FDA Start: 06-05-2019 ORIF, ankle LOCKING SCREW FDA Start: 06-05-2019 ORIF, ankle LOCKING SCREW FDA Start: 06-05-2019 ORIF, ankle TIGHTROPE, XP FDA Start: 06-05-2019 ORIF, ankle CANCELLOUS SCREW FDA Start: 06-05-2019 ORIF, ankle CORTICAL SCREW FDA Start: 06-05-2019 ORIF, ankle CORTICAL SCREW FDA Start: 06-05-2019 ORIF, ankle CORTICAL SCREW FDA Start: 06-05-2019 ORIF, ankle CORTICAL SCREWS FDA Start: 06-05-2019 ORIF, ankle LOCKING DISTAL F IB PLATE-RIGHT FDA Start: 06-05-2019 ORIF, ankle LOCKING SCREW FDA Start: 06-05-2019 ORIF, ankle LOCKING SCREW FDA Start: 06-05-2019 ORIF, ankle CANCELLOUS SCREW FDA Start: 06-05-2019 ORIF, ankle LOCKING SCREW FDA Start: 06-05-2019 ORIF, ankle LOCKING SCREW FDA Start: 06-05-2019 ORIF, ankle TIGHTROPE, XP FDA Start: 06-05-2019 ORIF, ankle CANCELLOUS SCREW FDA Start: 06-05-2019 ORIF, ankle CORTICAL SCREW FDA Start: 06-05-2019 ORIF, ankle CORTICAL SCREW FDA Start: 06-05-2019 ORIF, ankle CORTICAL SCREW FDA Start: 06-05-2019 ORIF, ankle CORTICAL SCREWS FDA Start: 06-05-2019 ORIF, ankle LOCKING DISTAL F IB PLATE-RIGHT FDA Start: 06-05-2019 ORIF, ankle LOCKING SCREW FDA Start: 06-05-2019 ORIF, ankle LOCKING SCREW FDA Start: 06-05-2019 ORIF, ankle CANCELLOUS SCREW FDA Start: 06-05-2019 ORIF, ankle LOCKING SCREW FDA Start: 06-05-2019 ORIF, ankle LOCKING SCREW FDA Start: 06-05-2019 ORIF, ankle TIGHTROPE, XP FDA Start: 06-05-2019 ORIF, ankle CANCELLOUS SCREW FDA Start: 06-05-2019 ORIF, ankle CORTICAL SCREW FDA Start: 06-05-2019 ORIF, ankle CORTICAL SCREW FDA Start: 06-05-2019 ORIF, ankle CORTICAL SCREW FDA Start: 06-05-2019 ORIF, ankle CORTICAL SCREWS FDA Start: 06-05-2019 ORIF, ankle LOCKING DISTAL F IB PLATE-RIGHT FDA Start: 06-05-2019 ORIF, ankle LOCKING SCREW FDA Start: 06-05-2019 ORIF, ankle LOCKING SCREW FDA Start: 06-05-2019 ORIF, ankle CANCELLOUS SCREW FDA Start: 06-05-2019 ORIF, ankle LOCKING SCREW FDA Start: 06-05-2019 ORIF, ankle LOCKING SCREW FDA Start: 06-05-2019 ORIF, ankle TIGHTROPE, XP FDA Start: 06-05-2019 ORIF, ankle CANCELLOUS SCREW FDA Start: 06-05-2019 ORIF, ankle CORTICAL SCREW FDA Start: 06-05-2019 ORIF, ankle CORTICAL SCREW FDA Start: 06-05-2019 ORIF, ankle CORTICAL SCREW FDA Start: 06-05-2019 ORIF, ankle CORTICAL SCREWS FDA Start: 06-05-2019 ORIF, ankle LOCKING DISTAL F IB PLATE-RIGHT FDA Start: 06-05-2019 ORIF, ankle LOCKING SCREW FDA Start: 06-05-2019 ORIF, ankle LOCKING SCREW FDA Start: 06-05-2019 ORIF, ankle CANCELLOUS SCREW FDA Start: 06-05-2019 ORIF, ankle LOCKING SCREW FDA Start: 06-05-2019 ORIF, ankle LOCKING SCREW FDA Start: 06-05-2019 ORIF, ankle TIGHTROPE, XP FDA Start: 06-05-2019 ORIF, ankle CANCELLOUS SCREW FDA Start: 06-05-2019 ORIF, ankle CORTICAL SCREW FDA Start: 06-05-2019 ORIF, ankle CORTICAL SCREW FDA Start: 06-05-2019 ORIF, ankle CORTICAL SCREW FDA Start: 06-05-2019 ORIF, ankle CORTICAL SCREWS FDA Start: 06-05-2019 ORIF, ankle LOCKING DISTAL F IB PLATE-RIGHT FDA Start: 06-05-2019 ORIF, ankle LOCKING SCREW FDA Start: 06-05-2019 ORIF, ankle LOCKING SCREW FDA Start: 06-05-2019 ORIF, ankle CANCELLOUS SCREW FDA Start: 06-05-2019 ORIF, ankle LOCKING SCREW FDA Start: 06-05-2019 ORIF, ankle LOCKING SCREW FDA Start: 06-05-2019 ORIF, ankle TIGHTROPE, XP FDA Start: 06-05-2019 ORIF, ankle CANCELLOUS SCREW FDA Start: 06-05-2019 ORIF, ankle CORTICAL SCREW FDA Start: 06-05-2019 ORIF, ankle CORTICAL SCREW FDA Start: 06-05-2019 ORIF, ankle CORTICAL SCREW FDA Start: 06-05-2019 ORIF, ankle CORTICAL SCREWS FDA Start: 06-05-2019 ORIF, ankle LOCKING DISTAL F IB PLATE-RIGHT FDA Start: 06-05-2019 ORIF, ankle LOCKING SCREW FDA Start: 06-05-2019 ORIF, ankle LOCKING SCREW FDA Start: 06-05-2019 ORIF, ankle CANCELLOUS SCREW FDA Start: 06-05-2019 ORIF, ankle LOCKING SCREW FDA Start: 06-05-2019 ORIF, ankle LOCKING SCREW FDA Start: 06-05-2019 ORIF, ankle TIGHTROPE, XP FDA Start: 06-05-2019 ORIF, ankle CANCELLOUS SCREW FDA Start: 06-05-2019 ORIF, ankle CORTICAL SCREW FDA Start: 06-05-2019 ORIF, ankle CORTICAL SCREW FDA Start: 06-05-2019 ORIF, ankle CORTICAL SCREW FDA Start: 06-05-2019 ORIF, ankle CORTICAL SCREWS FDA Start: 06-05-2019 ORIF, ankle LOCKING DISTAL F IB PLATE-RIGHT FDA Start: 06-05-2019 ORIF, ankle LOCKING SCREW FDA Start: 06-05-2019 ORIF, ankle LOCKING SCREW FDA Start: 06-05-2019 ORIF, ankle CANCELLOUS SCREW FDA Start: 06-05-2019 ORIF, ankle LOCKING SCREW FDA Start: 06-05-2019 ORIF, ankle LOCKING SCREW FDA Start: 06-05-2019 ORIF, ankle TIGHTROPE, XP FDA Start: 06-05-2019 ORIF, ankle CANCELLOUS SCREW FDA Start: 06-05-2019 ORIF, ankle CORTICAL SCREW FDA Start: 06-05-2019 ORIF, ankle CORTICAL SCREW FDA Start: 06-05-2019 ORIF, ankle CORTICAL SCREW FDA Start: 06-05-2019 ORIF, ankle CORTICAL SCREWS FDA Start: 06-05-2019 ORIF, ankle LOCKING DISTAL F IB PLATE-RIGHT FDA Start: 06-05-2019 ORIF, ankle LOCKING SCREW FDA Start: 06-05-2019 ORIF, ankle LOCKING SCREW FDA Start: 06-05-2019 ORIF, ankle CANCELLOUS SCREW FDA Start: 06-05-2019 ORIF, ankle LOCKING SCREW FDA Start: 06-05-2019 ORIF, ankle LOCKING SCREW FDA Start: 06-05-2019 ORIF, ankle TIGHTROPE, XP FDA Start: 06-05-2019 ORIF, ankle CANCELLOUS SCREW FDA Start: 06-05-2019 ORIF, ankle CORTICAL SCREW FDA Start: 06-05-2019 ORIF, ankle CORTICAL SCREW FDA Start: 06-05-2019 ORIF, ankle CORTICAL SCREW FDA Start: 06-05-2019 ORIF, ankle CORTICAL SCREWS FDA Start: 06-05-2019 ORIF, ankle LOCKING DISTAL F IB PLATE-RIGHT FDA Start: 06-05-2019 ORIF, ankle LOCKING SCREW FDA Start: 06-05-2019 ORIF, ankle LOCKING SCREW FDA Start: 06-05-2019 ORIF, ankle CANCELLOUS SCREW FDA Start: 06-05-2019 ORIF, ankle LOCKING SCREW FDA Start: 06-05-2019 ORIF, ankle LOCKING SCREW FDA Start: 06-05-2019 ORIF, ankle TIGHTROPE, XP FDA Start: 06-05-2019 ORIF, ankle CANCELLOUS SCREW FDA Start: 06-05-2019 ORIF, ankle CORTICAL SCREW FDA Start: 06-05-2019 ORIF, ankle CORTICAL SCREW FDA Start: 06-05-2019 ORIF, ankle CORTICAL SCREW FDA Start: 06-05-2019 ORIF, ankle CORTICAL SCREWS FDA Start: 06-05-2019 ORIF, ankle LOCKING DISTAL F IB PLATE-RIGHT FDA Start: 06-05-2019 ORIF, ankle LOCKING SCREW FDA Start: 06-05-2019 ORIF, ankle LOCKING SCREW FDA Start: 06-05-2019 ORIF, ankle CANCELLOUS SCREW FDA Start: 06-05-2019 ORIF, ankle LOCKING SCREW FDA Start: 06-05-2019 ORIF, ankle LOCKING SCREW FDA Start: 06-05-2019 ORIF, ankle TIGHTROPE, XP FDA Start: 06-05-2019 ORIF, ankle CANCELLOUS SCREW FDA Start: 06-05-2019 ORIF, ankle CORTICAL SCREW FDA Start: 06-05-2019 ORIF, ankle CORTICAL SCREW FDA Start: 06-05-2019 ORIF, ankle CORTICAL SCREW FDA Start: 06-05-2019 ORIF, ankle CORTICAL SCREWS FDA Start: 06-05-2019 ORIF, ankle LOCKING DISTAL F IB PLATE-RIGHT FDA Start: 06-05-2019 ORIF, ankle LOCKING SCREW FDA Start: 06-05-2019 ORIF, ankle LOCKING SCREW FDA Start: 06-05-2019 ORIF, ankle CANCELLOUS SCREW FDA Start: 06-05-2019 ORIF, ankle LOCKING SCREW FDA Start: 06-05-2019 ORIF, ankle LOCKING SCREW FDA Start: 06-05-2019 ORIF, ankle TIGHTROPE, XP FDA Start: 06-05-2019 ORIF, ankle CANCELLOUS SCREW FDA Start: 06-05-2019 ORIF, ankle CORTICAL SCREW FDA Start: 06-05-2019 ORIF, ankle CORTICAL SCREW FDA Start: 06-05-2019 ORIF, ankle CORTICAL SCREW FDA Start: 06-05-2019 ORIF, ankle CORTICAL SCREWS FDA Start: 06-05-2019 ORIF, ankle LOCKING DISTAL F IB PLATE-RIGHT FDA Start: 06-05-2019 ORIF, ankle LOCKING SCREW FDA Start: 06-05-2019 ORIF, ankle LOCKING SCREW FDA Start: 06-05-2019 ORIF, ankle CANCELLOUS SCREW FDA Start: 06-05-2019 ORIF, ankle LOCKING SCREW FDA Start: 06-05-2019 ORIF, ankle LOCKING SCREW FDA Start: 06-05-2019 ORIF, ankle TIGHTROPE, XP FDA Start: 06-05-2019 ORIF, ankle CANCELLOUS SCREW FDA Start: 06-05-2019 ORIF, ankle CORTICAL SCREW FDA Start: 06-05-2019 ORIF, ankle CORTICAL SCREW FDA Start: 06-05-2019 ORIF, ankle CORTICAL SCREW FDA Start: 06-05-2019 ORIF, ankle CORTICAL SCREWS FDA Start: 06-05-2019 ORIF, ankle LOCKING DISTAL F IB PLATE-RIGHT FDA Start: 06-05-2019 ORIF, ankle LOCKING SCREW FDA Start: 06-05-2019 ORIF, ankle LOCKING SCREW FDA Start: 06-05-2019 ORIF, ankle CANCELLOUS SCREW FDA Start: 06-05-2019 ORIF, ankle LOCKING SCREW FDA Start: 06-05-2019 ORIF, ankle LOCKING SCREW FDA Start: 06-05-2019 ORIF, ankle TIGHTROPE, XP FDA Start: 06-05-2019 ORIF, ankle CANCELLOUS SCREW FDA Start: 06-05-2019 ORIF, ankle CORTICAL SCREW FDA Start: 06-05-2019 ORIF, ankle CORTICAL SCREW FDA Start: 06-05-2019 ORIF, ankle CORTICAL SCREW FDA Start: 06-05-2019 ORIF, ankle CORTICAL SCREWS FDA Start: 06-05-2019 ORIF, ankle LOCKING DISTAL F IB PLATE-RIGHT FDA Start: 06-05-2019 ORIF, ankle LOCKING SCREW FDA Start: 06-05-2019 ORIF, ankle LOCKING SCREW FDA Start: 06-05-2019 ORIF, ankle CANCELLOUS SCREW FDA Start: 06-05-2019 ORIF, ankle LOCKING SCREW FDA Start: 06-05-2019 ORIF, ankle LOCKING SCREW FDA Start: 06-05-2019 ORIF, ankle TIGHTROPE, XP FDA Start: 06-05-2019 ORIF, ankle CANCELLOUS SCREW FDA Start: 06-05-2019 ORIF, ankle CORTICAL SCREW FDA Start: 06-05-2019 ORIF, ankle CORTICAL SCREW FDA Start: 06-05-2019 ORIF, ankle CORTICAL SCREW FDA Start: 06-05-2019 ORIF, ankle CORTICAL SCREWS FDA Start: 06-05-2019 ORIF, ankle LOCKING DISTAL F IB PLATE-RIGHT FDA Start: 06-05-2019 ORIF, ankle LOCKING SCREW FDA Start: 06-05-2019 ORIF, ankle LOCKING SCREW FDA Start: 06-05-2019 ORIF, ankle CANCELLOUS SCREW FDA Start: 06-05-2019 ORIF, ankle LOCKING SCREW FDA Start: 06-05-2019 ORIF, ankle LOCKING SCREW FDA Start: 06-05-2019 ORIF, ankle TIGHTROPE, XP FDA Start: 06-05-2019 ORIF, ankle CANCELLOUS SCREW FDA Start: 06-05-2019 ORIF, ankle CORTICAL SCREW FDA Start: 06-05-2019 ORIF, ankle CORTICAL SCREW FDA Start: 06-05-2019 ORIF, ankle CORTICAL SCREW FDA Start: 06-05-2019 ORIF, ankle CORTICAL SCREWS FDA Start: 06-05-2019 ORIF, ankle LOCKING DISTAL F IB PLATE-RIGHT FDA Start: 06-05-2019 ORIF, ankle LOCKING SCREW FDA Start: 06-05-2019 ORIF, ankle LOCKING SCREW FDA Start: 06-05-2019 ORIF, ankle CANCELLOUS SCREW FDA Start: 06-05-2019 ORIF, ankle LOCKING SCREW FDA Start: 06-05-2019 ORIF, ankle LOCKING SCREW FDA Start: 06-05-2019 ORIF, ankle TIGHTROPE, XP FDA Start: 06-05-2019 ORIF, ankle CANCELLOUS SCREW FDA Start: 06-05-2019 ORIF, ankle CORTICAL SCREW FDA Start: 06-05-2019 ORIF, ankle CORTICAL SCREW FDA Start: 06-05-2019 ORIF, ankle CORTICAL SCREW FDA Start: 06-05-2019 ORIF, ankle CORTICAL SCREWS FDA Start: 06-05-2019 ORIF, ankle LOCKING DISTAL F IB PLATE-RIGHT FDA Start: 06-05-2019 ORIF, ankle LOCKING SCREW FDA Start: 06-05-2019 ORIF, ankle LOCKING SCREW FDA Start: 06-05-2019 ORIF, ankle CANCELLOUS SCREW FDA Start: 06-05-2019 ORIF, ankle LOCKING SCREW FDA Start: 06-05-2019 ORIF, ankle LOCKING SCREW FDA Start: 06-05-2019 ORIF, ankle TIGHTROPE, XP FDA Start: 06-05-2019 ORIF, ankle CANCELLOUS SCREW FDA Start: 06-05-2019 ORIF, ankle CORTICAL SCREW FDA Start: 06-05-2019 ORIF, ankle CORTICAL SCREW FDA Start: 06-05-2019 ORIF, ankle CORTICAL SCREW FDA Start: 06-05-2019 ORIF, ankle CORTICAL SCREWS FDA Start: 06-05-2019 ORIF, ankle LOCKING DISTAL F IB PLATE-RIGHT FDA Start: 06-05-2019 ORIF, ankle LOCKING SCREW FDA Start: 06-05-2019 ORIF, ankle LOCKING SCREW FDA Start: 06-05-2019 ORIF, ankle CANCELLOUS SCREW FDA Start: 06-05-2019 ORIF, ankle LOCKING SCREW FDA Start: 06-05-2019 ORIF, ankle LOCKING SCREW FDA Start: 06-05-2019 ORIF, ankle TIGHTROPE, XP FDA Start: 06-05-2019 ORIF, ankle CANCELLOUS SCREW FDA Start: 06-05-2019 ORIF, ankle CORTICAL SCREW FDA Start: 06-05-2019 ORIF, ankle CORTICAL SCREW FDA Start: 06-05-2019 ORIF, ankle CORTICAL SCREW FDA Start: 06-05-2019 ORIF, ankle CORTICAL SCREWS FDA Start: 06-05-2019 ORIF, ankle LOCKING DISTAL F IB PLATE-RIGHT FDA Start: 06-05-2019 ORIF, ankle LOCKING SCREW FDA Start: 06-05-2019 ORIF, ankle LOCKING SCREW FDA Start: 06-05-2019 ORIF, ankle CANCELLOUS SCREW FDA Start: 06-05-2019 ORIF, ankle LOCKING SCREW FDA Start: 06-05-2019 ORIF, ankle LOCKING SCREW FDA Start: 06-05-2019 ORIF, ankle TIGHTROPE, XP FDA Start: 06-05-2019 ORIF, ankle CANCELLOUS SCREW FDA Start: 06-05-2019 ORIF, ankle CORTICAL SCREW FDA Start: 06-05-2019 ORIF, ankle CORTICAL SCREW FDA Start: 06-05-2019 ORIF, ankle CORTICAL SCREW FDA Start: 06-05-2019 ORIF, ankle CORTICAL SCREWS FDA Start: 06-05-2019 ORIF, ankle LOCKING DISTAL F IB PLATE-RIGHT FDA Start: 06-05-2019 ORIF, ankle LOCKING SCREW FDA Start: 06-05-2019 ORIF, ankle LOCKING SCREW FDA Start: 06-05-2019 ORIF, ankle CANCELLOUS SCREW FDA Start: 06-05-2019 ORIF, ankle LOCKING SCREW FDA Start: 06-05-2019 ORIF, ankle LOCKING SCREW FDA Start: 06-05-2019 ORIF, ankle TIGHTROPE, XP FDA Start: 06-05-2019 ORIF, ankle CANCELLOUS SCREW FDA Start: 06-05-2019 ORIF, ankle CORTICAL SCREW FDA Start: 06-05-2019 ORIF, ankle CORTICAL SCREW FDA Start: 06-05-2019 ORIF, ankle CORTICAL SCREW FDA Start: 06-05-2019 ORIF, ankle CORTICAL SCREWS FDA Start: 06-05-2019 ORIF, ankle LOCKING DISTAL F IB PLATE-RIGHT FDA Start: 06-05-2019 ORIF, ankle LOCKING SCREW FDA Start: 06-05-2019 ORIF, ankle LOCKING SCREW FDA Start: 06-05-2019 ORIF, ankle CANCELLOUS SCREW FDA Start: 06-05-2019 ORIF, ankle LOCKING SCREW FDA Start: 06-05-2019 ORIF, ankle LOCKING SCREW FDA Start: 06-05-2019 ORIF, ankle TIGHTROPE, XP FDA Start: 06-05-2019 ORIF, ankle CANCELLOUS SCREW FDA Start: 06-05-2019 ORIF, ankle CORTICAL SCREW FDA Start: 06-05-2019 ORIF, ankle CORTICAL SCREW FDA Start: 06-05-2019 ORIF, ankle CORTICAL SCREW FDA Start: 06-05-2019 ORIF, ankle CORTICAL SCREWS FDA Start: 06-05-2019 ORIF, ankle LOCKING DISTAL F IB PLATE-RIGHT FDA Start: 06-05-2019 ORIF, ankle LOCKING SCREW FDA Start: 06-05-2019 ORIF, ankle LOCKING SCREW FDA Start: 06-05-2019 ORIF, ankle CANCELLOUS SCREW FDA Start: 06-05-2019 ORIF, ankle LOCKING SCREW FDA Start: 06-05-2019 ORIF, ankle LOCKING SCREW FDA Start: 06-05-2019 ORIF, ankle TIGHTROPE, XP FDA Start: 06-05-2019 ORIF, ankle CANCELLOUS SCREW FDA Start: 06-05-2019 ORIF, ankle CORTICAL SCREW FDA Start: 06-05-2019 ORIF, ankle CORTICAL SCREW FDA Start: 06-05-2019 ORIF, ankle CORTICAL SCREW FDA Start: 06-05-2019 ORIF, ankle CORTICAL SCREWS FDA Start: 06-05-2019 ORIF, ankle LOCKING DISTAL F IB PLATE-RIGHT FDA Start: 06-05-2019 ORIF, ankle LOCKING SCREW FDA Start: 06-05-2019 ORIF, ankle LOCKING SCREW FDA Start: 06-05-2019 ORIF, ankle CANCELLOUS SCREW FDA Start: 06-05-2019 ORIF, ankle LOCKING SCREW FDA Start: 06-05-2019 ORIF, ankle LOCKING SCREW FDA Start: 06-05-2019 ORIF, ankle TIGHTROPE, XP FDA Start: 06-05-2019 ORIF, ankle CANCELLOUS SCREW FDA Start: 06-05-2019 ORIF, ankle CORTICAL SCREW FDA Start: 06-05-2019 ORIF, ankle CORTICAL SCREW FDA Start: 06-05-2019 ORIF, ankle CORTICAL SCREW FDA Start: 06-05-2019 ORIF, ankle CORTICAL SCREWS FDA Start: 06-05-2019 ORIF, ankle LOCKING DISTAL F IB PLATE-RIGHT FDA Start: 06-05-2019 ORIF, ankle LOCKING SCREW FDA Start: 06-05-2019 ORIF, ankle LOCKING SCREW FDA Start: 06-05-2019 ORIF, ankle CANCELLOUS SCREW FDA Start: 06-05-2019 ORIF, ankle LOCKING SCREW FDA Start: 06-05-2019 ORIF, ankle LOCKING SCREW FDA Start: 06-05-2019 ORIF, ankle TIGHTROPE, XP FDA Start: 06-05-2019 ORIF, ankle CANCELLOUS SCREW FDA Start: 06-05-2019 ORIF, ankle CORTICAL SCREW FDA Start: 06-05-2019 ORIF, ankle CORTICAL SCREW FDA Start: 06-05-2019 ORIF, ankle CORTICAL SCREW FDA Start: 06-05-2019 ORIF, ankle CORTICAL SCREWS FDA Start: 06-05-2019 ORIF, ankle LOCKING DISTAL F IB PLATE-RIGHT FDA Start: 06-05-2019 ORIF, ankle LOCKING SCREW FDA Start: 06-05-2019 ORIF, ankle LOCKING SCREW FDA Start: 06-05-2019 ORIF, ankle CANCELLOUS SCREW FDA Start: 06-05-2019 ORIF, ankle LOCKING SCREW FDA Start: 06-05-2019 ORIF, ankle LOCKING SCREW FDA Start: 06-05-2019 ORIF, ankle TIGHTROPE, XP FDA Start: 06-05-2019 ORIF, ankle CANCELLOUS SCREW FDA Start: 06-05-2019 ORIF, ankle CORTICAL SCREW FDA Start: 06-05-2019 ORIF, ankle CORTICAL SCREW FDA Start: 06-05-2019 ORIF, ankle CORTICAL SCREW FDA Start: 06-05-2019 ORIF, ankle CORTICAL SCREWS FDA Start: 06-05-2019 ORIF, ankle LOCKING DISTAL F IB PLATE-RIGHT FDA Start: 06-05-2019 ORIF, ankle LOCKING SCREW FDA Start: 06-05-2019 ORIF, ankle LOCKING SCREW FDA Start: 06-05-2019 [id number] FDA Start: 03-01-2023 jorgito 40 FDA Start: 03-01-2023 jorgito 45 FDA Start: 03-01-2023 set screws FDA Start: 03-01-2023 set screws FDA Start: 03-01-2023 set screws FDA Start: 03-01-2023 set screws FDA Start: 03-01-2023 Collagen haemost atic agent, non-antimicrobial ()[id number] FDA Start: 03-01-2023 Plant polysaccha ride haemostatic agent, bioabsorbable ()[id number] FDA Start: 03-01-2023 GRAFT,ROBERT ELITE MED FDA S tart: 03-01-2023 PUTTY,BONE DBM 5 CC BENJAMIN FDA Start: 03-01-2023 SCREW 6.5 X 55 FDA Start: 03-01-2023 SCREW 6.5 X 55 FDA Start: 03-01-2023 SCREW 6.5 X 55 FDA Start: 03-01-2023 SCREW 6.5 X 55 FDA Start: 03-01-2023 SCREW 6.5 X 55 FDA Start: 03-01-2023 Talos-P Peek IBF D 11MM H x 9MM W x 26MM L FDA Start: 03-01-2023 [id number] FDA Start: 03-01-2023 jorgito 40 FDA Start: 03-01-2023 jorgito 45 FDA Start: 03-01-2023 set screws FDA Start: 03-01-2023 set screws FDA Start: 03-01-2023 set screws FDA Start: 03-01-2023 set screws FDA Start: 03-01-2023 GRAFT,ROBERT ELITE MED FDA S tart: 03-01-2023 PUTTY,BONE DBM 5 CC BENJAMIN FDA Start: 03-01-2023 SCREW 6.5 X 55 FDA Start: 03-01-2023 SCREW 6.5 X 55 FDA Start: 03-01-2023 SCREW 6.5 X 55 FDA Start: 03-01-2023 SCREW 6.5 X 55 FDA Start: 03-01-2023 SCREW 6.5 X 55 FDA Start: 03-01-2023 Talos-P Peek IBF D 11MM H x 9MM W x 26MM L FDA Start: 03-01-2023 [id number] FDA Start: 03-01-2023 [email or web address] 40 FDA Start: 03-01-2023 jorgito 45 FDA Start: 03-01-2023 set screws FDA Start: 03-01-2023 set screws FDA Start: 03-01-2023 set screws FDA Start: 03-01-2023 set screws FDA Start: 03-01-2023 GRAFT,ROBERT ELITE MED FDA S tart: 03-01-2023 PUTTY,BONE DBM 5 CC BENJAMIN FDA Start: 03-01-2023 SCREW 6.5 X 55 FDA Start: 03-01-2023 SCREW 6.5 X 55 FDA Start: 03-01-2023 SCREW 6.5 X 55 FDA Start: 03-01-2023 SCREW 6.5 X 55 FDA Start: 03-01-2023 SCREW 6.5 X 55 FDA Start: 03-01-2023 Talos-P Peek IBF D 11MM H x 9MM W x 26MM L FDA Start: 03-01-2023 [id number] FDA Start: 03-01-2023 jorgito 40 FDA Start: 03-01-2023 jorgito 45 FDA Start: 03-01-2023 set screws FDA Start: 03-01-2023 set screws FDA Start: 03-01-2023 set screws FDA Start: 03-01-2023 set screws FDA Start: 03-01-2023 GRAFT,ROBERT ELITE MED FDA S tart: 03-01-2023 PUTTY,BONE DBM 5 CC BENJAMIN FDA Start: 03-01-2023 SCREW 6.5 X 55 FDA Start: 03-01-2023 SCREW 6.5 X 55 FDA Start: 03-01-2023 SCREW 6.5 X 55 FDA Start: 03-01-2023 SCREW 6.5 X 55 FDA Start: 03-01-2023 SCREW 6.5 X 55 FDA Start: 03-01-2023 Talos-P Peek IBF D 11MM H x 9MM W x 26MM L FDA Start: 03-01-2023 [id number] FDA Start: 03-01-2023 jorgito 40 FDA Start: 03-01-2023 jorgito 45 FDA Start: 03-01-2023 set screws FDA Start: 03-01-2023 set screws FDA Start: 03-01-2023 set screws FDA Start: 03-01-2023 set screws FDA Start: 03-01-2023 GRAFT,ROBERT ELITE MED FDA S tart: 03-01-2023 PUTTY,BONE DBM 5 CC BENJAMIN FDA Start: 03-01-2023 SCREW 6.5 X 55 FDA Start: 03-01-2023 SCREW 6.5 X 55 FDA Start: 03-01-2023 SCREW 6.5 X 55 FDA Start: 03-01-2023 SCREW 6.5 X 55 FDA Start: 03-01-2023 SCREW 6.5 X 55 FDA Start: 03-01-2023 Talos-P Peek IBF D 11MM H x 9MM W x 26MM L FDA Start: 03-01-2023 [id number] FDA Start: 03-01-2023 [email or web address] 40 FDA Start: 03-01-2023 jorgito 45 FDA Start: 03-01-2023 set screws FDA Start: 03-01-2023 set screws FDA Start: 03-01-2023 set screws FDA Start: 03-01-2023 set screws FDA Start: 03-01-2023 GRAFT,ROBERT ELITE MED FDA S tart: 03-01-2023 PUTTY,BONE DBM 5 CC BENJAMIN FDA Start: 03-01-2023 SCREW 6.5 X 55 FDA Start: 03-01-2023 SCREW 6.5 X 55 FDA Start: 03-01-2023 SCREW 6.5 X 55 FDA Start: 03-01-2023 SCREW 6.5 X 55 FDA Start: 03-01-2023 SCREW 6.5 X 55 FDA Start: 03-01-2023 Talos-P Peek IBF D 11MM H x 9MM W x 26MM L FDA Start: 03-01-2023 [id number] FDA Start: 03-01-2023 [email or web address] 40 FDA Start: 03-01-2023 jorgito 45 FDA Start: 03-01-2023 set screws FDA Start: 03-01-2023 set screws FDA Start: 03-01-2023 set screws FDA Start: 03-01-2023 set screws FDA Start: 03-01-2023 GRAFT,ROBERT ELITE MED FDA S tart: 03-01-2023 PUTTY,BONE DBM 5 CC BENJAMIN FDA Start: 03-01-2023 SCREW 6.5 X 55 FDA Start: 03-01-2023 SCREW 6.5 X 55 FDA Start: 03-01-2023 SCREW 6.5 X 55 FDA Start: 03-01-2023 SCREW 6.5 X 55 FDA Start: 03-01-2023 SCREW 6.5 X 55 FDA Start: 03-01-2023 Talos-P Peek IBF D 11MM H x 9MM W x 26MM L FDA Start: 03-01-2023 [id number] FDA Start: 03-01-2023 [email or web address] 40 FDA Start: 03-01-2023 jorgito 45 FDA Start: 03-01-2023 set screws FDA Start: 03-01-2023 set screws FDA Start: 03-01-2023 set screws FDA Start: 03-01-2023 set screws FDA Start: 03-01-2023 GRAFT,ROBERT ELITE MED FDA S tart: 03-01-2023 PUTTY,BONE DBM 5 CC BENJAMIN FDA Start: 03-01-2023 SCREW 6.5 X 55 FDA Start: 03-01-2023 SCREW 6.5 X 55 FDA Start: 03-01-2023 SCREW 6.5 X 55 FDA Start: 03-01-2023 SCREW 6.5 X 55 FDA Start: 03-01-2023 SCREW 6.5 X 55 FDA Start: 03-01-2023 Talos-P Peek IBF D 11MM H x 9MM W x 26MM L FDA Start: 03-01-2023 [id number] FDA Start: 03-01-2023 [email or web address] 40 FDA Start: 03-01-2023 jorgito 45 FDA Start: 03-01-2023 set screws FDA Start: 03-01-2023 set screws FDA Start: 03-01-2023 set screws FDA Start: 03-01-2023 set screws FDA Start: 03-01-2023 GRAFT,ROBERT ELITE MED FDA S tart: 03-01-2023 PUTTY,BONE DBM 5 CC BENJAMIN FDA Start: 03-01-2023 SCREW 6.5 X 55 FDA Start: 03-01-2023 SCREW 6.5 X 55 FDA Start: 03-01-2023 SCREW 6.5 X 55 FDA Start: 03-01-2023 SCREW 6.5 X 55 FDA Start: 03-01-2023 SCREW 6.5 X 55 FDA Start: 03-01-2023 Talos-P Peek IBF D 11MM H x 9MM W x 26MM L FDA Start: 03-01-2023 [id number] FDA Start: 03-01-2023 [email or web address] 40 FDA Start: 03-01-2023 jorgito 45 FDA Start: 03-01-2023 set screws FDA Start: 03-01-2023 set screws FDA Start: 03-01-2023 set screws FDA Start: 03-01-2023 set screws FDA Start: 03-01-2023 GRAFT,ROBERT ELITE MED FDA S tart: 03-01-2023 PUTTY,BONE DBM 5 CC BENJAMIN FDA Start: 03-01-2023 SCREW 6.5 X 55 FDA Start: 03-01-2023 SCREW 6.5 X 55 FDA Start: 03-01-2023 SCREW 6.5 X 55 FDA Start: 03-01-2023 SCREW 6.5 X 55 FDA Start: 03-01-2023 SCREW 6.5 X 55 FDA Start: 03-01-2023 Talos-P Peek IBF D 11MM H x 9MM W x 26MM L FDA Start: 03-01-2023 [id number] FDA Start: 03-01-2023 [email or web address] 40 FDA Start: 03-01-2023 jorgito 45 FDA Start: 03-01-2023 set screws FDA Start: 03-01-2023 set screws FDA Start: 03-01-2023 set screws FDA Start: 03-01-2023 set screws FDA Start: 03-01-2023 GRAFT,ROBERT ELITE MED FDA S tart: 03-01-2023 PUTTY,BONE DBM 5 CC BENJAMIN FDA Start: 03-01-2023 SCREW 6.5 X 55 FDA Start: 03-01-2023 SCREW 6.5 X 55 FDA Start: 03-01-2023 SCREW 6.5 X 55 FDA Start: 03-01-2023 SCREW 6.5 X 55 FDA Start: 03-01-2023 SCREW 6.5 X 55 FDA Start: 03-01-2023 Talos-P Peek IBF D 11MM H x 9MM W x 26MM L FDA Start: 03-01-2023 [id number] FDA Start: 03-01-2023 [email or web address] 40 FDA Start: 03-01-2023 jorgito 45 FDA Start: 03-01-2023 set screws FDA Start: 03-01-2023 set screws FDA Start: 03-01-2023 set screws FDA Start: 03-01-2023 set screws FDA Start: 03-01-2023 GRAFT,ROBERT ELITE MED FDA S tart: 03-01-2023 PUTTY,BONE DBM 5 CC BENJAMIN FDA Start: 03-01-2023 SCREW 6.5 X 55 FDA Start: 03-01-2023 SCREW 6.5 X 55 FDA Start: 03-01-2023 SCREW 6.5 X 55 FDA Start: 03-01-2023 SCREW 6.5 X 55 FDA Start: 03-01-2023 SCREW 6.5 X 55 FDA Start: 03-01-2023 Talos-P Peek IBF D 11MM H x 9MM W x 26MM L FDA Start: 03-01-2023 [id number] FDA Start: 03-01-2023 [email or web address] 40 FDA Start: 03-01-2023 jorgito 45 FDA Start: 03-01-2023 set screws FDA Start: 03-01-2023 set screws FDA Start: 03-01-2023 set screws FDA Start: 03-01-2023 set screws FDA Start: 03-01-2023 GRAFT,ROBERT ELITE MED FDA S tart: 03-01-2023 PUTTY,BONE DBM 5 CC BENJAMIN FDA Start: 03-01-2023 SCREW 6.5 X 55 FDA Start: 03-01-2023 SCREW 6.5 X 55 FDA Start: 03-01-2023 SCREW 6.5 X 55 FDA Start: 03-01-2023 SCREW 6.5 X 55 FDA Start: 03-01-2023 SCREW 6.5 X 55 FDA Start: 03-01-2023 Talos-P Peek IBF D 11MM H x 9MM W x 26MM L FDA Start: 03-01-2023 [id number] FDA Start: 03-01-2023 [email or web address] 40 FDA Start: 03-01-2023 jorgito 45 FDA Start: 03-01-2023 set screws FDA Start: 03-01-2023 set screws FDA Start: 03-01-2023 set screws FDA Start: 03-01-2023 set screws FDA Start: 03-01-2023 GRAFT,ROBERT ELITE MED FDA S tart: 03-01-2023 PUTTY,BONE DBM 5 CC BENJAMIN FDA Start: 03-01-2023 SCREW 6.5 X 55 FDA Start: 03-01-2023 SCREW 6.5 X 55 FDA Start: 03-01-2023 SCREW 6.5 X 55 FDA Start: 03-01-2023 SCREW 6.5 X 55 FDA Start: 03-01-2023 SCREW 6.5 X 55 FDA Start: 03-01-2023 Talos-P Peek IBF D 11MM H x 9MM W x 26MM L FDA Start: 03-01-2023 Blood Sugar Diag nostic (Freestyle Lite Strips) strip Start: 09-10-2024 Lancets (Freesty le Lancets) 28 gauge misc Start: 09-10-2024 [id number] FDA Start: 03-01-2023 [email or web address] 40 FDA Start: 03-01-2023 jorgito 45 FDA Start: 03-01-2023 set screws FDA Start: 03-01-2023 set screws FDA Start: 03-01-2023 set screws FDA Start: 03-01-2023 set screws FDA Start: 03-01-2023 GRAFT,ROBERT ELITE MED FDA S tart: 03-01-2023 PUTTY,BONE DBM 5 CC BENJAMIN FDA Start: 03-01-2023 SCREW 6.5 X 55 FDA Start: 03-01-2023 SCREW 6.5 X 55 FDA Start: 03-01-2023 SCREW 6.5 X 55 FDA Start: 03-01-2023 SCREW 6.5 X 55 FDA Start: 03-01-2023 SCREW 6.5 X 55 FDA Start: 03-01-2023 Talos-P Peek IBF D 11MM H x 9MM W x 26MM L FDA Start: 03-01-2023 Blood Sugar Diag nostic (Freestyle Lite Strips) strip Start: 09-10-2024 Lancets (Freesty le Lancets) 28 gauge misc Start: 09-10-2024 [id number] FDA Start: 03-01-2023 [email or web address] 40 FDA Start: 03-01-2023 jorgito 45 FDA Start: 03-01-2023 set screws FDA Start: 03-01-2023 set screws FDA Start: 03-01-2023 set screws FDA Start: 03-01-2023 set screws FDA Start: 03-01-2023 GRAFT,ROBERT ELITE MED FDA S tart: 03-01-2023 PUTTY,BONE DBM 5 CC BENJAMIN FDA Start: 03-01-2023 SCREW 6.5 X 55 FDA Start: 03-01-2023 SCREW 6.5 X 55 FDA Start: 03-01-2023 SCREW 6.5 X 55 FDA Start: 03-01-2023 SCREW 6.5 X 55 FDA Start: 03-01-2023 SCREW 6.5 X 55 FDA Start: 03-01-2023 Talos-P Peek IBF D 11MM H x 9MM W x 26MM L FDA Start: 03-01-2023 Blood Sugar Diag nostic (Freestyle Lite Strips) strip Start: 11-07-2024 Lancets (Comfort Ez Lancets) 28 gauge misc Start: 11-07-2024 Lancets (Freesty le Lancets) 28 gauge misc Start: 09-10-2024 Blood Sugar Diag nostic (Freestyle Lite Strips) strip Start: 09-10-2024 End: 11-07-2024 [id number] FDA Start: 03-01-2023 [email or web address] 40 FDA Start: 03-01-2023 jorgito 45 FDA Start: 03-01-2023 set screws FDA Start: 03-01-2023 set screws FDA Start: 03-01-2023 set screws FDA Start: 03-01-2023 set screws FDA Start: 03-01-2023 GRAFT,ROBERT ELITE MED FDA S tart: 03-01-2023 PUTTY,BONE DBM 5 CC BENJAMIN FDA Start: 03-01-2023 SCREW 6.5 X 55 FDA Start: 03-01-2023 SCREW 6.5 X 55 FDA Start: 03-01-2023 SCREW 6.5 X 55 FDA Start: 03-01-2023 SCREW 6.5 X 55 FDA Start: 03-01-2023 SCREW 6.5 X 55 FDA Start: 03-01-2023 Talos-P Peek IBF D 11MM H x 9MM W x 26MM L FDA Start: 03-01-2023 Blood Sugar Diag nostic (Accu-Chek Guide Test Strips) strip Start: 11-14-2024 Lancets (Accu-Ch ek Softclix Lancets) misc Start: 11-14-2024 Blood Sugar Diag nostic (Accu-Chek Guide Test Strips) strip Start: 11-12-2024 End: 11-12-2024 Blood Sugar Diag nostic (Accu-Chek Guide Test Strips) strip Start: 11-12-2024 End: 11-13-2024 Blood Sugar Diag nostic (Accu-Chek Guide Test Strips) strip Start: 11-13-2024 End: 11-13-2024 Blood Sugar Diag nostic (Accu-Chek Guide Test Strips) strip Start: 11-13-2024 End: 11-14-2024 Blood Sugar Diag nostic (Accu-Chek Guide Test Strips) strip Start: 11-14-2024 End: 11-14-2024 Blood Sugar Diag nostic (Freestyle Lite Strips) strip Start: 09-10-2024 End: 11-07-2024 Blood Sugar Diag nostic (Freestyle Lite Strips) strip Start: 11-07-2024 End: 11-12-2024 Lancets (Accu-Ch ek Softclix Lancets) misc Start: 11-14-2024 End: 11-14-2024 Lancets (Comfort Ez Lancets) 28 gauge misc Start: 11-07-2024 End: 11-14-2024 Lancets (Freesty le Lancets) 28 gauge misc Start: 09-10-2024 End: 11-12-2024 Lancing Device W ith Lancets (Accu-Chek Soft Dev Lancets) kit Start: 11-12-2024 End: 11-12-2024 Lancing Device W ith Lancets (Accu-Chek Soft Dev Lancets) kit Start: 11-12-2024 End: 11-13-2024 Lancing Device W ith Lancets (Accu-Chek Soft Dev Lancets) kit Start: 11-13-2024 End: 11-13-2024 Lancing Device W ith Lancets (Accu-Chek Soft Dev Lancets) kit Start: 11-13-2024 End: 11-14-2024 [id number] FDA Start: 03-01-2023 [email or web address] 40 FDA Start: 03-01-2023 jorgito 45 FDA Start: 03-01-2023 set screws FDA Start: 03-01-2023 set screws FDA Start: 03-01-2023 set screws FDA Start: 03-01-2023 set screws FDA Start: 03-01-2023 GRAFT,ROBERT ELITE MED FDA S tart: 03-01-2023 PUTTY,BONE DBM 5 CC BENJAMIN FDA Start: 03-01-2023 SCREW 6.5 X 55 FDA Start: 03-01-2023 SCREW 6.5 X 55 FDA Start: 03-01-2023 SCREW 6.5 X 55 FDA Start: 03-01-2023 SCREW 6.5 X 55 FDA Start: 03-01-2023 SCREW 6.5 X 55 FDA Start: 03-01-2023 Talos-P Peek IBF D 11MM H x 9MM W x 26MM L FDA Start: 03-01-2023 Blood Sugar Diag nostic (Accu-Chek Guide Test Strips) strip Start: 11-14-2024 Lancets (Accu-Ch ek Softclix Lancets) misc Start: 11-14-2024 Blood Sugar Diag nostic (Accu-Chek Guide Test Strips) strip Start: 11-12-2024 End: 11-12-2024 Blood Sugar Diag nostic (Accu-Chek Guide Test Strips) strip Start: 11-12-2024 End: 11-13-2024 Blood Sugar Diag nostic (Accu-Chek Guide Test Strips) strip Start: 11-13-2024 End: 11-13-2024 Blood Sugar Diag nostic (Accu-Chek Guide Test Strips) strip Start: 11-13-2024 End: 11-14-2024 Blood Sugar Diag nostic (Accu-Chek Guide Test Strips) strip Start: 11-14-2024 End: 11-14-2024 Blood Sugar Diag nostic (Freestyle Lite Strips) strip Start: 09-10-2024 End: 11-07-2024 Blood Sugar Diag nostic (Freestyle Lite Strips) strip Start: 11-07-2024 End: 11-12-2024 Lancets (Accu-Ch ek Softclix Lancets) misc Start: 11-14-2024 End: 11-14-2024 Lancets (Comfort Ez Lancets) 28 gauge misc Start: 11-07-2024 End: 11-14-2024 Lancets (Freesty le Lancets) 28 gauge misc Start: 09-10-2024 End: 11-12-2024 Lancing Device W ith Lancets (Accu-Chek Soft Dev Lancets) kit Start: 11-12-2024 End: 11-12-2024 Lancing Device W ith Lancets (Accu-Chek Soft Dev Lancets) kit Start: 11-12-2024 End: 11-13-2024 Lancing Device W ith Lancets (Accu-Chek Soft Dev Lancets) kit Start: 11-13-2024 End: 11-13-2024 Lancing Device W ith Lancets (Accu-Chek Soft Dev Lancets) kit Start: 11-13-2024 End: 11-14-2024 Goals Date Patient Goal Desired Activity /State Functional Status Date Assessment Result Facility 06-25-2024 Functional [facility] Performed Other: 7am - 4pm [facility] 06-25-2024 Functional Status bilateral knee high applied/on [facility] 06-25-2024 Functional Status Single level home [facility] 06-25-2024 Functional Status Door open, Room check performed [facility] 06-25-2024 [facility] 06-25[facility]24 Functional Status [facility] 06-24-2024 Functional Status [facility] 06-24-2024 Functional Status Sensory Deficits None A [facility] 06-24-2024 Functional Status Repositions self [facility] 06-24-2024 Functional Status More than 8 hours [facility] 03-04-2023 Functional status Ambulates [facility] Work Phone: 02-09-2022 Functional Status Room check performed [facility] 02-09-2022 Functional Status [facility] 02-08-2022 Functional Status Min A [facility] 02-08-2022 Functional Status [facility] 02-08-2022 Functional Status ice on [facility] 02-08-2022 Functional Status Maintained [facility] 01-25-2022 Functional Status Sensory Deficits None A [facility] Mental Status Date Assessment Result Facility 06-25-2024 [facility] 06-24-2024 Mental Status [facility] 03-04-2023 Cognitive function Voice/Name [facility] Work Phone: 02-09-2022 Mental Status Orientation Asse ssment Oriented x 4 [facility] 02-09-2022 Mental Status Orientation Oriented x 4 [facility] 02-08-2022 Mental Status [facility] Clinical Notes 02-08-2022 to 09-02-2024 Note Date & Type Note Facility 09-02-2024 Evaluation note Diagnosis Onset Date Resolution Obesity (BMI 30-39.9) chronic Sep 11:23am HESHAM (obstructive sleep apnea) chronic September 02, 2024 11:23am Concern about memory acute [facility] 2024 1:41pm Anxiety and depression chronic [facility] 2024 1:41pm Essential hypertension chronic [facility] 2024 1:41pm OAB (overactive bladder) chronic October 31 1:41pm Type 2 diabetes mellitus chronic October 31 1:41pm [facility] Work Phone: 1(661) 243-763706-20-2025 Chief complaint+Reason for visit Narrative * Chief Complaint Admit Date Referral Order August 22, 2024 2:22 pm 1 Y FU September 02, 2024 11:23 am LT KNEE REPLACEMENT, SURGERY 06/24, RX HE RE September 26, 2024 3:00pm TYPE 2 DM September 30, 2024 10:3 3am 3 M FU October 31, 2024 1: 41pm E ORDER November 01, 2024 9: 00am TYPE 2 DM November 05, 2024 10:20am Reason for Visit Admit Date Obesity (BMI 30-39.9) September 02, 2024 11: 23am HESHAM (obstructive sleep apnea) September 02, 2024 11:23am Concern about memory October 31, 2024 1 :41pm Anxiety and depression October 31, 2024 1:41pm Essential hypertension October 31, 2024 1:41pm OAB (overactive bladder) October 31 1:41pm Type 2 diabetes mellitus October 31 1:41pm [facility] Work Phone: 1(355) 969-162605-20-2025 Evaluation note* Diagnosis Onset Date Resolution Status Admit Date Abnormal finding present on diagnostic imaging of uterus acute July 22, 2024 10:37am Constipation acute July 22 10:37am Pelvic adhesions acute July 10:37am Constipation acute July 29 2:20pm Anxiety and depression chronic 2024 1:09pm Chronic abdominal pain chronic 2024 1:09pm Essential hypertension chronic Ma y 2024 1:09pm Hyperlipidemia chronic July 30, 2024 1:09pm Type 2 diabetes mellitus chronic July 30, 2024 1:09pm Obesity (BMI 30-39.9) chronic Sep 11:23am HESHAM (obstructive sleep apnea) chroni c September 02, 2024 11:23am Concern about memory acute 2024 1:41pm Anxiety and depression chronic [facility] 2024 1:41pm Essential hypertension chronic [facility] 2024 1:41pm OAB (overactive bladder) chronic October 31, 2024 1:41pm Type 2 diabetes mellitus chronic October 31, 2024 1:41pm [facility] Work Phone: 1(327) 961-286805-06-2025 Evaluation note* Diagnosis Onset Date Resolution Status Admit Date Coronary artery disease chronic M ay 2024 11:31am Edema of both lower legs chronic July 08, 2024 11:31am Essential hypertension chronic Ma 2024 11:31am Hyperlipidemia chronic July 08 11:31am Abnormal finding present on diagnostic imaging of uterus acute July 22, 2024 10:37am Constipation acute July 22 10:37am Pelvic adhesions acute July 10:37am Constipation acute July 29 2:20pm Anxiety and depression chronic 2024 1:09pm Chronic abdominal pain chronic 2024 1:09pm Essential hypertension chronic Ma y 2024 1:09pm Hyperlipidemia chronic July 30, 2024 1:09pm Type 2 diabetes mellitus chronic July 30, 2024 1:09pm Obesity (BMI 30-39.9) chronic Sep 11:23am HESHAM (obstructive sleep apnea) chroni c September 02, 2024 11:23am [facility] Work Phone: 1(723) 382-131204-23-2025 Note Discharge Instructions Thank you for allowing [facility] to assist you with your healthcare needs. The following is importantdischarge information regarding your hospital visit. Your Care Team CHRISTOPHER KRUGER APRN, CNP, LISA APRN - CNP Your Diagnosis History of DVT (deep vein thrombosis) HTN (hypertension) Sleep apnea Status post left knee replacement What to do next Follow Up Appointments Follow Up with [facility] When:06/27/2024 11:00 AM EDT Where:[address] [place] [address]- [phone] Additional Information: This is your first physical therapy appointment. Follow- up as scheduled. Follow Up with WILBER YADAV PA-C, Orthopedic When:07/07/2024 01:45 PM EDT Where:[facility] [address], [place] [id number]- Additional Information: This is your post-op appointment. Follow-up as scheduled. Allergies codeine ringing in ears, rash penicillin rash Medications Please ask your primary doctor or pharmacist before taking any other medication not listed, including over the counter drugs, herbal medications, vitamins and or supplements as they may interact withyour home medications. What How Much When Why Instructions Last Dose New acetaminophen (Tylenol) 1,000 Milligram by mouth Every 8 hours TODAY @ 12 PM New docusate-senna (Senokot S 50 mg-8.6 mg oral tablet) 2 tab(s) by mouth Two (2) times a day Duration: 3 Days Take until first bowel movement and then as needed. Pickup at [facility] TODAY @ 9AM New doxycycline (doxycycline hyclate 100 mg oral capsule) 1 cap by mouth Every 12 hours Duration: 14 Days Pickup at [facility] 1811 TODAY @ 9AM New famotidine (Pepcid 20 mg oral tablet) 1 tab(s) by mouth Once a day Pickup at [facility] 1811 TODAY @ 9AM New oxyCODONE (oxyCODONE 5 mg oral tablet ( IMMEDIATE release )) See instructions Status post left knee replacement 1-2 tab(s) Oral q4h, As needed for as needed for pain Pickup at [facility] 1811 TODAY @ 9AM New rivaroxaban (Xarelto 10 mg oral tablet) 1 tab(s) by mouth Once a day History of DVT (deep vein thrombosis) Duration: 14 Days Pickup at [facility] 181 TODAY @ 9AM Unchanged amLODIPine (amLODIPine 5 mg oral tablet) 1 tab(s) by mouth Once a day (in the evening) TODAY @ 9AM Unchanged ascorbic acid (Vitamin C 250 mg oral tablet) 1 tab(s) by mouth Once a day DID NOT TAKE Unchanged cholecalciferol (Vitamin D3 25 mcg (1000 intl units) oral capsule) 1 cap by mouth Every day DID NOT TAKE Unchanged cholecalciferol (Vitamin D3) 50 Microgram by mouth Every day DID NOT TAKE Unchanged cyanocobalamin (Eligen B12 1000 mcg oral tablet) 1 tab(s) by mouth Once a day DID NOT TAKE Unchanged furosemide (furosemide 40 mg oral tablet) 1 tab(s) by mouth Two (2) times a day TODAY @ 9AM Unchanged herbal/ nutritional product 2 gummies by mouth Every day DID NOT TAKE Unchanged herbal/ nutritional product 2 gummies by mouth Every day DID NOT TAKE Unchanged herbal/ nutritional product 2 gummies by mouth Every day DID NOT TAKE Unchanged magnesium citrate (magnesium citrate 100 mg oral capsule) 2 cap by mouth Once a day DID NOT TAKE Unchanged mirabegron (Myrbetriq 25 mg oral tablet, extended release) 25 Milligram by mouth Once a day TODAY @ 9AM Unchanged multivitamin (Vitamin D and K oral tablet) 2 cap by mouth Every day DID NOT TAKE Unchanged olmesartan (olmesartan 40 mg oral tablet) 1 tab(s) by mouth Every day TODAY @ 9AM Unchanged potassium chloride (Potassium Chloride (Eqv-K-Tab) 20 mEq oral tablet, extended release) 1 tab(s) by mouth Three (3) times a day Take with food TODAY @ 9AM Unchanged venlafaxine (venlafaxine 150 mg oral capsule, extended release) 1 cap by mouth Once a day Take with food TODAY @ 9AM Unchanged vitamin E (vitamin E 400 intl units oral capsule) 1 cap by mouth Every day DID NOT TAKE Pharmacy Information [facility] [facility]: [id number] [place], [place] [id number] [phone] What How Much When Comments Stop Taking aspirin (aspirin 81 mg oral delayed release tablet) 1 tab(s) by mouth Every day Please take this list to your next doctor s visit. Bring all medications you take, including over the counter medications, herbals and other supplements with you to your doctor s visit. Patients and families are reminded to discard old lists and to update any records with all medication providers or retail pharmacies. Medication Leaflets doxycycline (oral/injection) (SCOTT robison) Acticlate, Adoxa, Alodox, Avidoxy, Doryx, Lymepak, Mondoxyne NL, Monodox, Morgidox, Okebo, Oracea, Targadox What is the most important information I should know about doxycycline? You should not take this medicine if you are allergic to any tetracycline antibiotic. Children younger than 8 years old should use doxycycline only in cases of severe or life-threatening conditions. This medicine can affect tooth development and growth and cause permanent yellowing orgraying of the teeth in children. Using doxycycline during could harm the unborn baby or cause permanent tooth discoloration later in the baby's life. What is doxycycline? Doxycycline is used to treat many different bacterial infections, such as acne, urinary tract infections, intestinal infections, respiratory infections, eye infections, certain sexually transmitted infections, periodontitis (gum disease), and others. Doxycycline is also used to treat blemishes, bumps, and acne-like lesions caused by rosacea. Doxycycline will not treat facial redness caused by rosacea. Some forms of doxycycline are used to prevent malaria, to treat anthrax, or to treat infections caused by mites, ticks, or lice. Doxycycline may also be used for purposes not listed in this medication guide. What should I discuss with my healthcare provider before using doxycycline? You should not use this medicine if you are allergic to doxycycline or other tetracycline antibiotics such as demeclocycline, minocycline, tetracycline, or tigecycline. Tell your doctor if you have or have ever had: increased pressure inside your skull; diarrhea or diarrhea that is watery; stomach surgery; vision problems; vagina infection; take iron supplements, multivitamins, calcium supplements, laxatives, medicine containing bismuth subsalicylate, or antacids containing aluminum, calcium, or magnesium; use a proton pump inhibitor (such as omeprazole, esomeprazole, Nexium, Prevacid, Prilosec, or Protonix); if you also take isotretinoin or acitretin, seizure medicine, or a blood thinner such as warfarin (Coumadin); or liver or kidney disease. If you are using doxycycline to treat gonorrhea, your doctor may test you to make sure you do not also have syphilis, another sexually transmitted disease. Taking this medicine during may affect tooth and bone development in the unborn baby. Taking doxycycline during the last half of can cause permanent tooth discoloration later in the baby's life. Tell your doctor if you are or plan to become . Doxycycline can make control pills less effective. Ask your doctor about other control options such as an injection, implant, skin patch, vaginal ring, condom, diaphragm, cervical cap, orcontraceptive sponge. Doxycycline can pass into breast milk and may affect bone and tooth development in a nursing . Do not breastfeed while you are taking doxycycline, and for at least 5 days after your last dose. Doxycycline can affect tooth development and growth and cause permanent yellowing or graying of theteeth in children younger than 8 years old. Children should use doxycycline only in cases of severeor life-threatening conditions such as anthrax or [place] spotted fever. The benefit of treating a serious condition may outweigh any risks to the child's tooth development. How should I use doxycycline? Follow all directions on your prescription label and read all medication guides or instruction sheets. Use the medicine exactly as directed. Your doctor will perform tests to make sure doxycycline is the right treatment for you. Take doxycycline with a full glass of water. Drink plenty of liquids while you are taking doxycycline. Most brand forms of doxycyline may be taken with food or milk if the medicine upsets your stomach. Different brand forms of doxycycline may have different instructions about taking them with or without food. Take Oracea on an empty stomach, at least 1 hour before or 2 hours after a meal. Swallow a delayed-release capsule or tablet whole. Do not crush, chew, break, or open it. Measure liquid medicine with the supplied measuring device (not a kitchen spoon). If you take doxycycline to prevent malaria: Start taking the medicine 1 or 2 days before entering an area where malaria is common. Continue taking the medicine every day during your stay and for at least 4 weeks after you leave the area. Doxycycline may be given as an infusion into a vein. A healthcare provider will give you this injection. Keep using this medicine even if your symptoms quickly improve. Skipping doses could make your infection resistant to medication. Doxycycline will not treat a viral infection (flu or a common cold). Store at room temperature away from moisture, heat, and light. What happens if I miss a dose? Call your doctor for instructions if you miss a dose or if you miss an appointment for your doxycycline injection. What happens if I overdose? Seek emergency medical attention or call the Poison Help line at . What should I avoid while using doxycycline? Do not take iron supplements, multivitamins, calcium supplements, laxatives, bismuth subsalicylate,or antacids containing aluminum, calcium, or magnesium within 2 hours before or after using doxycycline. Avoid taking any other antibiotics with doxycycline unless your doctor has told you to. Doxycycline could make you sunburn more easily. Avoid sunlight or tanning beds. Wear protective clothing and use sunscreen (SPF 30 or higher) when you are outdoors. Antibiotic medicines can cause diarrhea, which may be a sign of a new infection. If you have diarrhea that is watery or bloody, call your doctor. Do not use anti-diarrhea medicine unless your doctor tells you to. What are the possible side effects of doxycycline? Get emergency medical help if you have signs of an allergic reaction (hives, difficult breathing, swelling in your face or throat) or a severe skin reaction (fever, sore throat, burning eyes, skin pain, red or purple skin rash with blistering and peeling). Seek medical treatment if you have a serious drug reaction that can affect many parts of your body.Symptoms may include: skin rash, fever, swollen glands, flu- like symptoms, muscle aches, severe weakness, unusual bruising, or yellowing of your skin or eyes. This reaction may occur several weeks after you began using doxycycline. Call your doctor at once if you have: fever, chills, rapid breathing, headaches, rapid heart rate, skin lesion, low blood pressure; severe stomach pain, diarrhea that is watery or bloody; throat irritation, trouble swallowing; chest pain, irregular heart rhythm, feeling short of breath; little or no urination; low white blood cell counts--fever, chills, swollen glands, body aches, weakness, pale skin, easy bruising or bleeding; increased pressure inside the skull--severe headaches, ringing in your ears, dizziness, nausea, vision problems, pain behind your eyes; or signs of liver or pancreas problems--loss of appetite, upper stomach pain (that may spread to your back), tiredness, nausea or vomiting, fast heart rate, dark urine, jaundice (yellowing of the skin or eyes). Common side effects may include: headache, sinus infection, pain in the nose and throat; reversible discoloration of the surface of adult teeth; flu-like symptoms; high blood pressure; nausea, vomiting, upset stomach, loss of appetite; stomach pain or bloating; change in certain blood tests; diarrhea; skin rash or itching; darkened skin color; or vaginal itching or discharge. This is not a complete list of side effects and others may occur. Call your doctor for medical advice about side effects. You may report side effects to FDA at 5-860-JRZ-9373. What other drugs will affect doxycycline? Sometimes it is not safe to use certain medicines at the same time. Some drugs can affect your blood levels of other drugs you use, which may increase side effects or make the medicines less effective. Other drugs may affect doxycycline, including prescription and qbyr-sbk-trwfakp medicines, vitamins, and herbal products. Tell your doctor about all other medicines you use. Where can I get more information? Your doctor or pharmacist can provide more information about doxycycline. Remember, keep this and all other medicines out of the reach of children, never share your medicines with others, and use this medication only for the indication prescribed. Every effort has been made to ensure that the information provided by [employer]. [employer]') is accurate, up-to-date, and complete, but no guarantee is made to that effect. Drug information contained herein may be time sensitive. [employer] information has been compiled for use by healthcare practitioners and consumers in the [place] and therefore [employer] does not warrant that uses outside of the [place] are appropriate, unless specifically indicated otherwise. [employer] drug information does not endorse drugs, diagnose patients or recommend therapy. [employer] drug information isan informational resource designed to assist licensed healthcare practitioners in caring for their p atients and/or to serve consumers viewing this service as a supplement to, and not a substitute for, the expertise, skill, knowledge and judgment of healthcare practitioners. The absence of a warningfor a given drug or drug combination in no way should be construed to indicate that the drug or drug combination is safe, effective or appropriate for any given patient. [employer] does not assume any responsibility for any aspect of healthcare administered with the aid of information [facility] provides. The information contained herein is not intended to cover all possible uses, directions, precautions, warnings, drug interactions, allergic reactions, or adverse effects. If you have questions about the drugs you are taking, check with your doctor, nurse or pharmacist. Copyright 6088-2462 [facility] [employer]. Version: 25.03. Revision Date: 06/17/2024. famotidine (oral/injection) (fam [place] ti zita) Heartburn Relief, Pepcid, Pepcid AC, Pepcid AC Maximum Strength, Zantac 360 What is the most important information I should know about famotidine? Follow all directions on the label and package. Use exactly as directed. What is famotidine? Famotidine is used to treat and prevent ulcers in the stomach and intestines. It also treats conditions in which the stomach produces too much acid, such as Jp-Moreland syndrome. Famotidine also treats gastroesophageal reflux disease (GERD) and other conditions in which acid backs up from the stomach into the esophagus, causing heartburn. The Zantac 360 brand of this medicine does not contain ranitidine, a medicine that was withdrawn from market in the [place]. Famotidine may also be used for purposes not listed in this medication guide. What should I discuss with my healthcare provider before taking famotidine? Heartburn can feel like a heart attack. Get emergency medical help if you have chest pain that spreads to your jaw or shoulder. You should not use this medicine if you are allergic to famotidine or similar medicines such as ranitidine (Zantac), cimetidine (Tagamet), or nizatidine (Axid). Ask a doctor or pharmacist if this medicine is safe to use if you have: kidney disease; liver disease; cancer stomach; or long QT syndrome (in you or a family member). Ask a doctor before using this medicine if you are or . How should I take famotidine? Use exactly as directed on the label, or as prescribed by your doctor. Famotidine oral is taken by mouth. Famotidine injection is given in a vein if you are unable to take the medicine by mouth. You may take famotidine oral with or without food. Measure liquid medicine with the supplied syringe or a dose-measuring device (not a kitchen spoon). Most ulcers heal within 4 weeks of famotidine treatment, but it may take up to 8 weeks of using this medicine before your ulcer heals. Keep using the medication as directed. Call your doctor if the condition you are treating with famotidine does not improve, or if it gets worse while using famotidine. Your treatment may also include changes in diet or lifestyle habits. Follow all instructions of your doctor or dietitian. Store at room temperature away from moisture, heat, and light. Do not allow the liquid medicine to freeze. Throw away any unused famotidine liquid that is older than 30 days. What happens if I miss a dose? Take the medicine as soon as you can, but skip the missed dose if it is almost time for your next dose. Do not take two doses at one time. What happens if I overdose? Seek emergency medical attention or call the Poison Help line at . What should I avoid while taking famotidine? Drinking alcohol may increase the risk of damage to your stomach. Avoid taking other stomach acid reducers unless your doctor has told you to. However, you may take an antacid (such as Maalox, Mylanta, Gaviscon, Milk of Magnesia, Rolaids, or Tums) with famotidine. What are the possible side effects of famotidine? Get emergency medical help if you have signs of an allergic reaction: hives; difficult breathing; swelling of your face, lips, tongue, or throat. Stop using famotidine and call your doctor at once if you have: confusion, hallucinations, agitation, lack of energy; a seizure; fast or pounding heartbeats, sudden dizziness (like you might pass out); or unexplained muscle pain, tenderness, or weakness especially if you also have fever, unusual tiredness, and dark colored urine. Some side effects may be more likely in older adults and in people who have severe kidney disease. Common side effects may include: headache; dizziness; or constipation or diarrhea. This is not a complete list of side effects and others may occur. Call your doctor for medical advice about side effects. You may report side effects to FDA at 8-302-TRV-0740. What other drugs will affect famotidine? Famotidine oral can make it harder for your body to absorb other medicines you take by mouth. Tell your doctor if you are taking: cefditoren; dasatinib; delavirdine; fosamprenavir; or tizanidine (if you are taking famotidine liquid). This list is not complete. Other drugs may affect famotidine, including prescription and kwfk-vcn-ereykhb medicines, vitamins, and herbal products. Not all possible drug interactions are listed here. Where can I get more information? Your doctor or pharmacist can provide more information about famotidine. Remember, keep this and all other medicines out of the reach of children, never share your medicines with others, and use this medication only for the indication prescribed. Every effort has been made to ensure that the information provided by [employer]. [employer]') is accurate, up-to-date, and complete, but no guarantee is made to that effect. Drug information contained herein may be time sensitive. [employer] information has been compiled for use by healthcare practitioners and consumers in the [place] and therefore [employer] does not warrant that uses outside of the [place] are appropriate, unless specifically indicated otherwise. [employer] drug information does not endorse drugs, diagnose patients or recommend therapy. [employer] drug information isan informational resource designed to assist licensed healthcare practitioners in caring for their p atients and/or to serve consumers viewing this service as a supplement to, and not a substitute for, the expertise, skill, knowledge and judgment of healthcare practitioners. The absence of a warningfor a given drug or drug combination in no way should be construed to indicate that the drug or drug combination is safe, effective or appropriate for any given patient. [employer] does not assume any responsibility for any aspect of healthcare administered with the aid of information [employer] provides. The information contained herein is not intended to cover all possible uses, directions, precautions, warnings, drug interactions, allergic reactions, or adverse effects. If you have questions about the drugs you are taking, check with your doctor, nurse or pharmacist. Copyright 6021-5980 [employer]. Version: .. Revision Date: 09/25/2022. oxycodone (ox i KOE done) Oxaydo, OxyCONTIN, Roxicodone, RoxyBond, Xtampza ER What is the most important information I should know about oxycodone? MISUSE OF OPIOID MEDICINE CAN CAUSE ADDICTION, OVERDOSE, OR . Fatal side effects may occur if you also drink alcohol or use other drugs that cause drowsiness or slow breathing. Using opioid medicine during may cause life-threatening withdrawal symptoms in the . What is oxycodone? Oxycodone is an opioid pain medication used to treat moderate to severe pain. Oxycodone is usually given after other treatments did not work or were not tolerated. Extended-release oxycodone is for igqbzf-rwz-cfnwh treatment of severe and chronic pain that requires longer treatment. This medicine is not for use on an as-needed basis. Oxycodone may also be used for purposes not listed in this medication guide. What should I discuss with my healthcare provider before taking oxycodone? You should not use oxycodone if you are allergic to it, or if you have severe asthma, breathing problems or a stomach or bowel obstruction (including paralytic ileus). Tell your doctor if you have ever had: other breathing problems, sleep apnea (breathing that stops during sleep); a head injury, brain tumor, high pressure inside the skull, or seizures, drug or alcohol addiction,or mental illness; if you have used an MAO inhibitor in the past 14 days, such as isocarboxazid, linezolid, methylene blue injection, phenelzine, or tranylcypromine; urination problems, problems with your gallbladder, pancreas, thyroid, or adrenal gland; or liver or kidney disease. Most forms of oxycodone are not approved for use in people under 18 years old. The extended-releasetablets should not be given to a child younger than 11 years old. Tell your doctor if you also use stimulant medicine, opioid medicine, herbal products, or medicine for depression, mental illness, Parkinson's disease, migraine headaches, serious infections, or prevention of nausea and vomiting. An interaction with oxycodone could cause a serious condition called serotonin syndrome. May harm an unborn baby. Tell your doctor if you are or plan to become . If you use oxycodone during , your baby could be born with life-threatening withdrawal symptoms, andmay need medical treatment for several weeks. Do not breastfeed. Oxycodone in breast milk can cause life-threatening side effects in a nursing baby. Long-term oxycodone may affect fertility in men or women. could be harder to achieve while either parent is using this medicine. How should I take oxycodone? Follow the directions on your prescription label and read all medication guides or instruction sheets. Never use oxycodone in larger amounts, or for longer than prescribed. Tell your doctor if you feel an increased urge to use more of this medicine. Never share opioid medicine with another person, especially someone with a history of drug addiction. MISUSE CAN CAUSE ADDICTION, OVERDOSE, OR . Keep the medicine where others cannot get to it. Selling or giving away this medicine is against the law. Never crush a pill or use the liquid to inhale the mixture or inject it into your vein. This could result in . Your dose needs may change if you switch to a different brand, strength, or form of this medicine. Avoid medication errors by using exactly as directed on the label, or as prescribed by your doctor. Stop taking all other odbmoc-rse-xpndf opioid pain medicines when you start taking extended-releaseoxycodone. Swallow the extended-release forms whole to avoid exposure to a potentially fatal overdose. Do not crush, chew, break, open, or dissolve. Take the extended-release capsules with food. Read and carefully follow the instructions for use onhow to prepare and take this medicine if you cannot swallow extended release capsules whole or you use a feeding tube. Ask your doctor or pharmacist if you don't understand these instructions. Measure liquid medicine with the supplied measuring device (not a kitchen spoon). You may be given other medications to help prevent or treat certain side effects. You may have withdrawal symptoms if you stop using oxycodone suddenly. Ask your doctor before stopping the medicine. Store at room temperature away from moisture and heat. Keep your medicine in a place where no one can use it improperly. Do not keep leftover medicine. Just one dose can cause in someone using it accidentally or improperly. Ask your pharmacist about a drug take-back program, or flush the unused medicine down the toilet. What happens if I miss a dose? Since oxycodone is used for pain, you are not likely to miss a dose. Skip any missed dose if it is almost time for your next dose. Do not use two doses at one time. What happens if I overdose? Seek emergency medical attention or call the Poison Help line at . An overdose can befatal, especially in a child or person using opioid medicine without a prescription. Your doctor may recommend you get naloxone (a medicine to reverse an opioid overdose) and keep it with you at all times. A person caring for you can give the naloxone if you stop breathing or don't wake up. Your caregiver must still get emergency medical help and may need to perform CPR (cardiopulmonary resuscitation) on you while waiting for help to arrive. Anyone can buy naloxone from a pharmacy or local health department. Make sure any person caring foryou knows where you keep naloxone and how to use it. What should I avoid while taking oxycodone? Do not drink alcohol or any products that contain alcohol. Dangerous side effects or could occur. Avoid driving or hazardous activity until you know how this medicine will affect you. Dizziness or drowsiness can causing falls, accidents, or severe injuries. Also avoid getting up too fast from a sitting or lying position, or you may feel dizzy. What are the possible side effects of oxycodone? Get emergency medical help if you have signs of an allergic reaction: hives, difficult breathing, swelling of your face, lips, tongue, or throat. Opioid medicine can slow or stop your breathing, and may occur, especially if you drink alcohol or use other drugs that cause drowsiness or slow breathing. A person caring for you should give naloxone and/or seek emergency medical attention if you have slow breathing with long pauses, blue colored lips, or if you are hard to wake up. Call your doctor at once if you have: slow heart rate, weak pulse, fainting, slow breathing (breathing may stop); chest pain, fast or pounding heartbeats; a seizure, extreme drowsiness; or decreased adrenal gland hormones--nausea, vomiting, stomach pain, loss of appetite, feeling tired or light-headed, muscle or joint pain, skin discoloration, craving salty foods. Serious breathing problems may be more likely in older adults and in those who are debilitated or have wasting syndrome or chronic breathing disorders. Seek medical attention right away if you have symptoms of serotonin syndrome, such as: agitation, hallucinations, fever, sweating, shivering, fast heart rate, muscle stiffness, twitching, loss of coordination, nausea, vomiting, or diarrhea. Common side effects may include: sleep problems (insomnia), itching; drowsiness, headache, dizziness, tiredness; or constipation, stomach pain, nausea, vomiting. This is not a complete list of side effects and others may occur. Call your doctor for medical advice about side effects. You may report side effects to FDA at 8-112-NCD-7339. What other drugs will affect oxycodone? You may have a fatal oxycodone overdose if you start or stop using certain medicines. Tell your doctor about all your medications. Tell your doctor about all your medications especially if you use medicine to treat HIV, antibiotic, antifungal medication, or seizure medication. Many other drugs can be dangerous when used with opioid medicine. Tell your doctor if you also use: medicine for allergies, asthma, blood pressure, motion sickness, irritable bowel, or overactive bladder; other opioid medicines, a benzodiazepine sedative like Valium, Klonopin, or Xanax; sleep medicine, muscle relaxers, or other drugs that make you drowsy; or drugs that affect serotonin, such as antidepressants, stimulants, or medicine for migraines or Parkinson's disease. This list is not complete and many other drugs may affect oxycodone. This includes prescription aawbsoa-sti-junincg medicines, vitamins, and herbal products. Not all possible drug interactions are listed here. Where can I get more information? Your doctor or pharmacist can provide more information about oxycodone. Remember, keep this and all other medicines out of the reach of children, never share your medicines with others, and use this medication only for the indication prescribed. Every effort has been made to ensure that the information provided by [employer]. ('[employer]') is accurate, up-to-date, and complete, but no guarantee is made to that effect. Drug information contained herein may be time sensitive. [employer] information has been compiled for use by healthcare practitioners and consumers in the [place] and therefore [employer] does not warrant that uses outside of the [place] are appropriate, unless specifically indicated otherwise. [employer] drug information does not endorse drugs, diagnose patients or recommend therapy. [employer] drug information isan informational resource designed to assist licensed healthcare practitioners in caring for their p atients and/or to serve consumers viewing this service as a supplement to, and not a substitute for, the expertise, skill, knowledge and judgment of healthcare practitioners. The absence of a warningfor a given drug or drug combination in no way should be construed to indicate that the drug or drug combination is safe, effective or appropriate for any given patient. [facility] does not assume any responsibility for any aspect of healthcare administered with the aid of information [facility] provides. The information contained herein is not intended to cover all possible uses, directions, precautions, warnings, drug interactions, allergic reactions, or adverse effects. If you have questions about the drugs you are taking, check with your doctor, nurse or pharmacist. Copyright 7829-[address] [facility]. Version: 17.. Revision Date: 03/27/2023. docusate and senna (DOK ashu sate and SEN a) Colace 2-in-1, Senexon-S, Senna Plus, Senna S, Senna-Time S, Senokot S, SenoSol- SS, Stool Softener + Stimulant Laxative, Stool Softener with Laxative What is the most important information I should know about docusate and senna? Use exactly as directed on the label, or as prescribed by your doctor. What is docusate and senna? Docusate is a stool softener. Senna is a laxative. Docusate and senna is a combination medicine used to treat occasional constipation. Docusate and senna may also be used for purposes not listed in this medication guide. What should I discuss with my healthcare provider before using docusate and senna? You should not use this medicine if you are allergic to docusate or senna, or if you are also taking mineral oil. Ask a doctor or pharmacist if this medicine is safe to use if you have ever had: nausea or vomiting; stomach pain; a sudden change in bowel habits that lasts for 2 weeks or longer; or an intestinal disorder such as Crohn's disease or ulcerative colitis. Ask a doctor before using this medicine if you are or . Do not give this medicine to a child younger than 2 years old without medical advice. How should I use docusate and senna? Use exactly as directed on the label, or as prescribed by your doctor. Take docusate and senna with a full glass of water. It may be best to take this medicine at night or at bedtime. Docusate and senna should cause you tohave a bowel movement within 6 to 12 hours. Do not take docusate and senna for longer than 7 days in a row, unless your doctor tells you to. Call your doctor if your constipation does not improve or if it gets worse after taking docusate and senna. Store at room temperature away from moisture and heat. What happens if I miss a dose? Since docusate and senna is used when needed, you may not be on a dosing schedule. Skip any missed dose if it's almost time for your next dose. Do not use two doses at one time. What happens if I overdose? Seek emergency medical attention or call the Poison Help line at . Overdose symptoms may include nausea, vomiting, stomach pain, or diarrhea. What should I avoid while using docusate and senna? Ask a doctor or pharmacist before using any other laxative or other stool softener that may containingredients similar to docusate or senna. What are the possible side effects of docusate and senna? Get emergency medical help if you have signs of an allergic reaction: hives; difficulty breathing; swelling of your face, lips, tongue, or throat. Stop using docusate and senna and call your doctor at once if you have: rectal bleeding; severe stomach pain, nausea, vomiting; or no bowel movement. Common side effects may include: gas, bloating; diarrhea; or mild nausea. This is not a complete list of side effects and others may occur. Call your doctor for medical advice about side effects. You may report side effects to FDA at 3-215-XBR-5582. What other drugs will affect docusate and senna? Other drugs may affect docusate and senna, including prescription and xgro-hhj-yokoywk medicines, vitamins, and herbal products. Tell your doctor about all your current medicines and any medicine youstart or stop using. Where can I get more information? Your pharmacist can provide more information about docusate and senna. Remember, keep this and all other medicines out of the reach of children, never share your medicines with others, and use this medication only for the indication prescribed. Every effort has been made to ensure that the information provided by [employer]. ('[employer]') is accurate, up-to-date, and complete, but no guarantee is made to that effect. Drug information contained herein may be time sensitive. [employer] information has been compiled for use by healthcare practitioners and consumers in the [place] and therefore [employer] does not warrant that uses outside of the [place] are appropriate, unless specifically indicated otherwise. [employer] drug information does not endorse drugs, diagnose patients or recommend therapy. [employer] drug information isan informational resource designed to assist licensed healthcare practitioners in caring for their p atients and/or to serve consumers viewing this service as a supplement to, and not a substitute for, the expertise, skill, knowledge and judgment of healthcare practitioners. The absence of a warningfor a given drug or drug combination in no way should be construed to indicate that the drug or drug combination is safe, effective or appropriate for any given patient. [employer] does not assume any responsibility for any aspect of healthcare administered with the aid of information [employer] provides. The information contained herein is not intended to cover all possible uses, directions, precautions, warnings, drug interactions, allergic reactions, or adverse effects. If you have questions about the drugs you are taking, check with your doctor, nurse or pharmacist. Copyright 4788-1120 [employer]. Version: 5.01. Revision Date: 10/09/2022. rivaroxaban (ZEKE a JOSE LUIS a ban) Xarelto, Xarelto Starter Pack What is the most important information I should know about rivaroxaban? Do not stop taking rivaroxaban without your doctor's advice. Stopping it suddenly can increase yourrisk of blood clots or stroke. Some drugs can increase your risk of bleeding when used with rivaroxaban. Tell your doctor about all other medicines you use. Call your doctor at once if you or your child have signs of bleeding such as: headaches, feeling very weak or dizzy, bleeding gums, nosebleeds, heavy menstrual periods or abnormal vaginal bleeding, blood in your urine, bloody or tarry stools, coughing up blood, vomit that looks like coffee grounds or any bleeding that will not stop. Rivaroxaban can cause a very serious blood clot around your spinal cord if you undergo a spinal tapor receive spinal anesthesia (epidural). Tell any doctor who treats you that you are taking rivaroxaban. What is rivaroxaban? Rivaroxaban is used to treat or prevent blood clots (venous thromboembolism, or VTE). Blood clots can occur in the legs (deep vein thrombosis, DVT) or the lungs (pulmonary embolism, PE). Rivaroxaban is sometimes used to lower your risk of a blood clot coming back after you have received treatment for blood clots for at least 6 months in adults, and at least 5 days in children from to less than 18 years of age. Rivaroxaban is also given together with aspirin to lower the risk of stroke, heart attack, or otherserious heart and blood circulation problems in adults with coronary artery disease (clogged arteries) or peripheral artery disease (reduced blood flow to the legs), including adults who recently hada procedure to improve blood flow to the legs. Rivaroxaban can also be used to prevent blood clots in adults that are not able to move as normal during and after a hospital stay or after a hip or knee replacement surgery. Rivaroxaban can be used to prevent blood clots in children 2 years and older that have undergone surgery for a heart disease present at . Rivaroxaban is also used to lower the risk of stroke and blood clots in adults with atrial fibrillation (a heart rhythm disorder). Rivaroxaban may also be used for purposes not listed in this medication guide. What should I discuss with my healthcare provider before taking rivaroxaban? You should not use rivaroxaban if you are allergic to it, or if you have active or uncontrolled bleeding. Rivaroxaban can make it easier for you to bleed, even from a minor injury. Call your doctor if you have bleeding that will not stop. Rivaroxaban can cause a serious blood clot if you undergo a procedure such as a spinal tap or receive spinal anesthesia (epidural). This type of blood clot could cause permanent or long-term paralysis. Tell your doctor if you have or ever had: a history of problems with your spine or a spinal surgery; a history of difficult or repeated spinal taps; a thin tube (catheter) placed in your back to give you certain medicine; bleeding problems; an artificial heart valve; antiphospholipid syndrome, an immune system disorder that increases the risk of blood clots; taken NSAIDs (nonsteroidal anti-inflammatory drugs)--aspirin, ibuprofen (Advil, Motrin), naproxen (Aleve), and other medicines that prevent blood from clotting; or liver or kidney disease. (more content not included)... [facility]04-23-2025 Hospital Discharge instructions Patient Education 06/25/2024 08:35:04 5 - [facility] Post-op Instruction 10/2016 (Custom) (CUSTOM) [facility] Post-operative Instructions PLEASE FOLLOW [facility] POST-OP INSTRUCTIONS GIVEN WATCH FOR SIGNS OF INFECTION: call the office ([phone]) if experencing any of the following: (Usually appears 36-48 hours after surgery) Increased temperature (101 degrees Fahrenheit or higher) Redness or swelling Increased uncontrolled pain Foul odor or drainage Calf discomfort Significant swelling Or if having any chest pain, shortness of breath, or difficulty breathing or swallowing call the office or go the nearest Emergency Room. If you have any questions, please call your doctor at the number listed on your follow up instructions. Form: 338A (18171) R: 07/09 Follow Up Care 05/22/2024 11:28:04 With:[facility] Address: [address] [place] [phone] When:06/27/2024 11:00:00 Comments:This is your first physical therapy appointment. Follow-up as scheduled. With:WILBER YADAV PA-C, Orthopedic Address: [facility] [address] [place] [phone] When:07/07/2024 13:45:00 Comments:This is your post-op appointment. Follow-up as scheduled. [facility] 04-23-2025 Pastoral care Progress note Pastoral Care Note Entered On: 06/25/2024 9:49 EDT Performed On: 06/25/2024 9:47 EDT by Wilber Regan Pastoral Care Type of Pastoral Visit : Initial visit Spiritual Care Visit Initiated by : Consult/Referral Spiritual Care Reason for Visit : General Pastoral Care Referral From : Patient Spiritual Assessment : Faithful, Hopeful, Grateful/Thankful, Positive Image of God, Good Cindy Group Support Spiritual Care Emotional Assessment : Accepting of Situation, Anxious/Worried Spiritual Care Intervention : Active listening, Affirmation, Explore Spiritual Needs, Explore Emotional Needs, Prayer with Patient/Family Spiritual Outcomes : Identifies Reasons for Hope, Expresses Cindy Spiritual Plan of Care : No Further Action Pastoral Care Comments : patient reports on her current and past surgeries while expecting another surgery later this year; pt reviews how God has brought her through the difficulties and how she hasreceived a spiritual vision of her hope for living; pt has family and yarsani help; pt is talkative;pt welcomes prayer Pastoral Care Visit Length : 15 minute(s) Wilber Regan - 06/25/2024 9:47 EDT Digitally Signed by Wilber Regan on 06/25/2024 09:47 AM [facility]04-23-2025 Note* Exam Date Time Procedure Performing Provider Status 06/25/24 9:32 AM VL Venous US/Doppler One Leg (for DVT). SAURABH HERRERA MD; Auth (Verified) [facility]04-23-2025 Note Date of Service 06/25/2024 Subjective Patient appears to be comfortable in bed. Patient states that she is doing very well today and is very pleased with how good of the night she had. Patient stated that they have been up working with physical therapy. Patient states that she has been up throughout the night walking. Patient states that pain has been adequately controlled on medications. Patient denies any shortness of breath, chestpain, calf pain, fever, chills, dizziness, nausea, and vomiting. Patient denies any adverse events overnight. Objective Vitals and Measurements T: 36.5 C (Oral) TMIN: 36 C TMAX: 36.9 C (Temporal Artery) HR: 85 (Monitored) RR: 16 BP: 147/70 SpO2: 96% HT: 170 cm WT: 111.5 kg BMI: 38.58 Intake and Output 7AM Yesterday to 7AM Today Intake and Output (Last 24 hours) Intake Administration Information 852.41 Oral Intake 240.00 Supplement Intake 180.00 Output Intra-Op EBL 200.00 Urine Count 2.00 Total Summary Total Intake 1272.41 Total Output 200.00 Fluid Balance 1072.41 Physical Exam 1. ROBERTO hose in place bilaterally. 2. SCDs are in place bilaterally. 3. Dressing is clean dry and intact. 4. Dorsiflexion and plantarflexion are performed actively without pain or restriction. 5. Sensation intact to light touch to saphenous, sural, superficial and deep peroneal, and tibial distribution. 6. Neurovascularly intact. 7. Positive Homans on the left. 8. Negative Homans on the right. 9. Vitals are stable and afebrile. Weight Dosing Weight: 111.5 kg (06/24/24) Dosing Weight: 111.5 kg (06/24/24) Medications Medications (27) Active Scheduled: (16) acetaminophen 500 mg Tablet 1,000 mg 2 tab(s), Oral, q8h amLODIPine 5 mg tablet 5 mg 1 tab(s), Oral, qPM bisacodyl 5 mg EC tablet 10 mg 2 tab(s), Oral, Once docusate sodium 100 mg Capsule 100 mg 1 cap(s), Oral, BID docusate-senna (Senokot S) 50 mg-8.6 mg Tablet 2 tab(s), Oral, BID doxycycline hyclate 100 mg Capsule 100 mg 1 cap(s), Oral, q12h famotidine 20 mg tablet 20 mg 1 tab(s), Oral, qDay furosemide 40 mg tablet 40 mg 1 tab(s), Oral, BID losartan 50 mg tablet 100 mg 2 tab(s), Oral, qDay magnesium hydroxide 8% Suspension 30 mL UD 30 mL, Oral, Daily mirabegron 25 mg ER tablet 25 mg 1 tab(s), Oral, qDay multivitamin (Myadec) with minerals Therapeutic Multiple Vitamins with Minerals Tablet 1 tab(s), Oral, qDayM ondansetron 2 mg/ 1 mL 2 mL INJ 4 mg 2 mL, IV Push, q8h potassium chloride 20 mEq ER tablet 20 mEq 1 tab(s), Oral, TID rivaroxaban 10 mg tablet 10 mg 1 tab(s), Oral, qDay venlafaxine 75 mg ER capsule 150 mg 2 cap(s), Oral, qDay Continuous: (1) Lactated Ringers 1,000 mL 1,000 mL, Intravenous, 100 mL/hr PRN: (10) acetaminophen 325 mg Tablet 650 mg 2 tab(s), Oral, q4h diphenhydramine 25 mg tablet 25 mg 1 tab(s), Oral, q6h diphenhyDRAMINE 50 mg/mL (1 mL) INJ 25 mg 0.5 mL, IV Push, q6h ketorolac 30 mg/mL (1 mL) vial 15 mg 0.5 mL, IV Push, q6h morphine 2 mg/mL 1 mL syringe 2 mg 1 mL, IV Push, q1h ondansetron 2 mg/ 1 mL 2 mL INJ 4 mg 2 mL, IV Push, q8h oxycodone 5 mg tablet (immediate release) 10 mg 2 tab(s), Oral, q4h oxycodone 5 mg tablet (immediate release) 5 mg 1 tab(s), Oral, q4h prochlorperazine 10 mg/2 mL vial 5 mg 1 mL, IV Push, q6h sodium biphosphate-sodium phosphate 19 gm-7 gm Enema 133 mL, Rectal, qDay Lab Results 06/25 05:19 WBC: 11.6 H Hgb: 12.0 Hct: 35.6 Platelet: 304 Neutrophil %: 83.5 H Glucose Level: 227 H Sodium Level: 141 Potassium Level: 4.6 BUN: 20 H Creatinine Lvl (s): 0.57 EKG No qualifying data available. Assessment/Plan Orders: VL Venous US/Doppler One Leg (for DVT), 06/25/24 8:28:00 EDT, Pain, [facility], Wheelchair, Left Leg, [facility], 06/25/24 8:28:00 EDT, [facility] Ordering Location 1. Status post left total knee arthroplasty operative day 1. 2. DVT prophylaxis: Patient will be on Xarelto for 2 weeks due to history of DVT. Patient will be on aspirin for 2 weeks following the Xarelto. Patient was educated not to take any anti-inflammatory medications while taking Xarelto. 3. Patient does have a positive Homans on the left and with a history of multiple blood clots we will order a Doppler ultrasound to rule out DVT. As long as patient's Doppler ultrasound is negative we will continue on current DVT prophylaxis regimen and patient will be okay for discharge. 4. Pain medication: Patient will be on Tylenol, and oxycodone as needed for pain control. We are managing postoperative pain control. Patient is in pain management with Dr. Schilling but he does not prescribe any narcotic pain medication. OARRS report was reviewed today. The risk of abuse potential for narcotic pain medication was reviewed. Patient was advised on strict motor vehicle or operate heavy equipment while taking narcotic pain medication. They were instructed to use a minimal amount of narcotic pain medication as required for current pain and decreased its use as appropriate for pain.Patient voiced understanding. 5. Physical therapy: Patient has worked with physical therapy and has done well. Patient has outpatient physical therapy scheduled for 06/27. 6. H&H: 12.0/35.6 asymptomatic. 7. Reactive leukocytosis: Currently 11.6, afebrile. Patient did receive Decadron intraoperatively. No clinical signs of infection at this time. 8. Constipation: Patient was instructed to take senna as instructed until their first bowel movement to decrease risk of impaction following surgery. Patient was instructed if they have not yet had abowel movement in 3 days to call our office for reevaluation. 9. Incentive spirometer: Patient was encouraged to use the incentive spirometer every hour that they are awake for the first week to exercise long and decrease risk of postoperative lung infection. 10. Patient will continue with doxycycline for 2 weeks postoperatively. Patient is on doxycycline due to positive staph. I discussed with the patient potential side effects with doxycycline includinghypersensitivity to sunlight and must take appropriate precautions. Also recommended probiotic while taking the antibiotic for 2 weeks postoperatively. Patient voiced understanding. 11. Continue postoperative medical management per medicine. 12. Disposition: Patient is currently doing well and states that she is eager to get home. Patient states that she is very pleased with how well the night she had and how good she feels. Patient is okay for discharge as long as pain maintains adequately controlled, patient works with and is clearedby physical therapy, and is okay per medicine recommendations. Patient's medications will be sent to pharmacy of choice which is [facility]. Patient does have outpatient physical therapy scheduled for 06/27 as well as 2-week follow-up appointment scheduled for 07/07. Patient was encouraged to call us with any questions, concerns, new problems. All questions were answered to the best my ability. This dictation was created using voice recognition software. Phonetic and/or grammatical errors mayexist. Digitally Signed by RADHA BEY PA-C on 06/25/2024 08:34 AM [facility]04-22-2025 Note* Exam Date Time Procedure Performing Provider Status 06/24/24 2:35 PM US Anesthesia Block Auth (Verified) [id number] ORIGINAL Images acquired, not reported on this accession number. [facility]04-22-2025 Note* Exam Date Time Procedure Performing Provider Status 06/24/24 1:17 PM XR Knee 1 or 2 Views Left BROOKE TELLEZ DO; Auth (Verified) [id number] ORIGINAL EXAMINATION: TWO XRAY VIEWS OF THE LEFT KNEE 06/24/2024 1:17 pm COMPARISON: CT knee 05/28/2024.. HISTORY: ORDERING SYSTEM PROVIDED HISTORY: Reason for Exam: Status Post Arthroplasty FINDINGS: Status post left knee arthroplasty. Hardware is intact and in appropriate alignment without evidence of loosening. No evidence of periprosthetic fracture. Skin vanessa are noted. Soft tissue gas and small joint effusion along the knee joint is postoperative in etiology. IMPRESSION: Expected postsurgical changes of left knee arthroplasty. Interpreted by: Barry Tellez Preliminary Report By: Barry Tellez Electronically signed By Barry Tellez Dictated Date: 06/24/2024 1:23:18 PM Prelim Date: 06/24/2024 1:25:14 PM Sign Date: 06/24/2024 1:25:14 PM Ordering Provider: CHRISTOPHER KRUGER [facility]04-22-2025 Anesthesiology Consult note Patient: IRENE BERG Age: 74 years Sex: Female : 1950 Associated Diagnoses: None Author: LONA OSBORNE APRN-JUAN Preoperative Information Anesthesia history Patient's history: negative. Family's history: negative. Health Status Allergies: Allergic Reactions (Selected) Severity Not Documented Codeine- Rash and ringing in ears. Penicillin- Rash., Allergies (2) ActiveSeverityReaction codeinerash, ringing in ears penicillinrash Current medications: (Selected) Inpatient Medications Ordered Betadine 10% topical solution: 17.5 mL, mL/hr, Topical (INT), PREOP pharm Bicitra: 30 mL, Oral, PREOP pharm Bolus LR 1000 mL: 1,000 mL, IV Bolus, PREOP pharm CeleBREX: 400 mg, 2 cap(s), Oral, PREOP pharm Cyklokapron IVPB: 2,000 mg, 20 mL, 0 mL/hr, Topical (INT), PREOP pharm Decadron: 10 mg, 1 mL, IV Push, AsDirected LR 1000 mL: 20 mL/hr, Intravenous LR 1000 mL: 20 mL/hr, Intravenous, Stop: 06/25/24 17:59:00 EDT Naropin 25 mg + Toradol 15 mg + morphine 2.5 mg + EPINEPHrine 0.3 m mg, 5 mL, mL/hr, Other, PREOP pharm Naropin 25 mg + Toradol 15 mg + morphine 2.5 mg + EPINEPHrine 0.3 m mg, 5 mL, mL/hr, Other, PREOP pharm Pepcid IV: 20 mg, 2 mL, IV Push, PREOP pharm ceFAZolin: 2 gram(s), 200 mL/hr, IV Piggyback, PREOP pharm oxyCODONE 10 mg oral tablet, ( extended release ): 10 mg, 1 tab(s), Oral, PREOP pharm vancomycin: 1,750 mg, 35 mL, 306 mL/hr, IV Piggyback, PREOP pharm Documented Medications Documented Eligen B12 1000 mcg oral tablet: 1 tab(s), Oral, qDay, 30 tab(s), 0 Refill(s) Myrbetriq 25 mg oral tablet, extended release: 25 mg, Oral, qDay, 0 Refill(s) Potassium Chloride (Eqv-K-Tab) 20 mEq oral tablet, extended release: 20 mEq, 1 tab(s), Oral, TID, Take with food, 30 tab(s), 0 Refill(s) Vitamin C 250 mg oral tablet: 250 mg, 1 tab(s), Oral, qDay, 30 tab(s), 0 Refill(s) Vitamin D and K oral tablet: 2 cap(s), Oral, Daily, 0 Refill(s) Vitamin D3 25 mcg (1000 intl units) oral capsule: 25 mcg, 1 cap(s), Oral, Daily, 0 Refill(s) Vitamin D3: 50 mcg, 1 tab(s), Oral, Daily, 0 Refill(s) amLODIPine 5 mg oral tablet: 5 mg, 1 tab(s), Oral, qPM, 0 Refill(s) aspirin 81 mg oral delayed release tablet: 81 mg, 1 tab(s), Oral, Daily, 0 Refill(s) furosemide 40 mg oral tablet: 40 mg, 1 tab(s), Oral, BID, 0 Refill(s) herbal/nutritional product: 2 gummies, Oral, Daily, 0 Refill(s) herbal/nutritional product: 2 gummies, Oral, Daily, 0 Refill(s) herbal/nutritional product: 2 gummies, Oral, Daily, 0 Refill(s) magnesium citrate 100 mg oral capsule: 200 mg, 2 cap(s), Oral, qDay olmesartan 40 mg oral tablet: 40 mg, 1 tab(s), Oral, Daily, 0 Refill(s) venlafaxine 150 mg oral capsule, extended release: 150 mg, 1 cap(s), Oral, qDay, Take with food, 0 Refill(s) vitamin E 400 intl units oral capsule: 400 International_Unit, 1 cap(s), Oral, Daily, 0 Refill(s), Medications (14) Active Scheduled: (12) ceFAZolin 2 gram(s), IV Piggyback, PREOP pharm celecoxib 200 mg capsule 400 mg 2 cap(s), Oral, PREOP pharm citric acid-sodium citrate 334 mg-500 mg/5 mL (30 mL) Blank UD 30 mL, Oral, PREOP pharm dexamethasone 10 mg/mL (1mL) SDV 10 mg 1 mL, IV Push, AsDirected famotidine 20 mg/2 mL vial 20 mg 2 mL, IV Push, PREOP pharm Lactated Ringers Injection 1000 mL * Bolus * 1,000 mL, IV Bolus, PREOP pharm oxyCODONE 10 mg ER tablet 10 mg 1 tab(s), Oral, PREOP pharm povidone iodine topical 17.5 mL, Topical (INT), PREOP pharm ropivacaine 25 mg + ketorolac 15 mg + morphine 2.5 mg + epinephrine 0.3 mg 25 mg 5 mL, Other, PREOPpharm ropivacaine 25 mg + ketorolac 15 mg + morphine 2.5 mg + epinephrine 0.3 mg 25 mg 5 mL, Other, PREOPpharm tranexamic acid 2,000 mg 20 mL, Topical (INT), PREOP pharm vancomycin 1,750 mg 35 mL, IV Piggyback, PREOP pharm Continuous: (2) Lactated Ringers 1000 mL 1,000 mL, Intravenous, 20 mL/hr Lactated Ringers Infusion 1000 mL 1,000 mL, Intravenous, 20 mL/hr PRN: (0) Problem list: Medical Chest pain / SNOMED CT 82703885 / Confirmed, Active Problems (10) Brain fog Chest pain Dependent edema DVT (deep venous thrombosis) Fibromyalgia HTN (hypertension) Neck pain OA (osteoarthritis) Oxygen dependent Sleep apnea Histories Past Medical History: No active or resolved past medical history items have been selected or recorded. Family History: Diabetes mellitus Mother Sister Heart disease Father Stroke Sister Cancer Mother HTN - Hypertension Mother Father Procedure history: Cervical spinal fusion by anterior technique ([id number]) on 02/08/2022 at 72 Years. Comments: 02/08/2022 11:19 Tita Enriquez RN C5-6, C6-7 Arthroscopy of knee ([id number]). Comments: 01/25/2022 13:50 Tita Enriquez RN Right Tonsillectomy ([id number]). Open wound of left lower leg due to animal bite ([id number]). History of partial thyroidectomy (3770140394). section ([id number]). Comments: 01/25/2022 13:50 Tita Enriquez RN x2 ORIF - Open reduction of fracture of ankle with internal fixation ([id number]). Comments: 01/25/2022 13:50 Tita Enriquez RN Right Fusion of lumbar spine ([id number]). Comments: 05/28/2024 12:25 EDT Tita Merchant RN L4-L5 TL - Tubal ligation ([id number]). 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 Airway: Normal temporomandibular joint mobility. Mallampati classification: II (soft palate, fauces, uvula visible). Dentition Evaluation: Dentures, lower, Dentures, upper. Respiratory: Lungs are clear to auscultation, Respirations are non-labored. Cardiovascular: Normal rate, Regular rhythm. Neurologic: Alert, Oriented. Review / Management Results review: No qualifying data available , Lab results: 06/24/2024 9:41 EDT SN - Preop - CTm Pt in SDS Room 06/24/2024 9:22 . Assessment and Plan [place] [employer] (ASA) physical status classification: Class III. Anesthetic Preoperative Plan Anesthetic technique: Spinal. Regional: Spinal. Postoperative pain management: adductor canal. Risks discussed: nausea, vomiting, headache, hypotension, allergic reaction, serious complications. Informed consent: signed by patient. Digitally Signed by LONA OSBORNE on 06/24/2024 09:46 AM [facility]04-15-2025 Radiology Diagnostic study note [facility] Imaging Services [address], [place] [address] Pelvic w/ Transvaginal MR#: [id number] Acct: [id number] Name: IRENE BERG Rep #: [id number] : 1950 F 74 From: Garry Mathew MD PCP: Dr. Delta Sahu MD Status: R EG CLI Study:Pelvic w/ Transvaginal Date of Exam: 06/16/24 Exam# [id number] Ordering Dr: Alonso Sahu MD PROCEDURE: PELVIC W/ TRANSVAGINAL REASON FOR EXAM: ABNORMAL UETRINE FINDING TECHNIQUE: Transabdominal and transvaginal pelvic ultrasound COMPARISON: None FINDINGS: Measurements: Uterus: 7.4 cm x 4.7 cm x 3.5 cm with a volume of 63.1 mL Endometrial Thickness: 1.6 mm Right Ovary: Not visualized. Left Ovary: Not visualized. TRANSABDOMINAL: Uterus: 8 mm x 7 mm x 8 mm posterior fundal fibroid. Adjacent to this, there saleem 6 mm x 5 mm x 4 mmfibroid. Endometrium: 1.6 mm Right ovary: Not visualized Left ovary: Not visualized Transvaginal sonography was performed to better visualize the endometrium. TRANSVAGINAL: Uterus: Fibroid uterus as described. Endometrium: 1.6 mm Right ovary: Not visualized Left ovary: Not visualized Other adnexal findings: None. Cul-de-sac: No free intraperitoneal fluid identified. Tenderness: No tenderness US/Pelvic w/ Transvaginal IMPRESSION: Small uterine fibroids. The ovaries were not visualized. Reading Location: [place] [address] CC: Dr. 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 [facility]04-04-2025 Chief complaint+Reason for visit Narrative * Chief Complaint Admit Date WANTS A REFERRAL FOR OBGYN June 06 2:03pm ABNORMAL UTERINE FINDING June 16 3:29pm CONSTIPATION July 02, 2024 11: 25am CONSTIPATION July 02, 2024 4:0 3pm 6 M FU July 08, 2024 11:31a m FIBROIDS (BIM) July 22, 2024 10:37 am RLQ PAIN July 29, 2024 2:20p m 3 M FU July 30, 2024 1:09p m Referral Order August 22, 2024 2:22 pm 1 Y FU September 02, 2024 11:23 am LT KNEE REPLACEMENT, SURGERY 06/24, RX HE RE September 26, 2024 3:00pm TYPE 2 DM September 30, 2024 10:3 3am Reason for Visit Admit Date Abnormal finding present on diagnostic i maging of uterus June 06, 2024 2:03pm Coronary artery disease July 08, 2024 11 :31am Edema of both lower legs July 08, 2024 1 1:31am Essential hypertension July 08, 2024 11: 31am Hyperlipidemia July 08, 2024 11:31a m Abnormal finding present on diagnostic i maging of uterus July 22, 2024 10:37am Constipation July 22, 2024 10:37 am Pelvic adhesions July 22, 2024 10:37 am Constipation July 29, 2024 2:20p m Anxiety and depression July 30, 2024 1: 09pm Chronic abdominal pain July 30, 2024 1: 09pm Essential hypertension July 30, 2024 1: 09pm Hyperlipidemia July 30, 2024 1:09p m Type 2 diabetes mellitus July 30, 2024 1:09pm Obesity (BMI 30-39.9) September 02, 2024 11: 23am HESHAM (obstructive sleep apnea) September 02, 2024 11:23am [facility] Work Phone: 1(714) 220-268904-04-2025 Evaluation note* Diagnosis Onset Date Resolution Status Admit Date Abnormal finding present on diagnostic imaging of uterus acute Apr 2024 2:03pm Coronary artery disease chronic M ay 2024 11:31am Edema of both lower legs chronic July 08, 2024 11:31am Essential hypertension chronic Ma y 2024 11:31am Hyperlipidemia chronic July 08, 2 025 11:31am Abnormal finding present on diagnostic imaging of uterus acute July 22, 2024 10:37am Constipation acute July 22 10:37am Pelvic adhesions acute July 10:37am Constipation acute July 29 2:20pm Anxiety and depression chronic Ma y 2024 1:09pm Chronic abdominal pain chronic Ma y 2024 1:09pm Essential hypertension chronic Ma y 2024 1:09pm Hyperlipidemia chronic July 30, 2024 1:09pm Type 2 diabetes mellitus chronic July 30, 2024 1:09pm Obesity (BMI 30-39.9) chronic Sep 11:23am HESHAM (obstructive sleep apnea) chroni c September 02, 2024 11:23am [facility] Work Phone: 1(479) 774-734404-02-2025 Procedure note [facility] Speech Pathology [address] [place] [address] Modified Barium Swallow Study MR#: [id number] Acct: [id number] Name: IRENE BERG Anne Rep #:[id number] : 1950 74 From: Cammy Maloney [facility] made error inputting the study date. Study was completed on 06/03/2024. Modified Barium Swallow Patient Information Study Date: 06/04/24 Study Time: 13:00 Direct Billable Minutes: 80 Total Minutes procedure & reportin Diagnosis: Dysphagia R13.10 Referring Physician: Delta Sahu Reason for Referral: Assess swallow function, assess risk for aspiration, and determine recommendations for least restrictive diet textures and compensatory strategies to improve safety of swallow. Medical History: The patient reports hx of difficulty swallowing for years (pt unsure exact duration) characterized by sensation of throat being crowded, dryness in mouth/throat, food sitting in her throat (improving w/ liquid wash), coughing onher own saliva, regurgitated food into throat 1X. Her PCP referred her for MBSS to further assess concerns for swallowing difficulty. Current Diet Ordered: Regular textures / Thin liquids Dentition: Upper Dentures and Lower Dentures Mental Status: WNL Respiratory Status: Oxygenating on Room Air Penetration-Aspiration Scale Penetration-Aspiration Scale: OBJECTIVE ASSESSMENT OF SWALLOW FUNCTION (QUANTITATIVE ? PER TRIAL): PENETRATION / ASPIRATION SCALE (ROJAS): 1 = does not enter airway 2 = enters airway/above vocal folds/ejected 3 = enters airway/above vocal folds/not ejected 4 = enters airway/contacts vocal folds/ejected 5 = enters airway/contacts vocal folds/not ejected 6 = enters airway/below vocal folds/ejected 7 = enters airway/below vocal folds/not ejected despite effort 8 = enters airway/below vocal folds/no effort VIDEOFLOROSCOPIC SCALE SCORE (ROJAS): Grade I = aspiration of material that has penetrated into the laryngeal vestibule, intact cough reflex Grade II = aspiration < 10 % of the bolus, intact cough reflex Grade III = aspiration of < 10 % of the bolus, reduced cough reflex or aspiration of > 10 % of the bolus, intact cough reflex Grade IV = aspiration of > 10 % of the bolus, reduced cough reflex Penetration-Aspiration Scale Score Thin Liquid via teaspoon: Result: 2= enter airway/above vocal folds/ejected Thin Liquid via teaspoon Trial 2: Result: 2= enter airway/above vocal folds/ejected Thin Liquid via small single sip: cup: Result: 2= enter airway/above vocal folds/ejected Thin Liquid via sequential sips: cup: Result: 4= enters airway/contacts vocal folds/ejected Comment: Esophageal screen - Complete clearance. [place] Thick Liquid via small single sip: cup: Result: 1= does not enter airway Pudding via teaspoon: Result: 1= does not enter airway Comment: Esophageal screen - Complete clearance. 1/2 Cookie: Result: 1= does not enter airway Comment: Esophageal screen - Retention in lower and middle esophagus. Thin Liquid via sequential sips:straw: Result: 2= enter airway/above vocal folds/ejected Comment: Esophageal screen - Complete clearance. Oral Phase Labial Seal: Interlabial escape, no progression to anterior lip Tongue Control During Bolus Hold: Posterior escape of greater than half of bolus Bolus Preparation/Mastication: Timely and efficient chewing and mashing (Small pieces of cookie un-chewed) Bolus Transport/Lingual Motion: Delayed initiation of tongue motion Oral Residue: Residue collection on oral structures Pharyngeal Phase Initiation of Pharyngeal Swallow: Bolus head in pyriforms Soft Palate Elevation: Trace column of contrast/air between soft palate and pharyngeal wall Laryngeal Elevation: Comp. Superior move thyroid cart w/comp. apprx arytenoid cart-epig pet Anterior Hyoid Excursion: Partial anterior movement Epiglottic Movement: Complete inversion Laryngeal Vestibule Closure at Height of Swallow: Incomplete; narrow column of air/contrast in laryngeal vestibule Pharyngeal Stripping Wave: Present - diminished Pharyngoesophageal Segment Opening: Parital distension and partial duration; parital obstruction offlow Tongue Base Retraction: Narrow column of contrast between tongue base & post. pharyngeal wall Pharyngeal Residue: Collection of residue within or on pharyngeal structures Esophageal Phase Esophageal Clearance: Esophageal retention Diagnosis/Impression Diagnosis: Mild oropharyngeal dysphagia R13.12; Esophageal dysphagia R13.14 Impression: The oral phase is marked by... -Timely mastication; however, small pieces of cookie un-chewed. -Posterior loss of ~50% of thin liquids to the pyriform sinuses prior to swallowonset. -Delayed tongue motion for A-P transport. -Trace-mild oral residues. The pharyngeal phase is marked by... -Delayed swallow onset. -Trace-mild pharyngeal residues due to decreased TB retraction and pharyngeal stripping wave. -Consistent laryngeal penetration of thin liquids during the swallow, which fully ejected after theswallow. With sequential sips via cup, liquids penetrated to the patient's vocal folds, but fully ejected. No aspiration was observed; however, [employer] recommends sips 1 at a time to decrease risk for aspiration. The esophageal phase is marked by... -Small CP bar at the level of C4-C5 with small collection of barium just above CP bar, which fully cleared through the upper esophagus after the swallow. -Retention of cookie in the middle and lower esophagus, which fully cleared w/ liquid wash. Recommendations Diet: Regular Textures (Moisten dry textures) and Thin Liquids Compensatory Strategies: Small Bites (chew thoroughly), Small Sips (Sips 1 at a time), Slow Rate, Alternate bites/solids and sips/liquids (1 sip after each biteof solid food), Sitting upright and Remain sitting upright for 30 minutes after PO intake Recommend Repeat Modified Barium Swallow: No Need for Skilled Speech Therapy Services: Yes Comment: -Train the patient in use of strategies to decrease risk for aspiration and reflux aspiration. -Ongoing assessment of diet tolerance of recommended textures. -Train the patient in oropharyngeal exercise program to improve bolus control, swallow onset, and pharyngeal motility (lingual resistance, Ines, Ghislaine, effortful). Recommended Referrals: GI Consult Education Completed: 1. Described result of evaluation., 2. Pt understands evaluation & agrees with goals and treatment plan. and 7. Pt requires further education on strategies & risks. Status Active ST Patient: Active Contact Information [facility] Speech Therapy:: Cammy Mabry M.A. CCC-[employer]? Speech-Language Pathologist?? [facility] [address] [place] [address]? [email or web address]?? [phone] 06/04/24 [facility]5 DAVID Neff-[employer]> Date/Time Cammy Mabry M.A., CCC-[employer] Co-Signature Required for all Medicare patients Date/Time Co-Signature CC: ~ [facility]03-25-2025 Evaluation note* Diagnosis Onset Date Resolution Status Admit Date Fusion of lumbar spine acute [facility] 2024 7:51am Fusion of spine of cervical region acute May 27, 2024 7:51am Lumbar radiculopathy acute [facility] 2024 7:51am Lumbar scoliosis acute May 272024 7:51am Borderline diabetes acute May 29, 2024 12:07pm Preoperative examination acute May 29, 2024 12:07pm Abnormal finding present on diagnostic imaging of uterus acute Jun 2:03pm Coronary artery disease chronic M ay 2024 11:31am Edema of both lower legs chronic July 08, 2024 11:31am Essential hypertension chronic Ma y 2024 11:31am Hyperlipidemia chronic July 08, 11:31am Abnormal finding present on diagnostic imaging of uterus acute July 22, 2024 10:37am Constipation acute July 22 10:37am Pelvic adhesions acute July 10:37am Constipation acute July 29 2:20pm Anxiety and depression chronic Ma y 2024 1:09pm Chronic abdominal pain chronic Ma y 2024 1:09pm Essential hypertension chronic Ma y 2024 1:09pm Hyperlipidemia chronic July 30, 2024 1:09pm Type 2 diabetes mellitus chronic July 30, 2024 1:09pm [employer] Work Phone: 1(453) 762-599302-24-2025 Evaluation note* Diagnosis Onset Date Resolution Status Admit Date Anxiety and depression chronic Fe bruary 2024 1:07pm Difficulty swallowing chronic Feb ruary 2024 1:07pm OAB (overactive bladder) chronic April 28, 2024 1:07pm Obesity (BMI 30-39.9) chronic Feb ruary 2024 1:07pm Fusion of lumbar spine acute [facility] 2024 7:51am Fusion of spine of cervical region acute May 27, 2024 7:51am Lumbar radiculopathy acute [facility] 2024 7:51am Lumbar scoliosis acute May 272024 7:51am Borderline diabetes acute May 29, 2024 12:07pm Preoperative examination acute May 29, 2024 12:07pm Abnormal finding present on diagnostic imaging of uterus acute Jun 2:03pm Coronary artery disease chronic M ay 2024 11:31am Edema of both lower legs chronic July 08, 2024 11:31am Essential hypertension chronic Ma 2024 11:31am Hyperlipidemia chronic July 08, 11:31am Abnormal finding present on diagnostic imaging of uterus acute July 22, 2024 10:37am Constipation acute July 22 10:37am Pelvic adhesions acute July 10:37am Constipation acute July 29 2:20pm Anxiety and depression chronic Ma y 2024 1:09pm Chronic abdominal pain chronic Ma y 2024 1:09pm Essential hypertension chronic Ma y 2024 1:09pm Hyperlipidemia chronic July 30, 2024 1:09pm Type 2 diabetes mellitus chronic July 30, 2024 1:09pm [employer] Work Phone: 1(893) 367-316502-07-2025 Evaluation note* Diagnosis Onset Date Resolution Status Admit Date Fusion of lumbar spine acute Fe bruary 2024 12:50pm Fusion of spine of cervical region acute April 11 12:50pm Lumbar radiculopathy acute Febr ua2024 12:50pm Lumbar scoliosis acute April 11, 2024 12:50pm Anxiety and depression chronic Fe bruary 2024 1:07pm Difficulty swallowing chronic Feb ruary 2024 1:07pm OAB (overactive bladder) chronic April 28, 2024 1:07pm Obesity (BMI 30-39.9) chronic Feb ruary 2024 1:07pm Fusion of lumbar spine acute [facility] 2024 7:51am Fusion of spine of cervical region acute May 27, 2024 7:51am Lumbar radiculopathy acute [facility] 2024 7:51am Lumbar scoliosis acute May 272024 7:51am Borderline diabetes acute May 29, 2024 12:07pm Preoperative examination acute May 29, 2024 12:07pm Abnormal finding present on diagnostic imaging of uterus acute Jun 2:03pm Coronary artery disease chronic M ay 2024 11:31am Edema of both lower legs chronic July 08, 2024 11:31am Essential hypertension chronic Ma y 2024 11:31am Hyperlipidemia chronic July 08, 11:31am [facility] Work Phone: 1([phone]) 700-874902-07-2025 Evaluation note* Diagnosis Onset Date Resolution Status Admit Date Fusion of lumbar spine acute Fe bruary 2024 12:50pm Fusion of spine of cervical region acute April 11 12:50pm Lumbar radiculopathy acute Febr ua2024 12:50pm Lumbar scoliosis acute April 11, 2024 12:50pm Anxiety and depression chronic Fe bruary 2024 1:07pm Difficulty swallowing chronic Feb ruary 2024 1:07pm OAB (overactive bladder) chronic April 28, 2024 1:07pm Obesity (BMI 30-39.9) chronic Feb ruary 2024 1:07pm Fusion of lumbar spine acute [facility] 2024 7:51am Fusion of spine of cervical region acute May 27, 2024 7:51am Lumbar radiculopathy acute [facility] 2024 7:51am Lumbar scoliosis acute May 272024 7:51am Borderline diabetes acute May 29, 2024 12:07pm Preoperative examination acute May 29, 2024 12:07pm Abnormal finding present on diagnostic imaging of uterus acute Apr [place] 2024 2:03pm Coronary artery disease chronic M ay 2024 11:31am Edema of both lower legs chronic July 08, 2024 11:31am Essential hypertension chronic Ma y 2024 11:31am Hyperlipidemia chronic July 08 025 11:31am Abnormal finding present on diagnostic imaging of uterus acute July 22, 2024 10:37am Constipation acute July 22 10:37am Pelvic adhesions acute July 10:37am [facility] Work Phone: 1(950) 855-103702-07-2025 Evaluation note* Diagnosis Onset Date Resolution Status Admit Date Fusion of lumbar spine acute Fe bruary 2024 12:50pm Fusion of spine of cervical region acute April 11 12:50pm Lumbar radiculopathy acute Febr uary 2024 12:50pm Lumbar scoliosis acute April 11, 2024 12:50pm Anxiety and depression chronic Fe bruary 2024 1:07pm Difficulty swallowing chronic Feb ruary 2024 1:07pm OAB (overactive bladder) chronic April 28, 2024 1:07pm Obesity (BMI 30-39.9) chronic Feb ruary 2024 1:07pm Fusion of lumbar spine acute Ma rch 2024 7:51am Fusion of spine of cervical region acute May 27, 2024 7:51am Lumbar radiculopathy acute [facility] 2024 7:51am Lumbar scoliosis acute May 272024 7:51am Borderline diabetes acute May 29, 2024 12:07pm Preoperative examination acute May 29, 2024 12:07pm Abnormal finding present on diagnostic imaging of uterus acute Apr [place] 2024 2:03pm Coronary artery disease chronic M ay 2024 11:31am Edema of both lower legs chronic July 08, 2024 11:31am Essential hypertension chronic Ma y 2024 11:31am Hyperlipidemia chronic July 08 025 11:31am Abnormal finding present on diagnostic imaging of uterus acute July 22, 2024 10:37am Constipation acute July 22 10:37am Pelvic adhesions acute July 10:37am Constipation acute July 29 2:20pm [facility] Work Phone: 1([phone]) 635-491202-07-2025 Evaluation note* Diagnosis Onset Date Resolution Status Admit Date Fusion of lumbar spine acute Fe bruary 2024 12:50pm Fusion of spine of cervical region acute April 11 12:50pm Lumbar radiculopathy acute Febr uary 2024 12:50pm Lumbar scoliosis acute April 11, 2024 12:50pm Anxiety and depression chronic Fe bruary 2024 1:07pm Difficulty swallowing chronic Feb ruary 2024 1:07pm OAB (overactive bladder) chronic April 28, 2024 1:07pm Obesity (BMI 30-39.9) chronic Feb ruary 2024 1:07pm Fusion of lumbar spine acute Ma rch 2024 7:51am Fusion of spine of cervical region acute May 27, 2024 7:51am Lumbar radiculopathy acute [facility] 2024 7:51am Lumbar scoliosis acute May 272024 7:51am Borderline diabetes acute May 29, 2024 12:07pm Preoperative examination acute May 29, 2024 12:07pm Abnormal finding present on diagnostic imaging of uterus acute Jun 2:03pm Coronary artery disease chronic M ay 2024 11:31am Edema of both lower legs chronic July 08, 2024 11:31am Essential hypertension chronic Ma y 2024 11:31am Hyperlipidemia chronic July 08, 11:31am Abnormal finding present on diagnostic imaging of uterus acute July 22, 2024 10:37am Constipation acute July 22 10:37am Pelvic adhesions acute July 10:37am Constipation acute July 29 2:20pm Anxiety and depression chronic Ma y 2024 1:09pm Chronic abdominal pain chronic Ma y 2024 1:09pm Essential hypertension chronic Ma y 2024 1:09pm Hyperlipidemia chronic July 30, 2024 1:09pm Type 2 diabetes mellitus chronic July 30, 2024 1:09pm [facility] Work Phone: 1(750) 387-528812-19-2024 Evaluation note* Diagnosis Onset Date Resolution Status Admit Date Trigger finger, right chronic Dec ember 2023 1:05pm Fusion of lumbar spine acute Fe bruary 2024 12:50pm Fusion of spine of cervical region acute April 11 12:50pm Lumbar radiculopathy acute Febr ua2024 12:50pm Lumbar scoliosis acute April 11, 2024 12:50pm Anxiety and depression chronic Fe bruary 2024 1:07pm Difficulty swallowing chronic Feb ruary 2024 1:07pm OAB (overactive bladder) chronic April 28, 2024 1:07pm Obesity (BMI 30-39.9) chronic Feb ruary 2024 1:07pm [facility] Work Phone: 1(838) 299-216112-19-2024 Evaluation note* Diagnosis Onset Date Resolution Status Admit Date Trigger finger, right chronic Dec ember 2023 1:05pm Fusion of lumbar spine acute Fe bruary 2024 12:50pm Fusion of spine of cervical region acute April 11 12:50pm Lumbar radiculopathy acute Febr ua2024 12:50pm Lumbar scoliosis acute April 11, 2024 12:50pm Anxiety and depression chronic Fe bruary 2024 1:07pm Difficulty swallowing chronic Feb ruary 2024 1:07pm OAB (overactive bladder) chronic April 28, 2024 1:07pm Obesity (BMI 30-39.9) chronic Feb ruary 2024 1:07pm Fusion of lumbar spine acute Ma h 2024 7:51am Fusion of spine of cervical region acute May 27, 2024 7:51am Lumbar radiculopathy acute Black h 2024 7:51am Lumbar scoliosis acute May 272024 7:51am Borderline diabetes acute May 29, 2024 12:07pm Preoperative examination acute May 29, 2024 12:07pm Abnormal finding present on diagnostic imaging of uterus acute Apr 2024 2:03pm [facility] Work Phone: 1(398) 310-593012-29-2023 Progress note Author David Benjamin [facility] March 02, 2023 7:40am Note Date/Time March 02, 2023 7:40am [facility] Medical Records Department [address] [place] [address] Progress Note - Orthopedic 03/02/23737 MR#: [id number] Acct: [id number] Name: IRENE BERG Rep #:[id number] : 1950 73 From: David Garg PCP: Dr. Delta Sahu MD Status:A DM JASON Location: MS3 [id number] Subjective Subjective Seen and examined postop day 1. Lying in bed resting comfortably. Pain controlled. No complaints Objective Data Objective Data Vital Signs: Vital Signs Temp Pulse Resp BP Pulse Ox O2 Del Method O2 Flow Rate 98.8 F 83 16 115/55 L 93 Nasal Cannula 2 03/02/23 04:00 03/02/23 04:00 03/02/23 04:00 03/02/23 04:00 03/02/23 04:00 03/02/23 04:00 03/02/23 04:00 FiO2 98 03/01/23 20:34 Oxygen Flow Rate (L/min) 2 Oxygen Delivery Method Nasal Cannula Weight: 235 lb 14.314 oz Body Mass Index (BMI) 36.9 Intake & Output: Intake and Output for Last 24 Hours 02/28/23 03/01/23 03/02/23 23:59 23:59 23:59 Intake Total 2821.67 / 2821.67 790 / 790 Output Total 700 / 700 530 / 530 Balance 2121.67 / 2121.67 260 / 260 Lab / Micro Data 02/05/23 09:09 02/05/23 09:09 Physical Exam Const alert, oriented x3 and no apparent distress General Appearance: cooperative, comfortable and well kempt Neck full ROM General: normal visual inspection Chest inspection of chest normal and palpation of chest normal Resp normal respiratory effort and normal air movement Effort and Inspection: able to speak in complete sentences Cardio regular rate and peripheral pulses 2+ throughout GI soft to palpation, non-tender and non-distended Back/Spine Back/Spine Narrative: Dressing clean dry and intact. Drain pulled Cervical Spine: cervical ROM normal Thoracic Spine / Upper Back: normal to inspection Lumbar Spine / Lower Back: normal to inspection Extremity normal to inspection, full ROM, normal capillary refill, no clubbing, cyanosis or edema and no calf tenderness Skin no rashes or lesions noted General Skin Exam: no breakdown Neuro oriented x3, CN's II-XII intact bilaterally, moves all extremities, no focal motor deficits, no sensory deficits noted and deep tendon reflexes 2+ bilaterally Motor Exam: strength 5/5 throughout and muscle tone normal throughout Assessment & Plan Assessment/Plan (1) Lumbar stenosis: PLAN: The patient is doing very well. Her pain is controlled and she has been out of bed with physical therapy and took a few steps. Continue pain control and mobilization as tolerated. Okay to discharge home when patient is mobilizing well enough and arrangements are made. Follow-up with Dr. Lopez clinic as scheduled 03/02/23739 <Electronically signed by David Benjamin DO> Cosigner Signature (if applicable): CC: ~ Signed [facility] Work Phone: 1(420) 633-659012-29-2023 Progress note Author David Benjamin [facility] March 02, 2023 7:36am Note Date/Time March 01, 2023 8:54am [facility] Medical Records Department [address] [place] [address] Progress Note - Orthopedic 03/01/23 0852 MR#: [id number] Acct: [id number] Name: IRENE BERG Rep #:[id number] : 1950 73 From: David Garg PCP: Dr. Delta Sahu MD Status:A DM JASON Location: AR3 [id number] Subjective Subjective Seen and examined postop. Resting comfortably. Pain controlled. No complaints Objective Data Lab / Micro Data 02/05/23 09:09 02/05/23 09:09 Physical Exam Const alert, oriented x3 and no apparent distress General Appearance: cooperative, comfortable and well kempt HEENT normocephalic and head/scalp atraumatic Eyes EOMs intact bilaterally and conjunctivae normal Neck full ROM General: normal visual inspection Chest inspection of chest normal and palpation of chest normal Resp normal respiratory effort and normal air movement Effort and Inspection: able to speak in complete sentences Cardio regular rate, regular rhythm and peripheral pulses 2+ throughout GI soft to palpation, non-tender and non-distended Back/Spine Back/Spine Narrative: Dressing clean dry and intact Cervical Spine: cervical ROM normal Thoracic Spine / Upper Back: normal to inspection Lumbar Spine / Lower Back: normal to inspection Extremity normal to inspection, full ROM, normal capillary refill, no clubbing, cyanosis or edema and no calf tenderness Skin no rashes or lesions noted General Skin Exam: no breakdown Neuro oriented x3, CN's II-XII intact bilaterally, moves all extremities, no focal motor deficits, no sensory deficits noted and deep tendon reflexes 2+ bilaterally Motor Exam: strength 5/5 throughout and muscle tone normal throughout Assessment & Plan Assessment/Plan (1) Lumbar stenosis: PLAN: Okay to admit See orders Discharge planning, likely home tomorrow 03/02/23 0736 <Electronically signed by David Benjamin DO> Cosigner Signature (if applicable): CC: ~ Signed [facility] Work Phone: 1(865) 677-127312-28-2023 Progress note Author Florence Solorzano [facility] March 01, 2023 5:03pm Note Date/Time March 01, 2023 4:30pm [facility] Medical Records Department [address] [place] [address] Progress Note - Hospitalist 03/01/23 1629 MR#: [id number] Acct: [id number] Name: IRENE BERG Rep #:[id number] : 1950 73 From: Florence Solorzano MD PCP: Dr. Delta Sahu MD Status:[facility] Location: [place] [address] Reason for Visit Reason for Visit: Diagnoses Spinal stenosis, lumbar region without neurogenic claudication (03/01/23) Encounter for other preprocedural examination (03/01/23) Subjective Subjective Patient notes ongoing aching and severe pain to the lumbar region rated 10 out of 10 with no paresthesias or shooting pains down the legs but some increased tight sensation/burning to the anterior thigh bilaterally. She recently just came from PACU and medications are being obtained for her. She denies any otheracute complaints at this time. She is asking to be repositioned but otherwise no requests. Patient denies fevers, chills, nausea, emesis, abdominal pain, chest pain or dyspnea. Objective Data Objective Data Vital Signs: Vital Signs Temp Pulse Resp BP Pulse Ox O2 Del Method O2 Flow Rate 97.3 F L 72 16 139/72 H 98 Room Air 2 03/01/23 15:35 03/01/23 15:35 03/01/23 15:35 03/01/23 15:35 03/01/23 15:35 03/01/23 15:35 03/01/23 15:35 Oxygen Flow Rate (L/min) 2 Oxygen Delivery Method Room Air Weight: 235 lb 14.314 oz Body Mass Index (BMI) 36.9 Intake & Output: Intake and Output for Last 24 Hours 02/27/23 02/28/23 03/01/23 23:59 23:59 23:59 Intake Total 2049 / 2049 Output Total 250 / 250 Balance 1800 / 1800 Lab / Micro Data 02/05/23 09:09 02/05/23 09:09 Physical Exam Narrative Physical Examination: General: Awake, alert, oriented x 3 and cooperative, laying in the MS bed, appears uncomfortable, recently transition back from PACU Skin: Normal color, normal turgor, no icterus, no cyanosis except for recent lumbar dressing in place with no drainage although difficult evaluation as she is currently position on her back with side rolling. HEENT: AT/NC, EOMI, PERRLA, moderately dry MM, no carotid bruits or JVD noted; however thickened neck makes evaluation difficult. Lungs: Mildly diminished, greater bases, proper effort, no rales, ronchi or wheezing. Heart: Regular rate and rhythm; no gallop, rub audible. Abdomen: Soft, obese, some mild discomfort to bilateral lower quadrants but no rebound or guarding, distant BS, difficult to assess distention and HSM given habitus. Extremities: No cyanosis, no clubbing, BL ankle not markedly pitting edema. Neurological: Patient awake, alert, oriented as noted, cognitive function intact; pupils equally reactive to light and accommodation, cranial nerves grossly normal, moving all 4 extremities although limited given recent lumbar back pain, no focal deficits, strength severely globally decreased secondary to recent OR. Psychiatric: Affect appears fatigued, uncomfortable, no acute evidence of depressive or anxiety feelings. Assessment & Plan Assessment/Plan (1) Lumbar stenosis: PLAN: Plan The patient is a 73 y/o F w/ PMHx: Obesity, Anxiety and Depression/Mood disorder, HESHAM on CPAP, HTN, HLD, Hx VTE, Pulmonary HTN, PVD, [facility] to chronic lumbar back discomfort with lumbar stenosis for planned L4- 5 posterior lumbar interbody fusion, insertion of intervertebral biomechanical device, structural allograft spinal fusion, L4 bilateral laminectomy/foraminotomies/facetectomy/decompression bilateral nerve roots, L4-5 posterior lateral fusion, pedicle screw fixation, local allograft for spinal fusion per Dr. Benjamin. #1. Severe intractable lumbar back pain: Failed conservative therapies and treatments, admitted per Dr. Benjamin, s/p L4-5 posterior lumbar interbody fusion, insertion of intervertebral biomechanical device, structural allograft spinal fusion, L4 bilateral laminectomy/foraminotomies/facetectomy/decompression bilateral nerve roots, L4-5 posterior lateral fusion, pedicle screw fixation, local allograft for spinal fusion, post-operative pain management, bowel regimen, DVT Prophylaxis, PT/OT/CM per surgery discretion. #2. Pulmonary hypertension: Per current list not on regimen but from review of chart does follow with pulmonary medicine with most recent evaluation 02/02/23, most recent noted echocardiogram 04/29/2021 with normal LV systolic function, EF 60%, mild MVI, mild TVI, RVSP 35 mmHg, diastolic function indeterminate. #3. Hypertension: Continue home regimen including Lasix, losartan, PRN hydralazine. #4. Hyperlipidemia: We will continue patient on statin therapy. #5. Anxiety depression/mood disorder: We will continue patient home venlafaxineregimen. #6. Obesity: Weight loss and lifestyle changes encouraged. #7. SLE: Noted in chart history, per current list not on any chronic regimen, encourage continued outpatient follow-up with rheumatology. #8. History of VTE: Per current list not on any chronic anticoagulation, would be appropriate once cleared per surgery given this history to have prophylaxis initiated. #9. HESHAM with chronic supplemental oxygen bled in nightly: CPAP nightly. #10. DVT prophylaxis: SCDs, chemoprophylaxis per surgery discretion given recent OR. Charges/Coding Visit Charges Inpatient E&M: 33382 Subs Hosp L3 03/01/23 1703 <Electronically signed by Florence Solorzano MD> Cosigner Signature (if applicable): CC: ~ Signed [facility] Work Phone: 1(424) 220-702212-28-2023 Procedure [facility] 01-23-2023 Procedure [facility]12-08-2022 Note Date of Service 02/09/2022 Subjective Overnight [...] 14 Creatinine Lvl (s): 0.69 EKG EKG [AOH] - Completed -- 02/08/22 14:09:00 EST, 02/08/22 [...] by AISHWARYA CONTRERAS on 02/09/2022 06:13 PM [facility]12-08-2022 Hospital Discharge instructions Patient Education 02/09/2022 11:51:10 Anterior Cervical [...] and water are not available, use hand paper baler. ?Change your dressing as told by your [...] smell. Managing pain, stiffness, and swelling Take hsfz-nlk-rjvrsws and prescription medicines only as told by [...] to keep your urine pale yellow. ?Take tlmf-oue-ykxgmxl or prescription medicines. ?Eat foods that are high in fiber, such as beans, whole grains, and fresh fruits and vegetables. ?Limit foods that are high in fat and processed sugars, such as fried and sweet foods. Do not use any products that contain nicotine or tobacco, such as cigarettes, e- cigarettes, and chewing tobacco. These can delay healing. [...] 03/17/2016 Document Revised: 11/14/2018 Document Reviewed: 11/14/2018 [employer] Patient Education 2020 [employer]. Follow Up Care 01/11/2022 10:45:19 With:DAVID BENJAMIN DO, Orthopedic Address: [address] [place] [address], [address] [facility] [place] [address]- [phone] When: Unknown [facility] 12-08-2022 Note Discharge Instructions Thank you for allowing [facility] to assist you with your healthcare needs. The following is importantdischarge information regarding your hospital visit. Your Care Team David Benjamin, DO Your Diagnosis Chest pain HTN (hypertension) Sleep apnea Cervical spondylosis What to do next Instructions From Your Doctor Activity: Do not drive, smoke, operate machinery, return to work, or engage in activities that require you ladan alert when taking narcotics, pain relievers or [...] not take any medications, herbal, prescription, or ooxy-ylc-qkraugj unless prescribed for the next 12 weeks Remember to take your pain medication and/or muscle relaxants as ordered to keep your pain under control No NSAIDs for 3 months, will interfere with the fusion. Swelling around the nerves can cause continued numbness and tingling for days or weeks after surgery Follow Up Appointments Follow Up with DAVID BENJAMIN DO, Orthopedic When Where: [address] [place] [address], [address] [facility] [place] [address]- [phone] The Following Activity and Diet Have Been [...] and or supplements as they may interact withyour home medications. What How Much When Why Instructions Last Dose Changed acetaminophen-hydrocodone ([place] 325- 5 mg oral tablet) 1 tab(s) by mouth Every 6 hours as needed for for pain Cervical spondylosis Duration: 7 Days Pickup at [facility] Unchanged amLODIPine (amLODIPine 5 mg oral [...] Two (2) times a day Pharmacy Information [facility]: [address] [place], [place] [id number] [phone] Please take this list to your next [...] and water are not available, use hand paper baler. ? Change your dressing as told by [...] smell. Managing pain, stiffness, and swelling Take odxn-gdr-xpbbfxp and prescription medicines only as told by [...] keep your urine pale yellow. ? Take lvfb-zit-yoqpbzy or prescription medicines. ? Eat foods that are high in fiber, such as beans, whole grains, and fresh fruits and vegetables. ? Limit foods that are high in fat and processed sugars, such as fried and sweet foods. Do not use any products that contain nicotine or tobacco, such as cigarettes, e- cigarettes, and chewing tobacco. These can delay healing. [...] 03/17/2016 Document Revised: 11/14/2018 Document Reviewed: 11/14/2018 [employer] Patient Education 2020 [employer]. Additional Information VACCINATE! IT SAVES LIVES! Members of the community who have not yet received the COVID-19 vaccine and would like to receive it can visit one of [facility] vaccine clinics. There are many vaccine clinic locations within the [facility]. For locations and available times, please visit [email or web address] It is important to note that some COVID mobile vaccine clinics are held outdoors and may be canceled in rainy or stormy conditions. To learn more about pediatric vaccinations (ages 5-11), we invite you to visit the [facility] webpage. [email or web address] learn more about the COVID-19 vaccine, we invite you to visit the [facility] website for a list of frequently asked questions. [email or web address] [facility] Patient Portal Access Instructions: Stay connected with your healthcare team and access your personal medical information anytime with the [facility] Patient Portal.If you would like a full copy of your medical records, please contact the [facility] Medical Records Department, Sunday through Sunday between 8a.m. and 4:30p.m. Please follow the directions below to access the portal: 1.Access the email account you provided upon registration to the [facility].2.Look for an invitation email from [facility].3.Open the email and access the invitation link: Accept Invitation to [employer]4.Fill in the required palacios to create your account. Sign into [email or web address] with your username and password that you [...] you will allow to register on the [facility] Patient Portal for access to your information. You can also access the [employer] Patient Portal on the Cubie. Simply click on Health Records under [place] and then click on the [employer] logo. HOW TO SAFELY DISPOSE OF PRESCRIPTION MEDICATIONS Please use one of the following methods to safely dispose of your unused medications. 1.Use a drug disposal kit: the drug disposal pouch allows you to safely discard your old and unuseddrugs. Ask your nurse to give you one when you are discharged.2.Visit a local take-back location: Many local pharmacies and police departments have programs that collect old and unwanted prescriptiondrugs. Call your local pharmacy or go to http://[employer]IQ Engines/5S7Mn9z to find one close to you.3.Make use of household items: Use cat litter or old coffee grounds to dispose medications if other options arenot available. Mix your drugs with these household products, seal them in an airtight container andthrow it into the garbage. Call [facility]: [phone] to be sure your drugs can be [...] been reviewed and explained to me and I,JOHNRADHA IRENE Breannad my current condition and have read and understand these discharge instructions. I have received a written copy of the plan/instructions. If I have questions, I am aware that I should contact my doctor. 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 [facility]12-07-2022 Note ORIGINAL Images acquired, not reported on this accession number.[facility]12-07-2022 Anesthesiology Consult note Patient: IRENE BERG Age: 72 years Sex: Female : 1950 [...] or recorded. Procedure history: Arthroscopy of knee (320973105). Comments: 01/25/2022 13:50 Tita Enriquez RN Right Tonsillectomy ([id number]). Open wound of left lower leg due to animal bite ([id number]). History of partial thyroidectomy (9504547694). section ([id number]). Comments: 01/25/2022 13:50 Tita Enriquez RN x2 ORIF - Open reduction of fracture of ankle with internal fixation ([id number]). Comments: 01/25/2022 13:50 Tita Enriquez RN Right Social History Social & Psychosocial Habits Alcohol 01/25/2022 Use: Never Substance Abuse 01/25/2022 Use: Never Tobacco 01/25/2022 Tobacco Use: Never (less than 100 in l Home/Environment 01/25/2022 Domestic Concerns None Living situation: Home/Independent Primary Oxygraph Operator: Self Current Home Treatments CPAP Special Services and Community Resources None Spouse Name Delmy Marital Status of Patient if Patient Independent [...] 1 SN - CAt - Role Performed Construction Director 1 SN - CAt - Role Performed Software Applications Designer 1 SN - CAt - Role Performed MULTINEEDLE SHIRRER SN - CAt - Role Performed Turf Manager SN - CAt - Role Performed Custom Harvester SN - CAt - Role Performed Turf Manager 02/08/2022 8:46 EST Temperature Temporal Artery 36.5 [...] Safety Brochure Information Reviewed Unable to complete [facility] Video Viewed No Teaching Evaluation Verbalizes/Nonverbally indicates understanding Admission Note-Nursing Same Day Patient History (Modified) 02/08/2022 8:35 EST citric acid-sodium citrate Not Done: Not Appropriate at this Time (Not Done) 02/08/2022 8:33 EST SN - Preop - CTm Pt in SDS Room 02/08/2022 8:33 02/08/2022 7:23 EST Patient Instructions Documentation Patient Instructions Documentation . Assessment and Plan [place] [employer] Anesthesiologists (ASA) physical status classification: Class III. Anesthetic Preoperative Plan Anesthetic technique: General. Maintenance airway: Oral endotracheal tube. Postoperative pain management: Per surgeon. Risks discussed: nausea, vomiting, sore throat, hypotension, allergic reaction, serious complications. Informed consent: signed by patient. Digitally Signed by LONA OSBORNE on 02/08/2022 08:50 AM [facility]12-07-2022 Note Date of Service 02/08/2022 Chief Complaint Status post C5-6, C6-7 ACDF Subjective The patient was seen and examined postoperatively in the PACU. She is resting comfortably. Her painis controlled. She denies any other complaints including [...] planning likely home tomorrow Digitally Signed by DAVID BENJAMIN DO on 02/08/2022 12:04 PM [facility] App[facility]ments [facility] Evaluation note* Diagnosis Onset Date Resolution Status Animal bite acute Lupus acute MRSA (methicillin resistant Staphylococcus aureus) infection acute Ulcer of left lower extremity with fat layer exposed acute History of excision of lesion chronic Edema resolved Animal bite acute Edema of both lower legs acu te Lupus acute Thyroid disease acute Ulcer of left lower extremity with fat layer exposed acute History of excision of lesion chronic Hyperlipidemia chronic Essential hypertension acute Palpitations acute Hyperlipidemia chronic Pulmonary hypertension chron ic SOB (shortness of breath) ch ronic Animal bite acute Edema of both lower legs acu te Essential hypertension acute Lupus acute Ulcer of left lower extremity with fat layer exposed acute Animal bite acute Edema of both lower legs acu te Leg pain, left acute Lupus acute Ulcer of left lower extremity with fat layer exposed acute History of excision of lesion chronic Animal bite acute Edema of both lower legs acu te Lupus acute Ulcer of left lower extremity with fat layer exposed acute [facility] Work Phone: Evaluation note* Diagnosis Onset Date Resolution Status Animal bite acute Edema of both lower legs acu te Lupus acute Thyroid disease acute Ulcer of left lower extremity with fat layer exposed acute History of excision of lesion chronic Hyperlipidemia chronic Essential hypertension acute Palpitations acute Hyperlipidemia chronic Pulmonary hypertension chron ic SOB (shortness of breath) ch ronic Animal bite acute Edema of both lower legs acu te Essential hypertension acute Lupus acute Ulcer of left lower extremity with fat layer exposed acute Animal bite acute Edema of both lower legs acu te Leg pain, left acute Lupus acute Ulcer of left lower extremity with fat layer exposed acute History of excision of lesion chronic Animal bite acute Edema of both lower legs acu te Lupus acute Ulcer of left lower extremity with fat layer exposed acute [facility] Work Phone: Evaluation note* Diagnosis Onset Date Resolution Status Essential hypertension acute Palpitations acute Hyperlipidemia chronic Pulmonary hypertension chron ic SOB (shortness of breath) ch ronic Animal bite acute Edema of both lower legs acu te Essential hypertension acute Lupus acute Ulcer of left lower extremity with fat layer exposed acute Animal bite acute Edema of both lower legs acu te Leg pain, left acute Lupus acute Ulcer of left lower extremity with fat layer exposed acute History of excision of lesion chronic Animal bite acute Edema of both lower legs acu te Lupus acute Ulcer of left lower extremity with fat layer exposed acute Edema of left upper arm acut e Essential hypertension acute Palpitations acute Hyperlipidemia chronic Pulmonary hypertension chron ic SOB (shortness of breath) ch ronic Animal bite acute Edema of both lower legs acu te Lupus acute Ulcer of left lower extremity with fat layer exposed acute History of excision of lesion chronic [facility] Work Phone: Evaluation note* Diagnosis Onset Date Resolution Status Animal bite acute Edema of both lower legs acu te Essential hypertension acute Lupus acute Ulcer of left lower extremity with fat layer exposed acute Animal bite acute Edema of both lower legs acu te Leg pain, left acute Lupus acute Ulcer of left lower extremity with fat layer exposed acute History of excision of lesion chronic Animal bite acute Edema of both lower legs acu te Lupus acute Ulcer of left lower extremity with fat layer exposed acute Edema of left upper arm acut e Essential hypertension acute Palpitations acute Hyperlipidemia chronic Pulmonary hypertension chron ic SOB (shortness of breath) ch ronic Animal bite acute Edema of both lower legs acu te Lupus acute Ulcer of left lower extremity with fat layer exposed acute History of excision of lesion chronic [facility] Work Phone: Evaluation note* Diagnosis Onset Date Resolution Status Animal bite acute Edema of both lower legs acu te Leg pain, left acute Lupus acute Ulcer of left lower extremity with fat layer exposed acute History of excision of lesion chronic Animal bite acute Edema of both lower legs acu te Lupus acute Ulcer of left lower extremity with fat layer exposed acute Edema of left upper arm acut e Essential hypertension acute Palpitations acute Hyperlipidemia chronic Pulmonary hypertension chron ic SOB (shortness of breath) ch ronic Animal bite acute Edema of both lower legs acu te Lupus acute Ulcer of left lower extremity with fat layer exposed acute History of excision of lesion chronic Animal bite acute Edema of both lower legs acu te Lupus acute Ulcer of left lower extremity with fat layer exposed acute History of excision of lesion chronic [facility] Work Phone: Evaluation note* Diagnosis Onset Date Resolution Status Animal bite acute Edema of both lower legs acu te Lupus acute Ulcer of left lower extremity with fat layer exposed acute History of excision of lesion chronic Animal bite acute Edema of both lower legs acu te Lupus acute Ulcer of left lower extremity with fat layer exposed acute History of excision of lesion chronic Animal bite acute Edema of both lower legs acu te Lupus acute Ulcer of left lower extremity with fat layer exposed acute History of excision of lesion chronic [facility] Work Phone: Evaluation note* Diagnosis Onset Date Resolution Status Animal bite acute Edema of both lower legs acu te Lupus acute Ulcer of left lower extremity with fat layer exposed acute History of excision of lesion chronic Animal bite acute Edema of both lower legs acu te Lupus acute Ulcer of left lower extremity with fat layer exposed acute History of excision of lesion chronic [facility] Work Phone: Evaluation note* Diagnosis Onset Date Resolution Status Animal bite acute Edema of both lower legs acu te Lupus acute Ulcer of left lower extremity with fat layer exposed acute History of excision of lesion chronic Thyroid nodule noneactive [facility] Work Phone: Evaluation note* Diagnosis Onset Date Resolution Status Thyroid nodule noneactive [facility] Work Phone: Evaluation noteNo assessment information available [facility] Work Phone: Evaluation note* Diagnosis Onset Date Resolution Status Chronic abdominal pain chron ic Essential hypertension chron ic Urinary incontinence chronic Venous insufficiency of both lower extremities chronic [facility] Work Phone: Evaluation note* Diagnosis Onset Date Resolution Status Chronic abdominal pain chron ic Essential hypertension chron ic Urinary incontinence chronic Venous insufficiency of both lower extremities chronic Anxiety and depression chron ic Essential hypertension chron ic Palpitations acute Essential hypertension chron ic Hyperlipidemia chronic Pulmonary hypertension chron ic Flu vaccine need acute Preoperative evaluation to r ule out surgical contraindication acute Anxiety and depression chron ic Essential hypertension chron ic [facility] Work Phone: Evaluation note* Diagnosis Onset Date Resolution Status Anxiety and depression chron ic Essential hypertension chron ic Palpitations acute Essential hypertension chron ic Hyperlipidemia chronic Pulmonary hypertension chron ic Flu vaccine need acute Preoperative evaluation to r ule out surgical contraindication acute Anxiety and depression chron ic Essential hypertension chron ic HESHAM (obstructive sleep apnea) chronic SOB (shortness of breath) [facility] Work Phone: Evaluation note* Diagnosis Onset Date Resolution Status Palpitations acute Essential hypertension chron ic Hyperlipidemia chronic Pulmonary hypertension chron ic Flu vaccine need acute Preoperative evaluation to r ule out surgical contraindication acute Anxiety and depression chron ic Essential hypertension chron ic HESHAM (obstructive sleep apnea) [facility] Work Phone: Evaluation note* Diagnosis Onset Date Resolution Status HESHAM (obstructive sleep apnea) chronic SOB (shortness of breath) ch ronic Lumbar stenosis acute Lumbar stenosis acute Essential hypertension chron ic Hyperlipidemia chronic Urinary incontinence chronic Umbilical discharge acute Anxiety and depression chron ic Chronic abdominal pain chron ic OAB (overactive bladder) [facility] Work Phone: Evaluation note* Diagnosis Onset Date Resolution Status Essential hypertension chron ic Hyperlipidemia chronic Umbilical discharge acute Anxiety and depression chron ic Chronic abdominal pain chron ic OAB (overactive bladder) chr onic Umbilical discharge acute Chronic abdominal pain chron ic [facility] Work Phone: Evaluation note* Diagnosis Onset Date Resolution Status Essential hypertension chron ic Hyperlipidemia chronic Umbilical discharge acute Anxiety and depression chron ic Chronic abdominal pain chron ic OAB (overactive bladder) chr onic Umbilical discharge acute Chronic abdominal pain chron ic Coronary artery disease 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 Dyslipidemia chronic Essential hypertension chron ic Obesity (BMI 30-39.9) chroni c [facility] Work Phone: Hospital course Narrative No data available for this section [facility] Hospital Discharge instructions No data available for this section [facility] Hospital Discharge instructionsAmbulatory Orders* 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 IT PROJECT Location: None Selected [facility] Work Phone: Hospital Discharge instructionsAmbulatory Orders* Nutrition Referral Location: None Selected [facility] Work Phone: Reason for referral (narrative)No reason for referral information availableWSum[facility] Work [facility]: Summary Purpose Family History No Family History Records Found Relationship Condition Age at Onset Recorded Date/T ayde Not Specified History of blood clots Unknown Malignant neoplasm of skin Unknown Osteoporosis Unknown Arthritis Unknown father Cardiac disease Unknown Hypertension Unknown Hyperlipidemia Unknown Malignant melanoma Unknown mother Diabetes mellitus Unknown Malignant neoplasm of breast Unknown Cardiac disease Unknown sister Cerebrovascular accident (CVA) Unknown Relationship Condition Age at Onset Recorded Date/T ayde Not Specified History of blood clots Unknown Malignant neoplasm of skin Unknown Osteoporosis Unknown Arthritis Unknown father Cardiac disease Unknown Hypertension Unknown Hyperlipidemia Unknown Malignant melanoma Unknown mother Diabetes mellitus Unknown Malignant neoplasm of breast Unknown Cardiac disease Unknown sister Cerebrovascular accident (CVA) Unknown Diabetes mellitus Unknown Relationship Condition Age at Onset Recorded Date/T ayde Not Specified Malignant neoplasm of skin Unknown Osteoporosis Unknown High blood cholesterol Unknown Arthritis Unknown Parkinson's disease Unknown father Cardiac disease Unknown Hypertension Unknown Hyperlipidemia Unknown Malignant melanoma Unknown Myocardial infarction Unknown mother Diabetes mellitus Unknown Malignant neoplasm of breast Unknown Cardiac disease Unknown History of blood clots Unknown sister Cerebrovascular accident (CVA) Unknown Diabetes mellitus Unknown Relationship Condition Age at Onset Recorded Date/T ayde Not Specified Osteoporosis Unknown Parkinson's disease Unknown father Cardiac disease Unknown Hypertension Unknown Hyperlipidemia Unknown Malignant melanoma Unknown Myocardial infarction Unknown High blood cholesterol Unknown Malignant neoplasm of skin Unknown mother Diabetes mellitus Unknown Malignant neoplasm of breast Unknown Cardiac disease Unknown History of blood clots Unknown Arthritis Unknown sister Cerebrovascular accident (CVA) Unknown Diabetes mellitus Unknown Gastric ulcer Unknown Autoimmune disease Unknown Advance Directives No Advanced Directives Records Found Advance Directive Response Recorded Date/ Time Advance Directives No July 27 12:53pm Living Will No November 17, 2020 4:45pm 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 No November 4:45pm Advance Directive Response Recorded Date/ Time Advance Directives No July 27 11:53am Living Will No November 17, 2020 3:45pm 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 No November 3:45pm Advance Directive Response Recorded Date/ Time Advance Directives No July 27 11:53am Living Will No March 01, 2 023 4:39pm 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 No March 01, 2023 4:39pm Advance Directive Response Recorded Date/ Time Advance Directives No July 27 12:53pm Living Will No March 01, 2 023 5:39pm 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 No March 01, 2023 5:39pm Advance Directive Response Recorded Date/ Time Advance Directives No July 27 12:53pm Advance Directive Response Recorded Date/ Time Do you have a Healthcare 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? No July 02, 2024 12:12pm Advance Directives No July 27 12:53pm Advance Directive Response Recorded Date/ Time Living Will No March 01, 2 023 5:39pm Do you have a Healthcare 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? No March 01, 2023 5:39pm Do you have a Healthcare 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? No July 02, 2024 12:12pm Advance Directives No July 27 12:53pm Advance Directive Response Recorded Date/ Time Living Will No March 01, 2 023 5:39pm Do you have a Healthcare 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? No March 01, 2023 5:39pm Advance Directives No July 27 12:53pm Chief Complaint and Reason for Visit Chief Complaint LEG INFECTION LEG INFECTION LEG INFECTION LEG INFECTION CHILLS LEG INFECTION LEG INFECTION req. sooner appt LEG INFECTION LEG INFECTION DYSPNEA/SOB LEG INFECTION LEG INFECTION INT LABS LEG INFECTION LEG INFECTION LEG INFECTION LEG INFECTION LEG INFECTION LEG INFECTION LEG INFECTION LEG INFECTION LEG INFECTION Reason for Visit Animal bite Lupus MRSA (methicillin resistant Staphylococcus aureus) infection Ulcer of left lower extremity with fat layer exposed History of excision of lesion Edema Animal bite Edema of both lower legs Lupus Thyroid disease Ulcer of left lower extremity with fat layer exposed History of excision of lesion Hyperlipidemia Essential hypertension Palpitations Hyperlipidemia Pulmonary hypertension SOB (shortness of breath) Animal bite Edema of both lower legs Essential hypertension Lupus Ulcer of left lower extremity with fat layer exposed Animal bite Edema of both lower legs Leg pain, left Lupus Ulcer of left lower extremity with fat layer exposed History of excision of lesion Animal bite Edema of both lower legs Lupus Ulcer of left lower extremity with fat layer exposed Chief Complaint LEG INFECTION LEG INFECTION CHILLS LEG INFECTION LEG INFECTION req. sooner appt LEG INFECTION LEG INFECTION DYSPNEA/SOB LEG INFECTION LEG INFECTION INT LABS LEG INFECTION LEG INFECTION LEG INFECTION LEG INFECTION LEG INFECTION LEG INFECTION LEG INFECTION LEG INFECTION LEG INFECTION LEG INFECTION Reason for Visit Animal bite Edema of both lower legs Lupus Thyroid disease Ulcer of left lower extremity with fat layer exposed History of excision of lesion Hyperlipidemia Essential hypertension Palpitations Hyperlipidemia Pulmonary hypertension SOB (shortness of breath) Animal bite Edema of both lower legs Essential hypertension Lupus Ulcer of left lower extremity with fat layer exposed Animal bite Edema of both lower legs Leg pain, left Lupus Ulcer of left lower extremity with fat layer exposed History of excision of lesion Animal bite Edema of both lower legs Lupus Ulcer of left lower extremity with fat layer exposed Chief Complaint LEG INFECTION req. sooner appt LEG INFECTION LEG INFECTION DYSPNEA/SOB LEG INFECTION LEG INFECTION INT LABS LEG INFECTION LEG INFECTION LEG INFECTION LEG INFECTION LEG INFECTION LEG INFECTION LEG INFECTION LEG INFECTION LEG INFECTION LEG INFECTION LEG INFECTION LEG INFECTION 3 m fu LEG INFECTION LEG INFECTION LEG INFECTION Reason for Visit Essential hypertensi on Palpitations Hyperlipidemia Pulmonary hypertension SOB (shortness of breath) Animal bite Edema of both lower legs Essential hypertension Lupus Ulcer of left lower extremity with fat layer exposed Animal bite Edema of both lower legs Leg pain, left Lupus Ulcer of left lower extremity with fat layer exposed History of excision of lesion Animal bite Edema of both lower legs Lupus Ulcer of left lower extremity with fat layer exposed Edema of left upper arm Essential hypertension Palpitations Hyperlipidemia Pulmonary hypertension SOB (shortness of breath) Animal bite Edema of both lower legs Lupus Ulcer of left lower extremity with fat layer exposed History of excision of lesion Chief Complaint LEG INFECTION LEG INFECTION DYSPNEA/SOB LEG INFECTION LEG INFECTION INT LABS LEG INFECTION LEG INFECTION LEG INFECTION LEG INFECTION LEG INFECTION LEG INFECTION LEG INFECTION LEG INFECTION LEG INFECTION LEG INFECTION LEG INFECTION LEG INFECTION 3 m fu LEG INFECTION LEG INFECTION LEG INFECTION LEG INFECTION LEG INFECTION SCREENING Reason for Visit Animal bite Edema of both lower legs Essential hypertension Lupus Ulcer of left lower extremity with fat layer exposed Animal bite Edema of both lower legs Leg pain, left Lupus Ulcer of left lower extremity with fat layer exposed History of excision of lesion Animal bite Edema of both lower legs Lupus Ulcer of left lower extremity with fat layer exposed Edema of left upper arm Essential hypertension Palpitations Hyperlipidemia Pulmonary hypertension SOB (shortness of breath) Animal bite Edema of both lower legs Lupus Ulcer of left lower extremity with fat layer exposed History of excision of lesion Chief Complaint INT LABS LEG INFECTION LEG INFECTION LEG INFECTION LEG INFECTION LEG INFECTION LEG INFECTION LEG INFECTION LEG INFECTION LEG INFECTION LEG INFECTION LEG INFECTION LEG INFECTION 3 m fu LEG INFECTION LEG INFECTION LEG INFECTION LEG INFECTION SCREENING LEG INFECTION LEG INFECTION LEG INFECTION LEG INFECTION Reason for Visit Animal bite Edema of both lower legs Leg pain, left Lupus Ulcer of left lower extremity with fat layer exposed History of excision of lesion Animal bite Edema of both lower legs Lupus Ulcer of left lower extremity with fat layer exposed Edema of left upper arm Essential hypertension Palpitations Hyperlipidemia Pulmonary hypertension SOB (shortness of breath) Animal bite Edema of both lower legs Lupus Ulcer of left lower extremity with fat layer exposed History of excision of lesion Animal bite Edema of both lower legs Lupus Ulcer of left lower extremity with fat layer exposed History of excision of lesion Chief Complaint LEG INFECTION LEG INFECTION LEG INFECTION LEG INFECTION LEG INFECTION LEG INFECTION LEG INFECTION LEG INFECTION LEG INFECTION LEG INFECTION LEG INFECTION 3 m fu LEG INFECTION LEG INFECTION LEG INFECTION LEG INFECTION SCREENING LEG INFECTION LEG INFECTION LEG INFECTION LEG INFECTION LEG INFECTION Reason for Visit Animal bite Edema of both lower legs Leg pain, left Lupus Ulcer of left lower extremity with fat layer exposed History of excision of lesion Animal bite Edema of both lower legs Lupus Ulcer of left lower extremity with fat layer exposed Edema of left upper arm Essential hypertension Palpitations Hyperlipidemia Pulmonary hypertension SOB (shortness of breath) Animal bite Edema of both lower legs Lupus Ulcer of left lower extremity with fat layer exposed History of excision of lesion Animal bite Edema of both lower legs Lupus Ulcer of left lower extremity with fat layer exposed History of excision of lesion Chief Complaint LEG INFECTION LEG INFECTION SCREENING LEG INFECTION LEG INFECTION LEG INFECTION LEG INFECTION LEG INFECTION LEG INFECTION Reason for Visit Animal bite Edema of both lower legs Lupus Ulcer of left lower extremity with fat layer exposed History of excision of lesion Animal bite Edema of both lower legs Lupus Ulcer of left lower extremity with fat layer exposed History of excision of lesion Animal bite Edema of both lower legs Lupus Ulcer of left lower extremity with fat layer exposed History of excision of lesion Chief Complaint LEG INFECTION LEG INFECTION LEG INFECTION LEG INFECTION THYROID NODULE Reason for Visit Animal bite Edema of both lower legs Lupus Ulcer of left lower extremity with fat layer exposed History of excision of lesion Animal bite Edema of both lower legs Lupus Ulcer of left lower extremity with fat layer exposed History of excision of lesion Chief Complaint LEG INFECTION LEG INFECTION THYROID NODULE Thyroid nodule MULTIPLE THYROID NODULES Reason for Visit Animal bite Edema of both lower legs Lupus Ulcer of left lower extremity with fat layer exposed History of excision of lesion Thyroid nodule Chief Complaint THYROID NODULE Thyroid nodule MULTIPLE THYROID NODULES LOCALIZED EDEMA Reason for Visit Thyroid nodule Chief Complaint THYROID NODULE Thyroid nodule MULTIPLE THYROID NODULES LOCALIZED EDEMA LEFT LOWER PAIN Reason for Visit Thyroid nodule Chief Complaint [employer]GER [employer] - PPW S ENT Reason for Visit Chronic abdominal pa in Essential hypertension Urinary incontinence Venous insufficiency of both lower extremities Chief Complaint [employer]GER 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 Chronic Rt flank pain 7 WK FU 1 Y FU 6 wk FU Reason for Visit Chronic abdominal pa in Essential hypertension Urinary incontinence Venous insufficiency of both lower extremities Anxiety and depression Essential hypertension Palpitations Essential hypertension Hyperlipidemia Pulmonary hypertension Flu vaccine need Preoperative evaluation to rule out surgical contraindication Anxiety and depression Essential hypertension Chief Complaint Chronic Rt flank dianne n 7 WK FU 1 Y FU 6 wk FU BP check Sleep apnea SOB Shortness of breath Reason for Visit Anxiety and depressi on Essential hypertension Palpitations Essential hypertension Hyperlipidemia Pulmonary hypertension Flu vaccine need Preoperative evaluation to rule out surgical contraindication Anxiety and depression Essential hypertension HESHAM (obstructive sleep apnea) SOB (shortness of breath) Chief Complaint 1 Y FU 6 wk FU BP check Sleep apnea SOB Shortness of breath Wheezing Wheezing PREOP LUMBAR STENOSIS LUMBAR 4 - LUMBAR 5 POSTERIOR LUMBA Reason for Visit Palpitations Essential hypertension Hyperlipidemia Pulmonary hypertension Flu vaccine need Preoperative evaluation to rule out surgical contraindication Anxiety and depression Essential hypertension HESHAM (obstructive sleep apnea) SOB (shortness of breath) Lumbar stenosis Chief Complaint BP check Sleep apnea SOB Shortness of breath Wheezing Wheezing PREOP LUMBAR STENOSIS LUMBAR 4 - LUMBAR 5 POSTERIOR LUMBA 3 M FU persistent pain in rt side Reason for Visit HESHAM (obstructive sle ep apnea) SOB (shortness of breath) Lumbar stenosis Lumbar stenosis Essential hypertension Hyperlipidemia Urinary incontinence Umbilical discharge Anxiety and depression Chronic abdominal pain OAB (overactive bladder) Chief Complaint PREOP LUMBAR STENOSIS LUMBAR 4 - LUMBAR 5 POSTERIOR LUMBA 3 M FU persistent pain in rt side Abdominal Pain Obstructive sleep apnea (adult) (pediatric) Reason for Visit Essential hypertensi on Hyperlipidemia Umbilical discharge Anxiety and depression Chronic abdominal pain OAB (overactive bladder) Umbilical discharge Chronic abdominal pain Chief Complaint LUMBAR STENOSIS LUMBAR 4 - LUMBAR 5 POSTERIOR LUMBA 3 M FU persistent pain in rt side Abdominal Pain Obstructive sleep apnea (adult) (pediatric) 6-9 M FU HESHAM,CPAP Reason for Visit Essential hypertensi on Hyperlipidemia Umbilical discharge Anxiety and depression Chronic abdominal pain OAB (overactive bladder) Umbilical discharge Chronic abdominal pain Coronary artery disease Dyslipidemia Essential hypertension Obesity (BMI 30-39.9) Chief Complaint Admit Date TRIGGER FINGER February 21, 2024 1:05pm LUMBAR SPINE April 11, 2024 1 2:50pm Room 2 April 11, 2024 1 :14pm SCREENING April 17, 2024 10:29am FOLLOW UP April 28, 2024 1:07pm Pain May 13, 2024 8:1 2am Reason for Visit Admit Date Trigger finger, right February 20 1:05pm Fusion of lumbar spine April 11 12:50pm Fusion of spine of cervical region 2024 12:50pm Lumbar radiculopathy April 11, 2024 12:50pm Lumbar scoliosis April 11, 2024 1 2:50pm Anxiety and depression April 28 1:07pm Difficulty swallowing April 28 1:07pm OAB (overactive bladder) April 28, 2024 1:07pm Obesity (BMI 30-39.9) April 28 1:07pm Chief Complaint Admit Date TRIGGER FINGER February 21, 2024 1:05pm LUMBAR SPINE April 11, 2024 1 2:50pm Room 2 April 11, 2024 1 :14pm SCREENING April 17, 2024 10:29am FOLLOW UP April 28, 2024 1:07pm Pain May 13, 2024 8:1 2am LUMBAR SPINE May 27, 2024 7:5 1am SURGICAL CLEARANCE - KEEP 1 HR May 12:07pm DYSPHAGIA June 03, 2024 12:5 4pm WANTS A REFERRAL FOR OBGYN June 06 2:03pm Reason for Visit Admit Date Trigger finger, right February 20 1:05pm Fusion of lumbar spine April 11 12:50pm Fusion of spine of cervical region 2024 12:50pm Lumbar radiculopathy April 11, 2024 12:50pm Lumbar scoliosis April 11, 2024 1 2:50pm Anxiety and depression April 28 1:07pm Difficulty swallowing April 28 1:07pm OAB (overactive bladder) April 28, 2024 1:07pm Obesity (BMI 30-39.9) April 28 1:07pm Fusion of lumbar spine May 27, 2024 7:51am Fusion of spine of cervical region May 27, 2024 7:51am Lumbar radiculopathy May 27, 2024 7: 51am Lumbar scoliosis May 27, 2024 7:5 1am Borderline diabetes May 29, 2024 12: 07pm Preoperative examination May 29 12:07pm Abnormal finding present on diagnostic i maging of uterus June 06, 2024 2:03pm Chief Complaint Admit Date TRIGGER FINGER February 21, 2024 1:05pm LUMBAR SPINE April 11, 2024 1 2:50pm Room 2 April 11, 2024 1 :14pm SCREENING April 17, 2024 10:29am FOLLOW UP April 28, 2024 1:07pm Pain May 13, 2024 8:1 2am LUMBAR SPINE May 27, 2024 7:5 1am SURGICAL CLEARANCE - KEEP 1 HR May 12:07pm DYSPHAGIA June 03, 2024 12:5 4pm WANTS A REFERRAL FOR OBGYN June 06 2:03pm ABNORMAL UTERINE FINDING June 16 3:29pm Chief Complaint Admit Date LUMBAR SPINE April 11, 2024 1 2:50pm Room 2 April 11, 2024 1 :14pm SCREENING April 17, 2024 10:29am FOLLOW UP April 28, 2024 1:07pm Pain May 13, 2024 8:1 2am LUMBAR SPINE May 27, 2024 7:5 1am SURGICAL CLEARANCE - KEEP 1 HR May 12:07pm DYSPHAGIA June 03, 2024 12:5 4pm WANTS A REFERRAL FOR OBGYN June 06 2:03pm ABNORMAL UTERINE FINDING June 16 3:29pm CONSTIPATION July 02, 2024 11: 25am CONSTIPATION July 02, 2024 4:0 3pm 6 M FU July 08, 2024 11:31a m LT KNEE REPLACEMENT, SURGERY 06/24, RX HE RE July 18, 2024 2:30pm FIBROIDS (BIM) July 22, 2024 10:37 am Reason for Visit Admit Date Fusion of lumbar spine April 11 12:50pm Fusion of spine of cervical region Febru jennie 2024 12:50pm Lumbar radiculopathy April 11, 2024 12:50pm Lumbar scoliosis April 11, 2024 1 2:50pm Anxiety and depression April 28 1:07pm Difficulty swallowing April 28 1:07pm OAB (overactive bladder) April 28, 2024 1:07pm Obesity (BMI 30-39.9) April 28 1:07pm Fusion of lumbar spine May 27, 2024 7:51am Fusion of spine of cervical region May 27, 2024 7:51am Lumbar radiculopathy May 27, 2024 7: 51am Lumbar scoliosis May 27, 2024 7:5 1am Borderline diabetes May 29, 2024 12: 07pm Preoperative examination May 29 12:07pm Abnormal finding present on diagnostic i maging of uterus June 06, 2024 2:03pm Coronary artery disease July 08, 2024 11 :31am Edema of both lower legs July 08, 2024 1 1:31am Essential hypertension July 08, 2024 11: 31am Hyperlipidemia July 08, 2024 11:31a m Chief Complaint Admit Date LUMBAR SPINE April 11, 2024 1 2:50pm Room 2 April 11, 2024 1 :14pm SCREENING April 17, 2024 10:29am FOLLOW UP April 28, 2024 1:07pm Pain May 13, 2024 8:1 2am LUMBAR SPINE May 27, 2024 7:5 1am SURGICAL CLEARANCE - KEEP 1 HR May 12:07pm DYSPHAGIA June 03, 2024 12:5 4pm WANTS A REFERRAL FOR OBGYN June 06 2:03pm ABNORMAL UTERINE FINDING June 16 3:29pm CONSTIPATION July 02, 2024 11: 25am CONSTIPATION July 02, 2024 4:0 3pm 6 M FU July 08, 2024 11:31a m FIBROIDS (BIM) July 22, 2024 10:37 am LT KNEE REPLACEMENT, SURGERY 06/24, RX HE RE July 23, 2024 3:30pm RLQ PAIN July 29, 2024 2:20p m Reason for Visit Admit Date Fusion of lumbar spine April 11 12:50pm Fusion of spine of cervical region Febru jennie 2024 12:50pm Lumbar radiculopathy April 11, 2024 12:50pm Lumbar scoliosis April 11, 2024 1 2:50pm Anxiety and depression April 28 1:07pm Difficulty swallowing April 28 1:07pm OAB (overactive bladder) April 28, 2024 1:07pm Obesity (BMI 30-39.9) April 28 1:07pm Fusion of lumbar spine May 27, 2024 7:51am Fusion of spine of cervical region May 27, 2024 7:51am Lumbar radiculopathy May 27, 2024 7: 51am Lumbar scoliosis May 27, 2024 7:5 1am Borderline diabetes May 29, 2024 12: 07pm Preoperative examination May 29 12:07pm Abnormal finding present on diagnostic i maging of uterus June 06, 2024 2:03pm Coronary artery disease July 08, 2024 11 :31am Edema of both lower legs July 08, 2024 1 1:31am Essential hypertension July 08, 2024 11: 31am Hyperlipidemia July 08, 2024 11:31a m Abnormal finding present on diagnostic i maging of uterus July 22, 2024 10:37am Constipation July 22, 2024 10:37 am Pelvic adhesions July 22, 2024 10:37 am Chief Complaint Admit Date LUMBAR SPINE April 11, 2024 1 2:50pm Room 2 April 11, 2024 1 :14pm SCREENING April 17, 2024 10:29am FOLLOW UP April 28, 2024 1:07pm Pain May 13, 2024 8:1 2am LUMBAR SPINE May 27, 2024 7:5 1am SURGICAL CLEARANCE - KEEP 1 HR May 12:07pm DYSPHAGIA June 03, 2024 12:5 4pm WANTS A REFERRAL FOR OBGYN June 06 2:03pm ABNORMAL UTERINE FINDING June 16 3:29pm CONSTIPATION July 02, 2024 11: 25am CONSTIPATION July 02, 2024 4:0 3pm 6 M FU July 08, 2024 11:31a m FIBROIDS (BIM) July 22, 2024 10:37 am LT KNEE REPLACEMENT, SURGERY 06/24, RX HE RE July 23, 2024 3:30pm RLQ PAIN July 29, 2024 2:20p m 3 M FU July 30, 2024 1:09p m Reason for Visit Admit Date Fusion of lumbar spine April 11 12:50pm Fusion of spine of cervical region Febru jennie 2024 12:50pm Lumbar radiculopathy April 11, 2024 12:50pm Lumbar scoliosis April 11, 2024 1 2:50pm Anxiety and depression April 28 1:07pm Difficulty swallowing April 28 1:07pm OAB (overactive bladder) April 28, 2024 1:07pm Obesity (BMI 30-39.9) April 28 1:07pm Fusion of lumbar spine May 27, 2024 7:51am Fusion of spine of cervical region May 27, 2024 7:51am Lumbar radiculopathy May 27, 2024 7: 51am Lumbar scoliosis May 27, 2024 7:5 1am Borderline diabetes May 29, 2024 12: 07pm Preoperative examination May 29 12:07pm Abnormal finding present on diagnostic i maging of uterus June 06, 2024 2:03pm Coronary artery disease July 08, 2024 11 :31am Edema of both lower legs July 08, 2024 1 1:31am Essential hypertension July 08, 2024 11: 31am Hyperlipidemia July 08, 2024 11:31a m Abnormal finding present on diagnostic i maging of uterus July 22, 2024 10:37am Constipation July 22, 2024 10:37 am Pelvic adhesions July 22, 2024 10:37 am Constipation July 29, 2024 2:20p m Reason for Visit Admit Date Fusion of lumbar spine April 11 12:50pm Fusion of spine of cervical region Febru jennie 2024 12:50pm Lumbar radiculopathy April 11, 2024 12:50pm Lumbar scoliosis April 11, 2024 1 2:50pm Anxiety and depression April 28 1:07pm Difficulty swallowing April 28 1:07pm OAB (overactive bladder) April 28, 2024 1:07pm Obesity (BMI 30-39.9) April 28 1:07pm Fusion of lumbar spine May 27, 2024 7:51am Fusion of spine of cervical region May 27, 2024 7:51am Lumbar radiculopathy May 27, 2024 7: 51am Lumbar scoliosis May 27, 2024 7:5 1am Borderline diabetes May 29, 2024 12: 07pm Preoperative examination May 29 12:07pm Abnormal finding present on diagnostic i maging of uterus June 06, 2024 2:03pm Coronary artery disease July 08, 2024 11 :31am Edema of both lower legs July 08, 2024 1 1:31am Essential hypertension July 08, 2024 11: 31am Hyperlipidemia July 08, 2024 11:31a m Abnormal finding present on diagnostic i maging of uterus July 22, 2024 10:37am Constipation July 22, 2024 10:37 am Pelvic adhesions July 22, 2024 10:37 am Constipation July 29, 2024 2:20p m Anxiety and depression July 30, 2024 1: 09pm Chronic abdominal pain July 30, 2024 1: 09pm Essential hypertension July 30, 2024 1: 09pm Hyperlipidemia July 30, 2024 1:09p m Type 2 diabetes mellitus July 30, 2024 1:09pm Chief Complaint Admit Date FOLLOW UP April 28, 2024 1:07pm Pain May 13, 2024 8:1 2am LUMBAR SPINE May 27, 2024 7:5 1am SURGICAL CLEARANCE - KEEP 1 HR May 12:07pm DYSPHAGIA June 03, 2024 12:5 4pm WANTS A REFERRAL FOR OBGYN June 06 2:03pm ABNORMAL UTERINE FINDING June 16 3:29pm CONSTIPATION July 02, 2024 11: 25am CONSTIPATION July 02, 2024 4:0 3pm 6 M FU July 08, 2024 11:31a m FIBROIDS (BIM) July 22, 2024 10:37 am LT KNEE REPLACEMENT, SURGERY 06/24, RX HE RE July 23, 2024 3:30pm RLQ PAIN July 29, 2024 2:20p m 3 M FU July 30, 2024 1:09p m Referral Order August 22, 2024 2:22 pm Reason for Visit Admit Date Anxiety and depression April 28 1:07pm Difficulty swallowing April 28 1:07pm OAB (overactive bladder) April 28, 2024 1:07pm Obesity (BMI 30-39.9) April 28 1:07pm Fusion of lumbar spine May 27, 2024 7:51am Fusion of spine of cervical region May 27, 2024 7:51am Lumbar radiculopathy May 27, 2024 7: 51am Lumbar scoliosis May 27, 2024 7:5 1am Borderline diabetes May 29, 2024 12: 07pm Preoperative examination May 29 12:07pm Abnormal finding present on diagnostic i maging of uterus June 06, 2024 2:03pm Coronary artery disease July 08, 2024 11 :31am Edema of both lower legs July 08, 2024 1 1:31am Essential hypertension July 08, 2024 11: 31am Hyperlipidemia July 08, 2024 11:31a m Abnormal finding present on diagnostic i maging of uterus July 22, 2024 10:37am Constipation July 22, 2024 10:37 am Pelvic adhesions July 22, 2024 10:37 am Constipation July 29, 2024 2:20p m Anxiety and depression July 30, 2024 1: 09pm Chronic abdominal pain July 30, 2024 1: 09pm Essential hypertension July 30, 2024 1: 09pm Hyperlipidemia July 30, 2024 1:09p m Type 2 diabetes mellitus July 30, 2024 1:09pm Chief Complaint Admit Date Pain May 13, 2024 8:1 2am LUMBAR SPINE May 27, 2024 7:5 1am SURGICAL CLEARANCE - KEEP 1 HR May 12:07pm DYSPHAGIA June 03, 2024 12:5 4pm WANTS A REFERRAL FOR OBGYN June 06 2:03pm ABNORMAL UTERINE FINDING June 16 3:29pm CONSTIPATION July 02, 2024 11: 25am CONSTIPATION July 02, 2024 4:0 3pm 6 M FU July 08, 2024 11:31a m FIBROIDS (BIM) July 22, 2024 10:37 am LT KNEE REPLACEMENT, SURGERY 06/24, RX HE RE July 23, 2024 3:30pm RLQ PAIN July 29, 2024 2:20p m 3 M FU July 30, 2024 1:09p m Referral Order August 22, 2024 2:22 pm 1 Y FU September 02, 2024 11:23 am Reason for Visit Admit Date Fusion of lumbar spine May 27, 2024 7:51am Fusion of spine of cervical region May 27, 2024 7:51am Lumbar radiculopathy May 27, 2024 7: 51am Lumbar scoliosis May 27, 2024 7:5 1am Borderline diabetes May 29, 2024 12: 07pm Preoperative examination May 29 12:07pm Abnormal finding present on diagnostic i maging of uterus June 06, 2024 2:03pm Coronary artery disease July 08, 2024 11 :31am Edema of both lower legs July 08, 2024 1 1:31am Essential hypertension July 08, 2024 11: 31am Hyperlipidemia July 08, 2024 11:31a m Abnormal finding present on diagnostic i maging of uterus July 22, 2024 10:37am Constipation July 22, 2024 10:37 am Pelvic adhesions July 22, 2024 10:37 am Constipation July 29, 2024 2:20p m Anxiety and depression July 30, 2024 1: 09pm Chronic abdominal pain July 30, 2024 1: 09pm Essential hypertension July 30, 2024 1: 09pm Hyperlipidemia July 30, 2024 1:09p m Type 2 diabetes mellitus July 30, 2024 1:09pm Chief Complaint Admit Date 6 M FU July 08, 2024 11:31a m FIBROIDS (BIM) July 22, 2024 10:37 am RLQ PAIN July 29, 2024 2:20p m 3 M FU July 30, 2024 1:09p m Referral Order August 22, 2024 2:22 pm 1 Y FU September 02, 2024 11:23 am LT KNEE REPLACEMENT, SURGERY 06/24, RX HE RE September 26, 2024 3:00pm TYPE 2 DM September 30, 2024 10:3 3am 3 M FU October 31, 2024 1: 41pm Reason for Visit Admit Date Coronary artery disease July 08, 2024 11 :31am Edema of both lower legs July 08, 2024 1 1:31am Essential hypertension July 08, 2024 11: 31am Hyperlipidemia July 08, 2024 11:31a m Abnormal finding present on diagnostic i maging of uterus July 22, 2024 10:37am Constipation July 22, 2024 10:37 am Pelvic adhesions July 22, 2024 10:37 am Constipation July 29, 2024 2:20p m Anxiety and depression July 30, 2024 1: 09pm Chronic abdominal pain July 30, 2024 1: 09pm Essential hypertension July 30, 2024 1: 09pm Hyperlipidemia July 30, 2024 1:09p m Type 2 diabetes mellitus July 30, 2024 1:09pm Obesity (BMI 30-39.9) September 02, 2024 11: 23am HESHAM (obstructive sleep apnea) September 02, 2024 11:23am Chief Complaint Admit Date FIBROIDS (BIM) July 22, 2024 10:37 am RLQ PAIN July 29, 2024 2:20p m 3 M FU July 30, 2024 1:09p m Referral Order August 22, 2024 2:22 pm 1 Y FU September 02, 2024 11:23 am LT KNEE REPLACEMENT, SURGERY 06/24, RX HE RE September 26, 2024 3:00pm TYPE 2 DM September 30, 2024 10:3 3am 3 M FU October 31, 2024 1: 41pm E ORDER November 01, 2024 9: 00am TYPE 2 DM November 05, 2024 10:20am Reason for Visit Admit Date Abnormal finding present on diagnostic i maging of uterus July 22, 2024 10:37am Constipation July 22, 2024 10:37 am Pelvic adhesions July 22, 2024 10:37 am Constipation July 29, 2024 2:20p m Anxiety and depression July 30, 2024 1: 09pm Chronic abdominal pain July 30, 2024 1: 09pm Essential hypertension July 30, 2024 1: 09pm Hyperlipidemia July 30, 2024 1:09p m Type 2 diabetes mellitus July 30, 2024 1:09pm Obesity (BMI 30-39.9) September 02, 2024 11: 23am HESHAM (obstructive sleep apnea) September 02, 2024 11:23am Concern about memory October 31, 2024 1 :41pm Anxiety and depression October 31, 2024 1:41pm Essential hypertension October 31, 2024 1:41pm OAB (overactive bladder) October 31 1:41pm Type 2 diabetes mellitus October 31 1:41pm Chief Complaint Admit Date 1 Y FU September 02, 2024 11:23 am LT KNEE REPLACEMENT, SURGERY 06/24, RX HE RE September 26, 2024 3:00pm TYPE 2 DM September 30, 2024 10:3 3am 3 M FU October 31, 2024 1: 41pm E ORDER November 01, 2024 9: 00am TYPE 2 DM November 05, 2024 10:20am Reason for Visit Admit Date Obesity (BMI 30-39.9) September 02, 2024 11: 23am HESHAM (obstructive sleep apnea) September 02, 2024 11:23am Concern about memory October 31, 2024 1 :41pm Anxiety and depression October 31, 2024 1:41pm Essential hypertension October 31, 2024 1:41pm OAB (overactive bladder) October 31 1:41pm Type 2 diabetes mellitus October 31 1:41pm Additional Source Comments INFORMATION SOURCE (unrecogn ized section and content) DATE CREATED AUTHOR 09/23/2017 [facility] DATE CREATED AUTHOR AUTHOR'S ORGANIZ ATION 08/13/2018 [facility] DATE CREATED AUTHOR AUTHOR'S ORGANIZ ATION 12/05/2021 [facility] DATE CREATED AUTHOR AUTHOR'S ORGANIZ ATION 03/06/2022 [facility] ([place] DATE CREATED AUTHOR AUTHOR'S ORGANIZ ATION 08/24/2024 [facility] DATE CREATED AUTHOR AUTHOR'S ORGANIZ ATION 01/14/2025 [facility] Goals (unrecognized section and content) Goals may be documented in a n alternate sectionGoals may be documented in an alternate sectionGoals may be documented in an alternate sectionGoals may be documented in an alternate sectionGoals may be documented in an alternate sectionGoals may be documented in an alternate sectionGoals may be documented in an alternate sectionGoals may be documented in an alternate sectionGoals may be documented in an alternate sectionGoals may be documented in an alternate sectionGoals may be documented in an alternate sectionGoals may be documented in an alternate section No data available for this sectionGoals may be documented in an alternate section No data available for this sectionGoals may be documented in an alternate sectionGoals may be documented in an alternate sectionGoals may be documented in an alternate sectionGoals may be documented in an alternate sectionGoals may be documented in an alternate sectionGoals may be documented in an alternate sectionGoals may be documented in an alternate sectionGoals may be documented in an alternate sectionGoals may be documented in an alternate sectionGoals may be documented in an alternate section No data available for this sectionGoals may be documented in an alternate sectionGoals may be documented in an alternate sectionGoals may be documented in an alternate sectionGoals may be documented in an alternate sectionGoals may be documented in an alternate sectionGoals may be documented in an alternate sectionGoals may be documented in an alternate sectionGoals may be documented in an alternate sectionGoals may be documented in an alternate sectionGoals may be documented in an alternate sectionGoals may be documented in an alternate section Care Team (unrecognized sect ion and content) Care Team Personnel Name: GENTRY PLASCENCIA MD Member Role: Primary Care Physician Address: Address: [facility] [address] [place] [address]- [place] Care Team Related Persons Name: DELMY BERG Address: Home [address] [place] [address], [place] [address] Care Team Personnel Name: GENTRY PLASCENCIA MD Member Role: Primary Care Physician Address: Address: [facility] [address] [place] [address]- [place] Care Team Related Persons Name: DELMY BERG Address: Home [address] [place] [address], [place] [address] Care Teams (unrecognized sec tion and content) Team Status: Active Member Role Status Dates Dr. Parish Plascencia MD Family Provider Active Dr. Parish Plascencia MD Primary Care Provider Active Team Status: Inactive Member Role Status Dates Dr. Parish Plascencia MD Primary Care Provi lurdes, Attending Provider, Referring Provider Active Team Status: Active Member Role Status Dates Dr. Parish Plascencia MD Family Provider Active Dr. Delta Sahu MD Primary Care Provider Active Team Status: Inactive Member Role Status Dates Dr. Parish Plascencia MD Primary Care Provider, Referring Provider Active Dr. Delta Sahu MD Attending Provider Active Team Status: Inactive Member Role Status Dates Dr. Delta Sahu MD Primary Care P sanjay, Attending Provider, Referring Provider Active Team Status: Inactive Member Role Status Dates Dr. Parish Plascencia MD Referring Provider Active Gurinder Saavedra MANAGER [employer], MANAGER [employer]-C Attending Provider Active Dr. Delta Sahu MD Primary Care Provider Active Team Status: Inactive Member Role Status Dates Dr. Delta Sahu MD Primary Care Provider, Refer ring Provider Active Meg Gusman MANAGER [employer], MANAGER [employer]-C Attending Provider Active Team Status: Active Member Role Status Dates Dr. Delta Sahu MD Primary Care Provider Active Meg Gusman MANAGER [employer], MANAGER [employer]-C Referring Provider, Other Pr ovider Active Dr. Berhane Mcintosh MD Attending Provider Active Team Status: Inactive Member Role Status Dates Dr. Delta Sahu MD Primary Care Provider Active Meg Gusman MANAGER [employer], MANAGER [employer]-C Attending Provider, Referrin g Provider Active Team Status: Active Member Role Status Dates Dr. Delta Sahu MD Primary Care Provider Active Meg Gusman MANAGER [employer], MANAGER [employer]-C Referring Provider, Other Pr ovider Active Dr. Bertrand Schroeder , DO Attending Provider Active Team Status: Active Member Role Status Dates Dr. Delta Sahu MD Primary Care Provider Active Dr. Laura Carpio MD Attending Provider Active Dr. David Benjamin , DO Referring Provider Active Team Status: Active Member Role Status Dates Dr. Delta Sahu MD Primary Care Provider Active Dr. David Benjamin , DO Referring Provider, Other Provi lurdes Active Dr. Heather Forrest MD Other Provider Active Dr. Leroy Piña , DO Other Provider Active Dr. Janae Santo MD Other Provider Active Dr. Janae Gaston MD Other Provider Active Dr. Genie Phillips MD Other Provider Active Dr. Florence Solorzano MD Attending Provider, Other Prov ider Active Dr. Alina Ireland , DO Other Provider Active Dr. Rajiv Bose , DO Other Provider Active Dr. Rajiv Hayes MD Other Provider Active Barry Lau MD Other Provider Active Dr. Angela Rockwell , DO Other Provider Active Dr. Zayda Sahu MD Other Provider Active Dr. Russ Erwin MD Other Provider Active Dr. Kelvin Hernadez MD Other Provider Active Dr. Michael Rowell , DO Other Provider Active Dr. Imelda Carvajal , DO Other Provider Active Dr. Karthik Moreira , DO Other Provider Active Dr. Che Sepulveda MD Other Provider Active Dr. Malachi Butler MD Other Provider Active Dr. Reji Montano MD Other Provider Active Dr. Conrad Eubanks MD Other Provider Active Dr. Liz Zeng MD Other Provider Active Dr. Manish Gonzalez MD Other Provider Active Emilie Lay MANAGER [employer], MANAGER [employer]-C Other Provider Active Gurinder HALL Other Provider Active Team Status: Inactive Member Role Status Dates Dr. Delta Sahu MD Primary Care Provider Active Dr. David Benjamin , DO Admit Provider, A ttending Provider, Referring Provider Active Dr. Heather Forrest MD Other Provider Active Dr. Leroy Piña , DO Other Provider Active Dr. Janae Santo MD Other Provider Active Dr. Janae Gaston MD Other Provider Active Dr. Genie Phillips MD Other Provider Active Dr. Florence Solorzano MD Other Provider Active Dr. Alina Ireland , DO Other Provider Active Dr. Rajiv Bose , DO Other Provider Active Dr. Rajiv Hayes MD Other Provider Active Barry Lau MD Other Provider Active Dr. Angela Rockwell , DO Other Provider Active Dr. Zayda Sahu MD Other Provider Active Dr. Russ Erwin MD Other Provider Active Dr. Kelvin Hernadez MD Other Provider Active Dr. Michael Rowell , DO Other Provider Active Dr. Imelda Carvajal , DO Other Provider Active Dr. Karthik Moreira , DO Other Provider Active Dr. Che Sepulveda MD Other Provider Active Dr. Malachi Butler MD Other Provider Active Dr. Reji Montano MD Other Provider Active Dr. Conrad Eubanks MD Other Provider Active Dr. Liz Zeng MD Other Provider Active Dr. Manish Gonzalez MD Other Provider Active Emilie Lay MANAGER [employer], MANAGER [employer]-C Other Provider Active Gurinder HALL Other Provider Active Team Status: Inactive Member Role Status Dates Dr. Delta Sahu MD Primary Care Provider, Atten ding Provider Active Team Status: Inactive Member Role Status Dates Dr. Delta Sahu MD Primary Care Provider, Refer ring Provider Active Dr. Dragan Webb MD Attending Provider Active Team Status: Inactive Member Role Status Dates Dr. Delta Sahu MD Primary Care Provider, Refer ring Provider Active Dr. Laura Carpio MD Attending Provider Active Team Status: Inactive Member Role Status Dates Dr. Delta Sahu MD Primary Care Provider Active Meg Gusman MANAGER [employer], MANAGER [employer]-C Attending Provider Active Team Status: Active Member Role Status Dates Dr. Delta Sahu MD Primary Care Provider Active Team Status: Inactive Member Role Status Dates Dr. Delta Sahu MD Primary Care Provider Active Start: February 21, 2024 End: February 21, 2024 Dr. Dragan Sheets MD Attending Provider Active Start: February 21, 2024 End: February 21, 2024 Dr. Dragan Sheets MD Referring Provider Active Start: February 21, 2024 End: February 21, 2024 Team Status: Inactive Member Role Status Dates Dr. Delta Sahu MD Primary Care Provider Active Start: April 11, 2024 End: April 11, 2024 Dr. Delta Sahu MD Referring Provider Active Start: April 11, 2024 End: April 11, 2024 Dr. Corona Batres MD Attending Provider Active Start: April 11, 2024 End: April 11, 2024 Team Status: Inactive Member Role Status Dates Dr. Delta Sahu MD Primary Care Provider Active Start: April 11, 2024 End: April 11, 2024 Dr. Kali Cantu MD Attending Provider Active S tart: April 11, 2024 End: April 11, 2024 Team Status: Inactive Member Role Status Dates Dr. Delta Sahu MD Primary Care Provider Active Start: April 17, 2024 End: April 17, 2024 Dr. Delta Sahu MD Attending Provider Active Start: April 17, 2024 End: April 17, 2024 Dr. Delta Sahu MD Referring Provider Active Start: April 17, 2024 End: April 17, 2024 Team Status: Inactive Member Role Status Dates Dr. Delta Sahu MD Primary Care Provider Active Start: April 28, 2024 End: April 28, 2024 Dr. Delta Sahu MD Attending Provider Active Start: April 28, 2024 End: April 28, 2024 Dr. Delta Sahu MD Referring Provider Active Start: April 28, 2024 End: April 28, 2024 Team Status: Inactive Member Role Status Dates Dr. Delta Sahu MD Primary Care Provider Active Start: May 13, 2024 End: May 13, 2024 Dr. Corona Batres MD Attending Provider Active Start: May 13, 2024 End: May 13, 2024 Dr. Corona Batres MD Referring Provider Active Start: May 13, 2024 End: May 13, 2024 Team Status: Inactive Member Role Status Dates Dr. Delta Sahu MD Primary Care Provider Active Start: May 27, 2024 End: May 27, 2024 Dr. Delta Sahu MD Referring Provider Active Start: May 27, 2024 End: May 27, 2024 Dr. Corona Batres MD Attending Provider Active Start: May 27, 2024 End: May 27, 2024 Team Status: Inactive Member Role Status Dates Dr. Delta Sahu MD Primary Care Provider Active Start: May 29, 2024 End: May 29, 2024 Dr. Delta Sahu MD Referring Provider Active Start: May 29, 2024 End: May 29, 2024 ISABEL Pruett Attending Provider Active St art: May 29, 2024 End: May 29, 2024 Team Status: Inactive Member Role Status Dates Dr. Delta Sahu MD Primary Care Provider Active Start: June 03, 2024 End: June 03, 2024 Dr. Delta Sahu MD Attending Provider Active Start: June 03, 2024 End: June 03, 2024 Dr. Delta Sahu MD Referring Provider Active Start: June 03, 2024 End: June 03, 2024 Team Status: Active Member Role Status Dates Dr. Delta Sahu MD Primary Care Provider Active Start: June 04, 2024 Dr. Christopher Kruger MD Attending Provider Active Start: June 04, 2024 Dr. Christopher Kruger MD Referring Provider Active Start: June 04, 2024 Team Status: Inactive Member Role Status Dates Dr. Delta Sahu MD Primary Care Provider Active Start: June 06, 2024 End: June 06, 2024 Dr. Delta Sahu MD Attending Provider Active Start: June 06, 2024 End: June 06, 2024 Dr. Delta Sahu MD Referring Provider Active Start: June 06, 2024 End: June 06, 2024 Team Status: Inactive Member Role Status Dates Dr. Delta Sahu MD Primary Care Provider Active Start: June 04, 2024 End: June 04, 2024 Dr. Christopher Kruger MD Attending Provider Active Start: June 04, 2024 End: June 04, 2024 Dr. Christopher Kruger MD Referring Provider Active Start: June 04, 2024 End: June 04, 2024 Team Status: Inactive Member Role Status Dates Dr. Delta Sahu MD Primary Care Provider Active Start: June 16, 2024 End: June 16, 2024 Dr. Delta Sahu MD Attending Provider Active Start: June 16, 2024 End: June 16, 2024 Dr. Delta Sahu MD Referring Provider Active Start: June 16, 2024 End: June 16, 2024 Team Status: Inactive Member Role Status Dates Dr. Delta Sahu MD Primary Care Provider Active Start: July 02, 2024 End: July 02, 2024 Dr. Monico Zavaleta DO Attending Provider Activ e Start: July 02, 2024 End: July 02, 2024 Dr. Monico Zavaleta , DO Emergency Provider Activ e Start: July 02, 2024 End: July 02, 2024 Team Status: Active Member Role Status Dates Dr. Delta Sahu MD Primary Care Provider Active Start: July 02, 2024 Dr. Monico Zavaleta DO Emergency Provider Activ e Start: July 02, 2024 Dr. Malachi Butler MD Attending Provider Active Start: July 02, 2024 Team Status: Inactive Member Role Status Dates Dr. Delta Sahu MD Primary Care Provider Active Start: July 08, 2024 End: July 08, 2024 Dr. Delta Sahu MD Referring Provider Active Start: July 08, 2024 End: July 08, 2024 ISABEL Godoy Attending Provider Active St art: July 08, 2024 End: July 08, 2024 Team Status: Active Member Role Status Dates Dr. Delta Sahu MD Primary Care Provider Active Start: July 18, 2024 Wilber HALL PA-C Attending Provider Active Start: July 18, 2024 Wilber HALL PA-C Referring Provider Active Start: July 18, 2024 Dr. Christopher Kruger MD Other Provider Active Sta rt: July 18, 2024 Team Status: Inactive Member Role Status Dates Dr. Delta Sahu MD Primary Care Provider Active Start: July 22, 2024 End: July 22, 2024 Dr. Delta Sahu MD Referring Provider Active Start: July 22, 2024 End: July 22, 2024 Dr. Carla Hay DO Attending Provider Activ e Start: July 22, 2024 End: July 22, 2024 Team Status: Active Member Role Status Dates Dr. Delta Sahu MD Primary Care Provider Active Start: July 23, 2024 Wilber HALL PAHernán Attending Provider Active Start: July 23, 2024 EVANGELISTA AndresC Referring Provider Active Start: July 23, 2024 Dr. Christopher Kruger MD Other Provider Active Sta rt: July 23, 2024 Team Status: Inactive Member Role Status Dates Dr. Delta Sahu MD Primary Care Provider Active Start: July 29, 2024 End: July 29, 2024 Dr. Delta Sahu MD Referring Provider Active Start: July 29, 2024 End: July 29, 2024 Dr. Christopher Lema MD Attending Provider Active Start: July 29, 2024 End: July 29, 2024 Team Status: Inactive Member Role Status Dates Dr. Delta Sahu MD Primary Care Provider Active Start: July 30, 2024 End: July 30, 2024 Dr. Delta Sahu MD Attending Provider Active Start: July 30, 2024 End: July 30, 2024 Dr. Delta Sahu MD Referring Provider Active Start: July 30, 2024 End: July 30, 2024 Team Status: Active Member Role Status Dates Dr. Delta Sahu MD Primary Care Provider Active Start: July 30, 2024 Dr. Delta Sahu MD Attending Provider Active Start: July 30, 2024 Dr. Delta Sahu MD Referring Provider Active Start: July 30, 2024 Team Status: Active Member Role Status Dates Dr. Delta Sahu MD Primary Care Provider Active Start: August 22, 2024 Dr. Delta Sahu MD Attending Provider Active Start: August 22, 2024 Team Status: Active Member Role/Relationship Status Dates Dr. Delta Sahu MD Primary Care Provider Active Team Status: Inactive Member Role/Relationship Status Dates Dr. Delta Sahu MD Primary Care Provider Active Start: May 13, 2024 End: May 13, 2024 Dr. Corona Batres MD Attending Provider Active Start: May 13, 2024 End: May 13, 2024 Dr. Corona Batres MD Referring Provider Active Start: May 13, 2024 End: May 13, 2024 Team Status: Inactive Member Role/Relationship Status Dates Dr. Delta Sahu MD Primary Care Provider Active Start: May 27, 2024 End: May 27, 2024 Dr. Delta Sahu MD Referring Provider Active Start: May 27, 2024 End: May 27, 2024 Dr. Corona Batres MD Attending Provider Active Start: May 27, 2024 End: May 27, 2024 Team Status: Inactive Member Role/Relationship Status Dates Dr. Delta Sahu MD Primary Care Provider Active Start: May 29, 2024 End: May 29, 2024 Dr. Delta Sahu MD Referring Provider Active Start: May 29, 2024 End: May 29, 2024 ISABEL Pruett Attending Provider Active St art: May 29, 2024 End: May 29, 2024 Team Status: Inactive Member Role/Relationship Status Dates Dr. Delta Sahu MD Primary Care Provider Active Start: June 03, 2024 End: June 03, 2024 Dr. Delta Sahu MD Attending Provider Active Start: June 03, 2024 End: June 03, 2024 Dr. Delta Sahu MD Referring Provider Active Start: June 03, 2024 End: June 03, 2024 Team Status: Inactive Member Role/Relationship Status Dates Dr. Delta Sahu MD Primary Care Provider Active Start: June 04, 2024 End: June 04, 2024 Dr. Christopher Kruger MD Attending Provider Active Start: June 04, 2024 End: June 04, 2024 Dr. Christopher Kruger MD Referring Provider Active Start: June 04, 2024 End: June 04, 2024 Team Status: Inactive Member Role/Relationship Status Dates Dr. Delta Sahu MD Primary Care Provider Active Start: June 06, 2024 End: June 06, 2024 Dr. Delta Sahu MD Attending Provider Active Start: June 06, 2024 End: June 06, 2024 Dr. Delta Sahu MD Referring Provider Active Start: June 06, 2024 End: June 06, 2024 Team Status: Inactive Member Role/Relationship Status Dates Dr. Delta Sahu MD Primary Care Provider Active Start: June 16, 2024 End: June 16, 2024 Dr. Delta Sahu MD Attending Provider Active Start: June 16, 2024 End: June 16, 2024 Dr. Delta Sahu MD Referring Provider Active Start: June 16, 2024 End: June 16, 2024 Team Status: Inactive Member Role/Relationship Status Dates Dr. Delta Sahu MD Primary Care Provider Active Start: July 02, 2024 End: July 02, 2024 Dr. Monico Zavaleta DO Attending Provider Activ e Start: July 02, 2024 End: July 02, 2024 Dr. Monico Zavaleta DO Emergency Provider Activ e Start: July 02, 2024 End: July 02, 2024 Team Status: Active Member Role/Relationship Status Dates Dr. Delta Sahu MD Primary Care Provider Active Start: July 02, 2024 Dr. Monico Zavaleta DO Emergency Provider Activ e Start: July 02, 2024 Dr. Malachi Butler MD Attending Provider Active Start: July 02, 2024 Team Status: Inactive Member Role/Relationship Status Dates Dr. Delta Sahu MD Primary Care Provider Active Start: July 08, 2024 End: July 08, 2024 Dr. Delta Sahu MD Referring Provider Active Start: July 08, 2024 End: July 08, 2024 ISABEL Godoy Attending Provider Active St art: July 08, 2024 End: July 08, 2024 Team Status: Inactive Member Role/Relationship Status Dates Dr. Delta Sahu MD Primary Care Provider Active Start: July 22, 2024 End: July 22, 2024 Dr. Delta Sahu MD Referring Provider Active Start: July 22, 2024 End: July 22, 2024 Dr. Carla Hay DO Attending Provider Activ e Start: July 22, 2024 End: July 22, 2024 Team Status: Active Member Role/Relationship Status Dates Dr. Delta Sahu MD Primary Care Provider Active Start: July 23, 2024 Wilber HALL PA-C Attending Provider Active Start: July 23, 2024 Wilber HALL PA-C Referring Provider Active Start: July 23, 2024 Dr. Christopher Kruger MD Other Provider Active Sta rt: July 23, 2024 Team Status: Inactive Member Role/Relationship Status Dates Dr. Delta Sahu MD Primary Care Provider Active Start: July 29, 2024 End: July 29, 2024 Dr. Delta Sahu MD Referring Provider Active Start: July 29, 2024 End: July 29, 2024 Dr. Christopher Lema MD Attending Provider Active Start: July 29, 2024 End: July 29, 2024 Team Status: Inactive Member Role/Relationship Status Dates Dr. Delta Sahu MD Primary Care Provider Active Start: July 30, 2024 End: July 30, 2024 Dr. Delta Sahu MD Attending Provider Active Start: July 30, 2024 End: July 30, 2024 Dr. Delta Sahu MD Referring Provider Active Start: July 30, 2024 End: July 30, 2024 Team Status: Inactive Member Role/Relationship Status Dates Dr. Delta Sahu MD Primary Care Provider Active Start: July 30, 2024 End: July 30, 2024 Dr. Delta Sahu MD Attending Provider Active Start: July 30, 2024 End: July 30, 2024 Dr. Delta Sahu MD Referring Provider Active Start: July 30, 2024 End: July 30, 2024 Team Status: Active Member Role/Relationship Status Dates Dr. Delta Sahu MD Primary Care Provider Active Start: August 22, 2024 Dr. Delta Sahu MD Attending Provider Active Start: August 22, 2024 Team Status: Inactive Member Role/Relationship Status Dates Dr. Delta Sahu MD Primary Care Provider Active Start: September 02, 2024 End: September 02, 2024 Dr. Delta Sahu MD Referring Provider Active Start: September 02, 2024 End: September 02, 2024 Meg Gusman NP, MANAGER [employer]-C Attending Provider Active Start: September 02, 2024 End: September 02, 2024 Team Status: Inactive Member Role/Relationship Status Dates Dr. Delta Sahu MD Primary Care Provider Active Start: June 06, 2024 End: June 06, 2024 Dr. Delta Sahu MD Attending Provider Active Start: June 06, 2024 End: June 06, 2024 Dr. Delta Sahu MD Referring Provider Active Start: June 06, 2024 End: June 06, 2024 Team Status: Inactive Member Role/Relationship Status Dates Dr. Delta Sahu MD Primary Care Provider Active Start: June 16, 2024 End: June 16, 2024 Dr. Delta Sahu MD Attending Provider Active Start: June 16, 2024 End: June 16, 2024 Dr. Delta Sahu MD Referring Provider Active Start: June 16, 2024 End: June 16, 2024 Team Status: Inactive Member Role/Relationship Status Dates Dr. Delta Sahu MD Primary Care Provider Active Start: July 02, 2024 End: July 02, 2024 Dr. Monico Zavaleta DO Attending Provider Activ e Start: July 02, 2024 End: July 02, 2024 Dr. Monico Zavaleta DO Emergency Provider Activ e Start: July 02, 2024 End: July 02, 2024 Team Status: Active Member Role/Relationship Status Dates Dr. Delta Sahu MD Primary Care Provider Active Start: July 02, 2024 Dr. Monico Zavaleta DO Emergency Provider Activ e Start: July 02, 2024 Dr. Malachi Butler MD Attending Provider Active Start: July 02, 2024 Team Status: Inactive Member Role/Relationship Status Dates Dr. Delta Sahu MD Primary Care Provider Active Start: July 08, 2024 End: July 08, 2024 Dr. Delta Sahu MD Referring Provider Active Start: July 08, 2024 End: July 08, 2024 ISABEL Godoy Attending Provider Active St art: July 08, 2024 End: July 08, 2024 Team Status: Inactive Member Role/Relationship Status Dates Dr. Delta Sahu MD Primary Care Provider Active Start: July 22, 2024 End: July 22, 2024 Dr. Delta Sahu MD Referring Provider Active Start: July 22, 2024 End: July 22, 2024 Dr. Carla Hay DO Attending Provider Activ e Start: July 22, 2024 End: July 22, 2024 Team Status: Inactive Member Role/Relationship Status Dates Dr. Delta Sahu MD Primary Care Provider Active Start: July 29, 2024 End: July 29, 2024 Dr. Delta Sahu MD Referring Provider Active Start: July 29, 2024 End: July 29, 2024 Dr. Christopher Lema MD Attending Provider Active Start: July 29, 2024 End: July 29, 2024 Team Status: Inactive Member Role/Relationship Status Dates Dr. Delta Sahu MD Primary Care Provider Active Start: July 30, 2024 End: July 30, 2024 Dr. Delta Sahu MD Attending Provider Active Start: July 30, 2024 End: July 30, 2024 Dr. Delta Sahu MD Referring Provider Active Start: July 30, 2024 End: July 30, 2024 Team Status: Inactive Member Role/Relationship Status Dates Dr. Delta Sahu MD Primary Care Provider Active Start: July 30, 2024 End: July 30, 2024 Dr. Delta Sahu MD Attending Provider Active Start: July 30, 2024 End: July 30, 2024 Dr. Delta Sahu MD Referring Provider Active Start: July 30, 2024 End: July 30, 2024 Team Status: Active Member Role/Relationship Status Dates Dr. Delta Sahu MD Primary Care Provider Active Start: August 22, 2024 Dr. Delta Sahu MD Attending Provider Active Start: August 22, 2024 Team Status: Inactive Member Role/Relationship Status Dates Dr. Delta Sahu MD Primary Care Provider Active Start: September 02, 2024 End: September 02, 2024 Dr. Delta Sahu MD Referring Provider Active Start: September 02, 2024 End: September 02, 2024 Meg Gusman MANAGER [employer], MA[employer]GER [employer]C Attending Provider Active Start: September 02, 2024 End: September 02, 2024 Team Status: Active Member Role/Relationship Status Dates Dr. Delta Sahu MD Primary Care Provider Active Start: September 26, 2024 Wilber HALL PA-C Attending Provider Active Start: September 26, 2024 Wilber HALL PA-C Referring Provider Active Start: September 26, 2024 Dr. Christopher Kruger MD Other Provider Active Sta rt: September 26, 2024 Team Status: Inactive Member Role/Relationship Status Dates Dr. Delta Sahu MD Primary Care Provider Active Start: September 30, 2024 End: October 02, 2024 Dr. Delta Sahu MD Attending Provider Active Start: September 30, 2024 End: October 02, 2024 Dr. Delta Sahu MD Referring Provider Active Start: September 30, 2024 End: October 02, 2024 Team Status: Inactive Member Role/Relationship Status Dates Dr. Delta Sahu MD Primary Care Provider Active Start: July 08, 2024 End: July 08, 2024 Dr. Delta Sahu MD Referring Provider Active Start: July 08, 2024 End: July 08, 2024 ISABEL Godoy Attending Provider Active St art: July 08, 2024 End: July 08, 2024 Team Status: Inactive Member Role/Relationship Status Dates Dr. Delta Sahu MD Primary Care Provider Active Start: July 22, 2024 End: July 22, 2024 Dr. Delta Sahu MD Referring Provider Active Start: July 22, 2024 End: July 22, 2024 Dr. Carla Hay DO Attending Provider Activ e Start: July 22, 2024 End: July 22, 2024 Team Status: Inactive Member Role/Relationship Status Dates Dr. Delta Sahu MD Primary Care Provider Active Start: July 29, 2024 End: July 29, 2024 Dr. Delta Sahu MD Referring Provider Active Start: July 29, 2024 End: July 29, 2024 Dr. Christopher Lema MD Attending Provider Active Start: July 29, 2024 End: July 29, 2024 Team Status: Inactive Member Role/Relationship Status Dates Dr. Delta Sahu MD Primary Care Provider Active Start: July 30, 2024 End: July 30, 2024 Dr. Delta Sahu MD Attending Provider Active Start: July 30, 2024 End: July 30, 2024 Dr. Delta Sahu MD Referring Provider Active Start: July 30, 2024 End: July 30, 2024 Team Status: Inactive Member Role/Relationship Status Dates Dr. Delta Sahu MD Primary Care Provider Active Start: July 30, 2024 End: July 30, 2024 Dr. Delta Sahu MD Attending Provider Active Start: July 30, 2024 End: July 30, 2024 Dr. Delta Sahu MD Referring Provider Active Start: July 30, 2024 End: July 30, 2024 Team Status: Active Member Role/Relationship Status Dates Dr. Delta Sahu MD Primary Care Provider Active Start: August 22, 2024 Dr. Delta Sahu MD Attending Provider Active Start: August 22, 2024 Team Status: Inactive Member Role/Relationship Status Dates Dr. Delta Sahu MD Primary Care Provider Active Start: September 02, 2024 End: September 02, 2024 Dr. Delta Sahu MD Referring Provider Active Start: September 02, 2024 End: September 02, 2024 Meg Gusman MANAGER [employer], MANAGER [employer]-C Attending Provider Active Start: September 02, 2024 End: September 02, 2024 Team Status: Active Member Role/Relationship Status Dates Dr. Delta Sahu MD Primary Care Provider Active Start: September 26, 2024 Wilber HALL, PA-C Attending Provider Active Start: September 26, 2024 Wilber HALL PA-C Referring Provider Active Start: September 26, 2024 Dr. Christopher Kruger MD Other Provider Active Sta rt: September 26, 2024 Team Status: Inactive Member Role/Relationship Status Dates Dr. Delta Sahu MD Primary Care Provider Active Start: September 30, 2024 End: October 02, 2024 Dr. Delta Sahu MD Attending Provider Active Start: September 30, 2024 End: October 02, 2024 Dr. Delta Sahu MD Referring Provider Active Start: September 30, 2024 End: October 02, 2024 Team Status: Inactive Member Role/Relationship Status Dates Dr. Delta Sahu MD Primary Care Provider Active Start: October 31, 2024 End: October 31, 2024 Dr. Delta Sahu MD Attending Provider Active Start: October 31, 2024 End: October 31, 2024 Dr. Delta Sahu MD Referring Provider Active Start: October 31, 2024 End: October 31, 2024 Team Status: Inactive Member Role/Relationship Status Dates Dr. Delta Sahu MD Primary Care Provider Active Start: July 22, 2024 End: July 22, 2024 Dr. Delta Sahu MD Referring Provider Active Start: July 22, 2024 End: July 22, 2024 Dr. Carla Hay DO Attending Provider Activ e Start: July 22, 2024 End: July 22, 2024 Team Status: Inactive Member Role/Relationship Status Dates Dr. Delta Sahu MD Primary Care Provider Active Start: July 29, 2024 End: July 29, 2024 Dr. Delta Sahu MD Referring Provider Active Start: July 29, 2024 End: July 29, 2024 Dr. Christopher Lema MD Attending Provider Active Start: July 29, 2024 End: July 29, 2024 Team Status: Inactive Member Role/Relationship Status Dates Dr. Delta Sahu MD Primary Care Provider Active Start: July 30, 2024 End: July 30, 2024 Dr. Delta Sahu MD Attending Provider Active Start: July 30, 2024 End: July 30, 2024 Dr. Delta Sahu MD Referring Provider Active Start: July 30, 2024 End: July 30, 2024 Team Status: Active Member Role/Relationship Status Dates Dr. Delta Sahu MD Primary Care Provider Active Start: August 22, 2024 Dr. Delta Sahu MD Attending Provider Active Start: August 22, 2024 Team Status: Inactive Member Role/Relationship Status Dates Dr. Delta Sahu MD Primary Care Provider Active Start: September 02, 2024 End: September 02, 2024 Dr. Delta Sahu MD Referring Provider Active Start: September 02, 2024 End: September 02, 2024 Meg Gusman MANAGER [employer], MANAGER [employer]-C Attending Provider Active Start: September 02, 2024 End: September 02, 2024 Team Status: Active Member Role/Relationship Status Dates Dr. Delta Sahu MD Primary Care Provider Active Start: September 26, 2024 Wilber HALL PA-C Attending Provider Active Start: September 26, 2024 Wilber HALL PA-C Referring Provider Active Start: September 26, 2024 Dr. Christopher Kruger MD Other Provider Active Sta rt: September 26, 2024 Team Status: Inactive Member Role/Relationship Status Dates Dr. Delta Sahu MD Primary Care Provider Active Start: September 30, 2024 End: October 02, 2024 Dr. Delta Sahu MD Attending Provider Active Start: September 30, 2024 End: October 02, 2024 Dr. Delta Sahu MD Referring Provider Active Start: September 30, 2024 End: October 02, 2024 Team Status: Inactive Member Role/Relationship Status Dates Dr. Delta Sahu MD Primary Care Provider Active Start: October 31, 2024 End: October 31, 2024 Dr. Delta Sahu MD Attending Provider Active Start: October 31, 2024 End: October 31, 2024 Dr. Delta Sahu MD Referring Provider Active Start: October 31, 2024 End: October 31, 2024 Team Status: Inactive Member Role/Relationship Status Dates Dr. Delta Sahu MD Primary Care Provider Active Start: November 01, 2024 End: November 01, 2024 ISABEL Godoy Attending Provider Active St art: November 01, 2024 End: November 01, 2024 ISABEL Godoy Referring Provider Active St art: November 01, 2024 End: November 01, 2024 Team Status: Active Member Role/Relationship Status Dates Dr. Delta Sahu MD Primary Care Provider Active Start: November 05, 2024 Dr. Delta Sahu MD Attending Provider Active Start: November 05, 2024 Dr. Delta Sahu MD Referring Provider Active Start: November 05, 2024 Team Status: Active Member Role/Relationship Status Dates Dr. Delta Sahu MD Primary care physician Activ e Team Status: Active Member Role/Relationship Status Dates Dr. Delta Sahu MD Primary care physician Activ e Start: August 22, 2024 Dr. Delta Sahu MD Attending physician Active Start: August 22, 2024 Team Status: Inactive Member Role/Relationship Status Dates Dr. Delta Sahu MD Primary care physician Activ e Start: September 02, 2024 End: September 02, 2024 Dr. Delta Sahu MD Referring Provider Active Start: September 02, 2024 End: September 02, 2024 Meg Gusman MANAGER [employer], MANAGER [employer]-C Attending physician Active Start: September 02, 2024 End: September 02, 2024 Team Status: Active Member Role/Relationship Status Dates Dr. Delta Sahu MD Primary care physician Activ e Start: September 26, 2024 Wilber HALL PA-C Attending physician Active Start: September 26, 2024 Wilber HALL PA-C Referring Provider Active Start: September 26, 2024 Dr. Christopher Kruger MD Nurse Practitioner Active Start: September 26, 2024 Team Status: Inactive Member Role/Relationship Status Dates Dr. Delta Sahu MD Primary care physician Activ e Start: September 30, 2024 End: October 02, 2024 Dr. Delta Sahu MD Attending physician Active Start: September 30, 2024 End: October 02, 2024 Dr. Delta Sahu MD Referring Provider Active Start: September 30, 2024 End: October 02, 2024 Team Status: Inactive Member Role/Relationship Status Dates Dr. Delta Sahu MD Primary care physician Activ e Start: October 31, 2024 End: October 31, 2024 Dr. Delta Sahu MD Attending physician Active Start: October 31, 2024 End: October 31, 2024 Dr. Delta Sahu MD Referring Provider Active Start: October 31, 2024 End: October 31, 2024 Team Status: Inactive Member Role/Relationship Status Dates Dr. Delta Sahu MD Primary care physician Activ e Start: November 01, 2024 End: November 01, 2024 ISABEL Godoy Attending physician Active S tart: November 01, 2024 End: November 01, 2024 ISABEL Godoy Referring Provider Active St art: November 01, 2024 End: November 01, 2024 Team Status: Inactive Member Role/Relationship Status Dates Dr. Delta Sahu MD Primary care physician Activ e Start: November 05, 2024 End: December 02, 2024 Dr. Delta Sahu MD Attending physician Active Start: November 05, 2024 End: December 02, 2024 Dr. Delta Sahu MD Referring Provider Active Start: November 05, 2024 End: December 02, 2024 Team Status: Inactive Member Role/Relationship Status Dates Dr. Delta Sahu MD Primary care physician Activ e Start: September 02, 2024 End: September 02, 2024 Dr. Delta Sahu MD Referring Provider Active Start: September 02, 2024 End: September 02, 2024 Meg Gusman MANAGER [employer], MANAGER [employer]-C Attending physician Active Start: September 02, 2024 End: September 02, 2024 Team Status: Inactive Member Role/Relationship Status Dates Dr. Delta Sahu MD Primary care physician Activ e Start: September 26, 2024 End: September 26, 2024 Wilber HALL PA-C Attending physician Active Start: September 26, 2024 End: September 26, 2024 Wilber HALL PA-C Referring Provider Active Start: September 26, 2024 End: September 26, 2024 Dr. Christopher Kruger MD Nurse Practitioner Active Start: September 26, 2024 End: September 26, 2024 Team Status: Inactive Member Role/Relationship Status Dates Dr. Delta Sahu MD Primary care physician Activ e Start: September 30, 2024 End: October 02, 2024 Dr. Delta Sahu MD Attending physician Active Start: September 30, 2024 End: October 02, 2024 Dr. Delta Sahu MD Referring Provider Active Start: September 30, 2024 End: October 02, 2024 Team Status: Inactive Member Role/Relationship Status Dates Dr. Delta Sahu MD Primary care physician Activ e Start: October 31, 2024 End: October 31, 2024 Dr. Delta Sahu MD Attending physician Active Start: October 31, 2024 End: October 31, 2024 Dr. Delta Sahu MD Referring Provider Active Start: October 31, 2024 End: October 31, 2024 Team Status: Inactive Member Role/Relationship Status Dates Dr. Delta Sahu MD Primary care physician Activ e Start: November 01, 2024 End: November 01, 2024 ISABEL Godoy Attending physician Active S tart: November 01, 2024 End: November 01, 2024 ISABEL Godoy Referring Provider Active St art: November 01, 2024 End: November 01, 2024 Team Status: Inactive Member Role/Relationship Status Dates Dr. Delta Sahu MD Primary care physician Activ e Start: November 05, 2024 End: December 02, 2024 Dr. Delta Sahu MD Attending physician Active Start: November 05, 2024 End: December 02, 2024 Dr. Delta Sahu MD Referring Provider Active Start: November 05, 2024 End: December 02, 2024 FOR RECORDS PERTAINING TO PATIENTS WHO ARE [...] BE BASED ON THE PRIMARY CLINICAL RECORDS. [facility] [employer] [facility]. provides no warranty or guarantee of the accuracy or completeness of information in this document.
--- NOTE | 2025-02-12 11:41 | STRESSREP_ITS ---
Stress Test Report Date: 02/12/2025 Procedure: Pharmacologic stress nuclear imaging study Indications: Dyspnea on exertion Consent: Per the patient Procedure: The patient underwent pharmacologic (Regadenoson 0.4mg ) evaluation with a peak heart rate of 93 beats per minute (64%predicted maximal heart rate) and a peak blood pressure of 168/84 mmHg. The baseline ECG demonstrated sinus rhythm. The peak pharmacologic ECG did not show any ischemic changes. There were no cardiac dysrhythmias pretest, during pharmacologic infusion, or recovery. There was no complaint of chest discomfort during pharmacologic infusion or recovery. The patient was injected with 14.4 millicuries of technetium 99m Cardiolite and subsequently rest SPECT Cardiolite nuclear imaging was obtained in the horizontal long, vertical long, and short axis views. The patient underwent pharmacologic (Regadenoson) evaluation. The patient was injected with 44.4 millicuries of technetium 99m Cardiolite and subsequently stress SPECT Cardiolite nuclear imaging was obtained in the horizontal long, vertical long, and short axis views. A gated Cardiolite study at peak stress was obtained. The examination was stopped secondary to completion of protocol. Rest and stress SPECT Cardiolite nuclear imaging status post realignment, normalization, and attenuation correction demonstrate mildly reduced perfusion of the anterior wall post pharmacological stress. There is end systolic thickening and brightening. The gated Cardiolite study demonstrates myocardial thickening and inward wall motion. The reported LVEF is 66%. Impression: 1. Pharmacologic (Regadenoson) evaluation 2. Peak pharmacologic ECG with no ischemic changes. 3. There were no cardiac dysrhythmias pretest, during pharmacologic infusion, or recovery. 5. Mildly reduced perfusion of the anterior wall post pharmacological stress, suggestive of mild anterior ischemia. 6. The gated Cardiolite study reports an LVEF of 66%. This note was generated with [employer] software. It may contain incorrect words, spelling, and punctuation that were not noted in checking the note before signing.
== END | disposition home or self-care (01) ==
LOC: CVS 07:04
PROVIDERS: PCP Internal Medicine; Referring Provider Student in an Organized Health Care Education/Training Program; Visit Provider Student in an Organized Health Care Education/Training Program
DX: R06.09 Other forms of dyspnea (principal); I25.10 Atherosclerotic heart disease of native coronary artery without angina pectoris
CPT/HCPCS: 78452; 93017; A9500; A4216; J2785

== ENCOUNTER → 2025-02-17 | Outpatient (CLI) | payer MEDICARE, OTHER, SELFPAY ==
[2025-02-17 15:12] LABS: CRP < 3.00 mg/L (0.0-3.0)
[2025-02-19 13:08] LABS: ANTINUCLEAR ANTIBODIES DIRECT Negative (Negative)
== END | disposition home or self-care (01) ==
LOC: LAB 13:15
PROVIDERS: PCP Internal Medicine; Referring Provider Internal Medicine; Visit Provider Internal Medicine
DX: M19.90 Unspecified osteoarthritis, unspecified site (principal)
CPT/HCPCS: 36415; 85652; 86038; 86140; 86200; 86225; 86235; 86431

== ENCOUNTER 2025-02-24 14:39 | Emergency (ER) | payer MEDICARE, OTHER, SELFPAY ==
[2025-02-24 14:42] VITALS: PULSE 81; RESP 18; TEMP 36.8; O2SAT 98; BMI 37.4
[2025-02-24 15:12] VITALS: BP 144/76
--- NOTE | 2025-02-24 15:15 | EKG12_ITS ---
Test Reason : general Blood Pressure : */* mmHG Vent. Rate : 75 BPM Atrial Rate : 75 BPM P-R Int : 178 ms QRS Dur : 130 ms QT Int : 424 ms P-R-T Axes : 63 -28 70 degrees QTcB Int : 473 ms Normal sinus rhythm Non-specific intra-ventricular conduction block Minimal voltage criteria for LVH, may be normal variant ( Nagi product ) Abnormal ECG Confirmed by Jayme Flores ([id number]), health editor LARS TONG ([id number]) on 02/27/2025 8:16:42 AM Referred By: Confirmed By: Jayme Flores
--- NOTE | 2025-02-24 15:16 | EX.ED.DYSGE1 ---
HPI History of Present Illness Chief Complaint: Cold Sx Detail of Chief Complaint: Not feeling well Informant: patient Narrative Narrative: Patient presents to the emergency department complaint not feeling well for about 4 or 5 days. She complains of increased sleep and some chills. She had flu shot recently initially she attributed to that. She has had some mild dyspnea. She saw her primary care physician today who referred her to the emergency department for evaluation. She denies chest pain or exertional symptoms. She has had some mild head congestion. Denies headache. She has had some body aches. Denies dysuria urgency or frequency. Denies fever. [facility] Medical History Concern about memory Type 2 diabetes mellitus Abnormal finding present on diagnostic imaging of uterus Health care maintenance Trigger finger, right Memory changes Left shoulder pain Chronic constipation OAB (overactive bladder) Umbilical discharge Lumbar stenosis Wears dentures Depression Arthritis Bladder disease High cholesterol Back pain Injury of head and neck Difficulty swallowing History of ulceration Heartburn Shortness of breath on exertion Non-smoker On home oxygen therapy Leg cramps History of Holter monitoring History of echocardiogram History of edema Cardiology follow-up encounter History of irregular heartbeat Hx of fracture of ankle Flu vaccine need Preoperative evaluation to rule out surgical contraindication Anxiety and depression Spinal stenosis Urinary frequency Venous insufficiency of both lower extremities Chronic abdominal pain Left arm pain Edema of left upper arm Leg pain, left Palpitations Essential hypertension Edema of both lower legs MRSA (methicillin resistant Staphylococcus aureus) infection Ulcer of left lower extremity with fat layer exposed Other acute postprocedural pain Thyroid disease Lupus Hearing problem Headache History of blood clots Open wound of left lower leg due to animal bite Abscess of left lower leg Cellulitis of left anterior lower leg Bitten by pig, initial encounter Skin necrosis Post-menopausal CPAP (continuous positive airway pressure) dependence On home oxygen therapy History of stress test Scarlet fever Morbid obesity Avulsion injury Animal bite Laceration COVID-19 Suspected COVID-19 virus infection Acute respiratory failure with hypoxia Dislocation of right ankle joint Syndesmotic disruption of right ankle Bimalleolar fracture of right ankle History of left heart catheterization (LHC) (~07/19/18) SOB (shortness of breath) HESHAM (obstructive sleep apnea) Pulmonary hypertension Essential hypertension Sebaceous cyst Osteoarthritis Urinary incontinence Mood disorder Hyperlipidemia Home Medications ?Medication ?Instructions ?Recorded ?Last Taken ?Type potassium chloride 20 mEq 20 meq PO DAILY #90 tabs 11/08/22 07/01/24 Rx tablet,extended release acetaminophen 650 mg 650 mg PO Q12H PRN pain 06/12/23 07/02/24 History tablet,extended release (Tylenol Arthritis Pain) furosemide 40 mg tablet 40 mg PO BID fluid #180 tabs 05/28/24 07/01/24 Rx amlodipine 5 mg tablet 5 mg PO DAILY #90 tabs 08/01/24 Unknown Rx sennosides 8.6 mg-docusate sodium 2 tab PO BID 09/02/24 Unknown History 50 mg tablet (Stool Softener-Laxative) Handicap Placard #1 ea 09/10/24 Unknown Rx mirabegron 50 mg tablet,extended 50 mg PO QDAY #30 tabs 10/31/24 Unknown Rx release 24 hr olmesartan 40 mg tablet 40 mg PO QHS #90 tabs 10/31/24 Unknown Rx blood sugar diagnostic (Accu-Chek #100 ea 11/14/24 Unknown Rx Guide test strips) blood-glucose meter (Accu-Chek #1 ea 11/14/24 Unknown Rx Guide Glucose Meter) lancets (Accu-Chek Softclix #100 ea 11/14/24 Unknown Rx Lancets) evolocumab 140 mg/mL subcutaneous 140 mg subcut Q2W #2 mL 01/26/25 Unknown Rx pen injector ([place]) aspirin 81 mg tablet,delayed 81 mg PO QDAY #90 tabs 02/16/25 Unknown Rx release (Adult Low Dose Aspirin) ibuprofen 800 mg tablet 800 mg PO ONCE 02/16/25 Unknown History sitagliptin 50 mg tablet 50 mg PO DAILY #30 tabs 02/16/25 Unknown Rx venlafaxine 150 mg 150 mg PO DAILY #90 caps 02/16/25 Unknown Rx capsule,extended release 24 hr Allergy/AdvReac Type Severity Reaction Status Date / Time codeine Allergy Mild roaring Verified 02/24/25 14:43 sounds, hives, headache Penicillins Allergy Mild hives Verified 02/24/25 14:43 Family History Father Heart disease Hypertension Hyperlipidemia Melanoma Myocardial infarction High cholesterol Skin cancer Mother Diabetes Breast cancer Heart disease Hypertension Hyperlipidemia Hx of blood clots Arthritis High cholesterol Sister CVA (cerebral vascular accident) Diabetes Arthritis Gastric ulcer Autoimmune disease Other Osteoporosis Parkinsons disease Surgical History Status post total left knee replacement History of lumbar surgery Hx of colonoscopy History of surgery on lower extremity Hx of fusion of cervical spine History of excision of lesion H/O cardiac catheterization S/P tubal ligation History of tonsillectomy exploratory surgery S/P right knee arthroscopy S/P dilation and curettage History of S/P partial thyroidectomy Social History (Updated 02/24/25 @ 14:56 by Kylah Rojas) household members: spouse housing: house Smoking Status: Never smoker alcohol intake: never substance use type: does not use caffeine: Yes eating out: rarely or never what type of physical activity do you participate in: none seatbelt use: always do you feel safe at home: Yes additional social history: [employer] Patient is retired Does Not Take Aspirin Does Take Ibuprofen as needed ROS ROS ED Review of Systems ROS Unobtainable: other Constitutional Constitutional ED: Reports lethargy; Denies chills, fever(s), sweats or weight loss Eyes Eyes: Denies blurry vision, change in vision or diplopia ENT ENT ED: Denies rhinorrhea or sore throat Cardiovascular Cardiovascular: Denies orthopnea or racing heartbeat Respiratory/Chest Respiratory/Chest: Reports dyspnea; Denies cough, dyspnea on exertion, orthopnea or sputum Gastrointestinal Gastrointestinal: Denies abdominal pain, diarrhea, nausea or vomiting Genitourinary Genitourinary ED: Denies dysuria, hematuria or urinary frequency Musculoskeletal Musculoskeletal: Reports myalgias; Denies arthralgias, back pain or neck pain Integumentary Denies abscess, Abrasions or rash Neurologic Neurologic: Denies headache(s) or weakness Psychiatric Psychiatric: Denies anxiety, depression or suicidal thoughts Endocrine Endocrinology: Denies polydipsia, polyphagia or polyuria Hematologic/Lymphatic Hematologic/Lymphatic: Denies easy bleeding, easy bruising or lymphadenopathy Allergic/Immunologic Allergic/Immunologic ED: Denies mouth swelling, tongue swelling or urticaria EXAM Physical Exam Const Vital Signs: 02/24/25 14:42 02/24/25 14:55 02/24/25 15:12 Temperature 98.2 F Temperature Source Oral Pulse Rate 81 Respiratory Rate 18 Respiratory Effort Normal Non-Labored Respiratory Pattern Normal Blood Pressure 144/76 H Blood Pressure Mean 98 Pulse Ox 98 Oxygen Delivery Method Room Air Positive well nourished and well developed General Appearance ED: well developed and NAD HEENT Reports TM's clear and moist mucous membranes normocephalic and atraumatic; Negative for trauma or tenderness Tympanic Membrane ED: Yes TM's clear Eyes PERRL and EOMs intact bilaterally General Eye ED: Negative for pale conjunctiva or scleral icterus Neck no lymphadenopathy, supple and no JVD General: Negative for tenderness Chest Wall inspection of chest normal and palpation of chest normal Chest: Negative for tenderness Resp normal respiratory effort and clear to auscultation bilaterally Effort and Inspection: Negative for respiratory distress or pain with movement Auscultation: Negative for rhonchi, wheezes or diminished lung sounds Cardio regular rate, regular rhythm, S1 normal heart sound, S2 normal heart sound and no murmurs Peripheral Pulses: pulses 2+ throughout GI normal to inspection, nondistended, normoactive bowel sounds, soft to palpation, non-tender, non-distended and no masses Back/Spine no CVA tenderness and no thoracic nor lumbar tenderness Extremity normal to inspection General Extremety ED: Negative for edema General Extremity: Negative for edema Neuro oriented x3, CN's II-XII intact bilaterally, no sensory deficits noted and gait normal Sensorium / Orientation: awake, alert, oriented to person, oriented to place and oriented to time Motor Exam: strength 5/5 throughout and strength abnormal Psych mental status grossly normal Skin no rashes or lesions noted and no wounds MDM MDM MDM Narrative Medical decision making narrative: Patient presents with symptoms about 5 days of upper respiratory infection. She has had some chills and increased sleep. Body aches and congestion. Clinically looks well. EKG obtained on arrival shows sinus rhythm with rate of [address] changes. CBC with differential obtained showed white count of 5.9 with hemoglobin 14.9 and platelet count 345. Chemistries unremarkable. Urinalysis was normal. COVID flu and RSV testing was obtained and patient was positive for COVID. 1 view chest x-ray was unremarkable. At this point patient had symptoms for 5 days and would feel she needs any further treatment and recommended fluids and Motrin or Tylenol for discomfort. Advised to follow-up with primary care physician within next 5 to 7 days. She is to return if increasing shortness of breath or condition should worsen anyway. Lab Data Attestation: I reviewed the patient's lab results. Labs: Laboratory Results - last 24 hr 02/24/25 15:36 WBC 5.9 RBC 4.82 Hgb 14.9 Hct 44.7 MCV 92.7 MCH 30.9 MCHC 33.3 RDW Std Deviation 41.4 RDW Coeff of Kristie 12.1 Plt Count 345 MPV 9.7 Immature Gran % (Auto) 0.200 Neut % (Auto) 49.4 Lymph % (Auto) 34.5 [place] % (Auto) 14.9 H Eos % (Auto) 0.5 Baso % (Auto) 0.5 Absolute Neuts (auto) 2.9 Absolute Lymphs (auto) 2.02 Nucleated RBC % 0 Sodium 137 Potassium 3.5 Chloride 103 Carbon Dioxide 23.4 Anion Gap 10 BUN 13 Creatinine 0.69 L Estim Creat Clear Calc 77.06 Est GFR (MDRD) Non-Af 91 BUN/Creatinine Ratio 18.7 Glucose 113 H Calcium 8.9 Troponin T High Sens 10 Urine Color Yellow Urine Clarity Clear Urine pH 6.0 Ur Specific [place] 1.020 Urine Protein 30 H Urine Glucose (UA) Normal Urine Ketones Negative Urine Occult Blood Negative Urine Nitrite Negative Urine Bilirubin Negative Urine Urobilinogen Normal Ur Leukocyte Esterase 25 H Urine RBC 0 SEEN Urine WBC 0-5 SEEN Ur Squamous Epith Cells 5-10 SEEN Urine Bacteria 0 SEEN Urine Mucus 0 SEEN Radiography Diagnostic Testing: Clinical Impression(s) from Imaging Studies Chest X-Ray 02/24/25 15:35 IMPRESSION: No Acute Findings. Reading Location: [facility] 1 view chest x-ray obtained interpreted by myself as no evidence of infiltrate or pneumothorax or acute disease process. Radiology in agreement. EKG Initial EKG: Attestation: I personally reviewed and interpreted this EKG as follows: Comments: Sinus rhythm with ventricular rate of 75 bpm with no acute ST segment change Discharge Plan Triage Chief Complaint: Cold Sx ED Provider: Harry Kent Dx/Rx/DC Orders Clinical Impression: COVID-19 Instructions: Caring for Someone Who Has COVID-19 Prescriptions: No Action potassium chloride 20 mEq tablet extended release 20 meq PO DAILY Qty: 90 3RF acetaminophen [Tylenol Arthritis Pain] 650 mg tablet extended release 650 mg PO Q12H PRN (Reason: pain) sennosides-docusate sodium [Stool Softener-Laxative] 8.6-50 mg tablet 2 tab PO BID Repatha SureClick 140 mg/mL pen injector 140 mg subcut Q2W Qty: 2 11RF mirabegron 50 mg tablet extended release 24 hr 50 mg PO QDAY Qty: 30 3RF olmesartan 40 mg tablet 40 mg PO QHS Qty: 90 1RF ibuprofen 800 mg tablet 800 mg PO ONCE sitagliptin 50 mg tablet 50 mg PO DAILY Qty: 30 3RF venlafaxine 150 mg capsule,extended release 24hr 150 mg PO DAILY Qty: 90 1RF aspirin [Adult Low Dose Aspirin] 81 mg tablet,delayed release (DR/EC) 81 mg PO QDAY Qty: 90 3RF furosemide 40 mg tablet 40 mg PO BID Qty: 180 3RF amlodipine 5 mg tablet 5 mg PO DAILY Qty: 90 3RF (DME) Handicap Placard See Rx Instructions .ROUTE .MEDSUPPLY Qty: 1 0RF Rx Instructions: As directed, length of time 3 years (DME) Accu-Chek Guide test strips Strip See Rx Instructions .Route Qty: 100 2RF Rx Instructions: For use for glucose monitoring 1 time daily (DME) blood-glucose meter [Accu-Chek Guide Glucose Meter] Misc See Rx Instructions .Route Qty: 1 0RF Rx Instructions: to be used with glucose monitoring 1 time daily (DME) lancets [Accu-Chek Softclix Lancets] Misc See Rx Instructions .Route Qty: 100 3RF Rx Instructions: Use to check blood glucose 1 time per day for DMII. Primary Care Provider: Selena Sahu Referrals: Selena Sahu MD [Primary Care Provider, Internal Medicine] - 5-7 Days Print Language: Wolof Disposition Disposition: Home, Self Care
--- NOTE | 2025-02-24 15:35 | RAD_ITS ---
PROCEDURE: CHEST 1 VIEW (PORTABLE) 02/24/2025 REASON FOR EXAM: DYSPNEA TECHNIQUE: Frontal view of the chest. COMPARISON: 02/05/2023 FINDINGS: Hardware: None. Heart: The heart size is normal. Lungs: The lungs are clear. No pneumothorax or pleural effusion. Bones: The bones are unremarkable. RAD/Chest 1 View (Portable) IMPRESSION: No Acute Findings. Reading [facility]
[2025-02-24 15:40] LABS: Mucous, Urine 0 SEEN /hpf (<or=2+); Red Blood Cells-Urine 0 SEEN /hpf (0-5)
[2025-02-24 15:44] LABS: Color, Urine Yellow (Yellow); Glucose, Dipstick Normal (Normal); Hematocrit 44.7 % (37-47); Hemoglobin 14.9 g/dL (12.0-15.0); Immature Granulocytes Count 0.010 X10^3/uL (0.0-0.0); Ketone-Dipstick Negative (Negative); Leukocyte Esterase-Dipstick 25 /ul (Negative); Mean Corp Hgb Conc 33.3 g/dL (32-36); Mean Corpuscular Volume 92.7 fL (81-99); Mean Platelet Vol. 9.7 fl (6.2-12.0); NRBC Flagged by Analyzer 0 % (0-5); Nitrite-Dipstick Negative (Negative); Occult Blood-Urine Negative /ul (Negative); Platelet Count 345 K/mm3 (150-450); Protein-Dipstick 30 mg/dl (Negative); RBC Distribution Width CV 12.1 % (11.6-14.6); RBC Distribution Width SD 41.4 fl (35.1-43.9); Red Blood Count 4.82 M/mm3 (4.2-5.4); Specific Gravity, Urine 1.020 (1.002-1.030); Urine Bilirubin Dipstick Negative (Negative); White Blood Count 5.9 K/mm3 (4.4-11.0)
[2025-02-24 15:53] LABS: Squamous Epithelial Cells - UA 5-10 SEEN /hpf (5-10)
[2025-02-24 16:34] LABS: Anion Gap 10 (7-18); BUN 13 mg/dL (4-19); BUN/Creat Ratio 18.7 RATIO (10-20); Calcium,Total 8.9 mg/dL (7.6-11.0); Carbon Dioxide 23.4 mmol/L (20.0-29.0); Chloride 103 mmol/L (96-106); Estimated Creatinine Clearance 77.06 ml/min (50-250); Glucose 113 mg/dL (70-99); Potassium 3.5 mmol/L (3.5-5.1)
[2025-02-24 16:49] LABS: Troponin T High Sensitivity 10 ng/L (<=14)
[2025-02-24 17:14] VITALS: BP 144/76; PULSE 80; RESP 16; TEMP 36.6; O2SAT 99
== END 2025-02-24 17:18 | disposition home or self-care (01) ==
PROVIDERS: Emergency Provider Emergency Medicine; PCP Internal Medicine; Visit Provider Emergency Medicine
DX: U07.1 COVID-19 (principal); E11.9 Type 2 diabetes mellitus without complications; G47.33 Obstructive sleep apnea (adult) (pediatric)
CPT/HCPCS: 71045; 80048; 81001; 84484; 85025; 87631; 93005; 99283